=== PATIENT | female | born 1955 | race Caucasian/White ===

== ENCOUNTER 2021-10-13 12:06 | Outpatient (CLI) | payer OTHER, SELFPAY | END 2021-10-13 12:07 | disposition home or self-care (01) | LOC: CHSLAB 12:13 | PROVIDERS: PCP Internal Medicine; Visit Provider Specialist | DX: L81.4 Other melanin hyperpigmentation (principal) | CPT/HCPCS: 88305 ==

== ENCOUNTER 2022-08-26 01:00 | Inpatient (IN) | payer MEDICARE, OTHER, SELFPAY ==
[2022-08-26] VITALS (24 sets, daily range): BP systolic 103–148; BP diastolic 54–97; PULSE 78–119; RESP 16–28; TEMP 36.2–36.6; O2SAT 89–96; BMI 21.8
--- NOTE | ~2022-08-26 | XR_ITS ---
EXAMINATION: XR chest 1V portable DATE: 08/26/2022 01:20 INDICATION: Shortness of breath. TECHNIQUE: A single frontal view of the chest was obtained. COMPARISON: Chest CT 08/26/2022 FINDINGS: The chest demonstrates clear lungs without pneumonia, pleural effusion, or pneumothorax. Th e heart size is normal. IMPRESSION: 1. No acute cardiopulmonary disease. Reviewed, dictated and finalized at location A.
--- NOTE | ~2022-08-26 | CT_ITS ---
EXAMINATION: CTA chest PE protocol DATE: 08/26/2022 02:52 INDICATION: Shortness of breath. TECHNIQUE: Computed tomography angiography (CTA) of the chest was performed with 100 mL Omnipaque-350 intravenous contrast timed to evaluate the pulmonary arteries. Coronal maximum intensity projection 3D-reconstructions were created by the technologist. Automated exposure control and iterative reconst ruction technique were employed. The dose-length product was 183.77 mGy-cm. COMPARISON: Chest single view 08/26/2022 FINDINGS: There is mild emphysema. There is mild scarring at the lung apices. There is mild atelectas is bilaterally. There is material in the bronchi in the inferior lungs. No pleural effusion. The hear t size is normal. No pericardial effusion. There is no pulmonary embolus. There is kyphosis of thorac ic spine with mild chronic anterior wedging of multiple vertebral bodies and severe spondylosis. IMPRESSION: 1. No pulmonary embolus. Sensitivity is moderately decreased by motion artifact. 2. Material in bronchi in the inferior lungs, consistent with mucous plugging versus aspiration. 3. Mild emphysema. Reviewed, dictated and finalized at location A. IMPRESSION: 1. No pulmonary embolus. Sensitivity is moderately decreased by motion artifact . 2. Material in bronchi in the inferior lungs, consistent with mucous plugging v ersus aspiration. 3. Mild emphysema.
--- NOTE | 2022-08-26 01:08 | ECG_ITS ---
Measurements Intervals [place] Rate: 103 P: 76 AL: 171 QRS: 19 QRSD: 84 T: 56 QT: 357 QTc: 468 Interpretive Statements SINUS TACHYCARDIA CANNOT RULE OUT SEPTAL INFARCT, AGE INDETERMINATE BASELINE ARTIFACT- I, II, III, AVR, AVL, AVF, V1-V2, V4-V6 ABNORMAL ECG NO PREVIOUS ECG AVAILABLE FOR COMPARISON Electronically Signed On 08-26-2022 6:42:50 CDT by Ian Reyez D.O.
--- NOTE | 2022-08-26 01:13 | ED.SOB ---
HPI - SOB/Dyspnea General Chief Complaint: Shortness of Breath/Dyspnea Stated Complaint: Sob Source: patient Mode of arrival: EMS Limitations: no limitations History of Present Illness HPI Narrative: PATIENT IS A 67-YEAR-OLD WHITE FEMALE EX-SMOKER WITH EMPHYSEMA IS BROUGHT IN BY EMS COMPLAINING OF WAKING UP AT NIGHT JUST PRIOR TO ADMISSION SHORT OF BREATH WHICH SHE HAS BEEN DOING ON OFF EVERY 3 OR 4 DAYS FOR THE LAST 3 MONTHS SINCE SHE HAD SINUS SURGERY May THAT WAS CAUSING POSTNASAL DRIP AND ACUTE BRONCHITIS. PATIENT WAS BROUGHT BY EMS ROOM AIR AT HOME WAS 85% SINUS TACH ON TELEMETRY AT A RATE OF [address] ELEVATIONS PER EMS PATIENT IS PLACED ON CPAP HER O2 SAT WENT UP TO 96% SHE IS SOMEWHAT HYPERTENSIVE PER EMS SHE WAS PLACED ON A CPAP OF 5 SHE GOT ABOUT HALF OF A ALBUTEROL NEBULIZER TREATMENT AND WAS TRIPODING WHEN EMS ARRIVED AT THE HOME. SHE COMPLAINS OF CHEST PRESSURE RETROSTERNAL NONRADIATING. SHE HAS HAD A CHRONIC COUGH PRODUCTIVE OF CLEAR SPUTUM. SHE DENIES ANY HISTORY OF HEART DISEASE . SHE HAS NOT SMOKED THIS YEAR. SHE SAID YESTERDAY SHE DID FINE DURING THE DAY AND WAS NOT SHORT OF BREATH. PRIVATE MEDICAL DOCTOR IS DR. DOW. Related Data Home Medications Medication Instructions Recorded Confirmed albuterol sulfate 90 mcg/actuation 2 puff inhalation DIRECTED 08/26/22 08/26/22 aerosol inhaler amlodipine 5 mg tablet 5 mg PO DIRECTED 08/26/22 08/26/22 ipratropium 0.5 mg-albuterol 3 mg 3 ml inhalation DIRECTED 08/26/22 08/26/22 (2.5 mg base)/3 mL nebulization soln ipratropium 0.5 mg-albuterol 3 mg 3 ml inhalation QID 08/26/22 08/26/22 (2.5 mg base)/3 mL nebulization soln Allergies Allergy/AdvReac Type Severity Reaction Status Date / Time No Known Allergies Allergy Verified 08/26/22 01:20 Review of Systems Review of Systems: All systems reviewed & are unremarkable except as noted in HPI and below Constitutional: Constitutional: Reports no additional constitutional complaints Eyes: Eyes: Reports no additional eye complaints ENT: Reports system reviewed and no additional complaints, except as documented, Denies epistaxis, Reports nasal congestion and Denies sore throat Cardiovascular: Cardiovascular: Reports no additional cardiovascular complaints and Reports chest pain Respiratory: Respiratory: Reports as per HPI, Reports no additional respiratory complaints, Reports cough, Reports dyspnea and Reports wheezing Comments: ON 2 TYPES OF NEBULIZER TREATMENTS 1 SHE TAKES 4 TIMES A DAY AND ANOTHER SHE TAKES TWICE A DAY. SHE IS ALSO ON A METERED-DOSE INHALER OF ALBUTEROL. Gastrointestinal: Gastrointestinal: Reports no additional gastrointestinal complaints Genitourinary: Genitourinary: Reports no additional female genitourinary complaints Musculoskeletal: Musculoskeletal: Reports no additional musculoskeletal complaints Integumentary/Breasts: Skin/Breast: Reports system reviewed and no additional complaints, except as docu Neurologic: Reports system reviewed and no additional complaints, except as documented Psychiatric: Psychiatric: Reports no additional psychiatric complaints Hematologic/Lymphatic: Hematologic/Lymphatic: Reports no additional hematologic/lymphatic complaints PMFSH Past Medical History Medical History (Updated 08/26/22 @ 03:52 by Dane Pinto MD) Emphysema of lung Hypertension Surgical History Surgical History (Updated 08/26/22 @ 01:21 by Dane Pinto MD) Hx of sinus surgery Social History Social History (Updated 08/26/22 @ 01:43 by Dane Pinto MD) Social History: HISTORY OF SMOKING IN THE PAST Comments PATIENT HAS NOT SMOKED THIS YEAR. Exam Const: Orientation/consciousness: patient oriented x3 Limitations: no limitations Other: PATIENT IS AN ELDERLY WHITE FEMALE SHE APPEARS OLDER THAN HER STATED AGE. EYES CONJUNCTIVA PINK SCLERA NOT ICTERIC OROPHARYNX CLEAR WITH MOIST MUCOUS MEMBRANES NEC
[2022-08-26] MEDS: IPRATROPIUM 0.5 MG/ALBUTEROL SULFATE 2.5 MG AMPUL.NEB 3 ML INHALATION ×3 (01:21→23:19)
[2022-08-26 01:29] LABS: Hematocrit 43.1 % (35.0-42.0); Hemoglobin 14.4 g/dL (11.7-13.8); Mean Corpuscular HGB Conc 33.4 g/dL (32.0-36.0); Mean Corpuscular Hemoglobin 29.8 pg (27.0-31.0); Mean Platelet Volume 10.8 fl (9.2-11.8); Platelet Count Result 245 K/mm3 (150-420); Red Blood Count 4.84 M/mm3 (4.20-5.40); Red Cell Distribution Width 14.6 % (11.6-14.4); White Blood Count 8.5 K/mm3 (4.8-10.8)
[2022-08-26] MEDS: methylPREDNISolone SOD SUCC 125 MG VIAL IV PUSH (01:32)
[2022-08-26 01:44] LABS: INR 1.1; Partial Thromboplastin Time 27.1 SEC (23.90-30.70); Prothrombin Time 11.5 Seconds (9.50-12.10)
[2022-08-26 01:45] LABS: D Dimer 0.88 mg/L (0.19-0.50)
[2022-08-26] MEDS: ALBUTEROL SULFATE NEB 2.5 MG/3 ML INH 10 MG INHALATION (01:50)
[2022-08-26 01:55] LABS: Alanine Aminotransferase 15 U/L (14-59); Albumin Level 3.5 g/dL (3.4-5.0); Alkaline Phosphatase 95 U/L (46-116); Anion Gap 11 mmol/L (8-16); Aspartate Amino Transferase 18 U/L (15-37); Bilirubin,Total 0.5 mg/dL (0.00-1.00); Blood Urea Nitrogen 23 mg/dL (7-18); Carbon Dioxide 24 mmol/L (21-32); Chloride 106 mmol/L (98-108); Estimated Glomerular Filt Rate > 60; Glucose 114 mg/dL (70-99); Osmolality Calculated 296 mOsm/kg (285-295); Sodium 141 mmol/L (136-145); Troponin I 17.2 ng/L (0.00-60.4)
[2022-08-26 02:02] LABS: HCO3 ABG 21.1 mmol/L (23-29); Oxygen Content ABG 19.8 %vol (16.0-22.0); Oxygen Saturation ABG 92.2 % (95-97); Oxyhemoglobin 91.6 % (94-100); PCO2 ABG 32.1 mmHg (35-45); PO2 ABG 61.1 mmHg (75-85); Total Hemoglobin 15.4 g/dL (12.0-18.0); pH ABG 7.44 (7.35-7.45)
[2022-08-26 02:04] LABS: Modified Allen's Test Pass; Site Drawn RIGHT RADIAL
[2022-08-26 02:05] LABS: Device SIMPLE MASK
[2022-08-26 02:06] LABS: NT Pro B Type Natriuretic Pept 37 pg/mL (0-125)
[2022-08-26 02:08] LABS: Influenza A QL RT-PCR Negative (Negative); Influenza B QL RT-PCR Negative (Negative); SARS-CoV-2 RNA PCR Positive (Negative)
[2022-08-26] MEDS: LORazepam INJ (*CRX) 2 MG/ML VIAL 0.5 MG IV PUSH (02:08)
[2022-08-26] MEDS: ENOXAPARIN 100 MG/ML SYRINGE 60 MG SUB-Q (02:08)
[2022-08-26] MEDS: POTASSIUM BICARBONATE 25 MEQ TABEF 50 MEQ PO (03:10)
--- NOTE | 2022-08-26 04:22 | PC.NURSE ---
RN calls to get bed from floor charge nurse. Pt is placed into bed 209. RN also gives RN to RN report to Zara SUAREZ. Pt being prepped for transport upstairs.
--- NOTE | 2022-08-26 04:59 | PC.NURSE ---
Patient admitted to room 209 per wheelchair from the ER, is alert and oriented times 4.
[2022-08-26] MEDS: SALINE LOCK FLUSH 2 ML IV PUSH ×2 (06:07→23:40)
[2022-08-26] MEDS: ALBUTEROL SULFATE (*SP) INHALER 2 PUFF INHALATION ×4 (06:08→22:07)
--- NOTE | 2022-08-26 07:48 | PM.IMHP ---
H&P: HPI History of Present Illness Date/Time: 08/26/22 07:48 Chief Complaint: Shortness of breath, COVID-positive Narrative: This is 67-year-old female with a past medical history of emphysema according to the records show that she was brought in by EMS complaining of waking up the past few days with shortness of breath. According to patient she had nasal surgery 3 to 4 months ago and she has been waking up with postnasal drip and has had acute bronchitis. While patient was in the emergency room and with EMS was requiring CPAP and currently is on high flow oxygen due to shortness of breath. Patient has a past medical history of hypertension is a ex-smoker, acute on chronic back bronchitis. Patient states that she has been febrile she just has not feeling well, denies any nausea nor vomiting only shortness of breath especially when she goes into a coughing spell. According to records patient was tripoding and EMS while she was getting a breathing treatment only received about half. Patient is being admitted for COVID-19 she was slightly hypokalemic at 3.0 sodium 141, BUN 23, creatinine 0.81, WBCs 8.5, hemoglobin 14.4, [place] 43.1, platelet 241. I did order some troponins for patient as well as a CRP just for baseline. Patient does not require oxygen at home and currently is on 5 L nasal cannula satting around 92 to 93% high flow. Past surgical history is nasal surgery, hysterectomy. Currently stable Review of Systems Review of Systems: Shortness of breath All systems reviewed & are unremarkable except as noted in HPI and below PMFSH Past Medical History Medical History Emphysema of lung Hypertension Surgical History Surgical History Hx of sinus surgery Social History Social History Social History: HISTORY OF SMOKING IN THE PAST Smoking status: Former smoker Tobacco type: cigarettes Second hand tobacco smoke exposure: No Alcohol intake: never Substance use: never Spiritual care concerns: No Comments At time as signature, I have reviewed and agree with nursing past medical, social, surgical and family history. Please see nursing chart for further information. There is no relevant family history pertinent to the presenting complaint. Meds Home Medications and Allergies Home Medications Medication Instructions Recorded Confirmed Type albuterol sulfate 90 mcg/actuation 2 puff inhalation DIRECTED 08/26/22 08/26/22 History aerosol inhaler amlodipine 5 mg tablet 5 mg PO DIRECTED 08/26/22 08/26/22 History aspirin 81 mg capsule 81 mg PO DAILY 08/26/22 08/26/22 History famotidine 20 mg tablet 20 mg PO DAILY 08/26/22 08/26/22 History ipratropium 0.5 mg-albuterol 3 mg 3 ml inhalation DIRECTED 08/26/22 08/26/22 History (2.5 mg base)/3 mL nebulization soln ipratropium 0.5 mg-albuterol 3 mg 3 ml inhalation QID 08/26/22 08/26/22 History (2.5 mg base)/3 mL nebulization soln Allergies Allergy/AdvReac Type Severity Reaction Status Date / Time No Known Allergies Allergy Verified 08/26/22 01:20 Vital Signs Vital Signs - 24 hr 08/26/22 01:22 08/26/22 01:12 08/26/22 01:00 Temperature Pulse Rate 107 H 103 H 103 H Respiratory Rate 24 H 28 H Blood Pressure Pulse Oximetry 90 89 L Oxygen Delivery Nasal Cannula Oxygen Flow Rate 5 4 08/26/22 01:00 08/26/22 01:37 08/26/22 01:37 Temperature 97.6 F Pulse Rate 103 H 106 H 106 H Respiratory Rate 28 H 24 H Blood Pressure 120/75 Pulse Oximetry 93 91 91 Oxygen Delivery EMS-CPAP High Flow Nasal Cannula Oxygen Flow Rate 10 9 08/26/22 01:53 08/26/22 02:25 08/26/22 01:45 Temperature Pulse Rate 116 H 100 115 H Respiratory Rate 24 H 20 28 H Blood Pressure Pulse Oximetry 92 92 Oxygen Delivery High Flow Nasal Cannula Oxygen Flow R
[2022-08-26 08:30] LABS: Lactic Acid Reflex 2.2 mmol/L (0.4-2.0)
[2022-08-26 08:31] LABS: CRP < 0.5 mg/dL (0.0-0.9); Troponin I 55.3 ng/L (0.00-60.4)
[2022-08-26] MEDS: amLODIPine BESYLATE 5 MG TABLET PO (09:25)
[2022-08-26] MEDS: ASPIRIN 81 MG ENTERIC TABLET PO (09:25)
[2022-08-26] MEDS: FAMOTIDINE 20 MG TABLET PO ×2 (09:26→20:43)
[2022-08-26] MEDS: HEPARIN SODIUM 5,000 UNITS/ML VIAL 5000 UNITS SUB-Q ×2 (09:26→20:42)
[2022-08-26] MEDS: POTASSIUM CHLORIDE 20 MEQ TABLET PO (09:35)
[2022-08-26 11:10] LABS: Reflex Lactic Acid Yes or No Add Lactic
[2022-08-26 11:52] LABS: Lactic Acid 3.3 mmol/L (0.4-2.0)
--- NOTE | 2022-08-26 20:30 | PC.NURSE ---
IV site to RAC noted to be infiltrated when flush attempted, new IV site to LFA initiated, 22 gauge, by Donald SUAREZ, tolerated well. IV to RAC discontinued.
[2022-08-26] MEDS: ACETAMINOPHEN 325 MG TABLET 650 MG PO (20:43)
[2022-08-27] VITALS (19 sets, daily range): BP systolic 102–136; BP diastolic 46–78; PULSE 74–118; RESP 16–24; TEMP 36.4–36.7; O2SAT 87–99
[2022-08-27] MEDS: IPRATROPIUM 0.5 MG/ALBUTEROL SULFATE 2.5 MG AMPUL.NEB 3 ML INHALATION ×3 (05:32→19:17)
[2022-08-27] MEDS: SALINE LOCK FLUSH 2 ML IV PUSH ×3 (06:02→21:24)
[2022-08-27] MEDS: ALBUTEROL SULFATE (*SP) INHALER 2 PUFF INHALATION ×4 (06:02→21:23)
--- NOTE | 2022-08-27 06:20 | PC.NURSE ---
Venturi mask charted in error, pt utilizing simple O2 mask.
--- NOTE | 2022-08-27 07:16 | PM.IMPN ---
Progress Note: A&P Assessment and Plan (1) COVID-19 virus infection: Code(s): U07.1 - COVID-19 Status: Acute Assessment and Plan: Decadron 6 mg daily Oxygen 5 L high flow Inhalers As needed nebulizer in case patient gets in respiratory distress respiratory therapist will decide if is indicated Azithromycin prophylactically started in the emergency room I-S Cough medicine for cough Treat symptoms Heparin twice daily Troponin level and CRP for baseline Walk Study today (2) Acute exacerbation of emphysema: Code(s): J43.9 - Emphysema, unspecified Status: Acute Assessment and Plan: Decadron 6 mg daily Inhalers Nebulizer see above I-S Cough medicine for cough (3) Acute hypokalemia: Code(s): E87.6 - Hypokalemia Status: Acute Assessment and Plan: 3.0 Will replenish potassium Will monitor labs Patient on telemetry for the next 24 hours Subjective Date/time seen: 08/27/22 07:16 Interval history: Patient still requiring 7 L of oxygen but states she is feeling a lot better than yesterday patient saturations a lot better at 96% when I went in to assess patient. Patient states that she is able to cough up stuff now and feels like she is able to move a lot more air. Patient basically was wanting to go home had a long discussion about not rushing in and is staying for another day inform patient we need to do a walk study to ensure that she does not need oxygen at home especially since she is requiring so much oxygen at this time. We will continue plan of care patient needs to be up in recliner chair and continue using I-S Exam Narrative: GENERAL: Ill appearing, appears older than stated age well-nourished, and in no acute distress. HEAD:Normocephalic EYES: PERRLA ENT: Nares clear, no rhinorrhea or epistaxis. Mucous membranes moist. CHEST: Diminished to auscultation with improvement moving more air. mild distress on 7 L high flow oxygen s. HEART: Tachycardic regular rate and rhythm. . Normal peripheral pulses. ABDOMEN: Soft, nontender, nondistended, normal active bowel sounds. EXTREMITIES: Normal range of motion. No edema. SKIN: Warm, dry, no rash. NEURO: No focal deficits. Alert and oriented x3. Objective Data Vital Signs Vital Signs: Vital Signs - 24 hr 08/26/22 08:00 08/26/22 08:00 08/26/22 08:00 Temperature 97.5 F L Pulse Rate 78 89 89 Respiratory Rate 18 18 Blood Pressure 103/65 Pulse Oximetry 93 93 Oxygen Delivery Nasal Cannula Nasal Cannula Oxygen Flow Rate 5 5 08/26/22 12:00 08/26/22 12:00 08/26/22 16:57 Temperature 97.8 F Pulse Rate 100 89 91 Respiratory Rate 18 18 Blood Pressure 115/78 Pulse Oximetry 89 L 91 Oxygen Delivery High Flow Therapy with Na Oxygen Flow Rate 5 6 08/26/22 17:05 08/26/22 16:00 08/26/22 16:00 Temperature 97.8 F Pulse Rate 92 87 96 Respiratory Rate 18 20 Blood Pressure 115/69 Pulse Oximetry 96 91 Oxygen Delivery Venturi Mask Oxygen Flow Rate 6 6.5 08/26/22 20:00 08/26/22 20:00 08/26/22 20:00 Temperature 97.8 F Pulse Rate 102 H 102 H 102 H Respiratory Rate 24 H 24 H Blood Pressure 148/83 H Pulse Oximetry 93 93 Oxygen Delivery Venturi Mask Venturi Mask Oxygen Flow Rate 7 7 08/27/22 00:00 08/27/22 00:00 08/27/22 04:00 Temperature 97.6 F Pulse Rate 103 H 103 H 74 Respiratory Rate 22 H Blood Pressure 136/78 Pulse Oximetry 93 Oxygen Delivery Venturi Mask Oxygen Flow Rate 7 08/27/22 04:00 08/27/22 05:35 08/27/22 05:38 Temperature 97.5 F L Pulse Rate 74 99 99 Respiratory Rate 20 20 20 Blood Pressure 109/67 Pulse Oximetry 93 93 93 Oxygen Delivery Venturi Mask Simple Face Mask Oxygen Flow Rate 7 7 7 08/27/22 05:44 Temperature Pulse Rate 96 Respiratory Rate 20 Blood Pressure Pulse Oximetry 99 Oxygen Delivery Oxygen Flow Rate 7 Intake/Output Intake/Output: Intake & Output 08/24/22 08/25/22 08/26/22 0
[2022-08-27 07:47] LABS: Mean Corpuscular HGB Conc 33.3 g/dL (32.0-36.0); Mean Corpuscular Hemoglobin 29.9 pg (27.0-31.0); Mean Corpuscular Volume 89.7 fL (78.0-102.0); Mean Platelet Volume 10.9 fl (9.2-11.8); Platelet Count Result 219 K/mm3 (150-420); Red Blood Count 4.35 M/mm3 (4.20-5.40); Red Cell Distribution Width 14.8 % (11.6-14.4); White Blood Count 12.9 K/mm3 (4.8-10.8)
[2022-08-27 08:00] LABS: Anion Gap 6 mmol/L (8-16); Blood Urea Nitrogen 17 mg/dL (7-18); Calcium 8.5 mg/dL (8.5-10.1); Carbon Dioxide 28 mmol/L (21-32); Chloride 111 mmol/L (98-108); Estimated CRCL calculation 60 ml/min; Estimated Glomerular Filt Rate > 60; Glucose 97 mg/dL (70-99); Osmolality Calculated 301 mOsm/kg (285-295); Potassium 3.8 mmol/L (3.5-5.1); Sodium 145 mmol/L (136-145)
[2022-08-27 08:05] LABS: CRP < 0.2 mg/dL (0.0-0.9)
[2022-08-27] MEDS: POTASSIUM CHLORIDE 20 MEQ TABLET PO (08:15)
[2022-08-27] MEDS: amLODIPine BESYLATE 5 MG TABLET PO (09:30)
[2022-08-27] MEDS: HEPARIN SODIUM 5,000 UNITS/ML VIAL 5000 UNITS SUB-Q ×2 (09:34→21:23)
[2022-08-27] MEDS: ASPIRIN 81 MG ENTERIC TABLET PO (09:35)
[2022-08-27] MEDS: FAMOTIDINE 20 MG TABLET PO ×2 (09:36→21:23)
--- NOTE | 2022-08-27 09:40 | HOMEO2EVAL ---
Evaluation was performed at [facility] [place] [facility]: Home Oxygen (O2) Evaluation Start: 08/27/22 07:15 Freq: ONCE Status: Active Protocol: RPE Activity Type Activity Date Activity User E-sign Co-sign Detail Recorded Client Recorded Date Recorded By Document 08/27/22 09:00 STF [id number] 08/27/22 09:40 STF Document 08/27/22 09:02 STF [id number] 08/27/22 09:40 STF Document 08/27/22 09:03 STF [id number] 08/27/22 09:40 STF Document 08/27/22 09:04 STF [id number] 08/27/22 09:40 STF Document 08/27/22 09:08 STF [id number] 08/27/22 09:40 STF 08/27/22 08/27/22 08/27/22 09:00 09:02 09:03 Home O2 Evaluation Test Phase Resting Resting Exercise Oxygen Delivery Room Air Nasal Cannula Nasal Cannula Oxygen Flow Rate (L/min) 2 2 Pulse Oximetry (90-100 %) 87 L 90 87 L Pulse Rate (60-100 beats/min) 92 90 93 Activity Tolerance Fair Rating of Perceived Dyspnea (PD) +2 Mild, Some Difficulty, Noticeable to the Observer Rate of Perceived Exertion (PE) 12 Ambulation Distance (feet) 35 Ambulation Distance (meters) 10.66 Home Oxygen Evaluation Comments Start on 2l NC Will start walk Will increase oxygen on 2l NC O2 3l NC Treatment Charges O2 Evaluation - Inpatient 08/27/22 08/27/22 09:04 09:08 Home O2 Evaluation Test Phase Exercise Exercise Oxygen Delivery Nasal Cannula Oxygen Flow Rate (L/min) 3 4 Pulse Oximetry (90-100 %) 87 L 90 Pulse Rate (60-100 beats/min) 102 H 118 H Activity Tolerance Fair Fair Rating of Perceived Dyspnea (PD) +3 Moderate Difficulty, But Can Continue Rate of Perceived Exertion (PE) 17 Very Hard 15 Hard Ambulation Distance (feet) 40 165 Ambulation Distance (meters) 12.19 50.28 Home Oxygen Evaluation Comments Pt became very pt walked short of breath approx 275 ft with labored total. Pt breathing and stopped a few had to rest for times for 1 min. shortness of Increased O2 4l breath. /m Finished with Sats staying 88 % and above. Treatment Charges
[2022-08-28] VITALS (15 sets, daily range): BP systolic 117–166; BP diastolic 65–76; PULSE 82–104; RESP 16–22; TEMP 36.4–36.7; O2SAT 90–99
[2022-08-28] MEDS: IPRATROPIUM 0.5 MG/ALBUTEROL SULFATE 2.5 MG AMPUL.NEB 3 ML INHALATION ×4 (00:48→22:05)
[2022-08-28 05:56] LABS: Base Excess ABG -0.7 mmol/L (0-2); HCO3 ABG 24.1 mmol/L (23-29); Oxygen Content ABG 19.4 %vol (16.0-22.0); Oxygen Saturation ABG 95.4 % (95-97); Oxyhemoglobin 95.1 % (94-100); PCO2 ABG 40.4 mmHg (35-45); PO2 ABG 75.6 mmHg (75-85); Total Hemoglobin 14.5 g/dL (12.0-18.0); pH ABG 7.39 (7.35-7.45)
[2022-08-28] MEDS: ALBUTEROL SULFATE (*SP) INHALER 2 PUFF INHALATION ×4 (05:57→20:57)
[2022-08-28] MEDS: SALINE LOCK FLUSH 2 ML IV PUSH ×2 (05:58→21:12)
[2022-08-28 06:00] LABS: Basophils Absolute Auto 0.03 K/mm3 (0.00-0.10); Basophils Percent Auto 0.3 % (0.0-1.0); Eosinophils Absolute Auto 0.03 K/mm3 (0.02-0.50); Eosinophils Percent Auto 0.3 % (1.0-6.0); Hematocrit 42.7 % (35.0-42.0); Immature Granulocyte Absolute 0.11 K/mm3 (0.00-0.00); Immature Granulocyte Percent A 1.1 % (0.0-0.0); Lymphocytes Absolute Auto 2.38 K/mm3 (1.10-4.50); Lymphocytes Percent Auto 24.4 % (18.0-42.0); Mean Corpuscular HGB Conc 32.8 g/dL (32.0-36.0); Mean Corpuscular Hemoglobin 29.6 pg (27.0-31.0); Mean Corpuscular Volume 90.3 fL (78.0-102.0); Monocytes Absolute Auto 1.42 K/mm3 (0.10-0.90); Monocytes Percent Auto 14.5 % (2.0-11.0); Neutrophils Absolute Auto 5.8 K/mm3 (1.7-7.2); Neutrophils Percent Auto 59.4 % (50.0-70.0); Platelet Count Result 221 K/mm3 (150-420); Red Blood Count 4.73 M/mm3 (4.20-5.40); Red Cell Distribution Width 15.1 % (11.6-14.4); White Blood Count 9.8 K/mm3 (4.8-10.8)
[2022-08-28 06:04] LABS: Device NASAL CANNULA; Modified Allen's Test Pass; Site Drawn RIGHT RADIAL
[2022-08-28 06:10] LABS: Anion Gap 7 mmol/L (8-16); Blood Urea Nitrogen 15 mg/dL (7-18); Calcium 8.8 mg/dL (8.5-10.1); Carbon Dioxide 28 mmol/L (21-32); Chloride 109 mmol/L (98-108); Estimated CRCL calculation 62 ml/min; Estimated Glomerular Filt Rate > 60; Glucose 91 mg/dL (70-99); Osmolality Calculated 298 mOsm/kg (285-295); Potassium 3.9 mmol/L (3.5-5.1); Sodium 144 mmol/L (136-145)
[2022-08-28 06:12] LABS: CRP < 0.2 mg/dL (0.0-0.9)
[2022-08-28 06:17] LABS: Lactic Acid Reflex 1.1 mmol/L (0.4-2.0)
[2022-08-28] MEDS: ASPIRIN 81 MG ENTERIC TABLET PO (09:35)
[2022-08-28] MEDS: POTASSIUM CHLORIDE 20 MEQ TABLET PO (09:35)
[2022-08-28] MEDS: amLODIPine BESYLATE 5 MG TABLET PO (09:35)
[2022-08-28] MEDS: HEPARIN SODIUM 5,000 UNITS/ML VIAL 5000 UNITS SUB-Q ×2 (09:36→20:58)
[2022-08-28] MEDS: FAMOTIDINE 20 MG TABLET PO ×2 (09:38→20:58)
--- NOTE | 2022-08-28 10:37 | PM.IMPN ---
Progress Note: A&P Assessment and Plan (1) COVID-19 virus infection: Code(s): U07.1 - COVID-19 Status: Acute Assessment and Plan: Decadron 6 mg daily Oxygen 5 L high flow Inhalers As needed nebulizer in case patient gets in respiratory distress respiratory therapist will decide if is indicated Azithromycin prophylactically started in the emergency room I-S Cough medicine for cough Treat symptoms Heparin twice daily Troponin level and CRP for baseline Walk Study today (2) Acute exacerbation of emphysema: Code(s): J43.9 - Emphysema, unspecified Status: Acute Assessment and Plan: Decadron 6 mg daily Inhalers Nebulizer see above I-S Cough medicine for cough (3) Acute hypokalemia: Code(s): E87.6 - Hypokalemia Status: Acute Assessment and Plan: 3.0 Will replenish potassium Will monitor labs Patient on telemetry for the next 24 hours discontinue at this time Subjective Date/time seen: 08/28/22 10:37 Interval history: Patient is greatly improving and looking a lot better at this time she is on 7 L per simple mask not comfortable sending her home at this time we will like for her to be released wean down to 4 L oxygen will go home with them we will keep patient another day plan to continue breathing treatment decrease steroids and plan for discharge tomorrow. Patient is agreement with this decision Review of Systems Review of Systems: Shortness of breath All systems reviewed & are unremarkable except as noted in HPI and below Exam Narrative: GENERAL: well appearing, appears older than stated age well-nourished, and in no acute distress. HEAD:Normocephalic EYES: PERRLA ENT: Nares clear, no rhinorrhea or epistaxis. Mucous membranes moist. CHEST: Diminished to auscultation with improvement moving more air. on 7 L high flow oxygen s. HEART: Tachycardic regular rate and rhythm. . Normal peripheral pulses. ABDOMEN: Soft, nontender, nondistended, normal active bowel sounds. EXTREMITIES: Normal range of motion. No edema. SKIN: Warm, dry, no rash. NEURO: No focal deficits. Alert and oriented x3. Objective Data Vital Signs Vital Signs: Vital Signs - 24 hr 08/27/22 13:04 08/27/22 13:16 08/27/22 12:00 Temperature Pulse Rate 96 98 96 Respiratory Rate 24 H 22 H Blood Pressure Pulse Oximetry 92 95 Oxygen Delivery Oxygen Flow Rate 8 08/27/22 12:00 08/27/22 16:00 08/27/22 16:00 Temperature 97.9 F 98.1 F Pulse Rate 92 90 97 Respiratory Rate 16 20 Blood Pressure 118/70 124/74 Pulse Oximetry 94 96 Oxygen Delivery Simple Face Mask Simple Face Mask Oxygen Flow Rate 7 7 08/27/22 19:17 08/27/22 19:25 08/28/22 00:48 Temperature Pulse Rate 95 97 96 Respiratory Rate 20 19 20 Blood Pressure Pulse Oximetry 96 96 96 Oxygen Delivery Oxygen Flow Rate 7 7 7 08/27/22 20:00 08/27/22 20:00 08/28/22 00:00 Temperature 97.6 F Pulse Rate 93 93 90 Respiratory Rate 20 Blood Pressure 132/62 Pulse Oximetry 93 Oxygen Delivery Simple Face Mask Oxygen Flow Rate 7 08/28/22 00:00 08/28/22 00:58 08/28/22 04:00 Temperature 97.6 F Pulse Rate 90 95 104 H Respiratory Rate 22 H 20 Blood Pressure 166/71 H Pulse Oximetry 92 96 Oxygen Delivery Simple Face Mask Oxygen Flow Rate 7 7 08/28/22 04:00 08/28/22 08:27 08/28/22 08:40 Temperature 98.0 F Pulse Rate 104 H 90 93 Respiratory Rate 20 20 20 Blood Pressure 128/76 Pulse Oximetry 96 92 94 Oxygen Delivery Simple Face Mask Oxygen Flow Rate 7 6 08/28/22 08:00 08/28/22 08:00 Temperature 98 F Pulse Rate 89 89 Respiratory Rate 16 18 Blood Pressure 117/69 Pulse Oximetry 92 92 Oxygen Delivery Simple Face Mask Simple Face Mask Oxygen Flow Rate 7 7 Intake/Output Intake/Output: Intake & Output 08/25/22 08/26/22 08/27/22 08/28/22 23:59 23:59 23:59 23:59 Intake Total 1750 2080 700 Balance 1750 2080 700 Meds/Re
--- NOTE | 2022-08-28 12:00 | PC.NURSE ---
patient's 02 turned down from 7 to 6 lliters on nasal cannula
--- NOTE | 2022-08-28 13:33 | PC.NURSE ---
Patient's 02 was turned up to 7 lliters and patient had put facemask on again. 02 turned down to 5 liters
--- NOTE | 2022-08-28 15:36 | PC.NURSE ---
RT reports patient's O2 was turned up again and patient had face mask on becaude I' a mouth breather when I sleep RT explained need to wean off 02 and removed the mask Patient now down to 3 liters on NC
[2022-08-28] MEDS: ACETAMINOPHEN 325 MG TABLET 650 MG PO (20:58)
[2022-08-29] VITALS: BP 123/75; PULSE 86; RESP 22; TEMP 36.7; O2SAT 91
[2022-08-29 06:01] VITALS: PULSE 82; RESP 20; O2SAT 90
[2022-08-29] MEDS: IPRATROPIUM 0.5 MG/ALBUTEROL SULFATE 2.5 MG AMPUL.NEB 3 ML INHALATION ×2 (06:01→12:10)
[2022-08-29 06:16] VITALS: PULSE 85; RESP 20; O2SAT 95
[2022-08-29] MEDS: ALBUTEROL SULFATE (*SP) INHALER 2 PUFF INHALATION ×2 (06:27→10:07)
[2022-08-29] MEDS: SALINE LOCK FLUSH 2 ML IV PUSH (06:28)
[2022-08-29 08:00] VITALS: BP 137/79; PULSE 89; RESP 16; TEMP 36.6; O2SAT 91
[2022-08-29] MEDS: ASPIRIN 81 MG ENTERIC TABLET PO (09:12)
[2022-08-29] MEDS: FAMOTIDINE 20 MG TABLET PO (09:12)
[2022-08-29] MEDS: POTASSIUM CHLORIDE 20 MEQ TABLET PO (09:12)
[2022-08-29] MEDS: HEPARIN SODIUM 5,000 UNITS/ML VIAL 5000 UNITS SUB-Q (09:13)
[2022-08-29] MEDS: amLODIPine BESYLATE 5 MG TABLET PO (09:13)
--- NOTE | 2022-08-29 10:06 | PM.DS ---
DS: Admitting Diagnosis Discharge Date 08/29/2022 Admitting Diagnosis COVID , Copd Exacerbation DS: Discharge Diagnosis Discharge Diagnosis (1) COVID-19 virus infection: Code(s): U07.1 - COVID-19 Status: Acute Assessment and Plan: Decadron 6 mg daily Oxygen 5 L high flow Inhalers As needed nebulizer in case patient gets in respiratory distress respiratory therapist will decide if is indicated Azithromycin prophylactically started in the emergency room I-S Cough medicine for cough Treat symptoms Heparin twice daily Troponin level and CRP for baseline Walk Study today needs oxygen and will go home on o2 (2) Acute exacerbation of emphysema: Code(s): J43.9 - Emphysema, unspecified Status: Acute Assessment and Plan: Decadron 6 mg daily Inhalers Nebulizer see above I-S Cough medicine for cough (3) Acute hypokalemia: Code(s): E87.6 - Hypokalemia Status: Acute Assessment and Plan: 3.0 Will replenish potassium Will monitor labs Patient on telemetry for the next 24 hours discontinue at this time DS: Summary Hospital Course Reason for hospitalization: COVID, dyspnea Hospital Course: Is a 67-year-old female past medical history of COPD emphysema who was positive for COVID requiring oxygen at 1 point requiring high flow oxygen. While admitted patient received IV steroids, IV antibiotics was initially requiring CPAP and then high flow oxygen due to shortness of breath. Patient had an extended period where she was on high flow oxygen currently after a walk study requiring oxygen at home. Patient still requiring 3 to 4 L with activity. Patient is doing a lot better where she is able to go home on oral antibiotics and steroids will require nebulizer at home and portable oxygen. Patient has an extensive at time as signature, I have reviewed and agree with nursing past medical, social, surgical and family history. Please see nursing chart for further information. There is no relevant family history pertinent to the presenting complaint. Of bronchitis, hypertension, ex-smoker, chronic bronchitis. Patient is feeling a lot better and is ready for discharge vitals have remained stable patient has remained afebrile she is able to eat and drink without any difficulties. Patient's vitals are 137/79, 84, 19, 98.5, 95% on 3 L of nasal cannula. Patient's potassium is 3.9, 144 sodium BUN is 15 creatinine 0.66, glucose is 91, RBCs of 4.73, WBC is 9.8, hemoglobin is 14.0, platelets of 221 patient will discharge home follow-up with her primary care provider oxygen has been delivered stable for discharge at this time Time Spent with Patient Time attestation: Total time spent providing and/or coordinating discharge services: Exam Narrative: GENERAL: well appearing, appears older than stated age well-nourished, and in no acute distress. HEAD:Normocephalic EYES: PERRLA ENT: Nares clear, no rhinorrhea or epistaxis. Mucous membranes moist. CHEST: Diminished to auscultation with improvement moving more air. on 2L nc HEART: regular rate and rhythm. . Normal peripheral pulses. ABDOMEN: Soft, nontender, nondistended, normal active bowel sounds. EXTREMITIES: Normal range of motion. No edema. SKIN: Warm, dry, no rash. NEURO: No focal deficits. Alert and oriented x3. DS: Data Data Completed and Pending Labs on day of discharge: Preliminary micro results at discharge 08/26/22 01:25 Blood Culture - Preliminary Blood 08/26/22 01:25 Blood Culture - Preliminary Blood Discharge Plan Discharge Attending physician on discharge: Pete Fernando Consulting providers: Maria D Landa ; Ian Reyez ; Nehemias Talavera V. Discharging Clinician: Maria D Landa Anticipated Discharge Date/Time: 08/29/22 09:46 Patient Disposition: Home Health Service Activity: may shower Diet: as tolerated, regular and heart healthy Discharge Instructions: Avoid
[2022-08-29 12:10] VITALS: PULSE 83; RESP 20; O2SAT 90
[2022-08-29 12:25] VITALS: PULSE 84; RESP 19; O2SAT 95
--- NOTE | 2022-08-29 13:50 | PC.NURSE ---
Patient IV removed intact. medications and discharge instructions reviewed. reminded to schedule follow up appointment with primary doctor. Reviewed covid and guidelines and use of 02 at home transported to husbands car by wheelchair. Helped transfer to home 02 tank
--- NOTE | 2022-08-30 10:52 | PC.NURSE ---
Spouse states they received and understood the discharge instructions. Has no other comments.
== END 2022-08-29 13:40 | disposition home health service (06) | DRG 179 ==
LOC: CHSED 04:10 → CHS2ND 07:17
PROVIDERS: Nurse Practitioner Family; Admitting Provider Internal Medicine; Emergency Provider Emergency Medicine; PCP Internal Medicine; Visit Provider Internal Medicine
DX: U07.1 COVID-19 (principal); J43.9 Emphysema, unspecified; I10 Essential (primary) hypertension; E87.6 Hypokalemia; R09.02 Hypoxemia; Z87.891 Personal history of nicotine dependence
CPT/HCPCS: 36415; 36600; 71045; 71275; 80048; 80053; 82805; 83605; 83880; 84484; 85025; 85027; 85380; 85610; 85730; 86140; 87040; 87502; 93005; 94618; 94640; 96365; 96367; 96375; 97110; 97161; 97165; 99285; A9270; C9803; J0456; J0696; J1100; J1644; J1650; J2060; J2930; Q9967; U0003; U0005

== ENCOUNTER 2022-09-15 17:19 | Emergency (ER) | payer MEDICARE, OTHER, SELFPAY ==
--- NOTE | ~2022-09-15 | CT_ITS ---
EXAMINATION: CT diagnostic chest wo con DATE: 09/15/2022 19:01 INDICATION: SOB, wheezing TECHNIQUE: Computed tomography (CT) of the chest was performed with 100 mL Omnipaque-350 intravenous contrast. Automated exposure control and iterative reconstruction technique were employed. The dose-l ength product was 138.40 mGy-cm. COMPARISON: 08/26/2022. FINDINGS: CHEST: Thoracic aorta: No significant dilation or calcification. Lung parenchyma and airways: Biapical pleural scarring. Mild emphysematous change. The airways are pa tent. Bibasilar scar/atelectasis. Thoracic inlet, axillae and chest wall: No thyroid or soft tissue mass. No axillary lymphadenopathy. Mediastinum: No mass or lymphadenopathy. Heart and pericardium: Normal heart size. No pericardial effusion. Coronary artery calcifications: Mild. Pleura: No effusion or mass. Upper abdomen: No significant finding. Thoracic bones: No acute osseous finding in the chest. IMPRESSION: No acute thoracic process detected. Reviewed, dictated and finalized at location K.
[2022-09-15 17:39] VITALS: BP 133/83; PULSE 103; RESP 26; TEMP 36.8; O2SAT 93
--- NOTE | 2022-09-15 18:18 | ED.URI ---
HPI - URI/Sore Throat General Chief Complaint: Allergic Reaction Stated Complaint: in 2 weeks covid and breathing problems still havi Time Seen by Provider: 09/15/22 17:23 Source: patient, family and RN notes reviewed Mode of arrival: ambulatory Limitations: no limitations History of Present Illness MD elicited complaint: other (sob, wheezing and mild LANDRY x worse this pm.) Pertinent past history: pneumonia and COPD Onset (ago): day(s) (3) Consistency: progressively worsening Severity: mild Pain scale (0-10): 4 Able to tolerate fluids by mouth: Yes Exacerbating factors: nothing Relieving factors: nothing Associated symptoms: headache, nasal congestion and shortness of breath Treatments prior to arrival: none Related Data Home Medications Medication Instructions Recorded Confirmed amlodipine 5 mg tablet 5 mg PO DAILY 08/26/22 09/15/22 aspirin 81 mg capsule 81 mg PO DAILY 08/26/22 09/15/22 famotidine 20 mg tablet 20 mg PO DAILY 08/26/22 09/15/22 Allergies Allergy/AdvReac Type Severity Reaction Status Date / Time amoxicillin [From Augmentin] Allergy Gastrointestinal Verified 09/15/22 17:36 Upset clavulanic acid Allergy Gastrointestinal Verified 09/15/22 17:36 [From Augmentin] Upset doxycycline Allergy Back Pain Verified 09/15/22 17:36 levofloxacin Allergy Difficulty Verified 09/15/22 17:36 Breathing Review of Systems Review of Systems: All systems reviewed & are unremarkable except as noted in HPI and below Constitutional: Constitutional: Reports no additional constitutional complaints Eyes: Eyes: Reports no additional eye complaints ENT: Reports system reviewed and no additional complaints, except as documented Cardiovascular: Cardiovascular: Reports no additional cardiovascular complaints, Reports irregular heart rhythm and Reports dyspnea Respiratory: Respiratory: Reports no additional respiratory complaints, Reports dyspnea and Reports wheezing Gastrointestinal: Gastrointestinal: Reports no additional gastrointestinal complaints Genitourinary: Genitourinary: Reports no additional female genitourinary complaints Musculoskeletal: Musculoskeletal: Reports no additional musculoskeletal complaints Integumentary/Breasts: Skin/Breast: Reports system reviewed and no additional complaints, except as docu Neurologic: Reports system reviewed and no additional complaints, except as documented Psychiatric: Psychiatric: Reports no additional psychiatric complaints Endocrine: Endocrine: Reports no additional endocrine complaints Hematologic/Lymphatic: Hematologic/Lymphatic: Reports no additional hematologic/lymphatic complaints Allergic/Immunologic: Allergic/Immunologic: Reports no additional allergic/immunologic complaints PMFSH Past Medical History Medical History Acute exacerbation of emphysema Emphysema of lung Hypertension Hypoxia Surgical History Surgical History Hx of sinus surgery Social History Social History Social History: HISTORY OF SMOKING IN THE PAST Smoking status: Former smoker Tobacco type: cigarettes Second hand tobacco smoke exposure: No Alcohol intake: never Substance use: never Spiritual care concerns: No Exam Const: General: healthy appearing, no acute distress and well nourished Nutritional Appearance: well nourished Orientation/consciousness: patient oriented x3 Limitations: no limitations HENMT: Head: normal to inspection Ears: external ears normal, TM's normal bilaterally and EAC's normal Face/Nose/Sinus: Normal external nose present, Normal nares present, normal facial exam and sinuses nontender Face and sinus: normal facial exam and sinuses nontender Mouth: Yes Normal oral and palatal mucosa present and Yes moist mucous membranes Teeth and gingiva: dentition normal Throat: p
[2022-09-15 18:20] VITALS: PULSE 87; RESP 16; O2SAT 93
[2022-09-15] MEDS: IPRATROPIUM 0.5 MG/ALBUTEROL SULFATE 2.5 MG AMPUL.NEB 3 ML INHALATION (18:22)
[2022-09-15 18:31] VITALS: PULSE 86; RESP 18
[2022-09-15 18:35] LABS: Base Excess ABG -1.5 mmol/L (0-2); HCO3 ABG 21.6 mmol/L (23-29); Oxygen Content ABG 20.2 %vol (16.0-22.0); Oxygen Saturation ABG 97.1 % (95-97); Oxyhemoglobin 96.3 % (94-100); PCO2 ABG 32.1 mmHg (35-45); PO2 ABG 87.3 mmHg (75-85); Total Hemoglobin 14.9 g/dL (12.0-18.0); pH ABG 7.45 (7.35-7.45)
[2022-09-15] MEDS: ACETAMINOPHEN 325 MG TABLET 650 MG PO (18:35)
[2022-09-15] MEDS: ONDANSETRON INJ 4 MG/2 ML VIAL IV PUSH (18:35)
[2022-09-15] MEDS: methylPREDNISolone SOD SUCC 125 MG VIAL IV PUSH (18:36)
[2022-09-15] MEDS: MORPHINE SULFATE (*CRX) 2 MG/ML INJ IV PUSH (18:36)
[2022-09-15 18:38] LABS: Device ROOM AIR; Modified Allen's Test Pass; Site Drawn LEFT RADIAL
[2022-09-15 18:39] LABS: Basophils Absolute Auto 0.03 K/mm3 (0.00-0.10); Basophils Percent Auto 0.3 % (0.0-1.0); Eosinophils Absolute Auto 0.81 K/mm3 (0.02-0.50); Eosinophils Percent Auto 9.3 % (1.0-6.0); Hematocrit 42.8 % (35.0-42.0); Hemoglobin 14.3 g/dL (11.7-13.8); Immature Granulocyte Absolute 0.03 K/mm3 (0.00-0.00); Immature Granulocyte Percent A 0.3 % (0.0-0.0); Lymphocytes Absolute Auto 1.74 K/mm3 (1.10-4.50); Mean Corpuscular HGB Conc 33.4 g/dL (32.0-36.0); Mean Corpuscular Volume 89.9 fL (78.0-102.0); Mean Platelet Volume 10.5 fl (9.2-11.8); Monocytes Absolute Auto 0.77 K/mm3 (0.10-0.90); Monocytes Percent Auto 8.8 % (2.0-11.0); Neutrophils Absolute Auto 5.3 K/mm3 (1.7-7.2); Neutrophils Percent Auto 61.3 % (50.0-70.0); Platelet Count Result 256 K/mm3 (150-420); Red Blood Count 4.76 M/mm3 (4.20-5.40); Red Cell Distribution Width 14.6 % (11.6-14.4); White Blood Count 8.7 K/mm3 (4.8-10.8)
--- NOTE | 2022-09-15 18:39 | ECG_ITS ---
Measurements Intervals [place] Rate: 87 P: 78 UT: 168 QRS: 68 QRSD: 84 T: 52 QT: 366 QTc: 441 Interpretive Statements SINUS RHYTHM ANTEROSEPTAL MYOCARDIAL INFARCTION , OF INDETERMINATE AGE [40+ ms Q WAVE IN V1-V4] ABNORMAL ECG COMPARED TO ECG 08/26/2022 01:12:01 SINUS RHYTHM NOW PRESENT Electronically Signed On 09-16-2022 9:33:52 CDT by Dane Vicente M.D.
[2022-09-15 18:53] LABS: Alanine Aminotransferase 16 U/L (14-59); Albumin Level 3.2 g/dL (3.4-5.0); Alkaline Phosphatase 88 U/L (46-116); Anion Gap 12 mmol/L (8-16); Aspartate Amino Transferase 16 U/L (15-37); Bilirubin,Total 0.5 mg/dL (0.00-1.00); Blood Urea Nitrogen 17 mg/dL (7-18); Calcium 9.1 mg/dL (8.5-10.1); Carbon Dioxide 24 mmol/L (21-32); Chloride 104 mmol/L (98-108); Estimated Glomerular Filt Rate > 60; Glucose 90 mg/dL (70-99); Osmolality Calculated 291 mOsm/kg (285-295); Potassium 3.7 mmol/L (3.5-5.1); Sodium 140 mmol/L (136-145); Total Protein 7.5 g/dL (6.4-8.2)
[2022-09-15 19:11] LABS: Strep Group A RT-PCR Negative (Negative)
[2022-09-15 19:13] LABS: Lactic Acid Reflex 0.9 mmol/L (0.4-2.0)
[2022-09-15 19:22] LABS: Influenza A QL RT-PCR Negative (Negative); Influenza B QL RT-PCR Negative (Negative); SARS-CoV-2 RNA PCR Positive (Negative)
[2022-09-15 19:35] VITALS: BP 109/71; PULSE 87; RESP 20; O2SAT 95
--- NOTE | 2022-09-15 19:35 | PC.NURSE ---
Pt sitting in bed, no distress noted, reports breathing easier p neb tx, VSS. Pt watching TV, call parker at side.
[2022-09-15] MEDS: AZITHROMYCIN 250 MG TABLET 500 MG PO (20:35)
[2022-09-15 20:58] VITALS: BP 121/75; PULSE 73; RESP 20; TEMP 36.6; O2SAT 95
== END 2022-09-15 21:10 | disposition home or self-care (01) ==
PROVIDERS: Emergency Provider Emergency Medicine; PCP Internal Medicine
DX: U07.1 COVID-19 (principal); J43.9 Emphysema, unspecified; J40 Bronchitis, not specified as acute or chronic; Z87.891 Personal history of nicotine dependence
CPT/HCPCS: 36415; 36600; 71250; 80053; 82805; 83605; 85025; 87502; 87651; 93005; 94640; 96365; 96375; 99284; A9270; C9803; J0696; J2270; J2405; J2930; U0003; U0005

== ENCOUNTER 2022-11-25 20:55 | Observation (INO) | payer MEDICARE, OTHER, SELFPAY ==
[2022-11-25] VITALS (24 sets, daily range): BP systolic 116–138; BP diastolic 60–110; PULSE 95–127; RESP 16–41; TEMP 37.3; O2SAT 85–96
--- NOTE | ~2022-11-25 | XR_ITS ---
EXAMINATION: XR chest 1V portable DATE: 11/25/2022 21:53 INDICATION: Dyspnea. TECHNIQUE: A single frontal view of the chest was obtained. COMPARISON: Chest single view 08/26/2022, chest CT 09/15/2022 FINDINGS: The lungs are hyperexpanded, consistent with emphysema. There is mild scarring at the lung bases. No pleural effusion or pneumothorax. The heart size is normal. IMPRESSION: 1. Mild scarring at the lung bases. 2. Emphysema. Reviewed, dictated and finalized at location A. CIAN
--- NOTE | ~2022-11-25 | CT_ITS ---
Clinical Indication: Hypoxia, influenza positive CT Scan of the Chest with Contrast: Technique: Contiguous sections were acquired throughout the chest after intravenous administration of 100 cc of Omnipaque 350. Dose reduction technique was used on this scan by utilizing automated expos ure control and iterative reconstruction technique. The dose-length product (DLP) was 195.26 mGy-cm. COMPARISON: 09/15/2022 Findings: There is no evidence of any significant mediastinal, hilar or axillary lymphadenopathy. Timing of the contrast bolus is suboptimal for pulmonary embolus evaluation. No large central pulmonary embolus se en, but evaluation for smaller distal pulmonary emboli is very limited. There is no evidence of aorti c dissection or aneurysm. There is no evidence of pleural or pericardial effusion. Left basilar scarring similar to prior exam. No acute pulmonary consolidation or pulmonary nodule see n. Images through the upper abdomen reveal no abnormalities. Kyphosis of the thoracic spine present. Impression: No large central pulmonary embolus. Evaluation for smaller, more distal pulmonary emboli is limited r elated to timing of the contrast bolus. No significant pulmonary abnormality seen. Reviewed, dictated and finalized at location . T PRODUCTION ASSOCIATE Impression: No large central pulmonary embolus. Evaluation for smaller, more distal pulmona ry emboli is limited related to timing of the contrast bolus. No significant pulmonary abnormality seen.
--- NOTE | 2022-11-25 21:25 | ED.GENADULT ---
HPI - General Adult General Chief complaint: Shortness of Breath/Dyspnea Stated complaint: trouble breathing, positive for the flu Time Seen by Provider: 11/25/22 21:25 History of Present Illness HPI narrative: The patient is a 67-year-old woman with history of COPD on 2 L of oxygen at home as needed, on inhalers and nebulizer treatments. She had previously contacted COVID-19. She also has hypertension. She has had sinus surgery in the past. For the past 3 days, the patient has had upper respiratory tract infection symptoms manifested by low-grade fever, occasional wheezing, sinus drainage and congestion, and a dry cough. she went to urgent care or by testing for influenza revealed influenza A 2 days ago. COVID-19 negative. She was prescribed Tamiflu (and has completed 2 days' worth, 4 tablets), Levaquin (completed only 1 dose today), and Medrol (no doses given yet). She has started the Levaquin and took the 1st dose today. The Medrol has not been started yet, to be started tomorrow. At home, she has increased her oxygen to 3 L, saturations 92%. On arrival here, the room air saturations were 85%, 90% on 2 L, 92% on 4 L. she feels weak and tired but her main complaint is dyspnea. No abdominal pain. No chills or diaphoresis. No chest pain or abdominal pain. No nausea or vomiting. Related Data Home Medications Medication Instructions Recorded Confirmed amlodipine 5 mg tablet 5 mg PO DAILY 08/26/22 11/25/22 aspirin 81 mg capsule 81 mg PO DAILY 08/26/22 11/25/22 famotidine 20 mg tablet 20 mg PO DAILY 08/26/22 11/25/22 Allergies Allergy/AdvReac Type Severity Reaction Status Date / Time amoxicillin [From Augmentin] Allergy Dyspnea / Verified 11/25/22 22:12 SOB clavulanic acid Allergy Dyspnea / Verified 11/25/22 22:12 [From Augmentin] SOB doxycycline Allergy Back Pain Verified 11/25/22 22:12 adhesive tape AdvReac Rash Verified 11/25/22 22:12 Review of Systems Review of Systems: All systems reviewed & are unremarkable except as noted in HPI and below Constitutional: Constitutional: Reports no additional constitutional complaints, Denies anorexia, Reports body ache(s), Reports chills, Denies excessive sweating, Reports fatigue, Reports fever(s), Denies frequent falls, Denies headache(s), Reports malaise and Denies poor appetite Eyes: Eyes: Reports no additional eye complaints, Denies blurry vision, Denies change in vision, Denies irritation, Denies itchy eyes and Denies photophobia ENT: Reports system reviewed and no additional complaints, except as documented, Reports Normal hearing present, Denies change in voice, Denies dysphagia, Denies vertigo, Denies dizziness, Denies ear discharge, Denies headache(s), Denies hearing loss, Denies hoarseness, Denies nasal congestion, Denies neck pain, Reports sinus pressure, Denies sore throat and Denies throat swelling Cardiovascular: Cardiovascular: Reports no additional cardiovascular complaints, Denies chest pain, Denies syncope, Denies rapid heart rate, Denies irregular heart rhythm, Denies leg edema, Denies dyspnea and Denies slow heart rate Respiratory: Respiratory: Reports no additional respiratory complaints, Reports cough, Reports dyspnea, Denies stridor and Reports wheezing Gastrointestinal: Gastrointestinal: Reports no additional gastrointestinal complaints, Denies abdominal pain, Denies melena, Denies hematochezia, Denies dysphagia, Denies diarrhea, Denies nausea and Denies vomiting Genitourinary: Genitourinary: Denies hematuria, Denies urinary frequency, Denies dysuria, Denies flank pain and Denies urinary urgency Musculoskeletal: Musculoskeletal: Reports no additional musculoskeletal complaints, Denies abnormal gait, Denies back pain, Denies myalgias, Denies arthralgias, Denies joint swelling, Denies limited range of motion, Denies muscle cramps, Denies muscle weakness, Denies neck pain and Denies numbness Integumentary/Breasts: Skin/Breast: Reports system reviewed and
--- NOTE | 2022-11-25 21:32 | ECG_ITS ---
Measurements Intervals [place] Rate: 107 P: 71 MN: 132 QRS: 76 QRSD: 74 T: 69 QT: 334 QTc: 446 Interpretive Statements SINUS TACHYCARDIA CONSIDER PREVIOUS ANTEROSEPTAL [place] ABNORMAL RHYTHM ECG COMPARED TO ECG 09/15/2022 18:39:08 NO SIGNIFICANT CHANGE Electronically Signed On 11-26-2022 14:37:10 DATA LEAD by Josh Coppola M.D.
[2022-11-25] MEDS: methylPREDNISolone SOD SUCC 125 MG VIAL IV PUSH (21:45)
[2022-11-25] MEDS: IPRATROPIUM 0.5 MG/ALBUTEROL SULFATE 2.5 MG AMPUL.NEB 3 ML INHALATION (21:50)
--- NOTE | 2022-11-25 22:03 | PC.NURSE ---
PT HAS HAD NEB TX, BEEN PLACED ON HUMIDIFIED O2 PER AUDIO VISUAL DIRECTOR, CXR, LABS WERE OBTAINED, AND EKG COMPLETED. TO AWAIT RESULTS AT THIS TIME. AT BEDSIDE. WILL CONTINUE TO MONITOR.
[2022-11-25 22:05] LABS: Base Excess ABG 0.2 mmol/L (0-2); HCO3 ABG 23.8 mmol/L (23-29); Oxygen Content ABG 20.2 %vol (16.0-22.0); Oxygen Saturation ABG 94.2 % (95-97); Oxyhemoglobin 93.3 % (94-100); PCO2 ABG 35.9 mmHg (35-45); PO2 ABG 65.9 mmHg (75-85); Total Hemoglobin 15.4 g/dL (12.0-18.0); pH ABG 7.44 (7.35-7.45)
[2022-11-25 22:08] LABS: Basophils Absolute Auto 0.07 K/mm3 (0.00-0.10); Basophils Percent Auto 0.9 % (0.0-1.0); Eosinophils Absolute Auto 0.77 K/mm3 (0.02-0.50); Hematocrit 46.1 % (35.0-42.0); Hemoglobin 15.1 g/dL (11.7-13.8); Immature Granulocyte Absolute 0.02 K/mm3 (0.00-0.00); Immature Granulocyte Percent A 0.3 % (0.0-0.0); Lymphocytes Absolute Auto 2.56 K/mm3 (1.10-4.50); Lymphocytes Percent Auto 33.2 % (18.0-42.0); Mean Corpuscular HGB Conc 32.8 g/dL (32.0-36.0); Mean Corpuscular Hemoglobin 29.6 pg (27.0-31.0); Mean Corpuscular Volume 90.4 fL (78.0-102.0); Mean Platelet Volume 10.7 fl (9.2-11.8); Monocytes Absolute Auto 0.66 K/mm3 (0.10-0.90); Monocytes Percent Auto 8.6 % (2.0-11.0); Neutrophils Absolute Auto 3.6 K/mm3 (1.7-7.2); Platelet Count Result 238 K/mm3 (150-420); Red Cell Distribution Width 14.2 % (11.6-14.4); White Blood Count 7.7 K/mm3 (4.8-10.8)
[2022-11-25 22:10] LABS: Device NASAL CANNULA; Modified Allen's Test Pass; Site Drawn LEFT RADIAL
--- NOTE | 2022-11-25 22:16 | PC.NURSE ---
PT IS NOW SITTING BACK ON STRETCHER, TALKING WITH . PT REPORTS SHE IS ABLE TO BREATHE A LITTLE EASIER. WILL CONTINUE TO MONITOR.
[2022-11-25 22:32] LABS: D Dimer 0.81 mg/L (0.19-0.50)
--- NOTE | 2022-11-25 22:34 | PC.NURSE ---
LAB REPORTS ELEVATED D DIMER OF 0.84, ERP NOTIFIED.
[2022-11-25 22:35] LABS: Lactic Acid Reflex 1.2 mmol/L (0.4-2.0)
[2022-11-25 22:36] LABS: Alanine Aminotransferase 20 U/L (14-59); Albumin Level 3.4 g/dL (3.4-5.0); Alkaline Phosphatase 82 U/L (46-116); Anion Gap 7 mmol/L (8-16); Aspartate Amino Transferase 16 U/L (15-37); Bilirubin,Total 0.3 mg/dL (0.00-1.00); Blood Urea Nitrogen 19 mg/dL (7-18); CRP < 0.5 mg/dL (0.0-0.9); Calcium 8.6 mg/dL (8.5-10.1); Carbon Dioxide 28 mmol/L (21-32); Chloride 104 mmol/L (98-108); Estimated CRCL calculation 46 ml/min; Estimated Glomerular Filt Rate > 60; Glucose 105 mg/dL (70-99); Magnesium 1.6 mg/dL (1.8-2.4); NT Pro B Type Natriuretic Pept 29 pg/mL (0-125); Osmolality Calculated 290 mOsm/kg (285-295); Potassium 3.3 mmol/L (3.5-5.1); Sodium 139 mmol/L (136-145); Total Protein 7.7 g/dL (6.4-8.2); Troponin I 5.5 ng/L (0.00-60.4)
[2022-11-25 22:39] LABS: Strep Group A RT-PCR NOT DETECTED (Negative)
[2022-11-25 23:20] LABS: Erythrocyte Sedimentation Rate 19 mm/hr (0-20)
[2022-11-25] MEDS: POTASSIUM BICARBONATE 25 MEQ TABEF 50 MEQ PO (23:44)
[2022-11-25] MEDS: MAGNESIUM SULF 2 GM/WATER 50ML 2 GM/50 ML BAG IVPB (23:45)
--- NOTE | 2022-11-25 23:53 | PC.NURSE ---
PT TO CT AT THIS TIME. PT AND UPDATED ON PT STATUS. NAD NOTED. WILL CONTINUE TO MONITOR.
[2022-11-26] VITALS (24 sets, daily range): BP systolic 116–141; BP diastolic 60–91; PULSE 95–127; RESP 16–40; TEMP 36.1–37.1; O2SAT 91–96; BMI 21.7
--- NOTE | 2022-11-26 00:22 | PC.NURSE ---
PT RETURNS FROM CT, IS AMBULATORY TO WITH PORTABLE OXYGEN WITHOUT DISTRESS. PT REPORTS SHE IS FEELING BETTER. O2 REMAINS AT 6L AT THIS TIME. PT IS AWAITING RESULTS. WILL CONTINUE TO MONITOR.
[2022-11-26 00:31] LABS: Influenza A QL RT-PCR Negative (Negative); Influenza B QL RT-PCR Negative (Negative); SARS-CoV-2 RNA PCR Negative (Negative)
[2022-11-26 00:37] LABS: RSV RNA, RT-PCR Negative (Negative)
--- NOTE | 2022-11-26 01:44 | PC.NURSE ---
Patient admitted to room 204 from the ER, is alert and oriented times 4, no c/o pain at this time.
[2022-11-26] MEDS: IPRATROPIUM 0.5 MG/ALBUTEROL SULFATE 2.5 MG AMPUL.NEB 3 ML INHALATION ×4 (05:07→18:47)
[2022-11-26 05:17] LABS: Hematocrit 43.8 % (35.0-42.0); Hemoglobin 14.2 g/dL (11.7-13.8); Mean Corpuscular HGB Conc 32.4 g/dL (32.0-36.0); Mean Corpuscular Hemoglobin 29.2 pg (27.0-31.0); Mean Corpuscular Volume 90.1 fL (78.0-102.0); Mean Platelet Volume 10.8 fl (9.2-11.8); Platelet Count Result 243 K/mm3 (150-420); Red Blood Count 4.86 M/mm3 (4.20-5.40); White Blood Count 3.8 K/mm3 (4.8-10.8)
[2022-11-26 05:29] LABS: Band Neutrophils Percent 0 % (0-6); Basophils Percent Manual 0 % (0-1); Eosinophils Absolute Manual 0.07 K/mm3 (0.02-0.5); Eosinophils Percent Manual 2 % (1-6); Lymphocytes Absolute Manual 0.76 K/mm3 (1.1-4.5); Lymphocytes Percent Manual 20 % (18-44); Monocytes Absolute Manual 0.11 K/mm3 (0.1-0.90); Monocytes Percent Manual 3 % (3-9); Neutrophils Absolute Manual 2.85 K/mm3 (1.7-7.2); Neutrophils Percent Manual 75 % (46-73); Platelet Estimate Adequate (Adequate)
[2022-11-26 05:34] LABS: Alanine Aminotransferase 20 U/L (14-59); Albumin Level 3.1 g/dL (3.4-5.0); Alkaline Phosphatase 77 U/L (46-116); Anion Gap 6 mmol/L (8-16); Aspartate Amino Transferase 12 U/L (15-37); Bilirubin,Total 0.3 mg/dL (0.00-1.00); Blood Urea Nitrogen 14 mg/dL (7-18); Calcium 8.6 mg/dL (8.5-10.1); Carbon Dioxide 28 mmol/L (21-32); Chloride 105 mmol/L (98-108); Estimated CRCL calculation 53 ml/min; Estimated Glomerular Filt Rate > 60; Glucose 143 mg/dL (70-99); Magnesium 2.2 mg/dL (1.8-2.4); Osmolality Calculated 290 mOsm/kg (285-295); Potassium 4.4 mmol/L (3.5-5.1); Sodium 139 mmol/L (136-145); Total Protein 7.1 g/dL (6.4-8.2)
[2022-11-26] MEDS: methylPREDNISolone SOD SUCC 40 MG VIAL IV PUSH ×3 (05:38→21:08)
[2022-11-26] MEDS: amLODIPine BESYLATE 5 MG TABLET PO (08:49)
[2022-11-26] MEDS: levoFLOXacin TAB 500 MG, levoFLOXacin TAB 250 MG 750 MG PO (08:50)
[2022-11-26] MEDS: FAMOTIDINE 20 MG TABLET PO ×2 (08:50→20:04)
[2022-11-26] MEDS: ASPIRIN 81 MG ENTERIC TABLET PO (08:50)
[2022-11-26] MEDS: OSELTAMIVIR PHOSPHATE 30 MG CAPSULE PO ×2 (08:50→20:05)
--- NOTE | 2022-11-26 09:32 | PM.IMHP ---
H&P: HPI History of Present Illness Date/Time: 11/26/22 09:32 Chief Complaint: worsening shortness of breath Narrative: this is a 67-year-old female who presented to emergency department with complaints of shortness of breath. patient has a past medical history emphysema, hypertension, hypoxia, and history of COVID. According to patient for the last couple days she has had worsening shortness of breath and flu-like symptoms such as a low-grade fever, coughing, postnasal drainage and congestion. Patient notes back in May she had sinus surgery since then she has had multiple rounds of steroids antibiotics. Patient notes that her symptoms resolved within shortly returned. Patient also notes that back in July she was diagnosed with COVID and required 2 L nasal cannula at home. Patient notes that she recently told her physician that she no longer needed the oxygen. she does require 6 L nasal cannula. According to notes on arrival on room air patient sat were 85%, WBC 7.7, hemoglobin 15.1, hematocrit 46.1, platelets 238, sodium 139, potassium 3.3, BUN 19, creatinine 0.92, glucose 105, D-dimer 0.81, total bilirubin 0.3, AST 16, ALT 20, troponin 5.5, CRP less than 0.5, BNP 29, lactic acid 1.2, chest x-ray normal findings, CTA no PE noted, EKG sinus tach with heart rate of 107. patient remained in pea treated for COPD action patient. The patient denies CP, palpitation, extremity numbness, lightheadedness, dizziness, constipation, diarrhea, chills, or fever. Patient continues to complain of an uncontrollable cough with postnasal drainage and shortness of breath. Review of Systems Review of Systems: A 14 organ system Review of Systems was performed and pertinent positives included in the HPI, otherwise remaining ROS is negative. [facility] Past Medical History Medical History (Updated 11/26/22 @ 09:50 by JOSE GUADALUPE Rausch) Acute exacerbation of emphysema Emphysema of lung Hypertension Hypoxia Surgical History Surgical History Hx of sinus surgery Social History Social History Social History: HISTORY OF SMOKING IN THE PAST Smoking status: Former smoker Tobacco type: cigarettes Second hand tobacco smoke exposure: No Alcohol intake: never Substance use: never Lack of Transportation: No Lack of Food: Never True Current Housing: I Have Housing Concerned About Future Housing: No Difficulty Paying Gas/Electric Bills: No Difficulty Paying for Meds: No Currently Unemployed: No Education: Master's Degree or Higher Difficulty w/ Childcare or Family Care: No Spiritual care concerns: No Meds Home Medications and Allergies Home Medications Medication Instructions Recorded Confirmed Type amlodipine 5 mg tablet 5 mg PO DAILY 08/26/22 11/25/22 History aspirin 81 mg capsule 81 mg PO DAILY 08/26/22 11/25/22 History famotidine 20 mg tablet 20 mg PO DAILY 08/26/22 11/25/22 History acetaminophen 325 mg capsule 650 mg PO Q8H PRN pain #20 caps 09/15/22 11/25/22 Rx (Tylenol) albuterol sulfate 90 mcg/actuation 2 puff inhalation QID #8.5 grams 09/15/22 11/25/22 Rx aerosol inhaler (Ventolin HFA) methylprednisolone 4 mg tablets in 4 mg PO DAILY #21 ea 09/15/22 11/25/22 Rx a dose pack (Medrol (Jerson)) Allergies Allergy/AdvReac Type Severity Reaction Status Date / Time amoxicillin [From Augmentin] Allergy Dyspnea / Verified 11/25/22 22:12 SOB clavulanic acid Allergy Dyspnea / Verified 11/25/22 22:12 [From Augmentin] SOB doxycycline Allergy Back Pain Verified 11/25/22 22:12 adhesive tape AdvReac Rash Verified 11/25/22 22:12 Vital Signs Vital Signs - 24 hr 11/25/22 21:40 11/25/22 21:51 11/25/22 21:10 Temperature Pulse Rate 125 H 127 H 100 Respiratory Rate 20 20 Blood Pressure Pulse Oximetry 93 93 Oxygen Delivery Oxygen Flow Rate 6 6 11/25/22
[2022-11-26] MEDS: FLUTICASONE PROPIONATE 0.05% NA SPR 16 GM BTL (*BKC) 1 SPRAY NASAL ×2 (09:55→20:05)
[2022-11-26] MEDS: guaiFENesin 12 HR 600 MG TABCR 1200 MG PO ×2 (09:56→20:04)
[2022-11-26] MEDS: BENZONATATE 100 MG CAPSULE 200 MG PO ×3 (09:56→17:46)
[2022-11-26] MEDS: LORATADINE 10 MG TABLET PO (09:57)
[2022-11-26] MEDS: ALBUTEROL SULFATE (*SP) INHALER 2 PUFF INHALATION (16:04)
--- NOTE | 2022-11-26 16:13 | PC.NURSE ---
Patient used call light and stated that she was very short of breath. Application Architect Manager checked VS and SPO2 was at 90% on 6L via n/c. Application Architect Manager administered PRN albuterol inhaler, and SPO2 came up to 91% and patient's respirations were not as labored. Will continue to monitor.
--- NOTE | 2022-11-26 18:42 | PC.NURSE ---
Decreased O2 to 5L n/c in attempt to wean patient down. SPO2 stayed at 90% on 5L at this time. Patient a/o and will use call light for assistance if SOB returns.
[2022-11-26] MEDS: traZODone HCL 50 MG TABLET PO (21:08)
[2022-11-27] VITALS (8 sets, daily range): BP systolic 121; BP diastolic 59; PULSE 80–94; RESP 16–18; TEMP 36.6; O2SAT 89–92
[2022-11-27] MEDS: ALBUTEROL SULFATE (*SP) INHALER 2 PUFF INHALATION (02:45)
[2022-11-27] MEDS: methylPREDNISolone SOD SUCC 40 MG VIAL IV PUSH (05:03)
[2022-11-27 05:07] LABS: Basophils Absolute Auto 0.02 K/mm3 (0.00-0.10); Basophils Percent Auto 0.2 % (0.0-1.0); Hematocrit 40.4 % (35.0-42.0); Hemoglobin 13.3 g/dL (11.7-13.8); Immature Granulocyte Absolute 0.05 K/mm3 (0.00-0.00); Immature Granulocyte Percent A 0.4 % (0.0-0.0); Lymphocytes Absolute Auto 1.56 K/mm3 (1.10-4.50); Lymphocytes Percent Auto 13.8 % (18.0-42.0); Mean Corpuscular HGB Conc 32.9 g/dL (32.0-36.0); Mean Corpuscular Volume 91.2 fL (78.0-102.0); Mean Platelet Volume 10.8 fl (9.2-11.8); Monocytes Absolute Auto 0.88 K/mm3 (0.10-0.90); Monocytes Percent Auto 7.8 % (2.0-11.0); Neutrophils Absolute Auto 8.8 K/mm3 (1.7-7.2); Neutrophils Percent Auto 77.8 % (50.0-70.0); Platelet Count Result 221 K/mm3 (150-420); Red Blood Count 4.43 M/mm3 (4.20-5.40); Red Cell Distribution Width 14.4 % (11.6-14.4); White Blood Count 11.3 K/mm3 (4.8-10.8)
[2022-11-27 05:22] LABS: Alanine Aminotransferase 17 U/L (14-59); Albumin Level 2.9 g/dL (3.4-5.0); Alkaline Phosphatase 66 U/L (46-116); Anion Gap 5 mmol/L (8-16); Aspartate Amino Transferase 11 U/L (15-37); Bilirubin,Total 0.3 mg/dL (0.00-1.00); Blood Urea Nitrogen 17 mg/dL (7-18); Calcium 8.7 mg/dL (8.5-10.1); Carbon Dioxide 29 mmol/L (21-32); Chloride 108 mmol/L (98-108); Estimated CRCL calculation 53 ml/min; Estimated Glomerular Filt Rate > 60; Glucose 143 mg/dL (70-99); Magnesium 2.2 mg/dL (1.8-2.4); Osmolality Calculated 297 mOsm/kg (285-295); Potassium 4.5 mmol/L (3.5-5.1); Sodium 142 mmol/L (136-145); Total Protein 6.8 g/dL (6.4-8.2)
[2022-11-27] MEDS: IPRATROPIUM 0.5 MG/ALBUTEROL SULFATE 2.5 MG AMPUL.NEB 3 ML INHALATION (06:58)
[2022-11-27] MEDS: levoFLOXacin TAB 500 MG, levoFLOXacin TAB 250 MG 750 MG PO (09:20)
[2022-11-27] MEDS: FAMOTIDINE 20 MG TABLET PO (09:20)
[2022-11-27] MEDS: BENZONATATE 100 MG CAPSULE 200 MG PO (09:20)
[2022-11-27] MEDS: guaiFENesin 12 HR 600 MG TABCR 1200 MG PO (09:20)
[2022-11-27] MEDS: FLUTICASONE PROPIONATE 0.05% NA SPR 16 GM BTL (*BKC) 1 SPRAY NASAL (09:21)
[2022-11-27] MEDS: LORATADINE 10 MG TABLET PO (09:21)
[2022-11-27] MEDS: OSELTAMIVIR PHOSPHATE 30 MG CAPSULE PO (09:21)
[2022-11-27] MEDS: ASPIRIN 81 MG ENTERIC TABLET PO (09:21)
[2022-11-27] MEDS: amLODIPine BESYLATE 5 MG TABLET PO (09:21)
--- NOTE | 2022-11-27 09:27 | PM.DS ---
DS: Admitting Diagnosis Discharge Date 11/27/2022 Admitting Diagnosis COPD exacerbation DS: Discharge Diagnosis Discharge Diagnosis (1) Acute exacerbation of chronic obstructive airways disease: Code(s): J44.1 - Chronic obstructive pulmonary disease with (acute) exacerbation Status: Acute Assessment and Plan: chest x-ray indicate copd will continue duo nebulizer along with Solu-Medrol and Levaquin wbc's , CRPand lactic acid within normal limits continue supplementary oxygen will complete a home oxygen evaluation on discharge Discharge patient will discharge home instructed to use her nebulizer with solution Levaquin, Medrol pack, and supplementary oxygen patient instructed to keep sats above 88% and not to increase her oxygen more than 6 L. (2) Hypoxia: Code(s): R09.02 - Hypoxemia Status: Acute Assessment and Plan: secondary to COPD [place] to COPD patient negative for influenza, RSV and COVID (3) Viral illness: Code(s): B34.9 - Viral infection, unspecified Status: Acute Assessment and Plan: continue supportive care (4) Electrolyte imbalance: Code(s): E87.8 - Other disorders of electrolyte and fluid balance, not elsewhere classified Status: Acute Assessment and Plan: resolved potassium 3.3, magnesium 1.6 replace with supplement BMP in a.m. DS: Summary Hospital Course Reason for hospitalization: shortness breath dyspnea Hospital Course: ?this is a 67-year-old female who presented to? emergency department with complaints of shortness of breath. patient has a past medical history? emphysema, hypertension, hypoxia, and history of COVID.? According to patient for the last couple days she has had worsening shortness of breath and flu-like symptoms such as a low-grade fever, coughing, postnasal? drainage and congestion.? Patient notes back in May she had sinus surgery since then she has had multiple rounds of steroids antibiotics.? Patient notes that her symptoms resolved within shortly returned.? Patient also notes that back in July she was diagnosed with COVID and required 2 L nasal cannula at home.? Patient notes that she recently told her physician that she no longer? needed the oxygen. ? patient has decreased her oxygen use from 6>3 L she will discharge home with oxygen at 3 L. patient explained that is okay for her sats to be between 88 % and that she should not increase her oxygen above 6 L due to her COPD. Patient was prescribed Symbicort in the past unable to pay for prescription will prescribe her Advair hopes that the cause is cheaper. She will also discharge home with a nebulizer along with Tessalon Perles, guaifenesin, Levaquin, Medrol Jerson, and Flonase with nebulizer treatment.. Patient notes that her condition has much improved Discharge instructions reviewed with patient, as well as provided in writing per nursing staff. The instructions also include specific and strict return/GO TO THE ER as well as f/u information. All questions have been answered, and the patient and/or family deny any further questions with discharge and discharge plan. The patient denies CP, palpitation, extremity numbness, lightheadedness, dizziness, constipation, diarrhea, chills, or fever. Time Spent with Patient Time attestation: Total time spent providing and/or coordinating discharge services: Exam Narrative: GENERAL: This is a well-nourished, well-developed patient, in no apparent distress. HEAD: normocephalic, atraumatic. EYES: PERRL. Sclera clear/white. Vision is grossly intact. EARS: External ears normal, auditory canals clear and without drainage, TMs normal without perforation. Hearing grossly intact. NOSE: External nose normal with no obvious nasal discharge, nares without redness, no rhinorrhea. THROAT: Mucous membranes moist, posterior pharynx clear. NECK: Neck supple, non-tender without lymphadenopathy, masses or thyromegal
--- NOTE | 2022-11-27 11:35 | PC.NURSE ---
Patient discharging home. IV site removed, tip intact. Dressing applied to site. All belongings gathered together and sent home with patient. Medication returned. All discharge instructions and education reviewed with patient. Patient states understanding. Patient left floor ambulatory accompanied by . Denies any questions at discharge.
--- NOTE | 2022-12-02 11:10 | PC.NURSE ---
Pt states she received and understood her discharge instructions. Pt also states they gave me great care .
== END 2022-11-27 11:35 | disposition home or self-care (01) ==
LOC: CHSED 11-26 00:53 → CHS2ND 11-26 01:08
PROVIDERS: Admitting Provider Internal Medicine; Emergency Provider Emergency Medicine; Visit Provider Internal Medicine
DX: J44.1 Chronic obstructive pulmonary disease with (acute) exacerbation (principal); J10.1 Influenza due to other identified influenza virus with other respiratory manifestations; R09.02 Hypoxemia; E87.6 Hypokalemia; I10 Essential (primary) hypertension; Z87.891 Personal history of nicotine dependence; Z20.822 Contact with and (suspected) exposure to COVID-19; Z99.81 Dependence on supplemental oxygen
CPT/HCPCS: 36415; 36600; 71045; 71275; 80053; 82805; 83605; 83735; 83880; 84484; 85025; 85380; 85652; 86140; 87637; 87651; 93005; 94640; 96365; 96375; 96376; 99285; A9270; G0378; J2920; J2930; J3475; Q9967

== ENCOUNTER 2023-01-14 17:06 | Emergency (ER) | payer MEDICARE, OTHER, SELFPAY ==
[2023-01-14] VITALS (22 sets, daily range): BP systolic 91–137; BP diastolic 49–77; PULSE 79–113; RESP 22–44; TEMP 36.9; O2SAT 88–99
--- NOTE | ~2023-01-14 | XR_ITS ---
XR chest 1V portable 01/14/2023 18:13 Indication: Shortness of breath Procedure: AP portable chest Comparison: 11/25/2022 Findings: Heart size normal. There is mild interstitial edema. No pleural effusion or pneumothorax. N o acute osseous abnormality. Impression: 1: Mild interstitial edema. Atypical pneumonia less favored. Reviewed, dictated and finalized at location A. AZZO JOURNEYMAN Impression: 1: Mild interstitial edema. Atypical pneumonia less favored.
--- NOTE | 2023-01-14 17:11 | ED.SOB ---
HPI - SOB/Dyspnea General Chief Complaint: Shortness of Breath/Dyspnea Stated Complaint: Resp distress Time Seen by Provider: 01/14/23 17:11 History of Present Illness HPI Narrative: 67-year-old female patient with known history of COPD, home oxygen-dependent is brought to the ER by the EMS with sudden onset of of wheezing and shortness of breath that started after a few hours of patient being outdoors doing some shopping without any supplemental oxygen. She denies any fever or chills. She denies any chest pain. She denies any unusual cough. She is nON SMOKER AT THIS POINT . Related Data Home Medications Medication Instructions Recorded Confirmed amlodipine 5 mg tablet 5 mg PO DAILY 08/26/22 01/14/23 aspirin 81 mg capsule 81 mg PO DAILY 08/26/22 01/14/23 famotidine 20 mg tablet 20 mg PO DAILY 08/26/22 01/14/23 Dupixent Pen 300 mg subcut [id number] 01/14/23 01/14/23 ipratropium 0.5 mg-albuterol 3 mg 3 ml inhalation QID 01/14/23 01/14/23 (2.5 mg base)/3 mL nebulization soln mirtazapine 15 mg tablet 7.5 mg PO HS 01/14/23 01/14/23 Allergies Allergy/AdvReac Type Severity Reaction Status Date / Time amoxicillin [From Augmentin] Allergy Dyspnea / Verified 01/14/23 17:55 SOB clavulanic acid Allergy Dyspnea / Verified 01/14/23 17:55 [From Augmentin] SOB doxycycline Allergy Back Pain Verified 01/14/23 17:55 adhesive tape AdvReac Rash Verified 01/14/23 17:55 Review of Systems Review of Systems: All systems reviewed & are unremarkable except as noted in HPI and below ROS unobtainable: Yes unobtainable due to medical condition [facility] Past Medical History Medical History (Updated 11/26/22 @ 09:50 by JOSE GUADALUPE Rausch) Acute exacerbation of emphysema Emphysema of lung Hypertension Hypoxia Surgical History Surgical History Hx of sinus surgery Social History Social History Social History: HISTORY OF SMOKING IN THE PAST Smoking status: Former smoker Tobacco type: cigarettes Second hand tobacco smoke exposure: No Alcohol intake: never Substance use: never Lack of Transportation: No Lack of Food: Never True Current Housing: I Have Housing Concerned About Future Housing: No Difficulty Paying Gas/Electric Bills: No Difficulty Paying for Meds: No Currently Unemployed: No Education: Master's Degree or Higher Difficulty w/ Childcare or Family Care: No Spiritual care concerns: No Exam Narrative: Alert female patient in acute respiratory distress , sitting mostly in a tripod position, and answering questions in short syllables afebrile with a temperature of 36.9? SpO2 of 92% on non-rebreather mask and post recent DuoNeb treatment via EMS. Blood pressure 137/76. Respiratory rate is 20 2-36 heart rate is 113. HEENT appears acutely unremarkable. Neck is supple. There are no retractions and supraclavicular area. No neck pain distension is noted. Chest shows mild kyphosis. Minimal intercostal retractions are noted. Breath sounds are audible bilaterally under associated with tight wheezes throughout the lung link with some diminished breath sounds in the bases. Heart tones are rapid and regular. Abdomen is acutely benign. Extremities are within normal limits without any obvious pedal edema. Skin is warm and dry. Skin turgor is normal. Neurologic exam is grossly normal. Patient is very anxious. Course Course Emergency Course: 67-year-old female patient with known history of COPD and recent sinus sugery for nasal polyps, is brought to the ER by EMS with the sudden onset of shortness of breath and wheezing 40 minutes prior to arrival here. The patient states that she was taking a nap and felt fine and upon waking up she could not catch her breath. Initially on her arrival she denied any chest discomfort however now that she is feeling zia
[2023-01-14] MEDS: ALBUTEROL SULFATE NEB 2.5 MG/3 ML INH 10 MG INHALATION (17:23)
--- NOTE | 2023-01-14 17:24 | ECG_ITS ---
Measurements Intervals [place] Rate: 106 P: 86 ND: 180 QRS: 14 QRSD: 92 T: 69 QT: 344 QTc: 457 Interpretive Statements SINUS TACHYCARDIA BASELINE ARTIFACT ANTEROSEPTAL MYOCARDIAL INFARCTION, OF INDETERMINATE AGE ABNORMAL ECG COMPARED TO ECG 11/25/2022 21:45:10 NO SIGNIFICANT CHANGES Electronically Signed On 01-15-2023 16:26:59 INDUSTRIAL WASTE INSPECTOR by Taj Vernon M.D.
[2023-01-14] MEDS: MAGNESIUM SULF 2 GM/WATER 50ML 2 GM/50 ML BAG IVPB (17:31)
[2023-01-14] MEDS: SODIUM CHLORIDE 0.9% IV 500 ML 999 ML IV CONT (17:33)
[2023-01-14 17:54] LABS: Base Excess ABG -5.3 mmol/L (0-2); HCO3 ABG 23.4 mmol/L (23-29); Oxygen Content ABG 20.9 %vol (16.0-22.0); Oxygen Saturation ABG 94.7 % (95-97); Oxyhemoglobin 93.8 % (94-100); PCO2 ABG 57.9 mmHg (35-45); PO2 ABG 87.2 mmHg (75-85); Total Hemoglobin 15.8 g/dL (12.0-18.0); pH ABG 7.22 (7.35-7.45)
[2023-01-14 17:55] LABS: Modified Allen's Test Pass; Site Drawn LEFT RADIAL
[2023-01-14 17:56] LABS: Device SIMPLE MASK
[2023-01-14 18:02] LABS: Hematocrit 42.1 % (35.0-42.0); Hemoglobin 13.8 g/dL (11.7-13.8); Mean Corpuscular HGB Conc 32.8 g/dL (32.0-36.0); Mean Corpuscular Hemoglobin 30.1 pg (27.0-31.0); Mean Corpuscular Volume 91.9 fL (78.0-102.0); Mean Platelet Volume 10.8 fl (9.2-11.8); Platelet Count Result 241 K/mm3 (150-420); Red Blood Count 4.58 M/mm3 (4.20-5.40); Red Cell Distribution Width 13.7 % (11.6-14.4); White Blood Count 14.6 K/mm3 (4.8-10.8)
[2023-01-14 18:20] LABS: Band Neutrophils Percent 1 % (0-6); Basophils Percent Manual 0 % (0-1); Eosinophils Absolute Manual 1.31 K/mm3 (0.02-0.5); Eosinophils Percent Manual 9 % (1-6); Lymphocytes Percent Manual 37 % (18-44); Monocytes Absolute Manual 0.58 K/mm3 (0.1-0.90); Monocytes Percent Manual 4 % (3-9); Neutrophils Percent Manual 49 % (46-73); Platelet Estimate Adequate (Adequate); Total Cells Counted 100
[2023-01-14 18:21] LABS: Atypical Lymphocytes Present
[2023-01-14 18:35] LABS: Alanine Aminotransferase 18 U/L (14-59); Albumin Level 3.6 g/dL (3.4-5.0); Alkaline Phosphatase 93 U/L (46-116); Anion Gap 7 mmol/L (8-16); Aspartate Amino Transferase 18 U/L (15-37); Bilirubin,Total 0.3 mg/dL (0.00-1.00); Blood Urea Nitrogen 29 mg/dL (7-18); Calcium 8.2 mg/dL (8.5-10.1); Carbon Dioxide 28 mmol/L (21-32); Chloride 106 mmol/L (98-108); Estimated CRCL calculation 48 ml/min; Estimated Glomerular Filt Rate > 60; Glucose 162 mg/dL (70-99); Magnesium 3.2 mg/dL (1.8-2.4); NT Pro B Type Natriuretic Pept 22 pg/mL (0-125); Osmolality Calculated 301 mOsm/kg (285-295); Potassium 3.5 mmol/L (3.5-5.1); Sodium 141 mmol/L (136-145); Total Protein 7.6 g/dL (6.4-8.2)
[2023-01-14 18:36] LABS: Troponin I 114.4 ng/L (0.00-60.4)
--- NOTE | 2023-01-14 18:42 | ECG_ITS ---
Measurements Intervals [place] Rate: 100 P: 152 WA: 178 QRS: -3 QRSD: 77 T: 147 QT: 346 QTc: 448 Interpretive Statements SINUS TACHYCARDIA WANDERING BASELINE ARTIFACT POSSIBLE LEFT ATRIAL ENLARGEMENT CANNOT RULE OUT SEPTAL INFARCTION, AGE INDETERMINATE ABNORMAL ECG COMPARED TO ECG 01/14/2023 17:59:40 NO SIGNIFICANT CHANGES Electronically Signed On 01-15-2023 16:28:05 FRONTLOAD DRIVER by Taj Vernon M.D.
[2023-01-14 19:52] LABS: Troponin I 881.7 ng/L (0.00-60.4)
[2023-01-14 22:00] LABS: Troponin I 1442.9 ng/L (0.00-60.4)
--- NOTE | 2023-01-14 22:09 | ECG_ITS ---
Measurements Intervals [place] Rate: 91 P: -12 TN: 148 QRS: -6 QRSD: 89 T: 48 QT: 396 QTc: 488 Interpretive Statements SINUS RHYTHM ANTEROSEPTAL MYOCARDIAL INFARCTION, PROBABLY OLD ABNORMAL ECG COMPARED TO ECG 01/14/2023 19:10:53 HEART RATE HAS DECREASED Electronically Signed On 01-15-2023 16:28:22 RETAIL MAINTENANCE TECHNICIAN by Taj Vernon M.D.
[2023-01-14 22:42] LABS: Basophils Absolute Auto 0.04 K/mm3 (0.00-0.10); Basophils Percent Auto 0.5 % (0.0-1.0); Eosinophils Absolute Auto 0.01 K/mm3 (0.02-0.50); Eosinophils Percent Auto 0.1 % (1.0-6.0); Hematocrit 43.9 % (35.0-42.0); Immature Granulocyte Absolute 0.03 K/mm3 (0.00-0.00); Immature Granulocyte Percent A 0.4 % (0.0-0.0); Lymphocytes Absolute Auto 0.53 K/mm3 (1.10-4.50); Mean Corpuscular HGB Conc 31.9 g/dL (32.0-36.0); Mean Corpuscular Hemoglobin 29.4 pg (27.0-31.0); Mean Corpuscular Volume 92.2 fL (78.0-102.0); Mean Platelet Volume 10.5 fl (9.2-11.8); Monocytes Percent Auto 1.3 % (2.0-11.0); Neutrophils Absolute Auto 6.8 K/mm3 (1.7-7.2); Neutrophils Percent Auto 90.7 % (50.0-70.0); Platelet Count Result 228 K/mm3 (150-420); Red Blood Count 4.76 M/mm3 (4.20-5.40); Red Cell Distribution Width 13.8 % (11.6-14.4); White Blood Count 7.5 K/mm3 (4.8-10.8)
[2023-01-14] MEDS: HEPARIN SODIUM 5,000 UNITS/ML VIAL 4000 UNITS IV PUSH (22:46)
[2023-01-14] MEDS: HEPARIN SOD/D5W 100 UNITS/ML 25,000 UNITS/250 ML BAG 8 UNITS IV CONT (22:48)
[2023-01-14 22:55] LABS: Partial Thromboplastin Time 25.9 SEC (23.90-30.70); Prothrombin Time 11.1 Seconds (9.50-12.10)
[2023-01-15] VITALS (95 sets, daily range): BP systolic 82–127; BP diastolic 52–95; PULSE 67–100; RESP 16–39; TEMP 36.7; O2SAT 76–100
[2023-01-15 00:15] LABS: SARS-CoV-2 Ag Negative (Negative)
[2023-01-15] MEDS: ACETAMINOPHEN 325 MG TABLET 650 MG PO (02:49)
[2023-01-15 04:39] LABS: Basophils Absolute Auto 0.03 K/mm3 (0.00-0.10); Basophils Percent Auto 0.7 % (0.0-1.0); Hematocrit 44.7 % (35.0-42.0); Hemoglobin 13.5 g/dL (11.7-13.8); Immature Granulocyte Absolute 0.01 K/mm3 (0.00-0.00); Immature Granulocyte Percent A 0.2 % (0.0-0.0); Lymphocytes Absolute Auto 1.05 K/mm3 (1.10-4.50); Lymphocytes Percent Auto 22.8 % (18.0-42.0); Mean Corpuscular HGB Conc 30.2 g/dL (32.0-36.0); Mean Corpuscular Volume 99.3 fL (78.0-102.0); Mean Platelet Volume 10.7 fl (9.2-11.8); Monocytes Absolute Auto 0.22 K/mm3 (0.10-0.90); Monocytes Percent Auto 4.8 % (2.0-11.0); Neutrophils Absolute Auto 3.3 K/mm3 (1.7-7.2); Neutrophils Percent Auto 71.5 % (50.0-70.0); Platelet Count Result 211 K/mm3 (150-420); Red Cell Distribution Width 14.1 % (11.6-14.4); White Blood Count 4.6 K/mm3 (4.8-10.8)
[2023-01-15 04:52] LABS: Partial Thromboplastin Time 59.5 SEC (23.90-30.70)
[2023-01-15] MEDS: HEPARIN SODIUM 5,000 UNITS/ML VIAL 2500 UNITS IV PUSH (05:13)
[2023-01-15] MEDS: ALBUTEROL SULFATE NEB 2.5 MG/3 ML INH INHALATION ×3 (05:24→14:11)
[2023-01-15 06:42] LABS: Troponin I 1468.6 ng/L (0.00-60.4)
--- NOTE | 2023-01-15 07:50 | PC.NURSE ---
0730 pt placed in hospital bed pt has increased SOB with any exertion pt resting quietly voiced on complaints
[2023-01-15 09:49] LABS: Partial Thromboplastin Time 89.4 SEC (23.90-30.70)
--- NOTE | 2023-01-15 09:50 | PC.NURSE ---
0945 update report given to CNE still awaiting room assignment
[2023-01-15] MEDS: methylPREDNISolone SOD SUCC 40 MG VIAL IV PUSH (10:12)
--- NOTE | 2023-01-15 12:10 | ECG_ITS ---
Measurements Intervals [place] Rate: 88 P: 30 NM: 170 QRS: 13 QRSD: 83 T: 65 QT: 375 QTc: 456 Interpretive Statements SINUS RHYTHM ANTEROSEPTAL MYOCARDIAL INFARCTION, PROBABLY OLD ABNORMAL ECG COMPARED TO ECG 01/14/2023 22:19:49 NO SIGNIFICANT CHANGES Electronically Signed On 01-15-2023 16:30:19 HAMMER SETTER by Taj Vernon M.D.
--- NOTE | 2023-01-15 16:01 | PC.NURSE ---
Addendum entered by Ninoska Junior RN 01/15/23 16:09: NO BED AVAILABLE Original Note: 1600 SPOKE WITH MAHESH AT [facility] FOR STATUS CHECK STILL NOT BED AVAILABLE NURSE PLANT TECH NOTIFIED
--- NOTE | 2023-01-15 16:54 | PC.NURSE ---
1130 lunch given pt at [facility] [address] on N/C 3L 1700 dinner given at bedside
--- NOTE | 2023-01-21 13:22 | PC.NURSE ---
FINAL BLOOD CULTURE: No growth x 5 days, no action needed.
== END 2023-01-15 18:59 | disposition short-term general hospital (02) ==
PROVIDERS: Emergency Medicine; Emergency Provider Emergency Medicine; PCP Internal Medicine
DX: I21.4 Non-ST elevation (NSTEMI) myocardial infarction (principal); J44.1 Chronic obstructive pulmonary disease with (acute) exacerbation; I10 Essential (primary) hypertension; Z99.81 Dependence on supplemental oxygen; Z79.82 Long term (current) use of aspirin; Z20.822 Contact with and (suspected) exposure to COVID-19
CPT/HCPCS: 36415; 36600; 71045; 80053; 82805; 83735; 83880; 84484; 85025; 85380; 85610; 85730; 87040; 87426; 93005; 94640; 96361; 96365; 96366; 96367; 96375; 99285; A9270; C9803; J1644; J2920; J3475; J7040

== ENCOUNTER 2023-04-01 01:25 | Emergency (ER) | payer MEDICARE, OTHER, SELFPAY ==
[2023-04-01] VITALS (8 sets, daily range): BP systolic 139–146; BP diastolic 74–89; PULSE 89–102; RESP 20–24; TEMP 36.9–37; O2SAT 89–96
--- NOTE | ~2023-04-01 | XR_ITS ---
Portable chest x-ray Comparison: 01/14/2023 Clinical History: Shortness of breath Findings: Lungs are clear, without focal consolidation or pleural effusion. Cardiomediastinal silho uette is stable. Bones and soft tissues are unremarkable. Impression: Clear lungs. Reviewed, dictated and finalized at location . Impression: Clear lungs.
--- NOTE | 2023-04-01 01:27 | ECG_ITS ---
Measurements Intervals [place] Rate: 105 P: 33 AR: 168 QRS: 44 QRSD: 69 T: 64 QT: 325 QTc: 431 Interpretive Statements SINUS TACHYCARDIA ANTEROSEPTAL INFARCT, AGE INDETERMINATE BASELINE ARTIFACT- I, II, III, AVR, AVL, AVF ABNORMAL ECG COMPARED TO ECG 01/15/2023 12:10:42 SINUS TACHYCARDIA NOW PRESENT Electronically Signed On 04-01-2023 6:52:07 CDT by Ian Reyez D.O.
--- NOTE | 2023-04-01 01:44 | ED.SOB ---
HPI - SOB/Dyspnea General Chief Complaint: Chest Pain Stated Complaint: CP/SOB Source: patient and family Mode of arrival: ambulatory Limitations: no limitations History of Present Illness HPI Narrative: this is a 67-year-old female presents with increased shortness of breath and chest pressure started earlier this evening, patient has a productive cough with yellow sputum with no fever chills does have history of COPD/ asthma is currently a nonsmoker has a history of CAD, does use oxygen at home as needed. The patient presented with O2 sats around 89% on room air with some chest tightness with no nausea vomiting no diaphoresis. Currently no abdominal pain no diarrhea constipation. MD elicited complaint: shortness of breath, cough, pain with inspiration and chest pain Pertinent past history: COPD and asthma Onset (ago): hour(s) Timing: constant Severity: moderate Known history of: COPD and asthma Associated symptoms: chest pain, cough and wheezing Treatment prior to arrival: oxygen Related Data Home Medications Medication Instructions Recorded Confirmed amlodipine 5 mg tablet 5 mg PO DAILY 08/26/22 04/01/23 aspirin 81 mg capsule 81 mg PO DAILY 08/26/22 04/01/23 famotidine 20 mg tablet 20 mg PO DAILY 08/26/22 04/01/23 ipratropium 0.5 mg-albuterol 3 mg 3 ml inhalation QID 01/14/23 04/01/23 (2.5 mg base)/3 mL nebulization soln guaifenesin 600 mg tablet, 1,200 mg PO Q12HR PRN Cough 04/01/23 04/01/23 extended release 12 hr (Mucus Relief ER) Allergies Allergy/AdvReac Type Severity Reaction Status Date / Time amoxicillin [From Augmentin] Allergy Dyspnea / Verified 01/14/23 17:55 SOB clavulanic acid Allergy Dyspnea / Verified 01/14/23 17:55 [From Augmentin] SOB doxycycline Allergy Back Pain Verified 01/14/23 17:55 adhesive tape AdvReac Rash Verified 01/14/23 17:55 Review of Systems Review of Systems: All systems reviewed & are unremarkable except as noted in HPI and below PMFSH Past Medical History Medical History Acute exacerbation of emphysema Emphysema of lung Hypertension Hypoxia Surgical History Surgical History Hx of sinus surgery Social History Social History Social History: HISTORY OF SMOKING IN THE PAST Smoking status: Former smoker Tobacco type: cigarettes Second hand tobacco smoke exposure: No Alcohol intake: never Substance use: never Lack of Transportation: No Lack of Food: Never True Current Housing: I Have Housing Concerned About Future Housing: No Difficulty Paying Gas/Electric Bills: No Difficulty Paying for Meds: No Currently Unemployed: No Education: Master's Degree or Higher Difficulty w/ Childcare or Family Care: No Spiritual care concerns: No Exam Const: General: ill appearing Nutritional Appearance: well nourished Orientation/consciousness: patient oriented x3 Limitations: no limitations HENMT: Head: normal to inspection Eyes: Conjunctivae: conjunctivae normal Pupils: Equal, round and reactive pupils present EOM: EOMs intact bilaterally Neck: Neck: normal visual inspection Chest: Chest palpation & inspection: normal inspection of the chest Resp: Effort & Inspection: tachypneic Auscultation: wheezes and diminished lung sounds Cardio: Rate: regular rate Rhythm: regular rhythm GI: GI Palp: Yes Soft to palpation Auscultation: normal bowel sounds Skin: General skin exam: normal color Rashes: no rashes Wounds: no wounds Neuro: General: patient oriented x3 and moves all extremities Cranial nerves: Yes Nystagmus not present Speech: normal speech Gait exam (Neuro): Normal gait present Extrem: General: normal to inspection, no clubbing, cyanosis or edema, no pedal edema and edema Psych: Mental Status: mental status grossly normal Affect: normal aff
[2023-04-01] MEDS: MAGNESIUM SULF 2 GM/WATER 50ML 2 GM/50 ML BAG IVPB (01:51)
[2023-04-01] MEDS: IPRATROPIUM 0.5 MG/ALBUTEROL SULFATE 2.5 MG AMPUL.NEB 3 ML INHALATION (01:51)
[2023-04-01] MEDS: methylPREDNISolone SOD SUCC 125 MG VIAL IV PUSH (01:52)
[2023-04-01 02:14] LABS: Hematocrit 42.4 % (35.0-42.0); Hemoglobin 13.8 g/dL (11.7-13.8); Mean Corpuscular HGB Conc 32.5 g/dL (32.0-36.0); Mean Corpuscular Hemoglobin 29.2 pg (27.0-31.0); Mean Corpuscular Volume 89.8 fL (78.0-102.0); Mean Platelet Volume 10.7 fl (9.2-11.8); Platelet Count Result 269 K/mm3 (150-420); Red Blood Count 4.72 M/mm3 (4.20-5.40); Red Cell Distribution Width 14.8 % (11.6-14.4); White Blood Count 8.6 K/mm3 (4.8-10.8)
[2023-04-01 02:22] LABS: D Dimer 0.33 mg/L (0.19-0.50); Partial Thromboplastin Time 28.3 SEC (23.90-30.70); Prothrombin Time 10.9 Seconds (9.50-12.10)
[2023-04-01 02:26] LABS: Lactic Acid Reflex 0.9 mmol/L (0.4-2.0)
[2023-04-01 02:29] LABS: Band Neutrophils Percent 0 % (0-6); Basophils Absolute Manual 0.25 K/mm3 (0-0.1); Basophils Percent Manual 3 % (0-1); Eosinophils Absolute Manual 0.43 K/mm3 (0.02-0.5); Eosinophils Percent Manual 5 % (1-6); Lymphocytes Absolute Manual 3.35 K/mm3 (1.1-4.5); Lymphocytes Percent Manual 39 % (18-44); Monocytes Absolute Manual 0.94 K/mm3 (0.1-0.90); Monocytes Percent Manual 11 % (3-9); Neutrophils Absolute Manual 3.61 K/mm3 (1.7-7.2); Neutrophils Percent Manual 42 % (46-73); Platelet Estimate Adequate (Adequate)
[2023-04-01 02:30] LABS: Alanine Aminotransferase 18 U/L (14-59); Albumin Level 3.6 g/dL (3.4-5.0); Alkaline Phosphatase 77 U/L (46-116); Anion Gap 9 mmol/L (8-16); Aspartate Amino Transferase 17 U/L (15-37); Bilirubin,Total 0.4 mg/dL (0.00-1.00); Blood Urea Nitrogen 22 mg/dL (7-18); Calcium 8.6 mg/dL (8.5-10.1); Carbon Dioxide 27 mmol/L (21-32); Chloride 107 mmol/L (98-108); Estimated CRCL calculation 48 ml/min; Estimated Glomerular Filt Rate > 60; Glucose 100 mg/dL (70-99); Magnesium 2.1 mg/dL (1.8-2.4); NT Pro B Type Natriuretic Pept 48 pg/mL (0-125); Osmolality Calculated 299 mOsm/kg (285-295); Potassium 4.1 mmol/L (3.5-5.1); Sodium 143 mmol/L (136-145); Total Protein 7.5 g/dL (6.4-8.2); Troponin I 7.2 ng/L (0.00-60.4)
[2023-04-01 02:40] LABS: CRP < 0.5 mg/dL (0.0-0.9)
[2023-04-01 02:46] LABS: Influenza A QL RT-PCR Negative (Negative); Influenza B QL RT-PCR Negative (Negative); SARS-CoV-2 RNA PCR Negative (Negative)
[2023-04-01 02:47] LABS: RSV RNA, RT-PCR Negative (Negative)
[2023-04-01 02:59] LABS: Base Excess ABG -1.1 mmol/L (0-2); HCO3 ABG 22.9 mmol/L (23-29); Oxygen Content ABG 18.7 %vol (16.0-22.0); Oxygen Saturation ABG 93.7 % (95-97); Oxyhemoglobin 92.8 % (94-100); PCO2 ABG 36.6 mmHg (35-45); PO2 ABG 67.1 mmHg (75-85); Total Hemoglobin 14.3 g/dL (12.0-18.0); pH ABG 7.42 (7.35-7.45)
[2023-04-01 03:01] LABS: Device NASAL CANNULA; Modified Allen's Test Pass; Site Drawn RIGHT RADIAL
--- NOTE | 2023-04-07 14:06 | PC.NURSE ---
final blood culture reports x2 reviewed. no growth after 5 days no change in plan of care.
== END 2023-04-01 03:26 | disposition home or self-care (01) ==
PROVIDERS: Emergency Provider Emergency Medicine; PCP Internal Medicine
DX: J44.1 Chronic obstructive pulmonary disease with (acute) exacerbation (principal); I10 Essential (primary) hypertension; Z79.82 Long term (current) use of aspirin; Z87.891 Personal history of nicotine dependence; Z20.822 Contact with and (suspected) exposure to COVID-19
CPT/HCPCS: 36415; 36600; 71045; 80053; 82805; 83605; 83735; 83880; 84484; 85025; 85380; 85610; 85730; 86140; 87040; 87637; 93005; 96365; 96375; 99284; J2930; J3475

== ENCOUNTER 2023-04-01 19:42 | Observation (INO) | payer MEDICARE, OTHER, SELFPAY ==
[2023-04-01] VITALS (18 sets, daily range): BP systolic 104–140; BP diastolic 53–88; PULSE 95–117; RESP 16–30; TEMP 36.8–36.9; O2SAT 91–100; BMI 22.2
--- NOTE | ~2023-04-01 | XR_ITS ---
EXAMINATION: XR chest 1V portable Exam Date/Time: 04/01/2023 20:10 CDT HISTORY: COPD exacerbation shortness of breath Comparison: 04/01/2023. RESULT: Lines, tubes, and devices: None. Lungs and pleura: Increased diffuse reticulonodular opacities with stable cuffing. No focal consolid ation Cardiomediastinal silhouette: Stable. Other: No acute osseous or upper abdominal finding. IMPRESSION: Pulmonary opacities may represent respiratory bronchitis versus residual edema. Reviewed, dictated and finalized at location K.
--- NOTE | 2023-04-01 19:50 | ECG_ITS ---
Measurements Intervals [place] Rate: 111 P: 77 TN: 204 QRS: 54 QRSD: 68 T: 61 QT: 322 QTc: 438 Interpretive Statements SINUS TACHYCARDIA CANNOT RULE OUT SEPTAL INFARCT, AGE INDETERMINATE BASELINE ARTIFACT- I, II, III, AVR, AVL, AVF, V1-V6 ABNORMAL ECG COMPARED TO ECG 04/01/2023 01:35:04 NO SIGNIFICANT CHANGES Electronically Signed On 04-01-2023 21:21:01 CDT by Ian Reyez D.O.
[2023-04-01 19:58] LABS: Hematocrit 39.5 % (35.0-42.0); Hemoglobin 12.8 g/dL (11.7-13.8); Mean Corpuscular HGB Conc 32.4 g/dL (32.0-36.0); Mean Corpuscular Hemoglobin 28.9 pg (27.0-31.0); Mean Corpuscular Volume 89.2 fL (78.0-102.0); Mean Platelet Volume 10.8 fl (9.2-11.8); Platelet Count Result 257 K/mm3 (150-420); Red Blood Count 4.43 M/mm3 (4.20-5.40); Red Cell Distribution Width 14.8 % (11.6-14.4); White Blood Count 8.9 K/mm3 (4.8-10.8)
--- NOTE | 2023-04-01 20:02 | ED.GENADULT ---
HPI - General Adult General Chief complaint: Shortness of Breath/Dyspnea Stated complaint: SOB Source: patient and family Mode of arrival: EMS Limitations: no limitations History of Present Illness HPI narrative: patient is a 67-year-old COPD patient with asthma was seen in the emergency room early this morning discharge about 16 hours ago with a diagnosis of COPD exacerbation but she was feeling better since discharge with prednisone and a Z-Jerson she is brought by EMS when she started having more increasing shortness of breath at 6:00 p.m. she when they arrive she had 2 L of oxygen on her sat was 94% sinus tachycardia 120 on the monitor she was given a DuoNeb for her respiratory distress she was tripoding she got better sats 97% blood pressure 143/76 per EMS she had had some left chest pain but now she has no pain. She said she felt fine when she left the hospital this morning. Has had some runny nose nonproductive cough no fever. Related Data Home Medications Medication Instructions Recorded Confirmed amlodipine 5 mg tablet 5 mg PO DAILY 08/26/22 04/01/23 aspirin 81 mg capsule 81 mg PO DAILY 08/26/22 04/01/23 famotidine 20 mg tablet 20 mg PO DAILY 08/26/22 04/01/23 ipratropium 0.5 mg-albuterol 3 mg 3 ml inhalation QID 01/14/23 04/01/23 (2.5 mg base)/3 mL nebulization soln guaifenesin 600 mg tablet, 1,200 mg PO Q12HR PRN Cough 04/01/23 04/01/23 extended release 12 hr (Mucus Relief ER) Allergies Allergy/AdvReac Type Severity Reaction Status Date / Time amoxicillin [From Augmentin] Allergy Dyspnea / Verified 01/14/23 17:55 SOB clavulanic acid Allergy Dyspnea / Verified 01/14/23 17:55 [From Augmentin] SOB doxycycline Allergy Back Pain Verified 01/14/23 17:55 adhesive tape AdvReac Rash Verified 01/14/23 17:55 PMFSH Past Medical History Medical History Acute exacerbation of emphysema Emphysema of lung Hypertension Hypoxia Surgical History Surgical History Hx of sinus surgery Social History Social History Social History: HISTORY OF SMOKING IN THE PAST Smoking status: Former smoker Tobacco type: cigarettes Second hand tobacco smoke exposure: No Alcohol intake: never Substance use: never Lack of Transportation: No Lack of Food: Never True Current Housing: I Have Housing Concerned About Future Housing: No Difficulty Paying Gas/Electric Bills: No Difficulty Paying for Meds: No Currently Unemployed: No Education: Master's Degree or Higher Difficulty w/ Childcare or Family Care: No Spiritual care concerns: No Exam Narrative: White female Moderate distress apparent distress.? she prefers to sit. Normocephalic atraumatic eyes conjunctiva pink sclera nonicteric.? Ears TMs are normal.? Oropharynx is clear with moist mucous membranes no exudates.? Neck is supple no lymphadenopathy nontender full range of motion.? Back is nontender.? Chest nontender.? Lungs Diffuse wheezing with decreased air exchange.? Heart Tachycardic and is regular rate rhythm without murmurs gallops or rubs.? Abdomen soft and nontender no hepatosplenomegaly or masses no CVA tenderness no abdominal bruits.? Extremities no cyanosis clubbing or edema.? Neurological she is alert and oriented x4 motor and sensory grossly intact.? Skin is warm and dry without lesions. Course Vital Signs Vital signs: Vital Signs Temperature 36.8 C 04/01/23 19:48 Pulse Rate 116 H 04/01/23 19:48 Respiratory Rate 30 H 04/01/23 19:48 Blood Pressure 140/88 04/01/23 19:48 Pulse Oximetry 93 04/01/23 19:48 Oxygen Delivery Room Air 04/01/23 19:48 Temperature 36.8 C 04/01/23 19:48 Pulse Rate 109 H 04/01/23 21:15 Respiratory Rate 16 04/01/23 21:15 Blood Pressure 132/65 04/01/23 21:01 Pulse Oximetry 94 04/01/23 21:15 Oxy
[2023-04-01] MEDS: IPRATROPIUM 0.5 MG/ALBUTEROL SULFATE 2.5 MG AMPUL.NEB 3 ML INHALATION ×2 (20:03→20:56)
[2023-04-01] MEDS: methylPREDNISolone SOD SUCC 125 MG VIAL IV PUSH (20:07)
[2023-04-01] MEDS: ALBUTEROL SULFATE NEB 2.5 MG/3 ML INH 5 MG (20:07)
[2023-04-01 20:18] LABS: D Dimer 0.33 mg/L (0.19-0.50); Partial Thromboplastin Time 25.9 SEC (23.90-30.70); Prothrombin Time 10.8 Seconds (9.50-12.10)
[2023-04-01 20:25] LABS: Alanine Aminotransferase 15 U/L (14-59); Albumin Level 3.6 g/dL (3.4-5.0); Alkaline Phosphatase 71 U/L (46-116); Anion Gap 12 mmol/L (8-16); Aspartate Amino Transferase 12 U/L (15-37); Bilirubin,Total 0.3 mg/dL (0.00-1.00); Blood Urea Nitrogen 29 mg/dL (7-18); Calcium 8.3 mg/dL (8.5-10.1); Carbon Dioxide 24 mmol/L (21-32); Chloride 104 mmol/L (98-108); Estimated CRCL calculation 43 ml/min; Estimated Glomerular Filt Rate 57; Glucose 163 mg/dL (70-99); Magnesium 2.3 mg/dL (1.8-2.4); NT Pro B Type Natriuretic Pept 76 pg/mL (0-125); Osmolality Calculated 299 mOsm/kg (285-295); Sodium 140 mmol/L (136-145); Total Protein 7.5 g/dL (6.4-8.2); Troponin I 4.7 ng/L (0.00-60.4)
[2023-04-01] MEDS: ONDANSETRON INJ 4 MG/2 ML VIAL IV PUSH (22:19)
--- NOTE | 2023-04-01 22:34 | ADMGEN ---
This patient, Gabbie Chris, was admitted to 2nd Floor Room 202-1. Patient oriented to hospital policies and general routines including ID bracelet, bed and alarms, visiting hours, pain management, procedures, bathroom and other care routines, personal items, smoking policy, room service/diet, and visiting hours. Information on how to activate the Rapid Response Team has been discussed. Patient are encouraged to report perceived risks to care and to ask questions if they do not understand what they are told or what they should do.
[2023-04-01] MEDS: traZODone HCL 50 MG TABLET PO (22:57)
[2023-04-02] VITALS (7 sets, daily range): BP systolic 108–115; BP diastolic 59–66; PULSE 80–94; RESP 17–19; TEMP 36.6–37.2; O2SAT 91–95
[2023-04-02] MEDS: IPRATROPIUM BR 0.02% INH SOLN 0.5 MG/2.5 ML VIAL INHALATION ×3 (00:46→18:33)
[2023-04-02] MEDS: methylPREDNISolone SOD SUCC 125 MG VIAL 80 MG IV PUSH ×3 (05:40→21:53)
--- NOTE | 2023-04-02 08:46 | PM.IMHP ---
H&P: HPI History of Present Illness Date/Time: 04/02/23 08:46 Chief Complaint: shortness of breath dyspnea Narrative: this is a 67-year-old female that presented to our emergency department due to shortness of breath and chest tightness. Patient has a past medical history of hypertension, COPD, asthma and hypoxia. Patient notes that for the last week she has been feeling tightness to her chest and like she was unable to breathe she did note that her sats has not decreased below 88%. She did come to our emergency department earlier the day of admission and was given prednisone along with azithromycin. Patient notes that she only took her prednisone x1. Later that day she started to experience chest tightness once again and said that her sats did not drop below 88% but she did come to our emergency department. patient did note that her COPD exacerbation has increased within the last 12 months. She has also had COVID which has possibly worsened her COPD along with asthma. Patient's labs were normal. Her blood gas pH 7.42 CO2 [id number] bicarb 22.9. Patient notes that her condition has improved but she still continues to feel slight chest tightness and shortness of breath. Patient wall stay for an additional day due to her history of COPD, asthma and long haul COVID, for monitoring and treatment of IV antibiotics and steroids. She will more than likely be discharged tomorrow. The patient denies , CP, palpitation, extremity numbness, lightheadedness, dizziness, constipation, diarrhea, chills, or fever. Review of Systems Review of Systems: All systems reviewed & are unremarkable except as noted in HPI and below PMFSH Past Medical History Medical History Acute exacerbation of emphysema Emphysema of lung Hypertension Hypoxia Surgical History Surgical History Hx of sinus surgery Social History Social History Social History: HISTORY OF SMOKING IN THE PAST Years smoked: 40 Smoking status: Former smoker Tobacco type: cigarettes Second hand tobacco smoke exposure: No Alcohol intake: current Drinks per week: 1 Substance use: current Substance use type: prescription drug Lack of Transportation: No Lack of Food: Never True Current Housing: I Have Housing Concerned About Future Housing: No Difficulty Paying Gas/Electric Bills: No Difficulty Paying for Meds: No Currently Unemployed: No Education: Bachelor's Degree Difficulty w/ Childcare or Family Care: No Spiritual care concerns: Yes (Vianney) Meds Home Medications and Allergies Home Medications Medication Instructions Recorded Confirmed Type amlodipine 5 mg tablet 5 mg PO DAILY 08/26/22 04/01/23 History aspirin 81 mg capsule 81 mg PO DAILY 08/26/22 04/01/23 History famotidine 20 mg tablet 20 mg PO DAILY 08/26/22 04/01/23 History albuterol sulfate 90 mcg/actuation 2 puff inhalation QID #8.5 grams 09/15/22 04/01/23 Rx aerosol inhaler (Ventolin HFA) benzonatate 100 mg capsule 200 mg PO TID PRN cough 15 days 11/27/22 04/01/23 Rx #30 caps fluticasone 250 mcg-salmeterol 50 1 inh inhalation Q12H #60 ea 11/27/22 04/01/23 Rx mcg/dose blistr powdr for inhalation (Advair Diskus) fluticasone propionate 50 1 spray intranasal Q12HR PRN 11/27/22 04/01/23 Rx mcg/actuation nasal congestion 30 days #1 g spray,suspension ipratropium 0.5 mg-albuterol 3 mg 3 ml inhalation QID 01/14/23 04/01/23 History (2.5 mg base)/3 mL nebulization soln azithromycin 250 mg tablet See Rx Instructions PO .COMPLEX #6 04/01/23 04/01/23 Rx (Zithromax Z-Jerson) tabs guaifenesin 600 mg tablet, 1,200 mg PO Q12HR PRN Cough 04/01/23 04/01/23 History extended release 12 hr (Mucus Relief ER) prednisone 20 mg tablet 20 mg PO DAILY #5 tabs 04/01/23 04/01/23 Rx Allergies All
[2023-04-02] MEDS: ENOXAPARIN 40 MG/0.4 ML SYRINGE SUB-Q (09:23)
[2023-04-02] MEDS: amLODIPine BESYLATE 5 MG TABLET PO (09:23)
[2023-04-02] MEDS: FAMOTIDINE 20 MG TABLET PO (09:23)
[2023-04-02] MEDS: ASPIRIN 81 MG CHEWABLE TABLET PO (09:23)
[2023-04-02 12:00] LABS: Glucose Point of Care 97 mg/dl (65-105)
[2023-04-02] MEDS: ALBUTEROL SULFATE (*SP) INHALER 2 PUFF INHALATION (14:20)
[2023-04-02 16:59] LABS: Glucose Point of Care 112 mg/dl (65-105)
[2023-04-02] MEDS: traZODone HCL 50 MG TABLET PO (21:56)
[2023-04-03] MEDS: IPRATROPIUM BR 0.02% INH SOLN 0.5 MG/2.5 ML VIAL INHALATION ×2 (00:22→06:12)
[2023-04-03 00:23] VITALS: PULSE 80; RESP 17; O2SAT 94
[2023-04-03 00:27] VITALS: PULSE 80; RESP 18; O2SAT 94
[2023-04-03 06:13] VITALS: PULSE 94; RESP 18; O2SAT 90
[2023-04-03] MEDS: methylPREDNISolone SOD SUCC 125 MG VIAL 80 MG IV PUSH (06:15)
[2023-04-03 06:25] VITALS: PULSE 96; RESP 18; O2SAT 90
--- NOTE | 2023-04-03 07:32 | PM.DS ---
DS: Admitting Diagnosis Discharge Date 04/03/2023 Admitting Diagnosis copd exacerbations DS: Discharge Diagnosis Discharge Diagnosis (1) Acute exacerbation of chronic obstructive pulmonary disease: Code(s): J44.1 - Chronic obstructive pulmonary disease with (acute) exacerbation Status: Acute Assessment and Plan: improved patient receiving duo nebulizer along with albuterol, azithromycin Tessalon Perles, guaifenesin and Solu-Medrol continue treatment plan oxygen as needed (2) Hypertension: Code(s): I10 - Essential (primary) hypertension Status: Acute Assessment and Plan: stable continue home medication DS: Summary Hospital Course Reason for hospitalization: copd exacerbation Hospital Course: this is a 67-year-old female that presented to our emergency department due to shortness of breath and chest tightness.? Patient has a past medical history of hypertension, COPD, asthma and hypoxia.? Patient notes that for the last week she has been feeling tightness to her chest and like she was unable to breathe she did note that her sats has not decreased below 88%.? She did come to our emergency department earlier? the day of admission and was given prednisone along with azithromycin.? Patient notes that she only took her prednisone x1.? Later that day she started to experience chest tightness once again and said that her sats did not drop below 88% but she did come to our emergency department.? patient did note that her COPD exacerbation? has increased within the last 12 months.? She has also had COVID which has possibly worsened her COPD along with asthma. Patient's labs were? normal.? Her blood gas pH 7.42 CO2 [id number] bicarb 22.9.? Patient notes that her condition has improved but she still continues to feel slight chest tightness and shortness of breath.The patient denies , CP, palpitation, extremity numbness, lightheadedness, dizziness, constipation, diarrhea, chills, or fever. Time Spent with Patient Time attestation: Total time spent providing and/or coordinating discharge services: Exam Narrative: GENERAL: This is a well-nourished, well-developed patient, in no apparent distress. HEAD: normocephalic, atraumatic. EYES: PERRL. Sclera clear/white. Vision is grossly intact. EARS: External ears normal, auditory canals clear and without drainage, TMs normal without perforation. Hearing grossly intact. NOSE: External nose normal with no obvious nasal discharge, nares without redness, no rhinorrhea. THROAT: Mucous membranes moist, posterior pharynx clear. NECK: Neck supple, non-tender without lymphadenopathy, masses or thyromegaly. CARDIOVASCULAR: Regular rate and rhythm without murmurs, gallops, or rubs. RESPIRATORY: decreased throughout GASTROINTESTINAL: Abdomen soft, non-tender, nondistended. Bowel sounds are active. No hepato-splenomegaly, or palpable masses. No guarding. SKIN: warm, intact with no suspicious lesions or rash, good texture and turgor. NEURO: awake, alert, and oriented to person, place and time. There were no obvious focal neurologic abnormalities. EXTREMITIES: Normal range of motion. No edema. No calf tenderness. DS: Data Data Completed and Pending Labs on day of discharge: Labs from last 24 hours 04/02/23 04/02/23 16:53 11:51 POC Capillary Glucose 112 H 97 Discharge Plan Discharge Attending physician on discharge: Pete Fernando Discharging Clinician: Poppy Chi Anticipated Discharge Date/Time: 04/03/23 07:29 Patient Disposition: Home, Self-Care Activity: as tolerated Diet: low sodium Discharge Instructions: Follow up with primary care physician in 1-2 weeks. Take medication as prescribed. What are the symptoms of COPD? - At first, COPD often causes no symptoms. As it gets worse it can make you: ?Feel short of breath, especially when you are moving around ?Wheeze (make a whistling or squeaking noise as you br
[2023-04-03 08:00] VITALS: BP 126/50; PULSE 77; RESP 17; TEMP 36.6; O2SAT 92
[2023-04-03] MEDS: FAMOTIDINE 20 MG TABLET PO (08:33)
[2023-04-03] MEDS: amLODIPine BESYLATE 5 MG TABLET PO (08:33)
[2023-04-03] MEDS: ASPIRIN 81 MG CHEWABLE TABLET PO (08:33)
--- NOTE | 2023-04-03 09:20 | PC.NURSE ---
Reviewed discharge instructions with patient. All questions answered. Pt sitting on bedside awaiting ride.
--- NOTE | 2023-04-06 11:39 | PC.NURSE ---
Pt states she received and understood her discharge instructions. Pt also states I had great care, the nurses were great.
== END 2023-04-03 09:40 | disposition home or self-care (01) ==
LOC: CHSED 21:53 → CHS2ND 21:59
PROVIDERS: Admitting Provider Internal Medicine; Emergency Provider Emergency Medicine; PCP Internal Medicine; Visit Provider Internal Medicine
DX: J44.1 Chronic obstructive pulmonary disease with (acute) exacerbation (principal); I10 Essential (primary) hypertension; Z79.82 Long term (current) use of aspirin
CPT/HCPCS: 36415; 36600; 71045; 80053; 82805; 82948; 83605; 83735; 83880; 84484; 85025; 85027; 85380; 85610; 85730; 86140; 87040; 87637; 93005; 94640; 96365; 96372; 96374; 96375; 96376; 99285; A9270; G0378; J0456; J1650; J2405; J2930; J3475

== ENCOUNTER 2023-04-10 20:29 | Observation (INO) | payer MEDICARE, OTHER, SELFPAY ==
[2023-04-10] VITALS (16 sets, daily range): BP systolic 106–174; BP diastolic 67–92; PULSE 91–115; RESP 20–34; TEMP 37–37.1; O2SAT 89–97; BMI 21.6
--- NOTE | ~2023-04-10 | XR_ITS ---
EXAMINATION: XR chest 1V portable Exam Date/Time: 04/10/2023 20:50 CDT HISTORY: dyspnea. COPD Comparison: 04/01/2023. RESULT: Lines, tubes, and devices: None. Lungs and pleura: Biapical pleural scarring. Senescent changes. Stable diffuse interstitial opacitie s. Cardiomediastinal silhouette: Stable. Other: No acute osseous or upper abdominal finding. IMPRESSION: Stable pulmonary opacities may represent respiratory bronchiolitis versus mild interstitial edema. Reviewed, dictated and finalized at location [facility].
--- NOTE | 2023-04-10 20:48 | ECG_ITS ---
Measurements Intervals [place] Rate: 112 P: 61 PA: 172 QRS: 57 QRSD: 67 T: 62 QT: 319 QTc: 437 Interpretive Statements SINUS TACHYCARDIA CANNOT RULE OUT SEPTAL INFARCT, AGE INDETERMINATE BASELINE ARTIFACT- I, II, III, AVR, AVL, AVF, V1-V6 ABNORMAL ECG COMPARED TO ECG 04/01/2023 20:04:44 NO SIGNIFICANT CHANGES Electronically Signed On 04-11-2023 6:38:12 CDT by Ian Reyez D.O.
--- NOTE | 2023-04-10 20:50 | ED.GENADULT ---
HPI - General Adult General Chief complaint: Shortness of Breath/Dyspnea Stated complaint: SOB Time Seen by Provider: 04/10/23 20:35 History of Present Illness HPI narrative: The patient is a 67-year-old with history of COPD from cigarette use. He is no longer smoking. She also had COVID which may have exacerbated her COPD events. She does have oxygen at home and uses 2 L as needed, not continuously. History of hypertension and myocardial infarction. She was seen here 04/01/2023 AM with COPD exacerbation; treated with Solumedrol, Duonebs, Magnesium, discharged home on Prednisone 20 mg daily and Z-lester. She re-presented to the ED later that day on 04/01/2023 in the evening, with worsening COPD symptoms. She was admitted here 04/02/2023 until 04/03/2023 with a COPD exacerbation, treated with intravenous steroids during admission. She was discharged home on azithromycin for 5 days as well as prednisone 20 mg daily for 5 days. She completed the antibiotics and steroids 2 days ago. A CXR on 04/01/2023 revealed scarring and COPD without pneumonia. For the last 2 days, the patient had been doing reasonably well. Today, 2:00 p.m., the patient had a coughing spell followed by shortness of breath and wheezing. She applied her oxygen. She took 2 nebulizer treatments. She does have chest discomfort in the substernal region, along with sharp back pain and upper back. Her symptoms have continued. She presents for further evaluation. Her oxygen saturation was 90% on room air on arrival. She denies abdominal pain or nausea or vomiting. No fevers or chills or diaphoresis. No rhinorrhea or nasal congestion. No sore throat. Related Data Home Medications Medication Instructions Recorded Confirmed amlodipine 5 mg tablet 5 mg PO DAILY 08/26/22 04/10/23 aspirin 81 mg capsule 81 mg PO DAILY 08/26/22 04/10/23 famotidine 20 mg tablet 20 mg PO DAILY 08/26/22 04/10/23 ipratropium 0.5 mg-albuterol 3 mg 3 ml inhalation QID 01/14/23 04/10/23 (2.5 mg base)/3 mL nebulization soln guaifenesin 600 mg tablet, 1,200 mg PO Q12HR PRN Cough 04/01/23 04/10/23 extended release 12 hr (Mucus Relief ER) Allergies Allergy/AdvReac Type Severity Reaction Status Date / Time amoxicillin [From Augmentin] Allergy Dyspnea / Verified 04/10/23 20:40 SOB clavulanic acid Allergy Dyspnea / Verified 04/10/23 20:40 [From Augmentin] SOB doxycycline Allergy Back Pain Verified 04/10/23 20:40 adhesive tape AdvReac Rash Verified 04/10/23 20:40 Review of Systems Review of Systems: All systems reviewed & are unremarkable except as noted in HPI and below Constitutional: Constitutional: Denies chills, Denies excessive sweating, Denies fatigue, Denies fever(s), Denies headache(s) and Denies weakness Eyes: Eyes: Denies change in vision and Denies photophobia ENT: Denies dysphagia, Denies dizziness, Denies headache(s), Denies lip swelling, Denies nasal congestion, Denies sore throat and Denies tongue swelling Cardiovascular: Cardiovascular: Reports chest pain, Denies syncope, Denies rapid heart rate and Reports dyspnea Respiratory: Respiratory: Reports cough, Reports dyspnea and Reports wheezing Gastrointestinal: Gastrointestinal: Denies abdominal pain, Denies constipation, Denies dysphagia, Denies diarrhea, Denies nausea and Denies vomiting Genitourinary: Genitourinary: Denies hematuria, Denies urinary frequency, Denies dysuria and Denies urinary urgency Musculoskeletal: Musculoskeletal: Denies back pain, Denies myalgias, Denies arthralgias, Denies joint swelling and Denies numbness Integumentary/Breasts: Skin/Breast: Denies pruritus, Denies erythema and Denies rash Neurologic: Denies confusion, Denies dizziness, Denies syncope, Denies headache(s), Denies focal weakness, Denies numbness and Denies weakness Psychiatric: Psychiatric: Denies anxiety and Denies confusion Endocrine: Endocrine: Denies excessive sweating and Denies fatigue Hematologic/Lymphat
[2023-04-10] MEDS: methylPREDNISolone SOD SUCC 125 MG VIAL IV PUSH (20:55)
[2023-04-10] MEDS: MAGNESIUM SULF 2 GM/WATER 50ML 2 GM/50 ML BAG IVPB (20:55)
[2023-04-10] MEDS: IPRATROPIUM 0.5 MG/ALBUTEROL SULFATE 2.5 MG AMPUL.NEB 3 ML INHALATION ×2 (20:58→23:23)
[2023-04-10 21:13] LABS: Base Excess ABG 0.7 mmol/L (0-2); HCO3 ABG 23.5 mmol/L (23-29); Oxygen Content ABG 18.1 %vol (16.0-22.0); Oxygen Saturation ABG 93.2 % (95-97); Oxyhemoglobin 92.6 % (94-100); PCO2 ABG 32.6 mmHg (35-45); PO2 ABG 66.5 mmHg (75-85); Total Hemoglobin 13.9 g/dL (12.0-18.0); pH ABG 7.48 (7.35-7.45)
[2023-04-10 21:18] LABS: Device NASAL CANNULA; Modified Allen's Test Pass; Site Drawn RIGHT RADIAL
[2023-04-10 21:19] LABS: Hematocrit 43.1 % (35.0-42.0); Hemoglobin 14.2 g/dL (11.7-13.8); Mean Corpuscular HGB Conc 32.9 g/dL (32.0-36.0); Mean Corpuscular Hemoglobin 29.2 pg (27.0-31.0); Mean Corpuscular Volume 88.5 fL (78.0-102.0); Mean Platelet Volume 10.3 fl (9.2-11.8); Platelet Count Result 287 K/mm3 (150-420); Red Blood Count 4.87 M/mm3 (4.20-5.40); White Blood Count 13.8 K/mm3 (4.8-10.8)
[2023-04-10 21:32] LABS: D Dimer 0.32 mg/L (0.19-0.50)
[2023-04-10 21:35] LABS: Lactic Acid Reflex 0.8 mmol/L (0.4-2.0)
[2023-04-10 21:40] LABS: Alanine Aminotransferase 18 U/L (14-59); Albumin Level 3.4 g/dL (3.4-5.0); Alkaline Phosphatase 71 U/L (46-116); Anion Gap 9 mmol/L (8-16); Aspartate Amino Transferase 15 U/L (15-37); Bilirubin,Total 0.4 mg/dL (0.00-1.00); Blood Urea Nitrogen 15 mg/dL (7-18); CRP 0.6 mg/dL (0.0-0.9); Calcium 8.5 mg/dL (8.5-10.1); Carbon Dioxide 27 mmol/L (21-32); Chloride 104 mmol/L (98-108); Estimated CRCL calculation 52 ml/min; Estimated Glomerular Filt Rate > 60; Glucose 109 mg/dL (70-99); Magnesium 3.5 mg/dL (1.8-2.4); NT Pro B Type Natriuretic Pept 40 pg/mL (0-125); Osmolality Calculated 291 mOsm/kg (285-295); Potassium 3.9 mmol/L (3.5-5.1); Sodium 140 mmol/L (136-145); Troponin I 6.9 ng/L (0.00-60.4)
[2023-04-10 22:14] LABS: Influenza A QL RT-PCR Negative (Negative); Influenza B QL RT-PCR Negative (Negative); SARS-CoV-2 RNA PCR Negative (Negative)
[2023-04-10 22:15] LABS: RSV RNA, RT-PCR Negative (Negative)
[2023-04-10 22:36] LABS: Erythrocyte Sedimentation Rate 12 mm/hr (0-20)
[2023-04-10 23:06] LABS: Band Neutrophils Percent 0 % (0-6); Basophils Absolute Manual 0.13 K/mm3 (0-0.1); Basophils Percent Manual 1 % (0-1); Eosinophils Absolute Manual 0.96 K/mm3 (0.02-0.5); Eosinophils Percent Manual 7 % (1-6); Lymphocytes Percent Manual 50 % (18-44); Monocytes Absolute Manual 0.96 K/mm3 (0.1-0.90); Monocytes Percent Manual 7 % (3-9); Neutrophils Absolute Manual 4.83 K/mm3 (1.7-7.2); Neutrophils Percent Manual 35 % (46-73); Platelet Estimate Adequate (Adequate); Schistocytes None Seen (NORMAL); Total Cells Counted 100
[2023-04-11] VITALS (17 sets, daily range): BP systolic 101–118; BP diastolic 58–76; PULSE 64–93; RESP 18–20; TEMP 36–36.6; O2SAT 92–97
[2023-04-11] MEDS: IPRATROPIUM 0.5 MG/ALBUTEROL SULFATE 2.5 MG AMPUL.NEB 3 ML INHALATION ×6 (02:18→21:27)
[2023-04-11] MEDS: methylPREDNISolone SOD SUCC 40 MG VIAL IV PUSH ×3 (06:00→21:29)
--- NOTE | 2023-04-11 07:11 | PM.IMHP ---
H&P: HPI History of Present Illness Date/Time: 04/11/23 07:11 Chief Complaint: Shortness of breath,CoPD exacerbation Narrative: Alessandro is a 67-year-old that presents to the emergency room complaining of increased shortness of breath. Patient is a nonsmoker although she says that she quit some years ago. Patient has had a several days of increased shortness of breath where she had to increase her oxygen states that she goes into these coughing spells not feeling well and seems to become more more hypoxic with inability to talk for the past couple of days. Patient since being here has received some IV steroids and breathing treatments and remained on oxygen although we increased it up for alejandra Espinosa's currently on 2 L patient does seem to have a cough that at times can be continuous. Patient's labs seem to be within normal limits patient urine is clean does not have any infection patient's chest x-ray does not show any pneumonia at this time we will continue to treat patient with some IV steroids and some breathing treatments and oxygen plan for possible discharge tomorrow morning as well keep her today so she does not need to come back to the emergency room. Patient was on antibiotics last week and some oral steroids. Review of Systems Review of Systems: coughing, shortness of breath All systems reviewed & are unremarkable except as noted in HPI and below PMFSH Past Medical History Medical History Acute exacerbation of emphysema Emphysema of lung Hypertension Hypoxia Surgical History Surgical History Hx of sinus surgery Social History Social History Social History: HISTORY OF SMOKING IN THE PAST Years smoked: 40 Smoking status: Former smoker Second hand tobacco smoke exposure: No Alcohol intake: current Drinks per week: 1 Substance use: current Substance use type: prescription drug Lack of Transportation: No Lack of Food: Never True Current Housing: I Have Housing Concerned About Future Housing: No Difficulty Paying Gas/Electric Bills: No Difficulty Paying for Meds: No Currently Unemployed: No Education: Bachelor's Degree Difficulty w/ Childcare or Family Care: No Spiritual care concerns: Yes (Vianney) Meds Home Medications and Allergies Home Medications Medication Instructions Recorded Confirmed Type amlodipine 5 mg tablet 5 mg PO DAILY 08/26/22 04/10/23 History aspirin 81 mg capsule 81 mg PO DAILY 08/26/22 04/10/23 History famotidine 20 mg tablet 20 mg PO DAILY 08/26/22 04/10/23 History albuterol sulfate 90 mcg/actuation 2 puff inhalation QID #8.5 grams 09/15/22 04/10/23 Rx aerosol inhaler (Ventolin HFA) benzonatate 100 mg capsule 200 mg PO TID PRN cough 15 days 11/27/22 04/10/23 Rx #30 caps fluticasone 250 mcg-salmeterol 50 1 inh inhalation Q12H #60 ea 11/27/22 04/10/23 Rx mcg/dose blistr powdr for inhalation (Advair Diskus) fluticasone propionate 50 1 spray intranasal Q12HR PRN 11/27/22 04/10/23 Rx mcg/actuation nasal congestion 30 days #1 g spray,suspension ipratropium 0.5 mg-albuterol 3 mg 3 ml inhalation QID 01/14/23 04/10/23 History (2.5 mg base)/3 mL nebulization soln azithromycin 250 mg tablet See Rx Instructions PO .COMPLEX #6 04/01/23 04/10/23 Rx (Zithromax Z-Jerson) tabs guaifenesin 600 mg tablet, 1,200 mg PO Q12HR PRN Cough 04/01/23 04/10/23 History extended release 12 hr (Mucus Relief ER) Allergies Allergy/AdvReac Type Severity Reaction Status Date / Time amoxicillin [From Augmentin] Allergy Dyspnea / Verified 04/10/23 20:40 SOB clavulanic acid Allergy Dyspnea / Verified 04/10/23 20:40 [From Augmentin] SOB doxycycline Allergy Back Pain Verified 04/10/23 20:40 adhesive tape AdvReac Rash Verified 04/10/23 20:40 Vital Signs Vital
[2023-04-11 08:13] LABS: Basophils Absolute Auto 0.03 K/mm3 (0.00-0.10); Basophils Percent Auto 0.5 % (0.0-1.0); Eosinophils Absolute Auto 0.01 K/mm3 (0.02-0.50); Eosinophils Percent Auto 0.2 % (1.0-6.0); Hematocrit 40.3 % (35.0-42.0); Hemoglobin 13.4 g/dL (11.7-13.8); Immature Granulocyte Absolute 0.05 K/mm3 (0.00-0.00); Immature Granulocyte Percent A 0.8 % (0.0-0.0); Lymphocytes Percent Auto 13.4 % (18.0-42.0); Mean Corpuscular HGB Conc 33.3 g/dL (32.0-36.0); Mean Corpuscular Hemoglobin 29.6 pg (27.0-31.0); Mean Platelet Volume 10.2 fl (9.2-11.8); Monocytes Absolute Auto 0.09 K/mm3 (0.10-0.90); Monocytes Percent Auto 1.5 % (2.0-11.0); Neutrophils Percent Auto 83.6 % (50.0-70.0); Platelet Count Result 248 K/mm3 (150-420); Red Blood Count 4.53 M/mm3 (4.20-5.40); Red Cell Distribution Width 14.9 % (11.6-14.4)
[2023-04-11 08:32] LABS: Alanine Aminotransferase 15 U/L (14-59); Alkaline Phosphatase 59 U/L (46-116); Anion Gap 10 mmol/L (8-16); Aspartate Amino Transferase 13 U/L (15-37); Bilirubin,Total 0.5 mg/dL (0.00-1.00); Blood Urea Nitrogen 16 mg/dL (7-18); Calcium 8.1 mg/dL (8.5-10.1); Carbon Dioxide 27 mmol/L (21-32); Chloride 103 mmol/L (98-108); Estimated CRCL calculation 45 ml/min; Estimated Glomerular Filt Rate 60; Glucose 149 mg/dL (70-99); Osmolality Calculated 294 mOsm/kg (285-295); Potassium 4.2 mmol/L (3.5-5.1); Sodium 140 mmol/L (136-145); Total Protein 6.7 g/dL (6.4-8.2)
--- NOTE | 2023-04-11 08:40 | PM.IMHP ---
H&P: HPI History of Present Illness Date/Time: 04/11/23 08:40 Chief Complaint: COPD exacerbation Narrative: this is a 67-year-old female comes in with a complaint increased shortness of breath patient has chronic obstructive pulmonary disease and has oxygen at home on 2 L. When patient came into the hospital she was requiring 4 L of oxygen and her ABGs were slightly increased with the decreased O2 saturation patient's urine was negative and chest x-ray was negative for pneumonia patient states that she had been sick for the past few days was not able to talk in complete sentences and was just feeling a lot of chest tightness. [facility] Past Medical History Medical History Acute exacerbation of emphysema Emphysema of lung Hypertension Hypoxia Surgical History Surgical History Hx of sinus surgery Social History Social History Social History: HISTORY OF SMOKING IN THE PAST Years smoked: 40 Smoking status: Former smoker Second hand tobacco smoke exposure: No Alcohol intake: current Drinks per week: 1 Substance use: current Substance use type: prescription drug Lack of Transportation: No Lack of Food: Never True Current Housing: I Have Housing Concerned About Future Housing: No Difficulty Paying Gas/Electric Bills: No Difficulty Paying for Meds: No Currently Unemployed: No Education: Bachelor's Degree Difficulty w/ Childcare or Family Care: No Spiritual care concerns: Yes (Mandaen) Meds Home Medications and Allergies Home Medications Medication Instructions Recorded Confirmed Type amlodipine 5 mg tablet 5 mg PO DAILY 08/26/22 04/10/23 History aspirin 81 mg capsule 81 mg PO DAILY 08/26/22 04/10/23 History famotidine 20 mg tablet 20 mg PO DAILY 08/26/22 04/10/23 History albuterol sulfate 90 mcg/actuation 2 puff inhalation QID #8.5 grams 09/15/22 04/10/23 Rx aerosol inhaler (Ventolin HFA) benzonatate 100 mg capsule 200 mg PO TID PRN cough 15 days 11/27/22 04/10/23 Rx #30 caps fluticasone 250 mcg-salmeterol 50 1 inh inhalation Q12H #60 ea 11/27/22 04/10/23 Rx mcg/dose blistr powdr for inhalation (Advair Diskus) fluticasone propionate 50 1 spray intranasal Q12HR PRN 11/27/22 04/10/23 Rx mcg/actuation nasal congestion 30 days #1 g spray,suspension ipratropium 0.5 mg-albuterol 3 mg 3 ml inhalation QID 01/14/23 04/10/23 History (2.5 mg base)/3 mL nebulization soln azithromycin 250 mg tablet See Rx Instructions PO .COMPLEX #6 04/01/23 04/10/23 Rx (Zithromax Z-Jerson) tabs guaifenesin 600 mg tablet, 1,200 mg PO Q12HR PRN Cough 04/01/23 04/10/23 History extended release 12 hr (Mucus Relief ER) Allergies Allergy/AdvReac Type Severity Reaction Status Date / Time amoxicillin [From Augmentin] Allergy Dyspnea / Verified 04/10/23 20:40 SOB clavulanic acid Allergy Dyspnea / Verified 04/10/23 20:40 [From Augmentin] SOB doxycycline Allergy Back Pain Verified 04/10/23 20:40 adhesive tape AdvReac Rash Verified 04/10/23 20:40 Vital Signs Vital Signs - 24 hr 04/10/23 20:30 04/10/23 20:35 04/10/23 20:46 Temperature 98.7 F Pulse Rate 115 H 113 H Respiratory Rate 32 H 34 H Blood Pressure 174/92 H Pulse Oximetry 90 93 92 Oxygen Delivery Room Air Nasal Cannula Nasal Cannula Oxygen Flow Rate 2 2 04/10/23 20:58 04/10/23 21:05 04/10/23 21:13 Temperature Pulse Rate 115 H 112 H 105 H Respiratory Rate 25 H 25 H 26 H Blood Pressure 130/72 Pulse Oximetry 94 97 90 Oxygen Delivery Nasal Cannula Oxygen Flow Rate 2 2 2 04/10/23 21:21 04/10/23 21:23 04/10/23 21:28 Temperature Pulse Rate 112 H Respiratory Rate 28 H 27 H Blood Pressure Pulse Oximetry 89 L 93 90 Oxygen Delivery Nasal Cannula Nasal Cannula Nasal Cannula Oxyg
[2023-04-11] MEDS: guaiFENesin/DEXTROMETHORPHAN 5 ML UDC PO ×2 (08:50→15:03)
[2023-04-11] MEDS: ALBUTEROL SULFATE (*SP) INHALER 2 PUFF INHALATION (17:59)
--- NOTE | 2023-04-11 19:06 | PC.NURSE ---
Ruben Landa, PROJECT ASSOCIATE/Hospitalist, notified that patient felt better after taking Alburerol inhaler.
[2023-04-12] VITALS (8 sets, daily range): BP systolic 103–109; BP diastolic 60–62; PULSE 69–91; RESP 17–20; TEMP 36.3–36.8; O2SAT 93–96
[2023-04-12] MEDS: IPRATROPIUM 0.5 MG/ALBUTEROL SULFATE 2.5 MG AMPUL.NEB 3 ML INHALATION ×3 (01:19→10:20)
[2023-04-12] MEDS: methylPREDNISolone SOD SUCC 40 MG VIAL IV PUSH (06:03)
--- NOTE | 2023-04-12 07:46 | PM.DS ---
DS: Admitting Diagnosis Discharge Date 04/12/2023 Admitting Diagnosis COPD Exacerbation DS: Discharge Diagnosis Discharge Diagnosis (1) Acute exacerbation of chronic obstructive pulmonary disease: Code(s): J44.1 - Chronic obstructive pulmonary disease with (acute) exacerbation Status: Acute Assessment and Plan: breathing treatment Oxygen @home 2l NC wean to 2l IV steroids NO antibiotics indicated at this time (2) Electrolyte imbalance: Code(s): E87.8 - Other disorders of electrolyte and fluid balance, not elsewhere classified Status: Acute Assessment and Plan: Correct Electrolytes as indicated monitor daily labs (3) Viral illness: Code(s): B34.9 - Viral infection, unspecified Status: Acute Assessment and Plan: treat symptoms breathing treatment Cough medication (4) Hypertension: Code(s): I10 - Essential (primary) hypertension Status: Acute Assessment and Plan: stable continue home medication DS: Summary Hospital Course Reason for hospitalization: COPD Exacerbation Hospital Course: This is a 67-year-old that presents to the emergency room complaining of increased shortness of breath.? Patient was admitted to the hospital re-treat her with IV steroids, IV antibiotics, and around the clock breathing treatment. Patient initially we placed some oxygen on a but she was quickly weaned off patient was hypertensive and tachycardic and in respiratory distress when she came in that has since resolved. Patient states she is feeling a lot better able to have a complete sentences without any shortness of breath noted unknown embolism has been ordered for patient as well as nebulizer treatment or solution. Inhaler ordered as patient without a medication as well. Patient had a ready been previously on 1 oral antibiotics that she had taken according to patient she waited too long to come in from being out of medication. Chest x-ray does not indicate any pneumonia we will discharge patient with oral steroids breathing treatments and have a follow-up with primary care provider Time Spent with Patient Time attestation: Total time spent providing and/or coordinating discharge services: Exam Narrative: GENERAL:Well-appearing, well-nourished, and in no acute distress. HEAD:Normocephalic, atraumatic. EYES: PERRLA and EOMI. ENT: Nares clear, no rhinorrhea or epistaxis. Mucous membranes moist. CHEST: Clear to diminished in lower lobes auscultation. No respiratory distress. HEART: Regular rate and rhythm. No murmur heard. Normal peripheral pulses. ABDOMEN: Soft, nontender, nondistended, normal active bowel sounds. EXTREMITIES: Normal range of motion. No edema. SKIN: Warm, dry, no rash. NEURO: No focal deficits. Alert and oriented x3. DS: Data Data Completed and Pending Labs on day of discharge: Labs from last 24 hours 04/11/23 08:07 WBC 6.0 RBC 4.53 Hgb 13.4 Hct 40.3 MCV 89.0 MCH 29.6 MCHC 33.3 RDW 14.9 H Plt Count 248 MPV 10.2 Immature Gran % (Auto) 0.8 H Neut % (Auto) 83.6 H Lymph % (Auto) 13.4 L [place] % (Auto) 1.5 L Eos % (Auto) 0.2 L Baso % (Auto) 0.5 Lymph # (Auto) 0.80 L [place] # (Auto) 0.09 L Eos # (Auto) 0.01 L Baso # (Auto) 0.03 Abs Immat Gran (auto) 0.05 H Absolute Neuts (auto) 5.0 Absolute Nucleated RBC 0.00 Nucleated RBC % 0.0 Sodium 140 Potassium 4.2 Chloride 103 Carbon Dioxide 27 Anion Gap 10 BUN 16 Creatinine 0.93 Estim Creat Clear Calc 45 Estimated GFR 60 Glucose 149 H Calculated Osmolality 294 Calcium 8.1 L Total Bilirubin 0.5 AST 13 L ALT 15 Alkaline Phosphatase 59 Total Protein 6.7 Albumin 3.0 L Discharge Plan Discharge Attending physician on discharge: Pete Fernando Consulting providers: Maria D Landa; Ian Reyez; Hector Richardson Discharging Clinician: Maria D Landa Anticipated Discharge Date/Time:
--- NOTE | 2023-04-12 10:55 | PC.NURSE ---
Discharge instructions reviewed with patient. All questions answered. Pt escorted via wheelchair and assisted into private vehicle.
--- NOTE | 2023-04-19 11:11 | PC.NURSE ---
Unable to contact for discharge call back.
== END 2023-04-12 11:00 | disposition home or self-care (01) ==
LOC: CHSED 22:25 → CHS2ND 22:57
PROVIDERS: Admitting Provider Internal Medicine; Emergency Provider Emergency Medicine; PCP Internal Medicine; Visit Provider Internal Medicine
DX: J44.1 Chronic obstructive pulmonary disease with (acute) exacerbation (principal); B34.9 Viral infection, unspecified; E87.8 Other disorders of electrolyte and fluid balance, not elsewhere classified; I10 Essential (primary) hypertension; I25.2 Old myocardial infarction; Z20.822 Contact with and (suspected) exposure to COVID-19; Z87.891 Personal history of nicotine dependence; Z99.81 Dependence on supplemental oxygen; Z79.82 Long term (current) use of aspirin
CPT/HCPCS: 36415; 36600; 71045; 80053; 82805; 83605; 83735; 83880; 84484; 85025; 85380; 85652; 86140; 87637; 93005; 94640; 96365; 96375; 96376; 99285; A9270; G0378; J2920; J2930; J3475

== ENCOUNTER 2023-05-08 20:32 | Inpatient (IN) | payer MEDICARE, OTHER, SELFPAY ==
[2023-05-08] VITALS (14 sets, daily range): BP systolic 101–120; BP diastolic 58–103; PULSE 88–103; RESP 13–25; TEMP 37.6; O2SAT 92–99
--- NOTE | ~2023-05-08 | XR_ITS ---
XR chest 1V portable DATE: 05/08/2023 21:01 INDICATION: Cough, shortness of breath TECHNIQUE: Portable upright AP chest on 05/08/2023 at 2100 hours COMPARISON: 04/10/2023 portable AP chest FINDINGS: Normal heart size. No hilar or mediastinal enlargement. No pulmonary infiltrate or consolid ation, pleural effusion or pulmonary vascular congestion or pneumothorax is detected. IMPRESSION: No active cardiopulmonary disease Reviewed, dictated and finalized at location A.
--- NOTE | ~2023-05-08 | XR_ITS ---
XR chest 1V portable 05/11/2023 18:18 Indication: Leukocytosis and cough Procedure: AP portable chest Comparison: Comparison to multiple prior studies sequentially, with oldest reviewed study dated 03/2023. Findings: Heart size normal. No focal air space disease, pulmonary edema, pleural effusion or suspect ed pneumothorax. Impression: 1: No acute cardiopulmonary disease. Reviewed, dictated and finalized at location [] Impression: 1: No acute cardiopulmonary disease.
--- NOTE | 2023-05-08 20:42 | ECG_ITS ---
Measurements Intervals Martha Rate: 99 P: -22 AR: 161 QRS: 17 QRSD: 73 T: 58 QT: 329 QTc: 423 Interpretive Statements SINUS RHYTHM BASELINE ARTIFACT CANNOT RULE OUT SEPTAL MYOCARDIAL INFARCTION , PROBABLY OLD ABNORMAL ECG COMPARED TO ECG 04/10/2023 21:06:08 HEART RATE HAS DECREASED Electronically Signed On 05-09-2023 17:24:20 CDT by Taj Vernon M.D.
--- NOTE | 2023-05-08 20:43 | ED.SOB ---
HPI - SOB/Dyspnea General Chief Complaint: Shortness of Breath/Dyspnea Stated Complaint: SOB History of Present Illness HPI Narrative: This is a 67-year-old female with past history of COPD, who presents to the emergency department complaining of wheezing, cough and shortness of breath for the past day. The patient states her symptoms began last night. The cough is productive of mucus without blood. She reports a temperature of 101 ?F prior to arrival. She also complains of sharp right parasternal chest pain, rated 4/10 worse with lying backwards, beginning at the same time. Related Data Home Medications Medication Instructions Recorded Confirmed amlodipine 5 mg tablet 5 mg PO DAILY 08/26/22 05/08/23 aspirin 81 mg capsule 81 mg PO DAILY 08/26/22 05/08/23 famotidine 20 mg tablet 20 mg PO DAILY 08/26/22 05/08/23 Calcium 600 600 mg PO DAILY 05/08/23 05/08/23 dupilumab 300 mg subcut [id number] 05/08/23 05/08/23 formoterol fumarate 20 mcg inhalation DAILY 05/08/23 05/08/23 Allergies Allergy/AdvReac Type Severity Reaction Status Date / Time amoxicillin [From Augmentin] Allergy Dyspnea / Verified 05/08/23 20:54 SOB clavulanic acid Allergy Dyspnea / Verified 05/08/23 20:54 [From Augmentin] SOB doxycycline Allergy Back Pain Verified 05/08/23 20:54 adhesive tape AdvReac Rash Verified 05/08/23 20:54 Review of Systems Review of Systems: CONSTITUTIONAL: Fever denies chills, or sweats. CARDIOVASCULAR: Chest pain denies palpitations, or edema. RESPIRATORY: Productive, nonbloody cough and dyspnea. GASTROINTESTINAL: Denies abdominal pain, nausea, vomiting, or diarrhea. GENITOURINARY: Denies dysuria or hematuria. SKIN: Denies rash or itching. MUSCULOSKELETAL: Denies back pain, joint pain, or myalgia. NEUROLOGIC: Denies headache, numbness, dizziness, or weakness. PSYCHIATRIC: Denies anxiety or depression. [facility] Past Medical History Medical History Acute exacerbation of emphysema Emphysema of lung Hypertension Hypoxia Surgical History Surgical History Hx of sinus surgery Social History Social History Social History: HISTORY OF SMOKING IN THE PAST Years smoked: 40 Smoking status: Former smoker Second hand tobacco smoke exposure: No Alcohol intake: current Drinks per week: 1 Substance use: current Substance use type: prescription drug Lack of Transportation: No Lack of Food: Never True Current Housing: I Have Housing Concerned About Future Housing: No Difficulty Paying Gas/Electric Bills: No Difficulty Paying for Meds: No Currently Unemployed: No Education: Bachelor's Degree Difficulty w/ Childcare or Family Care: No Spiritual care concerns: Yes (Vianney) Exam Narrative: GENERAL: Well-developed, well-nourished, appears uncomfortable HEAD: Normocephalic, atraumatic. EYES: PERRLA and EOMI. ENT: Nares clear, no rhinorrhea or epistaxis. Mucous membranes moist. Oropharynx without tonsillar hypertrophy exudate or other lesions. NECK: Supple. No adenopathy or masses. No carotid bruits or JVD CHEST: Diminished aeration with expiratory wheeze in the posterior lung link the left louder than the right. Mild respiratory distress. The patient speaks in 5-7 words. No rales or rhonchi HEART: Tachycardic with regular rhythm. No murmur heard. Normal peripheral pulses. ABDOMEN: Soft, nontender, nondistended, normal active bowel sounds. EXTREMITIES: Normal range of motion. No edema. SKIN: Warm, dry, no rash. NEURO: No focal deficits. Alert and oriented x3. PSYCH: Normal mood and affect. Course Course Emergency Course: 21:30 - VBG demonstrates mild respiratory alkalosis with pH 7.46 and a PCO2 of 36.6. Bicarb within normal limits. CBC demonstrates white blood cell count elevation 17 (higher than previous) wit
[2023-05-08] MEDS: methylPREDNISolone SOD SUCC 125 MG VIAL IV PUSH (20:47)
[2023-05-08 20:49] LABS: HCO3 VBG 25.4 mEq/l (24.0-30.0); PCO2 VBG 36.6 mmHg (42.0-48.0); PO2 VBG 43.6 mmHg (35.0-45.0); pH VBG 7.46 (7.33-7.43)
[2023-05-08 20:50] LABS: Device ROOM AIR
[2023-05-08] MEDS: MAGNESIUM SULF 2 GM/WATER 50ML 2 GM/50 ML BAG IVPB (20:50)
[2023-05-08 20:56] LABS: Hematocrit 43.8 % (35.0-42.0); Hemoglobin 14.5 g/dL (11.7-13.8); Mean Corpuscular HGB Conc 33.1 g/dL (32.0-36.0); Mean Corpuscular Hemoglobin 29.5 pg (27.0-31.0); Mean Platelet Volume 10.8 fl (9.2-11.8); Platelet Count Result 279 K/mm3 (150-420); Red Blood Count 4.92 M/mm3 (4.20-5.40); Red Cell Distribution Width 14.6 % (11.6-14.4)
[2023-05-08 21:12] LABS: Alanine Aminotransferase 18 U/L (14-59); Albumin Level 3.6 g/dL (3.4-5.0); Alkaline Phosphatase 68 U/L (46-116); Anion Gap 10 mmol/L (8-16); Aspartate Amino Transferase 26 U/L (15-37); Bilirubin,Total 0.3 mg/dL (0.00-1.00); Blood Urea Nitrogen 17 mg/dL (7-18); Calcium 8.9 mg/dL (8.5-10.1); Carbon Dioxide 26 mmol/L (21-32); Chloride 105 mmol/L (98-108); Estimated CRCL calculation 56 ml/min; Estimated Glomerular Filt Rate > 60; Glucose 90 mg/dL (70-99); Osmolality Calculated 293 mOsm/kg (285-295); Potassium 4.1 mmol/L (3.5-5.1); Sodium 141 mmol/L (136-145); Total Protein 7.4 g/dL (6.4-8.2); Troponin I 6.1 ng/L (0.00-60.4)
[2023-05-08] MEDS: IPRATROPIUM BR 0.02% INH SOLN 0.5 MG/2.5 ML VIAL 1.5 MG INHALATION (21:21)
[2023-05-08] MEDS: ALBUTEROL SULFATE NEB 2.5 MG/3 ML INH 10 MG INHALATION ×2 (21:21→23:16)
[2023-05-08 21:25] LABS: Band Neutrophils Percent 0 % (0-6); Neutrophils Absolute Manual 7.48 K/mm3 (1.7-7.2); Neutrophils Percent Manual 44 % (46-73); Total Cells Counted 100
[2023-05-08 21:26] LABS: Basophils Absolute Manual 0.51 K/mm3 (0-0.1); Basophils Percent Manual 3 % (0-1); Eosinophils Absolute Manual 4.25 K/mm3 (0.02-0.5); Eosinophils Percent Manual 25 % (1-6); Lymphocytes Absolute Manual 4.25 K/mm3 (1.1-4.5); Lymphocytes Percent Manual 25 % (18-44); Monocytes Absolute Manual 0.51 K/mm3 (0.1-0.90); Monocytes Percent Manual 3 % (3-9); Platelet Estimate Adequate (Adequate)
[2023-05-08 21:27] LABS: Schistocytes None Seen (NORMAL)
[2023-05-08] MEDS: BENZONATATE 100 MG CAPSULE 200 MG PO (22:46)
[2023-05-09] VITALS (17 sets, daily range): BP systolic 95–115; BP diastolic 53–60; PULSE 76–95; RESP 16–20; TEMP 36.6–37.3; O2SAT 91–96; BMI 21.4
[2023-05-09] MEDS: AZITHROMYCIN 250 MG TABLET 500 MG PO (00:16)
--- NOTE | 2023-05-09 00:30 | ADMGEN ---
This patient, Gabbie Chirs, was admitted to 2nd Floor Room 204-1. Patient oriented to hospital policies and general routines including ID bracelet, bed and alarms, visiting hours, pain management, procedures, bathroom and other care routines, personal items, smoking policy, room service/diet, and visiting hours. Information on how to activate the Rapid Response Team has been discussed. Patient are encouraged to report perceived risks to care and to ask questions if they do not understand what they are told or what they should do.
--- NOTE | 2023-05-09 00:30 | ADMGEN ---
This patient, Gabbie Chris, was admitted to 2nd Floor Room 204-1. Patient/family oriented to hospital policies and general routines including ID bracelet, bed and alarms, visiting hours, pain management, procedures, bathroom and other care routines, personal items, smoking policy, room service/diet, and visiting hours. Information on how to activate the Rapid Response Team has been discussed. Patient/Family are encouraged to report perceived risks to care and to ask questions if they do not understand what they are told or what they should do.
[2023-05-09] MEDS: ALBUTEROL SULFATE NEB 2.5 MG/3 ML INH INHALATION ×6 (01:03→23:21)
[2023-05-09] MEDS: IPRATROPIUM BR 0.02% INH SOLN 0.5 MG/2.5 ML VIAL INHALATION ×5 (01:03→23:21)
--- NOTE | 2023-05-09 04:59 | PC.NURSE ---
On 05/09/23, the SUPERINTENDENT METERS, Paige Abdalla, provided care and [facility] I have reviewed the SUPER[employer]ENDENT [employer]'s documentation and agree with the findings.
[2023-05-09] MEDS: methylPREDNISolone SOD SUCC 125 MG VIAL 60 MG IV PUSH ×3 (06:04→21:21)
[2023-05-09] MEDS: BENZONATATE 100 MG CAPSULE 200 MG PO ×2 (08:20→17:47)
[2023-05-09 10:31] LABS: Basophils Absolute Auto 0.04 K/mm3 (0.00-0.10); Basophils Percent Auto 0.5 % (0.0-1.0); Hematocrit 41.3 % (35.0-42.0); Hemoglobin 13.5 g/dL (11.7-13.8); Immature Granulocyte Absolute 0.04 K/mm3 (0.00-0.00); Immature Granulocyte Percent A 0.5 % (0.0-0.0); Lymphocytes Absolute Auto 1.11 K/mm3 (1.10-4.50); Lymphocytes Percent Auto 13.4 % (18.0-42.0); Mean Corpuscular HGB Conc 32.7 g/dL (32.0-36.0); Mean Corpuscular Hemoglobin 29.3 pg (27.0-31.0); Mean Corpuscular Volume 89.6 fL (78.0-102.0); Mean Platelet Volume 10.7 fl (9.2-11.8); Monocytes Absolute Auto 0.24 K/mm3 (0.10-0.90); Monocytes Percent Auto 2.9 % (2.0-11.0); Neutrophils Absolute Auto 6.9 K/mm3 (1.7-7.2); Neutrophils Percent Auto 82.7 % (50.0-70.0); Platelet Count Result 247 K/mm3 (150-420); Red Blood Count 4.61 M/mm3 (4.20-5.40); Red Cell Distribution Width 14.7 % (11.6-14.4); White Blood Count 8.3 K/mm3 (4.8-10.8)
[2023-05-09] MEDS: guaiFENesin 200 MG/10 ML UDC PO ×3 (10:33→19:55)
[2023-05-09 10:40] LABS: Anion Gap 10 mmol/L (8-16); Blood Urea Nitrogen 19 mg/dL (7-18); Calcium 8.7 mg/dL (8.5-10.1); Carbon Dioxide 26 mmol/L (21-32); Chloride 105 mmol/L (98-108); Estimated CRCL calculation 45 ml/min; Estimated Glomerular Filt Rate 59; Glucose 154 mg/dL (70-99); Magnesium 2.4 mg/dL (1.8-2.4); Osmolality Calculated 297 mOsm/kg (285-295); Potassium 3.9 mmol/L (3.5-5.1); Sodium 141 mmol/L (136-145)
--- NOTE | 2023-05-09 12:23 | PM.IMHP ---
H&P: HPI History of Present Illness Date/Time: 05/09/23 12:23 Chief Complaint: Shortness of breath Narrative: Ms. Chris is a 67-year-old female who presented to the emergency room with complaints of shortness of breath and cough that began Tuesday evening. Patient states she has had sputum production with her cough of yellow and white sputum. Patient states that yesterday she did feel like she may have had a fever and she did check it within infrared the mom and it was approximately 101? F. Patient states that she has been been feeling well since her last hospitalization which was last month. Patient states she has been taking all medications without any difficulty. Patient denies any chest pain, lightheadedness, dizziness, syncopal, or near syncopal episodes. Patient denies wearing oxygen at home Recently, but states she can use it as needed and use at on day of admission. Patient states that her cough feels like she has very thick sputum and she was unable to cough it up at times in this is become very tiring for her. Patient denies any dysuria, hematuria, frequency, or urgency. Upon evaluation emergency room patient was noted to have a leukocytosis. Patient denies having been on steroids recently, except for when she was hospitalized in March. Patient's chest x-ray showed no cardiopulmonary process. It was decided at that point the patient be admitted to the hospital for further treatment. Review of Systems Review of Systems: A 12 point review of systems was completed with patient all pertinent positive and negative per HPI the remainder are unremarkable. [facility] Past Medical History Medical History Acute exacerbation of emphysema Emphysema of lung Hypertension Hypoxia Surgical History Surgical History Hx of sinus surgery Social History Social History Social History: HISTORY OF SMOKING IN THE PAST Smoking packs per day: 1 Smoking cigarettes per day: 20.0 Years smoked: 40 Smoking pack-years: 40.00 Smoking status: Former smoker Second hand tobacco smoke exposure: No Alcohol intake: current Drinks per week: 1 Substance use: current Substance use type: prescription drug Lack of Transportation: No Lack of Food: Never True Current Housing: I Have Housing Concerned About Future Housing: No Difficulty Paying Gas/Electric Bills: No Difficulty Paying for Meds: No Currently Unemployed: No Education: Bachelor's Degree Difficulty w/ Childcare or Family Care: No Spiritual care concerns: Yes (Vianney) Meds Home Medications and Allergies Home Medications Medication Instructions Recorded Confirmed Type amlodipine 5 mg tablet 5 mg PO DAILY 08/26/22 05/08/23 History aspirin 81 mg capsule 81 mg PO DAILY 08/26/22 05/08/23 History famotidine 20 mg tablet 20 mg PO DAILY 08/26/22 05/08/23 History albuterol sulfate 90 mcg/actuation 2 puff inhalation QID #8.5 grams 04/12/23 05/08/23 Rx aerosol inhaler (Ventolin HFA) fluticasone 250 mcg-salmeterol 50 1 inh inhalation Q12H #60 ea 04/12/23 05/08/23 Rx mcg/dose blistr powdr for inhalation (Advair Diskus) ipratropium 0.5 mg-albuterol 3 mg 3 ml inhalation QID #30 vials 04/12/23 05/08/23 Rx (2.5 mg base)/3 mL nebulization soln Calcium 600 600 mg PO DAILY 05/08/23 05/08/23 History dupilumab 300 mg subcut [id number] 05/08/23 05/08/23 History formoterol fumarate 20 mcg inhalation DAILY 05/08/23 05/08/23 History Allergies Allergy/AdvReac Type Severity Reaction Status Date / Time amoxicillin [From Augmentin] Allergy Dyspnea / Verified 05/08/23 20:54 SOB clavulanic acid Allergy Dyspnea / Verified 05/08/23 20:54 [From Augmentin] SOB doxycycline Allergy Back Pain Verified 05/08/23 20:54 adhesive tape AdvReac Rash Verified 05/08/23 20:54 Vit
[2023-05-09 15:09] LABS: Appearance Urine Clear (Clear); Bilirubin Urine Negative (Negative); Blood Urine Negative (Negative); Color Urine Light Yellow (Yellow); Glucose Urine UA Trace (Negative); Ketones Urine Negative (Negative); Leukocyte Esterase Ur Negative (Negative); Nitrate Urine Negative (Negative); Protein Urine Negative (Negative); Urobilinogen Urine 0.2 mg/dL (0.2-1.0); pH Urine 5.5 (5.0-8.0)
[2023-05-09 15:14] LABS: Add Urine Microscopic? YES; Bacteria Urine Trace /hpf; RBC Urine None seen /hpf (0-2); Squamous Epithelial Cell Urine Rare /hpf (Few); WBC Urine None seen /hpf (0-3)
[2023-05-09] MEDS: BUDESONIDE RESPULE NEB 0.5 MG/2 ML AMP INHALATION (17:25)
[2023-05-10] VITALS (16 sets, daily range): BP systolic 114–127; BP diastolic 61–92; PULSE 76–99; RESP 16–20; TEMP 36.7–36.9; O2SAT 89–96
[2023-05-10] MEDS: AZITHROMYCIN 500 MG/NS 250 ML 500 MG/250 ML BAG 250 MG IVPB (00:01)
[2023-05-10] MEDS: BENZONATATE 100 MG CAPSULE 200 MG PO ×2 (00:09→09:13)
[2023-05-10] MEDS: guaiFENesin 200 MG/10 ML UDC PO ×2 (01:13→11:20)
[2023-05-10] MEDS: BUDESONIDE RESPULE NEB 0.5 MG/2 ML AMP INHALATION ×2 (04:53→17:38)
[2023-05-10] MEDS: IPRATROPIUM BR 0.02% INH SOLN 0.5 MG/2.5 ML VIAL INHALATION ×4 (04:54→23:19)
[2023-05-10 05:34] LABS: Hematocrit 40.5 % (35.0-42.0); Hemoglobin 13.3 g/dL (11.7-13.8); Mean Corpuscular HGB Conc 32.8 g/dL (32.0-36.0); Mean Corpuscular Hemoglobin 29.3 pg (27.0-31.0); Mean Corpuscular Volume 89.2 fL (78.0-102.0); Mean Platelet Volume 10.4 fl (9.2-11.8); Platelet Count Result 247 K/mm3 (150-420); Red Blood Count 4.54 M/mm3 (4.20-5.40)
--- NOTE | 2023-05-10 05:40 | PC.NURSE ---
Patient's IV is now occluded. She refused placement of another IV, so we are unable to give the 60 mg dose of solu-medrol due at 0600.
[2023-05-10 05:41] LABS: White Blood Count 24.6 K/mm3 (4.8-10.8)
[2023-05-10 05:43] LABS: Anion Gap 10 mmol/L (8-16); Blood Urea Nitrogen 21 mg/dL (7-18); Calcium 8.6 mg/dL (8.5-10.1); Carbon Dioxide 25 mmol/L (21-32); Chloride 108 mmol/L (98-108); Estimated CRCL calculation 64 ml/min; Estimated Glomerular Filt Rate > 60; Glucose 120 mg/dL (70-99); Magnesium 2.3 mg/dL (1.8-2.4); Osmolality Calculated 300 mOsm/kg (285-295); Potassium 4.1 mmol/L (3.5-5.1); Sodium 143 mmol/L (136-145)
[2023-05-10 05:49] LABS: Band Neutrophils Percent 0 % (0-6); Basophils Percent Manual 0 % (0-1); Eosinophils Percent Manual 0 % (1-6); Lymphocytes Absolute Manual 2.21 K/mm3 (1.1-4.5); Lymphocytes Percent Manual 9 % (18-44); Monocytes Absolute Manual 0.49 K/mm3 (0.1-0.90); Monocytes Percent Manual 2 % (3-9); Neutrophils Absolute Manual 21.89 K/mm3 (1.7-7.2); Neutrophils Percent Manual 89 % (46-73); Platelet Estimate Adequate (Adequate)
[2023-05-10] MEDS: CALCIUM CARBONATE (OSCAL) 500 MG TABLET PO (09:13)
[2023-05-10] MEDS: ASPIRIN 81 MG ENTERIC TABLET PO (09:13)
[2023-05-10] MEDS: FAMOTIDINE 20 MG TABLET PO (09:13)
[2023-05-10] MEDS: amLODIPine BESYLATE 5 MG TABLET PO (09:13)
[2023-05-10] MEDS: ENOXAPARIN 40 MG/0.4 ML SYRINGE SUB-Q (09:14)
[2023-05-10] MEDS: LACTATED RINGERS 1,000 ML 999 ML IV CONT (10:16)
[2023-05-10 12:40] LABS: Hematocrit 41.6 % (35.0-42.0); Hemoglobin 13.5 g/dL (11.7-13.8); Mean Corpuscular HGB Conc 32.5 g/dL (32.0-36.0); Mean Corpuscular Hemoglobin 29.3 pg (27.0-31.0); Mean Corpuscular Volume 90.2 fL (78.0-102.0); Mean Platelet Volume 10.5 fl (9.2-11.8); Platelet Count Result 247 K/mm3 (150-420); Red Blood Count 4.61 M/mm3 (4.20-5.40); Red Cell Distribution Width 15.2 % (11.6-14.4)
[2023-05-10 12:41] LABS: White Blood Count 24.3 K/mm3 (4.8-10.8)
[2023-05-10] MEDS: ALBUTEROL SULFATE NEB 2.5 MG/3 ML INH INHALATION ×3 (12:47→23:19)
[2023-05-10 13:00] LABS: Band Neutrophils Percent 0 % (0-6); Basophils Percent Manual 0 % (0-1); Eosinophils Percent Manual 0 % (1-6); Lymphocytes Absolute Manual 1.21 K/mm3 (1.1-4.5); Lymphocytes Percent Manual 5 % (18-44); Monocytes Absolute Manual 0.72 K/mm3 (0.1-0.90); Monocytes Percent Manual 3 % (3-9); Neutrophils Absolute Manual 22.35 K/mm3 (1.7-7.2); Neutrophils Percent Manual 92 % (46-73); Platelet Estimate Adequate (Adequate); Total Cells Counted 100
--- NOTE | 2023-05-10 13:08 | PM.IMPN ---
Progress Note: A&P Assessment and Plan (1) Acute exacerbation of chronic obstructive pulmonary disease: Code(s): J44.1 - Chronic obstructive pulmonary disease with (acute) exacerbation Status: Acute Assessment and Plan: Patient continues to have dyspnea on exertion and frequent nonproductive cough. At this point time would like to keep patient overnight for frequent steroids, nebulizer treatments, and flutter valve. Will also have chest x-ray in a.m. to ensure that patient has not developed atelectasis. (2) Leukocytosis: Code(s): D72.829 - Elevated white blood cell count, unspecified Status: Acute Assessment and Plan: May be secondary to patient's steroids. Patient's urinalysis showed no infection and chest x-ray initially showed no infection. Patient denies any abdominal pain, nausea, vomiting, constipation, or diarrhea. Patient denies any dysuria, hematuria, frequency, or urgency. Will have laboratory drawn in the a.m. and if she does continue have a leukocytosis that is most likely secondary to steroids and patient will need to have CBC drawn outpatient to be monitored. (3) Hypoxia: Code(s): R09.02 - Hypoxemia Status: Acute Assessment and Plan: Patient does have home oxygen that she can wear as needed. As long as saturations are greater than 88% and patient is comfortable no supplemental oxygen is needed. Subjective Date/time seen: 05/10/23 13:08 Interval history: Discussed with patient this morning possible discharge, but since her white blood cell count had significantly elevated wanted to monitor patient throughout the day to see how she was feeling. Patient states that she was feeling extremely well this morning and wanted to go home. Did give a 1 L bolus of LR x1. This afternoon the patient states that she has been coughing quite a bit and has not had a large amount of sputum production and she does feel fatigued and short of breath with activity. Review of Systems Review of Systems: A 12 point review of systems was completed with patient all pertinent positive and negative per HPI the remainder are unremarkable. Exam Narrative: Constitutional: Patient is a thin 67-year-old female who is resting comfortably in bed and is in no acute distress. Patient is alert and oriented x3 HEENT: Moist mucous membranes. No scleral icterus. No lymphadenopathy. Neck: No carotid bruits noted no JVD noted Lungs: Lung sounds remain decreased, but had better air movement this a.m. with expiratory wheezing noted. This afternoon patient's lung sounds are decreased auscultation bilaterally. No accessory muscle use. No rhonchi or rales noted. Frequent nonproductive cough noted this morning. Cardiovascular: Apical pulse is regular rate and rhythm. S1-S2 noted, no S3 or S4 noted. No gallops, murmurs, or rubs noted. Abdomen: Soft, round, and nontender. No palpable masses. Extremities: No edema. Nontender. Skin: No rashes or lesions. Warm and dry. Skin is intact. Neurological: No focal neurological deficits. Cranial nerves II-XII grossly intact. Psychiatric: Cooperative, appropriate mood, and affect Objective Data Vital Signs Vital Signs: Vital Signs - 24 hr 05/09/23 16:10 05/09/23 16:10 05/09/23 17:25 Temperature 36.8 C Pulse Rate 90 90 92 Respiratory Rate 18 20 Blood Pressure 102/56 L Pulse Oximetry 92 93 Oxygen Delivery Room Air 05/09/23 17:45 05/09/23 20:00 05/10/23 00:00 Temperature Pulse Rate 94 89 99 Respiratory Rate 20 Blood Pressure Pulse Oximetry Oxygen Delivery 05/10/23 00:00 05/09/23 23:21 05/09/23 23:32 Temperature 36.9 C Pulse Rate 89 88 87 Respiratory Rate 18 20 20 Blood Pressure 116/92 H Pulse Oximetry 90 91 Oxygen Delivery Room Air 05/10/23 04:55 05/10/23 05:10 05/10/23 04:00 Temperature Pulse Rate 92 92 77 Respiratory Rate 20 20 Blood Pressure Pulse Oximetry 90
[2023-05-10] MEDS: guaiFENesin/CODEINE 100/10 MG 5 ML SYRUP 10 ML PO ×2 (14:27→19:48)
[2023-05-10] MEDS: methylPREDNISolone SOD SUCC 125 MG VIAL 60 MG IV PUSH ×2 (14:27→21:48)
--- NOTE | 2023-05-11 10:41 | DS_ITS ---
ADMITTING DIAGNOSIS Chronic obstructive pulmonary disease exacerbation. DISCHARGE DIAGNOSES [id number] chronic obstructive pulmonary disease exacerbation.? Leukocytosis.? Hypertension.? Hypoxia.? CONSULTATIONS None. HOSPITAL COURSE The patient is a 67-year-old female who presented to the emergency room with complaints of increasing shortness of breath and cough. ?The patient was noted to be hypoxic as well as had a significant leukocytosis plus chest x-ray read no acute cardiopulmonary process. ?It was decided at that time the patient would be admitted for an acute exacerbation for chronic COPD. ?The patient was given IV steroids and azithromycin in the emergency room and then transferred to the medical surgical unit. ?During her hospitalization, the patient was noted to have a leukocytosis that did improve after IV fluids but then returned and has significantly improved at this time. ?The patient has been receiving IV Solu- Medrol as well as azithromycin 500 mg daily. ?At this point in time, the patient is doing extremely well. ?She has improved significantly and is ambulating without any shortness of breath and is ready for discharge home. ?The patient does have oxygen at home that she wears at night as needed and she can wear during the day as needed also. [facility] White blood cell count 13.1, hemoglobin 11.1, hematocrit 33.8, platelets 333. Sodium 143, potassium 4.0, chloride 109, CO2 of 23, BUN 23, creatinine 0.63, glucose 129. DIAGNOSTICS Chest x-ray shows no acute cardiopulmonary process. CONDITION AT DISCHARGE The patient is in stable and significantly improved condition upon discharge. ?The patient will be discharged home. DISCHARGE INSTRUCTIONS The patient will be discharged on her previous home diet. ?The patient will continue with activity as tolerated and utilize her oxygen as needed. ?The patient will follow up with her primary care provider in the next 1-2 weeks. DISCHARGE MEDICATIONS Advair 250/50 mcg q.12 hours.? DuoNeb 3 mL nebulizer q.i.d. p.r.n.? Albuterol MDI 90 mcg 2 puffs q.i.d. p.r.n.? Calcium 600 mg 1 p.o. daily.? Dupilumab 300 mg subcutaneous q.2 weeks on Tuesdays.? Formoterol MDI 20 mcg once daily.? Amlodipine 5 mg p.o. once daily.? Pepcid 20 mg 1 p.o. once daily.? Aspirin 81 mg p.o. once daily.? Zithromax 500 mg 1 p.o. daily x2 days.? Prednisone 50 mg 1 p.o. daily x3 days.? As already stated, the patient is doing very well and will follow up with her primary care in 1-2 weeks. Thank you for allowing me to care for this patient. ETHAN
[2023-05-12 13:12] LABS: Anion Gap 8 mmol/L (8-16); Blood Urea Nitrogen 23 mg/dL (7-18); Carbon Dioxide 26 mmol/L (21-32); Chloride 109 mmol/L (98-108); Estimated CRCL calculation 65 ml/min; Estimated Glomerular Filt Rate > 60; Glucose 129 mg/dL (70-99); Osmolality Calculated 301 mOsm/kg (285-295); Sodium 143 mmol/L (136-145)
[2023-05-12 13:13] LABS: Calcium 8.2 mg/dL (8.5-10.1)
[2023-05-12 14:06] LABS: Basophils Absolute Auto 0.03 K/mm3 (0.00-0.10); Basophils Percent Auto 0.2 % (0.0-1.0); Eosinophils Absolute Auto 0.01 K/mm3 (0.02-0.50); Eosinophils Percent Auto 0.1 % (1.0-6.0); Hematocrit 33.8 % (35.0-42.0); Hemoglobin 11.1 g/dL (11.7-13.8); Immature Granulocyte Absolute 0.08 K/mm3 (0.00-0.00); Immature Granulocyte Percent A 0.6 % (0.0-0.0); Lymphocytes Percent Auto 8.5 % (18.0-42.0); Mean Corpuscular HGB Conc 32.8 g/dL (32.0-36.0); Mean Corpuscular Hemoglobin 35.2 pg (27.0-31.0); Mean Corpuscular Volume 107.3 fL (78.0-102.0); Mean Platelet Volume 10.4 fl (9.2-11.8); Monocytes Absolute Auto 0.98 K/mm3 (0.10-0.90); Monocytes Percent Auto 7.5 % (2.0-11.0); Neutrophils Absolute Auto 10.8 K/mm3 (1.7-7.2); Neutrophils Percent Auto 83.1 % (50.0-70.0); Platelet Count Result 333 K/mm3 (150-420); Red Blood Count 3.15 M/mm3 (4.20-5.40)
--- NOTE | 2023-05-13 13:58 | PC.NURSE ---
Pt states she received and understood her discharge instructions. Pt states her care was all good.
== END 2023-05-11 11:20 | disposition home or self-care (01) | DRG 192 ==
LOC: CHSED 05-09 00:11 → CHS2ND 05-09 07:17
PROVIDERS: Nurse Practitioner Adult Health; Admitting Provider Internal Medicine; Emergency Provider Preventive Medicine Aerospace Medicine; PCP Internal Medicine; Visit Provider Internal Medicine
DX: J44.1 Chronic obstructive pulmonary disease with (acute) exacerbation (principal); D72.829 Elevated white blood cell count, unspecified; R09.02 Hypoxemia; I10 Essential (primary) hypertension; Z79.82 Long term (current) use of aspirin; Z87.891 Personal history of nicotine dependence
CPT/HCPCS: 36415; 71045; 80048; 80053; 81001; 82803; 83735; 84484; 85025; 93005; 94640; 96365; 96366; 96375; 99285; A9270; J0456; J1650; J2930; J3475; J7120

== ENCOUNTER 2024-10-21 14:59 | Emergency (ER) | payer MEDICARE, OTHER, SELFPAY ==
--- NOTE | ~2024-10-21 | XR_ITS ---
XR hand LT min 3V DATE: 10/21/2024 15:11 INDICATION: Fall. Medial hand pain. TECHNIQUE: 3 views COMPARISON: None FINDINGS: There is a virtually nondisplaced fracture of the distal shaft of the fifth metacarpal bone with approximately 25 degrees apex medial and 45 degrees apex dorsal angulation. There is polyarticular osteoarthritis, involving particularly the first carpometacarpal and the inter phalangeal joints, particularly the distal interphalangeal joints, classic distribution for osteoarth ritis. There is osteopenia. No erosive change or chondrocalcinosis is noted. IMPRESSION: Distal fifth metacarpal shaft fracture Polyarticular osteoarthritis Osteopenia Reviewed, dictated and finalized at location A. TENNIS COACH
--- NOTE | 2024-10-21 15:01 | ED.UPPEXIN ---
HPI - Extremity Injury (Upper) General Chief Complaint: Extremity Injury, Upper Stated Complaint: fall Time Seen by Provider: 10/21/24 15:00 Source: patient Mode of arrival: ambulatory Limitations: no limitations History of Present Illness HPI narrative: patient is a 69-year-old female with a left hand injury falling on an outstretched hand. This happened today. She has pain in the left hand small digit base. MD complaint: injury to: left, hand and finger ( Fifth) Onset (ago): hour(s) Other Extremity Injury: Left: fingers and hand Other injuries: none Handedness: right Place: home and outdoors Severity: moderate Severity scale (1-10): 5 Relieving factors: immobilization Exacerbating factors: movement of extremity Context: fall and direct blow Associated symptoms: denies other symptoms Treatments prior to arrival: cold therapy Related Data Home Medications Medication Instructions Recorded Confirmed amlodipine 5 mg tablet 5 mg PO DAILY 08/26/22 05/08/23 aspirin 81 mg capsule 81 mg PO DAILY 08/26/22 05/08/23 famotidine 20 mg tablet 20 mg PO DAILY 08/26/22 05/08/23 Calcium 600 600 mg PO DAILY 05/08/23 05/08/23 dupilumab 300 mg subcut [id number] 05/08/23 05/08/23 formoterol fumarate 20 mcg inhalation DAILY 05/08/23 05/08/23 Allergies Allergy/AdvReac Type Severity Reaction Status Date / Time amoxicillin [From Augmentin] Allergy Dyspnea / Verified 05/08/23 20:54 SOB clavulanic acid Allergy Dyspnea / Verified 05/08/23 20:54 [From Augmentin] SOB doxycycline Allergy Back Pain Verified 05/08/23 20:54 adhesive tape AdvReac Rash Verified 05/08/23 20:54 Review of Systems Review of Systems: All systems reviewed & are unremarkable except as noted in HPI and below Constitutional: Constitutional: Reports no additional constitutional complaints Eyes: Eyes: Reports no additional eye complaints ENT: Reports system reviewed and no additional complaints, except as documented Cardiovascular: Cardiovascular: Reports no additional cardiovascular complaints Respiratory: Respiratory: Reports no additional respiratory complaints Gastrointestinal: Gastrointestinal: Reports no additional gastrointestinal complaints Genitourinary: Genitourinary: Reports no additional female genitourinary complaints Musculoskeletal: Musculoskeletal: Reports no additional musculoskeletal complaints Integumentary/Breasts: Skin/Breast: Reports system reviewed and no additional complaints, except as docu Neurologic: Reports system reviewed and no additional complaints, except as documented Psychiatric: Psychiatric: Reports no additional psychiatric complaints Endocrine: Endocrine: Reports no additional endocrine complaints Hematologic/Lymphatic: Hematologic/Lymphatic: Reports no additional hematologic/lymphatic complaints Allergic/Immunologic: Allergic/Immunologic: Reports no additional allergic/immunologic complaints PMFSH Past Medical History Medical History Acute exacerbation of emphysema Emphysema of lung Hypertension Hypoxia Surgical History Surgical History Hx of sinus surgery Social History Social History Social History: HISTORY OF SMOKING IN THE PAST Smoking packs per day: 1 Smoking cigarettes per day: 20.0 Years smoked: 40 Smoking pack-years: 40.00 Smoking status: Former smoker Second hand tobacco smoke exposure: No Alcohol intake: current Drinks per week: 1 Substance use: current Substance use type: prescription drug Lack of Transportation: No Lack of Food: Never True Current Housing: I Have Housing Concerned About Future Housing: No Difficulty Paying Gas/Electric Bills: No Difficulty Paying for Meds: No Currently Unemployed: No Education: Bachelor's Degree Difficulty w/ Childcare or Family Care: No Spiritual care concerns: Yes (Vianney) Exam Const: General: healthy appearing Nutritional Appearance: well nourished Orientation/consciousness: patient oriented x3 HENMT: Head: normal to inspection Ears: external ears normal Face/Nose/Sinus: Normal external nose present Eyes: Conjunctivae: conjunctivae normal Pupils: Equal, round and reactive pupils present EOM: EOMs intact bilaterally Neck: Neck: normal visual inspection Chest: Chest palpation & inspection: normal inspection of the chest Resp: Effort & Inspection: normal respiratory effort and not labored Auscultation: clear to auscultation bilaterally and no crackles Cardio: Rate: regular rate Rhythm: regular rhythm Heart sounds: no murmurs GI: Inspection: non-distended GI Palp: Yes Soft to palpation and No Tenderness to palpation present (GI) Auscultation: normal bowel sounds : General: Yes bladder normal to palpation Skin: General skin exam: normal color Rashes: no rashes Wounds: wound noted Other: left hand 5th digit base MCP area extensor surface hematoma formation Neuro: General: patient oriented x3 Cranial nerves: Yes Nystagmus not present Speech: normal speech Gait exam (Neuro): Normal gait present Extrem: General: normal to inspection Psych: Mental Status: mental status grossly normal Affect: normal affect Attitude: cooperative Course Vital Signs Vital signs: Vital Signs Temperature 36.3 C L 10/21/24 15:02 Pulse Rate 94 10/21/24 15:02 Respiratory Rate 20 10/21/24 15:02 Blood Pressure 146/67 H 10/21/24 15:02 Pulse Oximetry 97 10/21/24 15:02 Oxygen Delivery Room Air 10/21/24 15:02 Temperature 36.3 C L 10/21/24 15:02 Pulse Rate 94 10/21/24 15:02 Respiratory Rate 20 10/21/24 15:02 Blood Pressure 146/67 H 10/21/24 15:02 Pulse Oximetry 97 10/21/24 15:02 Oxygen Delivery Room Air 10/21/24 15:02 MDM - Extremity Injury (Upper) MDM Narrative Medical decision making narrative: patient is a 69-year-old female with a left hand fall on outstretched to the left hand injury for prior to arrival today. We will get an x-ray. No head or neck injuries. No other injuries. This was a mechanical fall. Imaging Data Attestation: I personally reviewed and interpreted this imaging study as follows: Radiologist's impression: x-ray left hand shows Distal fifth metacarpal shaft fracture with angulation Discharge Plan Discharge Clinical Impression: Fracture of hand Qualifiers: Encounter type: initial encounter Fracture type: closed Laterality: left Qualified Code(s): S62.92XA - Unspecified fracture of left wrist and hand, initial encounter for closed fracture Patient Disposition: Home, Self-Care Condition: Stable Instructions: Hand Fracture (ED) Additional Instructions: please follow-up with the primary doctor in the next week. You will need to see a hand it support specialist in the next week. This area will need surgery. We will place a temporary cast on the area. Prescriptions: No Action fluticasone propion-salmeterol [Advair Diskus] 250-50 mcg/dose blister with device 1 inh inhalation Q12H Qty: 60 2RF ipratropium-albuterol 0.5 mg-3 mg(2.5 mg base)/3 mL solution for nebulization 3 ml INHALATION QID Qty: 30 0RF albuterol sulfate [Ventolin HFA] 90 mcg/actuation HFA aerosol inhaler 2 puff inhalation QID Qty: 8.5 0RF Calcium 600 600 mg PO DAILY dupilumab 300 mg subcut [id number] formoterol fumarate 20 mcg inhalation DAILY amlodipine 5 mg tablet 5 mg PO DAILY famotidine 20 mg Tablet 20 mg PO DAILY aspirin 81 mg Capsule 81 mg PO DAILY Follow-up/Referrals: UNKNOWN,DOCTOR [Non-Staff] - Time of Disposition: 15:41
[2024-10-21 15:02] VITALS: BP 146/67; PULSE 94; RESP 20; TEMP 36.3; O2SAT 97
[2024-10-21 16:00] VITALS: BP 138/70; PULSE 88; RESP 20; TEMP 36.7; O2SAT 98
== END 2024-10-21 16:00 | disposition home or self-care (01) ==
PROVIDERS: Emergency Provider Emergency Medicine; PCP Internal Medicine
DX: S62.92XA Unspecified fracture of left hand, initial encounter for closed fracture (principal); I10 Essential (primary) hypertension; J43.9 Emphysema, unspecified; Z87.891 Personal history of nicotine dependence; W19.XXXA Unspecified fall, initial encounter
CPT/HCPCS: 29125; 73130; 99284

== ENCOUNTER 2024-11-12 08:27 | Outpatient (CLI) | payer MEDICARE, OTHER, SELFPAY ==
--- NOTE | ~2024-11-12 | XR_ITS ---
XR hand LT min 3V Ordering provider: Huy Liz MD History: . 5th metacarpal fx F/U - 3 weeks, 10/22/24 . Comparison: October 24, 2024 FINDINGS: BONES: Healing fracture in the fifth metacarpal bone. Angulation is noted with No change in alignment . JOINT SPACES: Narrowing of the proximal and distal interphalangeal joints. Osteoarthritic changes of the first carpometacarpal joint. SOFT TISSUES: Unremarkable. IMPRESSION: Healing fracture in the fifth metacarpal bone with no change in alignment. Reviewed, dictated and finalized at location A. LING ASSOCIATE
--- OUTSIDE RECORDS SUMMARY | 2024-11-18 11:32 | XMS_ITS | Encounter Summary ---
Author Organization [facility] Address [address] [place] [address] Phone Care Team Providers Care Director Of Physical Security Name Role Phone Torito Gonzalez MD Primary Care Provider [phone] Guille Collier MD Unavailable Felisa Jacob RN Unavailable Unavailable Reason for Visit * Reason Onset Date Comments Patient Outreach 05/17/2024 Encounter Details Date Type Department Care Team (Late st Contact Info) Description 05/17/2024 Patient Outreach [facility] [employer] [address] [place] [address] Felisa Jacob, RN [place] Patient Outreach Social History Tobacco Use Types Packs/Day Years Used Date Smoking Tobacco: Former Cigarettes Q uit: 12/07/2009 Passive Smoke Exposure: Past Smokeless Tobacco: Never Alcohol Use Standard Drinks/Week Comments Not Currently 0 (1 standard drink = 0.6 oz pur e alcohol) [facility] Utilities Answer Date Recorded In the past 12 months has [employer] gas, oil, or water [employer] threatened to shut off services in your home? Patient declined 11/16/2023 Social Connection and Isolation Panel [NHANES] A nswer Date Recorded In a typical week, how many times do you talk on the phone with family, friends, or neighbors? Patient declined 11/16/2023 How often do you get togethe r with friends or relatives? Patient declined 11/16/2023 How often do you attend hindu or hinduism serv ices? Patient declined 11/16/2023 Do you belong to any clubs o r organizations such as hindu groups, unions, fraternal or athletic groups, or school groups? Patient declined 11/16/2023 How often do you attend meet ings of the clubs or organizations you belong to? Patient declined 11/16/2023 Are you , , di vorced, , never , or living with a partner? Patient declined 11/16/2023 AUDIT-C Answer Date Recorded Q1: How often do you have a drink containing alc ohol? Patient declined 11/16/2023 Q2: How many drinks containi ng alcohol do you have on a typical day when you are drinking? Patient declined 11/16/2023 Q3: How often do you have si x or more drinks on one occasion? Patient declined 11/16/2023 Overall Financial Resource Strain (CARDIA) Answe r Date Recorded How hard is it for you to pa y for the very basics like food, housing, medical care, and heating? Patient declined 11/16/2023 PHQ-2 Answer Date Recorded Total Score - Questions 1-9 0 04/29 [facility] - Occupational Stress Questionnaire Answer Date Recorded Do you feel stress - tense, restless, nervous, or anxious, or unable to sleep at night because your mind is troubled all the time - these days? Patient declined 11/16/2023 Exercise Vital Sign Answer Date Recorde d On average, how many days pe r week do you engage in moderate to strenuous exercise (like a brisk walk)? Patient declined On average, how many minutes do you engage in exercise at this level? Patient declined 11/16/2023 Hunger Vital Sign Answer Date Recorded Within the past 12 months, y ou worried that your food would run out before you got the money to buy more. Patient declined Within the past 12 months, t he food you bought just didn't last and you didn't have money to get more. Patient declined PRAPARE - Transportation Answer Date Re corded In the past 12 months, has l ack of transportation kept you from medical appointments or from getting medications? Patient declined 11/16/2023 In the past 12 months, has l ack of transportation kept you from meetings, work, or from getting things needed for daily living? Patient declined 11/16/2023 Housing Stability Vital Sign Answer Lino e Recorded In the last 12 months, was t here a time when you were not able to pay the mortgage or rent on time? Patient declined 11/16/20 Number of Places Lived in the Last Year Not on f ile 11/16/2023 In the last 12 months, was t here a time when you did not have a steady place to sleep or slept in a nursing home (including now)? Patient declined 11/16/2023 Education Answer Date Recorded What is the highest level of school you have completed or the highest degree you have received? Master's degree (e.g., MA, MS, Nathalia, MEd, OUTGOING INSPECTOR, VANESSA) 02/10/2023 Sexually Active Control Partners Comments Not Currently Comments No Sex and Gender Information Value Date Recorded Sex Assigned at Not on file Legal Sex Female 10:44 PM CDT Gender Identity Not on file Sexual Orientation Not on file documented as of this encounter Functional Status * Question Answer Date of Assessment Author Little interest or pleasure in doing things Not at all 05/17/2024 8:15 AM CDT JacobFebruary Feeling down, depressed, or hopeless Not at all 04/29 8:15 AM CDT JamesFebruary * Over the past 2 weeks, how often have you been bothered by any of the following problems? Question Answer Date of Assessment Author Patient Health Questionnaire-2 Score 0 04/29 8:15 AM CDT February documented as of this encounter Progress Notes * Felisa Jacob RN - 05/17/2024 9:59 AM CDT Gabbie Chris was identified as high risk MSSP on 05/17/24 . CM outreach placed to offer RN care management assistance. Patient was seen in office today. Per provider, patient has no care management needs at this time. documented in this encounter Plan of Treatment Upcoming Encounters Date Type Department Care Team (Late st Contact Info) Description 11/19/2024 8:00 AM BUCKLE STRAP PUNCHER Office Visit [facility] - Internal Medicine - [place] [address] [place] [id number] Torito Gonzalez MD [address] [place] [address] documented as of this encounter Visit Diagnoses Not on filedocumented in this encounter Additional Health Concerns Assessment Noted Time PHQ-9 Depression Total Score: 0 05/17/20 8:15 AM CDT documented as of this encounter Care Teams Director Of Physical Security Relationship Specialty Start Date End Date Torito Gonzalez MD [address] [place] [address] PCP - General Internal Medicine 02/01/20 Guille Collier MD [address] [place] [address] Consulting Physician Pulmonary Disease 12/06/22 Felisa Jacob RN [place] Nurse Frog Or Oyster Farmworker 05/17/24 05/17/24 documented as of this encounter
--- OUTSIDE RECORDS SUMMARY | 2024-11-18 11:32 | XMS_ITS | Encounter Summary ---
Author Organization [facility] Care Team Providers Care Safety Technician Name Role Phone Torito Gonzalez MD Primary Care Provider [phone] Guille Collier MD Unavailable Felisa Jacob RN Unavailable Unavailable Encounter Details Date Type Department Care Team (Latest Contact Info) Description 05/17/2024 Travel Social History Tobacco Use Types Packs/Day Years Used Date Smoking Tobacco: Former Cigarettes Q uit: 12/07/2009 Passive Smoke Exposure: Past Smokeless Tobacco: Never Alcohol Use Standard Drinks/Week Comments Not Currently 0 (1 standard drink = 0.6 oz pur e alcohol) [facility] Utilities Answer Date Recorded In the past 12 months has [employer], gas, oil, or water company threatened to shut off services in your home? Patient declined 11/16/2023 Social Connection and Isolation Panel [NHANES] A nswer Date Recorded In a typical week, how many times do you talk on the phone with family, friends, or neighbors? Patient declined 11/16/2023 How often do you get togethe r with friends or relatives? Patient declined 11/16/2023 How often do you attend voodoo or samaritan serv ices? Patient declined 11/16/2023 Do you belong to any clubs o r organizations such as voodoo groups, unions, fraternal or athletic groups, or [...] Total Score - Questions 1-9 0 04/29 [facility] - Occupational Stress Questionnaire Answer Date Recorded [...] or rent on time? Patient declined 11/16/20 23 Number of Places Lived in the Last Year Not on f ile 11/16/2023 In the last 12 months, was t here a time when you did not have a steady place to sleep or slept in a long-term (including now)? Patient declined 11/16/2023 Education Answer Date Recorded What is the highest level of school you have completed or the highest degree you have received? Master's degree (e.g., MA, MS, Nathalia, MEd, STRATEGIC SOURCING CONSULTANT, VANESSA) 02/10/2023 Sexually Active Control Partners Comments [...] Not at all 05/17/2024 8:15 AM CDT JamesFebruary Feeling down, depressed, or hopeless Not at all 04/29 8:15 AM CDT JamesFebruary * Over the past 2 weeks, how often have you been bothered by any of the following problems? Question Answer Date of Assessment Author Patient Health Questionnaire-2 Score 0 04/29 8:15 AM CDT February documented as of this encounter Plan of Treatment Upcoming Encounters Date Type Department Care Team (Late st Contact Info) Description 11/19/2024 8:00 AM JEWELRY SALES COORDINATOR Office Visit [facility] - Internal Medicine [facility] [address] [place] [phone] Torito Gonzalez MD [address] [place] [address] documented as of this encounter Visit Diagnoses Not on filedocumented in this encounter Additional Health Concerns Assessment Noted Time PHQ-9 Depression Total Score: 0 05/17/20 24 8:15 AM CDT documented as of this encounter Care Teams Safety Technician Relationship Specialty Start Date End Date Torito Gonzalez MD [address] [place] [address] PCP - General Internal Medicine 02/01/20 Guille Collier MD [address] [place] [phone] Consulting Physician Pulmonary Disease 12/06/22 Felisa Jacob, RN [place] Nurse Benefits Technician 05/17/24 05/17/24 documented as of this encounter
--- OUTSIDE RECORDS SUMMARY | 2024-11-18 11:32 | XMS_ITS | Encounter Summary ---
Author Organization [facility] Address [address] [place] [address] Phone Care Team Providers Care J2Ee Programmer Name Role Phone Torito Gonzalez MD Primary Care Provider [phone] Guille Collier MD Unavailable Encounter Details Date Type Department Care Team (Late st Contact Info) Description 11/22/2023 Telephone [facility] - Internal Medicine - [place] [address] [place] [address] Torito Gonzalez MD [address] [facility] [place] [address] Social History Tobacco Use Types Packs/Day Years Used Date Smoking Tobacco: Former Cigarettes Q uit: 12/07/2009 Passive Smoke Exposure: Past Smokeless Tobacco: Never Alcohol Use Standard Drinks/Week Comments Not Currently 0 (1 standard drink = 0.6 oz pur e alcohol) [facility] Utilities Answer Date Recorded In the past 12 months has [employer], gas, oil, or water [employer]iz[employer] threatened to shut off services in your home? Patient declined 11/16/2023 Social Connection and Isolation Panel [NHANES] A nswer Date Recorded In a typical week, how many times do you talk on the phone with family, friends, or neighbors? Patient declined 11/16/2023 How often do you get togethe r with friends or relatives? Patient declined 11/16/2023 How often do you attend anabaptism or church serv ices? Patient declined 11/16/2023 Do you belong to any clubs o r organizations such as anabaptism groups, unions, fraternal or athletic groups, or [...] Date Recorded Total Score - Questions 1-9 6 01/26 [facility] Occupat ional [facility] - Occupational Stress Questionnaire Answer Date Recorded [...] place to sleep or slept in a custodial (including now)? Patient declined 11/16/2023 Education Answer Date Recorded What is the highest level of school you have completed or the highest degree you have received? Master's degree (e.g., MA, MS, Nathalia, MEd, HEALTH AND NUTRITION SPECIALIST, VANESSA) 02/10/2023 Sexually Active Control Partners Comments Not Currently Comments No Sex and Gender Information Value Date Recorded Sex Assigned at Not on file Legal Sex Female 10:44 PM CDT Gender Identity Not on file Sexual Orientation Not on file documented as of this encounter Miscellaneous Notes * Telephone Encounter - Francisca Terrazas CMA - 11/22/2023 4:13 PM SENIOR SAFETY MANAGEMENT CONSULTANT Spoke to patient and gave lab results. OR SAFETY MANAGEMENT CONSULTANT * Telephone Encounter - Francisca Terrazas CMA - 11/22/2023 4:13 PM SENIOR SAFETY MANAGEMENT CONSULTANT ----- Message from Pattie Kidd RN sent at 11/17/2023 1:26 PM SENIOR SAFETY MANAGEMENT CONSULTANT ----- ----- Message ----- From: Torito Gonzalez MD Sent: 11/17/2023 9:54 AM SENIOR SAFETY MANAGEMENT CONSULTANT To: [place] [facility] Nurse Pool CMP, lipid profile-okay. No change in meds. OR SAFETY MANAGEMENT CONSULTANT documented in this encounter Plan of Treatment Upcoming Encounters Date Type Department Care Team (Late st Contact Info) Description 11/19/2024 8:00 AM SENIOR SAFETY MANAGEMENT CONSULTANT Office [facility] - [facility] - [place] [address] [place] [address] Torito Gonzalez MD [address] [place] [address] documented as of this encounter Visit Diagnoses Not on filedocumented in this encounter Additional Health Concerns Assessment Noted Time PHQ-9 Depression Total Score: 6 02/11/20 23 8:00 AM CDT documented as of this encounter Care Teams J2Ee Programmer Relationship Specialty Start Date End Date Torito Gonzalez MD [address] [place] [address] PCP - General Internal Medicine 02/01/20 Guille Collier MD [address] [place] [address] Consulting Physician Pulmonary Disease 12/06/22 documented as of this encounter
--- OUTSIDE RECORDS SUMMARY | 2024-11-18 11:32 | XMS_ITS | Encounter Summary ---
Author Organization [facility] Address [address] [place] [address] Phone Care Team Providers Care Petroleum Products District Supervisor Name Role Phone Torito Gonzalez MD Primary Care Provider [phone] Guille Collier MD Unavailable Reason for Visit * Reason Onset Date Comments Care Management 06/28/2024 Encounter Details Date Type Department Care Team (Late st Contact Info) Description 06/28/2024 Patient Outreach [facility] [address] [place] [address] Kristine Macias PR Care Management Social History Tobacco Use Types Packs/Day Years Used Date Smoking Tobacco: Former Cigarettes Q uit: 12/07/2009 Passive Smoke Exposure: Past Smokeless Tobacco: Never Alcohol Use Standard Drinks/Week Comments Not Currently 0 (1 standard drink = 0.6 oz pur e alcohol) [facility] Utilities Answer Date Recorded In the past 12 months has [employer], gas, oil, or water [employer] threatened to shut off services in your home? Patient declined 11/16/2023 Social Connection and Isolation Panel [NHANES] A nswer Date Recorded In a typical week, how many times do you talk on the phone with family, friends, or neighbors? Patient declined 11/16/2023 How often do you get togethe r with friends or relatives? Patient declined 11/16/2023 How often do you attend anglican or restorationism serv ices? Patient declined 11/16/2023 Do you belong to any clubs o r organizations such as anglican groups, unions, fraternal or athletic groups, or [...] Total Score - Questions 1-9 0 04/29 [facility] - Occupational Stress Questionnaire Answer Date [...] place to sleep or slept in a jail (including now)? Patient declined 11/16/2023 Education Answer Date Recorded What is the highest level of school you have completed or the highest degree you have received? Master's degree (e.g., MA, MS, Nathalia, MEd, MATH PROFESSOR, VANESSA) 02/10/2023 Sexually Active Control Partners Comments Not Currently Comments No Sex and Gender Information Value Date Recorded Sex Assigned at Not on file Legal Sex Female 10:44 PM CDT Gender Identity Not on file Sexual Orientation Not on file documented as of this encounter Progress Notes * Kristine Macias - 06/28/2024 12:36 PM CDT Outbound call placed to Gabbie Chris regarding enrollment to [facility] services with [facility]. Patient answered the phone, who states that patient would not be interested in [facility] Management Services with [facility]. Program marked declined and encounter closed. documented in this encounter Plan of Treatment Upcoming Encounters Date Type Department Care Team (Late st Contact Info) Description 11/19/2024 8:00 AM ANESTHESIOLOGY PHYSICIAN Office Visit [facility] - Internal Medicine - [place] [address] [place] [address] Torito Gonzalez MD [address] [place] [address] documented as of this encounter Visit Diagnoses Not on filedocumented in this encounter Additional Health Concerns Assessment Noted Time PHQ-9 Depression Total Score: 0 05/17/20 24 8:15 AM CDT documented as of this encounter Care Teams Petroleum Products District Supervisor Relationship Specialty Start Date End Date Torito Gonzalez MD [address] [place] [address] PCP - General Internal Medicine 02/01/20 Guille Collier MD [address] [place] [address] Consulting Physician Pulmonary Disease 12/06/22 documented as of this encounter
--- OUTSIDE RECORDS SUMMARY | 2024-11-18 11:32 | XMS_ITS | Encounter Summary ---
Author Organization [facility] Care Team Providers Care Fire Control System Installer Name Role Phone Torito Gonzalez MD Primary Care Provider [phone] Guille Collier MD Unavailable Encounter Details Date Type Department Care Team (Latest Contact Info) Description 11/16/2023 Travel Social History Tobacco Use Types Packs/Day Years Used Date Smoking Tobacco: Former Cigarettes Q uit: 12/07/2009 Passive Smoke Exposure: Past Smokeless Tobacco: Never Alcohol Use Standard Drinks/Week Comments Not Currently 0 (1 standard drink = 0.6 oz pur e alcohol) [facility] Utilities Answer Date Recorded In the past 12 months has [employer] electric, gas, oil, or water company threatened [...] declined 11/16/2023 How often do you attend baptism or roman catholic serv ices? Patient declined 11/16/2023 Do you belong to any clubs o r organizations such as baptism groups, unions, fraternal or athletic groups, or [...] Total Score - Questions 1-9 6 01/26 [facility] - Occupational Stress [...] place to sleep or slept in a half-way (including now)? Patient declined 11/16/2023 Education Answer Date Recorded What is the highest level of school you have completed or the highest degree you have received? Master's degree (e.g., MA, MS, Nathalia, MEd, PIPE FITTER SUPERVISOR MAINTENANCE, VANESSA) 02/10/2023 Sexually Active Control Partners Comments Not Currently Comments No Sex and Gender Information Value Date Recorded Sex Assigned at Not on file Legal Sex Female 10:44 PM CDT Gender Identity Not on file Sexual Orientation Not on file documented as of this encounter Functional Status * Audit-C Score Answer Date of Assessment Author -1 11/16/2023 8:21 AM Francisca Connell CMA * Within the last year, have you been humiliated or emotionally abused in other ways by your partner or ex-partner? Answer Date of Assessment Author Patient declined 11/16/2023 8:21 AM Francisca Connell CMA * Within the last year, have you been afraid of your partner or ex-partner? Answer Date of Assessment Author Patient declined 11/16/2023 8:21 AM Francisca Connell CMA * Within the last year, have you been raped or forced to have any kind of sexual activity by your partner or ex-partner? Answer Date of Assessment Author Patient declined 11/16/2023 8:21 AM Francisca Connell CMA * Within the last year, have you been kicked, hit, slapped, or otherwise physically hurt by your partner or ex-partner? Answer Date of Assessment Author Patient declined 11/16/2023 8:21 AM Francisca Connell CMA * Question Answer Date of Assessment Author Q1: How often do you have a drink containing alcohol? Patient declined 11/16/2023 8:21 AM Francisca Connell CMA Q2: How many drinks containing alcohol do you have on a typical day when you are drinking? Patient declined 11/16/2023 8:21 AM Juan Jose Connell CMA Q3: How often do you have six or more drinks on one occasion? Patient declined 11/16/2023 8:21 AM Francisca Connlel CMA documented as of this encounter Plan of Treatment Upcoming Encounters Date Type Department Care Team (Late st Contact Info) Description 11/19/2024 8:00 AM INSPECTOR TOOL Office Visit [facility] - [facility] - [place] [address] [place] [address] Torito Gonzalez MD [address] [place] [address] documented as of this encounter Visit Diagnoses Not on filedocumented in this encounter Additional Health Concerns Assessment Noted Time PHQ-9 Depression Total Score: 6 02/11/20 23 8:00 AM CDT documented as of this encounter Care Teams Fire Control System Installer Relationship Specialty Start Date End Date Torito Gonzalez MD [address] [place] [address] PCP - General Internal Medicine 02/01/20 Guille Collier MD [address] [place] [address] Consulting Physician Pulmonary Disease 12/06/22 documented as of this encounter
--- OUTSIDE RECORDS SUMMARY | 2024-11-18 11:32 | XMS_ITS | Encounter Summary ---
Author Organization [facility] Address [address] [place] [address] Phone Care Team Providers Care Jewel Bearing Facer Name Role Phone Torito Gonzalez MD Primary Care Provider [phone] Guille Collier MD Unavailable Encounter Details Date Type Department Care Team (Late st Contact Info) Description 04/17/2024 Telephone [facility] - Internal Medicine - [place] [address] [place] [address] Torito Gonzalez MD [address] [address] Social History Tobacco Use Types Packs/Day Years Used Date Smoking Tobacco: Former Cigarettes Q uit: 12/07/2009 Passive Smoke Exposure: Past Smokeless Tobacco: Never Alcohol Use Standard Drinks/Week Comments Not Currently 0 (1 standard drink = 0.6 oz pur e alcohol) [facility] Utilities Answer Date Recorded In the past 12 months has [employer], gas, oil, or water [employer] threatened to shut off services in your home? Patient declined 11/16/2023 Social Connection and Isolation Panel [NHANES] A nswer Date Recorded In a typical week, how many times do you talk on the phone with family, friends, or neighbors? Patient declined 11/16/2023 How often do you get togethe r with friends or relatives? Patient declined 11/16/2023 How often do you attend advent or scientologist serv ices? Patient declined 11/16/2023 Do you belong to any clubs o r organizations such as advent groups, unions, fraternal or athletic groups, or [...] Total Score - Questions 1-9 6 01/26 [facility] Occupat ional [facility] - Occupational Stress Questionnaire Answer Date Recorded [...] Master's degree (e.g., MA, MS, Nathalia, MEd, GRIDDLE COOK, VANESSA) 02/10/2023 Sexually Active Control Partners Comments Not Currently Comments No Sex and Gender Information Value Date Recorded Sex Assigned at Not on file Legal Sex Female 10:44 PM CDT Gender Identity Not on file Sexual Orientation Not on file documented as of this encounter Miscellaneous Notes * Addendum Note - Mk Kidd RN - 04/25/2024 2:38 PM CDTAddended by: MK KIDD on: 04/25/2024 02:38 PM Modules accepted: Orders * Telephone Encounter - Mk Kidd RN - 04/25/2024 2:37 PM CDT faxed * Telephone Encounter - Torito Gonzalez MD - 04/17/2024 3:23 PM CDT Okay to write order * Telephone Encounter - Jacob February - 04/17/2024 1:00 PM CDT Patient asked if you will send an 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 She has not used them in over a year documented in this encounter Plan of Treatment Upcoming Encounters Date Type Department Care Team (Late st Contact Info) Description 11/19/2024 8:00 AM ELECTRICAL INSTRUMENT REPAIRER Office Visit [facility] - Internal Medicine [facility] [address] [place] [address] Torito Gonzalez MD [address] [place] [address] documented as of this encounter Visit Diagnoses Diagnosis COPD with acute exacerbation (HCC)- Primary Obstructive chronic bronchitis with exacerbation Cough, unspecified type documented in this encounter Additional Health Concerns Assessment Noted Time PHQ-9 Depression Total Score: 6 02/11/20 23 8:00 AM CDT documented as of this encounter Care Teams Jewel Bearing Facer Relationship Specialty Start Date End Date Torito Gonzalez MD [address] [place] [address] PCP - General Internal Medicine 02/01/20 Guille Collier MD [address] [place] [address] Consulting Physician Pulmonary Disease 12/06/22 documented as of this encounter
--- OUTSIDE RECORDS SUMMARY | 2024-11-18 11:32 | XMS_ITS | Clinical Summary ---
Author Organization [facility] Address [address] [place] [address] Phone Care Team Providers Care Sustainability Communicator Name Role Phone Torito Gonzalez MD Primary Care Provider Guille Collier MD Unavailable Allergies Active Allergy Reactions Criticality Noted Date Comments Amoxicillin Nausea 01/14/2022 Doxycycline Other (see Comments) 05/17/2023 Severe Back Pain Levofloxacin Palpitations 09/16/2022 Medications amLODIPine (NORVASC) 5 MG Tablet Take 5 mg by mouth daily. Active albuterol 108 (90 Base) MCG/ACT Aerosol Solution take 1-2 Puffs by inhalation every 6 hours as needed for Wheezing. 18 g 2 2 Active aspirin 81 MG Chewable Tablet Baby Aspirin 81 mg chewable tablet Chew 1 tablet every day by oral route. Active famotidine (PEPCID) 20 MG Tablet Take 1 Tablet by mouth 2 times daily. 90 Tablet 2 Active Calcium Carbonate (CALCIUM 500 PO) Take by mouth. Activ e Denosumab (PROLIA) 60 MG/ML Solution Prefilled Syringe 60 mg by Subcutaneous route. 3 Active Dupilumab (Dupixent) 200 MG/1.14ML Solution Pen-injector by Subcutaneous route. Active ipratropium-alb uterol (DUO-NEB) 0.5-2.5 (3) MG/3ML Solution 3 mL by Nebulization route 4 times daily. DX J44.9 COPD 360 mL 5 3 Active Perforomist 20 MCG/2ML Nebulizer Soln USE 1 VIAL IN NEBULIZER ONCE DAILY 3 Active budesonide (PULMICORT) 0.5 MG/2ML Suspension USE 1 VIAL IN NEBULIZER ONCE DAILY 3 Active Active Problems Problem Noted Date Diagnosed Date GERD without esophagitis 05/17/2024 Eczema 11/16/2023 TOOTIE (obstructive sleep apnea) 12/06/2022 Restless legs syndrome (RLS) 12/06/2022 Centrilobular emphysema 10/07/2022 Allergic rhinitis 10/07/2022 Essential (primary) hypertension 10/02/2013 Resolved Problems Problem Noted Date Diagnosed Date Resolved Date Hyperlipidemia 10/02/2013 05/17/2024 Immunizations Immunization Administration Dates Next Due Covid-19, Mrna, Lnp-s, Pf, 30 Mcg/0.3 Ml Dose (P fizer) 02/24/2021,02/03/2021 Influenza Vaccine, Quadrivalent, PF 09/14/2022,1 Influenza, High-dose, Quadrivalent 09/17/2021 Influenza, Quadrivalent, Adjuvanted 08/17/2023 Pneumococcal conjugate PCV20 , polysaccharide [id number] conjugate, adjuvant, PF 10/07/2022 Family History Medical History Relation Name Comments Cancer Father Hypertension Father Relation Name Status Comments Brother 1 Brother 2 Father Alive Mother Social History Tobacco Use Types Packs/Day Years Used Date Smoking Tobacco: Former Cigarettes Q uit: 12/07/2009 Passive Smoke Exposure: Past Smokeless Tobacco: Never Tobacco Cessation:Counseling Given: Not Answered Alcohol Use Standard Drinks/Week Comments Not Currently 0 (1 standard drink = 0.6 oz pur e alcohol) [facility] Utilities Answer Date Recorded In the past 12 months has [employer], [employer], oil, or water [employer] threatened to shut off services in your home? Patient declined 11/16/2023 Social Connection and Isolation Panel [NHANES] A nswer Date Recorded In a typical week, how many times do you talk on the phone with family, friends, or neighbors? Patient declined 11/16/2023 How often do you get togethe r with friends or relatives? Patient declined 11/16/2023 How often do you attend sikhism or baptism serv ices? Patient declined 11/16/2023 Do you belong to any clubs o r organizations such as sikhism groups, unions, fraternal or athletic groups, or [...] Total Score - Questions 1-9 0 04/29 [facility] - Occupational Stress Questionnaire Answer [...] place to sleep or slept in a skilled nursing (including now)? Patient declined 11/16/2023 Education Answer Date Recorded What is the highest level of school you have completed or the highest degree you have received? Master's degree (e.g., MA, MS, Nathalia, MEd, CEMENT PAVER, VANESSA) 02/10/2023 Sexually Active Control Partners Comments Not Currently Comments No Sex and Gender Information Value Date Recorded Sex Assigned at Not on file Legal Sex Female 10:44 PM CDT Gender Identity Not on file Sexual Orientation Not on file Last Filed Vital Signs Vital Sign Reading Time Taken Comments Blood Pressure 106/72 05/17/2024 8:16 AM CDT Pulse 71 05/17/2024 8:16 AM CDT Temperature 36.8 ??C (98.3 ??F) 05/17/2024 8:16 AM CD T Respiratory Rate 12 05/17/2024 8:16 AM CDT Oxygen Saturation 98% 05/17/2024 8:16 AM CDT Inhaled Oxygen Concentration - - Weight 64.5 kg (142 lb 3.2 oz) 05/17/2024 8:16 A M CDT Height 165.1 cm (5' 5 ) 05/17/2024 8:16 AM CDT Body Mass Index 23.66 05/17/2024 8:16 AM CDT Plan of Treatment Upcoming Encounters Date Type Department Care Team (Late st Contact Info) Description 11/19/2024 8:00 AM SENIOR QUALITY MANAGER Office Visit [facility] - Internal Medicine - [place] [address] [place] [address] Torito Gonzalez MD [address] [place] [address] Health Maintenance Due Date Last Done Comments Hepatitis C Virus (HCV) Screening 1955 TdaP Immunization 1955 Cologuard 2003 Respiratory Syncytial Virus (RSV) Immunization (Adult) (1 - Risk 60-74 years 1-dose series) 2013 Immunochemical Fecal Occult Blood 09/01/2022 09/01/2021, 08/13/2020 Influenza Immunization (#1) 07/29/202407/30, 09/14/2022, 09/17/2021, Additional history exists DEXA Bone Density 11/08/2024 11/08/2022, , 06/13/2017, Additional history exists Mammogram 11/08/2024 11/08/2022, 09/29, 10/26/2021, Additional history exists Colonoscopy 04/22/2032 04/22/2022, 03/29, 04/22/2022, Additional history exists Colorectal Cancer Screening 04/22/2032 04/22/2022, 03/29, 04/22/2022, Additional history exists Pneumococcal Immunization (50+ years) Completed 10/07/2022 Pneumococcal Immunization Combined Discontinued 10/07/2022 SARS-COV-2 Immunization Discontinued 11/23/20, 02/22/2023, 11/11/2021, Additional history exists Hepatitis B Immunization Aged Out No longer eligible based on patient's age to complete this topic Meningococcal Immunization (ACWY) Aged Out No longer eligible based on patient's age to complete this topic Rotavirus Immunization Aged Out No lo nger eligible based on patient's age to complete this topic Zoster Immunization Discontinued Procedures Procedure Name Priority Date/Time Associated Diagnosis Comments XR - UPPER EXTREMITY 11/12/2024 12:00 AM SENIOR QUALITY MANAGER XR - UPPER EXTREMITY 10/21/2024 12:00 AM SENIOR QUALITY MANAGER HM COLONOSCOPY 04/22/2022 12:00 AM CDT MAMMOGRAM BILATERAL GENERIC 10/26/2021 12:00 AM SENIOR QUALITY MANAGER from Last 3 Months or Most Recently Relevant to Health Maintenance Results * XR - UPPER EXTREMITY (11/12/2024 12:00 AM SENIOR QUALITY MANAGER) Only the most recent of2 resultswithin the time period is included. 11/12/2024 us Provider Scan IMG DIAGNOSTIC ORDERABLES Final Result SCAN * HM COLONOSCOPY (04/22/2022 12:00 AM CDT) 04/22/2022 us Not On File Provider PROCEDURE/MINOR SURGICAL OR DERABLES Final Result SCAN * MAMMOGRAM BILATERAL MISCELLANEOUS (10/26/2021 12:00 AM SENIOR QUALITY MANAGER) 10/26/2021 us Not On File Provider IMG MAMMO ORDERABLES Final Result SCAN from Last 3 Months or Most Recently Relevant to Health Maintenance Insurance MEDIC[place] [address] Care Teams Sustainability Communicator Relationship Specialty Start Date End Date Torito Gonzalez MD [address] [place] [address] PCP - General Internal Medicine 02/01/20 Guille Collier MD [address] [place] [id number] Consulting Physician Pulmonary Disease 12/06/22
--- OUTSIDE RECORDS SUMMARY | 2024-11-18 11:32 | XMS_ITS | Encounter Summary ---
Author Organization [facility] Address [address] [place] [address] Phone Care Team Providers Care Financial Services Representative Name Role Phone Torito Gonzalez MD Primary Care Provider [phone] Guille Collier MD Unavailable Felisa Jacob RN Unavailable Unavailable Reason for Visit * Reason Comments Hypertension No concerns Encounter Details Date Type Department Care Team ([facility] Contact Info) Description 05/17/2024 8:15 AM CDT Office Visit [facility] - Internal Medicine - [place] [address] [place] [address] Torito Gonzalez MD [address] [place] [address] Essential (primary) hypertension (Primary Dx); Centrilobular emphysema (HCC); GERD without esophagitis Discharge Disposition: Discharged to home or Selfcare Social History Tobacco Use Types Packs/Day Years Used Date Smoking Tobacco: Former Cigarettes Q uit: 12/07/2009 Passive Smoke Exposure: Past Smokeless Tobacco: Never Tobacco Cessation:Counseling Given: Not Answered Alcohol Use Standard Drinks/Week Comments Not Currently 0 (1 standard drink = 0.6 oz pur e alcohol) [facility] Utilities Answer Date Recorded In the past 12 months has th e electric, gas, oil, or water company threatened [...] declined 11/16/2023 How often do you attend scientologist or uatsdin serv ices? Patient declined 11/16/2023 Do you belong to any clubs o r organizations such as scientologist groups, unions, fraternal or athletic groups, or [...] Total Score - Questions 1-9 0 04/29 [facility] of Occupat ional Health - Occupational Stress [...] place to sleep or slept in a snf (including now)? Patient declined 11/16/2023 Education Answer Date Recorded What is the highest level of school you have completed or the highest degree you have received? Master's degree (e.g., MA, MS, Nathalia, MEd, DOUBLE CUT SAWYER, VANESSA) 02/10/2023 Sexually Active Control Partners Comments Not Currently Comments No Sex and Gender Information Value Date Recorded Sex Assigned at Not on file Legal Sex Female 10:44 PM CDT Gender Identity Not on file Sexual Orientation Not on file documented as of this encounter Last Filed Vital Signs Vital Sign Reading [...] Mass Index 23.66 05/17/2024 8:16 AM CDT documented in this encounter Functional Status * Question Answer Date of Assessment Author Little interest or pleasure in doing things Not at all 05/17/2024 8:15 AM CDT Avani James Feeling down, depressed, or hopeless Not at all 04/29 8:15 AM CDT February * Over the past 2 weeks, how often have you been bothered by any of the following problems? Question Answer Date of Assessment Author Patient Health Questionnaire-2 Score 0 04/29 8:15 AM CDT February documented as of this encounter Patient Instructions * Patient Instructions* Torito Gonzalez MD - 05/17/2024 8:15 AM CDT documented in this encounter Progress Notes * February - 05/17/2024 8:15 AM CDT Gabbie Chris, 68 y.o., female is here for Hypertension (No concerns) Medication Refills: Patient reports/denies need for medication refills. Orders Pended: no Requested Prescriptions No prescriptions requested or ordered in this encounter Home Medications Medication Sig Start Date End Date Taking? Authorizing Provider albuterol 108 (90 Base) MCG/ACT Aerosol Solution take 1-2 Puffs by inhalation every 6 hours as needed for Wheezing. 06/21/22 Yes Torito Gonzalez MD amLODIPine (NORVASC) 5 MG Tablet Take 5 mg by mouth daily. Yes Provider, Not On File aspirin 81 MG Chewable Tablet Baby Aspirin 81 mg chewable tablet Chew 1 tablet every day by oral route. Yes Christie Lancaster MD budesonide (PULMICORT) 0.5 MG/2ML Suspension USE 1 VIAL IN NEBULIZER ONCE DAILY 10/17/23 ProviderChristie MD Calcium Carbonate (CALCIUM 500 PO) Take by mouth. Yes Christie Lancaster MD Denosumab (PROLIA) 60 MG/ML Solution Prefilled Syringe 60 mg by Subcutaneous route. 12/21/22 Yes Christie Lancaster MD Dupilumab (Dupixent) 200 MG/1.14ML Solution Pen-injector by Subcutaneous route. Yes Christie Lancaster MD famotidine (PEPCID) 20 MG Tablet Take 1 Tablet by mouth 2 times daily. 09/14/22 Yes Torito Gonzalez MD ipratropium-albuterol (DUO-NEB) 0.5-2.5 (3) MG/3ML Solution 3 mL by Nebulization route 4 times daily. DX J44.9 COPD 06/30/23 Yes Torito Gonzalez MD mupirocin (BACTROBAN) 2 % Ointment Apply. Patient not taking: Reported on 05/17/2024 01/25/23 Provider, MD Christie Perforomist 20 MCG/2ML Nebulizer Soln USE 1 VIAL IN NEBULIZER ONCE DAILY 05/16/23 Yes Provider, MD Christie triamcinolone (KENALOG) 0.1 % Cream Apply to rash bid for 10 days Patient not taking: Reported on 05/17/2024 10/18/23 Torito Gonzalez MD There are no discontinued medications. I have reviewed the home medication list with the patient and have reconciled discrepancies. The list is accurate to the best of my knowledge. Smoking Status: Social History Tobacco Use Smoking status: Former Current packs/day: 0.00 Types: Cigarettes Quit date: 12/07/2009 Years since quittin.4 Passive exposure: Past Smokeless tobacco: Never Vaping Use Vaping status: Never Used Substance Use Topics Alcohol use: Not Currently Drug use: Never Smoking Cessation Counseling Given: no Health Care Maintenance: Health Maintenance Due Topic Date Due Hepatitis C Virus (HCV) Screening Never done TdaP Immunization Never done Zoster Immunization (1 of 2) Never done Respiratory Syncytial Virus (RSV) Immunization (Adult - or age 60+ years) (1 - 1-dose 60+ series) Never done SARS-COV-2 Immunization (2022- season) 2024 Orders Pended: no The following BPA's have been addressed with the patient today: BMI, Depression, Fall Risk, Nutrition, and Advanced Care Planning * Torito Gonzalez MD - 05/17/2024 8:15 AM CDT PROGRESS NOTE [facility] [place] [address] PHONE: [phone] FAX: [phone] 05/17/2024 NAME: Gabbie Chris, : 1955, Assessment ASSESSMENT & PLAN: Return in about 6 months (around 11/16/2024) for htn. Diagnoses and all orders for this visit: Essential (primary) hypertension Comments: Controlled. Continue current medication. Centrilobular emphysema (HCC) Comments: Stable. Continue current medication. GERD without esophagitis Comments: Stable. Continue current medication. Follow-up in 6 months, sooner if needed. Chief Complaint Patient presents with Hypertension No concerns Hypertension Patient is here for follow-up for hypertension other medical problems. Feeling well. Tolerating medications well. ROS Review of systems was negative, except as documented in HPI PHYSICAL EXAM VITALS: Wt Readings from Last 3 Encounters: 05/17/24 142 lb 3.2 oz (64.5 kg) 11/16/23 135 lb (61.2 kg) 10/18/23 138 lb (62.6 kg) Temp Readings from Last 3 Encounters: 05/17/24 98.3 ??F (36.8 ??C) (Temporal) 11/16/23 97.6 ??F (36.4 ??C) (Temporal) 10/18/23 98.4 ??F (36.9 ??C) (Temporal) BP Readings from Last 3 Encounters: 05/17/24 106/72 11/16/23 130/72 10/18/23 122/70 Pulse Readings from Last 3 Encounters: 05/17/24 71 11/16/23 72 10/18/23 76 Physical Exam Vitals and nursing note reviewed. Constitutional: Appearance: Normal appearance. HENT: Head: Normocephalic. Eyes: Extraocular Movements: Extraocular movements intact. Conjunctiva/sclera: Conjunctivae normal. Pupils: Pupils are equal, round, and reactive to light. Cardiovascular: Rate and Rhythm: Normal rate and regular rhythm. Pulses: Normal pulses. Heart sounds: Normal heart sounds. Pulmonary: Effort: Pulmonary effort is normal. Comments: Decreased air entry both lungs. No wheezing or rales. Abdominal: General: Abdomen is flat. Bowel sounds are normal. Palpations: Abdomen is soft. Musculoskeletal: General: Normal range of motion. Cervical back: Normal range of motion and neck supple. Skin: General: Skin is warm and dry. Neurological: General: No focal deficit present. Mental Status: She is alert and oriented to person, place, and time. Psychiatric: Mood and Affect: Mood normal. Behavior: Behavior normal. Past medical, surgical, social and family history has been reviewed and updated as necessary. Medications and allergies has been reviewed and updated. Allergies Allergen Reactions Amoxicillin Nausea Doxycycline Other (see Comments) Severe Back Pain Levaquin [Levofloxacin] Palpitations Current Outpatient Medications: albuterol 108 (90 Base) MCG/ACT Aerosol Solution amLODIPine (NORVASC) 5 MG Tablet aspirin 81 MG Chewable Tablet budesonide (PULMICORT) 0.5 MG/2ML Suspension Calcium Carbonate (CALCIUM 500 PO) Denosumab (PROLIA) 60 MG/ML Solution Prefilled Syringe Dupilumab (Dupixent) 200 MG/1.14ML Solution Pen-injector famotidine (PEPCID) 20 MG Tablet ipratropium-albuterol (DUO-NEB) 0.5-2.5 (3) MG/3ML Solution Perforomist 20 MCG/2ML Nebulizer Syl Marlow educated Gabbie regarding diagnoses and plan of care. She verbalizes understanding and will call the office if situation changes. Voice recognition software was utilized in this dictation. Despite proof reading, typographical errors and/or content errors may have occurred. By: Torito Gonzalez MD 05/17/2024 8:39 AM CDT documented in this encounter Plan of Treatment Upcoming Encounters Date Type Department Care Team (Late st Contact Info) Description 11/19/2024 8:00 AM GROUP FITNESS INSTRUCTOR Office Visit [facility] - Internal Medicine - [place] [address] [place] [address] Torito Gonzalez MD [address] [place] [address] documented as of this encounter Visit Diagnoses Diagnosis Essential (primary) hypertension- Primary Unspecified essential hypertension Centrilobular emphysema (HCC) Other emphysema GERD without esophagitis Esophageal reflux documented in this encounter Additional Health Concerns Assessment Noted Time PHQ-9 Depression Total Score: 0 05/17/20 8:15 AM CDT documented as of this encounter Care Teams Financial Services Representative Relationship Specialty Start Date End Date Torito Gonzalez MD [address] [place] [address] PCP - General Internal Medicine 02/01/20 Guille Collier MD [address] [place] [address] Consulting Physician Pulmonary Disease 12/06/22 Felisa Jacob, RN [place] Nurse Shut Off Worker 05/17/24 05/17/24 documented as of this encounter
--- OUTSIDE RECORDS SUMMARY | 2024-11-18 11:33 | XMS_ITS | Encounter Summary ---
Author Organization [employer] Care Team Providers Care Bookbinder Chief Name Role Phone Torito Gonzalez MD Primary Care Provider [phone] Guille Collier MD Unavailable Encounter Details Date Type Department Care Team (Latest Contact Info) Description 02/10/2023 Travel Social History Tobacco Use Types Packs/Day Years Used Date Smoking Tobacco: Former Cigarettes Q uit: 12/07/2009 Passive Smoke Exposure: Past Smokeless Tobacco: Never Alcohol Use Standard Drinks/Week Comments Not Currently 0 (1 standard drink = 0.6 oz pur e alcohol) PHQ-2 Answer Date Recorded Total Score - Questions 1-9 6 01/26 Education Answer Date Recorded What is the highest level of school you have completed or the highest degree you have received? Master's degree (e.g., MA, MS, Nathalia, MEd, DAIRY TECHNOLOGIST, VANESSA) 02/10/2023 Sexually Active Control Partners Comments Not Currently Comments No Sex and Gender Information Value Date Recorded Sex Assigned at Not on file Legal Sex Female 10:44 PM CDT Gender Identity Not on file Sexual Orientation Not on file COVID-19 Exposure Response Date Recorded In the last 10 days, have yo u been in contact with someone who was confirmed or suspected to have Coronavirus/COVID-19? No / Unsure 02/10/2023 7:55 AM CDT documented as of this encounter Functional Status * Question Answer Date of Assessment Author Little interest or pleasure in doing things Not at all 02/10/2023 8:00 AM CDT Francisca Terrazas CMA Feeling down, depressed, or hopeless Not at all 02/10/2023 8:00 AM CDT Francisca Terrazas CMA * Over the past 2 weeks, how often have you been bothered by any of the following problems? Question Answer Date of Assessment Author Patient Health Questionnaire -2 Score 0 02/10/2023 8:00 AM CDT Francisca Terrazas CMA documented as of this encounter Plan of Treatment Upcoming Encounters Date Type Department Care Team (Late st Contact Info) Description 11/19/2024 8:00 AM ENVIRONMENTAL TECH Office Visit [facility] - Internal Medicine [place] [address] [place] [address] Torito Gonzalez MD [address] [place] [address] documented as of this encounter Visit Diagnoses Not on filedocumented in this encounter Additional Health Concerns Assessment Noted Time PHQ-9 Depression Total Score: 6 02/11/20 8:00 AM CDT documented as of this encounter Care Teams Bookbinder Chief Relationship Specialty Start Date End Date Torito Gonzalez MD [address] [place] [address] PCP - General Internal Medicine 02/01/20 Guille Collier MD [address] [place] [address] Consulting Physician Pulmonary Disease 12/06/22 documented as of this encounter
--- OUTSIDE RECORDS SUMMARY | 2024-11-18 11:33 | XMS_ITS | Encounter Summary ---
Author Organization [facility] Address [address] [place] [address] Phone Care Team Providers Care Pourer Off Name Role Phone Torito Gonzalez MD Primary Care Provider [phone] Guille Collier MD Unavailable Reason for Visit * Reason Onset Date Comments Results 01/14/2023 Encounter Details Date Type Department Care Team ([facility] Contact Info) Description 01/14/2023 Telephone [facility] - [facility] - [place] [address] [place] [address] Torito Gonzalez MD [address] [facility] [place] [address] Results Social History Tobacco Use Types Packs/Day Years Used Date Smoking Tobacco: Former Cigarettes Q uit: 12/07/2009 Smokeless Tobacco: Never Alcohol Use Standard Drinks/Week Comments Not Currently 0 (1 standard drink = 0.6 oz pur e alcohol) PHQ-2 Answer Date Recorded Total Score - Questions 1-9 0 06/28 Sexually Active Control Partners Comments Not Currently [...] suspected to have Coronavirus/COVID-19? No / Unsure 01/13/2023 7:58 AM CONVEYOR WEIGHER OPERATOR documented as of this encounter Miscellaneous Notes * Telephone Encounter - Pattie Kidd RN - 01/14/2023 11:05 AM CST Aware and verbalizes understanding EYOR WEIGHER OPERATOR * Telephone Encounter - Pattie Kidd RN - 01/14/2023 11:05 AM CST ----- Message from Torito Gonzalez MD sent at 01/13/2023 4:17 PM CONVEYOR WEIGHER OPERATOR ----- Thyroid function- NL. Cont. Meds as prescribed EYOR WEIGHER OPERATOR documented in this encounter Plan of Treatment Upcoming Encounters Date Type Department Care Team (Late st Contact Info) Description 11/19/2024 8:00 AM CONVEYOR WEIGHER OPERATOR Office Visit [facility] - Internal Medicine [facility] [address] [place] [address] Torito Gonzalez MD [address] [place] [address] documented as of this encounter Visit Diagnoses Not on filedocumented in this encounter Additional Health Concerns Assessment Noted Time PHQ-9 Depression Total Score: 0 07/14/20 21 8:00 AM CDT documented as of this encounter Care Teams Pourer Off Relationship Specialty Start Date End Date Torito Gonzalez MD [address] [place] [address] PCP - General Internal Medicine 02/01/20 Guille Collier MD [address] [place] [address] Consulting Physician Pulmonary Disease 12/06/22 documented as of this encounter
--- OUTSIDE RECORDS SUMMARY | 2024-11-18 11:33 | XMS_ITS | Encounter Summary ---
Author Organization [employer] Care Team Providers Care Press Operator Meat Name Role Phone Torito Gonzalez MD Primary Care Provider [phone] Guille Collier MD Unavailable Encounter Details Date Type Department Care Team (Latest Contact Info) Description 10/18/2023 Travel Social History Tobacco Use Types Packs/Day [...] Master's degree (e.g., MA, MS, Nathalia, MEd, ROLLER GOLD LEAF, VANESSA) 02/10/2023 Sexually Active Control Partners Comments Not Currently Comments No Sex and Gender Information Value Date Recorded Sex Assigned at Not on file Legal Sex Female 10:44 PM CDT Gender Identity Not on file Sexual Orientation Not on file documented as of this encounter Plan of Treatment Upcoming Encounters Date Type Department Care Team (Late st Contact Info) Description 11/19/2024 8:00 AM GUEST RELATIONS ASSOCIATE Office Visit [facility] - Internal Medicine - [place] [address] [place] [address] Torito Gonzalez MD [address] [place] [address] documented as of this encounter Visit Diagnoses Not on filedocumented in this encounter Additional Health Concerns Assessment Noted Time PHQ-9 Depression Total Score: 6 02/11/20 23 8:00 AM CDT documented as of this encounter Care Teams Press Operator Meat Relationship Specialty Start Date End Date Torito Gonzalez MD [address] [place] [address] PCP - General Internal Medicine 02/01/20 Guille Collier MD [address] [place] [address] Consulting Physician Pulmonary Disease 12/06/22 documented as of this encounter
--- OUTSIDE RECORDS SUMMARY | 2024-11-18 11:33 | XMS_ITS | Encounter Summary ---
Author Organization [facility] Address [address] [place] [address] Phone Care Team Providers Care Salesperson Terrazzo Tiles Name Role Phone Torito Gonzalez MD Primary Care Provider [phone] Guille Collier MD Unavailable Reason for Visit * Reason Comments Patient Outreach High risk identifica tion Encounter Details Date Type Department Care Team (Late st Contact Info) Description 05/23/2023 Care Management [facility] Museum Technician Management [address] [place], [place] [id number] Mirna Lucero Patient Outreach (High risk identification) Social History Tobacco Use Types Packs/Day Years [...] Master's degree (e.g., MA, MS, Nathalia, MEd, GOLD BURNISHER, VANESSA) 02/10/2023 Sexually Active Control Partners Comments [...] suspected to have Coronavirus/COVID-19? No / Unsure 05/17/2023 7:58 AM CDT documented as of this encounter Progress Notes * Mirna Lucero - 05/23/2023 11:34 AM CDT Gabbie Chris was identified as high risk MSSP on 05/23/23 . CM outreach placed to patient today to offer RN (Felisa) Care Management assistance. ACP: No Discussion record completed: No Diagnoses: HTN, hyperlipidemia, [place]OT[place], RLS (PRD) answered. States she is currently out of town. Wrote down my name and # and will haveher call me back. * Mirna Lucero - 05/23/2023 11:34 AM CDT Patient called back - declined CM. States she has ACP completed. Advised patient to bring in a copyat next OV to be scanned into chart. She v/u. documented in this encounter Plan of Treatment Upcoming Encounters Date Type Department Care Team (Late st Contact Info) Description 11/19/2024 8:00 AM CROSS CUT SAW OPERATOR Office Visit [facility] - Internal Medicine [facility] [address] [place] [address] Torito Gonzalez MD [address] [place] [address] documented as of this encounter Visit Diagnoses Not on filedocumented in this encounter Additional Health Concerns Assessment Noted Time PHQ-9 Depression Total Score: 6 02/11/20 23 8:00 AM CDT documented as of this encounter Care Teams Salesperson Terrazzo Tiles Relationship Specialty Start Date End Date Torito Gonzalez MD [address] [place] [address] PCP - General Internal Medicine 02/01/20 Guille Collier MD [address] [place] [address] Consulting Physician Pulmonary Disease 12/06/22 documented as of this encounter
--- OUTSIDE RECORDS SUMMARY | 2024-11-18 11:33 | XMS_ITS | Encounter Summary ---
Author Organization [facility] Care Team Providers Care Operations Representative Name Role Phone Torito Gonzalez MD Primary Care Provider [phone] Guille Collier MD Unavailable Encounter Details Date Type Department Care Team (Latest Contact Info) Description 05/17/2023 Travel Social History Tobacco Use Types Packs/Day [...] Master's degree (e.g., MA, MS, Nathalia, MEd, CONSTRUCTION WORKER, VANESSA) 02/10/2023 Sexually Active Control Partners Comments [...] AM CDT documented as of this encounter Plan of Treatment Upcoming Encounters Date Type Department Care Team ( st Contact Info) Description 11/19/2024 8:00 AM ARMORED MACHINE OPERATOR Office Visit [facility] - Internal Medicine - [place] [address] [place] [address] Torito Gonzalez MD [address] [place] [address] documented as of this encounter Visit Diagnoses Not on filedocumented in this encounter Additional Health Concerns Assessment Noted Time PHQ-9 Depression Total Score: 6 02/11/20 23 8:00 AM CDT documented as of this encounter Care Teams Operations Representative Relationship Specialty Start Date End Date Torito Gonzalez MD [address] [place] [address] PCP - General Internal Medicine 02/01/20 Guille Collier MD [address] [place] [address] Consulting Physician Pulmonary Disease 12/06/22 documented as of this encounter
--- OUTSIDE RECORDS SUMMARY | 2024-11-18 11:33 | XMS_ITS | Encounter Summary ---
Author Organization [facility] Address [address] [place] [address] Phone Care Team Providers Care Moto Mix Operator Name Role Phone Torito Gonzalez MD Primary Care Provider [phone]- [phone] Guille Collier MD Unavailable Reason for Visit * Reason Comments Hypertension 3 mo f/u Encounter Details Date Type Department Care Team (Late st Contact Info) Description 08/17/2023 8:45 AM CDT Office Visit [facility] - Internal [facility] [address] [place] [address] Torito Gonzalez MD [address] [place] [address] Essential (primary) hypertension (Primary Dx); Encounter for immunization; Centrilobular emphysema (HCC) Discharge Disposition: Discharged to home or Selfcare Social History Tobacco Use Types Packs/Day Years Used Date Smoking Tobacco: Former Cigarettes Q uit: 12/07/2009 Passive Smoke Exposure: Past Smokeless Tobacco: Never Tobacco Cessation:Counseling Given: No Alcohol Use Standard Drinks/Week Comments Not Currently 0 (1 standard drink = 0.6 oz pur e alcohol) PHQ-2 Answer Date Recorded Total Score - Questions 1-9 6 01/26 Education Answer Date Recorded What is the highest level of school you have completed or the highest degree you have received? Master's degree (e.g., MA, MS, Nathalia, MEd, STAFF AIR DEFENSE OFFICER, VANESSA) 02/10/2023 Sexually Active Control Partners Comments [...] suspected to have Coronavirus/COVID-19? No / Unsure 08/17/2023 8:25 AM CDT documented as of this encounter Last Filed Vital Signs Vital Sign Reading Time Taken Comments Blood Pressure 118/72 08/17/2023 8:30 AM CDT Pulse 75 08/17/2023 8:30 AM CDT Temperature 36.8 ??C (98.2 ??F) 08/17/2023 8:30 AM CD T Respiratory Rate - - Oxygen Saturation 97% 08/17/2023 8:30 AM CDT Inhaled Oxygen Concentration - - Weight 60.8 kg (134 lb) 08/17/2023 8:30 AM CDT Height 165.1 cm (5' 5 ) 08/17/2023 8:30 AM CDT Body Mass Index 22.3 08/17/2023 8:30 AM CDT documented in this encounter Progress Notes * Francisca Terrazas, TRAFFIC OPERATIONS MANAGER - 08/17/2023 8:45 AM CDT Gabbie Aly Chris, 68 y.o., female is here for Hypertension (3 mo f/u) Medication Refills: Patient reports/denies need for medication [...] tablet every day by oral route. Yes Provider, MD Christie Calcium Carbonate (CALCIUM 500 PO) Take by mouth. Yes Provider, MD Christie Denosumab (PROLIA) 60 MG/ML Solution Prefilled Syringe [...] J44.9 COPD 06/30/23 Yes Torito Gonzalez MD [facility]. Devices [facility] Nebulizer machine with accessories - 1 DX- COPD J44.9 Use as directed to inhale Duoneb q6hrs 06/21/22 Yes Torito Gonzalez MD mupirocin (BACTROBAN) 2 % Ointment Apply. 01/25/23 Yes Christie Lancaster MD Perforomist 20 MCG/2ML Nebulizer Soln USE 1 VIAL IN NEBULIZER ONCE DAILY 05/16/23 Yes Christie Lancaster MD Medications Discontinued During This Encounter Medication Reason ??? aspirin 81 MG Chewable Tablet Duplicate Order ??? fluticasone (FLONASE) 50 MCG/ACT Suspension Med List Clean Up I have reviewed the home medication list with the patient and have reconciled discrepancies. The list is accurate to the best of my knowledge. Smoking Status: Social History Tobacco Use ??? Smoking status: Former Types: Cigarettes Quit date: 12/07/2009 Years since quittin.7 Passive exposure: Past ??? Smokeless tobacco: Never Vaping Use ??? Vaping Use: Never used Substance Use Topics ??? Alcohol use: Not Currently ??? Drug use: Never Smoking Cessation Counseling Given: no Health Care Maintenance: Health Maintenance Due Topic Date Due ??? DEXA Bone Density Never done ??? Hepatitis C Virus (HCV) Screening Never done ??? DTaP/Tdap/Td Immunization (1 - Tdap) Never done ??? Zoster Immunization (1 of 2) Never done ??? SARS-COV-2 Immunization (5 - Pfizer series) 06/24/2023 ??? Influenza Immunization (1) 07/29/2023 ??? Mammogram 10/26/2023 Orders Pended: yes The following BPA's have been addressed with the patient today: BMI, Flu and Smoking * Francisca Terrazas CMA - 08/17/2023 8:45 AM CDT Gabbie presents today for immunization/injection of Influenza, ordered by Dr. Torito Gonzalez on 08/17/2023 was administered without incident. Patient tolerated it well. See immunizations/injections activity. * Torito Gonzalez MD - 08/17/2023 8:45 AM CDT PROGRESS NOTE [facility] - [facility] MEDICINE [address] [place] [address] PHONE: [phone] FAX: [phone] 08/17/2023 NAME: Gabbie Chris, : 1955, Assessment ASSESSMENT & PLAN: Return in about 3 months (around 11/16/2023) for htn. Diagnoses and all orders for this visit: Essential (primary) hypertension Comments: Controlled. Continue current medication Encounter for immunization - INFLUENZA QUADRIVALENT ADJUVANTED VACCINE IM - INFLUENZA IMMUNIZATION QUESTIONS Centrilobular emphysema (HCC) Comments: Stable. Continue current medication Other orders - Discontinue: aspirin 81 MG Chewable Tablet; Baby Aspirin 81 mg chewable tablet Chew 1 tablet every day by oral route. - Perforomist 20 MCG/2ML Nebulizer Soln; USE 1 VIAL IN NEBULIZER ONCE DAILY Will do CMP, lipid profile next office visit Follow-up in 3 months, sooner if needed Chief Complaint Patient presents with ??? Hypertension 3 mo f/u HPI Patient is here for follow-up for hypertension and other medical problems. Feeling well. Chronic sinus infection is better. Tolerating medications well. ROS Review of systems was negative, except as documented in HPI PHYSICAL EXAM VITALS: Wt Readings from Last 3 Encounters: 08/17/23 134 lb (60.8 kg) 05/17/23 130 lb (59 kg) 02/10/23 130 lb (59 kg) Temp Readings from Last 3 Encounters: 08/17/23 98.2 ??F (36.8 ??C) (Temporal) 05/17/23 97.9 ??F (36.6 ??C) (Temporal) 02/10/23 97.9 ??F (36.6 ??C) (Temporal) BP Readings from Last 3 Encounters: 08/17/23 118/72 05/17/23 112/78 02/10/23 110/66 Pulse Readings from Last 3 Encounters: 08/17/23 75 05/17/23 73 02/10/23 62 Physical Exam Vitals and nursing note reviewed. [...] air entry both lungs. No wheezing or rales Musculoskeletal: General: Normal range of motion. Cervical [...] been reviewed and updated. Allergies Allergen Reactions ??? Amoxicillin Nausea ??? Doxycycline Other (see Comments) Severe Back Pain ??? Levaquin [Levofloxacin] Palpitations Current Outpatient Medications: ??? albuterol 108 (90 Base) MCG/ACT Aerosol Solution ??? amLODIPine (NORVASC) 5 MG Tablet ??? aspirin 81 MG Chewable Tablet ??? Calcium Carbonate (CALCIUM 500 PO) ??? Denosumab (PROLIA) 60 MG/ML Solution Prefilled Syringe ??? Dupilumab (Dupixent) 200 MG/1.14ML Solution Pen-injector ??? famotidine (PEPCID) 20 MG Tablet ??? ipratropium-albuterol (DUO-NEB) 0.5-2.5 (3) MG/3ML Solution ??? Misc. Devices Misc ??? mupirocin (BACTROBAN) 2 % Ointment ??? Perforomist 20 MCG/2ML Nebulizer Soln I educated Gabbie regarding diagnoses and plan of care. She verbalizes understanding and will call the office if situation changes. Voice recognition software was utilized in this dictation. Despite proof reading, typographical errors and/or content errors may have occurred. By: Torito Gonzalez MD 08/17/2023 8:54 AM CDT documented in this encounter Plan of Treatment Upcoming Encounters Date Type Department Care Team (Late st Contact Info) Description 11/19/2024 8:00 AM BRAKE ADJUSTER Office Visit [facility] - Internal [facility] [address] [place] [address] Torito Gonzalez MD [address] [place] [address] documented as of this encounter Visit Diagnoses Diagnosis Essential (primary) hypertension- Primary Unspecified essential hypertension Encounter for immunization Need for other specified prophylactic vaccination against single bacterial disease Centrilobular emphysema (HCC) Other emphysema documented in this encounter Additional Health Concerns Assessment Noted Time PHQ-9 Depression Total Score: 6 02/11/20 8:00 AM CDT documented as of this encounter Care Teams Moto Mix Operator Relationship Specialty Start Date End Date Torito Gonzalez MD [address] [place] [address] PCP - General Internal Medicine 02/01/20 Guille Collier MD [address] [place] [address] Consulting Physician Pulmonary Disease 12/06/22 documented as of this encounter
--- OUTSIDE RECORDS SUMMARY | 2024-11-18 11:33 | XMS_ITS | Encounter Summary ---
Author Organization [facility] Address [address] [place] [address] Phone Care Team Providers Care Commercial Administrator Name Role Phone Torito Gonzalez MD Primary Care Provider [phone]- [phone] Guille Collier MD Unavailable Reason for Visit * Reason Onset Date Comments Medication Refill 06/30/2023 Encounter Details Date Type Department Care Team (Late st Contact Info) Description 06/30/2023 Refill [facility] - Internal Medicine - [place] [address] [place] [phone] Torito Gonzalez MD [address] [place] [address] Medication Refill Social History Tobacco Use Types Packs/Day Years [...] Master's degree (e.g., MA, MS, Nathalia, MEd, MIDDLE SCHOOL PE TEACHER, VANESSA) 02/10/2023 Sexually Active Control Partners Comments Not Currently Comments No Sex and Gender Information Value Date Recorded Sex Assigned at Not on file Legal Sex Female 10:44 PM CDT Gender Identity Not on file Sexual Orientation Not on file documented as of this encounter Miscellaneous Notes * Telephone Encounter - Pattie Kidd RN - 06/30/2023 8:25 AM CDT Medication(s) refilled and signed per [facility] Chronic Medication Refill Standing Order for Pediatricand Adult Patients. Requested Prescriptions Pending Prescriptions Disp Refills ??? ipratropium-albuterol (DUO-NEB) 0.5-2.5 (3) MG/3ML Solution 360 mL 5 Si mL by Nebulization route 4 times daily. DX J44.9 COPD Inhaled Combinations Protocol Passed - 06/30/2023 7:36 AM Passed - Visit with relevant provider in past 12 months or upcoming 90 days Recent Visits Date Type Provider Dept 05/17/23 Office Visit Torito Gonzalez MD [facility] [place] 02/10/23 Office Visit Torito Gonzalez MD [facility] [place] 01/13/23 Office Visit Torito Gonzalez MD [facility] [place] 11/04/22 Office Visit Aneta Riley PAC [facility] [place] 10/07/22 Office Visit Torito Gonzalez MD [facility] [place] 09/14/22 Office Visit Torito Gonzalez MD [facility] [place] 07/05/22 Office Visit Torito Gonzalez MD [facility] [place] Showing recent visits within past 365 days and meeting all other requirements Future Appointments Date Type Provider Dept 08/17/23 Appointment Torito Gonzalez MD [facility] [place] Showing future appointments within next 90 days and meeting all other requirements Passed - Active short-acting beta agonist prescription documented in this encounter Plan of Treatment Upcoming Encounters Date Type Department Care Team (Late st Contact Info) Description 11/19/2024 8:00 AM LOGGING SUPERVISOR Office Visit [facility] - Internal Medicine - [place] [address] [place] [id number] Torito Gonzalez MD [address] [place] [address] documented as of this encounter Visit Diagnoses Not on filedocumented in this encounter Additional Health Concerns Assessment Noted Time PHQ-9 Depression Total Score: 6 02/11/20 23 8:00 AM CDT documented as of this encounter Care Teams Commercial Administrator Relationship Specialty Start Date End Date Torito Gonzalez MD [address] [place] [address] PCP - General Internal Medicine 02/01/20 Guille Collier MD [address] [place] [address] Consulting Physician Pulmonary Disease 12/06/22 documented as of this encounter
--- OUTSIDE RECORDS SUMMARY | 2024-11-18 11:33 | XMS_ITS | Encounter Summary ---
Author Organization [facility] Address [address] [place] [address] Phone Care Team Providers Care Fighting Vehicle Infantryman Name Role Phone Torito Gonzalez MD Primary Care Provider [phone]- [phone] Guille Collier MD Unavailable Reason for Visit * Reason Comments Patient Outreach Encounter Details Date Type Department Care Team (Late st Contact Info) Description 10/24/2023 Care Management [facility] Resident Medical Officer Management [address] [place] [address] Felisa Jacob, RN [place] Patient [...] Master's degree (e.g., MA, MS, Nathalia, MEd, ROOM SERVICE RUNNER, VANESSA) 02/10/2023 Sexually Active Control Partners Comments Not Currently Comments No Sex and Gender Information Value Date Recorded Sex Assigned at Not on file Legal Sex Female 10:44 PM CDT Gender Identity Not on file Sexual Orientation Not on file documented as of this encounter Progress Notes * Felisa Jacob RN - 10/24/2023 3:49 PM CST Gabbie Chris was identified as high risk MSSP on 10/24/23 . CM outreach placed to offer RN Care Management assistance. Per provider patient has no care management needs at this time. Engagement status updated: No-per provider ATOLOGY SPECIALIST documented in this encounter Plan of Treatment Upcoming Encounters Date Type Department Care Team (Late st Contact Info) Description 11/19/2024 8:00 AM DERMATOLOGY SPECIALIST [facility] [place] [address] [place] [address] Torito Gonzalez MD [address] [place] [address] documented as of this encounter Visit Diagnoses Not on filedocumented in this encounter Additional Health Concerns Assessment Noted Time PHQ-9 Depression Total Score: 6 02/11/20 23 8:00 AM CDT documented as of this encounter Care Teams Fighting Vehicle Infantryman Relationship Specialty Start Date End Date Torito Gonzalez MD [address] [place] [address] PCP - General Internal Medicine 02/01/20 Guille Collier MD [address] [place] [address] Consulting Physician Pulmonary Disease 12/06/22 documented as of this encounter
--- OUTSIDE RECORDS SUMMARY | 2024-11-18 11:33 | XMS_ITS | Encounter Summary ---
Author Organization [facility] Address [address] [place] [address] Phone Care Team Providers Care Cancer Registry Manager Name Role Phone Torito Gonzalez MD Primary Care Provider [phone]- [phone] Guille Collier MD Unavailable Reason for Visit * Reason Comments Weight Loss 1 mo f/u Medication Refill Encounter Details Date Type Department Care Team (Late st Contact Info) Description 02/10/2023 8:15 AM CDT Office Visit [facility] - Internal Medicine - [place] [address] [place] [address] Torito Gonzalez MD [address] [place] [address] Weight loss, abnormal (Primary Dx); Centrilobular emphysema (HCC); Essential (primary) hypertension Discharge Disposition: Discharged to home or Selfcare [...] Master's degree (e.g., MA, MS, Nathalia, MEd, MOBILE HEALTH VEHICLE OPERATOR, VANESSA) 02/10/2023 Sexually Active Control Partners Comments [...] Sign Reading Time Taken Comments Blood Pressure 110/66 02/10/2023 8:06 AM CDT Pulse 62 02/10/2023 8:06 AM CDT Temperature 36.6 ??C (97.9 ??F) 02/10/2023 8:06 AM CD T Respiratory Rate - - Oxygen Saturation 95% 02/10/2023 8:06 AM CDT Inhaled Oxygen Concentration - - Weight 59 kg (130 lb) 02/10/2023 8:06 AM CDT Height 165.1 cm (5' 5 ) 02/10/2023 8:06 AM CDT Body Mass Index 21.63 02/10/2023 8:06 AM CDT documented in this encounter Functional [...] Terrazas CMA documented as of this encounter Progress Notes * Francisca Terrazas CMA - 02/10/2023 8:15 AM CDT Gabbie screened for Social Determinants of Health and no needs identified. * Francisca Terrazas CMA - 02/10/2023 8:15 AM CDT Gabbie Chris, 67 y.o., female is here for Weight Loss (1 mo f/u) and Medication Refill Medication Refills: Patient reports/denies need for medication [...] Lancaster MD budesonide (PULMICORT) 0.5 MG/2ML Suspension 0.5 mg by Nebulization route 2 times daily. Yes Christie Lancaster MD Calcium Carbonate (CALCIUM 500 PO) Take by mouth. Yes Christie Lancaster MD Cholecalciferol (VITAMIN D-3 PO) Take by mouth. Yes Christie Lancaster MD Denosumab (PROLIA) 60 MG/ML Solution Prefilled Syringe 60 mg by Subcutaneous route. 12/21/22 Yes Christie Lancaster MD famotidine (PEPCID) 20 MG Tablet Take 1 Tablet by mouth 2 times daily. 09/14/22 Yes Torito Gonzalez MD fluticasone (FLONASE) 50 MCG/ACT Suspension 1 Industry by Nasal route 2 times daily. Use in each nostril as directed. 12/16/21 Yes Torito Gonzalez MD Fluticasone Furoate-Vilanterol (BREO ELLIPTA) 200-25 MCG/ACT AEROSOL POWDER, BREATH ACTIVATED take 1 Puff by inhalation. 01/18/23 02/17/23 Yes Christie Lancaster MD fluticasone-salmeterol (ADVAIR) 250-50 MCG/ACT AEROSOL POWDER, BREATH ACTIVATED Advair Diskus 250 mcg-50 mcg/dose powder for inhalation INHALE 1 DOSE BY MOUTH EVERY 12 HOURS Patient not taking: Reported on 02/10/2023 Christie Lancaster MD HYDROcodone-acetaminophen (NORCO) 7.5-325 MG Tablet 01/04/23 Christie Lancaster MD ipratropium-albuterol (DUO-NEB) 0.5-2.5 (3) MG/3ML Solution 3 mL by Nebulization route 4 times daily. DX J44.9 COPD 01/13/23 Yes Torito Gonzalez MD metoprolol Succinate (TOPROL-XL) 25 MG TABLET SR 24 HR metoprolol succinate ER 25 mg tablet,extended release 24 hr TAKE 1 TABLET BY MOUTH ONCE DAILY 01/19/23 Yes Christie Lancaster MD mirtazapine (REMERON) 15 MG Tablet 1/2 tab po at bedtime for 2 weeks then 1 at bedtime Patient not taking: Reported on 02/10/2023 01/13/23 Torito Gonzalez [place] [facility] [facility] Neb[place]izer machine with accessories - 1 DX- COPD J44.9 Use as directed to inhale Duoneb q6hrs 06/21/22 Yes Torito Gonzalez MD mupirocin (BACTROBAN) 2 % Ointment Apply. 01/25/23 Yes ProviderChristie MD rOPINIRole (REQUIP) 0.25 MG Tablet Take 4 Tablets by mouth nightly. Patient not taking: Reported on 02/10/2023 12/06/22 Guille Collier MD There are no discontinued medications. I have reviewed the home medication list with the patient and have reconciled discrepancies. The list is accurate to the best of my knowledge. Smoking Status: Social History Tobacco Use ??? Smoking status: Former Types: Cigarettes Quit date: 12/07/2009 Years since quittin.1 Passive exposure: Past ??? Smokeless tobacco: Never Vaping Use ??? Vaping Use: Never used Substance Use Topics ??? Alcohol use: Not Currently ??? Drug use: Never Smoking Cessation Counseling Given: no Health Care Maintenance: Health Maintenance Due Topic Date Due ??? DEXA Bone Density Never done ??? DTaP/Tdap/Td Immunization (1 - Tdap) Never done ??? Zoster Immunization (1 of 2) Never done ??? SARS-COV-2 Immunization (4 - Booster for Pfizer series) 01/06/2022 Orders Pended: no The following BPA's have been addressed with the patient today: Smoking and Depression * Torito Gonzalez MD - 02/10/2023 8:15 AM CDT PROGRESS NOTE [facility] [address] [place] [address] PHONE: [phone] FAX: [phone] 02/10/2023 NAME: Gabbie Chris, : 1955, Assessment ASSESSMENT & PLAN: Return in about 3 months (around 05/13/2023) for copd. Diagnoses and all orders for this visit: Weight loss, abnormal Comments: Improved. Continue nutritional supplement. Continue to monitor weight Centrilobular emphysema (HCC) Comments: Will add budesonide via nebulizer since patient is still has coughing spell. May increase benzonatate to 200 mg every 8 hours as needed Essential (primary) hypertension Comments: Controlled. Continue current medication Other orders - Fluticasone Furoate-Vilanterol (BREO ELLIPTA) 200-25 MCG/ACT AEROSOL POWDER, BREATH ACTIVATED; take 1 Puff by inhalation. - metoprolol Succinate (TOPROL-XL) 25 MG TABLET SR 24 HR; metoprolol succinate ER 25 mg tablet,extended release 24 hr TAKE 1 TABLET BY MOUTH ONCE DAILY - mupirocin (BACTROBAN) 2 % Ointment; Apply. - ipratropium-albuterol (DUO-NEB) 0.5-2.5 (3) MG/3ML Solution; 3 mL by Nebulization route 4 times daily. DX J44.9 COPD - budesonide (PULMICORT) 0.5 MG/2ML Suspension; 2 mL by Nebulization route 2 times daily. DX COPD J44.9 Follow-up in 3 months, sooner if needed Chief Complaint Patient presents with ??? Weight Loss 1 mo f/u ??? Medication Refill HPI Patient is here for follow-up for weight loss. Feeling better. Appetite is better. Has gain weight since last office visit. Continue have coughing spell especially at nighttime. Continue have postnasal drainage. Being followed by ENT specialist for chronic sinusitis. Recently patient was hospitalized after she had hypoxic episode. At local hospital cardiac enzymes were elevated so she was transferred to [facility]. Cardiac catheterization was done which revealed no evidence of any significant CAD. ROS Review of systems was negative, except as documented in HPI PHYSICAL EXAM VITALS: Wt Readings from Last 3 Encounters: 02/10/23 130 lb (59 kg) 01/13/23 125 lb (56.7 kg) 12/06/22 132 lb 3.2 oz (60 kg) Temp Readings from Last 3 Encounters: 02/10/23 97.9 ??F (36.6 ??C) (Temporal) 01/13/23 98 ??F (36.7 ??C) (Temporal) 12/06/22 97.8 ??F (36.6 ??C) BP Readings from Last 3 Encounters: 02/10/23 110/66 01/13/23 110/68 12/06/22 128/70 Pulse Readings from Last 3 Encounters: 02/10/23 62 01/13/23 92 12/06/22 73 Physical Exam Vitals and nursing note reviewed. [...] entry both lungs. No wheezing or rales. Musculoskeletal: General: Normal range of motion. Cervical back: Normal range of motion and neck supple. Skin: General: Skin is warm and dry. Neurological: General: No focal deficit present. Mental Status: She is alert and oriented to person, place, and time. Psychiatric: Mood and Affect: Mood normal. Behavior: Behavior normal. Catheter site in the right groin looks good. No evidence of any infection. No ecchymosis. Past medical, surgical, social and family history has been reviewed and updated as necessary. Medications and allergies has been reviewed and updated. Allergies Allergen Reactions ??? Amoxicillin Nausea ??? Levaquin [Levofloxacin] Palpitations Current Outpatient Medications: ??? albuterol 108 (90 Base) MCG/ACT Aerosol Solution ??? amLODIPine (NORVASC) 5 MG Tablet ??? aspirin 81 MG Chewable Tablet ??? budesonide (PULMICORT) 0.5 MG/2ML Suspension ??? Calcium Carbonate (CALCIUM 500 PO) ??? Cholecalciferol (VITAMIN D-3 PO) ??? Denosumab (PROLIA) 60 MG/ML Solution Prefilled Syringe ??? famotidine (PEPCID) 20 MG Tablet ??? fluticasone (FLONASE) 50 MCG/ACT Suspension ??? Fluticasone Furoate-Vilanterol (BREO ELLIPTA) 200-25 MCG/ACT AEROSOL POWDER, BREATH ACTIVATED ??? ipratropium-albuterol (DUO-NEB) 0.5-2.5 (3) MG/3ML Solution ??? metoprolol Succinate (TOPROL-XL) 25 MG TABLET SR 24 HR ??? Misc. Devices Misc ??? mupirocin (BACTROBAN) 2 % Ointment I educated Gabbie regarding diagnoses and plan of care. She verbalizes understanding and will call the office if situation changes. Voice recognition software was utilized in this dictation. Despite proof reading, typographical errors and/or content errors may have occurred. By: Torito Gonzalez MD 02/10/2023 8:36 AM CDT documented in this encounter Plan of Treatment Upcoming Encounters Date Type Department Care Team (Late st Contact Info) Description 11/19/2024 8:00 AM REGIONAL TRANSFER LIAISON Office Visit [facility] - Internal Medicine - [place] [address] [place] [phone] Torito Gonzalez MD [address] [place] [address] documented as of this encounter Visit Diagnoses Diagnosis Weight loss, abnormal- Primary Loss of weight Centrilobular emphysema (HCC) Other emphysema Essential (primary) hypertension Unspecified essential hypertension documented in this encounter Additional Health Concerns Assessment Noted Time PHQ-9 Depression Total Score: 6 02/11/20 8:00 AM CDT documented as of this encounter Care Teams Cancer Registry Manager Relationship Specialty Start Date End Date Torito Gonzalez MD [address] [place] [address] PCP - General Internal Medicine 02/01/20 Guille Collier MD [address] [place] [address] Consulting Physician Pulmonary Disease 12/06/22 documented as of this encounter
--- OUTSIDE RECORDS SUMMARY | 2024-11-18 11:33 | XMS_ITS | Encounter Summary ---
Author Organization [facility] Care Team Providers Care Room Attendants Name Role Phone Torito Gonzalez MD Primary Care Provider [phone] Guille Collier MD Unavailable Encounter Details Date Type Department Care Team (Latest Contact Info) Description 08/17/2023 Travel Social History Tobacco Use Types Packs/Day [...] Master's degree (e.g., MA, MS, Nathalia, MEd, COUNTY DEMONSTRATOR, VANESSA) 02/10/2023 Sexually Active Control Partners Comments [...] st Contact Info) Description 11/19/2024 8:00 AM SHAGGER Office Visit [facility] - Internal Medicine - [place] [address] [place] [address] Torito Gonzalez MD [address] [place] [address] documented as of this encounter Visit Diagnoses Not on filedocumented in this encounter Additional Health Concerns Assessment Noted Time PHQ-9 Depression Total Score: 6 02/11/20 23 8:00 AM CDT documented as of this encounter Care Teams Room Attendants Relationship Specialty Start Date End Date Torito Gonzalez MD [address] [place] [address] PCP - General Internal Medicine 02/01/20 Guille Collier MD [address] [place] [address] Consulting Physician Pulmonary Disease 12/06/22 documented as of this encounter
--- OUTSIDE RECORDS SUMMARY | 2024-11-18 11:33 | XMS_ITS | Encounter Summary ---
Author Organization [facility] Address [address] [address] Phone Care Team Providers Care Auditor In Charge Name Role Phone Torito Gonzalez MD Primary Care Provider [phone] Guille Collier MD Unavailable Reason for Visit * Reason Comments Hypertension 3 mo f/u Encounter Details Date Type Department Care Team (Late st Contact Info) Description 11/16/2023 8:30 AM CONSERVATION POLICY ANALYST Office Visit [facility] [address] [place] [id number] Torito Gonzalez MD [address] [place] [address] Essential (primary) hypertension (Primary Dx); Centrilobular emphysema (HCC); Other eczema Discharge Disposition: Discharged to home or Selfcare Social History Tobacco Use Types Packs/Day Years Used Date Smoking Tobacco: Former Cigarettes Q uit: 12/07/2009 Passive Smoke Exposure: Past Smokeless Tobacco: Never Tobacco Cessation:Counseling Given: No Alcohol Use Standard Drinks/Week Comments Not Currently 0 (1 standard drink = 0.6 oz pur e alcohol) [facility] Utilities Answer Date Recorded In the past 12 months has e electric, gas, oil, or water company [...] declined 11/16/2023 How often do you attend catholic or zoroastrian serv ices? Patient declined 11/16/2023 Do you belong to any clubs o r organizations such as catholic groups, unions, fraternal or athletic groups, or [...] Total Score - Questions 1-9 6 01/26 [facility] - Occupational [...] place to sleep or slept in a prison (including now)? Patient declined 11/16/2023 Education Answer Date Recorded What is the highest level of school you have completed or the highest degree you have received? Master's degree (e.g., MA, MS, Nathalia, MEd, METAL CASTER, VANESSA) 02/10/2023 Sexually Active Control Partners Comments Not Currently Comments No Sex and Gender Information Value Date Recorded Sex Assigned at Not on file Legal Sex Female 10:44 PM CDT Gender Identity Not on file Sexual Orientation Not on file documented as of this encounter Last Filed Vital Signs Vital Sign Reading Time Taken Comments Blood Pressure 130/72 11/16/2023 8:18 AM CONSERVATION POLICY ANALYST Pulse 72 11/16/2023 8:18 AM CONSERVATION POLICY ANALYST Temperature 36.4 ??C (97.6 ??F) 11/16/2023 8:18 AM CS T Respiratory Rate - - Oxygen Saturation 97% 11/16/2023 8:18 AM CONSERVATION POLICY ANALYST Inhaled Oxygen Concentration - - Weight 61.2 kg (135 lb) 11/16/2023 8:18 AM CONSERVATION POLICY ANALYST Height 165.1 cm (5' 5 ) 11/16/2023 8:18 AM CONSERVATION POLICY ANALYST Body Mass Index 22.47 11/16/2023 8:18 AM CONSERVATION POLICY ANALYST documented in this encounter Functional Status * Audit-C Score Answer Date of Assessment Author -1 11/16/2023 8:21 AM CONSERVATION POLICY ANALYST Francisca Terrazas, JACOBO * Within the last year, have you [...] occasion? Patient declined 11/16/2023 8:21 AM Francisca Connell CMA documented as of this encounter Patient Instructions * Patient Instructions* Torito Gonzalez MD - 11/16/2023 8:30 AM CONSERVATION POLICY ANALYST RECOMMENDED DURING YOUR VISIT TODAY RSV Vaccine Zoster (Shingles) Vaccine ERVATION POLICY ANALYST documented in this encounter Progress Notes * Francisca Terrazas CMA - 11/16/2023 8:30 AM CST Gabbie screened for Social Determinants of Health and patient declined to answer the questions. ERVATION POLICY ANALYST * Francisca Terrazas CMA - 11/16/2023 8:30 AM CST Gabbie Chris, 68 y.o., female is here [...] 1 VIAL IN NEBULIZER ONCE DAILY 10/17/23 Yes Christie Lancaster MD Calcium Carbonate (CALCIUM 500 PO) Take by mouth. Yes Christie Lancaster MD Denosumab (PROLIA) 60 MG/ML Solution Prefilled Syringe 60 mg by Subcutaneous route. 12/21/22 Yes Christie Lancaster MD Dupilumab (Dupixent) 200 MG/1.14ML Solution Pen-injector by Subcutaneous route. Yes ProviderChristie MD famotidine (PEPCID) 20 MG Tablet Take 1 Tablet by mouth 2 times daily. 09/14/22 Yes Torito Gonzalez MD ipratropium-albuterol (DUO-NEB) 0.5-2.5 (3) MG/3ML Solution 3 mL by Nebulization route 4 times daily. DX J44.9 COPD 06/30/23 Yes Torito Gonzalez MD mupirocin (BACTROBAN) 2 % Ointment Apply. 01/25/23 Yes ProviderChristie MD Perforomist 20 MCG/2ML Nebulizer Soln USE 1 VIAL IN NEBULIZER ONCE DAILY 05/16/23 Yes Christie Lancaster MD triamcinolone (KENALOG) 0.1 % Cream Apply to rash bid for 10 days 10/18/23 Yes Torito Gonzalez MD Medications Discontinued During This Encounter Medication Reason ??? Misc. Devices Misc Med List Clean Up I have reviewed the home medication list with the patient and have reconciled discrepancies. The list is accurate to the best of my knowledge. Smoking Status: Social History Tobacco Use ??? Smoking status: Former Types: Cigarettes Quit date: 12/07/2009 Years since quittin.9 Passive exposure: Past ??? Smokeless tobacco: Never Vaping Use ??? Vaping Use: Never used Substance Use Topics ??? Alcohol use: Not Currently ??? Drug use: Never Smoking Cessation Counseling Given: no Health Care Maintenance: Health Maintenance Due Topic Date Due ??? Hepatitis C Virus (HCV) Screening Never done ??? DTaP/Tdap/Td Immunization (1 - Tdap) Never done ??? Zoster Immunization (1 of 2) Never done ??? Respiratory Syncytial Virus (RSV) Immunization (Adult - or age 60+ years) (1 - 1-dose 60+ series) Never done ??? SARS-COV-2 Immunization (2022- season) 2023 Orders Pended: no The following BPA's have been addressed with the patient today: BMI and Smoking ERVATION POLICY ANALYST * Torito Gonzalez MD - 11/16/2023 8:30 AM CST PROGRESS NOTE [facility] [address] [place] [address] PHONE: [phone] FAX: [phone] 11/16/2023 NAME: Gabbie Chris, : 1955, Assessment ASSESSMENT & PLAN: Return in about 6 months (around 05/17/2024) for htn. Diagnoses and all orders for this visit: Essential (primary) hypertension Comments: Controlled. Continue current medication. Orders: - CMP (COMPREHENSIVE METABOLIC PANEL); Future - LIPID PANEL; Future - CMP (COMPREHENSIVE METABOLIC PANEL) - LIPID PANEL Centrilobular emphysema (HCC) Comments: Stable. Continue current medication. Other eczema Comments: Continue p.r.n. TMC 0.1% cream. Other orders - budesonide (PULMICORT) 0.5 MG/2ML Suspension; USE 1 VIAL IN NEBULIZER ONCE DAILY Check CMP, lipid profile. Zoster and RSV vaccine recommended. Follow-up in 6 months, sooner if needed. Chief Complaint Patient presents with ??? Hypertension 3 mo f/u HPI Patient is here for follow-up for hypertension other medical problems. Feeling well. Tolerating medications well. Breathing stable. Rash on the right ankle better. Using TMC cream as needed. ROS Review of systems was negative, except as documented in HPI PHYSICAL EXAM VITALS: Wt Readings from Last 3 Encounters: 11/16/23 135 lb (61.2 kg) 10/18/23 138 lb (62.6 kg) 08/17/23 134 lb (60.8 kg) Temp Readings from Last 3 Encounters: 11/16/23 97.6 ??F (36.4 ??C) (Temporal) 10/18/23 98.4 ??F (36.9 ??C) (Temporal) 08/17/23 98.2 ??F (36.8 ??C) (Temporal) BP Readings from Last 3 Encounters: 11/16/23 130/72 10/18/23 122/70 08/17/23 118/72 Pulse Readings from Last 3 Encounters: 11/16/23 72 10/18/23 76 08/17/23 75 Physical Exam Vitals and nursing note reviewed. [...] Skin: General: Skin is warm and dry. Comments: Patch of eczematous type rash on the lateral aspect of right ankle. Neurological: General: No focal deficit present. Mental [...] ipratropium-albuterol (DUO-NEB) 0.5-2.5 (3) MG/3ML Solution ??? mupirocin (BACTROBAN) 2 % Ointment ??? Perforomist 20 MCG/2ML Nebulizer Soln ??? triamcinolone (KENALOG) 0.1 % Cream I educated Gabbie regarding diagnoses and plan of care. She verbalizes understanding and will call the office if situation changes. Voice recognition software was utilized in this dictation. Despite proof reading, typographical errors and/or content errors may have occurred. By: Torito Gonzalez MD 11/16/2023 8:38 AM CONSERVATION POLICY ANALYST ERVATION POLICY ANALYST * Francisca Terrazas CMA - 11/16/2023 8:30 AM CST Gabbie presents for lab draw per order of Dr. Torito Gonzalez dated 11/16/2023. Specimen collected from left antecubital without incident. ERVATION POLICY ANALYST documented in this encounter Plan of Treatment Upcoming Encounters Date Type Department Care Team (Late st Contact Info) Description 11/19/2024 8:00 AM CONSERVATION POLICY ANALYST Office Visit [facility] [address] [place] [address] Torito Gonzalez MD [address] [place] [address] documented as of this encounter Procedures Procedure Name Priority Date/Time Associated Diagnosis Comments LIPID PANEL Routine 11/16/2023 8:44 AM CONSERVATION POLICY ANALYST Essential (primary) hypertension CMP (COMPREHENSIVE METABOLIC PANEL) Routine 11/16/2023 8:44 AM CONSERVATION POLICY ANALYST Essential (primary) hypertension documented in this encounter Results * (ABNORMAL) LIPID PANEL (11/16/2023 8:44 AM CONSERVATION POLICY ANALYST) CHOLESTEROL 197 <200 mg/dL 11/16/2023 3:34 PM CONSERVATION POLICY ANALYST [facility] TRIGLYCERIDES 78 <150 mg/dL 11/16/2023 3:34 PM CONSERVATION POLICY ANALYST [facility] HDL CHOLESTEROL 67 >40 mg/dL 3:34 PM CONSERVATION POLICY ANALYST [facility] LDL 114 <130 mg/dL 11/16/2023 3:34 PM CONSERVATION POLICY ANALYST [facility] VLDL 16 10 - 50 mg/dL 11/16/2023 3:34 PM CONSERVATION POLICY ANALYST [facility] CHOL/HDL RATIO 2.9 0.0 - 4.4 11/16/2023 3:34 PM CONSERVATION POLICY ANALYST [facility] NON-HDL CHOLESTEROL 130(H) <130 mg/dL 11/16/2023 3:34 PM CONSERVATION POLICY ANALYST [facility] Blood Venipuncture / Unknown 11/16/2023 8:44 AM CONSERVATION POLICY ANALYST 11/16/2023 8:44 AM CONSERVATION POLICY ANALYST us Torito Gonzalez MD CHEMISTRY ORDERABLES Final Result [facility] [address] [place] [address] * (ABNORMAL) CMP (COMPREHENSIVE METABOLIC PANEL) (11/16/2023 8:44 AM CONSERVATION POLICY ANALYST) SODIUM 143 136 - 145 mmol/L 11/16/2023 3:34 PM CONSERVATION POLICY ANALYST [facility] POTASSIUM 4.2 3.5 - 5.1 mmol/L 11/16/2023 3:34 PM [facility] CHLORIDE 108(H) 98 - 107 mmol/L 11/16/2023 3:34 PM [facility] CO2, VENOUS 26 22 - 30 mmol/L 11/16/2023 3:34 PM [facility] ANION GAP 13.2 <18.0 mmol/L 11/16/2023 3:34 PM [facility] GLUCOSE 70 70 - 99 mg/dL 11/16/2023 3:34 PM [facility] BUN 14 10 - 20 mg/dL 11/16/2023 3:34 PM [facility] CREATININE, BLOOD 0.79 0.60 - 1.00 mg/dL 11/16/2023 3:34 PM [facility] BUN/CREATININE RATIO 18 12 - 20 ratio 11/16/2023 3:34 PM [facility] TOTAL PROTEIN 7.7 6.3 - 8.2 g/dL 11/16/2023 3:34 PM [facility] ALBUMIN 4.1 3.5 - 5.0 g/dL 11/16/2023 3:34 PM [facility] A/G RATIO 1.1 1.0 - 2.2 11/16/2023 3:34 PM [facility] CALCIUM 9.1 8.7 - 10.5 mg/dL 11/16/2023 3:34 PM [facility] T BILI 0.4 0.2 - 1.2 mg/dL 11/16/2023 3:34 PM [facility] SGOT (AST) 22 5 - 34 U/L 11/16/2023 3:34 PM [facility] SGPT (ALT) 15 0 - 55 U/L 11/16/2023 3:34 PM [facility] ALKALINE PHOSPHATASE 50 40 - 150 U/L 11/16/2023 3:34 PM [facility] IS THE PATIENT REQUIRED TO BE FASTING? No 11/16/2023 3:34 PM CONSERVATION POLICY ANALYST [facility] GFR, ESTIMATED >60 >=60 11/16/2023 3:34 PM CONSERVATION POLICY ANALYST [facility] Comment: Creatinine Clearance is the preferred criteria for selecting drug dose adjustments in renally impaired patients. ??The GFR is provided as additional pertinent clinical information. GFR is reported in mL/min/1.73 sq m. Calculation based on the Chronic Kidney Disease Epidemiology Collaboration (CKD- EPI) equation refit without adjustment for race. GFR, EST. >60 >=60 023 3:34 PM CONSERVATION POLICY ANALYST [facility] GFR, EST. NONAFRICAN >60 >=60 11/16/2023 3:34 PM CONSERVATION POLICY ANALYST [facility] Blood Venipuncture / Unknown 11/16/2023 8:44 AM CONSERVATION POLICY ANALYST 11/16/2023 8:44 AM CONSERVATION POLICY ANALYST Torito Gonzalez MD CHEMISTRY ORDERABLES Final Result [facility] [address] [place] [address] documented in this encounter Visit Diagnoses Diagnosis Essential (primary) hypertension- Primary Unspecified essential hypertension Centrilobular emphysema (HCC) Other emphysema Other eczema documented in this encounter Additional Health Concerns Assessment Noted Time PHQ-9 Depression Total Score: 6 02/11/20 23 8:00 AM CDT documented as of this encounter Care Teams Auditor In Charge Relationship Specialty Start Date End Date Torito Gonzalez MD [address] [place] [address] PCP - General Internal Medicine 02/01/20 Guille Collier MD [address] [place] [address] Consulting Physician Pulmonary Disease 12/06/22 documented as of this encounter
--- OUTSIDE RECORDS SUMMARY | 2024-11-18 11:33 | XMS_ITS | Encounter Summary ---
Author Organization [facility] Address [address] [place] [address] Phone Care Team Providers Care Home Fire Alarm Installer Name Role Phone Torito Gonzalez MD Primary Care Provider [phone]- [phone] Guille Collier MD Unavailable Reason for Visit * Reason Comments Blister On right ankle Encounter Details Date Type Department Care Team (Late st Contact Info) Description 10/18/2023 9:45 AM STEAM SETTER Office Visit [facility] - Internal Medicine - [place] [address] [place] [address] Torito Gonzalez MD [address] [place] [address] Cellulitis of foot (Primary Dx) Discharge Disposition: Discharged to home or Selfcare [...] Master's degree (e.g., MA, MS, Nathalia, MEd, WHITE SUGAR BOILER, VANESSA) 02/10/2023 Sexually Active Control Partners Comments Not Currently Comments No Sex and Gender Information Value Date Recorded Sex Assigned at Not on file Legal Sex Female 10:44 PM CDT Gender Identity Not on file Sexual Orientation Not on file documented as of this encounter Last Filed Vital Signs Vital Sign Reading Time Taken Comments Blood Pressure 122/70 10/18/2023 9:38 AM STEAM SETTER Pulse 76 10/18/2023 9:38 AM STEAM SETTER Temperature 36.9 ??C (98.4 ??F) 10/18/2023 9:38 AM CS T Respiratory Rate - - Oxygen Saturation 98% 10/18/2023 9:38 AM STEAM SETTER Inhaled Oxygen Concentration - - Weight 62.6 kg (138 lb) 10/18/2023 9:38 AM STEAM SETTER Height 165.1 cm (5' 5 ) 10/18/2023 9:38 AM STEAM SETTER Body Mass Index 22.96 10/18/2023 9:38 AM STEAM SETTER documented in this encounter Progress Notes * Francisca Terrazas, RESTAURANT OPERATIONS MANAGER - 10/18/2023 9:45 AM CST Gabbie Chris, 68 y.o., female is here for Blister (On right ankle) Medication Refills: Patient reports/denies need for medication [...] tablet every day by oral route. Yes ProviderChristie MD Calcium Carbonate (CALCIUM 500 PO) Take by mouth. Yes ProviderChristie MD Denosumab (PROLIA) 60 MG/ML Solution Prefilled [...] J44.9 COPD 06/30/23 Yes Torito Gonzalez MD [facility]. Devices [facility] Nebulizer machine with accessories - 1 DX- COPD J44.9 Use as directed to inhale Duoneb q6hrs 06/21/22 Yes Torito Gonzalez MD mupirocin (BACTROBAN) 2 % Ointment Apply. 01/25/23 Yes Provider, MD Christie Perforomist 20 MCG/2ML Nebulizer Soln USE 1 VIAL IN NEBULIZER ONCE DAILY 05/16/23 Yes Provider, MD Christie There are no discontinued medications. I have reviewed the home medication list with the patient and have reconciled discrepancies. The list is accurate to the best of my knowledge. Smoking Status: Social History Tobacco Use ??? Smoking status: Former Types: Cigarettes Quit date: 12/07/2009 Years since quittin.8 Passive exposure: Past ??? Smokeless tobacco: Never [...] of 2) Never done ??? SARS-COV-2 Immunization (2022- season) 2023 ??? Mammogram 10/26/2023 Orders Pended: no The following BPA's have been addressed with the patient today: BMI and Smoking M SETTER * Torito Gonzalez MD - 10/18/2023 9:45 AM CST PROGRESS NOTE [facility] [address] [place] [address] PHONE: [phone] FAX: [phone] 10/18/2023 NAME: Gabbie Chris, : 1955, Assessment ASSESSMENT & PLAN: Return for keep 11/16 appt. Diagnoses and all orders for this visit: Cellulitis of foot Comments: Will treat with cephalexin 500 mg t.i.d. for 7 days. Does have contact dermatitis also. TMC 0.1% cream b.i.d. topically for 10 days Other orders - cephALEXin (KEFLEX) 500 MG Capsule; Take 1 Capsule by mouth 3 times daily for 7 days. - triamcinolone (KENALOG) 0.1 % Cream; Apply to rash bid for 10 days Call if symptoms persist or increases. Chief Complaint Patient presents with ??? Blister On right ankle HPI Patient is here with complain of rash on the right ankle area for past 1 week. Had a scratch in thearea for which she has been applying antibiotic cream. Now area is blister every and more red. Itching present. No fever or chills. ROS Review of systems was negative, except as documented in HPI PHYSICAL EXAM VITALS: Wt Readings from Last 3 Encounters: 10/18/23 138 lb (62.6 kg) 08/17/23 134 lb (60.8 kg) 05/17/23 130 lb (59 kg) Temp Readings from Last 3 Encounters: 10/18/23 98.4 ??F (36.9 ??C) (Temporal) 08/17/23 98.2 ??F (36.8 ??C) (Temporal) 05/17/23 97.9 ??F (36.6 ??C) (Temporal) BP Readings from Last 3 Encounters: 10/18/23 122/70 08/17/23 118/72 05/17/23 112/78 Pulse Readings from Last 3 Encounters: 10/18/23 76 08/17/23 75 05/17/23 73 Physical Exam Vitals and nursing note reviewed. Constitutional: Appearance: Normal appearance. HENT: Head: Normocephalic. Eyes: Extraocular Movements: Extraocular movements intact. Cardiovascular: Rate and Rhythm: Normal rate and regular rhythm. Pulses: Normal pulses. Pulmonary: Effort: Pulmonary effort is normal. Musculoskeletal: General: Normal range of motion. Cervical back: Normal range of motion and neck supple. Skin: General: Skin is warm and dry. Comments: Right ankle-patch of erythema with small papular lesions on the right ankle below right lateral malleolus present. No lymphangitis. Probably she has cellulitis along with contact dermatitisdue to antibiotic cream. Neurological: General: No focal deficit present. Mental [...] ??? Calcium Carbonate (CALCIUM 500 PO) ??? cephALEXin (KEFLEX) 500 MG Capsule ??? Denosumab (PROLIA) 60 MG/ML Solution Prefilled [...] may have occurred. By: Torito Gonzalez MD 10/18/2023 9:57 AM STEAM SETTER M SETTER documented in this encounter Plan of Treatment Upcoming Encounters Date Type Department Care Team (Late st Contact Info) Description 11/19/2024 8:00 AM STEAM SETTER Office Visit [facility] - Internal Medicine - [place] [address] [place] [address] Torito Gonzalez MD [address] [place] [address] documented as of this encounter Visit Diagnoses Diagnosis Cellulitis of foot- Primary Cellulitis and abscess of foot, except toes documented in this encounter Additional Health Concerns Assessment Noted Time PHQ-9 Depression Total Score: 6 02/11/20 23 8:00 AM CDT documented as of this encounter Care Teams Home Fire Alarm Installer Relationship Specialty Start Date End Date Torito Gonzalez MD [address] [place] [address] PCP - General Internal Medicine 02/01/20 Guille Collier MD [address] [place] [id number] Consulting Physician Pulmonary Disease 12/06/22 documented as of this encounter
--- OUTSIDE RECORDS SUMMARY | 2024-11-18 11:33 | XMS_ITS | Encounter Summary ---
Author Organization [facility] Address [address] [place] [address] Phone Care Team Providers Care Technology Project Manager Name Role Phone Torito Gonzalez MD Primary Care Provider [phone] Guille Collier MD Unavailable Reason for Visit * Reason Comments COPD 3 MO follow up Encounter Details Date Type Department Care Team (Late st Contact Info) Description 05/17/2023 8:15 AM CDT Office Visit [facility] - Internal Medicine [facility] [address] [place] [id number] Torito Gonzalez MD [address] [place] [address] Acute non-recurrent sinusitis, unspecified location (Primary Dx); Centrilobular emphysema (HCC); Essential (primary) [...] Master's degree (e.g., MA, MS, Nathalia, MEd, INTEGRATION SOLUTION ARCHITECT, VANESSA) 02/10/2023 Sexually Active Control Partners Comments [...] Sign Reading Time Taken Comments Blood Pressure 112/78 05/17/2023 8:14 AM CDT Pulse 73 05/17/2023 8:14 AM CDT Temperature 36.6 ??C (97.9 ??F) 05/17/2023 8:14 AM CD T Respiratory Rate 14 05/17/2023 8:14 AM CDT Oxygen Saturation 96% 05/17/2023 8:14 AM CDT Inhaled Oxygen Concentration - - Weight 59 kg (130 lb) 05/17/2023 8:14 AM CDT Height 165.1 cm (5' 5 ) 05/17/2023 8:14 AM CDT Body Mass Index 21.63 05/17/2023 8:14 AM CDT documented in this encounter Progress Notes * Sol Valle, RMToy - 05/17/2023 8:15 AM CDT Gabbie Chris, 67 y.o., female is here for COPD (3 MO follow up ) Medication Refills: Patient reports/denies need for medication refills. Orders Pended: no Requested Prescriptions No prescriptions requested or ordered in this encounter Home Medications Medication Sig Start Date End Date Taking? Authorizing Provider albuterol 108 (90 Base) MCG/ACT Aerosol Solution take 1-2 Puffs by inhalation every 6 hours as needed for Wheezing. 06/21/22 Torito Gonzalez MD amLODIPine (NORVASC) 5 MG Tablet Take 5 mg by mouth daily. Provider, Not On File aspirin 81 MG Chewable Tablet Baby Aspirin 81 mg chewable tablet Chew 1 tablet every day by oral route. Provider, MD Christie budesonide (PULMICORT) 0.5 MG/2ML Suspension 2 mL by Nebulization route 2 times daily. DX COPD J44.9 02/10/23 Torito Gonzalez MD Calcium Carbonate (CALCIUM 500 PO) Take by mouth. ProviderChristie MD Cholecalciferol (VITAMIN D-3 PO) Take by mouth. Christie Lancaster MD Denosumab (PROLIA) 60 MG/ML Solution Prefilled Syringe 60 mg by Subcutaneous route. 12/21/22 Christie Lancaster MD famotidine (PEPCID) 20 MG Tablet Take 1 Tablet by mouth 2 times daily. 09/14/22 Torito Gonzalez MD fluticasone (FLONASE) 50 MCG/ACT Suspension 1 [place] by Nasal route 2 times daily. Use in each nostril as directed. 12/16/21 Torito Gonzalez MD ipratropium-albuterol (DUO-NEB) 0.5-2.5 (3) MG/3ML Solution 3 mL by Nebulization route 4 times daily. DX J44.9 COPD 02/10/23 Torito Gonzalez MD metoprolol Succinate (TOPROL-XL) 25 MG TABLET SR 24 HR metoprolol succinate ER 25 mg tablet,extended release 24 hr TAKE 1 TABLET BY MOUTH ONCE DAILY 01/19/23 Christie Lancaster MD Mis. Devices Misc Nebulizer machine with accessories - 1 DX- COPD J44.9 Use as directed to inhale Duoneb q6hrs 06/21/22 Torito Gonzalez MD mupirocin (BACTROBAN) 2 % Ointment Apply. 01/25/23 ProviderChristie MD There are no discontinued medications. I have reviewed the home medication list with the patient and have reconciled discrepancies. The list is accurate to the best of my knowledge. Smoking Status: Social History Tobacco Use ??? Smoking status: Former Types: Cigarettes Quit date: 12/07/2009 Years since quittin.4 Passive exposure: Past ??? Smokeless tobacco: Never [...] Zoster Immunization (1 of 2) Never done Orders Pended: no The following BPA's have been addressed with the patient today: BMI * Torito Gonzalez MD - 05/17/2023 8:15 AM CDT PROGRESS NOTE [facility] - INTERNAL MEDICINE [address] [place] [address] PHONE: [phone] FAX: [phone] 05/17/2023 NAME: Gabbie Chris, : 1955, Assessment ASSESSMENT & PLAN: Return in about 3 months (around 08/17/2023) for htn. Diagnoses and all orders for this visit: Acute non-recurrent sinusitis, unspecified location Comments: Will try Septra DS 1 b.i.d. for 10 days. If symptoms persist advised to have follow-up with ENT specialist Centrilobular emphysema (HCC) Comments: Stable. Continue current medication Essential (primary) hypertension Comments: Controlled. Continue current medication Other orders - Dupilumab (Dupixent) 200 MG/1.14ML Solution Pen-injector; by Subcutaneous route. - sulfamethoxazole-trimethoprim DS (BACTRIM DS, SEPTRA DS) 800-160 MG Tablet; Take 1 Tablet by mouth 2 times daily for 10 days. Follow-up in 3 months, sooner if needed Chief Complaint Patient presents with ??? COPD 3 MO follow up HPI Patient is here for follow-up for COPD. Chest congestion cough much better. Recently was hospitalized for COPD exacerbation. Now has sinus congestion with postnasal drainage. On Dupixent for recurrent nasal polyps. ROS Review of systems was negative, except as documented in HPI PHYSICAL EXAM VITALS: Wt Readings from Last 3 Encounters: 05/17/23 130 lb (59 kg) 02/10/23 130 lb (59 kg) 01/13/23 125 lb (56.7 kg) Temp Readings from Last 3 Encounters: 05/17/23 97.9 ??F (36.6 ??C) (Temporal) 02/10/23 97.9 ??F (36.6 ??C) (Temporal) 01/13/23 98 ??F (36.7 ??C) (Temporal) BP Readings from Last 3 Encounters: 05/17/23 112/78 02/10/23 110/66 01/13/23 110/68 Pulse Readings from Last 3 Encounters: 05/17/23 73 02/10/23 62 01/13/23 92 Physical Exam Vitals and nursing note reviewed. Constitutional: Appearance: Normal appearance. HENT: Head: Normocephalic. Mouth/Throat: Mouth: Mucous membranes are moist. Comments: Pharynx is mildly inflamed Eyes: Extraocular Movements: Extraocular movements intact. Conjunctiva/sclera: [...] ??? fluticasone (FLONASE) 50 MCG/ACT Suspension ??? ipratropium-albuterol (DUO-NEB) 0.5-2.5 (3) MG/3ML Solution ??? Misc. Devices Misc ??? mupirocin (BACTROBAN) 2 % Ointment ??? sulfamethoxazole-trimethoprim DS (BACTRIM DS, SEPTRA DS) 800-160 MG Tablet I educated Gabbie regarding diagnoses and plan of care. She verbalizes understanding and will call the office if situation changes. Voice recognition software was utilized in this dictation. Despite proof reading, typographical errors and/or content errors may have occurred. By: Torito Gonzalez MD 05/17/2023 9:38 AM CDT documented in this encounter Plan of Treatment Upcoming Encounters Date Type Department Care Team (Late st Contact Info) Description 11/19/2024 8:00 AM BARK SKINNER [facility] - [facility] Medicine [facility] [address] [place] [address] Torito Gonzalez MD [address] [place] [address] documented as of this encounter Visit Diagnoses Diagnosis Acute non-recurrent sinusitis, unspecified location- Primary Centrilobular emphysema (HCC) Other emphysema Essential (primary) hypertension Unspecified essential hypertension documented in this encounter Additional Health Concerns Assessment Noted Time PHQ-9 Depression Total Score: 6 02/11/20 8:00 AM CDT documented as of this encounter Care Teams Technology Project Manager Relationship Specialty Start Date End Date Torito Gonzalez MD [address] [place] [address] PCP - General Internal Medicine 02/01/20 Guille Collier MD [address] [place] [address] Consulting Physician Pulmonary Disease 12/06/22 documented as of this encounter
--- OUTSIDE RECORDS SUMMARY | 2024-11-18 11:34 | XMS_ITS | Encounter Summary ---
Author Organization [facility] Address [address] [place] [address] Phone Care Team Providers Care Special Projects Coordinator Name Role Phone Torito Gonzalez MD Primary Care Provider [phone] Reason for Visit * Reason Comments COPD Patient went to ER o n 10/30 o2 was 83 could no breath covid FlU Neg Encounter Details Date Type Department Care Team (Late st Contact Info) Description 11/04/2022 9:15 AM POLISHER NUMERAL Office Visit [facility] - Internal Medicine - [place] [address] [place] [id number] Aneta Riley, [facility] [address] [place] [address] Centrilobular emphysema (HCC) (Primary Dx); Cough, unspecified type Discharge Disposition: Discharged to home or Selfcare Social History Tobacco Use Types Packs/Day Years Used Date Smoking Tobacco: Former Cigarettes Q uit: 12/07/2009 Smokeless Tobacco: Never Tobacco Cessation:Counseling Given: No [...] suspected to have Coronavirus/COVID-19? No / Unsure 11/04/2022 8:27 AM POLISHER NUMERAL documented as of this encounter Last Filed Vital Signs Vital Sign Reading Time Taken Comments Blood Pressure 114/78 11/04/2022 8:42 AM POLISHER NUMERAL Pulse 63 11/04/2022 8:42 AM POLISHER NUMERAL Temperature 36.9 ??C (98.5 ??F) 11/04/2022 8:42 AM CS T Respiratory Rate 14 11/04/2022 8:42 AM POLISHER NUMERAL Oxygen Saturation 97% 11/04/2022 8:42 AM POLISHER NUMERAL Inhaled Oxygen Concentration - - Weight 60.7 kg (133 lb 14.4 oz) 11/04/2022 8:42 AM POLISHER NUMERAL Height 165.1 cm (5' 5 ) 11/04/2022 8:42 AM POLISHER NUMERAL Body Mass Index 22.28 11/04/2022 8:42 AM POLISHER NUMERAL documented in this encounter Functional Status * Question Answer Date of Assessment Author Little interest or pleasure in doing things Not at all 11/04/2022 8:00 AM Sol Yan RMA Feeling down, depressed, or hopeless Not at all 11/04/2022 8:00 AM POLISHER NUMERAL Sol Valle RMA * Over the past 2 weeks, how often have you been bothered by any of the following problems? Question Answer Date of Assessment Author Patient Health Questionnaire -2 Score 0 11/04/2022 8:00 AM Sol Yan RMA documented as of this encounter Progress Notes * Sol Valle RMA - 11/04/2022 9:15 AM CST Gabbie Chris, 67 y.o., female is here for COPD (Patient went to ER on 10/30 o2 was 83 could nobreath covid FlU Neg ) Medication Refills: Patient reports/denies need for [...] mouth daily. Yes Provider, Not On File arformoterol tartrate (BROVANA) 15 MCG/2ML Nebulizer Soln 15 mcg by Nebulization route 2 times daily. DX- COPD J44.9 10/07/22 Yes Torito Gonzalez MD aspirin 81 MG Chewable Tablet Baby Aspirin 81 mg chewable tablet Chew 1 tablet every day by oral route. Yes ProviderChristie MD azelastine (ASTELIN) 0.1 % Solution 2 Sprays by Nasal route 2 times daily. Use in each nostril as directed 10/07/22 Yes Torito Gonzalez MD azithromycin (ZITHROMAX) 250 MG Tablet Take 1 Tablet by mouth daily for 5 days. 2 tab(s) daily for 1 day, then 1 tab(s) daily for days 2-5. 10/30/22 11/04/22 Yes Torrey Zuniga MD budesonide (PULMICORT) 0.5 MG/2ML Suspension 0.5 mg by Nebulization route 2 times daily. Yes Provider, MD Christie famotidine (PEPCID) 20 MG Tablet Take 1 Tablet by mouth 2 times daily. 09/14/22 Yes Torito Gonzalez MD fluticasone (FLONASE) 50 MCG/ACT Suspension 1 [place] by Nasal route 2 times daily. Use in each nostril as directed. 12/16/21 Yes Torito Gonzalez MD ipratropium-albuterol (DUO-NEB) 0.5-2.5 (3) MG/3ML Solution 3 mL by Nebulization route 4 times daily for 180 days. DX- COPD J44.9 06/21/22 12/18/22 Yes Torito Gonzalez MD methylPREDNISolone (MEDROL DOSPACK) 4 MG Tablet Therapy Pack See product package insert for dosing schedule 10/30/22 Yes Torrey Zuniga [place] [facility] Nebulizer machine with accessories - 1 DX- COPD J44.9 Use as directed to inhale Duoneb q6hrs 06/21/22 Yes Torito Gonzalez MD predniSONE (DELTASONE) 10 MG Tablet Take 1 Tablet by mouth daily. Patient not taking: Reported on 11/04/2022 10/07/22 Torito Gonzalez MD There are no discontinued medications. I have reviewed the home medication list with the patient and have reconciled discrepancies. The list is accurate to the best of my knowledge. Smoking Status: Social History Tobacco Use ??? Smoking status: Former Types: Cigarettes Quit date: 12/07/2009 Years since quittin.9 ??? Smokeless tobacco: Never Vaping Use ??? [...] addressed with the patient today: BMI and Depression SHER NUMERAL * Aneta Riley PAC - 11/04/2022 9:15 AM CST Chief Complaint: Chief Complaint Patient presents with ??? COPD Patient went to ER on 10/30 o2 was 83 could no breath covid FlU Neg Assessment/Plan: Diagnoses and all orders for this visit: Centrilobular emphysema (HCC) Cough, unspecified type Pt is getting better and back to her baseline She is seeing PULM soon for her COPD dx and her TOOTIE dx Her cough and breathing have improved She is no longer on oxygen and ox sats have been ok No other c/o Exam stable VSS Subjective: Ms. Gabbie Chris is a 67 y.o. female here today for above. ER f/u Had cough and URI and SOB Her COPD had flared up COVID was neg Flu was neg covid positive in chart is an error Pt flare has improved Cough is better No new SOB Not needing oxygen now Seeing PULM soon No other c/o ROS: Review of Systems HENT: Negative for congestion. Respiratory: Negative for cough, sputum production and shortness of breath. VITAL SIGNS: BP Readings from Last 3 Encounters: 11/04/22 114/78 10/30/22 137/79 10/07/22 114/70 Wt Readings from Last 3 Encounters: 11/04/22 133 lb 14.4 oz (60.7 kg) 10/30/22 133 lb (60.3 kg) 10/07/22 133 lb (60.3 kg) Vitals: 11/04/22 0842 BP: 114/78 BP Location: Left Arm BP Position: Sitting BP Cuff Size: Regular Pulse: 63 Resp: 14 Temp: 98.5 ??F (36.9 ??C) TempSrc: Temporal SpO2: 97% Weight: 133 lb 14.4 oz (60.7 kg) Height: 5' 5 (1.651 m) Body mass index is 22.28 kg/m??. PHYSICAL EXAM: Physical Exam Vitals reviewed. HENT: Head: Normocephalic. Mouth/Throat: Mouth: Mucous membranes are moist. Eyes: Extraocular Movements: Extraocular movements intact. Cardiovascular: Rate and Rhythm: Regular rhythm. Heart sounds: Normal heart sounds. Pulmonary: Breath sounds: Normal breath sounds. Abdominal: Palpations: Abdomen is soft. Musculoskeletal: Cervical back: Neck supple. Neurological: General: No focal deficit present. Mental Status: She is alert. Psychiatric: Mood and Affect: Mood normal. Labs/Studies Reviewed: Lab Results Component Value Date WBC 10.14 10/30/2022 HEMOGLOBIN 14.9 10/30/2022 HEMATOCRIT 46.3 10/30/2022 PLATELETCNT 222 10/30/2022 MCV 91.1 10/30/2022 Lab Results Component Value Date SODIUM 137 10/30/2022 POTASSIUM 3.8 10/30/2022 CHLORIDE 103 10/30/2022 CO2VEN 24 10/30/2022 ANIONGAP 13.8 10/30/2022 GLUCOSE 91 10/30/2022 BUN 21 10/30/2022 CREATININE 0.88 10/30/2022 BCRATIO8 24 (H) 10/30/2022 TOTALPROTEIN 8.1 10/30/2022 ALBUMIN 4.2 10/30/2022 CALCIUM 10.2 10/30/2022 TBIL 0.4 10/30/2022 SGOTAST 23 10/30/2022 SGPTALT 15 10/30/2022 ALKALINEPHO 106 (H) 10/30/2022 GFRNA >60 10/30/2022 GFRA >60 10/30/2022 No results found for: TSH No results found for: HGBA1C Lab Results Component Value Date CHOLESTEROL 198 01/14/2022 TRIGLYCRIDES 106 01/14/2022 HDLCHOLESTE 64.6 01/14/2022 LDL 112 01/14/2022 No results found for: PSASCREEN, PSA, PSAFREE, PSAPCNTFREE, PSATOTAL @MAMMOFINDINGS@ EKG 12 LEAD Result Date: 11/01/2022 Normal sinus rhythm Normal ECG No previous ECGs available Confirmed by Chidi Adamson ([id number]) on 11/01/2022 10:22:52 AM Recent Procedure Details No resulted procedures found. FOLLOWUP: Follow-up Information Return in about 3 months (around 02/02/2023) for Follow up with PRIMARY CARE PROVIDER. LOS Today OFFICE/OP EST LVL 3 LOW MDM/20-29 MIN Past medical, surgical, social and family history has been reviewed and updated as necessary. Medications and allergies has been reviewed and updated. I discussed all new medications and potential side effects or risks associated with them. Patient is to contact our office with any concerns. Patient instructions and educational materials were given to the patient. Patient (or patient liability claims representative) demonstrates verbal understanding of instructions given. Patient should follow up with their PCP for general health maintenance needs. Patient should contact our office if their problems persist or call 911/go the to ER if issues become more persistent. If any referrals have been made, patient should contact our office with in 3-5 days if they have not heard anything from our referral team or the referring physician. SHER NUMERAL documented in this encounter Plan of Treatment Upcoming Encounters Date Type Department Care Team (Late st Contact Info) Description 11/19/2024 8:00 AM POLISHER NUMERAL Office Visit [facility] - Internal Medicine - [place] [address] [place] [address] Torito Gonzalez MD [address] [place] [address] documented as of this encounter Visit Diagnoses Diagnosis Centrilobular emphysema (HCC)- Primary Other emphysema Cough, unspecified type documented in this encounter Additional Health Concerns Infection Onset Date Last Indicated Resolved Time COVID - 19 Confirmed 10/30/2022 10/30/2022 022 12:16 AM POLISHER NUMERAL COVID - 19 10/30/2022 10/30/2022 11/09/2022 12:1 6 AM POLISHER NUMERAL Assessment Noted Time PHQ-9 Depression Total Score: 0 07/14/20 21 8:00 AM CDT documented as of this encounter Care Teams Special Projects Coordinator Relationship Specialty Start Date End Date Torito Gonzalez MD [address] [place] [address] PCP - General Internal Medicine 02/01/20 documented as of this encounter
--- OUTSIDE RECORDS SUMMARY | 2024-11-18 11:34 | XMS_ITS | Encounter Summary ---
Author Organization [employer] Care Team Providers Care Center Director Name Role Phone Torito Gonzalez MD Primary Care Provider [phone] Encounter Details Date Type Department Care Team (Latest Contact Info) Description 10/30/2022 Travel Social History Tobacco Use Types Packs/Day [...] suspected to have Coronavirus/COVID-19? No / Unsure 10/30/2022 6:38 PM LAMP SHADES SUPERVISOR documented as of this encounter Plan of Treatment Upcoming Encounters Date Type Department Care Team (Late st Contact Info) Description 11/19/2024 8:00 AM LAMP SHADES SUPERVISOR Office Visit [facility] - Internal Medicine - [place] [address] [place] [address] Torito Gonzalez MD [address] [place] [address] documented as of this encounter Visit Diagnoses Not on filedocumented in this encounter Additional Health Concerns Infection Onset Date Last Indicated Resolved Time COVID - 19 Confirmed 10/30/2022 10/30/2022 022 12:16 AM LAMP SHADES SUPERVISOR COVID - 19 10/30/2022 10/30/2022 11/09/2022 12:1 6 AM LAMP SHADES SUPERVISOR Assessment Noted Time PHQ-9 Depression Total Score: 0 07/14/20 21 8:00 AM CDT documented as of this encounter Care Teams Center Director Relationship Specialty Start Date End Date Torito Gonzalez MD [address] [place] [address] PCP - General Internal Medicine 02/01/20 documented as of this encounter
--- OUTSIDE RECORDS SUMMARY | 2024-11-18 11:34 | XMS_ITS | Encounter Summary ---
Author Organization [facility] Address [address] [place] [address] Phone Care Team Providers Care Toll Relief Operator Name Role Phone Torito Gonzalez MD Primary Care Provider [phone] Reason for Visit * Consult, Test & Initiate Treatment (Routine) - Closed Specialty Diagnoses / Procedures Referred By Contac t Referred To Contact Sleep Center Diagnoses Observed sleep apnea Snoring Torito Gonzalez MD [address] [place] [address] Phone: tel: fax: [facility] [address] [place] [address] Phone: tel: fax: Referral ID Status Reason Start Date Expiration Date Visits Re quested Visits Authorized [id number] Closed 10/07/2022 1 1 Encounter Details Date Type Department Care Team (Late st Contact Info) Description 10/14/2022 8:00 PM PEOPLESOFT DEVELOPER Sleep Lab [facility] [address] [place] [address] Torito Gonzalez MD [address] [place] [address] Observed sleep apnea; Snoring; Observed sleep apnea Discharge Disposition: Discharged to home or Selfcare [...] suspected to have Coronavirus/COVID-19? No / Unsure 10/14/2022 6:52 PM PEOPLESOFT DEVELOPER documented as of this encounter Procedure Notes * Guille Collier MD - 10/14/2022 8:00 PM CST Evaluation Report Gabbie Chris 10/14/2022 Ms. Gabbie Chris, a 67 year old female (1955), was seen at the [facility] for a sleep apnea evaluation. She has a history significant for snoring, witnessed apnea, history of previous supplemental oxygen us and history of Covid. [place] Scale is 10. Her current height is 65 inches and weight is 130 lbs, resulting in a BMI of 21.7. Her neck size is 13 inches. She is referred by Dr. Torito Gonzalez. SUMMARY: ??? Mild obstructive sleep apnea (G47.33). ??? Overall AHI=5.1/hr, Overall SDB index=6.4/hr. ??? Oximetry showed average sleep saturation of 92%, lowest SaO2 was 87% and her saturations were above 90% for 86.2% of the night. ??? Lateral anterior tibialis recording showed moderate periodic limb movements with 6.6 per hour resulting in arousal. recommendations: ??? Consider all night titration of nasal CPAP or evaluation with dental appliance. ??? Recommend evaluation for underlying causes of RLS and PLMD, including serum ferritin and iron. Consider trial with pharmacological agents for treatment for PLMD if symptoms warrant. ??? Obtain and maintain ideal body weight. ??? Avoid alcohol and other [employer] depressants. If daytime sleepiness persists, despite the above recommendations, a reevaluation with daytime somnolence testing may be considered. POLYSOMNOGRAPHY: Nocturnal polysomnography was performed 10/14/2022 (10:17 p.m. to 04:22 a.m.), using standard recording parameters which include Frontal, Central and Occipital EEG,, left and right EOG, submental EMG, EKG, left and right anterior tibialis EMG, abdominal and thoracic respiratory effort, nasal/oral airflow, and oximetry. Data were interpreted following standard AASM criteria utilizing the 30% reduction in airflow resulting in at least a 4% desaturation definition of hypopnea (AASM Rule 1B). SLEEP DATA: Ms. Chris had a total sleep time (TST) of 318.5 minutes out of 365.5 minutes total recording time (TRT) for a sleep efficiency (TST/TRT) of 87.1%. Sleep latency was 6.5 minutes and REM latency was 108.5 minutes. Sleep architecture revealed Stage N1 sleep 8.6% of total sleep time. Stage N2 sleep was 50.1%, Stage N3 sleep was 10.7% and Stage R sleep was 30.6%. There were 14.3 spontaneous arousals per hour of sleep. There was 38 minutes of wake after sleep onset reported. RESPIRATORY MONITORING: Respiratory monitoring revealed 1 obstructive apneas, 0 mixed apneas, 0 central apnea and 26 partial upper airway obstructions (obstructive hypopneas) resulting in an overall apnea and hypopnea index(AHI) of 5.1 per hour of sleep. No supine sleep was noted. Her overall prone AHI was 0.0 events perhour of supine sleep (54.0 minutes total supine sleep) and lateral AHI was 5 events per hour of late ral sleep (264.5 minutes total lateral sleep). There was an average of 1.6 apneas and hypopneas perhour of non-REM sleep and an average of 12.9 apneas and hypopneas per hour of REM sleep. There werean additional 7 respiratory event related arousals (RERAs=hypopneas without a 4% oxygen desaturation) which resulted in an overall sleep disordered breathing (SDB) index of 6.4/hr. Baseline SaO2 was 92% and the lowest SaO2 was 87%. Technicians noted constant quiet snores during sleep. LIMB MOVEMENTS AND ECG: Anterior tibialis EMG monitoring revealed 147 periodic leg movements in sleep (27.7 per hour), 35 of which were associated with unambiguous EEG arousal (6.6 per hour). ECG showed Normal Sinus Rhythm with some sinus arrhythmia noted. Her average heart rate during wakewas 70 beats per minutes and during sleep was 62 beats per minute. PATIENT ASSESSMENT: On the morning post sleep questionnaire, the patient estimated a sleep latency of 30 minutes and a total sleep time of 6 hours. She noted that the sleep in the laboratory was the same as usual. Guille Collier MD LESOFT DEVELOPER LESOFT DEVELOPER LESOFT DEVELOPER Associated attestation - Alhaji Hartman MD - 10/26/2022 5:26 PM PEOPLESOFT DEVELOPER I have read the Sleep Report for this patient and attest that I am in agreement with it. documented in this encounter Plan of Treatment Upcoming Encounters Date Type Department Care Team (Late st Contact Info) Description 11/19/2024 8:00 AM PEOPLESOFT DEVELOPER Office Visit [facility] - Internal Medicine - [place] [address] [place] [address] Torito Gonzalez MD [address] [place] [address] documented as of this encounter Procedures Procedure Name Priority Date/Time Associated Diagnosis Comments SPLIT NIGHT POLYSOMNOGRAPHY - INCLUDES DIAGNOSTIC AND CPAP TITRATION Routine 10/15/2022 12:00 AM PEOPLESOFT DEVELOPER Observed sleep apnea Snoring documented in this encounter Results * SPLIT NIGHT PSG (10/15/2022 12:00 AM PEOPLESOFT DEVELOPER) 10/15/2022 us Torito Gonzalez MD SLEEP CENTER ORDERABLES Fin al Result SCAN documented in this encounter Visit Diagnoses Diagnosis Observed sleep apnea Unspecified sleep apnea Snoring Other dyspnea and respiratory abnormality documented in this encounter Additional Health Concerns Assessment Noted Time PHQ-9 Depression Total Score: 0 07/14/20 21 8:00 AM CDT documented as of this encounter Care Teams Toll Relief Operator Relationship Specialty Start Date End Date Torito Gonzalez MD [address] [place] [address] PCP - General Internal Medicine 02/01/20 documented as of this encounter
--- OUTSIDE RECORDS SUMMARY | 2024-11-18 11:34 | XMS_ITS | Encounter Summary ---
Author Organization [facility] Address [address] [place] [address] Phone Care Team Providers Care Pinion Sorter Name Role Phone Torito Gonzalez MD Primary Care Provider [phone] Guille Collier MD Unavailable Reason for Referral * Other (Routine) - Closed Specialty Diagnoses / Procedures Referred By Contac t Referred To Contact Pulmonology Diagnoses Centrilobular emphysema (HCC) Procedures COMPLETE PFT W + W/O BRONCHODILATOR Guille Collier MD [address] [place] [address] Phone: tel: fax: Referral ID Status Reason Start Date Expiration Date Visits Re quested Visits Authorized [id number] Closed 12/17/2022 1 1 BOARD WORKER Encounter Details Date Type Department Care Team (Late st Contact Info) Description 12/17/2022 [facility]phone [facility] [address] [place] [address] Guille Collier MD [address] [place] [address] Social History Tobacco Use Types Packs/Day Years [...] suspected to have Coronavirus/COVID-19? No / Unsure 12/10/2022 11:59 AM DROP BOARD WORKER documented as of this encounter Miscellaneous Notes * Addendum Note - Nereyda Acevedo - 12/17/2022 11:34 AM CSTAddended by: NEREYDA ACEVEDO on: 12/17/2022 11:34 AM Modules accepted: Orders BOARD WORKER * Telephone Encounter - Nereyda Acevedo - 12/17/2022 11:33 AM CST Patient called and said that her ENT called her with the results and she is scheduled for sinus surgery. Pt is also aware of PFT results. BOARD WORKER * Telephone Encounter - Nereyda Acevedo - 12/17/2022 9:36 AM CST Pt called wanting the results of her ct sinus scan. Please review and give recommendations. BOARD WORKER documented in this encounter Plan of Treatment Upcoming Encounters Date Type Department Care Team (Late st Contact Info) Description 11/19/2024 8:00 AM DROP BOARD WORKER Office Visit [facility] - Internal Medicine - [place] [address] [place] [address] Torito Gonzalez MD [address] [place] [address] Scheduled Orders Name Type Priority Associated Diagnoses Orde r Schedule COMPLETE PFT W + W/O BRONCHODILATOR PFT Routine Centrilobular emphysema (HCC) Expected: 12/17/2023, Expires: 06/16/2024 documented as of this encounter Visit Diagnoses Diagnosis Centrilobular emphysema (HCC)- Primary Other emphysema documented in this encounter Additional Health Concerns Assessment Noted Time PHQ-9 Depression Total Score: 0 07/14/20 21 8:00 AM CDT documented as of this encounter Care Teams Pinion Sorter Relationship Specialty Start Date End Date Torito Gonzalez MD [address] [place] [address] PCP - General Internal Medicine 02/01/20 Guille Collier MD [address] [place] [address] Consulting Physician Pulmonary Disease 12/06/22 documented as of this encounter
--- OUTSIDE RECORDS SUMMARY | 2024-11-18 11:34 | XMS_ITS | Encounter Summary ---
Author Organization [facility] Address [address] [place] [address] Phone Care Team Providers Care Senior Climate Advisor Name Role Phone Torito Gonzalez MD Primary Care Provider Reason for Visit * Reason Comments Shortness of Breath Encounter Details Date Type Department Care Team (Late st Contact Info) Description 10/30/2022 6:40 PM TWISTING MACHINE OPERATOR - 10/30/2022 10:47 PM TWISTING MACHINE OPERATOR Emergency [facility] [address] [place] [address] Torrey Zuniga MD [address] [place] [id number] COPD with acute exacerbation (HCC) Discharge Disposition: Discharged to home or [...] Coronavirus/COVID-19? No / Unsure 10/30/2022 6:38 PM TWISTING MACHINE OPERATOR documented as of this encounter Last Filed Vital Signs Vital Sign Reading Time Taken Comments Blood Pressure 137/79 10/30/2022 10:46 PM TWISTING MACHINE OPERATOR Pulse 92 10/30/2022 10:46 PM TWISTING MACHINE OPERATOR Temperature 37 ??C (98.6 ??F) 10/30/2022 10:46 PM TWISTING MACHINE OPERATOR Respiratory Rate 17 10/30/2022 10:46 PM TWISTING MACHINE OPERATOR Oxygen Saturation 93% 10/30/2022 10:46 PM TWISTING MACHINE OPERATOR Inhaled Oxygen Concentration - - Weight 60.3 kg (133 lb) 10/30/2022 6:38 PM TWISTING MACHINE OPERATOR Height 165.1 cm (5' 5 ) 10/30/2022 6:38 PM TWISTING MACHINE OPERATOR Body Mass Index 22.13 10/30/2022 6:38 PM TWISTING MACHINE OPERATOR documented in this encounter Discharge Instructions * Attachments The following attachments cannot be sent through Care Everywhere. * Chronic Obstructive Pulmonary Disease Exacerbation Uqmo-bg-[id number] (Sinhala) * Acute Bronchitis Adult (Sinhala) documented in this encounter Medications at Time of Discharge albuterol 108 (90 Base) MCG/ACT Aerosol Solution take 1-2 Puffs by inhalation every 6 hours as needed for Wheezing. 18 g 2 06/21/2022 amLODIPine (NORVASC) 5 MG Tablet Take 5 mg by mouth daily. aspirin 81 MG Chewable Tablet Baby Aspirin 81 mg chewable tablet Chew 1 tablet every day by oral route. famotidine (PEPCID) 20 MG Tablet Take 1 Tablet by mouth 2 times daily. 90 Tablet 09/14/2022 arformoterol tartrate (BROVANA) 15 MCG/2ML Nebulizer Soln 15 mcg by Nebulization route 2 times daily. DX- COPD J44.9 120 mL 2 10/07/2022 3 aspirin 81 MG Chewable Tablet Baby Aspirin 81 mg chewable tablet Chew 1 tablet every day by oral route. 06/07/2022 3 azelastine (ASTELIN) 0.1 % Solution 2 Sprays by Nasal route 2 times daily. Use in each nostril as directed 30 mL 3 10/07/2022 3 budesonide (PULMICORT) 0.5 MG/2ML Suspension 0.5 mg by Nebulization route 2 times daily. 3 fluticasone (FLONASE) 50 MCG/ACT Suspension 1 Paige by Nasal route 2 times daily. Use in each nostril as directed. 16 g 5 12/16/2021 3 ipratropium-albu terol (DUO-NEB) 0.5-2.5 (3) MG/3ML Solution 3 mL by Nebulization route 4 times daily for 180 days. DX- COPD J44.9 360 mL 5 06/21/2022 3 methylPREDNISolo ne (MEDROL DOSPACK) 4 MG Tablet Therapy Pack See product package insert for dosing schedule 21 Tablet 10/30/2022 3 Misc. Devices Misc Nebulizer machine with accessories - 1 DX- COPD J44.9 Use as directed to inhale Duoneb q6hrs 1 Each 06/21/2022 3 predniSONE (DELTASONE) 10 MG Tablet Take 1 Tablet by mouth daily. 10 Tablet 10/07/2022 2 documented as of this encounter ED Notes * Tia Raman RN - 10/30/2022 10:47 PM CST Patient discharged. Discharge instructions and patient educational material reviewed with patient; questions and concerns addressed; patient verbalizes understanding, using teach back. Patient was given 2 prescriptions. Patient discharged per ambulatory mode with as responsible constitution party. SL D/C'ed with Jerry cath intact. TING MACHINE OPERATOR * Tia Raman RN - 10/30/2022 10:34 PM CST Patient O2 removed, at rest O2 saturation hovered around 91-93%. Patient stood up and walked aroundand O2 stayed between 92-94% on RA. ERP informed. Patient okay'd to be discharged. TING MACHINE OPERATOR * Tia Raman RN - 10/30/2022 8:48 PM CST Patient to CT TING MACHINE OPERATOR * Tia Raman RN - 10/30/2022 8:06 PM CST Respiratory in with patient. TING MACHINE OPERATOR * Tia Raman RN - 10/30/2022 8:02 PM CST Pt medicated per provider orders. Pt educated on intended effects and side effects of medication and verbalized understanding, able to provide teach back of education. TING MACHINE OPERATOR * Tia Raman RN - 10/30/2022 7:15 PM CST Pt medicated per provider orders. Pt educated on intended effects and side effects of medication and verbalized understanding, able to provide teach back of education. TING MACHINE OPERATOR * Torrey Zuniga MD - 10/30/2022 7:03 PM CST Chief Complaint Patient presents with ??? Shortness of Breath Patient is a 67-year-old female with a history of COPD complaining of shortness of breath accompanied by chest tightness, cough, productive, ???milky?? sputum, that started today. Patient's oxygen saturation upon arrival to the ED was 84- 86% on room air. Patient denies any abdominal pain, nausea, vomiting, diaphoresis, fever or chills. Patient states that she was recently taken off oxygen 3 weeks ago after being on it for almost a year and a half due to COVID, since her oxygen saturation on room air had been in the 95-96%. Current Facility-Administered Medications Medication Dose Route Frequency Provider Last Rate Last Admin ??? lactated ringers infusion Intravenous Continuous Torrey Zuniga MD Stopped at 10/30/22 0660 Current Outpatient Medications Medication Sig Dispense Refill ??? albuterol 108 (90 Base) MCG/ACT Aerosol Solution take 1-2 Puffs by inhalation every 6 hours as needed for Wheezing. 18 g 2 ??? amLODIPine (NORVASC) 5 MG Tablet Take 5 mg by mouth daily. ??? arformoterol tartrate (BROVANA) 15 MCG/2ML Nebulizer Soln 15 mcg by Nebulization route 2 times daily. DX- COPD J44.9 120 mL 2 ??? aspirin 81 MG Chewable Tablet Baby Aspirin 81 mg chewable tablet Chew 1 tablet every day by oral route. ??? azelastine (ASTELIN) 0.1 % Solution 2 Sprays by Nasal route 2 times daily. Use in each nostril as directed 30 mL 3 ??? budesonide (PULMICORT) 0.5 MG/2ML Suspension 0.5 mg by Nebulization route 2 times daily. ??? doxycycline hyclate (VIBRAMYCIN) 100 MG Capsule Take 1 Capsule by mouth 2 times daily for 7 days. 14 Capsule 0 ??? famotidine (PEPCID) 20 MG Tablet Take 1 Tablet by mouth 2 times daily. 90 Tablet ??? fluticasone (FLONASE) 50 MCG/ACT Suspension 1 Paige by Nasal route 2 times daily. Use in each nostril as directed. 16 g 5 ??? ipratropium-albuterol (DUO-NEB) 0.5-2.5 (3) MG/3ML Solution 3 mL by Nebulization route 4 times daily for 180 days. DX- COPD J44.9 360 mL 5 ??? methylPREDNISolone (MEDROL DOSPACK) 4 MG Tablet Therapy Pack See product package insert for dosing schedule 21 Tablet 0 ??? Misc. Devices Mis Nebulizer machine with accessories - 1 DX- COPD J44.9 Use as directed to inhale Duoneb q6hrs 1 Each 0 ??? predniSONE (DELTASONE) 10 MG Tablet Take 1 Tablet by mouth daily. 10 Tablet 0 Allergies Allergen Reactions ??? Amoxicillin Nausea ??? Levaquin [Levofloxacin] Palpitations Past Medical History Positives Diagnosis Date ??? Hypertension Past Surgical History: Procedure Laterality Date ??? COLONOSCOPY 01/04/2011 Social History Socioeconomic History ??? Marital status: Spouse name: Not on file ??? Number of children: Not on file ??? Years of education: Not on file ??? Highest education level: Not on file Occupational History ??? Not on file Tobacco Use ??? Smoking status: Former Types: Cigarettes Quit date: 12/07/2009 Years since quittin.9 ??? Smokeless tobacco: Never Vaping Use ??? Vaping Use: Never used Substance and Sexual Activity ??? Alcohol use: Not Currently ??? Drug use: Never ??? Sexual activity: Not Currently Other Topics Concern ??? Not on file Social History Narrative ??? Not on file BP 127/71 Pulse 95 Temp 98.5 ??F (36.9 ??C) (Tympanic) Resp 26 Ht 5' 5 (1.651 m) Wt 133 lb (60.3 kg) SpO2 92% BMI 22.13 kg/m?? Review of Systems Constitutional: Negative for activity change, appetite change, chills, diaphoresis, fatigue and fever. HENT: Negative for congestion, ear pain, rhinorrhea, sore throat and trouble swallowing. Eyes: Negative for discharge and visual disturbance. Respiratory: Negative for wheezing. Cardiovascular: Negative for chest pain, palpitations and leg swelling. Gastrointestinal: Negative for abdominal distention, abdominal pain, anal bleeding, blood in stool,diarrhea, nausea and vomiting. Endocrine: Negative for polydipsia, polyphagia and polyuria. Genitourinary: Negative for difficulty urinating, dysuria, hematuria and menstrual problem. Musculoskeletal: Negative for arthralgias, back pain, myalgias, neck pain and neck stiffness. Skin: Negative for color change, pallor, rash and wound. Neurological: Negative for dizziness, seizures, syncope, facial asymmetry, speech difficulty, numbness and headaches. Hematological: Does not bruise/bleed easily. Psychiatric/Behavioral: Negative for confusion, hallucinations, self-injury and suicidal ideas. All other systems reviewed and are negative. Physical Exam Vitals and nursing note reviewed. Constitutional: General: She is not in acute distress. Appearance: She is well-developed. She is not ill-appearing, toxic-appearing or diaphoretic. HENT: Head: Normocephalic and atraumatic. Right Ear: External ear normal. Left Ear: External ear normal. Mouth/Throat: Mouth: Mucous membranes are moist. Pharynx: Oropharynx is clear. Eyes: General: No scleral icterus. Extraocular Movements: Extraocular movements intact. Conjunctiva/sclera: Conjunctivae normal. Pupils: Pupils are equal, round, and reactive to light. Neck: Trachea: No tracheal deviation. Cardiovascular: Rate and Rhythm: Regular rhythm. Tachycardia present. Heart sounds: Normal heart sounds. No murmur heard. No friction rub. No gallop. Pulmonary: Effort: Pulmonary effort is normal. No respiratory distress. Breath sounds: Normal breath sounds. No wheezing or rales. Abdominal: General: Abdomen is flat. Bowel sounds are normal. There is no distension. Palpations: Abdomen is soft. Tenderness: There is no abdominal tenderness. There is no guarding or rebound. Musculoskeletal: General: Normal range of motion. Cervical back: Normal range of motion. Skin: General: Skin is warm and dry. Capillary Refill: Capillary refill takes less than 2 seconds. Coloration: Skin is not cyanotic, jaundiced or mottled. Findings: No erythema or rash. Neurological: General: No focal deficit present. Mental Status: She is alert and oriented to person, place, and time. Cranial Nerves: No cranial nerve deficit. Psychiatric: Mood and Affect: Mood normal. Behavior: Behavior normal. Procedures Imaging Results CT ANGIO CHEST W/WO CONTRAST WITH PP (POST PROCESSING) (Final result) Result time 10/30/22 21:21:04 Final result by Gregorio Huang MD (10/30/22 21:21:04) Impression: IMPRESSION: 1. No PE. 2. Mild diffuse bronchial wall thickening and faint scattered bibasilar opacities are evidence for bronchitis. No consolidation. Narrative: EXAM DESCRIPTION: CT ANGIO CHEST W/WO CONTRAST WITH PP (POST PROCESSING) REASON FOR STUDY: Pulmonary embolism (PE) suspected, positive D-dimer TECHNIQUE: CT angiogram of the chest performed with intravenous contrast using helical scanning technique with dynamic intravenous contrast injection. Reconstructed coronal and sagittal MPR images reviewed. All images stored on PACS. 3D MIP images rendered on scanning unit and reviewed at time of interpretation. Automated exposure control was used as a dose optimization technique for this examination. CONTRAST TYPE/DOSE: 100 cc Isovue 370 injected via left antecubital IV COMPARISON: None FINDINGS: VASCULATURE: Bolus timing is adequate and no filling defect is seen in the pulmonary arterial tree. Systemic arterial structures are partially opacified and reveal no acute abnormality. 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 SMA origin widely patent. Renal arteries widely patent. MEDIASTINUM/LUISITO: Heart size normal. No enlarged lymph node. Thyroid gland and thoracic inlet unremarkable. LUNGS: Mild diffuse bronchial wall thickening and bronchiectasis. Faint scattered bibasilar opacities. Trachea and major airways patent. UPPER ABDOMEN: Unremarkable. MUSCULOSKELETAL: Tvce-xy-thpbaith midthoracic disc disease. CHEST WALL: Unremarkable. THIS IS AN ELECTRONICALLY VERIFIED FINAL REPORT 10/30/2022 9:18 PM - Electronically signed by Gregorio Huang M.D. AR: MIRELA Report ID: [id number] Reading Location: [id number] XR CHEST 2 VIEWS (Canceled) Labs Reviewed CMP (COMPREHENSIVE METABOLIC PANEL) - Abnormal; Notable for the following components: Result Value BUN/CREATININE RATIO 24 (*) ALKALINE PHOSPHATASE 106 (*) All other components within normal limits D-DIMER - Abnormal; Notable for the following components: D DIMER 1.47 (*) All other components within normal limits Narrative: The FDA has approved this method to exclude the diagnosis of DVT and/or PE at the cutoff value of <0.50 mcg/mL FEU. BLOOD GASES, ARTERIAL W/ O2 SATURATION - Abnormal; Notable for the following components: PH ARTERIAL 7.46 (*) PC02 (ARTERIAL) 27 (*) BASE ARTERIAL -2.9 (*) BICARBONATE 18.8 (*) All other components within normal limits MANUAL DIFFERENTIAL - Abnormal; Notable for the following components: NEUTROPHILS % 25.0 (*) EOSINOPHILS % 25.0 (*) BASOPHILS % 2.0 (*) LYMPHOCYTES ABSOLUTE 4.06 (*) EOSINOPHILS ABSOLUTE 2.54 (*) BASOPHILS ABSOLUTE 0.20 (*) All other components within normal limits SARS-COV-2 BY MOLECULAR - Normal Narrative: This test has been authorized by the FDA under an Emergency Use Authorization (EUA) only. Negative results should be treated as presumptive and, if inconsistent with clinical signs and symptoms or necessary for patient management, the patient should be tested with an alternative molecularassay. Negative results do not preclude SARS-CoV-2 infection or any other respiratory pathogen. Additional information for Clinicians can be found at: https://www.fda.gov/media/664842/download Additional information for Patients can be found at: https://www.fda.gov/media/644779/download LACTIC ACID (LACTATE) - Normal TROPONIN I (TRP I) - Normal N-TERMINAL- PRO B TYPE NATRIURETIC PEPTIDE - Normal PROTIME (PT) (PROTHROMBIN TIME) - Normal APTT (PTT) - Normal Narrative: Therapeutic range for unfractionated heparin at 0.3-0.7 U/mL is an aPTT value in the range of 71-100 seconds. Critical value for the PTT test is >= 122 seconds. CULTURE, BLOOD CULTURE, BLOOD COMPLETE BLOOD COUNT (CBC) WITH DIFF Narrative: The following orders were created for panel order CBC with Diff. Procedure Abnormality Status --------- ------ CBC with Auto Differential[[id number]] Final result Manual Differential[[id number]] Abnormal Final result Please view results for these tests on the individual orders. POCT INFLUENZA A & B CBC WITH AUTO DIFFERENTIAL MDM Number of Diagnoses or Management Options COPD with acute exacerbation (HCC) Diagnosis management comments: Differential diagnosis: Pulmonary embolism, pneumonia, COVID infection, bronchitis, bronchospasm, COPD Patient re-examined at 10 p.m., states that she is feeling better, denies being short of breath at this time. Oxygen saturation on 2 L is 98%. EKG: October 30, 2022 at 6:46 p.m.: Heart rate 92, normal sinus rhythm, normal ST/T, normal QRS, normal VT interval, normal EKG Patient's oxygen saturation on room air was 86%, she is afebrile, rest of her vital signs stable. Patient's CBC within normal limits, no elevated white count or left shift. BMP within normal limits. Normal BNP. D-dimer elevated, CTA of her chest negative for PE, aneurysm, dissection, edema, pneumonia. Patient was placed on oxygen, 2 L nasal cannula, which brought her oxygen up to 96-98 %. Influenza test negative, COVID test negative. Patient symptoms due to COPD exacerbation. She claims that she does still have her oxygen tank and equipment at home, also has a nebulizer, since she has these equipment I advised her to use her oxygen 2 L continuously, and to give herself nebulizer treatment every 6 hours p.r.n, hence, she can manage her symptoms on an outpatient basis. Patient will be discharged home and advised to follow up with her PCP and assistant news director on Tuesday. Amount and/or Complexity of Data Reviewed Clinical lab tests: reviewed Tests in the radiology section of CPT??: reviewed Risk of Complications, Morbidity, and/or Mortality Presenting problems: moderate Diagnostic procedures: moderate Management options: moderate Patient Progress Patient progress: improved Coding Clinical Impression 1. COPD with acute exacerbation (HCC) 2. Acute bronchitis, unspecified organism TING MACHINE OPERATOR * Yehuda Calloway RN - 10/30/2022 6:46 PM CST Pt to triage with c/o SOB that has been getting worse over the past two days. PT states that she was recently dx with COVID and pneumonia. PT was watching her SPO2 at home and noted that her oxygen saturation was 85-87% at home. TING MACHINE OPERATOR documented in this encounter Miscellaneous Notes * Interdisciplinary - Delvin Wood RN - 10/30/2022 10:31 PM CST OnCall Sepsis Note Sepsis BPA alert received. Chart Reviewed, no action needed due to: Sepsis not suspected at this time TING MACHINE OPERATOR documented in this encounter Plan of Treatment Upcoming Encounters Date Type Department Care Team (Late st Contact Info) Description 11/19/2024 8:00 AM TWISTING MACHINE OPERATOR Office Visit [facility] - [facility] - [place] [address] [place] [address] Torito Gonzalez MD [address] [place] [address] documented as of this encounter Procedures Procedure Name Priority Date/Time Associated Diagnosis Comments SARS-COV-2 BY MOLECULAR STAT 10/30/2022 9:49 PM TWISTING MACHINE OPERATOR POCT INFLUENZA A & B STAT 10/30/2022 9:48 [address]ING M[address]INE OPER[address] CT ANGIO CHEST W/WO CONTRAST WITH PP (POST PROCESSING) Stat with Interpretation 10/30/2022 9:01 PM TWISTING MACHINE OPERATOR BLOOD GASES, ARTERIAL W/ O2 SATURATION STAT 10/30/2022 8:21 PM TWISTING MACHINE OPERATOR N-TERMINAL- PRO B TYPE NATRIURETIC PEPTIDE STAT 10/30/2022 7:22 PM TWISTING MACHINE OPERATOR APTT (PTT) STAT 10/30/2022 7:22 PM TWISTING MACHINE OPERATOR PROTIME (PT) (PROTHROMBIN TIME) STAT 10/30/2022 7:22 PM TWISTING MACHINE OPERATOR D-DIMER STAT 10/30/2022 7:22 PM TWISTING MACHINE OPERATOR MANUAL DIFFERENTIAL STAT 10/30/2022 7:01 PM TWISTING MACHINE OPERATOR CBC WITH AUTO DIFFERENTIAL STAT 10/30/2022 7:01 PM TWISTING MACHINE OPERATOR TROPONIN I (TRP I) STAT 10/30/2022 7: 01 PM TWISTING MACHINE OPERATOR LACTIC ACID (LACTATE) STAT 10/30/2022 7:01 PM TWISTING MACHINE OPERATOR CULTURE, BLOOD STAT 10/30/2022 7:01 PM TWISTING MACHINE OPERATOR CULTURE, BLOOD STAT 10/30/2022 7:01 PM TWISTING MACHINE OPERATOR CMP (COMPREHENSIVE METABOLIC PANEL) STAT 10/30/2022 7:01 PM TWISTING MACHINE OPERATOR COMPLETE BLOOD COUNT (CBC) WITH DIFF STAT 10/30/2022 7:01 PM TWISTING MACHINE OPERATOR EKG 12 LEAD STAT 10/30/2022 6:46 PM TWISTING MACHINE OPERATOR documented in this encounter Results * SARS-COV-2 BY MOLECULAR (10/30/2022 9:49 PM TWISTING MACHINE OPERATOR) SARSCOV2 NOT DETECTED (Referenc e Range for this test is Not Detected) [facility] ID NOW B 10/30/2022 10:06 PM TWISTING MACHINE OPERATOR [facility] Comment:This test was perfor med by a MOLECULAR, NON-PCR method Other NASOPHARYNGEAL STRUCTURE / Unknown Non-Phlebotomy Collection / Unknown 10/30/2022 9:49 PM TWISTING MACHINE OPERATOR 10/30/2022 9:49 PM TWISTING MACHINE OPERATOR Narrative [facility] - 10/30/2022 10:06 PM TWISTING MACHINE OPERATOR This test has been authorized by the FDA under an Emergency Use Authorization (EUA) only. Negative results should be treated as presumptive and, if inconsistent with clinical signs and symptoms or necessary for patient management, the patient should be tested with an alternative molecular assay. Negative results do not preclude SARS-CoV-2 infection or any other respiratory pathogen. Additional information for Clinicians can be found at: https://www.fda.gov/media/970371/download Additional information for Patients can be found at: https://www.fda.gov/media/102743/download us Torrey Zuniga MD MICROBIOLOGY - GENER AL ORDERABLES Final Result [facility] [place] [address] * POCT Influenza A & B (10/30/2022 9:48 PM TWISTING MACHINE OPERATOR) POC INFLU A Presumptive negative Group A Presumptive negative Group A, Invalid POC INFLU B Presumptive negative Group B Presumptive negative Group B, Invalid POC INFLUENZA CONTROL Color Maker [place] 10/30/2022 9:48 PM TWISTING MACHINE OPERATOR us Torrey Zuniga MD POINT OF CARE TESTIN G (MANUAL) Final Result * CT ANGIO CHEST W/WO CONTRAST WITH PP (POST PROCESSING) (10/30/2022 9:01 PM TWISTING MACHINE OPERATOR) Anatomical Region Laterality Modality vascular N/A Computed Tomogra phy 10/30/2022 9:18 PM TWISTING MACHINE OPERATOR Impressions 10/30/2022 9:21 PM TWISTING MACHINE OPERATOR IMPRESSION: 1. ?? No PE. 2. ?? Mild diffuse bronchial wall thickening and faint scattered bibasilar opacities are evidence for bronchitis. ??No consolidation. ?? Narrative 10/30/2022 9:21 PM TWISTING MACHINE OPERATOR EXAM DESCRIPTION: ?? CT ANGIO CHEST W/WO CONTRAST WITH PP (POST PROCESSING) REASON FOR STUDY: ?? Pulmonary embolism (PE) suspected, positive D-dimer TECHNIQUE: CT angiogram of the chest performed with intravenous contrast using helical scanning technique with dynamic intravenous contrast injection. Reconstructed coronal and sagittal MPR images reviewed. All images stored on PACS. ?? 3D MIP images rendered on scanning unit and reviewed at time of interpretation. ??Automated exposure control was used as a dose optimization technique for this examination. CONTRAST TYPE/DOSE: ?? 100 cc Isovue 370 ??injected via ?? left antecubital IV COMPARISON: ?? None FINDINGS: ??VASCULATURE: ??Bolus timing is adequate and no filling defect is seen in the pulmonary arterial tree. ?Systemic arterial structures are partially opacified and reveal no acute abnormality. ?? 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 ??SMA origin widely patent. ??Renal arteries widely patent. MEDIASTINUM/LUISITO: ??Heart size normal. ? No enlarged lymph node. ? Thyroid gland and thoracic inlet unremarkable. LUNGS: ??Mild diffuse bronchial wall thickening and bronchiectasis. ?? Faint scattered bibasilar opacities. ??Trachea and major airways patent. UPPER ABDOMEN: ??Unremarkable. MUSCULOSKELETAL: ??Dcic-zf-wbrbyzex midthoracic disc disease. ?? CHEST WALL: ??Unremarkable. ?? THIS IS AN ELECTRONICALLY VERIFIED FINAL REPORT 10/30/2022 9:18 PM - Electronically signed by ??Gregorio Huang M.D. AR: MIRELA D: ??10/30/2022 9:18 PM T: ??10/30/2022 9:18 PM Report ID: [id number] Reading Location: ??[id number] Procedure Note Gregorio Huang MD - 10/30/2022 EXAM DESCRIPTION: CT ANGIO CHEST W/WO CONTRAST WITH PP (POST PROCESSING) REASON FOR STUDY: Pulmonary embolism (PE) suspected, positive D-dimer TECHNIQUE: CT angiogram of the chest performed with intravenous contrast using helical scanning technique with dynamic intravenous contrast injection. Reconstructed coronal and sagittal MPR images reviewed. All images stored on PACS. 3D MIP images rendered on scanning unit and reviewed at time of interpretation. Automated exposure control was used as a dose optimization technique for this examination. CONTRAST TYPE/DOSE: 100 cc Isovue 370 injected via left antecubital IV COMPARISON: None FINDINGS: VASCULATURE: Bolus timing is adequate and no filling defect is seen in the pulmonary arterial tree. Systemic arterial structures are partially opacified and reveal no acute abnormality. 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 SMA origin widely patent. Renal arteries widely patent. MEDIASTINUM/LUISITO: Heart size normal. No enlarged lymph node. Thyroid gland and thoracic inlet unremarkable. LUNGS: Mild diffuse bronchial wall thickening and bronchiectasis. Faint scattered bibasilar opacities. Trachea and major airways patent. UPPER ABDOMEN: Unremarkable. MUSCULOSKELETAL: Mucs-[id number]-lfpjmqns midthoracic disc disease. CHEST WALL: Unremarkable. THIS IS AN ELECTRONICALLY VERIFIED FINAL REPORT 10/30/2022 9:18 PM - Electronically signed by Gregorio Huang M.D. AR: MIRELA Report ID: [id number] Reading Location: [place] [address] IMPRESSION: 1. No PE. 2. Mild diffuse bronchial wall thickening and faint scattered bibasilar opacities are evidence for bronchitis. No consolidation. Torrey Zuniga MD IMG CT ORDERABLES Fi nal Result * (ABNORMAL) Blood Gas - Arterial (ABG) (10/30/2022 8:21 PM TWISTING MACHINE OPERATOR) O2 STATUS .2L 10/30/2022 8:45 PM TWISTING MACHINE OPERATOR [facility] PH ARTERIAL 7.46(H) 7.35 - 7.45 10/30/2022 8:45 PM TWISTING MACHINE OPERATOR [facility] PC02 (ARTERIAL) 27(L) 35 - 45 mmHg 10/30/2022 8:45 PM TWISTING MACHINE OPERATOR [facility] PO2 (ARTERIAL) 97 75 - 100 mmHg 10/30/2022 8:45 PM TWISTING MACHINE OPERATOR [facility] O2 SAT ART, MEASURED 98 94 - 100 % 10/30/2022 8:45 PM TWISTING MACHINE OPERATOR [facility] BASE ARTERIAL -2.9(L) -2.0 - 2.0 mmol/L 10/30/2022 8:45 PM TWISTING MACHINE OPERATOR [facility] BICARBONATE 18.8(L) 22.0 - 26.0 mmol/L 10/30/2022 8:45 PM TWISTING MACHINE OPERATOR [facility] BOOM'S TEST RESULTS Positive - Left Radial 10/30/2022 8:45 PM TWISTING MACHINE OPERATOR [facility] CARBOXYHEMOGLOBIN 0.4 0.0 - 5.0 % 10/30/2022 8:45 PM TWISTING MACHINE OPERATOR [facility] METHEMOGLOBIN 0.4 0.0 - 1.5 % 10/30/2022 8:45 PM TWISTING MACHINE OPERATOR [facility] ART Blood Gas Arterial Punctur e / Unknown 10/30/2022 8:21 PM TWISTING MACHINE OPERATOR 10/30/2022 8:21 PM TWISTING MACHINE OPERATOR Torrey Zuniga MD CHEMISTRY ORDERABLES Final Result [facility] [address] [place] [address] * PTT (10/30/2022 7:22 PM TWISTING MACHINE OPERATOR) PTT 30 24 - 36 sec 10/30/2022 7:38 PM TWISTING MACHINE OPERATOR [facility] Blood Venipuncture / Unknown 10/30/2022 7:22 PM TWISTING MACHINE OPERATOR 10/30/2022 7:30 PM TWISTING MACHINE OPERATOR Narrative [facility] - 10/30/2022 7:38 PM TWISTING MACHINE OPERATOR Therapeutic range for unfractionated heparin at 0.3-0.7 U/mL is an aPTT value in the range of 71-100 seconds. Critical value for the PTT test is >= 122 seconds. Torrey Zuniga MD HEMATOLOGY ORDERABLE S Final Result [facility] [address] [place] [address] * PT / INR (10/30/2022 7:22 PM TWISTING MACHINE OPERATOR) PROTIME-PATIENT 12.6 11.6 - 14.8 sec 10/30/2022 7:38 PM TWISTING MACHINE OPERATOR [facility] INR 1.0 0.9 - 1.2 10/30/2022 7:38 PM TWISTING MACHINE OPERATOR [facility] Comment: Therapeutic Ranges INR = 2.0-3.0: Venous thromb, atrial fib, pul embolism, tissue heart valve, ami. INR = 2.5-3.5: Mechanical heart valve Critical value for INR is >/= 4.5 Blood Venipuncture / Unknown 10/30/2022 7:22 PM TWISTING MACHINE OPERATOR 10/30/2022 7:30 PM TWISTING MACHINE OPERATOR us Torrey Zuniga MD HEMATOLOGY ORDERABLE S Final Result Performing Organization Address City/[facility]/ZIP Co de Phone Number [facility] [address] [place] [address] * (ABNORMAL) D-Dimer (10/30/2022 7:22 PM TWISTING MACHINE OPERATOR) [facility] D DIMER 1.47(H) <0.50 mcg/mL FEU 10/30/2022 7:40 PM TWISTING MACHINE OPERATOR [facility] Blood Venipuncture / Unknown 10/30/2022 7:22 PM TWISTING MACHINE OPERATOR 10/30/2022 7:30 PM TWISTING MACHINE OPERATOR Narrative [facility] - 10/30/2022 7:40 PM TWISTING MACHINE OPERATOR The FDA has approved this method to exclude the diagnosis of DVT and/or PE at the cutoff value of <0.50 mcg/mL FEU. us Torrey Zuniga MD HEMATOLOGY ORDERABLE S Final Result [facility] [address] [place] [address] * BNP (NT proBNP) (10/30/2022 7:22 PM TWISTING MACHINE OPERATOR) Pathologist [facility] NT PROBNP 43.9 5.0 - 227.0 pg/mL 10/30/2022 8:07 PM TWISTING MACHINE OPERATOR [facility] Comment:NT-proBNP values < 3 00 pg/mL have a 99% negative predictive value for excluding acute congestive heart failure (CHF) in all age groups. In the absence of renal failure, CHF is suggested in adults < 50 years of age with a NT-pro BNP > 450 pg/mL; in adults 50-75 years of age with a NT-proBNP > 900 pg/mL; and in adults > 75 years of age with a NT-proBNP > 1800 pg/mL. For patients with an e-GFR < 60 a NT-proBNP > 1200 pg/mL yields a diagnostic sensitivity and specificity of 89% and 72% for acute CHF. ([facility] data) Blood Venipuncture / Unknown 10/30/2022 7:22 PM TWISTING MACHINE OPERATOR 10/30/2022 7:30 PM TWISTING MACHINE OPERATOR us Torrey Zuniga MD CHEMISTRY ORDERABLES Final Result [facility] [address] [place] [address] * (ABNORMAL) Manual Differential (10/30/2022 7:01 PM TWISTING MACHINE OPERATOR) Pathologist [facility] NEUTROPHILS % 25.0(L) 47.0 - 73.0 % 10/30/2022 7:48 PM TWISTING MACHINE OPERATOR [facility] LYMPHOCYTES % 40.0 18.0 - 42.0 % 10/30/2022 7:48 PM TWISTING MACHINE OPERATOR [facility] MONOCYTES % 8.0 4.0 - 12.0 % 10/30/2022 7:48 PM TWISTING MACHINE OPERATOR [facility] EOSINOPHILS % 25.0(H) 0.0 - 5.0 % 10/30/2022 7:48 PM TWISTING MACHINE OPERATOR [facility] BASOPHILS % 2.0(H) 0.0 - 1.0 % 10/30/2022 7:48 PM TWISTING MACHINE OPERATOR [facility] NEUTROPHILS ABSOLUTE 2.54 1.60 - 7.70 10(3)/mcL 10/30/2022 7:48 PM TWISTING MACHINE OPERATOR [facility] LYMPHOCYTES ABSOLUTE 4.06(H) 1.30 - 3.20 10(3)/[facility] 10/30/2022 7:48 PM TWISTING MACHINE OPERATOR [facility] MONOCYTES ABSOLUTE 0.81 0.20 - 1.00 10(3)/[facility] 10/30/2022 7:48 PM TWISTING MACHINE OPERATOR [facility] EOSINOPHILS ABSOLUTE 2.54(H) 0.00 - 0.40 10(3)/[facility] 10/30/2022 7:48 PM TWISTING MACHINE OPERATOR [facility] BASOPHILS ABSOLUTE 0.20(H) 0.00 - 0.10 10(3)/[facility] 10/30/2022 7:48 PM TWISTING MACHINE OPERATOR [facility] WBC MORPH STATUS Normal 10/30/20 7:48 PM TWISTING MACHINE OPERATOR [facility] RBC MORPH STATUS Normal 10/30/20 7:48 PM TWISTING MACHINE OPERATOR [facility] PLATELET STATUS Normal 7:48 PM TWISTING MACHINE OPERATOR [facility] Blood Venipuncture / Unknown 10/30/2022 7:01 PM TWISTING MACHINE OPERATOR 10/30/2022 7:21 PM TWISTING MACHINE OPERATOR us Torrey Zuniga MD HEMATOLOGY ORDERABLE S Final Result [facility] [address] [place] [address] * CBC with Auto Differential (10/30/2022 7:01 PM TWISTING MACHINE OPERATOR) WBC 10.14 4.00 - 12.00 10(3)/[facility] 10/30/2022 7:48 PM TWISTING MACHINE OPERATOR [facility] RBC 5.08 3.80 - 5.30 10(6)/[facility] 10/30/2022 7:48 PM TWISTING MACHINE OPERATOR [facility] HEMOGLOBIN (HGB) 14.9 12.0 - 15.8 g/dL 10/30/2022 7:48 PM TWISTING MACHINE OPERATOR [facility] HEMATOCRIT (HCT) 46.3 36.0 - 47.0 % 10/30/2022 7:48 PM TWISTING MACHINE OPERATOR [facility] MCV 91.1 82.0 - 96.0 fL 10/30/2022 7:48 PM TWISTING MACHINE OPERATOR [facility] MCH 29.3 26.0 - 34.0 pg 10/30/2022 7:48 PM TWISTING MACHINE OPERATOR [facility] MCHC 32.2 31.0 - 36.0 g/dL 10/30/2022 7:48 PM TWISTING MACHINE OPERATOR [facility] PLATELET COUNT 222 140 - 440 10(3)/mcL 10/30/2022 7:48 PM TWISTING MACHINE OPERATOR [facility] RDW 15.1 11.8 - 15.5 % 10/30/2022 7:48 PM TWISTING MACHINE OPERATOR [facility] MPV 11.2 9.7 - 12.4 fL 10/30/2022 7:48 PM TWISTING MACHINE OPERATOR [facility] NRBC PER 100 WBC 0 10/30/20 7:48 PM TWISTING MACHINE OPERATOR [facility] RESULTS ARE CONSISTENT WITH PERIPHERAL SMEAR REVIEW Yes 10/30/2022 7:48 PM TWISTING MACHINE OPERATOR [facility] POIKILOCYTOSIS 1+ 10/30/2022 7:48 PM TWISTING MACHINE OPERATOR [facility] TARGET Present 10/30/2022 7:48 PM TWISTING MACHINE OPERATOR [facility] OVALOCYTES Present 10/30/2022 7:48 PM TWISTING MACHINE OPERATOR [facility] TEARDROP CELLS Present 10/30/2022 7:48 PM TWISTING MACHINE OPERATOR [facility] LARGE PLATELETS 1+ 7:48 PM TWISTING MACHINE OPERATOR [facility] Blood Venipuncture / Unknown 10/30/2022 7:01 PM TWISTING MACHINE OPERATOR 10/30/2022 7:21 PM TWISTING MACHINE OPERATOR us Torrey Zuniga MD HEMATOLOGY ORDERABLE S Final Result [facility] [address] [place] [address] * Blood Culture - Peripheral #2 (10/30/2022 7:01 PM TWISTING MACHINE OPERATOR) Only the most recent of2 resultswithin the time period is included. CULTURE RESULTS NO GROWTH WITHIN 5 DAYS, FINAL RESULT 11/04/2022 8:01 PM TWISTING MACHINE OPERATOR [facility] Culture BLOOD SPECIMEN / Unknown Venipuncture / Unknown 10/30/2022 7:01 PM TWISTING MACHINE OPERATOR 10/30/2022 7:21 PM TWISTING MACHINE OPERATOR Torrey Zuniga MD MICROBIOLOGY - GENER AL ORDERABLES Final Result [facility] [address] [place] [address], * Troponin I (Trp I) (10/30/2022 7:01 PM TWISTING MACHINE OPERATOR) TROPONIN I <0.300 <=0.300 ng/mL 10/30/2022 7:44 PM TWISTING MACHINE OPERATOR [facility] Blood Venipuncture / Unknown 10/30/2022 7:01 PM TWISTING MACHINE OPERATOR 10/30/2022 7:21 PM TWISTING MACHINE OPERATOR Torrey Zuniga MD CHEMISTRY ORDERABLES Final Result [facility] [address] [place] [address] * (ABNORMAL) Comprehensive Metabolic Panel (CMP) (10/30/2022 7:01 PM TWISTING MACHINE OPERATOR) SODIUM 137 136 - 144 mmol/L 10/30/2022 7:46 PM TWISTING MACHINE OPERATOR [facility] POTASSIUM 3.8 3.5 - 5.1 mmol/L 10/30/2022 7:46 PM TWISTING MACHINE OPERATOR [facility] CHLORIDE 103 100 - 110 mmol/L 10/30/2022 7:46 PM TWISTING MACHINE OPERATOR [facility] CO2, VENOUS 24 22 - 32 mmol/L 10/30/2022 7:46 PM [facility] ANION GAP 13.8 8.0 - 20.0 mmol/L 10/30/2022 7:46 PM [facility] GLUCOSE 91 70 - 99 mg/dL 10/30/2022 7:46 PM [facility] BUN 21 8 - 23 mg/dL 10/30/2022 7:46 PM [facility] CREATININE, BLOOD 0.88 0.60 - 1.10 mg/dL 10/30/2022 7:46 PM [facility] BUN/CREATININE RATIO 24(H) 12 - 20 ratio 10/30/2022 7:46 PM [facility] TOTAL PROTEIN 8.1 6.0 - 8.3 g/dL 10/30/2022 7:46 PM [facility] ALBUMIN 4.2 3.5 - 5.2 g/dL 10/30/2022 7:46 PM [facility] Comment: The colormetric methods used for the determination of Albumin may lead to falsely elevated test results in patients suffering from renal failure or insufficiency due to interference with other proteins. A/G RATIO 1.1 1.0 - 2.0 10/30/2022 7:46 PM [facility] CALCIUM 10.2 8.9 - 10.3 mg/dL 10/30/2022 7:46 PM [facility] T BILI 0.4 <=1.2 mg/dL 10/30/2022 7:46 PM [facility] SGOT (AST) 23 <=32 U/L 10/30/2022 7:46 PM [facility] SGPT (ALT) 15 <=41 U/L 10/30/2022 7:46 PM [facility] ALKALINE PHOSPHATASE 106(H) 35 - 105 U/L 10/30/2022 7:46 PM [facility] GFR, ESTIMATED >60 >=60 10/30/2022 7:46 PM [facility] Comment: Creatinine Clearance is the preferred criteria for selecting drug dose adjustments in renally impaired patients. ??The GFR is provided as additional pertinent clinical information. GFR is reported in mL/min/1.73 sq m. Calculation based on the Chronic Kidney Disease Epidemiology Collaboration (CKD- EPI) equation refit without adjustment for race. GFR, EST. >60 >=60 022 7:46 PM TWISTING MACHINE OPERATOR [facility] GFR, EST. NONAFRICAN >60 >=60 10/30/2022 7:46 PM TWISTING MACHINE OPERATOR [facility] Blood Venipuncture / Unknown 10/30/2022 7:01 PM TWISTING MACHINE OPERATOR 10/30/2022 7:21 PM TWISTING MACHINE OPERATOR Torrey Zuniga MD CHEMISTRY ORDERABLES Final Result Performing Organization Address [facility] Co de Phone Number [facility] [address] [place] [address] * Lactic Acid (Lactate), Serum - Stat (First draw) (10/30/2022 7:01 PM TWISTING MACHINE OPERATOR) Pathologist [facility] LACTIC ACID 1.0 0.5 - 2.0 mmol/L 10/30/2022 7:42 PM TWISTING MACHINE OPERATOR [facility] Comment: Specimen is hemolyzed. In vitro hemolysis could affect results. Clinical correlation advised. Blood Venipuncture / Unknown 10/30/2022 7:01 PM TWISTING MACHINE OPERATOR 10/30/2022 7:21 PM TWISTING MACHINE OPERATOR us Torrey Zuniga MD CHEMISTRY ORDERABLES Final Result Performing Organization Address [facility] Co de Phone Number [facility] [address] [place] [address] * EKG 12 LEAD (10/30/2022 6:46 PM TWISTING MACHINE OPERATOR) Ventricular Rate 92 BPM EXTERNAL EKG Atrial Rate 92 BPM EXTERNAL EKG P-R Interval 182 ms EXTERNAL EKG QRS Duration 66 ms EXTERNAL EKG Q-T Duration 348 ms EXTERNAL EKG QTC CALCULATION 430 ms EXTERNAL EKG P Piffard 77 degrees EXTERNAL EKG R Piffard 37 degrees EXTERNAL EKG T Piffard 57 degrees EXTERNAL EKG 10/30/2022 6:46 PM TWISTING MACHINE OPERATOR Impressions EXTERNAL EKG - 11/01/2022 10:22 AM TWISTING MACHINE OPERATOR Normal sinus rhythm Normal ECG No previous ECGs available Confirmed by Chidi Adamson ([id number]) on 11/01/2022 10:22:52 AM Narrative Procedure Note Chidi Valdivia MD - 11/01/2022 IMPRESSION: Normal sinus rhythm Normal ECG No previous ECGs available Confirmed by Chidi Adamson ([id number]) on 11/01/2022 10:22:52 AM us Torrey Zuniga MD IMG ECG ORDERABLES F inal Result EXTERNAL EKG documented in this encounter Visit Diagnoses Diagnosis COPD with acute exacerbation (HCC)- Primary Obstructive chronic bronchitis with exacerbation Acute bronchitis, unspecified organism documented in this encounter Administered Medications Inactive Administered Medications - up to 3 most recent administrations Medication Order MAR Action Action Date Dose Rate Site dexamethasone (DECADRON) injection 10 mg 10 mg, Intravenous, ONCE, 1 dose, On 10/30/22 at 1930 Given 10/30/2022 7:14 PM TWISTING MACHINE OPERATOR 10 mg iopamidol (ISOVUE-370) 76 % injection 100 mL 100 mL, Intravenous, ONCE, 1 dose, On 10/30/22 at 2130 Given 10/30/2022 8:59 PM TWISTING MACHINE OPERATOR 100 mL ipratropium-albuterol (DUO-NEB) 0.5-2.5 (3) MG/3ML nebulizer solution 3 mL 3 mL, Nebulization, ONCE, 1 dose, On 10/30/22 at 1930 Given 10/30/2022 7:26 PM TWISTING MACHINE OPERATOR 3 mL lactated ringers infusion at 1,000 mL/hr, Intravenous, CONTINUOUS, Starting on 10/30/22 at 2030, Until 10/31/22 at 0047 New Bag 10/30/2022 8:01 PM TWISTING MACHINE OPERATOR 1000 mL/hr documented in this encounter Active and Recently Administered Medications Times are shown in TWISTING MACHINE OPERATOR. Scheduled Medication Order 10/28/2022 10/29/2022 10/30/2022 dexamethasone (DECADRON) injection 10 mg (COMPLETED) 10 mg, Intravenous, ONCE, 1 dose, On 10/30/22 at 1930 1914 (Given - Provid er: Tia Raman, ERICK) iopamidol (ISOVUE-370) 76 % injection 100 mL (COMPLETED) 100 mL, Intravenous, ONCE, 1 dose, On 10/30/22 at 2130 2059 (Given - Provid er: Edwina Reeves, RTR) ipratropium-albuterol (DUO-NEB) 0.5-2.5 (3) MG/3ML nebulizer solution 3 mL (COMPLETED) 3 mL, Nebulization, ONCE, 1 dose, On 10/30/22 at 1930 1926 (Given - Provid er: Melania Barakat, SUPERVISOR ROVING DEPARTMENT) Continuous Medication Order 10/28/2022 10/29/2022 10/30/2022 lactated ringers infusion at 1,000 mL/hr, Intravenous, CONTINUOUS, Starting on 10/30/22 at 2030, Until 10/31/22 at 0047 2000 (New Bag - Prov ider: Tia Raman RN)2105 (Stopped - Provider: Tia Raman RN) documented in this encounter Additional Health Concerns Infection Onset Date Last Indicated Resolved Time COVID - 19 Confirmed 10/30/2022 10/30/2022 022 12:16 AM TWISTING MACHINE OPERATOR COVID - 19 10/30/2022 10/30/2022 11/09/2022 12:1 6 AM TWISTING MACHINE OPERATOR Assessment Noted Time PHQ-9 Depression Total Score: 0 07/14/20 21 8:00 AM CDT documented as of this encounter Care Teams Senior Climate Advisor Relationship Specialty Start Date End Date Torito Gonzalez MD [address] [place] [address] PCP - General Internal Medicine 02/01/20 documented as of this encounter
--- OUTSIDE RECORDS SUMMARY | 2024-11-18 11:34 | XMS_ITS | Encounter Summary ---
Author Organization [facility] Address [address] [place] [address] Phone Care Team Providers Care Veterinary Parasitologist Name Role Phone Torito Gonzalez MD Primary Care Provider [phone] Encounter Details Date Type Department Care Team (Late st Contact Info) Description 10/07/2022 Telephone [facility] - Internal Medicine - [place] [address] [place] [address] Torito Gonzalez MD [address] [place] [address] Social History Tobacco Use Types [...] suspected to have Coronavirus/COVID-19? No / Unsure 10/07/2022 7:47 AM ACCOUNTANT MANAGER documented as of this encounter Miscellaneous Notes * Telephone Encounter - Torito Gonzalez MD - 10/07/2022 1:12 PM ACCOUNTANT MANAGER Brovana rx sent again w ICD UNTANT MANAGER * Telephone Encounter - Dayan Daugherty - 10/07/2022 12:39 PM CST Leonor with [facility] in [place] called to have a script resent Medication - Brovana - Nebulizer solution with ICD - 10 codes Phone - [phone] Fax - [phone] Pharmacy - [facility] [place] UNTANT MANAGER documented in this encounter Plan of Treatment Upcoming Encounters Date Type Department Care Team (Late st Contact Info) Description 11/19/2024 8:00 AM ACCOUNTANT MANAGER Office Visit [facility] - Internal Medicine [facility] [address] [place] [address] Torito Gonzalez MD [address] [place] [address] documented as of this encounter Visit Diagnoses Not on filedocumented in this encounter Additional Health Concerns Assessment Noted Time PHQ-9 Depression Total Score: 0 07/14/20 21 8:00 AM CDT documented as of this encounter Care Teams Veterinary Parasitologist Relationship Specialty Start Date End Date Torito Gonzalez MD [address] [place] [address] PCP - General Internal Medicine 02/01/20 documented as of this encounter
--- OUTSIDE RECORDS SUMMARY | 2024-11-18 11:34 | XMS_ITS | Encounter Summary ---
Author Organization [facility] Care Team Providers Care Documentation Consultant Name Role Phone Torito Gonzalez MD Primary Care Provider [phone] Encounter Details Date Type Department Care Team (Latest Contact Info) Description 11/04/2022 Travel Social History Tobacco Use Types Packs/Day [...] Coronavirus/COVID-19? No / Unsure 11/04/2022 8:27 AM DIRECTOR PERIOPERATIVE documented as of this encounter Functional Status * Question Answer Date of Assessment Author Little interest or pleasure in doing things Not at all 11/04/2022 8:00 AM Sol Yan RMA Feeling down, depressed, or hopeless Not at all 11/04/2022 8:00 AM Sol Yan RMA * Over the past 2 weeks, how often have you been bothered by any of the following problems? Question Answer Date of Assessment Author Patient Health Questionnaire -2 Score 0 11/04/2022 8:00 AM Sol Yan RMA documented as of this encounter Plan of Treatment Upcoming Encounters Date Type Department Care Team (Late st Contact Info) Description 11/19/2024 8:00 AM DIRECTOR PERIOPERATIVE Office Visit [facility] - Internal Medicine - [place] [address] [place] [address] Torito Gonzalez MD [address] [place] [address] documented as of this encounter Visit Diagnoses Not on filedocumented in this encounter Additional Health Concerns Infection Onset Date Last Indicated Resolved Time COVID - 19 Confirmed 10/30/2022 10/30/2022 022 12:16 AM DIRECTOR PERIOPERATIVE COVID - 19 10/30/2022 10/30/2022 11/09/2022 12:1 6 AM DIRECTOR PERIOPERATIVE Assessment Noted Time PHQ-9 Depression Total Score: 0 07/14/20 21 8:00 AM CDT documented as of this encounter Care Teams Documentation Consultant Relationship Specialty Start Date End Date Torito Gonzalez MD [address] [place] [address] PCP - General Internal Medicine 02/01/20 documented as of this encounter
--- OUTSIDE RECORDS SUMMARY | 2024-11-18 11:34 | XMS_ITS | Encounter Summary ---
Author Organization [facility] Address [address] [place] [address] Phone Care Team Providers Care Crop Supervisor Name Role Phone Torito Gonzalez MD Primary Care Provider [phone] Guille Collier MD Unavailable Reason for Referral * Radiology Services (Routine) - Closed Specialty Diagnoses / Procedures Referred By Turner ramirez Referred To Contact Radiology Diagnoses Chronic maxillary sinusitis Procedures CT SINUSES W/O CONTRAST Guille Collier MD [address] [place] [address] Phone: tel: fax: Referral ID Status Reason Start Date Expiration Date Visits Re quested Visits Authorized Closed 12/06/2022 1 1 OF VISUAL MERCHANDISING Reason for Visit * Radiology Services (Routine) - Closed Specialty Diagnoses / Procedures Referred By Turner ramirez Referred To Contact Radiology Diagnoses Chronic maxillary sinusitis Procedures CT SINUSES W/O CONTRAST Guille Collier MD [address] [place] [address] Phone: tel: fax: Referral ID Status Reason Start Date Expiration Date Visits Re quested Visits Authorized [id number] Closed 12/06/2022 1 1 Encounter Details Date Type Department Care Team (Latest Contact Info) Description 12/10/2022 1:35 PM HEAD OF VISUAL MERCHANDISING - 12/10/2022 11:59 PM HEAD OF VISUAL MERCHANDISING Hospital Encounter [facility] [address] [place] [address] Guille Collier MD [address] [facility] [place] [id number] Discharge Disposition: Discharged to home or Selfcare [...] Coronavirus/COVID-19? No / Unsure 12/10/2022 11:59 AM HEAD OF VISUAL MERCHANDISING documented as of this encounter Medications at Time of Discharge albuterol 108 (90 Base) MCG/ACT Aerosol Solution take 1-2 Puffs by inhalation every 6 hours as needed for Wheezing. 18 g 2 06/21/2022 amLODIPine (NORVASC) 5 MG Tablet Take 5 mg by mouth daily. aspirin 81 MG Chewable Tablet Baby Aspirin 81 mg chewable tablet Chew 1 tablet every day by oral route. Calcium Carbonate (CALCIUM 500 PO) Take by mouth. famotidine (PEPCID) 20 MG Tablet Take 1 [...] as directed 30 mL 3 10/07/2022 3 benzonatate (TESSALON) 100 MG Capsule Take 100 mg by mouth 3 times daily as needed. 3 budesonide (PULMICORT) 0.5 MG/2ML Suspension 0.5 mg by Nebulization route 2 times daily. 3 Cholecalciferol (VITAMIN D-3 PO) Take by mouth. 04/29 3 fluticasone (FLONASE) 50 MCG/ACT Suspension 1 [place] by Nasal route 2 times daily. Use in each nostril as directed. 16 g 5 12/16/2021 3 Fluticasone-Salm eterol (ADVAIR DISKUS IN) take by inhalation. 3 ipratropium-albu terol (DUO-NEB) 0.5-2.5 (3) MG/3ML Solution 3 mL by Nebulization route 4 times daily for 180 days. DX- COPD J44.9 360 mL 5 06/21/2022 3 Loratadine 10 MG Capsule Take by mouth. 3 methylPREDNISolo ne (MEDROL DOSPACK) 4 MG Tablet Therapy Pack See product package insert for dosing schedule 21 Tablet 10/30/2022 3 Misc. Devices Misc Nebulizer machine with accessories - 1 DX- COPD J44.9 Use as directed to inhale Duoneb q6hrs 1 Each 06/21/2022 3 rOPINIRole (REQUIP) 0.25 MG Tablet Take 4 Tablets by mouth nightly. 90 Tablet 3 12/06/2022 3 documented as of this encounter Plan of Treatment Upcoming Encounters Date Type Department Care Team (Late st Contact Info) Description 11/19/2024 8:00 AM HEAD OF VISUAL MERCHANDISING Office Visit [facility] - Internal Medicine - [place] [address] [place] [address] Troito Gonzalez MD [address] [place] [address] documented as of this encounter Procedures Procedure Name Priority Date/Time Associated Diagnosis Comments CT SINUSES W/O CONTRAST Routine 12/10/2022 1:53 PM HEAD OF VISUAL MERCHANDISING Chronic maxillary sinusitis documented in this encounter Results * CT SINUSES W/O CONTRAST (12/10/2022 1:53 PM HEAD OF VISUAL MERCHANDISING) Anatomical Region Laterality Modality Head N/A Computed Tomogra phy 12/12/2022 12:2 4 PM HEAD OF VISUAL MERCHANDISING Impressions 12/12/2022 12:27 PM HEAD OF VISUAL MERCHANDISING IMPRESSION: ?? Interval progression with near complete opacification of the sinuses with evidence of a sinha sinusitis. Narrative 12/12/2022 12:27 PM HEAD OF VISUAL MERCHANDISING EXAM DESCRIPTION: ?? CT SINUSES W/O CONTRAST REASON FOR STUDY: ?? Chronic maxillary sinusitis , follow-up. TECHNIQUE: Noncontrast scanning through the paranasal sinuses using bone algorithm. ??Reconstructed MPR images reviewed. All images stored on PACS. ??Automated exposure control was used as a dose optimization technique for this examination. COMPARISON: ?? 02/20/2022. FINDINGS: MAXILLARY SINUSES: ??Interval progression with near complete opacification of the maxillary sinuses including the maxillary sinus ostia. ?? ETHMOID AND FRONTAL SINUSES: ?? Interval progression with complete opacification of the ethmoid air cells and the frontal sinus outflow tracks. ??The frontal sinuses are nearly completely opacified. ?? There is high density in the frontal sinuses which suggests either fungal colonization or inspissation of secretions. SPHENOID SINUS: ?? The sphenoid sinuses are nearly completely opacified. ?? NASAL CAVITY: ?? Slight rightward nasal septal deviation. ORBITS: ?? The orbits are unremarkable. ??There is evidence of bilateral cataract procedure. TMJS: ?? Normal. MASTOIDS: ?? Mastoid air cells are predominantly clear. BRAIN: ?? No significant abnormality within the included brain parenchyma. OTHER: ?? No other significant finding. THIS IS AN ELECTRONICALLY VERIFIED FINAL REPORT 12/12/2022 12:24 PM - Electronically signed by ??Jeremy Quiroz M.D. CH: D: ??12/12/2022 12:24 PM T: ??12/12/2022 12:24 PM Report ID: [id number] Reading Location: ??[id number] Procedure Note Jeremy Quiroz Jr., MD - 12/12/2022 EXAM DESCRIPTION: CT SINUSES W/O CONTRAST REASON FOR STUDY: Chronic maxillary sinusitis , follow-up. TECHNIQUE: Noncontrast scanning through the paranasal sinuses using bone algorithm. Reconstructed MPR images reviewed. All images stored on PACS. Automated exposure control was used as a dose optimization technique for this examination. COMPARISON: 02/20/2022. FINDINGS: MAXILLARY SINUSES: Interval progression with near complete opacification of the maxillary sinuses including the maxillary sinus ostia. ETHMOID AND FRONTAL SINUSES: Interval progression with complete opacification of the ethmoid air cells and the frontal sinus outflow tracks. The frontal sinuses are nearly completely opacified. There is high density in the frontal sinuses which suggests either fungal colonization or inspissation of secretions. SPHENOID SINUS: The sphenoid sinuses are nearly completely opacified. NASAL CAVITY: Slight rightward nasal septal deviation. ORBITS: The orbits are unremarkable. There is evidence of bilateral cataract procedure. TMJS: Normal. MASTOIDS: Mastoid air cells are predominantly clear. BRAIN: No significant abnormality within the included brain parenchyma. OTHER: No other significant finding. THIS IS AN ELECTRONICALLY VERIFIED FINAL REPORT 12/12/2022 12:24 PM - Electronically signed by Jeremy Quiroz M.D. CH: Report ID: [id number] Reading Location: [id number] IMPRESSION: Interval progression with near complete opacification of the sinuses with evidence of a sinha sinusitis. Guille Collier MD IMG CT ORDERABLES Final Result documented in this encounter Visit Diagnoses Diagnosis Chronic maxillary sinusitis documented in this encounter Additional Health Concerns Assessment Noted Time PHQ-9 Depression Total Score: 0 07/14/20 21 8:00 AM CDT documented as of this encounter Care Teams Crop Supervisor Relationship Specialty Start Date End Date Torito Gonzalez MD [address] [place] [address] PCP - General Internal Medicine 02/01/20 Guille Collier MD [address] [place] [address] Consulting Physician Pulmonary Disease 12/06/22 documented as of this encounter
--- OUTSIDE RECORDS SUMMARY | 2024-11-18 11:34 | XMS_ITS | Encounter Summary ---
Author Organization [facility] Address [address] [place] [address] Phone Care Team Providers Care Cooker Meal Name Role Phone Torito Gonzalez MD Primary Care Provider [phone] Guille Collier MD Unavailable Reason for Referral * Other (Routine) - Closed Specialty Diagnoses / Procedures Referred By Turner ramirez Referred To Contact Pulmonology Diagnoses Centrilobular emphysema (HCC) Procedures COMPLETE PFT W + W/O BRONCHODILATOR Guille Collier MD [address] [place] [address] Phone: tel: fax: Referral ID Status Reason Start Date Expiration Date Visits Re quested Visits Authorized [id number] Closed 12/06/2022 1 1 OR PUBLICATIONS SPECIALIST Reason for Visit * Other (Routine) - Closed Specialty Diagnoses / Procedures Referred By Turner ramirez Referred To Contact Pulmonology Diagnoses Centrilobular emphysema (HCC) Procedures COMPLETE PFT W + W/O BRONCHODILATOR Guille Collier MD [address] [place] [address] Phone: tel: fax: Referral ID Status Reason Start Date Expiration Date Visits Re quested Visits Authorized [id number] Closed 12/06/2022 1 1 Encounter Details Date Type Department Care Team (Latest Contact Info) Description 12/10/2022 12:49 PM SENIOR PUBLICATIONS SPECIALIST - 12/10/2022 1:34 PM SENIOR PUBLICATIONS SPECIALIST Hospital Encounter [facility] Respiratory Therapy [facility] [phone] Guille Collier MD [address] [place] [address] Discharge Disposition: Discharged to home or Selfcare [...] Coronavirus/COVID-19? No / Unsure 12/10/2022 11:59 AM SENIOR PUBLICATIONS SPECIALIST documented as of this encounter Medications at [...] 3 fluticasone (FLONASE) 50 MCG/ACT Suspension 1 [place] by Nasal route 2 times daily. Use [...] 12/06/2022 3 documented as of this encounter Procedure Notes * Guille Collier MD - 12/10/2022 1:34 PM CST PULMONARY FUNCTION TEST Admit: 12/10/2022 CSN: [id number] Dictating Provider: [id number] Guille Collier MD DATE OF STUDY: 12/10/2022 FVC is 62% predicted. FEV1 is 39% predicted. FEV1/FVC ratio is 49. There is significant improvement in the flow rates after bronchodilator. Total lung capacity is 103% predicted. There is evidence of hyperinflation and air trapping. Upper airways resistance is increased. Diffusion capacity is minimally reduced. Good patient effort was seen. Flow volume loop is consistent with spirometry. No previous studies to compare. INTERPRETATION: Severe airways obstruction. No evidence of airways restriction. Diffusion capacity is minimally reduced. A significant improvement in the flow rates suggests a reversible airways disease, i.e. asthma. Clinical correlation is indicated. NA/MODL /[id number] OR PUBLICATIONS SPECIALIST documented in this encounter Plan of Treatment Upcoming Encounters Date Type Department Care Team (Late st Contact Info) Description 11/19/2024 8:00 AM SENIOR PUBLICATIONS SPECIALIST Office Visit [facility] - Internal Medicine - [place] [address] [place] [address] Torito Gonzalez MD [address] [place] [address] documented as of this encounter Procedures Procedure Name Priority Date/Time Associated Diagnosis Comments COMPLETE PFT W + W/O BRONCHODILATOR Routine 12/10/2022 Centrilobular emphysema (HCC) documented in this encounter Results * Complete PFT W + W/O Bronchodilator (12/10/2022) FVC 1.82 L FVC %Predicted 62 % FVC Post-Bronchodila tor 1.97 (L) FEV1 0.89 L FEV1 %Predicted 39 % FEV1 Post-Bronchodila tor 1.03 (L) FEV1/FVC 49 % FEF 25-75% 14 L/sec TLC 5.33 L TLC %Predicted 103 (Pleth) (L) RV 3.51 L RV %Predicted 158 ([place]th) (L) Airway Resistance 5.10 cmH2O/L/s DLCO 14.71 ml/min/mmH g DLCO %Predicted 67 (ml/min/mm Hg) Guille Collier MD PFT ORDERABLES Final Result documented in this encounter Visit Diagnoses Diagnosis Centrilobular emphysema (HCC) Other emphysema documented in this encounter Additional Health Concerns Assessment Noted Time PHQ-9 Depression Total Score: 0 07/14/20 21 8:00 AM CDT documented as of this encounter Care Teams Cooker Meal Relationship Specialty Start Date End Date Torito Gonzalez MD [address] [place] [address] PCP - General Internal Medicine 02/01/20 Guille Collier MD [address] [place] [address] Consulting Physician Pulmonary Disease 12/06/22 documented as of this encounter
--- OUTSIDE RECORDS SUMMARY | 2024-11-18 11:34 | XMS_ITS | Encounter Summary ---
Author Organization [facility] Address [address] [place] [address] Phone Care Team Providers Care Violent Crimes Detective Name Role Phone Torito Gonzalez MD Primary Care Provider [phone] Guille Collier MD Unavailable Reason for Visit * Reason Comments COPD 3 mo f/u Medication Refill Surgical Follow-up Had nasal surgery Encounter Details Date Type Department Care Team (Late st Contact Info) Description 01/13/2023 8:15 AM HEEL SEAT POUNDER Office [facility] - Internal Medicine - [place] [address] [place] [address] Torito Gonzalez MD [address] [facility] [place] [address] Essential (primary) hypertension (Primary Dx); Abnormal weight loss; Centrilobular emphysema (HCC) Discharge Disposition: Discharged to home or Selfcare Social History Tobacco Use Types Packs/Day Years Used Date Smoking Tobacco: Former Cigarettes Q uit: 12/07/2009 Smokeless Tobacco: Never Tobacco Cessation:Counseling Given: Not [...] Coronavirus/COVID-19? No / Unsure 01/13/2023 7:58 AM HEEL SEAT POUNDER documented as of this encounter Last Filed Vital Signs Vital Sign Reading Time Taken Comments Blood Pressure 110/68 01/13/2023 8:04 AM HEEL SEAT POUNDER Pulse 92 01/13/2023 8:04 AM HEEL SEAT POUNDER Temperature 36.7 ??C (98 ??F) 01/13/2023 8:04 AM HEEL SEAT POUNDER Respiratory Rate - - Oxygen Saturation 93% 01/13/2023 8:04 AM HEEL SEAT POUNDER Inhaled Oxygen Concentration - - Weight 56.7 kg (125 lb) 01/13/2023 8:04 AM HEEL SEAT POUNDER Height 165.1 cm (5' 5 ) 01/13/2023 8:04 AM HEEL SEAT POUNDER Body Mass Index 20.8 01/13/2023 8:04 AM HEEL SEAT POUNDER documented in this encounter Functional Status * Question Answer Date of Assessment Author Little interest or pleasure in doing things Not at all 01/13/2023 8:00 AM HEEL SEAT POUNDER Francisca Terrazas CMA Feeling down, depressed, or hopeless Not at all 01/13/2023 8:00 AM HEEL SEAT POUNDER Francisca Terrazas CMA * Over the past 2 weeks, how often have you been bothered by any of the following problems? Question Answer Date of Assessment Author Patient Health Questionnaire -2 Score 0 01/13/2023 8:00 AM HEEL SEAT POUNDER Francisca Terrazas CMA documented as of this encounter Progress Notes * Francisca Terrazas CMA - 01/13/2023 8:15 AM CST Gabbie Lu Aries, 67 y.o., female is here for COPD (3 mo f/u) and Medication Refill Medication Refills: Patient reports/denies need for medication refills. Orders Pended: yes Requested Prescriptions Pending Prescriptions Disp Refills ??? ipratropium-albuterol (DUO-NEB) 0.5-2.5 (3) MG/3ML Solution 360 mL Home Medications Medication Sig Start Date End [...] route 2 times daily. DX- COPD J44.9 Patient not taking: Reported on 01/13/2023 10/07/22 Torito Gonzalez MD aspirin 81 MG Chewable Tablet Baby Aspirin 81 mg chewable tablet Chew 1 tablet every day by oral route. Yes Christie Lancaster MD benzonatate (TESSALON) 100 MG Capsule Take 100 mg by mouth 3 times daily as needed. Patient not taking: Reported on 01/13/2023 Christie Lancaster MD budesonide (PULMICORT) 0.5 MG/2ML [...] MD fluticasone (FLONASE) 50 MCG/ACT Suspension 1 [place] by Nasal route 2 times daily. Use in each nostril as directed. 12/16/21 Yes Torito Gonzalez MD Fluticasone-Salmeterol (ADVAIR DISKUS IN) take by inhalation. Patient not taking: Reported on 01/13/2023 Christie Lancaster MD fluticasone-salmeterol (ADVAIR) 250-50 MCG/ACT AEROSOL POWDER, BREATH ACTIVATED Advair Diskus 250 mcg-50 mcg/dose powder for inhalation INHALE 1 DOSE BY MOUTH EVERY 12 HOURS Yes Christie Lancaster MD HYDROcodone-acetaminophen (NORCO) 7.5-325 MG Tablet 01/04/23 Yes Christie Lancaster MD ipratropium-albuterol (DUO-NEB) 0.5-2.5 (3) MG/3ML Solution USE 3 ML IN NEBULIZER 4 TIMES DAILY [id number] DAYS 12/23/22 Yes ProviderChristie MD Loratadine 10 MG Capsule Take by mouth. Patient not taking: Reported on 01/13/2023 ProviderChristie MD Misc. Devices [facility] Nebulizer machine with accessories - 1 DX- COPD J44.9 Use as directed to inhale Duoneb q6hrs 06/21/22 Yes Torito Gonzalez MD rOPINIRole (REQUIP) 0.25 MG Tablet Take 4 Tablets by mouth nightly. 12/06/22 Guille Collier MD Medications Discontinued During This Encounter Medication Reason ??? azelastine (ASTELIN) 0.1 % Solution Med List Clean Up ??? methylPREDNISolone (MEDROL DOSPACK) 4 MG Tablet Therapy Pack Med List Clean Up I have reviewed the home medication list with the patient and have reconciled discrepancies. The list is accurate to the best of my knowledge. Smoking Status: Social History Tobacco Use ??? Smoking status: Former Types: Cigarettes Quit date: 12/07/2009 Years since quittin.1 ??? Smokeless tobacco: Never Vaping Use ??? [...] with the patient today: Smoking and Depression SEAT POUNDER * Torito Gonzalez MD - 01/13/2023 8:15 AM CST PROGRESS NOTE [facility] [place] [address] PHONE: [phone] FAX: [phone] 01/13/2023 NAME: Gabbie Chris, : 1955, Assessment ASSESSMENT & PLAN: Return in about 4 weeks (around 02/10/2023) for weight loss. Diagnoses and all orders for this visit: Essential (primary) hypertension Comments: Controlled. Continue current medication Abnormal weight loss Comments: Check TFT. Meanwhile start mirtazapine Orders: - THYROXINE (T4) FREE; Future - THYROID STIMULATING HORMONE (TSH); Future - THYROXINE (T4) FREE - THYROID STIMULATING HORMONE (TSH) Centrilobular emphysema (HCC) Comments: Stable. Continue current medication Other orders - fluticasone-salmeterol (ADVAIR) 250-50 MCG/ACT AEROSOL POWDER, BREATH ACTIVATED; Advair Diskus 250 mcg-50 mcg/dose powder for inhalation INHALE 1 DOSE BY MOUTH EVERY 12 HOURS - Denosumab (PROLIA) 60 MG/ML Solution Prefilled Syringe; 60 mg by Subcutaneous route. - HYDROcodone-acetaminophen (NORCO) 7.5-325 MG Tablet - Discontinue: ipratropium-albuterol (DUO-NEB) 0.5-2.5 (3) MG/3ML Solution; USE 3 ML IN NEBULIZER 4TIMES DAILY FOR 180 DAYS - ipratropium-albuterol (DUO-NEB) 0.5-2.5 (3) MG/3ML Solution; 3 mL by Nebulization route 4 times daily. DX J44.9 COPD - mirtazapine (REMERON) 15 MG Tablet; 1/2 tab po at bedtime for 2 weeks then 1 at bedtime - Benzonatate 200 MG Capsule; Take 1 Capsule by mouth 3 times daily as needed for Cough for up to 14 days. Follow-up in 1 month, sooner if needed Chief Complaint Patient presents with ??? COPD 3 mo f/u ??? Medication Refill ??? Surgical Follow-up Had nasal surgery HPI Patient is here for follow-up for hypertension other medical problems. Blood pressure remains less than 140/90. Recently had repeat sinus surgery because of recurrence of nasal polyps. Continue to have off and on wheezing along with coughing spell. Also has poor appetite. Has been losing weight. Recent sleep study reveal presence of RLS. Has been prescribed ropinirole but has not started yet. Patient denies any nausea vomiting. No abdominal pain. Had colonoscopy in March 2022 which was unremarkable ROS Review of systems was negative, except as documented in HPI PHYSICAL EXAM VITALS: Wt Readings from Last 3 Encounters: 01/13/23 125 lb (56.7 kg) 12/06/22 132 lb 3.2 oz (60 kg) 11/04/22 133 lb 14.4 oz (60.7 kg) Temp Readings from Last 3 Encounters: 01/13/23 98 ??F (36.7 ??C) (Temporal) 12/06/22 97.8 ??F (36.6 ??C) 11/04/22 98.5 ??F (36.9 ??C) (Temporal) BP Readings from Last 3 Encounters: 01/13/23 110/68 12/06/22 128/70 11/04/22 114/78 Pulse Readings from Last 3 Encounters: 01/13/23 92 12/06/22 73 11/04/22 63 Physical Exam Vitals and nursing note reviewed. Constitutional: Appearance: Normal appearance. HENT: Head: Normocephalic. Eyes: Extraocular Movements: Extraocular movements intact. Conjunctiva/sclera: Conjunctivae normal. Pupils: Pupils are equal, round, and reactive to light. Cardiovascular: Rate and Rhythm: Normal rate and regular rhythm. Pulses: Normal pulses. Heart sounds: Normal heart sounds. Pulmonary: Effort: Pulmonary effort is normal. Comments: Decreased air entry both lungs. Occasional expiratory wheezing. No rales. Abdominal: General: Abdomen is flat. Bowel [...] ??? aspirin 81 MG Chewable Tablet ??? Benzonatate 200 MG Capsule ??? budesonide (PULMICORT) 0.5 MG/2ML Suspension ??? Calcium Carbonate (CALCIUM 500 PO) ??? Cholecalciferol (VITAMIN D-3 PO) ??? Denosumab (PROLIA) 60 MG/ML Solution Prefilled Syringe ??? famotidine (PEPCID) 20 MG Tablet ??? fluticasone (FLONASE) 50 MCG/ACT Suspension ??? fluticasone-salmeterol (ADVAIR) 250-50 MCG/ACT AEROSOL POWDER, BREATH ACTIVATED ??? HYDROcodone-acetaminophen (NORCO) 7.5-325 MG Tablet ??? ipratropium-albuterol (DUO-NEB) 0.5-2.5 (3) MG/3ML Solution ??? mirtazapine (REMERON) 15 MG Tablet ??? Misc. Devices Misc ??? rOPINIRole (REQUIP) 0.25 MG Tablet I educated Gabbie regarding diagnoses and plan of care. She verbalizes understanding and will call the office if situation changes. Voice recognition software was utilized in this dictation. Despite proof reading, typographical errors and/or content errors may have occurred. By: Torito Gonzalez MD 01/13/2023 8:28 AM HEEL SEAT POUNDER SEAT POUNDER * Francisca Terrazas CMA - 01/13/2023 8:15 AM CST Gabbie presents for lab draw per order of Dr. Torito Gonzalez dated 01/13/2023. Specimen collectedfrom right antecubital without incident. SEAT POUNDER documented in this encounter Plan of Treatment Upcoming Encounters Date Type Department Care Team (Late st Contact Info) Description 11/19/2024 8:00 AM HEEL SEAT POUNDER Office Visit [facility] - Internal Medicine [facility] [address] [place] [address] Torito Gonzalez MD [address] [place] [address] documented as of this encounter Procedures Procedure Name Priority Date/Time Associated Diagnosis Comments THYROXINE (T4) FREE Routine 01/13/2023 8 :33 AM HEEL SEAT POUNDER Abnormal weight loss THYROID STIMULATING HORMONE (TSH) Routine 01/13/2023 8:33 AM HEEL SEAT POUNDER Abnormal weight loss documented in this encounter Results * THYROID STIMULATING HORMONE (TSH) (01/13/2023 8:33 AM HEEL SEAT POUNDER) TSH 1.120 0.270 - 4.200 mIU/L 01/13/2023 3:39 PM HEEL SEAT POUNDER [facility] Blood Venipuncture / Unknown 01/13/2023 8:33 AM HEEL SEAT POUNDER 01/13/2023 8:33 AM HEEL SEAT POUNDER Torito Gonzalez MD CHEMISTRY ORDERABLES Final Result Performing Organization Address [facility]/ZIP Co de Phone Number [facility] [address] [place] [address] * THYROXINE (T4) FREE (01/13/2023 8:33 AM HEEL SEAT POUNDER) T4 FREE 1.2 0.9 - 1.7 ng/dL 01/13/2023 3:39 PM HEEL SEAT POUNDER [facility] Blood Venipuncture / Unknown 01/13/2023 8:33 AM HEEL SEAT POUNDER 01/13/2023 8:33 AM HEEL SEAT POUNDER us Torito Gonzalez MD CHEMISTRY ORDERABLES Final Result Performing Organization Address City/[facility]/ZIP Co de Phone Number [facility] [address] [place] [address] documented in this encounter Visit Diagnoses Diagnosis Essential (primary) hypertension- Primary Unspecified essential hypertension Abnormal weight loss Loss of weight Centrilobular emphysema (HCC) Other emphysema documented in this encounter Additional Health Concerns Assessment Noted Time PHQ-9 Depression Total Score: 0 07/14/20 21 8:00 AM CDT documented as of this encounter Care Teams Violent Crimes Detective Relationship Specialty Start Date End Date Torito Gonzalez MD [address] [place] [address] PCP - General Internal Medicine 02/01/20 Guille Collier MD [address] [place] [address] Consulting Physician Pulmonary Disease 12/06/22 documented as of this encounter
--- OUTSIDE RECORDS SUMMARY | 2024-11-18 11:34 | XMS_ITS | Encounter Summary ---
Author Organization [facility] Address [address] [place] [address] Phone Care Team Providers Care Product Marketer Name Role Phone Torito Gonzalez MD Primary Care Provider [phone] Guille Collier MD Unavailable Reason for Referral * Radiology Services (Routine) - Closed Specialty Diagnoses / Procedures Referred By Contac t Referred To Contact Radiology Diagnoses Centrilobular emphysema (HCC) Procedures XR CHEST 2 VIEWS Guille Collier MD [address] [place] [address] Phone: tel: fax: Referral ID Status Reason Start Date Expiration Date Visits Re quested Visits Authorized [id number] Closed 12/06/2022 1 1 ITION PARTNER * Radiology Services (Routine) - Closed Specialty Diagnoses / Procedures Referred By Contconcepcion t Referred To Contact Radiology Diagnoses Chronic maxillary sinusitis Procedures CT SINUSES W/O CONTRAST Guille Collier MD [address] [place] [address] Phone: tel: fax: Referral ID Status Reason Start Date Expiration Date Visits Re quested Visits Authorized [id number] Closed 12/06/2022 1 1 ITION PARTNER * Other (Routine) - Closed Specialty Diagnoses / Procedures Referred By Contac t Referred To Contact Pulmonology Diagnoses Centrilobular emphysema (HCC) Procedures COMPLETE PFT W + W/O BRONCHODILATOR Guille Collier MD [address] [place] [address] Phone: tel: fax: Referral ID Status Reason Start Date Expiration Date Visits Re quested Visits Authorized [id number] Closed 12/06/2022 1 1 ITION PARTNER Reason for Visit * Reason Comments New Patient Referral from Dr Mariana hernandez for emphysema Sleep Apnea * Consult, Test & Initiate Treatment (Routine) - Closed Specialty Diagnoses / Procedures Referred By Turner ramirez Referred To Contact Pulmonology Diagnoses Centrilobular emphysema (HCC) Torito Gonzalez MD [address] [place] [address] Phone: tel: fax: [facility] [address] [place] [address] Phone: tel: fax: Referral ID Status Reason Start Date Expiration Date Visits Re quested Visits Authorized [id number] Closed 10/07/2022 1 1 Encounter Details Date Type Department Care Team (Late st Contact Info) Description 12/06/2022 11:15 AM NUTRITION PARTNER Office Visit [facility] [address] [place] [address] Guille Collier MD [address] [place] [address] TOOTIE (obstructive sleep apnea) (Primary Dx); Centrilobular emphysema (HCC); Hyperlipidemia, unspecified hyperlipidemia type; Essential (primary) hypertension; Restless legs syndrome (RLS); Chronic maxillary sinusitis Discharge Disposition: Discharged to home or Selfcare [...] suspected to have Coronavirus/COVID-19? No / Unsure 12/06/2022 10:34 AM NUTRITION PARTNER documented as of this encounter Last Filed Vital Signs Vital Sign Reading Time Taken Comments Blood Pressure 128/70 12/06/2022 11:32 AM NUTRITION PARTNER Pulse 73 12/06/2022 11:32 AM NUTRITION PARTNER Temperature 36.6 ??C (97.8 ??F) 12/06/2022 11:[address] Respiratory Rate 16 12/06/2022 11:32 AM NUTRITION PARTNER Oxygen Saturation 94% 12/06/2022 11:32 AM NUTRITION PARTNER Inhaled Oxygen Concentration - - Weight 60 kg (132 lb 3.2 oz) 12/06/2022 11:32 AM NUTRITION PARTNER Height 165.1 cm (5' 5 ) 12/06/2022 11:32 AM NUTRITION PARTNER Body Mass Index 22 12/06/2022 11:32 AM NUTRITION PARTNER documented in this encounter Progress Notes * Guille Collier MD - 12/06/2022 11:15 AM CST Images from the original note were not included. Progress Note Subjective: HPI: Gabbie Chris is a 67 y.o. female with referred for COPD Quit tobacco 15 years ago. Smoked about 1/2 PPD Worked at [employer]. Has a cough mainly dry Has SOB and CRISOSTOMO Takes Advair. Sleep study done in September 2022 showed AHI of 5.1 lowest O2 sat was 87% Patient was also found to have restless legs Chest CT done in October 2022 showed mild diffuse bronchial wall thickening no consolidation Was using Proformist and budesonide Had sinus surgery in May 2022 + COVID in 07/2022 Has PND Had FLU A in 10/2022 +GERD Problem List: Patient Active Problem List Diagnosis Date Noted ??? TOOTIE (obstructive sleep apnea) 12/06/2022 ??? Restless legs syndrome (RLS) 12/06/2022 ??? Centrilobular emphysema (HCC) 10/07/2022 ??? Allergic rhinitis 10/07/2022 ??? Essential (primary) hypertension 10/02/2013 ??? Hyperlipidemia 10/02/2013 Past Medical History: has a past medical history of Hypertension and Influenza A (11/23/2022). Past Surgical History: has a past surgical history that includes Colonoscopy (01/04/2011). Family History: family history includes Cancer in her father; Hypertension in her father. Social History: reports that she quit smoking about 13 years ago. Her smoking use included cigarettes. She has never used smokeless tobacco. She reports that she does not currently use alcohol. She reports that she does not use drugs. Allergies: Allergies Description Type Start Date End Date Comment Verified General Surgeon Amoxicillin Allergy 14-Jan-2022 Reactions: Nausea Francisca Terrazas, WOOD FILLER Levofloxacin Intolerance 16-Sep-2022 Reactions: Palpitations Torito Gonzalez MD (Internal Medicine) Medication List: Current Outpatient Medications Medication Sig Dispense Refill [...] daily. Use in each nostril as directed (Patient not taking: Reported on 12/06/2022) 30 mL 3 ??? benzonatate (TESSALON) 100 MG Capsule Take 100 mg by mouth 3 times daily as needed. ??? budesonide (PULMICORT) 0.5 MG/2ML Suspension 0.5 mg by Nebulization route 2 times daily. ??? Calcium Carbonate (CALCIUM 500 PO) Take by mouth. ??? Cholecalciferol (VITAMIN D-3 PO) Take by mouth. ??? famotidine (PEPCID) 20 MG Tablet Take 1 Tablet by mouth 2 times daily. 90 Tablet ??? fluticasone (FLONASE) 50 MCG/ACT Suspension 1 [place] by Nasal route 2 times daily. Use in each nostril as directed. 16 g 5 ??? Fluticasone-Salmeterol (ADVAIR DISKUS IN) take by inhalation. ??? ipratropium-albuterol (DUO-NEB) 0.5-2.5 (3) MG/3ML Solution 3 mL by Nebulization route 4 times daily for 180 days. DX- COPD J44.9 360 mL 5 ??? Loratadine 10 MG Capsule Take by mouth. ??? methylPREDNISolone (MEDROL DOSPACK) 4 MG Tablet Therapy Pack See product package insert for dosing schedule (Patient not taking: Reported on 12/06/2022) 21 Tablet 0 ??? Misc. Devices Misc Nebulizer machine with accessories - 1 DX- COPD J44.9 Use as directed to inhale Duoneb q6hrs 1 Each 0 ??? rOPINIRole (REQUIP) 0.25 MG Tablet Take 4 Tablets by mouth nightly. 90 Tablet 3 No current facility-administered medications for this visit. Review of Systems Constitutional: negative Eyes: negative Ears, nose, mouth, throat, and face: negative Respiratory: negative Cardiovascular: negative Gastrointestinal: negative Genitourinary:negative Integument/breast: negative Hematologic/lymphatic: negative Musculoskeletal:negative Neurological: negative Behvioral/Psych: negative Endocrine: negative Allergic/Immunologic: Allergies Allergen Reactions ??? Amoxicillin Nausea ??? Levaquin [Levofloxacin] Palpitations Objective: Vitals: Blood pressure 128/70, pulse 73, temperature 97.8 ??F (36.6 ??C), resp. rate 16, height 5' 5 (1.651 m), weight 132 lb 3.2 oz (60 kg), SpO2 94 %. Gen/Constitutional: No distress HEENT: Normocephalic, atraumatic. PERRLA, No oropharyngeal lesions or masses, external ears and nose shows no lesions or scars. Pupils reacted to light Neck: Supple, no JVD, no lymphadenopathy, no thyromegaly, no carotid bruits, no stridor, trachea midline Chest: non tender to palpation, without deformity Respiratory: No wheezing Heart: Regular rate and rhythm, no murmurs, clicks, gallops, or rubs, radial pulses bilaterally equal Abd: Soft, nontender, bowel sounds present, no hepatosplenomegaly. Ext: No edema Neuro: Alert, Oriented to person, place and time. Normal mood and affect. Skin: Warm and dry, without lesions Musculoskeletal: Normal gait and station, strength equal and normal and full ROM in all 4 extremities Assessment & Plan: ICD-10-CM 1. TOOTIE (obstructive sleep apnea) G47.33 2. Centrilobular emphysema (HCC) J43.2 PULMONARY REFERRAL COMPLETE PFT W + W/O BRONCHODILATOR XR CHEST 2 VIEWS Patient continue have cough with wheezing. Will add Brovana via nebulizer twice a day. 3. Hyperlipidemia, unspecified hyperlipidemia type E78.5 4. Essential (primary) hypertension I10 5. Restless legs syndrome (RLS) G25.81 6. Chronic maxillary sinusitis J32.0 CT SINUSES W/O CONTRAST Plan: Continue MDI Advair/albuterol MDI teaching Nebulizers Start ropinirole Continue antihypertensives CT sinues PFTs Return in about 3 months (around 03/06/2023). Documentation for this visit on December 06 was completed using a template. I have seen and examined the patient. Everything documented was personally performed at this visit with the necessary additions, deletions and changes made as appropriate. Guille Collier MD 12/06/2022 11:50 AM NUTRITION PARTNER ITION PARTNER documented in this encounter Plan of Treatment Upcoming Encounters Date Type Department Care Team (Late st Contact Info) Description 11/19/2024 8:00 AM NUTRITION PARTNER Office Visit [facility] - Internal Medicine [place] [address] [place] [address] Torito Gonzalez MD [address] [place] [address] documented as of this encounter Results * CT SINUSES W/O CONTRAST (12/10/2022 1:53 PM NUTRITION PARTNER) Anatomical Region Laterality Modality Head N/A Computed Tomogra phy 12/12/2022 12:2 4 PM NUTRITION PARTNER Impressions 12/12/2022 12:27 PM NUTRITION PARTNER IMPRESSION: ?? Interval progression with near complete opacification of the sinuses with evidence of a sinha sinusitis. Narrative 12/12/2022 12:27 PM NUTRITION PARTNER EXAM DESCRIPTION: ?? CT SINUSES W/O CONTRAST [...] Electronically signed by ??Jeremy Quiroz M.D. CH: CH D: ??12/12/2022 12:24 PM T: ??12/12/2022 12:24 PM Report ID: [id number] Reading Location: ??[id number] Procedure Note Jeremy Quiroz Jr., MD - [...] by Jeremy Quiroz M.D. CH: Report ID: [id number] Reading Location: [id number] IMPRESSION: Interval progression with near complete opacification of the sinuses with evidence of a sinha sinusitis. Guille Collier MD [facility] CT ORDERABLES Final Result * XR CHEST 2 VIEWS (12/10/2022 12:42 PM NUTRITION PARTNER) Anatomical Region Laterality Modality Chest N/A Digital Radiogra phy 12/12/2022 12:2 0 PM NUTRITION PARTNER Impressions 12/12/2022 12:23 PM NUTRITION PARTNER IMPRESSION: 1. ?? No evidence of an acute cardiopulmonary abnormality. 2. ?? Emphysema. Narrative 12/12/2022 12:23 PM NUTRITION PARTNER EXAM DESCRIPTION: ?? XR CHEST 2 VIEWS REASON FOR STUDY: ?? Centrilobular emphysema TECHNIQUE: Frontal and lateral ??radiographic views of the chest acquired. COMPARISON: 06/21/2022. FINDINGS: LUNGS/PLEURA: ?? No focal consolidation or pneumothorax. No pleural effusion. ?? The lungs are hyperexpanded with flattened diaphragms evidence of emphysema. HEART/MEDIASTINUM: ?? Heart size is normal. Normal mediastinal and hilar contours. HARDWARE/LINES/TUBES: ?? None. BONES: ?? No acute findings. OTHER: ?? No other significant finding. THIS IS AN ELECTRONICALLY VERIFIED FINAL REPORT 12/12/2022 12:20 PM - Electronically signed by ??Jeremy Quiroz M.D. CH: MISAEL D: ??12/12/2022 12:20 PM T: ??12/12/2022 12:20 PM Report ID: [id number] Reading Location: ??[id number] Procedure Note Jeremy Quiroz Jr., MD - 12/12/2022 EXAM DESCRIPTION: XR CHEST 2 VIEWS REASON FOR STUDY: Centrilobular emphysema TECHNIQUE: Frontal and lateral radiographic views of the chest acquired. COMPARISON: 06/21/2022. FINDINGS: LUNGS/PLEURA: No focal consolidation or pneumothorax. No pleural effusion. The lungs are hyperexpanded with flattened diaphragms evidence of emphysema. HEART/MEDIASTINUM: Heart size is normal. Normal mediastinal and hilar contours. HARDWARE/LINES/TUBES: None. BONES: No acute findings. OTHER: No other significant finding. THIS IS AN ELECTRONICALLY VERIFIED FINAL REPORT 12/12/2022 12:20 PM - Electronically signed by Jeremy Quiroz M.D. CH: MISAEL Report ID: [id number] Reading Location: [id number] IMPRESSION: 1. No evidence of an acute cardiopulmonary abnormality. 2. Emphysema. Guille Collier MD [facility] DIAGNOSTIC ORDERABLES Final Result * Complete PFT W + W/O Bronchodilator [...] documented in this encounter Visit Diagnoses Diagnosis TOOTIE (obstructive sleep apnea)- Primary Obstructive sleep apnea (adult) (pediatric) Centrilobular emphysema (HCC) Other emphysema Hyperlipidemia, unspecified hyperlipidemia type Essential (primary) hypertension Unspecified essential hypertension Restless legs syndrome (RLS) Chronic maxillary sinusitis Chronic maxillary sinusitis Centrilobular emphysema (HCC) Other emphysema documented in this encounter Additional Health Concerns Assessment Noted Time PHQ-9 Depression Total Score: 0 07/14/20 21 8:00 AM CDT documented as of this encounter Care Teams Product Marketer Relationship Specialty Start Date End Date Torito Gonzalez MD [address] [place] [address] PCP - General Internal Medicine 02/01/20 Guille Collier MD [address] [place] [address] Consulting Physician Pulmonary Disease 12/06/22 documented as of this encounter
--- OUTSIDE RECORDS SUMMARY | 2024-11-18 11:34 | XMS_ITS | Encounter Summary ---
Author Organization [facility] Address [address] [place] [address] Phone Care Team Providers Care Biopharmaceutical Rep Name Role Phone Torito Gonzalez MD Primary Care Provider [phone] Encounter Details Date Type Department Care Team (Late Contact Info) Description 10/07/2022 Transcribe Orders [facility] Sleep [facility] [address] [place] [address] Torito Gonzalez MD [address] [place] [address] Observed sleep apnea (Primary Dx); Snoring Social History Tobacco Use Types Packs/Day Years [...] Coronavirus/COVID-19? No / Unsure 10/07/2022 7:47 AM SHEETER WAXER OPERATOR documented as of this encounter Plan of Treatment Upcoming Encounters Date Type Department Care Team (Late Contact Info) Description 11/19/2024 8:00 AM SHEETER WAXER OPERATOR Office Visit [facility] - Internal Medicine - [place] [address] [place] [place] [address] Torito Gonzalez MD [address] [place] [address] documented as of this encounter Results * SPLIT NIGHT PSG (10/15/2022 12:00 AM SHEETER WAXER OPERATOR) 10/15/2022 us Torito Gonzalez MD SLEEP CENTER ORDERABLES Fin al Result SCAN documented in this encounter Visit Diagnoses Diagnosis Observed sleep apnea- Primary Unspecified sleep apnea Snoring Other dyspnea and respiratory abnormality documented in this encounter Additional Health Concerns Assessment Noted Time PHQ-9 Depression Total Score: 0 07/14/20 21 8:00 AM CDT documented as of this encounter Care Teams Biopharmaceutical Rep Relationship Specialty Start Date End Date Torito Gonzalez MD [address] [place] [address] PCP - General Internal Medicine 02/01/20 documented as of this encounter
--- OUTSIDE RECORDS SUMMARY | 2024-11-18 11:34 | XMS_ITS | Encounter Summary ---
Author Organization [facility] [employer] Care Team Providers Care Commercial Loan Administrator Name Role Phone Torito Gonzalez MD Primary Care Provider [phone] Guille Collier MD Unavailable Encounter Details Date Type Department Care Team (Latest Contact Info) Description 12/10/2022 Travel Social History Tobacco Use Types Packs/Day [...] Coronavirus/COVID-19? No / Unsure 12/10/2022 11:59 AM DUST MIXER documented as of this encounter Plan of Treatment Upcoming Encounters Date Type Department Care Team (Late st Contact Info) Description 11/19/2024 8:00 AM DUST MIXER Office Visit [facility] - Internal Medicine - [place] [address] [place] [address] Torito Gonzalez MD [address] [place] [address] documented as of this encounter Visit Diagnoses Not on filedocumented in this encounter Additional Health Concerns Assessment Noted Time PHQ-9 Depression Total Score: 0 07/14/20 21 8:00 AM CDT documented as of this encounter Care Teams Commercial Loan Administrator Relationship Specialty Start Date End Date Torito Gonzalez MD [address] [place] [address] PCP - General Internal Medicine 02/01/20 Guille Collier MD [address] [place] [address] Consulting Physician Pulmonary Disease 12/06/22 documented as of this encounter
--- OUTSIDE RECORDS SUMMARY | 2024-11-18 11:34 | XMS_ITS | Encounter Summary ---
Author Organization [facility] Address [address] [place] [address] Phone Care Team Providers Care Technical Services Librarian Name Role Phone Torito Gonzalez MD Primary Care Provider [phone] Encounter Details Date Type Department Care Team (Late st Contact Info) Description 10/13/2022 Telephone [facility] [place] [address] [place] [address] Torito Gonzalez MD [address] [facility] [place] [address] Social History Tobacco Use Types [...] Coronavirus/COVID-19? No / Unsure 10/14/2022 6:52 PM EMPLOYMENT INSTRUCTIONAL ASSOCIATE documented as of this encounter Miscellaneous Notes * Telephone Encounter - Chantal Randhawa RN - 10/18/2022 11:59 AM EMPLOYMENT INSTRUCTIONAL ASSOCIATE Sent to [facility]. OYMENT INSTRUCTIONAL ASSOCIATE * Telephone Encounter - Torito Gonzalez MD - 10/13/2022 9:50 AM EMPLOYMENT INSTRUCTIONAL ASSOCIATE Okay to send order to dc O2 OYMENT INSTRUCTIONAL ASSOCIATE * Telephone Encounter - Jacob February - 10/13/2022 9:41 AM CST Patient is no longer using oxygen, please send order to [facility] to have them sheepskin pickler OYMENT INSTRUCTIONAL ASSOCIATE documented in this encounter Plan of Treatment Upcoming Encounters Date Type Department Care Team (Late st Contact Info) Description 11/19/2024 8:00 AM EMPLOYMENT INSTRUCTIONAL ASSOCIATE Office Visit [facility] - Internal Medicine [facility] [address] [place] [address] Torito Gonzalez MD [address] [place] [address] documented as of this encounter Visit Diagnoses Diagnosis Centrilobular emphysema (HCC)- Primary Other emphysema documented in this encounter Additional Health Concerns Assessment Noted Time PHQ-9 Depression Total Score: 0 07/14/20 21 8:00 AM CDT documented as of this encounter Care Teams Technical Services Librarian Relationship Specialty Start Date End Date Torito Gonzalez MD [address] [place] [address] PCP - General Internal Medicine 02/01/20 documented as of this encounter
--- OUTSIDE RECORDS SUMMARY | 2024-11-18 11:34 | XMS_ITS | Encounter Summary ---
Author Organization [employer] Care Team Providers Care Biofuels Plant Construction Worker Name Role Phone Torito Gonzalez MD Primary Care Provider [phone] Encounter Details Date Type Department Care Team (Latest Contact Info) Description 10/07/2022 Travel Social History Tobacco Use Types Packs/Day [...] Coronavirus/COVID-19? No / Unsure 10/07/2022 7:47 AM CARETAKER documented as of this encounter Plan of Treatment Upcoming Encounters Date Type Department Care Team (Late st Contact Info) Description 11/19/2024 8:00 AM CARETAKER Office Visit [facility] - Internal Medicine - [place] [address] [place] [place] [address] Torito Gonzalez MD [address] [place] [address] documented as of this encounter Visit Diagnoses Not on filedocumented in this encounter Additional Health Concerns Assessment Noted Time PHQ-9 Depression Total Score: 0 07/14/20 21 8:00 AM CDT documented as of this encounter Care Teams Biofuels Plant Construction Worker Relationship Specialty Start Date End Date Torito Gonzalez MD [address] [place] [address] PCP - General Internal Medicine 02/01/20 documented as of this encounter
--- OUTSIDE RECORDS SUMMARY | 2024-11-18 11:34 | XMS_ITS | Encounter Summary ---
Author Organization [facility] Address [address] [place] [address] Phone Care Team Providers Care Ent Surgeon Name Role Phone Torito Gonzalez MD Primary Care Provider [phone] Reason for Visit * Reason Onset Date Comments Results 11/04/2022 Sleep study Encounter Details Date Type Department Care Team ([facility] st Contact Info) Description 11/04/2022 Telephone [facility] - [place] [address] [facility] [address] Aneta Riley, [facility] [address] [facility] [address] Results (Sleep study) Social History Tobacco Use Types Packs/Day Years [...] Coronavirus/COVID-19? No / Unsure 11/04/2022 8:27 AM DATACAP DEVELOPER documented as of this encounter Functional Status [...] Yan RMA documented as of this encounter Miscellaneous Notes * Telephone Encounter - Chantal Randhawa RN - 11/04/2022 4:30 PM CST Phoned patient with sleep study results. Patient aware and verbalized understanding. CAP DEVELOPER * Telephone Encounter - Chantal Randhawa RN - 11/04/2022 4:15 PM CST Attempted to call patient with results, no answer at this time. Left message to call back. CAP DEVELOPER * Telephone Encounter - Aneta Riley PAC - 11/04/2022 9:11 AM CST Call pt and let her know her sleep study did show mild TOOTIE She has an OV planned with Amira soon; they can discuss it further then; plan of care SUMMARY: ??? Mild obstructive sleep apnea (G47.33). ??? Overall AHI=5.1/hr, Overall SDB index=6.4/hr. ??? Oximetry showed average sleep saturation of 92%, lowest SaO2 was 87% and her saturations were above 90% for 86.2% of the night. ??? Lateral anterior tibialis recording showed moderate periodic limb movements with 6.6 per hour resulting in arousal. ?? RECOMMENDATIONS: ??? Consider all night titration of nasal CPAP or evaluation with dental appliance. ??? Recommend evaluation for underlying causes of RLS and PLMD, including serum ferritin and iron. Consider trial with pharmacological agents for treatment for PLMD if symptoms warrant. ??? Obtain and maintain ideal body weight. ??? Avoid alcohol and other CHROME CLEANER depressants. CAP DEVELOPER documented in this encounter Plan of Treatment Upcoming Encounters Date Type Department Care Team (Late st Contact Info) Description 11/19/2024 8:00 AM DATACAP DEVELOPER Office Visit [facility] - Internal Medicine [place] [address] [place] [address] Torito Gonzalez MD [address] [place] [address] documented as of this encounter Visit Diagnoses Not on filedocumented in this encounter Additional Health Concerns Infection Onset Date Last Indicated Resolved Time COVID - 19 Confirmed 10/30/2022 10/30/2022 022 12:16 AM DATACAP DEVELOPER COVID - 19 10/30/2022 10/30/2022 11/09/2022 12:1 6 AM DATACAP DEVELOPER Assessment Noted Time PHQ-9 Depression Total Score: 0 07/14/20 21 8:00 AM CDT documented as of this encounter Care Teams Ent Surgeon Relationship Specialty Start Date End Date Torito Gonzalez MD [address] [place] [address] PCP - General Internal Medicine 02/01/20 documented as of this encounter
--- OUTSIDE RECORDS SUMMARY | 2024-11-18 11:34 | XMS_ITS | Encounter Summary ---
Author Organization [facility] [employer] Care Team Providers Care Retail Store Assistant Name Role Phone Torito Gonzalez MD Primary Care Provider [phone] Guille Collier MD Unavailable Encounter Details Date Type Department Care Team (Latest Contact Info) Description 12/06/2022 Travel Social History Tobacco Use Types Packs/Day [...] Coronavirus/COVID-19? No / Unsure 12/06/2022 10:34 AM HAND MEXICAN FOOD MAKER documented as of this encounter Plan of Treatment Upcoming Encounters Date Type Department Care Team (Late st Contact Info) Description 11/19/2024 8:00 AM HAND MEXICAN FOOD MAKER Office Visit [facility] Medical Group - Internal Medicine - [place] [address] [place] [address] Torito Gonzalez MD [address] [place] [address] documented as of this encounter Visit Diagnoses Not on filedocumented in this encounter Additional Health Concerns Assessment Noted Time PHQ-9 Depression Total Score: 0 07/14/20 21 8:00 AM CDT documented as of this encounter Care Teams Retail Store Assistant Relationship Specialty Start Date End Date Torito Gonzalez MD [address] [place] [address] PCP - General Internal Medicine 02/01/20 Guille Collier MD [address] [place] [address] Consulting Physician Pulmonary Disease 12/06/22 documented as of this encounter
--- OUTSIDE RECORDS SUMMARY | 2024-11-18 11:34 | XMS_ITS | Encounter Summary ---
Author Organization [employer] Care Team Providers Care Campaign Marketing Manager Name Role Phone Torito Gonzalez MD Primary Care Provider [phone] Encounter Details Date Type Department Care Team (Latest Contact Info) Description 10/14/2022 Travel Social History Tobacco Use Types Packs/Day [...] Coronavirus/COVID-19? No / Unsure 10/14/2022 6:52 PM AUTOMATIC GLOVE FORMER documented as of this encounter Plan of Treatment Upcoming Encounters Date Type Department Care Team (Late st Contact Info) Description 11/19/2024 8:00 AM AUTOMATIC GLOVE FORMER Office Visit [facility] Medical Group - Internal Medicine - [place] [address] [place] [address] Torito Gonzalez MD [address] [place] [address] documented as of this encounter Visit Diagnoses Not on filedocumented in this encounter Additional Health Concerns Assessment Noted Time PHQ-9 Depression Total Score: 0 07/14/20 21 8:00 AM CDT documented as of this encounter Care Teams Campaign Marketing Manager Relationship Specialty Start Date End Date Torito Gonzalez MD [address] [place] [address] PCP - General Internal Medicine 02/01/20 documented as of this encounter
--- OUTSIDE RECORDS SUMMARY | 2024-11-18 11:34 | XMS_ITS | Encounter Summary ---
Author Organization [facility] Address [address] [place] [address] Phone Care Team Providers Care General Hardware Salesperson Name Role Phone Torito Gonzalez MD Primary Care Provider [phone] Guille Collier MD Unavailable Reason for Referral * Radiology Services (Routine) - Closed Specialty Diagnoses / Procedures Referred By Aprilac t Referred To Contact Radiology Diagnoses Centrilobular emphysema (HCC) Procedures XR CHEST 2 VIEWS Guille Collier MD [address] [place] [address] Phone: tel: fax: Referral ID Status Reason Start Date Expiration Date Visits Re quested Visits Authorized Closed 12/06/2022 1 1 SPINNER Reason for Visit * Radiology Services (Routine) - Closed Specialty Diagnoses / Procedures Referred By Turner ramirez Referred To Contact Radiology Diagnoses Centrilobular emphysema (HCC) Procedures XR CHEST 2 VIEWS Guille Collier MD [address] [place] [address] Phone: tel: fax: Referral ID Status Reason Start Date Expiration Date Visits Re quested Visits Authorized Closed 12/06/2022 1 1 Encounter Details Date Type Department Care Team (Latest Contact Info) Description 12/10/2022 12:06 PM RING SPINNER - 12/10/2022 12:48 PM RING SPINNER Hospital Encounter [facility] Diagnostic Radiology [address] [place] [address] Guille Collier MD [address] [place] [id number] Discharge Disposition: Discharged to home or Selfcare [...] Coronavirus/COVID-19? No / Unsure 12/10/2022 11:59 AM RING SPINNER documented as of this encounter Medications at [...] 3 fluticasone (FLONASE) 50 MCG/ACT Suspension 1 [place] by Nasal route 2 times daily. Use [...] st Contact Info) Description 11/19/2024 8:00 AM RING SPINNER Office Visit [facility] - Internal Medicine [place] [address] [place] [address] Torito Gonzalez MD [address] [place] [address] documented as of this encounter Procedures Procedure Name Priority Date/Time Associated Diagnosis Comments XR CHEST 2 VIEWS Routine 12/10/2022 12:4 2 PM RING SPINNER Centrilobular emphysema (HCC) documented in this encounter Results * XR CHEST 2 VIEWS (12/10/2022 12:42 PM RING SPINNER) Anatomical Region Laterality Modality Chest N/A Digital Radiogra phy 12/12/2022 12:2 0 PM RING SPINNER Impressions 12/12/2022 12:23 PM RING SPINNER IMPRESSION: 1. ?? No evidence of an acute cardiopulmonary abnormality. 2. ?? Emphysema. Narrative 12/12/2022 12:23 PM RING SPINNER EXAM DESCRIPTION: ?? XR CHEST 2 VIEWS [...] by ??Jeremy Quiroz M.D. CH: D: ??12/12/2022 12:20 PM T: ??12/12/2022 12:20 PM Report ID: [id number] Reading Location: ??[id number] Procedure Note Jeremy Quiroz Jr., MD - [...] Jeremy Quiroz M.D. CH: MISAEL Report ID: [id number] Reading Location: [place] [address] IMPRESSION: 1. No evidence of an acute cardiopulmonary abnormality. 2. Emphysema. Guille Collier MD IMG DIAGNOSTIC ORDERABLES Final Result documented in this encounter Visit Diagnoses Diagnosis Centrilobular emphysema (HCC) Other emphysema documented in this encounter Additional Health Concerns Assessment Noted Time PHQ-9 Depression Total Score: 0 07/14/20 21 8:00 AM CDT documented as of this encounter Care Teams General Hardware Salesperson Relationship Specialty Start Date End Date Torito Gonzalez MD [address] [place] [address] PCP - General Internal Medicine 02/01/20 Guille Collier MD [address] [place] [address] Consulting Physician Pulmonary Disease 12/06/22 documented as of this encounter
--- OUTSIDE RECORDS SUMMARY | 2024-11-18 11:34 | XMS_ITS | Encounter Summary ---
Author Organization [facility] [place] [address] Phone Care Team Providers Care Farm Appraiser Name Role Phone Torito Gonzalez MD Primary Care Provider [phone] Reason for Visit * Reason Onset Date Comments Results 11/01/2022 Sleep study Encounter Details Date Type Department Care Team (Late st Contact Info) Description 11/01/2022 Telephone [facility] - Pulmonology & Sleep Medicine [facility] [address] [place] [id number] Guille Collier MD [address] [place] [id number] Results (Sleep study ) Social History Tobacco Use Types Packs/Day Years [...] Coronavirus/COVID-19? No / Unsure 10/30/2022 6:38 PM VENDING MACHINE SERVICER documented as of this encounter Miscellaneous Notes * Telephone Encounter - Una Chilel RN - 11/01/2022 8:50 AM VENDING MACHINE SERVICER Sleep study results and referral request faxed to ordering providers office. ING MACHINE SERVICER documented in this encounter Plan of Treatment Upcoming Encounters Date Type Department Care Team (Late st Contact Info) Description 11/19/2024 8:00 AM VENDING MACHINE SERVICER Office Visit [facility] Medical Group - Internal Medicine - [place] [address] [place] [address] Torito Gonzalez MD [address] [place] [address] documented as of this encounter Visit Diagnoses Not on filedocumented in this encounter Additional Health Concerns Infection Onset Date Last Indicated Resolved Time COVID - 19 Confirmed 10/30/2022 10/30/2022 022 12:16 AM VENDING MACHINE SERVICER COVID - 19 10/30/2022 10/30/2022 11/09/2022 12:1 6 AM VENDING MACHINE SERVICER Assessment Noted Time PHQ-9 Depression Total Score: 0 07/14/20 21 8:00 AM CDT documented as of this encounter Care Teams Farm Appraiser Relationship Specialty Start Date End Date Torito Gonzalez MD [address] [place] [address] PCP - General Internal Medicine 02/01/20 documented as of this encounter
--- OUTSIDE RECORDS SUMMARY | 2024-11-18 11:34 | XMS_ITS | Encounter Summary ---
Author Organization [employer] Care Team Providers Care Security Operations Analyst Name Role Phone Torito Gonzalez MD Primary Care Provider [phone] Guille Collier MD Unavailable Encounter Details Date Type Department Care Team (Latest Contact Info) Description 01/13/2023 Travel Social History Tobacco Use Types Packs/Day [...] Coronavirus/COVID-19? No / Unsure 01/13/2023 7:58 AM GARDEN WORKER documented as of this encounter Functional Status * Question Answer Date of Assessment Author Little interest or pleasure in doing things Not at all 01/13/2023 8:00 AM Francisca Connell CMA Feeling down, depressed, or hopeless Not at all 01/13/2023 8:00 AM Francisca Connell CMA * Over the past 2 weeks, how often have you been bothered by any of the following problems? Question Answer Date of Assessment Author Patient Health Questionnaire -2 Score 0 01/13/2023 8:00 AM Francisca Connell CMA documented as of this encounter Plan of Treatment Upcoming Encounters Date Type Department Care Team (Late st Contact Info) Description 11/19/2024 8:00 AM GARDEN WORKER Office Visit [facility] - Internal Medicine [facility] [address] [place] [address] Torito Gonzalez MD [address] [place] [address] documented as of this encounter Visit Diagnoses Not on filedocumented in this encounter Additional Health Concerns Assessment Noted Time PHQ-9 Depression Total Score: 0 07/14/20 21 8:00 AM CDT documented as of this encounter Care Teams Security Operations Analyst Relationship Specialty Start Date End Date Torito Gonzalez MD [address] [place] [address] PCP - General Internal Medicine 02/01/20 Guille Collier MD [address] [place] [address] Consulting Physician Pulmonary Disease 12/06/22 documented as of this encounter
--- OUTSIDE RECORDS SUMMARY | 2024-11-18 11:35 | XMS_ITS | Encounter Summary ---
Author Organization [facility] Address [address] [place] [address] Phone Care Team Providers Care Coal Washer Name Role Phone Torito Gonzalez MD Primary Care Provider [phone] Reason for Visit * Reason Onset Date Comments Advice Only 09/15/2022 Encounter Details Date Type Department Care Team ([facility] st Contact Info) Description 09/15/2022 Telephone [facility] - [facility] - [place] [address] [address] Torito Gonzalez MD [address] [place] [address] Advice Only Social History Tobacco Use Types Packs/Day Years [...] suspected to have Coronavirus/COVID-19? No / Unsure 09/14/2022 8:28 AM CDT documented as of this encounter Miscellaneous Notes * Telephone Encounter - Pattie Kidd RN - 09/16/2022 11:03 AM CDT Pt verbalizes understanding. * Telephone Encounter - Torito Gonzalez MD - 09/16/2022 10:[address] cancel doxycycline rx. Okay to cont. Zithromax and cephalexin * Telephone Encounter - Pattie Kidd RN - 09/16/2022 10:03 AM CDT Pt called and states that she did end up going to the ER last night. States her breathing and headache got much worse. Pt states she is feeling a little better this morning. Only mild headache and nobreathing issues at this time. Pt states that symptoms started on Tuesday evening. Medications prescribed by ER, Albuterol azithromycin cephalexin Methylprednisolone Tramadol * Telephone Encounter - Torito Gonzalez MD - 09/16/2022 8:45 AM CDT Need to stop Levaquin. I will send rx of Doxycycline * Telephone Encounter - Pattie Kidd RN - 09/15/2022 4:09 PM CDT Pt states she is having a headache and rapid heart rate with taking the levofloxacin. Pt took a dose yesterday and today and these symptoms started after taking medication. States she has taken tylenol but has given her no relief from her headache. Pt states heart rate last time she took it was 112. Denies any other symptoms. Pt instructed to go to ER if symptoms worsen through the night, pt verbalizes understanding. Please advise. documented in this encounter Plan of Treatment Upcoming Encounters Date Type Department Care Team (Late st Contact Info) Description 11/19/2024 8:00 AM DIRECTOR AUDIENCE MARKETING Office Visit [facility] - Internal Medicine [facility] [address] [place] [address] Torito Gonzalez MD [address] [place] [address] documented as of this encounter Visit Diagnoses Not on filedocumented in this encounter Additional Health Concerns Assessment Noted Time PHQ-9 Depression Total Score: 0 07/14/20 21 8:00 AM CDT documented as of this encounter Care Teams Coal Washer Relationship Specialty Start Date End Date Torito Gonzalez MD [address] [place] [address] PCP - General Internal Medicine 02/01/20 documented as of this encounter
--- OUTSIDE RECORDS SUMMARY | 2024-11-18 11:35 | XMS_ITS | Encounter Summary ---
Author Organization [employer] Care Team Providers Care Export Clerk Name Role Phone Torito Gonzalez MD Primary Care Provider [phone] Encounter Details Date Type Department Care Team (Latest Contact Info) Description 02/02/2022 Travel Social History Tobacco Use Types Packs/Day [...] Exposure Response Date Recorded In the last month, have you been in contact with someone who was confirmed or suspected to have Coronavirus / COVID-19? No / Unsure 02/02/2022 2:54 PM TECHNICAL SOLUTION ARCHITECT documented as of this encounter Plan of Treatment Upcoming Encounters Date Type Department Care Team (Late st Contact Info) Description 11/19/2024 8:00 AM TECHNICAL SOLUTION ARCHITECT Office Visit [facility] Medical Group - Internal Medicine - [place] [address] [place] [address] Torito Gonzalez MD [address] [place] [address] documented as of this encounter Visit Diagnoses Not on filedocumented in this encounter Additional Health Concerns Assessment Noted Time PHQ-9 Depression Total Score: 0 07/14/20 21 8:00 AM CDT documented as of this encounter Care Teams Export Clerk Relationship Specialty Start Date End Date Torito Gonzalez MD [address] [place] [address] PCP - General Internal Medicine 02/01/20 documented as of this encounter
--- OUTSIDE RECORDS SUMMARY | 2024-11-18 11:35 | XMS_ITS | Encounter Summary ---
Author Organization [employer] Care Team Providers Care Injection Operator Name Role Phone Torito Gonzalez MD Primary Care Provider [phone] Encounter Details Date Type Department Care Team (Latest Contact Info) Description 02/20/2022 Travel Social History Tobacco Use Types Packs/Day [...] suspected to have Coronavirus/COVID-19? No / Unsure 02/20/2022 6:17 AM CDT documented as of this encounter Plan of Treatment Upcoming Encounters Date Type Department Care Team (Late st Contact Info) Description 11/19/2024 8:00 AM GEOTHERMAL OPERATIONS MANAGER Office Visit [facility] Medical Group - Internal Medicine - [place] [address] [place] [address] Torito Gonzalez MD [address] [place] [address] documented as of this encounter Visit Diagnoses Not on filedocumented in this encounter Additional Health Concerns Assessment Noted Time PHQ-9 Depression Total Score: 0 07/14/20 21 8:00 AM CDT documented as of this encounter Care Teams Injection Operator Relationship Specialty Start Date End Date Torito Gonzalez MD [address] [place] [address] PCP - General Internal Medicine 02/01/20 documented as of this encounter
--- OUTSIDE RECORDS SUMMARY | 2024-11-18 11:35 | XMS_ITS | Encounter Summary ---
Author Organization [employer] Care Team Providers Care Carpet Installer Name Role Phone Torito Gonzalez MD Primary Care Provider [phone] Encounter Details Date Type Department Care Team (Latest Contact Info) Description 07/05/2022 Travel Social History Tobacco Use Types Packs/Day [...] suspected to have Coronavirus/COVID-19? No / Unsure 07/05/2022 8:13 AM CDT documented as of this encounter Plan of Treatment Upcoming Encounters Date Type Department Care Team (Late st Contact Info) Description 11/19/2024 8:00 AM HOTHOUSE WORKER Office Visit [facility] Medical Group - Internal Medicine - [place] [address] [place] [address] Torito Gonzalez MD [address] [place] [address] documented as of this encounter Visit Diagnoses Not on filedocumented in this encounter Additional Health Concerns Assessment Noted Time PHQ-9 Depression Total Score: 0 07/14/20 21 8:00 AM CDT documented as of this encounter Care Teams Carpet Installer Relationship Specialty Start Date End Date Torito Gonzalez MD [address] [place] [address] PCP - General Internal Medicine 02/01/20 documented as of this encounter
--- OUTSIDE RECORDS SUMMARY | 2024-11-18 11:35 | XMS_ITS | Encounter Summary ---
Author Organization [facility] Address [address] [place] [address] Phone Care Team Providers Care Director Quality Assurance Name Role Phone Torito Gonzalez MD Primary Care Provider [phone]- [phone] Reason for Visit * Reason Comments Cough Since january Breathing Problem Encounter Details Date Type Department Care Team (Late st Contact Info) Description 05/10/2022 10:00 AM CDT Office Visit [facility] - [facility] - [place] [address] [facility] [place] [id number] Torito Gonzalez MD [address] [place] [address] Acute bronchitis, unspecified organism (Primary Dx); Mild intermittent reactive airway disease without complication Discharge Disposition: Discharged to home or Selfcare [...] suspected to have Coronavirus/COVID-19? No / Unsure 05/10/2022 9:37 AM CDT documented as of this encounter Last Filed Vital Signs Vital Sign Reading Time Taken Comments Blood Pressure 132/80 05/10/2022 9:53 AM CDT Pulse 80 05/10/2022 9:53 AM CDT Temperature 36.4 ??C (97.5 ??F) 05/10/2022 9:53 AM CD T Respiratory Rate - - Oxygen Saturation 95% 05/10/2022 9:53 AM CDT Inhaled Oxygen Concentration - - Weight 63 kg (139 lb) 05/10/2022 9:53 AM CDT Height 165.1 cm (5' 5 ) 05/10/2022 9:53 AM CDT Body Mass Index 23.13 05/10/2022 9:53 AM CDT documented in this encounter Progress Notes * Francisca Terrazas, BROOM MAN - 05/10/2022 10:00 AM CDT Gabbie Chris, 66 y.o., female is here for Cough (Since january) and Breathing Problem Medication Refills: Patient reports/denies need for medication refills. Orders Pended: no Requested Prescriptions No prescriptions requested or ordered in this encounter Home Medications Medication Sig Start Date End Date Taking? Authorizing Provider albuterol 108 (90 Base) MCG/ACT Aerosol Solution take 1-2 Puffs by inhalation every 6 hours as needed for Wheezing. 02/02/22 Yes Torito Gonzalez MD amLODIPine (NORVASC) 5 MG Tablet Take 5 mg by mouth daily. Yes Provider, Not On File ASPIRIN PO Take 81 mg by mouth daily. Yes Provider, Not On File famotidine (PEPCID) 20 MG Tablet Take 20 mg by mouth. Yes Provider, MD Christie fluticasone (FLONASE) 50 MCG/ACT Suspension 1 [place] by Nasal route 2 times daily. Use in each nostril as directed. 12/16/21 Yes Torito Gonzalez MD predniSONE (DELTASONE) 20 MG Tablet Take 1 Tablet by mouth daily. Patient not taking: Reported on 05/10/2022 02/02/22 Torito Gonzalez MD There are no discontinued medications. I have reviewed the home medication list with the patient and have reconciled discrepancies. The list is accurate to the best of my knowledge. Smoking Status: Social History Tobacco Use ??? Smoking status: Former Smoker Types: Cigarettes Quit date: 12/07/2009 Years since quittin.4 ??? Smokeless tobacco: Never Used Vaping Use ??? Vaping Use: Never used Substance Use Topics ??? Alcohol use: Not Currently ??? Drug use: Never Smoking Cessation Counseling Given: no Health Care Maintenance: Health Maintenance Due Topic Date Due ??? DEXA Bone Density Never done ??? DTaP/Tdap/Td Immunization (1 - Tdap) Never done ??? Zoster Immunization (1 of 2) Never done ??? Pneumococcal Immunization (65+ years) (1 - PCV) Never done ??? SARS-COV-2 Immunization (4 - Booster for Pfizer series) 03/12/2022 Orders Pended: no The following BPA's have been addressed with the patient today: Smoking * Torito Gonzalez MD - 05/10/2022 10:00 AM CDT PROGRESS NOTE [facility] - INTERNAL MEDICINE [address] [place] [address] PHONE: [phone] FAX: [phone] 05/10/2022 NAME: Gabbie Chris, : 1955, Assessment ASSESSMENT & PLAN: No follow-ups on file. Diagnoses and all orders for this visit: Acute bronchitis, unspecified organism Mild intermittent reactive airway disease without complication Other orders - clarithromycin (BIAXIN) 500 MG Tablet; Take 1 Tablet by mouth 2 times daily for 10 days. - fluticasone-salmeterol (ADVAIR) 250-50 MCG/ACT AEROSOL POWDER, BREATH ACTIVATED; take 1 Puff by inhalation in the morning and at bedtime. - predniSONE (DELTASONE) 20 MG Tablet; Take 1 Tablet by mouth daily. - albuterol 108 (90 Base) MCG/ACT Aerosol Solution; take 1-2 Puffs by inhalation every 6 hours as needed for Wheezing. Will treat with clarithromycin, prednisone, Advair and p.r.n. albuterol If symptoms persist consider further evaluation Chief Complaint Patient presents with ??? Cough Since january ??? Breathing Problem HPI Patient is here with complain of recurrence of her cough is started about 4 weeks ago. After last visit her cough was resolved completely. Has productive cough. Has postnasal drip drainage. Going forsinus surgery in couple of weeks. No fever chills or rigors. Wheezing present. Does get short of breath on exertion. No chest pain or palpitation. ROS Review of systems was negative, except as documented in HPI PHYSICAL EXAM VITALS: Wt Readings from Last 3 Encounters: 05/10/22 139 lb (63 kg) 02/02/22 144 lb (65.3 kg) 01/14/22 148 lb (67.1 kg) Temp Readings from Last 3 Encounters: 05/10/22 97.5 ??F (36.4 ??C) (Temporal) 02/02/22 97.3 ??F (36.3 ??C) (Temporal) 01/14/22 98.8 ??F (37.1 ??C) (Temporal) BP Readings from Last 3 Encounters: 05/10/22 132/80 02/02/22 130/74 01/14/22 130/76 Pulse Readings from Last 3 Encounters: 05/10/22 80 02/02/22 68 01/14/22 58 Physical Exam Vitals and nursing note reviewed. Constitutional: Appearance: Normal appearance. HENT: Head: Normocephalic. Right Ear: Tympanic membrane and ear canal normal. Left Ear: Tympanic membrane and ear canal normal. Eyes: Extraocular Movements: Extraocular movements intact. Conjunctiva/sclera: Conjunctivae normal. Pupils: Pupils are equal, round, and reactive to light. Cardiovascular: Rate and Rhythm: Normal rate and regular rhythm. Pulses: Normal pulses. Heart sounds: Normal heart sounds. Pulmonary: Effort: Pulmonary effort is normal. Comments: Bilateral rhonchi with mild diffuse expiratory wheezing present. Few rales on the right side present Abdominal: General: Abdomen is flat. Bowel sounds [...] updated. Allergies Allergen Reactions ??? Amoxicillin Nausea Current Outpatient Medications: ??? albuterol 108 (90 Base) MCG/ACT Aerosol Solution ??? amLODIPine (NORVASC) 5 MG Tablet ??? ASPIRIN PO ??? clarithromycin (BIAXIN) 500 MG Tablet ??? famotidine (PEPCID) 20 MG Tablet ??? fluticasone (FLONASE) 50 MCG/ACT Suspension ??? fluticasone-salmeterol (ADVAIR) 250-50 MCG/ACT AEROSOL POWDER, BREATH ACTIVATED ??? predniSONE (DELTASONE) 20 MG Tablet I educated Gabbie regarding diagnoses and plan of care. She verbalizes understanding and will call the office if situation changes. Voice recognition software was utilized in this dictation. Despite proof reading, typographical errors and/or content errors may have occurred. By: Torito Gonzalez MD 05/10/2022 11:45 AM CDT documented in this encounter Plan of Treatment Upcoming Encounters Date Type Department Care Team (Late st Contact Info) Description 11/19/2024 8:00 AM SILVER MINER Office Visit [facility] - Internal Medicine [facility] [address] [place] [address] Torito Gonzalez MD [address] [place] [address] documented as of this encounter Visit Diagnoses Diagnosis Acute bronchitis, unspecified organism- Primary Mild intermittent reactive airway disease without complication documented in this encounter Additional Health Concerns Assessment Noted Time PHQ-9 Depression Total Score: 0 07/14/20 21 8:00 AM CDT documented as of this encounter Care Teams Director Quality Assurance Relationship Specialty Start Date End Date Torito Gonzalez MD [address] [place] [address] PCP - General Internal Medicine 02/01/20 documented as of this encounter
--- OUTSIDE RECORDS SUMMARY | 2024-11-18 11:35 | XMS_ITS | Encounter Summary ---
Author Organization [facility] Address [address] [place] [address] Phone Care Team Providers Care Erp Engineer Name Role Phone Torito Gonzalez MD Primary Care Provider [phone]- [phone] Reason for Visit * Reason Comments COPD 2 week f/u Encounter Details Date Type Department Care Team (Late st Contact Info) Description 07/05/2022 8:15 AM CDT Office Visit [facility] - Internal Medicine - [place] [address] [place] [phone] Torito Gonzalez MD [address] [place] [address] COPD with acute exacerbation (HCC) (Primary Dx) Discharge Disposition: Discharged to home [...] Reading Time Taken Comments Blood Pressure 110/68 07/05/2022 8:22 AM CDT Pulse 82 07/05/2022 8:22 AM CDT Temperature 36.6 ??C (97.8 ??F) 07/05/2022 8:22 AM CD T Respiratory Rate 16 07/05/2022 8:22 AM CDT Oxygen Saturation 97% 07/05/2022 8:22 AM CDT Inhaled Oxygen Concentration - - Weight 62.6 kg (138 lb) 07/05/2022 8:22 AM CDT Height 165.1 cm (5' 5 ) 07/05/2022 8:22 AM CDT Body Mass Index 22.96 07/05/2022 8:22 AM CDT documented in this encounter Progress Notes * QuinteroMarianaBibi, BASSEM - 07/05/2022 8:15 AM CDT Gabbie Chris, 67 y.o., female is here for COPD (2 week f/u) Medication Refills: Patient reports/denies need for [...] by oral route. Yes Provider, MD Christie ASPIRIN PO Take 81 mg by mouth daily. Provider, Not On File budesonide (PULMICORT) 0.5 MG/2ML Suspension 2 mL by Nebulization route 2 times daily. DX J44.9- COPD Patient not taking: Reported on 07/05/2022 06/21/22 Torito Gonzalez MD famotidine (PEPCID) 20 MG Tablet Take 20 mg by mouth. Yes ProviderChristie MD fluticasone (FLONASE) 50 MCG/ACT Suspension 1 [place] by Nasal route 2 times daily. Use in each nostril as directed. 12/16/21 Yes Torito Gonzalez MD ipratropium-albuterol (DUO-NEB) 0.5-2.5 (3) MG/3ML Solution 3 mL by Nebulization route 4 times daily for 180 days. DX- COPD J44.9 06/21/22 12/18/22 Yes Torito Gonzalez MD [facility] Nebulizer machine with accessories - 1 DX- COPD J44.9 Use as directed to inhale Duoneb q6hrs 06/21/22 Yes Torito Gonzalez MD predniSONE (DELTASONE) 20 MG Tablet Take 1 Tablet by mouth daily. Patient not taking: Reported on 07/05/2022 06/21/22 Torito Gonzalez MD There are no discontinued medications. I have reviewed the home medication list with the patient and have reconciled discrepancies. The list is accurate to the best of my knowledge. Smoking Status: Social History Tobacco Use ??? Smoking status: Former Smoker Types: Cigarettes Quit date: 12/07/2009 Years since quittin.5 ??? Smokeless tobacco: Never Used Vaping Use ??? Vaping Use: Never used Substance Use Topics ??? Alcohol use: Not Currently ??? Drug use: Never Smoking Cessation Counseling Given: no Health Care Maintenance: Health Maintenance Due Topic Date Due ??? Hepatitis B Immunization (1 of 3 - 3-dose series) Never done ??? DEXA Bone Density Never done ??? Pneumococcal Immunization (65+ years) (1 - PCV) Never done ??? DTaP/Tdap/Td Immunization (1 - Tdap) Never done ??? Zoster Immunization (1 of 2) Never done ??? SARS-COV-2 Immunization (4 - Booster for Pfizer series) 03/12/2022 Orders Pended: no The following BPA's have been addressed with the patient today: none * Torito Gonzalez MD - 07/05/2022 8:15 AM CDT PROGRESS [facility] - INTERNAL MEDICINE [address] [place] [place] [address] PHONE: [phone] FAX: [phone] 07/05/2022 NAME: Gabbie Chris, : 1955, Assessment ASSESSMENT & PLAN: Return in about 3 months (around 10/05/2022) for cancel 07/15/22 appt. Diagnoses and all orders for this visit: COPD with acute exacerbation (HCC) Comments: Improved. Will continue DuoNeb and Pulmicort via nebulizer. Follow-up in 3 months, sooner if needed Other orders - aspirin 81 MG Chewable Tablet; Baby Aspirin 81 mg chewable tablet Chew 1 tablet every day by oral route. Follow-up in 3 months, sooner if needed Chief Complaint Patient presents with ??? COPD 2 week f/u HPI Patient is here for follow-up for COPD. Chest x-ray unremarkable. Breathing much better. Has cut down nebulizer treatment to twice a day. ROS Review of systems was negative, except as documented in HPI PHYSICAL EXAM VITALS: Wt Readings from Last 3 Encounters: 07/05/22 138 lb (62.6 kg) 06/21/22 134 lb (60.8 kg) 05/10/22 139 lb (63 kg) Temp Readings from Last 3 Encounters: 07/05/22 97.8 ??F (36.6 ??C) (Temporal) 06/21/22 97.2 ??F (36.2 ??C) (Temporal) 05/10/22 97.5 ??F (36.4 ??C) (Temporal) BP Readings from Last 3 Encounters: 07/05/22 110/68 06/21/22 100/66 05/10/22 132/80 Pulse Readings from Last 3 Encounters: 07/05/22 82 06/21/22 76 05/10/22 80 Physical Exam Vitals and nursing note reviewed. [...] ??? aspirin 81 MG Chewable Tablet ??? ASPIRIN PO ??? budesonide (PULMICORT) 0.5 MG/2ML Suspension ??? famotidine (PEPCID) 20 MG Tablet ??? fluticasone (FLONASE) 50 MCG/ACT Suspension ??? ipratropium-albuterol (DUO-NEB) 0.5-2.5 (3) MG/3ML Solution ??? Misc. Devices Misc I educated Gabbie regarding diagnoses and plan of care. She verbalizes understanding and will call the office if situation changes. Voice recognition software was utilized in this dictation. Despite proof reading, typographical errors and/or content errors may have occurred. By: Torito Gonzalez MD 07/05/2022 8:38 AM CDT documented in this encounter Plan of Treatment Upcoming Encounters Date Type Department Care Team (Late st Contact Info) Description 11/19/2024 8:00 AM DIE MAKER ELECTRONIC Office Visit [facility] - Internal Medicine - [place] [address] [place] [phone] Torito Gonzalez MD [address] [place] [address] documented as of this encounter Visit Diagnoses Diagnosis COPD with acute exacerbation (HCC)- Primary Obstructive chronic bronchitis with exacerbation documented in this encounter Additional Health Concerns Assessment Noted Time PHQ-9 Depression Total Score: 0 07/14/20 21 8:00 AM CDT documented as of this encounter Care Teams Erp Engineer Relationship Specialty Start Date End Date Torito Gonzalez MD [address] [place] [address] PCP - General Internal Medicine 02/01/20 documented as of this encounter
--- OUTSIDE RECORDS SUMMARY | 2024-11-18 11:35 | XMS_ITS | Encounter Summary ---
Author Organization [facility] Address [address] [place] [address] Phone Care Team Providers Care Voicer Name Role Phone Torito Gonzalez MD Primary Care Provider [phone]- [phone] Encounter Details Date Type Department Care Team (Late st Contact Info) Description 05/10/2022 Telephone [facility] - [facility] Medicine - [place] [address] [place] [address] Torito Gonzalez MD [address] [place] [address] Social History Tobacco Use Types [...] Telephone Encounter - Torito Gonzalez MD - 05/10/2022 10:50 AM CDT Yes, okay for both meds. Aware of possible interaction * Telephone Encounter - Chantal Randhawa RN - 05/10/2022 10:38 AM CDT ----- Message from [employer] sent at 05/10/2022 10:33 AM CDT ----- Regarding: PT MEDICAL QUESTION [facility] called to say that the e-scribed medicine Clarithromycin that Doctor sent over interacts with the Advair that Gabbie takes. Does Doctor still want Gabbie to have both meds? Call back number:[phone] documented in this encounter Plan of Treatment Upcoming Encounters Date Type Department Care Team (Late st Contact Info) Description 11/19/2024 8:00 AM FUN HOUSE OPERATOR Office Visit [facility] - Internal Medicine [place] [address] [place] [address] Torito Gonzalez MD [address] [place] [address] documented as of this encounter Visit Diagnoses Not on filedocumented in this encounter Additional Health Concerns Assessment Noted Time PHQ-9 Depression Total Score: 0 07/14/20 21 8:00 AM CDT documented as of this encounter Care Teams Voicer Relationship Specialty Start Date End Date Torito Gonzalez MD [address] [place] [address] PCP - General Internal Medicine 02/01/20 documented as of this encounter
--- OUTSIDE RECORDS SUMMARY | 2024-11-18 11:35 | XMS_ITS | Encounter Summary ---
Author Organization [facility] Address [address] [place] [address] Phone Care Team Providers Care Deputy Commonwealth'S Attorney Name Role Phone Torito Gonzalez MD Primary Care Provider Reason for Referral * Radiology Services (Routine) - Closed Specialty Diagnoses / Procedures Referred By Turner ramirez Referred To Contact Radiology Diagnoses Cough Procedures XR CHEST 2 VIEWS Torito Gonzalez MD [address] [place] [address] Phone: tel: fax: Referral ID Status Reason Start Date Expiration Date Visits Re quested Visits Authorized [id number] Closed 06/21/2022 1 1 Reason for Visit * Radiology Services (Routine) - Closed Specialty Diagnoses / Procedures Referred By Turner ramirez Referred To Contact Radiology Diagnoses Cough Procedures XR CHEST 2 VIEWS Torito Gonzalez MD [address] [facility] [place] [address] Phone: tel: fax: Referral ID Status Reason Start Date Expiration Date Visits Re quested Visits Authorized [id number] Closed 06/21/2022 1 1 Encounter Details Date Type Department Care Team ([facility] st Contact Info) Description 06/21/2022 9:09 AM CDT - 06/21/2022 11:59 PM CDT [facility] [address] [place] [phone] Torito Gonzalez MD [address] [place] [address] Discharge Disposition: Discharged to home or Selfcare [...] suspected to have Coronavirus/COVID-19? No / Unsure 06/21/2022 8:12 AM CDT documented as of this encounter Medications at [...] every day by oral route. 06/07/2022 3 ASPIRIN PO Take 81 mg by mouth daily. 2 budesonide (PULMICORT) 0.5 MG/2ML Suspension 2 mL by Nebulization route 2 times daily. DX J44.9- COPD 60 mL 5 06/21/2022 2 famotidine (PEPCID) 20 MG Tablet Take 20 mg by mouth. 2 fluticasone (FLONASE) 50 MCG/ACT Suspension 1 [place] by Nasal route 2 times daily. Use in each nostril as directed. 16 g 5 12/16/2021 3 ipratropium-albu terol (DUO-NEB) 0.5-2.5 (3) MG/3ML Solution 3 mL by Nebulization route 4 times daily for 180 days. DX- COPD J44.9 360 mL 5 06/21/2022 3 Misc. Devices Misc Nebulizer machine with accessories - 1 DX- COPD J44.9 Use as directed to inhale Duoneb q6hrs 1 Each 06/21/2022 3 predniSONE (DELTASONE) 20 MG Tablet Take 1 Tablet by mouth daily. 7 Tablet 06/21/2022 2 documented as of this encounter Plan of Treatment Upcoming Encounters Date Type Department Care Team (Late st Contact Info) Description 11/19/2024 8:00 AM HEALTH POLICY NURSE Office Visit [facility] - Internal Medicine - [place] [address] [place] [address] Torito Gonzalez MD [address] [place] [address] documented as of this encounter Procedures Procedure Name Priority Date/Time Associated Diagnosis Comments XR CHEST 2 VIEWS Routine 06/21/2022 9:19 AM CDT Cough documented in this encounter Results * XR CHEST 2 VIEWS (06/21/2022 9:19 AM CDT) Anatomical Region Laterality Modality Chest N/A Digital Radiogra phy 06/21/2022 3:30 PM CDT Impressions 06/21/2022 3:33 PM CDT IMPRESSION: ?? 1. ?? No acute findings are noted. 2. ?? Chronic changes as described above. Narrative 06/21/2022 3:33 PM CDT EXAM DESCRIPTION: ?? XR CHEST 2 VIEWS REASON FOR STUDY: ?? Cough for 9 months. TECHNIQUE: ?? Frontal ??and lateral radiographic views of the chest acquired. COMPARISON: ?? None available. FINDINGS: LUNGS/PLEURA: ?? The lungs are hyperinflated. ??Mild areas of scarring are noted in the lung apices. ??No focal consolidation. ?? No pleural effusion or pneumothorax. HEART/MEDIASTINUM: ?? The heart size is normal. ??The central pulmonary arteries are enlarged. ??No mediastinal widening. HARDWARE/LINES/TUBES: ?? None. BONES: ?? No acute findings. OTHER: ?? No other significant finding. THIS IS AN ELECTRONICALLY VERIFIED FINAL REPORT 06/21/2022 3:30 PM - Electronically signed by ??Sam Zamora M.D. RL: RL D: ??06/21/2022 3:30 PM T: ??06/21/2022 3:30 PM Report ID: [id number] Reading Location: ??[id number] Procedure Note Sam Zamora MD - 06/21/2022 EXAM DESCRIPTION: XR CHEST 2 VIEWS REASON FOR STUDY: Cough for 9 months. TECHNIQUE: Frontal and lateral radiographic views of the chest acquired. COMPARISON: None available. FINDINGS: LUNGS/PLEURA: The lungs are hyperinflated. Mild areas of scarring are noted in the lung apices. No focal consolidation. No pleural effusion or pneumothorax. HEART/MEDIASTINUM: The heart size is normal. The central pulmonary arteries are enlarged. No mediastinal widening. HARDWARE/LINES/TUBES: None. BONES: No acute findings. OTHER: No other significant finding. THIS IS AN ELECTRONICALLY VERIFIED FINAL REPORT 06/21/2022 3:30 PM - Electronically signed by Sam Zamora M.D. RL: RL Report ID: [id number] Reading Location: [id number] IMPRESSION: 1. No acute findings are noted. 2. Chronic changes as described above. us Torito Gonzalez MD IMG DIAGNOSTIC ORDERABLES F inal Result documented in this encounter Visit Diagnoses Diagnosis Cough documented in this encounter Additional Health Concerns Assessment Noted Time PHQ-9 Depression Total Score: 0 07/14/20 21 8:00 AM CDT documented as of this encounter Care Teams Deputy Commonwealth'S Attorney Relationship Specialty Start Date End Date Torito Gonzalez MD [address] [place] [address] PCP - General Internal Medicine 02/01/20 documented as of this encounter
--- OUTSIDE RECORDS SUMMARY | 2024-11-18 11:35 | XMS_ITS | Encounter Summary ---
Author Organization [facility] Address [address] [place] [address] Phone Care Team Providers Care Account Receivable Clerk Name Role Phone Torito Gonzalez MD Primary Care Provider [phone]- [phone] Encounter Details Date Type Department Care Team (Late st Contact Info) Description 01/14/2022 Telephone [facility] - [place] [address] [place] [address] Torito Gonzalez MD [address] [facility] [place] [address] Social History Tobacco Use Types [...] have Coronavirus / COVID-19? No / Unsure 01/14/2022 8:35 AM MANAGER COST documented as of this encounter Miscellaneous Notes * Telephone Encounter - Sol Barton RMA - 01/19/2022 2:08 PM MANAGER COST Called and spoke to patient gave results she was in full understandings . GER COST * Telephone Encounter - Chantal Randhawa RN - 01/14/2022 1:10 PM CST ----- Message from Torito Gonzalez MD sent at 01/14/2022 12:45 PM MANAGER COST ----- Cmp, lipids- okay. Cont. Current meds GER COST documented in this encounter Plan of Treatment Upcoming Encounters Date Type Department Care Team (Late st Contact Info) Description 11/19/2024 8:00 AM MANAGER COST Office Visit [facility] - Internal Medicine [facility] [address] [place] [address] Torito Gonzalez MD [address] [place] [address] documented as of this encounter Visit Diagnoses Not on filedocumented in this encounter Additional Health Concerns Assessment Noted Time PHQ-9 Depression Total Score: 0 07/14/20 21 8:00 AM CDT documented as of this encounter Care Teams Account Receivable Clerk Relationship Specialty Start Date End Date Torito Gonzalez MD [address] [place] [address] PCP - General Internal Medicine 02/01/20 documented as of this encounter
--- OUTSIDE RECORDS SUMMARY | 2024-11-18 11:35 | XMS_ITS | Encounter Summary ---
Author Organization [facility] Address [address] [place] [address] Phone Care Team Providers Care Polymer Engineer Name Role Phone Torito Gonzalez MD Primary Care Provider [phone] [phone] Reason for Visit * Reason Comments Post-Hospital Follow-up Patient had covi d Encounter Details Date Type Department Care Team ([facility] st Contact Info) Description 09/14/2022 8:45 AM CDT Office Visit [facility] - Internal Medicine - [place] [address] [facility] [id number] Torito Gonzalez MD [address] [address] Post-COVID syndrome (Primary Dx); GERD without esophagitis; Essential (primary) hypertension; Acute recurrent sinusitis, unspecified location Discharge Disposition: Discharged to home or Selfcare [...] Sign Reading Time Taken Comments Blood Pressure 116/70 09/14/2022 8:46 AM CDT Pulse 74 09/14/2022 8:46 AM CDT Temperature 36.5 ??C (97.7 ??F) 09/14/2022 8:46 AM CD T Respiratory Rate - - Oxygen Saturation 95% 09/14/2022 8:46 AM CDT Inhaled Oxygen Concentration - - Weight 59.4 kg (131 lb) 09/14/2022 8:46 AM CDT Height 165.1 cm (5' 5 ) 09/14/2022 8:46 AM CDT Body Mass Index 21.8 09/14/2022 8:46 AM CDT documented in this encounter Progress Notes * Francisca Terrazas CMA - 09/14/2022 8:45 AM CDT Body mass index is 21.8 kg/m??.. A follow-up plan for managing weight loss/underweight condition has been discussed with Gabbie Chris. The plan is as outlined in the providers's assessment and plan. * Francisca Terrazas CMA - 09/14/2022 8:45 AM CDT Gabbie Chris, 67 y.o., female is here for Post-Hospital Follow-up (Patient had covid) Medication Refills: Patient reports/denies need for medication [...] every day by oral route. Yes Provider, Historical, MD ASPIRIN PO Take 81 mg by mouth daily. Patient not taking: Reported on 09/14/2022 Provider, Not On File budesonide (PULMICORT) 0.5 MG/2ML Suspension 2 mL by Nebulization route 2 times daily. DX J44.9- COPD Patient not taking: No sig reported 06/21/22 Torito Gonzalez MD famotidine (PEPCID) 20 MG Tablet Take 20 mg by mouth. Yes Provider, MD Christie fluticasone (FLONASE) 50 MCG/ACT Suspension 1 [place] by Nasal route 2 times daily. Use in each nostril as directed. 12/16/21 Torito Gonzalez MD ipratropium-albuterol (DUO-NEB) 0.5-2.5 (3) MG/3ML Solution 3 mL by Nebulization route 4 times daily for 180 days. DX- COPD J44.9 06/21/22 12/18/22 Yes Torito Gonzalez [place] [facility] [facility] Nebulizer machine with accessories - 1 DX- COPD J44.9 Use as directed to inhale Duoneb q6hrs 06/21/22 Yes Torito Gonzalez MD There are no discontinued medications. I have reviewed the home medication list with the patient and have reconciled discrepancies. The list is accurate to the best of my knowledge. Smoking Status: Social History Tobacco Use ??? Smoking status: Former Smoker Types: Cigarettes Quit date: 12/07/2009 Years since quittin.7 ??? Smokeless tobacco: Never Used Vaping Use [...] (4 - Booster for Pfizer series) 01/06/2022 ??? Influenza Immunization (1) 07/29/2022 Orders Pended: yes The following BPA's have been addressed with the patient today: Flu and Smoking * Francisca Terrazas CMA - 09/14/2022 8:45 AM CDT Gabbie presents today for immunization/injection of Influenza, ordered by Dr. Torito Gonzalez on 09/14/2022 was administered without incident. Patient tolerated it well. See immunizations/injections activity. * Torito Gonzalez MD - 09/14/2022 8:45 AM CDT PROGRESS NOTE [facility] - INTERNAL MEDICINE [facility] [place] [address] PHONE: [phone] FAX: [phone] 09/14/2022 NAME: Gabbie Chris, : 1955, Assessment ASSESSMENT & PLAN: No follow-ups on file. Diagnoses and all orders for this visit: Post-COVID syndrome Comments: May change oxygen to during sleep time only. In gradually wean off. Continue DuoNeb and Pulmicort via nebulizer. GERD without esophagitis Comments: Increase famotidine to 20 mg b.i.d. Essential (primary) hypertension Comments: Stable. Continue current medication Acute recurrent sinusitis, unspecified location Comments: Start Levaquin 500 mg daily for 10 days. Follow-up with ENT specialist Other orders - INFLUENZA VACCINE QUAD IM - INFLUENZA IMMUNIZATION QUESTIONS - budesonide (PULMICORT) 0.5 MG/2ML Suspension; 0.5 mg by Nebulization route 2 times daily. - famotidine (PEPCID) 20 MG Tablet; Take 1 Tablet by mouth 2 times daily. - levoFLOXacin (LEVAQUIN) 500 MG Tablet; Take 1 Tablet by mouth daily for 10 days. Follow-up in 1 month, sooner if needed Chief Complaint Patient presents with ??? Post-Hospital Follow-up Patient had covid HPI Patient is here for follow-up from recent hospitalization for COVID infection. Came home about 2 weeks ago. Patient required oxygen at home. Now using oxygen only during sleep time. Now started have sinus congestion with pressure and postnasal drainage leading to chest tightness. Recently also had sinus surgery. Still feel weak, fatigued and sleepy. Tolerating medications well. Frequent heartburnin spite of taking famotidine every other day ROS Review of systems was negative, except as documented in HPI PHYSICAL EXAM VITALS: Wt Readings from Last 3 Encounters: 09/14/22 131 lb (59.4 kg) 07/05/22 138 lb (62.6 kg) 06/21/22 134 lb (60.8 kg) Temp Readings from Last 3 Encounters: 09/14/22 97.7 ??F (36.5 ??C) (Temporal) 07/05/22 97.8 ??F (36.6 ??C) (Temporal) 06/21/22 97.2 ??F (36.2 ??C) (Temporal) BP Readings from Last 3 Encounters: 09/14/22 116/70 07/05/22 110/68 06/21/22 100/66 Pulse Readings from Last 3 Encounters: 09/14/22 74 07/05/22 82 06/21/22 76 Physical Exam Vitals and nursing note reviewed. Constitutional: Appearance: Normal appearance. HENT: Head: Normocephalic. Nose: Comments: Mild tenderness or sinus area as present Eyes: Extraocular Movements: Extraocular movements intact. Conjunctiva/sclera: Conjunctivae normal. Pupils: Pupils are equal, round, and reactive to light. Cardiovascular: Rate and Rhythm: Normal rate and regular rhythm. Pulses: Normal pulses. Heart sounds: Normal heart sounds. Pulmonary: Effort: Pulmonary effort is normal. Comments: Decreased air entry both lungs. Few left basilar rales present. No wheezing. Abdominal: General: Abdomen is flat. Bowel sounds [...] ipratropium-albuterol (DUO-NEB) 0.5-2.5 (3) MG/3ML Solution ??? levoFLOXacin (LEVAQUIN) 500 MG Tablet ??? Misc. Devices Misc I educated Gabbie regarding diagnoses and plan of care. She verbalizes understanding and will call the office if situation changes. Voice recognition software was utilized in this dictation. Despite proof reading, typographical errors and/or content errors may have occurred. By: Torito Gonzalez MD 09/14/2022 9:34 AM CDT documented in this encounter Plan of Treatment Upcoming Encounters Date Type Department Care Team (Late st Contact Info) Description 11/19/2024 8:00 AM SERVICE ORDER EXPEDITER Office Visit [facility] - Internal Medicine [facility] [address] [place] [address] Torito Gonzalez MD [address] [place] [address] documented as of this encounter Visit Diagnoses Diagnosis Post-COVID syndrome- Primary GERD without esophagitis Esophageal reflux Essential (primary) hypertension Unspecified essential hypertension Acute recurrent sinusitis, unspecified location documented in this encounter Additional Health Concerns Assessment Noted Time PHQ-9 Depression Total Score: 0 07/14/20 21 8:00 AM CDT documented as of this encounter Care Teams Polymer Engineer Relationship Specialty Start Date End Date Torito Gonzalez MD [address] [place] [address] PCP - General Internal Medicine 02/01/20 documented as of this encounter
--- OUTSIDE RECORDS SUMMARY | 2024-11-18 11:35 | XMS_ITS | Encounter Summary ---
Author Organization [employer] Care Team Providers Care Database Design Analyst Name Role Phone Torito Gonzalez MD Primary Care Provider [phone] Encounter Details Date Type Department Care Team (Latest Contact Info) Description 06/21/2022 Travel Social History Tobacco Use Types Packs/Day [...] st Contact Info) Description 11/19/2024 8:00 AM PATRON ATTENDANT Office Visit [facility] - Internal Medicine - [place] [address] [place] [address] Torito Gonzalez MD [address] [place] [address] documented as of this encounter Visit Diagnoses Not on filedocumented in this encounter Additional Health Concerns Assessment Noted Time PHQ-9 Depression Total Score: 0 07/14/20 21 8:00 AM CDT documented as of this encounter Care Teams Database Design Analyst Relationship Specialty Start Date End Date Torito Gonzalez MD [address] [place] [address] PCP - General Internal Medicine 02/01/20 documented as of this encounter
--- OUTSIDE RECORDS SUMMARY | 2024-11-18 11:35 | XMS_ITS | Encounter Summary ---
Author Organization [facility] Address [address] [place] [address] Phone Care Team Providers Care Global Climate Change Analyst Name Role Phone Torito Gonzalez MD Primary Care Provider [phone] Reason for Visit * Reason Onset Date Comments Results 06/21/2022 CXR Encounter Details Date Type Department Care Team ([facility] st Contact Info) Description 06/21/2022 Telephone [facility] - Internal Medicine - [place] [address] [place] [address] Torito Gonzalez MD [address] [place] [address] Results (CXR) Social History Tobacco Use Types Packs/Day Years [...] Telephone Encounter - Chantal Randhawa RN - 06/25/2022 1:37 PM CDT Phoned patient with CXR results. Patient aware and verbalized understanding. * Telephone Encounter - Chantal Randhawa RN - 06/21/2022 4:22 PM CDT ----- Message from Torito Gonzalez MD sent at 06/21/2022 4:00 PM CDT ----- Chest [id number] changes. No nodule or pneumonia documented in this encounter Plan of Treatment Upcoming Encounters Date Type Department Care Team (Late st Contact Info) Description 11/19/2024 8:00 AM BATTER SCALER Office Visit [facility] - Internal Medicine [facility] [address] [place] [address] Torito Gonzalez MD [address] [place] [address] documented as of this encounter Visit Diagnoses Not on filedocumented in this encounter Additional Health Concerns Assessment Noted Time PHQ-9 Depression Total Score: 0 07/14/20 21 8:00 AM CDT documented as of this encounter Care Teams Global Climate Change Analyst Relationship Specialty Start Date End Date Torito Gonzalez MD [address] [place] [address] PCP - General Internal Medicine 02/01/20 documented as of this encounter
--- OUTSIDE RECORDS SUMMARY | 2024-11-18 11:35 | XMS_ITS | Encounter Summary ---
Author Organization [facility] Address [address] [place] [address] Phone Care Team Providers Care Farm Operator Name Role Phone Torito Gonzalez MD Primary Care Provider [phone] Reason for Referral * Radiology Services (Routine) - Closed Specialty Diagnoses / Procedures Referred By Turner ramirez Referred To Contact Radiology Diagnoses Chronic sinusitis, unspecified location Procedures CT SINUSES W/O CONTRAST eNd Philip MD [address] [facility] [address] [address] [place] [address] Phone: tel: fax: Referral ID Status Reason Start Date Expiration Date Visits Re quested Visits Authorized [id number] Closed 02/18/2022 1 1 Reason for Visit * Radiology Services (Routine) - Closed Specialty Diagnoses / Procedures Referred By Turner ramirez Referred To Contact Radiology Diagnoses Chronic sinusitis, unspecified location Procedures CT SINUSES W/O CONTRAST Ned Philip MD [address] [facility] [address] [place] [address] Phone: tel: fax: Referral ID Status Reason Start Date Expiration Date Visits Re quested Visits Authorized [id number] Closed 02/18/2022 1 1 Encounter Details Date Type Department Care Team (Latest Contact Info) Description 02/20/2022 6:23 AM CDT - 02/20/2022 11:59 PM CDT Hospital Encounter [facility] [address] [place] [address] Ned Philip MD [address] [place] [address] Discharge Disposition: Discharged to home or Selfcare [...] this encounter Medications at Time of Discharge amLODIPine (NORVASC) 5 MG Tablet Take 5 mg by mouth daily. albuterol 108 (90 Base) MCG/ACT Aerosol Solution take 1-2 Puffs by inhalation every 6 hours as needed for Wheezing. 8 g 02/02/2022 2 ASPIRIN PO Take 81 mg by mouth daily. 2 famotidine (PEPCID) 20 MG Tablet Take 20 mg by mouth. 2 fluticasone (FLONASE) 50 MCG/ACT Suspension 1 [place] by Nasal route 2 times daily. Use in each nostril as directed. 16 g 5 12/16/2021 3 predniSONE (DELTASONE) 20 MG Tablet Take 1 Tablet by mouth daily. 7 Tablet 02/02/2022 2 documented as of this encounter Plan of Treatment Upcoming Encounters Date Type Department Care Team (Late st Contact Info) Description 11/19/2024 8:00 AM TURNTABLE OPERATOR Office Visit [facility] - Internal Medicine - [place] [address] [place] [address] Torito Gonzalez MD [address] [place] [address] documented as of this encounter Procedures Procedure Name Priority Date/Time Associated Diagnosis Comments CT SINUSES W/O CONTRAST Routine 02/20/2022 6:43 AM CDT Chronic sinusitis, unspecified location documented in this encounter Results * CT SINUSES W/O CONTRAST (02/20/2022 6:43 AM CDT) Anatomical Region Laterality Modality Head N/A Computed Tomogra phy 02/20/2022 11:3 8 AM CDT Impressions 02/20/2022 11:42 AM CDT IMPRESSION: ?? 1. ?? Maxillary, ethmoid, sphenoid and minimally frontal sinus disease. 2. ?? Right temporomandibular joint osteoarthritis. Narrative 02/20/2022 11:42 AM CDT EXAM DESCRIPTION: ?? CT SINUSES W/O CONTRAST REASON FOR STUDY: ?? Chronic sinusitis, unspecified TECHNIQUE: Noncontrast scanning through the paranasal sinuses using bone algorithm. ??Reconstructed MPR images reviewed. All images stored on PACS. ??Automated exposure control was used as a dose optimization technique for this examination. COMPARISON: ?? No available comparison studies FINDINGS: MAXILLARY SINUSES: ??Mucosal thickening circumferentially with polypoid mucosal thickening in the floor the right maxillary sinus. ??There are lace-like strands of mucosal thickening in both maxillary sinuses. ??No air-fluid levels. ?? ETHMOID AND FRONTAL SINUSES: ?? Extensive mucosal thickening in the ethmoid sinuses that extends into the frontal recesses. ??The majority of the frontal sinuses is clear. SPHENOID SINUS: ?? Minimal mucosal thickening in the sphenoid sinuses, right greater than left. ?? NASAL CAVITY: ?? There is a rightward projecting spur with minimal deviation of the septum towards the right without causing substantial airway narrowing. ?? The turbinates are normal. ORBITS: ?? Unremarkable with no mass or inflammatory changes. TMJS: ?? Mild osteoarthritis of the right temporomandibular joint with remodeling and sclerosis and small osteophytes at the mandibular condyle. ??The left temporomandibular joint is nearly normal. MASTOIDS: ?? Well-aerated. IACs symmetric, grossly normal. BRAIN: ?? Limited view. No acute findings. OTHER: ?? No other significant finding. THIS IS AN ELECTRONICALLY VERIFIED FINAL REPORT 02/20/2022 11:38 AM - Electronically signed by ??King ABARCA: TEVIN D: ??02/20/2022 11:38 AM T: ??02/20/2022 11:38 AM Report ID: [id number] Reading Location: ??[id number] Procedure Note King Zhong MD - 02/20/2022 EXAM DESCRIPTION: CT SINUSES W/O CONTRAST REASON FOR STUDY: Chronic sinusitis, unspecified TECHNIQUE: Noncontrast scanning through the paranasal sinuses using bone algorithm. Reconstructed MPR images reviewed. All images stored on PACS. Automated exposure control was used as a dose optimization technique for this examination. COMPARISON: No available comparison studies FINDINGS: MAXILLARY SINUSES: Mucosal thickening circumferentially with polypoid mucosal thickening in the floor the right maxillary sinus. There are lace-like strands of mucosal thickening in both maxillary sinuses. No air-fluid levels. ETHMOID AND FRONTAL SINUSES: Extensive mucosal thickening in the ethmoid sinuses that extends into the frontal recesses. The majority of the frontal sinuses is clear. SPHENOID SINUS: Minimal mucosal thickening in the sphenoid sinuses, right greater than left. NASAL CAVITY: There is a rightward projecting spur with minimal deviation of the septum towards the right without causing substantial airway narrowing. The turbinates are normal. ORBITS: Unremarkable with no mass or inflammatory changes. TMJS: Mild osteoarthritis of the right temporomandibular joint with remodeling and sclerosis and small osteophytes at the mandibular condyle. The left temporomandibular joint is nearly normal. MASTOIDS: Well-aerated. IACs symmetric, grossly normal. BRAIN: Limited view. No acute findings. OTHER: No other significant finding. THIS IS AN ELECTRONICALLY VERIFIED FINAL REPORT 02/20/2022 11:38 AM - Electronically signed by King ABARCA: TEVIN Report ID: [id number] Reading Location: [id number] IMPRESSION: 1. Maxillary, ethmoid, sphenoid and minimally frontal sinus disease. 2. Right temporomandibular joint osteoarthritis. us Ned Philip MD IMG CT ORDERABLES Final Resul t documented in this encounter Visit Diagnoses Diagnosis Chronic sinusitis, unspecified location documented in this encounter Additional Health Concerns Assessment Noted Time PHQ-9 Depression Total Score: 0 07/14/20 21 8:00 AM CDT documented as of this encounter Care Teams Farm Operator Relationship Specialty Start Date End Date Torito Gonzalez MD [address] [place] [address] PCP - General Internal Medicine 02/01/20 documented as of this encounter
--- OUTSIDE RECORDS SUMMARY | 2024-11-18 11:35 | XMS_ITS | Encounter Summary ---
Author Organization [facility] Address [address] [place] [address] Phone Care Team Providers Care Director Of Real Estate Name Role Phone Torito Gonzalez MD Primary Care Provider [phone] Reason for Visit * Reason Onset Date Comments Medication Management 05/11/2022 Encounter Details Date Type Department Care Team (Late st Contact Info) Description 05/11/2022 Telephone [facility] - Internal Medicine - [place] [address] [place] [address] Torito Gonzalez MD [address] [place] [address] Medication Management Social History Tobacco Use Types Packs/Day [...] Telephone Encounter - Pattie Kidd RN - 05/11/2022 10:49 AM CDT Pt aware of Rx sent and verbalizes understanding * Telephone Encounter - Torito Gonzalez MD - 05/11/2022 10:37 AM CDT Symbicort 160-4.5 rx sent to replace Advair * Telephone Encounter - Pattie Kidd RN - 05/11/2022 10:18 AM CDT ----- Message from February sent at 05/11/2022 10:07 AM CDT ----- Regarding: PATIENT MEDICAL QUESTION Please prescribe alternate medication. Patient went to apple picking supervisor the prescription for Advair and it was over $400.00 so she did not get it and asked if there is a generic Pharmacy: [facility] [address] [place] [id number] documented in this encounter Plan of Treatment Upcoming Encounters Date Type Department Care Team (Late st Contact Info) Description 11/19/2024 8:00 AM HEALTHCARE ADMINISTRATION INTERN Office Visit [facility] - Internal Medicine - [place] [address] [place] [id number] Torito Gonzalez MD [address] [place] [address] documented as of this encounter Visit Diagnoses Not on filedocumented in this encounter Additional Health Concerns Assessment Noted Time PHQ-9 Depression Total Score: 0 07/14/20 8:00 AM CDT documented as of this encounter Care Teams Director Of Real Estate Relationship Specialty Start Date End Date Torito Gonzalez MD [address] [place] [address] PCP - General Internal Medicine 02/01/20 documented as of this encounter
--- OUTSIDE RECORDS SUMMARY | 2024-11-18 11:35 | XMS_ITS | Encounter Summary ---
Author Organization [employer] Care Team Providers Care Acid Strength Inspector Name Role Phone Torito Gonzalez MD Primary Care Provider [phone] Encounter Details Date Type Department Care Team (Latest Contact Info) Description 09/14/2022 Travel Social History Tobacco Use Types Packs/Day [...] st Contact Info) Description 11/19/2024 8:00 AM IT COMMUNICATIONS MANAGER Office Visit [facility] - Internal Medicine - [place] [address] [place] [address] Torito Gonzalez MD [address] [place] [address] documented as of this encounter Visit Diagnoses Not on filedocumented in this encounter Additional Health Concerns Assessment Noted Time PHQ-9 Depression Total Score: 0 07/14/20 21 8:00 AM CDT documented as of this encounter Care Teams Acid Strength Inspector Relationship Specialty Start Date End Date Torito Gonzalez MD [address] [place] [address] PCP - General Internal Medicine 02/01/20 documented as of this encounter
--- OUTSIDE RECORDS SUMMARY | 2024-11-18 11:35 | XMS_ITS | Encounter Summary ---
Author Organization [facility] Address [address] [place] [address] Phone Care Team Providers Care Extended Day Teacher Name Role Phone Torito Gonzalez MD Primary Care Provider [phone] Reason for Visit * Reason Comments Cough Heaviness in chest Wheezing Encounter Details Date Type Department Care Team (Late st Contact Info) Description 02/02/2022 3:15 PM STOCKING INSPECTOR Office Visit [facility] - Internal Medicine - [place] [address] [place] [phone] Torito Gonzalez MD [address] [place] [address] Acute bronchitis, unspecified organism (Primary Dx) Discharge Disposition: Discharged to home [...] COVID-19? No / Unsure 02/02/2022 2:54 PM STOCKING INSPECTOR documented as of this encounter Last Filed Vital Signs Vital Sign Reading Time Taken Comments Blood Pressure 130/74 02/02/2022 2:56 PM STOCKING INSPECTOR Pulse 68 02/02/2022 2:56 PM STOCKING INSPECTOR Temperature 36.3 ??C (97.3 ??F) 02/02/2022 2:56 PM CS T Respiratory Rate - - Oxygen Saturation 98% 02/02/2022 2:56 PM STOCKING INSPECTOR Inhaled Oxygen Concentration - - Weight 65.3 kg (144 lb) 02/02/2022 2:56 PM STOCKING INSPECTOR Height 165.1 cm (5' 5 ) 02/02/2022 2:56 PM STOCKING INSPECTOR Body Mass Index 23.96 02/02/2022 2:56 PM STOCKING INSPECTOR documented in this encounter Progress Notes * Francisca Terrazas CMA - 02/02/2022 3:15 PM CST Gabbie Chris, 66 y.o., female is here for Cough (Heaviness in chest) and Wheezing Medication Refills: Patient reports/denies need for medication refills. Orders Pended: no Requested Prescriptions No prescriptions requested or ordered in this encounter Home Medications Medication Sig Start Date End Date Taking? Authorizing Provider amLODIPine (NORVASC) 5 MG Tablet Take 5 mg by mouth daily. Yes Provider, Not On File ASPIRIN PO Take 81 mg by mouth daily. Yes Provider, Not On File famotidine (PEPCID) 20 MG Tablet Take 20 mg by mouth. Yes Provider, MD Christie fluticasone (FLONASE) 50 MCG/ACT Suspension 1 [place] by Nasal route 2 times daily. Use in each nostril as directed. 12/16/21 Yes Torito Gonzalez MD There are no discontinued medications. I have reviewed the home medication list with the patient and have reconciled discrepancies. The list is accurate to the best of my knowledge. Smoking Status: Social History Tobacco Use ??? Smoking status: Former Smoker Types: Cigarettes Quit date: 12/07/2009 Years since quittin.1 ??? Smokeless tobacco: Never Used Vaping Use ??? Vaping Use: Never used Substance Use Topics ??? Alcohol use: Not Currently ??? Drug use: Never Smoking Cessation Counseling Given: no Health Care Maintenance: Health Maintenance Due Topic Date Due ??? DTaP/Tdap/Td Immunization (1 - Tdap) Never done ??? Zoster Immunization (1 of 2) Never done ??? Pneumococcal Immunization (65+ years) (1 of 1 - PPSV23) Never done ??? Colorectal Cancer Screening 09/02/2021 Orders Pended: yes The following BPA's have been addressed with the patient today: Colonoscopy and Smoking KING INSPECTOR * Torito Gonzalez MD - 02/02/2022 3:15 PM CST PROGRESS NOTE [facility] - INTERNAL MEDICINE [address] [place] [address] PHONE: [phone] FAX: [phone] 02/02/2022 NAME: Gabbie Chris, : 1955, Assessment ASSESSMENT & PLAN: Return if symptoms worsen or fail to improve. Diagnoses and all orders for this visit: Acute bronchitis, unspecified organism Other orders - clarithromycin (BIAXIN) 500 MG Tablet; Take 1 Tablet by mouth 2 times daily for 7 days. - predniSONE (DELTASONE) 20 MG Tablet; Take 1 Tablet by mouth daily. - albuterol 108 (90 Base) MCG/ACT Aerosol Solution; take 1-2 Puffs by inhalation every 6 hours as needed for Wheezing. Will treat with clarithromycin, prednisone and p.r.n. albuterol. If no improvement after 1 week will do chest x-ray. If symptoms get worse give us a call or go to ER Chief Complaint Patient presents with ??? Cough Heaviness in chest ??? Wheezing HPI Patient is here with complain of chest congestion cough and heaviness in chest after coughing spells. Symptoms started about 10 days ago. Denies any sore throat, fever chills. Off and on wheezing. Continue have postnasal drainage. OTC medications not helping. ROS Review of systems was negative, except as documented in HPI PHYSICAL EXAM VITALS: Wt Readings from Last 3 Encounters: 02/02/22 144 lb (65.3 kg) 01/14/22 148 lb (67.1 kg) 12/16/21 147 lb 1.6 oz (66.7 kg) Temp Readings from Last 3 Encounters: 02/02/22 97.3 ??F (36.3 ??C) (Temporal) 01/14/22 98.8 ??F (37.1 ??C) (Temporal) 12/16/21 97.6 ??F (36.4 ??C) (Temporal) BP Readings from Last 3 Encounters: 02/02/22 130/74 01/14/22 130/76 12/16/21 114/80 Pulse Readings from Last 3 Encounters: 02/02/22 68 01/14/22 58 12/16/21 75 Physical Exam Vitals and nursing note reviewed. Constitutional: Appearance: Normal appearance. Eyes: Conjunctiva/sclera: Conjunctivae normal. Pupils: Pupils are equal, round, and reactive to light. Cardiovascular: Rate and Rhythm: Normal rate and regular rhythm. Pulses: Normal pulses. Heart sounds: Normal heart sounds. Comments: No peripheral edema Pulmonary: Comments: Bilateral rhonchi present. Mild expiratory wheezing at times. Few rales in the left basalarea present Neurological: Mental Status: She is alert. Past medical, surgical, social and family history [...] ??? fluticasone (FLONASE) 50 MCG/ACT Suspension ??? predniSONE (DELTASONE) 20 MG Tablet I educated Gabbie regarding diagnoses and plan of care. She verbalizes understanding and will call the office if situation changes. Voice recognition software was utilized in this dictation. Despite proof reading, typographical errors and/or content errors may have occurred. By: Torito Gonzalez MD 02/02/2022 3:20 PM STOCKING INSPECTOR KING INSPECTOR documented in this encounter Plan of Treatment Upcoming Encounters Date Type Department Care Team (Late st Contact Info) Description 11/19/2024 8:00 AM STOCKING INSPECTOR Office [facility] - Internal Medicine - [place] [address] [place] [address] Torito Gonzalez MD [address] [place] [address] documented as of this encounter Visit Diagnoses Diagnosis Acute bronchitis, unspecified organism- Primary documented in this encounter Additional Health Concerns Assessment Noted Time PHQ-9 Depression Total Score: 0 07/14/20 21 8:00 AM CDT documented as of this encounter Care Teams Extended Day Teacher Relationship Specialty Start Date End Date Torito Gonzalez MD [address] [place] [address] PCP - General Internal Medicine 02/01/20 documented as of this encounter
--- OUTSIDE RECORDS SUMMARY | 2024-11-18 11:35 | XMS_ITS | Encounter Summary ---
Author Organization [facility] Address [address] [place] [address] Phone Care Team Providers Care Lacquer Shader Name Role Phone Torito Gonzalez MD Primary Care Provider [phone] Reason for Referral * Consult, Test & Initiate Treatment (Routine) - Closed Specialty Diagnoses / Procedures Referred By Turner ramirez Referred To Contact Sleep Center Diagnoses Observed sleep apnea Snoring Torito Gonazlez MD [address] [place] [address] Phone: tel: fax: [facility] [address] [place] [phone] Phone: tel: fax: Referral ID Status Reason Start Date Expiration Date Visits Re quested Visits Authorized [id number] Closed 10/07/2022 1 1 Scheduling Instructions Gabbie is being referred for split sleep study Please contact patient for scheduling questions or concerns. CE ENGINEER * Consult, Test & Initiate Treatment (Routine) - Closed Specialty Diagnoses / Procedures Referred By Turner ramirez Referred To Contact Pulmonology Diagnoses Centrilobular emphysema (HCC) Torito Gonzalez MD [address] [place] [address] Phone: tel: fax: [facility] - Pulmonology & Sleep Medicine [facility] [address] [place] [address] Phone: tel: fax: Referral ID Status Reason Start Date Expiration Date Visits Re quested Visits Authorized [id number] Closed 10/07/2022 1 1 Scheduling Instructions Gabbie is being referred for copd and possible TOOTIE Please contact patient for scheduling questions or concerns. CE ENGINEER Reason for Visit * Reason Comments COPD 3 mo f/u Encounter Details Date Type Department Care Team (Late st Contact Info) Description 10/07/2022 8:15 AM DEVICE ENGINEER Office Visit [facility] - Internal Medicine - [place] [address] [place] [phone] Torito Gonzalez MD [address] [place] [address] Centrilobular emphysema (HCC) (Primary Dx); Observed sleep apnea; Snoring; Encounter for immunization; Allergic rhinitis due to other allergic trigger, unspecified seasonality Discharge Disposition: Discharged to home or Selfcare [...] Coronavirus/COVID-19? No / Unsure 10/07/2022 7:47 AM DEVICE ENGINEER documented as of this encounter Last Filed Vital Signs Vital Sign Reading Time Taken Comments Blood Pressure 114/70 10/07/2022 8:01 AM DEVICE ENGINEER Pulse 80 10/07/2022 8:01 AM DEVICE ENGINEER Temperature 36.5 ??C (97.7 ??F) 10/07/2022 8:01 AM CS T Respiratory Rate - - Oxygen Saturation 96% 10/07/2022 8:01 AM DEVICE ENGINEER Inhaled Oxygen Concentration - - Weight 60.3 kg (133 lb) 10/07/2022 8:01 AM DEVICE ENGINEER Height 165.1 cm (5' 5 ) 10/07/2022 8:01 AM DEVICE ENGINEER Body Mass Index 22.13 10/07/2022 8:01 AM DEVICE ENGINEER documented in this encounter Progress Notes * Francisca Terrazas, JACOBO - 10/07/2022 8:15 AM CST Gabbie Chris, 67 y.o., female is here for COPD (3 mo f/u) Medication Refills: Patient reports/denies [...] by oral route. Yes Provider, MD Christie budesonide (PULMICORT) 0.5 MG/2ML Suspension 0.5 mg by Nebulization route 2 times daily. Yes Provider, MD Christie famotidine (PEPCID) 20 MG Tablet Take 1 Tablet by mouth 2 times daily. 09/14/22 Yes Torito Gonzalez MD fluticasone (FLONASE) 50 MCG/ACT Suspension 1 [place] by Nasal route 2 times daily. Use in each nostril as directed. 12/16/21 Yes Torito Gonzalez MD ipratropium-albuterol (DUO-NEB) 0.5-2.5 (3) MG/3ML Solution 3 mL by Nebulization route 4 times daily for 180 days. DX- COPD J44.9 06/21/22 12/18/22 Yes Torito Gonzalez MD Misc. Devices Misc Nebulizer machine with accessories [...] Cigarettes Quit date: 12/07/2009 Years since quittin.8 ??? Smokeless tobacco: Never Used Vaping Use [...] been addressed with the patient today: Smoking CE ENGINEER * Francisca Terrazas CMA - 10/07/2022 8:15 AM CST Gabbie presents today for immunization/injection of Prevnar 20, ordered by Dr. Torito Gonzalez on 10/07/2022 was administered without incident. Patient tolerated it well. See immunizations/injections activity. CE ENGINEER * Torito Gonzalez MD - 10/07/2022 8:15 AM CST PROGRESS NOTE [facility] - [place] [address] PHONE: [phone] FAX: [phone] 10/07/2022 NAME: Gabbie Chris, : 1955, Assessment ASSESSMENT & PLAN: Return in about 3 months (around 01/07/2023) for copd. Diagnoses and all orders for this visit: Centrilobular emphysema (HCC) Comments: Patient continue have cough with wheezing. Will add Brovana via nebulizer twice a day. Orders: - PULMONARY REFERRAL; Future Observed sleep apnea Comments: Set up for split sleep study Orders: - SLEEP STUDY REFERRAL; Future Snoring - SLEEP STUDY REFERRAL; Future Encounter for immunization - PNEUMOCOCCAL CONJUGATE VACCINE (PCV20) IM - PCV-20 IMMUNIZATION QUESTIONS Allergic rhinitis due to other allergic trigger, unspecified seasonality Comments: Continue fluticasone. Will add azelastine nasal spray. follow-up with ENT specialist Other orders - arformoterol tartrate (BROVANA) 15 MCG/2ML Nebulizer Soln; 15 mcg by Nebulization route 2 times daily. - azelastine (ASTELIN) 0.1 % Solution; 2 Sprays by Nasal route 2 times daily. Use in each nostril as directed - predniSONE (DELTASONE) 10 MG Tablet; Take 1 Tablet by mouth daily. Refer to weight and test bar clerk for COPD Will give Prevnar 20 vaccine today Follow-up in 3 months, sooner if needed Chief Complaint Patient presents with ??? COPD 3 mo f/u HPI Patient is here for follow-up for COPD. Continue have off and on coughing with wheezing. Has been using DuoNeb 4 times a day and Pulmicort via nebulizer twice a day. No chest pain or palpitation. Also concern about sleep apnea. has noticed that patient does stop breathing at times. She also snores loudly. ROS Review of systems was negative, except as documented in HPI PHYSICAL EXAM VITALS: Wt Readings from Last 3 Encounters: 10/07/22 133 lb (60.3 kg) 09/14/22 131 lb (59.4 kg) 07/05/22 138 lb (62.6 kg) Temp Readings from Last 3 Encounters: 10/07/22 97.7 ??F (36.5 ??C) (Temporal) 09/14/22 97.7 ??F (36.5 ??C) (Temporal) 07/05/22 97.8 ??F (36.6 ??C) (Temporal) BP Readings from Last 3 Encounters: 10/07/22 114/70 09/14/22 116/70 07/05/22 110/68 Pulse Readings from Last 3 Encounters: 10/07/22 80 09/14/22 74 07/05/22 82 Physical Exam Vitals and nursing note reviewed. Constitutional: Appearance: Normal appearance. HENT: Head: Normocephalic. Eyes: Extraocular Movements: Extraocular movements intact. Conjunctiva/sclera: Conjunctivae normal. Pupils: Pupils are equal, round, and reactive to light. Cardiovascular: Rate and Rhythm: Normal rate and regular rhythm. Pulses: Normal pulses. Heart sounds: Normal heart sounds. Pulmonary: Effort: Pulmonary effort is normal. Comments: Decreased air entry both lungs. Mild expiratory wheezing at basal areas present Musculoskeletal: General: Normal range of motion. Cervical [...] ??? amLODIPine (NORVASC) 5 MG Tablet ??? arformoterol tartrate (BROVANA) 15 MCG/2ML Nebulizer Soln ??? aspirin 81 MG Chewable Tablet ??? azelastine (ASTELIN) 0.1 % Solution ??? budesonide (PULMICORT) 0.5 MG/2ML Suspension ??? famotidine (PEPCID) 20 MG Tablet ??? fluticasone (FLONASE) 50 MCG/ACT Suspension ??? ipratropium-albuterol (DUO-NEB) 0.5-2.5 (3) MG/3ML Solution ??? Misc. Devices Misc ??? predniSONE (DELTASONE) 10 MG Tablet I educated Gabbie regarding diagnoses and plan of care. She verbalizes understanding and will call the office if situation changes. Voice recognition software was utilized in this dictation. Despite proof reading, typographical errors and/or content errors may have occurred. By: Torito Gonzalez MD 10/07/2022 8:47 AM DEVICE ENGINEER CE ENGINEER documented in this encounter Plan of Treatment Upcoming Encounters Date Type Department Care Team (Late st Contact Info) Description 11/19/2024 8:00 AM DEVICE ENGINEER Office Visit [facility] - Internal Medicine [facility] [address] [place] [address] Torito Gonzalez MD [address] [place] [address] Scheduled Referrals Name Type Priority Associated Diagnoses Orde r Schedule PULMONARY REFERRAL Outpatient Referral Routine Centrilobular emphysema (HCC) Expected: 10/07/2022, Expires: 10/07/2023 SLEEP STUDY REFERRAL Outpatient Referral Routine Observed sleep apnea Snoring Expected: 10/07/2022, Expires: 01/07/2023 documented as of this encounter Visit Diagnoses Diagnosis Centrilobular emphysema (HCC)- Primary Other emphysema Observed sleep apnea Unspecified sleep apnea Snoring Other dyspnea and respiratory abnormality Encounter for immunization Need for other specified prophylactic vaccination against single bacterial disease Allergic rhinitis due to other allergic trigger, unspecified seasonality documented in this encounter Additional Health Concerns Assessment Noted Time PHQ-9 Depression Total Score: 0 07/14/20 21 8:00 AM CDT documented as of this encounter Care Teams Lacquer Shader Relationship Specialty Start Date End Date Torito Gonzalez MD [address] [place] [address] PCP - General Internal Medicine 02/01/20 documented as of this encounter
--- OUTSIDE RECORDS SUMMARY | 2024-11-18 11:35 | XMS_ITS | Encounter Summary ---
Author Organization [employer] Care Team Providers Care Welding Equipment Sales Representative Name Role Phone Torito Gonzalez MD Primary Care Provider [phone] Encounter Details Date Type Department Care Team (Latest Contact Info) Description 05/10/2022 Travel Social History Tobacco Use Types Packs/Day [...] st Contact Info) Description 11/19/2024 8:00 AM CERTIFIED ADAPTIVE PHYSICAL EDUCATOR Office Visit [facility] - Internal Medicine - [place] [address] [place] [address] Torito Gonzalez MD [address] [place] [address] documented as of this encounter Visit Diagnoses Not on filedocumented in this encounter Additional Health Concerns Assessment Noted Time PHQ-9 Depression Total Score: 0 07/14/20 21 8:00 AM CDT documented as of this encounter Care Teams Welding Equipment Sales Representative Relationship Specialty Start Date End Date Torito Gonzalez MD [address] [place] [address] PCP - General Internal Medicine 02/01/20 documented as of this encounter
--- OUTSIDE RECORDS SUMMARY | 2024-11-18 11:35 | XMS_ITS | Encounter Summary ---
Author Organization [facility] Address [address] [place] [address] Phone Care Team Providers Care Collection Systems Modeler Name Role Phone Torito Gonzalez MD Primary Care Provider [phone]- [phone] Reason for Referral * Radiology Services (Routine) - Closed Specialty Diagnoses / Procedures Referred By Contac t Referred To Contact Radiology Diagnoses Cough Procedures XR CHEST 2 VIEWS Torito Gonzalez MD [address] [place] [address] Phone: tel: fax: Referral ID Status Reason Start Date Expiration Date Visits Re quested Visits Authorized [id number] Closed 06/21/2022 1 1 Reason for Visit * Reason Comments Cough Over 2 weeks- no bet ter Encounter Details Date Type Department Care Team (Late st Contact Info) Description 06/21/2022 8:30 AM CDT Office Visit [facility] - Internal Medicine - [place] [address] [place] [id number] Torito Gonzalez MD [address] [place] [address] COPD with acute exacerbation (HCC) (Primary Dx); Cough; Essential (primary) hypertension Discharge Disposition: Discharged to [...] Sign Reading Time Taken Comments Blood Pressure 100/66 06/21/2022 8:15 AM CDT Pulse 76 06/21/2022 8:15 AM CDT Temperature 36.2 ??C (97.2 ??F) 06/21/2022 8:15 AM CD T Respiratory Rate - - Oxygen Saturation 93% 06/21/2022 8:15 AM CDT Inhaled Oxygen Concentration - - Weight 60.8 kg (134 lb) 06/21/2022 8:15 AM CDT Height 165.1 cm (5' 5 ) 06/21/2022 8:15 AM CDT Body Mass Index 22.3 06/21/2022 8:15 AM CDT documented in this encounter Progress Notes * Francisca Trerazas, CREAM CHEESE MAKER - 06/21/2022 8:30 AM CDT Gabbie Chris, 67 y.o., female is here for Cough (Over 2 weeks- no better) Medication Refills: Patient reports/denies need for medication refills. Orders Pended: no Requested Prescriptions No prescriptions requested or ordered in this encounter Home Medications Medication Sig Start Date End Date Taking? Authorizing Provider albuterol 108 (90 Base) MCG/ACT Aerosol Solution take 1-2 Puffs by inhalation every 6 hours as needed for Wheezing. 05/10/22 Yes Torito Gonzalez MD amLODIPine (NORVASC) 5 MG Tablet Take 5 mg by mouth daily. Yes Provider, Not On File ASPIRIN PO Take 81 mg by mouth daily. Yes Provider, Not On File budesonide-formoterol fumarate (Symbicort) 160-4.5 MCG/ACT Aerosol take 2 Puffs by inhalation 2 times daily. Patient not taking: Reported on 06/21/2022 05/11/22 Torito Gonzalez MD famotidine (PEPCID) 20 MG Tablet Take 20 mg by mouth. Yes Provider, MD Christie fluticasone (FLONASE) 50 MCG/ACT Suspension 1 [place] by Nasal route 2 times daily. Use in each nostril as directed. 12/16/21 Yes Torito Gonzalez MD predniSONE (DELTASONE) 20 MG Tablet Take 1 Tablet by mouth daily. 05/10/22 Yes Torito Gonzalez MD There are no [...] today: Smoking * Torito Gonzalez MD - 06/21/2022 8:30 AM CDT PROGRESS NOTE [facility] - INTERNAL MEDICINE [address] [place] [address] PHONE: [phone] FAX: [phone] 06/21/2022 NAME: Gabbie Chris, : 1955, Assessment ASSESSMENT & PLAN: Return in about 2 weeks (around 07/05/2022) for copd. Diagnoses and all orders for this visit: COPD with acute exacerbation (HCC) Comments: Patient could not afford Advair or Symbicort. So will start DuoNeb and Pulmicort via nebulizer. Prednisone 20 mg daily for 7 days. Cough Comments: Will do chest x-ray Orders: - XR CHEST 2 VIEWS; Future Essential (primary) hypertension Comments: Stable. Continue current medication Other orders - Misc. Devices Misc; Nebulizer machine with accessories - 1 DX- COPD J44.9 Use as directed to inhale Duoneb q6hrs - ipratropium-albuterol (DUO-NEB) 0.5-2.5 (3) MG/3ML Solution; 3 mL by Nebulization route 4 times daily for 180 days. DX- COPD J44.9 - budesonide (PULMICORT) 0.5 MG/2ML Suspension; 2 mL by Nebulization route 2 times daily. DX J44.9-COPD - predniSONE (DELTASONE) 20 MG Tablet; Take 1 Tablet by mouth daily. - albuterol 108 (90 Base) MCG/ACT Aerosol Solution; take 1-2 Puffs by inhalation every 6 hours as needed for Wheezing. Follow-up in 2 weeks, sooner if needed Chief Complaint Patient presents with ??? Cough Over 2 weeks- no better HPI Patient is here for follow-up for coughing and shortness of breath. Continue to feel short of breath. Continue have wheezing and coughing spell. Could not afford Symbicort or Advair inhaler. Using albuterol as needed which helps low bed. Feels tired. No abdominal pain nausea vomiting. No fever chills or rigors ROS Review of systems was negative, except as documented in HPI PHYSICAL EXAM VITALS: Wt Readings from Last 3 Encounters: 06/21/22 134 lb (60.8 kg) 05/10/22 139 lb (63 kg) 02/02/22 144 lb (65.3 kg) Temp Readings from Last 3 Encounters: 06/21/22 97.2 ??F (36.2 ??C) (Temporal) 05/10/22 97.5 ??F (36.4 ??C) (Temporal) 02/02/22 97.3 ??F (36.3 ??C) (Temporal) BP Readings from Last 3 Encounters: 06/21/22 100/66 05/10/22 132/80 02/02/22 130/74 Pulse Readings from Last 3 Encounters: 06/21/22 76 05/10/22 80 02/02/22 68 Physical Exam Vitals and nursing note reviewed. Constitutional: Appearance: Normal appearance. HENT: Head: Normocephalic. Eyes: Extraocular Movements: Extraocular movements intact. Conjunctiva/sclera: Conjunctivae normal. Pupils: Pupils are equal, round, and reactive to light. Cardiovascular: Rate and Rhythm: Normal rate and regular rhythm. Pulses: Normal pulses. Heart sounds: Normal heart sounds. Pulmonary: Effort: Pulmonary effort is normal. Comments: Decreased air entry both lungs. Mild diffuse expiratory wheezing present. No rales. Abdominal: General: Abdomen is flat. [...] 5 MG Tablet ??? ASPIRIN PO ??? budesonide (PULMICORT) 0.5 MG/2ML Suspension ??? famotidine (PEPCID) 20 MG Tablet ??? fluticasone (FLONASE) 50 MCG/ACT Suspension ??? ipratropium-albuterol (DUO-NEB) 0.5-2.5 (3) MG/3ML Solution ??? Misc. Devices Misc ??? predniSONE (DELTASONE) 20 MG Tablet I educated Gabbie regarding diagnoses and plan of care. She verbalizes understanding and will call the office if situation changes. Voice recognition software was utilized in this dictation. Despite proof reading, typographical errors and/or content errors may have occurred. By: Torito Gonzalez MD 06/21/2022 8:39 AM CDT documented in this encounter Plan of Treatment Upcoming Encounters Date Type Department Care Team (Late st Contact Info) Description 11/19/2024 8:00 AM FORESTRY SUPPORT SPECIALIST Office [facility] - Internal Medicine - [place] [address] [place] [address] Torito Gonzalez MD [address] [facility] [place] [address] documented as of this encounter Results * XR CHEST 2 [...] Electronically signed by ??Sam Zamora M.D. RL: HARRISON D: ??06/21/2022 3:30 PM T: ??06/21/2022 3:30 PM Report ID: [id number] Reading Location: ??[id number] Procedure Note Sam Zamora MD - 06/21/2022 [...] Sam Zamora M.D. RL: RL Report ID: [id number] Reading Location: [id number] IMPRESSION: 1. No acute findings are noted. 2. Chronic changes as described above. Torito Gonzalez MD IMG DIAGNOSTIC ORDERABLES F inal Result documented in this encounter Visit Diagnoses Diagnosis COPD with acute exacerbation (HCC)- Primary Obstructive chronic bronchitis with exacerbation Cough Essential (primary) hypertension Unspecified essential hypertension Cough documented in this encounter Additional Health Concerns Assessment Noted Time PHQ-9 Depression Total Score: 0 07/14/20 21 8:00 AM CDT documented as of this encounter Care Teams Collection Systems Modeler Relationship Specialty Start Date End Date Torito Gonzalez MD [address] [place] [address] PCP - General Internal Medicine 02/01/20 documented as of this encounter
--- OUTSIDE RECORDS SUMMARY | 2024-11-18 11:35 | XMS_ITS | Encounter Summary ---
Author Organization [facility] Address [address] [place] [address] Phone Care Team Providers Care [employer] Name Role Phone Torito Gonzalez MD Primary Care Provider [phone] Reason for Referral * Radiology Services (Routine) - Closed Specialty Diagnoses / Procedures Referred By Contac t Referred To Contact Radiology Diagnoses Chronic sinusitis, unspecified location Procedures CT SINUSES W/O CONTRAST Ned Philip MD [address] [place] [address] Phone: tel: fax: Referral ID Status Reason Start Date Expiration Date Visits Re quested Visits Authorized [id number] Closed 02/18/2022 1 1 Encounter Details Date Type Department Care Team (Latest Contact Info) Description 02/18/2022 Transcribe Orders [facility] Central Scheduling [address] [place] [phone] Ned Philip MD [address] [place], [place] [id number] Chronic sinusitis, unspecified location (Primary Dx) Social History Tobacco Use Types Packs/Day Years [...] COVID-19? No / Unsure 02/02/2022 2:54 PM DIRECTOR VOLUNTEER SERVICES documented as of this encounter Plan of Treatment Upcoming Encounters Date Type Department Care Team (Late st Contact Info) Description 11/19/2024 8:00 AM DIRECTOR VOLUNTEER SERVICES Office Visit [facility] - Internal Medicine - [place] [address] [place] [address] Torito Gonzalez MD [address] [place] [address] documented as of this encounter Results * [...] 11:38 AM - Electronically signed by ??King Zhong M.D. TEVIN: TEVIN D: ??02/20/2022 11:38 AM T: ??02/20/2022 11:38 AM Report ID: [id number] Reading Location: ??[id number] Procedure Note King Zhong MD - 02/20/2022 [...] 11:38 AM - Electronically signed by King Zhong M.D. TEVIN: TEVIN Report ID: [id number] Reading Location: [id number] IMPRESSION: 1. Maxillary, ethmoid, sphenoid and minimally frontal sinus disease. 2. Right temporomandibular joint osteoarthritis. Ned Philip MD IMG CT ORDERABLES Final Resul t documented in this encounter Visit Diagnoses Diagnosis Chronic sinusitis, unspecified location- Primary Chronic sinusitis, unspecified location documented in this encounter Additional Health Concerns Assessment Noted Time PHQ-9 Depression Total Score: 0 07/14/20 21 8:00 AM CDT documented as of this encounter Care Teams [employer] Relationship Specialty Start Date End Date Torito Gonzalez MD [address] [place] [address] PCP - General Internal Medicine 02/01/20 documented as of this encounter
--- OUTSIDE RECORDS SUMMARY | 2024-11-18 11:36 | XMS_ITS | Encounter Summary ---
Author [email or web address] Preferred Language Paraguayan Marital Status Hinduism Affiliation Unknown Race White Ethnic Group Not or Lati no Author Organization [facility] Address [address] [place] [address] Phone Care Team Providers Care Pasta Maker Name Role Phone Torito Gonzalez MD Primary Care Provider [phone]- [phone] Encounter Details Date Type Department Care Team (Late st Contact Info) Description 12/07/2021 Telephone [facility] - [facility] - [place] [address] [facility] [place] [address] Torito Gonzalez MD [address] [facility] [place] [address] Social History Tobacco Use Types [...] have Coronavirus / COVID-19? No / Unsure 12/01/2021 10:56 AM PHARMACY DISTRICT MANAGER documented as of this encounter Miscellaneous Notes * Telephone Encounter - Torito Gonzalez MD - 12/08/2021 11:10 AM PHARMACY DISTRICT MANAGER Zithromax rx sent [facility] DISTRICT MANAGER * Telephone Encounter - Chantal Randhawa RN - 12/07/2021 10:12 AM PHARMACY DISTRICT MANAGER ----- Message from Dayan Daugherty sent at 12/07/2021 9:53 AM PHARMACY DISTRICT MANAGER ----- Regarding: PT MEDICAL QUESTION Gabbie was in to see Doctor last week, he gave her Amoxicillin and it is making her stomach queasy with indigestion. She is asking for an alternate medicine. Call back number:[phone] [facility] MACY DISTRICT MANAGER documented in this encounter Plan of Treatment Upcoming Encounters Date Type Department Care Team (Late st Contact Info) Description 11/19/2024 8:00 AM PHARMACY DISTRICT MANAGER Office Visit [facility] - Internal Medicine [place] [address] [place] [address] Torito Gonzalez MD [address] [place] [address] documented as of this encounter Visit Diagnoses Not on filedocumented in this encounter Additional Health Concerns Assessment Noted Time PHQ-9 Depression Total Score: 0 07/14/20 21 8:00 AM CDT documented as of this encounter Care Teams Pasta Maker Relationship Specialty Start Date End Date Torito Gonzalez MD [address] [place] [address] PCP - General Internal Medicine 02/01/20 documented as of this encounter
--- OUTSIDE RECORDS SUMMARY | 2024-11-18 11:36 | XMS_ITS | Encounter Summary ---
Author Organization [employer] Care Team Providers Care Client Success Manager Name Role Phone Torito Gonzalez MD Primary Care Provider [phone] Encounter Details Date Type Department Care Team (Latest Contact Info) Description 01/14/2022 Travel Social History Tobacco Use Types Packs/Day [...] COVID-19? No / Unsure 01/14/2022 8:35 AM MOBILE SALES ASSISTANT documented as of this encounter Plan of Treatment Upcoming Encounters Date Type Department Care Team (Late st Contact Info) Description 11/19/2024 8:00 AM MOBILE SALES ASSISTANT Office Visit [facility] - Internal Medicine - [place] [address] [place] [address] Torito Gonzalez MD [address] [place] [address] documented as of this encounter Visit Diagnoses Not on filedocumented in this encounter Additional Health Concerns Assessment Noted Time PHQ-9 Depression Total Score: 0 07/14/20 21 8:00 AM CDT documented as of this encounter Care Teams Client Success Manager Relationship Specialty Start Date End Date Torito Gonzalez MD [address] [place] [address] PCP - General Internal Medicine 02/01/20 documented as of this encounter
--- OUTSIDE RECORDS SUMMARY | 2024-11-18 11:36 | XMS_ITS | Encounter Summary ---
Author Organization [email or web address] Care Team Providers Care Cannery Tender Engineer Name Role Phone Torito Gonzalez MD Primary Care Provider [phone] Encounter Details Date Type Department Care Team (Latest Contact Info) Description 12/01/2021 Travel Social History Tobacco Use Types Packs/Day [...] COVID-19? No / Unsure 12/01/2021 10:56 AM PYRIDINE OPERATOR documented as of this encounter Plan of Treatment Upcoming Encounters Date Type Department Care Team (Late st Contact Info) Description 11/19/2024 8:00 AM PYRIDINE OPERATOR Office Visit [facility] - Internal Medicine - [place] [address] [place] [address] Torito Gonzalez MD [address] [place] [address] documented as of this encounter Visit Diagnoses Not on filedocumented in this encounter Additional Health Concerns Assessment Noted Time PHQ-9 Depression Total Score: 0 07/14/20 21 8:00 AM CDT documented as of this encounter Care Teams Cannery Tender Engineer Relationship Specialty Start Date End Date Torito Gonzalez MD [address] [place] [address] PCP - General Internal Medicine 02/01/20 documented as of this encounter
--- OUTSIDE RECORDS SUMMARY | 2024-11-18 11:36 | XMS_ITS | Encounter Summary ---
Author Organization [facility] Address [address] [place] [address] Phone Care Team Providers Care Metal Grinder Name Role Phone Torito Gonzalez MD Primary Care Provider [phone] Reason for Referral * Consult, Test & Initiate Treatment (Routine) - Closed Specialty Diagnoses / Procedures Referred By Contac t Referred To Contact Diagnoses History of colonic polyps Torito Gonzalez MD [address] [place] [address] Phone: tel: fax: [facility] [place] [address] Phone: tel: fax: Referral ID Status Reason Start Date Expiration Date Visits Re quested Visits Authorized [id number] Closed 01/14/2022 1 1 Scheduling Instructions Gabbie is being referred to Dr. kumari or other specialist in patient's insurance network for fu colonoscopy h/o polyps. See below for Gabbie's current medications, allergies and problem list. CURRENT MEDS: Current Outpatient Medications: amLODIPine (NORVASC) 5 MG Tablet, Take 5 mg by mouth daily., Disp: , Rfl: ASPIRIN PO, Take 81 mg by mouth daily., Disp: , Rfl: famotidine (PEPCID) 20 MG Tablet, Take 20 mg by mouth., Disp: , Rfl: fluticasone (FLONASE) 50 MCG/ACT Suspension, 1 [place] by Nasal route 2 times daily. Use in each nostril as directed., Disp: 16 g, Rfl: 5 No current facility-administered medications for this visit. ALLERGIES: -- Amoxicillin -- Nausea PROBLEM LIST: Patient Active Problem List: Essential (primary) hypertension Hyperlipidemia ECTOR MULTIFOCAL LENS Reason for Visit * Reason Comments Hypertension 6 mo f/u Encounter Details Date Type Department Care Team (Late st Contact Info) Description 01/14/2022 8:45 AM INSPECTOR MULTIFOCAL LENS Office Visit [facility] - Internal Medicine [facility] [address] [place] [address] Torito Gonzalez MD [address] [place] [address] Essential hypertension, benign (Primary Dx); History of colonic polyps Discharge Disposition: Discharged to home or Selfcare [...] COVID-19? No / Unsure 01/14/2022 8:35 AM INSPECTOR MULTIFOCAL LENS documented as of this encounter Last Filed Vital Signs Vital Sign Reading Time Taken Comments Blood Pressure 130/76 01/14/2022 8:42 AM INSPECTOR MULTIFOCAL LENS Pulse 58 01/14/2022 8:42 AM INSPECTOR MULTIFOCAL LENS Temperature 37.1 ??C (98.8 ??F) 01/14/2022 8:42 AM CS T Respiratory Rate - - Oxygen Saturation 97% 01/14/2022 8:42 AM INSPECTOR MULTIFOCAL LENS Inhaled Oxygen Concentration - - Weight 67.1 kg (148 lb) 01/14/2022 8:42 AM INSPECTOR MULTIFOCAL LENS Height 165.1 cm (5' 5 ) 01/14/2022 8:42 AM INSPECTOR MULTIFOCAL LENS Body Mass Index 24.63 01/14/2022 8:42 AM INSPECTOR MULTIFOCAL LENS documented in this encounter Progress Notes * Francisca Terrazas CMA - 01/14/2022 8:45 AM CST Gabbie Chris, 66 y.o., female is here for Hypertension (6 mo f/u) Medication Refills: Patient reports/denies need [...] Christie fluticasone (FLONASE) 50 MCG/ACT Suspension 1 [place] by Nasal route 2 times daily. Use [...] with the patient today: Colonoscopy and Smoking ECTOR MULTIFOCAL LENS * Torito Gonzalez MD - 01/14/2022 8:45 AM CST PROGRESS NOTE [facility] - INTERNAL MEDICINE [address] [place] [address] PHONE: [phone] FAX: [phone] 01/14/2022 NAME: Gabbie Chris, : 1955, Assessment ASSESSMENT & PLAN: Return in about 6 months (around 07/14/2022) for htn. Diagnoses and all orders for this visit: Essential hypertension, benign Comments: Stable. Continue current medication Orders: - CMP (COMPREHENSIVE METABOLIC PANEL); Future - LIPID PANEL; Future History of colonic polyps Comments: Refer for follow-up colonoscopy Orders: - EXTERNAL GASTROENTEROLOGY REFERRAL; Future Check CMP, lipid profile Pneumococcal vaccine advised. Patient was to hold off at this time. Follow-up in 6 months, sooner if needed Chief Complaint Patient presents with ??? Hypertension 6 mo f/u HPI Patient is here for follow-up for hypertension. Feeling well except chronic sinus congestion. Has appointment with ENT specialist in next 2 weeks. Tolerating medications well. ROS Review of systems was negative, except as documented in HPI PHYSICAL EXAM VITALS: Wt Readings from Last 3 Encounters: 01/14/22 148 lb (67.1 kg) 12/16/21 147 lb 1.6 oz (66.7 kg) 12/01/21 148 lb (67.1 kg) Temp Readings from Last 3 Encounters: 01/14/22 98.8 ??F (37.1 ??C) (Temporal) 12/16/21 97.6 ??F (36.4 ??C) (Temporal) 12/01/21 97.6 ??F (36.4 ??C) (Temporal) BP Readings from Last 3 Encounters: 01/14/22 130/76 12/16/21 114/80 12/01/21 114/68 Pulse Readings from Last 3 Encounters: 01/14/22 58 12/16/21 75 12/01/21 92 Physical Exam Vitals and nursing note reviewed. Constitutional: Appearance: Normal appearance. HENT: Head: Normocephalic. Mouth/Throat: Mouth: Mucous membranes are moist. Pharynx: Oropharynx is clear. Eyes: Extraocular Movements: Extraocular movements intact. Conjunctiva/sclera: Conjunctivae normal. Pupils: Pupils are equal, round, and reactive to light. Cardiovascular: Rate and Rhythm: Normal rate and regular rhythm. Pulses: Normal pulses. Heart sounds: Normal heart sounds. Pulmonary: Effort: Pulmonary effort is normal. Breath sounds: Normal breath sounds. Abdominal: General: Abdomen is flat. Bowel sounds [...] ??? Amoxicillin Nausea Current Outpatient Medications: ??? amLODIPine (NORVASC) 5 MG Tablet ??? ASPIRIN PO ??? famotidine (PEPCID) 20 MG Tablet ??? fluticasone (FLONASE) 50 MCG/ACT Suspension I educated Gabbie regarding diagnoses and plan of care. She verbalizes understanding and will call the office if situation changes. Voice recognition software was utilized in this dictation. Despite proof reading, typographical errors and/or content errors may have occurred. By: Torito Gonzalez MD 01/14/2022 8:58 AM INSPECTOR MULTIFOCAL LENS ECTOR MULTIFOCAL LENS * Francisca Terrazas CMA - 01/14/2022 8:45 AM CST Gabbie presents for lab draw per order of Dr. Torito Gonzalez dated 01/14/2022. Specimen collectedfrom left antecubital without incident. ECTOR MULTIFOCAL LENS documented in this encounter Plan of Treatment Upcoming Encounters Date Type Department Care Team (Late st Contact Info) Description 11/19/2024 8:00 AM INSPECTOR MULTIFOCAL LENS Office Visit [facility] - Internal Medicine - [place] [address] [place] [id number] Torito Gonzalez MD [address] [place] [address] Scheduled Referrals Name Type Priority Associated Diagnoses Order Schedule EXTERNAL GASTROENTEROLOGY REFERRAL Outpatient Referral Routine History of colonic polyps Expected: 01/14/2022, Expires: 01/14/2023 documented as of this encounter Procedures Procedure Name Priority Date/Time Associated Diagnosis Comments LIPID PANEL Routine 01/14/2022 9:04 AM INSPECTOR MULTIFOCAL LENS Essential hypertension, benign CMP (COMPREHENSIVE METABOLIC PANEL) Routine 01/14/2022 9:04 AM INSPECTOR MULTIFOCAL LENS Essential hypertension, benign documented in this encounter Results * (ABNORMAL) LIPID PANEL (01/14/2022 9:04 AM INSPECTOR MULTIFOCAL LENS) CHOLESTEROL 198 <=200 mg/dL 01/14/2022 12:40 PM INSPECTOR MULTIFOCAL LENS [facility] TRIGLYCERIDES 106 <150 mg/dL 01/14/2022 12:40 PM INSPECTOR MULTIFOCAL LENS [facility] HDL CHOLESTEROL 64.6 >40 mg/dL 12:40 PM INSPECTOR MULTIFOCAL LENS [facility] LDL 112 5 - 130 mg/dL 01/14/2022 12:40 PM INSPECTOR MULTIFOCAL LENS [facility] VLDL 21 5 - 55 mg/dL 01/14/2022 12:40 PM INSPECTOR MULTIFOCAL LENS [facility] CHOL/HDL RATIO 3.1 0.0 - 4.4 01/14/2022 12:40 PM INSPECTOR MULTIFOCAL LENS [facility] NON-HDL CHOLESTEROL 133.4(H) <130 mg/dL 01/14/2022 12:40 PM INSPECTOR MULTIFOCAL LENS [facility] Blood Venipuncture / Unknown 01/14/2022 9:04 AM INSPECTOR MULTIFOCAL LENS 01/14/2022 9:04 AM INSPECTOR MULTIFOCAL LENS us Torito Gonzalez MD CHEMISTRY ORDERABLES Final Result [facility] [place] [address] * (ABNORMAL) CMP (COMPREHENSIVE METABOLIC PANEL) (01/14/2022 9:04 AM [facility]) SODIUM 139 136 - 144 mmol/L 01/14/2022 12:40 PM [facility] POTASSIUM 3.8 3.5 - 5.1 mmol/L 01/14/2022 12:40 PM [facility] CHLORIDE 104 100 - 110 mmol/L 01/14/2022 12:40 PM [facility] CO2, VENOUS 25 22 - 32 mmol/L 01/14/2022 12:40 PM [facility] ANION GAP 13.8 8.0 - 20.0 mmol/L 01/14/2022 12:40 PM [facility] GLUCOSE 82 70 - 99 mg/dL 01/14/2022 12:40 PM [facility] BUN 18 8 - 23 mg/dL 01/14/2022 12:40 PM [facility] CREATININE, BLOOD 0.88 0.60 - 1.10 mg/dL 01/14/2022 12:40 PM [facility] BUN/CREATININE RATIO 20 12 - 20 ratio 01/14/2022 12:40 PM [facility] TOTAL PROTEIN 7.7 6.0 - 8.3 g/dL 01/14/2022 12:40 PM [facility] ALBUMIN 4.4 3.5 - 5.2 g/dL 01/14/2022 12:40 PM [facility] Comment: The colormetric methods used for the determination of Albumin may lead to falsely elevated test results in patients suffering from renal failure or insufficiency due to interference with other proteins. A/G RATIO 1.3 1.0 - 2.0 01/14/2022 12:40 PM [facility] CALCIUM 9.6 8.9 - 10.3 mg/dL 01/14/2022 12:40 PM [facility] T BILI 0.5 <=1.2 mg/dL 01/14/2022 12:40 PM [facility] SGOT (AST) 25 <=32 U/L 01/14/2022 12:40 PM INSPECTOR MULTIFOCAL LENS [facility] SGPT (ALT) 15 <=41 U/L 01/14/2022 12:40 PM INSPECTOR MULTIFOCAL LENS [facility] ALKALINE PHOSPHATASE 108(H) 35 - 105 U/L 01/14/2022 12:40 PM INSPECTOR MULTIFOCAL LENS [facility] GFR, EST. NONAFRICAN >60 >=60 01/14/2022 12:40 PM INSPECTOR MULTIFOCAL LENS [facility] GFR, EST. >60 >=60 022 12:40 PM INSPECTOR MULTIFOCAL LENS [facility] Comment: Creatinine Clearance is the preferred criteria for selecting drug dose adjustments in renally impaired patients. ??The GFR is provided as additional pertinent clinical information. GFR is reported in mL/min/1.73 sq m. IS THE PATIENT REQUIRED TO BE FASTING? No 01/14/2022 12:40 PM INSPECTOR MULTIFOCAL LENS [facility] Blood Venipuncture / Unknown 01/14/2022 9:04 AM INSPECTOR MULTIFOCAL LENS 01/14/2022 9:04 AM INSPECTOR MULTIFOCAL LENS Torito Gonzalez MD CHEMISTRY ORDERABLES Final Result [facility] [address] [place] [address] documented in this encounter Visit Diagnoses Diagnosis Essential hypertension, benign- Primary History of colonic polyps Personal history of colonic polyps documented in this encounter Additional Health Concerns Assessment Noted Time PHQ-9 Depression Total Score: 0 07/14/20 21 8:00 AM CDT documented as of this encounter Care Teams Metal Grinder Relationship Specialty Start Date End Date Torito Gonzalez MD [address] [place] [address] PCP - General Internal Medicine 02/01/20 documented as of this encounter
--- OUTSIDE RECORDS SUMMARY | 2024-11-18 11:36 | XMS_ITS | Encounter Summary ---
Author Organization [facility] [employer] Care Team Providers Care Medical Secretary Teacher Name Role Phone Torito Gonzalez MD Primary Care Provider [phone] Encounter Details Date Type Department Care Team (Latest Contact Info) Description 12/16/2021 Travel Social History Tobacco Use Types Packs/Day [...] or suspected to have Coronavirus / COVID-19? Yes 12/16/2021 9:22 AM PERMASTONE APPLICATOR documented as of this encounter Plan of Treatment Upcoming Encounters Date Type Department Care Team (Late st Contact Info) Description 11/19/2024 8:00 AM PERMASTONE APPLICATOR Office Visit [facility] - Internal Medicine - [place] [address] [place] [address] Torito Gonzalez MD [address] [place] [address] documented as of this encounter Visit Diagnoses Not on filedocumented in this encounter Additional Health Concerns Assessment Noted Time PHQ-9 Depression Total Score: 0 07/14/20 21 8:00 AM CDT documented as of this encounter Care Teams Medical Secretary Teacher Relationship Specialty Start Date End Date Torito Gonzalez MD [address] [place] [address] PCP - General Internal Medicine 02/01/20 documented as of this encounter
--- OUTSIDE RECORDS SUMMARY | 2024-11-18 11:36 | XMS_ITS | Encounter Summary ---
Author Organization [facility] Address [address] [place] [address] Phone Care Team Providers Care Customer Sales Advisor Name Role Phone Torito Gonzalez MD Primary Care Provider [phone] Reason for Referral * Consult, Test & Initiate Treatment (Routine) - Closed Specialty Diagnoses / Procedures Referred By Contac t Referred To Contact Diagnoses Other chronic sinusitis Torito Gonzalez MD [address] [place] [address] Phone: tel: fax: Ned Philip MD Phone: tel: fax: Referral ID Status Reason Start Date Expiration Date Visits Re quested Visits Authorized [id number] Closed 12/16/2021 1 1 Scheduling Instructions Gabbie is being referred to Dr. Philip or other specialist in patient's insurance network for chronic sinus infection See below for Gabbie's current medications, allergies and problem list. CURRENT MEDS: Current Outpatient Medications: amLODIPine (NORVASC) 5 MG Tablet, Take 5 mg by mouth daily., Disp: , Rfl: ASPIRIN PO, Take 81 mg by mouth daily., Disp: , Rfl: famotidine (PEPCID) 20 MG Tablet, Take 20 mg by mouth., Disp: , Rfl: No current facility-administered medications for this visit. ALLERGIES: No Known Allergies PROBLEM LIST: Patient Active Problem List: Essential (primary) hypertension Hyperlipidemia Y CHECKER Reason for Visit * Reason Comments Sinus Infection follow up Encounter Details Date Type Department Care Team (Late st Contact Info) Description 12/16/2021 9:30 AM RELAY CHECKER Office Visit [facility] - Internal Medicine [facility] [address] [place] [address] Torito Gonzalez MD [address] [place] [address] Other chronic sinusitis (Primary Dx) Discharge Disposition: Discharged to home [...] Coronavirus / COVID-19? Yes 12/16/2021 9:22 AM RELAY CHECKER documented as of this encounter Last Filed Vital Signs Vital Sign Reading Time Taken Comments Blood Pressure 114/80 12/16/2021 9:40 AM RELAY CHECKER Pulse 75 12/16/2021 9:40 AM RELAY CHECKER Temperature 36.4 ??C (97.6 ??F) 12/16/2021 9:40 AM CS T Respiratory Rate 12 12/16/2021 9:40 AM RELAY CHECKER Oxygen Saturation 94% 12/16/2021 9:40 AM RELAY CHECKER Inhaled Oxygen Concentration - - Weight 66.7 kg (147 lb 1.6 oz) 12/16/2021 9:40 A M RELAY CHECKER Height 165.1 cm (5' 5 ) 12/16/2021 9:40 AM RELAY CHECKER Body Mass Index 24.48 12/16/2021 9:40 AM RELAY CHECKER documented in this encounter Patient Instructions * Patient Instructions* Sol Valle RMA - 12/16/2021 9:30 AM RELAY CHECKER Pneumonia is a serious lung infection that can make you very sick. There are now two vaccines recommended by the Center for Disease Control and Prevention (CDC) to protect against pneumonia for all patients who are 65 years and older and patients under 65 with certain conditions that put them at a higher risk. Request your pneumonia vaccines at your Primary Care Physician???s office or your localpharmacy. Y CHECKER documented in this encounter Progress Notes * Torito Gonzalez MD - 12/16/2021 9:30 AM CST PROGRESS NOTE [facility] [address] [place] [address] PHONE: [phone] FAX: [phone] 12/16/2021 NAME: Gabbie Chris, : 1955, Assessment ASSESSMENT & PLAN: No follow-ups on file. Diagnoses and all orders for this visit: Other chronic sinusitis Comments: Refer to ENT specialist for further evaluation and treatment Orders: - EXTERNAL ENT REFERRAL; Future Other orders - fluticasone (FLONASE) 50 MCG/ACT Suspension; 1 [place] by Nasal route 2 times daily. Use in each nostril as directed. Chief Complaint Patient presents with ??? Sinus Infection follow up HPI Patient is here with a complaint of persistent sinus congestion and pressure. Postnasal drainage present. Has been using saline spray along with saline irrigation without much help. No sore throat. Finish the antibiotics without much improvement. Occasional cough. No shortness of breath. ROS Review of systems was negative, except as documented in HPI PHYSICAL EXAM VITALS: Wt Readings from Last 3 Encounters: 12/16/21 147 lb 1.6 oz (66.7 kg) 12/01/21 148 lb (67.1 kg) 07/14/21 150 lb 6.4 oz (68.2 kg) Temp Readings from Last 3 Encounters: 12/16/21 97.6 ??F (36.4 ??C) (Temporal) 12/01/21 97.6 ??F (36.4 ??C) (Temporal) 07/14/21 97.4 ??F (36.3 ??C) (Temporal) BP Readings from Last 3 Encounters: 12/16/21 114/80 12/01/21 114/68 07/14/21 110/74 Pulse Readings from Last 3 Encounters: 12/16/21 75 12/01/21 92 07/14/21 68 Physical Exam Vitals and nursing note reviewed. Constitutional: Appearance: Normal appearance. HENT: Head: Normocephalic. Right Ear: Tympanic membrane and ear canal normal. Left Ear: Tympanic membrane and ear canal normal. Nose: Nose normal. Mouth/Throat: Mouth: Mucous membranes are moist. Pharynx: Oropharynx is clear. Cardiovascular: Rate and Rhythm: Normal rate and regular rhythm. Pulses: Normal pulses. Heart sounds: Normal heart sounds. Pulmonary: Effort: Pulmonary effort is normal. Breath sounds: Normal breath sounds. Neurological: Mental Status: She is alert. Past medical, surgical, social and family history has been reviewed and updated as necessary. Medications and allergies has been reviewed and updated. No Known Allergies Current Outpatient Medications: ??? amLODIPine (NORVASC) 5 [...] may have occurred. By: Torito Gonzalez MD 12/16/2021 10:11 AM RELAY CHECKER Y CHECKER documented in this encounter Plan of Treatment Upcoming Encounters Date Type Department Care Team (Late st Contact Info) Description 11/19/2024 8:00 AM RELAY CHECKER Office Visit [facility] - Internal Medicine - [place] [address] [place] [address] Torito Gonzalez MD [address] [place] [address] documented as of this encounter Procedures Procedure Name Priority Date/Time Associated Diagnosis Comments EXTERNAL ENT REFERRAL Routine 02/18/2022 12:00 AM CDT Other chronic sinusitis documented in this encounter Results * EXTERNAL ENT REFERRAL (02/18/2022 12:00 AM CDT) 02/18/2022 us Torito Gonzalez MD OUTPT REFERRALS EXT/INT Fin al Result SCAN documented in this encounter Visit Diagnoses Diagnosis Other chronic sinusitis- Primary documented in this encounter Additional Health Concerns Assessment Noted Time PHQ-9 Depression Total Score: 0 07/14/20 21 8:00 AM CDT documented as of this encounter Care Teams Customer Sales Advisor Relationship Specialty Start Date End Date Torito Gonzalez MD [address] [place] [address] PCP - General Internal Medicine 02/01/20 documented as of this encounter
--- OUTSIDE RECORDS SUMMARY | 2024-11-18 11:36 | XMS_ITS | Encounter Summary ---
Author Organization [facility] Address [address] [place] [place] [address] Phone Care Team Providers Care Choir Accompanist Name Role Phone Torito Gonzalez MD Primary Care Provider [phone] Reason for Visit * Reason Comments Sinus Infection sinus pressure since august Encounter Details Date Type Department Care Team (Late st Contact Info) Description 12/01/2021 11:00 AM SR. PAYROLL MANAGER Office Visit [facility] - Internal Medicine - [place] [address] [place] [id number] Torito Gonzalez MD [address] [facility] [place] [address] Acute recurrent sinusitis, unspecified location (Primary Dx) Discharge Disposition: Discharged to home [...] COVID-19? No / Unsure 12/01/2021 10:56 AM SR. PAYROLL MANAGER documented as of this encounter Last Filed Vital Signs Vital Sign Reading Time Taken Comments Blood Pressure 114/68 12/01/2021 11:07 AM SR. PAYROLL MANAGER Pulse 92 12/01/2021 11:07 AM SR. PAYROLL MANAGER Temperature 36.4 ??C (97.6 ??F) 12/01/2021 11:[address] Respiratory Rate - - Oxygen Saturation 97% 12/01/2021 11:07 AM SR. PAYROLL MANAGER Inhaled Oxygen Concentration - - Weight 67.1 kg (148 lb) 12/01/2021 11:07 AM SR. PAYROLL MANAGER Height 165.1 cm (5' 5 ) 12/01/2021 11:07 AM SR. PAYROLL MANAGER Body Mass Index 24.63 12/01/2021 11:07 AM SR. PAYROLL MANAGER documented in this encounter Progress Notes * Francisca Terrazas, ROVING DEPARTMENT SUPERVISOR - 12/01/2021 11:00 AM CST Gabbie Chris, 66 y.o., female is here for Sinus Infection (sinus pressure since august) Medication Refills: Patient reports/denies need for medication [...] 20 mg by mouth. Yes ProviderChristie MD polycarbophil calcium (FIBERCON) 625 MG Tablet Take by mouth. Patient not taking: Reported on 12/01/2021 ProviderChristie MD There are no discontinued medications. I have reviewed the home medication list with the patient and have reconciled discrepancies. The list is accurate to the best of my knowledge. Smoking Status: Social History Tobacco Use ??? Smoking status: Former Smoker Types: Cigarettes Quit date: 12/07/2009 Years since quittin.9 ??? Smokeless tobacco: Never Used Vaping Use [...] ??? Colorectal Cancer Screening 09/02/2021 Orders Pended: no The following BPA's have been addressed with the patient today: Smoking and Depression . PAYROLL MANAGER * Torito Gonzalez MD - 12/01/2021 11:00 AM CST PROGRESS NOTE [facility] - INTERNAL MEDICINE [address] [place] [address] PHONE: [phone] FAX: [phone] 12/01/2021 NAME: Gabbie Chris, : 1955, Assessment ASSESSMENT & PLAN: Return if symptoms worsen or fail to improve. Diagnoses and all orders for this visit: Acute recurrent sinusitis, unspecified location Other orders - amoxicillin-clavulanate (AUGMENTIN) 875-125 MG Tablet; Take 1 Tablet by mouth 2 times daily for 10 days. Patient is also advised to use nasal saline spray along with OTC guaifenesin. Chief Complaint Patient presents with ??? Sinus Infection sinus pressure since august [facility] Patient is here with complain of sinus pressure and congestion since August 2021. Symptoms [place]as nasal congestion [place] Has been using OTC medication along with sinus irrigation without much help. Has sinus pressure around nose. Some postnasal drainage present. No sore throat. No fever chills or rigors. No shortness of breath. Occasional cough. ROS Review of systems was negative, except as documented in HPI PHYSICAL EXAM VITALS: Wt Readings from Last 3 Encounters: 12/01/21 148 lb (67.1 kg) 07/14/21 150 lb 6.4 oz (68.2 kg) 11/06/20 155 lb (70.3 kg) Temp Readings from Last 3 Encounters: 12/01/21 97.6 ??F (36.4 ??C) (Temporal) 07/14/21 97.4 ??F (36.3 ??C) (Temporal) 11/06/20 97.6 ??F (36.4 ??C) (Temporal) BP Readings from Last 3 Encounters: 12/01/21 114/68 07/14/21 110/74 11/06/20 116/66 Pulse Readings from Last 3 Encounters: 12/01/21 92 07/14/21 68 11/06/20 70 Physical Exam Vitals and nursing note reviewed. [...] soft. Musculoskeletal: General: Normal range of motion. Skin: General: Skin is warm and dry. Neurological: General: No focal deficit present. Mental Status: She is alert and oriented to person, place, and time. Psychiatric: Mood and Affect: Mood normal. Behavior: Behavior normal. Mild tenderness over maxillary and ethmoid sinus areas present. Past medical, surgical, social and family history has been reviewed and updated as necessary. Medications and allergies has been reviewed and updated. No Known Allergies Current Outpatient Medications: ??? amLODIPine (NORVASC) 5 MG Tablet ??? amoxicillin-clavulanate (AUGMENTIN) 875-125 MG Tablet ??? ASPIRIN PO ??? famotidine (PEPCID) 20 MG Tablet I educated Gabbie regarding diagnoses and plan of care. She verbalizes understanding and will call the office if situation changes. Voice recognition software was utilized in this dictation. Despite proof reading, typographical errors and/or content errors may have occurred. By: Torito Gonzalez MD 12/01/2021 11:57 AM SR. PAYROLL MANAGER . PAYROLL MANAGER documented in this encounter Plan of Treatment Upcoming Encounters Date Type Department Care Team (Late st Contact Info) Description 11/19/2024 8:00 AM SR. PAYROLL MANAGER Office Visit [facility] - Internal Medicine - [place] [address] [place] [address] Torito Gonzalez MD [address] [place] [address] documented as of this encounter Visit Diagnoses Diagnosis Acute recurrent sinusitis, unspecified location- Primary documented in this encounter Additional Health Concerns Assessment Noted Time PHQ-9 Depression Total Score: 0 07/14/20 21 8:00 AM CDT documented as of this encounter Care Teams Choir Accompanist Relationship Specialty Start Date End Date Torito Gonzalez MD [address] [place] [address] PCP - General Internal Medicine 02/01/20 documented as of this encounter
--- OUTSIDE RECORDS SUMMARY | 2024-11-18 11:37 | XMS_ITS | Encounter Summary ---
Author Organization [facility] Address [address] [place] [address] Phone Care Team Providers Care Infantry Weapons Officer Name Role Phone Torito Gonzalez MD Primary Care Provider [phone] Encounter Details Date Type Department Care Team (Late st Contact Info) Description 11/10/2020 Telephone [facility] - [place] [address] [place] [address] Torito Gonzalez MD [address] [facility] [place] [address] Social History Tobacco Use Types Packs/Day Years Used Date Smoking Tobacco: Former Cigarettes Q uit: 12/07/2009 Smokeless Tobacco: Never PHQ-2 Answer Date Recorded Total Score - Questions 1-9 0 10/28 Comments No Sex and Gender Information Value Date Recorded Sex Assigned at Not on file Legal Sex Female 10:44 PM CDT Gender Identity Not on file Sexual Orientation Not on file COVID-19 Exposure Response Date Recorded In the last month, have you been in contact with someone who was confirmed or suspected to have Coronavirus / COVID-19? No / Unsure 11/06/2020 10:29 AM CONTINUOUS ABSORPTION PROCESS OPERATOR documented as of this encounter Miscellaneous Notes * Telephone Encounter - Chantal Randhawa RN - 11/11/2020 12:46 PM CONTINUOUS ABSORPTION PROCESS OPERATOR Attempted to call patient with results, no answer at this time. Will reopen if patient calls back. INUOUS ABSORPTION PROCESS OPERATOR * Telephone Encounter - Chantal Randhawa RN - 11/10/2020 10:49 AM CONTINUOUS ABSORPTION PROCESS OPERATOR Attempted to call patient with results, no answer at this time. Unable to leave message. INUOUS ABSORPTION PROCESS OPERATOR * Telephone Encounter - Torito Gonzalez MD - 11/10/2020 10:45 AM CONTINUOUS ABSORPTION PROCESS OPERATOR Cephalexin 500 mg 1 b.i.d. for 7 days Rx sent. She needs to stop doxycycline. INUOUS ABSORPTION PROCESS OPERATOR * Telephone Encounter - Chantal Randhawa RN - 11/10/2020 10:10 AM CONTINUOUS ABSORPTION PROCESS OPERATOR ----- Message from February sent at 11/10/2020 9:02 AM CONTINUOUS ABSORPTION PROCESS OPERATOR ----- Regarding: PATIENT MEDICAL QUESTION Patient was her last week doctor prescribed Doxycycline ans since she has been taking it she is having a lot of low back pain and nausea, she is taking with food. Will you change Call back # [phone] Pharmacy: [facility] [address] [place] [id number] INUOUS ABSORPTION PROCESS OPERATOR documented in this encounter Plan of Treatment Upcoming Encounters Date Type Department Care Team (Late st Contact Info) Description 11/19/2024 8:00 AM CONTINUOUS ABSORPTION PROCESS OPERATOR [facility] - Internal [facility] - [place] [address] [place] [address] Torito Gonzalez MD [address] [place] [address] documented as of this encounter Visit Diagnoses Not on filedocumented in this encounter Additional Health Concerns Assessment Noted Time PHQ-9 Depression Total Score: 0 11/06/20 20 10:00 AM CONTINUOUS ABSORPTION PROCESS OPERATOR documented as of this encounter Care Teams Infantry Weapons Officer Relationship Specialty Start Date End Date Torito Gonzalez MD [address] [place] [address] PCP - General Internal Medicine 02/01/20 documented as of this encounter
--- OUTSIDE RECORDS SUMMARY | 2024-11-18 11:37 | XMS_ITS ---
Author Organization [facility] [place] Address [address] [facility] [place] [address] Phone Care Team Providers Care Rating Officer Name Role Phone Torito Gonzalez MD Primary Care Provider [phone] Guille Collier MD Unavailable OnCall Chronic Care Management Status:Declined (Declined) Start date:06/19/2024 Enrollment reason:Identified using claims or encounter data End date:06/28/2024 Decline reason:Uninterested Related social drivers of health:Intimate Partner Violence, Social Connections, Alcohol Use, Tobacco Use, Financial Resource Strain,Stress, Physical Activity, Food Insecurity, Transportation Needs, Housing Stability, Utilities Continued Care and Services Coordination
--- OUTSIDE RECORDS SUMMARY | 2024-11-18 11:37 | XMS_ITS | Encounter Summary ---
Author Organization [facility] Address [address] [place] [address] Phone Care Team Providers Care Sheep Or Calf Grader Name Role Phone Torito Gonzalez MD Primary Care Provider [phone] Encounter Details Date Type Department Care Team (Late st Contact Info) Description 12/09/2020 Telephone [facility] - [place] [address] [place] [address] Torito Gonzalez MD [address] [facility] [place] [address] Social History Tobacco Use Types [...] Telephone Encounter - Francisca Terrazas CMA - 12/10/2020 12:55 PM LEATHER FITTER Mail box is full and could not leave message. HER FITTER * Telephone Encounter - Chantal Randhawa RN - 12/09/2020 3:46 PM CST ----- Message from Torito Gonzalez MD sent at 12/09/2020 3:22 PM LEATHER FITTER ----- Labs okay. Continue current medications HER FITTER documented in this encounter Plan of Treatment Upcoming Encounters Date Type Department Care Team (Late st Contact Info) Description 11/19/2024 8:00 AM LEATHER FITTER Office Visit [facility] - Internal Medicine [facility] [address] [place] [address] Torito Gonzalez MD [address] [place] [address] documented as of this encounter Visit Diagnoses Not on filedocumented in this encounter Additional Health Concerns Assessment Noted Time PHQ-9 Depression Total Score: 0 11/06/20 20 10:00 AM LEATHER FITTER documented as of this encounter Care Teams Sheep Or Calf Grader Relationship Specialty Start Date End Date Torito Gonzalez MD [address] [place] [address] PCP - General Internal Medicine 02/01/20 documented as of this encounter
--- OUTSIDE RECORDS SUMMARY | 2024-11-18 11:37 | XMS_ITS | Encounter Summary ---
Author Organization [facility] Address [address] [place] [address] Phone Care Team Providers Care Machine Puller Over Name Role Phone Torito Gonzalez MD Primary Care Provider [phone] Reason for Visit * Reason Onset Date Comments xray 07/15/2021 Encounter Details Date Type Department Care Team ([facility] st Contact Info) Description 07/15/2021 Telephone [facility] - Internal Medicine - [place] [address] [place] [address] Torito Gonzalez MD [address] [facility] [address] xray Social History Tobacco Use Types Packs/Day Years Used Date Smoking Tobacco: Former Cigarettes Q uit: 12/07/2009 Smokeless Tobacco: Never PHQ-2 Answer Date Recorded Total Score - Questions 1-9 0 06/28 Comments No Sex and Gender Information Value Date Recorded Sex Assigned at Not on file Legal Sex Female 10:44 PM CDT Gender Identity Not on file Sexual Orientation Not on file COVID-19 Exposure Response Date Recorded In the last month, have you been in contact with someone who was confirmed or suspected to have Coronavirus / COVID-19? No / Unsure 07/14/2021 8:38 AM CDT documented as of this encounter Miscellaneous Notes * Telephone Encounter - Chantal Randhawa RN - 07/29/2021 3:14 PM CDT Attempted to call patient with results, no answer at this time. Left message to call back. Will close at this time and reopen if patient calls back. * Telephone Encounter - Chantal Randhawa RN - 07/22/2021 3:08 PM CDT Attempted to call patient with results, no answer at this time. Mailbox full * Telephone Encounter - Chantal Randhawa RN - 07/15/2021 1:30 PM CDT Hip xray results received and review by provider and noted to have mild osteoarthritis of the hip joint. Provider stated if pain persists that we will send to orthopedic surgeon. documented in this encounter Plan of Treatment Upcoming Encounters Date Type Department Care Team (Late st Contact Info) Description 11/19/2024 8:00 AM HYDRAULIC TESTER Office Visit [facility] - Internal Medicine [place] [address] [place] [address] Torito Gonzalez MD [address] [place] [address] documented as of this encounter Visit Diagnoses Not on filedocumented in this encounter Additional Health Concerns Assessment Noted Time PHQ-9 Depression Total Score: 0 07/14/20 21 8:00 AM CDT documented as of this encounter Care Teams Machine Puller Over Relationship Specialty Start Date End Date Torito Gonzalez MD [address] [place] [address] PCP - General Internal Medicine 02/01/20 documented as of this encounter
--- OUTSIDE RECORDS SUMMARY | 2024-11-18 11:37 | XMS_ITS | Encounter Summary ---
Author Organization [facility] [employer] [facility] Care Team Providers Care Bmw Service Technician Name Role Phone Torito Gonzalez MD Primary Care Provider [phone] Encounter Details Date Type Department Care Team (Latest Contact Info) Description 07/14/2021 Travel Social History Tobacco Use Types Packs/Day [...] st Contact Info) Description 11/19/2024 8:00 AM CHEMICAL RECOVERY OPERATOR Office Visit [facility] - Internal Medicine - [place] [address] [place] [phone] Torito Gonzalez MD [address] [place] [address] documented as of this encounter Visit Diagnoses Not on filedocumented in this encounter Additional Health Concerns Assessment Noted Time PHQ-9 Depression Total Score: 0 07/14/20 21 8:00 AM CDT documented as of this encounter Care Teams Bmw Service Technician Relationship Specialty Start Date End Date Torito Gonzalez MD [address] [place] [address] PCP - General Internal Medicine 02/01/20 documented as of this encounter
--- OUTSIDE RECORDS SUMMARY | 2024-11-18 11:37 | XMS_ITS | Encounter Summary ---
Author Organization [facility] Address [address] [place] [address] Phone Care Team Providers Care Telephone Lines Repairer Name Role Phone Torito Gonzalez MD Primary Care Provider [phone] Reason for Visit * Reason Comments Skin Lesion sore on left leg Encounter Details Date Type Department Care Team (Late st Contact Info) Description 11/06/2020 10:45 AM DIRECTOR OF CORPORATE MARKETING Office Visit [facility] - Internal Medicine - [place] [address] [facility] [place] [id number] Torito Gonzalez MD [address] [place] [address] Skin ulcer of left lower leg, limited to breakdown of skin (HCC) (Primary Dx); Essential hypertension, benign; Other hyperlipidemia Discharge Disposition: Discharged to home or Selfcare [...] COVID-19? No / Unsure 11/06/2020 10:29 AM DIRECTOR OF CORPORATE MARKETING documented as of this encounter Last Filed Vital Signs Vital Sign Reading Time Taken Comments Blood Pressure 116/66 11/06/2020 10:37 AM DIRECTOR OF CORPORATE MARKETING Pulse 70 11/06/2020 10:37 AM DIRECTOR OF CORPORATE MARKETING Temperature 36.4 ??C (97.6 ??F) 11/06/2020 10:[address] Respiratory Rate - - Oxygen Saturation - - Inhaled Oxygen Concentration - - Weight 70.3 kg (155 lb) 11/06/2020 10:37 AM DIRECTOR OF CORPORATE MARKETING Height 165.1 cm (5' 5 ) 11/06/2020 10:37 AM DIRECTOR OF CORPORATE MARKETING Body Mass Index 25.79 11/06/2020 10:37 AM DIRECTOR OF CORPORATE MARKETING documented in this encounter Progress Notes * Francisca Terrazas, ACCORDION TUNER - 11/06/2020 10:45 AM CST Gabbie Chris, 65 y.o., female is here for Skin Lesion (sore on left leg) Medication Refills: Patient reports/denies need for medication refills. Orders Pended: no Requested Prescriptions No prescriptions requested or ordered in this encounter Home Medications Medication Sig Start Date End Date Taking? Authorizing Provider amLODIPine (NORVASC) 5 MG Tablet Take 5 mg by mouth daily. Yes Provider, Not On File ASPIRIN PO Take 81 mg by mouth daily. Yes Provider, Not On File Cholecalciferol (Vitamin D-3) 125 MCG (5000 UT) Tablet Take 1 Tab by mouth daily. Provider, Not On File famotidine (PEPCID) 20 MG Tablet Take 20 mg by mouth. Yes Provider, MD Christie polycarbophil calcium (FIBERCON) 625 MG Tablet Take by mouth. Yes ProviderChristie MD simvastatin (ZOCOR) 20 MG Tablet Take 20 mg by mouth nightly. Provider, Not On File There are no discontinued medications. I have reviewed the home medication list with the patient and have reconciled discrepancies. The list is accurate to the best of my knowledge. Smoking Status: Social History Tobacco Use ??? Smoking status: Former Smoker Types: Cigarettes Quit date: 12/07/2009 Years since quittin.9 ??? Smokeless tobacco: Never Used Substance Use Topics ??? Alcohol use: Not on file ??? Drug use: Not on file Smoking Cessation Counseling Given: no Health Care Maintenance: Health Maintenance Due Topic Date Due ??? DTaP/Tdap/Td Immunization (1 - Tdap) 1960 ??? Zoster Immunization (1 of 2) 2003 ??? Pneumococcal Immunization (65+ years) (1 of 1 - PPSV23) 2018 ??? Colorectal Cancer Screening 01/04/2021 Orders Pended: no The following BPA's have been addressed with the patient today: Smoking and Depression CTOR OF CORPORATE MARKETING * Torito Gonzalez MD - 11/06/2020 10:45 AM CST PROGRESS NOTE [facility] - INTERNAL MEDICINE [address] [place] [address] 11/06/2020 Gabbie Chris 1955 Chief Complaint Patient presents with ??? Skin Lesion sore on left leg Patient is here with complain of skin lesion on the left leg. Noticed about 1 week ago. Area is open. Using a topical antibiotic cream. Now area is excoriated. Minimal discomfort and itching present.Also here for follow-up for hypertension. ROS Review of Systems Constitutional: Negative. HENT: Negative. Eyes: Negative. Respiratory: Negative. Cardiovascular: Negative. Gastrointestinal: Negative. Endocrine: Negative. Genitourinary: Negative. Musculoskeletal: Negative. Skin: Positive for wound. Allergic/Immunologic: Negative. Neurological: Negative. Hematological: Negative. Psychiatric/Behavioral: Negative. PHYSICAL EXAM Physical Exam Vitals signs and nursing note reviewed. Constitutional: Appearance: Normal appearance. HENT: Head: Normocephalic. Mouth/Throat: Mouth: Mucous membranes are moist. Pharynx: Oropharynx is clear. Eyes: Extraocular Movements: Extraocular movements intact. Conjunctiva/sclera: Conjunctivae normal. Pupils: Pupils are equal, round, and reactive to light. Neck: Musculoskeletal: Normal range of motion and neck supple. Cardiovascular: Rate and Rhythm: Normal rate and regular rhythm. Pulses: Normal pulses. Heart sounds: Normal heart sounds. Pulmonary: Effort: Pulmonary effort is normal. Breath sounds: Normal breath sounds. Abdominal: General: Abdomen is flat. Bowel sounds are normal. Palpations: Abdomen is soft. Musculoskeletal: Normal range of motion. Skin: General: Skin is warm and dry. Neurological: General: No focal deficit present. Mental Status: She is alert and oriented to person, place, and time. Psychiatric: Mood and Affect: Mood normal. Behavior: Behavior normal. Small open area on the lateral aspect of left mid leg present. Surrounding area is mildly inflamed.No drainage. Past medical, surgical, social and family history has been reviewed and updated as necessary. Medications and allergies has been reviewed and updated. No Known Allergies Patient Active Problem List Diagnosis Date Noted ??? Essential (primary) hypertension 10/02/2013 ??? Hyperlipidemia 10/02/2013 Current Outpatient Medications: ??? amLODIPine (NORVASC) 5 MG Tablet ??? ASPIRIN PO ??? doxycycline hyclate (VIBRAMYCIN) 100 MG Capsule ??? famotidine (PEPCID) 20 MG Tablet ??? polycarbophil calcium (FIBERCON) 625 MG Tablet Assessment ASSESSMENT & PLAN: Return in about 6 months (around 05/07/2021) for htn. Diagnoses and all orders for this visit: Skin ulcer of left lower leg, limited to breakdown of skin (HCC) Essential hypertension, benign - CMP (COMPREHENSIVE METABOLIC PANEL); Future Other hyperlipidemia - LIPID PANEL; Future Other orders - polycarbophil calcium (FIBERCON) 625 MG Tablet; Take by mouth. - famotidine (PEPCID) 20 MG Tablet; Take 20 mg by mouth. - doxycycline hyclate (VIBRAMYCIN) 100 MG Capsule; Take 1 Cap by mouth 2 times daily for 10 days. Probably she has mild cellulitis near ulcer area along with contact dermatitis. Will try doxycycline 100 mg b.i.d. for 7 days and advised not to use topical antibiotic cream. Just clean with soap andwater once a day. If no improvement in 1 week will refer to bologna maker since she has history of basal cell CA on the same leg. She is advised to continue amlodipine for hypertension. Advised to get labs done since she is off simvastatin due to elevated LFT. Follow-up in 6 months sooner if needed I educated Gabbie regarding diagnoses and plan of care. She verbalizes understanding and will call the office if situation changes. Voice recognition software was utilized in this dictation. Despite proof reading, typographical errors and/or content errors may have occurred. By: Torito Gonzalez MD 11/06/2020 10:55 AM DIRECTOR OF CORPORATE MARKETING CTOR OF CORPORATE MARKETING documented in this encounter Plan of Treatment Upcoming Encounters Date Type Department Care Team (Late st Contact Info) Description 11/19/2024 8:00 AM DIRECTOR OF CORPORATE MARKETING Office Visit [facility] - Internal Medicine [facility] [address] [place] [address] Torito Gonzalez MD [address] [place] [address] documented as of this encounter Results * LIPID PANEL (12/09/2020) TOTAL CHOLESTEROL 177 HDL 58 mg/dL LDL 97 0 - 130 mg/dL Blood 12/09/2020 Torito Gonzalez MD CHEMISTRY ORDERABLES Final Result * CMP (COMPREHENSIVE METABOLIC PANEL) (12/09/2020) Blood Torito Gonzalez MD CHEMISTRY ORDERABLES Final Result documented in this encounter Visit Diagnoses Diagnosis Skin ulcer of left lower leg, limited to breakdown of skin (HCC)- Primary Essential hypertension, benign Other hyperlipidemia documented in this encounter Additional Health Concerns Assessment Noted Time PHQ-9 Depression Total Score: 0 11/06/20 20 10:00 AM DIRECTOR OF CORPORATE MARKETING documented as of this encounter Care Teams Telephone Lines Repairer Relationship Specialty Start Date End Date Torito Gonzalez MD [address] [place] [address] PCP - General Internal Medicine 02/01/20 documented as of this encounter
--- OUTSIDE RECORDS SUMMARY | 2024-11-18 11:37 | XMS_ITS | Encounter Summary ---
Author Organization [facility] Address [address] [place] [address] Phone Care Team Providers Care Profiling Machine Set Up Operator Name Role Phone Torito Gonzalez MD Primary Care Provider [phone]- [phone] Reason for Referral * Radiology Services (Routine) - Closed Specialty Diagnoses / Procedures Referred By Contac t Referred To Contact Radiology Diagnoses Chronic right hip pain Procedures XR HIP 2 VIEWS BILATERAL WITH AP PELVIS Torito Gonzalez MD [address] [place] [address] Phone: tel: fax: Referral ID Status Reason Start Date Expiration Date Visits Re quested Visits Authorized [id number] Closed 07/14/2021 1 1 Reason for Visit * Reason Comments Follow-up 6 mo f/u Pain Right hip pain runni ng down leg Encounter Details Date Type Department Care Team (Late st Contact Info) Description 07/14/2021 8:45 AM CDT Office Visit [facility] - Internal Medicine - [place] [address] [place] [phone] Torito Gonzalez MD [address] [place] [address] Essential (primary) hypertension (Primary Dx); Chronic right hip pain; Other hyperlipidemia Discharge Disposition: Discharged to home or Selfcare Social History Tobacco Use Types Packs/Day Years Used Date Smoking Tobacco: Former Cigarettes Q uit: 12/07/2009 Smokeless Tobacco: Never Tobacco Cessation:Counseling Given: No PHQ-2 Answer Date Recorded Total Score - [...] Sign Reading Time Taken Comments Blood Pressure 110/74 07/14/2021 8:51 AM CDT Pulse 68 07/14/2021 8:51 AM CDT Temperature 36.3 ??C (97.4 ??F) 07/14/2021 8:51 AM CD T Respiratory Rate 12 07/14/2021 8:51 AM CDT Oxygen Saturation 98% 07/14/2021 8:51 AM CDT Inhaled Oxygen Concentration - - Weight 68.2 kg (150 lb 6.4 oz) 07/14/2021 8:51 A M CDT Height 166.4 cm (5' 5.5 ) 07/14/2021 8:51 AM CDT Body Mass Index 24.65 07/14/2021 8:51 AM CDT documented in this encounter Patient Instructions * Patient Instructions* Sol Valle RMA - 07/14/2021 8:45 AM CDT Pneumonia is a serious lung infection that [...] Primary Care Physician???s office or your localpharmacy. documented in this encounter Progress Notes * Sol Valle RMA - 07/14/2021 8:45 AM CDT Gabbie Chris, 66 y.o., female is here for Follow-up (6 mo f/u ) and Pain (Right hip pain runningdown leg ) Medication Refills: Patient reports/denies need for [...] 625 MG Tablet Take by mouth. Yes Provider, MD Christie There are no discontinued medications. I have reviewed the home medication list with the patient and have reconciled discrepancies. The list is accurate to the best of my knowledge. Smoking Status: Social History Tobacco Use ??? Smoking status: Former Smoker Types: Cigarettes Quit date: 12/07/2009 Years since quittin.6 ??? Smokeless tobacco: Never Used Substance Use [...] PPSV23) Never done ??? Colorectal Cancer Screening 01/04/2021 Orders Pended: no The following BPA's have been addressed with the patient today: TDAP, Pneumonia, Colonoscopy, Depression and Fall Risk * Torito Gonzalez MD - 07/14/2021 8:45 AM CDT PROGRESS NOTE [facility] - [place] [address] PHONE: [phone] FAX: [phone] 07/14/2021 NAME: Gabbie Chris, : 1955, Assessment ASSESSMENT & PLAN: Return in about 6 months (around 01/14/2022) for htn. Diagnoses and all orders for this visit: Essential (primary) hypertension Comments: Stable. Continue current medication Chronic right hip pain Comments: Will get x-ray of right hip for further evaluation. Orders: - XR HIP 2 VIEWS BILATERAL WITH AP PELVIS; Future Other hyperlipidemia Comments: Continue low-cholesterol diet. Follow-up in 6 months, sooner if needed Chief Complaint Patient presents with ??? Follow-up 6 mo f/u ??? Pain Right hip pain running down leg HPI Patient is here for follow-up for hypertension. Feeling well except chronic right hip pain. Gettingworse. Time pain radiates down to right leg. Denies any tingling or numbness of right lower extremity. Denies any back pain. Takes acetaminophen as needed. Tolerating other medications well. ROS Review of systems was negative, except as documented in HPI PHYSICAL EXAM VITALS: Wt Readings from Last 3 Encounters: 07/14/21 150 lb 6.4 oz (68.2 kg) 11/06/20 155 lb (70.3 kg) Temp Readings from Last 3 Encounters: 07/14/21 97.4 ??F (36.3 ??C) (Temporal) 11/06/20 97.6 ??F (36.4 ??C) (Temporal) BP Readings from Last 3 Encounters: 07/14/21 110/74 11/06/20 116/66 Pulse Readings from Last 3 Encounters: 07/14/21 68 11/06/20 70 Physical Exam Vitals [...] Normal range of motion and neck supple. Comments: No tenderness over right hip joint area. Right hip joint movement is mildly painful but not restricted. Skin: General: Skin is warm and dry. [...] ??? polycarbophil calcium (FIBERCON) 625 MG Tablet I educated Gabbie regarding diagnoses and plan of care. She verbalizes understanding and will call the office if situation changes. Voice recognition software was utilized in this dictation. Despite proof reading, typographical errors and/or content errors may have occurred. By: Torito Gonzalez MD 07/14/2021 9:05 AM CDT documented in this encounter Plan of Treatment Upcoming Encounters Date Type Department Care Team (Late st Contact Info) Description 11/19/2024 8:00 AM AUDITOR IN CHARGE Office Visit [facility] - Internal Medicine - [place] [address] [place] [address] Torito Gonzalez MD [address] [place] [address] documented as of this encounter Results * XR HIP 2 VIEWS BILATERAL WITH AP PELVIS (07/14/2021) Anatomical Region Laterality Modality LOWER EXTREMITY, hip, Pelvis Bilateral Oth er us Torito Gonzalez MD IMG DIAGNOSTIC ORDERABLES F inal Result documented in this encounter Visit Diagnoses Diagnosis Essential (primary) hypertension- Primary Unspecified essential hypertension Chronic right hip pain Pain in joint, pelvic region and thigh Other hyperlipidemia documented in this encounter Additional Health Concerns Assessment Noted Time PHQ-9 Depression Total Score: 0 07/14/20 21 8:00 AM CDT documented as of this encounter Care Teams Profiling Machine Set Up Operator Relationship Specialty Start Date End Date Torito Gonzalez MD [address] [place] [address] PCP - General Internal Medicine 02/01/20 documented as of this encounter
--- OUTSIDE RECORDS SUMMARY | 2024-11-18 11:37 | XMS_ITS | Encounter Summary ---
Author Organization [employer] [facility] Care Team Providers Care Brake Mechanic Name Role Phone Torito Gonzalez MD Primary Care Provider [phone] Encounter Details Date Type Department Care Team (Latest Contact Info) Description 11/06/2020 Travel Social History Tobacco Use Types Packs/Day [...] COVID-19? No / Unsure 11/06/2020 10:29 AM CONSUMER SALES REPRESENTATIVE documented as of this encounter Plan of Treatment Upcoming Encounters Date Type Department Care Team (Late st Contact Info) Description 11/19/2024 8:00 AM CONSUMER SALES REPRESENTATIVE Office Visit [facility] - Internal Medicine - [place] [address] [place] [phone] Torito Gonzalez MD [address] [place] [address] documented as of this encounter Visit Diagnoses Not on filedocumented in this encounter Additional Health Concerns Assessment Noted Time PHQ-9 Depression Total Score: 0 11/06/20 20 10:00 AM CONSUMER SALES REPRESENTATIVE documented as of this encounter Care Teams Brake Mechanic Relationship Specialty Start Date End Date Torito Gonzalez MD [address] [place] [address] PCP - General Internal Medicine 02/01/20 documented as of this encounter
--- OUTSIDE RECORDS SUMMARY | 2024-11-18 11:37 | XMS_ITS | Encounter Summary ---
Author Organization [facility] Address [address] [place] [address] Phone Care Team Providers Care Paper Inspector Name Role Phone Torito Gonzalez MD Primary Care Provider [phone] Encounter Details Date Type Department Care Team (Late st Contact Info) Description 10/31/2020 Telephone [facility] - [place] [address] [place] [address] Torito Gonzalez MD [address] [place] [address] Social History Tobacco Use Types Packs/Day Years Used Date Smoking Tobacco: Never Assessed Comments Unknown Sex and Gender Information Value Date Recorded Sex Assigned at Not on file Legal Sex Female 10:44 PM CDT Gender Identity Not on file Sexual Orientation Not on file documented as of this encounter Miscellaneous Notes * Telephone Encounter - Francisca Terrazas CMA - 11/03/2020 9:56 AM FLOOR PRESS OPERATOR Left Message on voice mail that her mammogram was normal. R PRESS OPERATOR * Telephone Encounter - Chantal Randhawa RN - 10/31/2020 4:24 PM CST Received results back from Mammogram and provider reviewed and they are normal. R PRESS OPERATOR documented in this encounter Plan of Treatment Upcoming Encounters Date Type Department Care Team (Late st Contact Info) Description 11/19/2024 8:00 AM FLOOR PRESS OPERATOR Office Visit [facility] - Internal Medicine - [place] [address] [place] [phone] Torito Gonzalez MD [address] [place] [address] documented as of this encounter Visit Diagnoses Not on filedocumented in this encounter Care Teams Paper Inspector Relationship Specialty Start Date End Date Torito Gonzalez MD [address] [place] [address] PCP - General Internal Medicine 02/01/20 documented as of this encounter
--- OUTSIDE RECORDS SUMMARY | 2024-11-18 11:37 | XMS_ITS ---
Author Organization [facility] [place] Address [address] [facility] [place] [address] Phone Care Team Providers Care Store Custodian Name Role Phone Torito Gonzalez MD Primary Care Provider [phone] Guille Collier MD Unavailable Ambulatory Complex Care Management Status:Closed (Closed) Start date:05/17/2024 Enrollment reason:Identified as high-risk End date:05/17/2024 Close reason:Not eligible Related social drivers of health:Intimate Partner Violence, Social Connections, Alcohol Use, Tobacco Use, Financial Resource Strain,Stress, Physical Activity, Food Insecurity, Transportation Needs, Housing Stability, Utilities Overview Complex Care Management Program Continued Care and Services Coordination
--- OUTSIDE RECORDS SUMMARY | 2024-11-18 11:52 | XMS_ITS | Referral Summary ---
Author Organization [facility] Address [address] [place] [address] Care Team Providers Care Arch Cushion Skiving Machine Operator Name Role Phone Torito Gonzalez MD Primary Care Provider [phone] Sol Lincoln MD Unavailable [phone] Encounters Date Type Department Care Team Description 09/25/2024 2:30 PM CDT Office Visit [facility] [address] [facility] [address] [place] [address] Alhaji Payan MD Well woman exam (Primary Dx); Visit for screening mammogram 09/03/2024 Telephone [facility] [address] [facility] [address] [place] [address] Prerna Berg RN 08/30/2024 9:20 AM CDT Office Visit [facility] [address] [facility] Medical Office Building [address] [place] [address] Lydia Rojas MD Chronic pansinusitis (Primary Dx); Polyp of nasal cavity; S/P FESS (functional endoscopic sinus surgery) from Last 3 Months Allergies Active Allergy Reactions Criticality Noted Date Comments Amoxicillin Stomach upset Low 04/16/2022 Doxycycline Other (See comments) Low 05/17/2023 Severe Back Pain Latex Rash Medium 04/16/2024 Levofloxacin Palpitations Low 09/16/2022 Medications aspirin 81 mg tablet take 1 tablet by oral route every day 0 0 05/10/20 16 Active famotidine (PEPCID) 20 mg tablet Take 1 tablet (20 mg total) by mouth every other day Active calcium carbonate (CALCIUM 600 ORAL) Take 1 tablet by mouth daily Active albuterol HFA (PROVENTIL HFA,VENTOLIN HFA,PROAIR HFA) 90 mcg/actuation inhaler albuterol sulfate HFA 90 mcg/actuation aerosol inhaler INHALE 1 TO 2 PUFFS BY MOUTH EVERY 6 HOURS NEEDED FOR WHEEZING Active ipratropium-albut Aamir (DUO-NEB) 0.5-2.5 mg/3 mL nebulizer solutionIndicatio ns:Chronic Obstructive Pulmonary Disease with Bronchospasms Take 3 mL by nebulization every 6 (six) hours as needed for shortness of breath As needed Active fluticasone propionate (FLONASE) 50 mcg/actuation nasal spray Administer 1 spray into each nostril 2 (two) times a day as needed for rhinitis 1 each 01/18/20 23 Active dupilumab (Dupixent Pen) 200 mg/1.14 mL pen injector Inject 200 mg under the skin every 2 (two) weeks Active amLODIPine (NORVASC) 5 mg tablet Take 1 tablet (5 mg total) by mouth daily 90 tablet 3 06/04/20 24 Active denosumab (PROLIA) 60 mg/mL syringe Inject 1 mL (60 mg total) under the skin once for 1 dose 1 mL 07/19/20 24 Active Additional Information Patient taking differently:60 mg subcutaneous Once,Q 6 months for osteoporosis, Reported on 07/24/2024 budesonide (PULMICORT) 0.5 mg/2 mL nebulizer solution Take 2 mL (0.5 mg total) by nebulization daily 07/20/20 24 Active formoterol (PERFOROMIST) 20 mcg/2 mL nebulizer solution Take 2 mL (20 mcg total) by nebulization daily 07/04/20 24 Active HYDROcodone-aceta minophen (NORCO) 5-325 mg per tabletIndications :Pain Take 1 tablet by mouth every 6 (six) hours as needed for pain 15 tablet 08/08/20 24 Active Active Problems Problem Noted Date Diagnosed Date Hypertrophy of both inferior nasal turbinates Chronic sinusitis 04/16/2024 Polyp of nasal cavity 04/16/2024 Obstructive sleep apnea (adult) (pediatric) 12/2023 NSTEMI (non-ST elevated myocardial infarction) ( [facility] 01/15/2023 Age-related osteoporosis wit hout current pathological fracture 12/22/2022 Hx of colonic polyps 04/15/2022 Overview (04/15/2022): Added automatically from request for surgery [id number] Prinzmetal's angina ([facility]) 04/17/2021 Assessment & Plan (08/23/2023 10:01 AM CDT): No recurrence, continue amlodpine. Assessment & Plan (02/15/2023 12:40 PM CDT): Asymptomatic. Continue amlodipine. The patient's recent admission with elevated troponin and cardiac catheterization showing no coronary disease most likely represents hypoxemia induced ischemia from her COVID pneumonia. Assessment & Plan (04/16/2022 9:17 AM CDT): Symptoms well controlled with amlodipine. EKG is unchanged over the last 3 years. Continue same therapy. Prescriptions refilled Assessment & Plan (04/17/2021 9:19 AM CDT): No angina Continue amlodipine RTC 1year CAD (coronary artery disease) 04/18/2020 Assessment & Plan (06/04/2024 2:19 PM CDT): Asymptomatic. Continue aspirin 81 mg daily. Assessment & Plan (04/18/2020 1:20 PM CDT): Doing well with no angina. Recommend same meds and RTC 1 year. Dysphagia 12/18/2018 Overview (12/18/2018): Added automatically from request for surgery [id number] Keratosis, senilis 01/10/2017 Benign neoplasm of soft tissues 01/10/2017 Hypercholesterolemia 04/13/2014 Overview (03/03/2017): Hypercholesterolemia Assessment & Plan (08/23/2023 10:01 AM CDT): Contine Atorvastatin. Assessment & Plan (04/16/2022 9:18 AM CDT): LDL cholesterol is 112. Continue dietary modifications. Assessment & Plan (04/17/2021 9:20 AM CDT): Managed by Dr. Gonzalez. Hypertension Assessment & Plan (06/04/2024 2:20 PM CDT): Well controlled with amlodipine. No changes recommended. Assessment & Plan (08/23/2023 10:02 AM CDT): Continue amlodipine. Assessment & Plan (02/15/2023 12:41 PM CDT): Controlled. Continue amlodipine and metoprolol. Gastroesophageal reflux disease without esophagi tis COPD (chronic obstructive pulmonary disease) Assessment & Plan (02/15/2023 12:41 PM CDT): She is scheduled to see Pulmonary next week. Depression Resolved Problems Problem Noted Date Diagnosed Date Resolved Date Surgical wound infection 01/25/202307/2024 Social History Tobacco Use Types Packs/Day Years Used Date Smoking Tobacco: Former Smokeless Tobacco: Never Tobacco Cessation:Counseling Given: Not Answered Comments:Smoking History Packs/day: 0.25 Packs Alcohol Use Standard Drinks/Week Comments No 0 (1 standard drink = 0.6 oz pur e alcohol) Social Connection and Isolat ion Panel [NHANES] Answer Date Recorded In a typical week, how many times do you talk on the phone with family, friends, or neighbors? More than three times a week 01/18/2023 How often do you get togethe r with friends or relatives? More than three times a week 01/18/2023 How often do you attend chur ch or hoahaoism services? More than 4 times per year 01/18/2023 Do you belong to any clubs o r organizations such as religious groups, unions, fraternal or athletic groups, or school groups? No 01/18/2023 How often do you attend meet ings of the clubs or organizations you belong to? Never 01/18/2023 Are you , , di vorced, , never , or living with a partner? 01/18/2023 AUDIT-C Answer Date Recorded Q1: How often do you have a drink containing alc ohol? Monthly or less 04/21/2022 Q2: How many drinks containi ng alcohol do you have on a typical day when you are drinking? 1 or 2 04/21/2022 Q3: How often do you have si x or more drinks on one occasion? Less than monthly 04/21/2022 Overall Financial Resource Strain (CARDIA) Answe r Date Recorded How hard is it for you to pa y for the very basics like food, housing, medical care, and heating? Not hard at all 01/18/2023 PHQ-2 Answer Date Recorded PHQ-2 Total Score (If total score is 3 or more points, staff should administer the PHQ-9) 0 09/01/2021 Hunger Vital Sign Answer Date Recorded Within the past 12 months, y ou worried that your food would run out before you got the money to buy more. Never true 01/18/20 23 Within the past 12 months, t he food you bought just didn't last and you didn't have money to get more. Never true 01/18/2023 PRAPARE - Transportation Answer Date Re corded In the past 12 months, has l ack of transportation kept you from medical appointments or from getting medications? No 12/30 In the past 12 months, has l ack of transportation kept you from meetings, work, or from getting things needed for daily living? No 01/18/2023 Housing Stability Vital Sign Answer Lino e Recorded In the last 12 months, was t here a time when you were not able to pay the mortgage or rent on time? No 01/18/2023 In the last 12 months, how many places have you lived? 1 01/18/2023 In the last 12 months, was t here a time when you did not have a steady place to sleep or slept in a fpc (including now)? No 01/18/2023 Personal Safety Answer Date Recorded Have you ever been in or are you currently in a harmful physical or emotional relationship or is someone making you feel afraid or unsafe? Denies 08/07/2024 Comments No Sex and Gender Information Value Date Recorded Sex Assigned at Not on file Legal Sex Female 1:11 AM INSURANCE INVESTIGATOR Gender Identity Not on file Sexual Orientation Not on file Last Filed Vital Signs Vital Sign Reading Time Taken Comments Blood Pressure 122/80 09/25/2024 2:12 PM CDT Pulse 65 08/07/2024 6:17 PM CDT Temperature 36.7 ??C (98 ??F) 08/07/2024 5:10 PM CDT Respiratory Rate 18 08/07/2024 6:17 PM CDT Oxygen Saturation 95% 08/07/2024 6:17 PM CDT Inhaled Oxygen Concentration - - Weight 69.4 kg (153 lb) 09/25/2024 2:12 PM CDT Height 165.1 cm (5' 5 ) 09/25/2024 2:12 PM CDT Body Mass Index 25.46 09/25/2024 2:12 PM CDT Plan of Treatment Not on file Procedures Procedure Name Priority Date/Time Associated Diagnosis Comments SCREENING MAMMOGRAM BILATERAL W EARLINE Schedule Routine, Read Routine (OP Routine) 11/08/2022 12:44 PM INSURANCE INVESTIGATOR Encounter for screening mammogram for malignant neoplasm of breast DEXA AXIAL SKELETON BONE DENSITY 1 OR MORE SITES Schedule Routine, Read Routine (OP Routine) 11/08/2022 12:23 PM INSURANCE INVESTIGATOR Osteopenia, unspecified location Asymptomatic menopausal state COLONOSCOPY 04/22/2022 7:32 AM CDT HEPATITIS C ANTIBODY Routine 02/05/2019 7:21 AM CDT from Last 3 Months or Most Recently Relevant to Health Maintenance Results * (ABNORMAL) SCREENING MAMMOGRAM BILATERAL W EARLINE (11/08/2022 12:44 PM INSURANCE INVESTIGATOR) Anatomical Region Laterality Modality Breast Bilateral Mammography 11/09/2022 7:10 AM INSURANCE INVESTIGATOR Impressions 11/09/2022 7:10 AM INSURANCE INVESTIGATOR 1. ??Left breast asymmetry on the MLO view. ??Recommend diagnostic left breast mammogram with possible ultrasound. 2. ??No evidence of malignancy in the right breast. ??Recommend screening right breast mammogram in one year. BI-RADS: 0 - Additional imaging evaluation is necessary. The patient will be contacted. Electronically signed by: Cheng Gibson M.D. Narrative 11/09/2022 7:10 AM INSURANCE INVESTIGATOR EXAMINATION: SCREENING MAMMOGRAM BILATERAL W EARLINE ORDERING HEALTHCARE PROVIDER: ALHAJI PAYAN HISTORY: Routine screening mammography. COMPARISON: ??10/26/2021, 10/20/2020, 09/22/2019, 06/26/2018, 06/13/2017, 05/24/2016 TECHNIQUE: CC and MLO views of the bilateral breasts were obtained with digital technique using breast tomosynthesis with C view. Computer aided detection was utilized. FINDINGS: DENSITY: There are scattered fibroglandular elements in the bilateral breasts. BREASTS: There is a left breast asymmetry central to the nipple on the MLO view at middle depth. ??There are no suspicious masses, suspicious calcifications, or other suspicious findings in the right breast. us Alhaji Payan MD IMG MAMMO PROCEDURES Final Result * Dexa Axial Skeleton Bone Density 1 Or 2 Site (11/08/2022 12:23 PM INSURANCE INVESTIGATOR) Anatomical Region Laterality Modality Body N/A Other 11/08/2022 7:03 PM INSURANCE INVESTIGATOR Narrative 11/08/2022 7:05 PM INSURANCE INVESTIGATOR EXAM DESCRIPTION: ?? DEXA AXIAL SKELETON BONE DENSITY 1 OR MORE SITES REASON FOR STUDY: ?67 y/o ?? year old ?? F ??with given history of screening. ?? Postmenopausal Customer Complaint Clerk/Model: ?? [employer] SL (S/N [id number]) CLINICAL INFORMATION: Current height: ?? 65 ??inches ? Maximum height: 66.5 inches ? Weight: 132 pounds Risk factors: Postmenopausal COMPARISON: 10/20/2020, 06/13/2017. FINDINGS: AP LUMBAR SPINE L1-L4: Total BMD is ?? 0.769 ??g/cm2 T-score is -2.5 Dissimilar scan types or analysis methods precludes assessment for calculating a significant change. LEFT HIP: Total BMD is 0.694 g/cm2 T-score is -2.0 Dissimilar scan types or analysis methods precludes assessment for calculating a significant change. Femoral neck BMD is 0.704 g/cm2 T-score is -1.3 FRAX: FRAX not reported due to T-scores of hip, femoral neck and/or spine being at or below -2.5 (Osteoporosis). IMPRESSION: ??Based on the ??lumbar spine ??bone mineral density (T-score ??-2.5 ) the patient has ??osteoporosis . REFERENCE: Bone mineral density: ? Normal (T-score above or = -1.0) ? Low bone mass ??(T-score between -1.0 and -2.5) replaces the previously used term osteopenia ? Osteoporosis (T-score = or below -2.5) Medical evaluation for secondary causes of low bone mineral density may be appropriate. FRAX is a World Health Organization validated fracture risk assessment tool that calculates a person's 10 year probability of a major osteoporosis related fracture and hip fracture. ??According to the National Osteoporosis Foundation guidelines, postmenopausal women and men age 50 or older with low bone mass and a 10 year probability of a major osteoporosis related fracture = or greater than 20% or a 10 year probability of a hip fracture = or greater than 3% should be considered for treatment. For further information, including treatment recommendations, please refer to the 2013 ISCD Official Positions (http://www.iscd.org) and the NOF's Clinician's Guide to Prevention and Treatment of Osteoporosis (http://www.nof.org/professionals/clinical-guidelines) THIS IS AN ELECTRONICALLY VERIFIED FINAL REPORT 11/08/2022 7:05 PM - Electronically signed by ??Josh Avalos M.D. MF: [email or web address] D: ??11/08/2022 7:05 PM T: ??11/08/2022 7:05 PM Report ID: [id number] Reading Location: ??[id number] Procedure Note Josh Avalos MD - 11/08/2022 EXAM DESCRIPTION: DEXA AXIAL SKELETON BONE DENSITY 1 OR MORE SITES REASON FOR STUDY: 67 y/o year old F with given history ofscreening. Postmenopausal Customer Complaint Clerk/Model: [employer] SL (S/N [id number]) CLINICAL INFORMATION: Current height: 65 inches Maximum height: 66.5 inches Weight: 132 pounds Risk factors: Postmenopausal COMPARISON: 10/20/2020, 06/13/2017. FINDINGS: AP LUMBAR SPINE L1-L4: Total BMD is 0.769 g/cm2 T-score is -2.5 Dissimilar scan types or analysis methods precludes assessment for calculating a significant change. LEFT HIP: Total BMD is 0.694 g/cm2 T-score is -2.0 Dissimilar scan types or analysis methods precludes assessment for calculating a significant change. Femoral neck BMD is 0.704 g/cm2 T-score is -1.3 FRAX: FRAX not reported due to T-scores of hip, femoral neck and/or spine beingat or below -2.5 (Osteoporosis). IMPRESSION: Based on the lumbar spine bone mineral density (T-score -2.5 ) the patient has osteoporosis . REFERENCE: Bone mineral density: Normal (T-score above or = -1.0) Low bone mass (T-score between -1.0 and -2.5) replaces thepreviously used term osteopenia Osteoporosis (T-score = or below -2.5) Medical evaluation for secondary causes of low bone mineral density may be appropriate. FRAX is a World Health Organization validated fracture risk assessmenttool that calculates a person's 10 year probability of a major osteoporosisrelated fracture and hip fracture. According to the National OsteoporosisFoundation guidelines, postmenopausal women and men age 50 or older with low bonemass and a 10 year probability of a major osteoporosis related fracture = or greater than 20% or a 10 year probability of a hip fracture = or greaterthan 3% should be considered for treatment. For further information, including treatment recommendations, please referto the 2013 ISCD Official Positions (http://www.iscd.org) and the NOF's Clinician's Guide to Prevention and Treatment of Osteoporosis (http://www.nof.org/professionals/clinical-guidelines) THIS IS AN ELECTRONICALLY VERIFIED FINAL REPORT 11/08/2022 7:05 PM - Electronically signed by Josh Avalos M.D. MF: ANTOINE Report ID: [id number] Reading Location: [place] [address] Alhaji Payan MD IMG DXA PROCEDURES Final R esult * COLONOSCOPY (04/22/2022 7:32 AM CDT) Anatomical Region Laterality Modality Other Narrative Procedure Note Jaicel Mott MD - 04/22/2022 7:32 AM CDT [facility] Patient Name: Gabbie Chris Procedure Date: 04/22/2022 7:32 AM Date of : 1955 Admit Type: Outpatient Age: 66 Gender: Female Attending MD: Jaciel Mott M.D. Room: [facility] ENDOSCOPY ROOM 2 Note Status: Finalized Patient Profile: Refer to note in patient chart for documentation of history and physical. Procedure: Colonoscopy Indications: High risk colon cancer surveillance: Personalhistory of colonic polyps, Last colonoscopy: November 2016 Referring MD: Torito Gonzalez M.D. Providers: Jaciel Mott M.D. Impression: - Preparation of the colon was poor. - Hemorrhoids found on perianal exam. - Diverticulosis in the sigmoid colon, in the descending colon, in the transverse colon, at the hepatic flexure and in the ascending colon. - The examination was otherwise normal. - No specimens collected. Recommendation: - Discharge patient to home. - Resume previous diet. - Continue present medications. . - Repeat colonoscopy in 5 years for surveillance. - Return to primary care physician. Medicines: Propofol per Anesthesia Complications: No immediate complications. Estimated Blood Loss: Estimated blood loss: none. Procedure: Pre-Anesthesia Assessment: - This assessment was completed [Time ofAssessment] prior to the administration of sedation. The benefits, risks and alternatives of theprocedure and sedation were discussed and informed consentwas obtained. All questions were answered. Please referto the signed informed consent document in the medical record. The bowel preparation used was Miralax via split dose instruction. The bowel preparation usedwas bisacodyl tablets via single dose instruction. The scope was passed under direct vision. TheColonoscope [id number] was introduced through the anus and advanced to the the cecum, identified by appendiceal orifice and ileocecal valve. The colonoscopy was performed with moderate difficultydue to multiple diverticula in the colon and inadequate bowel prep. The patient tolerated the procedurewell. The quality of the bowel preparation was poor. The ileocecal valve, appendiceal orifice, and rectumwere photographed. Findings: Hemorrhoids were found on perianal exam. Multiple small and large-mouthed diverticula were found in thesigmoid colon, descending colon, transverse colon, hepatic flexure andascending colon. The exam was otherwise without abnormality. Electronically signed by Jaciel Mott M.D. Jaciel Mott M.D. 04/22/2022 9:21:50 AM Number of Addenda: 0 Note Initiated On: 04/22/2022 7:32 AM Procedure Code(s): --- Professional --- G0105, Colorectal cancer screening; colonoscopy on individual at high risk Diagnosis Code(s): --- Professional --- K57.30, Diverticulosis of large intestine without perforation orabscess without bleeding K64.9, Unspecified hemorrhoids Z86.010, Personal history of colonic polyps CPT copyright 2021 [employer]. All rights reserved. The codes documented in this report are preliminary and upon professional fee coder reviewmay be revised to meet current compliance requirements. Recognized by the [place] [employer] for promoting quality in endoscopy us Jaciel Mott MD ENDOSCOPY PROCEDURES Final Re sult * Hepatitis C antibody (02/05/2019 7:21 AM CDT) Hep C Ab Negative Negative [facility]ER[facility] LAW ([facility]ONY) Comment:Testing performed by : [facility], [address] [place] [address], [place]., [address] Blood specimen (specimen) 02/05/2019 7:21 AM CDT 02/05/2019 11:10 AM CDT Narrative [facility]ER[facility] ANI ([facility]ICIA) - 02/05/2019 11:58 AM CDT Torito Gonzalez MD LAB MICROBIOLOGY - GENERAL ORDERABLES Final Result [facility]) [address] [facility] [place] [address] from Last 3 Months or Most Recently Relevant to Health Maintenance Insurance MEDICARE [facility] [employer] MEDICARE [employer] Advance Directives For more information, please contact: [phone] * Full Code (Latest Code Status on File) Date Activated Date Inactivated Comments 01/16/2023 12:06 AM 01/18/2023 6:06 PM * Full Code Date Activated Date Inactivated Comments 04/22/2022 7:36 AM 04/22/2022 2:11 PM * Full Code Date Activated Date Inactivated Comments 01/15/2019 10:37 AM 01/15/2019 4:19 PM * Full Code Date Activated Date Inactivated Comments 01/15/2019 10:37 AM 01/15/2019 10:37 AM Care Teams Arch Cushion Skiving Machine Operator Relationship Specialty Start Date End Date Torito Gonzalez MD [address] [place] [address] PCP - General 02/25/17 [place] [address] [address] Consulting Physician Pulmonary Disease 01/30/24
--- OUTSIDE RECORDS SUMMARY | 2024-11-18 11:52 | XMS_ITS | Encounter Summary ---
Author Organization [facility] Address [address] [place] [address] Care Team Providers Care Bill Clerk Name Role Phone Torito Gonzalez MD Primary Care Provider [phone] Sol Lincoln MD Unavailable [phone] Reason for Referral * Diagnostic Imaging (Routine) - Authorized Specialty Diagnoses / Procedures Referred By Turner t Referred To Contact Diagnoses Visit for screening mammogram Procedures Screening Mammogram Bilateral W Alhaji Oneal MD [address] [place] [address] [address] [address] Phone: tel: fax: [facility] [address] [place] [address] Referral ID Status Reason Start Date Expiration Date V isits Requested Visits Authorized [id number] Authorized 09/25/2024 10/25/2025 1 1 Reason for Visit * Reason Comments Gynecologic Exam Annual Encounter Details Date Type Department Care Team (Late st Contact Info) Description 09/25/2024 2:30 PM CDT Office Visit [facility] [address] [facility] [address] [address] Alhaji Payan MD [address] [place] [address] [address] [address] Well woman exam (Primary Dx); Visit for screening mammogram Social History Tobacco Use Types Packs/Day Years [...] often do you attend chur ch or mu-ism services? More than 4 times per year 01/18/2023 Do you belong to any clubs o r organizations such as mandaeism groups, unions, fraternal or athletic groups, or [...] slept in a skilled nursing (including now)? No 01/18/2023 Personal Safety Answer Date Recorded Have you ever been in or are you currently in a harmful physical or emotional relationship or is someone making you feel afraid or unsafe? 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 Gender Identity Not on file Sexual Orientation Not on file documented as of this encounter Last Filed Vital Signs Vital Sign Reading Time Taken Comments Blood Pressure 122/80 09/25/2024 2:12 PM CDT Pulse - - Temperature - - Respiratory Rate - - Oxygen Saturation - - Inhaled Oxygen Concentration - - Weight 69.4 kg (153 lb) 09/25/2024 2:12 PM CDT Height 165.1 cm (5' 5 ) 09/25/2024 2:12 PM CDT Body Mass Index 25.46 09/25/2024 2:12 PM CDT documented in this encounter Progress Notes * Alhaji Payan MD - 09/25/2024 2:30 PM CDT Well Woman Exam Subjective: Pateint presents for: Gynecologic Exam (Annual ) Gabbie Chris is a 69 y.o. year old female who presents for a well woman exam. Gabbiedenies concerns. No pelvic pain. No vaginal bleeding or discharge. She is followed with osteoporosis. Contraception:Menopause. No LMP recorded. Patient has had a hysterectomy. Past Medical History: Diagnosis Date Arthritis Asthma Cataract 2018 Chronic sinusitis, unspecified location COPD (chronic obstructive pulmonary disease) (HCC) Dysphagia GERD (gastroesophageal reflux disease) HX OTHER MEDICAL 1977 ; Outcome: 7 lb(s) 2 oz Male HX OTHER MEDICAL 1970 ; Outcome: 7 lb(s) 4 oz Female Hypertension Hypertrophy of both inferior nasal turbinates Influenza A Lung disease Restless leg syndrome Sleep apnea Past Surgical History: Procedure Laterality Date APPENDECTOMY 1996 Appendectomy CARDIAC CATHETERIZATION 2010 HEART CATH CARDIAC CATHETERIZATION Left 01/17/2023 No stents placed-NSTEMI CATARACT EXTRACTION W/ INTRAOCULAR LENS IMPLANT 2017 COLONOSCOPY 12/06/2016 OTHER SURGICAL HISTORY 1976 : OTHER SURGICAL HISTORY 1970 : POLYPECTOMY SINUS SURGERY 01/05/2023 SINUS SURGERY 07/16/2024 TOTAL ABDOMINAL HYSTERECTOMY W/ BILATERAL SALPINGOOPHORECTOMY 1995 WESLEY/BSO TUBAL LIGATION 1976 Current Outpatient Medications: albuterol HFA (PROVENTIL HFA,VENTOLIN HFA,PROAIR HFA) 90 mcg/actuation inhaler, albuterol sulfate HFA 90 mcg/actuation aerosol inhaler INHALE 1 TO 2 PUFFS BY MOUTH EVERY 6 HOURS NEEDED FOR WHEEZING, Disp: , Rfl: amLODIPine (NORVASC) 5 mg tablet, Take 1 tablet (5 mg total) by mouth daily, Disp: 90 tablet, Rfl: 3 aspirin 81 mg tablet, take 1 tablet by oral route every day, Disp: 0, Rfl: 0 budesonide (PULMICORT) 0.5 mg/2 mL nebulizer solution, Take 2 mL (0.5 mg total) by nebulization daily, Disp: , Rfl: calcium carbonate (CALCIUM 600 ORAL), Take 1 tablet by mouth daily, Disp: , Rfl: denosumab (PROLIA) 60 mg/mL syringe, Inject 1 mL (60 mg total) under the skin once for 1 dose (Patient taking differently: Inject 1 mL (60 mg total) under the skin once Q 6 months for osteoporosis), Disp: 1 mL, Rfl: 0 dupilumab (Dupixent Pen) 200 mg/1.14 mL pen injector, Inject 200 mg under the skin every 2 (two) weeks, Disp: , Rfl: famotidine (PEPCID) 20 mg tablet, Take 1 tablet (20 mg total) by mouth every other day, Disp: , Rfl: fluticasone propionate (FLONASE) 50 mcg/actuation nasal spray, Administer 1 spray into each nostril2 (two) times a day as needed for rhinitis, Disp: 1 each, Rfl: 0 formoterol (PERFOROMIST) 20 mcg/2 mL nebulizer solution, Take 2 mL (20 mcg total) by nebulization daily, Disp: , Rfl: HYDROcodone-acetaminophen (NORCO) 5-325 mg per tablet, Take 1 tablet by mouth every 6 (six) hours as needed for pain, Disp: 15 tablet, Rfl: 0 ipratropium-albuteroL (DUO-NEB) 0.5-2.5 mg/3 mL nebulizer solution, Take 3 mL by nebulization every6 (six) hours as needed for shortness of breath As needed, Disp: , Rfl: Allergies Allergen Reactions Latex Rash Amoxicillin Stomach upset Doxycycline Other (See comments) Severe Back Pain Levofloxacin Palpitations Family History Problem Relation Age of Onset Heart disease Mother Coronary artery disease Mother Coronary artery disease; Hypertension Mother Hypertension; Liver cancer Father Melanoma Father Cancer Father Congenital heart disease Brother Congenital heart disease; Throat cancer Brother HPV Virus Hypertension Brother Diabetes Brother Diabetes mellitus; Heart attack Son 45 Maker No Known Problems Daughter Stroke Maternal Grandmother Diabetes Maternal Grandmother Alcohol abuse Brother Cancer Brother Hypertension Brother Social History Tobacco Use Smoking status: Former Smokeless tobacco: Never Tobacco comments: Smoking History Packs/day: 0.25 Packs Substance and Sexual Activity Drug use: Never Sexual activity: Not Currently Partners: Male Alcohol Use: Patient Declined (11/16/2023) [facility], [facility] AUDIT-C Frequency of Alcohol Consumption: Patient declined Average Number of Drinks: Patient declined Frequency of Binge Drinking: Patient declined Review of Systems Constitutional: Negative for chills, fatigue, fever and unexpected weight change. HENT: Negative for hearing loss, sore throat, tinnitus and trouble swallowing. Eyes: Negative for pain and visual disturbance. Respiratory: Positive for shortness of breath. Negative for cough and wheezing. Asthma Cardiovascular: Negative for chest pain, palpitations and leg swelling. Gastrointestinal: Negative for abdominal pain, blood in stool, constipation, diarrhea, nausea and vomiting. Endocrine: Negative for cold intolerance, heat intolerance and polydipsia. Genitourinary: Negative for dyspareunia, dysuria, frequency, hematuria, menstrual problem, pelvic pain, vaginal bleeding and vaginal discharge. Musculoskeletal: Positive for arthralgias and back pain. Negative for joint swelling and myalgias. Skin: Negative for color change and rash. Neurological: Negative for dizziness, numbness and headaches. Hematological: Does not bruise/bleed easily. Psychiatric/Behavioral: Negative for dysphoric mood, sleep disturbance and suicidal ideas. The patient is not nervous/anxious. Objective: BP 122/80 (BP Location: Right arm) Ht 165.1 cm (5' 5 ) Wt 153 lb (69.4 kg) BMI 25.46 kg/m?? Physical Exam Constitutional: Appearance: Normal appearance. She is well-developed. HENT: Head: Normocephalic. Eyes: Conjunctiva/sclera: Conjunctivae normal. Neck: Thyroid: No thyromegaly. Cardiovascular: Rate and Rhythm: Normal rate and regular rhythm. Pulmonary: Effort: Pulmonary effort is normal. Breath sounds: Normal breath sounds. Chest: Breasts: Right: No mass, nipple discharge, skin change or tenderness. Left: No mass, nipple discharge, skin change or tenderness. Abdominal: Palpations: Abdomen is soft. There is no mass. Tenderness: There is no abdominal tenderness. There is no rebound. Hernia: No hernia is present. Genitourinary: General: Normal vulva. Labia: Right: No lesion. Left: No lesion. Vagina: Normal. No vaginal discharge. Adnexa: Right: No mass or tenderness. Left: No mass or tenderness. Comments: Uterus surgically absent. Musculoskeletal: General: No tenderness. Cervical back: Neck supple. Lymphadenopathy: Cervical: No cervical adenopathy. Upper Body: Right upper body: No supraclavicular adenopathy. Left upper body: No supraclavicular adenopathy. Skin: General: Skin is warm and dry. Neurological: Mental Status: She is alert and oriented to person, place, and time. Psychiatric: Mood and Affect: Mood normal. Behavior: Behavior normal. Assessment and Plan: Normal exam. Diagnoses and all orders for this visit: Well woman exam (Primary) Visit for screening mammogram Comments: Script provided. Orders: - Screening Mammogram Bilateral W Hector; Future Colonoscopy was done in March of 2022 with a history of polyps. Rectal exam was deferred given current recommendations. Recommended screenings and preventive care discussed: Breast Self Exam encouraged. Pap deferred. Calcium and vitamin D BID recommended and cholesterol followed by PCP. Low fat, low carbohydrate diet and exercise encouraged. Return in about 2 years (around 09/25/2026) for annual exam. Alhaji Payan MD 09/25/2024 NING LEAD documented in this encounter Plan of Treatment Scheduled Orders Name Type Priority Associated Diagnoses Orde r Schedule Screening Mammogram Bilateral W Hector Imaging Schedule Routine, Read Routine (OP Routine) Visit for screening mammogram Expected: 09/25/2024, Expires: 11/25/2025 documented as of this encounter Visit Diagnoses Diagnosis Well woman exam- Primary Routine general medical examination at a [facility] Visit for screening mammogram documented in this encounter Care Teams Bill Clerk Relationship Specialty Start Date End Date Torito Gonzalez MD [address] [place] [address] PCP - General 02/25/17 [place] [id number] [address] Consulting Physician Pulmonary Disease 01/30/24 documented as of this encounter
--- OUTSIDE RECORDS SUMMARY | 2024-11-18 11:52 | XMS_ITS | Encounter Summary ---
Author Organization [facility] Address [address] [place] [address] Care Team Providers Care Bottom Precipitator Operator Name Role Phone Torito Gonzalez MD Primary Care Provider [phone] Sol Lincoln MD Unavailable [phone] Encounter Details Date Type Department Care Team (Late st Contact Info) Description 09/03/[address] [place] [phone] Prerna Berg RN Social History Tobacco Use Types Packs/Day Years Used Date Smoking Tobacco: Former Smokeless Tobacco: Never Comments:Smoking History Pac ks/day: 0.25 Packs Alcohol Use Standard Drinks/Week Comments [...] any clubs o r organizations such as congregational groups, unions, fraternal or athletic groups, or [...] place to sleep or slept in a chcf (including now)? No 01/18/2023 Personal Safety Answer Date Recorded Have you ever been in or are you currently in a harmful physical or emotional relationship or is someone making you feel afraid or unsafe? 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 Patient due mid December based on last injection. Patient called and scheduled. She confirmed date and time. documented in this encounter Plan of Treatment Not on file documented as of this encounter Visit Diagnoses Not on filedocumented in this encounter Care Teams Bottom Precipitator Operator Relationship Specialty Start Date End Date Torito Gonzalez MD [address] [place] [address] PCP - General 02/25/17 [place] [id number] [address] Consulting Physician Pulmonary Disease 01/30/24 documented as of this encounter
--- OUTSIDE RECORDS SUMMARY | 2024-11-18 11:52 | XMS_ITS | Encounter Summary ---
Author Organization [facility] Address [address] [place] [address] Phone Care Team Providers Care Rough And Trueing Machine Operator Name Role Phone Torito Gonzalez MD Primary Care Provider [phone] Sol Lincoln MD Unavailable [phone] Reason for Visit * Reason Comments Chronic pansinusitis Encounter Details Date Type Department Care Team (Late st Contact Info) Description 08/30/2024 9:20 AM CDT [facility] Visit [facility] ENT [address] [facility] Medical Office Building [address] [place] [address] [place] [address] [facility] [address] [place] [address] Chronic pansinusitis (Primary Dx); Polyp of nasal cavity; S/P FESS (functional endoscopic sinus surgery) Social History Tobacco Use Types Packs/Day Years [...] week 01/18/2023 How often do you attend [facility] or caodaism services? More than 4 times per year [...] place to sleep or slept in a detention (including now)? No 01/18/2023 Personal Safety Answer Date Recorded Have you ever been in or are you currently in a harmful physical or emotional relationship or is someone making you feel afraid or unsafe? 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 Gender Identity Not on file Sexual Orientation Not on file documented as of this encounter Last Filed Vital Signs Vital Sign Reading Time Taken Comments Blood Pressure - - Pulse - - Temperature - - Respiratory Rate - - Oxygen Saturation - - Inhaled Oxygen Concentration - - Weight 66.7 kg (147 lb) 08/30/2024 9:08 AM CDT Height 165.1 cm (5' 5 ) 08/30/2024 9:08 AM CDT Body Mass Index 24.46 08/30/2024 9:08 AM CDT documented in this encounter Progress Notes * Lydia Rojas MD - 08/30/2024 9:20 AM CDT Otolaryngology - Head & Neck Surgery Clinic Follow up Subjective Initial 04/16/24: Gabbie Chris is a 69 y.o. female who presents with sinus issues. Had 2 balloon-only surgeries in May 2022 and Jan [address] Philip[address] She states she has never had a nasal scope in office at all, had only balloon treatment. Had bad polyposis per Dr. Philip and now is on Dupixent, prescribed by him. Still feels clogged up in nose. Now getting pain behind eye on right--comes and goes. Throat feels that there is something in there, has felt that since the sinuses started being a problem 3 years ago. Used to do nasal rinses but isn't now, very rarely doing with a battery powered one. Not using nasal steroids either. Uses saline mist every once in a while. Sense of s melonie is variable depending on the smell. Had COVID pneumonia in 2021--was hospitalized and lost significant smell and taste that has persisted since that time. Not sure if has nasal allergies, but nasal symptoms are yearround. Has postnasal drip. Nasal congestion worse on right. Has frequent nosebleeds in right nostril at night. She is looking for a different ENT due to the 2 surgeries not seeming to help her and not being told how to use Dupixent. Interval 05/14/2024: having nosebleeds, from right nostril, lasts abut 5 minutes. Has had for some time since balloon sinuplasty. Uses tssues. Has been doing rinses and flonase but is not feeling better. Interval 08/16/2024: postop from full house FESS for CRSwNP on 08/07/24. Mild bleeding, minimal pain. Breathing through her nose well. Interval 08/30/2024: Doing well with her nose. Overall feeling much better. No further pain issues,no nasal obstruction. Has continued to do rinses. Past Medical History: Diagnosis Date Arthritis Asthma Cataract 2017 Chronic sinusitis, unspecified location COPD (chronic obstructive pulmonary disease) ([facility]) Dysphagia GERD (gastroesophageal reflux disease) HX OTHER MEDICAL 1976 ; Outcome: 7 lb(s) 2 oz Male HX OTHER MEDICAL 1970 ; Outcome: 7 lb(s) 4 oz Female Hypertension Hypertrophy of both inferior nasal turbinates Influenza A Lung disease Restless leg syndrome Sleep apnea Patient Active Problem List Diagnosis Hypercholesterolemia Keratosis, senilis Benign neoplasm of soft tissues Dysphagia CAD (coronary artery disease) Prinzmetal's angina ([facility]) ([facility]) Hx of colonic polyps Age-related osteoporosis without current pathological fracture NSTEMI (non-ST elevated myocardial infarction) ([facility]) ([facility]) Hypertension Gastroesophageal reflux disease without esophagitis COPD (chronic obstructive pulmonary disease) ([facility]) Depression Surgical wound infection Obstructive sleep apnea (adult) (pediatric) Chronic sinusitis Polyp of nasal cavity Hypertrophy of both inferior nasal turbinates Past Surgical History: Procedure Laterality Date APPENDECTOMY 1996 Appendectomy CARDIAC CATHETERIZATION 2010 HEART CATH CARDIAC CATHETERIZATION Left 01/17/2023 No stents placed-NSTEMI CATARACT EXTRACTION W/ INTRAOCULAR LENS IMPLANT 2018 COLONOSCOPY 12/06/2016 OTHER SURGICAL HISTORY 1976 : OTHER SURGICAL HISTORY 1970 : POLYPECTOMY SINUS SURGERY 01/05/2023 TOTAL ABDOMINAL HYSTERECTOMY W/ BILATERAL SALPINGOOPHORECTOMY 1995 [place]/BSO TUBAL LIGATION 1976 Social History Tobacco Use Smoking status: Former Smokeless tobacco: Never Tobacco comments: Smoking History Packs/day: 0.25 Packs Substance and Sexual Activity Drug use: Never Sexual activity: Not Currently Partners: Male Alcohol Use: Patient Declined (11/16/2023) Received from [facility], [facility] AUDIT-C Frequency of Alcohol Consumption: Patient declined Average Number of Drinks: Patient declined Frequency of Binge Drinking: Patient declined Family History Problem Relation Age of Onset [...] Alcohol abuse Brother Cancer Brother Hypertension Brother Allergies Allergen Reactions Latex Rash Amoxicillin Stomach upset Doxycycline Other (See comments) Severe Back Pain Levofloxacin Palpitations Current Outpatient Medications Medication Instructions albuterol HFA (PROVENTIL HFA,VENTOLIN HFA,PROAIR HFA) 90 mcg/actuation inhaler albuterol sulfate HFA 90 mcg/actuation aerosol inhaler INHALE 1 TO 2 PUFFS BY MOUTH EVERY 6 HOURS NEEDED FOR WHEEZING amLODIPine (NORVASC) 5 mg, oral, Daily aspirin 81 mg budesonide (PULMICORT) 0.5 mg, nebulization, Daily calcium carbonate (CALCIUM 600 ORAL) 1 tablet, oral, Daily denosumab (PROLIA) 60 mg, subcutaneous, Once Dupixent Pen 200 mg, subcutaneous, Every 2 weeks famotidine (PEPCID) 20 mg, oral, Every other day fluticasone propionate (FLONASE) 50 mcg/actuation nasal spray 1 spray, each nostril, 2 times daily PRN formoterol (PERFOROMIST) 20 mcg/2 mL nebulizer solution 2 mL, nebulization, Daily HYDROcodone-acetaminophen (NORCO) 5-325 mg per tablet 1 tablet, oral, Every 6 hours PRN ipratropium-albuteroL (DUO-NEB) 0.5-2.5 mg/3 mL nebulizer solution 3 mL, nebulization, Every 6 hours PRN, As needed Review of Systems A complete past medical history, family history, social history, and 10 system review of systems was completed by the patient on the Patient History Form and reviewed with the patient during the visit on 08/30/2024. All review of systems not otherwise marked on the form are negative. The Patient History Form can be found in the electronic medical record as a scanned document. Objective Physical Exam: Vitals: 08/30/24 0908 Weight: 66.7 kg (147 lb) Height: 165.1 cm (5' 5 ) General: No apparent distress, well-nourished Head and Face: Normocephalic, atraumatic. Skin: No cutaneous lesions of the face or neck. Eyes: EOMI, PERRL, sclera white, conjunctiva clear Ears: Normal set, no drainage Nose: Dorsum is midline. No drainage or discharge. No bleeding. Septum deviated right. Oral Cavity/Oropharynx: No visible mucosal lesions. Floor of mouth is pink and soft. No bleeding. Tongue is midline. Pharynx is clear. Tonsils equal bilaterally without lesions. Neck: Soft, flat, no lymphadenopathy, salivary glands are soft and non-tender to palpation Cardiovascular: Extremities are warm and well perfused. No cyanosis. Pulmonary: Normal quiet breathing on room air. No respiratory distress, stridor, or wheeze. Neurologic: Alert and oriented, face symmetric, facial sensation intact bilaterally Procedure: Bilateral sinonasal endoscopy with debridement Indication: Postoperative sinus surgery debridement #2 Description: The patient's nose was topically anesthetized and decongested. A rigid 30 degree endoscope was placed in the right nasal cavity. Crusting was debrided using a tucker tip suction and Arnulfo forceps. The scope was advanced to the middle meatus, where crusting was removed with the suction. There was no bleeding, purulence or scarring. The maxillary antrostomy and ethmoidectomy and sphenoidotomy sites were open without polyps or purulence.The frontal outflow tract was clear. The endoscope was then removed and placed in the left nasal cavity. Crusting was debrided with the tucker tip suction and Arnulfo forceps. The scope was advanced to the middle meatus, where crusting was removed with the suction. The maxillary antrostomy and ethmoidectomy and sphenoidotomy sites were openwithout polyps or purulence. The frontal outflow tract is clear. The patient tolerated the procedure well. Pathology 08/07/24: Sinus contents, bilateral, excision: - Mild edema and mild chronic inflammation Radiology: I personally reviewed and independently interpreted the images and report from CT sinus performed 05/14/24. My findings are bilateral partial ethmoidectomy with sinusitis and possible polyps in residual anterior and posterior ethmoids, near-complete opacification of bilateral maxillary sinuses, scarring occluding maxillary sinuses bilaterally, sphenoid sinusitis. Frontal outflow tracts occluded bilaterally wtihout severe frontal sinusitis. Absence of middle turbinate bilaterally. Left inferior turbinate hypertrophy, septum deviated right. Assessment /Plan Assessment and Plan: 69 y.o. year old female with sinusitis w nasal polyposis with prior balloon sinuplasty x 2 with extreme scarring of sinus cavities without view into any sinus, with persistent symptoms and new onset eye pain, as well as nasal congestion, hyposmia, now s/p full house FESS for chronic pansinusitis with polyps - continue rinses BID and flonase BID. If burdensome, can consider cutting rinse back to 1/day, butif symptoms recur should increase to BID again. Continue Dupixent per outside ENT - polypoid edema improved in appearance today. Follow up 3 months. The note in its entirety has been confirmed by me, the attending physician. Parts of the note were initially recorded by my staff. Lydia Rojas M.D. [employer]ains[employer] Department of Otolaryngology-Head and Neck Surgery [facility] Clinic phone: 08/30/2024 documented in this encounter Plan of Treatment Not on file documented as of this encounter Visit Diagnoses Diagnosis Chronic pansinusitis- Primary Other chronic sinusitis Polyp of nasal cavity S/P FESS (functional endoscopic sinus surgery) Other postprocedural status documented in this encounter Care Teams Rough And Trueing Machine Operator Relationship Specialty Start Date End Date Torito Gonzalez MD [address] [place] [address] PCP - General 02/25/17 [place] [address] [address] [facility] [address] [place] [id number] Consulting Physician Pulmonary Disease 01/30/24 documented as of this encounter
--- OUTSIDE RECORDS SUMMARY | 2024-11-18 11:52 | XMS_ITS | Encounter Summary ---
Author Organization [facility] Address [address] [place] [address] Phone Care Team Providers Care Binder Cutter Hand Name Role Phone Torito Gonzalez MD Primary Care Provider [phone] Sol Lincoln MD Unavailable [phone] Reason for Visit * Reason Comments Post-op Encounter Details Date Type Department Care Team (Late st Contact Info) Description 08/16/2024 8:00 AM CDT Office Visit [facility]) - [facility] ENT [address] [facility] Medical Office [address] [place] [address] [place] [address] [facility] [address] [place] [address] Chronic pansinusitis (Primary Dx); Polyp [...] week 01/18/2023 How often do you attend [facility] or mandaeism services? More than 4 times per year 01/18/2023 Do you belong to any clubs o r organizations such as yazdanism groups, unions, fraternal or athletic groups, or [...] place to sleep or slept in a group home (including now)? No 01/18/2023 Personal Safety Answer Date Recorded Have you ever been in or are you currently in a harmful physical or emotional relationship or is someone making you feel afraid or unsafe? Denies 08/07/2024 Comments No Sex and Gender Information Value Date Recorded Sex Assigned at Not on file Legal Sex Female 1:11 AM MAMMOGRAPHER Gender Identity Not on file Sexual Orientation Not on file documented as of this encounter Last Filed Vital Signs Vital Sign Reading Time Taken Comments Blood Pressure - - Pulse - - Temperature - - Respiratory Rate - - Oxygen Saturation - - Inhaled Oxygen Concentration - - Weight 66.7 kg (147 lb) 08/16/2024 7:54 AM CDT Height 165.1 cm (5' 5 ) 08/16/2024 7:54 AM CDT Body Mass Index 24.46 08/16/2024 7:54 AM CDT documented in this encounter Progress Notes * Lydia Rojas MD - 08/16/2024 8:00 AM CDT Otolaryngology - Head & Neck [...] minimal pain. Breathing through her nose well. Past Medical History: Diagnosis Date Arthritis Asthma Cataract 2017 Chronic sinusitis, unspecified location COPD (chronic obstructive pulmonary disease) ([facility]) Dysphagia GERD (gastroesophageal reflux disease) HX OTHER MEDICAL 1976 ; Outcome: 7 lb(s) 2 oz Male HX OTHER MEDICAL 1970 ; Outcome: 7 lb(s) 4 oz Female Hypertension Hypertrophy of both inferior nasal turbinates Influenza A Lung disease Restless leg syndrome Sleep apnea Patient Active Problem List Diagnosis Hypercholesterolemia Keratosis, senilis Benign neoplasm of soft tissues Dysphagia CAD (coronary artery disease) Prinzmetal's angina ([facility] ([facility]) Hx of colonic polyps Age-related osteoporosis without current pathological fracture NSTEMI (non-ST elevated myocardial infarction) ([facility] ([facility]) Hypertension Gastroesophageal reflux disease without esophagitis COPD (chronic obstructive pulmonary disease) ([facility]) Depression Surgical wound infection Obstructive sleep apnea [...] Sexual Activity Drug use: Never Sexual activity: Defer Partners: Male Alcohol Use: Patient Declined (11/16/2023) Re[facility] from [facility], [facility] AUDIT-C Frequency of Alcohol Consumption: Patient [...] No Known Problems Daughter Stroke Maternal Grandmother Alcohol abuse Brother Hypertension Brother Allergies Allergen Reactions Latex [...] with the patient during the visit on 08/16/2024. All review of systems not otherwise marked on the form are negative. The Patient History Form can be found in the electronic medical record as a scanned document. Objective Physical Exam: There were no vitals filed for this visit. General: No apparent distress, well-nourished Head and [...] with debridement Indication: Postoperative sinus surgery debridement #1 Description: The patient's nose was topically anesthetized [...] eye pain, as well as nasal congestion, hyposmia. Also has Now s/p full house FESS for chronic pansinusitis with polyps - continue rinses BID and flonase BID. Continue Dupixent - f/u 2-3 weeks due to polypoid edema of sinuses under clot. If still present then will likely do budesonide rinses The note in its entirety has been confirmed by me, the attending physician. Parts of the note were initially recorded by my staff. Lydia Rojas M.D. [employer] Department of Otolaryngology-Head and Neck Surgery [facility] Clinic phone: 08/16/2024 documented in this encounter Plan of Treatment Not on file documented as of this encounter Visit Diagnoses Diagnosis Chronic pansinusitis- Primary Other chronic sinusitis Polyp of nasal cavity S/P FESS (functional endoscopic sinus surgery) Other postprocedural status documented in this encounter Care Teams Binder Cutter Hand Relationship Specialty Start Date End Date Torito Gonzalez MD [address] [place] [address] PCP - General 02/25/17 [place] [address] [address] Consulting Physician Pulmonary Disease 01/30/24 documented as of this encounter
--- OUTSIDE RECORDS SUMMARY | 2024-11-18 11:52 | XMS_ITS | Clinical Summary ---
Author Organization [facility] Address [address] [place] [address] Care Team Providers Care Vendor Management Consultant Name Role Phone Torito Gonzalez MD Primary Care Provider [phone] Sol Lincoln MD Unavailable [phone] Allergies Active Allergy Reactions Criticality Noted Date [...] 12/2023 NSTEMI (non-ST elevated myocardial infarction) ( [facility]) 01/15/2023 Age-related osteoporosis wit hout current pathological fracture 12/22/2022 Hx of colonic polyps 04/15/2022 Overview (04/15/2022): Added automatically from request for surgery [id number] Prinzmetal's angina ([facility]) 04/17/2021 Assessment & Plan (08/23/2023 10:01 AM [...] (12/18/2018): Added automatically from request for surgery [id number] Keratosis, senilis 01/10/2017 Benign neoplasm of soft [...] Date Resolved Date Surgical wound infection 01/25/202307/2024 Encounters Date Type Department Care Team Description 09/25/2024 2:30 PM CDT Office Visit [facility] [address] [place] [address] Alhaji Payan MD Well woman exam (Primary Dx); Visit for screening mammogram 09/03/2024 Telephone [facility] [address] [place] [address] Prerna Berg RN 08/30/2024 9:20 AM CDT Office Visit [facility] - [facility] [address] [facility] [address] [place] [address] Lydia Rojas MD Chronic pansinusitis (Primary Dx); Polyp of nasal cavity; S/P FESS (functional endoscopic sinus surgery) from Last 3 Months Surgical History Surgery Date Site/Laterality Comments OTHER SURGICAL HISTORY 11/28/1976 - 11/27/1977 : OTHER SURGICAL HISTORY 11/28/1970 - 11/27/1971 : TOTAL ABDOMINAL HYSTERECTOMY W/ BILATERAL SALPINGOOPHORECTOMY 11/28/1995 - 11/27/1996 WELSEY/BSO APPENDECTOMY 11/28/1995 - 11/27/1996 Appendectomy CARDIAC CATHETERIZATION 11/28/2009 - 11/27/2010 HEART CATH CATARACT EXTRACTION W/ INTRAOCULAR LENS IMPLANT 11/28/2017 - 11/27/2018 COLONOSCOPY 12/06/2016 POLYPECTOMY SINUS SURGERY 01/05/2023 CARDIAC CATHETERIZATION 01/17/2023 Left No stents placed-NSTEMI TUBAL LIGATION 1976 SINUS SURGERY 07/16/2024 Medical History Medical History Date Comments Hx Other Medical 1976 ; Outc ome: 7 lb(s) 2 oz Male Hx Other Medical 1970 ; Outc ome: 7 lb(s) 4 oz Female Dysphagia GERD (gastroesophageal reflux disease) Hypertension Influenza A Restless leg syndrome Arthritis Cataract 2018 Sleep apnea Asthma Lung disease COPD (chronic obstructive pu lmonary disease) (HCC) Chronic sinusitis, unspecified location Hypertrophy of both inferior nasal turbinates Family History Medical History Relation Name Comments Congenital heart disease Brother 1 Con genital heart disease; Throat cancer Brother 1 HPV Virus Diabetes Brother 2 Joe Diabetes mellit us; Hypertension Brother 2 Joe Hypertension Brother 3 Joe H Alcohol abuse Brother 4 Gene Cancer Brother 4 Gene No Known Problems Daughter Cancer Father Bucky Liver cancer Father Bucky Melanoma Father Bucky Diabetes Maternal Grandmother Lu Stroke Maternal Grandmother Lu Coronary artery disease Mother Nasreen Karin nary artery disease; Heart disease Mother Nasreen Hypertension Mother Nasreen Hypertension; Heart attack Son Maker Relation Name Status Comments Brother 1 Brother 2 Joe Brother 3 Joe H Brother 4 Gene Daughter Alive Father Bucky Maternal Grandmother Lu Mother Nasreen Son Alive Social History Tobacco Use Types Packs/Day Years [...] week 01/18/2023 How often do you attend [facility] or gnosticism services? More than 4 times per year 01/18/2023 Do you belong to any clubs o r organizations such as tenriism groups, unions, fraternal or athletic groups, or [...] place to sleep or slept in a long term (including now)? No 01/18/2023 Personal Safety Answer Date Recorded Have you ever been in or are you currently in a harmful physical or emotional relationship or is someone making you feel afraid or unsafe? Denies 08/07/2024 Comments No Sex and Gender Information Value Date Recorded Sex Assigned at Not on file Legal Sex Female 1:11 AM MACHINE II COREMAKER Gender Identity Not on file Sexual Orientation Not on file Obstetrics History Para Term AB IAB SAB Ectopic Multiple Livin g Live Births 2 2 2 0 0 0 0 0 0 2 2 Date Outcome GA Total Labor Labor/2nd/3rd Weight Sex Type Anes PTL Marita A1 A5 Name Clin 1 Term F Vag-S pont Living 7 Term M Vag-S pont Living Last Filed Vital Signs Vital Sign Reading [...] 09/25/2024 2:12 PM CDT Plan of Treatment Health Maintenance Due Date Last Done Comments Pneumococcal vaccine 65+ (1 of 2 - PCV) 1959 DTaP/Tdap/Td Vaccine (1 - Tdap) 1964 Hepatitis B Screening 1971 Zoster Vaccine (1 of 2) 2003 Well Visit 65+ 05/28/2020 05/28/2019, 04/29, 05/16/2017 Depression Screening 09/01/2022 09/01/2021, 08/13/2020, 05/28/2019, Additional history exists Breast Cancer Screening-Mammogram 11/08/2023 11/08/2022, 11/08/2022, 10/26/2021, Additional history exists Covid-19 Vaccine (3 - 2023-2 5 season) 2024 02/24/2021, 02/03/2021 Influenza Vaccine (#1) 2024 09/14/2022, 2019 Osteoporosis Screening-Bone Density Scan 11/08/2024 11/08/2022, 11/08/2022, 10/20/2020, Additional history exists Fall Risk Assessment 08/07/2025 08/07/2024 Colon Cancer Screening-Colonoscopy 04/22/2032 04/22/2022, 12/06/2016, 12/06/2016, Additional history exists Hepatitis C Screening Completed 02/05/2019 Colon Cancer Screening-CT Colonography Discontinued 04/22/2022, 12/06/2016, 12/06/2016, Additional history exists Colon Cancer Screening-DNA Stool Discontinued 04/22/2022, 12/06/2016, 12/06/2016, Additional history exists Colon Cancer Screening-FIT Discontinued 04/22, 12/06/2016, 12/06/2016, Additional history exists Colon Cancer Screening-Sigmoidoscopy Discontinued 04/22/2022, 12/06/2016, 12/06/2016, Additional history exists Procedures Procedure Name Priority Date/Time Associated Diagnosis Comments SCREENING MAMMOGRAM BILATERAL W EARLINE Schedule Routine, Read Routine (OP Routine) 11/08/2022 12:44 PM MACHINE II COREMAKER Encounter for screening mammogram for malignant neoplasm of breast DEXA AXIAL SKELETON BONE DENSITY 1 OR MORE SITES Schedule Routine, Read Routine (OP Routine) 11/08/2022 12:23 PM MACHINE II COREMAKER Osteopenia, unspecified location Asymptomatic menopausal state COLONOSCOPY 04/22/2022 7:32 AM CDT HEPATITIS C ANTIBODY Routine 02/05/2019 7:21 AM CDT from Last 3 Months or Most Recently Relevant to Health Maintenance Results * (ABNORMAL) SCREENING MAMMOGRAM BILATERAL W EARLINE (11/08/2022 12:44 PM MACHINE II COREMAKER) Anatomical Region Laterality Modality Breast Bilateral Mammography 11/09/2022 7:10 AM MACHINE II COREMAKER Impressions 11/09/2022 7:10 AM MACHINE II COREMAKER 1. ??Left breast asymmetry on the MLO view. ??Recommend diagnostic left breast mammogram with possible ultrasound. 2. ??No evidence of malignancy in the right breast. ??Recommend screening right breast mammogram in one year. BI-RADS: 0 - Additional imaging evaluation is necessary. The patient will be contacted. Electronically signed by: Cheng Gibson M.D. Narrative 11/09/2022 7:10 AM MACHINE II COREMAKER EXAMINATION: SCREENING MAMMOGRAM BILATERAL W EARLINE ORDERING [...] 1 Or 2 Site (11/08/2022 12:23 PM MACHINE II COREMAKER) Anatomical Region Laterality Modality Body N/A Other 11/08/2022 7:03 PM MACHINE II COREMAKER Narrative 11/08/2022 7:05 PM MACHINE II COREMAKER EXAM DESCRIPTION: ?? DEXA AXIAL SKELETON BONE DENSITY 1 OR MORE SITES REASON FOR STUDY: ?67 y/o ?? year old ?? F ??with given history of screening. ?? Postmenopausal Serologist/Model: ?? [employer] (S/N [id number]) CLINICAL INFORMATION: Current height: ?? 65 ??inches [...] PM T: ??11/08/2022 7:05 PM Report ID: [id number] Reading Location: ??[id number] Procedure Note Josh Avalos MD - 11/08/2022 EXAM DESCRIPTION: DEXA AXIAL SKELETON BONE DENSITY 1 OR MORE SITES REASON FOR STUDY: 67 y/o year old F with given history ofscreening. Postmenopausal Serologist/Model: [employer] (S/N [id number]) CLINICAL INFORMATION: Current height: 65 inches Maximum [...] Josh Avalos M.D. MF: ANTOINE Report ID: [id number] Reading Location: [place] [address] [place] Alhaji Payan MD IMG DXA PROCEDURES Final R esult * COLONOSCOPY (04/22/2022 7:32 AM CDT) Anatomical Region Laterality Modality Other Narrative Procedure Note Jaciel Mott MD - 04/22/2022 7:32 AM CDT [facility] Patient Name: Gabbie Chris Procedure Date: 04/22/2022 7:32 AM Date of : 1955 Admit Type: Outpatient Age: 66 Gender: Female Attending MD: Jaciel Mott M.D. Room: [facility] ENDOSCOPY ROOM 2 Note Status: Finalized Patient [...] scope was passed under direct vision. TheColonoscope [id number] was introduced through the anus and advanced [...] Personal history of colonic polyps CPT copyright 2020 [employer]. All rights reserved. The codes documented in this report are preliminary and upon social sciences professor reviewmay be revised to meet current compliance requirements. Recognized by the [employer] for promoting quality in endoscopy us Jaciel Mott MD ENDOSCOPY PROCEDURES Final Re sult * Hepatitis C antibody (02/05/2019 7:21 AM CDT) Hep C Ab Negative Negative [facility] ([place]) Comment:Testing performed by : [facility], [id number] [place] [address], [place]., [address] Blood specimen (specimen) 02/05/2019 7:21 AM CDT 02/05/2019 11:10 AM CDT Narrative [facility] - 02/05/2019 11:58 AM CDT Torito Gonzalez MD LAB MICROBIOLOGY - GENERAL ORDERABLES Final Result [employer] [address] Department [place] [address] from Last 3 Months or Most Recently Relevant to Health Maintenance Insurance MEDICARE [facility] MEDICARE [employer] [employer] [place] [employer] Advance Directives For more information, please contact: [phone] * Full Code (Latest Code Status on File) Date Activated Date Inactivated Comments 01/16/2023 12:06 AM 01/18/2023 6:06 PM * Full Code Date Activated Date Inactivated Comments 04/22/2022 7:36 AM 04/22/2022 2:11 PM * Full Code Date Activated Date Inactivated Comments 01/15/2019 10:37 AM 01/15/2019 4:19 PM * Full Code Date Activated Date Inactivated Comments 01/15/2019 10:37 AM 01/15/2019 10:37 AM Care Teams Vendor Management Consultant Relationship Specialty Start Date End Date Torito Gonzalez MD [address] [place] [address] PCP - General 02/25/17 [place] [address] [address] Consulting Physician Pulmonary Disease 01/30/24
--- OUTSIDE RECORDS SUMMARY | 2024-11-18 11:52 | XMS_ITS | Data Portability ---
Author Organization [place] [facility] [place], Main Office Address [address] [place] [address] Assessment No assessment recorded. Plan of Treatment Reminders Order Date Submit Date Provider Last Modified By Organization Details Last Modified Time Details Appointments None record ed. Lab None record ed. Referral None record ed. Procedures None record ed. Surgeries None record ed. Imaging None record ed. Medication Orders None record ed. Patient TargetsNo targets recorded. Patient Instructions Encounter Date Encounter Id Patient Instructions Last Modified By Organization Details Last Modified Time 02/17/2023 [id number] we will continue to work on her authorization for her biologic [email or web address] Not available 02/17/2023 11:27:01 Reason for Referral None Reported. Results Created Date Observation Date Name Description Value Unit Range Abnormal Flag Note LastModifiedBy Organization Detail LastModifiedTime 05/28/2005/28/2022 POTAS SIUM potassium 4.4 mmol/ L 3.5-5. 1 Not Available [facility] (Lab) [address] [place], [address], 05/28/2022 09:30:08 05/28/20 22 05/28/2022 PLATE LET COUNT platelets 226 x10'3 /uL 150-40 0 Not Available [facility] (Lab) [address] [place], [address], 05/28/2022 09:18:10 05/28/20 22 05/28/2022 HEMOG LOBIN /ALYCE TOCRI T hemoglobin 15.0 g/dL 12.0-1 5.6 Not Available [facility] (Lab) [address] [place], [address], 05/28/2022 09:18:08 05/28/20 22 05/28/2022 HEMOG LOBIN /ALYCE TOCRI T hematocrit 45.8 % 35.7-4 5.7 high Not Available [facility] (Lab) [address] [place], [address], 05/28/2022 09:18:08 01/05/20 23 01/05/2023 POTAS SIUM potassium 3.6 mmol/ L 3.5-5. 1 Not Available [facility] (Lab) [address] [place], [address], 01/05/2023 08:35:39 01/05/20 23 01/05/2023 PLATE LET COUNT platelets 256 x10'3 /uL 150-40 0 Not Available [facility] (Lab) [address] [place], [address], 01/05/2023 08:35:19 01/05/20 23 01/05/2023 HEMOG LOBIN /ALYCE TOCRI T hemoglobin 15.0 g/dL 12.0-1 5.6 Not Available [facility] (Lab) [address] [place], [address], 01/05/2023 08:33:31 01/05/20 23 01/05/2023 HEMOG LOBIN /ALYCE TOCRI T hematocrit 45.9 % 35.7-4 5.7 high Not Available [facility] (Lab) [address] [place], [address], 01/05/2023 08:33:31 12/12/19 23 12/10/2022 CT, sinus es, w/o contr ast No observ ation record ed. [id number] [facility] [address] [facility], [place], [address], 01/27/2023 00:33:23 12/16/19 23 12/10/2022 CT, sinus es, w/o contr ast No observ ation record ed. [id number] [facility] Podiatry Office [address] [facility], [place], [address], 01/27/2023 00:33:23 Result Notes None recorded. Problems Name Problem SNOMED Code Status Onset Date Resolution Date Notes Provider Name and Address Organization Details Recorded Time Chronic left maxillary sinusitis 5965246239756 9101 Active 2021 Not Available [facility] 3 00:30:14 Postoperat ophelia pain 008745700 Active 2022 Not Available [facility] 3 00:30:14 Chronic maxillary sinusitis 32510192 Active 2022 Not Available [facility] 3 00:30:14 Chronic sphenoidal sinusitis 30225037 Active 2021 Not Available [facility] 3 00:30:14 Chronic sinusitis 07612800 Active 2021 Not Available [facility] 3 00:30:14 Chronic frontal sinusitis 35605447 Active 2021 Not Available [facility] 3 00:30:14 Chronic ethmoidal sinusitis 36283355 Active 2021 Not Available [facility] 3 00:30:14 Chronic pansinusit is 88950144 Active 2022 Not Available [facility] 3 00:30:14 Polyp of nasal sinus 06611944 Active 2022 TRACY Valdovinos [facility] 3 08:51:50 Problem Notes None recorded. Procedures Surgical History Date Name Laterality Status Provider Name and Address Organization Details Recorded Time 01/05/20 23 ENDOSCOPY, NASAL/SINUS, WITH FRONTAL SINUS EXPLORATION (SURG) completed Not Available [facility] 01/27/2023 00:33:17 05/28/20 22 ENDOSCOPY, NASAL/SINUS, W/ MAXILLARY ANTROSTOMY & TISSUE REMOVAL (SURG) completed Not Available [facility] 01/27/2023 00:33:17 Imaging Results Imaging Date Name Status LastModified by [facility] Details LastModified Time 12/10/2022 CT, sinuses, w/o contrast completed [id number] [facility] [address] [place], [address], 01/27/2023 00:33:23 12/10/2022 CT, sinuses, w/o contrast completed [id number] [facility] Podiatry Office [address] [place], [address], 01/27/2023 00:33:23 Procedure Notes None recorded. Medical Equipment None Reported. Allergies Allergen ID Allergen Name Allergen Category Reaction Reaction Severity Criticality Documentation Date Start Date Code Code System Note Provider Name and Address Organization Details Recorded Time 28431 amoxicill in medicatio n Not available Not available Not available 01/27/2023 723 RxNorm Not Available [facility] 00:33:03 Medications Name Sig Start Date Stop Date Status Note LastModified by Organization Details LastModified Time prednisone 10 mg tablet TAKE 1 TABLET BY MOUTH ONCE DAILY 12/13 completed Not Available Not Available Not Available ipratropium 0.5 mg-albutero l 3 mg (2.5 mg base)/3 mL nebulizatio n soln INHALE 3ML BY NEBULIZAT ION 4 TIMES DAILY active Not Available Not Available No t Available famotidine 10 mg tablet Take 1 tablet every day by oral route. 2021 active Not Available Not Available Not Avai lable azithromyci n 250 mg tablet TAKE 2 TABLETS BY MOUTH ON DAY 1, AND THEN TAKE 1 TABLET BY MOUTH ONCE A DAY ON DAY 2 THROUGH DAY 5 12/13 completed Not Available Not Available Not Available benzonatate 200 mg capsule TAKE 1 CAPSULE BY MOUTH THREE TIMES DAILY FOR COUGH FOR UP TO 14 DAYS active Not Available Not Available No t Available clarithromy carolyn 500 mg tablet TAKE 1 TABLET BY MOUTH TWICE DAILY FOR 10 DAYS 07/26 completed Not Available Not Available Not Available prednisone 20 mg tablet TAKE 1 TABLET BY MOUTH ONCE DAILY 07/26 completed Not Available Not Available Not Available amlodipine 5 mg tablet TAKE 1 TABLET BY MOUTH ONCE DAILY active Not Available Not Available No t Available sulfamethox azole 800 mg-trimetho prim 160 mg tablet TAKE 1 TABLET BY MOUTH TWICE DAILY FOR 7 DAYS 02/17 completed Not Available Not Available Not Available tramadol 50 mg tablet TAKE 1 TABLET BY MOUTH TWICE DAILY 02/17 completed Not Available Not Available Not Available ropinirole 0.25 mg tablet TAKE 4 TABLETS BY MOUTH NIGHTLY active Not Available Not Available No t Available benzonatate 100 mg capsule TAKE 2 CAPSULES BY MOUTH THREE TIMES DAILY NEEDED FOR COUGH 02/17 completed Not Available Not Available Not Available hydrocodone 7.5 mg-acetamin ophen 325 mg tablet Take 1 tablet every 6 hours by oral route. 02/17 completed Not Available Not Available Not Available cephalexin 500 mg capsule TAKE 1 CAPSULE BY MOUTH EVERY 6 HOURS 02/17 completed Not Available Not Available Not Available oseltamivir 75 mg capsule TAKE 1 CAPSULE BY MOUTH EVERY 12 HOURS FOR 5 DAYS 02/17 completed Not Available Not Available Not Available triamcinolo ne acetonide 0.1 % topical ointment APPLY OINTMENT TOPICALLY TO AFFECTED AREA OF THE ECZEMA ON HAND TWICE DAILY FOR 21 DAYS 02/18 completed Not Available Not Available Not Available Advair Diskus 250 mcg-50 mcg/dose powder for inhalation INHALE 1 DOSE BY MOUTH EVERY 12 HOURS active Not Available Not Available No t Available budesonide 0.25 mg/2 mL suspension for nebulizatio n Inhale 2 mL twice a day by nebulizat ion route. 2021 active Not Available Not Available Not Avai lable budesonide 0.5 mg/2 mL suspension for nebulizatio n USE 2 ML IN NEBULIZER TWICE DAILY 02/17 completed Not Available Not Available Not Available Baby Aspirin 81 mg chewable tablet Chew 1 tablet every day by oral route. 2021 active Not Available Not Available Not Avai lable mupirocin 2 % topical ointment APPLY OINTMENT TOPICALLY TO AFFECTED AREA THREE TIMES DAILY active Not Available Not Available No t Available mirtazapine 15 mg tablet TAKE 1/2 TABLET BY MOUTH DAILY AT BEDTIME FOR 14 DAYS, THEN TAKE 1 TABLET DAILY AT BEDTIME. active Not Available Not Available No t Available metoprolol succinate ER 25 mg tablet,exte nded release 24 hr TAKE 1 TABLET BY MOUTH ONCE DAILY 02/17 completed Not Available Not Available Not Available azelastine 137 mcg (0.1 %) nasal spray USE 2 SPRAY(S) IN EACH NOSTRIL TWICE DAILY DIRECTED active Not Available Not Available No t Available levofloxaci n 500 mg tablet Take 1 tablet every 24 hours by oral route for 7 days. 02/17 completed Not Available Not Available Not Available levofloxaci n 750 mg tablet TAKE 1 TABLET BY MOUTH ONCE DAILY FOR 5 DAYS 12/13 completed Not Available Not Available Not Available methylpredn isolone 4 mg tablets in a dose pack Take 1 dose pk by oral route as directed. 12/13 completed Not Available Not Available Not Available albuterol sulfate HFA 90 mcg/actuati on aerosol inhaler INHALE 2 PUFFS BY MOUTH 4 TIMES DAILY active Not Available Not Available No t Available ketoconazol e 2 % topical cream APPLY CREAM TOPICALLY TO AFFECTED AREA OF RIGHT LEG TWICE DAILY 06/07 completed Not Available Not Available Not Available fluticasone propionate 50 mcg/actuati on nasal spray,suspe nsion USE 1 SPRAY(S) IN EACH NOSTRIL TWICE DAILY NEEDED FOR RUNNY NOSE active Not Available Not Available No t Available loratadine 10 mg tablet TAKE 1 TABLET BY MOUTH ONCE DAILY IN THE MORNING active Not Available Not Available No t Available amoxicillin 875 mg-potassiu m clavulanate 125 mg tablet TAKE 1 TABLET BY MOUTH TWICE DAILY FOR 10 DAYS 02/18 completed Not Available Not Available Not Available azithromyci n 500 mg tablet TAKE 1 TABLET BY MOUTH ONCE DAILY FOR 5 DAYS 12/13 completed Not Available Not Available Not Available calcium 2021 active Not Available Not Available Not Avai lable amlodipine 07/26 completed Not Available Not Available Not Available arformotero l 15 mcg/2 mL solution for nebulizatio n INHALE 1 AMPULE BY NEBULIZER TWICE DAILY active Not Available Not Available No t Available ipratropium 0.5 mg-albutero l 2.5 mg/2.5 mL solution for nebulizatio n Inhale by inhalatio n route. 2021 active Not Available Not Available Not Avai lable Dupixent 300 mg/2 mL subcutaneou s pen injector inject 300MG (1 injection ) subcutane ously every other week. 2023 active Not Available Not Available Not Avai lable BinaxNOW COVID-19 Ag Self Test kit Use as Directed on the Package active Not Available Not Available No t Available Vitals Date Recorded Body mass index (BMI) Body height Body temperature Body weight Provider Name and Address Organization Details Last Updated DateTime 06/08/2022 2.6 kg/m2 165.1 cm 97.7 [degF] 7212.12 g Not Available [facility] 01/27/2023 00:29:10 Date Recorded Body mass index (BMI) Body height Body temperature Body weight Provider Name and Address Organization Details Last Updated DateTime 07/28/2022 22.8 kg/m2 165.1 cm 96.9 [degF] 31528.87 g Not Available [facility] 01/27/2023 00:29:10 Date Recorded Body mass index (BMI) Body height Body temperature Body weight Provider Name and Address Organization Details Last Updated DateTime 12/14/2022 21.8 kg/m2 165.1 cm 97.9 [degF] 21746.6 g Not Available [facility] 01/27/2023 00:29:10 Date Recorded Body mass index (BMI) Body height Body temperature Body weight Provider Name and Address Organization Details Last Updated DateTime 01/13/2023 20.8 kg/m2 165.1 cm 97.6 [degF] 40164.05 g Not Available [facility] 01/27/2023 00:29:10 Date Recorded Body height Body mass index (BMI) Body weight Body temperature Provider Name and Address Organization Details Last Updated DateTime 02/17/2023 165.1 cm 22.1 kg/m2 06763.79 g 97.7 [degF] Una Kincaid CMA [place] [facility] [place] [facility] [facility] 02/17/2023 11:11:02 Social History Question Answer Notes LastModified by Organizat ion Details LastModified Time Tobacco Smoking Status Never Smoker Not Available [facility] 01/27/2023 00:27:32 What Is Your Level Of Alcohol Consumption? None [id number] Information not available 01/27/2023 In The 14 Days Before Symptom Onset, Have You Had Close Contact With A Laboratory-confirm ed COVID-19 While That Case Was Ill? No [id number] Information not available 01/27/2023 In The 14 Days Before Symptom Onset, Have You Had Close Contact With A Person Who Is Under Investigation For COVID-19 While That Person Was Ill? No [id number] Information not available 01/27/2023 Have You Recently Traveled Abroad? No [id number] Information not available 01/27/2023 Sex: Unknown Functional Status None recorded. Mental Status None recorded. Family History Relationship Description Onset Age of this Age Resolved Age Notes LastModified by Organization Details LastModified Time Father No current problems or disability [id number] Not available 01/27/2023 00:28:02 Mother No current problems or disability [id number] Not available 01/27/2023 00:28:02 Medical History Condition Response MRSA N SLEEP APNEA N ALLERGIES/HAYFEVER N LUNG DISEASE/DISORDER N HISTORY OF DRUG ABUSE N INSOMNIA N COPD N RADIATION / CHEMOTHERAPY N HIGH CHOLESTEROL / HYPERLIPIDEMIA N HYPERTHYROIDISM N BLOOD DISEASES N EAR OR HEARING PROBLEMS N HYPOTHYROIDISM N SHINGLES N DEPRESSION (INCLUDING POST ) N HAVE YOU BEEN HOSPITALIZED OR SEEN IN [facility] ER IN THE PAST YEAR ? N STROKE/TIA N ULCERS N OBESITY N ANEURYSM N HISTORY WITH COMPLICATIONS WITH ANESTHES IA ? N USE OF BLOOD THINNERS N NO SIGNIFICANT PAST MEDICAL HISTORY N DIABETES, TYPE N PARATHYROID DISEASE N ENT N SEASONAL ALLERGIES Y HEARTBURN / REFLUX Y HEPATITIS / LIVER DISEASE N SLEEP DISORDER N SEIZURES/EPILEPSY N HEADACHES/MIGRAINES N CHF N PACEMAKER N DIZZINESS N HEART DISEASE/HEART PROBLEMS N AIDS/HIV N FRACTURES N HYPERTENSION N CANCER: SPECIFY N TOURETTE'S N BLOOD TRANSFUSION N ANEMIA/BLOOD DISORDER N ANESTHESIA COMPLICATIONS N CHRONIC EAR INFECTIONS N TUBERCULOSIS N Gynecological HistoryNo gynecological history recorded. Obstetrics History GPAL:G 0 P 0 0 0 0 Past Encounters Encounter ID Performer Location Encounter Start Date Encounter Closed Date Diagnosis/Indication Diagnosis SNOMED-CT Code Diagnosis ICD10 Code [id number] [facility] [address] [place] [address] 02/18/2022 00:00:00 02/18/2022 12:42:24 [id number] [facility] [address] [place] [address] 04/08/2022 00:00:00 04/08/2022 14:14:39 [id number] [facility] [place] [address] [place] [address] 06/08/2022 00:00:00 06/08/2022 10:26:01 [id number] [facility] [place] [address] [place] [address] 07/28/2022 00:00:00 07/28/2022 14:29:08 [id number] [facility] [place] [address] [place] [address] 12/14/2022 00:00:00 12/14/2022 11:53:49 [id number] [facility] [place] [address] [place] [address] 01/13/2023 00:00:00 01/13/2023 11:12:34 [id number] MD GEOFFREY [facility] [address] [place] [address] 02/17/2023 10:35:51 02/17/2023 11:42:47 Chronic sinusitis 99717334 J32.9 Health Concerns Section Related Observation LastModified by Organization Detai ls LastModified Time None Recorded Concern Status LastModified by Organization Details LastModified Time None Recorded Advance Directives Directive None Recorded Payers Encounter Date Sequence Insurance Name Policy Number Policy Woodard Covered Member ID Woodard Member ID Guarantor Name 02/17/2023 1 [place] Gabbie Chris [id number] Gabbie Chris 02/17/2023 2 [facility] (MEDICARE SUPPLEMENT) Gabbie Chris [id number] Gabbie Chris Notes Date Note Type Note Provider Name and Address Organization Details Recorded Time 02/17/2023 text/html this patient reports thatDupixent is working well and we are working on her pre authorization for permanent prescription. Ned Philip MD [address] [place] [address], [facility] [address], [place], [address], [place] [facility] [employer] 02/17/2023 11:27:23 OBGyn Episode No OBEpisode recorded.
--- OUTSIDE RECORDS SUMMARY | 2024-11-18 11:52 | XMS_ITS | Encounter Summary ---
Author Organization [facility] Address [address] [place] [address] Phone Care Team Providers Care Construction Supervisor/Carpenter Name Role Phone Torito Gonzalez MD Primary Care Provider [phone] Sol Lincoln MD Unavailable [phone] Encounter Details Date Type Department Care Team (Late st Contact Info) Description 08/13/2024 Telephone [facility]) [facility] [address] [facility] [address] [place] [address] [place] [address] [facility] [address] [place] [address] Social History Tobacco Use Types Packs/Day Years [...] 01/18/2023 How often do you attend chur or evangelical services? More than 4 times per year 01/18/2023 Do you belong to any clubs o r organizations such as confucianist groups, unions, fraternal or athletic groups, or [...] place to sleep or slept in a correction (including now)? No 01/18/2023 Personal Safety Answer Date Recorded Have you ever been in or are you currently in a harmful physical or emotional relationship or is someone making you feel afraid or unsafe? 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 Pt would like to try sleeping in her bed/laying down instead of sitting up. Dr Rojas states pt may try sleeping in bed, just to be aware of possiblediscomfort and/or facial pressure. Pt states she is not using her CPAP for two weeks-per post op instruction sheet. Pt verbally states understanding of al discussed and will call our offc with any other questions, concerns, or status change. documented in this encounter Plan of Treatment Not on file documented as of this encounter Visit Diagnoses Not on filedocumented in this encounter Care Teams Construction Supervisor/Carpenter Relationship Specialty Start Date End Date Torito Gonzalez MD [address] [place] [address] PCP - General 02/25/17 [place] [address] [address] Consulting Physician Pulmonary Disease 01/30/24 documented as of this encounter
--- OUTSIDE RECORDS SUMMARY | 2024-11-18 11:53 | XMS_ITS | Encounter Summary ---
Author Organization [facility] Address [address] [place] [address] Care Team Providers Care Salvage Inspector [employer] Name Role Phone Torito Gonzalez MD Primary Care Provider [phone] Sol Lincoln MD Unavailable [phone] Encounter Details Date Type Department Care Team (Late st Contact Info) Description 07/24/[address] [place] [address] Shelbie Saleh RN Social History Tobacco Use Types Packs/Day [...] often do you attend chur ch or taoism services? More than 4 times per year 01/18/2023 Do you belong to any clubs o r organizations such as hinduism groups, unions, fraternal or athletic groups, or [...] place to sleep or slept in a senior care (including now)? 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 Payan's office. Patient was called to schedule injection. No answer, unable to leave message. documented in this encounter Plan of Treatment Not on file documented as of this encounter Visit Diagnoses Not on filedocumented in this encounter Care Teams Salvage Inspector [employer] Relationship Specialty Start Date End Date Torito Gonzalez MD [address] [place] [address] PCP - General 02/25/17 [place] [address] [address] Consulting Physician Pulmonary Disease 01/30/24 documented as of this encounter
--- OUTSIDE RECORDS SUMMARY | 2024-11-18 11:53 | XMS_ITS | Encounter Summary ---
Author Organization [facility] Healthcare Address [address] [place] [address] Care Team Providers Care Issuer Name Role Phone Torito Gonzalez MD Primary Care Provider [phone] Sol Lincoln MD Unavailable [phone] Encounter Details Date Type Department Care Team (Late st Contact Info) Description 06/29/[address] [facility] [address] [facility] [address] [place] [address] Alhaji Payan MD [address] [place] [address] [address] [place] [address] Social History Tobacco Use Types Packs/Day Years [...] any clubs o r organizations such as moravian groups, unions, fraternal or athletic groups, or [...] slept in a nursing home (including now)? 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 Patient confirmed availability and was scheduled. Patient denied need for directions and confirmed she was taking calcium supplements and had no dental issues. No further questions at this time. documented in this encounter Plan of Treatment Not on file documented as of this encounter Visit Diagnoses Not on filedocumented in this encounter Care Teams Issuer Relationship Specialty Start Date End Date Torito Gonzalez MD [address] [place] [address] PCP - General 02/25/17 [place] [address] [address] Consulting Physician Pulmonary Disease 01/30/24 documented as of this encounter
--- OUTSIDE RECORDS SUMMARY | 2024-11-18 11:53 | XMS_ITS | Encounter Summary ---
Author Organization [facility] Healthcare Address [address] [place] [address] Care Team Providers Care Kitchen Hand Name Role Phone Torito Gonzalez MD Primary Care Provider [phone] Sol Lnicoln MD Unavailable [phone] Reason for Visit * Reason Onset Date Comments Due for Prolia 07/19/2024 Encounter Details Date Type Department Care Team ([facility] Contact Info) Description 07/19/2024 Telephone [employer] [address] [place] [address] [address] [place] [address] Leticia Montes De Oca RN Due for Prolia Social History Tobacco Use Types Packs/Day Years [...] often do you attend chur ch or restorationism services? More than 4 times per year [...] on file Legal Sex Female 1:11 AM YARN SIZER Gender Identity Not on file Sexual Orientation Not on file documented as of this encounter Ordered Prescriptions Prescription Sig Dispense Quantity Refills Last Filled Start Date End Date denosumab (PROLIA) 60 mg/mL syringe Inject 1 mL (60 mg total) under the skin once for 1 dose 1 mL 07/19/2024 documented in this encounter Miscellaneous Notes * Telephone Encounter - Leticia Montes De Oca RN - 08/08/2024 10:32 AM CDT Prolia injection given 07-10-24. Pt on reminder list for * Telephone Encounter - Leticia Montes De Oca RN - 07/23/2024 11:47 AM CDT Refaxed to Infusion Center * Telephone Encounter - Leticia Montes De Oca RN - 07/19/2024 9:37 AM CDT Pt was due for her Prolia injection 06-27-24. Summary of Benefits and Prolia Rx faxed to the Infusion Center at [phone]. Will await injection date. documented in this encounter Plan of Treatment Not on file documented as of this encounter Visit Diagnoses Not on filedocumented in this encounter Discontinued Medications Medication Sig Discontinue Reason Start Date End Da te denosumab (PROLIA) 60 mg/mL syringe Inject 1 mL (60 mg total) under the skin once for 1 dose Reorder 06/14/2024 07/19/2024 documented as of this encounter Care Teams Kitchen Hand Relationship Specialty Start Date End Date Torito Gonzalez MD [address] [place] [address] PCP - General 3/31/17 [place] [address] [place] [address] Consulting Physician Pulmonary Disease 01/30/24 documented as of this encounter
--- OUTSIDE RECORDS SUMMARY | 2024-11-18 11:53 | XMS_ITS | Encounter Summary ---
Author Organization [facility] Address [address] [place] [address] Phone Care Team Providers Care Primer Assembler Name Role Phone Torito Gonzalez MD Primary Care Provider [phone] Sol Lincoln MD Unavailable Reason for Referral * MRI/CAT/PET Scan (Routine) - Closed Specialty Diagnoses / Procedures Referred By Turner ramirez Referred To Contact Radiology Diagnoses Chronic sinusitis, unspecified location Procedures CT Sinus Stealth [place] [id number] [address] Phone: tel: fax: [address] [address] Referral ID Status Reason Start Date Expiration Date Visits Re quested Visits Authorized [id number] Closed 04/16/2024 05/16/2025 1 1 Reason for Visit * Reason Comments Sinusitis History 2 sinus surg eries Encounter Details Date Type Department Care Team (Late st Contact Info) Description 04/16/2024 8:40 AM CDT Office Visit [facility]) - [facility] [address] [place] [address] [place] [address] [place] [address] Chronic sinusitis, unspecified location (Primary Dx); Polyp of nasal cavity; Deviated nasal septum Social History Tobacco Use Types Packs/Day Years [...] How often do you attend chur or mormonism services? More than 4 times per year 01/18/2023 Do you belong to any clubs o r organizations such as sikh groups, unions, fraternal or athletic groups, or [...] place to sleep or slept in a mcc (including now)? 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 Gender Identity Not on file Sexual Orientation Not on file documented as of this encounter Last Filed Vital Signs Vital Sign Reading Time Taken Comments Blood Pressure - - Pulse 72 04/16/2024 8:20 AM CDT Temperature 36.6 ??C (97.8 ??F) 04/16/2024 8:20 AM CD T Respiratory Rate - - Oxygen Saturation 99% 04/16/2024 8:20 AM CDT Inhaled Oxygen Concentration - - Weight 64.4 kg (142 lb) 04/16/2024 8:20 AM CDT Height - - Body Mass Index 23.63 08/23/2023 9:16 AM CDT documented in this encounter Progress Notes * Lydia Rojas MD - 04/16/2024 8:40 AM CDT I had the pleasure of seeing Gabbie in self-referral for sinus concerns. Please see my documentation below for details. Otolaryngology - Head & Neck Surgery Clinic New Patient Subjective Gabbie Chris is a 68 y.o. female who presents with sinus issues. [...] very rarely doing with a battery powered one.Not using nasal steroids either. Uses saline mist every once in a while. Sense of smell is variable depending on the smell. Had [...] not being told how to use Dupixent. Past Medical History: Diagnosis Date Dysphagia GERD (gastroesophageal reflux disease) HX OTHER MEDICAL 1976 ; Outcome: 7 lb(s) 2 oz Male HX OTHER MEDICAL 1970 ; Outcome: 7 lb(s) 4 oz Female Hypertension Influenza A Pneumonia due to COVID-19 virus 07/2022 Restless leg syndrome Patient Active Problem List Diagnosis Hypercholesterolemia Keratosis, senilis Benign neoplasm of soft tissues Dysphagia CAD (coronary artery disease) Prinzmetal's angina ([facility]) ([facility]) Hx of colonic polyps Age-related osteoporosis without current pathological fracture NSTEMI (non-ST elevated myocardial infarction) ([facility]) ([facility]) Hypertension Gastroesophageal reflux disease without esophagitis COPD (chronic obstructive pulmonary disease) ([facility]) Depression Surgical wound infection Obstructive sleep apnea (adult) (pediatric) Past Surgical History: Procedure Laterality Date APPENDECTOMY 1995 Appendectomy CARDIAC CATHETERIZATION 2010 HEART CATH CARDIAC CATHETERIZATION Left 01/17/2023 No stents placed-NSTEMI CATARACT EXTRACTION W/ INTRAOCULAR LENS IMPLANT 2018 COLONOSCOPY 12/06/2016 OTHER SURGICAL HISTORY 1976 : OTHER SURGICAL HISTORY 1970 : POLYPECTOMY SINUS SURGERY 01/05/2023 TOTAL ABDOMINAL HYSTERECTOMY W/ BILATERAL SALPINGOOPHORECTOMY 1995 [facility]/BS[facility] Social History Tobacco Use Smoking status: Former Smokeless tobacco: Never Tobacco comments: Smoking History Packs/day: 0.25 Packs Substance and Sexual Activity Drug use: No Sexual activity: Not Currently Alcohol Use: Patient Declined (11/16/2023) [facility] AUDIT-C Frequency of Alcohol Consumption: Patient declined Average Number of Drinks: Patient declined Frequency of Binge Drinking: Patient declined Family History Problem Relation Age of Onset Heart disease Mother Coronary artery disease Mother Coronary artery disease; Hypertension Mother Hypertension; Liver cancer Father Melanoma Father Congenital heart disease Brother Congenital heart disease; Throat cancer Brother HPV Virus Hypertension Brother Diabetes Brother Diabetes mellitus; Heart attack Son 45 Maker No Known Problems Daughter Allergies Allergen Reactions Amoxicillin Stomach upset Current Outpatient Medications Medication Instructions albuterol HFA (PROVENTIL HFA,VENTOLIN HFA,PROAIR HFA) 90 mcg/actuation inhaler albuterol sulfate HFA 90 mcg/actuation aerosol inhaler INHALE 1 TO 2 PUFFS BY MOUTH EVERY 6 HOURS NEEDED FOR WHEEZING amLODIPine (NORVASC) 5 mg tablet Take 1 tablet by mouth once daily aspirin 81 mg calcium carbonate (CALCIUM 600 ORAL) oral denosumab (PROLIA) 60 mg, subcutaneous, Once dupilumab (Dupixent Pen) 200 mg/1.14 mL pen injector subcutaneous famotidine (PEPCID) 20 mg, oral, Daily fluticasone propionate (FLONASE) 50 mcg/actuation nasal spray 1 spray, each nostril, 2 times daily PRN ipratropium-albuteroL (DUO-NEB) 0.5-2.5 mg/3 mL nebulizer solution nebulization, Every 6 hours Review of Systems A complete past medical history, family history, social history, and 10 system review of systems was completed by the patient on the Patient History Form and reviewed with the patient during the visit on 04/16/2024. All review of systems not otherwise marked [...] drainage or discharge. No bleeding. Septum deviated right Oral Cavity/Oropharynx: No visible mucosal lesions. Floor [...] face symmetric, facial sensation intact bilaterally Procedure: Name of Procedure: Sinonasal endoscopy Indication: Inadequate view on anterior rhinoscopy Description: The patient's nose was topically anesthetized and decongested. A rigid 30 degree endoscope was placed to examine bilateral nasal cavities. Findings: Septum was deviated right with large spur to right posteriorly. Mucus in bilateral nasal cavities was thin and clear with exception of thick sticky frothy mucus inposterior left nasal cavity. On the right, the nasal mucosa was edematous throughout. The inferior turbinate was hypertrophied. The middle turbinate was intact. The endoscope was advanced to the middle meatus. There was thick scarring with appearance of possible partial absence of middle turbinate. There was polypoid mucosa onpresumed uncinate. There was no view into maxillary sinus, no evidence of prior antrostomy, severe scarring of ethmoid cavity, no view to sphenoethmoid recess. On the left, the nasal mucosa was edematous throughout. The inferior turbinate was hypertrophied. The middle turbinate was intact. The endoscope was advanced to the middle meatus. There was thick scarring with appearance of possible partial absence of middle turbinate. There was polypoid mucosa on presumed uncinate. There was no view into maxillary sinus, no evidence of prior antrostomy, severe scarring of ethmoid cavity, no view to sphenoethmoid recess. Radiology review I personally reviewed the report from CT sinus from OSH performed 11/2022. My findings are FINDINGS:MAXILLARY SINUSES: Interval progression with near complete opacification [...] included brain parenchyma. OTHER: No other significant finding . Assessment /Plan Assessment and Plan: 68 y.o. 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 Also significantly narrowed right nasal cavity due to deviated septum and spur. - rinses BID - flonase BID after rinses - sinus CT for severe scarring and abnormality of anatomy with sinus symptoms. - see back after The note in its entirety has been confirmed by me, the attending physician. Parts of the note were initially recorded by my staff. Lydia Rojas M.D. [employer] Officer Department of Otolaryngology-Head and Neck Surgery [facility] phone: 04/16/2024 documented in this encounter Plan of Treatment Not on file documented as of this encounter Results * CT Sinus Stealth WO Contrast (05/14/2024 7:38 AM CDT) Anatomical Region Laterality Modality Head N/A Computed Tomogra phy 05/14/2024 9:49 AM CDT Impressions 05/14/2024 9:49 AM CDT Mild right and trace left frontal sinusitis with mild involvement of the bilateral nasofrontal duct. Bilateral partial ethmoidectomy with moderate ethmoid mucosal thickening worse left. Moderate to marked maxillary sinusitis worse left extending to the infundibulum. Mild sphenoid mucosal thickening. Bilateral middle turbinate reduction surgery and left uncinectomy. Rightward nasal septal deviation with septal spurring. Keros type III left olfactory fossa. Electronically signed by: Nadia Arroyo M.D. Narrative 05/14/2024 9:49 AM CDT Examination: ??CT SINUS STEALTH WO CONTRAST Date: 05/14/2024 8:15 AM Clinical History: ?? sinusitis, history of some type of sinus surgery Technique: Noncontrast CT sinuses obtained with Stealth protocol and multiplanar reformatted views was obtained. Comparison:None. Findings: Review of the topogram demonstrates no abnormalities. Mild right and trace left frontal sinus mucosal thickening is noted. There is mild mucosal thickening in the bilateral nasofrontal duct. Partial ethmoidectomy and moderate bilateral ethmoid mucosal thickening is seen worse left. Marked left and moderate to marked right maxillary mucosal thickening is seen with retention cysts on the left.. Mild sphenoid mucosal thickening is present.. Sellar and post sellar pneumatization pattern is present. Bilateral middle turbinate reduction surgery and left uncinectomy is noted with otherwise patent ostiomeatal units. ??However maxillary mucosal thickening extends to the ostium on both sides. Rightward nasal septal deviation and septal spurring is seen.. Mild mucosal thickening at the sphenoethmoidal recesses is seen.The sphenoid septum is seen extending to the medial wall of the right optic canal. Keros type II olfactory recess is seen on the right and type III on the left. No areas of bony erosion are identified. Bilateral intraocular lens replacement is seen.. Limited view of the frontal lobes is normal. No mastoid effusions noted. Procedure Note Nadia Arroyo MD - 05/14/2024 Examination: CT SINUS STEALTH WO CONTRAST Date: 05/14/2024 8:15 AM Clinical History: sinusitis, history of some type of sinus surgery Technique: Noncontrast CT sinuses obtained with Stealth protocol and multiplanar reformatted views was obtained. Comparison:None. Findings: Review of the topogram demonstrates no abnormalities. Mild right and trace left frontal sinus mucosal thickening is noted. There is mild mucosal thickening in the bilateral nasofrontal duct. Partial ethmoidectomy and moderate bilateral ethmoid mucosal thickening is seen worse left. Marked left and moderate to marked right maxillary mucosal thickening is seen with retention cysts on the left.. Mild sphenoid mucosal thickening is present.. Sellar and post sellar pneumatization pattern is present. Bilateral middle turbinate reduction surgery and left uncinectomy is noted with otherwise patent ostiomeatal units. However maxillary mucosal thickening extends to the ostium on both sides. Rightward nasal septal deviation and septal spurring is seen.. Mild mucosal thickening at the sphenoethmoidal recesses is seen.The sphenoid septum is seen extending to the medial wall of the right optic canal. Keros type II olfactory recess is seen on the right and type III on the left. No areas of bony erosion are identified. Bilateral intraocular lens replacement is seen.. Limited view of the frontal lobes is normal. No mastoid effusions noted. IMPRESSION: Mild right and trace left frontal sinusitis with mild involvement of the bilateral nasofrontal duct. Bilateral partial ethmoidectomy with moderate ethmoid mucosal thickening worse left. Moderate to marked maxillary sinusitis worse left extending to the infundibulum. Mild sphenoid mucosal thickening. Bilateral middle turbinate reduction surgery and left uncinectomy. Rightward nasal septal deviation with septal spurring. Keros type III left olfactory fossa. Electronically signed by: Nadia Arroyo M.D. Lydia Rojas MD IMG CT PROCEDURES Estefania l Result documented in this encounter Visit Diagnoses Diagnosis Chronic sinusitis, unspecified location- Primary Polyp of nasal cavity Deviated nasal septum Chronic sinusitis, unspecified location documented in this encounter Care Teams Primer Assembler Relationship Specialty Start Date End Date Torito Gonzalez MD [address] [place] [address] PCP - General 02/25/17 [place] [address] [place] [address] Consulting Physician Pulmonary Disease 01/30/24 documented as of this encounter
--- OUTSIDE RECORDS SUMMARY | 2024-11-18 11:53 | XMS_ITS | Encounter Summary ---
Author Organization [facility] Healthcare Address [address] [place] [address] Care Team Providers Care Supervisor Tellers Name Role Phone Torito Gonzalez MD Primary Care Provider [phone] Sol Lincoln MD Unavailable [phone] Reason for Visit * Auth/Cert (Routine) Specialty Diagnoses / Procedures Referred By Turner ramirez Referred To Contact Diagnoses Chronic sinusitis, unspecified location Hypertrophy of both inferior nasal turbinates Chronic sinusitis, unspecified location [J32.9] Hypertrophy of both inferior nasal turbinates [J34.3] Procedures MD SUBMUCOUS RESCJ INFERIOR TURBINATE PRTL/COMPL MD NSL/SINUS NDSC MAX ANTROST W/RMVL TISS MAX SINUS MD NASAL/SINUS NDSC W/TOTAL ETHOIDECTOMY MD NSL/SINUS NDSC SPHENDT RMVL TISS SPHENOID SINUS MD NASAL/SINUS NDSC W/RMVL TISS FROM FRONTAL SINUS ENDOSCOPIC SINUS SURGERY WITH NAVIGATION (210min) TURBINECTOMY Referral ID Status Reason Start Date Expiration Date Visits Re quested Visits Authorized [id number] 1 1 Encounter Details Date Type Department Care Team (Late st Contact Info) Description 08/07/2024 12:57 PM CDT Anesthesia Event [facility] Operating Room [address] [place] [address] Carmen Haywood MD [address] [place] [address] Javier Ratliff MD [address] [facility] [place] [address] Anesthesia Record Procedure Summary Procedure Name Responsible Anesthesiologist Anesthesia Start Time Anesthesia Stop Time ENDOSCOPIC SINUS SURGERY WITH NAVIGATION (Bilateral: Nose) Carmen Haywood MD 08/07/24 1257 08/07/24 1711 Events Date Time Event Comment 08/07/2024 1139 1257 In Room 1257 An Start 1257 An Start Data 1303 An Induction The patient was reevaluated immediately before moderate or deep sedation use and before anesthesia induction. 1308 An Intubation 1312 Anesthesia Ready 1313 Proc Start 1652 Proc Fin 1659 An Extubation 1703 an stop data 1707 Out of Room 1711 Handoff to RN I completed my handoff to the receiving nurse during which we: 1. Patient identified 2. Responsible provider identified 3. Pertinent medical history reviewed 4. Procedure type and surgical course discussed 5. Intraoperative anesthetic management and any significant issues discussed 6. Expectations and concerns for postop period discussed 7. Questions solicited from receiving nurse 8. Patient disposition at the time of handoff: PACU 1711 An Stop Meds Name Total midazolam 2 mg fentaNYL 100 mcg lidocaine (CARDIAC) syringe 2 % 60 mg propofol 120 mg rocuronium 60 mg ondansetron 4 mg phenylephrine (SAM-SYNEPHRIN E) 25,000 mcg in sodium chloride 0.9% 250 mL (100 mcg/mL) infusion 4.93 mg phenylephrine 200 mcg dexAMETHasone 4 mg/mL 4 mg sugammadex 200 mg Lactated Ringer's (LR) infusion 1,000 mL * Agents Name O2 N2O Air Sevoflurane Inspired Sevoflurane * Blood No blood administrations on file. Lines, Drains, and Airways Type Details Placement Removal Wound 08/07/24; 1344; Non-incision; Nare; Bilateral 08/07/24 1344 by Yoli Glasgow, ERICK RETIRED Wound 01/17/23; 1110; No; Puncture; Anterior, Right; Groin; LHC site; 08/07/24; 182; Removal date unknown/not present on admission 01/17/23 1110 by Mynor Castro RN 08/07/241820 by Una Weir RN Peripheral IV Placement Date: 07/29 ; Placement Time: 1000; Catheter Size: 20 G; Orientation: Left, Posterior; Location: Hand; Technique: Anatomical landmarks; Removal Date: 08/07/24; Removal Time: 1854; Removal Reason: Per protocol 08/07/24 1000 by Lydia Donis RN 08/07/241854 by Una Weir RN ETT Placement Date: 07/29 ; Placement Time: 1328 (created via procedure documentation); Mask Ventilation: 1; Technique: Direct laryngoscopy; Type: ETT - single; Single Lumen Tube Size: 7 mm; Cuffed: Yes; Laryngoscope: Lobito; Blade Size: 3; Location: Oral; Grade View: Grade I; Insertion Attempts: 1; Placement Verification: Auscultation, Capnometry; Airway Comment: Direct laryngoscopy and intubation performed by HEIKE De La Paz under the direct supervision of GAGAN. Teeth and lips in preop condition after intubation. ; Removal Date: 08/07/24; Removal Time: 165808/07/24 1329 by Tamra Norman CRNA 08/07/241658 by Tamra Norman CRNA documented in this encounter Social History Tobacco Use Types Packs/Day Years [...] How often do you attend chur or nondenominational services? More than 4 times per year 01/18/2023 Do you belong to any clubs o r organizations such as episcopal groups, unions, fraternal or athletic groups, or [...] to sleep or slept in a senior living (including now)? No 01/18/2023 Personal Safety Answer Date Recorded Have you ever been in or are you currently in a harmful physical or emotional relationship or is someone making you feel afraid or unsafe? 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 Gender Identity Not on file Sexual Orientation Not on file documented as of this encounter OR Notes * Anesthesia Postprocedure Evaluation - Carmen Haywood MD - 08/08/2024 7:37 AM CDT Patient: Gabbie Chris Procedure Summary Date: 08/07/24 Room / Location: OPERATING ROOM 1 / OPERATING ROOM Anesthesia Start: 1257 Anesthesia Stop: 1711 Procedures: ENDOSCOPIC SINUS SURGERY WITH NAVIGATION (Bilateral: Nose) BILATERAL INFERIOR TURBINATE REDUCTION (Bilateral: Nose) ENDOSCOPIC MAXILLARY ANTROSTOMY NAVIGATION - BILATERAL (Bilateral: Face) ENDOSCOPIC FRONTAL SINUSOTOMY NAVIGATION - BILATERAL (Bilateral: Face) ENDOSCOPIC SPHENOIDOTOMY NAVIGATION - BILATERAL (Bilateral: Face) ENDOSCOPIC ETHMOIDECTOMY NAVIGATION - BILATERAL (Bilateral: Face) Diagnosis: Chronic sinusitis, unspecified location Hypertrophy of both inferior nasal turbinates (Chronic sinusitis, unspecified location [J32.9]) (Hypertrophy of both inferior nasal turbinates [J34.3]) Providers: Lydia Rojas MD Responsible Provider: Carmen Haywood MD Anesthesia Type: general ASA Status: 3 Anesthesia Type: general Last vitals BP 122/74 Pulse 65 Temp 36.7 ??C (98 ??F) (Temporal) Resp 18 SpO2 95% Anesthesia Post Evaluation Patient location during evaluation: PACU Patient participation: complete - patient participated Level of consciousness: fully awake Pain score: 0 Pain management: adequate Airway patency: adequate Evidence of recall: no Cardiovascular status: acceptable Respiratory status: acceptable Hydration status: acceptable Pt is: normothermic Nausea/Vomiting status: none No notable events documented. * Anesthesia Procedure Notes - Tamra Norman CRNA - 08/07/2024 1:28 PM CDTAssociated Order(s): Airway Airway Patient location: OR Urgency: elective Indications for airway management: anesthesia Difficult airway: no Staff: Placed by: TEST HOLE DRILLER: Tamra Norman CRNA Emergent airway documentation: Risks and benefits discussed: yes Consent obtained: yes Consent given by: patient Airway prep: Preoxygenated: yes Patient position: sniffing Mask difficulty assessment: 1 - vent by mask Spontaneous ventilation during airway: absent Sedation level during airway: GA Final airway details: Final airway type: endotracheal airway Tube type: ETT ETT size: 7.0 mm Cuffed: yes Technique used for successful ETT placement: direct laryngoscopy Devices/Methods used in placement: stylet Insertion site: oral Blade type: Lobito Blade size: 3 Cormack-Lehane (direct): grade I - full view of glottis Cuff inflated with: air ETT to teeth: 21 cm Placement verified by: auscultation and CO2 detection Airway secured with: silk tape Number of attempts: 1 Planned trial extubation: yes Additional comments: Direct laryngoscopy and intubation performed by HEIKE De La Paz under the direct supervision of GAGAN. Teeth and lips in preop condition after intubation. * Anesthesia Preprocedure Evaluation - Carmen Haywood MD - 08/03/2024 9:18 AM CDT Images from the original note were not included. Anesthesia Evaluation Gabbie Chris is a 69 y.o. female ENDOSCOPIC SINUS SURGERY WITH NAVIGATION (210min) (Bilateral: Face) TURBINECTOMY (Bilateral: Nose) Pre-Op Diagnosis Codes: * Chronic sinusitis, unspecified location [J32.9] * Hypertrophy of both inferior nasal turbinates [J34.3] HISTORY Past Medical History Information obtained from: patient and chart. Cardiovascular + Hypertension + Hyperlipidemia + CAD (Insignificant CAD) + Systolic or diastolic dysfunction w/o CHF Diastolic dysfunction w/o CHF. Diastolic function: stage I - impaired relaxation LVEF: 50-60%. Pertinent negatives: VT Respiratory + COPD + Sleep apnea ([place]) Pertinent negatives: non-smoker Gastrointestinal + GERD Patient Active Problem List Diagnosis Date Noted Hypertrophy of both inferior nasal turbinates 05/14/2024 Chronic sinusitis 04/16/2024 Polyp of nasal cavity 04/16/2024 Obstructive sleep apnea (adult) (pediatric) 12/30/2023 Surgical wound infection 01/25/2023 Hypertension Gastroesophageal reflux disease without esophagitis COPD (chronic obstructive pulmonary disease) ([facility]) Depression NSTEMI (non-ST elevated myocardial infarction) (CMS/HCC) ([facility]) 01/15/2023 Age-related osteoporosis without current pathological fracture 12/22/2022 Hx of colonic polyps 04/15/2022 Prinzmetal's angina ([facility]) ([facility]) 04/17/2021 CAD (coronary artery disease) 04/18/2020 Dysphagia 12/18/2018 Keratosis, senilis 01/10/2017 Benign neoplasm of soft tissues 01/10/2017 Hypercholesterolemia 04/13/2014 Past Medical History: Diagnosis Date Arthritis Asthma Cataract 2017 Chronic sinusitis, unspecified location COPD (chronic obstructive pulmonary disease) ([facility]) Dysphagia GERD (gastroesophageal reflux disease) HX OTHER MEDICAL 1976 ; Outcome: 7 lb(s) 2 oz Male HX OTHER MEDICAL 1970 ; Outcome: 7 lb(s) 4 oz Female Hypertension Hypertrophy of both inferior nasal turbinates Influenza A Lung disease Restless leg syndrome Sleep apnea Past Surgical History: Procedure Laterality Date APPENDECTOMY 1995 Appendectomy CARDIAC CATHETERIZATION 2009 HEART CATH CARDIAC CATHETERIZATION Left 01/17/2023 No stents placed-NSTEMI CATARACT EXTRACTION W/ INTRAOCULAR LENS IMPLANT 2017 COLONOSCOPY 12/06/2016 OTHER SURGICAL HISTORY 1976 : OTHER SURGICAL HISTORY 1970 : POLYPECTOMY SINUS SURGERY 01/05/2023 TOTAL ABDOMINAL HYSTERECTOMY W/ BILATERAL SALPINGOOPHORECTOMY 1995 WESLEY/BSO TUBAL LIGATION 1976 OB History 2 Para 2 Term 2 0 AB 0 Living 2 SAB 0 IAB 0 Ectopic 0 Multiple 0 Live Births 2 Allergies Allergen Reactions Latex Rash Amoxicillin Stomach upset Doxycycline Other (See comments) Severe Back Pain Levofloxacin Palpitations Med List Status: Nurse Complete Set By: Amparo Avitia RN at 07/24/2024 3:09 PM Taking? Last Dose Start Date End Date Provider albuterol HFA (PROVENTIL HFA,VENTOLIN HFA,PROAIR HFA) 90 mcg/actuation inhaler -- -- -- Christie Lancaster MD amLODIPine (NORVASC) 5 mg tablet -- 06/04/24 -- Jacob Espitia MD Take 1 tablet (5 mg total) by mouth daily aspirin 81 mg tablet -- 05/10/16 -- Alhaji Payan MD take 1 tablet by oral route every day budesonide (PULMICORT) 0.5 mg/2 mL nebulizer solution -- 07/20/24 -- Christie Lancaster MD calcium carbonate (CALCIUM 600 ORAL) -- -- -- Christie Lancaster MD denosumab (PROLIA) 60 mg/mL syringe () 06/28/2024 07/19/24 07/19/24 Alhaji Payan MD Inject 1 mL (60 mg total) under the skin once for 1 dose Patient taking differently: Inject 1 mL (60 mg total) under the skin once Q 6 months for osteoporosis dupilumab (Dupixent Pen) 200 mg/1.14 mL pen injector 07/17/2024 -- -- Christie Lancaster MD famotidine (PEPCID) 20 mg tablet -- -- -- Christie Lancaster MD fluticasone propionate (FLONASE) 50 mcg/actuation nasal spray -- 01/18/23 -- Samra Watt MD Administer 1 spray into each nostril 2 (two) times a day as needed for rhinitis formoterol (PERFOROMIST) 20 mcg/2 mL nebulizer solution -- 07/04/24 -- Chritsie Lancaster MD ipratropium-albuteroL (DUO-NEB) 0.5-2.5 mg/3 mL nebulizer solution -- -- -- Christie Lancaster MD No current facility-administered medications for this encounter. Current Outpatient Medications: budesonide (PULMICORT) 0.5 mg/2 mL nebulizer solution formoterol (PERFOROMIST) 20 mcg/2 mL nebulizer solution albuterol HFA (PROVENTIL HFA,VENTOLIN HFA,PROAIR HFA) 90 mcg/actuation inhaler amLODIPine (NORVASC) 5 mg tablet aspirin 81 mg tablet calcium carbonate (CALCIUM 600 ORAL) denosumab (PROLIA) 60 mg/mL syringe dupilumab (Dupixent Pen) 200 mg/1.14 mL pen injector famotidine (PEPCID) 20 mg tablet fluticasone propionate (FLONASE) 50 mcg/actuation nasal spray ipratropium-albuteroL (DUO-NEB) 0.5-2.5 mg/3 mL nebulizer solution Social History Tobacco Use Smoking Status Former Smokeless Tobacco Never Tobacco Comments Smoking History Packs/day: 0.25 Packs Alcohol Use: Patient Declined (11/16/2023) Re[facility] from [facility], [facility] AUDIT-C Frequency of Alcohol Consumption: Patient declined Average Number of Drinks: Patient declined Frequency of Binge Drinking: Patient declined Substance and Sexual Activity Drug Use Never Family History Problem Relation Age of Onset Heart disease Mother Coronary artery disease Mother Coronary artery disease; Hypertension Mother Hypertension; Liver cancer Father Melanoma Father Cancer Father Congenital heart disease Brother Congenital heart disease; Throat cancer Brother HPV Virus Hypertension Brother Diabetes Brother Diabetes mellitus; Heart attack Son 45 Maker No Known Problems Daughter Stroke Maternal Grandmother Alcohol abuse Brother Hypertension Brother There were no vitals filed for this visit. PT: No results found for requested labs within last 30 days. INR: No results found for requested labs within last 30 days. APTT: No results found for requested labs within last 30 days. Hgb A1C: No results found for requested labs within last 30 days. CBC RBC: No results found for requested labs within last 30 days. RDW: No results found for requested labs within last 30 days. MCHC: No results found for requested labs within last 30 days. MCH: No results found for requested labs within last 30 days. MCV: No results found for requested labs within last 30 days. Hct: No results found for requested labs within last 30 days. Hgb: No results found for requested labs within last 30 days. WBC: No results found for requested labs within last 30 days. MPV: No results found for requested labs within last 30 days. Platelets: No results found for requested labs within last 30 days. RDW CV: No results found for requested labs within last 30 days. RDW Sd: No results found for requested labs within last 30 days. BMP Glucose: No results found for requested labs within last 30 days. Calcium: No results found for requested labs within last 30 days. Sodium: No results found for requested labs within last 30 days. Potassium: No results found for requested labs within last 30 days. CO2: No results found for requested labs within last 30 days. Chloride: No results found for requested labs within last 30 days. BUN: No results found for requested labs within last 30 days. Creatinine: No results found for requested labs within last 30 days. Normal left ventricular systolic function with no focal wall motion abnormalities. Mild global left ventricular systolic dysfunction. Impaired diastolic relaxation Grade I. Ejection fraction is measured at 52 %. These segments of the LV are akinetic mid anterolateral segment. Mild pulmonic regurgitation. Electronically Signed By: Jacob Espitia MD, [facility] 2023-01-17 10:18:09 AIR POLLUTION ANALYST Normal left ventricular ejection fraction with a focal area of anterolateral akinesis. 2. Insignificant coronary artery disease DOS Physical Exam Medical history, medications, and allergies reviewed. Attestation: This PAT evaluation 08/07/2024. Airway Exam: Mallampati: II Cervical ROM: FROM TM distance: normal Cardiovascular Exam: Rate: regular Rhythm: regular Pulmonary Exam: LCTA EENT Exam: trachea midline Dental Exam: Appears intact Skin Exam: Skin is warm. Capillary refill is < 3 seconds. Abdominal Exam: Abdomen is soft. Bowel sounds are present. Current state: Patient's current state is cooperative and interactive. Anesthesia Plan ASA 3 Planned anesthesia: General Team communication plan: oral ET tube Induction: Induction: intravenous. Postoperative Plan: Postoperative administration opioids intended. No postoperative mechanical ventilation intended. Patient's planned disposition post procedure is Outpatient. No trial extubation planned. Informed Consent: Discussed plan with attending and TEST HOLE DRILLER. Consent and Attending signature: I and/or my designee have discussed the anesthesia plan, benefits, possible alternatives, parental presence at time of induction (if indicated), and clinically relevant risks that may include dental injury, unintentional awareness, and/or other complications. The patient and/or parent/legal guardian understand, and agree to proceed. All questions answered. documented in this encounter Plan of Treatment Not on file documented as of this encounter Procedures Procedure Name Priority Date/Time Associated Diagnosis Comments MD AN ELECTIVE ENDOTRACHEAL AIRWAY Routine 08/07/2024 1:28 PM CDT documented in this encounter Results * MD AN ELECTIVE ENDOTRACHEAL AIRWAY (08/07/2024 1:28 PM CDT) Narrative Tamra Norman CRNA - 08/07/2024 1:28 PM CDT Tamra Norman CRNA ? 08/07/2024 ??1:29 PM Airway Patient location: OR Urgency: elective Indications for airway management: anesthesia Difficult airway: no Staff: Placed by: TEST HOLE DRILLER: Tamra Norman CRNA Emergent airway documentation: Risks and benefits discussed: yes Consent obtained: yes Consent given by: patient Airway prep: Preoxygenated: yes Patient position: sniffing Mask difficulty assessment: 1 - vent by mask Spontaneous ventilation during airway: absent Sedation level during airway: GA Final airway details: Final airway type: endotracheal airway Tube type: ETT ETT size: 7.0 mm Cuffed: yes Technique used for successful ETT placement: direct laryngoscopy Devices/Methods used in placement: stylet Insertion site: oral Blade type: Lobito Blade size: 3 Cormack-Lehane (direct): grade I - full view of glottis Cuff inflated with: air ETT to teeth: 21 cm Placement verified by: auscultation and CO2 detection Airway secured with: silk tape Number of attempts: 1 Planned trial extubation: yes Additional comments: Direct laryngoscopy and intubation performed by HEIKE De La Paz under the direct supervision of TEST HOLE DRILLER. Teeth and lips in preop condition after intubation. Carmen Dickens MD ANESTHESIA ORDERABL ES Final Result documented in this encounter Visit Diagnoses Not on filedocumented in this encounter Administered Medications Inactive Administered Medications - up to 3 most recent administrations Medication Order MAR Action Action Date Dose Rate Site dexAMETHasone (DECADRON) 4 mg/mL injection intravenous, Administer over 2 Minutes, As needed, Starting on Tue08/07/24 at 1312, Anesthesia Intra-op Given 08/07/2024 1:12 PM CDT 4 mg fentaNYL (SUBLIMAZE) preservative free injection intravenous, As needed, Starting on Tue08/07/24 at 1259, Anesthesia Intra-op Given 08/07/2024 4:56 PM CDT 25 mcg Given 08/07/2024 4:16 PM CDT 25 mcg Given 08/07/2024 12:59 PM CDT 50 mcg Lactated Ringer's (LR) infusion 30 mL/hr, intravenous, Continuous, Starting on Tue08/07/24 at 1045, Pre-Op New Bag 08/07/2024 4:42 PM CDT New Bag 08/07/2024 12:57 PM CDT lidocaine (cardiac) (XYLOCAINE) preservative free injection intravenous, As needed, Starting on Tue08/07/24 at 1303, Anesthesia Intra-op, Indications: Ventricular ArrhythmiasIndications:Ventricular Arrhythmias Given 08/07/2024 1:03 PM CDT 60 mg midazolam (VERSED) 1 mg/mL preservative free injection intravenous, Administer over 2 Minutes, As needed, Starting on Tue08/07/24 at 1256, Anesthesia Intra-op Given 08/07/2024 12:56 PM CDT 2 mg ondansetron (ZOFRAN) injection intravenous, Administer over 2 Minutes, As needed, Starting on Tue08/07/24 at 1641, Anesthesia Intra-op Given 08/07/2024 4:41 PM CDT 4 mg phenylephrine (SAM-SYNEPHRINE) 1 mg/10 mL (100 mcg/mL) in sodium chloride 0.9% (premix) intravenous, As needed, Starting on Tue08/07/24 at 1321, Anesthesia Intra-op Given 08/07/2024 2:12 PM CDT 100 mcg Given 08/07/2024 1:21 PM CDT 100 mcg phenylephrine (SAM-SYNEPHRINE) 25,000 mcg in sodium chloride 0.9% 250 mL (100 mcg/mL) infusion intravenous, Continuous PRN, Starting on Tue08/07/24 at 1317, Anesthesia Intra-op Rate/Dose Change 08/07/2024 2:54 PM CDT 0.4 mcg/kg/min 16.056 mL/hr Rate/Dose Change 08/07/2024 2:47 PM CDT 0.3 mcg/kg/min 12. 042 mL/hr Rate/Dose Change 08/07/2024 2:13 PM CDT 0.4 mcg/kg/min 16. 056 mL/hr propofoL (DIPRIVAN) 10 mg/mL IV intravenous, As needed, Starting on Tue08/07/24 at 1303, Anesthesia Intra-op Given 08/07/2024 1:03 PM CDT 120 mg rocuronium (ZEMURON) injection intravenous, As needed, Starting on Tue08/07/24 at 1304, Anesthesia Intra-op Given 08/07/2024 3:16 PM CDT 10 mg Given 08/07/2024 2:13 PM CDT 10 mg Given 08/07/2024 1:27 PM CDT 10 mg sugammadex (BRIDION) 100 mg/mL intravenous solution intravenous, As needed, Starting on Tue08/07/24 at 1652, Anesthesia Intra-op Given 08/07/2024 4:52 PM CDT 200 mg documented in this encounter Care Teams Supervisor Tellers Relationship Specialty Start Date End Date Torito Gonzalez MD [address] [place] [address] PCP - General 02/25/17 [place] [id number] [address] Consulting Physician Pulmonary Disease 01/30/24 documented as of this encounter
--- OUTSIDE RECORDS SUMMARY | 2024-11-18 11:53 | XMS_ITS | Encounter Summary ---
Author Organization [facility] Healthcare Address [address] [place] [address] Care Team Providers Care Litigation Examiner Name Role Phone Torito Gonzalez MD Primary Care Provider [phone] Sol Lincoln MD Unavailable [phone] Encounter Details Date Type Department Care Team (Late st Contact Info) Description 06/20/2024 Telephone [employer] [address] [facility] [address] [place] [address] Celena Quiroz MA Social History Tobacco Use Types Packs/Day Years [...] any clubs o r organizations such as anabaptist groups, unions, fraternal or athletic groups, or [...] place to sleep or slept in a care home (including now)? 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 Pt needs current CMP. Order placed. Pt made aware. Pt will call onceshe gets it drawn. documented in this encounter Plan of Treatment Not on file documented as of this encounter Visit Diagnoses Not on filedocumented in this encounter Care Teams Litigation Examiner Relationship Specialty Start Date End Date Torito Gonzalez MD [address] [place] [address] PCP - General 02/25/17 [place] [id number] [address] Consulting Physician Pulmonary Disease 01/30/24 documented as of this encounter
--- OUTSIDE RECORDS SUMMARY | 2024-11-18 11:53 | XMS_ITS | Encounter Summary ---
Author Organization [facility] Healthcare Address [address] [place] [address] Care Team Providers Care 911 Dispatcher Name Role Phone Torito Gonzalez MD Primary Care Provider [phone] Sol Lincoln MD Unavailable [phone] Reason for Referral * MRI/CAT/PET Scan (Routine) - Closed Specialty Diagnoses / Procedures Referred By Turner t Referred To Contact Radiology Diagnoses Chronic sinusitis, unspecified location Procedures [place] Sinus [place] [address] [place] [address] Phone: tel: fax: [address] [address] Referral ID Status Reason Start Date Expiration Date Visits Re quested Visits Authorized [id number] Closed 04/16/2024 05/16/2025 1 1 Reason for Visit * MRI/CAT/PET Scan (Routine) - Closed Specialty Diagnoses / Procedures Referred By Turner t Referred To Contact Radiology Diagnoses Chronic sinusitis, unspecified location Procedures [place] Sinus [place] [address] [place] [id number] Phone: tel: fax: [address] [phone] Referral ID Status Reason Start Date Expiration Date Visits Re quested Visits Authorized [id number] Closed 04/16/2024 05/16/2025 1 1 Encounter Details Date Type Department Care Team (Latest Contact Info) Description 05/14/2024 7:27 AM CDT - 05/14/2024 11:59 PM CDT Hospital Encounter [facility] [id number] [place] [id number] [place] [address] [facility] [address] [place] [address] Chronic sinusitis, unspecified location Discharge Disposition: Discharge to home or self care Social History Tobacco Use Types Packs/Day Years [...] How often do you attend chur or baptism services? More than 4 times per year 01/18/2023 Do you belong to any clubs o r organizations such as adventism groups, unions, fraternal or athletic groups, or [...] place to sleep or slept in a [place] [facility] [place] (including now)? 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 Gender Identity Not on file Sexual Orientation Not on file documented as of this encounter Medications at Time of Discharge albuterol HFA (PROVENTIL HFA,VENTOLIN HFA,PROAIR HFA) 90 mcg/actuation inhaler albuterol sulfate HFA 90 mcg/actuation aerosol inhaler INHALE 1 TO 2 PUFFS BY MOUTH EVERY 6 HOURS NEEDED FOR WHEEZING aspirin 81 mg tablet take 1 tablet by oral route every day 0 0 05/10/2016 budesonide (PULMICORT) 0.5 mg/2 mL nebulizer solution Take 2 mL (0.5 mg total) by nebulization daily 07/20/2024 calcium carbonate (CALCIUM 600 ORAL) Take 1 tablet by mouth daily dupilumab (Dupixent Pen) 200 mg/1.14 mL pen injector Inject 200 mg under the skin every 2 (two) weeks famotidine (PEPCID) 20 mg tablet Take 1 tablet (20 mg total) by mouth every other day fluticasone propionate (FLONASE) 50 mcg/actuation nasal spray Administer 1 spray into each nostril 2 (two) times a day as needed for rhinitis 1 each 01/18/2023 formoterol (PERFOROMIST) 20 mcg/2 mL nebulizer solution Take 2 mL (20 mcg total) by nebulization daily 07/04/2024 ipratropium-albute roL (DUO-NEB) 0.5-2.5 mg/3 mL nebulizer solutionIndication s:Chronic Obstructive Pulmonary Disease with Bronchospasms Take 3 mL by nebulization every 6 (six) hours as needed for shortness of breath As needed methylPREDNISolone (MEDROL DOSEPACK) 4 mg Dosepack Take as directed on package 1 packet 08/07/2024 08/13/20 24 amLODIPine (NORVASC) 5 mg tablet Take 1 tablet by mouth once daily 90 tablet 3 06/27/2023 06/04/20 24 denosumab (PROLIA) 60 mg/mL syringe Inject 1 mL (60 mg total) under the skin once for 1 dose 1 mL 12/27/2023 06/14/20 24 HYDROcodone-acetam inophen (NORCO) 5-325 mg per tabletIndications: Pain Take 1 tablet by mouth every 6 (six) hours as needed for pain 20 tablet 08/07/2024 08/08/20 24 documented as of this encounter Discharge Disposition Disposition Code Departure Means Destination Discharge to home or self care documented in this encounter Plan of Treatment Not on file documented as of this encounter Procedures Procedure Name Priority Date/Time Associated Diagnosis Comments CT SINUS STEALTH WO CONTRAST Schedule Routine, Read Routine (OP Routine) 05/14/2024 7:38 AM CDT Chronic sinusitis, unspecified location documented in this encounter Results * CT Sinus Stealth [...] location documented in this encounter Care Teams 911 Dispatcher Relationship Specialty Start Date End Date Torito Gonzalez MD [address] [place] [address] PCP - General 02/25/17 [place] [address] [address] Consulting Physician Pulmonary Disease 01/30/24 documented as of this encounter
--- OUTSIDE RECORDS SUMMARY | 2024-11-18 11:53 | XMS_ITS | Encounter Summary ---
Author Organization [facility] Address [address] [place] [address] Phone Care Team Providers Care Fire Extinguisher Technician Name Role Phone Torito Gonzalez MD Primary Care Provider [phone] Sol Lincoln MD Unavailable [phone] Reason for Visit * Reason Comments Sinusitis Ct scan done today Encounter Details Date Type Department Care Team (Late st Contact Info) Description 05/14/2024 9:00 AM CDT Office Visit [facility]) - [facility] ENT [address] [facility] Medical Office Building [address] [place] [address] [place] [address] [facility] [address] [place] [id number] Chronic pansinusitis (Primary Dx); Polyp of nasal cavity; Deviated nasal septum; Hypertrophy of both inferior nasal turbinates Social History Tobacco Use Types Packs/Day Years [...] week 01/18/2023 How often do you attend [facility] or yarsanism services? More than 4 times per year 01/18/2023 Do you belong to any clubs o r organizations such as yarsanism groups, unions, fraternal or athletic groups, or [...] place to sleep or slept in a [facility] (including now)? 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 female [...] and flonase but is not feeling better. Past Medical History: Diagnosis Date Dysphagia GERD [...] Dysphagia CAD (coronary artery disease) Prinzmetal's angina ([facility] ([facility]) Hx of colonic polyps Age-related osteoporosis without current pathological fracture NSTEMI (non-ST elevated myocardial infarction) ([facility] ([facility]) Hypertension Gastroesophageal reflux disease without esophagitis COPD (chronic obstructive pulmonary disease) ([facility]) Depression Surgical wound infection Obstructive sleep apnea (adult) (pediatric) Chronic sinusitis Polyp of nasal cavity Past Surgical History: Procedure Laterality Date APPENDECTOMY [...] Alcohol Use: Patient Declined (11/16/2023) Received from [facility] AUDIT-C Frequency of Alcohol Consumption: [...] No Known Problems Daughter Allergies Allergen Reactions Latex Rash Amoxicillin Stomach [...] with the patient during the visit on 05/14/2024. All review of systems not otherwise marked [...] or discharge. No bleeding. Septum deviated right. Left inferior turbinate hypertrophy Oral Cavity/Oropharynx: No visible mucosal lesions. Floor [...] endoscopy Indication: Inadequate view on anterior rhinoscopy with recent nosebleeds Description: The patient's nose was topically anesthetized and decongested. A rigid 30 degree endoscope was placed to examine bilateral nasal cavities. Findings: Septum was deviated right at extreme caudal end of septum, narrowing right nasal cavity significantly, with large spur to right posteriorly. Clot spot from lateral right nasal cavity wall but no active bleeding. Able to enter nasal cavity on right with difficulty. Mucus in bilateral nasal cavities was thin and clear with exception of thick sticky frothy mucus inposterior left nasal cavity. On the right, the nasal mucosa was edematous throughout. The inferior turbinate was hypertrophied. The middle turbinate was intact. The endoscope was advanced to the middle meatus. There was thick scarring with partial absence of middle turbinate. There was [...] middle meatus. There was thick scarring with partial absence of middle turbinate. There was polypoid mucosa on presumed uncinate. There was no view into maxillary sinus, no evidence of prior antrostomy, severe scarring of ethmoid cavity, no view to sphenoethmoid recess. Radiology review I personally reviewed the report from CT sinus from [facility] performed 11/2022. My findings are FINDINGS:MAXILLARY SINUSES: [...] parenchyma. OTHER: No other significant finding . I personally reviewed and independently interpreted the [...] deviated right. Assessment /Plan Assessment and Plan: 68 y.o. 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 Also significantly narrowed right nasal cavity due to deviated septum and spur. No improveement with nasal rinses and flonase. Due to the patient's continued issues with CRSwNP despite appropriate maximal medical therapy, she meets criteria for functional endoscopic sinus surgery. We discussed the risks of surgery, includingpostoperative bleeding; pain; infection; damage to surrounding structures including septum, olfactory nerve, brain, orbit; CSF leak; numbness of central maxillary teeth; and possible need for septoplasty for access. We discussed the importance of postoperative rinsing and postoperative debridementsto decrease scarring of the sinuses. We discussed that a few days of blood dripping from the nose is anticipated, but that she should let us know of any steady stream of bleeding lasting greater than30 minutes postoperatively. If a septoplasty is required, splints will be sutured in place and willbe removed at the 1st postoperative visit. The patient understood and agreed to proceed with surgery. Discussed that rightward deviated septum may need to be addressed if unable to access sinuses, but that full treatment of deviated septum would require OSR due to caudal deviation of septum. Plan for bilateral max, total ethmoids, sphenoids, frontal outflow tracts, ITR, stealth Surgery to be scheduled at [facility], 3.5 hours [id number], general anesthesia. The note in its entirety has been confirmed by me, the attending physician. Parts of the note were initially recorded by my staff. Lydia Rojas M.D. Motor Setter Department of Otolaryngology-Head and Neck Surgery [facility] Clinic phone: 05/14/2024 documented in this encounter Plan of Treatment Not on file documented as of this encounter Visit Diagnoses Diagnosis Chronic pansinusitis- Primary Other chronic sinusitis Polyp of nasal cavity Deviated nasal septum Hypertrophy of both inferior nasal turbinates documented in this encounter Care Teams Fire Extinguisher Technician Relationship Specialty Start Date End Date Torito Gonzalez MD [address] [place] [address] PCP - General 02/25/17 [place] [address] [address] Consulting Physician Pulmonary Disease 01/30/24 documented as of this encounter
--- OUTSIDE RECORDS SUMMARY | 2024-11-18 11:53 | XMS_ITS | Encounter Summary ---
Author Organization [facility] Healthcare Address [address] [place] [address] Care Team Providers Care Table Assembler Name Role Phone Torito Gonzalez MD Primary Care Provider [phone] Sol Lincoln MD Unavailable [phone] Reason for Visit * Auth/Cert (Routine) Specialty Diagnoses / Procedures Referred By Turner ramirez Referred To Contact Diagnoses Chronic sinusitis, unspecified location Hypertrophy of both inferior nasal turbinates Chronic sinusitis, unspecified location [J32.9] Hypertrophy of both inferior nasal turbinates [J34.3] Procedures SD SUBMUCOUS RESCJ INFERIOR TURBINATE PRTL/COMPL SD NSL/SINUS NDSC MAX ANTROST W/RMVL TISS MAX SINUS SD NASAL/SINUS NDSC W/TOTAL ETHOIDECTOMY SD NSL/SINUS NDSC SPHENDT RMVL TISS SPHENOID SINUS SD NASAL/SINUS NDSC W/RMVL TISS FROM FRONTAL SINUS ENDOSCOPIC SINUS SURGERY WITH NAVIGATION (210min) TURBINECTOMY Referral ID Status Reason Start Date Expiration Date Visits Re quested Visits Authorized [id number] 1 1 Encounter Details Date Type Department Care Team (Latest Contact Info) Description 08/07/2024 10:08 AM CDT - 08/07/2024 6:58 PM CDT Hospital Encounter [facility] Operating Room [address] [place] [address] [place] [id number] [address] Chronic sinusitis, unspecified location; Hypertrophy of both inferior nasal turbinates Discharge Disposition: Discharge to home or self [...] often do you attend chur ch or quaker services? More than 4 times per year 01/18/2023 Do you belong to any clubs o r organizations such as rastafari groups, unions, fraternal or athletic groups, or [...] place to sleep or slept in a alf (including now)? No 01/18/2023 Personal Safety Answer Date Recorded Have you ever been in or are you currently in a harmful physical or emotional relationship or is someone making you feel afraid or unsafe? 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 TE[employer] Gender Identity Not on file Sexual Orientation Not on file documented as of this encounter Last Filed Vital Signs Vital Sign Reading Time Taken Comments Blood Pressure 122/74 08/07/2024 6:17 PM CDT Pulse 65 08/07/2024 6:17 PM CDT Temperature 36.7 ??C (98 ??F) 08/07/2024 5:10 PM CDT Respiratory Rate 18 08/07/2024 6:17 PM CDT Oxygen Saturation 95% 08/07/2024 6:17 PM CDT Inhaled Oxygen Concentration - - Weight 66.9 kg (147 lb 8 oz) 08/07/2024 10:33 AM CDT Height 165.1 cm (5' 5 ) 08/07/2024 10:33 AM CDT Body Mass Index 24.55 08/07/2024 10:33 AM CDT documented in this encounter Discharge Instructions * Discharge Instructions* Una Weir RN - 08/07/2024 10:41 AM CDT Discharge Instructions -Endoscopic Sinus Surgery Please Read and Follow These Instructions for the Best Outcomes Following Your Surgery! WHAT TO EXPECT FOLLOWING SURGERY: ? Bleeding - A drip from the nose and into the back of the throat is normal for the first two days following surgery. For flowing blood (like a faucet), contact the ENT Doctor union representative as noted below. ? Nasal congestion, fullness, facial pain, headache, and disrupted sleep are normal for the first week and are an expected part of the healing process. This will improve after the first debridement is performed in clinic about one week following surgery. NASAL IRRIGATIONS: ? Good post-operative irrigation on your part is essential to a successful outcome! ? Instructions: Use the Irrigation bottle/method mixed with a sterile saline solution at least three times per day (1 bottle per nostril). Use distilled, bottled or previously boiled water tap to make up the saline solution according to the instructions. Start rinses the day after surgery. Use 1 packet with distilled water or previously boiled water to make the mixture. ACTIVITY: ? Minimize your activities with only light activity for the first week following surgery. Listen toyour body! If you feel tired over the first few days, you should rest. ? No nose blowing, stooping, straining or heavy lifting > 2 bags of groceries. ? Sneeze with your mouth open. ? Sleeping with your head elevated will reduce bleeding from the nose. ? If you have been prescribed a CPAP machine, do not use until your doctor says it is safe; sleep in a recliner chair with your head elevated in the meantime. MEDICATIONS: ? Resume your home medications ? Do not take any aspirin containing products or blood thinners (Goody???s, BC Powder or Francisco aspirin) for 5 days. ? Do not take any intranasal medicines until told to by your surgeon ? Pain: - Mild to moderate pain: Over the counter Tylenol (Acetaminophen) as per the instructions on the bottle - Severe pain: Take your pain medicine prescription as directed:NEVER DRIVE A VEHICLE OR OPERATE HEAVY MACHINERY WHEN TAKING PRESCRIPTION PAIN MEDICINE! DRIVING: ? Do not drive within 24 hours of receiving anesthesia ? Do not drive while taking prescription pain medication DIET: ? Resume a healthy, balanced, normal diet as you feel up to it. FOLLOW-UP: - You will have important follow-up appointments starting about one week following surgery - If you do not have an appointment, please call the numbers below to schedule a visit. APPOINTMENTS: ? [facility] [employer] ([facility]) Call our office or go to the Emergency Room immediately if you have any of the following: - Any vision problems/changes - Fever over 101.4 - Neck stiffness - Heavy or prolonged bright red bleeding from the nose ? Regular hours: to speak with my nurse, Diane. ? After hours: and ask for the Ear, Nose and Throat (ENT) resident union representative. FOLLOW UP CALLS You may get a couple of follow-up phone calls from us over the next 2 days. For your information, our number may come up as unknown or a random number. We will call you the next day after surgery to follow up with you on pain control and see if you have any questions or concerns. If we areunable to reach you, we will leave a voice message if that is an option and then attempt to reach you again the following day. If we are still unable to reach you on that second day after surgery, we will stop the process of follow up calls. Please reach out to your surgeon if you have any questions or concerns. We want you to be able to say your care was EXCELLENT! If it was not, please let us know! Good and Great are not enough for us, we strive for EXCELLENCE! * Attachments The following attachments cannot be sent through Care Everywhere. * FESS (Functional Endoscopic Sinus Surgery) (Discharge Care) ([place]) * Turbinate Reduction (Discharge Care) ([place]) * General Anesthesia (Discharge Care) ([place]) documented in this encounter Medications at Time of Discharge albuterol HFA (PROVENTIL HFA,VENTOLIN HFA,PROAIR HFA) 90 mcg/actuation inhaler albuterol sulfate HFA 90 mcg/actuation aerosol inhaler INHALE 1 TO 2 PUFFS BY MOUTH EVERY 6 HOURS NEEDED FOR WHEEZING amLODIPine (NORVASC) 5 mg tablet Take 1 tablet (5 mg total) by mouth daily 90 tablet 3 06/04/2024 aspirin 81 mg tablet take 1 tablet by oral route every day 0 0 05/10/2016 budesonide (PULMICORT) 0.5 mg/2 mL nebulizer solution Take 2 mL (0.5 mg total) by nebulization daily 07/20/2024 calcium carbonate (CALCIUM 600 ORAL) Take 1 tablet by mouth daily denosumab (PROLIA) 60 mg/mL syringe Inject 1 mL (60 mg total) under the skin once for 1 dose 1 mL 07/19/2024 dupilumab (Dupixent Pen) 200 mg/1.14 mL pen [...] on package 1 packet 08/07/2024 08/13/20 24 HYDROcodone-acetam inophen (NORCO) 5-325 mg per tabletIndications: Pain Take 1 tablet by mouth every 6 (six) hours as needed for pain 20 tablet 08/07/2024 08/08/20 24 documented as of this encounter Ordered Prescriptions Prescription Sig Dispense Quantity Refills Last Filled Start Date End Date methylPREDNISolone (MEDROL DOSEPACK) 4 mg Dosepack Take as directed on package 1 packet 08/07/2024 4 HYDROcodone-acetam inophen (NORCO) 5-325 mg per tabletIndications: Pain Take 1 tablet by mouth every 6 (six) hours as needed for pain 20 tablet 08/07/2024 4 documented in this encounter Discharge Disposition Disposition Code Departure Means Destination Comment s Discharge to home or self care documented in this encounter H&P Notes * Antonio Colindres MD - 08/07/2024 10:38 AM CDT General H&P Subjective Patient is a 69 y.o. female with chief complaint of sinus issues. HPI: Gabbie Dsouza is a 68 y.o. female who presents [...] frequent nosebleeds in right nostril at night. Past Medical History: Diagnosis Date Arthritis Asthma Cataract 2018 Chronic sinusitis, unspecified location COPD (chronic obstructive pulmonary disease) ([facility]) Dysphagia GERD (gastroesophageal reflux disease) HX [...] BILATERAL SALPINGOOPHORECTOMY 1995 [place]/BSO TUBAL LIGATION 1976 Medications Prior to Admission Medication Sig Dispense Refill Last Dose budesonide (PULMICORT) 0.5 mg/2 mL nebulizer solution Take 2 mL (0.5 mg total) by nebulization daily formoterol (PERFOROMIST) 20 mcg/2 mL nebulizer solution Take 2 mL (20 mcg total) by nebulization daily albuterol HFA (PROVENTIL HFA,VENTOLIN HFA,PROAIR HFA) 90 mcg/actuation inhaler albuterol sulfate HFA 90 mcg/actuation aerosol inhaler INHALE 1 TO 2 PUFFS BY MOUTH EVERY 6 HOURS NEEDED FOR WHEEZING amLODIPine (NORVASC) 5 mg tablet Take 1 tablet (5 mg total) by mouth daily 90 tablet 3 aspirin 81 mg tablet take 1 tablet by oral route every day 0 0 calcium carbonate (CALCIUM 600 ORAL) Take 1 tablet by mouth daily denosumab (PROLIA) 60 mg/mL syringe Inject 1 mL (60 mg total) under the skin once for 1 dose (Patient taking differently: Inject 1 mL (60 mg total) under the skin once Q 6 months for osteoporosis) 1 mL 0 06/28/2024 dupilumab (Dupixent Pen) 200 mg/1.14 mL pen injector Inject 200 mg under the skin every 2 (two) weeks 07/17/2024 famotidine (PEPCID) 20 mg tablet Take 1 tablet (20 mg total) by mouth every other day fluticasone propionate (FLONASE) 50 mcg/actuation nasal spray Administer 1 spray into each nostril 2 (two) times a day as needed for rhinitis 1 each 0 ipratropium-albuteroL (DUO-NEB) 0.5-2.5 mg/3 mL nebulizer solution Take 3 mL by nebulization every 6 (six) hours as needed for shortness of breath As needed Allergies Allergen Reactions Latex Rash Amoxicillin Stomach upset Doxycycline Other (See comments) Severe Back Pain Levofloxacin Palpitations Social History Tobacco Use Smoking status: Former Smokeless tobacco: Never Tobacco comments: Smoking History Packs/day: 0.25 Packs Substance and Sexual Activity Drug use: Never Sexual activity: Defer Partners: Male Alcohol Use: Patient Declined (11/16/2023) Received from [facility], [facility] AUDIT-C Frequency [...] Maternal Grandmother Alcohol abuse Brother Hypertension Brother Review of Systems: Constitutional: Denies any significant weight loss or weight gains. Neuro: Denies headaches, vision changes, vertigo, dizziness, numbness/tingling. HEENT: As noted in HPI CV: Denies chest pain or angina. Pulm: Denies shortness of breath, stridor, wheezing. GI: Denies nausea, vomiting, abdominal pain, diarrhea, or constipation. MSK: Denies muscle/joint swelling. Full range of motion : Denies hematuria or extremity swelling. Objective Vitals: Arrival Vitals [08/07/24 1033] Temp 36.4 ??C (97.6 ??F) Pulse 58 Resp 20 BP 132/82 SpO2 97 % Temp src Oral Heart Rate Source Monitor Patient Position BP Location FiO2 (%) 24hr Min/Max: Temp Min: 36.4 ??C (97.6 ??F) Max: 36.4 ??C (97.6 ??F) Pulse Min: 58 Max: 58 BP Min: 132/82 Max: 132/82 Resp Min: 20 Max: 20 SpO2 Min: 97 % Max: 97 % Most Recent : Vitals: 08/07/24 1033 BP: 132/82 Pulse: 58 Resp: 20 Temp: 36.4 ??C (97.6 ??F) SpO2: 97% No intake/output data recorded. No intake/output data recorded. Physical Exam: Vitals: 08/07/24 1033 BP: 132/82 Pulse: 58 Resp: 20 Temp: 36.4 ??C (97.6 ??F) TempSrc: Oral SpO2: 97% Weight: 66.9 kg (147 lb 8 oz) Height: 165.1 cm (5' 5 ) General: Well-developed, well-nourished in no apparent distress. Appropriate affect. Head and Face: Normocephalic, atraumatic. Skin: No cutaneous lesions of the face or neck. Neurologic: AAOx3, follows commands, V1-V3 intact and symmetric, facial movements symmetric. Eyes: Extraocular muscles are intact. Conjunctiva clear. No scleral icterus or injection. Ears: Normal external ear in appropriate position, mastoids soft, bilateral EAC patent w/o drainage. Nose: Dorsum is midline. No masses or polyps visualized on anterior rhinoscopy. No drainage or discharge. Oral Cavity/Oropharynx: No visible mucosal lesions. Tongue protrudes midline, palate elevates symmetrically. Tonsils are symmetric. Floor of mouth is pink and soft. No palpable abnormalities of the floor of mouth or oral tongue. Neck: Trachea midline, neck flat. No evidence of lymphadenopathy, masses or tenderness. Endocrine: No palpable abnormalities of the thyroid gland. Cardiovascular: Extremities are warm and well perfused. Pulmonary: Normal quiet breathing. No respiratory distress, stridor, or wheeze. Assessment Principal Problem: Hypertrophy of both inferior nasal turbinates Active Problems: Chronic sinusitis Plan OR for ITR and FESS Antonio Colindres MD Otolaryngology PGY-3 Cosigned by Lydia Rojas MD at 08/07/2024 10:42 AM CDT documented in this encounter Miscellaneous Notes * Op Note - Lydia Rojas MD - 08/07/2024 12:30 PM CDT Otolaryngology Operative Report Date of Service: 08/07/2024 Attending Physician: Lydia Rojas MD Resident Surgeon: Surgeons and Role: * Lydia Rojas MD - Primary * Atnonio Colindres MD - Assisting Preoperative Diagnosis: Pre-op Diagnosis * Chronic sinusitis, unspecified location [J32.9] * Hypertrophy of both inferior nasal turbinates [J34.3] Postoperative Diagnosis: Same. Procedure(s) Performed: Bilateral maxillary endoscopy with mucous membrane removal Bilateral nasal endoscopy with total ethmoidectomy and sphenoidotomy with tissue removal Bilateral nasal endoscopy with frontal sinusotomy Bilateral inferior turbinate reduction Stereotactic Computer assisted navigation, extradural Operative Findings: Bilateral preexisting partial surgical resection of middle turbinate Completely scarred over bilateral maxillary antrostomy Thick polyps in bilateral nasal cavities and bilateral maxillary sinuses Thick mucus filling left sphenoid sinus Anesthesia: General with endotracheal tube intubation. Estimated Blood Loss: No blood loss documented. Complications: None. Specimens: ID Type Source Tests Collected by Time Destination A : Bilateral sinus contents Tissue Sinus contents SURGICAL PATHOLOGY Lydia Rojas MD 08/07/2024 [id number] Indications for Surgery: Gabbie Dsouza is a 69 y.o. female with a long- standing history of chronic rhinosinusitis.The patient was evaluated as an outpatient and found to have persistent evidence of sinusitis on nasal endoscopy, with significant scarring from previous procedures with partial abse nce of middle turbinate. The patient underwent a CT preoperatively, confirming the above-mentioned diagnoses. The patient has failed medical management. The patient was instructed on the risks, benefits and possible complications of the procedure and informed consent was then obtained. Procedure: The patient was identified in the pre-operative holding area. The consent for surgery was reaffirmed and all questions were answered. The patient agreed to proceed with surgery. The patient was taken to the operating theater and was placed in the supine position on the operating table. A pre-induction timeout was performed confirming the patient's name, date of , the planned operative procedure, and patient's medication allergies. The patient then underwent induction of general anesthesia and intubation by the Anesthesia staff. The stereotactic CT image guidance system was then brought to the field. The CT data were loaded, reviewed, and an operative plan was finalized. The patient underwent surface match registration that was confirmed accurate in 3 separate planes. The patient was prepped and draped in the standard fashion for endoscopic sinus surgery. The bilateral nasal cavities were prepared with Afrin pledgets. The pre-surgical checklist was then conducted. This included verifying all pertinent sinonasal anatomy, including skull base location, ethmoid artery location, and cell configuration. It was also confirmed with the perioperative staff that all hemostatic agents including suction bovie, bipolar elect rocautery, and hemostatic agents were immediately available or on the surgical field. Next, the 0-degree endoscope was used to visualize each nasal cavity. The procedure began with right maxillary endoscopy with mucous membrane removal. The polyps in the right nasal cavity were debrided. The residual uncinate was identified, medialized and debrided. Themaxillary sinus was then entered with a maxillary sinus ostium seeker. Further debridement of the medial maxillary wall was done to open the antrostomy further. An angled endoscope was used to ensure connection to the natural maxillary sinus os, which was widened circumferentially and mucous membranes were removed. There was noted to be inflammatory changes and polypoid tissues within the maxillary sinus. These were removed with an angled microdebrider. The sinus then was copiously irrigated. There was a large posterior remnant of the horizontal portion of the middle turbinate, which was hanging inferiorly and polypoid. This was divided and removed with a through-cut. Then right nasal endoscopy with total ethmoidectomy was performed. There was a large amount of polyp and residual anterior ethmoid cells, which were taken down with curettes, Blakesley forceps and microdebrider. The posterior ethmoid cells, which were also polypoid degenerated, were then entered and removed. All anterior and posterior ethmoid cells were completely removed with curettes and microdebrider. The skull base and lamina papyracea was identified with image guidance. The anterior and posterior ethmoid cells were meticulously taken off the skull base as well as the lamina papyracea with use of angled instrumentation in a posterior to anterior fashion. The sinus was copiously irrigated. There was a small residual polypoid superior turbinate, which was divided. The sphenoid os was identified and then entered. The anterior face of the sphenoid was then enlarged. A large posterior clivus recess was seen in the sphenoid. The skull base was identified within the sphenoid sinus. The sinus then was copiously irrigated. Next, right nasal endoscopy with frontal sinusotomy was performed. The skull base was then followedanteriorly. The frontal sinus was then entered. Angled instrumentation and angled endoscopes were then used to open the natural frontal sinus outflow tract circumferentially. There was noted to be a Sil type 1 cell that was then connected to the frontal sinus outflow tract. The frontal sinus was noted to be widely patent. The sinus then was copiously irrigated. Next, the 0-degree endoscope was used to visualize the left nasal cavity. Then, left maxillary endoscopy with mucous membrane removal was performed. The polyps in the left nasal cavity were debrided. The residual uncinate was identified, medialized and debrided. The maxillary sinus was then entered with a maxillary sinus ostium seeker. Further debridement of the medial maxillary wall was done to open the antrostomy further. An angled endoscope was used to ensure connection to the natural maxillary sinus os, which was widened circumferentially and mucous membranes were removed. There were noted to be inflammatory changes and thick polypoid tissue within the maxillary sinus. These were removed with an angled microdebrider. The sinus then was copiously irrigated. Then left nasal endoscopy with total ethmoidectomy was performed. There was a large amount of polypand residual anterior ethmoid cells, which were taken down with curettes, Blakesley forceps and microdebrider. The posterior ethmoid cells, which were also polypoid degenerated, were then entered andremoved. All anterior and posterior ethmoid cells were completely removed with curettes and microdebrider. The skull base and lamina papyracea was identified with image guidance. The anterior and posterior ethmoid cells were meticulously taken off the skull base as well as the lamina papyracea withuse of angled instrumentation in a posterior to anterior fashion. The sinus was copiously irrigated. There was a small residual polypoid superior turbinate, which was divided. The sphenoid os was identified and then entered. The anterior face of the sphenoid was then enlarged. There was thick abnormal mucus and tissue within the sphenoid sinus which was removed. The skull base was identified within the sphenoid sinus. The sinus then was copiously irrigated. Next, left nasal endoscopy with frontal sinusotomy was performed. The skull base was then followed anteriorly. The agger nasi cell was divided. The frontal sinus was entered with an ostium seeker easily and was seen to be patent, but despite use of angled endoscopes and instrumentation, the frontalsinus outflow tract could not be widened due to inability to gain purchase on the bone. The frontalsinus was noted to be widely patent. The sinus then was copiously irrigated. Attention was then turned towards the bilateral submucous resection of inferior turbinate portion of the procedure. First the head of the right inferior turbinate was injected with 1% lidocaine with 1 100,000 epinephrine. A 15 blade was utilized to perform a linear stab incision at this site and a Maria elevator was inserted in this region and used to develop a sub-mucoperiosteal plane along thelongitudinal length of the inferior turbinate. With this pocket developed the inferior turbinate microdebrider was subsequently inserted and utilized to progressively debride the submucosa along the length of the turbinate. The turbinate was then outfractured using a Morrison elevator. Attention was then turned to the contralateral side. The head of the left inferior turbinate was injected with 1% lidocaine with 1 100,000 epinephrine. A 15 blade was utilized to perform a linear stab incision at this site and a Maria elevator was inserted in this region and used to develop a sub-mucoperiosteal pl ane along the longitudinal length of the inferior turbinate. With this pocket developed the inferior turbinate microdebrider was subsequently inserted and utilized to progressively debride the submucosa along the length of the turbinate. The turbinate was then outfractured using a Morrison elevator. Next, the bilateral nasal cavities were irrigated and hemostasis was achieved. Hemaderm and Posisepwere applied. The patient was briefly suctioned with an orogastric tube and then turned back to thecare of anesthesia for reversal of general anesthetic and extubation. The patient tolerated the procedure well and there were no immediate postoperative complications. Teaching Surgeon Attestation: Please note that Lydia Rojas MD was present and participated inall portions of this case. * Pre-Procedure Instructions - Amparo Avitia RN - 07/24/2024 3:09 PM CDT We are pleased that you and your doctor have chosen [facility] for your surgery. We hope that the following information will help make your visit a pleasant one. Surgery Date: 08/07/2024 Arrive at 10:30 AM. [facility] (look for sign reading ???EMERGENCY - SURGERY CENTER?? ) [address] [place] [address] Directions: When driving down [address] towards [facility], look for the sign that says Emergency. Take this Entrance, drive straight back following the signs that say Surgery Center. At the 3rd stop sign, the Surgery Center is on the left and parking is on the right. Parking is also straightahead across the road. Before your surgery: Notify your doctor of ANY change in your health such as a cold, sore throat, fever, infection or a change in the problem for which you are having your surgery. Follow any instructions given to you by your doctor or surgeon. Check with your doctor if you need to STOP taking: If you are taking any of these medications, please contact the Surgeon to see if you need to stop it prior to your surgery and if so when. Also, check with the prescribing physician. Aspirin (ordered by your doctor) One week before surgery STOP taking (unless directed otherwise by your physician): All herbal/vitamin supplements Aspirin (not ordered by your doctor) Aleve, Advil, Motrin, Ibuprofen, Excedrin, Naproxen, Meloxicam, Diclofenac (oral & topical) Relafen, Celebrex, Ketorolac (Toradol) or other similar medications (Tylenol is okay unless it is not recommended by your physician). Fish Oil/Echola 3, Co Q 10, Cod Liver Oil, or other similar products. 24 hours before your surgery: No smoking, chew, vaping, alcohol, Marijuana, or recreational drug use. It is best to stop smoking now to improve your health. Hydrate yourself (water) - if no restrictions. Night before your surgery: DO NOT eat or drink anything after midnight including candy, mints, gum, chewable antacids, and cough drops. However, You may have up to 16 ounces of water/Gatorade (Sugar Free if you are diabetic) (no red or purple) until 9:30 AM the morning of your surgery. Follow surgeon's instructions for anti-bacterial shower night before and morning of surgery. Before Surgery your body must be thoroughly cleaned. Shower Instructions Using Chlorhexidine gluconate or CHG (brand name: Hibiclens): CHG helps to reduce the bacteria (germs) from the skins surface. First Clean your hair using your normal shampoo. Do this so the antiseptic soap is not washed off by your shampoo. Wash face with warm water and/or your normal soap Move away from the shower stream. Using a clean washcloth and the CHG soap, thoroughly wash from jawline down (avoid the groin area, buttocks, and open wounds). Using a second clean washcloth and CHG soap, wash your groin area, and buttocks. (Do NOT use CHG onthe genital area.) Use enough soap to thoroughly cover your body. CHG soap does not produce much lather. You may need help if some areas cannot easily be reached, such as your back. Wash with the CHG soap for 2-3 minutes then Rinse thoroughly. Dry with a clean towel. Do not use lotions, powders, creams, Vaseline, makeup, or hair products after either shower. Dress in clean pajamas or clothing. Do not shave below the neck on the night before or day of surgery The night before surgery sleep on clean linen Do Not let pets sleep with you Day of surgery: You may brush your teeth and rinse your mouth out. Repeat shower. ONLY take these pills with a sip of water: Pre-Surgery Instructions: Medication Instructions budesonide (PULMICORT) nebulizer solution Take morning of surgery formoterol (PERFOROMIST) nebulizer solution Take morning of surgery albuterol HFA (PROVENTIL HFA,VENTOLIN HFA,PROAIR HFA) inhaler Take morning of surgery, if needed. amLODIPine (NORVASC) Take morning of surgery aspirin Hold as instructed by your provider calcium carbonate Hold the morning of surgery famotidine (PEPCID) Take morning of surgery fluticasone propionate (FLONASE) Hold the morning of surgery ipratropium-albuteroL (DUO-NEB) nebulizer solution Take morning of surgery, if needed. You Should bring a complete, up-to-date, list of all medications on the day of your surgery/procedure. Including any over the counter medications or supplements. Please note on your medication list the last time you took each medication. The healthcare team will ask for this information. Wear comfortable clothes that will not be tight over the area of your surgery Do Not Glue Dentures or Partials In If you have an implantable device with a remote, bring the remote with you on the day of surgery. Leave all valuables and jewelry, (including all body piercing jewelry), hairpins, false eyelashes, contact lenses at home. If you use a CPAP machine, please bring it with you to wear after your surgery. Please bring your photo ID, insurance cards, and medication list (including all rdhs-gyn-erytrir medications) with you. Prescriptions can be filled onsite prior to discharge. Please have your co-pay available. Check in at the Registration Desk. You may have 2 visitors (visitor must be over the age of 18). When you are discharged: You must have a responsible adult to drive you home, you will not be allowed to drive or take a cabhome. We recommend you have someone stay with you for 24 hours after your surgery. What to bring if you are spending the night with us: Bring toiletry items such as: robe, slippers, toothbrush, toothpaste, brush or comb. Bring contact lens, hearing aids, glass cases and denture container if you use any of these items. The hospital will provide you with a gown. Questions or concerns: If you have any questions or concerns regarding your procedure, or to cancel your surgery/procedure- contact your surgeon as soon as possible. If you have questions regarding your Pre-Admission Screen/Testing, please call at . documented in this encounter Plan of Treatment Not on file documented as of this encounter Procedures Procedure Name Priority Date/Time Associated Diagnosis Comments ENDOSCOPIC ETHMOIDECTOMY NAVIGATION - BILATERAL 08/07/2024 12:57 PM CDT Chronic sinusitis, unspecified location Hypertrophy of both inferior nasal turbinates ENDOSCOPIC SPHENOIDOTOMY NAVIGATION - BILATERAL 08/07/2024 12:57 PM CDT Chronic sinusitis, unspecified location Hypertrophy of both inferior nasal turbinates ENDOSCOPIC FRONTAL SINUSOTOMY FUSION NAVIGATION - BILATERAL 08/07/2024 12:57 PM CDT Chronic sinusitis, unspecified location Hypertrophy of both inferior nasal turbinates ENDOSCOPIC ANTROSTOMY NAVIGATION - BILATERAL 08/07/2024 12:57 PM CDT Chronic sinusitis, unspecified location Hypertrophy of both inferior nasal turbinates TURBINECTOMY 08/07/2024 12:57 PM CDT Chronic sinusitis, unspecified location Hypertrophy of both inferior nasal turbinates ENDOSCOPIC SINUS SURGERY WITH NAVIGATION 08/07/2024 12:57 PM CDT Chronic sinusitis, unspecified location Hypertrophy of both inferior nasal turbinates SURGICAL PATHOLOGY Routine 08/07/2024 12 :37 PM CDT Chronic sinusitis, unspecified location Hypertrophy of both inferior nasal turbinates documented in this encounter Results * Surgical pathology (08/07/2024 12:37 PM CDT) Tissue (Sinus contents) 08/07/2024 4:38 PM CDT Narrative PATHOLOGY CH - 08/09/2024 4:01 PM CDT EPIC results best viewed via link to PDF [facility] Department of Pathology [address] [place], [place] [id number] Note to Patients: This report may contain a detailed description of human tissue sent by a health care provider to the laboratory for pathologic evaluation. The content of this report is essential for diagnosis and may provide important critical findings. This information may be unfamiliar to patients to review without a medical professional present. It is advised that the patient review this report in the presence of a health care provider who can answer questions and explain the details. Final Report Patient Name: ??GABBIE DSOUZA Address: ??[address] [place] [address], ??[place], [place] ??[address]- Gender: ??F : ??1955 (Age: 69) Service: ??Surgery Location: ?? OR Hospital #: ??[id number] Patient Type: ??[facility] Accession # ?[id number] Taken: ??08/07/2024 Received: ??08/08/2024 Accessioned: ??08/08/2024 Reported: ??08/09/2024 Physician(s):Autumn Duran Dr., M.D. Diagnosis: Sinus contents, bilateral, excision: ? - Mild edema and mild chronic inflammation. Mckenzie Quijano M.D. Report Electronically Reviewed and Signed Out By ??Mckenzie Corcoran M.D. ??08/09/2024 16:01:40 Specimen(s) Received: A: Bilateral sinus content Microscopic Description: Microscopic examination of the bilateral sinus contents show fragments of mildly edematous respiratory type mucosa with mild chronic inflammation in a background of hemorrhage (which may be procedural related). ??There is no evidence of dysplasia or malignancy. Clinical History: Chronic sinusitis, hypertrophy of both inferior nasal turbinated Procedure: bilateral inferior turbinate reduction, enoscopic frontal sinusotomy navigation Gross Description: Received in a single formalin filled container labeled with GABBIE DSOUZA and bilateral sinus contents . ??It is an approximate 4 cc aggregate of pink-laguna mucosal tissue fragments and blood. ??Represented in 1 cassette. Karen Casas R.N., P.Toy./Renee Le M.D. REPORT IMAGES AND SCANNED DOCUMENTS, IF INCLUDED, ONLY VIEWABLE IN PDF VERSION OF REPORT The performance characteristics of some immunohistochemical stains, fluorescence in-situ hybridization tests and immunophenotyping by flow cytometry cited in this report (if any) were determined by the Surgical Pathology Department at [facility] as part of an ongoing quality systems manager program and in compliance with federally mandated regulations drawn from the Clinical Laboratory Improvement Act of 1988 (CLIA '88). ??Some of these tests rely on the use of analyte specific reagents and are subject to specific labeling requirements by the US Food and Drug Administration. ??Such diagnostic tests may only be performed in a facility that is certified by the Department of Health and Human Services as a high complexity laboratory under CLIA '88. The FDA has determined that such clearance or approval is not necessary. ??This test is used for clinical purposes. ??It should not be regarded as investigational or for research. ??Nevertheless, federal rules concerning the medical use of analyte specific reagents require that the following disclaimer be attached to the report: This test was developed and its performance characteristics determined by the Surgical Pathology Department [facility]. ??It has not been cleared or approved by the U. S. Food and Drug Administration. Note for decalcified specimens: This assay has not been validated on decalcified tissues. Results should be interpreted with caution given the possibility of false negativity on decalcified specimens us Lydia Rojas MD LAB PATHOLOGY ORDERABL ES Final Result PATHOLOGY [address] [place] [address] documented in this encounter Visit Diagnoses Diagnosis Hypertrophy of both inferior nasal turbinates- Primary Chronic sinusitis, unspecified location documented in this encounter Admitting Diagnoses Diagnosis Chronic sinusitis Unspecified sinusitis (chronic) Hypertrophy of both inferior nasal turbinates documented in this encounter Administered Medications Inactive Administered Medications - up to 3 most recent administrations Medication Order MAR Action Action Date Dose Rate Site acetaminophen (TYLENOL) tablet 1,000 mg 1,000 mg, oral, Once, On Tue08/07/24 at 1045, For 1 dose, Pre-Op, Indications: Pre-Emptive AnalgesiaIndications:Pre-Emptive Analgesia Given 08/07/2024 10:27 AM CDT 1,000 mg HYDROcodone-acetaminophen (NORCO) 5-325 mg per tablet 1 tablet 1 tablet, oral, Once as needed, other, pain management for discharge, Starting on Tue08/07/24 at 1739, For 1 dose, Phase I, Indications: PainIndications:Pain Given 08/07/2024 5:42 PM CDT 1 tablet HYDROmorphone (PF) (DILAUDID) injection 0.2 mg 0.2 mg, intravenous, Administer over 2 Minutes, Every 10 min PRN, 1st line for pain, Starting on Tue08/07/24 at 1715, Phase I, Switch to 2nd line analgesic order if pain is uncontrolled or increasing after ONE dose. Notify Anesthesiologist if total PACU dose reaches 2 mg and pain score 5/10 or more., Indications: PainIndications:Pain Given 08/07/2024 5:17 PM CDT 0.2 mg Lactated Ringer's (LR) infusion 30 mL/hr, intravenous, Continuous, Starting on Tue08/07/24 at 1045, Pre-Op New Bag 08/07/2024 4:42 PM CDT New Bag 08/07/2024 12:57 PM CDT documented in this encounter Historical Medications * This list may reflect changes made after this encounter. formoterol (PERFOROMIST) 20 mcg/2 mL nebulizer solution Take 2 mL (20 mcg total) by nebulization daily 07/04/2024 budesonide (PULMICORT) 0.5 mg/2 mL nebulizer solution Take 2 mL (0.5 mg total) by nebulization daily 07/20/2024 added in this encounter Active and Recently Administered Medications Times are shown in CDT. Scheduled Medication Order 08/05/2024 08/06/2024 08/07/2024 acetaminophen (TYLENOL) tablet 1,000 mg (COMPLETED) 1,000 mg, oral, Once, On Tue08/07/24 at 1045, For 1 dose, Pre-Op, Indications: Pre-Emptive Analgesia 1027 (Given - Provid er: Aspen Ferreira RN) Continuous Medication Order 08/05/2024 08/06/2024 08/07/2024 Lactated Ringer's (LR) infusion 30 mL/hr, intravenous, Continuous, Starting on Tue08/07/24 at 1045, Pre-Op 1257 (New Bag - Prov ider: Tamra Norman CRNA)1642 (New Bag - Provider: Tamra Norman CRNA)2303 (Due: Stopped) PRN Medication Order 08/05/2024 08/06/2024 08/07/2024 HYDROcodone-acetaminophen (NORCO) 5-325 mg per tablet 1 tablet (COMPLETED) 1 tablet, oral, Once as needed, other, pain management for discharge, Starting on Tue08/07/24 at 1739, For 1 dose, Phase I, Indications: Pain 1742 (Given - Provid er: Lydia Donis RN) HYDROmorphone (PF) (DILAUDID) injection 0.2 mg (CANCELED) 0.2 mg, intravenous, Administer over 2 Minutes, Every 10 min PRN, 1st line for pain, Starting on Tue08/07/24 at 1715, Phase I, Switch to 2nd line analgesic order if pain is uncontrolled or increasing after ONE dose. Notify Anesthesiologist if total PACU dose reaches 2 mg and pain score 5/10 or more., Indications: Pain 1717 (Given - Provid er: Lydia Donis RN) oxymetazoline (AFRIN) 0.05 % nasal spray (CANCELED) As needed, Starting on Tue08/07/24 at 1341, Intra-Op 1341 (Given - Provid er: Lydia Rojas MD - Comment: Cottonoids saturated in Afrin placed topically on surgical site) sodium chloride 0.9% infusion (COMPLETED) Continuous PRN, Starting on Tue08/07/24 at 1343, Intra-Op 1343 (New Bag - Prov ider: Lydia Rojas MD - Comment: Used with endoscrub and endoscopic shaver) sodium chloride 0.9% irrigation (CANCELED) As needed, Starting on Tue08/07/24 at 1313, Intra-Op 1313 (Given - Provid er: Lydia Rojas MD - Comment: In basin on sterile field) documented in this encounter Orders Medications Ordered That Krunal ht Not Have Been Administered Count Last Ordered Date First Ordered Date diphenhydrAMINE (BENADRYL) 5 0 mg/mL injection 12.5 mg 1 08/07/2024 HYDROmorphone (PF) (DILAUDID ) 0.2 mg/mL injection - ADS Override Pull 1 08/07/2024 HYDROmorphone (PF) (DILAUDID ) injection 0.4 mg 1 08/07/2024 ipratropium-albuteroL (DUO-N EB) 0.5-2.5 mg/3 mL nebulizer solution 3 mL 1 08/07/2024 Lactated Ringer's (LR) infusion 1 4 lidocaine (XYLOCAINE) 10 mg/ mL (1 %) injection 2-10 mg 1 08/07/2024 naloxone (NARCAN) 0.4 mg/mL injection 0.04-0.4 mg 1 08/07/2024 oxymetazoline (AFRIN) 0.05 % nasal spray 1 08/07/2024 prochlorperazine (COMPAZINE) injection 5 mg 1 08/07/2024 sodium chloride 0.9% flush 0.5-20 mL 2 07/29 sodium chloride 0.9% infusion 1 08/07/2024 sodium chloride 0.9% irrigation 1 4 Discharge Count Last Ordered Date First Orde red Date DISCHARGE PATIENT 1 08/07/2024 documented in this encounter Care Teams Table Assembler Relationship Specialty Start Date End Date Torito Gonzalez MD [address] [place] [address] PCP - General 02/25/17 [place] [address] [place] [address] Consulting Physician Pulmonary Disease 01/30/24 documented as of this encounter
--- OUTSIDE RECORDS SUMMARY | 2024-11-18 11:53 | XMS_ITS | Encounter Summary ---
Author Organization [facility] Healthcare Address [address] [place] [address] Care Team Providers Care High Court Justice Name Role Phone Torito Gonzalez MD Primary Care Provider [phone] Sol Lincoln MD Unavailable [phone] Reason for Visit * Reason Comments Injections * Episode Based Medications (Routine) - Closed Specialty Diagnoses / Procedures Referred By Contconcepcion t Referred To Contact Diagnoses Age-related osteoporosis without current pathological fracture Alhaji Payan MD [address] [place] [address] Phone: tel: fax: [address] [address] Phone: tel: Referral ID Status Reason Start Date Expiration Date Visits Re quested Visits Authorized [id number] Closed 06/29/2024 08/22/2024 1 1 Encounter Details Date Type Department Care Team (Latest Contact Info) Description 07/10/2024 11:30 AM CDT Clinical Support [address] [address] Age-related osteoporosis without current pathological fracture (Primary Dx) Social History Tobacco Use Types [...] often do you attend chur ch or baptist services? 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 Payan for a Prolia injection. The patients vital signs are stable and has no questions or concerns. Labs were done prior and reviewed, ca level within the parameters. The patient confirmed taking Vit. D and Ca supplements, stated no dental issues. The patients Prolia was administered in the left upper arm without complaint. The patient was then given discharge instructions with written information stating when she will be due next and that we will need a new order to schedule her next dose. documented in this encounter Plan of Treatment Not on file documented as of this encounter Visit Diagnoses Diagnosis Age-related osteoporosis without current pathological fracture- Primary documented in this encounter Administered Medications Inactive Administered Medications - up to 3 most recent administrations Medication Order MAR Action Action Date Dose Rate Site denosumab (PROLIA) subcutaneous syringe 60 mg 60 mg, subcutaneous, Once, On Tue07/10/24 at 1200, For 1 dose, Calcium level should be greater than 8 mg/dl. Injection to be given in the upper arm, thigh or abdomen. Refrigerate. Allow to stand 15 to 30 mins prior to useIndications:Age-related osteoporosis without current pathological fracture Given 07/10/2024 11:21 AM CDT 60 mg Left Upper Arm documented in this encounter Orders Medications Ordered That Krunal ht Not Have Been Administered Count Last Ordered Date First Ordered Date denosumab (PROLIA) subcutane ous syringe 60 mg 1 07/10/2024 documented in this encounter Care Teams High Court Justice Relationship Specialty Start Date End Date Torito Gonzalez MD [address] [facility] [address] PCP - General 02/25/17 [place] [address] [address] Consulting Physician Pulmonary Disease 01/30/24 documented as of this encounter
--- OUTSIDE RECORDS SUMMARY | 2024-11-18 11:53 | XMS_ITS | Encounter Summary ---
Author Organization [facility] Healthcare Address [address] [place] [address] Care Team Providers Care Rating Officer Name Role Phone Torito Gonzalez MD Primary Care Provider [phone] Sol Lincoln MD Unavailable [phone] Encounter Details Date Type Department Care Team (Late st Contact Info) Description 05/30/2024 Telephone [employer] [address] [facility] [address] [place] [address] Leticia Montes De Oca RN Social History Tobacco Use Types Packs/Day [...] often do you attend chur ch or christianity services? More than 4 times per year 01/18/2023 Do you belong to any clubs o r organizations such as methodist groups, unions, fraternal or athletic groups, or [...] or slept in a snf (including now)? 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 Gender Identity Not on file Sexual Orientation Not on file documented as of this encounter Miscellaneous Notes * Telephone Encounter - Leticia Montes De Oca, RN - 05/30/2024 10:07 AM CDT Error documented in this encounter Plan of Treatment Not on file documented as of this encounter Visit Diagnoses Not on filedocumented in this encounter Care Teams Rating Officer Relationship Specialty Start Date End Date Torito Gonzalez MD [address] [place] [address] PCP - General 02/25/17 [place] [id number] [address] Consulting Physician Pulmonary Disease 01/30/24 documented as of this encounter
--- OUTSIDE RECORDS SUMMARY | 2024-11-18 11:53 | XMS_ITS | Encounter Summary ---
Author Organization [facility] Healthcare Address [address] [place] [address] Care Team Providers Care Anthropometrist Name Role Phone Torito Gonzalez MD Primary Care Provider [phone] Sol Lincoln MD Unavailable [phone] Encounter Details Date Type Department Care Team (Late st Contact Info) Description 06/19/2024 Telephone [facility] [address] [facility] [address] [place] [address] Alhaji Payan MD [address] [place] [address] [address] [place] [address] Social History Tobacco Use Types Packs/Day Years [...] often do you attend chur ch or episcopal services? More than 4 times per year 01/18/2023 Do you belong to any clubs o r organizations such as congregation groups, unions, fraternal or athletic groups, or [...] place to sleep or slept in a residential (including now)? 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 Message left on machine with callback number. documented in this encounter Plan of Treatment Not on file documented as of this encounter Visit Diagnoses Not on filedocumented in this encounter Care Teams Anthropometrist Relationship Specialty Start Date End Date Torito Gonzalez MD [address] [place] [address] PCP - General 02/25/17 [place] [address] [address] Consulting Physician Pulmonary Disease 01/30/24 documented as of this encounter
--- OUTSIDE RECORDS SUMMARY | 2024-11-18 11:53 | XMS_ITS | Encounter Summary ---
Author Organization [facility] Address [address] [place] [address] Phone Care Team Providers Care Rn Cardiovascular Icu Name Role Phone Torito Gonzalez MD Primary Care Provider [phone]- [phone] Sol Lincoln MD Unavailable [phone] Encounter Details Date Type Department Care Team (Late st Contact Info) Description 08/08/2024 Orders Only [facility]) - [facility] ENT [address] [facility] [address] [place] [address] [place] [address] [facility] [address] [place] [address] Social History Tobacco Use Types [...] How often do you attend chur or buddhism services? More than 4 times per year 01/18/2023 Do you belong to any clubs o r organizations such as buddhist groups, unions, fraternal or athletic groups, or [...] place to sleep or slept in a fdc (including now)? No 01/18/2023 Personal Safety Answer Date Recorded Have you ever been in or are you currently in a harmful physical or emotional relationship or is someone making you feel afraid or unsafe? 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 Sending to [facility] per patient request. documented in this encounter Plan of Treatment Not on file documented as of this encounter Visit Diagnoses Not on filedocumented in this encounter Discontinued Medications Medication Sig Discontinue Reason Start Date End Da te HYDROcodone-acetaminophe n (NORCO) 5-325 mg per tabletIndications:Pain Take 1 tablet by mouth every 6 (six) hours as needed for pain Duplicate order 08/07/2024 08/08/2024 documented as of this encounter Care Teams Rn Cardiovascular Icu Relationship Specialty Start Date End Date Torito Gonzalez MD [address] [place] [address] PCP - General 02/25/17 [place] [address] [address] Consulting Physician Pulmonary Disease 01/30/24 documented as of this encounter
--- OUTSIDE RECORDS SUMMARY | 2024-11-18 11:53 | XMS_ITS | Encounter Summary ---
Author Organization [facility] Address [address] [place] [address] Care Team Providers Care Client Relationship Executive Name Role Phone Torito Gonzalez MD Primary Care Provider [phone] Sol Lincoln MD Unavailable Encounter Details Date Type Department Care Team (Late st Contact Info) Description 06/27/2024 7:50 AM CDT Lab [address] [address] Osteopenia, unspecified location Social History Tobacco Use Types Packs/Day Years [...] often do you attend chur ch or adventist services? More than 4 times per year [...] or slept in a prison (including now)? 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 73 m2 Comment: Interpretive Data Reference Interval Normal ?>/= 90 mL/min/1.73m2 Mildly decreased* ? 60 - 89 mL/min/1.73m2 Mildly to moderately decreased ?45 - 59 mL/min/1.73m2 Moderately to severely decreased ??30 - 44 mL/min/1.73m2 Severely decreased ?15 - 29 mL/min/1.73m2 Kidney Failure ?< 15 ??mL/min/1.73m2 *Relative to young adult level Estimated glomerular filtration rate is determined by the 2020 CKD-EPI equation recommended by the National Kidney Foundation (A Unifying Approach to GFR Estimation: Recommendations of the NKF-ASK Task Force on Reassessing the Inclusion of Race in Diagnosing Kidney Disease, JASN 2020). The CKD-EPI equation should not be used for patients with unstable renal function and has not been validated in children and those over 70. Current interpretive data was last reviewed 2021. Blood 06/27/2024 7:58 AM CDT 06/27/2024 8:07 AM CDT us Alhaji Payan MD LAB BLOOD ORDERABLES Final Result [facility] 1 [facility] Department of Laboratories [place], [place] [id number] * Comprehensive metabolic panel (06/27/2024 7:58 AM CDT) Sodium 140 135 - 145 mmol/L Potassium, pl 4.2 3.3 - 4.9 mmol/L [facility] ([facility]) Chloride 105 97 - 110 mmol/L [facility] ([facility]) CO2 26 22 - 32 mmol/L [facility] ([facility]) Anion gap 9 2 - 15 mmol/L [facility] ([facility]) BUN 17 6 - 25 mg/dL [facility] ([facility]) Creatinine 0.78 0.60 - 1.10 mg/dL [facility] ([facility]) Glucose 83 70 - 199 mg/dL [facility] ([facility]) Comment: Interpretive Data Fasting glucose >/= 126 mg/dl is diagnostic for diabetes. ?? Fasting is defined as no caloric intake for at least 8 hours. Fasting glucose between 100 mg/dl to 125 mg/dl is diagnostic of prediabetes. In a patient with classic symptoms of hyperglycemia or hyperglycemic crisis, a random glucose >/= 200 mg/dl is diagnostic for diabetes. In the absence of unequivocal hyperglycemia, results should be confirmed by repeat testing. The classification and Diagnosis of Diabetes Diabetes Care 202; 46: S19-S40. Current interpretive data was last revised 2022. Calcium 9.0 8.5 - 10.3 mg/dL [facility] ([facility]) Bilirubin, total 0.3 0.1 - 1.2 mg/dL [facility] ([facility]) Protein, pl 6.9 6.5 - 8.5 g/dL [facility] ([facility]) Albumin 4.0 3.5 - 5.0 g/dL [facility] ([facility]) Alk phos 76 40 - 130 Units/L [facility] ([facility]) ALT 18 7 - 45 Units/L [facility] ([facility]) AST 22 10 - 45 Units/L [facility] ([facility]) Blood 06/27/2024 7:58 AM CDT 06/27/2024 8:07 AM CDT us Alhaji Payan MD LAB BLOOD ORDERABLES Final Result [facility] ([facility]) 1 [facility] Department [place] [address] documented in this encounter Visit Diagnoses Diagnosis Osteopenia, unspecified location documented in this encounter Care Teams Client Relationship Executive Relationship Specialty Start Date End Date Torito Gonzalez MD [address] [facility] [place] [address] PCP - General 02/25/17 [place] [address] [address] Consulting Physician Pulmonary Disease 01/30/24 documented as of this encounter
--- OUTSIDE RECORDS SUMMARY | 2024-11-18 11:53 | XMS_ITS | Encounter Summary ---
Author Organization [facility] Address [address] [place] [address] Care Team Providers Care Land Planner Name Role Phone Torito Gonzalez MD Primary Care Provider [phone]- [phone] Sol Lincoln MD Unavailable [phone] Reason for Visit * Auth/Cert (Routine) Specialty Diagnoses / Procedures Referred By Turner ramirez Referred To Contact Diagnoses Chronic sinusitis, unspecified location Hypertrophy of both inferior nasal turbinates Chronic sinusitis, unspecified location [J32.9] Hypertrophy of both inferior nasal turbinates [J34.3] Procedures NV SUBMUCOUS RESCJ INFERIOR TURBINATE PRTL/COMPL NV NSL/SINUS NDSC MAX ANTROST W/RMVL TISS MAX SINUS NV NASAL/SINUS NDSC W/TOTAL ETHOIDECTOMY NV NSL/SINUS NDSC SPHENDT RMVL TISS SPHENOID SINUS NV NASAL/SINUS NDSC W/RMVL TISS FROM FRONTAL SINUS ENDOSCOPIC SINUS SURGERY WITH NAVIGATION (210min) TURBINECTOMY Referral ID Status Reason Start Date Expiration Date Visits Re quested Visits Authorized [id number] 1 1 Encounter Details Date Type Department Care Team (Late st Contact Info) Description 08/07/2024 12:30 PM CDT - 08/07/2024 4:00 PM CDT Surgery [facility] Operating Room [address] [place] [address] [place] [address] [address] ENDOSCOPIC SINUS SURGERY WITH NAVIGATION Surgery Details Date/Time Status Location OR Service Patient Class Case Class Case Type Trauma Case? 08/07/2024 12:30 PM Posted OPERATING ROOM OR Otolaryngology Outpatient Elective Panel 1 Procedure LRB Anes Op Region Wound Class Comments ENDOSCOPIC SINUS SURGERY WITH NAVIGATION Bilateral General Nose Class II - Clean Contaminated BILATERAL INFERIOR TURBINATE REDUCTION Bilateral General Nose Class II - C lean Contaminated ENDOSCOPIC MAXILLARY ANTROSTOMY NAVIGATION - BILATERAL Bilateral General Face Class II - Clean Contaminated ENDOSCOPIC FRONTAL SINUSOTOMY NAVIGATION - BILATERAL Bilateral General Face Class II - Clean Contaminated ENDOSCOPIC SPHENOIDOTOMY NAVIGATION - BILATERAL Bilateral General Face Class II - Clean Contaminated ENDOSCOPIC ETHMOIDECTOMY NAVIGATION - BILATERAL Bilateral General Face Class II - Clean Contaminated Surgeon Surgeon Role Service Panel Lydia Rojas MD Primary Otolaryngolog y 1 Antonio Colindres MD Assisting Minor Proc edures 1 documented in this encounter Social History Tobacco [...] week 01/18/2023 How often do you attend [facility] or catholic services? 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 ? Nasal congestion, fullness, [...] schedule a visit. APPOINTMENTS: ? ENT Tele[employer] ([facility]) Call our office or go to the Emergency Room immediately if you have any of the following: - Any vision problems/changes - Fever over 101.4 - Neck stiffness - Heavy or prolonged bright red bleeding from the nose ? Regular hours: to speak with my nurse, Diane. ? After hours: and ask for the Ear, Nose and Throat (ENT) resident public information officer. FOLLOW UP CALLS You may get a [...] FESS (Functional Endoscopic Sinus Surgery) (Discharge Care) ([place]) * Turbinate Reduction (Discharge Care) ([place]) * General Anesthesia (Discharge Care) ([place]) documented in this encounter Medications at Time [...] unspecified location COPD (chronic obstructive pulmonary disease) ([facility]) Dysphagia GERD (gastroesophageal reflux disease) HX OTHER [...] Alcohol Use: Patient Declined (11/16/2023) Received from [facility], [facility] AUDIT-C Frequency of Alcohol Consumption: Patient [...] * Lydia Rojas MD - Primary * Antonio Colindres MD - Assisting Preoperative Diagnosis: Pre-op [...] contents SURGICAL PATHOLOGY Lydia Rojas MD 08/07/2024 1638 Indications for Surgery: Gabbie Dsouza is a [...] The turbinate was then outfractured using a Mcfarland elevator. Attention was then turned to the [...] The turbinate was then outfractured using a Mcfarland elevator. Next, the bilateral nasal cavities were [...] that you and your doctor have chosen [facility] for your surgery. We hope that the following information will help make your visit a pleasant one. Surgery Date: 08/07/2024 Arrive at 10:30 AM. [facility] Center [facility] (look for sign reading ???EMERGENCY - SURGERY CENTER?? ) [address] [place] [address] Directions: [address] driving down [facility] towards [facility], look for the sign that says Emergency. [...] is not recommended by your physician). Fish Oil/[place] 3, Co Q 10, Cod Liver Oil, [...] insurance cards, and medication list (including all vniq-bbp-rdufjrg medications) with you. Prescriptions can be filled [...] results best viewed via link to PDF [facility] Department of Pathology [address] [place] [address] Note to Patients: This report may contain [...] Final Report Patient Name: ??GABBIE DSOUZA Address: ??[facility], ??[place], [place] ??[address]- Gender: ??F : ??1955 (Age: 69) Service: ??Surgery Location: ??[facility] OR Hospital #: ??[id number] Patient Type: ??[facility] SDS Accession # ?[id number] Taken: ??08/07/2024 Received: ??08/08/2024 Accessioned: ??08/08/2024 Reported: [...] ??Represented in 1 cassette. Karen Casas R.N., P.A./Renee Le M.D. REPORT IMAGES AND SCANNED DOCUMENTS, IF INCLUDED, ONLY VIEWABLE IN PDF VERSION OF REPORT The performance characteristics of some immunohistochemical stains, fluorescence in-situ hybridization tests and immunophenotyping by flow cytometry cited in this report (if any) were determined by the Surgical Pathology Department at [facility] as part of an ongoing food quality tester program and in compliance with federally mandated [...] characteristics determined by the Surgical Pathology Department [facility]. ??It has not been cleared or approved by the U. S. Food and Drug Administration. Note for decalcified specimens: This assay has not been validated on decalcified tissues. Results should be interpreted with caution given the possibility of false negativity on decalcified specimens Lydia Rojas MD LAB PATHOLOGY ORDERABL ES Final Result PATHOLOGY [address] [place] [address] documented in this encounter Visit Diagnoses Diagnosis Hypertrophy of both inferior nasal turbinates- Primary Chronic sinusitis, unspecified location Chronic sinusitis, unspecified location Hypertrophy of both inferior nasal turbinates documented in this encounter Admitting Diagnoses Diagnosis [...] CDT New Bag 08/07/2024 12:57 PM CDT oxymetazoline (AFRIN) 0.05 % nasal spray As needed, Starting on Tue08/07/24 at 1341, Intra-Op Given 08/07/2024 1:41 PM CDT 1 Application Surgical Site sodium chloride 0.9% infusion Continuous PRN, Starting on Tue08/07/24 at 1343, Intra-Op New Bag 08/07/2024 1:43 PM CDT 500 mL/hr 500 mL/hr Surgical Site sodium chloride 0.9% irrigation As needed, Starting on Tue08/07/24 at 1313, Intra-Op Given 08/07/2024 1:13 PM CDT 2,000 mL Surgical Site documented in this encounter Historical Medications * [...] 1 08/07/2024 Lactated Ringer's (LR) infusion 1 lidocaine (XYLOCAINE) 10 mg/ mL (1 %) injection 2-10 mg 1 08/07/2024 naloxone (NARCAN) 0.4 mg/mL injection 0.04-0.4 mg 1 08/07/2024 prochlorperazine (COMPAZINE) injection 5 mg 1 08/07/2024 sodium chloride 0.9% flush 0.5-20 mL 2 07/29 Discharge Count Last Ordered Date First Orde red Date DISCHARGE PATIENT 1 08/07/2024 documented in this encounter Care Teams Land Planner Relationship Specialty Start Date End Date Torito Gonzalez MD [address] [place] [address] PCP - General 02/25/17 [place] [address] [address] Consulting Physician Pulmonary Disease 01/30/24 documented as of this encounter
--- OUTSIDE RECORDS SUMMARY | 2024-11-18 11:53 | XMS_ITS | Encounter Summary ---
Author Organization [facility] Healthcare Address [address] [place] [address] Care Team Providers Care Cotton Feeder Name Role Phone Torito Gonzalez MD Primary Care Provider [phone]- [phone] Sol Lincoln MD Unavailable [phone] Reason for Visit * Reason Onset Date Comments Prolia 06/14/2024 Encounter Details Date Type Department Care Team ([facility] st Contact Info) Description 06/14/2024 Telephone [employer] [address] [place] [address] [address], [place] [address] Celena Quiroz MA Prolia Social History Tobacco Use Types Packs/Day [...] often do you attend chur ch or buddhism services? More than 4 times per year 01/18/2023 Do you belong to any clubs o r organizations such as jehovah's witness groups, unions, fraternal or athletic groups, or [...] place to sleep or slept in a usp (including now)? 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 Gender Identity Not on file Sexual Orientation Not on file documented as of this encounter Ordered Prescriptions Prescription Sig Dispense Quantity Refills Last Filled Start Date End Date denosumab (PROLIA) 60 mg/mL syringe Inject 1 mL (60 mg total) under the skin once for 1 dose 1 mL 06/14/2024 07/19/2024 documented in this encounter Miscellaneous Notes * Addendum Note - Ramon Montes De Oca RN - 06/25/2024 2:24 PM CDTAddended by: RAMON MONTES DE OCA on: 06/25/2024 02:24 PM Modules accepted: Orders * Telephone Encounter - Ramon Montes De Oca RN - 06/25/2024 2:23 PM CDT CMP order placed prior to Prolia injection. * Telephone Encounter - Celena Quiroz MA - 06/14/2024 3:18 PM CDT Summary of Benefits and Prolia prescription faxed to [facility] at [phone]. Will await appt date. documented in this encounter Plan of Treatment Not on file documented as of this encounter Results * Comprehensive metabolic panel (06/27/2024 7:58 AM [...] classification and Diagnosis of Diabetes Diabetes Care 2021; 46: S19-S40. Current interpretive data was last [...] 7:58 AM CDT 06/27/2024 8:07 AM CDT Alhaji Payan MD LAB BLOOD ORDERABLES Final Result [facility] ([facility]) 1 [facility] Department [place] [address] documented in this encounter Visit Diagnoses Diagnosis Osteopenia, unspecified location- Primary documented in this encounter Discontinued Medications Medication Sig Discontinue Reason Start Date End Da te denosumab (PROLIA) 60 mg/mL syringe Inject 1 mL (60 mg total) under the skin once for 1 dose Reorder 12/27/2023 06/14/2024 documented as of this encounter Care Teams Cotton Feeder Relationship Specialty Start Date End Date Torito Gonzalez MD [address] [place] [address] PCP - General 02/25/17 [place] [address] [place] [address] Consulting Physician Pulmonary Disease 01/30/24 documented as of this encounter
--- OUTSIDE RECORDS SUMMARY | 2024-11-18 11:53 | XMS_ITS | Encounter Summary ---
Author Organization [facility] Healthcare Address [address] [place] [address] Care Team Providers Care Carpenter Name Role Phone Torito Gonzalez MD Primary Care Provider [phone] Reason for Visit * Reason Comments Injections * Episode Based Medications (Routine) - Closed Specialty Diagnoses / Procedures Referred By Contac t Referred To Contact Diagnoses Age-related osteoporosis without current pathological fracture Alhaji Payan MD [address] [place] [address] Phone: tel: fax: [address] [place] [address] Phone: tel: Referral ID Status Reason Start Date Expiration Date Visits Re quested Visits Authorized [id number] Closed 12/27/2023 01/25/2025 1 1 Encounter Details Date Type Department Care Team (Latest Contact Info) Description 01/10/2024 9:30 AM WASTEWATER TREATMENT PLANT SUPERVISOR Clinical Support [address] [address] Age-related osteoporosis without current pathological fracture (Primary [...] often do you attend chur ch or mormon services? 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 Gender Identity Not on file Sexual Orientation Not on file documented as of this encounter Last Filed Vital Signs Vital Sign Reading Time Taken Comments Blood Pressure 142/63 01/10/2024 9:25 AM WASTEWATER TREATMENT PLANT SUPERVISOR Pulse 69 01/10/2024 9:25 AM WASTEWATER TREATMENT PLANT SUPERVISOR Temperature 36.4 ??C (97.5 ??F) 01/10/2024 9:25 AM CS T Respiratory Rate 20 01/10/2024 9:25 AM WASTEWATER TREATMENT PLANT SUPERVISOR Oxygen Saturation 98% 01/10/2024 9:25 AM WASTEWATER TREATMENT PLANT SUPERVISOR Inhaled Oxygen Concentration - - Weight - - Height - - Body Mass Index - - documented in this encounter Nursing Notes * Prerna Berg RN - 01/10/2024 9:30 AM CST Patient presented to the infusion center today for an injection of Prolia. Vitals stable. Last calcium level was 9.1. Prolia given in the upper left arm. Patient tolerated well. Patient denies need for AVS. Patient had no further questions and left in stable condition. EWATER TREATMENT PLANT SUPERVISOR EWATER TREATMENT PLANT SUPERVISOR documented in this encounter Plan of Treatment Not on file documented as of this encounter Visit Diagnoses Diagnosis Age-related osteoporosis without current pathological fracture- Primary documented in this encounter Administered Medications Inactive Administered Medications - up to 3 most recent administrations Medication Order MAR Action Action Date Dose Rate Site denosumab (PROLIA) subcutaneous syringe 60 mg 60 mg, subcutaneous, Once, On Tue01/10/24 at 1000, For 1 dose, Calcium level should be greater than 8 mg/dl. Injection to be given in the upper arm, thigh or abdomen. Refrigerate. Allow to stand 15 to 30 mins prior to useIndications:Age-related osteoporosis without current pathological fracture Given 01/10/2024 9:27 AM WASTEWATER TREATMENT PLANT SUPERVISOR 60 mg Left Upper Arm documented in this encounter Orders Medications Ordered That Krunal ht Not Have Been Administered Count Last Ordered Date First Ordered Date denosumab (PROLIA) subcutane ous syringe 60 mg 1 01/10/2024 documented in this encounter Care Teams Carpenter Relationship Specialty Start Date End Date Torito Gonzalez MD [address] [place] [address] PCP - General 02/25/17 documented as of this encounter
--- OUTSIDE RECORDS SUMMARY | 2024-11-18 11:53 | XMS_ITS | Encounter Summary ---
Author Organization [facility] Address [address] [place] [address] Phone Care Team Providers Care Television Schedule Coordinator Name Role Phone Torito Gonzalez MD Primary Care Provider [phone]- [phone] Sol Lincoln MD Unavailable [phone] Reason for Referral * Procedure (Routine) - Pending Review Specialty Diagnoses / Procedures Referred By Turner ramirez Referred To Contact Diagnoses Chronic pansinusitis [place] [id number] [address] [facility] [address] [place] [address] Phone: tel: fax: [facility] (All Locations) Referral ID Status Reason Start Date Expiration Date V isits Requested Visits Authorized [id number] Pending Review 05/14/2024 06/13/2025 1 1 Encounter Details Date Type Department Care Team (Late st Contact Info) Description 05/14/2024 Orders Only [facility]) - [facility] [address] [facility] Medical Office Building [address] [place] [address] [place] [address] [address] [facility] [address] [place], [place] [id number] Chronic pansinusitis (Primary Dx) Social History Tobacco Use Types [...] place to sleep or slept in a penitentiary (including now)? No 01/18/2023 Personal Safety Answer Date Recorded Getting School Help Needed Not on file Comments No Sex and Gender Information Value Date Recorded Sex Assigned at Not on file Legal Sex Female 1:[address]PERVISOR Gender Identity Not on file Sexual Orientation Not on file documented as of this encounter Plan of Treatment Scheduled Orders Name Type Priority Associated Diagnoses Orde r Schedule Debridement Procedures Routine Chronic pansinusitis 1 Occurrences starting 05/14/2024 until 05/14/2025 documented as of this encounter Visit Diagnoses Diagnosis Chronic pansinusitis- Primary Other chronic sinusitis documented in this encounter Care Teams Television Schedule Coordinator Relationship Specialty Start Date End Date Torito Gonzalez MD [address] [place] [address] PCP - General 02/25/17 [place] [address] [address] Consulting Physician Pulmonary Disease 01/30/24 documented as of this encounter
--- OUTSIDE RECORDS SUMMARY | 2024-11-18 11:53 | XMS_ITS | Encounter Summary ---
Author Organization [facility] Healthcare Address [address] [place] [address] Care Team Providers Care Pyridine Operator Name Role Phone Torito Gonzalez MD Primary Care Provider [phone]- [phone] Sol Lincoln MD Unavailable [phone] Encounter Details Date Type Department Care Team (Late st Contact Info) Description 06/04/2024 2:15 PM CDT Office Visit [place] [employer] Dis[employer] [address] [place] [address] Jacob Espitia MD [address] [place] [address] Coronary artery disease, unspecified vessel or lesion type, unspecified whether angina present, unspecified whether [facility] or transplanted heart (Primary Dx); Primary hypertension Social History Tobacco Use Types Packs/Day Years [...] How often do you attend chur or scientologist services? More than 4 times per year 01/18/2023 Do you belong to any clubs o r organizations such as confucianism groups, unions, fraternal or athletic groups, or [...] or slept in a half-way (including now)? 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 Gender Identity Not on file Sexual Orientation Not on file documented as of this encounter Last Filed Vital Signs Vital Sign Reading Time Taken Comments Blood Pressure 121/75 06/04/2024 1:43 PM CDT Pulse 61 06/04/2024 1:43 PM CDT Temperature - - Respiratory Rate 16 06/04/2024 1:43 PM CDT Oxygen Saturation 96% 06/04/2024 1:43 PM CDT Inhaled Oxygen Concentration - - Weight 65.3 kg (144 lb) 06/04/2024 1:43 PM CDT Height - - Body Mass Index 23.96 08/23/2023 9:16 AM CDT documented in this encounter Ordered Prescriptions Prescription Sig Dispense Quantity Refills Last Filled Start Date End Date amLODIPine (NORVASC) 5 mg tablet Take 1 tablet (5 mg total) by mouth daily 90 tablet 3 06/04/2024 documented in this encounter Progress Notes * Jacob Espitia MD - 06/04/2024 2:15 PM CDT Cardiology note Reason for Office Visit: No chief complaint on file. History of Present Illness: Gabbie Chris is a 68 y.o. female seen in follow up for palpitations and probable coronary spasm. She was hospitalized with chest pain, elevated troponin Cardiac Cath 01/17/23: Impression: 1. Normal left ventricular ejection fraction with a focal area of anterolateral akinesis. 2. Insignificant coronary artery disease Recommendations: The patient has no fixed coronary stenosis explain her cardiac enzyme elevation orher wall motion abnormality. These findings may represent a focal area of takotsubo cardiomyopathy.Alternatively there may have been an episode of coronary spasm to this region which has since been relieved. I would continue aspirin 81 mg daily. I would continue amlodipine for her coronary spasm. I would add metoprolol. She is doing well with no chest pain or shortness of breath. She has cough and sinusitus. S/P Sinussurgery. She had Covid pneumonia with recurrent hypoxemia. 08/23/23: Doing well, No angina, Recovered from Covid pneumonia, off oxygen for months. No angina, No syncope, No CHF. 06/04/24: Doing well. She denies angina syncope or congestive heart failure. Past Medical History: Diagnosis Date Arthritis Cataract 2017 Dysphagia GERD (gastroesophageal reflux disease) HX OTHER MEDICAL 1976 ; Outcome: 7 lb(s) 2 oz Male HX OTHER MEDICAL 1970 ; Outcome: 7 lb(s) 4 oz Female Hypertension Influenza A Pneumonia due to COVID-19 virus 07/2022 Restless leg syndrome Review of systems: Review of Systems All other systems reviewed and are negative. Family and Social history Family History Problem Relation Age of Onset Heart disease Mother Coronary artery disease Mother Coronary artery disease; Hypertension Mother Hypertension; Liver cancer Father Melanoma Father Cancer Father Congenital heart disease Brother Congenital heart disease; Throat cancer Brother HPV Virus Hypertension Brother Diabetes Brother Diabetes mellitus; Heart attack Son 45 Maker No Known Problems Daughter Stroke Maternal Grandmother Alcohol abuse Brother Hypertension Brother Social History Tobacco Use Smoking status: Former Smokeless tobacco: Never Tobacco comments: Smoking History Packs/day: 0.25 Packs Substance and Sexual Activity Drug use: No Sexual activity: Not Currently Partners: Male Alcohol Use: Patient Declined (11/16/2023) [facility] AUDIT-C Frequency of Alcohol Consumption: Patient declined Average Number of Drinks: Patient declined Frequency of Binge Drinking: Patient declined Allergies Allergen Reactions Latex Rash Amoxicillin Stomach upset Doxycycline Other (See comments) Severe Back Pain Levofloxacin Palpitations Medications: Current Outpatient Medications Medication Sig Dispense Refill albuterol HFA (PROVENTIL HFA,VENTOLIN HFA,PROAIR HFA) 90 mcg/actuation inhaler albuterol sulfate HFA 90 mcg/actuation aerosol inhaler INHALE 1 TO 2 PUFFS BY MOUTH EVERY 6 HOURS NEEDED FOR WHEEZING amLODIPine (NORVASC) 5 mg tablet Take 1 tablet by mouth once daily 90 tablet 3 aspirin 81 mg tablet take 1 tablet by oral route every day 0 0 calcium carbonate (CALCIUM 600 ORAL) Take by mouth denosumab (PROLIA) 60 mg/mL syringe Inject 1 mL (60 mg total) under the skin once for 1 dose 1 mL 0 dupilumab (Dupixent Pen) 200 mg/1.14 mL pen injector Inject under the skin famotidine (PEPCID) 20 mg tablet Take 1 tablet (20 mg total) by mouth daily fluticasone propionate (FLONASE) 50 mcg/actuation nasal spray Administer 1 spray into each nostril 2 (two) times a day as needed for rhinitis 1 each 0 ipratropium-albuteroL (DUO-NEB) 0.5-2.5 mg/3 mL nebulizer solution Take by nebulization every 6 (six) hours No current facility-administered medications for this visit. Vital Signs: Vitals BP 121/75 (BP Location: Left arm, Patient Position: Sitting) Pulse 61 Resp 16 Wt 65.3 kg (144 lb) SpO2 96% BMI 23.96 kg/m?? Vitals: 06/04/24 1343 BP: 121/75 Pulse: 61 Resp: 16 SpO2: 96% Wt Readings from Last 3 Encounters: 06/04/24 65.3 kg (144 lb) 04/16/24 64.4 kg (142 lb) 08/23/23 59 kg (130 lb) Physical Exam: Physical Exam General appearance: appears stated age and cooperative Head: Normocephalic, without obvious abnormality, atraumatic Eyes: conjunctivae/corneas clear. PERRL, anicteric Neck: no adenopathy, no carotid bruit, no JVD, supple, symmetrical, trachea midline, and thyroid not enlarged, symmetric, no tenderness/mass/nodules Lungs: diminished breath sounds all lobes and prolonged expiratory phase without wheezing Heart: regular rate and rhythm, S1, S2 normal, no murmur, click, rub or gallop Abdomen: soft, non-tender; bowel sounds normal; no masses, no organomegaly Extremities: no edema, redness or tenderness in the calves or thighs Pulses: 2+ and symmetric Skin: Skin color, texture, turgor normal. No rashes or lesions Neurologic: Alert and oriented x4, non-focal Labs: No lab exists for component: KPLASMA No lab exists for component: LABALBU Lab Results Component Value Date CHOL 195 01/16/2023 TRIG 105 01/16/2023 HDL 67 01/16/2023 LDL 110 05/21/2015 No results found for: TSH , T3FREE , FREET4 Testing: No results found. No results found for this or any previous visit.] CARDIOGRAPHICS: ECG: Sinus rhythm, poor R-wave progression can not exclude old anteroseptal AK. unchanged from 01/16/2023 Impression and Plan: Diagnoses and all orders for this visit: Coronary artery disease, unspecified vessel or lesion type, unspecified whether angina present, unspecified whether [facility] ge[place] or transplanted heart (Primary) Assessment & Plan: Asymptomatic. Continue aspirin 81 mg daily. Orders: - ECG 12 lead Primary hypertension Assessment & Plan: Well controlled with amlodipine. No changes recommended. Other orders - amLODIPine (NORVASC) 5 mg tablet; Take 1 tablet (5 mg total) by mouth daily DICTATION DISCLAIMER: This note is transcribed using the [employer] direct voice recognition system without human longshore equipment operator. In an effort to expedite patient care, this note has not been adjusted for typographical, grammatical, and syntax by a trained medical claims processor. Portions of this note have been copied from the medical record, but edited appropriately to accurately reflect the patient's current clinical state. Thank you for the consult. We will be happy to follow in this patient's care. MORELIA Claire@2:20 PM Cc:Torito Gonzalez MD documented in this encounter Miscellaneous Notes * Assessment & Plan Note - Jacob Espitia MD - 06/04/2024 2:20 PM CDT Associated Problem(s): Hypertension Well controlled with amlodipine. No changes recommended. * Assessment & Plan Note - Jacob Espitia MD - 06/04/2024 2:19 PM CDT Associated Problem(s): CAD (coronary artery disease) Asymptomatic. Continue aspirin 81 mg daily. documented in this encounter Plan of Treatment Not on file documented as of this encounter Procedures Procedure Name Priority Date/Time Associated Diagnosis Comments ECG 12-LEAD Routine 06/04/2024 1:43 PM CDT Coronary artery disease, unspecified vessel or lesion type, unspecified whether angina present, unspecified whether [facility] or transplanted heart documented in this encounter Results * ECG 12 lead (06/04/2024 1:43 PM CDT) Jacob Espitia MD ECG ORDERABLES Final Result documented in this encounter Visit Diagnoses Diagnosis Coronary artery disease, unspecified vessel or lesion type, unspecified whether angina present, unspecified whether [facility] ge[place] or transplanted heart- Primary Primary hypertension Unspecified essential hypertension documented in this encounter Discontinued Medications Medication Sig Discontinue Reason Start Date End Da te amLODIPine (NORVASC) 5 mg tablet Take 1 tablet by mouth once daily Reorder 06/27/2023 06/04/2024 documented as of this encounter Care Teams Pyridine Operator Relationship Specialty Start Date End Date Torito Gonzalez MD [address] [place] [address] PCP - General 02/25/17 [place] [id number] [address] Consulting Physician Pulmonary Disease 01/30/24 documented as of this encounter
--- OUTSIDE RECORDS SUMMARY | 2024-11-18 11:54 | XMS_ITS | Encounter Summary ---
Author Organization [facility] Healthcare Address [address] [place] [address] Care Team Providers Care Bread Dumper Name Role Phone Torito Gonzalez MD Primary Care Provider [phone] Encounter Details Date Type Department Care Team (Late st Contact Info) Description 12/27/2023 Telephone [facility] [address] [facility] [address] [place] [address] Alhaji Payan MD [address] [place] [address] [address] [place] [address] Social History Tobacco Use Types Packs/Day Years [...] often do you attend chur ch or moravian services? 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 Patient confirmed availability and was scheduled.Patient denied need for directions and confirmed she had no dental issues and was currently taking calcium supplements. Patient had no further questions at this time. ER CARRIER OPERATOR documented in this encounter Plan of Treatment Not on file documented as of this encounter Visit Diagnoses Not on filedocumented in this encounter Care Teams Bread Dumper Relationship Specialty Start Date End Date Torito Gonzalez MD [address] [place] [address] PCP - General 02/25/17 documented as of this encounter
--- OUTSIDE RECORDS SUMMARY | 2024-11-18 11:54 | XMS_ITS | Encounter Summary ---
Author Organization [facility] Address [address] [facility] [address] [place] [address] Care Team Providers Care Corporate Strategist Name Role Phone Torito Gonzalez MD Primary Care Provider [phone]- [phone] Reason for Visit * Reason Comments Follow-up Encounter Details Date Type Department Care Team (Late st Contact Info) Description 08/23/2023 9:15 AM CDT Office Visit [place] [employer] Repairer [address] [facility] [address] [place] [address] Jacob Espitia MD [address] [place] [address] [address] Prinzmetal's angina (CMS/HCC) (HCC) (Primary Dx); Primary hypertension; Hypercholesterolemia Social History Tobacco Use Types Packs/Day Years [...] often do you attend chur ch or gnosticism services? More than 4 times [...] or slept in a long-term (including now)? 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 Gender Identity Not on file Sexual Orientation Not on file documented as of this encounter Last Filed Vital Signs Vital Sign Reading Time Taken Comments Blood Pressure 130/82 08/23/2023 9:16 AM CDT Pulse 72 08/23/2023 9:16 AM CDT Temperature - - Respiratory Rate 16 08/23/2023 9:16 AM CDT Oxygen Saturation 98% 08/23/2023 9:16 AM CDT Inhaled Oxygen Concentration - - Weight 59 kg (130 lb) 08/23/2023 9:16 AM CDT Height 165.1 cm (5' 5 ) 08/23/2023 9:16 AM CDT Body Mass Index 21.63 08/23/2023 9:16 AM CDT documented in this encounter Progress Notes * Jacob Espitia MD - 08/23/2023 9:15 AM CDT Cardiology note Reason for Office Visit: Chief Complaint Patient presents with Follow-up History of Present Illness: Gabbie Chris is [...] months. No angina, No syncope, No CHF. Past Medical History: Diagnosis Date Dysphagia GERD (gastroesophageal reflux disease) HX OTHER MEDICAL 1976 ; Outcome: 7 lb(s) 2 oz Male HX OTHER MEDICAL 1970 ; Outcome: 7 lb(s) 4 oz Female Hypertension Influenza A Pneumonia due to COVID-19 virus 07/2022 Restless leg syndrome Review of systems: ROS Family and Social history Family History Problem Relation Age of Onset Heart disease Mother Coronary artery disease Mother Coronary artery disease; Hypertension Mother Hypertension; Liver cancer Father Melanoma Father Congenital heart disease Brother Congenital heart disease; Throat cancer Brother HPV Virus Hypertension Brother Diabetes Brother Diabetes mellitus; Heart attack Son 45 Maker No Known Problems Daughter Social History Tobacco Use Smoking status: Former Smokeless tobacco: Never Tobacco comments: Smoking History Packs/day: 0.25 Packs Substance and Sexual Activity Drug use: No Sexual activity: Not Currently Alcohol Use: Not At Risk (04/21/2022) AUDIT-C Frequency of Alcohol Consumption: Monthly or less Average Number of Drinks: 1 or 2 Frequency of Binge Drinking: Less than monthly Allergies Allergen Reactions Amoxicillin Stomach upset Medications: Current Outpatient Medications Medication Sig Dispense [...] Take by nebulization every 6 (six) hours metoprolol XL (TOPROL-XL) 25 mg extended release tablet Take 1 tablet (25 mg total) by mouth daily (Patient not taking: Reported on 08/23/2023) 30 tablet 0 mirtazapine (REMERON) 15 mg tablet Take 1 tablet (15 mg total) by mouth nightly (Patient not taking: Reported on 08/23/2023) 30 tablet 0 mupirocin (BACTROBAN) 2 % ointment Apply topically 3 (three) times a day Collaborating physician Jaciel Aldana MD (Patient not taking: Reported on 02/15/2023) 22 g 0 No current facility-administered medications for this visit. Vital Signs: Vitals BP 130/82 (BP Location: Right arm, Patient Position: Sitting) Pulse 72 Resp 16 Ht 165.1 cm (5' 5 ) Wt 59 kg (130 lb) SpO2 98% BMI 21.63 kg/m?? Vitals: 08/23/23 0916 BP: 130/82 Pulse: 72 Resp: 16 SpO2: 98% Wt Readings from Last 3 Encounters: 08/23/23 59 kg (130 lb) 02/15/23 59.4 kg (131 lb) 01/25/23 56.2 kg (124 lb) Physical Exam: Physical Exam General appearance: [...] for this or any previous visit.] CARDIOGRAPHICS: Impression and Plan: Diagnoses and all orders for this visit: Prinzmetal's angina (CMS/HCC) (HCC) (Primary) Assessment & Plan: No recurrence, continue amlodpine. Primary hypertension Assessment & Plan: Continue amlodipine. Hypercholesterolemia Assessment & Plan: Contine Atorvastatin. DICTATION DISCLAIMER: This note is transcribed using the [employer] direct voice recognition system without human assistant softball coach. In an effort to expedite patient care, this note has not been adjusted for typographical, grammatical, and syntax by a trained general medical practitioner. Portions of this note have been copied from the medical record, but edited appropriately to accurately reflect the patient's current clinical state. Thank you for the consult. We will be happy to follow in this patient's care. MORELIA Calire@10:02 AM Cc:Torito Gonzalez MD documented in this encounter Miscellaneous Notes * Assessment & Plan Note - Jacob Espitia MD - 08/23/2023 10:02 AM CDT Associated Problem(s): Hypertension Continue amlodipine. * Assessment & Plan Note - Jacob Espitia MD - 08/23/2023 10:01 AM CDT Associated Problem(s): Prinzmetal's angina (CMS/HCC) (HCC) No recurrence, continue amlodpine. * Assessment & Plan Note - Jacob Espitia MD - 08/23/2023 10:01 AM CDT Associated Problem(s): Hypercholesterolemia Contine Atorvastatin. documented in this encounter Plan of Treatment Not on file documented as of this encounter Visit Diagnoses Diagnosis Prinzmetal's angina (CMS/HCC) (HCC)- Primary Prinzmetal angina Primary hypertension Unspecified essential hypertension Hypercholesterolemia Pure hypercholesterolemia documented in this encounter Discontinued Medications Medication Sig Discontinue Reason Start Date End Da te metoprolol XL (TOPROL-XL) 25 mg extended release tabletIndications:car diovascular disease Take 1 tablet (25 mg total) by mouth daily Alternate therapy 01/19/2023 08/23/2023 mirtazapine (REMERON) 15 mg tablet Take 1 tablet (15 mg total) by mouth nightly Therapy completed 01/18/2023 08/23/2023 mupirocin (BACTROBAN) 2 % ointment Apply topically 3 (three) times a day Collaborating physician Jaciel Aldana MD Therapy completed 01/25/2023 08/23/2023 documented as of this encounter Care Teams Corporate Strategist Relationship Specialty Start Date End Date Torito Gonzalez MD [address] [place] [address] PCP - General 02/25/17 documented as of this encounter
--- OUTSIDE RECORDS SUMMARY | 2024-11-18 11:54 | XMS_ITS | Encounter Summary ---
Author Organization [facility] Address [address] [place] [address] Care Team Providers Care Leather Cartridge Belt Maker Name Role Phone Torito Gonzalez MD Primary Care Provider +1- [phone] Reason for Referral * Sleep Medicine (Routine) - Closed Specialty Diagnoses / Procedures Referred By Turner ramirez Referred To Contact Diagnoses Obstructive sleep apnea (adult) (pediatric) Chronic obstructive pulmonary disease, unspecified COPD type (HCC) [place] [address] [place] [address] Phone: tel: fax: [address] [phone] Referral ID Status Reason Start Date Expiration Date Visits Re quested Visits Authorized [id number] Closed 12/21/2023 01/19/2025 1 1 IC INFORMATION RELATIONS MANAGER Reason for Visit * Sleep Medicine (Routine) - Closed Specialty Diagnoses / Procedures Referred By Contconcepcion t Referred To Contact Diagnoses Obstructive sleep apnea (adult) (pediatric) Chronic obstructive pulmonary disease, unspecified COPD type (HCC) [place] [address] [address] Phone: tel: fax: [address] [phone] Referral ID Status Reason Start Date Expiration Date Visits Re quested Visits Authorized [id number] Closed 12/21/2023 01/19/2025 1 1 Encounter Details Date Type Department Care Team (Latest Contact Info) Description 12/29/2023 7:15 PM PUBLIC INFORMATION RELATIONS MANAGER - 12/29/2023 11:59 PM PUBLIC INFORMATION RELATIONS MANAGER Hospital Encounter [facility] [address] [place] [id number] Obstructive sleep apnea (adult) (pediatric); Chronic obstructive pulmonary disease, unspecified COPD type (HCC) Discharge Disposition: Discharge to home or self [...] week 01/18/2023 How often do you attend [facility] or anabaptist services? More than 4 times per year 01/18/2023 Do you belong to any clubs o r organizations such as yazidi groups, unions, fraternal or athletic groups, or [...] place to sleep or slept in a halfway (including now)? No 01/18/2023 Personal Safety Answer Date Recorded Getting School Help Needed Denies 11/13 Comments No Sex and Gender Information Value Date Recorded Sex Assigned at Not on file Legal Sex Female 1:11 AM PUBLIC INFORMATION RELATIONS MANAGER Gender Identity Not on file Sexual [...] oral route every day 0 0 05/10/2016 calcium carbonate (CALCIUM 600 ORAL) Take 1 [...] as needed for rhinitis 1 each 01/18/2023 ipratropium-albute roL (DUO-NEB) 0.5-2.5 mg/3 mL nebulizer solutionIndication s:Chronic Obstructive Pulmonary Disease with Bronchospasms Take 3 mL by nebulization every 6 (six) hours as needed for shortness of breath As needed amLODIPine (NORVASC) 5 mg tablet Take 1 tablet by mouth once daily 90 tablet 3 06/27/2023 06/04/20 24 denosumab (PROLIA) 60 mg/mL syringe Inject 1 mL (60 mg total) under the skin once for 1 dose 1 mL 12/27/2023 06/14/20 24 documented as of this encounter Discharge Disposition Disposition Code Departure Means Destination Discharge to home or self care documented in this encounter Progress Notes * Alina Toussaint MD - 12/29/2023 7:15 PM CST Baseline Polysomnogram History: Gabbie Chris is a 68 y.o. female who presents for baseline polysomnogram. Reason for sleep study: snoring, restless sleep, excessive daytime sleepiness [place] sleepiness score: 6 Weight: 130 lbs BMI: 21.63 Procedure: This overnight diagnostic baseline polysomnogram was performed with the generation technologist in attendance. Patient is studied with multiple channel polysomnography to include EEG, sleep stage recording, cardio-respiratory monitoring, monitoring for limb movements as well as videotaping. Central, fron nyla, occipital and temporal EEG, bilateral EOG, submental EMG, oral and nasal airflow, thoracoabdominal motion, bilateral anterior tibialis EMG, one lead EKG, snore sensor, pulse oximetry and transcutaneous CO2 were monitored. Sleep stages, periodic limb movements, EEG arousals and respiratory events were scored according to the criteria from The [place] [employer] (AASM) Manual for the scoring of sleep and associated events - version 2.6. Findings: Baseline parameters: Baseline heart rate =60/m, Oxygen saturation =98% Sleep architecture: Polysomnogram revealed total recording time of 461.2 minutes and total sleep time of 339.5 minutes with sleep efficiency of 73.6%. Sleep onset latency was 12.0 minutes, and REM latency 101.5 minutes. N1 13.8%, N2 60.5%, N3 13.4% and REM 12.2% accounted for the total sleep time. EEG profile: EEG was reviewed. Snoring profile: The patient had mild to moderate snoring. Snoring was not associated with arousals. Respiratory analysis: A total of 1 obstructive apneas, 0 mixed apneas, 0 central apneas and 14 hypopneas were seen with AHI of 2.7 per hour. In addition, 14 Respiratory Effort Related Arousals (RERAs) were seen with AHI+RERA index or respiratory disturbance index (RDI) of 5.1. Respiratory events occurred more during REM sleep with REM AHI 17.3, REM RDI of 30.4, non-REM AHI 0.6 and non-REM RDI of 1.6. Oximetry data: Lowest oxygen saturation was 87%. The patient had an O2 saturation < 88% for 7.7 minutes. Lowest oxygen saturation was associated with a respiratory event. TcCO2 data: Baseline TcCO2 was 41 mmHg and the maximum TcCO2 was 51 mmHg during the study. Limb movement profile: A total of 50 periodic limb movements were noted, of which 14 movements wereassociated with arousal. Total movement index was 8.8 per hour and movement with arousal index was 2.5 per hour. Parasomnia profile: No abnormal behavior to suggest parasomnia was noted. EKG analysis: revealed normal sinus rhythm. Interpretation and Recommendations: This is an abnormal polysomnogram due to the presence of: Mild obstructive sleep apnea per AASM criteria with Respiratory Disturbance Index of 5.1 and AHI of2.7. Respiratory events occurred more during REM sleep with REM AHI 17.3, REM RDI of 30.4, non-REM AHI 0.6 and non-REM RDI of 1.6. And patient was noted to have REM sleep for only 12.2% of total sleep time which might have contributed to the overall low AHI. Multiple factors can be contributory such as obesity, thyroid disease, and structural/obstructive abnormalities in the upper airway. An evaluation and management of these factors associated with sleep apnea would be beneficial. Treatment with Positive Airway Pressure (PAP) devices such as continuous PAP (CPAP), auto-adjustingPAP (APAP), and bi-level PAP (Bi-PAP) is recommended. Consider CPAP titration study to determine the optimal pressure required to alleviate sleep disordered breathing. Use of mandibular advancement device is another treatment option. Hypnotics, sedatives, and related medications have the potential of worsening the apnea and should be avoided. Patients with sleep apnea may have significant daytime hypersomnolence. If that is the case, driving or handling heavy machinery should be avoided until the apnea and excessive sleepiness have resolved. Short sleep latency is suggestive of excessive sleepiness. Patient???s sleep onset latency was 12.0minutes and this could be due to patient???s untreated sleep apnea. Please reevaluate patient clinically after compliant use of PAP therapy. Reduced sleep efficiency: Patient has reduced sleep efficiency of 73.6%. Factors like, psychiatric illness, insomnia or chronic pain may be contributory as well as poor sleep hygiene and/or daytime napping. This could also be due to sleeping in the sleep lab for the first time called ???first nighteffect?? . Clinical correlation is recommended. Alina Toussaint MD [facility] Sleep Medicine IC INFORMATION RELATIONS MANAGER documented in this encounter Plan of Treatment Not on file documented as of this encounter Procedures Procedure Name Priority Date/Time Associated Diagnosis Comments PSG (SIMPLE) Routine 12/30/2023 Obstructive sleep apnea (adult) (pediatric) Chronic obstructive pulmonary disease, unspecified COPD type (HCC) documented in this encounter Results * PSG (12/30/2023) Impressions Alina Toussaint MD - 12/30/2023 Baseline Polysomnogram History: Gabbie Chris is a 68 y.o. female who presents for baseline polysomnogram. Reason for sleep study: snoring, restless sleep, excessive daytime sleepiness [place] sleepiness score: 6 ?? Weight: 130 lbs BMI: 21.63 ? Procedure: This overnight diagnostic baseline polysomnogram was performed with the generation technologist in attendance. Patient is studied with multiple channel polysomnography to include EEG, sleep stage recording, cardio-respiratory monitoring, monitoring for limb movements as well as videotaping. Central, frontal, occipital and temporal EEG, bilateral EOG, submental EMG, oral and nasal airflow, thoracoabdominal motion, bilateral anterior tibialis EMG, one lead EKG, snore sensor, pulse oximetry and transcutaneous CO2 were monitored. Sleep stages, periodic limb movements, EEG arousals and respiratory events were scored according to the criteria from The [place] [employer] (AASM) Manual for the scoring of sleep and associated events - version 2.6. ?? Findings: ?? Baseline parameters: Baseline heart rate =60/m, Oxygen saturation =98% Sleep architecture: Polysomnogram revealed total recording time of 461.2 minutes and total sleep time of 339.5 minutes with sleep efficiency of 73.6%. ??Sleep onset latency was 12.0 minutes, and REM latency 101.5 minutes. ?? N1 13.8%, ??N2 60.5%, N3 13.4% and REM 12.2% accounted for the total sleep time. EEG profile: EEG was reviewed. Snoring profile: The patient had mild to moderate snoring. Snoring was not associated with arousals. Respiratory analysis: A total of 1 obstructive apneas, 0 mixed apneas, 0 central apneas and 14 hypopneas were seen with AHI of 2.7 per hour. In addition, 14 Respiratory Effort Related Arousals (RERAs) were seen with AHI+RERA index or respiratory disturbance index (RDI) of 5.1. Respiratory events occurred more during REM sleep with REM AHI 17.3, REM RDI of 30.4, non-REM AHI 0.6 and non-REM RDI of 1.6. Oximetry data: Lowest oxygen saturation was 87%. The patient had an O2 saturation < 88% for 7.7 minutes. ?? Lowest oxygen saturation was associated with a respiratory event. TcCO2 data: Baseline TcCO2 was 41 mmHg and the maximum TcCO2 was 51 mmHg during the study. Limb movement profile: ??A total of 50 periodic limb movements were noted, of which 14 movements were associated with arousal. Total movement index was 8.8 per hour and movement with arousal index was 2.5 per hour. Parasomnia profile: No abnormal behavior to suggest parasomnia was noted. EKG analysis: revealed normal sinus rhythm. Interpretation and Recommendations: This is an abnormal polysomnogram due to the presence of: ? 1. Mild obstructive sleep apnea per AASM criteria with Respiratory Disturbance Index of 5.1 and AHI of ??2.7. Respiratory events occurred more during REM sleep with REM AHI 17.3, REM RDI of 30.4, non-REM AHI 0.6 and non-REM RDI of 1.6. ??And patient was noted to have REM sleep for only 12.2% of total sleep time which might have contributed to the overall low AHI. Multiple factors can be contributory such as obesity, thyroid disease, and structural/obstructive abnormalities in the upper airway. An evaluation and management of these factors associated with sleep apnea would be beneficial. ?? 2. Treatment with Positive Airway Pressure (PAP) devices such as continuous PAP (CPAP), auto-adjusting PAP (APAP), and bi-level PAP (Bi-PAP) is recommended. Consider CPAP titration study to determine the optimal pressure required to alleviate sleep disordered breathing. 3. Use of mandibular advancement device is another treatment option. 4. Hypnotics, sedatives, and related medications have the potential of worsening the apnea and should be avoided. ? 5. Patients with sleep apnea may have significant daytime hypersomnolence. If that is the case, driving or handling heavy machinery should be avoided until the apnea and excessive sleepiness have resolved. 6. Short sleep latency is suggestive of excessive sleepiness. Patient's sleep onset latency was 12.0 minutes and this could be due to patient's untreated sleep apnea. Please reevaluate patient clinically after compliant use of PAP therapy. 7. Reduced sleep efficiency: Patient has reduced sleep efficiency of 73.6%. Factors like, psychiatric illness, insomnia or chronic pain may be contributory as well as poor sleep hygiene and/or daytime napping. This could also be due to sleeping in the sleep lab for the first time called first night effect . Clinical correlation is recommended. Alina Toussaint MD [facility] Sleep Medicine Narrative Alina Toussaint MD - 12/30/2023 In lab for review us Sol Lincoln MD [facility] ORDERABLES Final Result documented in this encounter Visit Diagnoses Diagnosis Obstructive sleep apnea (adult) (pediatric) Chronic obstructive pulmonary disease, unspecified COPD type (HCC) documented in this encounter Care Teams Leather Cartridge Belt Maker Relationship Specialty Start Date End Date Torito Gonzalez MD [address] [place] [address] PCP - General 02/25/17 documented as of this encounter
--- OUTSIDE RECORDS SUMMARY | 2024-11-18 11:54 | XMS_ITS | Encounter Summary ---
Author Organization [facility] Healthcare Address [address] [place] [address] Care Team Providers Care Logistician Name Role Phone Torito Gonzalez MD Primary Care Provider +1- [phone] Reason for Visit * Reason Onset Date Comments Benefit Verification Form, Prolia 11/02/2023 Encounter Details Date Type Department Care Team ([facility] st Contact Info) Description 11/02/20[address] [facility] [address] [place] [address] [address] [place] [address] Leticia Montes De Oca RN Benefit Verification Form, Prolia Social History Tobacco Use Types Packs/Day [...] often do you attend chur ch or catholic services? More than 4 times per year 01/18/2023 Do you belong to any clubs o r organizations such as buddhism groups, unions, fraternal or athletic groups, or [...] a long term (including now)? No 01/18/2023 Comments No Sex and Gender Information Value Date Recorded Sex Assigned at Not on file Legal Sex Female 1:11 AM TEACHER DRAMATICS Gender Identity Not on file Sexual Orientation Not on file documented as of this encounter Miscellaneous Notes * Telephone Encounter - Leticia Montes De Oca RN - 11/02/2023 3:22 PM TEACHER DRAMATICS Benefit Verification Form for Prolia faxed to [phone]. [employer] documented in this encounter Plan of Treatment Not on file documented as of this encounter Visit Diagnoses Not on filedocumented in this encounter Care Teams Logistician Relationship Specialty Start Date End Date Torito Gonzalez MD [address] [place] [address] PCP - General 02/25/17 documented as of this encounter
--- OUTSIDE RECORDS SUMMARY | 2024-11-18 11:54 | XMS_ITS | Encounter Summary ---
Author Organization [facility] Healthcare Address [address] [place] [address] Care Team Providers Care Retail Pricing Coordinator Name Role Phone Torito Gonzalez MD Primary Care Provider +1- [phone] Reason for Visit * Reason Comments Injections * Episode Based Medications (Routine) - Closed Specialty Diagnoses / Procedures Referred By Contac t Referred To Contact Diagnoses Age-related osteoporosis without current pathological fracture Alhaji Payan MD [address] [place] [address] [address] [address] Phone: tel: fax: [address] [place] [address] Phone: tel: Referral ID Status Reason Start Date Expiration Date Visits Re quested Visits Authorized [id number] Closed 06/02/2023 07/01/2024 1 1 Encounter Details Date Type Department Care Team (Latest Contact Info) Description 07/05/2023 8:30 AM CDT Clinical Support [address] [place] [id number] Age-related osteoporosis without current pathological fracture (Primary [...] often do you attend chur ch or presybeterian services? More than 4 times per year 01/18/2023 Do you belong to any clubs o r organizations such as presybeterian groups, unions, fraternal or athletic groups, or [...] place to sleep or slept in a assisted (including now)? No 01/18/2023 Comments No Sex and Gender Information Value Date Recorded Sex Assigned at Not on file Legal Sex Female 1:11 AM SWITCHER Gender Identity Not on file Sexual Orientation Not on file documented as of this encounter Last Filed Vital Signs Vital Sign Reading Time Taken Comments Blood Pressure 131/81 07/05/2023 8:23 AM CDT Pulse 72 07/05/2023 8:23 AM CDT Temperature 36.3 ??C (97.3 ??F) 07/05/2023 8:23 AM CD T Respiratory Rate 20 07/05/2023 8:23 AM CDT Oxygen Saturation 100% 07/05/2023 8:23 AM CDT Inhaled Oxygen Concentration - - Weight - - Height - - Body Mass Index - - documented in this encounter Nursing Notes * Prerna Berg RN - 07/05/2023 8:30 AM CDT Patient presented to the infusion center today for an injection of Prolia. Vitals stable. Last calcium level was 8.5. Patient denies any dental problems and states they are taking calcium supplements. Prolia given in the upper left arm. Patient tolerated well. AVS printed and reviewed with patient.Patient had no further questions and left in stable condition. documented in this encounter Plan of Treatment Not on file documented as of this encounter Visit Diagnoses Diagnosis Age-related osteoporosis without current pathological fracture- Primary documented in this encounter Administered Medications Inactive Administered Medications - up to 3 most recent administrations Medication Order MAR Action Action Date Dose Rate Site denosumab (PROLIA) subcutaneous syringe 60 mg 60 mg, subcutaneous, Once, On Tue07/05/23 at 0900, For 1 dose, Calcium level should be greater than 8 mg/dl. Injection to be given in the upper arm, thigh or abdomen. Refrigerate. Allow to stand 15 to 30 mins prior to useIndications:Age-related osteoporosis without current pathological fracture Given 07/05/2023 8:25 AM CDT 60 mg Left Upper Arm documented in this encounter Orders Medications Ordered That Krunal ht Not Have Been Administered Count Last Ordered Date First Ordered Date denosumab (PROLIA) subcutane ous syringe 60 mg 1 07/05/2023 documented in this encounter Care Teams Retail Pricing Coordinator Relationship Specialty Start Date End Date Torito Gonzalez MD [address] [place] [address] PCP - General 02/25/17 documented as of this encounter
--- OUTSIDE RECORDS SUMMARY | 2024-11-18 11:54 | XMS_ITS | Encounter Summary ---
Author Organization [facility] Healthcare Address [address] [place] [address] Care Team Providers Care Sheep Or Calf Grader Name Role Phone Torito Gonzalez MD Primary Care Provider +1- [phone] Reason for Visit * Reason Onset Date Comments Prolia Injection Prescription 12/22/2023 Encounter Details Date Type Department Care Team (Late st Contact Info) Description 12/22/2023 Telephone [employer] [address] [place] [address] [address] [place] [address] Leticia Montes De Oca RN Prolia Injection Prescription Social History Tobacco Use Types Packs/Day Years [...] often do you attend chur ch or denominational services? More than 4 times per year [...] on file Legal Sex Female 1:11 AM BUSINESS MANAGEMENT INTERN Gender Identity Not on file Sexual Orientation Not on file documented as of this encounter Ordered Prescriptions Prescription Sig Dispense Quantity Refills Last Filled Start Date End Date denosumab (PROLIA) 60 mg/mL syringe Inject 1 mL (60 mg total) under the skin once for 1 dose 1 mL 12/27/2023 06/14/2024 denosumab (PROLIA) 60 mg/mL syringe Inject 1 mL (60 mg total) under the skin once for 1 dose 1 mL 12/22/2023 12/27/2023 documented in this encounter Miscellaneous Notes * Telephone Encounter - Leticia Montes De Oca RN - 12/22/2023 12:40 PM BUSINESS MANAGEMENT INTERN Summary of Benefits and Prolia prescription faxed to [facility] at [phone]. Will await appt date. NESS MANAGEMENT INTERN documented in this encounter Plan of Treatment Not on file documented as of this encounter Visit Diagnoses Not on filedocumented in this encounter Discontinued Medications Medication Sig Discontinue Reason Start Date End Da te denosumab (PROLIA) 60 mg/mL syringe Inject 1 mL (60 mg total) under the skin once for 1 dose Reorder 06/01/2023 12/22/2023 denosumab (PROLIA) 60 mg/mL syringe Inject 1 mL (60 mg total) under the skin once for 1 dose Reorder 12/22/2023 12/27/2023 documented as of this encounter Care Teams Sheep Or Calf Grader Relationship Specialty Start Date End Date Torito Gonzalez MD [address] [place] [address] PCP - General 02/25/17 documented as of this encounter
--- OUTSIDE RECORDS SUMMARY | 2024-11-18 11:54 | XMS_ITS | Encounter Summary ---
Author Organization [facility] Healthcare Address [address] [place] [address] Care Team Providers Care Sanitary Inspector Name Role Phone Torito Gonzalez MD Primary Care Provider +1- [phone] Encounter Details Date Type Department Care Team (Late st Contact Info) Description 12/27/[address] [place] [address] Angie Peoples RN Social History Tobacco Use Types Packs/Day [...] often do you attend chur ch or restoration services? More than 4 times per year 01/18/2023 Do you belong to any clubs o r organizations such as restorationist groups, unions, fraternal or athletic groups, or [...] on file Legal Sex Female 1:11 AM PRINTED FORMS PROOFREADER Gender Identity Not on file Sexual Orientation Not on file documented as of this encounter Miscellaneous Notes * Telephone Encounter - Angie Peoples RN - 12/27/2023 11:53 AM PRINTED FORMS PROOFREADER Left a message for the pt to schedule her next prolia injection due 01/03/24. TED FORMS PROOFREADER documented in this encounter Plan of Treatment Not on file documented as of this encounter Visit Diagnoses Not on filedocumented in this encounter Care Teams Sanitary Inspector Relationship Specialty Start Date End Date Torito Gonzalez MD [address] [place] [address] PCP - General 02/25/17 documented as of this encounter
--- OUTSIDE RECORDS SUMMARY | 2024-11-18 11:54 | XMS_ITS | Encounter Summary ---
Author Organization [facility] Healthcare Address [address] [place] [address] Care Team Providers Care Loom Fixer Apprentice Name Role Phone Torito Gonzalez MD Primary Care Provider +1- [phone] Encounter Details Date Type Department Care Team (Late st Contact Info) Description 06/02/2023 Telephone [facility] [address] [facility] [address] [place] [address] Alhaji Payan MD [address] [place] [address] [address] [place] [id number] Social History Tobacco Use Types Packs/Day Years [...] often do you attend chur ch or oriental orthodox services? More than 4 times per year [...] place to sleep or slept in a longterm (including now)? No 01/18/2023 Comments No Sex and Gender Information Value Date Recorded Sex Assigned at Not on file Legal Sex Female 1:11 AM DIRECTOR OF AUDIOLOGY Gender Identity Not on file Sexual Orientation Not on file documented as of this encounter Miscellaneous Notes * Telephone Encounter - Prerna Berg RN - 06/02/2023 9:33 AM CDT Received order from Dr Payan for a prolia injection. Patient called at this time and scheduled. She confirmed date and time. documented in this encounter Plan of Treatment Not on file documented as of this encounter Visit Diagnoses Not on filedocumented in this encounter Care Teams Loom Fixer Apprentice Relationship Specialty Start Date End Date Torito Gonzalez MD [address] [place] [address] PCP - General 02/25/17 documented as of this encounter
--- OUTSIDE RECORDS SUMMARY | 2024-11-18 11:55 | XMS_ITS | Encounter Summary ---
Author Organization [facility] Address [address] [place] [address] Care Team Providers Care Electric Motor Analyst Name Role Phone Torito Gonzalez MD Primary Care Provider +1- [phone] Encounter Details Date Type Department Care Team (Late st Contact Info) Description 04/10/2023 Orders Only [facility] [place] Health Information Management [address] [place] [address] Scanning, Provider Social History Tobacco Use Types Packs/Day Years [...] How often do you attend chur or hoahaoism services? More than 4 times [...] in a halfway (including now)? 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 Gender Identity Not on file Sexual Orientation Not on file documented as of this encounter Plan of Treatment Not on file documented as of this encounter Procedures Procedure Name Priority Date/Time Associated Diagnosis Comments SCAN - RADIOLOGY/IMAGING 04/10/2023 SCAN - LABS 04/10/2023 documented in this encounter Results * SCAN - LABS (04/10/2023) us Provider Scanning Final Result * SCAN - RADIOLOGY/IMAGING (04/10/2023) Anatomical Region Laterality Modality Other us Provider Scanning Final Result documented in this encounter Visit Diagnoses Not on filedocumented in this encounter Care Teams Electric Motor Analyst Relationship Specialty Start Date End Date Torito Gonzalez MD [address] [place] [address] PCP - General 02/25/17 documented as of this encounter
--- OUTSIDE RECORDS SUMMARY | 2024-11-18 11:55 | XMS_ITS | Encounter Summary ---
Author Organization [facility] Address [address] [place] [address] Care Team Providers Care Extraction Supervisor Name Role Phone Torito Gonzalez MD Primary Care Provider [phone]- [phone] Reason for Visit * Reason Onset Date Comments [facility] site oozing 01/25/2023 Encounter Details Date Type Department Care Team (Late st Contact Info) Description 01/25/2023 Telephone Howell Chamfering Machine Operator [address] [place] [address] [address] [place] [address] Chelsea Valencia MA [facility] site oozing Social History Tobacco Use Types Packs/Day Years [...] often do you attend chur ch or sikhism services? More than 4 times per year 01/18/2023 Do you belong to any clubs o r organizations such as worship groups, unions, fraternal or athletic groups, or [...] health care facility (including now)? 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 Cath was completed on 01/17/23. Informed patient to go to ER to have it looked at. E TELEVISION INSTALLER documented in this encounter Plan of Treatment Not on file documented as of this encounter Visit Diagnoses Not on filedocumented in this encounter Care Teams Extraction Supervisor Relationship Specialty Start Date End Date Torito Gonzalez MD [address] [place] [address] PCP - General 02/25/17 documented as of this encounter
--- OUTSIDE RECORDS SUMMARY | 2024-11-18 11:55 | XMS_ITS | Encounter Summary ---
Author Organization [facility] Address [address] [place] [address] Care Team Providers Care Radiology Transporter Name Role Phone Torito Gonzalez MD Primary Care Provider +1- [phone] Encounter Details Date Type Department Care Team (Late st Contact Info) Description 05/08/2023 Orders Only [facility] Health Information Management [address] [place] [address] Scanning, Provider Social History Tobacco Use Types [...] How often do you attend chur or latter day services? More than 4 times per year 01/18/2023 Do you belong to any clubs o r organizations such as taoist groups, unions, fraternal or athletic groups, or [...] a nursing home (including now)? No 01/18/2023 Comments No Sex and Gender Information Value Date Recorded Sex Assigned at Not on file Legal Sex Female 1:11 AM MANAGER SIGN Gender Identity Not on file Sexual Orientation Not on file documented as of this encounter Plan of Treatment Not on file documented as of this encounter Procedures Procedure Name Priority Date/Time Associated Diagnosis Comments SCAN - RADIOLOGY/IMAGING 05/08/2023 SCAN - LABS 05/08/2023 documented in this encounter Results * SCAN - LABS (05/08/2023) us Provider Scanning Final Result * SCAN - RADIOLOGY/IMAGING (05/08/2023) Anatomical Region Laterality Modality Other us Provider Scanning Final Result documented in this encounter Visit Diagnoses Not on filedocumented in this encounter Care Teams Radiology Transporter Relationship Specialty Start Date End Date Torito Gonzalez MD [address] [place] [address] PCP - General 02/25/17 documented as of this encounter
--- OUTSIDE RECORDS SUMMARY | 2024-11-18 11:55 | XMS_ITS | Encounter Summary ---
Author Organization [facility] Address [address] [place] [address] Care Team Providers Care Mortgage Loan Computation Clerk Name Role Phone Torito Gonzalez MD Primary Care Provider +1- [phone] Encounter Details Date Type Department Care Team (Late st Contact Info) Description 05/11/2023 Orders Only [facility] [place] Health Information Management [address] [place] [address] Scanning, Provider Social History Tobacco Use Types [...] How often do you attend chur or mandaen services? 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 Gender Identity Not on file Sexual Orientation Not on file documented as of this encounter Plan of Treatment Not on file documented as of this encounter Procedures Procedure Name Priority Date/Time Associated Diagnosis Comments SCAN - RADIOLOGY/IMAGING 05/11/2023 SCAN - PATHOLOGY 05/10/2023 documented in this encounter Results * SCAN - RADIOLOGY/IMAGING (05/11/2023) Anatomical Region Laterality Modality Other us Provider Scanning Final Result * SCAN - PATHOLOGY (05/10/2023) us Provider Scanning Final Result documented in this encounter Visit Diagnoses Not on filedocumented in this encounter Care Teams Mortgage Loan Computation Clerk Relationship Specialty Start Date End Date Torito Gonzalez MD [address] [place] [address] PCP - General 02/25/17 documented as of this encounter
--- OUTSIDE RECORDS SUMMARY | 2024-11-18 11:55 | XMS_ITS | Encounter Summary ---
Author Organization [facility] Healthcare Address [address] [place] [address] Care Team Providers Care Art Handler Name Role Phone Torito Gonzalez MD Primary Care Provider [phone] Reason for Visit * Auth/Cert (Routine) Specialty Diagnoses / Procedures Referred By Contac t Referred To Contact Diagnoses NSTEMI (non-ST elevated myocardial infarction) (CMS/HCC) (HCC) NSTEMI Procedures na Referral ID Status Reason Start Date Expiration Date Visits Re quested Visits Authorized [id number] 1 1 Encounter Details Date Type Department Care Team (Late st Contact Info) Description 01/17/2023 10:00 AM KIDS ACTIVITIES COACH - 01/17/2023 12:00 PM KIDS ACTIVITIES COACH Surgery [facility] Cardiac Catheterization Lab [address] [place] [address] Sabine Espitia MD [address] [place] [id number] LEFT HEART CATHETERIZATION WITH CORONARY ANGIOGRAPHY AND WITH OR WITHOUT LEFT VENTRICULOGRAM [id number] Surgery Details Date/Time Status Location OR Service Patient Class Case Class Case Type Trauma Case? 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 No 01/18/2023 Comments No Sex and Gender Information Value Date Recorded Sex Assigned at Not on file Legal Sex Female 1:11 AM KIDS ACTIVITIES COACH Gender Identity Not on file Sexual Orientation Not on file documented as of this encounter Last Filed Vital Signs Vital Sign Reading Time Taken Comments Blood Pressure 106/72 01/17/2023 11:55 AM KIDS ACTIVITIES COACH Pulse 64 01/17/2023 12:00 PM KIDS ACTIVITIES COACH Temperature 36.7 ??C (98 ??F) 01/17/2023 11:55 AM KIDS ACTIVITIES COACH Respiratory Rate 20 01/17/2023 11:55 AM KIDS ACTIVITIES COACH Oxygen Saturation 95% 01/17/2023 11:55 AM KIDS ACTIVITIES COACH Inhaled Oxygen Concentration - - Weight 56.2 kg (124 lb) 01/15/2023 8:09 PM KIDS ACTIVITIES COACH Height 165 cm (5' 4.96 ) 01/15/2023 8:09 PM KIDS ACTIVITIES COACH Body Mass Index 20.66 01/15/2023 8:09 PM KIDS ACTIVITIES COACH documented in this encounter Discharge Summaries * Samra Watt MD - 01/18/2023 1:21 PM CST Inpatient Discharge Summary Patient Name - Gabbie Dsouza Patient Age - 67 yrs Patient - [id number] CSN - [id number] Document Creation Date: 01/18/2023 Admitting Provider, : Daquan Ragsdale MD Discharge Provider, MD: Samra Watt MD Primary Care Physician at Discharge: Torito Gonzalez MD [phone] Admission Date: 01/15/2023 Discharge Date/time: 01/18/2023 Admission Location: [facility] LOS - LOS: 3 days DETAILS OF HOSPITAL STAY Hospital Problems/Diagnoses Principal Problem: NSTEMI (non-ST elevated myocardial infarction) ([facility] Active Problems: CAD (coronary artery disease) Hypertension Gastroesophageal reflux disease without esophagitis COPD (chronic obstructive pulmonary disease) ([facility] ([facility]) Depression Reason for Hospitalization: 67 y.o. female with a PMHx significant for Dysphagia, GERD and HTN Patient presents to ED [facility] with chief complaint of chest pain and was transferred to [facility] for higher level of care and intervention. HPI: Patient reported she had previously had COVID in July. After discharge she had been on home O2 which she has not been using regularly. One week ago she had sinus surgery and has been very stuffy. Patient has been checking her O2 regularly. A patient reported she had been feeling well Tuesday proximally 1 PM she took a nap. She awoke short of breath she put on her O2 at 2 L, took rescue inhaler and nebulizer treatment. With no improvement she called EMS. EMS gave her another rescue inhaler puff [facility] Patient stated her initial O2 sats were 82% prior to O2 placement. Patient denies chest pain. She reports she has felt some mid chest pressure that makes it difficult for her to breathe but had associated it with shortness of breath. Patient sees Dr. Espitia forCardiology she has a history of coronary spasms, which she reported subsided after she began takingthe amlodipine. Patient is not anticoagulated. Patient follows with cardiology annually. Patient was started on heparin drip ACS, which was discontinued prior to transfer Hospital Course: NSTEMI. Cardiac cath was done on 01/17/23 normal LV EF; with a focal area of anterolateral akinesis.Insignificant CAD. Cardio cleared for d/c continue with norvasc and metoprolol; f/u with cardio in 1 month. Normal echo EF: 52; with g1DD. Asa 81mg Severe COPD. Home oxygen as prn; pulm consulted and monitor; breo; duoneb; resume Dupixent as outpt. F/u with pulm OP; Allergic rhinitis. Flonase. Discharge Details Physical Exam at Discharge: Discharge Condition: stable Pulse: 73 Resp: 18 BP: 104/66 Temp: 36.4 ??C (97.6 ??F) Weight: 56.2 kg (124 lb) Pertinent Exam Findings at Discharge: Constitutional: Awake, alert, of sound mind. Non-distressed on room air. Non- toxic appearing. Thin Eyes: EOMI. Conjunctiva are normal. ENMT: Face, External ears, and Nose are normal appearing. Hearing is intact bilaterally. Cardiovascular: Heart Rate and Rhythm Regular. No Murmur. No Jugular Venous Distention. No Carotid Bruit. Distal pulses are intact in the upper extremity. No edema in the lower extremities. Respiratory: on NC 2L; no wheezes Gastrointestinal: Soft. Non-tender without guarding. Non-distended. No mass Skin: Warm, Dry. Musculoskeletal: No inflamed joints. No significant joint deformities. Neurological: No gross neurological deficits appreciated. Psychiatric: Mood and affect are appropriate. Discharge Disposition: Discharge to home or self care Code Status at Discharge: Full Code Active Issues & Recommended Plan for Follow-up: Allergies: Amoxicillin Discharge Medications: Your medication list START taking these medications Instructions Last Dose Given Next Dose Due fluticasone furoate-vilanteroL 200-25 mcg/dose diskus inhaler Commonly known as: BREO ELLIPTA 1 puff, inhalation, Daily, Rinse mouth with water after use. Do not swallow. fluticasone propionate 50 mcg/actuation nasal spray Commonly known as: FLONASE 1 spray, each nostril, 2 times daily PRN metoprolol XL 25 mg extended release tablet Commonly known as: TOPROL-XL Start taking on: January 19, 2023 25 mg, oral, Daily mirtazapine 15 mg tablet Commonly known as: REMERON 15 mg, oral, Nightly CONTINUE taking these medications Instructions Last Dose Given Next Dose Due albuterol HFA 90 mcg/actuation inhaler Commonly known as: PROVENTIL HFA,VENTOLIN HFA,PROAIR HFA albuterol sulfate HFA 90 mcg/actuation aerosol inhaler INHALE 1 TO 2 PUFFS BY MOUTH EVERY 6 HOURS NEEDED FOR WHEEZING amLODIPine 5 mg tablet Commonly known as: NORVASC 5 mg, oral, Daily aspirin 81 mg enteric coated tablet Doctor's comments: 81 mg CALCIUM 600 ORAL oral famotidine 20 mg tablet Commonly known as: PEPCID 20 mg, oral, Daily ipratropium-albuteroL 0.5-2.5 mg/3 mL nebulizer solution Commonly known as: DUO-NEB nebulization, Every 6 hours ASK your doctor about these medications Instructions Last Dose Given Next Dose Due denosumab 60 mg/mL syringe Commonly known as: PROLIA 60 mg, subcutaneous, Once Where to Get Your Medications These medications were sent to [facility] [address] [place] [address] [address] [facility] [address] [facility] [address] fluticasone furoate-vilanteroL 200-25 mcg/dose diskus inhaler fluticasone propionate 50 mcg/actuation nasal spray metoprolol XL 25 mg extended release tablet mirtazapine 15 mg tablet Time Spent in Discharge Process: I have spent 39 minutes on discharge planning activities. Time spent was on Coordination of care, Follow up , discharge exam, and parent/patient education Test Results Pending at Discharge (If Blank, None Found): Operative Procedures Performed (If Blank, None Found): Procedure(s): LEFT HEART CATHETERIZATION WITH CORONARY ANGIOGRAPHY AND WITH OR WITHOUT LEFT VENTRICULOGRAM [id number] Outpatient Follow-Up: Future Appointments Date Time Provider Department Center 02/15/2023 9:45 AM Sabine Espitia MD [facility] 04/15/2023 9:00 AM Sabine Espitia MD [facility] Contact Information for Follow-ups Torito Gonzalez MD Specialty: Internal Medicine Relationship: [place] [address] Next Steps: Go to Instructions: Patient will go to follow-up PCP appointment as previously scheduled. Please schedule an appointment with the following provider(s): Torito Gonzalez MD [facility] [place] [address] Go to Patient will go to follow-up PCP appointment as previously scheduled. ANCILLARY INFORMATION Other Procedures & Diagnostic Tests: ECG 12 lead Result Date: 01/16/2023 Vent Rate: 78 bpm RR Interval: 765 msec NE Interval: 155 msec QRS Duration: 77 msec QT Interval: 387 msec QTC Interval: 420 msec P-R-T Anza: -4 - 8 - 75 degrees SINUS RHYTHM SEPTAL MYOCARDIAL INFARCTION , PROBABLY OLD [40+ ms Q WAVE IN V1/V2] ABNORMAL ECG No old EKG Electronically Signed By: Dr. Norma Collins [facility] CT Chest PE (CTA) W Contrast Result Date: 01/17/2023 Examination: CT CHEST PE (CTA) W CONTRAST Date: 01/16/2023 3:55 PM Clinical History: Chest pain, PE suspected, high prob Technique: Computed tomographic images were acquired a CT angiographic protocoloptimized for pulmonary embolism. Contrast-enhanced transaxial images were obtained following the intravenous administration of 100 mL Optiray 350, nonionic contrast. Multiplanar reformatted images and 3-dimensional images were obtained on the 3-D workstation and sent to the PACS archival system. Comparison: None. Preliminary report was given by [facility]. Findings: No acute pulmonary embolism is seenin the main, 1st, 2nd, and 3rd order pulmonary arterial (PA) branches. There is no aortic aneurysm or dissection. Normal heart size noted with trace pericardial effusion. There is no CT evidence for right ventricular strain. There are no pathologically enlarged mediastinal or hilar lymph nodes. Thevisualized thyroid is not remarkable. Diffuse bronchial thickening with extensive bilateral lower lobe basal predominant mucoid impaction noted. Bilateral lower lobe basal predominant subsegmental atelectasis is also seen. Thoracic hyperkyphosis with moderate to marked mid lower thoracic disc degeneration is present. The visible portions of the upper abdomen are unremarkable. No evidence of acute pulmonary embolism. Diffuse bronchial thickening with lower lobe basal predominant mucoid impaction and subsegmental atelectasis. Findings could be due to bronchitis acute or chronic or reactive airway disease. Trace pericardial effusion. Electronically signed by: Nadia Arroyo M.D. Recent Labs: Recent Labs Lab Units 01/16/23 0501 01/15/23 2150 WBC K/cumm 15.6* 14.6* HEMOGLOBIN g/dL 13.0 13.2 HEMATOCRIT % 40.8 39.2 PLATELETS K/cumm 247 258 Recent Labs Lab Units 01/16/23 0501 01/15/23 2150 WBC K/cumm 15.6* 14.6* HEMOGLOBIN g/dL 13.0 13.2 HEMATOCRIT % 40.8 39.2 PLATELETS K/cumm 247 258 NEUTROS PCT % 66.6 -- LYMPHS PCT % 23.3 -- MONOS PCT % 9.2 -- EOS PCT % 0.1 -- Recent Labs Lab Units 01/18/23 0550 01/16/23 0501 SODIUM mmol/L 139 143 POTASSIUM PLASMA mmol/L 4.1 4.5 CHLORIDE mmol/L 110 113* CO2 mmol/L 20* 23 BUN SERUM mg/dL 15 17 CREATININE mg/dL 0.65 0.65 [id number] mL/min/1.73 m2 95 95 GLUCOSE mg/dL 84 101 CALCIUM mg/dL 8.1* 8.1* ALBUMIN g/dL -- 3.6 Recent Labs Lab Units 01/18/23 0550 01/16/23 0501 SODIUM mmol/L 139 143 POTASSIUM PLASMA mmol/L 4.1 4.5 CHLORIDE mmol/L 110 113* CO2 mmol/L 20* 23 ANIONGAP mmol/L 9 7 GLUCOSE mg/dL 84 101 BUN SERUM mg/dL 15 17 CREATININE mg/dL 0.65 0.65 CALCIUM mg/dL 8.1* 8.1* ALBUMIN g/dL -- 3.6 ALK PHOS Units/L -- 72 ALT Units/L -- 11 AST Units/L -- 27 BILIRUBIN TOTAL mg/dL -- 0.3 Recent Labs Lab Units 01/16/23 0501 ALK PHOS Units/L 72 BILIRUBIN TOTAL mg/dL 0.3 TOTAL PROTEIN g/dL 6.6 ALT Units/L 11 AST Units/L 27 Recent Labs Lab Units 01/17/23 0705 01/17/23 0122 01/16/23 1814 01/16/23 0501 01/15/23 2150 PROTIME (PT) sec -- -- -- -- 13.1 INR -- -- -- -- 1.2 APTT sec 72* 80* 46* < > 27 < > = values in this interval not displayed. Lab Results Component Value Date GLUCOSE 84 01/18/2023 GLUCOSE 101 01/16/2023 GLUCOSE 85 12/09/2020 Implant: Implants No active implants to display in this view. General Precautions (If Blank, None Found): Isolation Status: No active isolations Nutritional Status and in-house recommendations: Dietary Orders (From admission, onward) Start Ordered 01/17/23 1116 Adult Diet Restricted; Low Fat, Low Chol, Low Na Diet effective now Comments: Heart Healthy Diet Question Answer Comment (CH) Diet type Restricted Fat / Sodium Restriction: Low Fat, Low Chol, Low Na 01/17/23 1115 Anticoagulation Indication: INR: 01/15/2023: 1.2 Warfarin Administrations (last 168 hours) None Oxygen Status: O2 Therapy for the past 12 hrs: O2 Therapy 01/18/23 1214 None (Room air) 01/18/23 0845 None (Room air) 01/18/23 0828 None (Room air) Wound Care Instructions Wound 01/17/23 Puncture Anterior;Right Groin [facility] site (Active) Wound Status Healing 01/18/23 0845 Site Assessment Dry;Intact;Clean 01/18/23 0845 Jennifer-wound Assessment Ecchymosis 01/18/2345 Closure Unable to assess 01/18/23 0845 Drainage Amount None 01/18/23 0845 Dressing Status Clean/Dry/Intact 01/18/23 0845 Dressing Gauze;Transparent film 01/18/23 0845 Other Instructions Call provider for: Call provider for: Temperature -Temperature greater than 101 degrees F Call provider for: difficulty breathing or chest pain Call provider for: extreme fatigue Call provider for: hives Call provider for: persistent dizziness or light-headedness Call provider for: redness, tenderness, or signs of infection (pain, swelling, redness, odor or green/yellow discharge around incision site) Call provider for: severe uncontrolled pain Call provider for: headache, visual disturbances, weakness and speech changes Special Instructions 1. using oxygen as needed; 2. Follow-up with Cardiology outpatient 3. Follow-up with pulmonology outpatient. 4. resume Dupixent as outpt Active LDAs (If Blank, None Found): Patient Emergency Contact: Primary Emergency Contact: Lian Lee Immunization Status at Discharge Immunization History Administered Date(s) Administered Pfizer SARS-CoV-2 Vaccination (12+ yrs) PURPLE 02/03/2021, 02/24/2021 Samra Watt MD ACTIVITIES COACH documented in this encounter Medications at Time [...] ORAL) Take 1 tablet by mouth daily famotidine (PEPCID) 20 mg tablet Take 1 [...] total) by mouth daily 90 tablet 3 04/16/2022 06/27/20 23 denosumab (PROLIA) 60 mg/mL syringe Inject 1 mL (60 mg total) under the skin once for 1 dose 1 mL 12/21/2022 06/01/20 23 fluticasone furoate-vilanteroL (BREO ELLIPTA) 200-25 mcg/dose diskus inhaler Inhale 1 puff daily Rinse mouth with water after use. Do not swallow. 30 each 01/18/2023 02/16/20 23 metoprolol XL (TOPROL-XL) 25 mg extended release tabletIndications: cardiovascular disease Take 1 tablet (25 mg total) by mouth daily 30 tablet 01/19/2023 08/23/20 23 mirtazapine (REMERON) 15 mg tablet Take 1 tablet (15 mg total) by mouth nightly 30 tablet 01/18/2023 08/23/20 23 documented as of this encounter Ordered Prescriptions Prescription Sig Dispense Quantity Refills Last Filled Start Date End Date fluticasone propionate (FLONASE) 50 mcg/actuation nasal spray Administer 1 spray into each nostril 2 (two) times a day as needed for rhinitis 1 each 01/18/2023 mirtazapine (REMERON) 15 mg tablet Take 1 tablet (15 mg total) by mouth nightly 30 tablet 01/18/2023 3 metoprolol XL (TOPROL-XL) 25 mg extended release tabletIndications: cardiovascular disease Take 1 tablet (25 mg total) by mouth daily 30 tablet 01/19/2023 3 fluticasone furoate-vilanteroL (BREO ELLIPTA) 200-25 mcg/dose diskus inhaler Inhale 1 puff daily Rinse mouth with water after use. Do not swallow. 30 each 01/18/2023 3 documented in this encounter Discharge Disposition Disposition Code Departure Means Destination Comment s Discharge to home or self care Car documented in this encounter Progress Notes * Marah Laura RN - 01/18/2023 1:54 PM CST Per completed home O2 eval pt does not require supplementary oxygen at rest or with ambulation. No CM follow-up needed. OZ Rodriguez-RN [facility] [phone] ACTIVITIES COACH * Chantal Johnston RRT - 01/18/2023 12:59 PM CST 01/18/23 1257 Resting Information Resting HR. 76 bpm Resting SPO2 95 % Oxygen Setting Room air Ambulation Trials to Assess Desaturation to 88% Activity 1: Ambulated (feet) 100 feet Oxygen Setting #1 Room air SPO2 (%) #1 93 % Activity 2: Ambulated (feet) 200 feet Oxygen Setting #2 Room air SPO2 (%) #2 94 % Activity 3: Ambulated (feet) 300 feet Oxygen Setting #3 Room air SPO2 (%) #3 92 % Activity 4: Ambulated (feet) 400 feet Oxygen Setting #4 Room air SPO2 % #4 92 % Activity 5: Ambulated (feet) 500 feet Oxygen Setting #5 Room air SPO2 (%) #5 92 % Post Ambulation Assessment HR Post Assessment 82 bpm RR Post Assessment 18 breaths/m Post Assessment Recommendation No oxygen needed at rest or with ambulation. $ Home O2 Assessment Yes ACTIVITIES COACH * Lang Rowe NP - 01/18/2023 11:40 AM CST Cardiology Progress Note 01/18/23 Symptoms: Patient with cardiac catheterization yesterday with no intervention. No chest pain shortness a breath this morning Pulmonary following Okay for discharge per Cardiology with follow-up in 1 month Vital Signs: Patient Vital Signs for the past 24 hrs: BP MAP (mmHg) Temp Temp src Pulse Resp SpO2 01/18/23 0828 100/62 71 36.7 ??C (98 ??F) Oral 86 -- 91 % 01/18/23 0800 -- -- -- -- 81 -- -- 01/18/23 0400 129/65 91 36.5 ??C (97.7 ??F) Oral 77 18 93 % 01/17/23 2253 118/68 85 36.8 ??C (98.2 ??F) Oral 77 18 91 % 01/17/23 1924 94/62 73 36.7 ??C (98 ??F) Oral 73 18 94 % 01/17/23 1621 93/65 74 37.5 ??C (99.5 ??F) Oral 76 -- 92 % 01/17/23 1600 -- -- -- -- 72 -- -- 01/17/23 1425 (!) 89/57 68 36.7 ??C (98 ??F) Oral 78 17 92 % 01/17/23 1300 94/63 74 36.7 ??C (98.1 ??F) Oral 79 16 93 % 01/17/23 1236 109/74 86 36.3 ??C (97.3 ??F) Oral 68 20 95 % 01/17/23 1200 -- -- -- -- 64 -- -- 01/17/23 1155 106/72 83 36.7 ??C (98 ??F) Oral 69 20 95 % Intake/Output Summary (Last 24 hours) at 01/18/2023 1140 Last data filed at 01/18/2023 1012 Gross per 24 hour Intake 754 ml Output 1400 ml Net -646 ml Wt Readings from Last 3 Encounters: 01/15/23 56.2 kg (124 lb) 09/21/22 59.9 kg (132 lb) 04/22/22 64 kg (141 lb 1.5 oz) Physical Exam: Lungs: Clear to auscultation and percussion. Respirations unlabored Cardiac: PMI and JVP normal, S1 and S2 normal, no murmur, no gallop or rub Abd: Soft, nontender, BS active, no hepatosplenomegaly or masses, no abdominal bruit or enlarged aortic pulsation Extremities: No clubbing, cyanosis. No edema. Femoral pulses 2+. Pedal pulses 2+ Current Medications: Current Facility-Administered Medications Medication Dose Route Frequency Provider Last Rate Last Admin acetaminophen (TYLENOL) tablet 650 mg 650 mg oral Q6H PRN Samra Watt MD albuterol HFA (PROVENTIL HFA,VENTOLIN HFA,PROAIR HFA) 90 mcg/actuation inhaler 2 puff 2 puff inhalation Q6H PRN (RT) Manisha Contreras NP amLODIPine (NORVASC) tablet 5 mg 5 mg oral Daily Manisha Contreras PHYSICIAN NEONATOLOGY 5 mg at 01/18/23 0855 aspirin enteric coated tablet 81 mg 81 mg oral Daily Manisha Contreras PHYSICIAN NEONATOLOGY 81 mg at 01/18/23 0855 benzonatate (TESSALON) capsule 200 mg 200 mg oral TID Manisha Contreras PHYSICIAN NEONATOLOGY 200 mg at 01/18/23 0855 calcium carbonate (OS-YVROSE) tablet 1,250 mg 500 mg of elemental calcium oral Daily MarianneG. Ben PHYSICIAN NEONATOLOGY 1,250 mg at 01/18/23 0855 dextromethorphan-guaiFENesin (ROBITUSSIN-DM) 2-20 mg/mL syrup 10 mL 10 mL oral QID PRN Manisha Contreras NP enoxaparin (LOVENOX) syringe 40 mg 40 mg subcutaneous Daily-2099 Sabine Espitia MD famotidine (PEPCID) tablet 20 mg 20 mg oral Daily Manisha Contreras PHYSICIAN NEONATOLOGY 20 mg at 01/18/23 0855 fluticasone furoate-vilanteroL (BREO ELLIPTA) 200-25 mcg/dose inhaler 1 puff 1 puff inhalation Daily (RT) Sol Lincoln MD fluticasone propionate (FLONASE) 50 mcg/actuation nasal spray 1 spray 1 spray each nostril BID PRN Manisha Contreras NP ipratropium-albuteroL (DUO-NEB) 0.5-2.5 mg/3 mL nebulizer solution 3 mL 3 mL nebulization Q4H PRN (RT) Manisha Contreras, PHYSICIAN NEONATOLOGY 3 mL at 01/16/23 1821 metoprolol XL (TOPROL-XL) extended release tablet 25 mg 25 mg oral Daily Sabine Espitia MD 25 mg at 01/18/23 0854 mirtazapine (REMERON) tablet 15 mg 15 mg oral Nightly Manisha Contreras, PHYSICIAN NEONATOLOGY 15 mg at 01/17/23 2147 ondansetron (ZOFRAN) injection 4 mg 4 mg intravenous Q8H PRN Samra Watt MD ramelteon (ROZEREM) tablet 8 mg 8 mg oral Nightly PRN Samra Watt MD Labs: Recent Labs Lab Units 01/18/23 0550 01/16/23 0501 SODIUM mmol/L 139 143 POTASSIUM PLASMA mmol/L 4.1 4.5 CHLORIDE mmol/L 110 113* CO2 mmol/L 20* 23 BUN SERUM mg/dL 15 17 CREATININE mg/dL 0.65 0.65 [id number] mL/min/1.73 m2 95 95 GLUCOSE mg/dL 84 101 CALCIUM mg/dL 8.1* 8.1* ALBUMIN g/dL -- 3.6 Recent Labs Lab Units 01/16/23 0501 ALK PHOS Units/L 72 BILIRUBIN TOTAL mg/dL 0.3 TOTAL PROTEIN g/dL 6.6 ALT Units/L 11 AST Units/L 27 Recent Labs Lab Units 01/16/23 0501 01/15/23 2150 WBC K/cumm 15.6* 14.6* HEMOGLOBIN g/dL 13.0 13.2 HEMATOCRIT % 40.8 39.2 PLATELETS K/cumm 247 258 Recent Labs Lab Units 01/15/23 2150 INR 1.2 No results found for: TSH, T3FREE, FREET4 Lab Results Component Value Date CHOL 195 01/16/2023 TRIG 105 01/16/2023 HDL 67 01/16/2023 LDLCALC 107 01/16/2023 No results found for: TROPONINT Telemetry: Cardiac Rhythm: Normal sinus rhythm (01/18/23 0800) Cardiology Testing: ProBNP: EKG: Echocardiogram: Stress Test: Cardiac Cath: 01/17 Impression: 1. Normal left ventricular ejection fraction with a focal area of anterolateral akinesis. 2. Insignificant coronary artery disease Impression: NSTEMI Hypertension COPD with exacerbation Plan: Catheterization as above Continue Norvasc and metoprolol Okay for discharge per Cardiology with follow-up in 1 month CC: Torito Gonzalez MD Phan, Samra Weller MD ACTIVITIES COACH * Josh Buchanan MD - 01/18/2023 11:09 AM CST Pulmonary Daily Progress Chief complaint/reason for consult: Hx of COPD and TOOTIE on 3 LPM NC . Interval History: Pt had LHC 01/17 showing insignificant CAD with focal anterolateral akinesis Comfortable on RA this am Nocturnal oximetry on RA 01/17: time <88%, 3:10 min Has oxygen at home; self monitors SaO2 and uses prn She is followed by Dr Collier, Pulmonary at [facility]' Had sinus surgery 2 weeks ago; recently started on Dupixent for nasal polyposis, has only received one dose Notes ongoing sinus drainage and occasional cough Presenting History: Mrs. Dsouza is a 67 y/o CF who carries a history of COPD and TOOTIE who presented to an OSH ER with complaints of chest pain and was then transferred to [facility] for higher level of careand intervention. Of note she had a history of COVID in July 2022. After she was discharged home she was on supplemental O2 but had not been using it regularly. She had sinus surgery on 01/05/23, which is her second one, she has nasal polyps and she was started on Dupixent on 01/13/23. She continues to have post nasal drainage. She has been checking her O2 regularly. She had not been on O2 prior to COVID in 07/2022, after that she has intermittently required it. She also had Flu A back in 11/16 22. She had been feeling well until 01/14 around 1 pm when she took a nap and then woke up short of breath. She then placed her O2 at 2 LPM on and used her rescue inhaler and did a breathing treatment. When she had no improvement in symptoms she called EMS. Reportedly her O2 sat was 82% prior to placing O2 on. EMS gave her another breathing treatment. She denied having chest pain but did have somechest pressure that was substernal and made it difficult for her to breath. She has a history of coronary vasospasms. She had a sleep study done at [facility] that showed an AHI 5.1, lowest SpO2 87% and RLS. She is a former smoker. She started smoking at age 10 and quit about 15 years ago. She smoked 1.5 ppd. She had been on Advair however had not refilled due to the cost of the medication. She does have her albuterol and DuoNebs. She only uses when she is short of breath and needs rescue. Reports she never was told she has asthma as a child. She did have some issues though with seasonal allergies but was never diagnosed with asthma. Allergies: Allergies Allergen Reactions Amoxicillin Stomach upset Medications: Scheduled Meds:amLODIPine, 5 mg, oral, Daily aspirin, 81 mg, oral, Daily benzonatate, 200 mg, oral, TID calcium carbonate, 500 mg of elemental calcium, oral, Daily enoxaparin, 40 mg, subcutaneous, Daily-2100 famotidine, 20 mg, oral, Daily fluticasone furoate-vilanteroL, 1 puff, inhalation, Daily (RT) metoprolol XL, 25 mg, oral, Daily mirtazapine, 15 mg, oral, Nightly Continuous Infusions: PRN Meds:. acetaminophen albuterol HFA dextromethorphan-guaiFENesin fluticasone propionate ipratropium-albuteroL ondansetron ramelteon ROS Above review of system reviewed on 01/18/2023 Vitals: Vitals: 01/17/23 2253 01/18/23 0400 01/18/23 0800 01/18/23 0828 BP: 118/68 129/65 100/62 BP Location: Right arm Right arm Right arm Patient Position: Lying Lying Lying;HOB 30 degrees Pulse: 77 77 81 86 Resp: 18 18 Temp: 36.8 ??C (98.2 ??F) 36.5 ??C (97.7 ??F) 36.7 ??C (98 ??F) TempSrc: Oral Oral Oral SpO2: 91% 93% 91% Weight: Height: Temp (24hrs), Av.7 ??C (98 ??F), Min:36.3 ??C (97.3 ??F), Max:37.5 ??C (99.5 ??F) Intake/Output Summary (Last 24 hours) at 01/18/2023 1109 Last data filed at 01/17/2023 2100 Gross per 24 hour Intake 518 ml Output 1400 ml Net -882 ml Physical Exam Constitutional: General: She is not in acute distress. Appearance: She is well-developed. HENT: Head: Normocephalic and atraumatic. Eyes: Conjunctiva/sclera: Conjunctivae normal. Neck: Thyroid: No thyromegaly. Cardiovascular: Rate and Rhythm: Normal rate and regular rhythm. Heart sounds: No murmur heard. No friction rub. Pulmonary: Effort: Pulmonary effort is normal. No respiratory distress. Breath sounds: No stridor. Decreased breath sounds present. No wheezing or rales. Abdominal: General: Bowel sounds are normal. Palpations: Abdomen is soft. Neurological: Mental Status: She is alert and oriented to person, place, and time. Lab/Radiology/Diagnostic Review: Labs: Recent Labs Lab Units 01/16/23 0501 01/15/23 2150 WBC K/cumm 15.6* 14.6* HEMOGLOBIN g/dL 13.0 13.2 HEMATOCRIT % 40.8 39.2 PLATELETS K/cumm 247 258 NEUTROS PCT % 66.6 -- LYMPHS PCT % 23.3 -- MONOS PCT % 9.2 -- EOS PCT % 0.1 -- Recent Labs Lab Units 01/18/23 0550 01/16/23 0501 SODIUM mmol/L 139 143 POTASSIUM PLASMA mmol/L 4.1 4.5 CHLORIDE mmol/L 110 113* CO2 mmol/L 20* 23 ANIONGAP mmol/L 9 7 GLUCOSE mg/dL 84 101 BUN SERUM mg/dL 15 17 CREATININE mg/dL 0.65 0.65 CALCIUM mg/dL 8.1* 8.1* ALBUMIN g/dL -- 3.6 ALK PHOS Units/L -- 72 ALT Units/L -- 11 AST Units/L -- 27 BILIRUBIN TOTAL mg/dL -- 0.3 Imaging: CT Chest PE protocol 01/16/23: No evidence of PE on my read. No infiltrate or consolidation. Some bronchial wall thickening. Other diagnostic tests: Echo 01/17: grade I LVDD, EF 52%, akinetic mid anterolateral segment I have personally reviewed above laboratory findings, chest imaging, and diagnostic tests 01/18/2023 Assessment and Plan: Very severe COPD with possible asthma component Nasal polyps NSTEMI: insignificant CAD on [facility] 01/17 Acute hypoxic respiratory insufficiency Nocturnal hypoxemia Recs: - Increase to Breo 200 - May be better as an outpatient to have on Perforomist and Pulmicort nebs given the cost of the Advair and inability to afford prior to meeting her deductible vs doing the nebs through Medicare partB. Will defer to her outpatient bottom cager. - Hold on systemic steroids at this time - Wean supplemental O2 for SpO2 > 89% - will repeat an overnight nocturnal O2 study: no extended desaturation noted, no nocturnal oxygen required -resume Dupixent as outpt -pt to f/u with Pulmonary and ENT in [place] after d/c ACTIVITIES COACH * Samra Watt MD - 01/17/2023 3:55 PM CST Daily Progress Hospital day: Hospital Day: 3 Patient Information Name: Gabbie Dsouza Date of : 1955 (67 y.o.) Date of Service: 01/17/2023 at 3:55 PM CHIEF COMPLAINT/ HOSPITAL COURSE For note patient was presented in the ED for to outside hospital with shortness of breath; was diagnosed with non STEMI and transferred to [facility] for higher level of care. 01/17: pt is doing well; came back from cardiac catheterization denies any chest pain; sitting up eating lunch; spouse is nearby; patient has no new complaint a question REVIEW OF SYSTEM: Constitutional: Denies fevers, chills. Respiratory: Denies shortness of breath, cough. Cardiovascular: Denies chest pain, palpitations. Gastrointestinal: Denies abdominal pain, loss of appetite, nausea, constipation. Genitourinary: Denies dysuria, frequency, urgency. Musculoskeletal: Denies myalgias, swollen joints. amLODIPine, 5 mg, oral, Daily aspirin, 81 mg, oral, Daily benzonatate, 200 mg, oral, TID calcium carbonate, 500 mg of elemental calcium, oral, Daily enoxaparin, 40 mg, subcutaneous, Daily-2100 famotidine, 20 mg, oral, Daily [START ON 01/18/2023] fluticasone furoate-vilanteroL, 1 puff, inhalation, Daily (RT) metoprolol XL, 25 mg, oral, Daily mirtazapine, 15 mg, oral, Nightly acetaminophen, 650 mg albuterol HFA, 2 puff dextromethorphan-guaiFENesin, 10 mL fluticasone propionate, 1 spray ipratropium-albuteroL, 3 mL, 3 mL at 01/16/23 1821 ondansetron, 4 mg ramelteon, 8 mg OBJECTIVE Vitals: Most Recent : Vitals: 01/17/23 1200 01/17/23 1236 01/17/23 1300 01/17/23 1425 BP: 109/74 94/63 (!) 89/57 BP Location: Right arm Right arm Right arm Patient Position: Lying Lying Lying Pulse: 64 68 79 78 Resp: Temp: 36.3 ??C (97.3 ??F) 36.7 ??C (98.1 ??F) 36.7 ??C (98 ??F) TempSrc: Oral Oral Oral SpO2: 95% 93% 92% Weight: Height: 24hr Min/Max: Temp Min: 36.3 ??C (97.3 ??F) Max: 36.7 ??C (98.1 ??F) Pulse Min: 64 Max: 95 BP Min: 89/57 Max: 127/79 Resp Min: 16 Max: 20 SpO2 Min: 92 % Max: 95 % Intake/Output Summary (Last 24 hours) at 01/17/2023 1555 Last data filed at 01/17/2023 1425 Gross per 24 hour Intake 658 ml Output 2000 ml Net -1342 ml PHYSICAL EXAM: Constitutional: Awake, alert, of sound mind. Non-distressed on room air. Non- toxic appearing. Thin Eyes: EOMI. Conjunctiva are normal. ENMT: Face, External ears, and Nose are normal appearing. Hearing is intact bilaterally. Cardiovascular: Heart Rate and Rhythm Regular. No Murmur. No Jugular Venous Distention. No Carotid Bruit. Distal pulses are intact in the upper extremity. No edema in the lower extremities. Respiratory: Breath sounds are appropriate in all lung link. No wheezing. No rhonchi; on 2L NC intestinal: Soft. Non-tender without guarding. Non-distended. No mass or organomegaly. No hernia appreciated. Skin: Warm, Dry. Capillary refill is brisk. Musculoskeletal: No inflamed joints. No significant joint deformities. Neurological: No gross neurological deficits appreciated. Psychiatric: Mood and affect are appropriate. LDA: Peripheral IV 01/15/23 20 G Right Antecubital (Active) Placement Date/Time: 01/15/231999 Placed by External Staff?: Other hospital Type: Angiocath Size (Gauge): 20 G Location Orientation: Right Location: Antecubital Number of days: 0 Peripheral IV 01/15/23 20 G Left;Proximal;Posterior Forearm (Active) Placement Date/Time: 01/15/232317 IV Change Due: 01/22/23 Type: Angiocath Size (Gauge): 20 G Location Orientation: Left;Proximal;Posterior Location: Forearm Site Prep: Alcohol Technique: Anatomical landmarks Inserted by: marilyn Insertion at... Number of days: 0 Lab/Radiology/Diagnostic Review: I have reviewed the pertinent laboratory, radiographic, and other diagnostic studies. Recent Results (from the past 48 hour(s)) Protime-INR Collection Time: 01/15/23 9:50 PM Result Value Ref Range PT 13.1 9.2 - 13.5 sec INR 1.2 0.9 - 1.2 CBC without differential Collection Time: 01/15/23 9:50 PM Result Value Ref Range WBC 14.6 (H) 3.8 - 9.9 K/cumm Hgb 13.2 11.9 - 15.5 g/dL Hct 39.2 35.6 - 45.5 % Plt 258 150 - 400 K/cumm MPV 10.3 9.1 - 12.3 fL RBC 4.41 3.90 - 5.20 M/cumm MCV 88.9 81.3 - 96.4 fL MCH 29.9 27.1 - 33.3 pg MCHC 33.7 32.3 - 35.7 g/dL RDW CV 13.9 11.1 - 14.9 % RDW SD 45.6 35.7 - 48.1 fL NRBC abs 0.00 0.00 - 0.01 K/cumm aPTT Collection Time: 01/15/23 9:50 PM Result Value Ref Range aPTT 27 27 - 37 sec CBC with auto differential Collection Time: 01/16/23 5:01 AM Result Value Ref Range WBC 15.6 (H) 3.8 - 9.9 K/cumm Hgb 13.0 11.9 - 15.5 g/dL Hct 40.8 35.6 - 45.5 % Plt 247 150 - 400 K/cumm MPV 10.6 9.1 - 12.3 fL RBC 4.43 3.90 - 5.20 M/cumm MCV 92.1 81.3 - 96.4 fL MCH 29.3 27.1 - 33.3 pg MCHC 31.9 (L) 32.3 - 35.7 g/dL RDW CV 14.2 11.1 - 14.9 % RDW SD 48.2 (H) 35.7 - 48.1 fL NRBC abs 0.00 0.00 - 0.01 K/cumm Comprehensive metabolic panel Collection Time: 01/16/23 5:01 AM Result Value Ref Range Sodium 143 135 - 145 mmol/L Potassium, pl 4.5 3.3 - 4.9 mmol/L Chloride 113 (H) 97 - 110 mmol/L CO2 23 22 - 32 mmol/L Anion gap 7 2 - 15 mmol/L BUN 17 8 - 25 mg/dL Creatinine 0.65 0.60 - 1.10 mg/dL Glucose 101 70 - 199 mg/dL Calcium 8.1 (L) 8.5 - 10.3 mg/dL Bilirubin, total 0.3 0.1 - 1.2 mg/dL Protein, pl 6.6 6.5 - 8.5 g/dL Albumin 3.6 3.5 - 5.0 g/dL Alk phos 72 40 - 130 Units/L ALT 11 7 - 45 Units/L AST 27 10 - 45 Units/L aPTT Collection Time: 01/16/23 5:01 AM Result Value Ref Range aPTT 32 27 - 37 sec Troponin T high-sensitivity series (baseline, 2hr, 4hr, 6hr) Collection Time: 01/16/23 5:01 AM Result Value Ref Range Trop T hs 228 (Critical) <=14 ng/L Differential, auto Collection Time: 01/16/23 5:01 AM Result Value Ref Range Neutrophil abs 10.4 (H) 1.7 - 6.5 K/cumm Imm gran abs 0.1 0.0 - 0.1 K/cumm Lymphocyte abs 3.6 (H) 0.8 - 3.3 K/cumm Monocyte abs 1.4 (H) 0.2 - 0.8 K/cumm Eosinophil abs 0.0 0.0 - 0.5 K/cumm Basophil abs 0.1 0.0 - 0.1 K/cumm Neutrophil pct 66.6 % Imm gran pct 0.5 % Lymphocyte pct 23.3 % Monocyte pct 9.2 % Eosinophil pct 0.1 % Basophil pct 0.3 % eGFR Collection Time: 01/16/23 5:01 AM Result Value Ref Range eGFR 95 mL/min/1.73 m2 Urinalysis reflex to microscopic and culture Urine Collection Time: 01/16/23 5:45 AM Specimen: Urine Result Value Ref Range Color, ur Yellow Yellow Clarity, ur Clear Clear Specific gravity, ur 1.012 1.003 - 1.030 pH, urine 6.0 Protein, ur ql Negative Negative Glucose, ur ql Negative Negative Ketones, ur Trace Negative Bilirubin, ur Negative Negative Blood, ur 1+ (A) Negative Urobilinogen, ur <2.0 <2.0 mg/dL Nitrite, ur Negative Negative Leukocyte esterase, ur 1+ (A) Negative UA reflex comment Reflex to microscopic UA will be performed. Urinalysis, microscopic only Collection Time: 01/16/23 5:45 AM Result Value Ref Range WBC, ur 0-5 0 - 5 /HPF RBC, ur 0-2 0 - 2 /HPF Epithelial cells, squamous, ur 1-5 0 - 5 /HPF Bacteria, ur 1+ (A) Culture Reflex Comment Reflex conditions for urine culture (WBC >10) not met. Troponin T high-sensitivity 2-hour Collection Time: 01/16/23 7:31 AM Result Value Ref Range Trop T hs 208 (Critical) <=14 ng/L Trop T hs pct delta -9 % Trop T hs interp Equivocal Troponin T high-sensitivity 4-hour Collection Time: 01/16/23 8:36 AM Result Value Ref Range Trop T hs 207 (Critical) <=14 ng/L Trop T hs pct delta -9 % Trop T hs interp Equivocal Troponin T high-sensitivity 6-hour Collection Time: 01/16/23 11:22 AM Result Value Ref Range Trop T hs 186 (H) <=14 ng/L Trop T hs pct delta -18 % Trop T hs interp Equivocal Lipid panel Collection Time: 01/16/23 11:22 AM Result Value Ref Range Cholesterol 195 30 - 199 mg/dL Triglycerides 105 <=149 mg/dL HDL 67 >=40 mg/dL LDL, calculated 107 <=129 mg/dL Non-HDL Cholesterol 128 mg/dL Chol/HDL ratio 3 aPTT Collection Time: 01/16/23 11:30 AM Result Value Ref Range aPTT 63 (H) 27 - 37 sec aPTT Collection Time: 01/16/23 6:14 PM Result Value Ref Range aPTT 46 (H) 27 - 37 sec aPTT Collection Time: 01/17/23 1:22 AM Result Value Ref Range aPTT 80 (H) 27 - 37 sec aPTT Collection Time: 01/17/23 7:05 AM Result Value Ref Range aPTT 72 (H) 27 - 37 sec ASSESSMENT/PLAN SOB (?) resolved; on NC; on exam doesn't seemed to be due to COPD exacerbation. CT showed no acute PE; diffuse bronchial thickening with the lower lobe base predominant mucoid impaction and subsegmental atelectasis; NSTEMI. (Trops here are elevated no significant delta changes). Cardio consulted; Cardiac catheterization with negative; HTN. BP are stable. HLD. Statin Centrilobular emphysema. On breo; continue with prn; TOOTIE. Patient does not use a CPAP at home; pulmonology consulted Order for nocturnal study for today. Order home oxygen assessment for tomorrow Allergic rhinitis Full Code DVT Prophylaxis with - lovenox D/W patient, family, and RN Medical Decision Making complexity: moderate Discharge disposition:anticipate d/c tomorrow. Samra Watt MD 01/17/23 3:55 PM ACTIVITIES COACH * Marah Laura RN - 01/17/2023 12:40 PM CST CM attempted to meet with pt to complete assessment for initial discharge planning. Pt unavailable with nursing staff at this time. Will re-attempt later as time allows. OZ Rodriguez-RN [facility] [phone] ACTIVITIES COACH * Samra Watt MD - 01/16/2023 1:25 PM CST Daily Progress Hospital day: Hospital Day: 2 Patient Information Name: Gabbie Dsouza Date of : 1955 (67 y.o.) Date of Service: 01/16/2023 at 1:25 PM CHIEF COMPLAINT/ HOSPITAL COURSE For note patient was presented in the ED for to outside hospital with shortness of breath; was diagnosed with non STEMI and transferred to [facility] for higher level of care. 01/16 patient was seen at bedside he is doing okay on 30 L nasal cannula denies any chest pain or shortness of breath today patient had history of COVID in July; to stand she was sent home with some oxygen and use it intermittently; patient was a former smoker; Daughter and son-in-law at bedside. We discussed the case in detail. All of their concerns were addressed at bedside. REVIEW OF SYSTEM: Constitutional: Denies fevers, chills. Respiratory: Denies shortness of breath, cough. Cardiovascular: Denies chest pain, palpitations. Gastrointestinal: Denies abdominal pain, loss of appetite, nausea, constipation. Genitourinary: Denies dysuria, frequency, urgency. Musculoskeletal: Denies myalgias, swollen joints. amLODIPine, 5 mg, oral, Daily aspirin, 81 mg, oral, Daily benzonatate, 200 mg, oral, TID calcium carbonate, 500 mg of elemental calcium, oral, Daily famotidine, 20 mg, oral, Daily fluticasone furoate-vilanteroL, 1 puff, inhalation, Daily (RT) mirtazapine, 15 mg, oral, Nightly albuterol HFA, 2 puff dextromethorphan-guaiFENesin, 10 mL fluticasone propionate, 1 spray heparin, 2,000 Units OR heparin, 3,000 Units, 3,000 Units at 01/16/23 0616 ipratropium-albuteroL, 3 mL, 3 mL at 01/16/23 0833 OBJECTIVE Vitals: Most Recent : Vitals: 01/15/23 2315 01/16/23 0429 01/16/23 0700 01/16/23 0811 BP: 92/63 106/67 104/70 BP Location: Left arm Left arm Right arm Patient Position: Lying Lying Lying Pulse: 104 79 79 78 Resp: 18 18 20 Temp: 36.7 ??C (98.1 ??F) 36.8 ??C (98.2 ??F) 36.4 ??C (97.5 ??F) TempSrc: Oral Oral Oral SpO2: 95% 96% Weight: Height: 24hr Min/Max: Temp Min: 36.4 ??C (97.5 ??F) Max: 37.1 ??C (98.7 ??F) Pulse Min: 78 Max: 104 BP Min: 92/63 Max: 106/67 Resp Min: 18 Max: 20 SpO2 Min: 92 % Max: 96 % Intake/Output Summary (Last 24 hours) at 01/16/2023 1325 Last data filed at 01/16/2023 1244 Gross per 24 hour Intake 240 ml Output 1100 ml Net -860 ml PHYSICAL EXAM: Constitutional: Awake, alert, of sound mind. Non-distressed on room air. Non- toxic appearing. Thin Eyes: EOMI. Conjunctiva are normal. ENMT: Face, External ears, and Nose are normal appearing. Hearing is intact bilaterally. Cardiovascular: Heart Rate and Rhythm Regular. No Murmur. No Jugular Venous Distention. No Carotid Bruit. Distal pulses are intact in the upper extremity. No edema in the lower extremities. Respiratory: Breath sounds are appropriate in all lung link. No wheezing. No rhonchi; on 3L NC intestinal: Soft. Non-tender without guarding. Non-distended. No mass or organomegaly. No hernia appreciated. Skin: Warm, Dry. Capillary refill is brisk. Musculoskeletal: No inflamed joints. No significant joint deformities. Neurological: No gross neurological deficits appreciated. Psychiatric: Mood and affect are appropriate. LDA: Peripheral IV 01/15/23 20 G Right Antecubital (Active) Placement Date/Time: 01/15/231999 Placed by External Staff?: Other hospital Type: Angiocath Size (Gauge): 20 G Location Orientation: Right Location: Antecubital Number of days: 0 Peripheral IV 01/15/23 20 G Left;Proximal;Posterior Forearm (Active) Placement Date/Time: 01/15/232317 IV Change Due: 01/22/23 Type: Angiocath Size (Gauge): 20 G Location Orientation: Left;Proximal;Posterior Location: Forearm Site Prep: Alcohol Technique: Anatomical landmarks Inserted by: marilyn Insertion at... Number of days: 0 Lab/Radiology/Diagnostic Review: I have reviewed the pertinent laboratory, radiographic, and other diagnostic studies. Recent Results (from the past 48 hour(s)) Protime-INR Collection Time: 01/15/23 9:50 PM Result Value Ref Range PT 13.1 9.2 - 13.5 sec INR 1.2 0.9 - 1.2 CBC without differential Collection Time: 01/15/23 9:50 PM Result Value Ref Range WBC 14.6 (H) 3.8 - 9.9 K/cumm Hgb 13.2 11.9 - 15.5 g/dL Hct 39.2 35.6 - 45.5 % Plt 258 150 - 400 K/cumm MPV 10.3 9.1 - 12.3 fL RBC 4.41 3.90 - 5.20 M/cumm MCV 88.9 81.3 - 96.4 fL MCH 29.9 27.1 - 33.3 pg MCHC 33.7 32.3 - 35.7 g/dL RDW CV 13.9 11.1 - 14.9 % RDW SD 45.6 35.7 - 48.1 fL NRBC abs 0.00 0.00 - 0.01 K/cumm aPTT Collection Time: 01/15/23 9:50 PM Result Value Ref Range aPTT 27 27 - 37 sec CBC with auto differential Collection Time: 01/16/23 5:01 AM Result Value Ref Range WBC 15.6 (H) 3.8 - 9.9 K/cumm Hgb 13.0 11.9 - 15.5 g/dL Hct 40.8 35.6 - 45.5 % Plt 247 150 - 400 K/cumm MPV 10.6 9.1 - 12.3 fL RBC 4.43 3.90 - 5.20 M/cumm MCV 92.1 81.3 - 96.4 fL MCH 29.3 27.1 - 33.3 pg MCHC 31.9 (L) 32.3 - 35.7 g/dL RDW CV 14.2 11.1 - 14.9 % RDW SD 48.2 (H) 35.7 - 48.1 fL NRBC abs 0.00 0.00 - 0.01 K/cumm Comprehensive metabolic panel Collection Time: 01/16/23 5:01 AM Result Value Ref Range Sodium 143 135 - 145 mmol/L Potassium, pl 4.5 3.3 - 4.9 mmol/L Chloride 113 (H) 97 - 110 mmol/L CO2 23 22 - 32 mmol/L Anion gap 7 2 - 15 mmol/L BUN 17 8 - 25 mg/dL Creatinine 0.65 0.60 - 1.10 mg/dL Glucose 101 70 - 199 mg/dL Calcium 8.1 (L) 8.5 - 10.3 mg/dL Bilirubin, total 0.3 0.1 - 1.2 mg/dL Protein, pl 6.6 6.5 - 8.5 g/dL Albumin 3.6 3.5 - 5.0 g/dL Alk phos 72 40 - 130 Units/L ALT 11 7 - 45 Units/L AST 27 10 - 45 Units/L aPTT Collection Time: 01/16/23 5:01 AM Result Value Ref Range aPTT 32 27 - 37 sec Troponin T high-sensitivity series (baseline, 2hr, 4hr, 6hr) Collection Time: 01/16/23 5:01 AM Result Value Ref Range Trop T hs 228 (Critical) <=14 ng/L Differential, auto Collection Time: 01/16/23 5:01 AM Result Value Ref Range Neutrophil abs 10.4 (H) 1.7 - 6.5 K/cumm Imm gran abs 0.1 0.0 - 0.1 K/cumm Lymphocyte abs 3.6 (H) 0.8 - 3.3 K/cumm Monocyte abs 1.4 (H) 0.2 - 0.8 K/cumm Eosinophil abs 0.0 0.0 - 0.5 K/cumm Basophil abs 0.1 0.0 - 0.1 K/cumm Neutrophil pct 66.6 % Imm gran pct 0.5 % Lymphocyte pct 23.3 % Monocyte pct 9.2 % Eosinophil pct 0.1 % Basophil pct 0.3 % eGFR Collection Time: 01/16/23 5:01 AM Result Value Ref Range eGFR 95 mL/min/1.73 m2 Urinalysis reflex to microscopic and culture Urine Collection Time: 01/16/23 5:45 AM Specimen: Urine Result Value Ref Range Color, ur Yellow Yellow Clarity, ur Clear Clear Specific gravity, ur 1.012 1.003 - 1.030 pH, urine 6.0 Protein, ur ql Negative Negative Glucose, ur ql Negative Negative Ketones, ur Trace Negative Bilirubin, ur Negative Negative Blood, ur 1+ (A) Negative Urobilinogen, ur <2.0 <2.0 mg/dL Nitrite, ur Negative Negative Leukocyte esterase, ur 1+ (A) Negative UA reflex comment Reflex to microscopic UA will be performed. Urinalysis, microscopic only Collection Time: 01/16/23 5:45 AM Result Value Ref Range WBC, ur 0-5 0 - 5 /HPF RBC, ur 0-2 0 - 2 /HPF Epithelial cells, squamous, ur 1-5 0 - 5 /HPF Bacteria, ur 1+ (A) Culture Reflex Comment Reflex conditions for urine culture (WBC >10) not met. Troponin T high-sensitivity 2-hour Collection Time: 01/16/23 7:31 AM Result Value Ref Range Trop T hs 208 (Critical) <=14 ng/L Trop T hs pct delta -9 % Trop T hs interp Equivocal Troponin T high-sensitivity 4-hour Collection Time: 01/16/23 8:36 AM Result Value Ref Range Trop T hs 207 (Critical) <=14 ng/L Trop T hs pct delta -9 % Trop T hs interp Equivocal Troponin T high-sensitivity 6-hour Collection Time: 01/16/23 11:22 AM Result Value Ref Range Trop T hs 186 (H) <=14 ng/L Trop T hs pct delta -18 % Trop T hs interp Equivocal Lipid panel Collection Time: 01/16/23 11:22 AM Result Value Ref Range Cholesterol 195 30 - 199 mg/dL Triglycerides 105 <=149 mg/dL HDL 67 >=40 mg/dL LDL, calculated 107 <=129 mg/dL Non-HDL Cholesterol 128 mg/dL Chol/HDL ratio 3 aPTT Collection Time: 01/16/23 11:30 AM Result Value Ref Range aPTT 63 (H) 27 - 37 sec ASSESSMENT/PLAN SOB (?) resolved; on NC; on exam doesn't seemed to be due to COPD exacerbation. Will check CT chestto r/o PE. Continue to monitor. NSTEMI. (Trops here are elevated no significant delta changes). Cardio consulted; and planned for cardiac cath in AM; Will order npo after midnight. HTN. BP are stable. HLD. statin Centrilobular emphysema. On breo; continue with prn; TOOTIE. Patient does not use a CPAP at home; will consult pulmonology. Allergic rhinitis Full Code DVT Prophylaxis with - heparin drip D/W patient, family, and RN Medical Decision Making complexity: moderate Discharge disposition:pending hospital stay Samra Watt MD 01/16/23 1:25 PM ACTIVITIES COACH documented in this encounter H&P Notes * Sabine Espitia MD - 01/17/2023 10:21 AM CST I have reviewed the H&P, examined the patient, and endorse the findings as written. Plan of Care : Based on the above findings, I consider Gabbie Dsouza to be an acceptable risk for : Procedure(s): LEFT HEART CATHETERIZATION WITH CORONARY ANGIOGRAPHY AND WITH OR WITHOUT LEFT VENTRICULOGRAM 26604 ACTIVITIES COACH Source Note - Sabine Espitia MD - 01/16/2023 8:43 AM [facility]IDS ACTIVITIES COACH Cardiology Consult Reason for Consult: NSTEMI Requesting Provider: Samra Watt MD Subjective Patient is a 67 y.o. female with chief complaint of shortness of breath. HPI: the patient is a 67-year-old female who I have been following for coronary vasospasm. She had a cardiac catheterization in 2009 at [facility] which showed no significant coronary disease and she has been managed with amlodipine since. I last saw her and March of 2022 where she was doing well without angina. Over the all last 8 months the patient has been having recurrent respiratory issues including COVID pneumonia in July 2022 and influenza a in October of 2022. She had sinus surgery for recurrent polyps 2022 at [facility]. The patient woke from a nap on 01/14/2023 with acute shortness of breath. She placed her oxygen and used her rescue inhaler w ith no relief. She denied any chest pain. She presented to the ER at [facility] where she is found to be in respiratory failure. Her troponin was also elevated compatible with a non ST elevation [place]. her EKG however showed no acute ST-T changes. She is transferred here for further evaluation. This morning the patient feels well with no chest pain. She is wearing oxygen. She also reports a 50 lb weight loss over the last 2 years only partially intentional. She denies orthopnea PND pedal edema palpitations or syncope. Past Medical History: Diagnosis Date Dysphagia GERD (gastroesophageal reflux disease) HX OTHER MEDICAL 1976 ; Outcome: 7 lb(s) 2 oz Male HX OTHER MEDICAL 1970 ; Outcome: 7 lb(s) 4 oz Female Hypertension Past Surgical History: Procedure Laterality Date APPENDECTOMY 1995 Appendectomy CARDIAC CATHETERIZATION 2009 HEART CATH CATARACT EXTRACTION W/ INTRAOCULAR LENS IMPLANT 2017 COLONOSCOPY 12/06/2016 OTHER SURGICAL HISTORY 1976 : OTHER SURGICAL HISTORY 1970 : POLYPECTOMY TOTAL ABDOMINAL HYSTERECTOMY W/ BILATERAL SALPINGOOPHORECTOMY 1995 [facility] Medications Prior to Admission Medication Sig Dispense Refill Last Dose albuterol HFA (PROVENTIL HFA,VENTOLIN HFA,PROAIR HFA) 90 mcg/actuation inhaler albuterol sulfate HFA 90 mcg/actuation aerosol inhaler INHALE 1 TO 2 PUFFS BY MOUTH EVERY 6 HOURS NEEDED FOR WHEEZING 01/14/2023 amLODIPine (NORVASC) 5 mg tablet Take 1 tablet (5 mg total) by mouth daily 90 tablet 3 01/14/2023 aspirin 81 mg tablet take 1 tablet by oral route every day 0 0 01/14/2023 calcium carbonate (CALCIUM 600 ORAL) Take by mouth 01/14/2023 cephalexin (KEFLEX) 500 mg capsule Take 500 mg by mouth every 6 (six) hours Unknown denosumab (PROLIA) 60 mg/mL syringe Inject 1 mL (60 mg total) under the skin once for 1 dose 1 mL 0 famotidine (PEPCID) 20 mg tablet Take 20 mg by mouth daily 01/14/2023 methylPREDNISolone (MEDROL DOSEPACK) 4 mg Dosepack methylprednisolone 4 mg tablets in a dose pack Unknown Current Facility-Administered Medications: albuterol HFA (PROVENTIL HFA,VENTOLIN HFA,PROAIR HFA) 90 mcg/actuation inhaler 2 puff, 2 puff, inhalation, Q6H PRN (RT), Manisha Contreras NP amLODIPine (NORVASC) tablet 5 mg, 5 mg, oral, Daily, Manisha Contreras NP aspirin enteric coated tablet 81 mg, 81 mg, oral, Daily, Manisha Contreras NP benzonatate (TESSALON) capsule 200 mg, 200 mg, oral, TID, Manisha Contreras NP, 200 mg at 01/15/23 2239 calcium carbonate (OS-YVROSE) tablet 1,250 mg, 500 mg of elemental calcium, oral, Daily, Manisha Contreras NP dextromethorphan-guaiFENesin (ROBITUSSIN-DM) 2-20 mg/mL syrup 10 mL, 10 mL, oral, QID PRN, Manisha Contreras NP famotidine (PEPCID) tablet 20 mg, 20 mg, oral, Daily, Manisha Contreras NP fluticasone furoate-vilanteroL (BREO ELLIPTA) 100-25 mcg/dose inhaler 1 puff, 1 puff, inhalation, Daily (RT), Manisha Contreras NP, 1 puff at 01/16/23 0833 fluticasone propionate (FLONASE) 50 mcg/actuation nasal spray 1 spray, 1 spray, each nostril, BID PRN, Manisha Contreras NP heparin 5,000 unit/mL injection 2,000 Units, 2,000 Units, intravenous, Q6H PRN OR heparin 5,000unit/mL injection 3,000 Units, 3,000 Units, intravenous, Q6H PRN, Manisha Contreras NP, 3,000 Units at 01/16/23 0616 heparin in 0.45% sodium chloride 25,000 units/250 mL (100 units/mL) infusion (premix), 0-33 Units/kg/hr, intravenous, Titrated, Manisha Contreras NP, Last Rate: 8.43 mL/hr at 01/16/23 0615, 15 Units/kg/hr at 01/16/23 0615 ipratropium-albuteroL (DUO-NEB) 0.5-2.5 mg/3 mL nebulizer solution 3 mL, 3 mL, nebulization, Q4H PRN (RT), Manisha Contreras, YAHIR, 3 mL at 01/16/23 0833 mirtazapine (REMERON) tablet 15 mg, 15 mg, oral, Nightly, Manisha Contreras, PHYSICIAN NEONATOLOGY, 15 mg at 01/15/23 2239 Allergies Allergen Reactions Amoxicillin Stomach upset Social History Tobacco Use Smoking status: Former Smokeless tobacco: Never Tobacco comments: Smoking History Packs/day: 0.25 Packs Substance and Sexual Activity Drug use: No Sexual activity: Not Currently Alcohol Use: Not At Risk Frequency of Alcohol Consumption: Monthly or less Average Number of Drinks: 1 or 2 Frequency of Binge Drinking: Less than monthly Family History Problem Relation Age of Onset Coronary artery disease Mother Coronary artery disease; Hypertension Mother Hypertension; Congenital heart disease Brother Congenital heart disease; Diabetes Brother Diabetes mellitus; Hypertension Brother Hypertension; Review of Systems: Review of systems per HPI and otherwise all other systems are negative Objective Vitals: 24hr Min/Max: Temp Min: 36.4 ??C (97.5 ??F) Max: 37.1 ??C (98.7 ??F) Pulse Min: 79 Max: 104 BP Min: 92/63 Max: 106/67 Resp Min: 18 Max: 20 SpO2 Min: 92 % Max: 96 % Most Recent: Vitals: 01/16/23 0700 BP: 104/70 Pulse: 79 Resp: 20 Temp: 36.4 ??C (97.5 ??F) SpO2: 96% I/O last 2 completed shifts: In: - Out: 500 [Urine:500] No intake/output data recorded. Physical Exam: General appearance: appears stated age and cooperative [...] lesions Neurologic: Alert and oriented x4, non-focal Lab/Radiology/Diagnostic Review: Laboratory review: Lab results in the last 24 hours: Recent Results (from the past 24 hour(s)) Protime-INR Collection Time: 01/15/23 9:50 PM Result Value Ref Range PT 13.1 9.2 - 13.5 sec INR 1.2 0.9 - 1.2 CBC without differential Collection Time: 01/15/23 9:50 PM Result Value Ref Range WBC 14.6 (H) 3.8 - 9.9 K/cumm Hgb 13.2 11.9 - 15.5 g/dL Hct 39.2 35.6 - 45.5 % Plt 258 150 - 400 K/cumm MPV 10.3 9.1 - 12.3 fL RBC 4.41 3.90 - 5.20 M/cumm MCV 88.9 81.3 - 96.4 fL MCH 29.9 27.1 - 33.3 pg MCHC 33.7 32.3 - 35.7 g/dL RDW CV 13.9 11.1 - 14.9 % RDW SD 45.6 35.7 - 48.1 fL NRBC abs 0.00 0.00 - 0.01 K/cumm aPTT Collection Time: 01/15/23 9:50 PM Result Value Ref Range aPTT 27 27 - 37 sec CBC with auto differential Collection Time: 01/16/23 5:01 AM Result Value Ref Range WBC 15.6 (H) 3.8 - 9.9 K/cumm Hgb 13.0 11.9 - 15.5 g/dL Hct 40.8 35.6 - 45.5 % Plt 247 150 - 400 K/cumm MPV 10.6 9.1 - 12.3 fL RBC 4.43 3.90 - 5.20 M/cumm MCV 92.1 81.3 - 96.4 fL MCH 29.3 27.1 - 33.3 pg MCHC 31.9 (L) 32.3 - 35.7 g/dL RDW CV 14.2 11.1 - 14.9 % RDW SD 48.2 (H) 35.7 - 48.1 fL NRBC abs 0.00 0.00 - 0.01 K/cumm Comprehensive metabolic panel Collection Time: 01/16/23 5:01 AM Result Value Ref Range Sodium 143 135 - 145 mmol/L Potassium, pl 4.5 3.3 - 4.9 mmol/L Chloride 113 (H) 97 - 110 mmol/L CO2 23 22 - 32 mmol/L Anion gap 7 2 - 15 mmol/L BUN 17 8 - 25 mg/dL Creatinine 0.65 0.60 - 1.10 mg/dL Glucose 101 70 - 199 mg/dL Calcium 8.1 (L) 8.5 - 10.3 mg/dL Bilirubin, total 0.3 0.1 - 1.2 mg/dL Protein, pl 6.6 6.5 - 8.5 g/dL Albumin 3.6 3.5 - 5.0 g/dL Alk phos 72 40 - 130 Units/L ALT 11 7 - 45 Units/L AST 27 10 - 45 Units/L aPTT Collection Time: 01/16/23 5:01 AM Result Value Ref Range aPTT 32 27 - 37 sec Troponin T high-sensitivity series (baseline, 2hr, 4hr, 6hr) Collection Time: 01/16/23 5:01 AM Result Value Ref Range Trop T hs 228 (Critical) <=14 ng/L Differential, auto Collection Time: 01/16/23 5:01 AM Result Value Ref Range Neutrophil abs 10.4 (H) 1.7 - 6.5 K/cumm Imm gran abs 0.1 0.0 - 0.1 K/cumm Lymphocyte abs 3.6 (H) 0.8 - 3.3 K/cumm Monocyte abs 1.4 (H) 0.2 - 0.8 K/cumm Eosinophil abs 0.0 0.0 - 0.5 K/cumm Basophil abs 0.1 0.0 - 0.1 K/cumm Neutrophil pct 66.6 % Imm gran pct 0.5 % Lymphocyte pct 23.3 % Monocyte pct 9.2 % Eosinophil pct 0.1 % Basophil pct 0.3 % eGFR Collection Time: 01/16/23 5:01 AM Result Value Ref Range eGFR 95 mL/min/1.73 m2 Urinalysis reflex to microscopic and culture Urine Collection Time: 01/16/23 5:45 AM Specimen: Urine Result Value Ref Range Color, ur Yellow Yellow Clarity, ur Clear Clear Specific gravity, ur 1.012 1.003 - 1.030 pH, urine 6.0 Protein, ur ql Negative Negative Glucose, ur ql Negative Negative Ketones, ur Trace Negative Bilirubin, ur Negative Negative Blood, ur 1+ (A) Negative Urobilinogen, ur <2.0 <2.0 mg/dL Nitrite, ur Negative Negative Leukocyte esterase, ur 1+ (A) Negative UA reflex comment Reflex to microscopic UA will be performed. Urinalysis, microscopic only Collection Time: 01/16/23 5:45 AM Result Value Ref Range WBC, ur 0-5 0 - 5 /HPF RBC, ur 0-2 0 - 2 /HPF Epithelial cells, squamous, ur 1-5 0 - 5 /HPF Bacteria, ur 1+ (A) Culture Reflex Comment Reflex conditions for urine culture (WBC >10) not met. Troponin T high-sensitivity 2-hour Collection Time: 01/16/23 7:31 AM Result Value Ref Range Trop T hs 208 (Critical) <=14 ng/L Trop T hs pct delta -9 % Trop T hs interp Equivocal Lipids: No results found for: CHOL, CHLPL, HDL, LDLCALC, TRIG, CHOLHDL and Cardiac Enzymes: No results found for: CKTOTAL, CKMB, CKMBINDEX, TROPONINT \ The review outside laboratories include a white count of 14.6 hemoglobin 13.8, ABG pH 7.22 pCO2 57.9, PO2 87.2 O2 saturation 94 point 7% oxygen 8 L via mask; D-dimer was normal at 0.50; troponin I elevated to 1468 Pulmonary function tests 12/10/2022 at [facility]: FEV1 0.89 L (39%), FVC 1.82 L (62%), DLCO 67% of predicted CT Chest (10/30/22) from [facility]: 1. No PE. 2. Mild diffuse bronchial wall thickening and faint scattered bibasilar opacities are evidence for bronchitis. No consolidation. ECG: Outside ECG reviewed by me. Sinus rhythm poor R-wave progression consider old anteroseptal myocardial infarction. Compared to EKG from March of 2022 there is a new Q-wave in lead V3. CXR: from [facility] 12/10/22: LUNGS/PLEURA: No focal consolidation or pneumothorax. No pleural effusion. The lungs are hyperexpanded with flattened diaphragms evidence of emphysema. HEART/MEDIASTINUM: Heart size is normal. Normal mediastinal and hilar contours. Assessment /Plan Principal Problem: NSTEMI (non-ST elevated myocardial infarction) ([facility] ([facility]) Active Problems: Hypertension Gastroesophageal reflux disease without esophagitis COPD (chronic obstructive pulmonary disease) ([facility] ([facility]) Depression CAD (coronary artery disease) Impression 1. Non ST elevation myocardial infarction: The patient has no symptoms of angina and her EKG does not reveal acute ST T changes however she does have a pattern of elevated troponin suggestive of non ST elevation myocardial infarction. 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 I have reviewed these findings with the patient and have recommended cardiac catheterization to redefine her anatomy. Continue aspirin and heparin and use p.r.n. nitroglycerin if she develops angina. I will also check a lipid panel. 2. Hypertension : She is normotensive on amlodipine. No changes recommended 3. COPD with exacerbation. Currently she is on DuoNebs p.r.n.. Consider pulmonary consult. 4. Gastroesophageal reflux disease 5. Significant weight loss ACTIVITIES COACH * Mansiha Contreras NP - 01/15/2023 8:24 PM CST History and Physical DATE OF SERVICE: 01/16/2023 12:06 AM Primary Care Physician: Torito Gonzalez MD [phone] SUBJECTIVE: Patient is a 67 y.o. female with a PMHx significant for Dysphagia, GERD and HTN Patient presents to ED [facility] with chief complaint of chest pain and was transferred to [facility] for higher level of care and intervention. HPI: Patient reported she had previously had COVID in July. After discharge she had been on home O2 which she has not been using regularly. One week ago she had sinus surgery and has been very stuffy. Patient has been checking her O2 regularly. A patient reported she had been feeling well Tuesday proximally 1 PM she took a nap. She awoke short of breath she put on her O2 at 2 L, took rescue inhaler and nebulizer treatment. With no improvement she called EMS. EMS gave her another rescue inhaler puff and transferred her to done ER. Patient stated her initial O2 sats were 82% prior to O2 placement. Patient denies chest pain. She reports she has felt some mid chest pressure that makes it difficult for her to breathe but had associated it with shortness of breath. Patient sees Dr. Espitia forCardiology she has a history of coronary spasms, which she reported subsided after she began takingthe amlodipine. Patient is not anticoagulated. Patient follows with cardiology annually. Patient was started on heparin drip ACS, which was discontinued prior to transfer. Past Medical History: Diagnosis Date Dysphagia GERD (gastroesophageal reflux disease) HX OTHER MEDICAL 1976 ; Outcome: 7 lb(s) 2 oz Male HX OTHER MEDICAL 1970 ; Outcome: 7 lb(s) 4 oz Female Hypertension Past Surgical History: Procedure Laterality Date APPENDECTOMY 1995 Appendectomy CARDIAC CATHETERIZATION 2009 HEART CATH CATARACT EXTRACTION W/ INTRAOCULAR LENS IMPLANT 2018 COLONOSCOPY 12/06/2016 OTHER SURGICAL HISTORY 1976 : OTHER SURGICAL HISTORY 1970 : POLYPECTOMY TOTAL ABDOMINAL HYSTERECTOMY W/ BILATERAL SALPINGOOPHORECTOMY 1995 [facility] Medications Prior to Admission Medication Sig Dispense Refill Last Dose albuterol HFA (PROVENTIL HFA,VENTOLIN HFA,PROAIR HFA) 90 mcg/actuation inhaler albuterol sulfate HFA 90 mcg/actuation aerosol inhaler INHALE 1 TO 2 PUFFS BY MOUTH EVERY 6 HOURS NEEDED FOR WHEEZING 01/14/2023 amLODIPine (NORVASC) 5 mg tablet Take 1 tablet (5 mg total) by mouth daily 90 tablet 3 01/14/2023 aspirin 81 mg tablet take 1 tablet by oral route every day 0 0 01/14/2023 calcium carbonate (CALCIUM 600 ORAL) Take by mouth 01/14/2023 cephalexin (KEFLEX) 500 mg capsule Take 500 mg by mouth every 6 (six) hours Unknown denosumab (PROLIA) 60 mg/mL syringe Inject 1 mL (60 mg total) under the skin once for 1 dose 1 mL 0 famotidine (PEPCID) 20 mg tablet Take 20 mg by mouth daily 01/14/2023 methylPREDNISolone (MEDROL DOSEPACK) 4 mg Dosepack methylprednisolone 4 mg tablets in a dose pack Unknown Allergies Allergen Reactions Amoxicillin Stomach upset Social History Tobacco Use Smoking status: Former Smokeless tobacco: Never Tobacco comments: Smoking History Packs/day: 0.25 Packs Substance and Sexual Activity Drug use: No Sexual activity: Not Currently Alcohol Use: Not At Risk Frequency of Alcohol Consumption: Monthly or less Average Number of Drinks: 1 or 2 Frequency of Binge Drinking: Less than monthly Family History Problem Relation Age of Onset Coronary artery disease Mother Coronary artery disease; Hypertension Mother Hypertension; Congenital heart disease Brother Congenital heart disease; Diabetes Brother Diabetes mellitus; Hypertension Brother Hypertension; Review of Systems: Review of Systems Constitutional: Negative for activity change, appetite change, fatigue and fever. HENT: Negative for congestion, facial swelling, rhinorrhea, sinus pressure, sinus pain, sore throatand trouble swallowing. Eyes: Negative for pain, discharge, redness, itching and visual disturbance. Respiratory: Positive for chest tightness and shortness of breath. Negative for wheezing. Cardiovascular: Negative for chest pain, palpitations and leg swelling. Gastrointestinal: Negative for abdominal distention, abdominal pain, constipation, diarrhea, nauseaand vomiting. Endocrine: Negative for cold intolerance. Genitourinary: Negative for dysuria, flank pain, frequency, hematuria, pelvic pain and urgency. Musculoskeletal: Negative for back pain, gait problem and neck pain. Skin: Negative for color change. Neurological: Negative for dizziness, facial asymmetry, speech difficulty, weakness, light-headedness and headaches. Hematological: Negative for adenopathy. Does not bruise/bleed easily. Psychiatric/Behavioral: Negative for agitation, behavioral problems and confusion. OBJECTIVE: Vitals: Arrival Vitals [01/15/232008] Temp 37.1 ??C (98.7 ??F) Pulse 94 Resp 20 BP 106/67 SpO2 92 % Temp src Oral Heart Rate Source Patient Position Sitting BP Location Right arm FiO2 (%) 24hr Min/Max: Temp Min: 36.7 ??C (98.1 ??F) Max: 37.1 ??C (98.7 ??F) Pulse Min: 94 Max: 104 BP Min: 92/63 Max: 106/67 Resp Min: 18 Max: 20 SpO2 Min: 92 % Max: 92 % Most Recent : Vitals: 01/15/23200801/15/23 2315 BP: 106/67 92/63 BP Location: Right arm Left arm Patient Position: Sitting Lying Pulse: 94 104 Resp: 20 18 Temp: 37.1 ??C (98.7 ??F) 36.7 ??C (98.1 ??F) TempSrc: Oral Oral SpO2: 92% Weight: 56.2 kg (124 lb) Height: 165 cm (5' 4.96 ) No intake/output data recorded. No intake/output data recorded. Physical exam: Physical Exam Vitals and nursing note reviewed. Constitutional: General: She is not in acute distress. Appearance: Normal appearance. She is normal weight. HENT: Head: Normocephalic and atraumatic. Right Ear: External ear normal. Left Ear: External ear normal. Nose: Nose normal. No congestion or rhinorrhea. Mouth/Throat: Mouth: Mucous membranes are moist. Pharynx: Oropharynx is clear. No oropharyngeal exudate or posterior oropharyngeal erythema. Eyes: General: Right eye: No discharge. Left eye: No discharge. Extraocular Movements: Extraocular movements intact. Conjunctiva/sclera: Conjunctivae normal. Pupils: Pupils are equal, round, and reactive to light. Cardiovascular: Rate and Rhythm: Normal rate and regular rhythm. Pulses: Normal pulses. Heart sounds: Normal heart sounds. Pulmonary: Effort: Pulmonary effort is normal. No respiratory distress. Breath sounds: Normal breath sounds. No wheezing. Abdominal: General: Bowel sounds are normal. There is no distension. Palpations: Abdomen is soft. Tenderness: There is no abdominal tenderness. Musculoskeletal: General: No swelling or tenderness. Normal range of motion. Cervical back: Normal range of motion and neck supple. No rigidity or tenderness. Right lower leg: No edema. Left lower leg: No edema. Skin: General: Skin is warm and dry. Capillary Refill: Capillary refill takes less than 2 seconds. Neurological: General: No focal deficit present. Mental Status: She is alert and oriented to person, place, and time. Mental status is at baseline. Cranial Nerves: No cranial nerve deficit. Motor: No weakness. Psychiatric: Mood and Affect: Mood normal. Behavior: Behavior normal. Thought Content: Thought content normal. Judgment: Judgment normal. Lab/Radiology/Diagnostic Review: Laboratory review: Lab results in the last 24 hours: Recent Results (from the past 24 hour(s)) Protime-INR Collection Time: 01/15/23 9:50 PM Result Value Ref Range PT 13.1 9.2 - 13.5 sec INR 1.2 0.9 - 1.2 CBC without differential Collection Time: 01/15/23 9:50 PM Result Value Ref Range WBC 14.6 (H) 3.8 - 9.9 K/cumm Hgb 13.2 11.9 - 15.5 g/dL Hct 39.2 35.6 - 45.5 % Plt 258 150 - 400 K/cumm MPV 10.3 9.1 - 12.3 fL RBC 4.41 3.90 - 5.20 M/cumm MCV 88.9 81.3 - 96.4 fL MCH 29.9 27.1 - 33.3 pg MCHC 33.7 32.3 - 35.7 g/dL RDW CV 13.9 11.1 - 14.9 % RDW SD 45.6 35.7 - 48.1 fL NRBC abs 0.00 0.00 - 0.01 K/cumm aPTT Collection Time: 01/15/23 9:50 PM Result Value Ref Range aPTT 27 27 - 37 sec pending Imaging review: I have reviewed the result(s) chest x-ray - from transfer chart Findings: Heart size normal. There is mild interstitial edema. No pleural effusion or pneumothorax.No acute osseous abnormality. Impression: Mild interstitial edema. Atypical pneumonia less favored Electrocardiogram review: I have reviewed the result(s) from transfer chart sinus rhythm Anteroseptal myocardial infarction, probably old Abnormal ECG Vent rate 91 bpm NE int 148 ms QRS dur 89 ms QT/QTC 396/444 ms P-R-T axes -12 -6 48 Assessment /Plan Principal Problem: NSTEMI (non-ST elevated myocardial infarction) ([facility]) ([facility]) Active Problems: CAD (coronary artery disease) Hypertension Gastroesophageal reflux disease without esophagitis COPD (chronic obstructive pulmonary disease) (CMS/HCC) ([facility]) Depression NSTEMI- consult to cardiology, anticoagulation with Heparin drip restarted , NPO after MN for possible intervention, Obtaining follow-up series of cardiac enzymes and EKG HTN- obtain vital signs per floor protocol and adjust medication as needed continue amlodipine 5 mgevery day Leukocytosis- WBC 14.6, patient did receive steroid in ER prior to transfer, Chest x-ray from [facility] negative for infiltration, UA pending CAD- ASA 81 mg every day GERD- Pepcid 20 mg every day COPD- patient has hx of smoking, continue Breo daily, rescue inhaler and nebulizer's PRN Depression- mirtazapine 15 mg QHS DVT prophylaxis- anticoagulated with therapeutic heparin drip Full Code Estimated length of Stay: Inpatient > [address] [facility] Hospitalists [phone] 01/16/2023 12:06 AM My total encounter time 01/16/2023 was 37 minutes which was spent in the activities documented in the note this time includes time spent to the visit and after in direct care of the patient. This timedoes not include time spent in any separately reportable services Cosigned by Daquan Ragsdale MD at 01/16/2023 4:04 AM KIDS ACTIVITIES COACH ACTIVITIES COACH ACTIVITIES COACH Associated attestation - Daquan Ragsdale MD - 01/16/2023 4:04 AM KIDS ACTIVITIES COACH I personally performed a substantive portion of this patient encounter in conjunction with YAHIR Melgar. The patient presents with chest pain and was diagnosed at OSH with NSTEMI. My impression/plan: NSTEMI. H/O coronary spasm in past. NSTEMI dx at outside hospital. Started on IV heparin drip. Willcontinue aspirin. Transferred here for cardiology consultation. Pt followed by Dr. Espitia. Monitor ontelemetry. Check ECG and troponin on admission. NPO for possible intervention in am. Leucocytosis. Noted to have high WBC count of 14.6. She has received steroids. No fever. No obviousinfection noted on CXR from OSH. Check UA. Continue to monitor CBC. HTN. Current BP 106/67. Continue to monitor BP closely. Continue home meds including amlodipine. GERD. Continue Pepcid. COPD. Continue Breo and albuterol prn. Depression. Continue mirtazapine. I spent 38 minutes of non-overlapping time managing the patient independent of Kathy Acevedo. documented in this encounter Consult Notes * Sol Lincoln MD - 01/17/2023 9:14 AM CSTAssociated Order(s): IP CONSULT TO PULMONOLOGY Pulmonary Consult Reason for Consult: Hx of COPD and TOOTIE on 3 LPM NC HPI: Mrs. Dsouza is a 67 y/o CF who carries a history of COPD and TOOTIE who presented to an OSH ER with complaints of chest pain and was then transferred to [facility] for higher level of care and intervention. Of note she had a history of COVID in July 2022. After she was discharged home she was on supplemental O2 but had not been using it regularly. She had sinus surgery on 01/05/23, which is her second one, she has nasal polyps and she was started on Dupixent on 01/13/23. She continues to have post nasal drainage. She has been checking her O2 regularly. She had not been on O2 prior to COVID in 07/2022, after that she has intermittently required it. She also had Flu A back in 10/2022. She had been feeling well until 01/14 around 1 pm when she took a nap and then woke up short of breath. She then placed her O2 at 2 LPM on and used her rescue inhaler and did a breathing treatment. When she had no improvement in symptoms she called EMS. Reportedly her O2 sat was 82% prior to placing O2 on. EMSgave her another breathing treatment. She denied having chest pain but did have some chest pressurethat was substernal and made it difficult for her to breath. She has a history of coronary vasospasms. She had a sleep study done at [facility] that showed an AHI 5.1, lowest SpO2 87% and RLS. She is a former smoker. She started smoking at age 10 and quit about 15 years ago. She smoked 1.5 ppd. She had been on Advair however had not refilled due to the cost of the medication. She does have her albuterol and DuoNebs. She only uses when she is short of breath and needs rescue. Reports she never was told she has asthma as a child. She did have some issues though with seasonal allergies but was never diagnosed with asthma. PFTs at [facility] showed: Pre bronchodilator Post bronchodilator FVC 1.82 L 62% 1.97 L FEV1 0.89 L 39% 1.03 L FEV1/FVC 49 TLC 5.33 L 103% RV 3.51 L 158% DLCO 14.71 ml/min/mmHg 67% Past Medical History: Diagnosis Date Dysphagia GERD (gastroesophageal reflux disease) HX OTHER MEDICAL 1976 ; Outcome: 7 lb(s) 2 oz Male HX OTHER MEDICAL 1970 ; Outcome: 7 lb(s) 4 oz Female Hypertension Past Surgical History: Procedure Laterality Date APPENDECTOMY 1995 Appendectomy CARDIAC CATHETERIZATION 2009 HEART CATH CATARACT EXTRACTION W/ INTRAOCULAR LENS IMPLANT 2017 COLONOSCOPY 12/06/2016 OTHER SURGICAL HISTORY 1976 : OTHER SURGICAL HISTORY 1970 : POLYPECTOMY TOTAL ABDOMINAL HYSTERECTOMY W/ BILATERAL SALPINGOOPHORECTOMY 1995 [facility]/[facility]O Medications Prior to Admission Medication Sig Dispense Refill Last Dose albuterol HFA (PROVENTIL HFA,VENTOLIN HFA,PROAIR HFA) 90 mcg/actuation inhaler albuterol sulfate HFA 90 mcg/actuation aerosol inhaler INHALE 1 TO 2 PUFFS BY MOUTH EVERY 6 HOURS NEEDED FOR WHEEZING 01/14/2023 amLODIPine (NORVASC) 5 mg tablet Take 1 tablet (5 mg total) by mouth daily 90 tablet 3 01/14/2023 aspirin 81 mg tablet take 1 tablet by oral route every day 0 0 01/14/2023 calcium carbonate (CALCIUM 600 ORAL) Take by mouth 01/14/2023 cephalexin (KEFLEX) 500 mg capsule Take 500 mg by mouth every 6 (six) hours Unknown denosumab (PROLIA) 60 mg/mL syringe Inject 1 mL (60 mg total) under the skin once for 1 dose 1 mL 0 famotidine (PEPCID) 20 mg tablet Take 20 mg by mouth daily 01/14/2023 methylPREDNISolone (MEDROL DOSEPACK) 4 mg Dosepack methylprednisolone 4 mg tablets in a dose pack Unknown Scheduled Meds:amLODIPine, 5 mg, oral, Daily aspirin, 81 mg, oral, Daily benzonatate, 200 mg, oral, TID calcium carbonate, 500 mg of elemental calcium, oral, Daily famotidine, 20 mg, oral, Daily fluticasone furoate-vilanteroL, 1 puff, inhalation, Daily (RT) mirtazapine, 15 mg, oral, Nightly Continuous Infusions:heparin, 0-33 Units/kg/hr, Last Rate: 17 Units/kg/hr (01/17/23 0741) sodium chloride 0.9%, 50 mL/hr, Last Rate: 50 mL/hr (01/16/23 1809) PRN Meds:. acetaminophen albuterol HFA dextromethorphan-guaiFENesin fluticasone propionate heparin OR heparin ipratropium-albuteroL ondansetron ramelteon Allergies Allergen Reactions Amoxicillin Stomach upset Social History Tobacco Use Smoking status: Former Smokeless tobacco: Never Tobacco comments: Smoking History Packs/day: 0.25 Packs Substance and Sexual Activity Drug use: No Sexual activity: Not Currently Alcohol Use: Not At Risk Frequency of Alcohol Consumption: Monthly or less Average Number of Drinks: 1 or 2 Frequency of Binge Drinking: Less than monthly Family History Problem Relation Age of Onset Coronary artery disease Mother Coronary artery disease; Hypertension Mother Hypertension; Congenital heart disease Brother Congenital heart disease; Diabetes Brother Diabetes mellitus; Hypertension Brother Hypertension; Review of Systems Constitutional: Negative for chills and fever. HENT: Negative for congestion, hearing loss, nosebleeds and sore throat. Eyes: Negative for blurred vision and pain. Respiratory: Positive for cough and shortness of breath. Negative for hemoptysis, sputum production and wheezing. Cardiovascular: Negative for chest pain, palpitations and leg swelling. Chest pressure Gastrointestinal: Negative for constipation, diarrhea, nausea and vomiting. Genitourinary: Negative for dysuria and hematuria. Musculoskeletal: Negative for joint pain and myalgias. Skin: Negative for itching and rash. Neurological: Negative for seizures and headaches. Endo/Heme/Allergies: Negative for environmental allergies and polydipsia. Psychiatric/Behavioral: Negative for depression and memory loss. Above review of system reviewed on 01/17/2023 Vitals: Vitals: 01/17/23 0400 01/17/23 0445 01/17/23 0800 01/17/23 0812 BP: 127/79 109/60 BP Location: Right arm Left arm Patient Position: Lying Sitting Pulse: 66 73 75 77 Resp: 18 Temp: 36.7 ??C (98 ??F) 36.7 ??C (98 ??F) TempSrc: Oral Oral SpO2: 95% 93% Weight: Height: Temp (24hrs), Av.6 ??C (97.8 ??F), Min:36.3 ??C (97.3 ??F), Max:36.7 ??C (98 ??F) Oxygen Therapy SpO2: 93 % O2 Therapy: Supplemental oxygen O2 Del Method: Nasal cannula O2 Flow Rate (L/min): 3 L/min . Intake/Output Summary (Last 24 hours) at 01/17/2023 0914 Last data filed at 01/17/2023 0715 Gross per 24 hour Intake 1020 ml Output 1800 ml Net -780 ml Physical Exam Vitals and nursing note reviewed. Constitutional: General: She is not in acute distress. Appearance: She is well-developed. HENT: Head: Normocephalic and atraumatic. Nose: Nose normal. Mouth/Throat: Mouth: Mucous membranes are moist. Eyes: General: No scleral icterus. Extraocular Movements: Extraocular movements intact. Conjunctiva/sclera: Conjunctivae normal. Neck: Thyroid: No thyromegaly. Trachea: No tracheal deviation. Cardiovascular: Rate and Rhythm: Normal rate and regular rhythm. Heart sounds: No murmur heard. No friction rub. Pulmonary: Effort: Pulmonary effort is normal. No respiratory distress. Breath sounds: No stridor. Decreased breath sounds present. No wheezing or rales. Chest: Chest wall: No tenderness. Abdominal: General: Bowel sounds are normal. There is no distension. Palpations: Abdomen is soft. Tenderness: There is no abdominal tenderness. Musculoskeletal: General: No tenderness. Cervical back: Normal range of motion. Skin: General: Skin is warm and dry. Neurological: Mental Status: She is alert and oriented to person, place, and time. Psychiatric: Behavior: Behavior normal. Lab/Radiology/Diagnostic Review: Labs: Recent Labs Lab Units 01/16/23 0501 01/15/23 2150 WBC K/cumm 15.6* 14.6* HEMOGLOBIN g/dL 13.0 13.2 HEMATOCRIT % 40.8 39.2 PLATELETS K/cumm 247 258 NEUTROS PCT % 66.6 -- LYMPHS PCT % 23.3 -- MONOS PCT % 9.2 -- EOS PCT % 0.1 -- Recent Labs Lab Units 01/16/23 0501 SODIUM mmol/L 143 POTASSIUM PLASMA mmol/L 4.5 CHLORIDE mmol/L 113* CO2 mmol/L 23 ANIONGAP mmol/L 7 GLUCOSE mg/dL 101 BUN SERUM mg/dL 17 CREATININE mg/dL 0.65 CALCIUM mg/dL 8.1* ALBUMIN g/dL 3.6 ALK PHOS Units/L 72 ALT Units/L 11 AST Units/L 27 BILIRUBIN TOTAL mg/dL 0.3 Imaging: CT Chest PE protocol 01/16/23: No evidence of PE on my read. No infiltrate or consolidation. Some bronchial wall thickening. Other diagnostic tests: I have personally reviewed above laboratory findings, chest imaging, and diagnostic tests. 01/17/2023 Assessment and Plan: Very severe COPD with possible asthma component Nasal polyps NSTEMI Acute hypoxic respiratory insufficiency Nocturnal hypoxemia Recs: - To go for LHC today with cardiology - Increase to Breo 200 - May be better as an outpatient to have on Perforomist and Pulmicort nebs given the cost of the Advair and inability to afford prior to meeting her deductible vs doing the nebs through Medicare partB. Will defer to her outpatient bottom cager. - Hold on systemic steroids at this time - Await results of LHC - Wean supplemental O2 for SpO2 > 89% - will repeat an overnight nocturnal O2 study, she may require O2 at night when sleeping. Chart reviewed ACTIVITIES COACH * Sabine Espitia MD - 01/16/2023 8:43 AM CSTAssociated Order(s): IP CONSULT TO CARDIOLOGY Cardiology Consult Reason for Consult: NSTEMI Requesting Provider: Samra Watt MD Subjective Patient is a 67 y.o. female with chief complaint of shortness of breath. HPI: the patient is a 67-year-old female who I have been following for coronary vasospasm. She had a cardiac catheterization in 2009 at [facility] which showed no significant coronary disease and she has been managed with amlodipine since. I last saw her and March of 2022 where she was doing well without angina. Over the all last 8 months the patient has been having recurrent respiratory issues including COVID pneumonia in July 2022 and influenza a in October of 2022. She had sinus surgery for recurrent polyps 2022 at [facility]. The patient woke from a nap on 01/14/2023 with acute shortness of breath. She placed her oxygen and used her rescue inhaler w ith no relief. She denied any chest pain. She presented to the ER at [facility] where she is found to be in respiratory failure. Her troponin was also elevated compatible with a non ST elevation [place]. her EKG however showed no acute ST-T changes. She is transferred here for further evaluation. This morning the patient feels well with no chest pain. She is wearing oxygen. She also reports a 50 lb weight loss over the last 2 years only partially intentional. She denies orthopnea PND pedal edema palpitations or syncope. Past Medical History: Diagnosis Date Dysphagia GERD (gastroesophageal reflux disease) HX OTHER MEDICAL 1976 ; Outcome: 7 lb(s) 2 oz Male HX OTHER MEDICAL 1970 ; Outcome: 7 lb(s) 4 oz Female Hypertension Past Surgical History: Procedure Laterality Date APPENDECTOMY 1995 Appendectomy CARDIAC CATHETERIZATION 2009 HEART CATH CATARACT EXTRACTION W/ INTRAOCULAR LENS IMPLANT 2017 COLONOSCOPY 12/06/2016 OTHER SURGICAL HISTORY 1976 : OTHER SURGICAL HISTORY 1970 : POLYPECTOMY TOTAL ABDOMINAL HYSTERECTOMY W/ BILATERAL SALPINGOOPHORECTOMY 1995 [place]/BSO Medications Prior to Admission Medication Sig Dispense Refill Last Dose albuterol HFA (PROVENTIL HFA,VENTOLIN HFA,PROAIR HFA) 90 mcg/actuation inhaler albuterol sulfate HFA 90 mcg/actuation aerosol inhaler INHALE 1 TO 2 PUFFS BY MOUTH EVERY 6 HOURS NEEDED FOR WHEEZING 01/14/2023 amLODIPine (NORVASC) 5 mg tablet Take 1 tablet (5 mg total) by mouth daily 90 tablet 3 01/14/2023 aspirin 81 mg tablet take 1 tablet by oral route every day 0 0 01/14/2023 calcium carbonate (CALCIUM 600 ORAL) Take by mouth 01/14/2023 cephalexin (KEFLEX) 500 mg capsule Take 500 mg by mouth every 6 (six) hours Unknown denosumab (PROLIA) 60 mg/mL syringe Inject 1 mL (60 mg total) under the skin once for 1 dose 1 mL 0 famotidine (PEPCID) 20 mg tablet Take 20 mg by mouth daily 01/14/2023 methylPREDNISolone (MEDROL DOSEPACK) 4 mg Dosepack methylprednisolone 4 mg tablets in a dose pack Unknown Current Facility-Administered Medications: albuterol HFA (PROVENTIL HFA,VENTOLIN HFA,PROAIR HFA) 90 mcg/actuation inhaler 2 puff, 2 puff, inhalation, Q6H PRN (RT), Manisha Contreras NP amLODIPine (NORVASC) tablet 5 mg, 5 mg, oral, Daily, Manisha Contreras NP aspirin enteric coated tablet 81 mg, 81 mg, oral, Daily, Manisha Contreras NP benzonatate (TESSALON) capsule 200 mg, 200 mg, oral, TID, Manisha Contreras NP, 200 mg at 01/15/23 2239 calcium carbonate (OS-YVROSE) tablet 1,250 mg, 500 mg of elemental calcium, oral, Daily, Manisha Contreras NP dextromethorphan-guaiFENesin (ROBITUSSIN-DM) 2-20 mg/mL syrup 10 mL, 10 mL, oral, QID PRN, Manisha Contreras NP famotidine (PEPCID) tablet 20 mg, 20 mg, oral, Daily, Manisha Contreras NP fluticasone furoate-vilanteroL (BREO ELLIPTA) 100-25 mcg/dose inhaler 1 puff, 1 puff, inhalation, Daily (RT), Manisha Contreras NP, 1 puff at 01/16/23 0833 fluticasone propionate (FLONASE) 50 mcg/actuation nasal spray 1 spray, 1 spray, each nostril, BID PRN, Manisha Contreras NP heparin 5,000 unit/mL injection 2,000 Units, 2,000 Units, intravenous, Q6H PRN OR heparin 5,000unit/mL injection 3,000 Units, 3,000 Units, intravenous, Q6H PRN, Manisha Contreras NP, 3,000 Units at 01/16/23 0616 heparin in 0.45% sodium chloride 25,000 units/250 mL (100 units/mL) infusion (premix), 0-33 Units/kg/hr, intravenous, Titrated, Manisha Contreras NP, Last Rate: 8.43 mL/hr at 01/16/23 0615, 15 Units/kg/hr at 01/16/23 0615 ipratropium-albuteroL (DUO-NEB) 0.5-2.5 mg/3 mL nebulizer solution 3 mL, 3 mL, nebulization, Q4H PRN (RT), Manisha Contreras, PHYSICIAN NEONATOLOGY, 3 mL at 01/16/23 0833 mirtazapine (REMERON) tablet 15 mg, 15 mg, oral, Nightly, Manisha Contreras, PHYSICIAN NEONATOLOGY, 15 mg at 01/15/23 2239 Allergies Allergen Reactions Amoxicillin Stomach upset Social History Tobacco Use Smoking status: Former Smokeless tobacco: Never Tobacco comments: Smoking History Packs/day: 0.25 Packs Substance and Sexual Activity Drug use: No Sexual activity: Not Currently Alcohol Use: Not At Risk Frequency of Alcohol Consumption: Monthly or less Average Number of Drinks: 1 or 2 Frequency of Binge Drinking: Less than monthly Family History Problem Relation Age of Onset Coronary artery disease Mother Coronary artery disease; Hypertension Mother Hypertension; Congenital heart disease Brother Congenital heart disease; Diabetes Brother Diabetes mellitus; Hypertension Brother Hypertension; Review of Systems: Review of systems per HPI and otherwise all other systems are negative Objective Vitals: 24hr Min/Max: Temp Min: 36.4 ??C (97.5 ??F) Max: 37.1 ??C (98.7 ??F) Pulse Min: 79 Max: 104 BP Min: 92/63 Max: 106/67 Resp Min: 18 Max: 20 SpO2 Min: 92 % Max: 96 % Most Recent: Vitals: 01/16/23 0700 BP: 104/70 Pulse: 79 Resp: 20 Temp: 36.4 ??C (97.5 ??F) SpO2: 96% I/O last 2 completed shifts: In: - Out: 500 [Urine:500] No intake/output data recorded. Physical Exam: General appearance: appears stated age and cooperative [...] lesions Neurologic: Alert and oriented x4, non-focal Lab/Radiology/Diagnostic Review: Laboratory review: Lab results in the last 24 hours: Recent Results (from the past 24 hour(s)) Protime-INR Collection Time: 01/15/23 9:50 PM Result Value Ref Range PT 13.1 9.2 - 13.5 sec INR 1.2 0.9 - 1.2 CBC without differential Collection Time: 01/15/23 9:50 PM Result Value Ref Range WBC 14.6 (H) 3.8 - 9.9 K/cumm Hgb 13.2 11.9 - 15.5 g/dL Hct 39.2 35.6 - 45.5 % Plt 258 150 - 400 K/cumm MPV 10.3 9.1 - 12.3 fL RBC 4.41 3.90 - 5.20 M/cumm MCV 88.9 81.3 - 96.4 fL MCH 29.9 27.1 - 33.3 pg MCHC 33.7 32.3 - 35.7 g/dL RDW CV 13.9 11.1 - 14.9 % RDW SD 45.6 35.7 - 48.1 fL NRBC abs 0.00 0.00 - 0.01 K/cumm aPTT Collection Time: 01/15/23 9:50 PM Result Value Ref Range aPTT 27 27 - 37 sec CBC with auto differential Collection Time: 01/16/23 5:01 AM Result Value Ref Range WBC 15.6 (H) 3.8 - 9.9 K/cumm Hgb 13.0 11.9 - 15.5 g/dL Hct 40.8 35.6 - 45.5 % Plt 247 150 - 400 K/cumm MPV 10.6 9.1 - 12.3 fL RBC 4.43 3.90 - 5.20 M/cumm MCV 92.1 81.3 - 96.4 fL MCH 29.3 27.1 - 33.3 pg MCHC 31.9 (L) 32.3 - 35.7 g/dL RDW CV 14.2 11.1 - 14.9 % RDW SD 48.2 (H) 35.7 - 48.1 fL NRBC abs 0.00 0.00 - 0.01 K/cumm Comprehensive metabolic panel Collection Time: 01/16/23 5:01 AM Result Value Ref Range Sodium 143 135 - 145 mmol/L Potassium, pl 4.5 3.3 - 4.9 mmol/L Chloride 113 (H) 97 - 110 mmol/L CO2 23 22 - 32 mmol/L Anion gap 7 2 - 15 mmol/L BUN 17 8 - 25 mg/dL Creatinine 0.65 0.60 - 1.10 mg/dL Glucose 101 70 - 199 mg/dL Calcium 8.1 (L) 8.5 - 10.3 mg/dL Bilirubin, total 0.3 0.1 - 1.2 mg/dL Protein, pl 6.6 6.5 - 8.5 g/dL Albumin 3.6 3.5 - 5.0 g/dL Alk phos 72 40 - 130 Units/L ALT 11 7 - 45 Units/L AST 27 10 - 45 Units/L aPTT Collection Time: 01/16/23 5:01 AM Result Value Ref Range aPTT 32 27 - 37 sec Troponin T high-sensitivity series (baseline, 2hr, 4hr, 6hr) Collection Time: 01/16/23 5:01 AM Result Value Ref Range Trop T hs 228 (Critical) <=14 ng/L Differential, auto Collection Time: 01/16/23 5:01 AM Result Value Ref Range Neutrophil abs 10.4 (H) 1.7 - 6.5 K/cumm Imm gran abs 0.1 0.0 - 0.1 K/cumm Lymphocyte abs 3.6 (H) 0.8 - 3.3 K/cumm Monocyte abs 1.4 (H) 0.2 - 0.8 K/cumm Eosinophil abs 0.0 0.0 - 0.5 K/cumm Basophil abs 0.1 0.0 - 0.1 K/cumm Neutrophil pct 66.6 % Imm gran pct 0.5 % Lymphocyte pct 23.3 % Monocyte pct 9.2 % Eosinophil pct 0.1 % Basophil pct 0.3 % eGFR Collection Time: 01/16/23 5:01 AM Result Value Ref Range eGFR 95 mL/min/1.73 m2 Urinalysis reflex to microscopic and culture Urine Collection Time: 01/16/23 5:45 AM Specimen: Urine Result Value Ref Range Color, ur Yellow Yellow Clarity, ur Clear Clear Specific gravity, ur 1.012 1.003 - 1.030 pH, urine 6.0 Protein, ur ql Negative Negative Glucose, ur ql Negative Negative Ketones, ur Trace Negative Bilirubin, ur Negative Negative Blood, ur 1+ (A) Negative Urobilinogen, ur <2.0 <2.0 mg/dL Nitrite, ur Negative Negative Leukocyte esterase, ur 1+ (A) Negative UA reflex comment Reflex to microscopic UA will be performed. Urinalysis, microscopic only Collection Time: 01/16/23 5:45 AM Result Value Ref Range WBC, ur 0-5 0 - 5 /HPF RBC, ur 0-2 0 - 2 /HPF Epithelial cells, squamous, ur 1-5 0 - 5 /HPF Bacteria, ur 1+ (A) Culture Reflex Comment Reflex conditions for urine culture (WBC >10) not met. Troponin T high-sensitivity 2-hour Collection Time: 01/16/23 7:31 AM Result Value Ref Range Trop T hs 208 (Critical) <=14 ng/L Trop T hs pct delta -9 % Trop T hs interp Equivocal Lipids: No results found for: CHOL, CHLPL, HDL, LDLCALC, TRIG, CHOLHDL and Cardiac Enzymes: No results found for: CKTOTAL, CKMB, CKMBINDEX, TROPONINT \ The review outside laboratories include a white count of 14.6 hemoglobin 13.8, ABG pH 7.22 pCO2 57.9, PO2 87.2 O2 saturation 94 point 7% oxygen 8 L via mask; D-dimer was normal at 0.50; troponin I elevated to 1468 Pulmonary function tests 12/10/2022 at [facility]: FEV1 0.89 L (39%), FVC 1.82 L (62%), DLCO 67% of predicted CT Chest (10/30/22) from [facility]: 1. No PE. 2. Mild diffuse bronchial wall thickening and faint scattered bibasilar opacities are evidence for bronchitis. No consolidation. ECG: Outside ECG reviewed by me. Sinus rhythm poor R-wave progression consider old anteroseptal myocardial infarction. Compared to EKG from March of 2022 there is a new Q-wave in lead V3. CXR: from [facility] 12/10/22: LUNGS/PLEURA: No focal consolidation or pneumothorax. No pleural effusion. The lungs are hyperexpanded with flattened diaphragms evidence of emphysema. HEART/MEDIASTINUM: Heart size is normal. Normal mediastinal and hilar contours. Assessment /Plan Principal Problem: NSTEMI (non-ST elevated myocardial infarction) ([facility] ([facility]) Active Problems: Hypertension Gastroesophageal reflux disease without esophagitis COPD (chronic obstructive pulmonary disease) (CMS/HCC) ([facility]) Depression CAD (coronary artery disease) Impression 1. Non ST elevation myocardial infarction: The patient has no symptoms of angina and her EKG does not reveal acute ST T changes however she does have a pattern of elevated troponin suggestive of non ST elevation myocardial infarction. 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 I have reviewed these findings with the patient and have recommended cardiac catheterization to redefine her anatomy. Continue aspirin and heparin and use p.r.n. nitroglycerin if she develops angina. I will also check a lipid panel. 2. Hypertension : She is normotensive on amlodipine. No changes recommended 3. COPD with exacerbation. Currently she is on DuoNebs p.r.n.. Consider pulmonary consult. 4. Gastroesophageal reflux disease 5. Significant weight loss ACTIVITIES COACH documented in this encounter Nursing Notes * Mynor Castro RN - 01/18/2023 1:45 PM CST Discharge instructions reviewed with patient and at bedside. ACTIVITIES COACH * Mynor Castro RN - 01/17/2023 11:24 AM CST Patient returned from civil laboratory technician. Assessed right groin site, gauze/tegaderm intact, soft on palpation, no drainage noted. Patient to remain bedrest until 1300. Patient verbalizes no pain at this time. Will monitor vital signs. ACTIVITIES COACH * Mynor Castro RN - 01/17/2023 9:58 AM CST Patient to civil laboratory technician per bed, IV infusing heparin gtt at 17units/hr. ACTIVITIES COACH * Marilyn Blackmon RN - 01/16/2023 6:19 AM CST Heparin drip not therapeutic. Bolus given and rate increased by 3unit/kg/hr per orders. Next PTT lab draw order for six hours after rate change. Dual signoff complete ACTIVITIES COACH * Marilyn Blackmon RN - 01/15/2023 8:43 PM CST Patient arrived with no fluids infusing. Received in report patient was on a heparin drip ACTIVITIES COACH * Marilyn Blackmon RN - 01/15/2023 8:37 PM CST Patient arrived via EMS. Patient able to ambulate to bed unassisted by staff. Oxygen in place NC 3L. Review of hospital policy, orientation to room. Call light in reach. Belongings reviewed. Denies pain ACTIVITIES COACH documented in this encounter Miscellaneous Notes * Plan of Care - Mynor Castro RN - 01/18/2023 1:45 PM CST Goals: Clinical Goals for the Shift: VSS, comfort Summary: Problem: Health Behavior: Goal: Understanding of discharge needs will improve Outcome: Adequate for Discharge Problem: Lack of Knowledge: Goal: Ability to develop a pain control plan will improve Outcome: Adequate for Discharge Goal: Ability to identify pain intensity on a pain scale and rate it consistently will improve Outcome: Adequate for Discharge Goal: Ability to notify healthcare provider of pain before it becomes unmanageable or unbearable will improve Outcome: Adequate for Discharge Problem: Medication: Goal: Satisfaction with pain management regimen will improve Outcome: Adequate for Discharge Problem: Sensory: Goal: Ability to identify factors that increase the pain will improve Outcome: Adequate for Discharge Goal: Pain level will decrease Outcome: Adequate for Discharge Problem: Cardiac: Goal: Postprocedural complications will be avoided or minimized Outcome: Adequate for Discharge Problem: Lack of Knowledge: Goal: Understanding of discharge needs will improve Outcome: Adequate for Discharge Problem: Sensory: Goal: Pain level will decrease Outcome: Adequate for Discharge Problem: Skin Integrity: Goal: Will regain and/or maintain adequate tissue perfusion Outcome: Adequate for Discharge ACTIVITIES COACH * Plan of Care - Marah Laura RN - 01/18/2023 11:33 AM CST CM Initial Assessment Interview Note Information Obtained From: Patient (01/18/231132) Admission Source: Transfer from [facility] Impression: NSTEMI Plan Includes: Cardiology & Pulmonology consulted; s/p cardiac cath, oxygen assessment Primary Source of Transportation: Does the patient need discharge transport arranged?: No (01/18/231132) Health Insurance Coverage: Medicare; [facility] Prescription Coverage: MEDDADV Pharmacy: [facility] [address] [place] [id number] [facility] [address] [address] Primary Care Provider: Torito Gonzalez MD Prior to Admission: Primary Caregiver: Self Who does the patient or legal guardian want to receive education instruction and discharge plans for after care assistance?: Decline Caregiver Name: lian fernandez Relationship to patient: Support System: Spouse/Significant Other Support system contact info (name, phone, availablity): Lian Lee, spouse [phone] Home Care Services: No Durable Medical Equipment: Oxygen (2 L O2 prn -- [employer]) Living Arrangements: Spouse/significant other Type of Residence: Private residence Steps in home? : Yes, Outside of home Number of steps inside:: 4 steps Number of steps outside:: 2 steps (01/15/232008) SDOH: Transportation: In the past 12 months, has lack of transportation kept you from medical appointments or from getting medications?: No In the past 12 months, has lack of transportation kept you from meetings, work, or from getting things needed for daily living?: No (01/18/231132) Financial Resource: How hard is it for you to pay for the very basics like food, housing, medical care, and heating?: Not hard at all (01/18/231132) Housing: In the last 12 months, was there a time when you were not able to pay the mortgage or rent on time?: No In the last 12 months, how many places have you lived?: 1 In the last 12 months, was there a time when you did not have a steady place to sleep or slept in ashelter (including now)?: No (01/18/231132) Social Connections: In a typical week, how many times do you talk on the phone with family, friends, or neighbors?: More than three times a week How often do you get together with friends or relatives?: More than three times a week How often do you attend sikh or hoahaoism services?: More than 4 times per year Do you belong to any clubs or organizations such as sikh groups, unions, fraternal or athletic groups, or school groups?: No How often do you attend meetings of the clubs or organizations you belong to?: Never Are you , , , , never , or living with a partner?: (01/18/231132) Food Insecurity: Within the past 12 months, you worried that your food would run out before you got the money to buymore.: Never true Within the past 12 months, the food you bought just didn't last and you didn't have money to get more.: Never true (01/18/231132) Potential discharge needs include: none Dialysis: n/a Behavioral Health Services: Behavioral Health Services: No (01/18/231132) Patient expects to be Discharged to: Private residence, (02/21/23 1133) Additional Information: CM met with pt at bedside to complete assessment for initial discharge planning, plan of care & goals for discharge. Demographics verified per face sheet. Pt lives at homewith spouse Lian Lee. She is independent, drives, retired, uses 2 L O2 as needed for SOB per [employer]. Goal is to return home with no new needs upon discharge. Pt will states has a PCP follow-up appointment & will use unrival pharmacy [facility]. Spouse to provide ride home upon discharge. Nooxygen required at night per completed nocturnal study. Home O2 Eval ordered & pending. No identified CM needs at this time. Disposition code 01. Patient's Identified Problem/Goal Problem: Ensure acute medical needs are met and that patient has a safe discharge plan. Goal: Secure a discharge plan that patient/family are agreeable with and ensure patient has continuum of care. Case management will follow for discharge planning and send referrals as needed. Goals include: To assure continuity of care, To maximize coping skills, To assure patient is in a safe environment and To assure access to community resources. Plan includes: 1. Collaboration with patient, MD, direct care nurse, Chief Design Engineer, and other members of the health care team to assure needed interventions completed. 2. Return patient to optimal level of self-care post discharge. 3. Financial Analysis Advisor will follow for Discharge Planning - interventions as needed 4. Anticipated level of care at discharge 5. Planned Discharge Disposition OZ Rodriguez-RN [facility] [phone] ACTIVITIES COACH * Plan of Care - Heather Aviles RN - 01/18/2023 3:59 AM CST Goals: Clinical Goals for the Shift: VSS, safety, comfort, nocturnal O2 study tonight Summary: VSS, right groin remains soft, without hematoma. Nocturnal O2 study done ACTIVITIES COACH * Pre-Sedation Documentation - Sabine Espitia MD - 01/17/2023 10:21 AM KIDS ACTIVITIES COACH Sedation Plan ASA 2 - Mild systemic disease Mallampati class: II. Risks, benefits, and alternatives discussed with patient. The procedure of cardiac catheterization and possible PCI was reviewed with the patient including the risks of infection, bleeding, arterial damage, dye allergy, renal failure, CVA, OH, and . The patient understands the procedure and risks and gives informed consent. ACTIVITIES COACH ACTIVITIES COACH * Plan of Care - Jerman Hill RN - 01/17/2023 3:26 AM CST Goals: Clinical Goals for the Shift: stable VS, comfort, and safety Summary: Problem: Health Behavior: Goal: Understanding of discharge needs will improve Outcome: Progressing Problem: Medication: Goal: Satisfaction with pain management regimen will improve Outcome: Progressing Problem: Sensory: Goal: Pain level will decrease Outcome: Progressing ACTIVITIES COACH * Plan of Care - Kim Osborn RN - 01/16/2023 5:57 PM CST Goals: Clinical Goals for the Shift: VSS, comfort and safety, heparin drip, Heart cath preparation Summary: Problem: Health Behavior: Goal: Understanding of discharge needs will improve Outcome: Progressing Problem: Lack of Knowledge: Goal: Ability to notify healthcare provider of pain before it becomes unmanageable or unbearable will improve Outcome: Progressing Problem: Medication: Goal: Satisfaction with pain management regimen will improve Outcome: Progressing Problem: Sensory: Goal: Ability to identify factors that increase the pain will improve Outcome: Progressing ACTIVITIES COACH * Plan of Care - Marilyn Blackmon RN - 01/15/2023 8:35 PM CST Goals: Pain control, respiratory monitoring, vitals comfort Summary: ACTIVITIES COACH documented in this encounter Plan of Treatment Not on file documented as of this encounter Procedures Procedure Name Priority Date/Time Associated Diagnosis Comments HOME O2 EVAL (DESATURATION SCREEN) Routine 01/18/2023 12:01 PM KIDS ACTIVITIES COACH RT COMMUNICATION Routine 01/18/2023 11:1 6 AM KIDS ACTIVITIES COACH EGFR Routine 01/18/2023 5:50 AM KIDS ACTIVITIES COACH BASIC METABOLIC PANEL Routine 01/18/2023 5:50 AM KIDS ACTIVITIES COACH PULSE OXIMETRY STUDY Routine 01/17/2023 9:30 PM KIDS ACTIVITIES COACH LEFT HEART CATHETERIZATION WITH CORONARY ANGIOGRAPHY AND WITH AND WITHOUT LEFT VENTRICULOGRAM Routine 01/17/2023 10:44 AM KIDS ACTIVITIES COACH NSTEMI (non-ST elevated myocardial infarction) (CMS/HCC) (HCC) TRANSTHORACIC ECHO (TTE) COMPLETE W DOPPLER/CF WO CONTRAST Routine 01/17/2023 8:55 AM KIDS ACTIVITIES COACH APTT Timed 01/17/2023 7:05 AM KIDS ACTIVITIES COACH APTT Timed 01/17/2023 1:22 AM KIDS ACTIVITIES COACH APTT Timed 01/16/2023 6:14 [address]IES [address] CT CHEST PE W CONTRAST ED Urgent/IP Urgent 01/16/2023 3:59 PM KIDS ACTIVITIES COACH APTT STAT 01/16/2023 11:30 AM KIDS ACTIVITIES COACH TROPONIN T HIGH-SENSITIVITY 6-HOUR Timed 01/16/2023 11:22 AM KIDS ACTIVITIES COACH LIPID PANEL Routine 01/16/2023 11:22 AM KIDS ACTIVITIES COACH ECG 12-LEAD STAT 01/16/2023 9:16 AM KIDS ACTIVITIES COACH TROPONIN T HIGH-SENSITIVITY 4-HR Timed 01/16/2023 8:36 AM KIDS ACTIVITIES COACH TROPONIN T HIGH-SENSITIVITY 2-HOUR Timed 01/16/2023 7:31 AM KIDS ACTIVITIES COACH URINALYSIS AND REFLEX TO MICROSCOPIC AND CULTURE Routine 01/16/2023 5:45 AM KIDS ACTIVITIES COACH URINALYSIS, MICROSCOPIC ONLY Routine 01/16/2023 5:45 AM KIDS ACTIVITIES COACH TROPONIN T HIGH-SENSITIVITY SERIES (BASELINE, 2HR, 4HR, 6HR) Routine 01/16/2023 5:01 AM KIDS ACTIVITIES COACH EGFR Routine 01/16/2023 5:01 AM KIDS ACTIVITIES COACH DIFFERENTIAL AUTO Routine 01/16/2023 5:0 1 AM KIDS ACTIVITIES COACH CBC WITH AUTO DIFFERENTIAL Routine 01/16/2023 5:01 AM KIDS ACTIVITIES COACH APTT STAT 01/16/2023 5:01 AM KIDS ACTIVITIES COACH COMPREHENSIVE METABOLIC PANEL Routine 01/16/2023 5:01 AM KIDS ACTIVITIES COACH APTT STAT 01/15/2023 9:50 PM KIDS ACTIVITIES COACH PROTIME-INR STAT 01/15/2023 9:50 PM KIDS ACTIVITIES COACH CBC WITHOUT DIFFERENTIAL STAT 01/15/2023 9:50 PM KIDS ACTIVITIES COACH documented in this encounter Results * eGFR (01/18/2023 5:50 AM KIDS ACTIVITIES COACH) [facility] eGFR 95 mL/min/1. 73 m2 [facility] Comment: Interpretive Data Reference Interval Normal ?>/= [...] interpretive data was last reviewed 2021. Blood 01/18/2023 5:50 AM KIDS ACTIVITIES COACH 01/18/2023 6:27 AM KIDS ACTIVITIES COACH us Sabine Espitia MD LAB BLOOD ORDERABLES Final Res ult [facility] [address] Department [place] [address] * (ABNORMAL) Basic metabolic panel (01/18/2023 5:50 AM KIDS ACTIVITIES COACH) Sodium 139 135 - 145 mmol/L [facility] Potassium, pl 4.1 3.3 - 4.9 mmol/L [facility] Chloride 110 97 - 110 mmol/L [facility] CO2 20(L) 22 - 32 mmol/L [facility] Anion gap 9 2 - 15 mmol/L [facility] BUN 15 8 - 25 mg/dL [facility] Creatinine 0.65 0.60 - 1.10 mg/dL [facility] Glucose 84 70 - 199 mg/dL [facility] Comment: Interpretive Data Fasting glucose >/= 126 [...] interpretive data was last revised 2022. Calcium 8.1(L) 8.5 - 10.3 mg/dL [facility] Blood 01/18/2023 5:50 AM KIDS ACTIVITIES COACH 01/18/2023 6:27 AM KIDS ACTIVITIES COACH us Sabine Espitia MD LAB BLOOD ORDERABLES Final Res ult [facility] [address] [facility] Department [place] [address] * LEFT HEART CATHETERIZATION WITH CORONARY ANGIOGRAPHY AND WITH AND WITHOUT LEFT VENTRICULOGRAM (01/17/2023 10:44 AM KIDS ACTIVITIES COACH) Anatomical Region Laterality Modality X-Ray Angiograph y Narrative 01/17/2023 11:13 AM KIDS ACTIVITIES COACH Cardiac Catheterization Operative Report Gabbie Dsouza [id number] 01/17/2023 @PCP@ Indications:: myocardial infarction. History: ??The patient is a 67-year-old female who ruled in for a non ST elevation myocardial infarction. ??She has a past history of coronary artery spasm. ??She is referred for coronary angiography. Procedure: ??1. Left heart catheterization 2. Selective right left coronary angiograms. ??3. Left ventriculogram. ??4. Mynx closure of the right femoral artery. Vascular Access: Location: ??Right femoral artery Sheath: ??5 Tristanian Disposition: ??5 Tristanian Mynx Catheters: ??5 Tristanian sheath, 5 Tristanian JL4, 5 Tristanian JR4, 5 Tristanian pigtail, 5 Tristanian Mynx. Procedure Details The risks, benefits, complications, treatment options, and expected outcomes were discussed with the patient. The patient and/or family concurred with the proposed plan, giving informed consent. Patient was brought to the civil laboratory technician after IV hydration was begun. She was further sedated with fentanyl and midazolam. She was prepped and draped in the usual manner. Using the modified Seldinger access technique, a 5 Tristanian sheath was placed in the right femoral ??artery. A left heart catheterization was done. Angiograms were also done.. Diagnostic Findings: Hemodynamics: AO ??115/58/81 , LV 119/19 Left Ventriculogram: ??The left ventricle is of normal dimension. ??The overall left ventricular ejection fraction was normal however there is an area of the mid anterolateral segment which is akinetic. ??The mitral valve is normal without mitral insufficiency. ??The aortic valve and root were normal. Coronarary Angiogram: ??The left main coronary artery is normal. ??The proximal left anterior descending artery 1st septal 1st diagonal are normal. ??There is a 20-30% mid LAD stenosis. ??More distally the LAD was normal. ??The circumflex artery is non dominant normal throughout. ??The dominant right coronary artery has a 20% proximal stenosis. ??The mid and distal RCA were normal. ??There is a 40-50% stenosis of the posterior LV segment prior to the last posterior LV branch Medication Totals per Nursing record. Anesthesia : ?? Versed. ??2 mg ? Fentanyl ??50mcg Procedure Time: ??Start Time: 1024 ??Stop Time: 1044 The patient was given conscious sedation by a registered nurse (Yoli Vang RN ?? ) with me in attendance. There was continuous monitoring of EKG, blood pressure and pulse oximetry. Contrast Total: 105 ml Estimated Blood Loss: ??Minimal ? Complications: ??None; patient tolerated the procedure well. ? Disposition: ??Readmitted to telemetry ? Condition: stable Impression: ??1. Normal left ventricular ejection fraction with a focal area of anterolateral akinesis. ??2. Insignificant coronary artery disease Recommendations: ??The patient has no fixed coronary stenosis explain her cardiac enzyme elevation or her wall motion abnormality. ??These findings may represent a focal area of takotsubo cardiomyopathy. ??Alternatively there may have been an episode of coronary spasm to this region which has since been relieved. ??I would continue aspirin 81 mg daily. ??I would continue amlodipine for her coronary spasm. ??I would add metoprolol. us Sabine Espitia MD CV CARDIAC CATH PROCEDURES Fin al Result * TRANSTHORACIC ECHO (TTE) COMPLETE W DOPPLER/CF WO CONTRAST (01/17/2023 8:55 AM KIDS ACTIVITIES COACH) Anatomical Region Laterality Modality Ultrasound 01/17/2023 8:32 AM KIDS ACTIVITIES COACH Narrative 01/17/2023 10:18 AM KIDS ACTIVITIES COACH [address], [place] [address] Echocardiogram Report Patient Name: GABBIE DSOUZA E : 1955 Study Date: 01/17/2023 8:32:09 AM Gender: F Tech: Location: [id number] Ref.Provider: SABINE ESPITIA Height(Cm): 165 BSA: Weight(Kg): 56 Heart Rate: 66 BP: 127/79 Quality: Good Order Provider: SABINE ESPITIA Procedures: Echocardiographic Report: Transthoracic echocardiogram with complete 2D, M-Mode, and color Doppler examination. Indications: nstemi. Measurements: 2D/M Mode ?Doppler ? Measurement ?Value ?Normal Range ? Measurement ?Value ?Normal Range ? EF Teich 2D ?41.2 ? [ 55.0 - 70.0 ] percent ?KRYSTINA Vmax ? 3.23 ? [ 2.00 - 4.00 ] cm2 ? EF Mod 4C ?51.7 ? [ 55.0 - 70.0 ] percent ?AV Mean PG ? 2 ?[ 2 - 4 ] mmHg ? LVIDd 2D ? 5.16 ? [ 3.90 - 5.30 ] cm ? AV Peak Kirk ?0.97 ? [ 1.00 - 1.70 ] m/s ? LVIDs 2D ? 4.11 ? [ 2.30 - 3.90 ] cm ? AV VTI ? 19.83 ?cm ? LVPWd 2D ? 1.00 ? [ 0.60 - 1.00 ] cm ? LVOT Diam ?2.03 ? [ 1.70 - 2.10 ] cm ? IVSd 2D ?0.81 ? [ 0.60 - 0.90 ] cm ? LVOT Peak Kirk ?0.96 ? [ 0.70 - 1.10 ] m/s ? LA Dimension MM ?3.06 ? [ 2.70 - 3.80 ] cm ? LVOT VTI ? 18.72 ?[ 20.00 - 30.00 ] cm ? AoR Diam MM ?2.87 ? [ 2.60 - 3.70 ] cm ? MV E Peak Kirk ?0.59 ? [ 0.60 - 1.30 ] m/s ? ACS MM ? 1.77 ? cm ? MV A Peak Kirk ?1.00 ? [ 1.00 - 1.20 ] m/s ? MV PHT ? 74 ? [ 20 - 100 ] msec ? MVA ?2.90 ? MV Decel Time ?252 ?[ 104 - 258 ] msec ? PV Peak Kirk ?0.62 ? [ 0.40 - 0.80 ] m/s ? TR Peak Kirk ?1.44 ? [ 1.00 - 2.80 ] m/s ? TR Peak PG ? 8 ?mmHg ? E' ? 0.04 ? E/E' ? 15.00 ? Measurement ?Value ?Normal Range ? Measurement ?Value ?Normal Range ? 2D/M Mode ?Doppler ? - Findings: Atrial Septum: Normal atrial septum. Left Ventricle: Normal left ventricular systolic function with no focal wall motion abnormalities. Mild global left ventricular systolic dysfunction. Impaired diastolic relaxation Grade I. Ejection fraction is measured at 52 %. These segments of the LV are akinetic mid anterolateral segment. Left Atrium: The left atrium is normal in size. Right Ventricle: Normal right ventricular size. Normal right ventricular systolic function. Right Atrium: The right atrium is normal in size. Aortic Valve: Normal structure of the aortic valve. Mitral Valve: Normal structure of the mitral valve. Pulmonic Valve: Mild pulmonic regurgitation. Tricuspid Valve: Normal structure of the tricuspid valve. Normal right ventricular systolic pressure. Pericardium: Normal pericardium with no significant pericardial effusion. Aorta: Normal aortic root. IVC: Normal size and normal respiratory collapse consistent with normal right atrial pressure (<5 mmHg). Pulmonary Artery: Normal pulmonary artery size. Conclusions: Normal left ventricular systolic function with no focal wall motion abnormalities. Mild global left ventricular systolic dysfunction. Impaired diastolic relaxation Grade I. Ejection fraction is measured at 52 %. These segments of the LV are akinetic mid anterolateral segment. Mild pulmonic regurgitation. Electronically Signed By: Sabine Esptiia MD, [facility] 2023-01-17 10:18:09 KIDS ACTIVITIES COACH CC: CC: Procedure Note Sabine Espitia MD - 01/17/2023 [place] [address] Echocardiogram Report Patient Name: GABBIE DSOUZA EPatient ID: [id number] : [id number] Date: 01/17/2023 8:32:09 AM Gender: FAccession #: [id number] Tech: SMLocation: [id number] Ref.Provider: SABINE ESPITIAHeight(Cm): 165 BSA: Weight(Kg): 56 Heart Rate: 66BP: 127/79 Quality: GoodOrder Provider: SABINE ESPITIA Procedures: Echocardiographic Report: Transthoracic echocardiogram with complete 2D, M-Mode, and color Dopplerexamination. Indications: nstemi. Measurements: 2D/M Mode Doppler Measurement Value Normal Range MeasurementValue Normal Range EF Teich 2D 41.2 [ 55.0 - 70.0 ] percent KRYSTINA Vmax3.23 [ 2.00 - 4.00 ] cm2 EF Mod 4C 51.7 [ 55.0 - 70.0 ] percent AV Mean PG 2[ 2 - 4 ] mmHg LVIDd 2D 5.16 [ 3.90 - 5.30 ] cm AV Peak Vel0.97 [ 1.00 - 1.70 ] m/s LVIDs 2D 4.11 [ 2.30 - 3.90 ] cm AV VTI19.83 cm LVPWd 2D 1.00 [ 0.60 - 1.00 ] cm LVOT Diam2.03 [ 1.70 - 2.10 ] cm IVSd 2D 0.81 [ 0.60 - 0.90 ] cm LVOT Peak Vel0.96 [ 0.70 - 1.10 ] m/s LA Dimension MM 3.06 [ 2.70 - 3.80 ] cm LVOT VTI18.72 [ 20.00 - 30.00 ] cm AoR Diam MM 2.87 [ 2.60 - 3.70 ] cm MV E Peak Vel0.59 [ 0.60 - 1.30 ] m/s ACS MM 1.77 cm MV A Peak Vel1.00 [ 1.00 - 1.20 ] m/s MV PHT 74[ 20 - 100 ] msec MVA2.90 MV Decel Vjoq547 [ 104 - 258 ] msec PV Peak Vel0.62 [ 0.40 - 0.80 ] m/s TR Peak Vel1.44 [ 1.00 - 2.80 ] m/s TR Peak PG 8mmHg E'0.04 E/E'15.00 Measurement Value Normal Range MeasurementValue Normal Range 2D/M Mode Doppler - Findings: Atrial Septum: Normal atrial septum. Left Ventricle: Normal left ventricular systolic function with no focal wall motionabnormalities. Mild global left ventricular systolic dysfunction. Impaired diastolicrelaxation Grade I. Ejection fraction is measured at 52 %. These segments of the LV areakinetic mid anterolateral segment. Left Atrium: The left atrium is normal in size. Right Ventricle: Normal right ventricular size. Normal right ventricular systolicfunction. Right Atrium: The right atrium is normal in size. Aortic Valve: Normal structure of the aortic valve. Mitral Valve: Normal structure of the mitral valve. Pulmonic Valve: Mild pulmonic regurgitation. Tricuspid Valve: Normal structure of the tricuspid valve. Normal right ventricular systolicpressure. Pericardium: Normal pericardium with no significant pericardial effusion. Aorta: Normal aortic root. IVC: Normal size and normal respiratory collapse consistent with normal rightatrial pressure (<5 mmHg). Pulmonary Artery: Normal pulmonary artery size. Conclusions: Normal left ventricular systolic function with no focal wall motionabnormalities. Mild global left ventricular systolic dysfunction. Impaired diastolicrelaxation Grade I. Ejection fraction is measured at 52 %. These segments of the LV areakinetic mid anterolateral segment. Mild pulmonic regurgitation. Electronically Signed By: Sabine Espitia MD, [facility] 2023-01-17 10:18:09 KIDS ACTIVITIES COACH CC: CC: us Sabine Espitia MD CV ECHO PROCEDURES Final Resul t * (ABNORMAL) aPTT (01/17/2023 7:05 AM KIDS ACTIVITIES COACH) aPTT 72(H) 27 - 37 sec [facility] Comment: Interpretive Data Therapeutic heparin range: 60.0 - 94.0 seconds. Based on correlation with therapeutic heparin activity range of 0.3-0.7 Units/mL. Current interpretive data was last revised on 2021. Blood 01/17/2023 7:05 AM KIDS ACTIVITIES COACH 01/17/2023 7:22 AM KIDS ACTIVITIES COACH Samra Watt MD LAB BLOOD ORDERABLES Final Res ult Performing Organization Address [facility] de Phone Number [facility] [id number] [email or web address] [address] * (ABNORMAL) aPTT (01/17/2023 1:22 AM KIDS ACTIVITIES COACH) aPTT 80(H) 27 - 37 sec [facility] Comment: Interpretive Data Therapeutic heparin range: 60.0 - 94.0 seconds. Based on correlation with therapeutic heparin activity range of 0.3-0.7 Units/mL. Current interpretive data was last revised on 2021. Blood 01/17/2023 1:22 AM KIDS ACTIVITIES COACH 01/17/2023 1:26 AM KIDS ACTIVITIES COACH Samra Watt MD LAB BLOOD ORDERABLES Final Res ult Performing Organization Address [facility] de Phone Number [facility] [id number] [email or web address] [address] * (ABNORMAL) aPTT (01/16/2023 6:14 PM KIDS ACTIVITIES COACH) aPTT 46(H) 27 - 37 sec [facility] Comment: Interpretive Data Therapeutic heparin range: 60.0 - 94.0 seconds. Based on correlation with therapeutic heparin activity range of 0.3-0.7 Units/mL. Current interpretive data was last revised on 2021. Blood 01/16/2023 6:14 PM KIDS ACTIVITIES COACH 01/16/2023 6:17 PM KIDS ACTIVITIES COACH us Sabine Espitia MD LAB BLOOD [place] [address] [address] [place] [address] * CT Chest PE (CTA) W Contrast (01/16/2023 3:59 PM KIDS ACTIVITIES COACH) Anatomical Region Laterality Modality Body N/A Computed Tomogra phy 01/16/2023 3:53 PM KIDS ACTIVITIES COACH Impressions 01/17/2023 10:04 AM KIDS ACTIVITIES COACH No evidence of acute pulmonary embolism. Diffuse bronchial thickening with lower lobe basal predominant mucoid impaction and subsegmental atelectasis. ??Findings could be due to bronchitis acute or chronic or reactive airway disease. Trace pericardial effusion. Electronically signed by: Nadia Arroyo M.D. Narrative 01/17/2023 10:04 AM KIDS ACTIVITIES COACH Examination: CT CHEST PE (CTA) W CONTRAST Date: 01/16/2023 3:55 PM Clinical History: Chest pain, PE suspected, high prob Technique: Computed tomographic images were acquired a CT angiographic protocol optimized for pulmonary embolism. Contrast-enhanced transaxial images were obtained following the intravenous administration of 100 mL Optiray 350, nonionic contrast. Multiplanar reformatted images and 3-dimensional images were obtained on the 3-D workstation and sent to the PACS archival system. Comparison: None. Preliminary report was given by [employer]. Findings: ??No acute pulmonary embolism is seen in the main, 1st, 2nd, and 3rd order pulmonary arterial (PA) branches. There is no aortic aneurysm or dissection. Normal heart size noted with trace pericardial effusion. There is no CT evidence for right ventricular strain. There are no pathologically enlarged mediastinal or hilar lymph nodes. ??The visualized thyroid is not remarkable. Diffuse bronchial thickening with extensive bilateral lower lobe basal predominant mucoid impaction noted. ??Bilateral lower lobe basal predominant subsegmental atelectasis is also seen. Thoracic hyperkyphosis with moderate to marked mid lower thoracic disc degeneration is present. The visible portions of the upper abdomen are unremarkable. Procedure Note Nadia Arroyo MD - 01/17/2023 Examination: CT CHEST PE (CTA) W CONTRAST Date: 01/16/2023 3:55 PM Clinical History: Chest pain, PE suspected, high prob Technique: Computed tomographic images were acquired a CT angiographic protocol optimized for pulmonary embolism. Contrast-enhanced transaxial images were obtained following the intravenous administration of 100 mL Optiray 350, nonionic contrast. Multiplanar reformatted images and 3-dimensional images were obtained on the 3-D workstation and sent to the PACS archival system. Comparison: None. Preliminary report was given by [employer]. Findings: No acute pulmonary embolism is seen in the main, 1st, 2nd, and 3rd order pulmonary arterial (PA) branches. There is no aortic aneurysm or dissection. Normal heart size noted with trace pericardial effusion. There is no CT evidence for right ventricular strain. There are no pathologically enlarged mediastinal or hilar lymph nodes. The visualized thyroid is not remarkable. Diffuse bronchial thickening with extensive bilateral lower lobe basal predominant mucoid impaction noted. Bilateral lower lobe basal predominant subsegmental atelectasis is also seen. Thoracic hyperkyphosis with moderate to marked mid lower thoracic disc degeneration is present. The visible portions of the upper abdomen are unremarkable. IMPRESSION: No evidence of acute pulmonary embolism. Diffuse bronchial thickening with lower lobe basal predominant mucoid impaction and subsegmental atelectasis. Findings could be due to bronchitis acute or chronic or reactive airway disease. Trace pericardial effusion. Electronically signed by: Nadia Arroyo M.D. Samra Watt MD IMG CT PROCEDURES Final Result * (ABNORMAL) aPTT (01/16/2023 11:30 AM KIDS ACTIVITIES COACH) aPTT 63(H) 27 - 37 sec [facility] Comment: Interpretive Data Therapeutic heparin range: 60.0 - 94.0 seconds. Based on correlation with therapeutic heparin activity range of 0.3-0.7 Units/mL. Current interpretive data was last revised on 2021. Blood 01/16/2023 11:3 0 AM KIDS ACTIVITIES COACH 01/16/2023 11:34 AM KIDS ACTIVITIES COACH Sabine Espitia MD LAB BLOOD ORDERABLES Final Res ult [facility] [address] [address] Department [place] [address] * Lipid panel (01/16/2023 11:22 AM KIDS ACTIVITIES COACH) Cholesterol 195 30 - 199 mg/dL [facility] Comment: Interpretive Data Ages < or = 19 years ??Acceptable: ? <170 mg/dL ??Borderline high: ??170-199 mg/dL ??High: ? >or= 200 mg/dL Ages > or = 20 years ??Desirable: ?<200 mg/dL ??Borderline high: ??200-239 mg/dL ??High: ? >or= 240 mg/dL Literature References: 1. Expert Panel on Integrated Guidelines for Cardiovascular Health and Risk Reduction in Children and Adolescents. Pediatrics 2011;128:S213 2. NCEP Expert Panel. Circulation 2004;110:227 Current Interpretive Data was last revised on 2018. Triglycerides 105 <=149 mg/dL [facility]OUGL[facility] Comment: Interpretive Data Ages < or = 9 years ??Acceptable: ? <75 mg/dL ??Borderline high: ??75-99 mg/dL ??High: ? >or= 100 mg/dL Ages 10 to 20 years ??Acceptable: ? <90 mg/dL ??Borderline high: ??90-129 mg/dL ??High: ? >or= 130 mg/dL Ages > or = 20 years ??Desirable: ?<150 mg/dL ??Borderline high: ??150-199 mg/dL ??High: ? 200-499 mg/dL ?Very high: ?? >or= 499 mg/dL Literature References: 1. Expert Panel on Integrated Guidelines for Cardiovascular Health and Risk Reduction in Children and Adolescents. Pediatrics 2011;128:S213 2. NCEP Expert Panel. Circulation 2004;110:227 Current Interpretive Data was last revised on 2018. HDL 67 >=40 mg/dL [facility] DOUGLAS Comment: Interpretive Data Ages < or = 19 years ??Acceptable: ? >45 mg/dL ??Borderline low: ?? 40-45 mg/dL ??Low: ? <40 mg/dL Ages > or = 20 years ??Desirable: ?>or= 60 mg/dL ??Low: ? <40 mg/dL Literature References: 1. Expert Panel on Integrated Guidelines for Cardiovascular Health and Risk Reduction in Children and Adolescents. Pediatrics 2011;128:S213 2. NCEP Expert Panel. Circulation 2004;110:227 Current Interpretive Data was last revised on 2018. LDL, calculated 107 <=129 mg/dL [facility] Comment: Interpretive Data Ages < or = 19 years ??Acceptable: ? <110 mg/dL ??Borderline high: ??110-129 mg/dL ??High: ?>or= 130 mg/dL Ages > or = 20 years ??Optimal: ? <100 mg/dL ??Near optimal: ?100-129 mg/dL ??Borderline high: ?? 130-159 mg/dL ??High: ?>160 mg/dL Literature References: 1. Expert Panel on Integrated Guidelines for Cardiovascular Health and Risk Reduction in Children and Adolescents. Pediatrics 2011;128:S213 2. NCEP Expert Panel. Circulation 2004;110:227 Current Interpretive Data was last revised on 2018. Non-HDL Cholesterol 128 mg/dL [facility] Comment: Interpretive Data Ages < or = 19 years ??Acceptable: ?<120 mg/dL ??Borderline high: ??120-144 mg/dL ??High: ?>145 mg/dL Ages > or = 20 years ??When triglycerides are >200 mg/dL, Non-HDL cholesterol is a secondary target of ? therapy with treatment goals that are 30 mg/dL greater than the LDL cholesterol target. ? Literature References: 1. Expert Panel on Integrated Guidelines for Cardiovascular Health and Risk Reduction in Children and Adolescents. Pediatrics 2011;128:S213 2. NCEP Expert Panel. Circulation 2004;110:227 Current Interpretive Data was last revised on 2018. Chol/HDL ratio 3 [facility] Blood 01/16/2023 11:2 2 AM KIDS ACTIVITIES COACH 01/16/2023 11:34 AM KIDS ACTIVITIES COACH Sabine Espitia MD LAB BLOOD ORDERABLES Final Res ult Performing Organization Address [facility] Co de Phone Number [facility] [id number] [address] Department [place] [address] * (ABNORMAL) Troponin T high-sensitivity 6-hour (01/16/2023 11:22 AM KIDS ACTIVITIES COACH) Trop T hs 186(H) <=14 ng/L [facility] Comment: Interpretive Data For further hscTnT resources including the diagnostic algorithm and an aid in interpretation, copy and paste this link: https://nrl.testcatalog.org/show/hsTrop Current Interpretive Data last revised 2020. Trop T hs pct delta -18 % [facility] Trop T hs interp Equivocal [facility] Blood 01/16/2023 11:2 2 AM KIDS ACTIVITIES COACH 01/16/2023 11:34 AM KIDS ACTIVITIES COACH Manisha Contreras NP LAB BLOOD ORDERABLES Estefania l Result Performing Organization Address [facility] Co de Phone Number [facility] [phone] [address] Department of Laboratories [place], [place] [id number] * ECG 12 lead (01/16/2023 9:16 AM KIDS ACTIVITIES COACH) 01/16/2023 9:16 AM KIDS ACTIVITIES COACH Narrative [facility] - 01/16/2023 1:19 PM KIDS ACTIVITIES COACH Vent Rate: 78 bpm RR Interval: 765 msec NE Interval: 155 msec QRS Duration: 77 msec QT Interval: 387 msec QTC Interval: 420 msec P-R-T Anza: -4 - 8 - 75 degrees SINUS RHYTHM SEPTAL MYOCARDIAL INFARCTION , PROBABLY OLD [40+ ms Q WAVE IN V1/V2] ABNORMAL ECG No old EKG Electronically Signed By: Dr. Norma Collins [facility] Manisha Contreras PHYSICIAN NEONATOLOGY ECG ORDERABLES Final Res ult [facility] * (ABNORMAL) Troponin T high-sensitivity 4-hour (01/16/2023 8:36 AM KIDS ACTIVITIES COACH) Trop T hs 207(C) <=14 ng/L [facility] Comment: Critical Result called to and read back by Persistent Abnormal Result, DATE: 2023-01-16 09:16:21 BY: Aimee Garcia Interpretive Data For further hscTnT resources including the diagnostic algorithm and an aid in interpretation, copy and paste this link: [email or web address]/show/[email or web address] Current Interpretive Data last revised 2020. Trop T hs pct delta -9 % [facility] Trop T hs interp Equivocal [facility] Blood 01/16/2023 8:36 AM KIDS ACTIVITIES COACH 01/16/2023 8:44 AM KIDS ACTIVITIES COACH Manisha Contreras NP LAB BLOOD ORDERABLES Estefania l Result Performing Organization Address City/[facility]/ZIP Co de Phone Number [facility] [id number] [address] Department [place] [address] * (ABNORMAL) Troponin T high-sensitivity 2-hour (01/16/2023 7:31 AM KIDS ACTIVITIES COACH) Trop T hs 208(C) <=14 ng/L [facility] Comment: Critical Result called to and read back by Persistent Abnormal Result, DATE: 2023-01-16 08:08:27 BY: Aimee Garcia Interpretive Data For further hscTnT resources including the diagnostic algorithm and an aid in interpretation, copy and paste this link: [email or web address]/show/[email or web address] Current Interpretive Data last revised 2020. Trop T hs pct delta -9 % [facility] Trop T hs interp Equivocal [facility] Blood 01/16/2023 7:31 AM KIDS ACTIVITIES COACH 01/16/2023 7:40 AM KIDS ACTIVITIES COACH Manisha Contreras PHYSICIAN NEONATOLOGY LAB BLOOD ORDERABLES Estefania lopez Result Performing Organization Address [facility] Co de Phone Number [facility] [address] [address] [facility] [employer] [place], [place] [phone] * (ABNORMAL) Urinalysis, microscopic only (01/16/2023 5:45 AM KIDS ACTIVITIES COACH) WBC, ur 0-5 0 - 5 /HPF [facility] RBC, ur 0-2 0 - 2 /HPF [facility] Epithelial cells, squamous, ur 1-5 0 - 5 /HPF [facility] Bacteria, ur 1+(A) [facility] Culture Reflex Comment Reflex conditions for urine culture (WBC >10) not met. [facility] Urine 01/16/2023 5:45 AM KIDS ACTIVITIES COACH 01/16/2023 5:55 AM KIDS ACTIVITIES COACH Manisha Contreras PHYSICIAN NEONATOLOGY LAB URINE ORDERABLES Estefania lopez Result Performing Organization Address [facility] de Phone Number [facility] [address] [address] [facility] [place] [address] * (ABNORMAL) Urinalysis reflex to microscopic and culture Urine (01/16/2023 5:45 AM KIDS ACTIVITIES COACH) Color, ur Yellow Yellow [facility] Clarity, ur Clear Clear [facility] Specific gravity, ur 1.012 1.003 - 1.030 [facility] pH, urine 6.0 [facility] Protein, ur ql Negative Negative [facility] Glucose, ur ql Negative Negative [facility] Ketones, ur Trace Negative [facility] Bilirubin, ur Negative Negative [facility] Blood, ur 1+(A) Negative [facility] Urobilinogen, ur <2.0 <2.0 mg/dL [facility] Nitrite, ur Negative Negative [facility] Leukocyte esterase, ur 1+(A) Negative [facility] UA reflex comment Reflex to microscopic UA will be performed. [facility] Urine 01/16/2023 5:45 AM KIDS ACTIVITIES COACH 01/16/2023 5:55 AM KIDS ACTIVITIES COACH Narrative [facility] - 01/16/2023 6:09 AM KIDS ACTIVITIES COACH ?? Urine pH is affected by diet, medications, systemic acid-base disturbances, and renal tubular function. ??pH may affect urinary stone formation. ??For example, urine pH below 6.0 may help reduce the tendency for calcium phosphate stones and pH greater than 6.0 may reduce the tendency for uric acid stone formation. Source: [employer]. Last revised 12-08-2017 us Manisha Contreras NP LAB MICROBIOLOGY - GENERA L ORDERABLES Final Result [facility] [address] [address] Department [place] [address] * eGFR (01/16/2023 5:01 AM KIDS ACTIVITIES COACH) eGFR 95 mL/min/1. 73 m2 [facility] Comment: Interpretive Data Reference Interval Normal ?>/= [...] interpretive data was last reviewed 2021. Blood 01/16/2023 5:01 AM KIDS ACTIVITIES COACH 01/16/2023 5:14 AM KIDS ACTIVITIES COACH us Manisha Contreras PHYSICIAN NEONATOLOGY LAB BLOOD ORDERABLES Estefania lopez Result [facility] [address] [address] Department [place] [address] * (ABNORMAL) Differential, auto (01/16/2023 5:01 AM KIDS ACTIVITIES COACH) Neutrophil abs 10.4(H) 1.7 - 6.5 K/cumm [facility] Imm gran abs 0.1 0.0 - 0.1 K/cumm [facility] Lymphocyte abs 3.6(H) 0.8 - 3.3 K/cumm [facility] Monocyte abs 1.4(H) 0.2 - 0.8 K/cumm [facility] Eosinophil abs 0.0 0.0 - 0.5 K/cumm [facility] Basophil abs 0.1 0.0 - 0.1 K/cumm [facility] Neutrophil pct 66.6 % [facility] Comment: Interpretive Data Percent cell count reference ranges are not reported, since discordance with absolute values may lead to misinterpretation of CBC data. Current Interpretive Data was last revised on 2018. Imm gran pct 0.5 % [facility] Comment: Interpretive Data Percent cell count reference ranges are not reported, since discordance with absolute values may lead to misinterpretation of CBC data. Current Interpretive Data was last revised on 2018. Lymphocyte pct 23.3 % [facility] Comment: Interpretive Data Percent cell count reference ranges are not reported, since discordance with absolute values may lead to misinterpretation of CBC data. Current Interpretive Data was last revised on 2018. Monocyte pct 9.2 % [facility] Comment: Interpretive Data Percent cell count reference ranges are not reported, since discordance with absolute values may lead to misinterpretation of CBC data. Current Interpretive Data was last revised on 2018. Eosinophil pct 0.1 % [facility] Comment: Interpretive Data Percent cell count reference ranges are not reported, since discordance with absolute values may lead to misinterpretation of CBC data. Current Interpretive Data was last revised on 2018. Basophil pct 0.3 % [facility] Comment: Interpretive Data Percent cell count reference ranges are not reported, since discordance with absolute values may lead to misinterpretation of CBC data. Current Interpretive Data was last revised on 2018. Blood 01/16/2023 5:01 AM KIDS ACTIVITIES COACH 01/16/2023 5:13 AM KIDS ACTIVITIES COACH Manisha Contreras NP LAB BLOOD ORDERABLES Estefania l Result Performing Organization Address [facility] Co de Phone Number [facility] [phone] [email or web address] [address] * (ABNORMAL) Troponin T high-sensitivity series (baseline, 2hr, 4hr, 6hr) (01/16/2023 5:01 AM KIDS ACTIVITIES COACH) Trop T hs 228(C) <=14 ng/L [facility] Comment: Critical Result called to and read back by marilyn blackmon, DATE: 2023-01-16 06:56:29 BY: ayah contreras Interpretive Data For further hscTnT resources including the diagnostic algorithm and an aid in interpretation, copy and paste this link: https://nrl.testcatalog.org/show/[email or web address] Current Interpretive Data last revised 2020. Blood 01/16/2023 5:01 AM KIDS ACTIVITIES COACH 01/16/2023 6:26 AM KIDS ACTIVITIES COACH Manisha Contreras NP LAB BLOOD ORDERABLES Estefania l Result Performing Organization Address [facility] Co de Phone Number [facility] [place] [phone] [email or web address] [address] * aPTT (01/16/2023 5:01 AM KIDS ACTIVITIES COACH) aPTT 32 27 - 37 sec [facility] Comment: Interpretive Data Therapeutic heparin range: 60.0 - 94.0 seconds. Based on correlation with therapeutic heparin activity range of 0.3-0.7 Units/mL. Current interpretive data was last revised on 2021. Blood 01/16/2023 5:01 AM KIDS ACTIVITIES COACH 01/16/2023 5:13 AM KIDS ACTIVITIES COACH us Una Gill Burdick DO LAB BLOOD ORDERABLES Estefania l Result [facility] [address] [address] Department [place] [address] * (ABNORMAL) Comprehensive metabolic panel (01/16/2023 5:01 AM KIDS ACTIVITIES COACH) Sodium 143 135 - 145 mmol/L [facility] Potassium, pl 4.5 3.3 - 4.9 mmol/L [facility] Chloride 113(H) 97 - 110 mmol/L [facility] CO2 23 22 - 32 mmol/L [facility] Anion gap 7 2 - 15 mmol/L [facility] BUN 17 8 - 25 mg/dL [facility] Creatinine 0.65 0.60 - 1.10 mg/dL [facility] Glucose 101 70 - 199 mg/dL [facility] Comment: Interpretive Data Fasting glucose >/= 126 [...] interpretive data was last revised 2022. Calcium 8.1(L) 8.5 - 10.3 mg/dL [facility] Bilirubin, total 0.3 0.1 - 1.2 mg/dL [facility] Protein, pl 6.6 6.5 - 8.5 g/dL [facility] Albumin 3.6 3.5 - 5.0 g/dL [facility] Alk phos 72 40 - 130 Units/L [facility] ALT 11 7 - 45 Units/L [facility] AST 27 10 - 45 Units/L [facility] Blood 01/16/2023 5:01 AM KIDS ACTIVITIES COACH 01/16/2023 5:14 AM KIDS ACTIVITIES COACH Manisha Contreras PHYSICIAN NEONATOLOGY LAB BLOOD ORDERABLES Estefania l Result Performing Organization Address City/[facility]/ZIP Co de Phone Number [facility] [place] [phone] [address] [place] [address] * (ABNORMAL) CBC with auto differential (01/16/2023 5:01 AM KIDS ACTIVITIES COACH) WBC 15.6(H) 3.8 - 9.9 K/cumm [facility] Hgb 13.0 11.9 - 15.5 g/dL [facility] Hct 40.8 35.6 - 45.5 % [facility] Plt 247 150 - 400 K/cumm [facility] MPV 10.6 9.1 - 12.3 fL [facility] RBC 4.43 3.90 - 5.20 M/cumm [facility] MCV 92.1 81.3 - 96.4 fL [facility] MCH 29.3 27.1 - 33.3 pg [facility] MCHC 31.9(L) 32.3 - 35.7 g/dL [facility] RDW CV 14.2 11.1 - 14.9 % [facility] RDW SD 48.2(H) 35.7 - 48.1 fL [facility] NRBC abs 0.00 0.00 - 0.01 K/cumm [facility] Blood 01/16/2023 5:01 AM KIDS ACTIVITIES COACH 01/16/2023 5:13 AM KIDS ACTIVITIES COACH Manisha Contreras PHYSICIAN NEONATOLOGY LAB BLOOD ORDERABLES Estefania l Result Performing Organization Address City/[facility]/ZIP Co de Phone Number [facility] [place] [phone] [address] Department [employer] [place], [place] [id number] * aPTT (01/15/2023 9:50 PM KIDS ACTIVITIES COACH) aPTT 27 27 - 37 sec [facility] Comment: Interpretive Data Therapeutic heparin range: 60.0 - 94.0 seconds. Based on correlation with therapeutic heparin activity range of 0.3-0.7 Units/mL. Current interpretive data was last revised on 2021. Blood 01/15/2023 9:50 PM KIDS ACTIVITIES COACH 01/15/2023 9:53 PM KIDS ACTIVITIES COACH Narrative [facility] - 01/15/2023 10:15 PM KIDS ACTIVITIES COACH Baseline prior to heparin initiation Manisha Contreras PHYSICIAN NEONATOLOGY LAB BLOOD ORDERABLES Estefania l Result Performing Organization Address City/[facility]/ZIP Co de Phone Number [facility] [address] [address] Department [place] [address] * (ABNORMAL) CBC without differential (01/15/2023 9:50 PM KIDS ACTIVITIES COACH) WBC 14.6(H) 3.8 - 9.9 K/cumm [facility] Hgb 13.2 11.9 - 15.5 g/dL [facility] Hct 39.2 35.6 - 45.5 % [facility] Plt 258 150 - 400 K/cumm [facility] MPV 10.3 9.1 - 12.3 fL [facility] RBC 4.41 3.90 - 5.20 M/cumm [facility] MCV 88.9 81.3 - 96.4 fL [facility] MCH 29.9 27.1 - 33.3 pg [facility] MCHC 33.7 32.3 - 35.7 g/dL [facility] RDW CV 13.9 11.1 - 14.9 % [facility] RDW SD 45.6 35.7 - 48.1 fL [facility] NRBC abs 0.00 0.00 - 0.01 K/cumm [facility] Blood 01/15/2023 9:50 PM KIDS ACTIVITIES COACH 01/15/2023 9:53 PM KIDS ACTIVITIES COACH Narrative [facility] - 01/15/2023 9:57 PM KIDS ACTIVITIES COACH Baseline prior to heparin initiation Manisha Contreras PHYSICIAN NEONATOLOGY LAB BLOOD ORDERABLES Estefania l Result Performing Organization Address City/[facility]/ZIP Co de Phone Number [facility] [address] [address] Department [place] [address] * Protime-INR (01/15/2023 9:50 PM KIDS ACTIVITIES COACH) PT 13.1 9.2 - 13.5 sec [facility] INR 1.2 0.9 - 1.2 [facility] Comment: Interpretive data Oral anticoagulant therapeutic ranges: Venous thromboembolism prophylaxis or treatment: 2.0-3.0 CARDIOLOGY Standard range: 2.0-3.0 High-intensity range: 2.5-3.5 Refer to indication-specific guidelines for appropriate target ranges for prosthetic heart valve replacement. Current interpretive data was last revised on 2019. Blood 01/15/2023 9:50 PM KIDS ACTIVITIES COACH 01/15/2023 9:53 PM KIDS ACTIVITIES COACH Narrative [facility] - 01/15/2023 10:12 PM KIDS ACTIVITIES COACH Baseline prior to heparin initiation Manisha Contreras NP LAB BLOOD ORDERABLES Estefania l Result [facility] [address] [place] [address] documented in this encounter Visit Diagnoses Diagnosis NSTEMI (non-ST elevated myocardial infarction) ([facility]/HCC) ([facility])- Primary Acute myocardial infarction, subendocardial infarction, episode of care unspecified NSTEMI (non-ST elevated myocardial infarction) ([facility]) ([facility]) Acute myocardial infarction, subendocardial infarction, episode of care unspecified Hypertension Unspecified essential hypertension CAD (coronary artery disease) Coronary atherosclerosis of unspecified type of vessel, [place] or graft Gastroesophageal reflux disease without esophagitis Esophageal reflux COPD (chronic obstructive pulmonary disease) ([facility]) Chronic airway obstruction, not elsewhere classified Depression Depressive disorder, not elsewhere classified NSTEMI (non-ST elevated myocardial infarction) ([facility]/HCC) ([facility]) Acute myocardial infarction, subendocardial infarction, episode of care unspecified documented in this encounter Admitting Diagnoses Diagnosis NSTEMI (non-ST elevated myocardial infarction) (CMS/HCC) ([facility]) Acute myocardial infarction, subendocardial infarction, episode of care unspecified documented in this encounter Administered Medications Inactive Administered Medications - up to 3 most recent administrations Medication Order MAR Action Action Date Dose Rate Site acetaminophen (TYLENOL) tablet 650 mg 650 mg, oral, Every 6 hours PRN, headaches, fever, Starting on 01/16/23 at 1444 amLODIPine (NORVASC) tablet 5 mg 5 mg, oral, Daily, First dose on 01/16/23 at 0900 Given 01/18/2023 8:55 AM KIDS ACTIVITIES COACH 5 mg Given 01/17/2023 11:30 AM KIDS ACTIVITIES COACH 5 mg Given 01/16/2023 9:33 AM KIDS ACTIVITIES COACH 5 mg aspirin enteric coated tablet 81 mg 81 mg, oral, Daily, First dose on 01/16/23 at 0900, Do not crush, chew, cut, dissolve, open or otherwise manipulate tablet/capsule. Given 01/18/2023 8:55 AM KIDS ACTIVITIES COACH 81 mg Given 01/17/2023 11:30 AM KIDS ACTIVITIES COACH 81 mg Given 01/16/2023 9:33 AM KIDS ACTIVITIES COACH 81 mg benzonatate (TESSALON) capsule 200 mg 200 mg, oral, 3 times daily, First dose on 01/15/23 at 2215, Do not crush, chew, cut, dissolve, open or otherwise manipulate tablet/capsule., Indications: CoughIndications:Cough Given 01/18/2023 8:55 AM KIDS ACTIVITIES COACH 200 mg Given 01/17/2023 9:47 PM KIDS ACTIVITIES COACH 200 mg Given 01/17/2023 6:10 PM KIDS ACTIVITIES COACH 200 mg calcium carbonate (OS-YVROSE) tablet 1,250 mg 1,250 mg (500 mg of elemental calcium), oral, Daily, First dose on 01/16/23 at 0900 Given 01/18/2023 8:55 AM KIDS ACTIVITIES COACH 1,250 mg Given 01/17/2023 11:30 AM KIDS ACTIVITIES COACH 1,250 mg Given 01/16/2023 9:37 AM KIDS ACTIVITIES COACH 1,250 mg dextromethorphan-guaiFENesin (ROBITUSSIN-DM) 2-20 mg/mL syrup 10 mL 10 mL, oral, 4 times daily PRN, cough, Starting on 01/15/23 at 2132 famotidine (PEPCID) tablet 20 mg 20 mg, oral, Daily, First dose on 01/16/23 at 0900 Given 01/18/2023 8:55 AM KIDS ACTIVITIES COACH 20 mg Given 01/17/2023 11:30 AM KIDS ACTIVITIES COACH 20 mg Given 01/16/2023 9:33 AM KIDS ACTIVITIES COACH 20 mg fentaNYL (SUBLIMAZE) preservative free injection Code/trauma/sedation medication, Starting on Tue01/17/23 at 1024, Intra-Procedure (CV) Given 01/17/2023 10:27 AM KIDS ACTIVITIES COACH 2 5 mcg Given 01/17/2023 10:24 AM KIDS ACTIVITIES COACH 25 mcg fluticasone furoate-vilanteroL (BREO ELLIPTA) 200-25 mcg/dose inhaler 1 puff 1 puff, inhalation, Daily (correspondence specialist), First dose on Tue01/18/23 at 0900, Rinse mouth with water after use. Do not swallow. fluticasone propionate (FLONASE) 50 mcg/actuation nasal spray 1 spray 1 spray, each nostril, 2 times daily PRN, rhinitis, Starting on 01/15/23 at 2134 heparin in 0.9% sodium chloride 1,000 units/500 mL (2 unit/mL) infusion (premix) Code/trauma/sedation medication, Starting on Tue01/17/23 at 1015, Intra-Procedure (CV) Given 01/17/2023 10:15 AM KIDS ACTIVITIES COACH 1,000 mL ioversoL (OPTIRAY 350) injection Code/trauma/sedation medication, Starting on Tue01/17/23 at 1042, Intra-Procedure (CV) Given 01/17/2023 10:42 AM KIDS ACTIVITIES COACH 105 mL ipratropium-albuteroL (DUO-NEB) 0.5-2.5 mg/3 mL nebulizer solution 3 mL 3 mL, nebulization, Every 4 hours PRN (correspondence specialist), wheezing, shortness of breath, Starting on 01/15/23 at 2131, Indications: Chronic Obstructive Pulmonary Disease with BronchospasmsIndications:Chronic Obstructive Pulmonary Disease with Bronchospasms Given 01/16/2023 6:21 PM KIDS ACTIVITIES COACH 3 mL Given 01/16/2023 8:33 AM KIDS ACTIVITIES COACH 3 mL lidocaine (XYLOCAINE) 10 mg/mL (1 %) injection Code/trauma/sedation medication, Starting on Tue01/17/23 at 1027, Intra-Procedure (CV), Indications: Administration of Local AnesthesiaIndications:Administratio n of Local Anesthesia Given 01/17/2023 10:27 AM KIDS ACTIVITIES COACH 10 mL Right Groin metoprolol XL (TOPROL-XL) extended release tablet 25 mg 25 mg, oral, Daily, First dose on 01/17/23 at 1200, Hold for SBP < 100 or HR < 60. Tablets that are scored may be split, but do not crush, chew, dissolve, open or otherwise manipulate tablet/capsule., Indications: cardiovascular diseaseIndications:cardiovascular disease Given 01/18/2023 8:54 AM KIDS ACTIVITIES COACH 25 mg Given 01/17/2023 12:36 PM KIDS ACTIVITIES COACH 25 mg midazolam (VERSED) 1 mg/mL preservative free injection Administer over 2 Minutes, Code/trauma/sedation medication, Starting on 01/17/23 at 1025, Intra-Procedure (CV) Given 01/17/2023 10:27 AM KIDS ACTIVITIES COACH 1 mg Given 01/17/2023 10:25 AM KIDS ACTIVITIES COACH 1 mg mirtazapine (REMERON) tablet 15 mg 15 mg, oral, Nightly, First dose on 01/15/23 at 2215 Given 01/17/2023 9:47 PM KIDS ACTIVITIES COACH 15 mg Given 01/16/2023 8:41 PM KIDS ACTIVITIES COACH 15 mg Given 01/15/2023 10:39 PM KIDS ACTIVITIES COACH 15 mg ondansetron (ZOFRAN) injection 4 mg 4 mg, intravenous, Administer over 2 Minutes, Every 8 hours PRN, nausea, vomiting, Starting on 01/16/23 at 1445 ramelteon (ROZEREM) tablet 8 mg 8 mg, oral, Nightly PRN, sleep, Starting on 01/16/23 at 1445, Indications: Sleep-Onset InsomniaIndications:Sleep-Onset Insomnia sodium chloride 0.9% infusion 50 mL/hr, intravenous, Continuous, Starting on 01/16/23 at 1845, Pre-Procedure (CV) New Bag 01/17/2023 10:15 AM KIDS ACTIVITIES COACH 50 mL/hr 50 mL/hr New Bag 01/16/2023 6:09 PM KIDS ACTIVITIES COACH 50 mL/hr 50 mL/hr documented in this encounter Discontinued Medications Medication Sig Discontinue Reason Start Date End Da te cephalexin (KEFLEX) 500 mg capsule Take 500 mg by mouth every 6 (six) hours Therapy completed 09/16/2022 01/18/2023 methylPREDNISolone (MEDROL DOSEPACK) 4 mg Dosepack methylprednisolone 4 mg tablets in a dose pack Therapy completed 01/18/2023 documented as of this encounter Historical Medications * This list may reflect changes made after this encounter. ipratropium-albute roL (DUO-NEB) 0.5-2.5 mg/3 mL nebulizer solutionIndication s:Chronic Obstructive Pulmonary Disease with Bronchospasms Take 3 mL by nebulization every 6 (six) hours as needed for shortness of breath As needed added in this encounter Active and Recently Administered Medications Times are shown in [facility]IDS ACTIVITIES COACH. Scheduled Medication Order 01/16/2023 01/17/2023 01/18/2023 amLODIPine (NORVASC) tablet 5 mg 5 mg, oral, Daily, First dose on 01/16/23 at 0900 0933 (Given - Provider: Kim Osborn RN) 1006 (JAN Hold - Provider: Automatic Transfer Provider - Reason: Patient not available)1101 ([facility] Unhold - Provider: Automatic Transfer Provider)1130 (Given - Provider: Mynor Castro RN - Comment: seed analysis laboratory assistant) 0855 (Given - Provider: Mynor Castro RN) aspirin enteric coated tablet 81 mg 81 mg, oral, Daily, First dose on 01/16/23 at 0900, Do not crush, chew, cut, dissolve, open or otherwise manipulate tablet/capsule. 0933 (Given - Provider: Kim Osborn RN) 1006 ([facility] Hold - Provider: Automatic Transfer Provider - Reason: Patient not available)1101 ([facility] Unhold - Provider: Automatic Transfer Provider)1130 (Given - Provider: Mynor Castro RN - Comment: seed analysis laboratory assistant) 0855 (Given - Provider: Mynor Castro RN) benzonatate (TESSALON) capsule 200 mg 200 mg, oral, 3 times daily, First dose on 01/15/23 at 2215, Do not crush, chew, cut, dissolve, open or otherwise manipulate tablet/capsule., Indications: Cough 0933 (Given - Provider: Kim Osborn RN)1622 (Given - Provider: Kim Osborn RN)204 (Given - Provider: Jerman Hill RN) 1006 ([facility] Hold - Provider: Automatic Transfer Provider - Reason: Patient not available)1101 ([facility] Unhold - Provider: Automatic Transfer Provider)1130 (Given - Provider: Mynor Castro RN - Comment: seed analysis laboratory assistant)1810 (Given - Provider: Mynor Castro, RN)2147 (Given - Provider: Heather Aviles, ERICK) 0855 (Given - Provider: Mynor Castro RN) calcium carbonate (OS-YVROSE) tablet 1,250 mg 1,250 mg (500 mg of elemental calcium), oral, Daily, First dose on 01/16/23 at 0900 0937 (Given - Provider: Kim Osborn RN) 1006 ([facility] Hold - Provider: Automatic Transfer Provider - Reason: Patient not available)1101 ([facility] Unhold - Provider: Automatic Transfer Provider)1130 (Given - Provider: Mynor Castro RN - Comment: seed analysis laboratory assistant) 0855 (Given - Provider: Mynor Castro RN) enoxaparin (LOVENOX) syringe 40 mg 40 mg, subcutaneous, Daily (for enoxaparin), First dose on Tue01/17/23 at 2100, Indications: Deep Vein Thrombosis Prevention 2147 (Not Given - Provider: Heather Aviles RN - Reason: Patient/family refused) famotidine (PEPCID) tablet 20 mg 20 mg, oral, Daily, First dose on 01/16/23 at 0900 0933 (Given - Provider: Kim Osborn RN) 1006 ([facility] Hold - Provider: Automatic Transfer Provider - Reason: Patient not available)1101 ([facility] Unhold - Provider: Automatic Transfer Provider)1130 (Given - Provider: Mynor Castro RN - Comment: seed analysis laboratory assistant) 0855 (Given - Provider: Mynor Castro RN) fluticasone furoate-vilanteroL (BREO ELLIPTA) 100-25 mcg/dose inhaler 1 puff (CANCELED) 1 puff, inhalation, Daily (correspondence specialist), First dose on 01/16/23 at 0900, Rinse mouth with water after use. Do not swallow. 0833 (Given - Provider: Troy Castillo CRTT) 0857 (Given - Provider: Edgar Coyne CRTT)1006 ([facility] Hold - Provider: Automatic Transfer Provider - Reason: Patient not available)1012 ([facility] Unhold - Provider: Sol Lincoln MD) 0852 (Given - Provider: Jg Ruby, CONSOLE MANAGER - Comment: will begin new dose the the am 01/19/23) fluticasone furoate-vilanteroL (BREO ELLIPTA) 200-25 mcg/dose inhaler 1 puff 1 puff, inhalation, Daily (correspondence specialist), First dose on Tue01/18/23 at 0900, Rinse mouth with water after use. Do not swallow. 0853 (Not Given - Provider: Jg Ruby, FARHAT - Reason: Other - Comment: will begin in am 01/19/23) metoprolol XL (TOPROL-XL) extended release tablet 25 mg 25 mg, oral, Daily, First dose on 01/17/23 at 1200, Hold for SBP < 100 or HR < 60. Tablets that are scored may be split, but do not crush, chew, dissolve, open or otherwise manipulate tablet/capsule., Indications: cardiovascular disease 1236 (Given - Provider: Mynor Castro, ERICK) 0854 (Given - Provider: Mynor Castro RN) mirtazapine (REMERON) tablet 15 mg 15 mg, oral, Nightly, First dose on 01/15/23 at 2215 2041 (Given - Provider: Jerman Hill RN) 1006 ([facility] Hold - Provider: Automatic Transfer Provider - Reason: Patient not available)1101 ([facility] Unhold - Provider: Automatic Transfer Provider)2147 (Given - Provider: Heather Aviles RN) Continuous Medication Order 01/16/2023 01/17/2023 01/18/2023 heparin in 0.45% sodium chloride 25,000 units/250 mL (100 units/mL) infusion (premix) (CANCELED) 0-33 Units/kg/hr ? 56.2 kg (0-18.546 mL/hr, rounded to 0-18.55 mL/hr), intravenous, Titrated, Starting on 01/15/23 at 2200, WEIGHT-BASED HEPARIN INFUSION Initial rate:: 12 Units/kg/hr. Max initial rate 1,000 units/hr. Adjust infusion based upon nomogram: PTT less than 40 seconds: Bolus if ordered (see PRN bolus order) , then increase infusion rate 3 units/kg/hour PTT 40 - 50.9 seconds: Bolus if ordered (see PRN bolus order), then increase infusion rate 2 units/kg/hour PTT 51 - 59.9 seconds: No bolus, increase infusion rate 1 unit/kg/hour PTT 60 - 94.9 seconds: No change PTT 95 - 104.9 seconds: No bolus, decrease infusion rate 1 unit/kg/hour PTT 105 - 114.9 seconds: Hold infusion for 30 minutes, then decrease infusion rate 2 units/kg/hour PTT 115 or greater seconds: Hold infusion for 1 hour, then decrease infusion rate 3 units/kg/hour Draw STAT PTT 6 hrs after initiation of heparin infusion, draw STAT PTT 6 hours after each dose/rate change, and every 6 hours until 2 consecutive PTTs are within therapeutic range. Once two consecutive PTT's are therapeutic (60-94.9 seconds), then draw PTT every AM until heparin is discontinued., Indications: Acute Coronary Syndrome 0615 (Rate/Dose Change - Provider: Marilyn Blackmon RN)1244 (Rate/Dose Verify - Provider: Kim Osborn RN - Comment: ptt 63. no change)1919 (Rate/Dose Change - Provider: Kim Osborn RN)1924 (Handoff - Provider: Kim Osborn RN) 0740 (Rate/Dose Verify - Provider: Mynor Castro, RN)0741 (Rate/Dose Verify - Provider: Mynor Castro RN - Comment: Verified by supervisor in charge Dawn)1025 (Stopped - Provider: Jose Guadalupe Layton, RN) sodium chloride 0.9% infusion (CANCELED) 50 mL/hr, intravenous, Continuous, Starting on 01/16/23 at 1845, Pre-Procedure (CV) 1809 (New Bag - Provider: Kim Osborn, ERICK) 1015 (New Bag - Provider: Yoli Vang, RN)1133 (Stopped - Provider: Mynor Castro, RN) PRN Medication Order 01/16/2023 01/17/2023 01/18/2023 acetaminophen (TYLENOL) tablet 650 mg 650 mg, oral, Every 6 hours PRN, headaches, fever, Starting on 01/16/23 at 1444 1006 ([facility] Hold - Provider: Automatic Transfer Provider - Reason: Patient not available)1101 ([facility] Unhold - Provider: Automatic Transfer Provider) albuterol HFA (PROVENTIL HFA,VENTOLIN HFA,PROAIR HFA) 90 mcg/actuation inhaler 2 puff 2 puff, inhalation, Every 6 hours PRN (correspondence specialist), wheezing, Starting on 01/15/23 at 2038 1006 ([facility] Hold - Provider: Automatic Transfer Provider - Reason: Patient not available)1101 ([facility] Unhold - Provider: Automatic Transfer Provider) dextromethorphan-guaiFENesi n (ROBITUSSIN-DM) 2-20 mg/mL syrup 10 mL 10 mL, oral, 4 times daily PRN, cough, Starting on 01/15/23 at 2132 1006 ([facility] Hold - Provider: Automatic Transfer Provider - Reason: Patient not available)1101 ([facility] Unhold - Provider: Automatic Transfer Provider) fentaNYL (SUBLIMAZE) preservative free injection (CANCELED) Code/trauma/sedation medication, Starting on 01/17/23 at 1024, Intra-Procedure (CV) 1024 (Given - Provider: Yoli Vang RN)1027 (Given - Provider: Yoli Vang RN) fluticasone propionate (FLONASE) 50 mcg/actuation nasal spray 1 spray 1 spray, each nostril, 2 times daily PRN, rhinitis, Starting on 01/15/23 at 2134 1006 ([facility] Hold - Provider: Automatic Transfer Provider - Reason: Patient not available)1101 ([facility] Unhold - Provider: Automatic Transfer Provider) heparin 5,000 unit/mL injection 2,000 Units (CANCELED)(Linked Group 1) 2,000 Units, intravenous, Every 6 hours PRN, PTT 40-50.9 seconds, Starting on 01/15/23 at 2127, Subsequent bolus during heparin infusion., Indications: Acute Coronary Syndrome 0616 (See Alternative - Provider: Marilyn Blackmon RN)1919 (Given - Provider: Kim Osborn RN) 1006 ([facility] Hold - Provider: Automatic Transfer Provider - Reason: Patient not available)1101 ([facility] Unhold - Provider: Automatic Transfer Provider) heparin 5,000 unit/mL injection 3,000 Units (CANCELED)(Linked Group 1) 3,000 Units, intravenous, Every 6 hours PRN, PTT less than 40 seconds, Starting on 01/15/23 at 2127, Subsequent bolus during heparin infusion., Indications: Acute Coronary Syndrome 0616 (Given - Provider: Marilyn Blackmon, RN)1919 (See Alternative - Provider: Kim Osborn, ERICK) 1006 ([facility] Hold - Provider: Automatic Transfer Provider - Reason: Patient not available)1101 ([facility] - Provider: Automatic Transfer Provider) heparin in 0.9% sodium chloride 1,000 units/500 mL (2 unit/mL) infusion (premix) (CANCELED) Code/trauma/sedation medication, Starting on Tue01/17/23 at 1015, Intra-Procedure (CV) 1015 (Given - Provider: Sabine Espitia MD) ioversoL (OPTIRAY 350) injection 0.01-500 mL (COMPLETED) 0.01-500 mL, intravenous, Once in imaging, contrast, Starting on Tue01/16/23 at 1552, For 1 dose 1554 (Contrast Given - Provider: Jason Riggs RT) ioversoL (OPTIRAY 350) injection (CANCELED) Code/trauma/sedation medication, Starting on Tue01/17/23 at 1042, Intra-Procedure (CV) 1042 (Given - Provider: Sabine Espitia MD) ipratropium-albuteroL (DUO-NEB) 0.5-2.5 mg/3 mL nebulizer solution 3 mL 3 mL, nebulization, Every 4 hours PRN (correspondence specialist), wheezing, shortness of breath, Starting on 01/15/23 at 2131, Indications: Chronic Obstructive Pulmonary Disease with Bronchospasms 0833 (Given - Provider: Troy Castillo CRTT)1821 (Given - Provider: Troy Castillo CRTT) 1006 ([facility] Hold - Provider: Automatic Transfer Provider - Reason: Patient not available)1101 ([facility] - Provider: Automatic Transfer Provider) lidocaine (XYLOCAINE) 10 mg/mL (1 %) injection (CANCELED) Code/trauma/sedation medication, Starting on Tue01/17/23 at 1027, Intra-Procedure (CV), Indications: Administration of Local Anesthesia 1027 (Given - Provider: Sabine Espitia MD) midazolam (VERSED) 1 mg/mL preservative free injection (CANCELED) Administer over 2 Minutes, Code/trauma/sedation medication, Starting on 2/20/23 at 1025, Intra-Procedure (CV) 1025 (Given - Provider: Yoli Vang, RN)1027 (Given - Provider: Yoli Vang RN) ondansetron (ZOFRAN) injection 4 mg 4 mg, intravenous, Administer over 2 Minutes, Every 8 hours PRN, nausea, vomiting, Starting on 01/16/23 at 1445 1006 ([facility] Hold - Provider: Automatic Transfer Provider - Reason: Patient not available)1101 ([facility] - Provider: Automatic Transfer Provider) ramelteon (ROZEREM) tablet 8 mg 8 mg, oral, Nightly PRN, sleep, Starting on 01/16/23 at 1445, Indications: Sleep-Onset Insomnia 1006 ([facility] Hold - Provider: Automatic Transfer Provider - Reason: Patient not available)1101 ([facility] - Provider: Automatic Transfer Provider) Linked Groups Order Group 1: heparin 5,000 unit/mL injection 2,000 Units (CANCELED)Jump to med 2,000 Units, intravenous, Every 6 hours PRN, PTT 40-50.9 seconds, Starting on 01/15/23 at 2127, Subsequent bolus during heparin infusion., Indications: Acute Coronary Syndrome Or heparin 5,000 unit/mL injection 3,000 Units (CANCELED)Jump to med 3,000 Units, intravenous, Every 6 hours PRN, PTT less than 40 seconds, Starting on 01/15/23 at 2127, Subsequent bolus during heparin infusion., Indications: Acute Coronary Syndrome documented in this encounter Orders Medications Ordered That Krunal ht Not Have Been Administered Count Last Ordered Date First Ordered Date enoxaparin (LOVENOX) syringe 40 mg 1 2022 fluticasone furoate-vilanter oL (BREO ELLIPTA) 200-25 mcg/dose inhaler 1 puff 1 01/17/2023 metoprolol XL (TOPROL-XL) ex tended release tablet 25 mg 1 01/17/2023 acetaminophen (TYLENOL) tablet 650 mg 1 ioversoL (OPTIRAY 350) injec tion 0.01-500 mL 1 01/16/2023 ondansetron (ZOFRAN) injection 4 mg 1 01/16 ramelteon (ROZEREM) tablet 8 mg 1 albuterol HFA (PROVENTIL HFA ,VENTOLIN HFA,PROAIR HFA) 90 mcg/actuation inhaler 2 puff 1 01/15/2023 amLODIPine (NORVASC) tablet 5 mg 1 01/15/20 23 aspirin enteric coated tablet 81 mg 1 01/15 benzonatate (TESSALON) capsule 200 mg 1 calcium carbonate (OS-YVROSE) tablet 1,250 mg 1 01/15/2023 dextromethorphan-guaiFENesin (ROBITUSSIN-DM) 2-20 mg/mL syrup 10 mL 1 01/15/2023 famotidine (PEPCID) tablet 20 mg 1 01/15/20 23 fluticasone furoate-vilanter oL (BREO ELLIPTA) 100-25 mcg/dose inhaler 1 puff 1 01/15/2023 fluticasone propionate (FLON ASE) 50 mcg/actuation nasal spray 1 spray 1 01/15/2023 heparin 5,000 unit/mL inject ion 2,000 Units 1 01/15/2023 heparin 5,000 unit/mL inject ion 3,000 Units 1 01/15/2023 heparin in 0.45% sodium chlo ride 25,000 units/250 mL (100 units/mL) infusion (premix) 1 01/15/2023 ipratropium-albuteroL (DUO-N EB) 0.5-2.5 mg/3 mL nebulizer solution 3 mL 1 01/15/2023 mirtazapine (REMERON) tablet 15 mg 1 2022 Imaging Orders Without Results Count Last Order ed Date First Ordered Date HOME O2 EVAL (DESATURATION SCREEN) 1 2022 RT COMMUNICATION 1 01/18/2023 PULSE OXIMETRY STUDY 1 01/17/2023 Diet Count Last Ordered Date First Orde red Date ADULT DISCHARGE DIET 1 01/18/2023 Nursing Count Last Ordered Date First Orde red Date DISCHARGE ACTIVITY 1 01/18/2023 DISCHARGE CALL PROVIDER 8 01/18/2023 DISCHARGE INSTRUCTIONS 2 01/18/2023 NURSING COMMUNICATION 2 01/17/20232022 TELEMETRY MONITORING 2 01/17/2023 023 Consult Count Last Ordered Date First Orde red Date IP CONSULT TO CARDIOLOGY 1 01/16/2023 IP CONSULT TO PULMONOLOGY 1 01/16/2023 Admission Count Last Ordered Date First Orde red Date ADMIT TO INPATIENT 1 01/15/2023 Discharge Count Last Ordered Date First Orde red Date DISCHARGE PATIENT 1 01/18/2023 Case Request Count Last Ordered Date First Orde red Date 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
--- OUTSIDE RECORDS SUMMARY | 2024-11-18 11:55 | XMS_ITS | Encounter Summary ---
Author Organization [facility] Healthcare Address [address] [place] [address] Care Team Providers Care Home Health Assistant Name Role Phone Torito Gonzalez MD Primary Care Provider [phone] Reason for Visit * Reason Comments Injections PROLIA * Episode Based Medications (Routine) - Closed Specialty Diagnoses / Procedures Referred By Contac t Referred To Contact Diagnoses Age-related osteoporosis without current pathological fracture Alhaji Payan MD [address] [place] [address] [address] [place] [address] Phone: tel: fax: [address] [place] [id number] Phone: tel: Referral ID Status Reason Start Date Expiration Date Visits Re quested Visits Authorized [id number] Closed 12/22/2022 01/21/2024 1 1 Encounter Details Date Type Department Care Team (Latest Contact Info) Description 12/28/2022 2:00 PM UNDERLAY STITCHER Clinical Support [address] [place] [id number] Age-related osteoporosis without current pathological fracture (Primary Dx) Social History Tobacco Use Types Packs/Day Years Used Date Smoking Tobacco: Former Smokeless Tobacco: Never Comments:Smoking History Pac ks/day: 0.25 Packs Alcohol Use Standard Drinks/Week Comments No 0 (1 standard drink = 0.6 oz pur e alcohol) AUDIT-C Answer Date Recorded Q1: How often do you have a drink containing alc ohol? Monthly or less 04/21/2022 Q2: How many drinks containi ng alcohol do you have on a typical day when you are drinking? 1 or 2 04/21/2022 Q3: How often do you have si x or more drinks on one occasion? Less than monthly 04/21/2022 PHQ-2 Answer Date Recorded PHQ-2 Total Score (If total score is 3 or more points, staff should administer the PHQ-9) 0 09/01/2021 Comments No Sex and Gender Information Value Date Recorded Sex Assigned at Not on file Legal Sex Female 1:11 AM UNDERLAY STITCHER Gender Identity Not on file Sexual Orientation Not on file documented as of this encounter Last Filed Vital Signs Vital Sign Reading Time Taken Comments Blood Pressure 105/65 12/28/2022 1:32 PM UNDERLAY STITCHER Pulse 76 12/28/2022 1:32 PM UNDERLAY STITCHER Temperature 36.3 ??C (97.3 ??F) 12/28/2022 1:32 PM CS T Respiratory Rate 18 12/28/2022 1:32 PM UNDERLAY STITCHER Oxygen Saturation 97% 12/28/2022 1:32 PM UNDERLAY STITCHER Inhaled Oxygen Concentration - - Weight - - Height - - Body Mass Index - - documented in this encounter Nursing Notes * Dayan Ross, RN - 12/28/2022 2:00 PM CST PT. HERE FOR PROLIA SHOT ORDERED BY DR. PAYAN. PROLIA GIVEN SUBQ NOTED IN THE MAR. BANDAIDE APPLIED TO INSERTION SITE. NO FURTHER ORDERS NOTED. RLAY STITCHER documented in this encounter Plan of Treatment Not on file documented as of this encounter Visit Diagnoses Diagnosis Age-related osteoporosis without current pathological fracture- Primary documented in this encounter Administered Medications Inactive Administered Medications - up to 3 most recent administrations Medication Order MAR Action Action Date Dose Rate Site denosumab (PROLIA) subcutaneous syringe 60 mg 60 mg, subcutaneous, Once, On Tue12/28/22 at 1415, For 1 dose, Calcium level should be greater than 8 mg/dl. Injection to be given in the upper arm, thigh or abdomen. Refrigerate. Allow to stand 15 to 30 mins prior to useIndications:Age-related osteoporosis without current pathological fracture Given 12/28/2022 1:34 PM UNDERLAY STITCHER 60 mg Left Upper Arm documented in this encounter Orders Medications Ordered That Krunal ht Not Have Been Administered Count Last Ordered Date First Ordered Date denosumab (PROLIA) subcutane ous syringe 60 mg 1 12/28/2022 documented in this encounter Care Teams Home Health Assistant Relationship Specialty Start Date End Date Torito Gonzalez MD [address] [place] [address] PCP - General 02/25/17 documented as of this encounter
--- OUTSIDE RECORDS SUMMARY | 2024-11-18 11:55 | XMS_ITS | Encounter Summary ---
Author Organization [facility] Healthcare Address [address] [place] [address] Care Team Providers Care Icebox Man Name Role Phone Torito Gonzalez MD Primary Care Provider [phone]- [phone] Reason for Visit * Reason Comments Wound Check Encounter Details Date Type Department Care Team ([facility] st Contact Info) Description 01/25/2023 11:23 AM DIRECTOR OF PROPERTY MANAGEMENT - 01/25/2023 12:13 PM [facility] Emergency [facility] Emergency Department [address] [place] [address] Surgical wound infection (Primary Dx) Discharge Disposition: Discharge to home or self [...] often do you attend chur ch or latter-day services? More than 4 times per year [...] in a penitentiary (including now)? No 01/18/2023 Comments No Sex and Gender Information Value Date Recorded Sex Assigned at Not on file Legal Sex Female 1:11 AM DIRECTOR OF PROPERTY MANAGEMENT Gender Identity Not on file Sexual Orientation Not on file documented as of this encounter Last Filed Vital Signs Vital Sign Reading Time Taken Comments Blood Pressure 104/60 01/25/2023 11:01 AM DIRECTOR OF PROPERTY MANAGEMENT Pulse 72 01/25/2023 11:01 AM DIRECTOR OF PROPERTY MANAGEMENT Temperature 37.1 ??C (98.8 ??F) 01/25/2023 11:[address] Respiratory Rate 18 01/25/2023 11:01 AM DIRECTOR OF PROPERTY MANAGEMENT Oxygen Saturation 99% 01/25/2023 11:01 AM DIRECTOR OF PROPERTY MANAGEMENT Inhaled Oxygen Concentration - - Weight 56.2 kg (124 lb) 01/25/2023 11:01 AM DIRECTOR OF PROPERTY MANAGEMENT Height 165.1 cm (5' 5 ) 01/25/2023 11:01 AM DIRECTOR OF PROPERTY MANAGEMENT Body Mass Index 20.63 01/25/2023 11:01 AM DIRECTOR OF PROPERTY MANAGEMENT documented in this encounter Discharge Instructions * Discharge Instructions* Peter Aguilar PA - 01/25/2023 12:10 PM DIRECTOR OF PROPERTY MANAGEMENT Venipuncture Hygiene When you go to a hospital, lab or doctor's office and have blood drawn or testing, there should be very clean conditions. The equipment should be sterilized and surfaces cleaned with alcohol or a commercial medical shirt cleaner. Every needle should come out of a sealed package and screwed on to a new flange, and all Vacutainers that are vacuum-sealed to draw blood should be checked for expiration date. If all this is done correctly, there should be no way for the procedure to cause an infection at the injection site. Hematomas If you look at the injection site and see a small raised bump that is dark bluish in color, this isnot an infection, it is a hematoma. Sometimes when blood is drawn, the needle size might be too small or a vein starts to collapse a bit and blood rushes to the site and gathers where the needle was inserted. A hematoma is like a bruise and needs no further medical attention; it will go away on itsown in a few days. Bruising You may get bruising at the site of a needle injection. It can be very large, seeming to cover the entire inside of your elbow. It might be tender to the touch or even painful. But it is not an infection and it will go away on its own. Redness, Swelling and Fever Even with the best medical practices you can still contract an infection at the site of injection. Small particles of dirt or pathogens can get in and cause redness, swelling and fever. Make sure your seeing eye dog trainer cleans the area with alcohol before injection. If you do see redness and swelling at the site, first try topical antibacterial ointment. It's available over the counter at pharmacies and grocery stores. If you don't see improvement, or if you have a fever of over 101.5 degrees Fahrenheit or above, see a medical professional. You may need oral antibiotics or antibiotics by injection. CTOR OF PROPERTY MANAGEMENT documented in this encounter Medications at Time of Discharge albuterol HFA (PROVENTIL HFA,VENTOLIN HFA,PROAIR HFA) 90 mcg/actuation inhaler albuterol sulfate HFA 90 mcg/actuation aerosol inhaler INHALE 1 TO 2 PUFFS BY MOUTH EVERY 6 HOURS NEEDED FOR WHEEZING aspirin 81 mg tablet take 1 tablet by oral route every day 0 0 6 calcium carbonate (CALCIUM 600 ORAL) Take 1 tablet by mouth daily famotidine (PEPCID) 20 mg tablet Take 1 tablet (20 mg total) by mouth every other day fluticasone propionate (FLONASE) 50 mcg/actuation nasal spray Administer 1 spray into each nostril 2 (two) times a day as needed for rhinitis 1 each 3 ipratropium-albute roL (DUO-NEB) 0.5-2.5 mg/3 mL nebulizer solutionIndication s:Chronic Obstructive Pulmonary Disease with Bronchospasms Take 3 mL by nebulization every 6 (six) hours as needed for shortness of breath As needed sulfamethoxazole-t rimethoprim (BACTRIM DS) 800-160 mg per tablet Take 1 tablet by mouth 2 (two) times a day for 7 days smx-tmp DS (BACTRIM) 800-160 mg tabs. Antibiotic to treat wound infection. Collaborating physician Jaciel Aldana MD 14 tablet 3 02/02/20 23 amLODIPine (NORVASC) 5 mg tablet Take 1 tablet (5 mg total) by mouth daily 90 tablet 3 2 06/27/20 23 denosumab (PROLIA) 60 mg/mL syringe Inject 1 mL (60 mg total) under the skin once for 1 dose 1 mL 3 06/01/20 23 fluticasone furoate-vilanteroL (BREO ELLIPTA) 200-25 mcg/dose diskus inhaler Inhale 1 puff daily Rinse mouth with water after use. Do not swallow. 30 each 3 02/16/20 23 metoprolol XL (TOPROL-XL) 25 mg extended release tabletIndications: cardiovascular disease Take 1 tablet (25 mg total) by mouth daily 30 tablet 3 08/23/20 23 mirtazapine (REMERON) 15 mg tablet Take 1 tablet (15 mg total) by mouth nightly 30 tablet 3 08/23/20 23 mupirocin (BACTROBAN) 2 % ointment Apply topically 3 (three) times a day Collaborating physician Jaciel Aldana MD 22 g 3 08/23/20 23 documented as of this encounter Ordered Prescriptions Prescription Sig Dispense Quantity Refills Last Filled Start Date End Date sulfamethoxazole- trimethoprim (BACTRIM DS) 800-160 mg per tablet Take 1 tablet by mouth 2 (two) times a day for 7 days smx-tmp DS (BACTRIM) 800-160 mg tabs. Antibiotic to treat wound infection. Collaborating physician Jaciel Aldana MD 14 tablet 01/25/2023 02/02/20 23 mupirocin (BACTROBAN) 2 % ointment Apply topically 3 (three) times a day Collaborating physician Jaciel Aldana MD 22 g 01/25/2023 08/23/20 23 documented in this encounter Discharge Disposition Disposition Code Departure Means Destination Comment s Discharge to home or self care documented in this encounter ED Notes * Peter Aguilar PA - 01/25/2023 11:42 AM CST HPI Chief Complaint Patient presents with Wound Check 67-year-old female with past medical history of hypercholesterolemia, CAD, angina, hypertension, GERD, COPD, and depression presents with chief complaint of pain, swelling, and drainage to venipuncture site right inguinal region. Onset today. Patient had a cardiac catheterization at [facility] on 01/17/2023. Denies any complications to the site until today. Complains of mild aching pain aggravated by activity and touch. Denies fever. Patient History: Patient Active Problem List Diagnosis Date Noted Surgical wound infection 01/25/2023 Hypertension Gastroesophageal reflux disease without esophagitis COPD (chronic obstructive pulmonary disease) ([facility]) ([facility]) Depression NSTEMI (non-ST elevated myocardial infarction) ([facility]) ([facility]) 01/15/2023 Age-related osteoporosis without current pathological fracture 12/22/2022 Hx of colonic polyps 04/15/2022 Prinzmetal's angina ([facility]) ([facility]) 04/17/2021 CAD (coronary artery disease) 04/18/2020 Dysphagia 12/18/2018 Keratosis, senilis 01/10/2017 Benign neoplasm of soft tissues 01/10/2017 Hypercholesterolemia 04/13/2014 Past Medical History: Diagnosis Date Dysphagia GERD [...] ABDOMINAL HYSTERECTOMY W/ BILATERAL SALPINGOOPHORECTOMY 1995 [place]/BSO Family History Problem Relation Age of Onset Coronary artery disease Mother Coronary artery disease; Hypertension Mother Hypertension; Congenital heart disease Brother Congenital heart disease; Diabetes Brother Diabetes mellitus; Hypertension Brother Hypertension; Social History Tobacco Use Smoking status: Former Smokeless tobacco: Never Tobacco comments: Smoking History Packs/day: 0.25 Packs Vaping Use Vaping Use: Never used Substance and Sexual Activity Alcohol use: No Drug use: No Sexual activity: Not Currently Social History Social History Narrative Not on file Review of Systems Review of Systems All other systems reviewed negative. All available allergies, past medical history, past surgical history, social history, and medications reviewed from the medical record, nursing notes, and with patient Physical Exam ED Triage Vitals [01/25/23 1101] Temp Pulse Resp BP SpO2 37.1 ??C (98.8 ??F) 72 18 104/60 99 % Temp src Heart Rate Source Patient Position BP Location FiO2 (%) Temporal -- -- -- -- Height Height Method Weight Weight Method 1.651 m (5' 5 ) Stated 56.2 kg (124 lb) Stated Physical Exam Vitals and nursing note reviewed. Constitutional: General: She is not in acute distress. Appearance: Normal appearance. She is not ill-appearing, toxic-appearing or diaphoretic. HENT: Head: Normocephalic. Right Ear: External ear normal. Left Ear: External ear normal. Mouth/Throat: Pharynx: Oropharynx is clear. Cardiovascular: Rate and Rhythm: Normal rate and regular rhythm. Pulses: Normal pulses. Heart sounds: Normal heart sounds. Pulmonary: Effort: Pulmonary effort is normal. Breath sounds: Normal breath sounds. Abdominal: General: Abdomen is flat. Bowel sounds are normal. There is no distension. Palpations: Abdomen is soft. Tenderness: There is no abdominal tenderness. There is no right CVA tenderness, left CVA tendernessor guarding. Musculoskeletal: General: Normal range of motion. Cervical back: Normal range of motion. Skin: General: Skin is warm and dry. Comments: Right inguinal region exam - venipuncture site right inguinal region has small amount of pustular discharge coming from venipuncture. Area of underlying induration 2 cm x 3 cm without fluctuance. Entire area surrounded by ecchymosis. Area is tender to touch. Negative for lymphangitic streaking. Negative for palpable underlying fluid collection. Neurological: General: No focal deficit present. Mental Status: She is alert and oriented to person, place, and time. Psychiatric: Mood and Affect: Mood normal. Behavior: Behavior normal. Thought Content: Thought content normal. Judgment: Judgment normal. Voice recognition software [employer] Direct was used to dictate and transcribe this document. Scientist Propagator variances may occur. Despite proofreading, typographical errors may occur. MDM Medical Decision Making Differential diagnosis of possible causes of patient's skin problem: Fungal or bacterial cellulitis, abscess, folliculitis, trauma, seroma, hematoma. Emergency department plan: Reviewed labs ordered from triage. Culture obtained and sent to lab. Risk Risk Details: Discharge plan: Noted to patient that she has slightly low on protein and needs to increase her protein intake. Also noted elevation in eosinophils. Recommended she follow-up with her license registration examiner regarding this. Prescriptions for Bactrim DS and mupirocin sent to patient's preferred pharmacy. Follow-up with PCP. Return to the emergency department if worse. ED Course as of 01/25/23 1213 Time: 01/25 1145 Value: WBC(!): 10.9 Comment: (Reviewed) By: Peter Aguilar PA Time: 01/25 1146 Value: Monocyte abs(!): 1.1 Comment: (Reviewed) By: Peter Aguilar PA Time: 01/25 114 Value: Eosinophil abs(!): 2.4 Comment: Mild elevation of WBC count. Elevation of eosinophils and monocytes. By: Peter Aguilar PA Time: 01/25 1155 Value: Protein, pl(!): 6.4 Comment: (Reviewed) By: Peter Aguilar PA Time: 01/25 115 Value: Albumin(!): 3.4 Comment: Little low on protein. By: Peter Aguilar PA Time: 01/25 1155 Value: BUN: 14 Comment: (Reviewed) By: Peter Aguilar PA Time: 01/25 1155 Value: Creatinine: 0.74 Comment: (Reviewed) By: Peter Aguilar PA Time: 01/25 1155 Value: eGFR: 88 Comment: Kidney function intact By: Peter Aguilar PA Time: 01/25 1155 Value: Alk phos: 65 Comment: (Reviewed) By: Peter Aguilar PA Time: 01/25 1155 Value: ALT: 9 Comment: (Reviewed) By: Peter Aguilar PA Time: 01/25 1155 Value: AST: 15 Comment: Negative elevation in liver enzymes By: Peter Aguilar PA Time: 01/25 1155 Comment: Rechecked the patient- The patient is resting comfortably and appears in no acute distress. I discussed the results of the diagnostic studies / labs, my clinical impression, and the plan forfurther treatment with the patient. The patient agrees with the plan and discharge at this time, all questions addressed. The patient is medically stable for discharge at this time. I have given the patient instructions regarding their diagnosis, expectations, follow up, and return precautions. I explained to the patient that emergent conditions may arise and to return to the ERfor new, worsening, or any persistent conditions. I've explained the importance of following up with his/her Primary Care Physician- (or the referral physician listed) as instructed. The patient verbalized understanding of the discharge instructions By: Peter Aguilar PA Final diagnoses: Surgical wound infection - Venipuncture site infection right inguinal region Peter Aguilar PA 01/25/23 1213 Cosigned by Robert Montiel MD at 01/25/2023 1:13 PM DIRECTOR OF PROPERTY MANAGEMENT CTOR OF PROPERTY MANAGEMENT CTOR OF PROPERTY MANAGEMENT Associated attestation - Robert Montiel MD - 01/25/2023 1:13 PM DIRECTOR OF PROPERTY MANAGEMENT Based on the medical record, the care appears appropriate. * Sol Pope RN - 01/25/2023 11:00 AM CST Pt to triage for c/o a draining wound. Pt had a cardiac cath 8 days ago. Pt incision in draining and bleeding per pt. CTOR OF PROPERTY MANAGEMENT documented in this encounter Plan of Treatment Not on file documented as of this encounter Procedures Procedure Name Priority Date/Time Associated Diagnosis Comments AEROBIC AND ANAEROBIC CULTURE AND GRAM STAIN Routine 01/25/2023 11:56 AM DIRECTOR OF PROPERTY MANAGEMENT EGFR STAT 01/25/2023 11:26 AM DIRECTOR OF PROPERTY MANAGEMENT DIFFERENTIAL AUTO STAT 01/25/2023 11: 26 AM DIRECTOR OF PROPERTY MANAGEMENT CBC WITH AUTO DIFFERENTIAL STAT 01/25/2023 11:26 AM DIRECTOR OF PROPERTY MANAGEMENT COMPREHENSIVE METABOLIC PANEL STAT 01/25/2023 11:26 AM DIRECTOR OF PROPERTY MANAGEMENT documented in this encounter Results * Aerobic and anaerobic culture and gram stain Wound Inguinal (01/25/2023 11:56 AM DIRECTOR OF PROPERTY MANAGEMENT) Direct Specimen Exam Stain: Few polymorphonuclear leukocytes seen. No organisms seen. [facility] [employer]) Comment:Testing performed by : [facility], [address] [place]., [address] Report Final Report: No growth [facility] ([place]) Comment:Testing performed by : [facility], [address] [place]., [address] Wound (Inguinal) 01/25/2023 11:56 AM DIRECTOR OF PROPERTY MANAGEMENT 01/25/2023 3:45 PM DIRECTOR OF PROPERTY MANAGEMENT Narrative [facility]) - 01/28/2023 10:17 AM DIRECTOR OF PROPERTY MANAGEMENT Culture obtained from cardiac catheterization venipuncture site right inguinal region Testing performed by [facility] ([phone]) Specimens submitted from normally sterile body sites will have all bacterial morphotypes identified. Specimens that contain grossly mixed briana and/or are from body sites that are not normally sterile will be examined for Staphylococcus aureus, Pseudomonas aeruginosa, beta-hemolytic strep, vancomycin-resistant Enterococcus, Bacteroides, Parabacteroides, Clostridium perfringens and fungus. If any of these are isolated, the organism will be reported. Current interpretive data was last revised on 2020. Peter MARCH LAB MICROBIOLOGY - GENERAL O RDERABLES Final Result [facility]) 1 [facility] Department [place] [address] * eGFR (01/25/2023 11:26 AM DIRECTOR OF PROPERTY MANAGEMENT) Pathologist [facility] eGFR 88 mL/min/1. 73 m2 [employer] [employer] [facility]) Comment: Interpretive Data Reference Interval Normal ?>/= [...] interpretive data was last reviewed 2021. Blood 01/25/2023 11:2 6 AM DIRECTOR OF PROPERTY MANAGEMENT 01/25/2023 11:31 AM DIRECTOR OF PROPERTY MANAGEMENT us Raquel Dean MD LAB BLOOD ORDERABLES Estefania lopez Result [facility] 1 [facility] Department [place] [address] * (ABNORMAL) Differential, auto (01/25/2023 11:26 AM DIRECTOR OF PROPERTY MANAGEMENT) [facility] Neutrophil abs 4.5 1.7 - 6.5 K/cumm [facility] Imm gran abs 0.0 0.0 - 0.1 K/cumm [facility] Lymphocyte abs 2.8 0.8 - 3.3 K/cumm [facility]) Monocyte abs 1.1(H) 0.2 - 0.8 K/cumm [facility] Eosinophil abs 2.4(H) 0.0 - 0.5 K/cumm [facility]) Basophil abs 0.1 0.0 - 0.1 K/cumm [facility] Neutrophil pct 41.3 % [facility] Comment: Interpretive Data Percent cell count reference ranges are not reported, since discordance with absolute values may lead to misinterpretation of CBC data. Current Interpretive Data was last revised on 2018. Imm gran pct 0.4 % [facility] Comment: Interpretive Data Percent cell count reference ranges are not reported, since discordance with absolute values may lead to misinterpretation of CBC data. Current Interpretive Data was last revised on 2018. Lymphocyte pct 25.6 % [facility] Comment: Interpretive Data Percent cell count reference ranges are not reported, since discordance with absolute values may lead to misinterpretation of CBC data. Current Interpretive Data was last revised on 2018. Monocyte pct 9.7 % [facility] Comment: Interpretive Data Percent cell count reference ranges are not reported, since discordance with absolute values may lead to misinterpretation of CBC data. Current Interpretive Data was last revised on 2018. Eosinophil pct 22.1 % [facility] Comment: Interpretive Data Percent cell count reference ranges are not reported, since discordance with absolute values may lead to misinterpretation of CBC data. Current Interpretive Data was last revised on 2018. Basophil pct 0.9 % [facility] Comment: Interpretive Data Percent cell count reference ranges are not reported, since discordance with absolute values may lead to misinterpretation of CBC data. Current Interpretive Data was last revised on 2018. Blood 01/25/2023 11:2 6 AM DIRECTOR OF PROPERTY MANAGEMENT 01/25/2023 11:31 AM DIRECTOR OF PROPERTY MANAGEMENT us Raquel Dean MD LAB BLOOD ORDERABLES Estefania lopez Result [facility] 1 [facility] Department [place] [address] * (ABNORMAL) Comprehensive metabolic panel (01/25/2023 11:26 AM DIRECTOR OF PROPERTY MANAGEMENT) Sodium 136 135 - 145 mmol/L [facility] Potassium, pl 4.1 3.3 - 4.9 mmol/L [facility] Chloride 105 97 - 110 mmol/L [facility] CO2 24 22 - 32 mmol/L [facility] Anion gap 8 2 - 15 mmol/L [facility] BUN 14 8 - 25 mg/dL [facility] Creatinine 0.74 0.60 - 1.10 mg/dL [facility] Glucose 99 70 - 199 mg/dL [facility] [...] interpretive data was last revised 2022. Calcium 8.9 8.5 - 10.3 mg/dL [facility] Bilirubin, total 0.2 0.1 - 1.2 mg/dL [facility] Protein, pl 6.4(L) 6.5 - 8.5 g/dL [facility] Albumin 3.4(L) 3.5 - 5.0 g/dL [facility] Alk phos 65 40 - 130 Units/L [facility] ALT 9 7 - 45 Units/L [facility] AST 15 10 - 45 Units/L [facility] Blood 01/25/2023 11:2 6 AM DIRECTOR OF PROPERTY MANAGEMENT 01/25/2023 11:31 AM DIRECTOR OF PROPERTY MANAGEMENT Raquel Dean MD LAB BLOOD ORDERABLES Estefania l Result [facility] 1 [facility] [place] [address] * (ABNORMAL) CBC with auto differential (01/25/2023 11:26 AM DIRECTOR OF PROPERTY MANAGEMENT) WBC 10.9(H) 3.8 - 9.9 K/cumm [facility] Hgb 13.1 11.9 - 15.5 g/dL [facility] Hct 40.3 35.6 - 45.5 % [facility] Plt 270 150 - 400 K/cumm [facility] MPV 10.7 9.1 - 12.3 fL [facility] RBC 4.43 3.90 - 5.20 M/cumm [facility] MCV 91.0 81.3 - 96.4 fL [facility] MCH 29.6 27.1 - 33.3 pg [facility] MCHC 32.5 32.3 - 35.7 g/dL [facility] RDW CV 14.3 11.1 - 14.9 % [facility] RDW SD 47.8 35.7 - 48.1 fL [facility] NRBC abs 0.00 0.00 - 0.01 K/cumm [facility] Blood 01/25/2023 11:2 6 AM DIRECTOR OF PROPERTY MANAGEMENT 01/25/2023 11:31 AM DIRECTOR OF PROPERTY MANAGEMENT Raquel Dean MD LAB BLOOD ORDERABLES Estefania l Result Performing Organization Address City/[facility]/ZIP Co de Phone Number [facility] ([place]) 1 [facility] [place] [address] documented in this encounter Visit Diagnoses Diagnosis Surgical wound infection- Primary Other postoperative infection Surgical wound infection Other postoperative infection documented in this encounter Care Teams Icebox Man Relationship Specialty Start Date End Date Torito Gonzalez MD [address] [place] [address] PCP - General 02/25/17 documented as of this encounter
--- OUTSIDE RECORDS SUMMARY | 2024-11-18 11:55 | XMS_ITS | Encounter Summary ---
Author Organization [facility] Address [address] [facility] [address] [place] [address] Care Team Providers Care Radio Intelligence Operator Name Role Phone Torito Gonzalez MD Primary Care Provider [phone]- [phone] Reason for Visit * Reason Comments Hyperlipidemia Follow-up 6 month Encounter Details Date Type Department Care Team (Latest Contact Info) Description 02/15/2023 9:45 AM CDT Office Visit [facility] [address] [place] [phone] Jacob Espitia MD [address] [place] [id number] Hypercholesterolemia (Primary Dx); Prinzmetal's angina (CMS/HCC) (HCC); Primary hypertension; Panlobular emphysema (CMS/HCC) (HCC) Social History Tobacco Use Types Packs/Day Years [...] week 01/18/2023 How often do you attend [employer] [facility] services? More than 4 times per year [...] in a snf (including now)? 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 Gender Identity Not on file Sexual Orientation Not on file documented as of this encounter Last Filed Vital Signs Vital Sign Reading Time Taken Comments Blood Pressure 106/60 02/15/2023 9:31 AM CDT Lar ge Adult cuff Pulse 65 02/15/2023 9:31 AM CDT Temperature - - Respiratory Rate 16 02/15/2023 9:31 AM CDT Oxygen Saturation 92% 02/15/2023 9:31 AM CDT Inhaled Oxygen Concentration - - Weight 59.4 kg (131 lb) 02/15/2023 9:31 AM CDT Height 165.1 cm (5' 5 ) 02/15/2023 9:31 AM CDT Body Mass Index 21.8 02/15/2023 9:31 AM CDT documented in this encounter Progress Notes * Jacob Espitia MD - 02/15/2023 9:45 AM CDT Cardiology note Reason for Office Visit: Chief Complaint Patient presents with Hyperlipidemia Follow-up 6 month History of Present Illness: Gabbie Chris is a 67 y.o. female seen in follow up for [...] She had Covid pneumonia with recurrent hypoxemia. Past Medical History: Diagnosis Date Dysphagia GERD [...] for 1 dose (Patient taking differently: Inject 60 mg under the skin once Last injection 1 month ago) 1 mL 0 dupilumab (Dupixent Pen) 200 mg/1.14 mL pen injector Inject under the skin famotidine (PEPCID) 20 mg tablet Take 20 mg by mouth daily fluticasone propionate (FLONASE) 50 mcg/actuation nasal spray Administer 1 spray into each nostril 2 (two) times a day as needed for rhinitis 1 each 0 ipratropium-albuteroL (DUO-NEB) 0.5-2.5 mg/3 mL nebulizer solution Take by nebulization every 6 (six) hours mirtazapine (REMERON) 15 mg tablet Take 1 tablet (15 mg total) by mouth nightly 30 tablet 0 metoprolol XL (TOPROL-XL) 25 mg extended release tablet Take 1 tablet (25 mg total) by mouth daily 30 tablet 0 mupirocin (BACTROBAN) 2 % ointment Apply topically 3 (three) times a day Collaborating physician Jaciel Aldana MD (Patient not taking: Reported on 02/15/2023) 22 g 0 No current facility-administered medications for this visit. Vital Signs: Vitals BP 106/60 (BP Location: Right arm, Patient Position: Sitting) Pulse 65 Resp 16 Ht 165.1 cm (5' 5 ) Wt 59.4 kg (131 lb) SpO2 92% BMI 21.80 kg/m?? Vitals: 02/15/23 0931 BP: 106/60 Comment: Large Adult cuff Pulse: 65 Resp: 16 SpO2: 92% Wt Readings from Last 3 Encounters: 02/15/23 59.4 kg (131 lb) 01/25/23 56.2 kg (124 lb) 01/15/23 56.2 kg (124 lb) Physical Exam: Physical [...] LDL 110 05/21/2015 No results found for: TSH, T3FREE, FREET4 Testing: No results found. No results found for this or any previous visit.] CARDIOGRAPHICS: Impression and Plan: Diagnoses and all orders for this visit: Hypercholesterolemia (Primary) Prinzmetal's angina (CMS/HCC) (HCC) Assessment & Plan: Asymptomatic. Continue amlodipine. The patient's recent admission with elevated troponin and cardiac catheterization showing no coronary disease most likely represents hypoxemia induced ischemia from her COVID pneumonia. Primary hypertension Assessment & Plan: Controlled. Continue amlodipine and metoprolol. Panlobular emphysema (CMS/HCC) (HCC) Assessment & Plan: She is scheduled to see Pulmonary next week. DICTATION DISCLAIMER: This note is transcribed using the [employer] direct voice recognition system without human tool and die assembler. In an effort to expedite patient care, this note has not been adjusted for typographical, grammatical, and syntax by a trained resident medical officer. Portions of this note have been copied from the medical record, but edited appropriately to accurately reflect the patient's current clinical state. Thank you for the consult. We will be happy to follow in this patient's care. MORELIA Claire@12:41 PM Cc:Torito Gonzalez MD documented in this encounter Miscellaneous Notes * Assessment & Plan Note - Jacob Espitia MD - 02/15/2023 12:41 PM CDT Associated Problem(s): COPD (chronic obstructive pulmonary disease) (HCC) She is scheduled to see Pulmonary next week. * Assessment & Plan Note - Jacob Espitia MD - 02/15/2023 12:40 PM CDT Associated Problem(s): Hypertension Controlled. Continue amlodipine and metoprolol. * Assessment & Plan Note - Jacob Espitia MD - 02/15/2023 12:39 PM CDT Associated Problem(s): Prinzmetal's angina (CMS/HCC) (HCC) Asymptomatic. Continue amlodipine. The patient's recent admission with elevated troponin and cardiac catheterization showing no coronary disease most likely represents hypoxemia induced ischemia from her COVID pneumonia. documented in this encounter Plan of Treatment Not on file documented as of this encounter Visit Diagnoses Diagnosis Hypercholesterolemia- Primary Pure hypercholesterolemia Prinzmetal's angina (CMS/HCC) (HCC) Prinzmetal angina Primary hypertension Unspecified essential hypertension Panlobular emphysema (HCC) Other emphysema documented in this encounter Discontinued Medications Medication Sig Discontinue Reason Start Date End Da te fluticasone furoate-vilanteroL (BREO ELLIPTA) 200-25 mcg/dose diskus inhaler Inhale 1 puff daily Rinse mouth with water after use. Do not swallow. Cost of medication 01/18/2023 02/15/2023 documented as of this encounter Historical Medications * This list may reflect changes made after this encounter. dupilumab (Dupixent Pen) 200 mg/1.14 mL pen injector Inject 200 mg under the skin every 2 (two) weeks added in this encounter Care Teams Radio Intelligence Operator Relationship Specialty Start Date End Date Torito Gonzalez MD [address] [place] [address] PCP - General 02/25/17 documented as of this encounter
--- OUTSIDE RECORDS SUMMARY | 2024-11-18 11:55 | XMS_ITS | Encounter Summary ---
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 Called patient at this and scheduled her for 12/28/2022. Patient confirmed date and time. ASSEMBLER documented in this encounter Plan of Treatment Not on file documented as of this encounter Visit Diagnoses Not on filedocumented in this encounter Care Teams Credit Representative Relationship Specialty Start Date End Date Torito Gonzalez MD [address] [place] [address] PCP - General 02/25/17 documented as of this encounter
--- OUTSIDE RECORDS SUMMARY | 2024-11-18 11:55 | XMS_ITS | Encounter Summary ---
Author Organization [facility] Healthcare Address [address] [place] [address] Care Team Providers Care Lead Esthetician Name Role Phone Torito Gonzalez MD Primary Care Provider [phone]- [phone] Reason for Visit * Auth/Cert (Routine) Specialty Diagnoses / Procedures Referred By Contac t Referred To Contact Diagnoses NSTEMI (non-ST elevated myocardial infarction) (CMS/HCC) (HCC) NSTEMI Procedures na Referral ID Status Reason Start Date Expiration Date Visits Re quested Visits Authorized [id number] 1 1 Encounter Details Date Type Department Care Team (Latest Contact Info) Description 01/15/2023 7:52 PM CARPORT ERECTOR - 01/18/2023 2:00 PM CARPORT ERECTOR Hospital Encounter [place] [id number] Daquan Ragsdale MD [address] [place] [id number] Una Rod [id number] [place] [id number] [place] [id number] [address] NSTEMI (non-ST elevated myocardial infarction) (CMS/HCC) (HCC) (Primary Dx) Discharge Disposition: Discharge to home [...] any clubs o r organizations such as cheondoism groups, unions, fraternal or athletic groups, or [...] on file Legal Sex Female 1:11 AM CARPORT ERECTOR Gender Identity Not on file Sexual Orientation Not on file documented as of this encounter Last Filed Vital Signs Vital Sign Reading Time Taken Comments Blood Pressure 104/66 01/18/2023 12:14 PM CARPORT ERECTOR Pulse 73 01/18/2023 12:14 PM CARPORT ERECTOR Temperature 36.4 ??C (97.6 ??F) 01/18/2023 12:[address] Respiratory Rate 18 01/18/2023 4:00 AM CARPORT ERECTOR Oxygen Saturation 94% 01/18/2023 12:14 PM CARPORT ERECTOR Inhaled Oxygen Concentration - - Weight 56.2 kg (124 lb) 01/15/2023 8:09 PM CARPORT ERECTOR Height 165 cm (5' 4.96 ) 01/15/2023 8:09 PM CARPORT ERECTOR Body Mass Index 20.66 01/15/2023 8:09 PM CARPORT ERECTOR documented in this encounter Discharge Summaries * Samra Watt MD - 01/18/2023 1:21 PM CST Inpatient Discharge Summary Patient Name - Gabbie Dsouza Patient Age - 67 yrs Patient - [id number] [facility] - [id number] Document Creation Date: 01/18/2023 Admitting Provider, : Daquan Ragsdale MD Discharge Provider, MD: Samra Watt MD Primary Care Physician at Discharge: Torito Gonzalez MD [phone] Admission Date: 01/15/2023 Discharge Date/time: 01/18/2023 Admission Location: [facility] LOS - LOS: 3 days DETAILS OF HOSPITAL STAY Hospital Problems/Diagnoses Principal Problem: NSTEMI (non-ST elevated myocardial infarction) ([facility]) ([facility]) Active Problems: CAD (coronary artery disease) Hypertension Gastroesophageal reflux disease without esophagitis COPD (chronic obstructive pulmonary disease) ([facility]) ([facility]) Depression Reason for Hospitalization: 67 y.o. female with a PMHx significant for Dysphagia, GERD and HTN Patient presents to ED [place] with chief complaint of chest pain and was transferred to [facility] for higher level of care and intervention. [...] rescue inhaler puff and transferred her to [facility] ER. Patient stated her initial O2 sats [...] Your Medications These medications were sent to [facility] [address] [place] [address] 120[address] [facility] 120[address] [facility] [address] fluticasone furoate-vilanteroL 200-25 mcg/dose diskus inhaler fluticasone [...] ANGIOGRAPHY AND WITH OR WITHOUT LEFT VENTRICULOGRAM [id number] Outpatient Follow-Up: Future Appointments Date Time Provider Department Center 02/15/2023 9:45 AM Sabine Espitia MD [facility] 04/15/2023 9:00 AM Sabine Espitia MD [facility] Contact Information for Follow-ups Torito Gonzalez MD Specialty: Internal Medicine Relationship: [place] [address] Next Steps: Go to Instructions: Patient will go to follow-up PCP appointment as previously scheduled. Please schedule an appointment with the following provider(s): Torito Gonzalez MD [address] [place] [address] Go to Patient will go to follow-up PCP appointment as previously scheduled. ANCILLARY INFORMATION Other Procedures & Diagnostic Tests: ECG 12 lead Result Date: 01/16/2023 Vent Rate: 78 bpm RR Interval: 765 msec RI Interval: 155 msec QRS Duration: 77 msec QT Interval: 387 msec QTC Interval: 420 msec P-R-T Steger: -4 - 8 - 75 degrees SINUS RHYTHM SEPTAL MYOCARDIAL INFARCTION , PROBABLY OLD [40+ ms Q WAVE IN V1/V2] ABNORMAL ECG No old EKG Electronically Signed By: Dr. Norma Collins [facility] CT Chest PE (CTA) W Contrast [...] mg/dL 15 17 CREATININE mg/dL 0.65 0.65 CMT-[id number] mL/min/1.73 m2 95 95 GLUCOSE mg/dL 84 [...] Care Instructions Wound 01/17/23 Puncture Anterior;Right Groin [facility] site (Active) Wound Status Healing 01/18/23 0845 Site Assessment Dry;Intact;Clean 01/18/23 0845 Jennifer-wound Assessment Ecchymosis 01/18/23 0845 Closure Unable to assess 01/18/23 0845 Drainage [...] SARS-CoV-2 Vaccination (12+ yrs) PURPLE 02/03/2021, 02/24/2021 Smara Watt MD ORT ERECTOR documented in this encounter Medications at Time [...] ambulation. No CM follow-up needed. OZ Rodriguez-RN [facility] [phone] ORT ERECTOR * Chantal Johnston RRT - 01/18/2023 12:59 [...] with ambulation. $ Home O2 Assessment Yes ORT ERECTOR * Lang Rowe NP - 01/18/2023 11:40 [...] mg 5 mg oral Daily Manisha Contreras NP 5 mg at 01/18/23 0855 aspirin enteric coated tablet 81 mg 81 mg oral Daily Manisha Contreras WEATHERIZATION AND HOUSING INSPECTOR 81 mg at 01/18/23 0855 benzonatate (TESSALON) capsule 200 mg 200 mg oral TID Manisha Contreras WEATHERIZATION AND HOUSING INSPECTOR 200 mg at 01/18/23 0855 calcium carbonate (OS-YVROSE) tablet 1,250 mg 500 mg of elemental calcium oral Daily MarianneG. Ben WEATHERIZATION AND HOUSING INSPECTOR 1,250 mg at 01/18/23 0855 dextromethorphan-guaiFENesin (ROBITUSSIN-DM) 2-20 mg/mL syrup 10 mL 10 mL oral QID PRN Manisha Contreras NP enoxaparin (LOVENOX) syringe 40 mg 40 mg subcutaneous Daily-2100 Sabine Espitia MD famotidine (PEPCID) tablet 20 mg 20 mg oral Daily Manisha Contreras WEATHERIZATION AND HOUSING INSPECTOR 20 mg at 01/18/23 0855 fluticasone furoate-vilanteroL (BREO ELLIPTA) 200-25 mcg/dose inhaler 1 puff 1 puff inhalation Daily (RT) Sol Lincoln MD fluticasone propionate (FLONASE) 50 mcg/actuation nasal spray 1 spray 1 spray each nostril BID PRN Manisha Contreras NP ipratropium-albuteroL (DUO-NEB) 0.5-2.5 mg/3 mL nebulizer solution 3 mL 3 mL nebulization Q4H PRN (RT) Manisha Contreras WEATHERIZATION AND HOUSING INSPECTOR 3 mL at 01/16/23 1821 metoprolol XL (TOPROL-XL) extended release tablet 25 mg 25 mg oral Daily Sabine Espitia MD 25 mg at 01/18/23 0854 mirtazapine (REMERON) tablet 15 mg 15 mg oral Nightly Manisha Contreras, WEATHERIZATION AND HOUSING INSPECTOR 15 mg at 01/17/23 2147 ondansetron (ZOFRAN) [...] mg/dL 15 17 CREATININE mg/dL 0.65 0.65 [id number] mL/min/1.73 m2 95 95 GLUCOSE mg/dL 84 [...] Torito Gonzalez MD Phan, Samra Weller MD ORT ERECTOR * Josh Buchanan MD - 01/18/2023 11:09 [...] is followed by Dr Collier, Pulmonary at [facility] Had sinus surgery 2 weeks ago; recently started on Dupixent for nasal polyposis, has only received one dose Notes ongoing sinus drainage and occasional cough Presenting History: Mrs. Dsouza is a 67 y/o CF who carries a history of COPD and TOOTIE who presented to an OSH ER with complaints of chest pain and was then transferred to [facility] for higher level of careand intervention. Of [...] component Nasal polyps NSTEMI: insignificant CAD on [facility] 01/17 Acute hypoxic respiratory insufficiency Nocturnal hypoxemia Recs: - Increase to Breo 200 - May be better as an outpatient to have on Perforomist and Pulmicort nebs given the cost of the Advair and inability to afford prior to meeting her deductible vs doing the nebs through Medicare partB. Will defer to her outpatient manufacturing plant manager. - Hold on systemic steroids at this time - Wean supplemental O2 for SpO2 > 89% - will repeat an overnight nocturnal O2 study: no extended desaturation noted, no nocturnal oxygen required -resume Dupixent as outpt -pt to f/u with Pulmonary and ENT in [facility] after d/c ORT ERECTOR * Samra Watt MD - 01/17/2023 3:55 PM CST Daily Progress Hospital day: Hospital Day: 3 Patient Information Name: Gabbie Dsouza Date of : 1955 (67 y.o.) Date of Service: 01/17/2023 at 3:55 PM CHIEF COMPLAINT/ HOSPITAL COURSE For note patient was presented in the ED for to outside hospital with shortness of breath; was diagnosed with non STEMI and transferred to [facility] for higher level of care. 01/17: pt [...] tomorrow. Samra Watt MD 01/17/23 3:55 PM ORT ERECTOR * Marah Laura RN - 01/17/2023 12:40 PM CST CM attempted to meet with pt to complete assessment for initial discharge planning. Pt unavailable with nursing staff at this time. Will re-attempt later as time allows. OZ Rodriguez-RN [facility] [phone] ORT ERECTOR * Samra Watt MD - 01/16/2023 1:25 PM CST Daily Progress Hospital day: Hospital Day: 2 Patient Information Name: Gabbie Dsouza Date of : 1955 (67 y.o.) Date of Service: 01/16/2023 at 1:25 PM CHIEF COMPLAINT/ HOSPITAL COURSE For note patient was presented in the ED for to outside hospital with shortness of breath; was diagnosed with non STEMI and transferred to [facility] for higher level of care. 01/16 patient [...] 20 G Left;Proximal;Posterior Forearm (Active) Placement Date/Time: 01/15/236 IV Change Due: 01/22/23 Type: Angiocath Size [...] stay Samra Watt MD 01/16/23 1:25 PM ORT ERECTOR documented in this encounter H&P Notes * Sabine Espitia MD - 01/17/2023 10:21 AM CST I have reviewed the H&P, examined the patient, and endorse the findings as written. Plan of Care : Based on the above findings, I consider Gabbie Dsouza to be an acceptable risk for : Procedure(s): LEFT HEART CATHETERIZATION WITH CORONARY ANGIOGRAPHY AND WITH OR WITHOUT LEFT VENTRICULOGRAM 76821 ORT ERECTOR Source Note - Sabine Espitia MD - 01/16/2023 8:43 AM CARPORT ERECTOR Cardiology Consult Reason for Consult: NSTEMI Requesting Provider: Samra Watt MD Subjective Patient is a 67 y.o. female with chief complaint of shortness of breath. HPI: the patient is a 67-year-old female who I have been following for coronary vasospasm. She had a cardiac catheterization in 2009 at [facility] which showed no significant coronary disease and [...] sinus surgery for recurrent polyps 2022 at [facility]. The patient woke from a nap on 01/14/2023 with acute shortness of breath. She placed her oxygen and used her rescue inhaler w ith no relief. She denied any chest pain. She presented to the ER at [facility] where she is found to be in respiratory failure. Her troponin was also elevated compatible with a non ST elevation OK. her EKG however showed no acute ST-T [...] 3 mL, nebulization, Q4H PRN (RT), Manisha Contreras NP, 3 mL at 01/16/23 0833 mirtazapine (REMERON) tablet 15 mg, 15 mg, oral, Nightly, Manisha Contreras WEATHERIZATION AND HOUSING INSPECTOR, 15 mg at 01/15/23 2239 Allergies Allergen [...] Principal Problem: NSTEMI (non-ST elevated myocardial infarction) ([facility]) ([facility]) Active Problems: Hypertension Gastroesophageal reflux disease without esophagitis COPD (chronic obstructive pulmonary disease) ([facility]) ([facility]) Depression CAD (coronary artery disease) Impression 1. [...] Gastroesophageal reflux disease 5. Significant weight loss ORT ERECTOR * Manisha Contreras NP - 01/15/2023 8:24 PM CST History and Physical DATE OF SERVICE: 01/16/2023 12:06 AM Primary Care Physician: Torito Gonzalez MD [phone] SUBJECTIVE: Patient is a 67 y.o. female with a PMHx significant for Dysphagia, GERD and HTN Patient presents to ED [place] with chief complaint of chest pain and was transferred to [facility] for higher level of care and intervention. HPI: Patient reported she had previously had COVID in July. After discharge she had been on home O2 which she has not been using regularly. One week ago she had sinus surgery and has been very stuffy. Patient has been checking her O2 regularly. A patient reported she had been feeling well Alvin proximally 1 PM she took a nap. [...] old Abnormal ECG Vent rate 91 bpm RI int 148 ms QRS dur 89 ms QT/QTC 396/444 ms P-R-T axes -12 -6 48 Assessment /Plan Principal Problem: NSTEMI (non-ST elevated myocardial infarction) ([facility]/HCC) ([facility]) Active Problems: CAD (coronary artery disease) Hypertension Gastroesophageal reflux disease without esophagitis COPD (chronic obstructive pulmonary disease) (CMS/HCC) ([facility]) Depression NSTEMI- consult to cardiology, anticoagulation with Heparin drip restarted , NPO after MN for possible intervention, Obtaining follow-up series of cardiac enzymes and EKG HTN- obtain vital signs per floor protocol and adjust medication as needed continue amlodipine 5 mgevery day Leukocytosis- WBC 14.6, patient did receive steroid in ER prior to transfer, Chest x-ray from [place] negative for infiltration, UA pending CAD- ASA 81 mg every day GERD- Pepcid 20 mg every day COPD- patient has hx of smoking, continue Breo daily, rescue inhaler and nebulizer's PRN Depression- mirtazapine 15 mg QHS DVT prophylaxis- anticoagulated with therapeutic heparin drip Full Code Estimated length of Stay: Inpatient > 2 midnights Manisha Contreras [facility] Hospitalists [phone] 01/16/2023 12:06 AM My total encounter time 01/16/2023 was 37 minutes which was spent in the activities documented in the note this time includes time spent to the visit and after in direct care of the patient. This timedoes not include time spent in any separately reportable services Cosigned by Daquan Ragsdale MD at 01/16/2023 4:04 AM CARPORT ERECTOR ORT ERECTOR ORT ERECTOR Associated attestation - Daquan Ragsdale MD - 01/16/2023 4:04 AM CARPORT ERECTOR I personally performed a substantive portion of [...] chest pain and was then transferred to [facility] for higher level of care and intervention. [...] shortness of breath. Negative for hemoptysis, sputum productionand wheezing. Cardiovascular: Negative for chest pain, palpitations [...] Medicare partB. Will defer to her outpatient manufacturing plant manager. - Hold on systemic steroids at this time - Await results of LHC - Wean supplemental O2 for SpO2 > 89% - will repeat an overnight nocturnal O2 study, she may require O2 at night when sleeping. Chart reviewed ORT ERECTOR * Sabine Espitia MD - 01/16/2023 8:43 AM CSTAssociated Order(s): IP CONSULT TO CARDIOLOGY Cardiology Consult Reason for Consult: NSTEMI Requesting Provider: Samra Watt MD Subjective Patient is a 67 y.o. female with chief complaint of shortness of breath. HPI: the patient is a 67-year-old female who I have been following for coronary vasospasm. She had a cardiac catheterization in 2009 at [facility] which showed no significant coronary disease and [...] sinus surgery for recurrent polyps 2022 at [facility]. The patient woke from a nap on 01/14/2023 with acute shortness of breath. She placed her oxygen and used her rescue inhaler w ith no relief. She denied any chest pain. She presented to the ER at [facility] where she is found to be in respiratory failure. Her troponin was also elevated compatible with a non ST elevation OK. her EKG however showed no acute ST-T [...] mL, nebulization, Q4H PRN (RT), Manisha Contreras, WEATHERIZATION AND HOUSING INSPECTOR, 3 mL at 01/16/23 0833 mirtazapine (REMERON) tablet 15 mg, 15 mg, oral, Nightly, Manisha Contreras, WEATHERIZATION AND HOUSING INSPECTOR, 15 mg at 01/15/23 2239 Allergies Allergen [...] Principal Problem: NSTEMI (non-ST elevated myocardial infarction) ([facility]) ([facility]) Active Problems: Hypertension Gastroesophageal reflux disease without esophagitis COPD (chronic obstructive pulmonary disease) (CMS/HCC) ([facility]) Depression CAD (coronary artery disease) Impression 1. [...] Gastroesophageal reflux disease 5. Significant weight loss ORT ERECTOR documented in this encounter Nursing Notes * Mynor Castro RN - 01/18/2023 1:45 PM CST Discharge instructions reviewed with patient and at bedside. ORT ERECTOR * Mynor Castro RN - 01/17/2023 11:24 AM CST Patient returned from laborer general. Assessed right groin site, gauze/tegaderm intact, soft on palpation, no drainage noted. Patient to remain bedrest until 1300. Patient verbalizes no pain at this time. Will monitor vital signs. ORT ERECTOR * Mynor Castro RN - 01/17/2023 9:58 AM CST Patient to laborer general per bed, IV infusing heparin gtt at 17units/hr. ORT ERECTOR * Marilyn Blackmon RN - 01/16/2023 6:19 AM CST Heparin drip not therapeutic. Bolus given and rate increased by 3unit/kg/hr per orders. Next PTT lab draw order for six hours after rate change. Dual signoff complete ORT ERECTOR * Marilyn Blackmon RN - 01/15/2023 8:43 PM CST Patient arrived with no fluids infusing. Received in report patient was on a heparin drip ORT ERECTOR * Marilyn Blackmon RN - 01/15/2023 8:37 PM CST Patient arrived via EMS. Patient able to ambulate to bed unassisted by staff. Oxygen in place [place] 3L. Review of hospital policy, orientation to room. Call light in reach. Belongings reviewed. Denies pain ORT ERECTOR documented in this encounter Miscellaneous Notes * [...] adequate tissue perfusion Outcome: Adequate for Discharge ORT ERECTOR * Plan of Care - Marah Laura RN - 01/18/2023 11:33 AM CST CM Initial Assessment Interview Note Information Obtained From: Patient (01/18/23 113) Admission Source: Transfer from [facility] Impression: NSTEMI Plan Includes: Cardiology & Pulmonology consulted; s/p cardiac cath, oxygen assessment Primary Source of Transportation: Does the patient need discharge transport arranged?: No (01/18/23 113) Health Insurance Coverage: Medicare; [facility] Prescription Coverage: MEDDADV Pharmacy: [facility] [address] [place] [address] [facility] [address] [address] Primary Care Provider: Torito Gonzalez MD Prior to Admission: Primary Caregiver: Self Who does the patient or legal guardian want to receive education instruction and discharge plans for after care assistance?: Decline Caregiver Name: lian fernandez Relationship to patient: Support System: Spouse/Significant Other Support system contact info (name, phone, availablity): Lian Lee, spouse [phone] Home Care Services: No Durable Medical Equipment: [...] a week How often do you attend cheondoism or mormon services?: More than 4 times per year Do you belong to any clubs or organizations such as cheondoism groups, unions, fraternal or athletic groups, or [...] L O2 as needed for SOB per [place]. Goal is to return home with no new needs upon discharge. Pt will states has a PCP follow-up appointment & will use [facility] [place]. Spouse to provide ride home upon discharge. [...] Collaboration with patient, MD, direct care nurse, Lining Strap Closer, and other members of the health care team to assure needed interventions completed. 2. Return patient to optimal level of self-care post discharge. 3. Personal Health Coach will follow for Discharge Planning - interventions as needed 4. Anticipated level of care at discharge 5. Planned Discharge Disposition OZ Rodriguez-RN [facility] [phone] ORT ERECTOR * Plan of Care - Heather Aviles RN - 01/18/2023 3:59 AM CST Goals: Clinical Goals for the Shift: VSS, safety, comfort, nocturnal O2 study tonight Summary: VSS, right groin remains soft, without hematoma. Nocturnal O2 study done ORT ERECTOR * Pre-Sedation Documentation - Sabine Espitia MD - 01/17/2023 10:21 AM CARPORT ERECTOR Sedation Plan ASA 2 - Mild systemic disease Mallampati class: II. Risks, benefits, and alternatives discussed with patient. The procedure of cardiac catheterization and possible PCI was reviewed with the patient including the risks of infection, bleeding, arterial damage, dye allergy, renal failure, CVA, OK, and . The patient understands the procedure and risks and gives informed consent. ORT ERECTOR ORT ERECTOR * Plan of Care - Jerman Hill RN - 01/17/2023 3:26 AM CST Goals: Clinical Goals for the Shift: stable VS, comfort, and safety Summary: Problem: Health Behavior: Goal: Understanding of discharge needs will improve Outcome: Progressing Problem: Medication: Goal: Satisfaction with pain management regimen will improve Outcome: Progressing Problem: Sensory: Goal: Pain level will decrease Outcome: Progressing ORT ERECTOR * Plan of Care - Kim Osborn [...] increase the pain will improve Outcome: Progressing ORT ERECTOR * Plan of Care - Marilyn Blackmon RN - 01/15/2023 8:35 PM CST Goals: Pain control, respiratory monitoring, vitals comfort Summary: ORT ERECTOR documented in this encounter Plan of Treatment Not on file documented as of this encounter Procedures Procedure Name Priority Date/Time Associated Diagnosis Comments HOME O2 EVAL (DESATURATION SCREEN) Routine 01/18/2023 12:01 PM CARPORT ERECTOR RT COMMUNICATION Routine 01/18/2023 11:1 6 AM CARPORT ERECTOR EGFR Routine 01/18/2023 5:50 AM CARPORT ERECTOR BASIC METABOLIC PANEL Routine 01/18/2023 5:50 AM CARPORT ERECTOR PULSE OXIMETRY STUDY Routine 01/17/2023 9:30 PM CARPORT ERECTOR LEFT HEART CATHETERIZATION WITH CORONARY ANGIOGRAPHY AND WITH AND WITHOUT LEFT VENTRICULOGRAM Routine 01/17/2023 10:44 AM CARPORT ERECTOR NSTEMI (non-ST elevated myocardial infarction) (CMS/HCC) (HCC) TRANSTHORACIC ECHO (TTE) COMPLETE W DOPPLER/CF WO CONTRAST Routine 01/17/2023 8:55 AM CARPORT ERECTOR APTT Timed 01/17/2023 7:05 AM CARPORT ERECTOR APTT Timed 01/17/2023 1:22 AM CARPORT ERECTOR APTT Timed 01/16/2023 6:[address] CHEST PE W CONTRAST ED Urgent/IP Urgent 01/16/2023 3:59 PM CARPORT ERECTOR APTT STAT 01/16/2023 11:30 AM CARPORT ERECTOR TROPONIN T HIGH-SENSITIVITY 6-HOUR Timed 01/16/2023 11:22 AM CARPORT ERECTOR LIPID PANEL Routine 01/16/2023 11:22 AM CARPORT ERECTOR ECG 12-LEAD STAT 01/16/2023 9:16 AM CARPORT ERECTOR TROPONIN T HIGH-SENSITIVITY 4-HR Timed 01/16/2023 8:36 AM CARPORT ERECTOR TROPONIN T HIGH-SENSITIVITY 2-HOUR Timed 01/16/2023 7:31 AM CARPORT ERECTOR URINALYSIS AND REFLEX TO MICROSCOPIC AND CULTURE Routine 01/16/2023 5:45 AM CARPORT ERECTOR URINALYSIS, MICROSCOPIC ONLY Routine 01/16/2023 5:45 AM CARPORT ERECTOR TROPONIN T HIGH-SENSITIVITY SERIES (BASELINE, 2HR, 4HR, 6HR) Routine 01/16/2023 5:01 AM CARPORT ERECTOR EGFR Routine 01/16/2023 5:01 AM CARPORT ERECTOR DIFFERENTIAL AUTO Routine 01/16/2023 5:0 1 AM CARPORT ERECTOR CBC WITH AUTO DIFFERENTIAL Routine 01/16/2023 5:01 AM CARPORT ERECTOR APTT STAT 01/16/2023 5:01 AM CARPORT ERECTOR COMPREHENSIVE METABOLIC PANEL Routine 01/16/2023 5:01 AM CARPORT ERECTOR APTT STAT 01/15/2023 9:50 PM CARPORT ERECTOR PROTIME-INR STAT 01/15/2023 9:50 PM CARPORT ERECTOR CBC WITHOUT DIFFERENTIAL STAT 01/15/2023 9:50 PM CARPORT ERECTOR documented in this encounter Results * eGFR (01/18/2023 5:50 AM CARPORT ERECTOR) [facility] eGFR 95 mL/min/1. 73 m2 [...] last reviewed 2021. Blood 01/18/2023 5:50 AM CARPORT ERECTOR 01/18/2023 6:27 AM CARPORT ERECTOR us Sabine Espitia MD LAB BLOOD ORDERABLES Final Res ult [facility] [address] [address] [place] [address] * (ABNORMAL) Basic metabolic panel (01/18/2023 5:50 AM CARPORT ERECTOR) Sodium 139 135 - 145 mmol/L CERNER Potassium, pl 4.1 3.3 - 4.9 mmol/L [facility] CH Chloride 110 97 - 110 mmol/L [facility] CO2 20(L) 22 - 32 mmol/L CERN[facility] Anion gap 9 2 - 15 mmol/L [facility] BUN 15 8 - 25 mg/dL [facility] Creatinine 0.65 0.60 - 1.10 mg/dL [facility] Glucose 84 70 - 199 mg/dL [facility] Comment: Interpretive Data Fasting glucose >/= [...] 8.1(L) 8.5 - 10.3 mg/dL [facility] CH Blood 01/18/2023 5:50 AM CARPORT ERECTOR 01/18/2023 6:27 AM CARPORT ERECTOR us Sabine Espitia MD LAB BLOOD ORDERABLES Final Res ult [facility] D[place]GLAS [address] [facility] [place] [address] * LEFT HEART CATHETERIZATION WITH CORONARY ANGIOGRAPHY AND WITH AND WITHOUT LEFT VENTRICULOGRAM (01/17/2023 10:44 AM CARPORT ERECTOR) Anatomical Region Laterality Modality X-Ray Angiograph y Narrative 01/17/2023 11:13 AM CARPORT ERECTOR Cardiac Catheterization Operative Report Gabbie Dsouza [id number] 01/17/2023 @PCP@ Indications:: myocardial infarction. History: ??The [...] Access: Location: ??Right femoral artery Sheath: ??5 Comoran Disposition: ??5 Comoran Mynx Catheters: ??5 [place] sheath, 5 [place] JL4, 5 [place] JR4, 5 [place] pigtail, 5 [place] Mynx. Procedure Details The risks, benefits, complications, treatment options, and expected outcomes were discussed with the patient. The patient and/or family concurred with the proposed plan, giving informed consent. Patient was brought to the laborer general after IV hydration was begun. She was further sedated with fentanyl and midazolam. She was prepped and draped in the usual manner. Using the modified Seldinger access technique, a 5 Comoran sheath was placed in the right femoral [...] W DOPPLER/CF WO CONTRAST (01/17/2023 8:55 AM CARPORT ERECTOR) Anatomical Region Laterality Modality Ultrasound 01/17/2023 8:32 AM CARPORT ERECTOR Narrative 01/17/2023 10:18 AM CARPORT ERECTOR [address], [place] [address] Echocardiogram Report Patient Name: GABBIE DSOUZA E : 1955 Study Date: 01/17/2023 8:32:09 AM Gender: F Tech: Location: [id number] Ref.Provider: SABINE ESPITIA Height(Cm): 165 BSA: Weight(Kg): [...] regurgitation. Electronically Signed By: Sabine Espitia MD, [facility] 2023-01-17 10:18:09 CARPORT ERECTOR CC: CC: Procedure Note Sabine Espitia MD - 01/17/2023 [place] [address] Echocardiogram Report Patient Name: GABBIE DSOUZA EPatient ID: [id number] : [id number] Date: 01/17/2023 8:32:09 AM Gender: FAccession #: [id number] Tech: SMLocation: [id number] Ref.Provider: SABINE ESPITIAHeight(Cm): 165 BSA: Weight(Kg): 56 [...] - 100 ] msec MVA2.90 MV Decel [id number] [ 104 - 258 ] msec PV [...] regurgitation. Electronically Signed By: Sabine Espitia MD, [facility] 2023-01-17 10:18:09 CARPORT ERECTOR CC: CC: us Sabine Espitia MD CV ECHO PROCEDURES Final Resul t * (ABNORMAL) aPTT (01/17/2023 7:05 AM CARPORT ERECTOR) aPTT 72(H) 27 - 37 sec [facility] Comment: Interpretive Data Therapeutic heparin range: 60.0 - 94.0 seconds. Based on correlation with therapeutic heparin activity range of 0.3-0.7 Units/mL. Current interpretive data was last revised on 2021. Blood 01/17/2023 7:05 AM CARPORT ERECTOR 01/17/2023 7:22 AM CARPORT ERECTOR Samra Watt MD LAB BLOOD ORDERABLES Final Res ult Performing Organization Address [facility] de Phone Number [facility] [address] [address] [employer] [address] * (ABNORMAL) aPTT (01/17/2023 1:22 AM CARPORT ERECTOR) aPTT 80(H) 27 - 37 sec [facility] Comment: Interpretive Data Therapeutic heparin range: 60.0 - 94.0 seconds. Based on correlation with therapeutic heparin activity range of 0.3-0.7 Units/mL. Current interpretive data was last revised on 2021. Blood 01/17/2023 1:22 AM CARPORT ERECTOR 01/17/2023 1:26 AM CARPORT ERECTOR Samra Watt MD LAB BLOOD ORDERABLES Final Res ult Performing Organization Address [facility] de Phone Number [facility] [address] [address] [facility] [place] [address] * (ABNORMAL) aPTT (01/16/2023 6:14 PM CARPORT ERECTOR) aPTT 46(H) 27 - 37 sec [facility] Comment: Interpretive Data Therapeutic heparin range: 60.0 - 94.0 seconds. Based on correlation with therapeutic heparin activity range of 0.3-0.7 Units/mL. Current interpretive data was last revised on 2021. Blood 01/16/2023 6:14 PM CARPORT ERECTOR 01/16/2023 6:17 PM CARPORT ERECTOR us Sabine Espitia MD LAB BLOOD ORDERABLES Final Res ult [place] [address] Department [place] [address] * CT Chest PE (CTA) W Contrast (01/16/2023 3:59 PM CARPORT ERECTOR) Anatomical Region Laterality Modality Body N/A Computed Tomogra phy 01/16/2023 3:53 PM CARPORT ERECTOR Impressions 01/17/2023 10:04 AM CARPORT ERECTOR No evidence of acute pulmonary embolism. Diffuse bronchial thickening with lower lobe basal predominant mucoid impaction and subsegmental atelectasis. ??Findings could be due to bronchitis acute or chronic or reactive airway disease. Trace pericardial effusion. Electronically signed by: Nadia Arroyo M.D. Narrative 01/17/2023 10:04 AM CARPORT ERECTOR Examination: CT CHEST PE (CTA) W CONTRAST [...] Comparison: None. Preliminary report was given by ad. Findings: ??No acute pulmonary embolism is seen [...] Result * (ABNORMAL) aPTT (01/16/2023 11:30 AM CARPORT ERECTOR) aPTT 63(H) 27 - 37 sec [facility] Comment: Interpretive Data Therapeutic heparin range: 60.0 - 94.0 seconds. Based on correlation with therapeutic heparin activity range of 0.3-0.7 Units/mL. Current interpretive data was last revised on 2021. Blood 01/16/2023 11:3 0 AM CARPORT ERECTOR 01/16/2023 11:34 AM CARPORT ERECTOR Sabine Espitia MD LAB BLOOD ORDERABLES Final Res ult [place] [address] [facility] Department [place] [address] * Lipid panel (01/16/2023 11:22 AM CARPORT ERECTOR) Cholesterol 195 30 - 199 mg/dL [facility] Comment: Interpretive Data Ages < [...] on 2018. HDL 67 >=40 mg/dL [facility] Comment: Interpretive Data Ages < [...] last revised on 2018. Chol/HDL ratio 3 [facility] Blood 01/16/2023 11:2 2 AM CARPORT ERECTOR 01/16/2023 11:34 AM CARPORT ERECTOR Sabine Espitia MD LAB BLOOD ORDERABLES Final Res ult Performing Organization Address [facility] Co de Phone Number [facility] [address] [place] [address] * (ABNORMAL) Troponin T high-sensitivity 6-hour (01/16/2023 11:22 AM CARPORT ERECTOR) Trop T hs 186(H) <=14 ng/L [facility] Comment: Interpretive Data For further hscTnT resources including the diagnostic algorithm and an aid in interpretation, copy and paste this link: [email or web address].testcatalog.org/show/[email or web address] Current Interpretive Data last revised 2020. Trop T hs pct delta -18 % [facility] Trop T hs interp Equivocal [facility] Blood 01/16/2023 11:2 2 AM CARPORT ERECTOR 01/16/2023 11:34 AM CARPORT ERECTOR Manisha Contreras NP LAB BLOOD ORDERABLES Estefania l Result Performing Organization Address [facility] Co de Phone Number [place] [place] [address] [address] [place] [address] * ECG 12 lead (01/16/2023 9:16 AM CARPORT ERECTOR) 01/16/2023 9:16 AM CARPORT ERECTOR Narrative [facility] - 01/16/2023 1:19 PM CARPORT ERECTOR Vent Rate: 78 bpm RR Interval: 765 msec RI Interval: 155 msec QRS Duration: 77 msec QT Interval: 387 msec QTC Interval: 420 msec P-R-T Steger: -4 - 8 - 75 degrees SINUS RHYTHM SEPTAL MYOCARDIAL INFARCTION , PROBABLY OLD [40+ ms Q WAVE IN V1/V2] ABNORMAL ECG No old EKG Electronically Signed By: Dr. Norma Collins [facility] Manisha Contreras WEATHERIZATION AND HOUSING INSPECTOR ECG ORDERABLES Final Res ult [facility] * (ABNORMAL) Troponin T high-sensitivity 4-hour (01/16/2023 8:36 AM CARPORT ERECTOR) Trop T hs 207(C) <=14 ng/L [facility] Comment: Critical Result called to and read back by Persistent Abnormal Result, DATE: 2023-01-16 09:16:21 BY: Aimee Garcia Interpretive Data For further hscTnT resources including the diagnostic algorithm and an aid in interpretation, copy and paste this link: [email or web address]/show/[email or web address] Current Interpretive Data last revised 2020. Trop T hs pct delta -9 % [facility] Trop T hs interp Equivocal [facility] Blood 01/16/2023 8:36 AM CARPORT ERECTOR 01/16/2023 8:44 AM CARPORT ERECTOR Manisha Contreras NP LAB BLOOD ORDERABLES Estefania l Result Performing Organization Address City/[facility]/ZIP Co de Phone Number [facility] [address] [address] Department [place] [address] * (ABNORMAL) Troponin T high-sensitivity 2-hour (01/16/2023 7:31 AM CARPORT ERECTOR) Trop T hs 208(C) <=14 ng/L [facility] Comment: Critical Result called to and read back by Persistent Abnormal Result, DATE: 2023-01-16 08:08:27 BY: Aimee Garcia Interpretive Data For further hscTnT resources including the diagnostic algorithm and an aid in interpretation, copy and paste this link: [email or web address]/[email or web address] Current Interpretive Data last revised 2020. Trop T hs pct delta -9 % [facility]ER CH Trop T hs interp Equivocal [facility] CH Blood 01/16/2023 7:31 AM CARPORT ERECTOR 01/16/2023 7:40 AM CARPORT ERECTOR Manisha Contreras WEATHERIZATION AND HOUSING INSPECTOR LAB BLOOD ORDERABLES Estefania lopez Result Performing Organization Address [facility] de Phone Number [facility] [address] [address] [facility] [employer] [place], [place] [address] * (ABNORMAL) Urinalysis, microscopic only (01/16/2023 5:45 AM CARPORT ERECTOR) WBC, ur 0-5 0 - 5 /HPF CERNER CH RBC, ur 0-2 0 - 2 /HPF C[facility] CH Epithelial cells, squamous, ur 1-5 0 - 5 /HPF CERNER CH Bacteria, ur 1+(A) CERNER CH Culture Reflex Comment Reflex conditions for urine culture (WBC >10) not met. CERNER CH Urine 01/16/2023 5:45 AM CARPORT ERECTOR 01/16/2023 5:55 AM CARPORT ERECTOR Manisha Contreras WEATHERIZATION AND HOUSING INSPECTOR LAB URINE ORDERABLES Estefania lopez Result Performing Organization Address [facility] Phone Number [facility] [address] [address] [facility] [place] [place] [address] * (ABNORMAL) Urinalysis reflex to microscopic and culture Urine (01/16/2023 5:45 AM CARPORT ERECTOR) Color, ur Yellow Yellow [facility]ER CH Clarity, [...] be performed. [facility] Urine 01/16/2023 5:45 AM CARPORT ERECTOR 01/16/2023 5:55 AM CARPORT ERECTOR Narrative [facility] - 01/16/2023 6:09 AM CARPORT ERECTOR ?? Urine pH is affected by diet, medications, systemic acid-base disturbances, and renal tubular function. ??pH may affect urinary stone formation. ??For example, urine pH below 6.0 may help reduce the tendency for calcium phosphate stones and pH greater than 6.0 may reduce the tendency for uric acid stone formation. Source: [employer]. Last revised 12-08-2017 us Manisha Contreras NP LAB MICROBIOLOGY - GENERA L ORDERABLES Final Result [facility] [address] Department [place] [address] * eGFR (01/16/2023 5:01 AM CARPORT ERECTOR) eGFR 95 mL/min/1. 73 m2 [facility] Comment: [...] last reviewed 2021. Blood 01/16/2023 5:01 AM CARPORT ERECTOR 01/16/2023 5:14 AM CARPORT ERECTOR us Manisha Contreras WEATHERIZATION AND HOUSING INSPECTOR LAB BLOOD ORDERABLES Estefania lopez Result [facility] [address] [address] Department [place] [address] * (ABNORMAL) Differential, auto (01/16/2023 5:01 AM CARPORT ERECTOR) Neutrophil abs 10.4(H) 1.7 - 6.5 K/cumm CERNER Imm gran abs 0.1 0.0 - 0.1 K/cumm [facility] Lymphocyte abs 3.6(H) 0.8 - 3.3 K/cumm [facility] Monocyte abs 1.4(H) 0.2 - 0.8 K/cumm [facility] Eosinophil abs 0.0 0.0 - 0.5 K/cumm [facility] Basophil abs 0.1 0.0 - 0.1 K/cumm [facility] Neutrophil pct 66.6 % [facility] Comment: Interpretive Data Percent cell count reference ranges are not reported, since discordance with absolute values may lead to misinterpretation of CBC data. Current Interpretive Data was last revised on 2018. Imm gran pct 0.5 % [facility] Comment: Interpretive Data Percent cell count reference ranges are not reported, since discordance with absolute values may lead to misinterpretation of CBC data. Current Interpretive Data was last revised on 2018. Lymphocyte pct 23.3 % [facility] Comment: Interpretive Data Percent cell count reference ranges are not reported, since discordance with absolute values may lead to misinterpretation of CBC data. Current Interpretive Data was last revised on 2018. Monocyte pct 9.2 % [facility] Comment: Interpretive Data Percent cell count reference ranges are not reported, since discordance with absolute values may lead to misinterpretation of CBC data. Current Interpretive Data was last revised on 2018. Eosinophil pct 0.1 % [facility] Comment: Interpretive Data Percent cell count [...] revised on 2018. Blood 01/16/2023 5:01 AM CARPORT ERECTOR 01/16/2023 5:13 AM CARPORT ERECTOR Manisha Contreras NP LAB BLOOD ORDERABLES Estefania l Result Performing Organization Address City/[facility] Co de Phone Number [facility] [address] [place] [address] * (ABNORMAL) Troponin T high-sensitivity series (baseline, 2hr, 4hr, 6hr) (01/16/2023 5:01 AM CARPORT ERECTOR) Trop T hs 228(C) <=14 ng/L [facility] Comment: Critical Result called to and read back by marilyn blackmon, DATE: 2023-01-16 06:56:29 BY: ayah contreras Interpretive Data For further hscTnT resources including the diagnostic algorithm and an aid in interpretation, copy and paste this link: https://nrl.testcatalog.org/show/[email or web address] Current Interpretive Data last revised 2020. Blood 01/16/2023 5:01 AM CARPORT ERECTOR 01/16/2023 6:26 AM CARPORT ERECTOR Manisha Contreras NP LAB BLOOD ORDERABLES Estefania l Result Performing Organization Address City/[facility]/ZIP Co de Phone Number [place] DOUGLAS [address] [address] [facility] [place], [place] [address] * aPTT (01/16/2023 5:01 AM CARPORT ERECTOR) aPTT 32 27 - 37 sec [facility] Comment: Interpretive Data Therapeutic heparin range: 60.0 - 94.0 seconds. Based on correlation with therapeutic heparin activity range of 0.3-0.7 Units/mL. Current interpretive data was last revised on 2021. Blood 01/16/2023 5:01 AM CARPORT ERECTOR 01/16/2023 5:13 AM CARPORT ERECTOR us Una Magdalenoshaw DO LAB BLOOD ORDERABLES Estefania l Result [facility] [address] [address] Department [place] [address] * (ABNORMAL) Comprehensive metabolic panel (01/16/2023 5:01 AM CARPORT ERECTOR) Sodium 143 135 - 145 mmol/L CERNER [...] Units/L [facility] CH Blood 01/16/2023 5:01 AM CARPORT ERECTOR 01/16/2023 5:14 AM CARPORT ERECTOR Manisha Contreras WEATHERIZATION AND HOUSING INSPECTOR LAB BLOOD ORDERABLES Estefania l Result Performing Organization Address [facility] Co de Phone Number [facility] [place] [address] [address] [place] [address] * (ABNORMAL) CBC with auto differential (01/16/2023 5:01 AM CARPORT ERECTOR) WBC 15.6(H) 3.8 - 9.9 K/cumm CERNER [...] K/cumm [facility] CH Blood 01/16/2023 5:01 AM CARPORT ERECTOR 01/16/2023 5:13 AM CARPORT ERECTOR Manisha Contreras WEATHERIZATION AND HOUSING INSPECTOR LAB BLOOD ORDERABLES Estefania l Result Performing Organization Address City/[facility]/ZIP Co de Phone Number [facility] [place] [address] [address] [facility] [employer] [place], [place] [id number] * aPTT (01/15/2023 9:50 PM CARPORT ERECTOR) aPTT 27 27 - 37 sec [facility] Comment: Interpretive Data Therapeutic heparin range: 60.0 - 94.0 seconds. Based on correlation with therapeutic heparin activity range of 0.3-0.7 Units/mL. Current interpretive data was last revised on 2021. Blood 01/15/2023 9:50 PM CARPORT ERECTOR 01/15/2023 9:53 PM CARPORT ERECTOR Narrative [facility] - 01/15/2023 10:15 PM CARPORT ERECTOR Baseline prior to heparin initiation Manisha Contreras WEATHERIZATION AND HOUSING INSPECTOR LAB BLOOD ORDERABLES Estefania l Result [facility] [address] [address] [place] [address] * (ABNORMAL) CBC without differential (01/15/2023 9:50 PM CARPORT ERECTOR) [facility] Signature WBC 14.6(H) 3.8 - 9.9 K/cumm [facility] Hgb 13.2 11.9 - 15.5 g/dL CERNER Hct 39.2 35.6 - 45.5 % CERNER Plt 258 150 - 400 K/cumm [facility] MPV 10.3 9.1 - 12.3 fL CERNER RBC 4.41 3.90 - 5.20 M/cumm CERNER CH MCV 88.9 81.3 - 96.4 fL CERNER MCH 29.9 27.1 - 33.3 pg CERNER MCHC 33.7 32.3 - 35.7 g/dL CERNER RDW CV 13.9 11.1 - 14.9 % CERNER CH RDW SD 45.6 35.7 - 48.1 fL CERNER NRBC abs 0.00 0.00 - 0.01 K/cumm CERNER Blood 01/15/2023 9:50 PM CARPORT ERECTOR 01/15/2023 9:53 PM CARPORT ERECTOR Narrative CERNER - 01/15/2023 9:57 PM CARPORT ERECTOR Baseline prior to heparin initiation Manisha Contreras NP LAB BLOOD ORDERABLES Estefania l Result Performing Organization Address City/[facility]/ZIP Co de Phone Number [facility] DOUGL[place] [address] [address] [place] [address] * Protime-INR (01/15/2023 9:50 PM CARPORT ERECTOR) PT 13.1 9.2 - 13.5 sec [facility] INR 1.2 0.9 - 1.2 [facility] Comment: Interpretive data Oral anticoagulant therapeutic ranges: Venous thromboembolism prophylaxis or treatment: 2.0-3.0 CARDIOLOGY Standard range: 2.0-3.0 High-intensity range: 2.5-3.5 Refer to indication-specific guidelines for appropriate target ranges for prosthetic heart valve replacement. Current interpretive data was last revised on 2019. Blood 01/15/2023 9:50 PM CARPORT ERECTOR 01/15/2023 9:53 PM CARPORT ERECTOR Narrative [facility] - 01/15/2023 10:12 PM CARPORT ERECTOR Baseline prior to heparin initiation Manisha Contreras NP LAB BLOOD ORDERABLES Estefania l Result [facility] [place] [address] [place] [address] documented in this encounter Visit Diagnoses Diagnosis NSTEMI (non-ST elevated myocardial infarction) ([facility]) ([facility])- Primary Acute myocardial infarction, subendocardial infarction, episode of care unspecified NSTEMI (non-ST elevated myocardial infarction) ([facility]) ([facility]) Acute myocardial infarction, subendocardial infarction, episode of care unspecified Hypertension Unspecified essential hypertension CAD (coronary artery disease) Coronary atherosclerosis of unspecified type of vessel, sitka or graft Gastroesophageal reflux disease without esophagitis Esophageal reflux COPD (chronic obstructive pulmonary disease) ([facility]) Chronic airway obstruction, not elsewhere classified Depression Depressive disorder, not elsewhere classified NSTEMI (non-ST elevated myocardial infarction) ([facility]) ([facility]) Acute myocardial infarction, subendocardial infarction, episode of care unspecified documented in this encounter Admitting Diagnoses Diagnosis NSTEMI (non-ST elevated myocardial infarction) (CMS/HCC) ([facility]) Acute myocardial infarction, subendocardial infarction, episode of [...] 01/16/23 at 0900 Given 01/18/2023 8:55 AM CARPORT ERECTOR 5 mg Given 01/17/2023 11:30 AM CARPORT ERECTOR 5 mg Given 01/16/2023 9:33 AM CARPORT ERECTOR 5 mg aspirin enteric coated tablet 81 mg 81 mg, oral, Daily, First dose on 01/16/23 at 0900, Do not crush, chew, cut, dissolve, open or otherwise manipulate tablet/capsule. Given 01/18/2023 8:55 AM CARPORT ERECTOR 81 mg Given 01/17/2023 11:30 AM CARPORT ERECTOR 81 mg Given 01/16/2023 9:33 AM CARPORT ERECTOR 81 mg benzonatate (TESSALON) capsule 200 mg 200 mg, oral, 3 times daily, First dose on 01/15/23 at 2215, Do not crush, chew, cut, dissolve, open or otherwise manipulate tablet/capsule., Indications: CoughIndications:Cough Given 01/18/2023 8:55 AM CARPORT ERECTOR 200 mg Given 01/17/2023 9:47 PM CARPORT ERECTOR 200 mg Given 01/17/2023 6:10 PM CARPORT ERECTOR 200 mg calcium carbonate (OS-YVROSE) tablet 1,250 mg 1,250 mg (500 mg of elemental calcium), oral, Daily, First dose on 01/16/23 at 0900 Given 01/18/2023 8:55 AM CARPORT ERECTOR 1,250 mg Given 01/17/2023 11:30 AM CARPORT ERECTOR 1,250 mg Given 01/16/2023 9:37 AM CARPORT ERECTOR 1,250 mg dextromethorphan-guaiFENesin (ROBITUSSIN-DM) 2-20 mg/mL syrup 10 mL 10 mL, oral, 4 times daily PRN, cough, Starting on 01/15/23 at 2132 famotidine (PEPCID) tablet 20 mg 20 mg, oral, Daily, First dose on 01/16/23 at 0900 Given 01/18/2023 8:55 AM CARPORT ERECTOR 20 mg Given 01/17/2023 11:30 AM CARPORT ERECTOR 20 mg Given 01/16/2023 9:33 AM CARPORT ERECTOR 20 mg fluticasone furoate-vilanteroL (BREO ELLIPTA) 100-25 mcg/dose inhaler 1 puff 1 puff, inhalation, Daily (manager respiratory), First dose on Tue01/16/23 at 0900, Rinse mouth with water after use. Do not swallow. Given 01/18/2023 8:52 AM CARPORT ERECTOR 1 puff Given 01/17/2023 8:57 AM CARPORT ERECTOR 1 puff Given 01/16/2023 8:33 AM CARPORT ERECTOR 1 puff fluticasone furoate-vilanteroL (BREO ELLIPTA) 200-25 mcg/dose inhaler 1 puff 1 puff, inhalation, Daily (manager respiratory), First dose on Tue01/18/23 at 0900, Rinse mouth with water after use. Do not swallow. fluticasone propionate (FLONASE) 50 mcg/actuation nasal spray 1 spray 1 spray, each nostril, 2 times daily PRN, rhinitis, Starting on 01/15/23 at 2134 heparin 5,000 unit/mL injection 2,000 Units 2,000 Units, intravenous, Every 6 hours PRN, PTT 40-50.9 seconds, Starting on 01/15/23 at 2127, Subsequent bolus during heparin infusion., Indications: Acute Coronary SyndromeIndications:Acut e Coronary Syndrome Given 01/16/2023 7:19 PM CARPORT ERECTOR 2,000 Units heparin 5,000 unit/mL injection 3,000 Units 3,000 Units, intravenous, Every 6 hours PRN, PTT less than 40 seconds, Starting on 01/15/23 at 7, Subsequent bolus during heparin infusion., Indications: Acute Coronary SyndromeIndications:Acut e Coronary Syndrome Given 01/16/2023 6:16 AM CARPORT ERECTOR 3,000 Units heparin in 0.45% sodium chloride 25,000 units/250 mL (100 units/mL) infusion (premix) 0-33 Units/kg/hr ? 56.2 kg (0-18.546 mL/hr, [...] until heparin is discontinued., Indications: Acute Coronary SyndromeIndications:Acut e Coronary Syndrome Rate/Dose Verify 01/17/2023 7:41 AM CARPORT ERECTOR 17 Units/kg/hr 9.55 mL/hr Rate/Dose Verify 01/17/2023 7:40 AM CARPORT ERECTOR 17 Units/kg/hr 9.5 5 mL/hr Rate/Dose Change 01/16/2023 7:19 PM CARPORT ERECTOR 17 Units/kg/hr 9.5 5 mL/hr ioversoL (OPTIRAY 350) injection 0.01-500 mL 0.01-500 mL, intravenous, Once in imaging, contrast, Starting on 01/16/23 at 1552, For 1 dose Contrast Given 01/16/2023 3:54 PM CARPORT ERECTOR 100 mL ipratropium-albuteroL (DUO-NEB) 0.5-2.5 mg/3 mL nebulizer solution 3 mL 3 mL, nebulization, Every 4 hours PRN (manager respiratory), wheezing, shortness of breath, Starting on 01/15/23 at 2131, Indications: Chronic Obstructive Pulmonary Disease with BronchospasmsIndications:Chronic Obstructive Pulmonary Disease with Bronchospasms Given 01/16/2023 6:21 PM CARPORT ERECTOR 3 mL Given 01/16/2023 8:33 AM CARPORT ERECTOR 3 mL metoprolol XL (TOPROL-XL) extended release tablet 25 mg 25 mg, oral, Daily, First dose on 01/17/23 at 1200, Hold for SBP < 100 or HR < 60. Tablets that are scored may be split, but do not crush, chew, dissolve, open or otherwise manipulate tablet/capsule., Indications: cardiovascular diseaseIndications:cardiovascular disease Given 01/18/2023 8:54 AM CARPORT ERECTOR 25 mg Given 01/17/2023 12:36 PM CARPORT ERECTOR 25 mg mirtazapine (REMERON) tablet 15 mg 15 mg, oral, Nightly, First dose on 01/15/23 at 2215 Given 01/17/2023 9:47 PM CARPORT ERECTOR 15 mg Given 01/16/2023 8:41 PM CARPORT ERECTOR 15 mg Given 01/15/2023 10:39 PM CARPORT ERECTOR 15 mg ondansetron (ZOFRAN) injection 4 mg [...] Pre-Procedure (CV) New Bag 01/17/2023 10:15 AM CARPORT ERECTOR 50 mL/hr 50 mL/hr New Bag 01/16/2023 6:09 PM CARPORT ERECTOR 50 mL/hr 50 mL/hr documented in this [...] Recently Administered Medications Times are shown in CARPORT ERECTOR. Scheduled Medication Order 01/16/2023 01/17/2023 01/18/2023 amLODIPine (NORVASC) tablet 5 mg 5 mg, oral, Daily, First dose on 01/16/23 at 0900 0933 (Given - Provider: Kim Osborn RN) 1006 ([facility] Hold - Provider: Automatic Transfer Provider - Reason: Patient not available)1101 ([facility] Unhold - Provider: Automatic Transfer Provider)1130 (Given - Provider: Mynor Castro RN - Comment: blood bank laboratory professional) 0855 (Given - Provider: Mynor Castro RN) aspirin enteric coated tablet 81 mg 81 mg, oral, Daily, First dose on 01/16/23 at 0900, Do not crush, chew, cut, dissolve, open or otherwise manipulate tablet/capsule. 0933 (Given - Provider: Kim Osborn RN) 1006 ([facility] Hold - Provider: Automatic Transfer Provider - Reason: Patient not available)1101 ([facility] Unhold - Provider: Automatic Transfer Provider)1130 (Given - Provider: Mynor Castro RN - Comment: blood bank laboratory professional) 0855 (Given - Provider: Mynor Castro RN) benzonatate (TESSALON) capsule 200 mg 200 mg, oral, 3 times daily, First dose on 01/15/23 at 2215, Do not crush, chew, cut, dissolve, open or otherwise manipulate tablet/capsule., Indications: Cough 0933 (Given - Provider: Kim Osborn RN)1622 (Given - Provider: Kim Osborn RN)204 (Given - Provider: Jerman Hill RN) 1006 ([facility] Hold - Provider: Automatic Transfer Provider - Reason: Patient not available)1101 ([facility] Unhold - Provider: Automatic Transfer Provider)1130 (Given - Provider: Mynor Castro RN - Comment: blood bank laboratory professional)1810 (Given - Provider: Mynor Castro RN)2147 (Given - Provider: Heather Aviles RN) 0855 (Given - Provider: Mynor Castro RN) calcium carbonate (OS-YVROSE) tablet 1,250 mg 1,250 mg (500 mg of elemental calcium), oral, Daily, First dose on 01/16/23 at 0900 0937 (Given - Provider: Kim Osborn RN) 1006 ([facility] Hold - Provider: Automatic Transfer Provider - Reason: Patient not available)1101 ([facility] Unhold - Provider: Automatic Transfer Provider)1130 (Given - Provider: Mynor Castro, ERICK - Comment: blood bank laboratory professional) 0855 (Given - Provider: Mynor Castro RN) enoxaparin (LOVENOX) syringe 40 mg 40 mg, subcutaneous, Daily (for enoxaparin), First dose on 01/17/23 at 2100, Indications: Deep Vein Thrombosis Prevention 2148 (Not Given - Provider: Heather Aviles RN - Reason: Patient/family refused) famotidine (PEPCID) tablet 20 mg 20 mg, oral, Daily, First dose on 01/16/23 at 0900 0933 (Given - Provider: Kim Osborn RN) 1006 ([facility] Hold - Provider: Automatic Transfer Provider - Reason: Patient not available)1101 ([facility] Unhold - Provider: Automatic Transfer Provider)1130 (Given - Provider: Mynor Castro RN - Comment: blood bank laboratory professional) 0855 (Given - Provider: Mynor Castro RN) fluticasone furoate-vilanteroL (BREO ELLIPTA) 100-25 mcg/dose inhaler 1 puff (CANCELED) 1 puff, inhalation, Daily (manager respiratory), First dose on 01/16/23 at 0900, Rinse mouth with water after use. Do not swallow. 0833 (Given - Provider: Troy Castillo CRTT) 0857 (Given - Provider: Edgar Coyne CRTT)1006 ([facility] Hold - Provider: Automatic Transfer Provider - Reason: Patient not available)1012 ([facility] Unhold - Provider: Sol Lincoln MD) 0852 (Given - Provider: Jg Ruby RRT - Comment: will begin new dose the the am 01/19/23) fluticasone furoate-vilanteroL (BREO ELLIPTA) 200-25 mcg/dose inhaler 1 puff 1 puff, inhalation, Daily (manager respiratory), First dose on Tue01/18/23 at 0900, Rinse mouth with water after use. Do not swallow. 0853 (Not Given - Provider: Jg Ruby RRT - Reason: Other - Comment: will begin [...] disease 1236 (Given - Provider: Mynor Castro, RN) 0854 (Given - Provider: Mynor Castro, ERICK) mirtazapine (REMERON) tablet 15 mg 15 mg, oral, Nightly, First dose on 01/15/23 at 2215 2041 (Given - Provider: Jerman Hill RN) 1006 ([facility] Hold - Provider: Automatic Transfer Provider - Reason: Patient not available)1101 ([facility] Unhold - Provider: Automatic Transfer Provider)2147 (Given - Provider: Heather Aviles, ERICK) Continuous Medication Order 01/16/2023 01/17/2023 01/18/2023 heparin [...] RN) 0740 (Rate/Dose Verify - Provider: Mynor Castro RN)0741 (Rate/Dose Verify - Provider: Mynor Castro RN - Comment: Verified by mechanics handyman Dawn)1025 (Stopped - Provider: Jose Guadalupe Layton, RN) sodium chloride 0.9% infusion (CANCELED) 50 mL/hr, intravenous, Continuous, Starting on 01/16/23 at 1845, Pre-Procedure (CV) 1809 (New Bag - Provider: Kim Osborn RN) 1015 (New Bag - Provider: Yoli Vang RN)1133 (Stopped - Provider: Mynor Castro, ERICK) PRN Medication Order 01/16/2023 01/17/2023 01/18/2023 acetaminophen (TYLENOL) tablet 650 mg 650 mg, oral, Every 6 hours PRN, headaches, fever, Starting on 01/16/23 at 1444 1006 ([facility] Hold - Provider: Automatic Transfer Provider - Reason: Patient not available)1101 ([facility] Unhold - Provider: Automatic Transfer Provider) albuterol HFA (PROVENTIL HFA,VENTOLIN HFA,PROAIR HFA) 90 mcg/actuation inhaler 2 puff 2 puff, inhalation, Every 6 hours PRN (manager respiratory), wheezing, Starting on 01/15/23 at 2038 1006 ([facility] Hold - Provider: Automatic Transfer Provider - Reason: Patient not available)1101 ([facility] Unhold - Provider: Automatic Transfer Provider) dextromethorphan-guaiFENesi n (ROBITUSSIN-DM) 2-20 mg/mL syrup 10 mL 10 mL, oral, 4 times daily PRN, cough, Starting on 01/15/23 at 2132 1006 ([facility] Hold - Provider: Automatic Transfer Provider - Reason: Patient not available)1101 ([facility] Unhold - Provider: Automatic Transfer Provider) fentaNYL (SUBLIMAZE) preservative free injection (CANCELED) Code/trauma/sedation medication, Starting on 01/17/23 at 1024, Intra-Procedure (CV) 1024 (Given - Provider: Yoli Vang, ERICK)1027 (Given - Provider: Yoli Vang, RN) fluticasone propionate (FLONASE) 50 mcg/actuation nasal spray 1 spray 1 spray, each nostril, 2 times daily PRN, rhinitis, Starting on 01/15/23 at 2134 1006 ([facility] Hold - Provider: Automatic Transfer Provider - Reason: Patient not available)1101 ([facility] Unhold - Provider: Automatic Transfer Provider) heparin 5,000 unit/mL injection 2,000 Units (CANCELED)(Linked Group 1) 2,000 Units, intravenous, Every 6 hours PRN, PTT 40-50.9 seconds, Starting on 01/15/23 at 2127, Subsequent bolus during heparin infusion., Indications: Acute Coronary Syndrome 0616 (See Alternative - Provider: Marilyn Blackmon RN)1918 (Given - Provider: Kim Osborn, RN) 1006 ([facility] Hold - Provider: Automatic Transfer Provider - Reason: Patient not available)1101 ([facility] Unhold - Provider: Automatic Transfer Provider) heparin 5,000 unit/mL injection 3,000 Units (CANCELED)(Linked Group 1) 3,000 Units, intravenous, Every 6 hours PRN, PTT less than 40 seconds, Starting on 01/15/23 at 2127, Subsequent bolus during heparin infusion., Indications: Acute Coronary Syndrome 0616 (Given - Provider: Marilyn Blackmon, RN)1918 (See Alternative - Provider: Kim Osborn, RN) 1006 ([facility] Hold - Provider: Automatic Transfer Provider - Reason: Patient not available)1101 ([facility] Unhold - Provider: Automatic Transfer Provider) heparin in 0.9% sodium chloride 1,000 units/500 mL (2 unit/mL) infusion (premix) (CANCELED) Code/trauma/sedation medication, Starting on 01/17/23 at 1015, Intra-Procedure (CV) 1015 (Given - Provider: Sabine Espitia MD) ioversoL (OPTIRAY 350) injection 0.01-500 mL (COMPLETED) 0.01-500 mL, intravenous, Once in imaging, contrast, Starting on 01/16/23 at 1552, For 1 dose 1554 (Contrast Given - Provider: Jason Riggs, RT) ioversoL (OPTIRAY 350) injection (CANCELED) Code/trauma/sedation medication, Starting on 01/17/23 at 1042, Intra-Procedure (CV) 1042 (Given - Provider: Sabine Espitia MD) ipratropium-albuteroL (DUO-NEB) 0.5-2.5 mg/3 mL nebulizer solution 3 mL 3 mL, nebulization, Every 4 hours PRN (manager respiratory), wheezing, shortness of breath, Starting on 01/15/23 at 2131, Indications: Chronic Obstructive Pulmonary Disease with Bronchospasms 0833 (Given - Provider: Troy Castillo CRTT)1821 (Given - Provider: Troy Catsillo CRTT) 1006 ([facility] Hold - Provider: Automatic Transfer Provider - Reason: Patient not available)1101 ([facility] Unhold - Provider: Automatic Transfer Provider) lidocaine (XYLOCAINE) 10 mg/mL (1 %) injection (CANCELED) Code/trauma/sedation medication, Starting on Tue01/17/23 at 1027, Intra-Procedure (CV), Indications: Administration of Local Anesthesia 1027 (Given - Provider: Sabine Espitia MD) midazolam (VERSED) 1 mg/mL preservative free injection (CANCELED) Administer over 2 Minutes, Code/trauma/sedation medication, Starting on 01/17/23 at 1025, Intra-Procedure (CV) 1025 (Given - Provider: Yoli Vang RN)1027 (Given [...] enoxaparin (LOVENOX) syringe 40 mg 1 2022 fentaNYL (SUBLIMAZE) preserv ative free injection 01/17/2023 fluticasone furoate-vilanter oL (BREO ELLIPTA) 200-25 mcg/dose inhaler 1 puff 1 01/17/2023 heparin in 0.9% sodium chlor krystle 1,000 units/500 mL (2 unit/mL) infusion (premix) 1 01/17/2023 ioversoL (OPTIRAY 350) injection 1 01/17/20 lidocaine (XYLOCAINE) 10 mg/ mL (1 %) injection 1 01/17/2023 midazolam (VERSED) 1 mg/mL p reservative free injection 01/17/2023 acetaminophen (TYLENOL) tablet 650 mg 1 ondansetron (ZOFRAN) injection 4 mg 1 01/16 ramelteon (ROZEREM) tablet 8 mg 1 albuterol HFA (PROVENTIL HFA ,VENTOLIN HFA,PROAIR HFA) 90 mcg/actuation inhaler 2 puff 1 01/15/2023 dextromethorphan-guaiFENesin (ROBITUSSIN-DM) 2-20 mg/mL syrup 10 mL 1 01/15/2023 fluticasone propionate (FLON ASE) 50 mcg/actuation nasal spray 1 spray 1 01/15/2023 Imaging Orders Without Results Count Last Order [...] Date First Orde red Date CASE REQUEST PROGRAM DIR 1 01/16/2023 documented in this encounter Care Teams Lead Esthetician Relationship Specialty Start Date End Date Torito Gonzalez MD [address] [place] [address] PCP - General 02/25/17 documented as of this encounter
--- OUTSIDE RECORDS SUMMARY | 2024-11-18 11:55 | XMS_ITS | Encounter Summary ---
Author Organization [facility] Medical [facility] Address [address] [place] [address] Care Team Providers Care Recoverer Name Role Phone Torito Gonzalez MD Primary Care Provider [phone]- [phone] Reason for Visit * Reason Onset Date Comments Prolia Benefit Verification 06/01/2023 Encounter Details Date Type Department Care Team (Late st Contact Info) Description 06/01/2023 Telephone [facility] [address] [place] [address] Leticia Montes De Oca RN Prolia Benefit Verification Social History Tobacco Use Types Packs/Day Years [...] in a usp (including now)? 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 * Telephone Encounter - Leticia Montes De Oca RN - 06/01/2023 3:48 PM CDT Prolia benefit verification form and Prolia script faxed to [facility] at [phone]. documented in this encounter Plan of Treatment Not on file documented as of this encounter Visit Diagnoses Not on filedocumented in this encounter Discontinued Medications Medication Sig Discontinue Reason Start Date End Da te denosumab (PROLIA) 60 mg/mL syringe Inject 1 mL (60 mg total) under the skin once for 1 dose Reorder 12/21/2022 06/01/2023 documented as of this encounter Care Teams Recoverer Relationship Specialty Start Date End Date Torito Gonzalez MD [address] [place] [address] PCP - General 02/25/17 documented as of this encounter
--- OUTSIDE RECORDS SUMMARY | 2024-11-18 11:56 | XMS_ITS | Encounter Summary ---
Author Organization [facility] Address [address] [place] [address] Care Team Providers Care English Language Arts Teacher Name Role Phone Torito Gonzalez MD Primary Care Provider [phone]- [phone] Reason for Referral * Diagnostic Imaging (Routine) - Closed Specialty Diagnoses / Procedures Referred By Contac t Referred To Contact Diagnoses Osteopenia, unspecified location Asymptomatic menopausal state Procedures Dexa Axial Skeleton Bone Density 1 Or 2 Site Alhaji Payan MD [address] [place] [address] [address] [place] [address] Phone: tel: fax: [facility] Referral ID Status Reason Start Date Expiration Date Visits Re quested Visits Authorized [id number] Closed 09/21/2022 10/21/2023 1 1 MENTATION ENGINEER Reason for Visit * Diagnostic Imaging (Routine) - Closed Specialty Diagnoses / Procedures Referred By Contac t Referred To Contact Diagnoses Osteopenia, unspecified location Asymptomatic menopausal state Procedures Dexa Axial Skeleton Bone Density 1 Or 2 Site Alhaji Payan MD [address] [place] [address] [address] [place] [address] Phone: tel: fax: [facility] Referral ID Status Reason Start Date Expiration Date Visits Re quested Visits Authorized [id number] Closed 09/21/2022 10/21/2023 1 1 Encounter Details Date Type Department Care Team (Latest Contact Info) Description 11/08/2022 12:12 PM DOCUMENTATION ENGINEER - 11/08/2022 11:59 PM DOCUMENTATION ENGINEER Hospital Encounter [facility] [address] [place] [address] Osteopenia, unspecified location; Asymptomatic menopausal state Discharge Disposition: Discharge to home or self [...] on file Legal Sex Female 1:11 AM DOCUMENTATION ENGINEER Gender Identity Not on file Sexual Orientation [...] mg total) by mouth every other day amLODIPine (NORVASC) 5 mg tablet Take 1 tablet (5 mg total) by mouth daily 90 tablet 3 2 06/27/20 23 cephalexin (KEFLEX) 500 mg capsule Take 500 mg by mouth every 6 (six) hours 2 01/18/20 23 methylPREDNISol one (MEDROL DOSEPACK) 4 mg Dosepack methylprednisolone 4 mg tablets in a dose pack 01/18 23 documented as of this encounter Discharge Disposition Disposition Code Departure Means Destination Discharge to home or self care documented in this encounter Miscellaneous Notes * Result Encounter Note - Alhaji Payan MD - 11/08/2022 11:59 PM DOCUMENTATION ENGINEER Please call patient with results. I spoke with patient. Her bone density at her spine is worse, nowosteoporosis. Her hip is also worse, low bone density. She was on Prolia for 1-2 years several years ago. Let us restart the Prolia at the infusion center. Her calcium was recently normal in October. MENTATION ENGINEER documented in this encounter Plan of Treatment Not on file documented as of this encounter Procedures Procedure Name Priority Date/Time Associated Diagnosis Comments DEXA AXIAL SKELETON BONE DENSITY 1 OR MORE SITES Schedule Routine, Read Routine (OP Routine) 11/08/2022 12:23 PM DOCUMENTATION ENGINEER Osteopenia, unspecified location Asymptomatic menopausal state documented in this encounter Results * Dexa Axial Skeleton Bone Density 1 Or 2 Site (11/08/2022 12:23 PM DOCUMENTATION ENGINEER) Anatomical Region Laterality Modality Body N/A Other 11/08/2022 7:03 PM DOCUMENTATION ENGINEER Narrative 11/08/2022 7:05 PM DOCUMENTATION ENGINEER EXAM DESCRIPTION: ?? DEXA AXIAL SKELETON BONE DENSITY 1 OR MORE SITES REASON FOR STUDY: ?67 y/o ?? year old ?? F ??with given history of screening. ?? Postmenopausal Audit Consultant/Model: ?? [employer] [place] (S/N [id number]) CLINICAL INFORMATION: Current height: ?? 65 ??inches [...] PM T: ??11/08/2022 7:05 PM Report ID: [id number] Reading Location: ??[id number] Procedure Note Josh Avalos MD - 11/08/2022 EXAM DESCRIPTION: DEXA AXIAL SKELETON BONE DENSITY 1 OR MORE SITES REASON FOR STUDY: 67 y/o year old F with given history ofscreening. Postmenopausal Audit Consultant/Model: [employer] (S/N [id number]) CLINICAL INFORMATION: Current height: 65 inches Maximum [...] Josh Avalos M.D. MF: ANTOINE Report ID: [id number] Reading Location: [place] [address] Alhaji Payan MD IMG DXA PROCEDURES Final R esult documented in this encounter Visit Diagnoses Diagnosis Osteopenia, unspecified location Asymptomatic menopausal state documented in this encounter Care Teams English Language Arts Teacher Relationship Specialty Start Date End Date Torito Gonzalez MD [address] [place] [address] PCP - General 02/25/17 documented as of this encounter
--- OUTSIDE RECORDS SUMMARY | 2024-11-18 11:56 | XMS_ITS | Encounter Summary ---
Author Organization [facility] Address [address] [place] [address] Care Team Providers Care Flatwork Tier Name Role Phone Torito Gonzalez MD Primary Care Provider [phone]- [phone] Reason for Referral * Diagnostic Imaging (Routine) - Closed Specialty Diagnoses / Procedures Referred By Turner ramirez Referred To Contact Diagnoses Abnormal mammogram of left breast Procedures Diagnostic Mammogram Left W Alhaji Oneal MD [address] [place] [address] DR [address] [place] [address] Phone: tel: fax: [address] [phone] Referral ID Status Reason Start Date Expiration Date Visits Re quested Visits Authorized [id number] Closed 11/10/2022 12/10/2023 1 1 WORKER Reason for Visit * Diagnostic Imaging (Routine) - Closed Specialty Diagnoses / Procedures Referred By Turner ramirez Referred To Contact Diagnoses Abnormal mammogram of left breast Procedures Diagnostic Mammogram Left W Alhaji Oneal MD [address] [place] [address] [address] [place] [address] Phone: tel: fax: [address] [phone] Referral ID Status Reason Start Date Expiration Date Visits Re quested Visits Authorized [id number] Closed 11/10/2022 12/10/2023 1 1 Encounter Details Date Type Department Care Team (Latest Contact Info) Description 12/08/2022 11:58 AM POND WORKER Hospital Encounter [facility] [address] [place] [address] Abnormal mammogram of left breast Discharge Disposition: Discharge to home or self [...] on file Legal Sex Female 1:11 AM POND WORKER Gender Identity Not on file Sexual Orientation [...] Procedure Name Priority Date/Time Associated Diagnosis Comments DIAGNOSTIC MAMMOGRAM LEFT W HECTOR Schedule Routine, Read Routine (OP Routine) 12/08/2022 12:40 PM POND WORKER Abnormal mammogram of left breast documented in this encounter Results * Diagnostic Mammogram Left W Hector (12/08/2022 12:40 PM POND WORKER) Anatomical Region Laterality Modality Breast Left Mammography 12/08/2022 12:4 9 PM POND WORKER Impressions 12/08/2022 12:49 PM POND WORKER 1. ??No suspicious finding is confirmed in the left breast. ??The asymmetry of concern does not persist on spot compression. ??Continued monthly breast self-examination is recommended, and return to annual screening mammography schedule. BI-RADS: 1 - Negative. The patient was notified of the results and recommendations on the time of the examination. Electronically signed by: ANDREA Perry 12/08/2022 12:49 PM POND WORKER EXAMINATION: DIAGNOSTIC MAMMOGRAM LEFT W HECTOR ORDERING HEALTHCARE PROVIDER: ALHAJI PAYAN HISTORY: 67-year-old woman comes in today for evaluation of a left breast asymmetry seen in the mammogram. COMPARISON: ??Screening mammogram dated 11/08/2022, 10/26/2021. TECHNIQUE: MLO, spot compression MLO, and ML views of the left breast were obtained with digital technique using digital breast tomosynthesis with C view. FINDINGS: The breast tissue is heterogeneously dense, which may obscure small masses. On spot compression views the asymmetry of concern seen in the central left breast on MLO view only does not persist. ??Digital breast tomosynthesis demonstrates only benign overlapping fibroglandular densities. us Alhaji Payan MD IMG MAMMO PROCEDURES Final Result documented in this encounter Visit Diagnoses Diagnosis Abnormal mammogram of left breast documented in this encounter Care Teams Flatwork Tier Relationship Specialty Start Date End Date Torito Gonzalez MD [address] [place] [address] PCP - General 02/25/17 documented as of this encounter
--- OUTSIDE RECORDS SUMMARY | 2024-11-18 11:56 | XMS_ITS | Encounter Summary ---
Author Organization [facility] Address [address] [place] [address] Care Team Providers Care Bottom Polisher Name Role Phone Torito Gonzalez MD Primary Care Provider +1- [phone] Reason for Referral * Diagnostic Imaging (Routine) - Closed Specialty Diagnoses / Procedures Referred By Turner ramirez Referred To Contact Diagnoses Encounter for screening mammogram for malignant neoplasm of breast Procedures SCREENING MAMMOGRAM BILATERAL W Alhaji Francis MD [address] [place] [address] [address] [place] [address] Phone: tel: fax: [address] [phone] Referral ID Status Reason Start Date Expiration Date Visits Re quested Visits Authorized [id number] Closed 09/21/2022 10/21/2023 1 1 [employer]IE[employer]RIAL [employer]ANT Reason for Visit * Diagnostic Imaging (Routine) - Closed Specialty Diagnoses / Procedures Referred By Turner ramirez Referred To Contact Diagnoses Encounter for screening mammogram for malignant neoplasm of breast Procedures SCREENING MAMMOGRAM BILATERAL W Alhaji Francis MD [address] [place] [address] DR [address] [place] [address] Phone: tel: fax: [address] [phone] Referral ID Status Reason Start Date Expiration Date Visits Re quested Visits Authorized [id number] Closed 09/21/2022 10/21/2023 1 1 Encounter Details Date Type Department Care Team (Latest Contact Info) Description 11/08/2022 12:12 PM [employer]OTE[employer]IE[employer] - 11/08/2022 11:59 PM [employer]OTECTION [employer]AL [employer] Hospital Encounter [facility] [address] [place] [address] Encounter for screening mammogram for malignant neoplasm of breast Discharge Disposition: Discharge to home or [...] on file Legal Sex Female 1:11 AM PROTECTION CHIEF [employer]RIAL [employer]ANT Gender Identity Not on file Sexual Orientation [...] Alhaji Payan MD - 11/08/2022 11:59 PM [employer]OTECTION [employer]IE[employer]RIAL [employer]ANT Please call patient and inform her of MMG results and arrange extra MMG views and ultrasound if needed. Thank you. [employer] documented in this encounter Plan of Treatment Not on file documented as of this encounter Procedures Procedure Name Priority Date/Time Associated Diagnosis Comments SCREENING MAMMOGRAM BILATERAL W EARLINE Schedule Routine, Read Routine (OP Routine) 11/08/2022 12:44 PM [employer]OTECTION [employer]IE[employer] Encounter for screening mammogram for malignant neoplasm of breast documented in this encounter Results * (ABNORMAL) SCREENING MAMMOGRAM BILATERAL W EARLINE (11/08/2022 12:44 PM PROTECTION [employer]IE[employer]ANT) Anatomical Region Laterality Modality Breast Bilateral Mammography 11/09/2022 7:10 AM PROTECTION CHIEF [employer]USTRIAL [employer]ANT Impressions 11/09/2022 7:10 AM PROTECTION CHIEF [employer]RIAL [employer]ANT 1. ??Left breast asymmetry on the MLO view. ??Recommend diagnostic left breast mammogram with possible ultrasound. 2. ??No evidence of malignancy in the right breast. ??Recommend screening right breast mammogram in one year. BI-RADS: 0 - Additional imaging evaluation is necessary. The patient will be contacted. Electronically signed by: Cheng Gibson M.D. Narrative 11/09/2022 7:10 AM [employer]OTE[employer]IE[employer]ANT EXAMINATION: SCREENING MAMMOGRAM BILATERAL W EARLINE ORDERING [...] other suspicious findings in the right breast. Alhaji Payan MD IMG MAMMO PROCEDURES Final Result documented in this encounter Visit Diagnoses Diagnosis Encounter for screening mammogram for malignant neoplasm of breast documented in this encounter Care Teams Bottom Polisher Relationship Specialty Start Date End Date Torito Gonzalez MD [address] [place] [address] PCP - General 02/25/17 documented as of this encounter
--- OUTSIDE RECORDS SUMMARY | 2024-11-18 11:56 | XMS_ITS | Encounter Summary ---
Author Organization [facility] Address [address] [address] Care Team Providers Care Cloth Finishing Range Back Tender Name Role Phone Torito Gonzalez MD Primary Care Provider [phone]- [phone] Reason for Referral * Diagnostic Imaging (Routine) - Closed Specialty Diagnoses / Procedures Referred By Contac t Referred To Contact Diagnoses Osteopenia, unspecified location Asymptomatic menopausal state Procedures Dexa Axial Skeleton Bone Density 1 Or 2 Site Alhaji Payan MD [address] [place] [address] [address] [facility] [place] [address] Phone: tel: fax: [facility] Referral ID Status Reason Start Date Expiration Date Visits Re quested Visits Authorized [id number] Closed 09/21/2022 10/21/2023 1 1 * Diagnostic Imaging (Routine) - Closed Specialty Diagnoses / Procedures Referred By Contac t Referred To Contact Diagnoses Encounter for screening mammogram for malignant neoplasm of breast Procedures SCREENING MAMMOGRAM BILATERAL W EARLINE Alhaji Payan MD [address] [place] [address] [address] [facility] [place] [address] Phone: tel: fax: [address] [phone] Referral ID Status Reason Start Date Expiration Date Visits Re quested Visits Authorized [id number] Closed 09/21/2022 10/21/2023 1 1 Reason for Visit * Reason Comments Gynecologic Exam wwe Encounter Details Date Type Department Care Team (Late st Contact Info) Description 09/21/2022 9:15 AM CDT Office Visit [facility] [address] [facility] [address] [place] [address] Alhaji Payan MD [address] [place] [address] [address] [place] [address] Well woman exam (Primary Dx); Encounter for screening mammogram for malignant neoplasm of breast; Osteopenia, unspecified location; Asymptomatic menopausal state Social History Tobacco Use Types Packs/Day Years [...] on file Legal Sex Female 1:11 AM SENIOR MARKETING ENGINEER Gender Identity Not on file Sexual Orientation Not on file documented as of this encounter Last Filed Vital Signs Vital Sign Reading Time Taken Comments Blood Pressure 120/72 09/21/2022 9:27 AM CDT Pulse - - Temperature - - Respiratory Rate - - Oxygen Saturation - - Inhaled Oxygen Concentration - - Weight 59.9 kg (132 lb) 09/21/2022 9:27 AM CDT Height 163.2 cm (5' 4.25 ) 09/21/2022 9:27 AM CD T Body Mass Index 22.48 09/21/2022 9:27 AM CDT documented in this encounter Progress Notes * Alhaji Payan MD - 09/21/2022 9:15 AM CDT Well Woman Exam Subjective: Pateint presents for: Gynecologic Exam (wwe) Gabbie Chris is a 67 y.o. year old female who presents for a well woman exam. She denies c/os. She had Covid 3 times this year. No pelvic pain or vaginal discharge or bleeding. No stressincontinence. Contraception:Menopause. No LMP recorded. Patient has had a hysterectomy. Past Medical History: Diagnosis Date Dysphagia GERD [...] ABDOMINAL HYSTERECTOMY W/ BILATERAL SALPINGOOPHORECTOMY 1995 [place]/BSO Current Outpatient Medications: albuterol HFA (PROVENTIL HFA,VENTOLIN [...] route every day, Disp: 0, Rfl: 0 calcium carbonate (CALCIUM 600 ORAL), Take by mouth, Disp: , Rfl: cephalexin (KEFLEX) 500 mg capsule, Take 500 mg by mouth every 6 (six) hours, Disp: , Rfl: famotidine (PEPCID) 20 mg tablet, Take 20 mg by mouth daily, Disp: , Rfl: methylPREDNISolone (MEDROL DOSEPACK) 4 mg Dosepack, methylprednisolone 4 mg tablets in a dose pack,Disp: , Rfl: Allergies Allergen Reactions Amoxicillin Stomach upset Family History Problem Relation Age of Onset [...] Frequency of Binge Drinking: Less than monthly Review of Systems Constitutional: Positive for unexpected weight change (loss). Negative for chills, fatigue and fever. HENT: Negative for hearing loss, sore throat, tinnitus and trouble swallowing. Eyes: Negative for pain and visual disturbance. Respiratory: Positive for shortness of breath and wheezing. Negative for cough. Cardiovascular: Negative for chest pain, palpitations and leg swelling. Gastrointestinal: Negative for abdominal pain, blood in stool, constipation, diarrhea, nausea and vomiting. Decreased appetite Endocrine: Negative for cold intolerance, heat intolerance and polydipsia. Genitourinary: Negative for dyspareunia, dysuria, frequency, hematuria, menstrual problem, pelvic pain, vaginal bleeding and vaginal discharge. Musculoskeletal: Negative for arthralgias, back pain, joint swelling and myalgias. Skin: Negative for color change and rash. Neurological: Negative for dizziness, numbness and headaches. Hematological: Does not bruise/bleed easily. Psychiatric/Behavioral: Negative for dysphoric mood, sleep disturbance and suicidal ideas. The patient is not nervous/anxious. Objective: BP 120/72 (BP Location: Right arm) Ht 163.2 cm (5' 4.25 ) Wt 132 lb (59.9 kg) BMI 22.48 kg/m?? Physical Exam Constitutional: Appearance: She is well-developed. HENT: Head: Normocephalic. Eyes: [...] rebound. Hernia: No hernia is present. Genitourinary: Labia: Right: No lesion. Left: No lesion. Vagina: Normal. No vaginal discharge. Adnexa: Right: No mass or tenderness. Left: No mass or tenderness. Comments: Uterus surgically absent. Rectal exam deferred with normal colonoscopy Mar, 2022. Musculoskeletal: General: No tenderness. Cervical back: Neck supple. Lymphadenopathy: Cervical: No cervical adenopathy. Upper Body: Right upper body: No supraclavicular adenopathy. Left upper body: No supraclavicular adenopathy. Skin: General: Skin is warm and dry. Neurological: Mental Status: She is alert and oriented to person, place, and time. Assessment and Plan: Normal exam. Diagnoses and all orders for this visit: Well woman exam (Primary) Encounter for screening mammogram for malignant neoplasm of breast Comments: Script provided. Orders: - SCREENING MAMMOGRAM BILATERAL W EARLINE; Future Osteopenia, unspecified location Comments: Re-check Dexa. Orders: - Dexa Axial Skeleton Bone Density 1 Or 2 Site; Future Asymptomatic menopausal state - Dexa Axial Skeleton Bone Density 1 Or 2 Site; Future Recommended screenings and preventive care discussed: Breast cancer: Breast Self Exam encouraged. Pap deferred. Calcium and vitamin D BID recommended and cholesterol followed by PCP. Low fat, low carbohydrate diet and exercise encouraged. Return in about 2 years (around 09/21/2024) for annual exam. Alhaji Payan MD 09/21/2022 documented in this encounter Plan of Treatment Not on file documented as of this encounter Results * (ABNORMAL) SCREENING MAMMOGRAM BILATERAL W EARLINE (11/08/2022 12:44 PM SENIOR MARKETING ENGINEER) Anatomical Region Laterality Modality Breast Bilateral Mammography 11/09/2022 7:10 AM SENIOR MARKETING ENGINEER Impressions 11/09/2022 7:10 AM SENIOR MARKETING ENGINEER 1. ??Left breast asymmetry on the MLO view. ??Recommend diagnostic left breast mammogram with possible ultrasound. 2. ??No evidence of malignancy in the right breast. ??Recommend screening right breast mammogram in one year. BI-RADS: 0 - Additional imaging evaluation is necessary. The patient will be contacted. Electronically signed by: Cheng Gibson M.D. Narrative 11/09/2022 7:10 AM SENIOR MARKETING ENGINEER EXAMINATION: SCREENING MAMMOGRAM BILATERAL W EARLINE ORDERING [...] 1 Or 2 Site (11/08/2022 12:23 PM SENIOR MARKETING ENGINEER) Anatomical Region Laterality Modality Body N/A Other 11/08/2022 7:03 PM SENIOR MARKETING ENGINEER Narrative 11/08/2022 7:05 PM SENIOR MARKETING ENGINEER EXAM DESCRIPTION: ?? DEXA AXIAL SKELETON BONE DENSITY 1 OR MORE SITES REASON FOR STUDY: ?67 y/o ?? year old ?? F ??with given history of screening. ?? Postmenopausal Counseling Services Director/Model: ?? [employer] ([id number]/N [id number]) CLINICAL INFORMATION: Current height: ?? 65 ??inches [...] PM T: ??11/08/2022 7:05 PM Report ID: [id number] Reading Location: ??[id number] Procedure Note Josh Avalos MD - 11/08/2022 EXAM DESCRIPTION: DEXA AXIAL SKELETON BONE DENSITY 1 OR MORE SITES REASON FOR STUDY: 67 y/o year old F with given history ofscreening. Postmenopausal Counseling Services Director/Model: [employer] ([id number]/N [id number]) CLINICAL INFORMATION: Current height: 65 inches Maximum [...] Josh Avalos M.D. MF: ANTOINE Report ID: [id number] Reading Location: [place] [address] Alhaji Payan MD IMG DXA PROCEDURES Final R esult documented in this encounter Visit Diagnoses Diagnosis Well woman exam- Primary Routine general medical examination at a health care facility Encounter for screening mammogram for malignant neoplasm of breast Osteopenia, unspecified location Asymptomatic menopausal state Osteopenia, unspecified location Asymptomatic menopausal state Encounter for screening mammogram for malignant neoplasm of breast documented in this encounter Discontinued Medications Medication Sig Discontinue Reason Start Date End Da te azithromycin (ZITHROMAX) 500 mg tablet TAKE 1 TABLET BY MOUTH ONCE DAILY FOR 5 DAYS Duplicate order 09/16/2022 09/21/2022 documented as of this encounter Historical Medications * This list may reflect changes made after this encounter. albuterol HFA (PROVENTIL HFA,VENTOLIN HFA,PROAIR HFA) 90 mcg/actuation inhaler albuterol sulfate HFA 90 mcg/actuation aerosol inhaler INHALE 1 TO 2 PUFFS BY MOUTH EVERY 6 HOURS NEEDED FOR WHEEZING azithromycin (ZITHROMAX) 500 mg tablet TAKE 1 TABLET BY MOUTH ONCE DAILY FOR 5 DAYS 2 09/21/20 22 methylPREDNISol one (MEDROL DOSEPACK) 4 mg Dosepack methylprednisolone 4 mg tablets in a dose pack 01/18 23 cephalexin (KEFLEX) 500 mg capsule Take 500 mg by mouth every 6 (six) hours 2 01/18/20 23 added in this encounter Care Teams Cloth Finishing Range Back Tender Relationship Specialty Start Date End Date Torito Gonzalez MD [address] [place] [address] PCP - General 02/25/17 documented as of this encounter
--- OUTSIDE RECORDS SUMMARY | 2024-11-18 11:56 | XMS_ITS | Encounter Summary ---
Author Organization [facility] Address [address] [facility] [address] [place] [address] Care Team Providers Care Coater Smoking Pipe Name Role Phone Torito Gonzalez MD Primary Care Provider +1- [phone] Reason for Referral * Diagnostic Imaging (Routine) - Closed Specialty Diagnoses / Procedures Referred By Turner ramirez Referred To Contact Diagnoses Abnormal mammogram of left breast Procedures Diagnostic Mammogram Left W Alhaji Oneal MD [address] [place] [address], [place] [address] Phone: tel: fax: [address] [phone] Referral ID Status Reason Start Date Expiration Date Visits Re quested Visits Authorized [id number] Closed 11/10/2022 12/10/2023 1 1 ESSOR OF EARLY CHILDHOOD EDUCATION Reason for Visit * Reason Onset Date Comments Abnormal Mammogram, Left Breast, Bi Rads 0 11/10 Encounter Details Date Type Department Care Team (Late st Contact Info) Description 11/10/2022 Telephone [facility] [address] [address] Leticia Montes De Oca RN Abnormal Mammogram, Left Breast, Bi Rads 0 Social History Tobacco Use Types Packs/Day Years [...] on file Legal Sex Female 1:11 AM PROFESSOR OF 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 Bi rads 1. ESSOR OF EARLY CHILDHOOD EDUCATION * Telephone Encounter - Leticia Montes De Oca RN - 11/15/2022 10:25 AM PROFESSOR OF EARLY CHILDHOOD EDUCATION Pt scheduled for 12-08-22. ESSOR OF EARLY CHILDHOOD EDUCATION * Telephone Encounter - Leticia Montes De Oca RN - 11/12/2022 9:32 AM PROFESSOR OF EARLY CHILDHOOD EDUCATION Pt was scheduled per scheduling for 01-06-23. Enc to call MMG Dept for sooner appt. Will await appt date. ESSOR OF EARLY CHILDHOOD EDUCATION * Telephone Encounter - Leticia Montes De Oca RN - 11/10/2022 3:31 PM PROFESSOR OF EARLY CHILDHOOD EDUCATION Pt aware. Will await appt date. ESSOR OF EARLY CHILDHOOD EDUCATION * Telephone Encounter - Leticia Montes De Oca RN - 11/10/2022 11:03 AM PROFESSOR OF EARLY CHILDHOOD EDUCATION Order placed for Left Diagnostic MMG and US. LM with pts for pt to call back. ESSOR OF EARLY CHILDHOOD EDUCATION * Telephone Encounter - Leticia Montes De Oca RN - 11/10/2022 11:01 AM PROFESSOR OF EARLY CHILDHOOD EDUCATION ----- Message from Alhaji Payan MD sent at 11/10/2022 10:47 AM PROFESSOR OF EARLY CHILDHOOD EDUCATION ----- Please call patient and inform her of MMG results and arrange extra MMG views and ultrasound if needed. Thank you. ESSOR OF EARLY CHILDHOOD EDUCATION documented in this encounter Plan of Treatment Not on file documented as of this encounter Results * Diagnostic Mammogram Left W Hector (12/08/2022 12:40 PM PROFESSOR OF EARLY CHILDHOOD EDUCATION) Anatomical Region Laterality Modality Breast Left Mammography 12/08/2022 12:4 9 PM PROFESSOR OF EARLY CHILDHOOD EDUCATION Impressions 12/08/2022 12:49 PM PROFESSOR OF EARLY CHILDHOOD EDUCATION 1. ??No suspicious finding is confirmed in the left breast. ??The asymmetry of concern does not persist on spot compression. ??Continued monthly breast self-examination is recommended, and return to annual screening mammography schedule. BI-RADS: 1 - Negative. The patient was notified of the results and recommendations on the time of the examination. Electronically signed by: ANDREA Perry 12/08/2022 12:49 PM PROFESSOR OF EARLY CHILDHOOD EDUCATION EXAMINATION: DIAGNOSTIC MAMMOGRAM LEFT W HECTOR ORDERING [...] tomosynthesis demonstrates only benign overlapping fibroglandular densities. Alhaji Payan MD IMG MAMMO PROCEDURES Final Result documented in this encounter Visit Diagnoses Diagnosis Abnormal mammogram of left breast- Primary Abnormal mammogram of left breast documented in this encounter Care Teams Coater Smoking Pipe Relationship Specialty Start Date End Date Torito Gonzalez MD [address] [place] [address] PCP - General 02/25/17 documented as of this encounter
--- OUTSIDE RECORDS SUMMARY | 2024-11-18 11:57 | XMS_ITS | Encounter Summary ---
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 Faxed and scanned into media with fax confirmation. documented in this encounter Plan of Treatment Not on file documented as of this encounter Visit Diagnoses Not on filedocumented in this encounter Care Teams Assembly Inspector Helper Relationship Specialty Start Date End Date Torito Gonzalez MD [address] [place] [address] PCP - General 02/25/17 documented as of this encounter
--- OUTSIDE RECORDS SUMMARY | 2024-11-18 11:57 | XMS_ITS | Encounter Summary ---
Author Organization [facility] Healthcare Address [address] [place] [address] Care Team Providers Care Stretcher Helper Name Role Phone Torito Gonzalez MD Primary Care Provider +1- [phone] Encounter Details Date Type Department Care Team (Late st Contact Info) Description 04/22/2022 9:00 AM CDT - 04/22/2022 9:30 AM CDT Surgery [facility] [address] [place] [address] Jaciel Mott MD [address] [place] [address] [address] [place] [address] COLONOSCOPY Surgery Details Date/Time Status Location OR Service Patient Class Case Class Case Type Trauma Case? 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 Gender Identity Not on file Sexual Orientation Not on file documented as of this encounter Last Filed Vital Signs Vital Sign Reading Time Taken Comments Blood Pressure 112/78 04/22/2022 9:21 AM CDT Pulse 79 04/22/2022 9:21 AM CDT Temperature 37.3 ??C (99.1 ??F) 04/22/2022 7:42 AM CD T Respiratory Rate 20 04/22/2022 9:21 AM CDT Oxygen Saturation 97% 04/22/2022 9:21 AM CDT Inhaled Oxygen Concentration - - Weight 64 kg (141 lb 1.5 oz) 04/22/2022 7:42 AM CDT Height 165.1 cm (5' 5 ) 04/22/2022 7:42 AM CDT Body Mass Index 23.48 04/22/2022 7:42 AM CDT documented in this encounter Medications at Time of Discharge aspirin 81 mg tablet take 1 tablet by oral route every day 0 0 05/10/2016 calcium carbonate (CALCIUM 600 ORAL) Take 1 tablet by mouth daily famotidine (PEPCID) 20 mg tablet Take 1 tablet (20 mg total) by mouth every other day amLODIPine (NORVASC) 5 mg tablet Take 1 tablet (5 mg total) by mouth daily 90 tablet 3 04/16/2022 06/27/2023 documented as of this encounter Discharge Disposition Disposition Code Departure Means Destination Discharge to home or self care documented in this encounter H&P Notes * Jaciel Mott MD - 04/22/2022 9:00 AM CDT Plan of Care : Based on the above findings, I consider Gabbie Chris to be an acceptable risk for : Procedure(s): COLONOSCOPY Source Note - Carmen Haywood MD - 04/22/2022 8:05 AM CDT Images from the original note were not included. Anesthesia Evaluation Gabbie Chris is a 66 y.o. female Procedure(s): COLONOSCOPY Pre-Op Diagnosis Codes: * Hx of colonic polyps [Z86.010] HISTORY Past Medical History Cardiovascular + Hypertension + Hyperlipidemia Gastrointestinal + GERD Patient Active Problem List Diagnosis ??? Hypercholesterolemia ??? Keratosis, senilis ??? Benign neoplasm of soft tissues ??? Dysphagia ??? Coronary artery disease involving [place] coronary artery of [place] heart without angina pectoris ??? Prinzmetal's angina (CMS/HCC) (HCC) ??? Hx of colonic polyps Past Medical History: Diagnosis Date ??? Dysphagia ??? GERD (gastroesophageal reflux disease) ??? HX OTHER MEDICAL 1976 ; Outcome: 7 lb(s) 2 oz Male ??? HX OTHER MEDICAL 1970 ; Outcome: 7 lb(s) 4 oz Female ??? Hypertension Past Surgical History: Procedure Laterality Date ??? APPENDECTOMY 1995 Appendectomy ??? CARDIAC CATHETERIZATION 2009 HEART CATH ??? CATARACT EXTRACTION W/ INTRAOCULAR LENS IMPLANT 2017 ??? COLONOSCOPY 12/06/2016 ??? OTHER SURGICAL HISTORY 1976 : ??? OTHER SURGICAL HISTORY 1970 : ??? POLYPECTOMY ??? TOTAL ABDOMINAL HYSTERECTOMY W/ BILATERAL SALPINGOOPHORECTOMY 1995 [facility]/BSO OB History 2 Para 2 Term 2 0 AB 0 Living 2 SAB 0 IAB 0 Ectopic 0 Multiple 0 Live Births 2 Allergies Allergen Reactions ??? Amoxicillin Stomach upset Taking? Last Dose Start Date End Date Provider amLODIPine (NORVASC) 5 mg tablet 04/21/2022 04/16/22 04/16/23 Jacob Espitia MD Take 1 tablet (5 mg total) by mouth daily aspirin 81 mg tablet 04/20/2022 05/10/16 -- Alhaji Payan MD take 1 tablet by oral route every day calcium carbonate (CALCIUM 600 ORAL) 04/20/2022 -- -- ProviderChristie MD famotidine (PEPCID) 20 mg tablet Past Week -- -- ProviderChristie MD Current Facility-Administered Medications: ??? [MAR Hold] ondansetron (ZOFRAN) injection 4 mg, 4 mg, intravenous, Q30 Min PRN ??? [MAR Hold] sodium chloride 0.9% flush 0.5-20 mL, 0.5-20 mL, intra-catheter, Q8H SAIMA ??? [MAR Hold] sodium chloride 0.9% flush 0.5-20 mL, 0.5-20 mL, intra-catheter, PRN ??? sodium chloride 0.9% infusion, 30 mL/hr, intravenous, Continuous, Last Rate: 30 mL/hr at 04/22/22 0803, 30 mL/hr at 04/22/22 0803 ??? sodium chloride 0.9% infusion, 125 mL/hr, intravenous, Continuous Social History Tobacco Use Smoking Status Former Smoker Smokeless Tobacco Never Used Tobacco Comment Smoking History Packs/day: 0.25 Packs Substance and Sexual Activity Alcohol Use No Substance and Sexual Activity Drug Use No Family History Problem Relation Age of Onset ??? Coronary artery disease Mother Coronary artery disease; ??? Hypertension Mother Hypertension; ??? Congenital heart disease Brother Congenital heart disease; ??? Diabetes Brother Diabetes mellitus; ??? Hypertension Brother Hypertension; Vitals: 04/22/22 0742 BP: 119/76 Pulse: 60 Resp: 16 Temp: 37.3 ??C (99.1 ??F) SpO2: 96% PT: No results found for requested labs within last 720 hours. INR: No results found for requested labs within last 720 hours. APTT: No results found for requested labs within last 720 hours. Hgb A1C: No results found for requested labs within last 720 hours. CBC RBC: No results found for requested labs within last 720 hours. RDW: No results found for requested labs within last 720 hours. MCHC: No results found for requested labs within last 720 hours. MCH: No results found for requested labs within last 720 hours. MCV: No results found for requested labs within last 720 hours. Hct: No results found for requested labs within last 720 hours. Hgb: No results found for requested labs within last 720 hours. WBC: No results found for requested labs within last 720 hours. MPV: No results found for requested labs within last 720 hours. Platelets: No results found for requested labs within last 720 hours. RDW CV: No results found for requested labs within last 720 hours. RDW Sd: No results found for requested labs within last 720 hours. BMP Glucose: No results found for requested labs within last 720 hours. Calcium: No results found for requested labs within last 720 hours. Sodium: No results found for requested labs within last 720 hours. Potassium: No results found for requested labs within last 720 hours. CO2: No results found for requested labs within last 720 hours. Chloride: No results found for requested labs within last 720 hours. BUN: No results found for requested labs within last 720 hours. Creatinine: No results found for requested labs within last 720 hours. DOS Physical Exam Medical history, medications, and allergies reviewed. Attestation: This PAT evaluation 04/22/2022. Airway Exam: Mallampati: II TM distance: >4 Upper lip bite test class: 1 Cardiovascular Exam: Rate: regular Pulmonary Exam: LCTA EENT Exam: trachea midline Dental Exam: Appears intact Skin Exam: Skin is warm. Abdominal Exam: Abdomen is soft. Bowel sounds are present. Anesthesia Plan ASA 2 Planned anesthesia: MAC Induction: Induction: intravenous. Postoperative Plan: No plan for postoperative opioid use. No postoperative mechanical ventilation intended. Patient's planned disposition post procedure is Outpatient. No trial extubation planned. Informed Consent: Discussed plan with attending. Anesthesia plan and risks discussed with patient. Consent and Attending signature: I and/or my designee have discussed the anesthesia plan, benefits, possible alternatives, parental presence at time of induction (if indicated), and clinically relevant risks that may include dental injury, unintentional awareness, and/or other complications. The patient and/or parent/legal guardian understand, and agree to proceed. All questions answered. documented in this encounter Procedure Notes * Jaciel Mott MD - 04/22/2022 7:32 AM CDTAssociated Order(s): COLONOSCOPY [facility] Patient Name: Gabbie Chris Procedure Date: 04/22/2022 7:32 AM Date of : 1955 Admit Type: Outpatient Age: 66 Gender: Female Attending MD: Jaciel Mott M.D. Room: [facility] ENDOSCOPY ROOM 2 Note Status: Finalized Patient Profile: Refer to note in patient chart for documentation of history and physical. Procedure: Colonoscopy Indications: High risk colon cancer surveillance: Personal history of colonic polyps, Last colonoscopy: November 2016 [...] Assessment: - This assessment was completed [Time of Assessment] prior to the administration of sedation. The benefits, risks and alternatives of the procedure and sedation were discussed and informed consent was obtained. All questions were answered. Please refer to the signed informed consent document in the medical record. The bowel preparation used was Miralax via split dose instruction. The bowel preparation used was bisacodyl tablets via single dose instruction. The scope was passed under direct vision. The Colonoscope [id number] was introduced through the anus and advanced to the the cecum, identified by appendiceal orifice and ileocecal valve. The colonoscopy was performed with moderate difficulty due to multiple diverticula in the colon and inadequate bowel prep. The patient tolerated the procedure well. The quality of the bowel preparation was poor. The ileocecal valve, appendiceal orifice, and rectum were photographed. Findings: Hemorrhoids were found on perianal exam. Multiple small and large-mouthed diverticula were found in the sigmoid colon, descending colon, transverse colon, hepatic flexure and ascending colon. The exam was otherwise without abnormality. Electronically signed by Jaciel Mott M.D. Jaciel Mott M.D. 04/22/2022 9:21:50 AM Number of Addenda: 0 Note Initiated On: 04/22/2022 7:32 AM Procedure Code(s): --- Professional --- G0105, Colorectal cancer screening; colonoscopy on individual at high risk Diagnosis Code(s): --- Professional --- K57.30, Diverticulosis of large intestine without perforation or abscess without bleeding K64.9, Unspecified hemorrhoids Z86.010, Personal history of colonic polyps CPT copyright 2020 [employer]. All rights reserved. The codes documented in this report are preliminary and upon fast food team member review may be revised to meet current compliance requirements. Recognized by the [employer] for promoting quality in endoscopy documented in this encounter Miscellaneous Notes * Perioperative Nursing Note - Alice Rosario, RN - 04/22/2022 10:[address] Mott was here and talked to the pt and her about the procedure and to repeat her colonoscopy in 5 years. Gave pt a handout on diverticulosis. documented in this encounter Plan of Treatment Not on file documented as of this encounter Procedures Procedure Name Priority Date/Time Associated Diagnosis Comments COLONOSCOPY 04/22/2022 8:40 AM CDT Hx of colonic polyps COLONOSCOPY 04/22/2022 7:32 AM CDT documented in this encounter Results * COLONOSCOPY (04/22/2022 7:32 AM CDT) Anatomical Region Laterality Modality Other Narrative Procedure Note Jaciel Mott MD - 04/22/2022 7:32 AM CDT [facility] Patient Name: Gabbie Chris Procedure Date: 04/22/2022 7:32 AM Date of : 1955 Admit Type: Outpatient Age: 66 Gender: Female Attending MD: Jaciel Mott M.D. Room: [facility] ENDOSCOPY ROOM 2 Note Status: Finalized Patient [...] scope was passed under direct vision. TheColonoscope [id number] was introduced through the anus and advanced [...] history of colonic polyps CPT copyright 2020 [employer]. All rights reserved. The codes documented in this report are preliminary and upon fast food team member reviewmay be revised to meet current compliance requirements. Recognized by the [employer] for promoting quality in endoscopy Jaciel Mott MD ENDOSCOPY PROCEDURES Final Re sult documented in this encounter Visit Diagnoses Diagnosis Hx of colonic polyps- Primary Personal history of colonic polyps Hx of colonic polyps Personal history of colonic polyps documented in this encounter Admitting Diagnoses Diagnosis Hx of colonic polyps Personal history of colonic polyps documented in this encounter Administered Medications Inactive Administered Medications - up to 3 most recent administrations Medication Order MAR Action Action Date Dose Rate Site ondansetron (ZOFRAN) injection 4 mg 4 mg, intravenous, Administer over 2 Minutes, Every 30 min PRN, nausea, vomiting, Starting on Mildred 04/22/22 at 0736, For 2 doses, Recovery (GI), Indications: Nausea and VomitingIndications:Nausea and Vomiting sodium chloride 0.9% flush 0.5-20 mL 0.5-20 mL, intra-catheter, Every 8 hours scheduled, First dose on Mildred 04/22/22 at 0815, Pre-Procedure (GI), Flush volume based on line type and size. sodium chloride 0.9% flush 0.5-20 mL 0.5-20 mL, intra-catheter, As needed, line care, Starting on Mildred 04/22/22 at 0736, Pre-Procedure (GI), Flush volume based on line type and size. Flush before and after each use. sodium chloride 0.9% infusion 30 mL/hr, intravenous, Continuous, Starting on Mildred 04/22/22 at 0815, Pre-Procedure (GI) New Bag 04/22/2022 8:03 AM CDT 30 mL/hr 30 mL/hr sodium chloride 0.9% infusion 125 mL/hr, intravenous, Continuous, Starting on Mildred 04/22/22 at 0815, Recovery (GI) documented in this encounter Active and Recently Administered Medications Times are shown in CDT. Scheduled Medication Order 04/20/2022 04/21/2022 04/22/2022 sodium chloride 0.9% flush 0.5-20 mL 0.5-20 mL, intra-catheter, Every 8 hours scheduled, First dose on Mildred 04/22/22 at 0815, Pre-Procedure (GI), Flush volume based on line type and size. 0737 (MAR Hold - Pro vider: Automatic Transfer Provider - Reason: Patient not available)0815 (Dose Auto Held - Provider: Automatic Transfer Provider)1411 (MAR Unhold - Provider: Automatic Discharge Provider) Continuous Medication Order 04/20/2022 04/21/2022 04/22/2022 sodium chloride 0.9% infusion 30 mL/hr, intravenous, Continuous, Starting on Mildred 04/22/22 at 0815, Pre-Procedure (GI) 0803 (New Bag - Prov ider: Alice Rosario RN)1411 (Due: Stopped) sodium chloride 0.9% infusion 125 mL/hr, intravenous, Continuous, Starting on Mildred 04/22/22 at 0815, Recovery (GI) 0815 (Due) PRN Medication Order 04/20/2022 04/21/2022 04/22/2022 ondansetron (ZOFRAN) injection 4 mg 4 mg, intravenous, Administer over 2 Minutes, Every 30 min PRN, nausea, vomiting, Starting on Mildred 04/22/22 at 0736, For 2 doses, Recovery (GI), Indications: Nausea and Vomiting 0737 (MAR Hold - Pro vider: Automatic Transfer Provider - Reason: Patient not available)1411 ([facility] Unhold - Provider: Automatic Discharge Provider) sodium chloride 0.9% flush 0.5-20 mL 0.5-20 mL, intra-catheter, As needed, line care, Starting on Mildred 04/22/22 at 0736, Pre-Procedure (GI), Flush volume based on line type and size. Flush before and after each use. 0737 ([facility] Hold - Pro vider: Automatic Transfer Provider - Reason: Patient not available)1411 (MAR Unhold - Provider: Automatic Discharge Provider) documented in this encounter Orders Medications Ordered That Krunal ht Not Have Been Administered Count Last Ordered Date First Ordered Date ondansetron (ZOFRAN) injection 4 mg 1 04/22 sodium chloride 0.9% flush 0.5-20 mL 2 03/29 sodium chloride 0.9% infusion 1 04/22/2022 documented in this encounter Care Teams Stretcher Helper Relationship Specialty Start Date End Date Torito Gonzalez MD [address] [place] [address] PCP - General 02/25/17 documented as of this encounter
--- OUTSIDE RECORDS SUMMARY | 2024-11-18 11:57 | XMS_ITS | Encounter Summary ---
Author Organization [facility] Address [address] [place] [address] Care Team Providers Care Fitness Club Manager Name Role Phone Torito Gonzalez MD Primary Care Provider +1- [phone] Encounter Details Date Type Department Care Team (Late st Contact Info) Description 04/22/2022 8:47 AM CDT Anesthesia Event [address] [address] Carmen Haywood MD [address] [facility] [address] [place] [address] Anesthesia Record Procedure Summary Procedure Name Responsible Anesthesiologist Anesthesia Start Time Anesthesia Stop Time COLONOSCOPY (Colon) Cramen Haywood MD 04/22/22 0847 04/22/22 0923 Events Date Time Event Comment 04/22/2022 0845 In Room 0847 An Start 0848 0850 An Start Data 0851 Start Supplemental O2 0851 Patient Positioned Laterally 0851 An Induction The patient was reevaluated immediately before moderate or deep sedation use and before anesthesia induction. 0851 Proc Start 0852 Anesthesia Ready 0916 Proc Fin 0918 an stop data 0919 Out of Room 0923 An Stop Meds Name Total lidocaine (cardiac) syringe 2 % 10 mg propofol 200 mg phenylephrine 200 mcg * Agents No agents on file. * Blood No blood administrations on file. 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 Gender Identity Not on file Sexual Orientation Not on file documented as of this encounter OR Notes * Anesthesia Postprocedure Evaluation - Carmen Haywood MD - 04/22/2022 9:23 AM CDT Patient: Gabbie Chris Procedure Summary Date: 04/22/22 Room / Location: [facility] ENDOSCOPY ROOM 2 / [facility] ENDOSCOPY Anesthesia Start: 846 Anesthesia Stop: 922 Procedure: COLONOSCOPY (N/A Colon) Diagnosis: Hx of colonic polyps (Hx of colonic polyps [Z86.010]) Providers: Jaciel Mott MD Responsible Provider: Carmen Haywood MD Anesthesia Type: MAC ASA Status: 2 Anesthesia Type: MAC Last vitals BP 119/76 Pulse 60 Temp 37.3 ??C (99.1 ??F) (Temporal) Resp 16 SpO2 96% Anesthesia Post Evaluation Patient location during evaluation: PACU Patient participation: complete - patient participated Level of consciousness: fully awake Pain score: 0 Pain management: adequate Airway patency: adequate Evidence of recall: no Cardiovascular status: acceptable Respiratory status: acceptable Hydration status: acceptable Pt is: normothermic Nausea/Vomiting status: none No complications documented. * Anesthesia Preprocedure Evaluation - Carmen Haywood MD - 04/22/2022 8:05 [...] ??? Dysphagia ??? Coronary artery disease involving [place] coronary artery of [place] heart without angina pectoris ??? Prinzmetal's angina [...] MAR Action Action Date Dose Rate Site lidocaine (XYLOCAINE) 20 mg/mL (2 %) preservative free injection intravenous, As needed, Starting on Mildred 04/22/22 at 0851, Anesthesia Intra-op Given 04/22/2022 8:51 AM CDT 10 mg phenylephrine (SAM-SYNEPHRINE) injection intravenous, As needed, Starting on Mildred 04/22/22 at 0905, Anesthesia Intra-op Given 04/22/2022 9:06 AM CDT 100 mcg Given 04/22/2022 9:05 AM CDT 100 mcg propofoL (DIPRIVAN) 10 mg/mL IV intravenous, As needed, Starting on Mildred 04/22/22 at 0851, Anesthesia Intra-op Given 04/22/2022 8:58 AM CDT 100 mg Given 04/22/2022 8:51 AM CDT 100 mg documented in this encounter Care Teams Fitness Club Manager Relationship Specialty Start Date End Date Torito Gonzalez MD [address] [place] [address] PCP - General 02/25/17 documented as of this encounter
--- OUTSIDE RECORDS SUMMARY | 2024-11-18 11:57 | XMS_ITS | Encounter Summary ---
Author Organization [facility] Address [address] [place] [address] Care Team Providers Care Senior Patient Account Representative Name Role Phone Torito Gonzalez MD Primary Care Provider +1- [phone] Reason for Visit * Reason Onset Date Comments schedule colonoscopy 04/15/2022 Encounter Details Date Type Department Care Team (Late st Contact Info) Description 04/15/2022 Telephone [facility] Gastroenterology at [address] [place] [id number] Fiordaliza Mcgregor MA schedule colonoscopy Social History Tobacco Use Types Packs/Day Years Used Date Smoking Tobacco: Former Smokeless Tobacco: Never Comments:Smoking History Pac ks/day: 0.25 Packs Alcohol Use Standard Drinks/Week Comments No 0 (1 standard drink = 0.6 oz pur e alcohol) PHQ-2 Answer Date Recorded PHQ-2 Total Score (If total score is 3 or more points, staff should administer the PHQ-9) 0 09/01/2021 Comments No Sex and Gender Information Value Date Recorded Sex Assigned at Not on file 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 Gender Identity Not on file Sexual Orientation Not on file documented as of this encounter Miscellaneous Notes * Telephone Encounter - Fiordaliza Mcgregor MA - 04/15/2022 3:43 PM CDT Pt is scheduled for a colonoscopy with dr kumari on 04-22-22 at 2 pm, verbal instructions given and sent in [employer] Last colonoscopy: 2016 Family history colon cancer (if yes, relationship to pt): no Personal history colon polyps or colon cancer: polyps Pt on blood thinner (if yes, list medication and reason for taking): no Has pt had recent stent placement within the last year: no Pt have pacemaker/defibrillator: no Pt diabetic (if yes, insulin or oral meds): no Pt have kidney disease or on dialysis: no Pt on iron: no Hx of Constipation: no Mechanical Heart valve: no Instructed pt to call with any medical changes and/or medications/insurance. documented in this encounter Plan of Treatment Not on file documented as of this encounter Visit Diagnoses Diagnosis Hx of colonic polyps- Primary Personal history of colonic polyps documented in this encounter Orders Case Request Count Last Ordered Date First Orde red Date CASE REQUEST GI 1 04/15/2022 documented in this encounter Care Teams Senior Patient Account Representative Relationship Specialty Start Date End Date Torito Gonzalez MD [address] [place] [address] PCP - General 02/25/17 documented as of this encounter
--- OUTSIDE RECORDS SUMMARY | 2024-11-18 11:57 | XMS_ITS | Encounter Summary ---
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 Gender Identity Not on file Sexual Orientation Not on file documented as of this encounter Last Filed Vital Signs Vital Sign Reading Time Taken Comments Blood Pressure 100/54 04/22/2022 9:50 AM CDT Pulse 53 04/22/2022 9:50 AM CDT Temperature 36.8 ??C (98.2 ??F) 04/22/2022 9:50 AM CD T Respiratory Rate 20 04/22/2022 9:50 AM CDT Oxygen Saturation 98% 04/22/2022 9:50 AM CDT Inhaled Oxygen Concentration - - Weight 64 kg (141 lb 1.5 oz) 04/22/2022 7:42 AM CDT Height 165.1 cm (5' 5 ) 04/22/2022 7:42 AM CDT Body Mass Index 23.48 04/22/2022 7:42 AM CDT documented in this encounter Discharge Diagnoses Diagnosis Encounter for screening for malignant neoplasm of colon - ENCOUNTER FOR SCREENING FOR MALIGNANT NEOPLASM OF COLON Diverticulosis of large intestine without perforation or abscess without bleeding - DIVERTICULOSIS OF LARGE INTESTINE WITHOUT PERFORATION OR ABSCESS WITHOUT BLEEDING Unspecified hemorrhoids - UNSPECIFIED HEMORRHOIDS Gastro-esophageal reflux disease without esophagitis - GASTRO-ESOPHAGEAL REFLUX DISEASE WITHOUT ESOPHAGITIS Essential (primary) hypertension - ESSENTIAL (PRIMARY) HYPERTENSION Unspecified essential hypertension Hyperlipidemia, unspecified - HYPERLIPIDEMIA, UNSPECIFIED Pure hypercholesterolemia, unspecified - PURE HYPERCHOLESTEROLEMIA, UNSPECIFIED 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 (CMS/HCC) (HCC) - ATHEROSCLEROTIC HEART DISEASE OF [place] CORONARY ARTERY WITH ANGINA PECTORIS WITH DOCUMENTED SPASM Family history of ischemic heart disease and other diseases of the circulatory system - FAMILY HISTORY OF ISCHEMIC HEART DISEASE AND OTHER DISEASES OF THE CIRCULATORY SYSTEM Family history of diabetes mellitus - FAMILY HISTORY OF DIABETES MELLITUS Personal history of other diseases of the digestive system - PERSONAL HISTORY OF OTHER DISEASES OF THE DIGESTIVE SYSTEM Personal history of nicotine dependence - PERSONAL HISTORY OF NICOTINE DEPENDENCE Allergy status to penicillin - ALLERGY STATUS TO PENICILLIN Allergy status to analgesic agent - ALLERGY STATUS TO ANALGESIC AGENT Allergy status to other drugs, medicaments and biological substances - ALLERGY STATUS TO OTHER DRUGS, MEDICAMENTS AND BIOLOGICAL SUBSTANCES Acquired absence of other specified parts of digestive tract - ACQUIRED ABSENCE OF OTHER SPECIFIED PARTS OF DIGESTIVE TRACT Acquired absence of ovaries, bilateral - ACQUIRED ABSENCE OF OVARIES, BILATERAL documented in this encounter Medications at Time [...] ??? Dysphagia ??? Coronary artery disease involving [place] coronary artery of [place] heart without angina pectoris ??? Prinzmetal's angina (CMS/HCC) (HCC) ??? Hx of colonic polyps Past Medical History: Diagnosis Date ??? Dysphagia ??? GERD (gastroesophageal reflux disease) ??? HX OTHER MEDICAL 1976 ; Outcome: 7 lb(s) 2 oz Male ??? HX OTHER MEDICAL 1970 ; Outcome: 7 lb(s) 4 oz Female ??? Hypertension Past Surgical History: Procedure Laterality Date ??? APPENDECTOMY 1996 Appendectomy ??? CARDIAC CATHETERIZATION 2010 HEART CATH ??? CATARACT EXTRACTION W/ INTRAOCULAR [...] - 04/22/2022 7:32 AM CDTAssociated Order(s): COLONOSCOPY [facility] Patient Name: Gabbie Chris Procedure Date: 04/22/2022 7:32 AM Date of : 1955 Admit Type: Outpatient Age: 66 Gender: Female Attending MD: Jaciel Mott M.D. Room: [facility] 2 Note Status: Finalized Patient Profile: Refer to note in patient chart for documentation of history and physical. Procedure: Colonoscopy Indications: High risk colon cancer surveillance: Personal history of colonic polyps, Last colonoscopy: November 2016 Referring MD: Toirto Gonzalez M.D. Providers: Jaciel Mott M.D. Impression: [...] was passed under direct vision. The Colonoscope [id number] was introduced through the anus and advanced [...] history of colonic polyps CPT copyright 2020 [employer]. All rights reserved. The codes documented in this report are preliminary and upon slate mixer review may be revised to meet current compliance requirements. Recognized by the [employer] for promoting quality [...] MD - 04/22/2022 7:32 AM CDT [facility]estive [facility] Patient Name: Gabbie Chris Procedure Date: 04/22/2022 7:32 AM Date of : 1955 Admit Type: Outpatient Age: 66 Gender: Female Attending MD: Jaciel Mott M.D. Room: [facility] 2 Note Status: Finalized [...] scope was passed under direct vision. TheColonoscope [id number] was introduced through the anus and advanced [...] history of colonic polyps CPT copyright 2020 [employer]. All rights reserved. The codes documented in this report are preliminary and upon slate mixer reviewmay be revised to meet current compliance requirements. Recognized by the [employer] for promoting quality [...] infusion 125 mL/hr, intravenous, Continuous, Starting on Mildrde 04/22/22 at 0815, Recovery (GI) 0815 (Due) PRN Medication Order 04/20/2022 04/21/2022 04/22/2022 ondansetron (ZOFRAN) injection 4 mg 4 mg, intravenous, Administer over 2 Minutes, Every 30 min PRN, nausea, vomiting, Starting on Mildred 04/22/22 at 0736, For 2 doses, Recovery (GI), Indications: Nausea and Vomiting 0737 (JAN Hold - Pro vider: Automatic Transfer Provider - Reason: Patient not available)1411 ([facility] Unhold - Provider: Automatic Discharge Provider) sodium chloride 0.9% flush 0.5-20 mL 0.5-20 mL, intra-catheter, As needed, line care, Starting on Mildred 04/22/22 at 0736, Pre-Procedure (GI), Flush volume based on line type and size. Flush before and after each use. 0737 (JAN Hold - Pro vider: Automatic Transfer Provider - Reason: Patient not available)1411 ([facility] Unhold - Provider: Automatic Discharge Provider) documented in this encounter Orders Medications Ordered That Krunal ht Not Have Been Administered Count Last Ordered Date First Ordered Date ondansetron (ZOFRAN) injection 4 mg 1 04/22 sodium chloride 0.9% flush 0.5-20 mL 2 03/29 sodium chloride 0.9% infusion 1 04/22/2022 documented in this encounter Care Teams Way Inspector Relationship Specialty Start Date End Date Torito Gonzalez MD [address] [place] [address] PCP - General 02/25/17 documented as of this encounter
--- OUTSIDE RECORDS SUMMARY | 2024-11-18 11:57 | XMS_ITS | Encounter Summary ---
Author Organization [facility] Address [address] [place] [address] Care Team Providers Care Rubber Attacher Name Role Phone Torito Gonzalez MD Primary Care Provider +1- [phone] Reason for Referral * Diagnostic Imaging (Routine) - Closed Specialty Diagnoses / Procedures Referred By Turner ramirez Referred To Contact Diagnoses Visit for screening mammogram Procedures Screening Mammogram Bilateral W Alhaji Oneal MD [address] [place] [address] [address] [place] [address] Phone: tel: fax: [address] [phone] Referral ID Status Reason Start Date Expiration Date Visits Re quested Visits Authorized [id number] Closed 09/01/2021 10/01/2022 1 1 MOLD TESTER Reason for Visit * Diagnostic Imaging (Routine) - Closed Specialty Diagnoses / Procedures Referred By Turner ramirez Referred To Contact Diagnoses Visit for screening mammogram Procedures Screening Mammogram Bilateral W Alhaji Oneal MD [address] [place] [address] [address] [place] [address] Phone: tel: fax: [address] [phone] Referral ID Status Reason Start Date Expiration Date Visits Re quested Visits Authorized [id number] Closed 09/01/2021 10/01/2022 1 1 Encounter Details Date Type Department Care Team (Latest Contact Info) Description 10/26/2021 7:40 AM 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 - 10/26/2021 11:59 PM 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 Hospital Encounter [facility] [address] [place] [address] Alhaji Payan MD [address] [place] [address] [address] [place] [address] Visit for screening mammogram Discharge Disposition: Discharge to home or self [...] on file Legal Sex Female 1:11 AM 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 Gender Identity Not on file Sexual Orientation [...] total) by mouth daily 90 tablet 3 04/17/2021 04/16/2022 documented as of this encounter Discharge Disposition Disposition Code Departure Means Destination Discharge to home or self care documented in this encounter Plan of Treatment Not on file documented as of this encounter Procedures Procedure Name Priority Date/Time Associated Diagnosis Comments SCREENING MAMMOGRAM BILATERAL W HECTOR Schedule Routine, Read Routine (OP Routine) 10/26/2021 8:04 AM 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 Visit for screening mammogram documented in this encounter Results * Screening Mammogram Bilateral W Hector (10/26/2021 8:04 AM 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) Anatomical Region Laterality Modality Breast Bilateral Mammography 10/26/2021 9:29 AM 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 Impressions 10/26/2021 9:29 AM 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 There is no mammographic evidence of malignancy. A 1 year screening mammogram is recommended. BI-RADS: 1 - Negative. The patient will be entered into a reminder system with a target due date of 1 year for her next mammogram. Electronically signed by: Orly Lopez MD Narrative 10/26/2021 9:29 AM 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 EXAMINATION: SCREENING MAMMOGRAM BILATERAL W HECTOR ORDERING HEALTHCARE PROVIDER: ALHAJI PAYAN HISTORY: Routine screening mammography. COMPARISON: ??10/20/2020, 09/22/2019, 06/26/2018, 06/13/2017, 05/24/2016 and 05/21/2015 TECHNIQUE: CC and MLO views of the bilateral breasts were obtained with digital technique using breast tomosynthesis with C view. Computer aided detection was utilized. FINDINGS: DENSITY: There are scattered fibroglandular elements in the bilateral breasts. BREASTS: There are no suspicious masses, suspicious calcifications, or other suspicious findings in either breast. There has been no suspicious interval change. us Alahji Payan MD IMG MAMMO PROCEDURES Final Result documented in this encounter Visit Diagnoses Diagnosis Visit for screening mammogram documented in this encounter Care Teams Rubber Attacher Relationship Specialty Start Date End Date Torito Gonzalez MD [address] [place] [address] PCP - General 02/25/17 documented as of this encounter
--- OUTSIDE RECORDS SUMMARY | 2024-11-18 11:57 | XMS_ITS | Encounter Summary ---
Author Organization [facility] Address [address] [facility] [address] [place] [address] Care Team Providers Care Journalism Instructor Name Role Phone Torito Gonzalez MD Primary Care Provider +1- [phone] Reason for Visit * Reason Comments Coronary Artery Disease Follow-up Yearly Encounter Details Date Type Department Care Team (Late st Contact Info) Description 04/16/2022 9:00 AM CDT Office Visit [facility] [address] [place] [phone] Jacob Espiita MD [address] [place] [id number] Prinzmetal's angina (CMS/HCC) (HCC) (Primary Dx); Hypercholesterolemia ; Coronary artery disease involving [place] coronary artery of 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 Gender Identity Not on file Sexual Orientation Not on file documented as of this encounter Last Filed Vital Signs Vital Sign Reading Time Taken Comments Blood Pressure 112/80 04/16/2022 8:52 AM CDT Large Adult Cuff Pulse 66 04/16/2022 8:52 AM CDT Temperature - - Respiratory Rate 16 04/16/2022 8:52 AM CDT Oxygen Saturation 96% 04/16/2022 8:5 2 AM CDT Inhaled Oxygen Concentration - - Weight 65 kg (143 lb 3.2 oz) 04/16/2022 8:52 AM CDT Height 165.1 cm (5' 5 ) 04/16/2022 8:52 AM CDT Body Mass Index 23.83 04/16/2022 8:52 AM CDT documented in this encounter Ordered Prescriptions Prescription Sig Dispense Quantity Refills Last Filled Start Date End Date amLODIPine (NORVASC) 5 mg tablet Take 1 tablet (5 mg total) by mouth daily 90 tablet 3 04/16/2022 06/27/2023 documented in this encounter Progress Notes * Jacob Espitia MD - 04/16/2022 9:00 AM CDT Cardiology note Reason for Office Visit: Chief Complaint Patient presents with ??? Coronary Artery Disease ??? Follow-up Yearly History of Present Illness: Gabbie Chris is a 66 y.o. female female seen in follow up for palpitations and probable coronary spasm. Labs from 01/14/22; Chol 198, LDL 112 She has rare palpitations though no syncope. No symptoms of angina or congestive heart failure. Past Medical History: Diagnosis Date ??? Dysphagia ??? GERD (gastroesophageal reflux disease) ??? HX OTHER MEDICAL 1976 ; Outcome: 7 lb(s) 2 oz Male ??? HX OTHER MEDICAL 1970 ; Outcome: 7 lb(s) 4 oz Female ??? Hypertension Review of systems: ROS Family and Social history Family History Problem Relation Age of Onset ??? Coronary artery disease Mother Coronary artery disease; ??? Hypertension Mother Hypertension; ??? Congenital heart disease Brother Congenital heart disease; ??? Diabetes Brother Diabetes mellitus; ??? Hypertension Brother Hypertension; Social History Tobacco Use ??? Smoking status: Former Smoker ??? Smokeless tobacco: Never Used ??? Tobacco comment: Smoking History Packs/day: 0.25 Packs Vaping Use ??? Vaping Use: Never used Substance Use Topics ??? Alcohol use: No ??? Drug use: No Allergies Allergen Reactions ??? Amoxicillin Stomach upset Medications: Current Outpatient Medications Medication Sig Dispense Refill ??? amLODIPine (NORVASC) 5 mg tablet Take 1 tablet (5 mg total) by mouth daily 90 tablet 3 ??? aspirin 81 mg tablet take 1 tablet by oral route every day 0 0 ??? calcium carbonate (CALCIUM 600 ORAL) Take by mouth ??? famotidine (PEPCID) 20 mg tablet Take 20 mg by mouth daily No current facility-administered medications for this visit. Vital Signs: Vitals BP 112/80 (BP Location: Left arm, Patient Position: Sitting) Pulse 66 Resp 16 Ht 165.1 cm (5' 5 ) Wt 65 kg (143 lb 3.2 oz) SpO2 96% BMI 23.83 kg/m?? Vitals: 04/16/22 0852 BP: 112/80 Comment: Large Adult Cuff Pulse: 66 Resp: 16 SpO2: 96% Wt Readings from Last 3 Encounters: 04/16/22 65 kg (143 lb 3.2 oz) 09/01/21 68.5 kg (151 lb) 04/17/21 69.4 kg (153 lb) Physical Exam: Physical Exam Constitutional: She is??oriented to person, place, and time. She appears??well- developed??and well-nourished. HENT: Head:??Normocephalic??and atraumatic. Eyes:??No scleral icterus. Neck:??No JVD??present. No thyromegaly??present. Cardiovascular:??Normal rate,??regular rhythm??and normal heart sounds. Pulmonary/Chest:??Effort normal??and breath sounds normal. Abdominal:??Soft. Musculoskeletal:??Normal range of motion. ?General: No edema. Neurological: She is??alert??and oriented to person, place, and time. Skin: Skin is??warm??and dry. Labs: No lab exists for component: KPLASMA No lab exists for component: LABALBU Lab Results Component Value Date CHOL 177 12/09/2020 TRIG 109 12/09/2020 HDL 58 12/09/2020 LDL 110 05/21/2015 No results found for: TSH, T3FREE, FREET4 Testing: No results found. No results found for this or any previous visit.] CARDIOGRAPHICS: ECG: SR, PRWP cannot exclude old ASMI, unchanged from 12/19/18 Impression and Plan: Diagnoses and all orders for this visit: Prinzmetal's angina (CMS/HCC) (HCC) (Primary) Assessment & Plan: Symptoms well controlled with amlodipine. EKG is unchanged over the last 3 years. Continue same therapy. Prescriptions refilled Hypercholesterolemia Assessment & Plan: LDL cholesterol is 112. Continue dietary modifications. Coronary artery disease involving [place] coronary artery of [place] heart without angina pectoris - ECG 12 lead Other orders - amLODIPine (NORVASC) 5 mg tablet; Take 1 tablet (5 mg total) by mouth daily Thank you for the consult. We will be happy to follow in this patient's care. MORELIA Claire@9:18 AM Cc:Torito Gonzalez MD documented in this encounter Miscellaneous Notes * Assessment & Plan Note - Jacob Espitia MD - 04/16/2022 9:18 AM CDT Associated Problem(s): Hypercholesterolemia LDL cholesterol is 112. Continue dietary modifications. * Assessment & Plan Note - Jacob Espitia MD - 04/16/2022 9:16 AM CDT Associated Problem(s): Prinzmetal's angina (CMS/HCC) (HCC) Symptoms well controlled with amlodipine. EKG is unchanged over the last 3 years. Continue same therapy. Prescriptions refilled documented in this encounter Plan of Treatment Not on file documented as of this encounter Procedures Procedure Name Priority Date/Time Associated Diagnosis Comments ECG 12-LEAD Routine 04/16/2022 Coronary artery disease involving [place] coronary artery of [place] heart without angina pectoris documented in this encounter Results * ECG 12 lead (04/16/2022) Jacob Espitia MD ECG ORDERABLES Edited Result - Final documented in this encounter Visit Diagnoses Diagnosis Prinzmetal's angina (CMS/HCC) (HCC)- Primary Prinzmetal angina Hypercholesterolemia Pure hypercholesterolemia Coronary artery disease involving [place] coronary artery of [place] heart without angina pectoris documented in this encounter Discontinued Medications Medication Sig Discontinue Reason Start Date End Da te amLODIPine (NORVASC) 5 mg tablet Take 1 tablet (5 mg total) by mouth daily 04/17/2021 04/16/2022 documented as of this encounter Care Teams Journalism Instructor Relationship Specialty Start Date End Date Torito Gonzalez MD [address] [place] [address] PCP - General 02/25/17 documented as of this encounter
--- OUTSIDE RECORDS SUMMARY | 2024-11-18 11:58 | XMS_ITS | Encounter Summary ---
Author Organization [facility] Address [address] [place] [address] Care Team Providers Care Reporting Specialist Name Role Phone Torito Gonzalez MD Primary Care Provider +1- [phone] Reason for Visit * Diagnostic Imaging (Routine) - Closed Specialty Diagnoses / Procedures Referred By Turner t Referred To Contact Diagnoses Pain in right hip Procedures XR Hips Bilateral 5 or More Views W Pelvis XR Hips Bilateral 2 Views W Pelvis Torito Gonzalez MD [address] [place] [address] Phone: tel: fax: [address] [phone] Referral ID Status Reason Start Date Expiration Date Visits Re quested Visits Authorized [id number] Closed 07/14/2021 08/13/2022 1 1 Encounter Details Date Type Department Care Team (Late st Contact Info) Description 07/14/2021 10:00 AM CDT - 07/14/2021 11:59 PM CDT Hospital Encounter [facility] [address] [place] [id number] Torito Gonzalez MD [address] [place] [address] Pain in right hip Discharge Disposition: Discharge to home or self [...] points, staff should administer the PHQ-9) 0 08/13/2020 Comments No Sex and Gender Information Value Date Recorded Sex Assigned at Not on file 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 XR HIPS BILATERAL 5 OR MORE VIEWS W PELVIS REASON FOR STUDY: ?? CHRONIC RIGHT HIP PAIN ??Bilateral hip pain for past year. Pt stated her pain has recently gotten worse within the past six months. No known injuries. ?? TECHNIQUE: ?? Frog-leg and AP views of the bilateral hips with AP pelvis. COMPARISON: ?? None FINDINGS: There is no definite evidence of acute fracture or dislocation. ??There are mild degenerative changes bilateral hips with joint space narrowing, mild sclerosis, and minimal spurring. ??There are degenerative changes visualized lower lumbar spine. ??There are mild degenerative changes bilateral sacroiliac joints with mild joint space narrowing and minimal sclerosis. ??There are multiple phleboliths noted overlying the pelvis. IMPRESSION: ?? 1. ??Mild degenerative changes of the bilateral hips without definite evidence of acute displaced fracture or dislocation. THIS IS AN ELECTRONICALLY VERIFIED FINAL REPORT 07/14/2021 11:00 AM - Electronically signed by Haily Palomares D.O. PS: PS D: ??07/14/2021 11:00 AM T: ??07/14/2021 11:00 AM Report ID: [id number] Reading Location: ??[id number] Procedure Note Marielle Haily Higinio, DO - 07/14/2021 EXAM DESCRIPTION: XR HIPS BILATERAL 5 OR MORE VIEWS W PELVIS REASON FOR STUDY: CHRONIC RIGHT HIP PAIN Bilateral hip pain for pastyear. Pt stated her pain has recently gotten worse within the past six months.No known injuries. TECHNIQUE: Frog-leg and AP views of the bilateral hips with AP pelvis. COMPARISON: None FINDINGS: There is no definite evidence of acute fracture or dislocation. There are mild degenerative changes bilateral hips with joint space narrowing, mild sclerosis, and minimal spurring. There are degenerative changesvisualized lower lumbar spine. There are mild degenerative changes bilateralsacroiliac joints with mild joint space narrowing and minimal sclerosis. There are multiple phleboliths noted overlying the pelvis. IMPRESSION: 1. Mild degenerative changes of the bilateral hips without definiteevidence of acute displaced fracture or dislocation. THIS IS AN ELECTRONICALLY VERIFIED FINAL REPORT 07/14/2021 11:00 AM - Electronically signed by Haily Palomares D.O. PS: PS Report ID: [id number] Reading Location: [id number] us Torito Gonzalez MD IMG XR PROCEDURES Final Re sult documented in this encounter Visit Diagnoses Diagnosis Pain in right hip documented in this encounter Care Teams Reporting Specialist Relationship Specialty Start Date End Date Torito Gonzalez MD [address] [place] [address] PCP - General 02/25/17 documented as of this encounter
--- OUTSIDE RECORDS SUMMARY | 2024-11-18 11:58 | XMS_ITS | Encounter Summary ---
Author Organization [facility] Medical [facility] Address [address] [place] [address] Care Team Providers Care Vaccines Solutions Specialist Name Role Phone Torito Gonzalez MD Primary Care Provider [phone]- [phone] Reason for Visit * Reason Onset Date Comments DEXA, Labs 10/28/2020 Encounter Details Date Type Department Care Team (Late st Contact Info) Description 10/28/2020 Telephone [facility] [address] [place] [address] Leticia Montes De Oca RN DEXA, Labs Social History Tobacco Use Types Packs/Day Years [...] on file Legal Sex Female 1:11 AM GEOPHYSICAL ENGINEER Gender Identity Not on file Sexual Orientation Not on file documented as of this encounter Miscellaneous Notes * Telephone Encounter - Leticia Montes De Oca RN - 10/28/2020 9:08 AM GEOPHYSICAL ENGINEER Pt aware. Labs entered in [employer]. HYSICAL ENGINEER * Telephone Encounter - Leticia Montes De Oca RN - 10/28/2020 9:06 AM GEOPHYSICAL ENGINEER ----- Message from Alhaji Payan MD sent at 10/24/2020 12:11 PM GEOPHYSICAL ENGINEER ----- Please call patient with results. Osteopenia of the lumbar spine. The hip was normal. Let's check aPTH, vit. D and calcium. Thanks. HYSICAL ENGINEER documented in this encounter Plan of Treatment Not on file documented as of this encounter Results * Calcium level (11/06/2020 9:38 AM GEOPHYSICAL ENGINEER) Calcium 9.3 8.5 - 10.3 mg/dL [facility] ([place]) Blood specimen (specimen) 11/06/2020 9:38 AM GEOPHYSICAL ENGINEER 11/06/2020 10:39 AM GEOPHYSICAL ENGINEER us Alhaji Payan MD LAB BLOOD ORDERABLES Final Result Performing Organization Address City/[facility]/ZIP Co de Phone Number [facility] ([place]) [address] [place] [address] * Vitamin D 25 hydroxy (11/06/2020 9:38 AM GEOPHYSICAL ENGINEER) Vitamin D 25-OH 35 30 - 80 ng/mL [facility] ([place]) Blood specimen (specimen) 11/06/2020 9:38 AM GEOPHYSICAL ENGINEER 11/06/2020 10:39 AM GEOPHYSICAL ENGINEER us Alhaji Payan MD LAB BLOOD ORDERABLES Final Result [facility] [address] [place] [address] * PTH (11/06/2020 9:38 AM GEOPHYSICAL ENGINEER) PTH 24 15 - 65 pg/mL [facility] ([place]) Blood specimen (specimen) 11/06/2020 9:38 AM GEOPHYSICAL ENGINEER 11/06/2020 10:39 AM GEOPHYSICAL ENGINEER us Alhaji Payan MD LAB BLOOD ORDERABLES Final Result [facility] [address] [place] [address] documented in this encounter Visit Diagnoses Diagnosis Osteopenia of lumbar spine- Primary documented in this encounter Care Teams Vaccines Solutions Specialist Relationship Specialty Start Date End Date Torito Gonzalez MD [address] [place] [address] PCP - General 02/25/17 documented as of this encounter
--- OUTSIDE RECORDS SUMMARY | 2024-11-18 11:58 | XMS_ITS | Encounter Summary ---
Author Organization [facility] Medical [facility] Address [address] [facility] [address] [place] [address] Care Team Providers Care Administrative Office Assistant Name Role Phone Torito Gonzalez MD Primary Care Provider [phone]- [phone] Reason for Visit * Reason Comments Coronary Artery Disease Hyperlipidemia Follow-up Encounter Details Date Type Department Care Team (Late st Contact Info) Description 04/17/2021 9:00 AM CDT Office Visit [place] [facility] [employer] [address] [place] [phone] Jacob Espitia MD [address] [place] [phone] Prinzmetal's angina (CMS/HCC) (Primary Dx); 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; Hypercholesterolemia Social History Tobacco Use Types Packs/Day [...] on file 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 Gender Identity Not on file Sexual Orientation Not on file documented as of this encounter Last Filed Vital Signs Vital Sign Reading Time Taken Comments Blood Pressure 110/76 04/17/2021 8:47 AM CDT Pulse 65 04/17/2021 8:47 AM CDT Temperature - - Respiratory Rate 18 04/17/2021 8:47 AM CDT Oxygen Saturation 97% 04/17/2021 8:47 AM CDT Inhaled Oxygen Concentration - - Weight 69.4 kg (153 lb) 04/17/2021 8:47 AM CDT Height 165.1 cm (5' 5 ) 04/17/2021 8:47 AM CDT Body Mass Index 25.46 04/17/2021 8:47 AM CDT documented in this encounter Ordered Prescriptions Prescription Sig Dispense Quantity Refills Last Filled Start Date End Date amLODIPine (NORVASC) 5 mg tablet Take 1 tablet (5 mg total) by mouth daily 90 tablet 3 04/17/2021 04/16/2022 documented in this encounter Progress Notes * Jacob Espitia MD - 04/17/2021 9:00 AM CDT Cardiology note Reason for Office Visit: Chief Complaint Patient presents with ??? Coronary Artery Disease ??? Hyperlipidemia ??? Follow-up History of Present Illness: Gabbie Chris is a 65 y.o. female seen in follow up for palpitations and probable coronary spasm. No angina, No syncope or CHF. Rare palpitations ( flutters) Past Medical History: Diagnosis Date ??? Dysphagia ??? GERD (gastroesophageal reflux disease) ??? HX OTHER MEDICAL 1976 ; Outcome: 7 lb(s) 2 oz Male ??? HX OTHER MEDICAL 1970 ; Outcome: 7 lb(s) 4 oz Female ??? Hypertension Review of systems: Review of Systems All [...] Tobacco comment: Smoking History Packs/day: 0.25 Packs Substance Use Topics ??? Alcohol use: No ??? Drug use: No No Known Allergies Medications: Current Outpatient Medications Medication Sig Dispense Refill ??? amLODIPine (NORVASC) 5 mg tablet Take 1 tablet (5 mg total) by mouth daily 30 tablet 0 ??? aspirin 81 mg tablet take 1 tablet by oral route every day 0 0 ??? calcium carbonate (CALCIUM 600 ORAL) Take by mouth ??? famotidine (PEPCID) 20 mg tablet Take 20 mg by mouth daily No current facility-administered medications for this visit. Vital Signs: Vitals BP 110/76 Pulse 65 Resp 18 Ht 165.1 cm (5' 5 ) Wt 69.4 kg (153 lb) SpO2 97% BMI 25.46 kg/m?? Vitals: 04/17/21 0847 BP: 110/76 Pulse: 65 Resp: 18 SpO2: 97% Wt Readings from Last 3 Encounters: 04/17/21 69.4 kg (153 lb) 10/20/20 68 kg (150 lb) 08/13/20 68.9 kg (152 lb) Physical Exam: Physical Exam Constitutional: She is oriented to person, place, and time. She appears well- developed and well-nourished. HENT: Head: Normocephalic and atraumatic. Eyes: No scleral icterus. Neck: No JVD present. No thyromegaly present. Cardiovascular: Normal rate, regular rhythm and normal heart sounds. Pulmonary/Chest: Effort normal and breath sounds normal. Abdominal: Soft. Musculoskeletal: Normal range of motion. General: No edema. Neurological: She is alert and oriented to person, place, and time. Skin: Skin is warm and dry. Labs: No lab exists for component: KPLASMA No lab exists for component: LABALBU Lab Results Component Value Date CHOL 177 12/09/2020 TRIG 109 12/09/2020 HDL 58 12/09/2020 LDL 110 05/21/2015 No results found for: TSH, T3FREE, FREET4 Testing: No results found. 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 Gonzalez. Other orders - amLODIPine (NORVASC) 5 mg tablet; Take 1 tablet (5 mg total) by mouth daily Thank you for the consult. We will be happy to follow in this patient's care. Jacob Espitia, MDDATE@9:20 AM Cc:Torito Gonzalez MD documented in this encounter Miscellaneous Notes * Assessment & Plan Note - Jacob Espitia MD - 04/17/2021 9:19 AM CDT Associated Problem(s): Hypercholesterolemia Managed by Dr. Gonzalez. 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
--- OUTSIDE RECORDS SUMMARY | 2024-11-18 11:58 | XMS_ITS | Encounter Summary ---
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
--- OUTSIDE RECORDS SUMMARY | 2024-11-18 11:58 | XMS_ITS | Encounter Summary ---
Author Organization [facility] Healthcare Address [address] [place] [address] Care Team Providers Care Agricultural Education Instructor Name Role Phone Torito Gonzalez MD Primary Care Provider +1- [phone] Encounter Details Date Type Department Care Team (Late st Contact Info) Description 12/09/2020 7:50 AM CATTLE DRIVER Lab [address] [address] Torito Gonzalez MD [address] [place] [address] Discharge Disposition: Discharge to home or self [...] file Legal Sex Female 1:11 AM CATTLE DRIVER Gender Identity Not on file Sexual Orientation Not on file documented as of this encounter Discharge Disposition Disposition Code Departure Means Destination Discharge to home or self care documented in this encounter Plan of Treatment Not on file documented as of this encounter Procedures Procedure Name Priority Date/Time Associated Diagnosis Comments EGFR Routine 12/09/2020 7:46 AM CATTLE DRIVER LIPID PANEL Routine 12/09/2020 7:46 AM CATTLE DRIVER COMPREHENSIVE METABOLIC PANEL Routine 12/09/2020 7:46 AM CATTLE DRIVER documented in this encounter Results * eGFR (12/09/2020 7:46 AM CATTLE DRIVER) eGFR 76 mL/min/1.7 3 m2 [facility] ([place]) Comment: Interpretive Data Reference Interval Normal ?>/= 90 mL/min/1.73m2 Mildly decreased* ? 60 - 89 mL/min/1.73m2 Mildly to moderately decreased ?45 - 59 mL/min/1.73m2 Moderately to severely decreased ??30 - 44 mL/min/1.73m2 Severely decreased ?15 - 29 mL/min/1.73m2 Kidney Failure ?< 15 ??mL/min/1.73m2 *Relative to young adult level Estimated glomerular filtration rate is determined by the CKD-EPI equation recommended by the National Kidney Foundation (KDIGO 2012 Clinical Practice Guideline for the Evaluation and Management of Chronic Kidney Disease. Kidney Intnl Suppl Nov 2012;3:1). The CKD-EPI equation should not be used for patients with unstable renal function and has not been validated in children and those over 70. Current interpretive data was last reviewed 2020 Blood specimen (specimen) 12/09/2020 7:46 AM CATTLE DRIVER 12/09/2020 8:11 AM CATTLE DRIVER us Torito Gonzalez MD LAB BLOOD ORDERABLES Final Result [facility] ([place]) 1 [facility] Department [place] [address] * Lipid panel (12/09/2020 7:46 AM CATTLE DRIVER) Pathologist [facility] Cholesterol 177 30 - 199 mg/dL [facility] ([place]) Comment: Interpretive Data Ages < or = [...] Data was last revised on 2018. Triglycerides 109 <=149 mg/dL [facility]) Comment: Interpretive Data Ages < or = [...] Data was last revised on 2018. HDL 58 >=40 mg/dL [facility]) Comment: Interpretive Data Ages < or = [...] was last revised on 2018. LDL, calculated 97 <=129 mg/dL [facility] ([place]) Comment: Interpretive Data Ages < or = [...] was last revised on 2018. Non-HDL Cholesterol 119 mg/dL [facility] ([place]) Comment: Interpretive Data Ages < or = [...] last revised on 2018. Chol/HDL ratio 3 [facility] ([place]) Blood specimen (specimen) 12/09/2020 7:46 AM CATTLE DRIVER 12/09/2020 8:11 AM CATTLE DRIVER us Torito Gonzalez MD LAB BLOOD ORDERABLES Final Result [facility] ([place]) 1 [facility] Department [place] [address] * Comprehensive metabolic panel (12/09/2020 7:46 AM CATTLE DRIVER) Sodium 140 135 - 145 mmol/L [facility] ([place]) Potassium, pl 3.9 3.3 - 4.9 mmol/L [facility] ([place]) Chloride 105 97 - 110 mmol/L [facility]) CO2 28 22 - 32 mmol/L [facility] ([place]) Anion gap 7 2 - 15 mmol/L [facility] ([place]) BUN 17 8 - 25 mg/dL [facility] ([place]) Creatinine 0.80 0.60 - 1.10 mg/dL [facility] ([place]) Glucose 85 70 - 199 mg/dL [facility] ([place]) [...] classification and Diagnosis of Diabetes Diabetes Care 2017;40 (Suppl. 1):S11. Current interpretive data was last revised 2017. Calcium 9.3 8.5 - 10.3 mg/dL [facility] ([place]) Bilirubin, total 0.3 0.1 - 1.2 mg/dL [facility] ([place]) Protein, pl 6.8 6.5 - 8.5 g/dL [facility] ([place]) Albumin 3.8 3.5 - 5.0 g/dL [facility] ([place]) Alk phos 87 40 - 130 Units/L [facility] ([place]) ALT 17 7 - 45 Units/L [facility] ([place]) AST 20 10 - 45 Units/L [facility] ([place]) Blood specimen (specimen) 12/09/2020 7:46 AM CATTLE DRIVER 12/09/2020 8:11 AM CATTLE DRIVER us Torito Gonzalez MD LAB BLOOD ORDERABLES Final Result [facility] ([place] 1 [facility] Department [place] [address] documented in this encounter Visit Diagnoses Not on filedocumented in this encounter Care Teams Agricultural Education Instructor Relationship Specialty Start Date End Date Torito Gonzalez MD [address] [place] [address] PCP - General 02/25/17 documented as of this encounter
--- OUTSIDE RECORDS SUMMARY | 2024-11-18 11:58 | XMS_ITS | Encounter Summary ---
Author Organization [facility] Address [address] [place] [address] Care Team Providers Care Screen Cleaner Name Role Phone Torito Gonzalez MD Primary Care Provider +1- [phone] Reason for Referral * Diagnostic Imaging (Routine) - Closed Specialty Diagnoses / Procedures Referred By Contac t Referred To Contact Diagnoses Osteopenia, unspecified location Procedures Dexa Axial Skeleton Bone Density 1 Or 2 Site Alhaji Payan MD [address] [place] [address] [address] [place] [address] Phone: tel: fax: [address] [phone] Referral ID Status Reason Start Date Expiration Date Visits Re quested Visits Authorized [id number] Closed 08/13/2020 09/12/2021 1 1 ET MACHINE OPERATOR Reason for Visit * Diagnostic Imaging (Routine) - Closed Specialty Diagnoses / Procedures Referred By Contac t Referred To Contact Diagnoses Osteopenia, unspecified location Procedures Dexa Axial Skeleton Bone Density 1 Or 2 Site Alhaji Payan MD [address] [place] [address] [address] [place] [address] Phone: tel: fax: [address] [phone] Referral ID Status Reason Start Date Expiration Date Visits Re quested Visits Authorized [id number] Closed 08/13/2020 09/12/2021 1 1 Encounter Details Date Type Department Care Team (Latest Contact Info) Description 10/20/2020 7:18 AM BASKET MACHINE OPERATOR - 10/20/2020 11:59 PM BASKET MACHINE OPERATOR Hospital Encounter [facility] [address] [place] [address] Alhaji Payan MD [address] [facility] [address] [place] [address] Osteopenia, unspecified location Discharge Disposition: Discharge to home [...] on file Legal Sex Female 1:11 AM BASKET MACHINE OPERATOR Gender Identity Not on file Sexual [...] other day amLODIPine (NORVASC) 5 mg tablet TAKE 1 TABLET DAILY 90 tablet 3 05/27/2020 04/13/2021 documented as of this encounter Discharge Disposition Disposition Code Departure Means Destination Discharge to home or self care documented in this encounter Miscellaneous Notes * Result Encounter Note - Alhaji Payan MD - 10/20/2020 11:59 PM BASKET MACHINE OPERATOR Please call patient with results. Osteopenia of the lumbar spine. The hip was normal. Let's check aPTH, vit. D and calcium. Thanks. ET MACHINE OPERATOR documented in this encounter Plan of Treatment Not on file documented as of this encounter Procedures Procedure Name Priority Date/Time Associated Diagnosis Comments DEXA AXIAL SKELETON BONE DENSITY 1 OR MORE SITES Schedule Routine, Read Routine (OP Routine) 10/20/2020 7:53 AM BASKET MACHINE OPERATOR Osteopenia, unspecified location documented in this encounter Results * Dexa Axial Skeleton Bone Density 1 Or 2 Site (10/20/2020 7:53 AM BASKET MACHINE OPERATOR) Anatomical Region Laterality Modality Body N/A Other 10/20/2020 8:02 AM BASKET MACHINE OPERATOR Impressions 10/20/2020 8:03 AM BASKET MACHINE OPERATOR According to the World Health Organization criteria, based upon the lumbar spine bone mineral density (T score value of -2.0), the patient has low bone mass (osteopenia). In this patient with low bone mass not currently on biphosphonate therapy, the 10 year probability for major osteoporotic fracture is 7.6% and for hip fracture is 0.4%. According to the World Health Organization, biphosphonate therapy is indicated if 10 year risk for a major osteoporotic fracture is greater than or equal to 20% or the 10 year risk for hip fracture is greater than or equal to 3%. General Recommendations: ?? 1. Consider an evaluation for secondary causes of osteoporosis in patients with low bone density. ?? 2. All patients should be counseled on adequate intake of calcium (1200 mg/day), vitamin D (600-800 IU daily) and exercise. ?? 3. The National Osteoporosis Foundation (NOF) guidelines recommend initiating pharmacological therapy, in addition to calcium, vitamin D and exercise, to reduce fracture risk when: ?? a. T-score less than or equal to -2.5 after secondary causes excluded. ?? b. T-score between -1.0 and -2.5 with secondary causes associated with high risk of fracture. ?? c. 10-year probability of hip fracture more than or equal to 3% (based on FRAX score). ?? d. 10-year probability of major osteoporosis related fracture more than or equal to 20% (based on FRAX score). ?? Followup: ?? People with diagnosed cases of osteoporosis or at high risk for fracture should have regular bone mineral density tests. ??For patients eligible for Medicare, routine testing is allowed once every 2 years. The testing frequency can be increased to one year for patients who have rapidly progressive disease or those who are receiving long-term steroid therapy. ?? Electronically signed by: Josh Avalos M.D. Narrative 10/20/2020 8:03 AM BASKET MACHINE OPERATOR STUDY DESCRIPTION: DEXA AXIAL SKELETON BONE DENSITY 1 OR MORE SITES CLINICAL INDICATIONS: Osteopenia. COMPARISON: 06/13/2017, 06/12/2015, 04/05/2013 TECHNIQUE: Dual x-ray absorptiometry (DEXA) was performed using [employer] system. GENERAL GUIDELINES: According to WHO guidelines, a T score of -1.0 or greater is normal, between -1.0 to -2.4 is osteopenia, and -2.5 or less is osteoporosis. Z score (instead of T score) is preferred for pediatric, young adults, premenopausal women and men under age of 50 years. ??In these patients, a Z score greater than or equal to -2.0 is considered to be in the expected range. FINDINGS: LEFT FEMORAL NECK: T-score -0.4. Bone mineral density 0.804 g/sq/cm. LEFT TOTAL HIP: T-score -0.4. Bone mineral density 0.899 g/sq/cm. LUMBAR SPINE: T-score -2.0. Bone mineral density 0.826 g/sq/cm. This is a statistically significant decrease from prior exam. Procedure Note Josh Avalos MD - 10/20/2020 STUDY DESCRIPTION: DEXA AXIAL SKELETON BONE DENSITY 1 OR MORE SITES CLINICAL INDICATIONS: Osteopenia. COMPARISON: 06/13/2017, 06/12/2015, 04/05/2013 TECHNIQUE: Dual x-ray absorptiometry (DEXA) was performed using [employer] system. GENERAL GUIDELINES: According to WHO guidelines, a T score of -1.0 or greater is normal, between -1.0 to -2.4 is osteopenia, and -2.5 or less is osteoporosis. Z score (instead of T score) is preferred for pediatric, young adults, premenopausal women and men under age of 50 years. In these patients, a Z score greater than or equal to -2.0 is considered to be in the expected range. FINDINGS: LEFT FEMORAL NECK: T-score -0.4. Bone mineral density 0.804 g/sq/cm. LEFT TOTAL HIP: T-score -0.4. Bone mineral density 0.899 g/sq/cm. LUMBAR SPINE: T-score -2.0. Bone mineral density 0.826 g/sq/cm. This is a statistically significant decrease from prior exam. IMPRESSION: According to the World Health Organization criteria, based upon the lumbar spine bone mineral density (T score value of -2.0), the patient has low bone mass (osteopenia). In this patient with low bone mass not currently on biphosphonate therapy, the 10 year probability for major osteoporotic fracture is 7.6% and for hip fracture is 0.4%. According to the World Health Organization, biphosphonate therapy is indicated if 10 year risk for a major osteoporotic fracture is greater than or equal to 20% or the 10 year risk for hip fracture is greater than or equal to 3%. General Recommendations: 1. Consider an evaluation for secondary causes of osteoporosis in patients with low bone density. 2. All patients should be counseled on adequate intake of calcium (1200 mg/day), vitamin D (600-800 IU daily) and exercise. 3. The National Osteoporosis Foundation (NOF) guidelines recommend initiating pharmacological therapy, in addition to calcium, vitamin D and exercise, to reduce fracture risk when: a. T-score less than or equal to -2.5 after secondary causes excluded. b. T-score between -1.0 and -2.5 with secondary causes associated with high risk of fracture. c. 10-year probability of hip fracture more than or equal to 3% (based on FRAX score). d. 10-year probability of major osteoporosis related fracture more than or equal to 20% (based on FRAX score). Followup: People with diagnosed cases of osteoporosis or at high risk for fracture should have regular bone mineral density tests. For patients eligible for Medicare, routine testing is allowed once every 2 years. The testing frequency can be increased to one year for patients who have rapidly progressive disease or those who are receiving long-term steroid therapy. Electronically signed by: Josh Avalos M.D. Alhaji Payan MD IMG DXA PROCEDURES Final R esult documented in this encounter Visit Diagnoses Diagnosis Osteopenia, unspecified location documented in this encounter Care Teams Screen Cleaner Relationship Specialty Start Date End Date Torito Gonzalez MD [address] [place] [address] PCP - General 02/25/17 documented as of this encounter
--- OUTSIDE RECORDS SUMMARY | 2024-11-18 11:58 | XMS_ITS | Encounter Summary ---
Author Organization [facility] Address [address] [place] [address] Care Team Providers Care Video Game Repair Technician Name Role Phone Torito Gonzalez MD Primary Care Provider +1- [phone] Reason for Referral * Diagnostic Imaging (Routine) - Closed Specialty Diagnoses / Procedures Referred By Turner ramirez Referred To Contact Diagnoses Visit for screening mammogram Procedures Screening Mammogram Bilateral W Alhaji Oneal MD [address] [place] [address] [address] [place] [address] Phone: tel: fax: [address] [phone] Referral ID Status Reason Start Date Expiration Date Visits Re quested Visits Authorized [id number] Closed 08/13/2020 09/12/2021 1 1 ER UP Reason for Visit * Diagnostic Imaging (Routine) - Closed Specialty Diagnoses / Procedures Referred By Turner ramirez Referred To Contact Diagnoses Visit for screening mammogram Procedures Screening Mammogram Bilateral W Alhaji Oneal MD [address] [place] [address] [address] [place] [address] Phone: tel: fax: [address] [phone] Referral ID Status Reason Start Date Expiration Date Visits Re quested Visits Authorized [id number] Closed 08/13/2020 09/12/2021 1 1 Encounter Details Date Type Department Care Team (Latest Contact Info) Description 10/20/2020 7:17 AM KNIFER UP Hospital Encounter [facility] [address] [place] [id number] Alhaji Payan MD [address] [place] [address] Visit for screening mammogram Discharge Disposition: Discharge [...] on file Legal Sex Female 1:11 AM KNIFER UP Gender Identity Not on file Sexual Orientation [...] HECTOR Schedule Routine, Read Routine (OP Routine) 10/20/2020 7:42 AM KNIFER UP Visit for screening mammogram documented in this encounter Results * Screening Mammogram Bilateral W Hector (10/20/2020 7:42 AM KNIFER UP) Anatomical Region Laterality Modality Breast Bilateral Mammography 10/21/2020 9:16 AM KNIFER UP Impressions 10/21/2020 9:22 AM KNIFER UP There is no mammographic evidence of malignancy. A 1 year screening mammogram is recommended. BI-RADS: 1 - Negative. The patient will be entered into a reminder system with a target due date of 1 year for her next mammogram. Electronically signed by: Seth Lacey M.D. Narrative 10/21/2020 9:22 AM KNIFER UP EXAMINATION: SCREENING MAMMOGRAM BILATERAL W HECTOR ORDERING HEALTHCARE PROVIDER: ALHAJI PAYAN HISTORY: Routine screening mammography. COMPARISON: ??09/22/2019, 06/26/2018, 06/13/2017, 05/24/2016. TECHNIQUE: CC and MLO views of the bilateral breasts were obtained with digital technique using breast tomosynthesis with C view. Computer aided detection was utilized. FINDINGS: DENSITY: There are scattered fibroglandular elements in the bilateral breasts. BREASTS: There are no suspicious masses, suspicious calcifications, or other suspicious findings in either breast. There has been no suspicious interval change. us Alhaji Payan MD IMG MAMMO PROCEDURES Final Result documented in this encounter Visit Diagnoses Diagnosis Visit for screening mammogram documented in this encounter Care Teams Video Game Repair Technician Relationship Specialty Start Date End Date Torito Gonzalez MD [address] [place] [address] PCP - General 02/25/17 documented as of this encounter
--- OUTSIDE RECORDS SUMMARY | 2024-11-18 11:58 | XMS_ITS | Encounter Summary ---
Author Organization [facility] Address [address] [place] [address] Care Team Providers Care Glass Wool Blanket Machine Feeder Name Role Phone Torito Gonzalez MD Primary Care Provider +1- [phone] Reason for Referral * Diagnostic Imaging (Routine) - Closed Specialty Diagnoses / Procedures Referred By Turner ramirez Referred To Contact Diagnoses Visit for screening mammogram Procedures Screening Mammogram Bilateral W Alhaji Oneal MD [address] [place] [address] [address] [place] [address] Phone: tel: fax: [facility] [address] [place] [address] Referral ID Status Reason Start Date Expiration Date Visits Re quested Visits Authorized [id number] Closed 09/01/2021 10/01/2022 1 1 Reason for Visit * Reason Comments Gynecologic Exam Annual Encounter Details Date Type Department Care Team (Late st Contact Info) Description 09/01/2021 9:00 AM CDT Office Visit [facility] [address] [facility] [address] [place] [id number] Alhaji Payan MD [address] [place] [address] [address] [place] [address] Well woman exam (Primary Dx); Visit for screening mammogram; Screening for colon cancer; Osteopenia of lumbar spine Social History Tobacco Use Types Packs/Day Years [...] on file Legal Sex Female 1:11 AM BAT BOY/GIRL Gender Identity Not on file Sexual Orientation Not on file documented as of this encounter Last Filed Vital Signs Vital Sign Reading Time Taken Comments Blood Pressure 136/78 09/01/2021 8:49 AM CDT Pulse - - Temperature - - Respiratory Rate - - Oxygen Saturation - - Inhaled Oxygen Concentration - - Weight 68.5 kg (151 lb) 09/01/2021 8:49 AM CDT Height 165.1 cm (5' 5 ) 09/01/2021 8:49 AM CDT Body Mass Index 25.13 09/01/2021 8:49 AM CDT documented in this encounter Progress Notes * Alhaji Payan MD - 09/01/2021 9:00 AM CDT Well Woman Exam Subjective: Pateint presents for: Gynecologic Exam (Annual) Gabbie Chris is a 66 y.o. year old female who presents for a well woman exam. She denies c/os. No pelvic pain or vaginal discharge. Contraception:Menopause. No LMP recorded. Patient has had a hysterectomy. Past Medical History: Diagnosis Date ??? Dysphagia [...] BILATERAL SALPINGOOPHORECTOMY 1995 [place]/BSO Current Outpatient Medications: ??? amLODIPine (NORVASC) 5 mg tablet, Take 1 tablet (5 mg total) by mouth daily, Disp: 90 tablet, Rfl: 3 ??? aspirin 81 mg tablet, take 1 tablet by oral route every day, Disp: 0, Rfl: 0 ??? calcium carbonate (CALCIUM 600 ORAL), Take by mouth, Disp: , Rfl: ??? famotidine (PEPCID) 20 mg tablet, Take 20 mg by mouth daily, Disp: , Rfl: No Known Allergies Family History Problem Relation Age of Onset ??? Coronary artery disease Mother Coronary artery disease; ??? Hypertension Mother Hypertension; ??? Congenital heart disease Brother Congenital heart disease; ??? Diabetes Brother Diabetes mellitus; ??? Hypertension Brother Hypertension; Social History Socioeconomic History ??? Marital status: Spouse name: None ??? Number of children: 2 ??? Years of education: None ??? Highest education level: None Occupational History ??? None Tobacco Use ??? Smoking status: Former Smoker ??? Smokeless tobacco: Never Used ??? Tobacco comment: Smoking History Packs/day: 0.25 Packs Substance and Sexual Activity ??? Alcohol use: No ??? Drug use: No ??? Sexual activity: Not Currently Other Topics Concern ??? None Social History Narrative ??? None Social Determinants of Health Financial Resource Strain: ??? Difficulty of Paying Living Expenses: Not on file Food Insecurity: ??? Worried About Running Out of Food in the Last Year: Not on file ??? Ran Out of Food in the Last Year: Not on file Transportation Needs: ??? Lack of Transportation (Medical): Not on file ??? Lack of Transportation (Non-Medical): Not on file Physical Activity: ??? Days of Exercise per Week: Not on file ??? Minutes of Exercise per Session: Not on file Stress: ??? Feeling of Stress : Not on file Social Connections: ??? Frequency of Communication with Friends and Family: Not on file ??? Frequency of Social Gatherings with Friends and Family: Not on file ??? Attends Yarsani Services: Not on file ??? Active Member of Clubs or Organizations: Not on file ??? Attends Club or Organization Meetings: Not on file ??? Marital Status: Not on file Intimate Partner Violence: ??? Fear of Current or Ex-Partner: Not on file ??? Emotionally Abused: Not on file ??? Physically Abused: Not on file ??? Sexually Abused: Not on file Review of Systems Constitutional: Negative for chills, fatigue, fever and unexpected weight change. HENT: Negative for hearing loss, sore throat, tinnitus and trouble swallowing. Eyes: Negative for pain and visual disturbance. Respiratory: Negative for cough, shortness of breath and wheezing. Cardiovascular: Negative for chest pain, [...] The patient is not nervous/anxious. Objective: BP 136/78 (BP Location: Right arm) Ht 165.1 cm (5' 5 ) Wt 151 lb (68.5 kg) BMI 25.13 kg/m?? Physical Exam Constitutional: Appearance: She is [...] or tenderness. Left: No mass or tenderness. Rectum: Normal. Guaiac result negative. Comments: Uterus surgically absent. Musculoskeletal: General: No [...] (Primary) Visit for screening mammogram Comments: Script given. Orders: - Screening Mammogram Bilateral W Hector; Future Screening for colon cancer - POCT fecal occult blood Osteopenia of lumbar spine Comments: Continue calcium and vit. D BID. Recommended screenings and preventive care discussed: Breast cancer: Breast Self Exam encouraged. Pap deferred. Calcium and vitamin D BID recommended and cholesterol followed by PCP. Low fat, low carbohydrate diet and exercise encouraged. Return in about 1 year (around 09/01/2022) for annual exam. Alhaji Payan MD 09/01/2021 documented in this encounter Plan of Treatment Not on file documented as of this encounter Procedures Procedure Name Priority Date/Time Associated Diagnosis Comments POCT FECAL OCCULT BLOOD, NOT FOR NEOPLASM SCREENING Routine 09/01/2021 9:24 AM CDT Screening for colon cancer documented in this encounter Results * Screening Mammogram Bilateral W Hector (10/26/2021 8:04 AM BAT BOY/GIRL) Anatomical Region Laterality Modality Breast Bilateral Mammography 10/26/2021 9:29 AM BAT BOY/GIRL Impressions 10/26/2021 9:29 AM BAT BOY/GIRL There is no mammographic evidence of malignancy. A 1 year screening mammogram is recommended. BI-RADS: 1 - Negative. The patient will be entered into a reminder system with a target due date of 1 year for her next mammogram. Electronically signed by: Orly Lopez MD Narrative 10/26/2021 9:29 AM BAT BOY/GIRL EXAMINATION: SCREENING MAMMOGRAM BILATERAL W HECTOR ORDERING [...] MD IMG MAMMO PROCEDURES Final Result * POCT fecal occult blood (09/01/2021 9:24 AM CDT) Fecal Globin, POC Negative Rectum 09/01/2021 9:24 AM CDT us Alhaji Payan MD POINT OF CARE TEST ORDERAB LES Final Result documented in this encounter Visit Diagnoses Diagnosis Well woman exam- Primary Routine general medical examination at a health care facility Visit for screening mammogram Screening for colon cancer Special screening for malignant neoplasms, colon Osteopenia of lumbar spine Visit for screening mammogram documented in this encounter Care Teams Glass Wool Blanket Machine Feeder Relationship Specialty Start Date End Date Torito Gonzalez MD [address] [place] [address] PCP - General 02/25/17 documented as of this encounter
--- OUTSIDE RECORDS SUMMARY | 2024-11-18 11:58 | XMS_ITS | Encounter Summary ---
Author Organization [facility] Address [address] [place] [address] Care Team Providers Care Motor Equipment Lieutenant Name Role Phone Torito Gonzalez MD Primary Care Provider +1- [phone] Encounter Details Date Type Department Care Team (Late st Contact Info) Description 11/06/2020 9:35 AM DIRECTOR CHEMISTRY Lab [facility] [address] [place] [address] Alhaji Payan MD [address] [place] [address] Osteopenia of lumbar spine Discharge Disposition: Discharge to home or self [...] file Legal Sex Female 1:11 AM DIRECTOR CHEMISTRY Gender Identity Not on file Sexual Orientation Not on file documented as of this encounter Discharge Disposition Disposition Code Departure Means Destination Discharge to home or self care documented in this encounter Plan of Treatment Not on file documented as of this encounter Procedures Procedure Name Priority Date/Time Associated Diagnosis Comments VITAMIN D 25 HYDROXY Routine 11/06/2020 9:38 AM DIRECTOR CHEMISTRY Osteopenia of lumbar spine PTH Routine 11/06/2020 9:38 AM DIRECTOR CHEMISTRY Osteopenia of lumbar spine CALCIUM LEVEL Routine 11/06/2020 9:38 AM DIRECTOR CHEMISTRY Osteopenia of lumbar spine documented in this encounter Results * PTH (11/06/2020 9:38 AM DIRECTOR CHEMISTRY) PTH 24 15 - 65 pg/mL [facility] ([place]) Blood specimen (specimen) 11/06/2020 9:38 AM DIRECTOR CHEMISTRY 11/06/2020 10:39 AM DIRECTOR CHEMISTRY Alhaji Payan MD LAB BLOOD ORDERABLES Final Result [facility] ([place]) [address] [facility] [place] [address] * Vitamin D 25 hydroxy (11/06/2020 9:38 AM DIRECTOR CHEMISTRY) Vitamin D 25-OH 35 30 - 80 ng/mL [facility] ([place]) Blood specimen (specimen) 11/06/2020 9:38 AM DIRECTOR CHEMISTRY 11/06/2020 10:39 AM DIRECTOR CHEMISTRY Alhaji Payan MD LAB BLOOD ORDERABLES Final Result [facility] ([place] [address] [facility] [place] [address] * Calcium level (11/06/2020 9:38 AM DIRECTOR CHEMISTRY) Calcium 9.3 8.5 - 10.3 mg/dL [facility] ([place]) Blood specimen (specimen) 11/06/2020 9:38 AM DIRECTOR CHEMISTRY 11/06/2020 10:39 AM DIRECTOR CHEMISTRY Alhaji Payan MD LAB BLOOD ORDERABLES Final Result [facility] ([place]) [address] [facility] [place] [address] documented in this encounter Visit Diagnoses Diagnosis Osteopenia of lumbar spine documented in this encounter Care Teams Motor Equipment Lieutenant Relationship Specialty Start Date End Date Torito Gonzalez MD [address] [place] [address] PCP - General 02/25/17 documented as of this encounter
--- OUTSIDE RECORDS SUMMARY | 2024-11-18 11:59 | XMS_ITS | Encounter Summary ---
Author Organization [facility] Address [address] [place] [address] Care Team Providers Care Fibre Optics Jointer Name Role Phone Torito Gonzalez MD Primary Care Provider +1- [phone] Reason for Visit * Reason Comments Hyperlipidemia Follow-up Encounter Details Date Type Department Care Team (Late st Contact Info) Description 04/18/2020 1:15 PM CDT Office Visit [place] [address] [facility] [address] [place] [address] Jacob Espitia MD [address] [place] [address] [address] 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 (Primary Dx) Social History Tobacco Use Types Packs/Day Years Used Date Smoking Tobacco: Former Smokeless Tobacco: Never Comments:Smoking History Pac ks/day: 0.25 Packs Alcohol Use Standard Drinks/Week Comments No 0 (1 standard drink = 0.6 oz pur e alcohol) PHQ-2 Answer Date Recorded PHQ-2 Score 0 07/21/2019 Comments No Sex and Gender Information Value Date Recorded Sex Assigned at Not on file Legal Sex Female 1:11 AM BARK SCALER Gender Identity Not on file Sexual Orientation Not on file documented as of this encounter Last Filed Vital Signs Vital Sign Reading Time Taken Comments Blood Pressure 110/80 04/18/2020 12:53 PM CDT Pulse 60 04/18/2020 12:53 PM CDT Temperature 36.7 ??C (98 ??F) 04/18/2020 12:53 PM CDT Respiratory Rate 18 04/18/2020 12:53 PM CDT Oxygen Saturation 97% 04/18/2020 12:53 PM CDT Inhaled Oxygen Concentration - - Weight 70.3 kg (155 lb) 04/18/2020 12:53 PM CDT Height 165.1 cm (5' 5 ) 04/18/2020 12:53 PM CDT Body Mass Index 25.79 04/18/2020 12:53 PM CDT documented in this encounter Progress Notes * Jacob Espitia MD - 04/18/2020 1:15 PM CDT Cardiology note Reason for Office Visit: Chief Complaint Patient presents with ??? Hyperlipidemia ??? Follow-up History of Present Illness: Gabbie Chris is a 64 y.o. female seen in follow up. She has rare brief palpitations. No angina. No syncope or no CHF. Past Medical History: Diagnosis Date ??? Dysphagia ??? GERD (gastroesophageal reflux disease) ??? HX OTHER MEDICAL 1977 ; Outcome: 7 lb(s) 2 oz Male ??? HX OTHER MEDICAL 1971 ; Outcome: 7 lb(s) 4 oz Female [...] Medication Sig Dispense Refill ??? amLODIPine (NORVASC) 2.5 mg tablet take 1 tablet by oral route every day 0 ??? amLODIPine (NORVASC) 5 mg tablet TAKE 1 TABLET DAILY 90 tablet 0 ??? aspirin 81 mg tablet take 1 tablet by oral route every day 0 0 ??? cholecalciferol (VITAMIN D-3) 2,000 unit tablet Take 1 tablet (2,000 Units total) by mouth daily. 30 tablet 5 ??? multivitamin tablet tablet take 1 tablet by oral route every day with food 0 0 No current facility-administered medications for this visit. Vital Signs: Vitals BP 110/80 Pulse 60 Temp 36.7 ??C (98 ??F) Resp 18 Ht 165.1 cm (5' 5 ) Wt 70.3 kg (155 lb) SpO2 97% BMI 25.79 kg/m?? Vitals: 04/18/20 1253 BP: 110/80 Pulse: 60 Resp: 18 Temp: 36.7 ??C (98 ??F) SpO2: 97% Wt Readings from Last 3 Encounters: 04/18/20 70.3 kg (155 lb) 09/22/19 74.8 kg (165 lb) 05/28/19 73.5 kg (162 lb) Physical Exam: Physical Exam Constitutional: She [...] LABALBU Lab Results Component Value Date CHOL 207 (H) 05/18/2019 TRIG 94 05/18/2019 HDL 57 05/18/2019 LDL 110 05/21/2015 No results found for: TSH, T3FREE, FREET4 Testing: No results found. No results found for this or any previous visit.] ECG: Sinus Rhythm, poor Rwave progression, probably normal ECG, unchanged from 12/19/18. 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 Recommend same meds and RTC 1 year. Thank you for the consult. We will be happy to follow in this patient's care. MORELIA Claire@1:20 PM Cc:Torito Gonzalez MD documented in this encounter Miscellaneous Notes * Assessment & Plan Note - Jacob Espitia MD - 04/18/2020 1:20 PM CDT Associated Problem(s): CAD (coronary artery disease) Doing well with no angina. Recommend same meds and RTC 1 year. 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 famotidine (PEPCID) 20 mg tablet Take 1 tablet (20 mg total) by mouth every other day added in this encounter Care Teams Fibre Optics Jointer Relationship Specialty Start Date End Date Torito Gonzalez MD [address] [place] [address] PCP - General 02/25/17 documented as of this encounter
--- OUTSIDE RECORDS SUMMARY | 2024-11-18 11:59 | XMS_ITS | Encounter Summary ---
Author Organization [facility] Care Team Providers Care Gaming Pit Boss Name Role Phone oTrito Gonzalez MD Primary Care Provider +1- [phone] Encounter Details Date Type Department Care Team (Latest Contact Info) Description 02/21/2020 Travel Social History Tobacco Use Types Packs/Day [...] on file Legal Sex Female 1:11 AM SOYBE[employer] COOK Gender Identity Not on file Sexual Orientation Not on file COVID-19 Exposure Response Date Recorded In the last month, have you been in contact with someone who was confirmed or suspected to have Coronavirus / COVID-19? No / Unsure 02/21/2020 10:47 AM CDT documented as of this encounter Plan of Treatment Not on file documented as of this encounter Visit Diagnoses Not on filedocumented in this encounter Care Teams Gaming Pit Boss Relationship Specialty Start Date End Date Torito Gonzalez MD [address] [place] [address] PCP - General 02/25/17 documented as of this encounter
--- OUTSIDE RECORDS SUMMARY | 2024-11-18 12:00 | XMS_ITS | Encounter Summary ---
Author Organization [facility] Address [address] [place] [address] Care Team Providers Care Pail Bailer Name Role Phone Torito Gonzalez MD Primary Care Provider [phone]- [phone] Reason for Referral * Diagnostic Imaging (Routine) - Closed Specialty Diagnoses / Procedures Referred By Turner ramirez Referred To Contact Diagnoses Screening for breast cancer Procedures SCREENING MAMMOGRAM BILATERAL W Alhaji Francis MD Phone: tel: fax: [address] [phone] Referral ID Status Reason Start Date Expiration Date Visits Re quested Visits Authorized [id number] Closed 05/22/2018 12/01/2019 1 1 Reason for Visit * Diagnostic Imaging (Routine) - Closed Specialty Diagnoses / Procedures Referred By Turner ramirez Referred To Contact Diagnoses Screening for breast cancer Procedures SCREENING MAMMOGRAM BILATERAL W Alhaji Francis MD Phone: tel: fax: [address] [phone] Referral ID Status Reason Start Date Expiration Date Visits Re quested Visits Authorized [id number] Closed 05/22/2018 12/01/2019 1 1 Encounter Details Date Type Department Care Team (Latest Contact Info) Description 06/26/2018 7:28 AM CDT - 06/26/2018 11:59 PM CDT Hospital Encounter [facility] [address] [place] [id number] Alhaji Payan MD [address] [place] [address] [address] [place] [address] Screening for breast cancer Discharge Disposition: Discharge to home or self care Social History Tobacco Use Types Packs/Day Years Used Date Smoking Tobacco: Former Smokeless Tobacco: Never Comments:Smoking History Pac ks/day: 0.25 Packs Alcohol Use Standard Drinks/Week Comments No 0 (1 standard drink = 0.6 oz pur e alcohol) Comments No Sex and Gender Information Value Date Recorded Sex Assigned at Not on file Legal Sex Female 1:11 AM RUSTIC FENCE BUILDER Gender Identity Not on file Sexual Orientation Not on file documented as of this encounter Last Filed Vital Signs Vital Sign Reading Time Taken Comments Blood Pressure - - Pulse - - Temperature - - Respiratory Rate - - Oxygen Saturation - - Inhaled Oxygen Concentration - - Weight 77.1 kg (170 lb) 06/26/2018 7:51 AM CDT Height 165.1 cm (5' 5 ) 06/26/2018 7:51 AM CDT Body Mass Index 28.29 06/26/2018 7:51 AM CDT documented in this encounter Medications at Time of Discharge aspirin 81 mg tablet take 1 tablet by oral route every day 0 0 05/10/2016 amLODIPine (NORVASC) 2.5 mg tablet take 1 tablet by oral route every day 0 05/10/2016 04/18/2020 cholecalciferol (VITAMIN D-3) 2,000 unit tablet Take 1 tablet (2,000 Units total) by mouth daily. 30 tablet 5 06/14/2017 08/13/2020 multivitamin tablet tablet take 1 tablet by oral route every day with food 0 0 05/10/2016 08/13/2020 naproxen sodium (ALEVE) 220 mg capsule 220 mg. 0 0 05/06/2015 05/28/2019 simvastatin (ZOCOR) 5 mg tablet take 1 tablet by oral route every day in the evening 0 02/16/2011 01/15/2019 documented as of this encounter Discharge Disposition Disposition Code Departure Means Destination Discharge to home or self care documented in this encounter Plan of Treatment Not on file documented as of this encounter Procedures Procedure Name Priority Date/Time Associated Diagnosis Comments SCREENING MAMMOGRAM BILATERAL W EARLINE Schedule Routine, Read Routine (OP Routine) 06/26/2018 7:56 AM CDT Screening for breast cancer documented in this encounter Results * SCREENING MAMMOGRAM BILATERAL W EARLINE (06/26/2018 7:56 AM CDT) Anatomical Region Laterality Modality Breast Bilateral Mammography 06/26/2018 7:57 AM CDT Impressions 06/26/2018 7:58 AM CDT BIRADS Category 2: Benign finding(s). Digital technology was employed plus computer-aided detection software (R2) was utilized in interpretation of these images. This facility utilizes a reminder system to notify patients of yearly mammograms. Electronically signed by: Sj Pierre M.D. Narrative 06/26/2018 7:58 AM CDT EXAMINATION: Digital screening mammogram with tomosynthesis. HISTORY: Breast cancer screening PRIOR: 06/13/2017 and 05/24/2016 DENSITY: Heterogeneously dense which could obscure small masses FINDINGS: Little change is noted. ??No new dominant mass, architectural distortion, nipple retraction, skin thickening, or suspicious calcifications are seen. Scattered benign bilateral breast calcifications are again seen. ??A 7 mm nodular density in the left upper inner breast is stable. Alhaji Payan MD IMG MAMMO PROCEDURES Final Result documented in this encounter Visit Diagnoses Diagnosis Screening for breast cancer Breast screening, unspecified documented in this encounter Care Teams Pail Bailer Relationship Specialty Start Date End Date Torito Gonzalez MD [address] [place] [address] PCP - General 02/25/17 documented as of this encounter
--- OUTSIDE RECORDS SUMMARY | 2024-11-18 12:00 | XMS_ITS | Encounter Summary ---
Author Organization [facility] Address [address] [address] Care Team Providers Care Grout Machine Tender Name Role Phone Torito Gonzalez MD Primary Care Provider [phone]- [phone] Reason for Visit * Reason Onset Date Comments orders 06/10/2017 Encounter Details Date Type Department Care Team (Late st Contact Info) Description 06/10/2017 Telephone [email or web address] [address] [place] [address] Alize Dean MA orders Social History Tobacco Use Types Packs/Day Years Used Date Smoking Tobacco: Former Smokeless Tobacco: Never Comments:Smoking History Pac ks/day: 0.25 Packs Alcohol Use Standard Drinks/Week Comments No 0 (1 standard drink = 0.6 oz pur e alcohol) Comments No Sex and Gender Information Value Date Recorded Sex Assigned at Not on file Legal Sex Female 1:11 AM 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 Faxed to [phone] documented in this encounter Plan of Treatment Not on file documented as of this encounter Visit Diagnoses Diagnosis Osteoporosis screening- Primary Special screening for osteoporosis documented in this encounter Care Teams Grout Machine Tender Relationship Specialty Start Date End Date Torito Gonzalez MD [address] [place] [address] PCP - General 02/25/17 documented as of this encounter
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
--- OUTSIDE RECORDS SUMMARY | 2024-11-18 12:00 | XMS_ITS | Encounter Summary ---
Author Organization [facility] Healthcare Address [address] [place] [address] Care Team Providers Care Virtual Classroom Manager Name Role Phone Torito Gonzalez MD Primary Care Provider +1- [phone] Encounter Details Date Type Department Care Team (Late st Contact Info) Description 01/15/2019 11:45 AM COMPUTER ENGINEERING TECHNICIAN - 01/15/2019 12:15 PM COMPUTER ENGINEERING TECHNICIAN Surgery [facility] [address] [place] [address] Jaciel Mott MD [address] [place] [address] [address] [place] [address] ESOPHAGOGASTRODUODENOSCOPY Surgery Details Date/Time Status Location OR Service Patient Class Case Class Case Type Trauma Case? 01/15/2019 11:45 AM Posted [facility] GI 02 Gastroenterology Outpatient Elective Panel 1 Procedure LRB Anes Op Region Wound Class Comments ESOPHAGOGASTRODUODENOSCOPY N/A Monitor Anesthesia Care Surgeon Surgeon Role Service Panel Jaciel Mott [...] on file Legal Sex Female 1:11 AM COMPUTER ENGINEERING TECHNICIAN Gender Identity Not on file Sexual Orientation Not on file documented as of this encounter Last Filed Vital Signs Vital Sign Reading Time Taken Comments Blood Pressure 113/78 01/15/2019 11:50 AM COMPUTER ENGINEERING TECHNICIAN Pulse 61 01/15/2019 11:50 AM COMPUTER ENGINEERING TECHNICIAN Temperature 36.3 ??C (97.4 ??F) 01/15/2019 11:[address] Respiratory Rate 18 01/15/2019 11:50 AM COMPUTER ENGINEERING TECHNICIAN Oxygen Saturation 98% 01/15/2019 11:50 AM COMPUTER ENGINEERING TECHNICIAN Inhaled Oxygen Concentration - - Weight 74.8 kg (165 lb) 01/15/2019 10:41 AM COMPUTER ENGINEERING TECHNICIAN Height 165.1 cm (5' 5 ) 01/15/2019 10:41 AM COMPUTER ENGINEERING TECHNICIAN Body Mass Index 27.46 01/15/2019 10:41 AM COMPUTER ENGINEERING TECHNICIAN documented in this encounter Medications at Time [...] H&P Notes * Jaciel Mott MD - 01/15/2019 11:03 AM CST Plan of Care : Based on the above findings, I consider Gabbie Chris to be an acceptable risk for : Procedure(s): ESOPHAGOGASTRODUODENOSCOPY UTER ENGINEERING TECHNICIAN Source Note - Andres Chilel MD - 01/15/2019 10:33 AM COMPUTER ENGINEERING TECHNICIAN Anesthesia Evaluation Gabbie Chris is a 63 y.o. female Procedure(s): ESOPHAGOGASTRODUODENOSCOPY HISTORY Past Medical History Information obtained from: patient and chart. Neurological Neuro/Psych system: negative Cardiovascular + Hypertension + Hyperlipidemia Respiratory Respiratory system: negative Hepatic / Heme Hepatic/Heme system: negative Gastrointestinal + GERD - does not use medication. Renal / Renal/ system: negative Musculoskeletal/Pain + Osteoarthritis Endocrine / Other Endocrine/Other system: negative Review of Systems + heartburn + dysphagia Patient Active Problem List Diagnosis ??? Hypercholesterolemia ??? Keratosis, senilis ??? Benign neoplasm of soft tissues ??? Dysphagia Past Medical History: Diagnosis Date ??? Dysphagia [...] W/ BILATERAL SALPINGOOPHORECTOMY 1995 [place]/BSO OB History Para Term AB Living 2 2 2 2 SAB TAB Ectopic Multiple Live Births 2 No Known Allergies HOME MEDICATIONS : amLODIPine (NORVASC) 2.5 mg tablet aspirin 81 mg tablet cholecalciferol (VITAMIN D-3) 2,000 unit tablet multivitamin tablet tablet naproxen sodium (ALEVE) 220 mg capsule simvastatin (ZOCOR) 5 mg tablet Current Facility-Administered Medications: ??? [MAR Hold] ondansetron (ZOFRAN) injection 4 mg, 4 mg, intravenous, Q30 Min PRN ??? [MAR Hold] sodium chloride 0.9% flush 0.5-20 mL, 0.5-20 mL, intra-catheter, Q8H SAIMA ??? [MAR Hold] sodium chloride 0.9% flush 0.5-20 mL, 0.5-20 mL, intra-catheter, PRN ??? sodium chloride 0.9% infusion, 30 mL/hr, intravenous, Continuous ??? sodium chloride 0.9% infusion, 125 mL/hr, intravenous, Continuous Social History Smoking Status ??? Current Some Day Smoker Smokeless Tobacco ??? Never Used Comment: Smoking History Packs/day: 0.25 Packs Alcohol Use No Drug Use No Family History Problem Relation Age of Onset ??? Coronary artery disease Mother Coronary artery disease; ??? Hypertension Mother Hypertension; ??? Congenital heart disease Brother Congenital heart disease; ??? Diabetes Brother Diabetes mellitus; ??? Hypertension Brother Hypertension; PAT Physical Exam Vitals: 01/15/19 1041 BP: 139/77 Pulse: 56 Resp: 18 Temp: (!) 35.8 ??C (96.5 ??F) SpO2: 98% PT: No results found for requested labs [...] Medical history, medications, and allergies reviewed. Attestation: I endorse the findings of the anesthesia pre-evaluation assessment dated: 01/15/2019. Airway Exam: Mallampati: III Cervical ROM: FROM TM distance: >4 Jaw ROM: full Cardiovascular Exam: Rate: regular Rhythm: regular Pulmonary Exam: LCTA, bilat Dental Exam: Missing Current state: Patient's current state is cooperative and interactive. Anesthesia Plan ASA 2 My patient is approved for the Anesthesia Controlled Medication protocol when under care of a MANAGER ARCHITECTURE Planned anesthesia: General/TIVA Induction: Induction: intravenous. Postoperative Plan: No plan for postoperative opioid use. No postoperative mechanical ventilation intended. Patient's planned disposition post procedure is Outpatient. Informed Consent: Discussed plan with attending and MANAGER ARCHITECTURE. Anesthesia plan and risks discussed with patient. Consent and Attending signature: I and/or my designee have discussed the anesthesia plan, benefits, possible alternatives, parental presence at time of induction (if indicated), and clinically relevant risks that may include dental injury, unintentional awareness, and/or other complications. The patient and/or parent/legal guardian understand, and agree to proceed. All questions answered. UTER ENGINEERING TECHNICIAN documented in this encounter Procedure Notes * Jaciel Mott MD - 01/15/2019 10:28 AM CSTAssociated Order(s): EGD [facility] Patient Name: Gabbie Chris Procedure Date: 01/15/2019 10:28 AM Date of : 1955 Admit Type: Outpatient Age: 63 Gender: Female Attending MD: Jaciel Mott M.D. Room: [facility] ENDOSCOPY ROOM 2 Note Status: Finalized Procedure: Upper GI endoscopy Indications: Dysphagia, Heartburn Referring MD: Torito Gonzalez M.D. Providers: Jaciel Mott M.D. Impression: - LA Grade A reflux esophagitis. - Gastritis. - Congested duodenal mucosa. - Duodenal erosions without bleeding. - No specimens collected. Recommendation: - Discharge patient to home. - Resume previous diet. - Continue present medications. - Return to primary care physician as previously scheduled. Medicines: Propofol per Anesthesia Complications: No immediate complications. Estimated Blood Loss: Estimated blood loss: none. Procedure: The benefits, risks, and alternatives to the procedure and sedation were discussed and informed consent was obtained. The scope was passed under direct vision. The Endoscope GIF-H190 [id number] was introduced through the mouth, and advanced to the second part of duodenum. The upper GI endoscopy was accomplished without difficulty. The patient tolerated the procedure well. Findings: LA Grade A (one or more mucosal breaks less than 5 mm, not extending between tops of 2 mucosal folds) esophagitis with no bleeding was found 38 cm from the incisors. Diffuse mild inflammation characterized by congestion (edema), erythema and granularity was found in the entire examined stomach. Diffuse severely congested mucosa without active bleeding and with no stigmata of bleeding was found in the duodenal bulb. Multiple erosions without bleeding were found in the duodenal bulb. Electronically signed by Jaciel Mott M.D. Jaciel Mott M.D. 01/15/2019 11:17:46 AM Number of Addenda: 0 Note Initiated On: 01/15/2019 10:28 AM Procedure Code(s): --- Professional --- 76750, Esophagogastroduodenoscopy, flexible, transoral; diagnostic, including collection of specimen(s) by brushing or washing, when performed (separate procedure) Diagnosis Code(s): --- Professional --- R12, Heartburn R13.10, Dysphagia, unspecified K26.9, Duodenal ulcer, unspecified as acute or chronic, without hemorrhage or perforation K31.89, Other diseases of stomach and duodenum K29.70, Gastritis, unspecified, without bleeding K21.0, Gastro-esophageal reflux disease with esophagitis CPT copyright 2017 [employer]. All rights reserved. The codes documented in this report are preliminary and upon certified medical coder review may be revised to meet current compliance requirements. Recognized by the [employer] [employer] for promoting quality in endoscopy UTER ENGINEERING TECHNICIAN documented in this encounter Miscellaneous Notes * Perioperative Nursing Note - Meli Cooper RN - 01/15/2019 12:15 PM COMPUTER ENGINEERING TECHNICIAN 1130 here to speak w/pt. Instructed pt to avoid NSAIDs and to take her pantoprazole or ppi she has at home daily. Pt reports only took prn. UTER ENGINEERING TECHNICIAN documented in this encounter Plan of Treatment Not on file documented as of this encounter Procedures Procedure Name Priority Date/Time Associated Diagnosis Comments ESOPHAGOGASTRODUODENOSCOPY 01/15 11:01 AM COMPUTER ENGINEERING TECHNICIAN Dysphagia, unspecified type EGD 01/15/2019 10:28 AM COMPUTER ENGINEERING TECHNICIAN documented in this encounter Results * EGD (01/15/2019 10:28 AM COMPUTER ENGINEERING TECHNICIAN) Anatomical Region Laterality Modality Other Narrative Procedure Note Jaciel Mott MD - 01/15/2019 10:28 AM CST [facility] Patient Name: Gabbie Chris Procedure Date: 01/15/2019 10:28 AM Date of : 1955 Admit Type: Outpatient Age: 63 Gender: Female Attending MD: Jaciel Mott M.D. Room: [facility] END[facility]COPY ROOM 2 Note Status: Finalized Procedure: Upper GI endoscopy Indications: Dysphagia, Heartburn Referring MD: Torito Gonzalez M.D. Providers: Jaciel Mott M.D. Impression: - LA Grade A reflux esophagitis. - Gastritis. - Congested duodenal mucosa. - Duodenal erosions without bleeding. - No specimens collected. Recommendation: - Discharge patient to home. - Resume previous diet. - Continue present medications. - Return to primary care physician as previously scheduled. Medicines: Propofol per Anesthesia Complications: No immediate complications. Estimated Blood Loss: Estimated blood loss: none. Procedure: The benefits, risks, and alternatives to theprocedure and sedation were discussed and informed consent was obtained. The scope was passed under direct vision.The Endoscope GIF-H190 [id number] was introduced throughthe mouth, and advanced to the second part of duodenum.The upper GI endoscopy was accomplished withoutdifficulty. The patient tolerated the procedure well. Findings: LA Grade A (one or more mucosal breaks less than 5 mm, not extending between tops of 2 mucosal folds) esophagitis with no bleeding wasfound 38 cm from the incisors. Diffuse mild inflammation characterized by congestion (edema),erythema and granularity was found in the entire examined stomach. Diffuse severely congested mucosa without active bleeding and with no stigmata of bleeding was found in the duodenal bulb. Multiple erosions without bleeding were found in the duodenal bulb. Electronically signed by Jaciel Mott M.D. Jaciel Mott M.D. 01/15/2019 11:17:46 AM Number of Addenda: 0 Note Initiated On: 01/15/2019 10:28 AM Procedure Code(s): --- Professional --- 25115, Esophagogastroduodenoscopy, flexible, transoral; diagnostic, including collection of specimen(s) by brushing or washing, when performed (separate procedure) Diagnosis Code(s): --- Professional --- R12, Heartburn R13.10, Dysphagia, unspecified K26.9, Duodenal ulcer, unspecified as acute or chronic, without hemorrhage or perforation K31.89, Other diseases of stomach and duodenum K29.70, Gastritis, unspecified, without bleeding K21.0, Gastro-esophageal reflux disease with esophagitis CPT copyright 2017 [employer]. All rights reserved. The codes documented in this report are preliminary and upon certified medical coder reviewmay be revised to meet current compliance requirements. Recognized by the [employer] for promoting quality in endoscopy Jaciel Mott MD ENDOSCOPY PROCEDURES Final Re sult documented in this encounter Visit Diagnoses Diagnosis Dysphagia- Primary Dysphagia, unspecified type documented in this encounter Admitting Diagnoses Diagnosis Dysphagia documented in this encounter Administered Medications Inactive Administered Medications - up to 3 most recent administrations Medication Order MAR Action Action Date Dose Rate Site ondansetron (ZOFRAN) injection 4 mg 4 mg, intravenous, Administer over 2 Minutes, Every 30 min PRN, nausea, vomiting, Starting on Tue01/15/19 at 1037, For 2 doses, Recovery (GI), Indications: Nausea and VomitingIndications:Nausea and Vomiting sodium chloride 0.9% flush 0.5-20 mL 0.5-20 mL, intra-catheter, Every 8 hours scheduled, First dose on Tue01/15/19 at 1400, Pre-Procedure (GI), Flush volume based on line type and size. sodium chloride 0.9% flush 0.5-20 mL 0.5-20 mL, intra-catheter, As needed, line care, Starting on Tue01/15/19 at 1037, Pre-Procedure (GI), Flush volume based on line type and size. Flush before and after each use. sodium chloride 0.9% infusion 30 mL/hr, intravenous, Continuous, Starting on Tue01/15/19 at 1115, Pre-Procedure (GI) Rate/Dose Verify 01/15/2019 11:05 AM COMPUTER ENGINEERING TECHNICIAN New Bag 01/15/2019 11:03 AM COMPUTER ENGINEERING TECHNICIAN 30 mL/hr 30 mL/hr sodium chloride 0.9% infusion 125 mL/hr, intravenous, Continuous, Starting on Tue01/15/19 at 1115, Recovery (GI) documented in this encounter Discontinued Medications Medication Sig Discontinue Reason Start Date End Da te simvastatin (ZOCOR) 5 mg tablet take 1 tablet by oral route every day in the evening Therapy completed 02/16/2011 01/15/2019 documented as of this encounter Active and Recently Administered Medications Times are shown in COMPUTER ENGINEERING TECHNICIAN. Scheduled Medication Order 01/13/2019 01/14/2019 01/15/2019 sodium chloride 0.9% flush 0.5-20 mL 0.5-20 mL, intra-catheter, Every 8 hours scheduled, First dose on Tue01/15/19 at 1400, Pre-Procedure (GI), Flush volume based on line type and size. 1038 (MAR Hold - Pro vider: Automatic Transfer Provider - Reason: Patient not available)1619 ([facility] Unhold - Provider: User Epic) Continuous Medication Order 01/13/2019 01/14/2019 01/15/2019 sodium chloride 0.9% infusion 30 mL/hr, intravenous, Continuous, Starting on Tue01/15/19 at 1115, Pre-Procedure (GI) 1103 (New Bag - Prov ider: Meli Cooper RN)1105 (Rate/Dose Verify - Provider: Karla Henley CRNA)1115 (Anesthesia Volume Adjustment - Provider: Karla Henley CRNA)1135 (Stopped - Provider: Meli Cooper RN) sodium chloride 0.9% infusion 125 mL/hr, intravenous, Continuous, Starting on Tue01/15/19 at 1115, Recovery (GI) 1115 (Due) PRN Medication Order 01/13/2019 01/14/2019 01/15/2019 ondansetron (ZOFRAN) injection 4 mg 4 mg, intravenous, Administer over 2 Minutes, Every 30 min PRN, nausea, vomiting, Starting on Tue01/15/19 at 1037, For 2 doses, Recovery (GI), Indications: Nausea and Vomiting 1038 (JAN Hold - Pro vider: Automatic Transfer Provider - Reason: Patient not available)1619 ([facility] Unhold - Provider: User Epic) sodium chloride 0.9% flush 0.5-20 mL 0.5-20 mL, intra-catheter, As needed, line care, Starting on Tue01/15/19 at 1037, Pre-Procedure (GI), Flush volume based on line type and size. Flush before and after each use. 1038 (JAN Hold - Pro vider: Automatic Transfer Provider - Reason: Patient not available)1619 ([facility] Unhold - Provider: User Epic) documented in this encounter Orders Medications Ordered That Krunal ht Not Have Been Administered Count Last Ordered Date First Ordered Date ondansetron (ZOFRAN) injection 4 mg 1 01/15 sodium chloride 0.9% flush 0.5-20 mL 2 12/29 sodium chloride 0.9% infusion 1 01/15/2019 documented in this encounter Care Teams Virtual Classroom Manager Relationship Specialty Start Date End Date Torito Gonzalez MD [address] [place] [address] PCP - General 02/25/17 documented as of this encounter
--- OUTSIDE RECORDS SUMMARY | 2024-11-18 12:00 | XMS_ITS | Encounter Summary ---
Author Organization [facility] Healthcare Address [address] [place] [address] Care Team Providers Care Sales Representative Printing Name Role Phone Torito Gonzalez MD Primary Care Provider +1- [phone] Encounter Details Date Type Department Care Team (Late st Contact Info) Description 12/11/2018 7:35 AM LAW TUTOR [address] [phone] Torito Gonzalez MD [address] [place] [address] Discharge Disposition: Discharge to home or self [...] on file Legal Sex Female 1:11 AM LAW TUTOR Gender Identity Not on file Sexual Orientation Not on file documented as of this encounter Discharge Disposition Disposition Code Departure Means Destination Discharge to home or self care documented in this encounter Plan of Treatment Not on file documented as of this encounter Procedures Procedure Name Priority Date/Time Associated Diagnosis Comments EGFR Routine 12/11/2018 6:20 AM LAW TUTOR LIPID PANEL Routine 12/11/2018 6:20 AM LAW TUTOR COMPREHENSIVE METABOLIC PANEL Routine 12/11/2018 6:20 AM LAW TUTOR documented in this encounter Results * eGFR (12/11/2018 6:20 AM LAW TUTOR) eGFR 89 mL/min/1.7 3 m2 [facility] ([facility]) Comment: Interpretive Data Reference Interval Normal ?>/= 90 mL/min/1.73m2 Mildly decreased* ? 60 - 89 mL/min/1.73m2 Mildly to moderately decreased ?45 - 59 mL/min/1.73m2 Moderately to severely decreased ??30 - 44 mL/min/1.73m2 Severely decreased ?15 - 29 mL/min/1.73m2 Kidney Failure ?< 15 ??mL/min/1.73m2 *Relative to young adult level If -[place] multiply value by 1.16. Estimated glomerular filtration rate is determined by [...] 70. Current interpretive data was last reviewed 2016. Blood specimen (specimen) 12/11/2018 6:20 AM LAW TUTOR 12/11/2018 7:44 AM LAW TUTOR Narrative [facility]) - 12/11/2018 8:40 AM LAW TUTOR us Torito Gonzalez MD LAB BLOOD ORDERABLES Final Result [facility] ([facility]) [address] [facility] [place] [address] * Lipid panel (12/11/2018 6:20 AM LAW TUTOR) Cholesterol 154 30 - 199 mg/dL [facility] ([facility]) Comment: Interpretive Data [...] Data was last revised on 2018. Triglycerides 119 <=149 mg/dL [facility]) Comment: Interpretive Data [...] Data was last revised on 2018. HDL 42 >=40 mg/dL [facility]) Comment: Interpretive Data [...] was last revised on 2018. LDL, calculated 88 <=129 mg/dL [facility] ([facility]) Comment: Interpretive [...] was last revised on 2018. Non-HDL Cholesterol 112 mg/dL [facility] ([facility]) Comment: Interpretive Data [...] was last revised on 2018. Chol/HDL ratio 4 [facility] ([facility]) Blood specimen (specimen) 12/11/2018 6:20 AM LAW TUTOR 12/11/2018 7:44 AM LAW TUTOR Narrative [facility] ([facility]) - 12/11/2018 8:40 AM LAW TUTOR us Torito Gonzalez MD LAB BLOOD ORDERABLES Final Result [facility] ([facility]) 1 [facility] [place] [address] * (ABNORMAL) Comprehensive metabolic panel (12/11/2018 6:20 AM LAW TUTOR) Sodium 140 135 - 145 mmol/L [facility] ([facility]) Potassium, pl 4.0 3.3 - 4.9 mmol/L [facility] ([facility]) Chloride 105 97 - 110 mmol/L [facility] ([facility]) CO2 25 22 - 32 mmol/L [facility]) Anion gap 11 2 - 15 mmol/L [facility]) BUN 15 8 - 25 mg/dL [facility] Creatinine 0.71 0.60 - 1.10 mg/dL [facility] Comment:Icteric sample, test results may be affected. Glucose 91 70 - 199 mg/dL [facility] Comment: Interpretive Data Fasting glucose [...] interpretive data was last revised 2017. Calcium 9.6 8.5 - 10.3 mg/dL [facility] ([facility]) Bilirubin, total 2.1(H) 0.1 - 1.2 mg/dL [facility] ([facility]) Protein, pl 7.8 6.5 - 8.5 g/dL [facility] ([facility]) Albumin 4.0 3.5 - 5.0 g/dL [facility] ([facility]) Alk phos 264(H) 40 - 130 Units/L [facility] ([facility]) ALT 696(H) 7 - 45 Units/L [facility]) AST 486(H) 10 - 45 Units/L [facility]) Blood specimen (specimen) 12/11/2018 6:20 AM LAW TUTOR 12/11/2018 7:44 AM LAW TUTOR Narrative [facility] ([facility] - 12/11/2018 8:40 AM LAW TUTOR us Torito Gonzalez MD LAB BLOOD ORDERABLES Final Result [facility] [address] [facility] [place] [address] documented in this encounter Visit Diagnoses Not on filedocumented in this encounter Care Teams Sales Representative Printing Relationship Specialty Start Date End Date Torito Gonzalez MD [address] [place] [address] PCP - General 02/25/17 documented as of this encounter
--- OUTSIDE RECORDS SUMMARY | 2024-11-18 12:00 | XMS_ITS | Encounter Summary ---
Author Organization [facility] Address [address] [place] [address] Care Team Providers Care Lawn Mower Operator Name Role Phone Torito Gonzalez MD Primary Care Provider [phone]- [phone] Reason for Visit * Reason Onset Date Comments appointment 04/25/2019 Encounter Details Date Type Department Care Team (Late st Contact Info) Description 04/25/2019 Telephone [facility] Orthopedics and Sports Medicine [address] [place] [phone] Yehuda Ching MD [address] [place] [address] [address]ED[address] [address] appointment Social History Tobacco Use Types Packs/Day Years Used Date Smoking Tobacco: Some Days Smokeless Tobacco: Never Comments:Smoking History Pac ks/day: 0.25 Packs Alcohol Use Standard Drinks/Week Comments No 0 (1 standard drink = 0.6 oz pur e alcohol) Comments No Sex and Gender Information Value Date Recorded Sex Assigned at Not on file Legal Sex Female 1:11 AM ACTING SECTION CHIEF Gender Identity Not on file Sexual Orientation Not on file documented as of this encounter Miscellaneous Notes * Telephone Encounter - Yolanda Kline - 04/25/2019 2:53 PM CDT Called and spoke with Gabbie on 04-25-19. Followed up with her after her ER visit on 04-23-19 for left arm pain. Per Dr. Ching to schedule her with Dr. Melton for follow up. Patient states at thistime she does not want to follow up. She wants to see if it gets better on its own. If she feels itis not improving or getting worse she will call us and schedule. documented in this encounter Plan of Treatment Not on file documented as of this encounter Visit Diagnoses Not on filedocumented in this encounter Care Teams Lawn Mower Operator Relationship Specialty Start Date End Date Torito Gonzalez MD [address] [place] [address] PCP - General 02/25/17 documented as of this encounter
--- OUTSIDE RECORDS SUMMARY | 2024-11-18 12:00 | XMS_ITS | Encounter Summary ---
Author Organization [facility] Address [address] [place] [address] Care Team Providers Care Ceramic Sprayer Name Role Phone Torito Gonzalez MD Primary Care Provider +1- [phone] Reason for Visit * Reason Comments Annual Exam Encounter Details Date Type Department Care Team ([facility] st Contact Info) Description 05/28/2019 10:00 AM CDT Office Visit [facility] [address] [place] [address] Alhaji Payan MD [address] [place] [address] [address] [place] [address] Well woman exam (Primary Dx); Colon cancer screening; Osteopenia, unspecified location; Breast cancer screening by mammogram Social History Tobacco Use Types Packs/Day Years Used Date Smoking Tobacco: Former Smokeless Tobacco: Never Comments:Smoking History Pac ks/day: 0.25 Packs Alcohol Use Standard Drinks/Week Comments No 0 (1 standard drink = 0.6 oz pur e alcohol) Comments No Sex and Gender Information Value Date Recorded Sex Assigned at Not on file Legal Sex Female 1:11 AM 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 Gender Identity Not on file Sexual Orientation Not on file documented as of this encounter Last Filed Vital Signs Vital Sign Reading Time Taken Comments Blood Pressure 108/72 05/28/2019 10:03 AM CDT Pulse - - Temperature - - Respiratory Rate - - Oxygen Saturation - - Inhaled Oxygen Concentration - - Weight 73.5 kg (162 lb) 05/28/2019 10:03 AM CDT Height 165.1 cm (5' 5 ) 05/28/2019 10:03 AM CDT Body Mass Index 26.96 05/28/2019 10:03 AM CDT documented in this encounter Progress Notes * Alhaji Payan MD - 05/28/2019 10:00 AM CDT Well Woman Exam Subjective: Pateint presents for: Annual Exam Gabbie Chris is a 63 y.o. year old female who presents for a well woman exam. She denies c/os. No pelvic pain or bleeding. Contraception:Menopause. No LMP recorded. Patient has had [...] WESLEY/BSO Current Outpatient Medications: ??? amLODIPine (NORVASC) 2.5 mg tablet, take 1 tablet by oral route every day, Disp: , Rfl: 0 ??? aspirin 81 mg tablet, take 1 tablet by oral route every day, Disp: 0, Rfl: 0 ??? cholecalciferol (VITAMIN D-3) 2,000 unit tablet, Take 1 tablet (2,000 Units total) by mouth daily., Disp: 30 tablet, Rfl: 5 ??? multivitamin tablet tablet, take 1 tablet by oral route every day with food, Disp: 0, Rfl: 0 No Known Allergies Family History Problem Relation [...] education level: None Occupational History ??? None Social Needs ??? Financial resource strain: None ??? Food insecurity: Worry: None Inability: None ??? Transportation needs: Medical: None Non-medical: None Tobacco Use ??? Smoking status: Former Smoker ??? Smokeless tobacco: Never Used ??? Tobacco comment: Smoking History Packs/day: 0.25 Packs Substance and Sexual Activity ??? Alcohol use: No ??? Drug use: No ??? Sexual activity: Not Currently Lifestyle ??? Physical activity: Days per week: None Minutes per session: None ??? Stress: None Relationships ??? Social connections: Talks on phone: None Gets together: None Attends latter day service: None Active member of club or organization: None Attends meetings of clubs or organizations: None Relationship status: None ??? Intimate partner violence: Fear of current or ex partner: None Emotionally abused: None Physically abused: None Forced sexual activity: None Other Topics Concern ??? None Social History Narrative ??? None Review of Systems Constitutional: Negative for chills, [...] The patient is not nervous/anxious. Objective: BP 108/72 (BP Location: Right arm, Patient Position: Sitting) Ht 165.1 cm (5' 5 ) Wt 162 lb (73.5 kg) BMI 26.96 kg/m?? Physical Exam Constitutional: She is oriented to person, place, and time. She appears well- developed and well-nourished. HENT: Head: Normocephalic. Eyes: Conjunctivae are normal. Neck: Neck supple. No thyromegaly present. Cardiovascular: Normal rate and regular rhythm. Pulmonary/Chest: Effort normal and breath sounds normal. Right breast exhibits no mass, no nipple discharge, no skin change and no tenderness. Left breast exhibits no mass, no nipple discharge, no skin change and no tenderness. Abdominal: Soft. She exhibits no mass. There is no tenderness. There is no rebound. No hernia. Genitourinary: Rectum normal and vagina normal. Rectal exam shows guaiac negative stool. There is no lesion on the right labia. There is no lesion on the left labia. Right adnexum displays no mass and no tenderness. Left adnexum displays no mass and no tenderness. No vaginal discharge found. Genitourinary Comments: Uterus surgically absent. Musculoskeletal: She exhibits no edema or tenderness. Lymphadenopathy: She has no cervical adenopathy. She has no axillary adenopathy. Right: No inguinal and no supraclavicular adenopathy present. Left: No inguinal and no supraclavicular adenopathy present. Neurological: She is alert and oriented to person, place, and time. Skin: Skin is warm and dry. Psychiatric: She has a normal mood and affect. Assessment and Plan: Normal exam. Diagnoses and all orders for this visit: Well woman exam (Primary) Colon cancer screening Comments: Hemasure is negative. Colonoscopy was negative 2016. Orders: - POCT fecal occult blood Osteopenia, unspecified location Comments: Recheck DEXA. Orders: - Dexa Axial Skeleton Bone Density 1 Or 2 Site; Future Breast cancer screening by mammogram Comments: script given. Orders: - SCREENING MAMMOGRAM BILATERAL W EARLINE; Future Recommended screenings and preventive care discussed: Breast cancer: Breast Self Exam encouraged. Pap deferred. Calcium and vitamin D BID recommended and cholesterol followed by PCP. Low fat, low carbohydrate diet and exercise encouraged. Return in about 1 year (around 05/28/2020) for annual exam. Alhaji Payan MD 05/28/2019 documented in this encounter Plan of Treatment Not on file documented as of this encounter Procedures Procedure Name Priority Date/Time Associated Diagnosis Comments POCT FECAL OCCULT BLOOD, NOT FOR NEOPLASM SCREENING Routine 05/28/2019 10:57 AM CDT Colon cancer screening documented in this encounter Results * POCT fecal occult blood (05/28/2019 10:57 AM CDT) Fecal Globin, POC Negative Comment:Lot # [id number] Rectum 05/28/2019 10:5 7 AM CDT Alhaji Payan MD POINT OF CARE TEST ORDERAB LES Final Result documented in this encounter Visit Diagnoses Diagnosis Well woman exam- Primary Routine general medical examination at a health care facility Colon cancer screening Special screening for malignant neoplasms, colon Osteopenia, unspecified location Breast cancer screening by mammogram documented in this encounter Discontinued Medications Medication Sig Discontinue Reason Start Date End Da te naproxen sodium (ALEVE) 220 mg capsule 220 mg. Therapy completed 05/06/2015 05/28/2019 documented as of this encounter Care Teams Ceramic Sprayer Relationship Specialty Start Date End Date Torito Gonzalez MD [address] [place] [address] PCP - General 02/25/17 documented as of this encounter
--- OUTSIDE RECORDS SUMMARY | 2024-11-18 12:00 | XMS_ITS | Encounter Summary ---
Author Organization [facility] Address [address] [place] [address] Care Team Providers Care Plane Runner Name Role Phone Torito Gonzalez MD Primary Care Provider +1- [phone] Encounter Details Date Type Department Care Team (Latest Contact Info) Description 01/15/2019 10:26 AM FIREPERSON - 01/15/2019 12:05 PM FIREPERSON Hospital Encounter [facility] [address] [place] [address] Jaciel Mott MD [address] [place] [address] [address] [place] [address] Discharge Disposition: Discharge to home or self [...] on file Legal Sex Female 1:11 AM FIREPERSON Gender Identity Not on file Sexual Orientation Not on file documented as of this encounter Last Filed Vital Signs Vital Sign Reading Time Taken Comments Blood Pressure 113/78 01/15/2019 11:50 AM FIREPERSON Pulse 61 01/15/2019 11:50 AM FIREPERSON Temperature 36.3 ??C (97.4 ??F) 01/15/2019 11:[address] Respiratory Rate 18 01/15/2019 11:50 AM FIREPERSON Oxygen Saturation 98% 01/15/2019 11:50 AM FIREPERSON Inhaled Oxygen Concentration - - Weight 74.8 kg (165 lb) 01/15/2019 10:41 AM FIREPERSON Height 165.1 cm (5' 5 ) 01/15/2019 10:41 AM FIREPERSON Body Mass Index 27.46 01/15/2019 10:41 AM FIREPERSON documented in this encounter Medications at Time [...] an acceptable risk for : Procedure(s): ESOPHAGOGASTRODUODENOSCOPY PERSON Source Note - Andres Chilel MD - 01/15/2019 10:33 AM FIREPERSON Anesthesia Evaluation Gabbie Chris is a 63 [...] Medication protocol when under care of a DEMURRAGE MAN Planned anesthesia: General/TIVA Induction: Induction: intravenous. Postoperative Plan: No plan for postoperative opioid use. No postoperative mechanical ventilation intended. Patient's planned disposition post procedure is Outpatient. Informed Consent: Discussed plan with attending and DEMURRAGE MAN. Anesthesia plan and risks discussed with patient. Consent and Attending signature: I and/or my designee have discussed the anesthesia plan, benefits, possible alternatives, parental presence at time of induction (if indicated), and clinically relevant risks that may include dental injury, unintentional awareness, and/or other complications. The patient and/or parent/legal guardian understand, and agree to proceed. All questions answered. PERSON documented in this encounter Procedure Notes * Jaciel Mott MD - 01/15/2019 10:28 AM CSTAssociated Order(s): EGD [facility] Patient Name: Gabbie Chris Procedure [...] passed under direct vision. The Endoscope GIF-H190 [id number] was introduced through the mouth, and advanced [...] 10:28 AM Procedure Code(s): --- Professional --- 62608, Esophagogastroduodenoscopy, flexible, transoral; diagnostic, including collection of specimen(s) by brushing or washing, when performed (separate procedure) Diagnosis Code(s): --- Professional --- R12, Heartburn R13.10, Dysphagia, unspecified K26.9, Duodenal ulcer, unspecified as acute or chronic, without hemorrhage or perforation K31.89, Other diseases of stomach and duodenum K29.70, Gastritis, unspecified, without bleeding K21.0, Gastro-esophageal reflux disease with esophagitis CPT copyright 2017 [employer]. All rights reserved. The codes documented in this report are preliminary and upon mva reactor operator head review may be revised to meet current compliance requirements. Recognized by the [employer] for promoting quality in endoscopy PERSON documented in this encounter Miscellaneous Notes * Perioperative Nursing Note - Meli Cooper, RN - 01/15/2019 12:15 PM FIREPERSON 1130 here to speak w/pt. Instructed pt to avoid NSAIDs and to take her pantoprazole or ppi she has at home daily. Pt reports only took prn. PERSON documented in this encounter Plan of Treatment Not on file documented as of this encounter Procedures Procedure Name Priority Date/Time Associated Diagnosis Comments ESOPHAGOGASTRODUODENOSCOPY 01/15 11:01 AM FIREPERSON Dysphagia, unspecified type EGD 01/15/2019 10:28 AM FIREPERSON documented in this encounter Results * EGD (01/15/2019 10:28 AM FIREPERSON) Anatomical Region Laterality Modality Other Narrative Procedure Note Jaciel Mott MD - 01/15/2019 10:28 AM CST [facility] Patient Name: Gabbie Chris Procedure Date: [...] was passed under direct vision.The Endoscope GIF-H190 [id number] was introduced throughthe mouth, and advanced to [...] 10:28 AM Procedure Code(s): --- Professional --- 89844, Esophagogastroduodenoscopy, flexible, transoral; diagnostic, including collection of specimen(s) by brushing or washing, when performed (separate procedure) Diagnosis Code(s): --- Professional --- R12, Heartburn R13.10, Dysphagia, unspecified K26.9, Duodenal ulcer, unspecified as acute or chronic, without hemorrhage or perforation K31.89, Other diseases of stomach and duodenum K29.70, Gastritis, unspecified, without bleeding K21.0, Gastro-esophageal reflux disease with esophagitis CPT copyright 2017 [employer]. All rights reserved. The codes documented in this report are preliminary and upon mva reactor operator head reviewmay be revised to meet current compliance requirements. Recognized by the [employer] for promoting quality in endoscopy Jaciel Mott MD ENDOSCOPY PROCEDURES Final Re sult documented in this encounter Visit Diagnoses Diagnosis Dysphagia- Primary documented in this encounter Admitting Diagnoses Diagnosis [...] Pre-Procedure (GI) Rate/Dose Verify 01/15/2019 11:05 AM FIREPERSON New Bag 01/15/2019 11:03 AM FIREPERSON 30 mL/hr 30 mL/hr sodium chloride 0.9% [...] Recently Administered Medications Times are shown in FIREPERSON. Scheduled Medication Order 01/13/2019 01/14/2019 01/15/2019 sodium chloride 0.9% flush 0.5-20 mL 0.5-20 mL, intra-catheter, Every 8 hours scheduled, First dose on Tue01/15/19 at 1400, Pre-Procedure (GI), Flush volume based on line type and size. 1038 ([facility] Hold - Pro vider: Automatic Transfer Provider - Reason: Patient not available)1619 ([facility] Unhold - Provider: User [...] Recovery (GI), Indications: Nausea and Vomiting 1038 ([facility] Hold - Pro vider: Automatic Transfer Provider - Reason: Patient not available)1619 ([facility] Unhold - Provider: User Epic) sodium chloride 0.9% flush 0.5-20 mL 0.5-20 mL, intra-catheter, As needed, line care, Starting on 01/15/19 at 1037, Pre-Procedure (GI), Flush volume based on line type and size. Flush before and after each use. 1038 ([facility] Hold - Pro vider: Automatic Transfer Provider - Reason: Patient not available)1619 ([facility] Unhold - Provider: User Epic) documented in this encounter Orders Medications Ordered That Krunal ht Not Have Been Administered Count Last Ordered Date First Ordered Date ondansetron (ZOFRAN) injection 4 mg 1 01/15 sodium chloride 0.9% flush 0.5-20 mL 2 12/29 sodium chloride 0.9% infusion 1 01/15/2019 documented in this encounter Care Teams Plane Runner Relationship Specialty Start Date End Date Torito Gonzalez MD [address] [place] [address] PCP - General 02/25/17 documented as of this encounter
--- OUTSIDE RECORDS SUMMARY | 2024-11-18 12:00 | XMS_ITS | Encounter Summary ---
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 FLP, FBS and vit. D are all normal. documented in this encounter Plan of Treatment Not on file documented as of this encounter Procedures Procedure Name Priority Date/Time Associated Diagnosis Comments VITAMIN D 25 HYDROXY Routine 05/29/2018 7:18 AM CDT Well woman exam GLUCOSE, FASTING Routine 05/29/2018 7:18 AM CDT Well woman exam LIPID PANEL Routine 05/29/2018 7:18 AM CDT Well woman exam documented in this encounter Results * Vitamin D 25 hydroxy (05/29/2018 7:18 AM CDT) Vitamin D 25-OH 65 30 - 80 ng/mL [facility] ([place]) Comment:Testing performed by : [facility], [address] [place] [address], [place]., [address] Blood specimen (specimen) 05/29/2018 7:18 AM CDT 05/29/2018 7:41 AM CDT Narrative [facility] - 05/30/2018 3:19 PM CDT Alhaji Payan MD LAB BLOOD ORDERABLES Final Result [facility] ([place]) [address] [facility] Department of Laboratories [place], [place] [address] * Lipid panel (05/29/2018 7:18 AM CDT) Pathologist [facility] Cholesterol 164 40 - 199 mg/dL [facility] ([place]) Comment: Interpretive Data Desirable: ??Less than 200 mg/dl ? Borderline High: ?200 - 239 mg/dl ? High: ??Greater than ?? 239 mg/dl Current interpretive data was last revised on 2015. Triglycerides 125.0 <=150.0 mg/dL [facility] ([place]) Comment: Interpretive Data Normal: ? Less than 150 mg/dl Borderline high: ??150-199 mg/dl ?? High: ? 200-499 mg/dl ? Very high: ??Greater than or equal to 500 mg/dl Current interpretive data was last revised on 2017. HDL 58 40 - 60 mg/dL [facility] ([place]) Comment: Interpretive Data Low HDL Cholesterol: ? Less than 40 mg/dl Normal HDL Cholesterol: ??40-60 mg/dl High HDL Cholesterol: ?Greater than 60 mg/dl Current interpretive data was last revised on 2015. LDL, calculated 81 mg/dL [facility] ([place]) Comment: Interpretive Data Optimal ? Less than 100 mg/dL ? Near optimal/Above optimal ??100 - 129 mg/dL ? Borderline high ? 130 - 159 mg/dL ? High ?160 - 189 mg/dL ? Very high ? Greater than or = 190 mg/dL ? LDL values are not valid when the total Triglyceride is greater than 300 mg/dL. Current interpretive data was last revised on 2015. Non-HDL Cholesterol 106 mg/dL [facility] ([place]) Comment: Interpretive Data Optimal ? Less than 130 mg/dL Low Risk ?130 - 159 mg/dL Moderate Risk ? 160 - 189 mg/dL High Risk ? Greater than or equal to 190 mg/dL Current interpretive data was last revised on 2015. Blood specimen (specimen) 05/29/2018 7:18 AM CDT 05/29/2018 7:41 AM CDT Narrative [facility]) - 05/29/2018 8:20 AM CDT us Alhaji Payan MD LAB BLOOD ORDERABLES Final Result Performing Organization Address City/[facility]/ZIP Co de Phone Number [facility] ([place]) [address] [facility] [place] [address] * Glucose, fasting (05/29/2018 7:18 AM CDT) Glucose, fasting 92 70 - 99 mg/dL [facility] ([place]) Blood specimen (specimen) 05/29/2018 7:18 AM CDT 05/29/2018 7:41 AM CDT Narrative [facility] ([place]) - 05/29/2018 8:20 AM CDT Alhaji Payan MD LAB BLOOD ORDERABLES Final Result Performing Organization Address [facility] Co de Phone Number [facility] ([place]) [address] [place] [address] documented in this encounter Visit Diagnoses Diagnosis Well woman exam Routine general medical examination at a health care facility documented in this encounter Care Teams Ice Puller Relationship Specialty Start Date End Date Torito Gonzalez MD [address] [place] [address] PCP - General 02/25/17 documented as of this encounter
--- OUTSIDE RECORDS SUMMARY | 2024-11-18 12:00 | XMS_ITS | Encounter Summary ---
Author Organization [facility] Care Team Providers Care Merchandising Professor Name Role Phone Torito Gonzalez MD Primary Care Provider +1- [phone] Encounter Details Date Type Department Care Team (Latest Contact Info) Description 04/23/2019 Travel Social History Tobacco Use Types Packs/Day Years Used Date Smoking Tobacco: Some Days Smokeless Tobacco: Never Comments:Smoking History Pac ks/day: 0.25 Packs Alcohol Use Standard Drinks/Week Comments No 0 (1 standard drink = 0.6 oz pur e alcohol) Comments No Sex and Gender Information Value Date Recorded Sex Assigned at Not on file Legal Sex Female 1:11 AM PRE BILLING SPECIALIST Gender Identity Not on file Sexual Orientation Not on file documented as of this encounter Plan of Treatment Not on file documented as of this encounter Visit Diagnoses Not on filedocumented in this encounter Care Teams Merchandising Professor Relationship Specialty Start Date End Date Torito Gonzalez MD [address] [place] [address] PCP - General 02/25/17 documented as of this encounter
--- OUTSIDE RECORDS SUMMARY | 2024-11-18 12:00 | XMS_ITS | Encounter Summary ---
Author Organization [facility] Address [address] [place] [address] Care Team Providers Care Animal Husbandry Manager Name Role Phone Torito Gonzalez MD Primary Care Provider +1- [phone] Reason for Referral * Diagnostic Imaging (Routine) - Closed Specialty Diagnoses / Procedures Referred By Turner ramirez Referred To Contact Diagnoses Back pain, unspecified back location, unspecified back pain laterality, unspecified chronicity Procedures XR Spine Thoracic 3 Vw Torito Gonzalez MD Phone: tel: fax: [address] [address] Referral ID Status Reason Start Date Expiration Date Visits Re quested Visits Authorized [id number] Closed 09/08/2018 03/19/2020 1 1 Reason for Visit * Diagnostic Imaging (Routine) - Closed Specialty Diagnoses / Procedures Referred By Turner ramirez Referred To Contact Diagnoses Back pain, unspecified back location, unspecified back pain laterality, unspecified chronicity Procedures XR Spine Thoracic 3 Vw Torito Gonzalez MD Phone: tel: fax: [address] [address] Referral ID Status Reason Start Date Expiration Date Visits Re quested Visits Authorized [id number] Closed 09/08/2018 03/19/2020 1 1 Encounter Details Date Type Department Care Team (Latest Contact Info) Description 09/08/2018 7:22 AM CDT - 09/08/2018 11:59 PM CDT Hospital Encounter [facility] [address] [place] [id number] Torito Gonzalez MD [address] [address] [place] [address] Back pain, unspecified back location, unspecified back pain laterality, unspecified chronicity Discharge Disposition: Discharge to home or self [...] file Legal 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 ??NO THORACIC COMPRESSION FRACTURE. 2. MULTILEVEL OVERALL MILD TO MODERATE OSTEOARTHRITIS OF THE THORACIC SPINE. Electronically signed by: Aly James M.D. Narrative 09/08/2018 8:40 AM CDT XR SPINE THORACIC 3 VIEWS HISTORY: ??Chronic thoracic pain COMPARISON: 10/08/2014 FINDINGS: AP and lateral views of the thoracic spine demonstrate anatomic alignment. ??There is no thoracic compression fracture. There is mild multilevel degenerative endplate spur formation in the mid and lower thoracic spine. ??At T11-T12 and T8-T9 there are endplate sclerotic changes. ??Multilevel disc space narrowing is seen in the mid to lower thoracic spine. ??Moderate osteoarthritic changes are visualized in the lower half of the cervical spine as well. Procedure Note Aly James MD - 09/08/2018 XR SPINE THORACIC 3 VIEWS HISTORY: Chronic thoracic pain COMPARISON: 10/08/2014 FINDINGS: AP and lateral views of the thoracic spine demonstrate anatomic alignment. There is no thoracic compression fracture. There is mild multilevel degenerative endplate spur formation in the mid and lower thoracic spine. At T11-T12 and T8-T9 there are endplate sclerotic changes. Multilevel disc space narrowing is seen in the mid to lower thoracic spine. Moderate osteoarthritic changes are visualized in the lower half of the cervical spine as well. IMPRESSION: 1. NO THORACIC COMPRESSION FRACTURE. 2. MULTILEVEL OVERALL MILD TO MODERATE OSTEOARTHRITIS OF THE THORACIC SPINE. Electronically signed by: Aly James M.D. Torito Gonzalez MD IMG XR PROCEDURES Final Resul t documented in this encounter Visit Diagnoses Diagnosis Back pain, unspecified back location, unspecified back pain laterality, unspecified chronicity documented in this encounter Care Teams Animal Husbandry Manager Relationship Specialty Start Date End Date Torito Gonzalez MD [address] [place] [address] PCP - General 02/25/17 documented as of this encounter
--- OUTSIDE RECORDS SUMMARY | 2024-11-18 12:00 | XMS_ITS | Encounter Summary ---
Author Organization [facility] Care Team Providers Care Etl Informatica Developer Name Role Phone Torito Gonzalez MD Primary Care Provider +1- [phone] Encounter Details Date Type Department Care Team (Latest Contact Info) Description 05/28/2019 Travel Social History Tobacco Use Types Packs/Day Years Used Date Smoking Tobacco: Former Smokeless Tobacco: Never Comments:Smoking History Pac ks/day: 0.25 Packs Alcohol Use Standard Drinks/Week Comments No 0 (1 standard drink = 0.6 oz pur e alcohol) Comments No Sex and Gender Information Value Date Recorded Sex Assigned at Not on file Legal Sex Female 1:11 AM [place] Gender Identity Not on file Sexual Orientation Not on file documented as of this encounter Plan of Treatment Not on file documented as of this encounter Visit Diagnoses Not on filedocumented in this encounter Care Teams Etl Informatica Developer Relationship Specialty Start Date End Date Torito Gonzalez MD [address] [place] [address] PCP - General 02/25/17 documented as of this encounter
--- OUTSIDE RECORDS SUMMARY | 2024-11-18 12:00 | XMS_ITS | Encounter Summary ---
Author Organization [facility] Address [address] [place] [address] Care Team Providers Care Scraper Hand Name Role Phone Torito Gonzalez MD Primary Care Provider +1- [phone] Reason for Referral * Diagnostic Imaging (Routine) - Closed Specialty Diagnoses / Procedures Referred By Turner t Referred To Contact Diagnoses Screening for breast cancer Procedures SCREENING MAMMOGRAM BILATERAL W Alhaji Francis MD Phone: tel: fax: [facility] [address] [place] [address] Referral ID Status Reason Start Date Expiration Date Visits Re quested Visits Authorized [id number] Closed 05/22/2018 12/01/2019 1 1 Reason for Visit * Reason Comments Gynecologic Exam Encounter Details Date Type Department Care Team (Late st Contact Info) Description 05/22/2018 10:00 AM CDT Office Visit [facility] [address] [facility] [address] [place] [address] Alhaji Payan MD [address] [place] [address] [address] [place], [place] [id number] Well woman exam (Primary Dx); Hypovitaminosis D; Screening for breast cancer Social History Tobacco Use Types Packs/Day Years Used Date Smoking Tobacco: Former Smokeless Tobacco: Never Comments:Smoking History Pac ks/day: 0.25 Packs Alcohol Use Standard Drinks/Week Comments No 0 (1 standard drink = 0.6 oz pur e alcohol) Comments No Sex and Gender Information Value Date Recorded Sex Assigned at Not on file 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 Gender Identity Not on file Sexual Orientation Not on file documented as of this encounter Last Filed Vital Signs Vital Sign Reading Time Taken Comments Blood Pressure 130/82 05/22/2018 10:07 AM CDT Pulse - - Temperature - - Respiratory Rate - - Oxygen Saturation - - Inhaled Oxygen Concentration - - Weight 76.7 kg (169 lb) 05/22/2018 10:07 AM CDT Height 165.1 cm (5' 5 ) 05/22/2018 10:07 AM CDT Body Mass Index 28.12 05/22/2018 10:07 AM CDT documented in this encounter Progress Notes * Alhaji Payan MD - 05/22/2018 10:00 AM CDT Well Woman Exam Subjective: Pateint presents for: Gynecologic Exam Gabbie Chris is a 62 y.o. year old female who presents for a well woman exam. She denies c/os. Colonoscopy was normal last year. Contraception:Hysterectomy. No LMP recorded. Patient has had a hysterectomy. Past Medical History: Diagnosis Date ??? HX OTHER MEDICAL 1976 ; Outcome: 7 lb(s) 2 oz Male ??? HX OTHER MEDICAL 1970 ; Outcome: 7 lb(s) 4 oz Female Past Surgical History: Procedure Laterality Date ??? APPENDECTOMY 1995 Appendectomy ??? CARDIAC CATHETERIZATION 2009 HEART CATH ??? CATARACT EXTRACTION W/ INTRAOCULAR LENS IMPLANT 2017 ??? OTHER SURGICAL HISTORY 1976 : ??? OTHER SURGICAL HISTORY 1970 : ??? TOTAL ABDOMINAL HYSTERECTOMY W/ BILATERAL SALPINGOOPHORECTOMY 1995 [place]/BSO Current Outpatient Prescriptions: ??? amLODIPine (NORVASC) 2.5 mg tablet, take [...] day with food, Disp: 0, Rfl: 0 ??? naproxen sodium (ALEVE) 220 mg capsule, 220 mg., Disp: 0, Rfl: 0 ??? simvastatin (ZOCOR) 5 mg tablet, take 1 tablet by oral route every day in the evening, Disp: , Rfl: 0 No Known Allergies Family History Problem Relation Age of Onset ??? Coronary artery disease Mother Coronary artery disease; ??? Hypertension Mother Hypertension; ??? Congenital heart disease Brother Congenital heart disease; ??? Diabetes Brother Diabetes mellitus; ??? Hypertension Brother Hypertension; Social History Social History ??? Marital status: Spouse name: N/A ??? Number of children: N/A ??? Years of education: N/A Social History Main Topics ??? Smoking status: Former Smoker ??? Smokeless tobacco: Never Used Comment: Smoking History Packs/day: 0.25 Packs ??? Alcohol use No ??? Drug use: No ??? Sexual activity: Not Currently Partners: Male control/ protection: Hysterectomy Other Topics Concern ??? None Social History [...] stool, constipation, diarrhea, nausea and vomiting. Endocrine: Positive for heat intolerance. Negative for cold intolerance and polydipsia. Genitourinary: Negative for dyspareunia, [...] The patient is not nervous/anxious. Objective: BP 130/82 (BP Location: Right arm, Patient Position: Sitting) Ht 165.1 cm (5' 5 ) Wt 169 lb (76.7 kg) BMI 28.12 kg/m?? Physical Exam Constitutional: She is oriented [...] There is no rebound. No hernia. Genitourinary: Vagina normal. There is no lesion on the right labia. There is no lesion on the leftlabia. Right adnexum displays no mass and no tenderness. Left adnexum displays no mass and no tenderness. No vaginal discharge found. Genitourinary Comments: Uterus surgically absent. RV exam deferred with colonoscopy done last year. Musculoskeletal: She exhibits no edema or tenderness. [...] for this visit: Well woman exam (Primary) Comments: Will check FLP and FBS for screening. Orders: - Glucose, fasting; Future - Lipid panel; Future - Vitamin D 25 hydroxy; Future Hypovitaminosis D Comments: Recheck vit. D Screening for breast cancer Comments: MMG script given. Recommended screenings and preventive care discussed: Breast cancer: Breast Self Exam encouraged. Pap deferred. Calcium and vitamin D BID recommended and cholesterol screening discussed. Will check FLP, FBS and vit. D. Low fat, low carbohydrate diet and exercise encouraged. Return in about 1 year (around 05/22/2019) for annual exam. Alhaji Payan MD 05/22/2018 documented in this encounter Miscellaneous Notes * Addendum Note - Alize Wick MA - 05/22/2018 10:00 AM CDTAddended by: ALIZE WICK on: 05/22/2018 10:48 AM Modules accepted: Orders documented in this encounter Plan of Treatment Not on file documented as of this encounter Results * SCREENING MAMMOGRAM BILATERAL [...] MD IMG MAMMO PROCEDURES Final Result * Vitamin D 25 hydroxy (05/29/2018 7:18 AM CDT) Vitamin D 25-OH 65 30 - 80 ng/mL ESPERANZA [facility] ([place]) Comment:Testing performed by : [facility], [address] [place] [address], [place]., [address] Blood specimen (specimen) 05/29/2018 7:18 AM CDT 05/29/2018 7:41 AM CDT Narrative [facility] ([place]) - 05/30/2018 3:19 PM CDT Alhaji Payan MD LAB BLOOD ORDERABLES Final Result [facility] ([place]) [address] [facility] Department [place] [address] * Lipid panel (05/29/2018 7:18 AM CDT) Cholesterol 164 40 - 199 mg/dL ESPERANZA [...] BLOOD ORDERABLES Final Result Performing Organization Address [facility] Co de Phone Number ESPERANZA [facility] (TRIC[place]) 1 [facility] [place] [address] * Glucose, fasting (05/29/2018 7:18 AM CDT) Glucose, fasting 92 70 - 99 mg/dL [facility] ([place]) Blood specimen (specimen) 05/29/2018 7:18 AM CDT 05/29/2018 7:41 AM CDT Narrative [facility] ([place]) - 05/29/2018 8:20 AM CDT us Alhaji Payan MD LAB BLOOD ORDERABLES Final Result Performing Organization Address [facility] Co de Phone Number ESPERANZA [facility] (TRIC[place]) 1 [facility] [place] [address] documented in this encounter Visit Diagnoses Diagnosis Well woman exam- Primary Routine general medical examination at a health care facility Hypovitaminosis D Unspecified vitamin D deficiency Well woman exam Routine general medical examination at a health care facility Screening for breast cancer Breast screening, unspecified documented in this encounter Discontinued Medications Medication Sig Discontinue Reason Start Date End Da te BIOTIN ORAL Take 1,000 mcg by mouth 3 (three) times a day. Therapy completed 05/22/2018 calcium carbonate-vitamin D3 (CALCIUM 500 + D) 1,250mg (500mg elemental) - 200 units per tablet take 2 Tablet by Oral route every day Duplicate order 05/10/2016 05/22/2018 estrogens, conjugated, (PREMARIN) 0.3 mg tablet TAKE 1 TABLET DAILY Therapy completed 03/25/2014 05/22/2018 omeprazole (PriLOSEC) 20 mg capsule take 1 capsule (20MG) by oral route every day before a meal Therapy completed 02/21/2012 05/22/2018 documented as of this encounter Care Teams Scraper Hand Relationship Specialty Start Date End Date Torito Gonzalez MD [address] [place] [address] PCP - General 02/25/17 documented as of this encounter
--- OUTSIDE RECORDS SUMMARY | 2024-11-18 12:00 | XMS_ITS | Encounter Summary ---
Author Organization [facility] Address [address] [place] [address] Care Team Providers Care Elementary Substitute Teacher Name Role Phone Torito Gonzalez MD Primary Care Provider +1- [phone] Reason for Visit * Reason Onset Date Comments Test Results 06/01/2018 normal Encounter Details Date Type Department Care Team ([facility] st Contact Info) Description 06/01/2018 Telephone [facility] [address] [facility] [address] [place] [address] Samia Carter LPN Test Results (normal) Social History Tobacco Use Types Packs/Day Years Used Date Smoking Tobacco: Former Smokeless Tobacco: Never Comments:Smoking History Pac ks/day: 0.25 Packs Alcohol Use Standard Drinks/Week Comments No 0 (1 standard drink = 0.6 oz pur e alcohol) Comments No Sex and Gender Information Value Date Recorded Sex Assigned at Not on file 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 FLP, FBS and vit. D are all normal. documented in this encounter Plan of Treatment Not on file documented as of this encounter Visit Diagnoses Not on filedocumented in this encounter Care Teams Elementary Substitute Teacher Relationship Specialty Start Date End Date Torito Gonzalez MD [address] [place] [address] PCP - General 02/25/17 documented as of this encounter
--- OUTSIDE RECORDS SUMMARY | 2024-11-18 12:00 | XMS_ITS | Encounter Summary ---
Author Organization [facility] Address [address] [place] [address] Care Team Providers Care Professor Of Law Name Role Phone Torito Gonzalez MD Primary Care Provider +1- [phone] Reason for Visit * Reason Onset Date Comments Repeat Vitamin D level 11/14/2017 Encounter Details Date Type Department Care Team (Late st Contact Info) Description 11/14/2017 Telephone [facility] [address] [facility] [address] [place] [address] Leticia Montes De Oca RN Repeat Vitamin D level Social History Tobacco Use Types Packs/Day Years Used Date Smoking Tobacco: Former Smokeless Tobacco: Never Comments:Smoking History Pac ks/day: 0.25 Packs Alcohol Use Standard Drinks/Week Comments No 0 (1 standard drink = 0.6 oz pur e alcohol) Comments No Sex and Gender Information Value Date Recorded Sex Assigned at Not on file Legal 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 Ordered for [facility]. OR MARKETING MANAGER documented in this encounter Plan of Treatment Not on file documented as of this encounter Visit Diagnoses Diagnosis Vitamin D deficiency- Primary documented in this encounter Care Teams Professor Of Law Relationship Specialty Start Date End Date Torito Gonzalez MD [address] [place] [address] PCP - General 02/25/17 documented as of this encounter
--- OUTSIDE RECORDS SUMMARY | 2024-11-18 12:00 | XMS_ITS | Encounter Summary ---
Author Organization [facility] Address [address] [place] [address] Care Team Providers Care Call Centre Supervisor Name Role Phone Torito Gonzalez MD Primary Care Provider +1- [phone] Reason for Visit * Reason Onset Date Comments Vitamin D 06/14/2017 Encounter Details Date Type Department Care Team (Late st Contact Info) Description 06/14/2017 Telephone [employer] [facility] [address] [facility] [address] [place] [address] Leticia Montes De Oca RN Vitamin D Social History Tobacco Use Types Packs/Day Years Used Date Smoking Tobacco: Former Smokeless Tobacco: Never Comments:Smoking History Pac ks/day: 0.25 Packs Alcohol Use Standard Drinks/Week Comments No 0 (1 standard drink = 0.6 oz pur e alcohol) Comments No Sex and Gender Information Value Date Recorded Sex Assigned at Not on file 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 30 tablet 5 06/14/2017 08/13/2020 documented in this encounter Miscellaneous Notes * Telephone Encounter - Alize Dean MA - 06/14/2017 3:44 PM CDT Patient returned call, informed patient that her Vitamin D was low. Recommended that patient take 5000 IU daily with 5 refills sent prescription to pharmacy. Patient advised to finish medication and contact office when completed with treatment to have Vitamin D level rechecked. * Telephone Encounter - Leticia Montes De Oca, RN - 06/14/2017 3:34 PM CDT LMOM (OK per HIPPA) to let pt know her Vitamin D was 21, Vitamin D 5,000, erx'ed with 5 refills. [facility] to call when refills are gone to repeat level. documented in this encounter Plan of Treatment Not on file documented as of this encounter Visit Diagnoses Not on filedocumented in this encounter Care Teams Call Centre Supervisor Relationship Specialty Start Date End Date Torito Gonzalez MD [address] [place] [address] PCP - General 02/25/17 documented as of this encounter
--- OUTSIDE RECORDS SUMMARY | 2024-11-18 12:00 | XMS_ITS | Encounter Summary ---
Author Organization [facility] Address [address] [place] [address] Care Team Providers Care Fly Tier Name Role Phone Torito Gonzalez MD Primary Care Provider +1- [phone] Encounter Details Date Type Department Care Team (Late st Contact Info) Description 04/17/2018 3:36 PM CDT - 04/17/2018 11:59 PM CDT Hospital Encounter [facility] [address] [place] [address] Torito Gonzalez MD [address] [place] [address] Foot swelling Discharge Disposition: Discharge to home or self [...] on file Legal Sex Female 1:11 AM PSYCHOLOGIST EDUCATIONAL Gender Identity Not on file Sexual Orientation Not on file documented as of this encounter Medications at Time of Discharge aspirin 81 mg tablet take 1 tablet by oral route every day 0 0 05/10/2016 amLODIPine (NORVASC) 2.5 mg tablet take 1 tablet by oral route every day 0 05/10/2016 04/18/2020 BIOTIN ORAL Take 1,000 mcg by mouth 3 (three) times a day. 05/22/2018 calcium carbonate-vitamin D3 (CALCIUM 500 + D) 1,250mg (500mg elemental) - 200 units per tablet take 2 Tablet by Oral route every day 0 0 05/10/2016 05/22/2018 cholecalciferol (VITAMIN D-3) 2,000 unit tablet Take 1 tablet (2,000 Units total) by mouth daily. 30 tablet 5 06/14/2017 08/13/2020 estrogens, conjugated, (PREMARIN) 0.3 mg tablet TAKE 1 TABLET DAILY 90 1 03/25/2014 05/22/2018 multivitamin tablet tablet take 1 tablet by oral route every day with food 0 0 05/10/2016 08/13/2020 naproxen sodium (ALEVE) 220 mg capsule 220 mg. 0 0 05/06/2015 05/28/2019 omeprazole (PriLOSEC) 20 mg capsule take 1 capsule (20MG) by oral route every day before a meal 0 02/21/2012 05/22/2018 simvastatin (ZOCOR) 5 mg tablet take 1 tablet by oral route every day in the evening 0 02/16/2011 01/15/2019 documented as of this encounter Discharge Disposition Disposition Code Departure Means Destination Discharge to home or self care documented in this encounter Plan of Treatment Not on file documented as of this encounter Procedures Procedure Name Priority Date/Time Associated Diagnosis Comments XR FOOT RIGHT 3 OR MORE VIEWS Schedule Routine, Read Routine (OP Routine) 04/17/2018 3:59 PM CDT Foot swelling documented in this encounter Results * XR Foot Right 3 or More Views (04/17/2018 3:59 PM CDT) Anatomical Region Laterality Modality Lower Extremities, Foot Right Computed Radiography Impressions 04/17/2018 4:46 PM CDT 1. ??NO ACUTE FRACTURE IDENTIFIED. 2. ??DEGENERATIVE CHANGES. Electronically signed by: Shazia Luque 04/17/2018 4:46 PM CDT XR FOOT RIGHT 3 OR MORE VIEWS HISTORY: Right foot injury, right foot pain.. TECHNIQUE: 3 views are obtained. COMPARISON: None available. FINDINGS: No acute fracture or dislocation identified. ??Mild degenerative osteoarthritic changes. ??A tiny plantar calcaneal spur. Procedure Note Peter Sheriff MD - 04/17/2018 XR FOOT RIGHT 3 OR MORE VIEWS HISTORY: Right foot injury, right foot pain.. TECHNIQUE: 3 views are obtained. COMPARISON: None available. FINDINGS: No acute fracture or dislocation identified. Mild degenerative osteoarthritic changes. A tiny plantar calcaneal spur. IMPRESSION: 1. NO ACUTE FRACTURE IDENTIFIED. 2. DEGENERATIVE CHANGES. Electronically signed by: Peter Sheriff M.D us Provider Transcribed Order IMG XR PROCEDURES Fin al Result documented in this encounter Visit Diagnoses Diagnosis Foot swelling Swelling of limb documented in this encounter Care Teams Fly Tier Relationship Specialty Start Date End Date Torito Gonzalez MD [address] [place] [address] PCP - General 02/25/17 documented as of this encounter
--- OUTSIDE RECORDS SUMMARY | 2024-11-18 12:00 | XMS_ITS | Encounter Summary ---
Author Organization [facility] Address [address] [place] [address] Care Team Providers Care Assistant Teacher Primary Name Role Phone Torito Gonzalez MD Primary Care Provider +1- [phone] Reason for Visit * Reason Onset Date Comments EGD 12/18/2018 Encounter Details Date Type Department Care Team ([facility] st Contact Info) Description 12/18/2018 Telephone [facility] Gastroenterology at [address] [place] [address] Kathryn Neumann EGD Social History Tobacco Use Types Packs/Day Years Used Date Smoking Tobacco: Former Smokeless Tobacco: Never Comments:Smoking History Pac ks/day: 0.25 Packs Alcohol Use Standard Drinks/Week Comments No 0 (1 standard drink = 0.6 oz pur e alcohol) Comments No Sex and Gender Information Value Date Recorded Sex Assigned at Not on file Legal 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 Female 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 Gender Identity Not on file Sexual Orientation Not on file documented as of this encounter Miscellaneous Notes * Telephone Encounter - Kathryn Neumann - 12/18/2018 2:31 PM CST Schedule EGD Dr Mott, 01-15-19 @ 11:00, verbal prep given and mailed, verified address KEEPING CLERK documented in this encounter Plan of Treatment Not on file documented as of this encounter Visit Diagnoses Diagnosis Dysphagia, unspecified type- Primary documented in this encounter Orders Case Request Count Last Ordered Date First Orde red Date CASE REQUEST GI 1 12/18/2018 documented in this encounter Care Teams Assistant Teacher Primary Relationship Specialty Start Date End Date Gonzalez, Torito K., MD [address] [place] [address] PCP - General 02/25/17 documented as of this encounter
--- OUTSIDE RECORDS SUMMARY | 2024-11-18 12:00 | XMS_ITS | Encounter Summary ---
Author Organization [facility] Address [address] [place] [address] Care Team Providers Care Child And Family Services Worker Name Role Phone Torito Gonzalez MD Primary Care Provider +1- [phone] Encounter Details Date Type Department Care Team (Late st Contact Info) Description 01/15/2019 11:05 AM VEST PRESSER Anesthesia Event [facility] [address] [place] [address] Andres Chilel MD [address] [place] [id number] Anesthesia Record Procedure Summary Procedure Name Responsible Anesthesiologist Anesthesia Start Time Anesthesia Stop Time ESOPHAGOGASTRODUODENOSCOPY Ting Chilel MD 01/15/19 1105 01/15/19 1114 Events Date Time Event Comment 01/15/2019 1103 1105 An Start 1105 An Start Data 1106 In Room 1106 Start Supplemental O2 1108 Patient Positioned Laterally 1108 An Induction The patient was reevaluated immediately before moderate or deep sedation use and before anesthesia induction. 1108 Proc Start 1109 Anesthesia Ready 1113 Proc Fin 1113 Out of Room 1113 an stop data 1114 Handoff to RN I completed my handoff [...] disposition at the time of handoff: PACU 1114 An Stop 1115 Release from care Meds Name Total propofol 140 mg lidocaine 2 % PF 60 mg sodium chloride 0.9% infusion 350 mL * Agents Name O2 * Blood No blood administrations on file. Lines, Drains, and Airways Type Details Placement Removal Peripheral IV Placement Date: 12/29 07/16; Placement Time: 1100; Catheter Size: 20 G; Orientation: Left; Location: Antecubital; Site Prep: Chlorhexidine; Removal Date: 01/15/19; Removal Time: 1135 01/15/19 1100 by Meli Cooper RN 01/15/19 1135 by Meli Cooper RN documented in this encounter Social History Tobacco Use Types Packs/Day Years Used Date Smoking Tobacco: Some Days Smokeless Tobacco: Never Comments:Smoking History Pac ks/day: 0.25 Packs Alcohol Use Standard Drinks/Week Comments No 0 (1 standard drink = 0.6 oz pur e alcohol) Comments No Sex and Gender Information Value Date Recorded Sex Assigned at Not on file Legal Sex Female 1:11 AM VEST PRESSER Gender Identity Not on file Sexual Orientation Not on file documented as of this encounter OR Notes * Anesthesia Postprocedure Evaluation - Karla Henley CRNA - 01/15/2019 11:15 AM CST Patient: Gabbie Chris Procedure Summary Date: 01/15/19 Room / Location: [facility] ROOM 2 / [facility] Anesthesia Start: 1105 Anesthesia Stop: 111 Procedure: ESOPHAGOGASTRODUODENOSCOPY (N/A ) Diagnosis: Dysphagia, unspecified type (Dysphagia, unspecified type [R13.10]) Provider: Jaciel Mott MD Responsible Provider: Andres Chilel MD Anesthesia Type: general/TIVA ASA Status: 2 Anesthesia Type: general/TIVA Last vitals BP 119/69 Pulse 73 Temp (!) 35.8 ??C (96.5 ??F) (Oral) Resp 15 SpO2 93% Anesthesia Post Evaluation Patient location during evaluation: PACU Patient participation: complete - patient participated Level 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 Postoperative Plan: No plan for postoperative opioid use. No postoperative mechanical ventilation intended. Patient's planned disposition post procedure is Outpatient. Informed Consent: Discussed plan with attending and CONTACT CENTER PROFESSIONAL. Anesthesia plan and risks discussed with patient. Consent and Attending signature: I and/or my designee have discussed the anesthesia plan, benefits, possible alternatives, parental presence at time of induction (if indicated), and clinically relevant risks that may include dental injury, unintentional awareness, and/or other complications. The patient and/or parent/legal guardian understand, and agree to proceed. All questions answered. PRESSER documented in this encounter Plan of Treatment Not on file documented as of this encounter Visit Diagnoses Not on filedocumented in this encounter Administered Medications Inactive Administered Medications - up to 3 most recent administrations Medication Order MAR Action Action Date Dose Rate Site lidocaine (XYLOCAINE) 20 mg/mL (2 %) preservative free injection As needed, Starting on Tue01/15/19 at 1108, Anesthesia Intra-op Given 01/15/2019 11:08 AM VEST PRESSER 60 mg propofol (DIPRIVAN) IV intravenous, As needed, Starting on Tue01/15/19 at 1108, Anesthesia Intra-op Given 01/15/2019 11:10 AM VEST PRESSER 40 mg Given 01/15/2019 11:08 AM VEST PRESSER 100 mg sodium chloride 0.9% infusion 30 mL/hr, intravenous, Continuous, Starting on Tue01/15/19 at 1115, Pre-Procedure (GI) Rate/Dose Verify 01/15/2019 11:05 AM VEST PRESSER New Bag 01/15/2019 11:03 AM VEST PRESSER 30 mL/hr 30 mL/hr documented in this encounter Care Teams Child And Family Services Worker Relationship Specialty Start Date End Date Torito Gonzalez MD [address] [place] [address] PCP - General 02/25/17 documented as of this encounter
--- OUTSIDE RECORDS SUMMARY | 2024-11-18 12:00 | XMS_ITS | Encounter Summary ---
Author Organization [facility] Address [address] [place] [address] Care Team Providers Care Open Winder Name Role Phone Torito Gonzalez MD Primary Care Provider +1- [phone] Encounter Details Date Type Department Care Team (Late st Contact Info) Description 05/18/2019 6:15 AM CDT [address] [address] Torito Gonzalez MD [address] [place] [address] Discharge Disposition: Discharge to home or self [...] on file Legal Sex Female 1:11 AM SHAPER AND PRESSER Gender Identity Not on file Sexual Orientation Not on file documented as of this encounter Discharge Disposition Disposition Code Departure Means Destination Discharge to home or self care documented in this encounter Plan of Treatment Not on file documented as of this encounter Procedures Procedure Name Priority Date/Time Associated Diagnosis Comments EGFR Routine 05/18/2019 6:18 AM CDT LIPID PANEL Routine 05/18/2019 6:18 AM CDT COMPREHENSIVE METABOLIC PANEL Routine 05/18/2019 6:18 AM CDT documented in this encounter Results * eGFR (05/18/2019 6:18 AM CDT) eGFR 88 mL/min/1.7 3 m2 [facility] Comment: Interpretive Data Reference Interval Normal ?>/= 90 mL/min/1.73m2 Mildly decreased* ? 60 - 89 mL/min/1.73m2 Mildly to moderately decreased ?45 - 59 mL/min/1.73m2 Moderately to severely decreased ??30 - 44 mL/min/1.73m2 Severely decreased ?15 - 29 mL/min/1.73m2 Kidney Failure ?< 15 ??mL/min/1.73m2 *Relative to young adult level If -[place] multiply value by 1.16. Estimated glomerular filtration [...] was last reviewed 2016. Blood specimen (specimen) 05/18/2019 6:18 AM CDT 05/18/2019 7:49 AM CDT us Torito Gonzalez MD LAB BLOOD ORDERABLES Final Result [facility] ([place]) 1 [facility] Department of Laboratories [place], [place] [id number] * (ABNORMAL) Lipid panel (05/18/2019 6:18 AM CDT) Cholesterol 207(H) 30 - 199 mg/dL [facility] ([place] [...] Data was last revised on 2018. Triglycerides 94 <=149 mg/dL [facility]) Comment: Interpretive Data [...] Data was last revised on 2018. HDL 57 >=40 mg/dL [facility]) Comment: Interpretive Data [...] was last revised on 2018. LDL, calculated 131(H) <=129 mg/dL [facility] ([place]) Comment: Interpretive [...] was last revised on 2018. Non-HDL Cholesterol 150 mg/dL [facility] ([place]) Comment: Interpretive Data [...] 4 [facility] ([facility]) Blood specimen (specimen) 05/18/2019 6:18 AM CDT 05/18/2019 7:49 AM CDT us Torito Gonzalez MD LAB BLOOD ORDERABLES Final Result [facility] 1 [facility] Department [place] [address] * Comprehensive metabolic panel (05/18/2019 6:18 AM CDT) Sodium 143 135 - 145 mmol/L [facility] ([facility]) Potassium, pl 4.4 3.3 - 4.9 mmol/L [facility]) Chloride 108 97 - 110 mmol/L [facility]) CO2 25 22 - 32 mmol/L [facility]) Anion gap 10 2 - 15 mmol/L [facility]) BUN 19 8 - 25 mg/dL [facility]) Creatinine 0.72 0.60 - 1.10 mg/dL [facility]) Glucose 87 70 - 199 mg/dL [facility] [...] interpretive data was last revised 2017. Calcium 9.7 8.5 - 10.3 mg/dL [facility]) Bilirubin, total 0.2 0.1 - 1.2 mg/dL [facility] ([facility]) Protein, pl 7.6 6.5 - 8.5 g/dL [facility]) Albumin 4.0 3.5 - 5.0 g/dL [facility]) Alk phos 128 40 - 130 Units/L [facility]) ALT 14 7 - 45 Units/L [facility]) AST 20 10 - 45 Units/L [facility]) Comment:Slightly Hemolyzed S pecimen Blood specimen (specimen) 05/18/2019 6:18 AM CDT 05/18/2019 7:49 AM CDT Narrative [facility] - 05/18/2019 8:32 AM CDT fax results to [phone] us Torito Gonzalez MD LAB BLOOD ORDERABLES Final Result [facility] 1 [facility] Department [place] [address] documented in this encounter Visit Diagnoses Not on filedocumented in this encounter Care Teams Open Winder Relationship Specialty Start Date End Date Torito Gonzalez MD [address] [place] [address] PCP - General 02/25/17 documented as of this encounter
--- OUTSIDE RECORDS SUMMARY | 2024-11-18 12:00 | XMS_ITS | Encounter Summary ---
Author Organization [facility] Address [address] [place] [address] Care Team Providers Care Lens Coating Technician Name Role Phone Torito Gonzalez MD Primary Care Provider +1- [phone] Reason for Referral * Diagnostic Imaging (Routine) - Closed Specialty Diagnoses / Procedures Referred By Turner ramirez Referred To Contact Diagnoses Encounter for screening mammogram for malignant neoplasm of breast Procedures Screening Mammogram Bilateral W Alhaji Oneal MD Phone: tel: fax: [address] [address] Referral ID Status Reason Start Date Expiration Date Visits Re quested Visits Authorized [id number] Closed 08/08/2019 02/16/2021 1 1 Reason for Visit * Diagnostic Imaging (Routine) - Closed Specialty Diagnoses / Procedures Referred By Turner ramirez Referred To Contact Diagnoses Encounter for screening mammogram for malignant neoplasm of breast Procedures Screening Mammogram Bilateral W Alhaji Oneal MD Phone: tel: fax: [address] [address] Referral ID Status Reason Start Date Expiration Date Visits Re quested Visits Authorized [id number] Closed 08/08/2019 02/16/2021 1 1 Encounter Details Date Type Department Care Team (Latest Contact Info) Description 09/22/2019 9:46 AM CDT - 09/22/2019 11:59 PM CDT Hospital Encounter [facility] [address] [place] [id number] Alhaji Payan MD [address] [place] [address] Encounter for screening mammogram for malignant neoplasm [...] on file Legal Sex Female 1:11 AM WRAPPER SELECTOR Gender Identity Not on file Sexual Orientation Not on file documented as of this encounter Last Filed Vital Signs Vital Sign Reading Time Taken Comments Blood Pressure - - Pulse - - Temperature - - Respiratory Rate - - Oxygen Saturation - - Inhaled Oxygen Concentration - - Weight 74.8 kg (165 lb) 09/22/2019 9:53 AM CDT Height 165.1 cm (5' 5 ) 09/22/2019 9:53 AM CDT Body Mass Index 27.46 09/22/2019 9:53 AM CDT documented in this encounter Medications [...] day with food 0 0 05/10/2016 08/13/2020 documented as of this encounter Discharge Disposition Disposition Code Departure Means Destination Discharge to home or self care documented in this encounter Plan of Treatment Not on file documented as of this encounter Procedures Procedure Name Priority Date/Time Associated Diagnosis Comments SCREENING MAMMOGRAM BILATERAL W HECTOR Schedule Routine, Read Routine (OP Routine) 09/22/2019 10:00 AM CDT Encounter for screening mammogram for malignant neoplasm of breast documented in this encounter Results * Screening Mammogram Bilateral W Hector (09/22/2019 10:00 AM CDT) Anatomical Region Laterality Modality Breast Bilateral Mammography 09/22/2019 10:0 2 AM CDT Impressions 09/22/2019 10:05 AM CDT 1. NO DEFINITIVE MAMMOGRAPHIC EVIDENCE OF MALIGNANCY 2. ??ANNUAL FOLLOW-UP RECOMMENDED BI-RADS 2 Electronically signed by: Aly James M.D. Narrative 09/22/2019 10:05 AM CDT SCREENING MAMMOGRAM BILATERAL W HECTOR HISTORY: Encounter for screening mammogram for malignant neoplasm of breast TECHNIQUE: 2 views of each breast were obtained with bilateral breast tomosynthesis. COMPARISON: Dating back to 05/21/2015 FINDINGS: The breasts are heterogeneously dense. No suspicious mass or calcification is seen to suggest mammographic evidence of malignancy. There are bilateral benign breast calcifications. Digital technology was employed plus computer aided detection software (R2) was utilized in interpretation of these images. ??This facility utilizes a reminder system to notify patient's of yearly mammograms. Alhaji Payan MD IMG MAMMO PROCEDURES Final Result documented in this encounter Visit Diagnoses Diagnosis Encounter for screening mammogram for malignant neoplasm of breast documented in this encounter Care Teams Lens Coating Technician Relationship Specialty Start Date End Date Torito Gonzalez MD [address] [place] [address] PCP - General 02/25/17 documented as of this encounter
--- OUTSIDE RECORDS SUMMARY | 2024-11-18 12:00 | XMS_ITS | Encounter Summary ---
Author Organization [facility] Address [address] [place] [address] Care Team Providers Care Vp Human Resources Name Role Phone Torito Gonzalez MD Primary Care Provider +1- [phone] Encounter Details Date Type Department Care Team (Late st Contact Info) Description 02/05/2019 7:15 AM CDT [address] [address] Torito Gonzalez MD [address] [place] [address] Discharge Disposition: Discharge to home or self [...] on file Legal Sex Female 1:11 AM MEDIA INTERN Gender Identity Not on file Sexual Orientation Not on file documented as of this encounter Discharge Disposition Disposition Code Departure Means Destination Discharge to home or self care documented in this encounter Plan of Treatment Not on file documented as of this encounter Procedures Procedure Name Priority Date/Time Associated Diagnosis Comments HEPATITIS C ANTIBODY Routine 02/05/2019 7:21 AM CDT HEPATITIS B SURFACE ANTIBODY (IMMUNE STATUS) Routine 02/05/2019 7:21 AM CDT HEPATITIS B SURFACE ANTIGEN Routine 02/05/2019 7:21 AM CDT HEPATIC FUNCTION PANEL Routine 02/05/2019 7:21 AM CDT documented in this encounter Results * Hepatitis B Surface Antigen (02/05/2019 7:21 AM CDT) HepBsAg Nonreactive Nonreactive [facility] ([place]) Comment:Testing performed by : [facility], [address] [place] [address]., [id number] Blood specimen (specimen) 02/05/2019 7:21 AM CDT 02/05/2019 11:10 AM CDT Narrative [facility] ([place]) - 02/05/2019 11:58 AM CDT Torito Gonzalez MD LAB MICROBIOLOGY - GENERAL ORDERABLES Final Result Performing Organization Address [facility] Co de Phone Number [facility] ([place]) 1 [facility] [place] [address] * Hepatitis C antibody (02/05/2019 7:21 AM CDT) Pathologist [facility] Hep C Ab Negative Negative [facility] ([place]) Comment:Testing performed by : [facility], [address] [place] [address]., [id number] Blood specimen (specimen) 02/05/2019 7:21 AM CDT 02/05/2019 11:10 AM CDT Narrative [facility] ([place]) - 02/05/2019 11:58 AM CDT Torito Gonzalez MD LAB MICROBIOLOGY - GENERAL ORDERABLES Final Result Performing Organization Address City/[facility] Co de Phone Number [facility] ([place]) 1 [facility] [place] [address] * Hepatitis B surface antibody (02/05/2019 7:21 AM CDT) HBsAb qn <8 mIUnits/m L [facility] ([place]) Comment: Interpretive Data <8 ? Negative (nonimmune) 8-11.9 Trent zone (presence of antibody and immunity indeterminate-see comment) > 12 ?? Positive (consistent with immunity if vaccinated or from past Hepatitis B infection) Per assay stopper maker? s instructions for use, positive results, defined as anti-HBs levels of 12.0 mIU/mL or greater, indicate adequate immunity to hepatitis B from past hepatitis B or HBV vaccination. ??However, per current CDC guidance, individuals with anti-HBs levels of 10 mIU/mL or greater after completing an HBV vaccination series are considered protected from hepatitis B. Negative results, defined as anti-HBs levels of <8.0 mIU/mL, indicate a lack of recovery from acute or chronic hepatitis B or inadequate immune response to HBV vaccination. ??The [place] Advisory Committee on Immunization Practices does not recommend more than 2 HBV vaccine series in nonresponders. Indeterminate results, defined as anti-HBs levels in the range from 8-11.9 mIU/mL, indicate inability to determine if anti-HBs is present at levels consistent with recovery or immunity. ??Repeat testing is recommended in 1 to 3 months. This test includes interpretations for both qualitative and quantitative testing. Current Interpretive Data was last revised on 2018. Testing performed by: [facility], [address] [place] [address]., [id number] Blood specimen (specimen) 02/05/2019 7:21 AM CDT 02/05/2019 11:10 AM CDT Narrative [facility] ([facility] - 02/05/2019 11:56 AM CDT Torito Gonzalez MD LAB MICROBIOLOGY - GENERAL ORDERABLES Final Result [facility] 1 [facility] [place] [address] * Hepatic function panel (02/05/2019 7:21 AM CDT) Bilirubin, total 0.4 0.1 - 1.2 mg/dL [facility] ([place]) Bilirubin, direct <0.2 0.1 - 0.3 mg/dL [facility] ([place]) Protein, pl 8.0 6.5 - 8.5 g/dL [facility] ([facility]) Albumin 4.2 3.5 - 5.0 g/dL [facility] ([facility]) Alk phos 127 40 - 130 Units/L [facility]) ALT 43 7 - 45 Units/L [facility] AST 42 10 - 45 Units/L [facility]) Blood specimen (specimen) 02/05/2019 7:21 AM CDT 02/05/2019 8:10 AM CDT Narrative [facility] ([facility]) - 02/05/2019 8:58 AM CDT us Torito Gonzalez MD LAB BLOOD ORDERABLES Final Result [facility] 1 [facility] [place] [address] documented in this encounter Visit Diagnoses Not on filedocumented in this encounter Care Teams Vp Human Resources Relationship Specialty Start Date End Date Torito Gonzalez MD [address] [facility] [place] [address] PCP - General 02/25/17 documented as of this encounter
--- OUTSIDE RECORDS SUMMARY | 2024-11-18 12:00 | XMS_ITS | Encounter Summary ---
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 Bone density of the hip is normal and of the spine shows improvement; continue present therapy. documented in this encounter Plan of Treatment Not on file documented as of this encounter Procedures Procedure Name Priority Date/Time Associated Diagnosis Comments DISCHARGE LABORATORY CUMULATIVE REPORT 06/14/2017 12:00 AM CDT SCREENING MAMMOGRAM 2D BILATERAL Schedule Routine, Read Routine (OP Routine) 06/13/2017 7:02 PM CDT Visit for screening mammogram DEXA AXIAL SKELETON BONE DENSITY 1 OR MORE SITES Schedule Routine, Read Routine (OP Routine) 06/13/2017 6:38 PM CDT VITAMIN D 25 HYDROXY New Adm-Reg 06/13/2017 1:00 PM CDT documented in this encounter Results * DISCHARGE LABORATORY CUMULATIVE REPORT (06/14/2017 12:00 AM CDT) Narrative 06/14/2017 12:00 AM CDT Ordered by an unspecified provider. us Historical Provider LAB BLOOD ORDERABLES Estefania lopez Result * Screening Mammogram bilateral (06/13/2017 7:02 PM CDT) Anatomical Region Laterality Modality Breast Bilateral Mammography 06/13/2017 7:02 PM CDT Narrative 06/13/2017 7:02 PM CDT SCREENING MAMM W EARLINE BI ??Acc#: ??[id number] DATE OF EXAM: ??Jun 13 2017 ?? SCREENING MAMM W EARLINE BI HISTORY: SCREENING MAMMOGRAM. TECHNIQUE: 2 views of each breast were obtained with bilateral breast tomosynthesis. COMPARISON: 05/24/2016 and 05/21/2015. FINDINGS: The breasts are heterogeneously dense. No suspicious mass or calcification is seen to suggest mammographic evidence of malignancy. ??A few benign calcifications. Digital technology was employed plus computer aided detection software (R2) was utilized in interpretation of these images. ??This facility utilizes a reminder system to notify patient's of yearly mammograms. IMPRESSION: 1. ??BENIGN FINDINGS. 2. ??ANNUAL FOLLOW-UP RECOMMENDED. BI-RADS 2 Electronically signed by: Betty Hernandez M.D Interpreting Physician: ??BETTY HERNANDEZ M.D. ??Read on: ??Jun 13 2017 ??2:03P Transcribed by: ??[facility] ??On: Jun 13 2017 ??2:01P Approved Electronically by: ??BETTY HERNANDEZ M.D. ??on: ??Jun 13 2017 ??2:01P Ordering DR: DR ALHAJI PAYAN Attending DR: DR ALHAJI PAYAN Attending: ??DR ALHAJI PAYAN Requesting: ??DR ALHAJI PAYAN Requesting Fax: ??[phone] Attending Fax: ??[phone] Attending ID: ??[id number] Requesting ID: ??[id number] Report To 1 ID: ??[id number] Report To 1 Name: ??DR ALHAJI PAYAN Report To 1 FAX: ??[phone] [facility] Order #: ??[id number] Procedure Note Miscellaneous, Not In File / Provider, Christie, - 06/15/2017 SCREENING MAMM W EARLINE BI Acc#: [id number] DATE OF EXAM: Jun 13 2017 SCREENING MAMM W EARLINE BI HISTORY: SCREENING MAMMOGRAM. TECHNIQUE: 2 views of each breast were obtained with bilateral breast tomosynthesis. COMPARISON: 05/24/2016 and 05/21/2015. FINDINGS: The breasts are heterogeneously dense. No suspicious mass or calcification is seen to suggest mammographic evidence of malignancy. A few benign calcifications. Digital technology was employed plus computer aided detection software (R2) was utilized in interpretation of these images. This facility utilizes a reminder system to notify patient's of yearly mammograms. IMPRESSION: 1. BENIGN FINDINGS. 2. ANNUAL FOLLOW-UP RECOMMENDED. BI-RADS 2 Electronically signed by: Betty Hernandez M.D Interpreting Physician: BETTY HERNANDEZ M.D. Read on: Jun 13 2017 2:03P Transcribed by: LIEN On: Jun 13 2017 2:01P Approved Electronically by: BETTY HERNANDEZ M.D. on: Jun 13 2017 2:01P Ordering DR: DR ALHAJI PAYAN Attending DR: DR ALHAJI PAYAN Attending: DR ALHAJI PAYAN Requesting: DR ALHAJI PAYAN Requesting Attending Attending ID: [id number] Requesting ID: [id number] Report To 1 ID: [id number] Report To 1 Name: DR ALHAJI PAYAN Report To 1 FAX: [phone] [facility] Order #: [id number] Alhaji Payan MD IMG MAMMO PROCEDURES Final Result * Dexa Axial Skeleton Bone Density 1 or 2 Site (06/13/2017 6:38 PM CDT) Anatomical Region Laterality Modality Body N/A Radiographic Angeline ging 06/13/2017 6:38 PM CDT Narrative 06/13/2017 6:38 PM CDT DEXA Bone Density Axial ??Acc#: ??[id number] DATE OF EXAM: ??Jun 13 2017 ?? EXAM: DEXA Bone Density Axial HISTORY: SCREENING FOR OSTEOPOROSIS 62-year-old postmenopausal female who states a history of hysterectomy and hormone replacement therapy. FINDINGS: LUMBAR SPINE: Mean bone mineral content is 0.873 g/cm2. The T-score is -1.6. LEFT HIP: Mean bone mineral content is 0.874 g/cm2. The neck T-score is -0.8. ?? The total T-score is -0.6. IMPRESSION: 1. ??OSTEOPENIA OF THE LUMBAR SPINE. ??COMPARED TO THE BASELINE STUDY OF 04/05/2013, THERE IS BEEN A STATISTICALLY SIGNIFICANT INCREASE IN BONE MINERAL DENSITY. 2. ??NORMAL BONE MINERAL DENSITY OF THE LEFT HIP. ??COMPARED TO THE BASELINE STUDY OF 04/05/2013, THERE IS BEEN NO STATISTICALLY SIGNIFICANT CHANGE IN BONE MINERAL DENSITY. X09 COMMENT: W.H.O. defines the T-score of between -1 and -2.5 as osteopenia, the level at which there may be an increased risk of developing osteoporosis and fractures in the future. ??Osteoporosis is defined as T-score lower than -2.5 (significantly increased risk of fracture due to osteoporosis). ??T-score is a comparison to peak bone mineral density of young adult reference population. ??Z-score is a comparison to bone mineral density of sex and age group population. ?? Electronically signed by: Cullen Ruiz M.D. Interpreting Physician: ??DR JOSE RAUL BAL M.D. ??Read on: ??Jun 13 2017 ?? 1:45P Transcribed by: ??PSC ??On: Jun 13 2017 ??1:43P Approved Electronically by: ??VALERIANO Leyva, DR BLUNT ??on: ??Jun 13 2017 ?? 1:43P Ordering DR: DR ALHAJI PAYAN Attending DR: DR ALHAJI PAYAN Attending: ??DR ALHAJI PAYAN Requesting: ??DR ALHAJI PAYAN Requesting Fax: ??[phone] Attending Fax: ??[phone] Attending ID: ??[id number] Requesting ID: ??[id number] Report To 1 ID: ??[id number] Report To 1 Name: ??DR ALHAJI PAYAN Report To 1 FAX: ??[phone] [facility] #: ??[id number] Procedure Note Miscellaneous, Not In File / Provider, MD Christie - 06/28/2017 DEXA Bone Density Axial Acc#: [id number] DATE OF EXAM: Jun 13 2017 EXAM: DEXA Bone Density Axial HISTORY: SCREENING FOR OSTEOPOROSIS 62-year-old postmenopausal female who states a history of hysterectomy and hormone replacement therapy. FINDINGS: LUMBAR SPINE: Mean bone mineral content is 0.873 g/cm2. The T-score is -1.6. LEFT HIP: Mean bone mineral content is 0.874 g/cm2. The neck T-score is -0.8. The total T-score is -0.6. IMPRESSION: 1. OSTEOPENIA OF THE LUMBAR SPINE. COMPARED TO THE BASELINE STUDY OF 04/05/2013, THERE IS BEEN A STATISTICALLY SIGNIFICANT INCREASE IN BONE MINERAL DENSITY. 2. NORMAL BONE MINERAL DENSITY OF THE LEFT HIP. COMPARED TO THE BASELINE STUDY OF 04/05/2013, THERE IS BEEN NO STATISTICALLY SIGNIFICANT CHANGE IN BONE MINERAL DENSITY. X09 COMMENT: W.H.O. defines the T-score of between -1 and -2.5 as osteopenia, the level at which there may be an increased risk of developing osteoporosis and fractures in the future. Osteoporosis is defined as T-score lower than -2.5 (significantly increased risk of fracture due to osteoporosis). T-score is a comparison to peak bone mineral density of young adult reference population. Z-score is a comparison to bone mineral density of sex and age group population. Electronically signed by: Cullen Ruiz M.D. Interpreting Physician: DR JOSE RAUL BAL M.D. Read on: Jun 13 2017 1:45P Transcribed by: [facility] On: Jun 13 2017 1:43P Approved Electronically by: VALERIANO Leyva, DR BLUNT on: Jun 13 2017 1:43P Ordering DR: DR ALHAJI PAYAN Attending DR: DR ALHAJI PAYAN Attending: DR ALHAJI PAYAN Requesting: DR ALHAJI PAYAN Requesting Attending Attending ID: [id number] Requesting ID: [id number] Report To 1 ID: [id number] Report To 1 Name: DR ALHAJI PAYAN Report To 1 FAX: [phone] [facility] Order #: [id number] Alhaji Payan MD IMG DXA PROCEDURES Final R esult * (ABNORMAL) Vitamin D 25 hydroxy (06/13/2017 1:00 PM CDT) Vitamin D 25-OH 21(L) 30 - 80 ng/mL [place] ([place]) Blood specimen (specimen) 06/13/2017 1:00 PM CDT 06/13/2017 1:19 PM CDT Alhaji Payan MD LAB BLOOD ORDERABLES Final Result [place] ([place]) 1 [facility] Department [place] [address] documented in this encounter Visit Diagnoses Diagnosis Visit for screening mammogram Screening for osteoporosis Special screening for osteoporosis documented in this encounter Care Teams Manager Baby Relationship Specialty Start Date End Date Torito Gonzalez MD [address] [place] [address] PCP - General 02/25/17 documented as of this encounter
--- OUTSIDE RECORDS SUMMARY | 2024-11-18 12:01 | XMS_ITS | Encounter Summary ---
Author Organization [facility] Healthcare Address [address] [place] [address] Care Team Providers Care Escape Wheel Tooth Cutter Name Role Phone Torito Gonzalez MD Primary Care Provider +1- [phone] Encounter Details Date Type Department Care Team (Late st Contact Info) Description 05/21/2015 8:38 AM CDT - 05/21/2015 11:59 PM CDT Hospital Encounter [facility] Alhaji Wilhelm MD [address] [place] [address] [address] Disorder of bone and cartilage Social History Tobacco Use Types Packs/Day Years Used Date Smoking Tobacco: Never Assessed Comments Unknown Sex and Gender Information Value Date Recorded Sex Assigned at Not on file 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 0 0 05/06/2015 05/28/2019 omeprazole (PriLOSEC) 20 mg capsule take 1 capsule (20MG) by oral route every day before a meal 0 02/21/2012 05/22/2018 simvastatin (ZOCOR) 5 mg tablet take 1 tablet by oral route every day in the evening 0 02/16/2011 01/15/2019 documented as of this encounter Plan of Treatment Not on file documented as of this encounter Procedures Procedure Name Priority Date/Time Associated Diagnosis Comments SERUM ANTINUCLEAR AB ([facility]) Routine 05/21/2015 6:45 AM CDT DISCHARGE LABORATORY CUMULATIVE REPORT 05/21/2015 documented in this encounter Results * (ABNORMAL) Serum antinuclear ab ([facility]ASH[facility]) (05/21/2015 6:45 AM CDT) LASHON, quant 1:80(A) Negative titer HISTORICAL RESULTS Comment: Added to LASHON accession # [id number] per faxed request. 05/23/2015 [id number] Test performed at [facility], [address] [place] [address]., [id number] LASHON, interp Nucleolar nuclear fluorescence( A) HISTORICAL RESULTS Serum 05/21/2015 6:45 AM CDT Historical Provider LAB BLOOD ORDERABLES Estefania l Result HISTORICAL RESULTS * DISCHARGE LABORATORY CUMULATIVE REPORT (05/21/2015) Narrative 05/21/2015 Ordered by an unspecified provider. us Historical Provider MD LAB BLOOD ORDERABLES Estefania l Result documented in this encounter Visit Diagnoses Diagnosis Disorder of bone and cartilage Disorder of bone and cartilage, unspecified documented in this encounter Care Teams Escape Wheel Tooth Cutter Relationship Specialty Start Date End Date Torito Gonzalez MD [address] [place] [address] PCP - General 02/21/12 02/24/17 documented as of this encounter
--- OUTSIDE RECORDS SUMMARY | 2024-11-18 12:01 | XMS_ITS | Encounter Summary ---
Author Organization [facility] Healthcare Address [address] [place] [address] Care Team Providers Care Tool Crib Manager Name Role Phone Torito Gonzalez MD Primary Care Provider +1- [phone] Encounter Details Date Type Department Care Team (Late st Contact Info) Description 06/12/2015 7:40 AM CDT - 06/12/2015 11:59 PM CDT Hospital Encounter [facility] Alhaji Wilhelm MD [address] [place] [address] [address] Disorder of bone and cartilage; Osteoporosis Social History Tobacco Use Types Packs/Day Years Used Date Smoking Tobacco: Never Assessed Comments Unknown Sex and Gender Information Value Date Recorded Sex Assigned at Not on file 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 RESULT: DXA LEFT HIP RESULTS SUMMARY: BMD (g/cm'b2) T-score ??Z-score Neck 0.789 ??-0.5 ??0.8 Total 0.946 ?? 0.0 ??1.1 DXA L-SPINE RESULTS SUMMARY: BMD (g/cm'b2) T-score ??Z-score L1 0.937 ??-0.5 ?? 0.9 L2 0.931 ??-0.9 ?? 0.6 L3 0.854 ??-2.1 ??-0.5 L4 0.965 ??-0.9 ?? 0.8 Total 0.923 ??-1.1 ?? 0.4 IMPRESSION: 1. NORMAL BONE MINERAL DENSITY IN THE LEFT HIP REGION. 2. OSTEOPENIA IN THE LUMBAR SPINE REGION. COMMENT: W.H.O. defines the T-score of between [...] density of sex and age group population. Interpreting Physician: ??CAMDEN AVILA M.D. ??Read on: ??Jun 12 2015 9:50A Transcribed by: ??ramez ?? On: Jun 12 2015 ??2:45P Approved Electronically by: ??CAMDEN AVILA M.D. ??on: ??Jun 12 2015 2:51P Attending: ??ALHAJI PATEL Requesting: ??DR ALHAJI PATEL Requesting Fax: ??-- Attending Fax: ??-- Attending ID: ??[id number] Requesting ID: ??[id number] Report To 1 ID: ??[id number] Report To 1 Name: ??ALHAJI PATEL Report To 1 FAX: ??-- [facility] Order #: Procedure Note Provider, MD Christie - 03/23/2017 RAMEZ DEXA Bone Density Axial Acc#: [id number] DATE OF EXAM: Jun 12 2015 CLINICAL HISTORY: Osteoporosis. RESULT: DXA LEFT HIP RESULTS SUMMARY: BMD (g/cm'b2) T-score Z-score Neck 0.789 -0.5 0.8 Total 0.946 0.01.1 DXA L-SPINE RESULTS SUMMARY: BMD (g/cm'b2) T-score Z-score L1 0.937 -0.5 0.9 L2 0.931 -0.9 0.6L3 0.854 -2.1 - 0.5 L4 0.965 -0.9 0.8 Total 0.923 -1.1 0.4 IMPRESSION: 1. NORMAL BONE MINERAL DENSITY IN THE LEFT HIP REGION. 2. OSTEOPENIA IN THE LUMBAR SPINE REGION. COMMENT: W.H.O. defines the T-score of between -1 and -2.5 as osteopenia, thelevel at which there may be an increased risk of developing osteoporosisand fractures in the future. Osteoporosis is defined as T-score lowerthan -2.5 (significantly increased risk of fracture due to osteoporosis).T-score is a comparison to peak bone mineral density of young adultreference population. Z-score is a comparison to bone mineral density ofsex and age group population. Interpreting Physician: CAMDEN AVILA M.D. Read on: Jun 12 20159:50A Transcribed by: ramez On: Jun 12 2015 2:45P Approved Electronically by: CAMDEN AVILA M.D. on: Jun 12 20152:51P Attending: ALHAJI PATEL Requesting: DR ALHAJI PATEL Requesting Fax: -- Attending Fax: -- Attending ID: [id number] Requesting ID: [id number] Report To 1 ID: [id number] Report To 1 Name: ALHAJI PATEL Report To 1 FAX: -- [facility] Order #: us Historical Provider MD OBANDO DXA PROCEDURES Final Result documented in this encounter Visit Diagnoses Diagnosis Disorder of bone and cartilage Disorder of bone and cartilage, unspecified Osteoporosis Unspecified osteoporosis documented in this encounter Care Teams Tool Crib Manager Relationship Specialty Start Date End Date Torito Gonzalez MD [address] [place] [address] PCP - General 02/21/12 02/24/17 documented as of this encounter
--- OUTSIDE RECORDS SUMMARY | 2024-11-18 12:01 | XMS_ITS | Encounter Summary ---
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 Gender Identity Not on file Sexual [...] Procedure Name Priority Date/Time Associated Diagnosis Comments PLASMA LUPUS ANTICOAGULANT Routine 05/21/2015 1:46 AM CDT documented in this encounter Results * (ABNORMAL) Plasma lupus anticoagulant (05/21/2015 1:46 AM CDT) Lupus anticoagulant, DRVVT, screen ratio 1 0.0 - 1.1 ratio HISTORICAL RESULTS APTT 33 26 - 36 seconds HISTORICAL RESULTS Comment:The value 33 was bonifacio nged by IF on 05/23/2015 14:42 from: no value Prothrombin time (PT) 10.0(L) 10.3 - 12.8 seconds HISTORICAL RESULTS Comment:The value 10 was bonifacio nged by IF on 05/23/2015 14:58 from: no value INR 1 HISTORICAL RESULTS Comment:The value 1 was child ged by IF on 05/23/2015 14:58 from: no value Lupus anticoagulant, phospholipid neutralization See Below HISTORICAL RESULTS Comment: No evidence of a lupus-like anticoagulant based on results of Prothrombin Time (PT), Activated Partial Thromboplastin Time (APTT), and Dilute Russ[place] Viper Venom Time (DRVVT). Interpretation not reviewed by physician. The value See Below was changed by IF on 05/23/2015 15:11 from: no value Plasma 05/21/2015 1:46 AM CDT Narrative HISTORICAL RESULTS - 05/23/2015 10:11 AM CDT Test performed at [facility] Dept of Lab Medicine and Pathology, [address] [place] [address], [facility], [id number]. us Historical Provider LAB BLOOD ORDERABLES Estefania lopez Result HISTORICAL RESULTS documented in this encounter Visit Diagnoses Not on filedocumented in this encounter Care Teams Inset Cutter Relationship Specialty Start Date End Date Torito Gonzalez MD [address] [place] [address] PCP - General 02/21/12 02/24/17 documented as of this encounter
--- OUTSIDE RECORDS SUMMARY | 2024-11-18 12:01 | XMS_ITS | Encounter Summary ---
Author Organization [facility] Healthcare Address [address] [place] [address] Care Team Providers Care Audiovisual Aids Technician Name Role Phone Torito Gonzalez MD Primary Care Provider [phone]- [phone] Encounter Details Date Type Department Care Team (Late st Contact Info) Description 12/06/2016 7:47 AM GLUING PRESSMAN - 12/06/2016 10:25 AM [facility] Hospital Encounter [facility] Jaciel Espinoza MD [address] [place] [address] [address] Encounter for screening for malignant neoplasm of colon; Third degree hemorrhoids; Diverticulosis of large intestine without perforation or abscess without bleeding; Pure hypercholesterolemia ; Osteoarthritis; Essential (primary) hypertension; Gastro-esophageal reflux disease without esophagitis; History of colonic polyps; Personal history of nicotine dependence; senior living current use of non-steroidal anti-inflammatories (NSAID) Social History Tobacco Use Types Packs/Day Years Used Date Smoking Tobacco: Former Comments:Smoking History Pac ks/day: 0.25 Packs Alcohol Use Standard Drinks/Week Comments No 0 (1 standard drink = 0.6 oz pur e alcohol) Comments Unknown Sex and Gender Information Value Date Recorded Sex Assigned at Not on file 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 Gender Identity Not on file Sexual Orientation Not on file documented as of this encounter Medications at Time of Discharge aspirin 81 mg tablet take 1 tablet by oral route every day 0 0 05/10/2016 amLODIPine (NORVASC) 2.5 mg tablet take 1 tablet by oral route every day 0 05/10/2016 04/18/2020 calcium carbonate-vitamin D3 (CALCIUM 500 + D) [...] 02/16/2011 01/15/2019 documented as of this encounter Procedure Notes * Provider, MD Christie - 12/06/2016 12:00 AM CSTAssociated Order(s): COLONOSCOPY PROCEDURE REPORT Patient: CATALINO CHRIS Service Date: 12/06/2016 Account: [id number] Room No: : 1955 Patient Type: [facility] Attend.: Jaciel Mott M.D. Admit Date: 12/06/2016 Dict.: Jaciel Mott M.D. Disch. Date: SURGEON Jaciel Mott MD HISTORY A 61-year-old female with a prior history of colonic polyps presents for screening for malignant neoplasm. PHYSICAL EXAM Well-developed female. Lungs: Clear. Cardiovascular Exam: Unremarkable. PROCEDURE Colonoscopy was performed with the Olympus video endoscope. Patient was premedicated by Anesthesia. On digital exam, she has got grade 2-3 hemorrhoids. We inserted the endoscope and advanced it to the cecum. Colonic prep was adequate. She has diverticular disease involving the entire colon, however no evidence of inflammation or neoplasia was able to be demonstrated. Patient tolerated procedure without difficulty. POSTOPERATIVE DIAGNOSES Diffuse diverticulosis, hemorrhoidal disease. PLAN Surveillance 5 years in light of past history. Electronically Authenticated and Edited by: Jaciel Mott MD On 12/06/2016 11:09 AM GLUING PRESSMAN Jaciel Mott M.D. /nannette TD: 12/06/2016 10:52 documented in this encounter Plan of Treatment Not on file documented as of this encounter Procedures Procedure Name Priority Date/Time Associated Diagnosis Comments COLONOSCOPY IMAGES 12/06/2016 COLONOSCOPY 12/06/2016 12:00 AM GLUING PRESSMAN documented in this encounter Results * COLONOSCOPY (12/06/2016 12:00 AM GLUING PRESSMAN) Anatomical Region Laterality Modality Other Narrative 12/06/2016 12:00 AM GLUING PRESSMAN Ordered by an unspecified provider. Procedure Note Provider, MD Christie - 12/06/2016 12:00 AM CST PROCEDURE REPORT Patient: CATALINO CHRIS Service Date: 12/06/2016 Account: [id number] Room No: : 1955 Patient Type: [facility] Attend.: Jaciel Mott M.D. Admit Date: 12/06/2016 Dict.: Jaciel Mott M.D. Disch. Date: SURGEON Jaciel Mott MD HISTORY A 61-year-old female with a prior history of colonic polyps presents for screening for malignant neoplasm. PHYSICAL EXAM Well-developed female. Lungs: Clear. Cardiovascular Exam: Unremarkable. PROCEDURE Colonoscopy was performed with the Olympus video endoscope. Patient was premedicated by Anesthesia. On digital exam, she has got grade 2-3 hemorrhoids. We inserted the endoscope and advanced it to the cecum. Colonic prep was adequate. She has diverticular disease involving theentire colon, however no evidence of inflammation or neoplasia was able to be demonstrated. Patient tolerated procedure without difficulty. POSTOPERATIVE DIAGNOSES Diffuse diverticulosis, hemorrhoidal disease. PLAN Surveillance 5 years in light of past history. Electronically Authenticated and Edited by: Jaciel Mott MD On 12/06/2016 11:09 AM GLUING PRESSMAN Jaciel Mott M.D. /nannette TD: 12/06/2016 10:52 us Historical Provider ENDOSCOPY PROCEDURES Estefania l Result * COLONOSCOPY IMAGES (12/06/2016) Anatomical Region Laterality Modality Other Narrative 12/06/2016 Ordered by an unspecified provider. us Historical Provider GI PROCEDURE ORDERABLES F inal Result documented in this encounter Visit Diagnoses Diagnosis Encounter for screening for malignant neoplasm of colon Third degree hemorrhoids Diverticulosis of large intestine without perforation or abscess without bleeding Pure hypercholesterolemia Osteoarthritis Osteoarthrosis, unspecified whether generalized or localized, unspecified site Essential (primary) hypertension Unspecified essential hypertension Gastro-esophageal reflux disease without esophagitis History of colonic polyps Personal history of colonic polyps Personal history of nicotine dependence 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
--- OUTSIDE RECORDS SUMMARY | 2024-11-18 12:01 | XMS_ITS | Encounter Summary ---
Author Organization [facility] Healthcare Address [address] [place] [address] Care Team Providers Care After School Teacher Name Role Phone Torito Gonzalez MD Primary Care Provider [phone]- [phone] Encounter Details Date Type Department Care Team (Late st Contact Info) Description 05/24/2016 1:49 PM CDT - 05/24/2016 11:59 PM CDT Hospital Encounter [facility] JANIE Payan, Alhaji Orozco MD [address] [place] [address] [address] Encounter for screening mammogram for malignant neoplasm of breast Social History Tobacco Use Types Packs/Day Years Used Date Smoking Tobacco: Former Comments:Smoking History Pac ks/day: 0.25 Packs Alcohol Use Standard Drinks/Week Comments No 0 (1 standard drink = 0.6 oz pur e alcohol) Comments Unknown Sex and Gender Information Value Date Recorded Sex Assigned at Not on file 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 RESULT: Craniocaudal and mediolateral oblique views to include tomosynthesis demonstrate heterogeneously dense parenchyma in the breasts bilaterally. No dominant mass, skin thickening, nipple retraction or suspicious cluster of microcalcifications is seen. ??Scattered benign calcifications are again observed bilaterally. ??Faintly opaque nevus on the medial surface of the left breast is noted. Digital technology was employed plus computer-aided detection software (R2) was utilized in interpretation of these images. ??This facility utilizes a reminder system to notify patients of yearly mammograms. IMPRESSION: 1. NO FINDINGS SUSPICIOUS FOR MALIGNANCY. 2. NO SIGNIFICANT CHANGE SINCE MAY 12 OR APRIL 10. 3. RECOMMEND RESCREENING IN ONE YEAR. BI RADS CATEGORY 2 ??BENIGN FINDING. Interpreting Physician: ??DR VERNA GALVEZ M.D. ??Read on: ??May 24 2016 2:17P Transcribed by: ??ileana ??On: May 24 2016 ??6:57P Approved Electronically by: ??LEONOR Leyva, DR GILLESPIE ??on: ??May 25 2016 5:11P Attending: ??DR ALHAJI PAYAN Requesting: ??DR ALHAJI PAYAN Requesting Fax: ??[phone] Attending Fax: ??[phone] Attending ID: ??[id number] Requesting ID: ??[id number] Report To 1 ID: ??[id number] Report To 1 Name: ??DR ALHAJI PAYAN Report To 1 FAX: ??[phone] NextGen Order #: Procedure Note Provider, MD Christie - 03/23/2017 Vm Mammogram Performed by: KAEL SCREENING MAMM W EARLINE BI Acc#: [id number] Screening Mamm Bi Acc#: [id number] DATE OF EXAM: May 24 2016 CLINICAL HISTORY: Screening. RESULT: Craniocaudal and mediolateral oblique views to include tomosynthesisdemonstrate heterogeneously dense parenchyma in the breasts bilaterally.No dominant mass, skin thickening, nipple retraction or suspicious clusterof microcalcifications is seen. Scattered benign calcifications are againobserved bilaterally. Faintly opaque nevus on the medial surface of theleft breast is noted. Digital technology was employed plus computer-aideddetection software (R2) was utilized in interpretation of these images.This facility utilizes a reminder system to notify patients of yearlymammograms. IMPRESSION: 1. NO FINDINGS SUSPICIOUS FOR MALIGNANCY. 2. NO SIGNIFICANT CHANGE SINCE MAY 12 OR APRIL 10. 3. RECOMMEND RESCREENING IN ONE YEAR. BI RADS CATEGORY 2 BENIGNFINDING. Interpreting Physician: DR VERNA GALVEZ M.D. Read on: May 24 20162:17P Transcribed by: [email or web address] On: May 24 2016 6:57P Approved Electronically by: DR VERNA GALVEZ M.D. on: May 25 20165:11P Attending: DR ALHAJI PAYAN Requesting: DR ALHAJI PAYAN Requesting Attending Attending ID: [id number] Requesting ID: [id number] Report To 1 ID: [id number] Report To 1 Name: DR ALHAJI PAYAN Report To 1 FAX: [phone] NextGen Order #: Historical Provider MD OBANDO MAMMO PROCEDURES Estefania l Result documented in this encounter Visit Diagnoses Diagnosis Encounter for screening mammogram for malignant neoplasm of breast documented in this encounter Care Teams After School Teacher Relationship Specialty Start Date End Date Torito Gonzalez MD [address] [place] [address] PCP - General 02/21/12 02/24/17 documented as of this encounter
--- OUTSIDE RECORDS SUMMARY | 2024-11-18 12:01 | XMS_ITS | Encounter Summary ---
Author Organization [facility] Healthcare Address [address] [place] [address] Care Team Providers Care Cooperage Shop Supervisor Name Role Phone Torito Gonzalez MD Primary Care Provider +1- [phone] Encounter Details Date Type Department Care Team (Late st Contact Info) Description 05/21/2015 6:34 AM CDT - 05/21/2015 11:59 PM CDT Hospital Encounter [facility] Alhaji Wilhelm MD [address] [place] [address] [address] Other screening mammogram; Pure hypercholesterolemia ; Pain in joint; Laboratory exam ordered as part of routine general medical examination Social History Tobacco Use Types Packs/Day Years Used Date Smoking Tobacco: Never Assessed Comments Unknown Sex and Gender Information Value Date Recorded Sex Assigned at Not on file 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 Gender Identity Not on file Sexual [...] Comments DIAGNOSTIC MAMMOGRAM BILATERAL W EARLINE Routine 05/21/2015 8:36 AM CDT SERUM LIPID PANEL Routine 05/21/2015 6:4 5 AM CDT SERUM GLUCOSE, FASTING Routine 05/21/2015 6:45 AM CDT SERUM ANTINUCLEAR AB (LASHON) Routine 05/21/2015 6:45 AM CDT SERUM RHEUMATOID FACTOR Routine 05/21/2015 6:40 AM CDT DISCHARGE LABORATORY CUMULATIVE REPORT 05/21/2015 documented in this encounter Results * DIAGNOSTIC MAMMOGRAM BILATERAL W EARLINE (05/21/2015 8:36 AM CDT) Anatomical Region Laterality Modality Breast Bilateral Mammography 05/21/2015 8:36 AM CDT Narrative 05/21/2015 10:23 PM CDT MB Performed by: ?? SCREENING MAMM W EARLINE BI ??Acc#: ??[id number] DATE OF EXAM: ??May 21 2015 CLINICAL HISTORY: Screening. ??Moderately dense parenchyma described on previous mammogram. Mole medial left breast. RESULT: Craniocaudal and mediolateral oblique views to include tomosynthesis demonstrate heterogeneously dense parenchyma in the breasts bilaterally. No dominant mass, skin thickening, nipple retraction or suspicious cluster of microcalcifications is seen. ??There are scattered benign calcifications bilaterally. ??A nevus is present on the medial surface of the left breast, as before. Digital technology was employed plus computer-aided detection software (R2) was utilized in interpretation of these images. ??This facility utilizes a reminder system to notify patients of yearly mammograms. IMPRESSION: 1. NO FINDING SUSPICIOUS FOR MALIGNANCY. 2. NO SIGNIFICANT CHANGE SINCE 04/11/14 OR 04/05/13. BI-RADS CATEGORY 2 - BENIGN Interpreting Physician: ??DR VERNA GALVEZ M.D. ??Read on: ??May 21 2015 8:37A Transcribed by: ??[email or web address] ?? On: May 21 2015 10:51A Approved Electronically by: ??DR VERNA GALVEZ M.D. ??on: ??May 21 2015 10:23P Attending: ??ALHAJI PATEL Requesting: ??DR ALHAJI PATEL Requesting Fax: ??-- Attending Fax: ??-- Attending ID: ??[id number] Requesting ID: ??[id number] Report To 1 ID: ??[id number] Report To 1 Name: ??ALHAJI PATEL Report To 1 FAX: ??-- NextGen Order #: Procedure Note Provider, MD Christie - 03/23/2017 MB Performed by: SCREENING MAMM W EARLINE BI Acc#: [id number] DATE OF EXAM: May 21 2015 CLINICAL HISTORY: Screening. Moderately dense parenchyma described on previous mammogram.Mole medial left breast. RESULT: Craniocaudal and mediolateral oblique views to include tomosynthesisdemonstrate heterogeneously dense parenchyma in the breasts bilaterally.No dominant mass, skin thickening, nipple retraction or suspicious clusterof microcalcifications is seen. There are scattered benign calcificationsbilaterally. A nevus is present on the medial surface of the left breast,as before. Digital technology was employed plus computer-aided detectionsoftware (R2) was utilized in interpretation of these images. Thisfacility utilizes a reminder system to notify patients of yearlymammograms. IMPRESSION: 1. NO FINDING SUSPICIOUS FOR MALIGNANCY. 2. NO SIGNIFICANT CHANGE SINCE 04/11/14 OR 04/05/13. BI-RADS CATEGORY 2 -BENIGN Interpreting Physician: DR VERNA GALVEZ M.D. Read on: May 21 20158:37A Transcribed by: [email or web address] On: May 21 2015 10:51A Approved Electronically by: DR VERNA GALVEZ M.D. on: May 21 201510:23P Attending: ALHAJI PATEL Requesting: DR ALHAJI PATEL Requesting Fax: -- Attending Fax: -- Attending ID: [id number] Requesting ID: [id number] Report To 1 ID: [id number] Report To 1 Name: ALHAJI PATEL Report To 1 FAX: -- NextGen Order #: Historical Provider MD OBANDO MAMMO PROCEDURES Estefania l Result * (ABNORMAL) Serum antinuclear ab (LASHON) (05/21/2015 6:45 AM CDT) LASHON, qual Positive(A ) Negative HISTORICAL RESULTS Comment:Test performed at [facility], [address] [place] [address], [place]., [address] Serum 05/21/2015 6:45 AM CDT us Historical Provider LAB BLOOD ORDERABLES Estefania lopez Result HISTORICAL RESULTS * Serum lipid panel (05/21/2015 6:45 AM CDT) Cholesterol 195 40 - 199 mg/dl HISTORICAL RESULTS Comment: Interpretive Data Desirable: ??Less than 200 mg/dl ? Borderline High: ?200 - 239 mg/dl ? High: ??Greater than ?? 239 mg/dl Current interpretive data was last revised on 2015. Triglycerides 138.0 <=150.0 mg/dl HISTORICAL RESULTS Comment: Interpretive Data Normal: ? Less than 150 mg/dl Borderline high: ??105-199 mg/dl ?? High: ? 200-499 mg/dl ? Very high: ??Greater than or equal to 500 mg/dl Current interpretive data was last revised on 2015. HDL 57 40 - 60 mg/dl HISTORICAL RESULTS Comment: Interpretive Data Low HDL Cholesterol: ? Less than 40 mg/dl Normal HDL Cholesterol: ??40-60 mg/dl High HDL Cholesterol: ?Greater than 60 mg/dl Current interpretive data was last revised on 2015. LDL 110 mg/dl HISTORICAL RESULTS Comment: Interpretive Data Optimal ? Less than [...] data was last revised on 2015. Non-HDL cholesterol, calculated 138 mg/dl HISTORICAL RESULTS Comment: Interpretive Data Optimal ? Less than 130 mg/dL Low Risk ?130 - 159 mg/dL Moderate Risk ? 160 - 189 mg/dL High Risk ? Greater than or equal to 190 mg/dL Current interpretive data was last revised on 2015. Serum 05/21/2015 6:45 AM CDT Historical Provider MD LAB BLOOD ORDERABLES Estefania l Result Performing Organization Address [facility] de Phone Number HISTORICAL RESULTS * Serum glucose, fasting (05/21/2015 6:45 AM CDT) Glucose, fasting 92 70 - 99 mg/dl HISTORICAL RESULTS Serum 05/21/2015 6:45 AM CDT Historical Provider MD LAB BLOOD ORDERABLES Estefania l Result Performing Organization Address [facility] de Phone Number HISTORICAL RESULTS * Serum rheumatoid factor (05/21/2015 6:40 AM CDT) Rheumatoid factor, quant <20 0 - 19 IUnits/ml HISTORICAL RESULTS Comment:Test performed at [facility], [address] [place] [address], [place]., [address] Serum 05/21/2015 6:40 AM CDT us Historical Provider LAB BLOOD ORDERABLES Estefania l Result HISTORICAL RESULTS * DISCHARGE LABORATORY CUMULATIVE REPORT (05/21/2015) Narrative 05/21/2015 Ordered by an unspecified provider. Historical Provider LAB BLOOD ORDERABLES Estefania l Result documented in this encounter Visit Diagnoses Diagnosis Other screening mammogram Pure hypercholesterolemia Pain in joint Laboratory exam ordered as part of routine general medical examination Laboratory examination ordered as part of a routine general medical examination documented in this encounter Care Teams Cooperage Shop Supervisor Relationship Specialty Start Date End Date Torito Gonzalez MD [address] [place] [address] PCP - General 02/21/12 02/24/17 documented as of this encounter
--- OUTSIDE RECORDS SUMMARY | 2024-11-18 12:01 | XMS_ITS | Encounter Summary ---
Author Organization [facility] Address [address] [place] [address] Care Team Providers Care Associate Professor Of Violin Name Role Phone Torito Gonzalez MD Primary Care Provider +1- [phone] Reason for Referral * OBGYN (Routine) - Closed Specialty Diagnoses / Procedures Referred By Contac t Referred To Contact Diagnoses Screening for osteoporosis Procedures Dexa Axial Skeleton Bone Density 1 Or 2 Site Alhaji Payan MD Phone: tel: fax: Referral ID Status Reason Start Date Expiration Date Visits Re quested Visits Authorized [id number] Closed 06/27/2017 12/24/2017 1 1 Reason for Visit * Reason Comments Gynecologic Exam Other Perineal lump Encounter Details Date Type Department Care Team (Late st Contact Info) Description 05/16/2017 1:30 PM CDT Office Visit [facility] [address] [place] [address] Alhaji Payan MD [address] [place] [address] [address] [place] [address] Well woman exam (Primary Dx); Visit for screening mammogram; Screening for osteoporosis; Osteopenia of spine; Chronic idiopathic constipation Social History Tobacco Use Types Packs/Day Years Used Date Smoking Tobacco: Former Smokeless Tobacco: Never Comments:Smoking History Pac ks/day: 0.25 Packs Alcohol Use Standard Drinks/Week Comments No 0 (1 standard drink = 0.6 oz pur e alcohol) Comments No Sex and Gender Information Value Date Recorded Sex Assigned at Not on file 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 Gender Identity Not on file Sexual Orientation Not on file documented as of this encounter Last Filed Vital Signs Vital Sign Reading Time Taken Comments Blood Pressure 122/82 05/16/2017 1:26 PM CDT Pulse - - Temperature - - Respiratory Rate - - Oxygen Saturation - - Inhaled Oxygen Concentration - - Weight 76.2 kg (168 lb) 05/16/2017 1:26 PM CDT Height 165.1 cm (5' 5 ) 05/16/2017 1:26 PM CDT Body Mass Index 27.96 05/16/2017 1:26 PM CDT documented in this encounter Progress Notes * Alhaji Payan MD - 05/16/2017 1:30 PM CDT Well Woman Exam Subjective: Pateint presents for: Gynecologic Exam and Other (Perineal lump) Gabbie Chris is a 61 y.o. year old female who presents for a well woman exam. She states that she feels a blockage at her vagina. No bleeding or discharge. Contraception:Menopause. No LMP recorded. Patient has had a hysterectomy. Past Medical History: Diagnosis Date ??? HX OTHER MEDICAL 1976 ; Outcome: 7 lb(s) 2 oz Male ??? HX OTHER MEDICAL 1970 ; Outcome: 7 lb(s) 4 oz Female Past Surgical History: Procedure Laterality Date ??? APPENDECTOMY 1995 Appendectomy ??? CARDIAC CATHETERIZATION 2009 HEART CATH ??? OTHER SURGICAL HISTORY 1976 : ??? OTHER SURGICAL HISTORY 1970 : ??? TOTAL ABDOMINAL HYSTERECTOMY W/ BILATERAL SALPINGOOPHORECTOMY 1995 [place]/BSO Current Outpatient Prescriptions: ??? amLODIPine (NORVASC) 2.5 mg tablet, take 1 tablet by oral route every day, Disp: , Rfl: 0 ??? aspirin 81 mg tablet, take 1 tablet by oral route every day, Disp: 0, Rfl: 0 ??? BIOTIN ORAL, Take 1,000 mcg by mouth 3 (three) times a day., Disp: , Rfl: ??? calcium carbonate-vitamin D3 (CALCIUM 500 + D) 1,250mg (500mg elemental) - 200 units per tablet, take 2 Tablet by Oral route every day, Disp: 0, Rfl: 0 ??? multivitamin tablet tablet, take 1 tablet by oral route every day with food, Disp: 0, Rfl: 0 ??? naproxen sodium (ALEVE) 220 mg capsule, 220 mg., Disp: 0, Rfl: 0 ??? simvastatin (ZOCOR) 5 mg tablet, take 1 tablet by oral route every day in the evening, Disp: , Rfl: 0 ??? estrogens, conjugated, (PREMARIN) 0.3 mg tablet, TAKE 1 TABLET DAILY (Patient not taking: Reported on 05/16/2017 ), Disp: 90, Rfl: 1 ??? omeprazole (PriLOSEC) 20 mg capsule, take 1 capsule (20MG) by oral route every day before a meal (Patient not taking: Reported on 05/16/2017 ), Disp: , Rfl: 0 No Known Allergies [...] chest pain, palpitations and leg swelling. Gastrointestinal: Positive for constipation. Negative for abdominal pain, blood in stool, diarrhea,nausea and vomiting. Endocrine: Negative for cold intolerance, heat intolerance and polydipsia. Genitourinary: Negative for dyspareunia, dysuria, frequency, hematuria, menstrual problem, pelvic pain, vaginal bleeding and vaginal discharge. Musculoskeletal: Positive for back pain and joint swelling. Negative for arthralgias and myalgias. Skin: Negative for color change and rash. Neurological: Positive for headaches. Negative for dizziness and numbness. Hematological: Does not bruise/bleed easily. Psychiatric/Behavioral: Negative for dysphoric mood, sleep disturbance and suicidal ideas. The patient is not nervous/anxious. Objective: BP 122/82 (BP Location: Left arm) Ht 165.1 cm (5' 5 ) Wt 76.2 kg (168 lb) BMI 27.96 kg/m?? Physical Exam Constitutional: She is oriented to person, place, and time. She appears well- developed and well-nourished. HENT: Head: Normocephalic. Eyes: Conjunctivae are normal. Neck: Neck supple. No thyromegaly present. Cardiovascular: Normal rate and regular rhythm. Pulmonary/Chest: Effort normal and breath sounds normal. Abdominal: Soft. She exhibits no mass. There is no tenderness. There is no rebound. No hernia. Genitourinary: Vagina normal. There is no lesion on the right labia. There is no lesion on the leftlabia. Right adnexum displays no mass and no tenderness. Left adnexum displays no mass and no tenderness. No vaginal discharge found. Genitourinary Comments: Uterus surgically absent. RV deferred secondary to colonoscopy done this year. Musculoskeletal: She exhibits no edema or [...] Diagnoses and all orders for this visit: 1. Well woman exam (Primary) 2. Visit for screening mammogram - Screening Mammogram bilateral; Future 3. Screening for osteoporosis - Dexa Axial Skeleton Bone Density 1 Or 2 Site; Future 4. Osteopenia of spine Comments: repeat Dexa and check Vit. D. 5. Chronic idiopathic constipation Comments: with stool bulging into vagina; will begin Linzess 145mg daily with food; call if desires script. Reassurance that no lesion. Other orders - MAMMOGRAPHY - DEXA SCAN - COLONOSCOPY - MAMMOGRAPHY - PAP SMEAR Recommended screenings and preventive care discussed: Breast cancer: Breast Self Exam encouraged. Pap deferred. Calcium and vitamin D BID recommended and cholesterol followed by PCP. Low fat, low carbohydrate diet and exercise encouraged. Return in about 1 year (around 05/16/2018) for annual exam. Alhaji Payan MD 05/16/2017 documented in this encounter Plan of Treatment Not on file documented as of this encounter Procedures Procedure Name Priority Date/Time Associated Diagnosis Comments COLONOSCOPY Routine 12/06/2016 MAMMOGRAPHY Routine 04/22/2016 MAMMOGRAPHY Routine 04/22/2016 DEXA SCAN Routine 06/12/2015 PAP SMEAR Routine 02/16/2011 documented in this encounter Results * Screening Mammogram bilateral (06/13/2017 7:02 PM CDT) Anatomical Region Laterality Modality Breast Bilateral Mammography 06/13/2017 7:02 PM CDT Narrative 06/13/2017 7:02 PM CDT SCREENING MAMM W EARLINE BI ??Acc#: ??[id number] DATE OF EXAM: ??Jun 13 2017 ?? [...] on: ??Jun 13 2017 ??2:03P Transcribed by: ??PSC ??On: Jun 13 2017 ??2:01P Approved Electronically by: ??BETTY HERNANDEZ M.D. ??on: ??Jun 13 2017 ??2:01P Ordering DR: DR ALHAJI PAYAN Attending DR: DR ALHAJI PAYAN Attending: ??DR ALHAJI PAYAN Requesting: ??DR ALHAJI PAYAN Requesting Fax: ??[phone] Attending Fax: ??[phone] Attending ID: ??[id number] Requesting ID: ??[id number] Report To 1 ID: ??[id number] Report To 1 Name: ??DR ALHAJI PAYAN Report To 1 FAX: ??[phone] [employer] Order #: ??[id number] Procedure Note Miscellaneous, Not In File / Provider, MD Christie - 06/15/2017 SCREENING MAMM W EARLINE BI Acc#: [id number] DATE OF EXAM: Jun 13 2017 SCREENING [...] DR ALHAJI PAYAN Requesting Attending Attending ID: [id number] Requesting ID: [id number] Report To 1 ID: [id number] Report To 1 Name: DR ALHAJI PAYAN Report To 1 FAX: [phone] [employer] Order #: [id number] Result [facility] Alhaji Payan MD IMG MAMMO PROCEDURES Final Result * COLONOSCOPY (12/06/2016) Colonoscopy Unknown Anatomical Region Laterality Modality Other Result [facility] Provider HEALTH MAINTENANCE Final Result * MAMMOGRAPHY (04/22/2016) Pathologist [facility] SCRIBED BI-RADS 2 Anatomical Region Laterality Modality Other Result [facility] HEALTH MAINTENANCE Final Result * MAMMOGRAPHY (04/22/2016) Mammogram Normal Anatomical Region Laterality Modality Other Result [facility] HEALTH MAINTENANCE Final Result * DEXA SCAN (06/12/2015) DEXA Scan Abnormal Comment:Osteopenia of the sp ine, normal hip Anatomical Region Laterality Modality Other Result [facility] HEALTH MAINTENANCE Final Result * PAP SMEAR (02/16/2011) Pap smear Normal Comment:WNL, negative HPV Result [facility] Provider HEALTH MAINTENANCE Final Result documented in this encounter Visit Diagnoses Diagnosis Well woman exam- Primary Routine general medical examination at a health care facility Visit for screening mammogram Screening for osteoporosis Special screening for osteoporosis Osteopenia of spine Chronic idiopathic constipation Unspecified constipation Visit for screening mammogram Screening for osteoporosis Special screening for osteoporosis documented in this encounter Historical Medications * This list may reflect changes made after this encounter. BIOTIN ORAL Take 1,000 mcg by mouth 3 (three) times a day. 05/22/2018 added in this encounter Orders Imaging Orders Without Results Count Last Order ed Date First Ordered Date DEXA AXIAL SKELETON BONE DEN SITY 1 OR MORE SITES 1 05/16/2017 documented in this encounter Care Teams Associate Professor Of Violin Relationship Specialty Start Date End Date Gonzalez, Torito K., MD [address] [place] [address] PCP - General 02/25/17 documented as of this encounter
--- OUTSIDE RECORDS SUMMARY | 2024-11-18 12:01 | XMS_ITS | Encounter Summary ---
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
--- OUTSIDE RECORDS SUMMARY | 2024-11-18 12:02 | XMS_ITS | Encounter Summary ---
Author Organization [facility] Address [address] [place] [address] Care Team Providers Care Procurement Professional Logistics Name Role Phone Ventura Gonzalez MD Primary Care Provider +1- [phone] Encounter Details Date Type Department Care Team (Late st Contact Info) Description 10/08/2014 6:00 AM CITY COUNCIL MEMBER - 10/08/2014 11:59 PM CITY COUNCIL MEMBER Hospital Encounter [facility] Ventura Gonzalez MD [address] [place] [address] Backache; Chest pain; Other symptoms involving respiratory system and chest; Thoracic spondylosis without myelopathy; Scoliosis (and kyphoscoliosis), idiopathic Social History Tobacco Use Types Packs/Day Years Used Date Smoking Tobacco: Never Assessed Comments Unknown Sex and Gender Information Value Date Recorded Sex Assigned at Not on file Legal Sex Female 1:11 AM CITY COUNCIL MEMBER Gender Identity Not on file Sexual Orientation Not on file documented as of this encounter Medications at Time of Discharge estrogens, conjugated, (PREMARIN) 0.3 mg tablet TAKE 1 TABLET DAILY 90 1 03/25/2014 05/22/2018 omeprazole (PriLOSEC) 20 mg capsule [...] Diagnosis Comments XR SPINE THORACIC 3 VIEWS Routine 10/08/2014 6:47 AM CITY COUNCIL MEMBER XR CHEST PA LATERAL 2 VIEWS Routine 10/08/2014 6:47 AM CITY COUNCIL MEMBER documented in this encounter Results * XR Spine Thoracic 3 View (10/08/2014 6:47 AM CITY COUNCIL MEMBER) Anatomical Region Laterality Modality Spine N/A Radiographic Angeline ging 10/08/2014 6:47 AM CITY COUNCIL MEMBER Narrative 10/08/2014 10:54 PM CITY COUNCIL MEMBER XR Thoracic Spine Routine [id number] ??Acc#: ??[id number] DATE OF EXAM: ??Oct 08 2014 CLINICAL HISTORY: Back pain. RESULT: AP and lateral views obtained, compared with 10/04/13. ??Mild spurring is once again noted. ??Vertebral body heights are maintained. ??No acute fracture or subluxation is identified. ??Some accentuation of thoracic kyphosis, as previously. ??Minimal thoracic dextroscoliosis, as previously. IMPRESSION: 1. ??DEGENERATIVE CHANGES. ??SIMILAR APPEARANCE TO 10/04/13. 2. ??MINIMAL THORACIC SCOLIOSIS. Interpreting Physician: ??BETTY HERNANDEZ M.D. ??Read on: ??Oct 08 2014 ??8:10A Transcribed by: ??[facility] ??On: Oct 08 2014 12:17P Approved Electronically by: ??BETTY HERNANDEZ M.D. ??on: ??Oct 08 2014 10:54P Ordering DR: DR VENTURA GONZALEZ Attending DR: DR VENTURA GONZALEZ Procedure Note Provider, MD Christie - 03/23/2017 XR Thoracic Spine Routine [id number] Acc#: [id number] DATE OF EXAM: Oct 08 2014 CLINICAL HISTORY: Back pain. RESULT: AP and lateral views obtained, compared with 10/04/13. Mild spurring isonce again noted. Vertebral body heights are maintained. No acutefracture or subluxation is identified. Some accentuation of thoracickyphosis, as previously. Minimal thoracic dextroscoliosis, aspreviously. IMPRESSION: 1. DEGENERATIVE CHANGES. SIMILAR APPEARANCE TO 10/04/13. 2. MINIMAL THORACIC SCOLIOSIS. Interpreting Physician: BETTY HERNANDEZ M.D. Read on: Oct 08 2014 8:10A Transcribed by: sandra On: Oct 08 2014 12:17P Approved Electronically by: BETTY HERNANDEZ M.D. on: Oct 08 2014 10:54P Ordering DR: DR VENTURA GONZALEZ Attending DR: DR VENTURA GONZALEZ us Historical Provider MD OBANDO XR PROCEDURES Final R esult * XR Chest PA Lateral 2 View (10/08/2014 6:47 AM CITY COUNCIL MEMBER) Anatomical Region Laterality Modality Body, Chest N/A Radiographic Angeline ging 10/08/2014 6:47 AM CITY COUNCIL MEMBER Narrative 10/08/2014 10:54 PM CITY COUNCIL MEMBER XR Chest 2 Views ?[id number] ??Acc#: ??[id number] DATE OF EXAM: ??Oct 08 2014 CLINICAL HISTORY: Chest pain and congestion. RESULT: PA and lateral projections obtained, compared with 03/25/11. ??Cardiac size and pulmonary vascularity are within the range of normal. ??Lungs are free of confluent infiltrates. ??Costophrenic angles are sharp. Arteriosclerotic changes of the aorta. ??Degenerative changes of the thoracic spine with spurring. ??Some accentuation of thoracic kyphosis. IMPRESSION: NO ACUTE PULMONARY DISEASE. Interpreting Physician: ??BETTY HERNANDEZ M.D. ??Read on: ??Oct 08 2014 12:18P Transcribed by: ??sandra ??On: Oct 08 2014 12:18P Approved Electronically by: ??BETTY HERNANDEZ M.D. ??on: ??Oct 08 2014 10:54P Ordering DR: DR VENTURA GONZALEZ Attending DR: DR VENTURA GONZALEZ Procedure Note Provider, MD Christie - 03/23/2017 XR Chest 2 Views [id number] Acc#: [id number] DATE OF EXAM: Oct 08 2014 CLINICAL HISTORY: Chest pain and congestion. RESULT: PA and lateral projections obtained, compared with 03/25/11. Cardiac sizeand pulmonary vascularity are within the range of normal. Lungs are freeof confluent infiltrates. Costophrenic angles are sharp. Arterioscleroticchanges of the aorta. Degenerative changes of the thoracic spine withspurring. Some accentuation of thoracic kyphosis. IMPRESSION: NO ACUTE PULMONARY DISEASE. Interpreting Physician: BETTY HERNANDEZ M.D. Read on: Oct 08 2014 12:18P Transcribed by: sandra On: Oct 08 2014 12:18P Approved Electronically by: BETTY HERNANDEZ M.D. on: Oct 08 2014 10:54P Ordering DR: DR VENTURA GONZALEZ Attending DR: DR VENTURA GONZALEZ us Historical Provider MD OBANDO XR PROCEDURES Final R esult documented in this encounter Visit Diagnoses Diagnosis Backache Unspecified backache Chest pain Unspecified chest pain Other symptoms involving respiratory system and chest Thoracic spondylosis without myelopathy Scoliosis (and kyphoscoliosis), idiopathic documented in this encounter Care Teams Procurement Professional Logistics Relationship Specialty Start Date End Date Ventura Gonzalez MD [address] [place] [address] PCP - General 02/21/12 02/24/17 documented as of this encounter
--- OUTSIDE RECORDS SUMMARY | 2024-11-18 12:02 | XMS_ITS | Encounter Summary ---
Author Organization [facility] Healthcare Address [address] [place] [address] Care Team Providers Care Hat And Cap Parts Cutter Hand Name Role Phone Torito Gonzalez MD Primary Care Provider +1- [phone] Encounter Details Date Type Department Care Team ([facility] st Contact Info) Description 05/06/2014 1:35 PM CDT - 05/06/2014 11:59 PM CDT Hospital Encounter [facility] Alhaji Wilhelm MD [address] [place] [address] [address] Osteoporosis Social History Tobacco Use Types Packs/Day Years Used Date Smoking Tobacco: Never Assessed Comments Unknown Sex and Gender Information Value Date Recorded Sex Assigned at Not on file Legal Sex Female 1:11 AM LOG WASHER Gender Identity Not on file Sexual Orientation [...] of this encounter Visit Diagnoses Diagnosis Osteoporosis Unspecified osteoporosis documented in this encounter Care Teams Hat And Cap Parts Cutter Hand Relationship Specialty Start Date End Date Torito Gonzalez MD [address] [place] [address] PCP - General 02/21/12 02/24/17 documented as of this encounter
--- OUTSIDE RECORDS SUMMARY | 2024-11-18 12:02 | XMS_ITS | Encounter Summary ---
Author Organization [facility] Healthcare Address [address] [place] [address] Care Team Providers Care Crystal Growing Technician Name Role Phone Torito Gonzalez MD Primary Care Provider +1- [phone] Encounter Details Date Type Department Care Team ([facility] st Contact Info) Description 11/15/2014 7:44 AM WALL TAPER - 11/15/2014 11:59 PM WALL TAPER Hospital Encounter [facility] JANIE Payan, Alhaji Orozco MD [address] [place] [address] [address] Osteoporosis Social History Tobacco Use Types Packs/Day Years Used Date Smoking Tobacco: Never Assessed Comments Unknown Sex and Gender Information Value Date Recorded Sex Assigned at Not on file Legal Sex Female 1:11 AM WALL TAPER Gender Identity Not on file Sexual Orientation [...] osteoporosis documented in this encounter Care Teams Crystal Growing Technician Relationship Specialty Start Date End Date Torito Gonzalez MD [address] [place] [address] PCP - General 02/21/12 02/24/17 documented as of this encounter
--- OUTSIDE RECORDS SUMMARY | 2024-11-18 12:02 | XMS_ITS | Encounter Summary ---
Author Organization [facility] Healthcare Address [address] [place] [address] Care Team Providers Care Director Emergency Department Name Role Phone Torito Gonzalez MD Primary Care Provider +1- [phone] Encounter Details Date Type Department Care Team ([facility] st Contact Info) Description 04/11/2014 7:19 AM CDT - 04/11/2014 11:59 PM CDT Hospital Encounter [facility] Alhaji Wilhelm MD [address] [place] [address] [address] Other screening mammogram; Other abnormal findings on radiological examination of breast Social History Tobacco Use Types Packs/Day Years Used Date Smoking Tobacco: Never Assessed Comments Unknown Sex and Gender Information Value Date Recorded Sex Assigned at Not on file Legal Sex Female 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 DATE OF EXAM: ??Apr 11 2014 CLINICAL HISTORY: Screen. RESULT: Two views of each breast correlated to the studies dating back through 03/29/11 demonstrate a moderately dense fibroglandular ??pattern bilaterally. ??There are benign breast calcifications, but no suspicious calcification or mass is seen to suggest mammographic evidence of malignancy. ??A small benign appearing well circumscribed nodular density in the medial posterior aspect of the left breast on the craniocaudal view measuring 6 mm is unchanged as well. Digital technology was employed plus computer-aided detection software (R2) was utilized in interpretation of these images. This facility utilizes a reminder system to notify patients of yearly mammograms. IMPRESSION: 1. NO DEFINITIVE MAMMOGRAPHIC EVIDENCE OF MALIGNANCY. 2. ANNUAL FOLLOW UP RECOMMENDED. BI-RADS CATEGORY 2: BENIGN FINDINGS. Interpreting Physician: ??ELLIE LAMAR M.D. ??Read on: ??Apr 11 2014 ??7:52A Transcribed by: ??VLDesirae ??On: Apr 11 2014 12:07P Approved Electronically by: ??ELLIE LAMAR M.D. ??on: ??Apr 11 2014 ??3:58P Ordering DR: DR ALHAJI PATEL Attending DR: DR ALHAJI PATEL Procedure Note Provider, MD Christie - 03/23/2017 Vrl Screening Mamm Bi Acc#: [id number] Performed by: DATE OF EXAM: Apr 11 2014 CLINICAL HISTORY: Screen. RESULT: Two views of each breast correlated to the studies dating back through03/29/11 demonstrate a moderately dense fibroglandular pattern bilaterally.There are benign breast calcifications, but no suspicious calcificationor mass is seen to suggest mammographic evidence of malignancy. A smallbenign appearing well circumscribed nodular density in the medialposterior aspect of the left breast on the craniocaudal view measuring 6mm is unchanged as well. Digital technology was employed pluscomputer-aided detection software (R2) was utilized in interpretation ofthese images. This facility utilizes a reminder system to notify patientsof yearly mammograms. IMPRESSION: 1. NO DEFINITIVE MAMMOGRAPHIC EVIDENCE OF MALIGNANCY. 2. ANNUAL FOLLOW UP RECOMMENDED. BI-RADS CATEGORY 2: BENIGN FINDINGS. Interpreting Physician: ELLIE LAMAR M.D. Read on: Apr 11 2014 7:52A Transcribed by: LESTER On: Apr 11 2014 12:07P Approved Electronically by: ELLIE LAMAR M.D. on: Apr 11 2014 3:58P Ordering DR: DR ALHAJI PATEL Attending DR: DR ALHAJI PATEL us Historical Provider MD OBANDO MAMMO PROCEDURES Estefania l Result documented in this encounter Visit Diagnoses Diagnosis Other screening mammogram Other abnormal findings on radiological examination of breast documented in this encounter Care Teams Director Emergency Department Relationship Specialty Start Date End Date Torito Gonzalez MD [address] [place] [address] PCP - General 02/21/12 02/24/17 documented as of this encounter
--- OUTSIDE RECORDS SUMMARY | 2024-11-18 12:03 | XMS_ITS | Encounter Summary ---
Author Organization [facility] Healthcare Address [address] [place] [address] Care Team Providers Care Sales Representative Graphic Art Name Role Phone Torito Gonzalez MD Primary Care Provider +1- [phone] Encounter Details Date Type Department Care Team (Late st Contact Info) Description 03/29/2011 12:01 AM CDT - 03/29/2011 11:59 PM CDT Hospital Encounter [facility] Alhaji Wilhelm MD [address] [place] [address] [address] Other screening mammogram Social History Tobacco Use Types Packs/Day Years Used Date Smoking Tobacco: Never Assessed Comments Unknown Sex and Gender Information Value Date Recorded Sex Assigned at Not on file Legal Sex Female 1:11 AM AFTER SCHOOL CAREGIVER Gender Identity Not on file Sexual Orientation Not on file documented as of this encounter Medications at Time of Discharge simvastatin (ZOCOR) 5 mg tablet take 1 tablet by oral route every day in the evening 0 02/16/2011 01/15/2019 documented as of this encounter Plan of Treatment Not on file documented as of this encounter Visit Diagnoses Diagnosis Other screening mammogram documented in this encounter Care Teams Sales Representative Graphic Art Relationship Specialty Start Date End Date Torito Gonzalez MD [address] [place] [address] PCP - General 09/30/09 02/20/12 documented as of this encounter
--- OUTSIDE RECORDS SUMMARY | 2024-11-18 12:03 | XMS_ITS | Encounter Summary ---
Author Organization [facility] Healthcare Address [address] [place] [address] Care Team Providers Care Marketing Technology Specialist Name Role Phone Unavailable Primary Care Provider Unavailabl e Encounter Details Date Type Department Care Team (Late st Contact Info) Description 03/24/2009 12:01 AM CDT - 03/24/2009 11:59 PM CDT Hospital Encounter [facility] Alhaji Wilhelm MD [address] [place] [address] [address] Other screening mammogram Social History Tobacco Use Types Packs/Day Years Used Date Smoking Tobacco: Never Assessed Comments Unknown Sex and Gender Information Value Date Recorded Sex Assigned at Not on file Legal Sex Female 1:11 AM WAREHOUSE RECORD CLERK Gender Identity Not on file Sexual Orientation Not on file documented as of this encounter Plan of Treatment Not on file documented as of this encounter Visit Diagnoses Diagnosis Other screening mammogram documented in this encounter
--- OUTSIDE RECORDS SUMMARY | 2024-11-18 12:03 | XMS_ITS | Encounter Summary ---
Author Organization [facility] Healthcare Address [address] [place] [address] Care Team Providers Care Glass Technician Name Role Phone Unavailable Primary Care Provider Unavailabl e Encounter Details Date Type Department Care Team ([facility] st Contact Info) Description 07/17/2007 11:00 AM CDT - 07/17/2007 11:59 PM CDT Hospital Encounter [facility] Torito Reynoso MD [address] [place] [address] Social History Tobacco Use Types Packs/Day Years Used Date Smoking Tobacco: Never Assessed Comments Unknown Sex and Gender Information Value Date Recorded Sex Assigned at Not on file Legal Sex Female 1:11 AM GREEN MEAT PACKER Gender Identity Not on file Sexual Orientation Not on file documented as of this encounter Plan of Treatment Not on file documented as of this encounter Visit Diagnoses Not on filedocumented in this encounter
--- OUTSIDE RECORDS SUMMARY | 2024-11-18 12:03 | XMS_ITS | Encounter Summary ---
Author Organization [facility] Healthcare Address [address] [place] [address] Care Team Providers Care Traffic Survey Technician Name Role Phone Torito Gonzalez MD Primary Care Provider +1- [phone] Encounter Details Date Type Department Care Team (Late st Contact Info) Description 02/13/2010 12:44 PM CDT - 02/13/2010 11:59 PM CDT Hospital Encounter [facility] Torrey Floyd MD [address] [place] [address] [address] Other chest pain; Encounter for long-term (current) use of other medications; Benign essential hypertension Social History Tobacco Use Types Packs/Day Years Used Date Smoking Tobacco: Never Assessed Comments Unknown Sex and Gender Information Value Date Recorded Sex Assigned at Not on file Legal Sex Female 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
--- OUTSIDE RECORDS SUMMARY | 2024-11-18 12:03 | XMS_ITS | Encounter Summary ---
Author Organization [facility] Healthcare Address [address] [place] [address] Care Team Providers Care Relocation Manager Name Role Phone Torito Gonzalez MD Primary Care Provider +1- [phone] Encounter Details Date Type Department Care Team (Latest Contact Info) Description 01/10/2014 6:01 AM DATA MINER - 01/10/2014 11:59 PM DATA MINER Hospital Encounter [facility] Janice Chavez Benign essential hypertension; Pure hypercholesterolemia Social History Tobacco Use Types Packs/Day Years Used Date Smoking Tobacco: Never Assessed Comments Unknown Sex and Gender Information Value Date Recorded Sex Assigned at Not on file Legal Sex Female 1:11 AM DATA MINER Gender Identity Not on file Sexual Orientation Not on file documented as of this encounter Medications at Time of Discharge omeprazole (PriLOSEC) 20 mg capsule take 1 [...] Name Priority Date/Time Associated Diagnosis Comments SERUM LIPID PANEL Routine 01/10/2014 6:0 5 AM DATA MINER DISCHARGE LABORATORY CUMULATIVE REPORT Routine 01/10/2014 12:00 AM DATA MINER documented in this encounter Results * Serum lipid panel (01/10/2014 6:05 AM DATA MINER) Cholesterol 147 mg/dl HISTORIC AL RESULTS Comment: DESIRABLE = LESS THAN 200 MG/DL BORDERLINE HIGH = 200-239 MG/DL HIGH= GREATER THAN 239 MG/DL Triglycerides 83 mg/dl HISTOR ICAL RESULTS Comment: Current guidelines recommend that lipid screen be performed on fasting blood samples for heart risk stratification. NORMAL = LESS THAN 150 MG/DL BORDERLINE HIGH = 150-199 MG/DL HIGH = 200-499 MG/DL VERY HIGH = GREATER THAN OR EQUAL TO 500 MG/DL HDL 53 mg/dl HISTORICAL RESULTS Comment: LOW HDL CHOLESTEROL = Less than 40 mg/dL NORMAL HDL CHOLESTEROL = 40-59 mg/dL HIGH HDL CHOLESTEROL = Greater than 59 mg/dL Non-HDL cholesterol, calculated 94 mg/dl HISTORICAL RESULTS Comment: OPTIMAL LESS THAN 130 LOW RISK 130 -159 MODERATE RISK 160 - 189 HIGH RISK GREATER THAN OR EQUAL TO 190 LDL, calculated 77 HIST ORICAL RESULTS Comment: LESS THAN 100 MG/DL OPTIMAL 100 - 129 MG/DL NEAR OPTIMAL / ABOVE OPTIMAL 130 - 159 MG/DL BORDERLINE HIGH 160 - 189 MG/DL HIGH GREATER THAN OR = 190 MG/DL VERY HIGH LDL VALUES ARE NOT VALID WHEN THE TOTAL TRIGLYCERIDE IS GREATER THAN 300 MG/DL. Serum 01/10/2014 6:05 AM DATA MINER us Janice Waldrop LAB BLOOD ORDERABLES Final Resul t HISTORICAL RESULTS * Discharge Laboratory Cumulative Report (01/10/2014 12:00 AM DATA MINER) 01/10/2014 Narrative HISTORICAL RESULTS - 01/12/2014 2:39 AM DATA MINER Patient No: [id number] ? [facility] Patient Name: CATALINO DSOUZA ? [facility] Age: 58 YRS ?: 1955 ?Sex:F ?[address] )[phone] ?? Adm Dt: 01/10/2014 ?[place] ??[id number] Created: 01/12/2014 ??0239 ?? Pt. Type: R ? Discharge Dt: 01/10/2014 ? Pathologists: Teetee Lai MD Admit Attend Dr: JANICE WALDROP MD ?LIPIDS ?Collection Date: ?01/10/14 ?Collection Time: ?0605 ? Ref Range: ?? Units: ? MG/DL ?CHOLESTEROL ?147 f ? MG/DL ?HDL CHOLESTEROL ? 53 f ? MG/DL ?TRIGLYCERIDES ? 83 f ?01/10/14 0605 Current guidelines recommend that lipid screen be ??performed on fasting blood samples for heart risk stratification. FOOTNOTE ADDED ON ?? 01/10/14 ?? AT 0720 BY 999 ? MG/DL ?NON HDL CALC ?94 f Footnotes and Symbols: f = Footnote CHOLESTEROL (12/10/10 -- Current) DESIRABLE = LESS THAN 200 MG/DL BORDERLINE HIGH = 200-239 MG/DL HIGH= GREATER THAN 239 MG/DL HDL CHOLESTEROL (12/10/10 -- Current) LOW HDL CHOLESTEROL = Less than 40 mg/dL NORMAL HDL CHOLESTEROL = 40-59 mg/dL HIGH HDL CHOLESTEROL = Greater than 59 mg/dL TRIGLYCERIDES (03/14/13 -- Current) NORMAL = LESS THAN 150 MG/DL BORDERLINE HIGH = 150-199 MG/DL HIGH = 200-499 MG/DL VERY HIGH = GREATER THAN OR EQUAL TO 500 MG/DL NON HDL CALC (03/05/13 -- Current) OPTIMAL LESS THAN 130 LOW RISK 130 -159 MODERATE RISK 160 - 189 HIGH RISK GREATER THAN OR EQUAL TO 190 ?? CONTINUED ?Page: ?? 1 Patient No: [id number] ? [facility] Patient Name: CATALINO DSOUZA ? [facility] Age: 58 YRS ?: 1955 ?Sex:F ?[address] )[phone] ?? Adm Dt: 01/10/2014 ?[place] ??[id number] Created: 01/12/2014 ??0239 ?? Pt. Type: R ? Discharge Dt: 01/10/2014 ? Pathologists: Teetee Lai MD Admit Attend Dr: JANICE WALDROP MD ?LIPIDS ?Collection Date: ?01/10/14 ?Collection Time: ?06 ? Ref Range: ?? Units: ?LDL CHOL CALC ? 77 f Footnotes and Symbols: f = Footnote LDL CHOL CALC (03/15/13 -- Current) LESS THAN 100 MG/DL OPTIMAL 100 - 129 MG/DL NEAR OPTIMAL / ABOVE OPTIMAL 130 - 159 MG/DL BORDERLINE HIGH 160 - 189 MG/DL HIGH GREATER THAN OR = 190 MG/DL VERY HIGH LDL VALUES ARE NOT VALID WHEN THE TOTAL TRIGLYCERIDE IS GREATER THAN 300 MG/DL. ?? END OF CHART ? Page: ?? 2 us Historical Provider LAB BLOOD ORDERABLES Estefania l Result HISTORICAL RESULTS documented in this encounter Visit Diagnoses Diagnosis Benign essential hypertension Essential hypertension, benign Pure hypercholesterolemia documented in this encounter Care Teams Relocation Manager Relationship Specialty Start Date End Date Torito Gonzalez MD [address] [place] [address] PCP - General 02/21/12 02/24/17 documented as of this encounter
--- OUTSIDE RECORDS SUMMARY | 2024-11-18 12:03 | XMS_ITS | Encounter Summary ---
Author Organization [facility] Healthcare Address [address] [place] [address] Care Team Providers Care Records Custodian Name Role Phone Torito Gonzalez MD Primary Care Provider +1- [phone] Encounter Details Date Type Department Care Team (Late st Contact Info) Description 12/24/2010 7:02 AM SNOW REMOVING SUPERVISOR - 12/24/2010 11:59 PM SNOW REMOVING SUPERVISOR Hospital Encounter [facility] Troy Chavez Essential hypertension; Pure hypercholesterolemia ; Chest pain Social History Tobacco Use Types Packs/Day Years Used Date Smoking Tobacco: Never Assessed Comments Unknown Sex and Gender Information Value Date Recorded Sex Assigned at Not on file Legal Sex Female 1:11 AM SNOW REMOVING SUPERVISOR Gender Identity Not on file Sexual Orientation Not on file documented as of this encounter Plan of Treatment Not on file documented as of this encounter Visit Diagnoses Diagnosis Essential hypertension Unspecified essential hypertension Pure hypercholesterolemia Chest pain Unspecified chest pain documented in this encounter Care Teams Records Custodian Relationship Specialty Start Date End Date Torito Gonzalez MD [address] [place] [address] PCP - General 09/30/09 02/20/12 documented as of this encounter
--- OUTSIDE RECORDS SUMMARY | 2024-11-18 12:03 | XMS_ITS | Encounter Summary ---
Author Organization [facility] Healthcare Address [address] [place] [address] Care Team Providers Care Delivery Driver/Customer Service Name Role Phone Torito Gonzalez MD Primary Care Provider +1- [phone] Encounter Details Date Type Department Care Team (Late st Contact Info) Description 12/25/2012 6:02 AM REFURBISH TECHNICIAN - 12/25/2012 11:59 PM REFURBISH TECHNICIAN Hospital Encounter [facility] Janice Chavez Other and unspecified hyperlipidemia; Chest pain Social History Tobacco Use Types Packs/Day Years Used Date Smoking Tobacco: Never Assessed Comments Unknown Sex and Gender Information Value Date Recorded Sex Assigned at Not on file Legal Sex Female 1:11 AM REFURBISH TECHNICIAN Gender Identity Not on file Sexual [...] Associated Diagnosis Comments SERUM LIPID PANEL Routine 12/25/2012 6:1 2 AM REFURBISH TECHNICIAN DISCHARGE LABORATORY CUMULATIVE REPORT Routine 12/25/2012 12:00 AM REFURBISH TECHNICIAN documented in this encounter Results * Serum lipid panel (12/25/2012 6:12 AM REFURBISH TECHNICIAN) Cholesterol 155 mg/dl HISTORIC AL RESULTS Comment: DESIRABLE = LESS THAN 200 MG/DL BORDERLINE HIGH = 200-239 MG/DL HIGH= GREATER THAN 239 MG/DL Triglycerides 133 mg/dl HISTOR ICAL RESULTS Comment: NORMAL = LESS THAN 150 MG/DL BORDERLINE HIGH = 150-199 MG/DL HIGH = 200-499 MG/DL VERY HIGH = GREATER THAN OR EQUAL TO 500 MG/DL HDL 57 mg/dl HISTORICAL RESULTS Comment: LOW HDL CHOLESTEROL = Less than 40 mg/dL NORMAL HDL CHOLESTEROL = 40-59 mg/dL HIGH HDL CHOLESTEROL = Greater than 59 mg/dL LDL, direct 82 mg/dl HISTORIC AL RESULTS Comment: OPTIMAL = Less than 100 mg/dl NEAR OPTIMAL/ABOVE OPTIMAL = 100-129 mg/dl BORDERLINE HIGH = 130-159 mg/dl HIGH = 160-189 mg/dl VERY HIGH = Greater than 189 mg/dl Serum 12/25/2012 6:12 AM REFURBISH TECHNICIAN us Janice Waldrop LAB BLOOD ORDERABLES Final Resul t HISTORICAL RESULTS * Discharge Laboratory Cumulative Report (12/25/2012 12:00 AM REFURBISH TECHNICIAN) 12/25/2012 Narrative HISTORICAL RESULTS - 12/27/2012 12:24 AM REFURBISH TECHNICIAN Patient No: [id number] ? [facility] Patient Name: CATALINO DSOUZA ? [facility] Age: 57 YRS ?: 1955 ?Sex:F ?[address] )[phone] ?? Adm Dt: 12/25/2012 ?[place] ??[id number] Created: 12/27/2012 ??0024 ?? Pt. Type: R ? Discharge Dt: 12/25/2012 ? Pathologists: Teetee Lai MD Admit Attend Dr: JANICE WALDROP MD ?LIPIDS ?Collection Date: ?12/25/12 ?Collection Time: ?0612 ? Ref Range: ?? Units: ? MG/DL ?LDL DIRECT ?82 f ? MG/DL ?CHOLESTEROL ?155 f ? MG/DL ?HDL CHOLESTEROL ? 57 f ? MG/DL ?TRIGLYCERIDES ?133 f Footnotes and Symbols: f = Footnote LDL DIRECT (12/10/10 -- Current) OPTIMAL = Less than 100 mg/dl NEAR OPTIMAL/ABOVE OPTIMAL = 100-129 mg/dl BORDERLINE HIGH = 130-159 mg/dl HIGH = 160-189 mg/dl VERY HIGH = Greater than 189 mg/dl CHOLESTEROL (12/10/10 -- Current) DESIRABLE = LESS THAN 200 MG/DL BORDERLINE HIGH = 200-239 MG/DL HIGH= GREATER THAN 239 MG/DL HDL CHOLESTEROL (12/10/10 -- Current) LOW HDL CHOLESTEROL = Less than 40 mg/dL NORMAL HDL CHOLESTEROL = 40-59 mg/dL HIGH HDL CHOLESTEROL = Greater than 59 mg/dL TRIGLYCERIDES (02/03/07 -- Current) NORMAL = LESS THAN 150 MG/DL BORDERLINE HIGH = 150-199 MG/DL HIGH = 200-499 MG/DL VERY HIGH = GREATER THAN OR EQUAL TO 500 MG/DL ?? END OF CHART ? Page: ?? 1 us Historical Provider LAB BLOOD ORDERABLES Estefania l Result HISTORICAL RESULTS documented in this encounter Visit Diagnoses Diagnosis Other and unspecified hyperlipidemia Chest pain Unspecified chest pain documented in this encounter Care Teams Delivery Driver/Customer Service Relationship Specialty Start Date End Date Torito Gonzalez MD [address] [place] [address] PCP - General 02/21/12 02/24/17 documented as of this encounter
--- OUTSIDE RECORDS SUMMARY | 2024-11-18 12:03 | XMS_ITS | Encounter Summary ---
Author Organization [facility] Healthcare Address [address] [place] [address] Care Team Providers Care Scale Balancer Name Role Phone Torito Gonzalez MD Primary Care Provider +1- [phone] Encounter Details Date Type Department Care Team (Latest Contact Info) Description 02/09/2010 6:42 AM CDT - 02/09/2010 11:59 PM CDT Hospital Encounter [facility] CLINTroy King Pure hypercholesterolemia; Essential hypertension Social History Tobacco Use Types Packs/Day Years Used Date Smoking Tobacco: Never Assessed Comments Unknown Sex and Gender Information Value Date Recorded Sex Assigned at Not on file Legal Sex Female 1:11 AM TEST ENGINEERING MANAGER Gender Identity Not on file Sexual Orientation Not on file documented as of this encounter Plan of Treatment Not on file documented as of this encounter Visit Diagnoses Diagnosis Pure hypercholesterolemia Essential hypertension Unspecified essential hypertension documented in this encounter Care Teams Scale Balancer Relationship Specialty Start Date End Date Torito Gonzalez MD [address] [place] [address] PCP - General 09/30/09 02/20/12 documented as of this encounter
--- OUTSIDE RECORDS SUMMARY | 2024-11-18 12:03 | XMS_ITS | Encounter Summary ---
Author Organization [facility] Healthcare Address [address] [place] [address] Care Team Providers Care Recreation Facility Manager Name Role Phone Unavailable Primary Care Provider Unavailabl e Encounter Details Date Type Department Care Team (Late st Contact Info) Description 02/16/2007 12:01 AM CDT - 02/16/2007 11:59 PM CDT Hospital Encounter [facility] Alhaji Wilhelm MD [address] [place] [address] [address] Social History Tobacco Use Types Packs/Day Years Used Date Smoking Tobacco: Never Assessed Comments Unknown Sex and Gender Information Value Date Recorded Sex Assigned at Not on file Legal Sex Female 1:11 AM LOAN INTERVIEWER MORTGAGE Gender Identity Not on file Sexual Orientation Not on file documented as of this encounter Plan of Treatment Not on file documented as of this encounter Visit Diagnoses Not on filedocumented in this encounter
--- OUTSIDE RECORDS SUMMARY | 2024-11-18 12:03 | XMS_ITS | Encounter Summary ---
Author Organization [facility] Healthcare Address [address] [place] [address] Care Team Providers Care Marketing Operations Analyst Name Role Phone Ventura Gonzalez MD Primary Care Provider +1- [phone] Encounter Details Date Type Department Care Team (Late st Contact Info) Description 04/05/2013 7:23 AM CDT - 04/05/2013 11:59 PM CDT Hospital Encounter [facility] Alhaji Wilhelm MD [address] [place] [address] [address] Other screening mammogram; Screening for osteoporosis; Asymptomatic postmenopausal status; Disorder of bone and cartilage Social History Tobacco Use Types Packs/Day Years Used Date Smoking Tobacco: Never Assessed Comments Unknown Sex and Gender Information Value Date Recorded Sex Assigned at Not on file Legal Sex Female 1:11 AM ELECTRICIAN APPRENTICE 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 No current complaints. Performed by: RESULT: Four view screening mammogram is compared to a prior exam dated 03/30/12. There has been no interval change. The breasts are heterogeneously dense. ??There are no new masses or suspicious microcalcifications. Digital technology was employed plus computer-aided detection software (R2) was utilized in interpretation of these images. ??This facility utilizes a reminder system to notify patients of yearly mammograms. IMPRESSION: BI RADS CATEGORY 1 - NEGATIVE EXAM RECOMMEND ROUTINE ??FOLLOWUP. Interpreting Physician: ??DR JOSE RAUL BAL M.D. ??Read on: ??May ??2012 8:01A Transcribed by: ??[facility] ??On: May ??2012 10:52A Approved Electronically by: ??VALREIANO Leyva, DR BLUNT ??on: ??May ??2012 3:22P Ordering DR: DR ALHAJI PATEL Attending DR: DR ALHAJI PATEL Procedure Note Provider, MD Christie - 03/23/2017 CC: DR VENTURA GONZALEZ Screening Mamm Bi Acc#: [id number] DATE OF EXAM: Apr 05 2013 CLINICAL HISTORY: Routine screening. No current complaints. Performed by: RESULT: Four view screening mammogram is compared to a prior exam dated 03/30/12.There has been no interval change. The breasts are heterogeneously dense.There are no new masses or suspicious microcalcifications. Digitaltechnology was employed plus computer- aided detection software (R2) wasutilized in interpretation of these images. This facility utilizes flaregames system to notify patients of yearly mammograms. IMPRESSION: BI RADS CATEGORY 1 - NEGATIVE EXAM RECOMMEND ROUTINE FOLLOWUP. Interpreting Physician: DR JOSE ARUL BAL M.D. Read on: Apr 05 20138:01A Transcribed by: [email or web address] On: Apr 05 2013 10:52A Approved Electronically by: VALERIANO Leyva, DR BLUNT on: Apr 05 20133:22P Ordering DR: DR ALHAJI PATEL Attending DR: DR ALHAJI PATEL us Historical Provider MD OBANDO MAMMO PROCEDURES Estefania l Result * Dexa Axial Skeleton Bone Density 1 or 2 Site (04/05/2013 7:42 AM CDT) Anatomical Region Laterality Modality Body N/A Radiographic Angeline ging 04/05/2013 7:42 AM CDT Narrative 04/05/2013 3:22 PM CDT CC: ??DR VENTURA GONZALEZ DEXA Bone Density Axial ??Acc#: ??[id number] DATE OF EXAM: ??March ??2012 CLINICAL HISTORY: 57 year old postmenopausal female who states a prior history of smoking and hysterectomy. ??The patient currently takes hormone replacement therapy, vitamin D and calcium. RESULT: DXA LEFT HIP RESULTS SUMMARY: BMD (g/cm2) T-score ??Z-score Neck 0.764 ??-0.8 ??0.5 Total 0.876 ??-0.5 ??0.4 DXA L-SPINE RESULTS SUMMARY: BMD (g/cm2) T-score ??Z-score L1 0.857 ??-1.2 ?? 0.0 L2 0.863 ??-1.5 ??-0.1 L3 0.772 ??-2.8 ??-1.4 L4 0.882 ??-1.6 ??-0.1 Total 0.843 ??-1.9 ??-0.5 IMPRESSION: 1. BONE MINERAL DENSITY OF THE LUMBAR SPINE IS MILDLY DECREASED AND INDICATIVE OF OSTEOPENIA BY WORLD HEALTH ORGANIZATION CRITERIA. 2. BONE MINERAL DENSITY OF THE LEFT FEMORAL NECK IS WITHIN NORMAL LIMITS. CALCULATED 10 YEAR FRACTURE RISK FOR MAJOR OSTEOPOROTIC FRACTURE IS 6.6% AND HIP FRACTURE IS 0.5%. COMMENT: W.H.O. defines the T-score of between [...] sex and age group population. Interpreting Physician: ??DR JOSE RAUL BAL M.D. ??Read on: ??May ??2012 9:32A Transcribed by: ??ylc ??On: May ??2012 10:16A Approved Electronically by: ??VALERIANO Leyva, DR BLUNT ??on: ??May ??2012 3:22P Ordering DR: DR ALHAJI PATEL Attending DR: DR ALHAJI PATEL Procedure Note Provider, MD Christie - 03/23/2017 CC: DR VENTURA GONZALEZ DEXA Bone Density Axial Acc#: [id number] DATE OF EXAM: Apr 05 2013 CLINICAL HISTORY: 57 year old postmenopausal female who states a prior history of smokingand hysterectomy. The patient currently takes hormone replacementtherapy, vitamin D and calcium. RESULT: DXA LEFT HIP RESULTS SUMMARY: BMD (g/cm2) T-score Z-score Neck 0.764 -0.8 0.5 Total 0.876 -0.50.4 DXA L-SPINE RESULTS SUMMARY: BMD (g/cm2) T-score Z-score L1 0.857 -1.2 0.0 L2 0.863 -1.5 -0.1 L30.772 -2.8 - 1.4 L4 0.882 -1.6 -0.1 Total 0.843 -1.9 -0.5 IMPRESSION: 1. BONE MINERAL DENSITY OF THE LUMBAR SPINE IS MILDLY DECREASED ANDINDICATIVE OF OSTEOPENIA BY WORLD HEALTH ORGANIZATION CRITERIA. 2. BONE MINERAL DENSITY OF THE LEFT FEMORAL NECK IS WITHIN NORMAL LIMITS.CALCULATED 10 YEAR FRACTURE RISK FOR MAJOR OSTEOPOROTIC FRACTURE IS 6.6%AND HIP FRACTURE IS 0.5%. COMMENT: W.H.O. defines the T-score of between [...] ofsex and age group population. Interpreting Physician: DR JOSE RAUL BAL M.D. Read on: Apr 05 20139:32A Transcribed by: [facility] On: Apr 05 2013 10:16A Approved Electronically by: VALERIANO Leyva, DR BLUNT on: Apr 05 20133:22P Ordering DR: DR ALHAJI PATEL Attending DR: DR ALHAJI PATEL us Historical Provider MD OBANDO DXA PROCEDURES Final Result documented in this encounter Visit Diagnoses Diagnosis Other screening mammogram Screening for osteoporosis Special screening for osteoporosis Asymptomatic postmenopausal status Disorder of bone and cartilage Disorder of bone and cartilage, unspecified documented in this encounter Care Teams Marketing Operations Analyst Relationship Specialty Start Date End Date Ventura Gonzalez MD [address] [place] [address] PCP - General 02/21/12 02/24/17 documented as of this encounter
--- OUTSIDE RECORDS SUMMARY | 2024-11-18 12:03 | XMS_ITS | Encounter Summary ---
Author Organization [facility] Address [address] [place] [address] Care Team Providers Care Inner Tube Tuber Machine Operator Name Role Phone Torito Gonzalez MD Primary Care Provider +1- [phone] Encounter Details Date Type Department Care Team (Late st Contact Info) Description 01/04/2011 12:01 AM MANUSCRIPTS CURATOR - 01/04/2011 11:59 PM MANUSCRIPTS CURATOR Hospital Encounter [facility] Jaciel Espinoza MD [address] [place] [address] [address] Follow-up examination, following other surgery; Diverticulosis of colon; Hemorrhoids; Essential hypertension; Other and unspecified angina pectoris; Tobacco use disorder Social History Tobacco Use Types Packs/Day Years Used Date Smoking Tobacco: Never Assessed Comments Unknown Sex and Gender Information Value Date Recorded Sex Assigned at Not on file Legal Sex Female 1:11 AM MANUSCRIPTS CURATOR Gender Identity Not on file Sexual Orientation Not on file documented as of this encounter Procedure Notes * ProviderChristie MD - 01/04/2011 12:00 AM CSTAssociated Order(s): COLONOSCOPY PROCEDURE REPORT Patient: CATALINO CHRIS Account: [id number] Room No: : 1955 Patient Type: OPA Attend.: Jaciel Mott M.D. Admit Date: 01/04/2011 Dict.: Jaciel Mott M.D. Disch. Date: NAME OF PROCEDURE: COLONOSCOPY HISTORY A 55-year-old female with a prior history of colonic polyps. PHYSICAL EXAMINATION Well-developed female. Lungs are clear. Cardiovascular examination was unremarkable. PROCEDURE Colonoscopy was performed with the Fujinon video endoscope. The patient was premedicated by anesthesia. On digital exam, she has small grade 3 hemorrhoids. We inserted the endoscope and advanced it to the cecum. The colon was well prepped and visualized. She has diffuse diverticulosis involving the right as well as the left colon but no evidence of inflammation or neoplasia anywhere through the length of the bowel. The patient tolerated the procedure without difficulty. POSTOPERATIVE DIAGNOSIS Diffuse diverticulosis. Hemorrhoidal disease. PLAN Surveillance in five years in light of past history. Autumn Contreras TD: 01/04/2011 09:26 CC: Dr. Gonzalez PROCEDURE REPORT Authenticated by Jaciel Mott MD On 01/05/2011 01:42:34 PM documented in this encounter Plan of Treatment Not on file documented as of this encounter Procedures Procedure Name Priority Date/Time Associated Diagnosis Comments COLONOSCOPY 01/04/2011 12:00 AM MANUSCRIPTS CURATOR documented in this encounter Results * COLONOSCOPY (01/04/2011 12:00 AM MANUSCRIPTS CURATOR) Anatomical Region Laterality Modality Other Narrative 01/04/2011 12:00 AM MANUSCRIPTS CURATOR Ordered by an unspecified provider. Procedure Note Provider, MD Christie - 01/04/2011 12:00 AM CST PROCEDURE REPORT Patient: CATALINO CHRIS Account: [id number] Room No: : 1955 Patient Type: [facility] Attend.: Jaciel Mott M.D. Admit Date: 01/04/2011 Dict.: Jaciel Mott M.D. Disch. Date: NAME OF PROCEDURE: COLONOSCOPY HISTORY A 55-year-old female with a prior history of colonic polyps. PHYSICAL EXAMINATION Well-developed female. Lungs are clear. Cardiovascular examination was unremarkable. PROCEDURE Colonoscopy was performed with the Fujinon video endoscope. The patientwas premedicated by anesthesia. On digital exam, she has small grade 3 hemorrhoids. We inserted the endoscope and advanced it to the cecum.The colon was well prepped and visualized. She has diffuse diverticulosis involving the right as well as the left colon but no evidence ofinflammation or neoplasia anywhere through the length of the bowel. The patienttolerated the procedure without difficulty. POSTOPERATIVE DIAGNOSIS Diffuse diverticulosis. Hemorrhoidal disease. PLAN Surveillance in five years in light of past history. Jaciel Mott M.D. Marisela TD: 01/04/2011 09:26 CC: Dr. Gonzalez PROCEDURE REPORT Authenticated by Jaciel Mott MD On 01/05/2011 01:42:34 PM us Historical Provider ENDOSCOPY PROCEDURES Estefania l Result documented in this encounter Visit Diagnoses Diagnosis Follow-up examination, following other surgery Diverticulosis of colon Diverticulosis of colon (without mention of hemorrhage) Hemorrhoids Essential hypertension Unspecified essential hypertension Other and unspecified angina pectoris Tobacco use disorder documented in this encounter Care Teams Inner Tube Tuber Machine Operator Relationship Specialty Start Date End Date Torito Gonzalez MD [address] [place] [address] PCP - General 09/30/09 02/20/12 documented as of this encounter
--- OUTSIDE RECORDS SUMMARY | 2024-11-18 12:03 | XMS_ITS | Encounter Summary ---
Author Organization [facility] Healthcare Address [address] [place] [address] Care Team Providers Care Title Attorney Name Role Phone Torito Gonzalez MD Primary Care Provider +1- [phone] Encounter Details Date Type Department Care Team (Late st Contact Info) Description 03/26/2010 12:01 AM CDT - 03/26/2010 11:59 PM CDT Hospital Encounter [facility] Alhaji Wilhelm MD [address] [place] [address] [address] Other screening mammogram Social History Tobacco Use Types Packs/Day Years Used Date Smoking Tobacco: Never Assessed Comments Unknown Sex and Gender Information Value Date Recorded Sex Assigned at Not on file Legal Sex Female 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
--- OUTSIDE RECORDS SUMMARY | 2024-11-18 12:03 | XMS_ITS | Encounter Summary ---
Author Organization [facility] Healthcare Address [address] [place] [address] Care Team Providers Care Production Maintenance Mechanic Name Role Phone Torito Gonzalez MD Primary Care Provider +1- [phone] Encounter Details Date Type Department Care Team (Late st Contact Info) Description 04/25/2013 6:28 AM CDT - 04/25/2013 11:59 PM CDT Hospital Encounter [facility] Alhaji Wilhelm MD [address] [place] [address] [address] Disorder of bone and cartilage Social History Tobacco Use Types Packs/Day Years Used Date Smoking Tobacco: Never Assessed Comments Unknown Sex and Gender Information Value Date Recorded Sex Assigned at Not on file Legal Sex Female 1:11 AM RIP AND GROOVE MACHINE OPERATOR Gender Identity Not on file [...] Name Priority Date/Time Associated Diagnosis Comments SERUM CALCIUM Routine 04/25/2013 6:31 AM CDT DISCHARGE LABORATORY CUMULATIVE REPORT Routine 04/25/2013 12:00 AM CDT documented in this encounter Results * Serum calcium (04/25/2013 6:31 AM CDT) Calcium 9.0 8.6 - 9.8 mg/dl HISTORICAL RESULTS Serum 04/25/2013 6:31 AM CDT Alhaji Payan MD LAB BLOOD ORDERABLES Final Result HISTORICAL RESULTS * Discharge Laboratory Cumulative Report (04/25/2013 12:00 AM CDT) 04/25/2013 Narrative HISTORICAL RESULTS - 04/27/2013 12:25 AM CDT Patient No: [id number] ? [facility] Patient Name: CATALINO DSOUZA ? [facility] Healthcare Age: 57 YRS ?: 1955 ?Sex:F ?[facility] )[id number] ?? Adm Dt: 04/25/2013 ?[place], [place] ??[address] Created: 04/27/2013 ??0025 ?? Pt. Type: R ? Discharge Dt: 04/25/2013 ? Pathologists: Teetee Lai MD Admit DrBarbara Attend Dr: ALHAJI PAYAN MD ? GENERAL CHEMISTRY ?Collection Date: ?04/25/13 ?Collection Time: ?0631 ? Ref Range: ?? Units: [8.6-9.8] ?? MG/DL ?CALCIUM ?9.0 ?? END OF CHART ? Page: ?? 1 us Historical Provider MD LAB BLOOD ORDERABLES Estefania l Result HISTORICAL RESULTS documented in this encounter Visit Diagnoses Diagnosis Disorder of bone and cartilage Disorder of bone and cartilage, unspecified documented in this encounter Care Teams Production Maintenance Mechanic Relationship Specialty Start Date End Date Torito Gonzalez MD [address] [place] [address] PCP - General 02/21/12 02/24/17 documented as of this encounter
--- OUTSIDE RECORDS SUMMARY | 2024-11-18 12:03 | XMS_ITS | Encounter Summary ---
Author Organization [facility] Healthcare Address [address] [place] [address] Care Team Providers Care Bathhouse Keeper Name Role Phone Unavailable Primary Care Provider Unavailabl e Encounter Details Date Type Department Care Team (Late st Contact Info) Description 03/22/2008 12:01 AM CDT - 03/22/2008 11:59 PM CDT Hospital Encounter [facility] Alhaji Wilhelm MD [address] [place] [address] [place] [address] [address] Social History Tobacco Use Types Packs/Day Years Used Date Smoking Tobacco: Never Assessed Comments Unknown Sex and Gender Information Value Date Recorded Sex Assigned at Not on file Legal Sex Female 1:11 AM CASH POSTER Gender Identity Not on file Sexual Orientation Not on file documented as of this encounter Plan of Treatment Not on file documented as of this encounter Visit Diagnoses Not on filedocumented in this encounter
--- OUTSIDE RECORDS SUMMARY | 2024-11-18 12:03 | XMS_ITS | Encounter Summary ---
Author Organization [facility] Healthcare Address [address] [place] [address] Care Team Providers Care Medical Lab Tech Instructor Name Role Phone Torito Gonzalez MD Primary Care Provider +1- [phone] Encounter Details Date Type Department Care Team (Late st Contact Info) Description 12/30/2009 7:45 AM PAINT STRIPPER - 12/30/2009 11:59 PM PAINT STRIPPER Hospital Encounter [facility] Troy Chavez Chest pain; Disorder of lipid metabolism Social History Tobacco Use Types Packs/Day Years Used Date Smoking Tobacco: Never Assessed Comments Unknown Sex and Gender Information Value Date Recorded Sex Assigned at Not on file Legal Sex Female 1:11 AM PAINT STRIPPER Gender Identity Not on file Sexual Orientation Not on file documented as of this encounter Plan of Treatment Not on file documented as of this encounter Visit Diagnoses Diagnosis Chest pain Unspecified chest pain Disorder of lipid metabolism Unspecified disorder of lipoid metabolism documented in this encounter Care Teams Medical Lab Tech Instructor Relationship Specialty Start Date End Date Torito Gonzalez MD [address] [place] [address] PCP - General 09/30/09 02/20/12 documented as of this encounter
--- OUTSIDE RECORDS SUMMARY | 2024-11-18 12:03 | XMS_ITS | Encounter Summary ---
Author Organization [facility] Care Team Providers Care Milk Route Deliverer Name Role Phone Unavailable Primary Care Provider Unavailabl e Encounter Details Date Type Department Care Team (Late st Contact Info) Description 12/27/2006 - 12/27/2006 11:59 PM NARROW GAUGE OPERATOR Hospital Encounter [facility] CLINCONTwila Taylor Social History Tobacco Use Types Packs/Day Years Used Date Smoking Tobacco: Never Assessed Comments Unknown Sex and Gender Information Value Date Recorded Sex Assigned at Not on file Legal Sex Female 1:11 AM NARROW GAUGE OPERATOR Gender Identity Not on file Sexual Orientation Not on file documented as of this encounter Plan of Treatment Not on file documented as of this encounter Visit Diagnoses Not on filedocumented in this encounter
--- OUTSIDE RECORDS SUMMARY | 2024-11-18 12:03 | XMS_ITS | Encounter Summary ---
Author Organization [facility] Healthcare Address [address] [place] [address] Care Team Providers Care Transformer Repairer Name Role Phone Torito Gonzalez MD Primary Care Provider +1- [phone] Encounter Details Date Type Department Care Team (Late st Contact Info) Description 02/18/2010 12:01 AM CDT - 02/18/2010 11:59 PM CDT Hospital Encounter [facility] Torrey Floyd MD [address] [place] [address] [address] Chest pain; Other and unspecified hyperlipidemia; Tobacco use disorder; Family history of ischemic heart disease; Essential hypertension Social History Tobacco Use Types Packs/Day Years Used Date Smoking Tobacco: Never Assessed Comments Unknown Sex and Gender Information Value Date Recorded Sex Assigned at Not on file Legal Sex Female 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 CLAY 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
--- OUTSIDE RECORDS SUMMARY | 2024-11-18 12:03 | XMS_ITS | Encounter Summary ---
Author Organization [facility] Healthcare Address [address] [place] [address] Care Team Providers Care Health Companion Name Role Phone Torito Gonzalez MD Primary Care Provider +1- [phone] Encounter Details Date Type Department Care Team (Late st Contact Info) Description 11/05/2013 1:30 PM CAMERA ASSEMBLER - 11/05/2013 11:59 PM CAMERA ASSEMBLER Hospital Encounter [facility] JANIE Payan, Alhaji Orozco MD [address] [place] [address] [address] Osteoporosis Social History Tobacco Use Types Packs/Day Years Used Date Smoking Tobacco: Never Assessed Comments Unknown Sex and Gender Information Value Date Recorded Sex Assigned at Not on file Legal Sex Female 1:11 AM CAMERA ASSEMBLER Gender Identity Not on file Sexual [...] osteoporosis documented in this encounter Care Teams Health Companion Relationship Specialty Start Date End Date Torito Gonzalez MD [address] [place] [address] PCP - General 02/21/12 02/24/17 documented as of this encounter
--- OUTSIDE RECORDS SUMMARY | 2024-11-18 12:03 | XMS_ITS | Encounter Summary ---
Author Organization [facility] Healthcare Address [address] [place] [address] Care Team Providers Care Die Turner Name Role Phone Ventura Gonzalez MD Primary Care Provider +1- [phone] Encounter Details Date Type Department Care Team (Late st Contact Info) Description 10/04/2013 6:51 AM HOUSING MANAGEMENT REPRESENTATIVE - 10/04/2013 11:59 PM HOUSING MANAGEMENT REPRESENTATIVE Hospital Encounter [facility] CLINCONV eVntura Gonzalez MD [address] [place] [address] Lumbosacral spondylosis without myelopathy; Acquired spondylolisthesis; Thoracic spondylosis without myelopathy Social History Tobacco Use Types Packs/Day Years Used Date Smoking Tobacco: Never Assessed Comments Unknown Sex and Gender Information Value Date Recorded Sex Assigned at Not on file Legal Sex Female 1:11 AM HOUSING MANAGEMENT REPRESENTATIVE Gender Identity Not on file Sexual Orientation [...] Priority Date/Time Associated Diagnosis Comments XR SPINE LUMBAR ROUTINE Routine 10/04/2013 7:22 AM HOUSING MANAGEMENT REPRESENTATIVE XR SPINE THORACIC 3 VIEWS Routine 10/04/2013 7:22 AM HOUSING MANAGEMENT REPRESENTATIVE documented in this encounter Results * XR Lumbar Spine Routine (10/04/2013 7:22 AM HOUSING MANAGEMENT REPRESENTATIVE) Anatomical Region Laterality Modality L-spine N/A Radiographic Angeline ging 10/04/2013 7:22 AM HOUSING MANAGEMENT REPRESENTATIVE Narrative 10/05/2013 7:05 AM HOUSING MANAGEMENT REPRESENTATIVE XR Lumbar Spine Routine ??[id number] ??Acc#: ??[id number] DATE OF EXAM: ??Nov ??2012 CLINICAL HISTORY: Back pain. RESULT: AP, lateral and oblique views of the lumbar spine obtained. There are five lumbar type vertebral bodies in anatomic alignment on the AP film. ??On the lateral radiograph, there is a grade 1 anterior spondylolisthesis of L4 relative to L5 and a grade 1 posterior spondylolisthesis of L5 relative to S1. ??Disc space heights still appear to be normally maintained. ??There is no compression fracture. ??There are degenerative facet changes appearing moderate in degree at L4-L5 and L5-S1. IMPRESSION: 1. DEGENERATIVE OSTEOARTHRITIS OF THE LUMBAR SPINE MAINLY MANIFESTED BY FACET OSTEOARTHRITIS OF MODERATE DEGREE AT L4-L5 AND L5-S1. 2. NO LUMBAR COMPRESSION FRACTURE. 3. GRADE 1 POSTERIOR SPONDYLOLISTHESIS L5 RELATIVE TO S1 AND A GRADE 1 ANTERIOR SPONDYLOLISTHESIS OF L4 RELATIVE TO L5. Interpreting Physician: ??DR JOSE RAUL BAL M.D. ??Read on: ??Nov ??2012 8:02A Transcribed by: ??mrr ??On: Nov ??2012 10:39A Approved Electronically by: ??VALERIANO Leyva, DR BLUNT ??on: ??Nov ??8 2012 7:05A Ordering DR: DR VENTURA GONZALEZ Attending DR: DR VENTURA GONZALEZ Procedure Note Provider, MD Christie - 03/23/2017 XR Lumbar Spine Routine [id number] Acc#: [id number] DATE OF EXAM: Oct 04 2013 CLINICAL HISTORY: Back pain. RESULT: AP, lateral and oblique views of the lumbar spine obtained. There arefive lumbar type vertebral bodies in anatomic alignment on the AP film.On the lateral radiograph, there is a grade 1 anterior spondylolisthesisof L4 relative to L5 and a grade 1 posterior spondylolisthesis of [id number] to S1. Disc space heights still appear to be normallymaintained. There is no compression fracture. There are degenerativefacet changes appearing moderate in degree at L4-L5 and L5-S1. IMPRESSION: 1. DEGENERATIVE OSTEOARTHRITIS OF THE LUMBAR SPINE MAINLY MANIFESTED BYFACET OSTEOARTHRITIS OF MODERATE DEGREE AT L4-L5 AND L5-S1. 2. NO LUMBAR COMPRESSION FRACTURE. 3. GRADE 1 POSTERIOR SPONDYLOLISTHESIS L5 RELATIVE TO S1 AND A GRADE 1ANTERIOR SPONDYLOLISTHESIS OF L4 RELATIVE TO L5. Interpreting Physician: DR JOSE RAUL BAL M.D. Read on: Oct 04 20138:02A Transcribed by: mrr On: Oct 04 2013 10:39A Approved Electronically by: VALERIANO Leyva, DR BLUNT on: Oct 05 20137:05A Ordering DR: DR VENTURA GONZALEZ Attending DR: DR VENTURA GONZALEZ us Historical Provider MD IMG XR PROCEDURES Final R esult * XR Spine Thoracic 3 View (10/04/2013 7:22 AM HOUSING MANAGEMENT REPRESENTATIVE) Anatomical Region Laterality Modality Spine N/A Radiographic Angeline ging 10/04/2013 7:22 AM HOUSING MANAGEMENT REPRESENTATIVE Narrative 10/05/2013 12:27 PM HOUSING MANAGEMENT REPRESENTATIVE XR Thoracic Spine Routine [id number] ??Acc#: ??[id number] DATE OF EXAM: ??Nov ??2012 CLINICAL HISTORY: Back pain. RESULT: AP and lateral views of the thoracic spine were obtained. There is exaggeration of the normal thoracic kyphotic curvature. ??There is no thoracic compression fracture. ??Mild degenerative spur formation is noted at multiple mid and lower thoracic levels. ??There is minimal scoliosis on the AP radiograph. IMPRESSION: 1. ??DEGENERATIVE OSTEOARTHRITIS OF THE THORACIC SPINE. 2. ??NO THORACIC COMPRESSION FRACTURE. 3. ??MINIMAL THORACIC SCOLIOSIS. Interpreting Physician: ??ELLIE LAMAR M.D. ??Read on: ??Nov ??7 2012 10:42A Transcribed by: ??vida ??On: Nov ??2012 10:42A Approved Electronically by: ??ELLIE LAMAR M.D. ??on: ??Nov ??8 2012 12:27P Ordering DR: DR VENTURA GONZALEZ Attending DR: DR VENTURA GONZALEZ Procedure Note Provider, MD Christie - 03/23/2017 XR Thoracic Spine Routine [id number] Acc#: [id number] DATE OF EXAM: Oct 04 2013 CLINICAL HISTORY: Back pain. RESULT: AP and lateral views of the thoracic spine were obtained. There isexaggeration of the normal thoracic kyphotic curvature. There is nothoracic compression fracture. Mild degenerative spur formation is notedat multiple mid and lower thoracic levels. There is minimal scoliosis onthe AP radiograph. IMPRESSION: 1. DEGENERATIVE OSTEOARTHRITIS OF THE THORACIC SPINE. 2. NO THORACIC COMPRESSION FRACTURE. 3. MINIMAL THORACIC SCOLIOSIS. Interpreting Physician: ELLIE LAMAR M.D. Read on: Oct 04 2013 10:42A Transcribed by: vida On: Oct 04 2013 10:42A Approved Electronically by: ELLIE LAMAR M.D. on: Oct 05 2013 12:27P Ordering DR: DR VENTURA GONZALEZ Attending DR: DR VENTURA GONZALEZ us Historical Provider IMG XR PROCEDURES Final R esult documented in this encounter Visit Diagnoses Diagnosis Lumbosacral spondylosis without myelopathy Acquired spondylolisthesis Thoracic spondylosis without myelopathy documented in this encounter Care Teams Die Turner Relationship Specialty Start Date End Date Ventura Gonzalez MD [address] [place] [address] PCP - General 02/21/12 02/24/17 documented as of this encounter
--- OUTSIDE RECORDS SUMMARY | 2024-11-18 12:03 | XMS_ITS | Encounter Summary ---
Author Organization [facility] Healthcare Address [address] [place] [address] Care Team Providers Care Director Of Gift Planning Name Role Phone Torito Gonzalez MD Primary Care Provider +1- [phone] Encounter Details Date Type Department Care Team (Late st Contact Info) Description 10/09/2009 12:01 AM RAIL SIGNAL WORKER - 10/09/2009 11:59 PM RAIL SIGNAL WORKER Hospital Encounter [facility] CLINTroy King Other and unspecified angina pectoris Social History Tobacco Use Types Packs/Day Years Used Date Smoking Tobacco: Never Assessed Comments Unknown Sex and Gender Information Value Date Recorded Sex Assigned at Not on file Legal Sex Female 1:11 AM RAIL SIGNAL WORKER Gender Identity Not on file Sexual Orientation Not on file documented as of this encounter Plan of Treatment Not on file documented as of this encounter Visit Diagnoses Diagnosis Other and unspecified angina pectoris documented in this encounter Care Teams Director Of Gift Planning Relationship Specialty Start Date End Date Torito Gonzalez MD [address] [place] [address] PCP - General 09/30/09 02/20/12 documented as of this encounter
--- OUTSIDE RECORDS SUMMARY | 2024-11-18 12:03 | XMS_ITS | Encounter Summary ---
Author Organization [facility] Healthcare Address [address] [place] [address] Care Team Providers Care Director Of Placement Name Role Phone Torito Gonzalez MD Primary Care Provider +1- [phone] Encounter Details Date Type Department Care Team (Late st Contact Info) Description 03/25/2011 11:17 AM CDT - 03/25/2011 11:59 PM CDT Hospital Encounter [facility] CLINCONV Torito Gonzalez MD [address] [place] [address] Chest pain; Personal history of tobacco use, presenting hazards to health Social History Tobacco Use Types Packs/Day Years Used Date Smoking Tobacco: Never Assessed Comments Unknown Sex and Gender Information Value Date Recorded Sex Assigned at Not on file Legal 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
--- OUTSIDE RECORDS SUMMARY | 2024-11-18 12:03 | XMS_ITS | Encounter Summary ---
Author Organization [facility] Healthcare Address [address] [place] [address] Care Team Providers Care Appliance Sales Associate Name Role Phone Torito Gonzalez MD Primary Care Provider +1- [phone] Encounter Details Date Type Department Care Team ([facility] st Contact Info) Description 03/30/2012 7:15 AM CDT - 03/30/2012 11:59 PM CDT Hospital Encounter [facility] Alhaji Wilhelm MD [address] [place] [address] [address] Other screening mammogram Social History Tobacco Use Types Packs/Day Years Used Date Smoking Tobacco: Never Assessed Comments Unknown Sex and Gender Information Value Date Recorded Sex Assigned at Not on file Legal Sex Female 1:11 AM YARN SPOOLER Gender Identity Not on file Sexual Orientation [...] mammogram documented in this encounter Care Teams Appliance Sales Associate Relationship Specialty Start Date End Date Torito Gonzalez MD [address] [place] [address] PCP - General 02/21/12 02/24/17 documented as of this encounter
--- OUTSIDE RECORDS SUMMARY | 2024-11-18 12:03 | XMS_ITS | Encounter Summary ---
Author Organization [facility] Healthcare Address [address] [place] [address] Care Team Providers Care Senior Accounting Manager Name Role Phone Torito Gonzalez MD Primary Care Provider [phone] Encounter Details Date Type Department Care Team (Late st Contact Info) Description 05/04/2013 1:20 PM CDT - 05/04/2013 11:59 PM CDT Hospital Encounter [facility] Alhaji Wilhelm MD [address] [place] [address] [address] Osteoporosis Social History Tobacco Use Types Packs/Day Years Used Date Smoking Tobacco: Never Assessed Comments Unknown Sex and Gender Information Value Date Recorded Sex Assigned at Not on file Legal Sex Female 1:11 AM COUNCILPERSON Gender Identity Not on file Sexual Orientation [...] osteoporosis documented in this encounter Care Teams Senior Accounting Manager Relationship Specialty Start Date End Date Torito Gonzalez MD [address] [place] [address] PCP - General 3/26/12 3/30/17 documented as of this encounter
--- OUTSIDE RECORDS SUMMARY | 2024-11-18 12:03 | XMS_ITS | Encounter Summary ---
Author Organization [facility] Healthcare Address [address] [place] [address] Care Team Providers Care Watch Dial Printer Name Role Phone Unavailable Primary Care Provider Unavailabl e Encounter Details Date Type Department Care Team ([facility] st Contact Info) Description 09/08/2007 7:02 AM CDT - 09/08/2007 11:59 PM CDT Hospital Encounter [facility] Torito Reynoso MD [address] [place] [address] Social History Tobacco Use Types Packs/Day Years Used Date Smoking Tobacco: Never Assessed Comments Unknown Sex and Gender Information Value Date Recorded Sex Assigned at Not on file Legal Sex Female 1:11 AM BROODMARE BARN GROOM Gender Identity Not on file Sexual Orientation Not on file documented as of this encounter Plan of Treatment Not on file documented as of this encounter Visit Diagnoses Not on filedocumented in this encounter
--- OUTSIDE RECORDS SUMMARY | 2024-11-18 12:17 | XMS_ITS | Continuity of Care Document ---
Author Organization [facility] Address [address]ang [address] [place] [address] Phone Care Team Providers Care Site Medical Director Name Role Phone Luis M OD, Ayesha [...] Diagnoses Date Provider Providers Copied on Encounter [facility], [address] [place] [address] [address], [place], [place], [address], [place] tel:[phone] SEC [place] Professional Complete Exam (chief complaint) Presence of intraocular lensOther secondary cataract, bilateralVitre ous degeneration, bilateralOcula r hypertension, bilateral Nov- 3 Luis M OD Ayesha. [address] [place] [address] [address], [address], [place], [place], [address], [place]. tel:[phone] Referring Provider: Ayesha Asencio OD K, [address] [place] [address] [address], [place], [address] . tel:[phone] [facility], [address] [place] [address] [address], [place], [place], [address], [place] tel:[phone] SEC [place] Professional Complete Exam (chief complaint) Presence of intraocular lensOther secondary cataract, bilateralVitre ous degeneration, bilateral Nov- 2 Wilber Malik. [address] [facility], [address], [place], [place], [address], [place]. tel:[phone] Referring Provider: King Rajan, [address] [facility] [address], [place], [address] . tel:[phone] [facility], [address], [place], [place], [address], [place] tel:[phone] SEC [place] Professional Complete Exam (chief complaint) Presence of intraocular lensOther secondary cataract, bilateralPVD (posterior vitreous detachment), right eyeVitreous syneresis of both eyes 1 Wilber Malik. [address] [facility], [address], [place], [place], [address], [place]. tel:[phone] Referring Provider: King Rajan, [address] [facility] [address], [place], [address] . tel:[phone] Office/outpa tient Visit, [facility], [address], [place], [place], [address], [place] tel:[phone] SEC Arsenio QUINTERO Professional 1 month PVD f/u (chief complaint) PVD (posterior vitreous detachment), right eye 0 Avel OD Michael. [address] [facility], [address] [facility], [place], [address], [place]. tel:[phone] Referring Provider: King Rajan, [address], [place], [address] . tel:[phone] Office/outpa tient Visit, [facility], [address], [place], [place], [address], [place] tel:[phone] SEC [place]sen[place] QUINTERO Professional Floater/co bweb in vision (chief complaint) PVD (posterior vitreous detachment), right eye 0 Avel OD Michael. [address] [facility], 6th Floor, [place], [address], [place]. tel:[phone] Referring Provider: King Rajan [address], [place], [address] . tel:[phone] [facility], [address], [place], [place], [address], [place] tel:[phone] SEC Arsen[place] QUINTERO Professional PCIOL Post OP (chief complaint) Encounter for examination following surgery 8 Myron OD Sarah. [address] [facility], [address], [place], [address], [place]. tel:[phone] Referring Provider: King Rajan, [address] [facility] [address], [place], [address] . tel:[phone] [facility], [address], [place], [place], [address], [place] tel:[phone] SEC [place] Professional Post-Op (chief complaint) Encounter for examination following surgery Jan- 8 Myron OD Sarah. [address] [facility], [facility] [address], [place], [address], [place]. tel:[phone] Referring Provider: King Rajan, [address] [facility] [address], [place], [address] . tel:[phone] [facility], [address], [place], [place], [address], [place] tel:[phone] SEC [place] Professional Post-Op (chief complaint) Encounter for examination following surgery 8 Cardenas Lenora. [address] [facility], [place], [address], [place]. tel:[phone] Referring Provider: King Rajan, [address] [facility] [address], [place], [address] . tel:[phone] [facility], [address], [place], [place], [address], [place] tel:[phone] [facility] No Information 8 Wilber Malik. [address] [facility], [facility] [address], [place], [place], [address], [place]. tel:[phone] Referring Provider: King Rajan, [address] [facility] [address], [place], [address] . tel:[phone] [facility], [address], [place], [place], [address], [place] tel:[phone] [place] Professional Post-Op (chief complaint) Encounter for examination following surgery 8 Myron OD Sarah. [address] [facility], [address], [place], [address], . tel:[phone] Referring Provider: King Rajan, [address] [facility] [address], [place], [address] . tel:[phone] [facility], [address], [place], [place], [address], [place] tel:[phone] SEC [place] Professional Post-Op (chief complaint) Encounter for examination following surgery 8 Myron OD Sarah. [address] [facility], [facility] [address], [place], [address], [place]. tel:[phone] Referring Provider: King Rajan, [address] [facility] [address], [place], [address] . tel:[phone] [facility], [address], [place], [place], [address], [place] tel:[phone] SEC [place] Professional Post-Op (chief complaint) Encounter for examination following surgery 8 Theresa Cooley. [address] [facility], [place], [address], [place]. tel:[phone] Referring Provider: King Rajan, [address] [facility] [address], [place], [address] . tel:[phone] [facility], [address], [place], [place], [address], [place] tel:[phone] [facility] No Information 8 Wilber Malik. [address] [facility], [address], [place], [place], [address], . tel:[phone] Referring Provider: King Rajan, [address] [facility] [address], [place], [address] . tel:[phone] [facility], [address], [place], [place], [address], [place] tel:[phone] SEC [place] Professional Testing only (chief complaint) Combined forms of age-related cataract, left eyeAge-related nuclear cataract, right eye Wilber Malik. [address] [facility], [address], [address], . tel:[phone] Referring Provider: King Rajan, [address] [facility] [address], [place], [address] . tel:[phone] [facility], [address], [place], [place], [address], [place] tel:[phone] SEC [place] Professional Complete Exam (chief complaint) Age-related nuclear cataract, right eyeCombined forms of age-related cataract, left eye Wilber Malik. [address] [facility], [address], [address], . tel:[phone] Referring Provider: King Rajan, [address] [facility] [address], [place], [address] . tel:[phone] [facility], [address], [place], [place], [address], [place] tel:[phone] SEC [place] Professional No Information Wilber Malik. [address] [facility], [address], [place], [address], [place]. tel:[phone] Family History Family Member Type Diagnosis Age At Onset Brother Problem (finding) Diabetes mellitus Problem (finding) Family history of Diabe sandi mellitus Payers Payer name Insurance type Covered democrat ID Ade schwartz(s) [place] DONNA [id number] [facility] Delio [id number] Social History Type Description Quantity Date Captured [...] CE OD with Standard IOL for distance. Impression/Plan - Ca taracts OU- Visually significant- [...] + Pentacam, CE video, and talk to JMN Combined forms of ag e-related cataract, left eye - Surgical risks, alts and benefits discussed Related to Combined forms of age-related cataract, left eye Follow up - Return i n 2 weeks for IOL master + Pentacam, CE video, and talk to JMN Assessments Type Assessment Date assessment Presence of intraocular lens Sep assessment Other secondary cataract, bilate ral assessment Vitreous degeneration, bilateral assessment Ocular hypertension, bilateral N Patient Care Teams Name Effective Dates (start - stop) Status Members No Information
== END 2024-11-12 08:28 | disposition home or self-care (01) ==
LOC: CHSIMG 08:29
PROVIDERS: PCP Internal Medicine; Visit Provider Orthopaedic Surgery
DX: M79.642 Pain in left hand (principal)
CPT/HCPCS: 73130

== ENCOUNTER 2025-04-11 02:49 | Emergency (ER) | payer MEDICARE, OTHER, SELFPAY ==
[2025-04-11] VITALS (10 sets, daily range): BP systolic 91–138; BP diastolic 53–116; PULSE 74–93; RESP 14–25; TEMP 36.6; O2SAT 86–92
--- NOTE | ~2025-04-11 | XR_ITS ---
Portable chest x-ray Comparison: 05/11/2023 Clinical History: Shortness of breath Findings: Questionable focal retrocardiac airspace opacity. Right lung clear. Cardiomediastinal maggy houette is stable. Bones and soft tissues are unremarkable. Impression: Questionable focal left lower lobe atelectasis or pneumonia. Reviewed, dictated and finalized at [facility]. Impression: Questionable focal left lower lobe atelectasis or pneumonia.
--- NOTE | ~2025-04-11 | CT_ITS ---
Clinical Indication: Shortness of breath CT Scan of the Chest with Contrast: Technique: Contiguous sections were acquired throughout the chest after intravenous administration of 100 cc of Omnipaque 350. Dose reduction technique was used on this scan by utilizing automated expos ure control and iterative reconstruction technique. The dose-length product (DLP) was 235.16 mGy-cm. COMPARISON: 11/26/2022 Findings: There is no evidence of any significant mediastinal, hilar or axillary lymphadenopathy. There is no f illing defect in the pulmonary arterial tree to suggest pulmonary embolus. There is no evidence of ao rtic dissection or aneurysm. There is no evidence of pleural or pericardial effusion. The lungs are clear, aside from mild biapical scarring. Images through the upper abdomen reveal no abnormalities. Impression: No evidence of pulmonary embolus, aortic dissection, or aortic aneurysm. No significant pulmonary abnormality. Reviewed, dictated and finalized at [facility]. Impression: No evidence of pulmonary embolus, aortic dissection, or aortic aneurysm. No significant pulmonary abnormality.
--- OUTSIDE RECORDS SUMMARY | 2025-04-11 02:53 | XMS_ITS | Referral Summary ---
Author Organization [facility] Address [address] [place] [address] Care Team Providers Care Journeyman Powerhouse Operator Name Role Phone Torito Gonzalez MD Primary Care Provider [phone] Sol [place] MD Unavailable [phone] Encounters Date Type Department Care Team Description 02/28/2025 9:00 AM CDT Office Visit [facility]) [facility] [address] [facility] Medical Office Building [address] [place] [address] Lydia Rojas MD S/P FESS (functional endoscopic sinus surgery) (Primary Dx); Chronic pansinusitis 01/15/2025 8:00 AM EXTENSION SERVICE SUPERVISOR Clinical Support [facility] [address] [facility] [address] [place] [address] Age-related osteoporosis without current pathological fracture (Primary Dx) from Last 3 Months Allergies Active Allergy [...] cavity 04/16/2024 Obstructive sleep apnea (adult) (pediatric) 0 12/2023 NSTEMI (non-ST elevated myocardial infarction) 0 01/15/2023 Age-related osteoporosis wit hout current pathological fracture 12/22/2022 Hx of colonic polyps 04/15/2022 Overview (04/15/2022): Added automatically from request for surgery [id number] Amaya's angina 04/17/2021 Assessment & Plan (08/23/2023 10:01 AM [...] (12/18/2018): Added automatically from request for surgery [id number] Keratosis, senilis 01/10/2017 Benign neoplasm of soft [...] or slept in a custodial (including now)? No 01/18/2023 Personal Safety Answer Date Recorded Have you ever been in or are you currently in a harmful physical or emotional relationship or is someone making you feel afraid or unsafe? Denies 08/07/2024 Comments No Sex and Gender Information Value Date Recorded Sex Assigned at Not on file Legal Sex Female 1:11 AM EXTENSION SERVICE SUPERVISOR Gender Identity Not on file Sexual Orientation Not on file Last Filed Vital Signs Vital Sign Reading Time Taken Comments Blood Pressure 134/85 01/15/2025 8:09 AM EXTENSION SERVICE SUPERVISOR Pulse 66 01/15/2025 8:09 AM EXTENSION SERVICE SUPERVISOR Temperature 36.3 C (97.3 F) 01/15/2025 8:09 AM EXTENSION SERVICE SUPERVISOR Respiratory Rate 18 01/15/2025 8:09 AM EXTENSION SERVICE SUPERVISOR Oxygen Saturation 100% 01/15/2025 8:09 AM EXTENSION SERVICE SUPERVISOR Inhaled Oxygen Concentration - - Weight 69.4 kg (153 lb) 02/28/2025 8:47 AM CDT Height 165.1 cm (5' 5 ) 02/28/2025 8:47 AM CDT Body Mass Index 25.46 02/28/2025 8:47 AM CDT Plan of Treatment Not on file Procedures Procedure Name Priority Date/Time Associated Diagnosis Comments SCREENING MAMMOGRAM BILATERAL W HECTOR Schedule Routine, Read Routine (OP Routine) 12/26/2024 7:47 AM EXTENSION SERVICE SUPERVISOR Visit for screening mammogram DEXA AXIAL SKELETON BONE DENSITY 1 OR MORE SITES Schedule Routine, Read Routine (OP Routine) 11/08/2022 12:23 PM EXTENSION SERVICE SUPERVISOR Osteopenia, unspecified location Asymptomatic menopausal state COLONOSCOPY 04/22/2022 7:32 AM CDT HEPATITIS C ANTIBODY Routine 02/05/2019 7:21 AM CDT from Last 3 Months or Most Recently Relevant to Health Maintenance Results * Screening Mammogram Bilateral W Hector (12/26/2024 7:47 AM EXTENSION SERVICE SUPERVISOR) Anatomical Region Laterality Modality Breast Bilateral Mammography 12/26/2024 8:36 AM EXTENSION SERVICE SUPERVISOR Impressions 12/26/2024 8:36 AM EXTENSION SERVICE SUPERVISOR No evidence of malignancy in either breast. FINAL ASSESSMENT: BI-RADS Category 2: Benign. RECOMMENDATION: Recommend return for annual screening mammogram in 12 months. Electronically signed by: Dane Purdy M.D. Narrative 12/26/2024 8:36 AM EXTENSION SERVICE SUPERVISOR EXAMINATION: BILATERAL SCREENING MAMMOGRAM COMPARISON: 12/08/2022, 11/08/2022, 10/26/2021, 10/20/2020 TECHNIQUE: Full-field 2D and digital breast tomosynthesis (DBT) images were obtained. CAD was utilized. BREAST PARENCHYMAL COMPOSITION: There are scattered areas of fibroglandular density. FINDINGS: There are benign bilateral breast calcifications. There is no suspicious mass, calcification, or distortion in either breast. There has been no suspicious interval change. us Alhaji Payan MD IMG MAMMO PROCEDURES Final Result * Dexa Axial Skeleton Bone Density 1 Or 2 Site (11/08/2022 12:23 PM EXTENSION SERVICE SUPERVISOR) Anatomical Region Laterality Modality Body N/A Other 11/08/2022 7:03 PM EXTENSION SERVICE SUPERVISOR Narrative 11/08/2022 7:05 PM EXTENSION SERVICE SUPERVISOR EXAM DESCRIPTION: DEXA AXIAL SKELETON BONE DENSITY 1 OR MORE SITES REASON FOR STUDY: 67 y/o year old F with given history of screening. Postmenopausal Clinical Research Director/Model: [employer] SL ([id number]/N [id number]) CLINICAL INFORMATION: Current height: 65 inches Maximum [...] being at or below -2.5 (Osteoporosis). IMPRESSION: Based on the lumbar spine bone mineral density (T-score -2.5 ) the patient has osteoporosis . REFERENCE: Bone mineral density: Normal (T-score above or = -1.0) Low bone mass (T-score between -1.0 and -2.5) replaces the previously used term osteopenia Osteoporosis (T-score = or below -2.5) Medical evaluation for secondary causes of low bone mineral density may be appropriate. FRAX is a World Health Organization validated fracture risk assessment tool that calculates a person's 10 year probability of a major osteoporosis related fracture and hip fracture. According to the National Osteoporosis Foundation guidelines, postmenopausal [...] Josh Avalos M.D. MF: ANTOINE Report ID: [id number] Reading Location: [id number] Procedure Note Josh Avalos MD - 11/08/2022 EXAM DESCRIPTION: DEXA AXIAL SKELETON BONE DENSITY 1 OR MORE SITES REASON FOR STUDY: 67 y/o year old F with given history ofscreening. Postmenopausal Clinical Research Director/Model: [employer] SL (S/N [id number]) CLINICAL INFORMATION: Current height: 65 inches Maximum [...] Josh Avalos M.D. MF: ANTOINE Report ID: [id number] Reading Location: [id number] us Alhaji Payan MD IMG DXA PROCEDURES Final R esult * COLONOSCOPY (04/22/2022 7:32 AM CDT) Anatomical Region Laterality Modality Other Narrative Procedure Note Jaciel Mott MD - 04/22/2022 7:32 AM CDT [facility] Patient Name: Gabbie Chris Procedure Date: 04/22/2022 7:32 AM Date of : 1955 Admit Type: Outpatient Age: 66 Gender: Female Attending MD: Jaciel Mott M.D. Room: [facility] ENDOSCOPY ROOM 2 Note Status: Finalized Patient [...] scope was passed under direct vision. TheColonoscope [id number] was introduced through the anus and advanced [...] history of colonic polyps CPT copyright 2020 [employer]. All rights reserved. The codes documented in this report are preliminary and upon garment looper reviewmay be revised to meet current compliance requirements. Recognized by the [employer] for promoting quality in endoscopy us Jaciel Mott MD ENDOSCOPY PROCEDURES Final Re sult * Hepatitis C antibody (02/05/2019 7:21 AM CDT) Hep C Ab Negative Negative [facility] ([place]) Comment:Testing performed by : [facility], [address] [place] [address], [place]., [address] Blood specimen (specimen) 02/05/2019 7:21 AM CDT 02/05/2019 11:10 AM CDT Narrative [facility] - 02/05/2019 11:58 AM CDT us Torito Gonzalez MD LAB MICROBIOLOGY - GENERAL ORDERABLES Final Result [facility] ([place]) [address] [facility] [id number] from Last 3 Months or Most Recently Relevant to Health Maintenance Insurance [facility]ICARE [facility] MEDICARE [facility] Advance Directives For more information, please contact: [phone] * Full Code (Latest Code Status on File) Date Activated Date Inactivated Comments 01/16/2023 12:06 AM 01/18/2023 6:06 PM * Full Code Date Activated Date Inactivated Comments 04/22/2022 7:36 AM 04/22/2022 2:11 PM * Full Code Date Activated Date Inactivated Comments 01/15/2019 10:37 AM 01/15/2019 4:19 PM * Full Code Date Activated Date Inactivated Comments 01/15/2019 10:37 AM 01/15/2019 10:37 AM Care Teams Journeyman Powerhouse Operator Relationship Specialty Start Date End Date Torito Gonzalez MD [address] [place] [address] PCP - General 02/25/17 [place] [address] [address] Consulting Physician Pulmonary Disease 01/30/24
--- OUTSIDE RECORDS SUMMARY | 2025-04-11 02:53 | XMS_ITS | Continuity of Care Document ---
Author Organization [employer] Address [address] [facility] [address] Giang [address] [place] [address] Phone Care Team Providers Care Transcript Evaluator Name Role Phone Luis M OD, Ayesha [...] Diagnoses Date Provider Providers Copied on Encounter [facility], [address] [place] [address] [address], [place], [place], [id number], [place] tel:[phone] SEC Arsenio [place] Professional Complete Exam (chief complaint) Presence of intraocular lensOther secondary cataract, bilateralVitre ous degeneration, bilateralOcula r hypertension, bilateral Nov- 3 Luis M OD Ayesha. [address] [place] [address] [address], [address], [place], [place], [address], [place]. tel:[phone] Referring Provider: Ayesha Asencio OD K, [address] [place] [address] [address], [place], [address] . tel:[phone] [facility], [id number] [place] [address] [address], [place], [place], [address], [place] tel:[phone] SEC Chapin [place] Professional Complete Exam (chief complaint) Presence of intraocular lensOther secondary cataract, bilateralVitre ous degeneration, bilateral Nov- 2 Wilber Malik. [address] [facility], [address], [place], [place], [address], [place]. tel:[phone] Referring Provider: King Rajan, [address] [facility] [address], [place], [address] . tel:[phone] [facility], [address], [place], [place], [id number], [place] tel:[phone] SEC Chap[place] Professional Complete Exam (chief complaint) Presence of intraocular lensOther secondary cataract, bilateralPVD (posterior vitreous detachment), right eyeVitreous syneresis of both eyes 1 Wilber Malik. [address] [facility], [address], [place], [place], [address], [place]. tel:[phone] Referring Provider: King Rajan, [address] [facility] [address], [place], [address] . tel:[phone] Office/outpa tient Visit, [facility], [address], [place], [place], [address], [place] tel:[phone] SEC Arsenio QUINTERO Professional 1 month PVD f/u (chief complaint) PVD (posterior vitreous detachment), right eye 0 Avel OD Michael. [address] [facility], [address] [facility], [place], [address], [place]. tel:[phone] Referring Provider: King Rajan, [address] [employer] [address], [place], [address] . tel:[phone] Office/outpa tient Visit, [facility], [address], [place], [place], [address], [place] tel:[phone] SEC Arsenio QUINTERO Professional Floater/co bweb in vision (chief complaint) PVD (posterior vitreous detachment), right eye 0 Avel OD Michael. [address] [facility], 6th Floor, [place], [address], [place]. tel:[phone] Referring Provider: King Rajan [address] [employer] [address], [place], [address] . tel:[phone] [facility], [address], [place], [place], [address], [place] tel:[phone] SEC Arsenio QUINTERO Professional PCIOL Post OP (chief complaint) Encounter for examination following surgery 8 Myron OD Sarah. [address] [facility], [address], [place], [address], [place]. tel:[phone] Referring Provider: King Rajan, [address] [facility] [address], [place], [address] . tel:[phone] [facility], [address], [place], [place], [address], [place] tel:[phone] SEC Arsenio [place] Professional Post-Op (chief complaint) Encounter for examination following surgery Jan- 8 Myron OD Sarah. [address] [facility], [facility] [address], [place], [address], [place]. tel:[phone] Referring Provider: King Rajan, [address] [facility] [address], [place], [address] . tel:[phone] [facility], [address], [place], [place], [address], [place] tel:[phone] SEC Arsenio [place] Professional Post-Op (chief complaint) Encounter for examination following surgery 8 Cardenas Lenora. [address] [facility], [place], [address], [place]. tel:[phone] Referring Provider: King Rajan, [address] [facility] [address], [place], [address] . tel:[phone] [facility], [address], [place], [place], [address], [place] tel:[phone] [facility] No Information 8 Wilber Malik. [address] [facility], [facility] [address], [place], [place], [address], [place]. tel:[phone] Referring Provider: King Rajan, [address] [facility] [address], [place], [address] . tel:[phone] [facility], [address], [place], [place], [address], [place] tel:[phone] SEC Chapin [place] Professional Post-Op (chief complaint) Encounter for examination following surgery 8 Myron OD Sarah. [address] [facility], [address], [place], [address], . tel:[phone] Referring Provider: King Rajan, [address] [facility] [address], [place], [address] . tel:[phone] [facility], [address], [place], [place], [address], [place] tel:[phone] SEC Chap[place] Professional Post-Op (chief complaint) Encounter for examination following surgery 8 Myron OD Sarah. [address] [facility], [facility] [address], [place], [address], [place]. tel:[phone] Referring Provider: King Rajan, [address] [facility] [address], [place], [address] . tel:[phone] [facility], [address], [place], [place], [address], [place] tel:[phone] SEC Arsenio [place] Professional Post-Op (chief complaint) Encounter for examination following surgery 8 Theresa Cooley. [address] [facility], [place], [address], [place]. tel:[phone] Referring Provider: King Rajan, [address] [facility] [address], [place], [address] . tel:[phone] [facility], [address], [place], [place], [address], [place] tel:[phone] [facility] No Information 8 Wilber Malik. [address] [facility], [address], [place], [place], [address], . tel:[phone] Referring Provider: King Rajan, [address] [facility] [address], [place], [address] . tel:[phone] [facility], [address], [place], [place], [address], [place] tel:[phone] SEC Arsenio [place] Professional Testing only (chief complaint) Combined forms of age-related cataract, left eyeAge-related nuclear cataract, right eye Wilber Malik. [address] [facility], [place], [address], . tel:[phone] Referring Provider: King Rajan, [address] [facility] [address], [place], [address] . tel:[phone] [facility], [address], [place], [place], [address], [place] tel:[phone] SEC [place] Professional Complete Exam (chief complaint) Age-related nuclear cataract, right eyeCombined forms of age-related cataract, left eye Wilber Malik. [address] [facility], [place], [address], . tel:[phone] Referring Provider: King Rajan, [address] [facility] [address], [place], [address] . tel:[phone] [facility], [address], [place], [place], [address], [place] tel:[phone] SEC Arsenio [place] Professional No Information Wilber Malik. [address] [facility], [place], [address], [place]. tel:[phone] Family History Family Member Type Diagnosis Age At Onset Brother Problem (finding) Diabetes mellitus Problem (finding) Family history of Diabe sandi mellitus Payers Payer name Insurance type Covered democrat ID Ade schwartz(s) [place] DON[place] [id number] [facility] Delio [id number] Social History Type Description Quantity Date Captured [...] Related to Encounter for examination following surgery Follow up - Patient will return as [...]
--- OUTSIDE RECORDS SUMMARY | 2025-04-11 02:53 | XMS_ITS | Clinical Summary ---
Author Organization [facility] Address [address] [place] [address] Phone Care Team Providers Care Rib Stiffener And Heel Dipper Name Role Phone Torito Gonzalez MD Primary [...] daily. DX J44.9 COPD 360 mL 5 08/03/202 3 Active Perforomist 20 MCG/2ML Nebulizer Soln USE 1 VIAL IN NEBULIZER ONCE DAILY 3 Active budesonide (PULMICORT) 0.5 MG/2ML Suspension USE 1 VIAL IN NEBULIZER ONCE DAILY 3 Active methylPREDNISol one (MEDROL DOSPACK) 4 MG Tablet Therapy Pack Use as per instructions on package. 21 Tablet 5 Active meloxicam (MOBIC) 7.5 MG Tablet Take 1 Tablet by mouth daily as needed for Mild or more severe pain. 30 Tablet 3 5 Active Active Problems Problem Noted Date Diagnosed Date Age-related osteoporosis wit hout current pathological fracture 11/19/2024 Dyspepsia 11/19/2024 GERD without esophagitis 05/17/2024 Eczema 11/16/2023 TOOTIE (obstructive sleep apnea) 12/06/2022 Centrilobular emphysema 10/07/2022 Allergic rhinitis 10/07/2022 Essential (primary) hypertension 10/02/2013 Resolved Problems Problem Noted Date Diagnosed Date Resolved Date Hyperlipidemia 10/02/2013 05/17/2024 Encounters Date Type Department Care Team Description 03/11/2025 10:30 AM CDT Office Visit [facility] Internal Medicine [facility] [address] [place] [address] Torito Gonzalez MD Acute bilateral low back pain with right-sided sciatica (Primary Dx) Discharge Disposition: Discharged to home or Selfcare 03/11/2025 Travel 03/04/2025 Results Follow-Up [facility] Internal Medicine [facility] [place] [address] Torito Gonzalez MD XR LUMBAR SPINE MINIMUM 4 VIEWS 02/25/2025 9:15 AM CDT - 02/25/2025 11:59 PM CDT Hospital Encounter [facility] Diagnostic Radiology [address] [place] [address] Torito Gonzalez MD Discharge Disposition: Discharged to home or Selfcare 02/25/2025 9:14 AM CDT [facility] [place] [address] Torito Gonzalez MD Discharge Disposition: Discharged to home or Selfcare 02/25/2025 8:30 AM CDT Office [facility] [address] [place] [address] Torito Gonzalez MD Acute bilateral low back pain with right-sided sciatica (Primary Dx); Acute pain of right hip Discharge Disposition: Discharged to home or Selfcare 02/25/2025 Travel from Last 3 Months Immunizations Immunization Administration Dates Next Due Covid-19, Mrna, Lnp-s, Pf, 30 Mcg/0.3 Ml Dose (P fizer) 02/24/2021,02/03/2021 Influenza Vaccine greater than 3 yrs 09/11/2024 Influenza Vaccine, Quadrivalent, PF 09/14/2022,1 Influenza, High-dose, Quadrivalent 09/17/2021 Influenza, Quadrivalent, Adjuvanted 08/17/2023 Pneumococcal conjugate PCV20 , polysaccharide DAQ134 conjugate, adjuvant, PF 10/07/2022 Family History Medical [...] drink = 0.6 oz pur e alcohol) [facility] Utilities Answer Date Recorded In the past 12 months has [employer], gas, oil, or water [employer] threatened to shut off services in your home? No 02/25/2025 Social Connection and Isolat ion Panel [NHANES] Answer Date Recorded In a typical week, how many times do you talk on the phone with family, friends, or neighbors? More than three times a week 02/25/2025 How often do you get togethe r with friends or relatives? Twice a week 02/25/2025 How often do you attend [facility] or [facility] services? More than 4 times per year 02/25/2025 Do you belong to any clubs o r organizations such as mandaen groups, unions, fraternal or athletic groups, or school groups? Yes 02/25/2025 How often do you attend meet ings of the clubs or organizations you belong to? More than 4 times per year 02/25/2025 Are you , , di vorced, , never , or living with a partner? 02/25/2025 AUDIT-C Answer Date Recorded Q1: How often do you have a drink containing alc ohol? Monthly or less 02/25/2025 Q2: How many drinks containi ng alcohol do you have on a typical day when you are drinking? 1 or 2 02/25/2025 Q3: How often do you have si x or more drinks on one occasion? Never 02/25/2025 Overall Financial Resource Strain (CARDIA) Answe r Date Recorded How hard is it for you to pa y for the very basics like food, housing, medical care, and heating? Not hard at all 02/25/2025 PHQ-2 Answer Date Recorded Total Score - Questions 1-9 0 01/28 [facility] - Occupational Stress Questionnaire Answer Date Recorded Do you feel stress - tense, restless, nervous, or anxious, or unable to sleep at night because your mind is troubled all the time - these days? Not at all 02/25/2025 Exercise Vital Sign Answer Date Recorde d On average, how many days pe r week do you engage in moderate to strenuous exercise (like a brisk walk)? 5 days 02/25/2025 On average, how many minutes do you engage in exercise at this level? 30 min 02/25/2025 Hunger Vital Sign Answer Date Recorded Within the past 12 months, y ou worried that your food would run out before you got the money to buy more. Never true 02/26/20 25 Within the past 12 months, t he food you bought just didn't last and you didn't have money to get more. Never true 02/25/2025 PRAPARE - Transportation Answer Date Re corded In the past 12 months, has l ack of transportation kept you from medical appointments or from getting medications? No 01/28 In the past 12 months, has l ack of transportation kept you from meetings, work, or from getting things needed for daily living? No 02/25/2025 Housing Stability Vital Sign Answer Lino e [...] place to sleep or slept in a intermediate (including now)? Patient declined 11/16/2023 Housing Stability Vital Sign Answer Lino e Recorded In the last 12 months, was t here a time when you were not able to pay the mortgage or rent on time? No 02/25/2025 In the past 12 months, how m any times have you moved where you were living? 0 02/25/2025 At any time in the past 12 m ont, were you homeless or living in a intermediate (including now)? No 02/25/2025 Education Answer Date Recorded What is the highest level of school you have completed or the highest degree you have received? Master's degree (e.g., MA, MS, Nathalia, MEd, MASTER WELDER, VANESSA) 02/10/2023 Sexually Active Control Partners Comments Not Currently Comments No Sex and Gender Information Value Date Recorded Sex Assigned at Not on file Legal Sex Female 10:44 PM CDT Gender Identity Not on file Sexual Orientation Not on file Last Filed Vital Signs Vital Sign Reading Time Taken Comments Blood Pressure 114/68 03/11/2025 10:20 AM CDT Pulse 56 03/11/2025 10:20 AM CDT Temperature 36.1 C (97 F) 03/11/2025 10:20 AM CDT Respiratory Rate 12 05/17/2024 8:16 AM CDT Oxygen Saturation 97% 03/11/2025 10:20 AM CDT Inhaled Oxygen Concentration - - Weight 74.8 kg (165 lb) 03/11/2025 10:20 AM CDT Height 165.1 cm (5' 5 ) 03/11/2025 10:20 AM CDT Body Mass Index 27.46 03/11/2025 10:20 AM CDT Plan of Treatment Upcoming Encounters Date Type Department Care Team (Late st Contact Info) Description 05/20/2025 8:00 AM CDT Office Visit [facility] [address] [place] [id number] Torito Gonzalez MD [address] [place] [address] Health Maintenance Due Date Last Done Comments Hepatitis C Virus (HCV) Screening 1955 TdaP Immunization 1955 Cologuard 2003 Immunochemical Fecal Occult Blood 09/01/2022 09/01/2021, 08/13/2020 DEXA Bone Density 11/08/2024 11/08/2022, , 06/13/2017, Additional history exists Mammogram 12/26/2025 12/26/2024, 10/28, 10/26/2021, Additional history exists Colonoscopy 04/22/2032 04/22/2022, 03/29, 04/22/2022, Additional history exists Colorectal Cancer Screening 04/22/2032 04/22/2022, 03/29, 04/22/2022, Additional history exists Pneumococcal Immunization (50+ years) Completed 10/07/2022 Pneumococcal Immunization Combined Discontinued 10/07/2022 Respiratory Syncytial Virus (RSV) Immunization (Adult) Completed 11/23/2023 SARS-COV-2 Immunization Discontinued 11/23/20 23, 02/22/2023, 11/11/2021, Additional history exists Influenza Immunization Completed 4, 08/17/2023, 09/14/2022, Additional history exists Hepatitis B Immunization Aged Out No longer eligible based on patient's age to complete this topic Meningococcal Immunization (ACWY) Aged Out No longer eligible based on patient's age to complete this topic Rotavirus Immunization Aged Out No lo nger eligible based on patient's age to complete this topic Zoster Immunization Discontinued Procedures Procedure Name Priority Date/Time Associated Diagnosis Comments PULMONOLOGY CONSULT 03/01/2025 1 2:00 AM CDT XR LUMBAR SPINE MINIMUM 4 VIEWS Routine 02/25/2025 9:32 AM CDT Acute bilateral low back pain with right-sided sciatica XR HIP 2 VIEWS UNILATERAL RIGHT Routine 02/25/2025 9:31 AM CDT Acute pain of right hip HM COLONOSCOPY 04/22/2022 12:00 AM CDT MAMMOGRAM BILATERAL GENERIC 10/26/2021 12:00 AM TRANSITION SOCIAL WORKER from Last 3 Months or Most Recently Relevant to Health Maintenance Results * PULMONOLOGY CONSULT (03/01/2025 12:00 AM CDT) 03/01/2025 us Provider Scan GENERIC SCAN ORDERS CONSULT Estefania l Result SCAN * XR LUMBAR SPINE MINIMUM 4 VIEWS (02/25/2025 9:32 AM CDT) Anatomical Region Laterality Modality Spine, L-spine N/A Digital Radiogra phy 03/01/2025 9:23 AM CDT Impressions 03/01/2025 9:25 AM CDT IMPRESSION: Normal right hip radiographs. Multilevel lumbar spine degenerative disc disease greatest and moderate at L4-L5, L5-S1 and T11-T12. Narrative 03/01/2025 9:25 AM CDT EXAM DESCRIPTION: XR HIP 2 VIEWS UNILATERAL RIGHT; XR LUMBAR SPINE MINIMUM 4 VIEWS REASON FOR STUDY: right hip pain worseing x 1 month. no trauma. no surgery. ; right low back pain radiates down right leg. pain worsening x 1 month. no trauma. no surgery. FINDINGS: Two views of the right hip are submitted for interpretation. No prior examination is available for comparison. The alignment of the right hip is anatomic. The right hip joint space is normal. No fracture. Five views of the lumbar spine are submitted for interpretation without comparison. Grade 1 anterolisthesis at L4-L5. Bilateral multilevel facet osteoarthritis. Multilevel lumbar spine degenerative disc disease is greatest and moderate at L4-L5, L5-S1 and T11-T12. No compression fracture. THIS IS AN ELECTRONICALLY VERIFIED FINAL REPORT 03/01/2025 9:23 AM - Electronically signed by Damien Lugo M.D. TH: Report ID: [id number] Reading Location: [id number] Procedure Note Damien Lugo MD - 03/01/2025 EXAM DESCRIPTION: XR HIP 2 VIEWS UNILATERAL RIGHT; XR LUMBAR SPINE MINIMUM 4 VIEWS REASON FOR STUDY: right hip pain worseing x 1 month. no trauma. no surgery. ; right low back pain radiates down right leg. pain worsening x 1 month. no trauma. no surgery. FINDINGS: Two views of the right hip are submitted for interpretation. No prior examination is available for comparison. The alignment of the right hip is anatomic. The right hip joint space is normal. No fracture. Five views of the lumbar spine are submitted for interpretation without comparison. Grade 1 anterolisthesis at L4-L5. Bilateral multilevel facet osteoarthritis. Multilevel lumbar spine degenerative disc disease is greatest and moderate at L4-L5, L5-S1 and T11-T12. No compression fracture. THIS IS AN ELECTRONICALLY VERIFIED FINAL REPORT 03/01/2025 9:23 AM - Electronically signed by Damien Lugo M.D. TH: TH Report ID: [id number] Reading Location: [id number] IMPRESSION: Normal right hip radiographs. Multilevel lumbar spine degenerative disc disease greatest and moderate at L4-L5, L5-S1 and T11-T12. Torito Gonzalez MD IM DIAGNOSTIC ORDERABLES F inal Result * XR HIP 2 VIEWS UNILATERAL RIGHT (02/25/2025 9:31 AM CDT) Anatomical Region Laterality Modality LOWER EXTREMITY, hip Right Digital Rad iography 03/01/2025 9:23 AM CDT Impressions 03/01/2025 9:25 AM CDT IMPRESSION: Normal right hip radiographs. Multilevel lumbar spine degenerative disc disease greatest and moderate at L4-L5, L5-S1 and T11-T12. Narrative 03/01/2025 9:25 AM CDT EXAM DESCRIPTION: XR HIP 2 VIEWS UNILATERAL RIGHT; XR LUMBAR SPINE MINIMUM 4 VIEWS REASON FOR STUDY: right hip pain worseing x 1 month. no trauma. no surgery. ; right low back pain radiates down right leg. pain worsening x 1 month. no trauma. no surgery. FINDINGS: Two views of the right hip are submitted for interpretation. No prior examination is available for comparison. The alignment of the right hip is anatomic. The right hip joint space is normal. No fracture. Five views of the lumbar spine are submitted for interpretation without comparison. Grade 1 anterolisthesis at L4-L5. Bilateral multilevel facet osteoarthritis. Multilevel lumbar spine degenerative disc disease is greatest and moderate at L4-L5, L5-S1 and T11-T12. No compression fracture. THIS IS AN ELECTRONICALLY VERIFIED FINAL REPORT 03/01/2025 9:23 AM - Electronically signed by Damien Lugo M.D. TH: TH Report ID: [id number] Reading Location: [id number] Procedure Note Damien Lugo MD - 03/01/2025 EXAM DESCRIPTION: XR HIP 2 VIEWS UNILATERAL RIGHT; XR LUMBAR SPINE MINIMUM 4 VIEWS REASON FOR STUDY: right hip pain worseing x 1 month. no trauma. no surgery. ; right low back pain radiates down right leg. pain worsening x 1 month. no trauma. no surgery. FINDINGS: Two views of the right hip are submitted for interpretation. No prior examination is available for comparison. The alignment of the right hip is anatomic. The right hip joint space is normal. No fracture. Five views of the lumbar spine are submitted for interpretation without comparison. Grade 1 anterolisthesis at L4-L5. Bilateral multilevel facet osteoarthritis. Multilevel lumbar spine degenerative disc disease is greatest and moderate at L4-L5, L5-S1 and T11-T12. No compression fracture. THIS IS AN ELECTRONICALLY VERIFIED FINAL REPORT 03/01/2025 9:23 AM - Electronically signed by Damien Lugo M.D. TH: TH Report ID: [id number] Reading Location: [id number] IMPRESSION: Normal right hip radiographs. Multilevel lumbar spine degenerative disc disease greatest and moderate at L4-L5, L5-S1 and T11-T12. us Torito Gonzalez MD IMG DIAGNOSTIC ORDERABLES F inal Result * HM COLONOSCOPY (04/22/2022 12:00 AM CDT) 04/22/2022 us Not On File Provider PROCEDURE/MINOR SURGICAL OR DERABLES Final Result SCAN * MAMMOGRAM BILATERAL MISCELLANEOUS (10/26/2021 12:00 AM TRANSITION SOCIAL WORKER) 10/26/2021 us Not On File Provider IMG MAMMO ORDERABLES Final Result SCAN from Last 3 Months or Most Recently Relevant to Health Maintenance Insurance MEDIC[place] [address] Care Teams Rib Stiffener And Heel Dipper Relationship Specialty Start Date End Date Torito Gonzalez MD [address] [place] [address] PCP - General Internal Medicine 02/01/20 Guille Collier MD [address] [place] [address] Consulting Physician Pulmonary Disease 12/06/22
--- OUTSIDE RECORDS SUMMARY | 2025-04-11 02:53 | XMS_ITS | Encounter Summary ---
Author Organization [facility] Address [address] [place] [address] Phone Care Team Providers Care Slot Machine Repairer Name Role Phone Torito Gonzalez MD Primary Care Provider [phone] Guille Collier MD Unavailable Encounter Details Date Type Department Care Team (Late st Contact Info) Description 03/04/2025 Results Follow-Up [facility] - Internal Medicine - [place] [address] [place] [address] Torito Gonzalez MD [address] [place] [address] XR LUMBAR SPINE MINIMUM 4 VIEWS Social History Tobacco Use Types Packs/Day Years Used Date Smoking Tobacco: Former Cigarettes Q uit: 12/07/2009 Passive Smoke Exposure: Past Smokeless Tobacco: Never Alcohol Use Standard Drinks/Week Comments Not Currently 0 (1 standard drink = 0.6 oz pur e alcohol) [facility] Utilities Answer Date Recorded In the past 12 months has [employer] electric, gas, oil, or water company threatened [...] week 02/25/2025 How often do you attend chur ch or jainism services? More than 4 times per year 02/25/2025 Do you belong to any clubs o r organizations such as judaism groups, unions, fraternal or athletic groups, or [...] Total Score - Questions 1-9 0 01/28 [facility] - Occupational [...] a prison (including now)? Patient declined 11/16/2023 Housing Stability [...] any time in the past 12 m [facility], were you homeless or living in a prison (including now)? No 02/25/2025 Education Answer Date Recorded What is the highest level of school you have completed or the highest degree you have received? Master's degree (e.g., MA, MS, Nathalia, MEd, [employer], VANESSA) 02/10/2023 Sexually Active Control Partners Comments [...] - [place] [address] [place] [address] Torito Gonzalez MD [address] [place] [address] documented as of this encounter Visit Diagnoses Not on filedocumented in this encounter Additional Health Concerns Assessment Noted Time PHQ-9 Depression Total Score: 0 02/26/20 25 8:15 AM CDT documented as of this encounter Care Teams Slot Machine Repairer Relationship Specialty Start Date End Date Torito Gonzalez MD [address] [place] [address] PCP - General Internal Medicine 02/01/20 Guille Collier MD [address] [place] [address] Consulting Physician Pulmonary Disease 12/06/22 documented as of this encounter
--- OUTSIDE RECORDS SUMMARY | 2025-04-11 02:53 | XMS_ITS | Encounter Summary ---
Author Organization [facility] Healthcare Address [address] [place] [address] Care Team Providers Care Carbonator Name Role Phone Torito Gonzalez MD Primary Care Provider [phone] Sol Lincoln MD Unavailable [phone] Reason for Visit * Reason Onset Date Comments Scheduling Appointments 10/23/2021 no answe r to confirm mamm appointment Encounter Details Date Type Department Care Team ([facility] st Contact Info) Description 10/23/2021 Telephone [facility] [address] [place] [address] Maryanne Das RT Scheduling Appointments (no answer to confirm mamm appointment ) Social History Tobacco Use Types Packs/Day [...] on file Legal Sex Female 1:11 AM EMERGENCY MEDCL EMT Gender Identity Not on file Sexual Orientation Not on file documented as of this encounter Plan of Treatment Not on file documented as of this encounter Visit Diagnoses Not on filedocumented in this encounter Care Teams Carbonator Relationship Specialty Start Date End Date Torito Gonzalez MD [address] [place] [address] PCP - General 02/25/17 [place] [address] [place] [address] Consulting Physician Pulmonary Disease 01/30/24 documented as of this encounter
--- OUTSIDE RECORDS SUMMARY | 2025-04-11 02:53 | XMS_ITS | Data Portability ---
Author Organization [place] [facility], Main Office Address [address] [place] [address] Assessment No assessment recorded. Plan of Treatment Reminders Order Date Submit Date Provider Last Modified By Organization Details Last Modified Time Details Appointments None recorded. Lab None recorded. Referral None recorded. Procedures None recorded. Surgeries endoscopy, nasal/sinus , with frontal sinus exploration (SURG) 2022 023 [id number] [id number] Not available 00:33:17 Imaging None recorded. Medication Orders None recorded. Patient TargetsNo targets recorded. Patient Instructions Encounter Date Encounter Id Patient Instructions Last Modified By Organization Details Last Modified Time 02/17/2023 [id number] we will continue to work on her authorization for her biologic [email or web address] Not available 02/17/2023 11:27:01 Reason for Referral None Reported. Results Created Date Observation Date Name Description Value Unit Range Abnormal Flag Note LastModifiedBy Organization Detail LastModifiedTime 05/28/20 22 05/28/2022 POTAS SIUM potassium 4.4 mmol/ L 3.5-5. 1 Not Available [facility] (Lab) [address] [place], [address], 05/28/2022 09:30:08 05/28/20 22 05/28/2022 PLATE LET COUNT platelets 226 x10'3 /uL 150-40 0 Not Available [facility] (Lab) [address] [place], [address], 05/28/2022 09:18:10 05/28/20 22 05/28/2022 HEMOG LOBIN /ALYCE TOCRI T hemoglobin 15.0 g/dL 12.0-1 5.6 Not Available [facility] (Lab) [address] [place], [address], 05/28/2022 09:18:08 05/28/20 22 05/28/2022 HEMOG LOBIN /ALYCE TOCRI T hematocrit 45.8 % 35.7-4 5.7 high Not Available [facility] (Lab) [address] [place], [address], 05/28/2022 09:18:08 01/05/20 23 01/05/2023 POTAS SIUM potassium 3.6 mmol/ L 3.5-5. 1 Not Available [facility] (Lab) [address] [place], [address], 01/05/2023 08:35:39 01/05/20 23 01/05/2023 PLATE LET COUNT platelets 256 x10'3 /uL 150-40 0 Not Available [facility] (Lab) [address] [place], [address], 01/05/2023 08:35:19 01/05/20 23 01/05/2023 HEMOG LOBIN /ALYCE TOCRI T hemoglobin 15.0 g/dL 12.0-1 5.6 Not Available [facility] (Lab) [address] [place], [address], 01/05/2023 08:33:31 01/05/20 23 01/05/2023 HEMOG LOBIN /ALYCE TOCRI T hematocrit 45.9 % 35.7-4 5.7 high Not Available [facility] (Lab) [address] [place], [address], 01/05/2023 08:33:31 12/12/19 23 12/10/2022 CT, sinus es, w/o contr ast No observ ation record ed. [id number] [facility] [address] [place], [address], 01/27/2023 00:33:23 12/16/19 23 12/10/2022 CT, sinus es, w/o contr ast No observ ation record ed. [id number] [facility] Podiatry Office 1 [facility], [place], [address], 01/27/2023 00:33:23 Result Notes None recorded. Problems Name Problem SNOMED Code Status Onset Date Resolution Date Notes Provider Name and Address Organization Details Recorded Time Chronic left maxillary sinusitis 3719172179203 9101 Active 2021 Not Available [facility] 3 00:30:14 Postoperat ophelia pain 349590078 Active 2022 Not Available [facility] 3 00:30:14 Chronic maxillary sinusitis 71815082 Active 2022 Not Available [facility] 3 00:30:14 Chronic sphenoidal sinusitis 35380956 Active 2021 Not Available [facility] 3 00:30:14 Chronic sinusitis 45105762 Active 2021 Not Available [facility] 3 00:30:14 Chronic frontal sinusitis 78599022 Active 2021 Not Available [facility] 3 00:30:14 Chronic ethmoidal sinusitis 23206606 Active 2021 Not Available [facility] 3 00:30:14 Chronic pansinusit is 28991315 Active 2022 Not Available [facility] 3 00:30:14 Polyp of nasal sinus 16730187 Active 2022 TRACY Valdovinos [facility] 3 08:51:50 Problem Notes None recorded. Procedures Surgical History Date Name Laterality Status Provider Name and Address Organization Details Recorded Time 01/05/20 23 ENDOSCOPY, NASAL/SINUS, WITH FRONTAL SINUS EXPLORATION (SURG) completed Not Available [facility] 01/27/2023 00:33:17 05/28/20 22 ENDOSCOPY, NASAL/SINUS, W/ MAXILLARY ANTROSTOMY & TISSUE REMOVAL (SURG) completed Not Available [facility] 01/27/2023 00:33:17 Imaging Results Imaging Date Name Status LastModified by Organiz ation Details LastModified Time 12/10/2022 CT, sinuses, w/o contrast completed [id number] [facility] [address] [place], [address], 01/27/2023 00:33:23 12/10/2022 CT, sinuses, w/o contrast completed [id number] 026 [facility] Podiatry Office 1 [place], [address], 01/27/2023 00:33:23 Procedure Notes None recorded. Medical Equipment None Reported. Allergies Allergen ID Allergen Name Allergen Category Reaction Reaction Severity Criticality Documentation Date Start Date Code Code System Note Provider Name and Address Organization Details Recorded Time 03884 amoxicill in medicatio n Not available Not available Not available 01/27/2023 723 RxNorm Not Available [facility] 00:33:03 Medications Name Sig Start Date Stop [...] 2023 active Not Available Not Available Not Christine luther IanTAMIKO COVID-19 Ag Self Test kit Use as Directed on the Package active Not Available Not Available No t Available Vitals Date Recorded Body mass index (BMI) Body height Body temperature Body weight Provider Name and Address Organization Details Last Updated DateTime 06/08/2022 2.6 kg/m2 165.1 cm 97.7 [degF] 7212.12 g Not Available [facility] 01/27/2023 00:29:10 Date Recorded Body mass index (BMI) Body height Body temperature Body weight Provider Name and Address Organization Details Last Updated DateTime 07/28/2022 22.8 kg/m2 165.1 cm 96.9 [degF] 09360.87 g Not Available [facility] 01/27/2023 00:29:10 Date Recorded Body mass index (BMI) Body height Body temperature Body weight Provider Name and Address Organization Details Last Updated DateTime 12/14/2022 21.8 kg/m2 165.1 cm 97.9 [degF] 32961.6 g Not Available [facility] 01/27/2023 00:29:10 Date Recorded Body mass index (BMI) Body height Body temperature Body weight Provider Name and Address Organization Details Last Updated DateTime 01/13/2023 20.8 kg/m2 165.1 cm 97.6 [degF] 09524.05 g Not Available [facility] 01/27/2023 00:29:10 Date Recorded Body height Body mass index (BMI) Body weight Body temperature Provider Name and Address Organization Details Last Updated DateTime 02/17/2023 165.1 cm 22.1 kg/m2 25959.79 g 97.7 [degF] Una Kincaid CMA [place] [facility] [employer] 02/17/2023 11:11:02 Social History Question Answer Notes LastModified by Organizat ion Details LastModified Time Tobacco Smoking Status Never Smoker Not Available [facility] 01/27/2023 00:27:32 In The 14 Days Before Symptom Onset, Have You Had Close Contact With A Laboratory-confirm ed COVID-19 While That Case Was Ill? No [id number] Information not available 01/27/2023 In The 14 Days Before Symptom Onset, Have You Had Close Contact With A Person Who Is Under Investigation For COVID-19 While That Person Was Ill? No [id number] Information not available 01/27/2023 Have You Recently Traveled Abroad? No [id number] Information not available 01/27/2023 Sex: Unknown Functional Status Question Answer Note LastModified by Organizat ion Details LastModified Time What is your level of alcohol consumption? None [id number] Information not available 01/27/2023 Mental Status None recorded. Family History Relationship Description Onset Age of this Age Resolved Age Notes LastModified by Organization Details LastModified Time Father No current problems or disability [id number] Not available 01/27/2023 00:28:02 Mother No current problems or disability [id number] Not available 01/27/2023 00:28:02 Medical History Condition Response MRSA N SLEEP APNEA N ALLERGIES/HAYFEVER N LUNG DISEASE/DISORDER N HISTORY OF DRUG ABUSE N INSOMNIA N COPD N RADIATION / CHEMOTHERAPY N HIGH CHOLESTEROL / HYPERLIPIDEMIA N HYPERTHYROIDISM N BLOOD DISEASES N EAR OR HEARING PROBLEMS N HYPOTHYROIDISM N SHINGLES N DEPRESSION (INCLUDING POST ) N HAVE YOU BEEN HOSPITALIZED OR SEEN IN [facility] ER IN THE PAST YEAR ? [...] Diagnosis/Indication Diagnosis SNOMED-CT Code Diagnosis ICD10 Code Diagnosis Note [id number] MD GEOFFREY White_[facility] [place] [address] [place] [address] 02/18/2022 00:00:00 02/18/2022 12:42:24 [id number] Ned Tamera, MD [facility] [place] [address] [place] [address] 04/08/2022 00:00:00 04/08/2022 14:14:39 [id number] MD GEOFFREY [facility] [place] [address] [place] [address] 06/08/2022 00:00:00 06/08/2022 10:26:01 [id number] MD TIMMY [facility] [place] [address] [place] [address] 07/28/2022 00:00:00 07/28/2022 14:29:08 [id number] MD TIMMY [facility] [place] [address] [place] [address] 12/14/2022 00:00:00 12/14/2022 11:53:49 [id number] MD GEOFFREY [facility] [place] [address] [place] [address] 01/13/2023 00:00:00 01/13/2023 11:12:34 [id number] MD GEOFFREY [facility] [place] [address] [place] [address] 02/17/2023 10:35:51 02/17/2023 11:42:47 Chronic sinusitis 24624669 J32.9 Health Concerns Section Related Observation LastModified by Organization Detai ls LastModified Time None Recorded Concern Status LastModified by Organization Details LastModified Time None Recorded Advance Directives Directive None Recorded Payers Encounter Date Sequence Insurance Name Policy Number Policy Woodard Covered Member ID Woodadr Member ID Guarantor Name 02/17/2023 1 MEDICARE-[place] (MEDICARE[place] Gabbie Chris [id number] Gabbie Chris 02/17/2023 2 [facility] (MEDICARE SUPPLEMENT) Gabbie Chris [id number] Gabbie Chris Notes Date Note Type Note Provider Name and Address Organization Details Recorded Time 02/17/2023 text/html this patient reports thatDupixent is working well and we are working on her pre authorization for permanent prescription. Ned Philip MD [address] [place] [address], [place] [address], [place], [address], [place] [email or web address] [facility] 02/17/2023 11:27:23 OBGyn Episode No OBEpisode recorded.
--- OUTSIDE RECORDS SUMMARY | 2025-04-11 02:53 | XMS_ITS | Clinical Summary ---
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 Name Role Phone Torito Gonzalez MD Primary Care Provider [phone] Sol Lincoln MD Unavailable [phone] Allergies Active Allergy Reactions Criticality Noted Date [...] (pediatric) 12/2023 NSTEMI (non-ST elevated myocardial infarction) 0 01/15/2023 Age-related osteoporosis wit hout current pathological fracture 12/22/2022 Hx of colonic polyps 04/15/2022 Overview (04/15/2022): Added automatically from request for surgery [id number] Prinzmetal's angina 04/17/2021 Assessment & Plan (08/23/2023 10:01 [...] (12/18/2018): Added automatically from request for surgery [id number] Keratosis, senilis 01/10/2017 Benign neoplasm of soft [...] Description 02/28/2025 9:00 AM CDT Office Visit [facility]) - [facility] [address] [facility] [address] [place] [address] Lydia Rojas MD S/P FESS (functional endoscopic sinus surgery) (Primary Dx); Chronic pansinusitis 01/15/2025 8:00 AM PHYSICIAN GENERAL INTERNAL MEDICINE Clinical Support [facility] [address] [facility] [address] [place] [address] Age-related osteoporosis without current pathological fracture (Primary Dx) from Last 3 Months Surgical History Surgery Date Site/Laterality Comments OTHER SURGICAL HISTORY 11/28/1976 - 11/27/1977 : OTHER SURGICAL HISTORY 11/28/1970 - 11/27/1971 : TOTAL ABDOMINAL HYSTERECTOMY W/ BILATERAL SALPINGOOPHORECTOMY 11/28/1995 - 11/27/1996 WESLEY/BSO APPENDECTOMY 11/28/1995 - 11/27/1996 Appendectomy CARDIAC CATHETERIZATION [...] Influenza A Restless leg syndrome Arthritis Cataract 2017 Sleep apnea Asthma Lung disease COPD (chronic obstructive pu lmonary disease) (HCC) Chronic sinusitis, unspecified location Hypertrophy of both inferior nasal turbinates Family History Medical History Relation Name Comments Congenital heart disease Brother 1 Con genital heart disease; Throat cancer Brother 1 HPV Virus Diabetes Brother 2 Joe Diabetes mellit ; Hypertension Brother 2 Joe Hypertension Brother 3 [...] How often do you attend chur or moravian services? More than 4 times [...] on file Legal Sex Female 1:11 AM PHYSICIAN GENERAL INTERNAL MEDICINE Gender Identity Not on file Sexual Orientation [...] Comments Blood Pressure 134/85 01/15/2025 8:09 AM PHYSICIAN GENERAL INTERNAL MEDICINE Pulse 66 01/15/2025 8:09 AM PHYSICIAN GENERAL INTERNAL MEDICINE Temperature 36.3 C (97.3 F) 01/15/2025 8:09 AM PHYSICIAN GENERAL INTERNAL MEDICINE Respiratory Rate 18 01/15/2025 8:09 AM PHYSICIAN GENERAL INTERNAL MEDICINE Oxygen Saturation 100% 01/15/2025 8:09 AM PHYSICIAN GENERAL INTERNAL MEDICINE Inhaled Oxygen Concentration - - Weight 69.4 kg (153 lb) 02/28/2025 8:47 AM CDT Height 165.1 cm (5' 5 ) 02/28/2025 8:47 AM CDT Body Mass Index 25.46 02/28/2025 8:47 AM CDT Plan of Treatment Health Maintenance Due Date Last Done Comments DTaP/Tdap/Td Vaccine (1 - Tdap) 1964 Hepatitis B Screening 1971 Pneumococcal vaccine 65+ (1 of 2 - PCV) 1972 Zoster Vaccine (1 of 2) 2003 Well Visit 65+ 05/28/2020 05/28/2019, 04/29, 05/16/2017 Depression Screening 09/01/2022 09/01/2021, 08/13/2020, 05/28/2019, Additional history exists Covid-19 Vaccine (3 2023-2 5 season) 2024 02/24/2021, 02/03/2021 Osteoporosis Screening-Bone Density Scan 11/08/2024 11/08/2022, 11/08/2022, 10/20/2020, Additional history exists Fall Risk Assessment 08/07/2025 08/07/2024 Breast Cancer Screening-Mammogram 12/26/2025 12/26/2024, 11/08/2022, 11/08/2022, Additional history exists Colon Cancer Screening-Colonoscopy 04/22/2032 04/22/2022, 12/06/2016, 12/06/2016, Additional history exists Hepatitis C Screening Completed 02/05/2019 Colon Cancer Screening-CT Colonography Discontinued 04/22/2022, 12/06/2016, 12/06/2016, Additional history exists Colon Cancer Screening-DNA Stool Discontinued 04/22/2022, 12/06/2016, 12/06/2016, Additional history exists Colon Cancer Screening-FIT Discontinued 04/22, 12/06/2016, 12/06/2016, Additional history exists Colon Cancer Screening-Sigmoidoscopy Discontinued 04/22/2022, 12/06/2016, 12/06/2016, Additional history exists Influenza Vaccine Completed 09/11/2024, , 09/11/2020 Procedures Procedure Name Priority Date/Time Associated Diagnosis Comments SCREENING MAMMOGRAM BILATERAL W HECTOR Schedule Routine, Read Routine (OP Routine) 12/26/2024 7:47 AM PHYSICIAN GENERAL INTERNAL MEDICINE Visit for screening mammogram DEXA AXIAL SKELETON BONE DENSITY 1 OR MORE SITES Schedule Routine, Read Routine (OP Routine) 11/08/2022 12:23 PM PHYSICIAN GENERAL INTERNAL MEDICINE Osteopenia, unspecified location Asymptomatic menopausal state COLONOSCOPY 04/22/2022 7:32 AM CDT HEPATITIS C ANTIBODY Routine 02/05/2019 7:21 AM CDT from Last 3 Months or Most Recently Relevant to Health Maintenance Results * Screening Mammogram Bilateral W Hector (12/26/2024 7:47 AM PHYSICIAN GENERAL INTERNAL MEDICINE) Anatomical Region Laterality Modality Breast Bilateral Mammography 12/26/2024 8:36 AM PHYSICIAN GENERAL INTERNAL MEDICINE Impressions 12/26/2024 8:36 AM PHYSICIAN GENERAL INTERNAL MEDICINE No evidence of malignancy in either breast. FINAL ASSESSMENT: BI-RADS Category 2: Benign. RECOMMENDATION: Recommend return for annual screening mammogram in 12 months. Electronically signed by: Dane Purdy M.D. Narrative 12/26/2024 8:36 AM PHYSICIAN GENERAL INTERNAL MEDICINE EXAMINATION: BILATERAL SCREENING MAMMOGRAM COMPARISON: 12/08/2022, 11/08/2022, [...] 1 Or 2 Site (11/08/2022 12:23 PM PHYSICIAN GENERAL INTERNAL MEDICINE) Anatomical Region Laterality Modality Body N/A Other 11/08/2022 7:03 PM PHYSICIAN GENERAL INTERNAL MEDICINE Narrative 11/08/2022 7:05 PM PHYSICIAN GENERAL INTERNAL MEDICINE EXAM DESCRIPTION: DEXA AXIAL SKELETON BONE DENSITY 1 OR MORE SITES REASON FOR STUDY: 67 y/o year old F with given history of screening. 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 MF: ANTOINE Report ID: [id number] Reading Location: [place] [address] Procedure Note Josh Avalos MD - 11/08/2022 EXAM DESCRIPTION: DEXA AXIAL SKELETON BONE DENSITY 1 OR MORE SITES REASON FOR STUDY: 67 y/o year old F with given history ofscreening. 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 MF: ANTOINE Report ID: [id number] Reading Location: [id number] Alhaji Payan MD IMG DXA PROCEDURES Final [...] MD: Jaciel Mott M.D. Room: [facility] ENDOSCOPY ROOM 2 Note Status: Finalized Patient [...] scope was passed under direct vision. TheColonoscope [id number] was introduced through the anus and advanced [...] history of colonic polyps CPT copyright 2020 [employer]. All rights reserved. The codes documented in this report are preliminary and upon manager integrity reviewmay be revised to meet current compliance requirements. Recognized by the [employer] for promoting quality in endoscopy us Jaciel Mott MD ENDOSCOPY PROCEDURES Final Re sult * Hepatitis C antibody (02/05/2019 7:21 AM CDT) Hep C Ab Negative Negative [facility]) Comment:Testing performed by : [facility], [address] [place] [address], [place]., [address] Blood specimen (specimen) 02/05/2019 7:21 AM CDT 02/05/2019 11:10 AM CDT Narrative [facility] ([facility]) - 02/05/2019 11:58 AM CDT us Torito Gonzalez MD LAB MICROBIOLOGY - GENERAL ORDERABLES Final Result [facility] [address] [facility] [place] [address] from Last 3 Months or Most Recently Relevant to Health Maintenance Insurance MEDICARE [place] [place] MEDICARE [facility] [place] [address] MEDICARE [facility] Address: [address] [address] Advance Directives For more information, please contact: [phone] * Full Code (Latest Code Status on File) Date Activated Date Inactivated Comments 01/16/2023 12:06 AM 01/18/2023 6:06 PM * Full Code Date Activated Date Inactivated Comments 04/22/2022 7:36 AM 04/22/2022 2:11 PM * Full Code Date Activated Date Inactivated Comments 01/15/2019 10:37 AM 01/15/2019 4:19 PM * Full Code Date Activated Date Inactivated Comments 01/15/2019 10:37 AM 01/15/2019 10:37 AM Care Teams Woven Blind Loom Tender Relationship Specialty Start Date End Date Torito Gonzalez MD [address] [place] [address] PCP - General 02/25/17 [place] [address] [facility] [address] [place] [address] Consulting Physician Pulmonary Disease 01/30/24
--- NOTE | 2025-04-11 03:04 | ECG_ITS ---
Test Date: 2025-04-11 03:14:04 Measurements Intervals Ola Rate: 87 P: -18 SD: 151 QRS: -17 QRSD: 90 T: 31 QT: 375 QTc: 452 Interpretive Statements SINUS RHYTHM No previous ECG available for comparison Electronically Signed On 04-11-2025 15:59:11 CDT by Jeremi Martinez M.D.
--- NOTE | 2025-04-11 03:06 | ED_ITS ---
HPI - SOB/Dyspnea General Chief Complaint: Upper Respiratory Infection Stated Complaint: difficulty breathing Time Seen by Provider: 04/11/25 02:58 Source: patient Mode of arrival: ambulatory Limitations: no limitations History of Present Illness HPI Narrative: 69-year-old female a history of hypertension, COPD, sinusitis presents to the ED with a 3 day history of -- worsening shortness of breath -- cough with production of mucopurulent sputum -- bilateral wheezing -- nasal congestion and drainage no fever or chills. no chest pain MD elicited complaint: shortness of breath and cough Pertinent past history: COPD Onset (ago): day(s) ( 3 days) Context: other ( recent sinus infection) Timing: constant Severity: moderate Exacerbating factors: exertion Relieving factors: bronchodilators Known history of: COPD Associated symptoms: denies other symptoms, cough, wheezing and sputum production Treatment prior to arrival: bronchodilator Related Data Home oxygen amount: none Home Medications ?Medication ?Instructions ?Recorded ?Confirmed ?Last Taken ?Type amlodipine 5 mg tablet 5 mg PO DAILY 08/26/22 11/12/24 04/01/23 History aspirin 81 mg capsule 81 mg PO DAILY 08/26/22 11/12/24 04/01/23 History famotidine 20 mg tablet 20 mg PO DAILY 08/26/22 11/12/24 04/01/23 History Calcium 600 600 mg PO DAILY 05/08/23 11/12/24 Unknown History dupilumab 300 mg subcut [id number] 05/08/23 11/12/24 Unknown History formoterol fumarate 20 mcg inhalation DAILY 05/08/23 11/12/24 Unknown History Allergies Allergy/AdvReac Type Severity Reaction Status Date / Time amoxicillin (From Augmentin) Allergy Dyspnea / Verified 04/11/25 03:03 SOB clavulanic acid (From Allergy Dyspnea / Verified 04/11/25 03:03 Augmentin) SOB doxycycline Allergy Back Pain Verified 04/11/25 03:03 adhesive tape AdvReac Rash Verified 04/11/25 03:03 Review of Systems 2 Review of Systems: All systems reviewed & are unremarkable except as noted in HPI and below Constitutional: Constitutional: Reports as per HPI and Reports no additional constitutional complaints Eyes: Eyes: Reports as per HPI and Reports no additional eye complaints ENT: Reports system reviewed and no additional complaints, except as documented, Reports as per HPI and Reports nasal congestion Comments: nasal congestion /sinus fullness Cardiovascular: Cardiovascular: Reports as per HPI and Reports no additional cardiovascular complaints Respiratory: Respiratory: Reports as per HPI, Reports no additional respiratory complaints, Reports chest congestion, Reports cough, Reports dyspnea and Reports wheezing Gastrointestinal: Gastrointestinal: Reports as per HPI and Reports no additional gastrointestinal complaints Genitourinary: Genitourinary: Reports no additional female genitourinary complaints and Reports as per HPI Musculoskeletal: Musculoskeletal: Reports no additional musculoskeletal complaints and Reports as per HPI Integumentary/Breasts: Skin/Breast: Reports system reviewed and no additional complaints, except as docu and Reports as per HPI Neurologic: Reports system reviewed and no additional complaints, except as documented and Reports as per HPI Psychiatric: Psychiatric: Reports no additional psychiatric complaints and Reports as per HPI Endocrine: Endocrine: Reports no additional endocrine complaints and Reports as per HPI Hematologic/Lymphatic: Hematologic/Lymphatic: Reports no additional hematologic/lymphatic complaints and Reports as per HPI Allergic/Immunologic: Allergic/Immunologic: Reports no additional allergic/immunologic complaints and Reports as per HPI [facility] Past Medical History Medical History Closed fracture of metacarpal of left hand Hypoxia Acute exacerbation of emphysema Hypertension Emphysema of lung Surgical History Surgical History History of hysterectomy Hx of sinus surgery Family History Family History Unknown Asthma Hypertension Heart disease Diabetes mellitus Neuropathy Liver cancer Throat cancer Social History Social History Social History: HISTORY OF SMOKING IN THE PAST Smoking packs per day: 1 Smoking cigarettes per day: 20.0 Years smoked: 40 Smoking pack-years: 40.00 Smoking status: Former smoker Second hand tobacco smoke exposure: No Alcohol intake: current Drinks per week: 1 Substance use: current Substance use type: prescription drug Lack of Transportation: No Lack of Food: Never True Current Housing: I Have Housing Concerned About Future Housing: No Difficulty Paying Gas/Electric Bills: No Difficulty Paying for Meds: No Currently Unemployed: No Education: Bachelor's Degree Difficulty w/ Childcare or Family Care: No Occupation/Education: retired Gender identity (if verbalized by the patient): Female Spiritual care concerns: Yes (Tenriism) Exam 2 Narrative: afebrile. Oxygen saturation of 86-90% on room air Const: General: no acute distress Nutritional Appearance: well nourished Orientation/consciousness: patient oriented x3 Limitations: no limitations HENMT: Head: normal to inspection Ears: external ears normal F geri/Nose/Sinus: Normal external nose present Face and sinus: normal facial exam Mouth: Yes Normal oral and palatal mucosa present Throat: posterior oropharynx normal Eyes: Conjunctivae: conjunctivae normal Pupils: Equal, round and reactive pupils present EOM: EOMs intact bilaterally Direct Ophthalmoscopy: no photophobia Neck: Neck: normal visual inspection, no lymphadenopathy and no meningeal signs Chest: Chest palpation & inspection: normal inspection of the chest Resp: Effort & Inspection: tachypneic Auscultation: wheezes and diminished lung sounds Cardio: Rate: regular rate Rhythm: regular rhythm GI: GI Palp: Yes Soft to palpation Auscultation: normal bowel sounds O ther: no tenderness/rigidity /rebound : General: Yes no CVA tenderness Back/Spine/Pelvis: Back: no CVA tenderness Skin: General skin exam: normal color Rashes: no rashes Wounds: no wounds Neuro: General: patient oriented x3, moves all extremities, no meningeal signs, no focal motor deficits and CN's II-XI intact bilaterally Cranial nerves: Yes Nystagmus not present Speech: normal speech Gait exam (Neuro): Normal gait present Extrem: General: normal to inspection and no clubbing, cyanosis or edema Psych: Mental Status: mental status grossly normal Affect: normal affect Attitude: cooperative Course Course Emergency Course: acute sinusitis COPD exacerbation-- will treat with DuoNeb, Solu-Medrol and antibiotics chest x-ray and CTA of the chest did not show any lung infiltrates. No evidence of PE. Vital Signs Vital signs: Vital Signs Pulse Oximetry 86 L 04/11/25 02:49 Oxygen Delivery Room Air 04/11/25 02:49 Temperature 36.6 C 04/11/25 02:51 Pulse Rate 74 04/11/25 05:30 Respiratory Rate 18 04/11/25 05:30 Blood Pressure 129/83 04/11/25 05:30 Pulse Oximetry 90 04/11/25 05:30 Oxygen Delivery Room Air 04/11/25 02:51 MDM - SOB/Dyspnea MDM Narrative Medical decision making narrative: acute sinusitis COPD exacerbation Differential Diagnosis Differential diagnosis: Likely congestive heart failure and community acquired pneumonia Medical Records Attestation: I reviewed the patient's medical records. Lab Data Attestation: I reviewed the patient's lab results. 04/11/25 03:19 04/11/25 03:19 Labs: Lab Results 04/11/25 04/11/25 Range/Units 03:19 03:29 WBC 9.4 (4.8-10.8) K/mm3 RBC 4.97 (4.20-5.40) M/mm3 Hgb 14.6 H (11.7-13.8) g/dL Hct 44.5 H (35.0-42.0) % MCV 89.5 (78.0-102.0) fL MCH 29.4 (27.0-31.0) pg MCHC 32.8 (32-36) g/dL RDW 15.1 H (11.6-14.4) % Plt Count 249 (150-420) K/mm3 MPV 10.2 (9.2-11.8) fl Immature Gran % (Auto) Not Reportable Neut % (Auto) Not Reportable Lymph % (Auto) Not Reportable [place] % (Auto) Not Reportable Eos % (Auto) Not Reportable Baso % (Auto) Not Reportable Lymph # (Auto) Not Reportable [place] # (Auto) Not Reportable Eos # (Auto) Not Reportable Baso # (Auto) Not Reportable Abs Immat Gran (auto) Not Reportable Absolute Neuts (auto) Not Reportable Absolute Nucleated RBC Not Reportable Total Counted 10 Neutrophils % (Manual) 36 L (46-73) % Band Neutrophils % 0 (0-6) % Lymphocytes % (Manual) 40 (18-44) % Monocytes % (Manual) 8 (3-9) % Eosinophils % (Manual) 16 H (1-6) % Basophils % (Manual) 0 (0-1) % Nucleated RBC % Not Reportable Abs Neuts (Manual) 3.38 (1.7-7.2) K/mm3 Abs Lymphs (Manual) 3.76 (1.1-4.5) K/mm3 Abs Monocytes (Manual) 0.75 (0.1-0.90) K/mm3 Absolute Eos (Manual) 1.50 H (0.02-0.50) K/mm3 Abs Basophils (Manual) 0.00 (0-0.1) K/mm3 Platelet Estimate Adequate (Adequate) Schistocytes Not Reportable D-Dimer 0.80 H* (0.19-0.50) mg/L Sodium 139 (137-145) mmol/L Potassium 3.7 (3.4-5.0) mmol/L Chloride 110 H (98-107) mmol/L Carbon Dioxide 23 (22-30) mmol/L Anion Gap 6 (4-12) mmol/L BUN 17 (7-17) mg/dL Creatinine 0.79 (0.7-1.0) mg/dL Estim Creat Clear Calc 51 ml/min Estimated GFR > 60 (59 - ) Glucose 103 (65-110) mg/dL Calculated Osmolality 289 (285-295) mOsm/kg Lactic Acid 1.2 (0.4-2.0) mmol/L Calcium 8.6 (8.4-10.2) mg/dL Total Bilirubin 0.6 (0.2-1.3) mg/dL AST 32 (14-36) U/L ALT 18 (6-35) U/L Alkaline Phosphatase 79 (38-126) U/L Troponin I < 0.012 (0.000-0.034) ng/mL NT-Pro-B Natriuret Pep < 20 (19.9-100) pg/mL Total Protein 7.6 (6.3-8.2) g/dL Albumin 4.2 (3.5-5.1) g/dL Influenza A (RT-PCR) Negative (Negative) Influenza B (RT-PCR) Negative (Negative) RSV (RT-PCR) Negative (Negative) SARS-CoV-2 RNA (RT-PCR) Negative (Negative) Imaging Data Attestation: I personally reviewed and interpreted this imaging study as follows: My impression: no infiltrates or evidence of CHF. ECG Data EKG #1: ECG completion date: 04/11/25 ECG completion time: 03:14 Interpretation: Normal sinus rhythm. Left axis deviation. No ST elevation. Poor R-wave progression in anterior leads. Discharge Plan Discharge Clinical Impression: Acute exacerbation of chronic obstructive airways disease Patient Disposition: Home Condition: Stable Instructions: Antibiotic Form, COPD (Chronic Obstructive Pulmonary Disease) (ED) Patient Language: Azeri Prescriptions: New azithromycin [Zithromax] 250 mg tablet 250 mg PO DAILY 4 Days Qty: 4 0RF Rx Instructions: start on day 2 of therapy prednisone 20 mg tablet 20 mg PO BID Qty: 10 0RF No Action fluticasone propion-salmeterol [Advair Diskus] 250-50 mcg/dose blister with device 1 inh inhalation Q12H Qty: 60 2RF ipratropium-albuterol 0.5 mg-3 mg(2.5 mg base)/3 mL solution for nebulization 3 ml INHALATION QID Qty: 30 0RF albuterol sulfate [Ventolin HFA] 90 mcg/actuation HFA aerosol inhaler 2 puff inhalation QID Qty: 8.5 0RF Calcium 600 600 mg PO DAILY dupilumab 300 mg subcut [id number] formoterol fumarate 20 mcg inhalation DAILY amlodipine 5 mg tablet 5 mg PO DAILY famotidine 20 mg Tablet 20 mg PO DAILY aspirin 81 mg Capsule 81 mg PO DAILY Follow-up/Referrals: Carlos,Torito Holley MD [Primary Care Provider] -
[2025-04-11] MEDS: IPRATROPIUM 0.5 MG/ALBUTEROL SULFATE 2.5 MG AMPUL.NEB 3 ML INHALATION (03:14)
[2025-04-11] MEDS: methylPREDNISolone SOD SUCC 125 MG VIAL IM (03:16)
[2025-04-11 03:26] LABS: Hematocrit 44.5 % (35.0-42.0); Hemoglobin 14.6 g/dL (11.7-13.8); Mean Corpuscular HGB Conc 32.8 g/dL (32-36); Mean Corpuscular Hemoglobin 29.4 pg (27.0-31.0); Mean Corpuscular Volume 89.5 fL (78.0-102.0); Mean Platelet Volume 10.2 fl (9.2-11.8); Platelet Count Result 249 K/mm3 (150-420); Red Blood Count 4.97 M/mm3 (4.20-5.40); Red Cell Distribution Width 15.1 % (11.6-14.4); White Blood Count 9.4 K/mm3 (4.8-10.8)
--- OUTSIDE RECORDS SUMMARY | 2025-04-11 03:35 | XMS_ITS | Clinical Summary ---
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 Medical Office Building [address] [place] [address] Lydia Rojas MD S/P FESS (functional endoscopic sinus surgery) (Primary Dx); Chronic pansinusitis 01/15/2025 8:00 AM SOCKET PULLER Clinical Support [facility] [address] [facility] [address] [place] [address] Age-related osteoporosis without current pathological fracture (Primary [...] How often do you attend chur or adventist services? More than 4 times [...] on file Legal Sex Female 1:11 AM SOCKET PULLER Gender Identity Not on file Sexual Orientation [...] Comments Blood Pressure 134/85 01/15/2025 8:09 AM SOCKET PULLER Pulse 66 01/15/2025 8:09 AM SOCKET PULLER Temperature 36.3 C (97.3 F) 01/15/2025 8:09 AM SOCKET PULLER Respiratory Rate 18 01/15/2025 8:09 AM SOCKET PULLER Oxygen Saturation 100% 01/15/2025 8:09 AM SOCKET PULLER Inhaled Oxygen Concentration - - Weight 69.4 [...] Read Routine (OP Routine) 12/26/2024 7:47 AM SOCKET PULLER Visit for screening mammogram DEXA AXIAL SKELETON BONE DENSITY 1 OR MORE SITES Schedule Routine, Read Routine (OP Routine) 11/08/2022 12:23 PM SOCKET PULLER Osteopenia, unspecified location Asymptomatic menopausal state COLONOSCOPY 04/22/2022 7:32 AM CDT HEPATITIS C ANTIBODY Routine 02/05/2019 7:21 AM CDT from Last 3 Months or Most Recently Relevant to Health Maintenance Results * Screening Mammogram Bilateral W Hector (12/26/2024 7:47 AM SOCKET PULLER) Anatomical Region Laterality Modality Breast Bilateral Mammography 12/26/2024 8:36 AM SOCKET PULLER Impressions 12/26/2024 8:36 AM SOCKET PULLER No evidence of malignancy in either breast. FINAL ASSESSMENT: BI-RADS Category 2: Benign. RECOMMENDATION: Recommend return for annual screening mammogram in 12 months. Electronically signed by: Dane Purdy M.D. Narrative 12/26/2024 8:36 AM SOCKET PULLER EXAMINATION: BILATERAL SCREENING MAMMOGRAM COMPARISON: 12/08/2022, 11/08/2022, [...] 1 Or 2 Site (11/08/2022 12:23 PM SOCKET PULLER) Anatomical Region Laterality Modality Body N/A Other 11/08/2022 7:03 PM SOCKET PULLER Narrative 11/08/2022 7:05 PM SOCKET PULLER EXAM DESCRIPTION: DEXA AXIAL SKELETON BONE DENSITY 1 OR MORE SITES REASON FOR STUDY: 67 y/o year old F with given history of screening. 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 MF: ANTOINE Report ID: [id number] Reading Location: [place] [address] Procedure Note Josh Avalos MD - 11/08/2022 EXAM DESCRIPTION: DEXA AXIAL SKELETON BONE DENSITY 1 OR MORE SITES REASON FOR STUDY: 67 y/o year old F with given history ofscreening. 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 MF: ANTOINE Report ID: [id number] Reading Location: [id number] Alhaji Payan MD IMG DXA PROCEDURES Final R esult * COLONOSCOPY (04/22/2022 7:32 AM CDT) Anatomical Region Laterality Modality Other Narrative Procedure Note Jaciel Mott MD - 04/22/2022 7:32 AM CDT [facility] Patient Name: Gabbei Chris Procedure Date: 04/22/2022 7:32 AM Date of : 1955 Admit Type: Outpatient Age: 66 Gender: Female Attending MD: Jaciel Mott M.D. Room: [facility] ENDOSCOPY ROOM 2 Note Status: Finalized Patient [...] scope was passed under direct vision. TheColonoscope [id number] was introduced through the anus and advanced [...] history of colonic polyps CPT copyright 2020 [employer]. All rights reserved. The codes documented in this report are preliminary and upon fish bailer reviewmay be revised to meet current compliance requirements. Recognized by the [employer] for promoting quality in endoscopy us Jaciel Mott MD ENDOSCOPY PROCEDURES Final Re sult * Hepatitis C antibody (02/05/2019 7:21 AM CDT) Hep C Ab Negative Negative [facility] Comment:Testing performed by : [facility], [address] [place] [address], [place]., [address] Blood specimen (specimen) 02/05/2019 7:21 AM CDT 02/05/2019 11:10 AM CDT Narrative [facility] - 02/05/2019 11:58 AM CDT us Torito Gonzalez MD LAB MICROBIOLOGY - GENERAL ORDERABLES Final Result [facility] [address] [facility] [place] [address] from Last 3 Months or Most Recently Relevant to Health Maintenance Insurance [facility]ICARE [facility] [place] [address] MEDICARE [facility] Address: [address] [address] Advance Directives For more information, please contact: [phone] * Full Code (Latest Code Status on File) Date Activated Date Inactivated Comments 01/16/2023 12:06 AM 01/18/2023 6:06 PM * Full Code Date Activated Date Inactivated Comments 04/22/2022 7:36 AM 04/22/2022 2:11 PM * Full Code Date Activated Date Inactivated Comments 01/15/2019 10:37 AM 01/15/2019 4:19 PM * Full Code Date Activated Date Inactivated Comments 01/15/2019 10:37 AM 01/15/2019 10:37 AM Care Teams Overnight Houseperson Relationship Specialty Start Date End Date Torito Gonzalez MD [address] [place] [address] PCP - General 02/25/17 [place] [address] [facility] [address] [place] [address] Consulting Physician Pulmonary Disease 01/30/24
--- OUTSIDE RECORDS SUMMARY | 2025-04-11 03:35 | XMS_ITS | Encounter Summary ---
Author Organization [facility] Healthcare Address [address] [place] [address] Care Team Providers Care Department Clerk Name Role Phone Torito Gonzalez MD Primary Care Provider [phone] Sol Lincoln MD Unavailable [phone] Reason for Visit * Reason Onset Date Comments Scheduling Appointments 10/23/2021 no answe r to confirm mamm appointment Encounter Details Date Type Department Care Team ([facility] st Contact Info) Description 10/23/2021 Telephone [facility] [address] [place] [address] Maryanne Das RT Scheduling Appointments (no answer [...] on file Legal Sex Female 1:11 AM CHANGE LEAD Gender Identity Not on file Sexual Orientation Not on file documented as of this encounter Plan of Treatment Not on file documented as of this encounter Visit Diagnoses Not on filedocumented in this encounter Care Teams Department Clerk Relationship Specialty Start Date End Date Torito Gonzalez MD [address] [place] [address] PCP - General 02/25/17 [place] [address] [place] [address] Consulting Physician Pulmonary Disease 01/30/24 documented as of this encounter
--- OUTSIDE RECORDS SUMMARY | 2025-04-11 03:35 | XMS_ITS | Continuity of Care Document ---
Author Organization [facility] [place], operated by [facility] Address [address] [facility] [address] Giang [address] [place] [address] Phone Care Team Providers Care Tobacco Stripper Name Role Phone Luis M OD, Ayesha [...] Diagnoses Date Provider Providers Copied on Encounter [facility], [address] [place] [address] [address], [place], [place], [address], [place] tel:[phone] SEC [place] Professional Complete Exam (chief complaint) Presence of intraocular lensOther secondary cataract, bilateralVitre ous degeneration, bilateralOcula r hypertension, bilateral Nov- 3 Luis M OD Ayesha. [address] [place] [address] [address], [address], [place], [place], [address], [place]. tel:[phone] Referring Provider: Ayesha Asencio OD K, [address] [place] [address] [address], [place], [address] . tel:[phone] [facility], [id number] [place] [address] [address], [place], [place], [address], [place] tel:[phone] SEC [place] Professional Complete Exam (chief complaint) Presence of intraocular lensOther secondary cataract, bilateralVitre ous degeneration, bilateral Nov- 2 Wilber Malik. [address] [facility], [address], [place], [place], [address], [place]. tel:[phone] Referring Provider: King Rajan, [address] [facility] [address], [place], [address] . tel:[phone] [facility], [address], [place], [place], [address], [place] tel:[phone] [place] Professional Complete Exam (chief complaint) Presence of intraocular lensOther secondary cataract, bilateralPVD (posterior vitreous detachment), right eyeVitreous syneresis of both eyes 1 Wilber Malik. [address] [facility], [address], [place], [place], [address], [place]. tel:[phone] Referring Provider: King Rajan, [address] [facility] [address], [place], [address] . tel:[phone] Office/outpa tient Visit, [facility], [address], [place], [place], [address], [place] tel:[phone] SEC Arsenio QUINTERO Professional 1 month PVD f/u (chief complaint) PVD (posterior vitreous detachment), right eye 0 Avel OD Michael. [address] [facility], [address] [facility], [place], [address], [place]. tel:[phone] Referring Provider: King Rajan, [address], [place], [address] . tel:[phone] Office/outpa tient Visit, [facility], [address], [place], [place], [address], [place] tel:[phone] SEC Arsenio QUINTERO Professional Floater/co bweb in vision (chief complaint) PVD (posterior vitreous detachment), right eye 0 Avel OD Michael. [address] [facility], 6th Floor, [place], [address], [place]. tel:[phone] Referring Provider: King Rajan [address], [place], [address] . tel:[phone] [facility], [address], [place], [place], [address], [place] tel:[phone] SEC Arsenio QUINTERO Professional PCIOL Post OP (chief complaint) Encounter for examination following surgery 8 Myron OD Sarah. [address] [facility], [address], [place], [address], [place]. tel:[phone] Referring Provider: King Rajan, [address] [facility] [address], [place], [address] . tel:[phone] [facility], [address], [place], [place], [address], [place] tel:[phone] SEC [place] Professional Post-Op (chief complaint) Encounter for examination following surgery Jan- 8 Myron OD Sarah. [address] [facility], [facility] A, [place], [address], [place]. tel:[phone] Referring Provider: King Rajan, [address] [facility] [address], [place], [address] . tel:[phone] [facility], [address], [place], [place], [address], [place] tel:[phone] SEC [place] Professional Post-Op (chief complaint) Encounter for examination following surgery 8 Cardenas Lenora. [address] [facility], [place], [address], [place]. tel:[phone] Referring Provider: King Rajan, [address] [facility] [address], [place], [address] . tel:[phone] [facility], [address], [place], [place], [address], [place] tel:[phone] [facility] No Information 8 Wilber Malik. [address] [facility], [facility] [address], [place], [place], [address], [place]. tel:[phone] Referring Provider: King Rajan, [address] [facility] [address], [place], [address] . tel:[phone] [facility], [address], [place], [place], [address], [place] tel:[phone] [place] Professional Post-Op (chief complaint) Encounter for examination following surgery 8 Myron OD Sarah. [address] [facility], [address], [place], [address], . tel:[phone] Referring Provider: King Rajan, [address] [facility] [address], [place], [address] . tel:[phone] [facility], [address], [place], [place], [address], [place] tel:[phone] [place] Professional Post-Op (chief complaint) Encounter for examination following surgery 8 Myron OD Sarah. [address] [facility], [facility] A, [place], [address], [place]. tel:[phone] Referring Provider: King Rajan, [address] [facility] [address], [place], [address] . tel:[phone] [facility], [address], [place], [place], [address], [place] tel:[phone] [place] Professional Post-Op (chief complaint) Encounter for examination following surgery 8 Theresa Cooley. [address] [facility], [place], [address], [place]. tel:[phone] Referring Provider: King Rajan, [address] [facility] [address], [place], [address] . tel:[phone] [facility], [address], [place], [place], [address], [place] tel:[phone] [facility] No Information 8 Wilber Malik. [address] [facility], [address], [place], [place], [address], . tel:[phone] Referring Provider: King Rajan, [address] [facility] [address], [place], [address] . tel:[phone] [facility], [address], [place], [place], [address], [place] tel:[phone] SEC [place] Professional Testing only (chief complaint) Combined forms of age-related cataract, left eyeAge-related nuclear cataract, right eye Wilber Malik. [address] [facility], [place], [address], . tel:[phone] Referring Provider: King Rajan, [address] [facility] [address], [place], [address] . tel:[phone] [facility], [address], [place], [place], [address], [place] tel:[phone] [place] Professional Complete Exam (chief complaint) Age-related nuclear cataract, right eyeCombined forms of age-related cataract, left eye Wilber Malik. [address] [facility], [place], [address], . tel:[phone] Referring Provider: King Rajan, [address] [facility] [address], [place], [address] . tel:[phone] [facility], [address], [place], [place], [address], [place] tel:[phone] SEC [place] Professional No Information Wilber Malik. [address] [facility], [place], [address], [place]. tel:[phone] Family History Family Member Type Diagnosis Age At Onset Brother Problem (finding) Diabetes mellitus Problem (finding) Family history of Diabe sandi mellitus Payers Payer name Insurance type Covered green party ID Ade schwartz(s) [place] DON[place] [id number] [facility] Delio [id number] Social History Type Description Quantity Date Captured [...] scheduled, sooner if any problems Impression/Plan - 1 Week Post-Op s/p phaco [...] for examination following surgery Follow up - as scheduled Impression/Plan - PO D 1 s/p CE/PCIOL OSDoing well. IOP well controlled. Post op med instructions reviewed with pt, and post op instructions discussed. Discussed warning signs and symptoms and need for immediate exam should these occur. Pt understands shield use, return to clinic for post op exam as scheduled. Follow up - Schedule CE OS with Standard IOL for distance, followed by CE OD with Standard IOL for distance. Impression/Plan - Mo derate Cataracts OU- Cataracts [...]
--- OUTSIDE RECORDS SUMMARY | 2025-04-11 03:35 | XMS_ITS | Encounter Summary ---
Author Organization [facility] Address [address] [place] [address] Phone Care Team Providers Care Forklift Mechanic Name Role Phone Torito Gonzalez MD Primary Care Provider Guille Collier MD Unavailable Encounter Details Date Type Department Care Team (Late st Contact Info) Description 03/04/2025 Results Follow-Up [facility] - Internal Medicine - [place] [address] [place] [address] Torito Gonzalez MD [address] [place] [address] XR LUMBAR SPINE MINIMUM 4 VIEWS Social History Tobacco Use Types Packs/Day Years Used Date Smoking Tobacco: Former Cigarettes Q uit: 12/07/2009 Passive Smoke Exposure: Past Smokeless Tobacco: Never Alcohol Use Standard Drinks/Week Comments Not Currently 0 (1 standard drink = 0.6 oz pur e alcohol) [facility] Utilities Answer Date Recorded In the past 12 months has [employer], gas, oil, or water company threatened [...] often do you attend chur ch or muslim services? More than 4 times per year [...] Total Score - Questions 1-9 0 01/28 [facility] - [...] or slept in a fpc (including now)? Patient declined 11/16/2023 Housing Stability [...] any time in the past 12 m [facility], were you homeless or living in a fpc (including now)? No 02/25/2025 Education Answer Date Recorded What is the highest level of school you have completed or the highest degree you have received? Master's degree (e.g., MA, MS, Nathalia, MEd, NAVAL AIRCREWMAN OPERATOR, VANESSA) 02/10/2023 Sexually Active Control Partners [...] Gonzalez MD [address] [place] [address] documented as of this encounter Visit Diagnoses Not on filedocumented in this encounter Additional Health Concerns Assessment Noted Time PHQ-9 Depression Total Score: 0 02/26/20 25 8:15 AM CDT documented as of this encounter Care Teams Forklift Mechanic Relationship Specialty Start Date End Date Torito Gonzalez MD [address] [place] [address] PCP - General Internal Medicine 02/01/20 Guille Collier MD [address] [place] [address] Consulting Physician Pulmonary Disease 12/06/22 documented as of this encounter
--- OUTSIDE RECORDS SUMMARY | 2025-04-11 03:35 | XMS_ITS | Clinical Summary ---
Author Organization [facility] [place] Address [address] [place] [address] Phone Care Team Providers Care Tiger Machine Operator Name Role Phone Torito Gonzalez MD Primary Care Provider [phone] Guille Collier MD Unavailable Allergies Active Allergy [...] Description 03/11/2025 10:30 AM CDT Office Visit [facility] Internal Medicine [facility] [address] [place] [address] Torito Gonzalez MD Acute bilateral low back pain with right-sided sciatica (Primary Dx) Discharge Disposition: Discharged to home or Selfcare 03/11/2025 Travel 03/04/2025 Results Follow-Up [facility] Internal Medicine [facility] [place] [address] Torito Gonzalez MD XR LUMBAR SPINE MINIMUM 4 VIEWS 02/25/2025 9:15 AM CDT - 02/25/2025 11:59 PM CDT Hospital Encounter [facility] Diagnostic Radiology [address] [place] [address] Torito Gonzalez MD Discharge Disposition: Discharged to home or Selfcare 02/25/2025 9:14 AM CDT [facility] [address] [facility] [place] [address] Torito Gonzalez MD Discharge Disposition: Discharged to home or Selfcare 02/25/2025 8:30 AM CDT Office [facility] [place] [address] [place] [address] Torito Gonzalez MD Acute bilateral low back [...] Adjuvanted 08/17/2023 Pneumococcal conjugate PCV20 , polysaccharide DIM144 conjugate, adjuvant, PF 10/07/2022 Family History Medical [...] drink = 0.6 oz pur e alcohol) [facility] Utilities Answer Date Recorded In the past 12 months has [employer], gas, oil, or water [employer] threatened to shut off services in your [...] week 02/25/2025 How often do you attend [facility] or religion services? More than 4 times per year [...] Total Score - Questions 1-9 0 01/28 [facility] - Occupational [...] or slept in a fdc (including now)? Patient declined 11/16/2023 Housing Stability [...] were you homeless or living in a fdc (including now)? No 02/25/2025 Education Answer Date Recorded What is the highest level of school you have completed or the highest degree you have received? Master's degree (e.g., MA, MS, Nathalia, MEd, THREADER OPERATOR, VANESSA) 02/10/2023 Sexually Active [employer] [...] [facility] [place] [address] [place] [address] Torito Gonzalez MD [address] [place] [address] Health Maintenance Due Date Last Done Comments [...] CDT MAMMOGRAM BILATERAL GENERIC 10/26/2021 12:00 AM AIR CONDITIONING SERVICE TECHNICIAN from Last 3 Months or Most Recently [...] by Damien Lugo M.D. TH: Report ID: [id number] Reading Location: [id number] Procedure Note Damien Lugo MD - 03/01/2025 [...] Damien Lugo M.D. TH: TH Report ID: [id number] Reading Location: [id number] IMPRESSION: Normal right hip radiographs. Multilevel lumbar [...] Damien Lugo M.D. TH: TH Report ID: [id number] Reading Location: [id number] Procedure Note Damien Lugo MD - 03/01/2025 [...] Damien Lugo M.D. TH: TH Report ID: [id number] Reading Location: [id number] IMPRESSION: Normal right hip radiographs. Multilevel lumbar spine degenerative disc disease greatest and moderate at L4-L5, L5-S1 and T11-T12. us Torito Gonzalez MD IMG DIAGNOSTIC ORDERABLES F inal Result * HM COLONOSCOPY (04/22/2022 12:00 AM CDT) 04/22/2022 us Not On File Provider PROCEDURE/MINOR SURGICAL OR DERABLES Final Result SCAN * MAMMOGRAM BILATERAL MISCELLANEOUS (10/26/2021 12:00 AM AIR CONDITIONING SERVICE TECHNICIAN) 10/26/2021 us Not On File Provider IMG MAMMO ORDERABLES Final Result SCAN from Last 3 Months or Most Recently Relevant to Health Maintenance Insurance MED[place] [address] Care Teams Tiger Machine Operator Relationship Specialty Start Date End Date Torito Gonzalez MD [address] [place] [address] PCP - General Internal Medicine 02/01/20 Guille Collier MD [address] [place] [address] Consulting Physician Pulmonary Disease 12/06/22
--- OUTSIDE RECORDS SUMMARY | 2025-04-11 03:35 | XMS_ITS | Referral Summary ---
Author Organization [facility] Address [address] [place] [address] Care Team Providers Care Manager Pharmaceutical Name Role Phone Torito Gonzalez MD Primary Care Provider [phone] Sol Lincoln MD Unavailable [phone] Encounters Date Type Department Care Team Description 02/28/2025 9:00 AM CDT Office Visit [facility] ENT [address] [facility] [address] [place] [address] Lydia Rojas MD S/P FESS (functional endoscopic sinus surgery) (Primary Dx); Chronic pansinusitis 01/15/2025 8:00 AM BOWLING ALLEY ATTENDANT Clinical Support [facility] [address] [facility] [address] [place] [address] Age-related osteoporosis without current pathological fracture (Primary [...] (04/15/2022): Added automatically from request for surgery [id number] 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 More than 4 times per year 01/18/2023 Do you belong to any clubs o r organizations such as temple groups, unions, fraternal or athletic groups, or [...] or slept in a jail (including now)? No 01/18/2023 Personal Safety Answer Date Recorded Have you ever been in or are you currently in a harmful physical or emotional relationship or is someone making you feel afraid or unsafe? Denies 08/07/2024 Comments No Sex and Gender Information Value Date Recorded Sex Assigned at Not on file Legal Sex Female 1:11 AM BOWLING ALLEY ATTENDANT Gender Identity Not on file Sexual Orientation Not on file Last Filed Vital Signs Vital Sign Reading Time Taken Comments Blood Pressure 134/85 01/15/2025 8:09 AM BOWLING ALLEY ATTENDANT Pulse 66 01/15/2025 8:09 AM BOWLING ALLEY ATTENDANT Temperature 36.3 C (97.3 F) 01/15/2025 8:09 AM BOWLING ALLEY ATTENDANT Respiratory Rate 18 01/15/2025 8:09 AM BOWLING ALLEY ATTENDANT Oxygen Saturation 100% 01/15/2025 8:09 AM BOWLING ALLEY ATTENDANT Inhaled Oxygen Concentration - - Weight 69.4 kg (153 lb) 02/28/2025 8:47 AM CDT Height 165.1 cm (5' 5 ) 02/28/2025 8:47 AM CDT Body Mass Index 25.46 02/28/2025 8:47 AM CDT Plan of Treatment Not on file Procedures Procedure Name Priority Date/Time Associated Diagnosis Comments SCREENING MAMMOGRAM BILATERAL W HECTOR Schedule Routine, Read Routine (OP Routine) 12/26/2024 7:47 AM BOWLING ALLEY ATTENDANT Visit for screening mammogram DEXA AXIAL SKELETON BONE DENSITY 1 OR MORE SITES Schedule Routine, Read Routine (OP Routine) 11/08/2022 12:23 PM BOWLING ALLEY ATTENDANT Osteopenia, unspecified location Asymptomatic menopausal state COLONOSCOPY 04/22/2022 7:32 AM CDT HEPATITIS C ANTIBODY Routine 02/05/2019 7:21 AM CDT from Last 3 Months or Most Recently Relevant to Health Maintenance Results * Screening Mammogram Bilateral W Hector (12/26/2024 7:47 AM BOWLING ALLEY ATTENDANT) Anatomical Region Laterality Modality Breast Bilateral Mammography 12/26/2024 8:36 AM BOWLING ALLEY ATTENDANT Impressions 12/26/2024 8:36 AM BOWLING ALLEY ATTENDANT No evidence of malignancy in either breast. FINAL ASSESSMENT: BI-RADS Category 2: Benign. RECOMMENDATION: Recommend return for annual screening mammogram in 12 months. Electronically signed by: Dane Purdy M.D. Narrative 12/26/2024 8:36 AM BOWLING ALLEY ATTENDANT EXAMINATION: BILATERAL SCREENING MAMMOGRAM COMPARISON: 12/08/2022, 11/08/2022, [...] 1 Or 2 Site (11/08/2022 12:23 PM BOWLING ALLEY ATTENDANT) Anatomical Region Laterality Modality Body N/A Other 11/08/2022 7:03 PM BOWLING ALLEY ATTENDANT Narrative 11/08/2022 7:05 PM BOWLING ALLEY ATTENDANT EXAM DESCRIPTION: DEXA AXIAL SKELETON BONE DENSITY 1 OR MORE SITES REASON FOR STUDY: 67 y/o year old F with given history of screening. 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 MF: ANTOINE Report ID: [id number] Reading Location: [id number] Procedure Note Josh Avalos MD - 11/08/2022 EXAM DESCRIPTION: DEXA AXIAL SKELETON BONE DENSITY 1 OR MORE SITES REASON FOR STUDY: 67 y/o year old F with given history ofscreening. 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 MF: ANTOINE Report ID: [id number] Reading Location: [id number] us Alhaji Payan MD IMG DXA PROCEDURES Final R esult * COLONOSCOPY (04/22/2022 7:32 AM CDT) Anatomical Region Laterality Modality Other Narrative Procedure Note Jaciel Mott MD - 04/22/2022 7:32 AM CDT [facility] Patient Name: Gabbie Chris Procedure Date: 04/22/2022 7:32 AM Date of : 1955 Admit Type: Outpatient Age: 66 Gender: Female Attending MD: Jaciel Mott M.D. Room: [facility] ENDOSCOPY ROOM 2 Note Status: [...] scope was passed under direct vision. TheColonoscope [id number] was introduced through the anus and advanced [...] history of colonic polyps CPT copyright 2020 [employer]. All rights reserved. The codes documented in this report are preliminary and upon operations vocational instructor reviewmay be revised to meet current compliance requirements. Recognized by the [employer] for promoting quality in endoscopy us Jaciel Mott MD ENDOSCOPY PROCEDURES Final Re sult * Hepatitis C antibody (02/05/2019 7:21 AM CDT) Hep C Ab Negative Negative [facility] ([place]) Comment:Testing performed by : [facility], [address] [place] [address], [place]., [address] Blood specimen (specimen) 02/05/2019 7:21 AM CDT 02/05/2019 11:10 AM CDT Narrative [facility] ([place]) - 02/05/2019 11:58 AM CDT us Torito Gonzalez MD LAB MICROBIOLOGY - GENERAL ORDERABLES Final Result [facility] ([place]) [address] [facility] [place] [id number] from Last 3 Months or Most Recently Relevant to Health Maintenance Insurance MEDICARE [facility] MEDICARE [facility] MEDIC[facility] Advance Directives For more information, please contact: [phone] * Full Code (Latest Code Status on File) Date Activated Date Inactivated Comments 01/16/2023 12:06 AM 01/18/2023 6:06 PM * Full Code Date Activated Date Inactivated Comments 04/22/2022 7:36 AM 04/22/2022 2:11 PM * Full Code Date Activated Date Inactivated Comments 01/15/2019 10:37 AM 01/15/2019 4:19 PM * Full Code Date Activated Date Inactivated Comments 01/15/2019 10:37 AM 01/15/2019 10:37 AM Care Teams Manager Pharmaceutical Relationship Specialty Start Date End Date Torito Gonzalez MD [address] [place] [address] PCP - General 02/25/17 [place] [address] [address] Consulting Physician Pulmonary Disease 01/30/24
[2025-04-11 03:42] LABS: Alanine Aminotransferase 18 U/L (6-35); Albumin Level 4.2 g/dL (3.5-5.1); Alkaline Phosphatase 79 U/L (38-126); Anion Gap 6 mmol/L (4-12); Aspartate Amino Transferase 32 U/L (14-36); Bilirubin,Total 0.6 mg/dL (0.2-1.3); Blood Urea Nitrogen 17 mg/dL (7-17); Calcium 8.6 mg/dL (8.4-10.2); Carbon Dioxide 23 mmol/L (22-30); Chloride 110 mmol/L (98-107); Estimated CRCL calculation 51 ml/min; Estimated Glomerular Filt Rate > 60; Glucose 103 mg/dL (65-110); Lactic Acid Reflex 1.2 mmol/L (0.4-2.0); Osmolality Calculated 289 mOsm/kg (285-295); Potassium 3.7 mmol/L (3.4-5.0); Sodium 139 mmol/L (137-145); Total Protein 7.6 g/dL (6.3-8.2)
[2025-04-11] MEDS: AZITHROMYCIN 250 MG TABLET 500 MG PO (03:42)
[2025-04-11 03:49] LABS: Band Neutrophils Percent 0 % (0-6); Basophils Percent Manual 0 % (0-1); Eosinophils Percent Manual 16 % (1-6); Lymphocytes Absolute Manual 3.76 K/mm3 (1.1-4.5); Lymphocytes Percent Manual 40 % (18-44); Monocytes Absolute Manual 0.75 K/mm3 (0.1-0.90); Monocytes Percent Manual 8 % (3-9); Neutrophils Absolute Manual 3.38 K/mm3 (1.7-7.2); Neutrophils Percent Manual 36 % (46-73); Platelet Estimate Adequate (Adequate); Total Cells Counted 10
[2025-04-11 03:54] LABS: NT Pro B Type Natriuretic Pept < 20 pg/mL (19.9-100); Troponin I < 0.012 ng/mL (0.000-0.034)
[2025-04-11 04:10] LABS: Influenza A QL RT-PCR Negative (Negative); Influenza B QL RT-PCR Negative (Negative); RSV RNA, RT-PCR Negative (Negative); SARS-CoV-2 RNA PCR Negative (Negative)
[2025-04-11] MEDS: LACTATED RINGERS 1,000 ML 999 ML IV CONT (04:13)
== END 2025-04-11 04:56 | disposition home or self-care (01) ==
PROVIDERS: Emergency Provider Internal Medicine Critical Care Medicine; PCP Internal Medicine
DX: J44.1 Chronic obstructive pulmonary disease with (acute) exacerbation (principal); I10 Essential (primary) hypertension; Z87.891 Personal history of nicotine dependence; Z23 Encounter for immunization
CPT/HCPCS: 36415; 71045; 71275; 80053; 83605; 83880; 84484; 85025; 85380; 87637; 90471; 93005; 96360; 99284; A9270; J2919; J7120; Q9967

== ENCOUNTER 2025-04-18 17:51 | Emergency (ER) | payer MEDICARE, OTHER, SELFPAY ==
[2025-04-18] VITALS (8 sets, daily range): BP systolic 105–153; BP diastolic 51–77; PULSE 70–91; RESP 16–18; TEMP 36.9; O2SAT 88–92
--- NOTE | ~2025-04-18 | CT_ITS ---
EXAMINATION: CTA chest PE protocol DATE: 04/18/2025 21:26 CDT INDICATION: Shortness of breath TECHNIQUE: Computed tomographic angiography (CTA) of the chest was performed with 100 mL Omnipaque-35 0 intravenous contrast. The dose-length product was 566.68 mGy-cm. Maximum intensity projection 3D-re constructions of the aorta and other arteries were constructed by the technologist on a separate work station. COMPARISON: 04/11/2025 FINDINGS/OBSERVATIONS: PULMONARY ARTERIES: No filling defect is identified within the main or proximal pulmonary artery. The main pulmonary artery is not enlarged. THORACIC AORTA: No aneurysmal dilatation or dissection is present. The great vessels are intact LUNGS: The lungs are clear. MEDIASTINUM: No morphologically suspicious or pathologically enlarged lymph nodes are identified with in the mediastinum or bilateral axilla. Moderate hiatal hernia, with thickening of the distal esophagus. BONES OF THE CHEST: No acute fracture. No significant degenerative disease. No lytic or blastic lesions. HEART: The heart is of normal size, without pericardial effusion. IMPRESSION: No pulmonary embolus. No thoracic aortic dissection. The lungs are clear. Moderate hiatal hernia with thickening of the distal esophagus and proximal stomach. Reviewed, dictated and finalized at location A. IMPRESSION: No pulmonary embolus. No thoracic aortic dissection. The lungs are clear. Moderate hiatal hernia with thickening of the distal esophagus and proximal sto mach.
--- NOTE | ~2025-04-18 | XR_ITS ---
CHEST RADIOGRAPH CLINICAL HISTORY: dyspnea, hx copd . COMPARISON: 04/11/2025 TECHNIQUE: Single portable view of the chest. FINDINGS The cardiomediastinal silhouette is unremarkable. Interstitial thickening is identified in a bibasilar distribution. IMPRESSION: Bibasilar interstitial thickening, without focal infiltrate or effusion. Reviewed, dictated and finalized at location A.
--- OUTSIDE RECORDS SUMMARY | 2025-04-18 17:54 | XMS_ITS | Referral Summary ---
Author Organization [facility] Address [address] [place] [address] Care Team Providers Care Redrawer Name Role Phone Torito Gonzalez MD Primary Care Provider [phone] Sol Lincoln MD Unavailable [phone] Encounters Date Type Department Care Team Description 02/28/2025 9:00 AM CDT Office Visit [facility] [id number] [place] [address] Medical Office [address] [place] [phone] Lydia Rojas MD S/P FESS (functional endoscopic sinus surgery) (Primary Dx); Chronic pansinusitis from Last 3 Months Allergies Active Allergy [...] cavity 04/16/2024 Obstructive sleep apnea (adult) (pediatric) 020 12/2023 NSTEMI (non-ST elevated myocardial infarction) 0 01/15/2023 Age-related osteoporosis wit hout current pathological fracture 12/22/2022 Hx of colonic polyps 04/15/2022 Overview (04/15/2022): Added automatically from request for surgery [id number] Prinzmetal's angina 04/17/2021 Assessment & Plan (08/23/2023 [...] (12/18/2018): Added automatically from request for surgery [id number] Keratosis, senilis 01/10/2017 Benign neoplasm of soft [...] How often do you attend chur or holiness services? More than 4 times per year 01/18/2023 Do you belong to any clubs o r organizations such as evangelical groups, unions, fraternal or athletic groups, or [...] place to sleep or slept in a retirement (including now)? No 01/18/2023 Personal Safety Answer Date Recorded Have you ever been in or are you currently in a harmful physical or emotional relationship or is someone making you feel afraid or unsafe? Denies 08/07/2024 Comments No Sex and Gender Information Value Date Recorded Sex Assigned at Not on file Legal Sex Female 1:11 AM GRAIN THRESHER Gender Identity Not on file Sexual Orientation Not on file Last Filed Vital Signs Vital Sign Reading Time Taken Comments Blood Pressure 134/85 01/15/2025 8:09 AM GRAIN THRESHER Pulse 66 01/15/2025 8:09 AM GRAIN THRESHER Temperature 36.3 C (97.3 F) 01/15/2025 8:09 AM GRAIN THRESHER Respiratory Rate 18 01/15/2025 8:09 AM GRAIN THRESHER Oxygen Saturation 100% 01/15/2025 8:09 AM GRAIN THRESHER Inhaled Oxygen Concentration - - Weight 69.4 kg (153 lb) 02/28/2025 8:47 AM CDT Height 165.1 cm (5' 5 ) 02/28/2025 8:47 AM CDT Body Mass Index 25.46 02/28/2025 8:47 AM CDT Plan of Treatment Not on file Procedures Procedure Name Priority Date/Time Associated Diagnosis Comments SCREENING MAMMOGRAM BILATERAL W HECTOR Schedule Routine, Read Routine (OP Routine) 12/26/2024 7:47 AM GRAIN THRESHER Visit for screening mammogram DEXA AXIAL SKELETON BONE DENSITY 1 OR MORE SITES Schedule Routine, Read Routine (OP Routine) 11/08/2022 12:23 PM GRAIN THRESHER Osteopenia, unspecified location Asymptomatic menopausal state COLONOSCOPY 04/22/2022 7:32 AM CDT HEPATITIS C ANTIBODY Routine 02/05/2019 7:21 AM CDT from Last 3 Months or Most Recently Relevant to Health Maintenance Results * Screening Mammogram Bilateral W Hector (12/26/2024 7:47 AM GRAIN THRESHER) Anatomical Region Laterality Modality Breast Bilateral Mammography 12/26/2024 8:36 AM GRAIN THRESHER Impressions 12/26/2024 8:36 AM GRAIN THRESHER No evidence of malignancy in either breast. FINAL ASSESSMENT: BI-RADS Category 2: Benign. RECOMMENDATION: Recommend return for annual screening mammogram in 12 months. Electronically signed by: Dane Purdy M.D. Narrative 12/26/2024 8:36 AM GRAIN THRESHER EXAMINATION: BILATERAL SCREENING MAMMOGRAM COMPARISON: 12/08/2022, 11/08/2022, [...] 1 Or 2 Site (11/08/2022 12:23 PM GRAIN THRESHER) Anatomical Region Laterality Modality Body N/A Other 11/08/2022 7:03 PM GRAIN THRESHER Narrative 11/08/2022 7:05 PM GRAIN THRESHER EXAM DESCRIPTION: DEXA AXIAL SKELETON BONE DENSITY 1 OR MORE SITES REASON FOR STUDY: 67 y/o year old F with given history of screening. Postmenopausal Toll Service Observer/Model: Quikey (S/N [id number]) CLINICAL INFORMATION: Current height: 65 inches Maximum [...] Josh Avalos M.D. MF: ANTOINE Report ID: [id number] Reading Location: [place] [address] Procedure Note Josh Avalos MD - 11/08/2022 EXAM DESCRIPTION: DEXA AXIAL SKELETON BONE DENSITY 1 OR MORE SITES REASON FOR STUDY: 67 y/o year old F with given history ofscreening. Postmenopausal Toll Service Observer/Model: Myfacepage Discovery SL (S/N [id number]) CLINICAL INFORMATION: Current height: 65 inches Maximum [...] Josh Avalos M.D. MF: ANTOINE Report ID: [id number] Reading Location: [id number] us Alhaji Payan MD IMG DXA PROCEDURES [...] scope was passed under direct vision. TheColonoscope [id number] was introduced through the anus and advanced [...] history of colonic polyps CPT copyright 2020 [employer]. All rights reserved. The codes documented in this report are preliminary and upon home demonstration agent reviewmay be revised to meet current compliance requirements. Recognized by the [employer] for promoting quality in endoscopy us Jaciel Mott MD ENDOSCOPY PROCEDURES Final Re sult * Hepatitis C antibody (02/05/2019 7:21 AM CDT) Hep C Ab Negative Negative ESPERANZA LAW (TRICIA) Comment:Testing performed by : [facility], [address] [place] [address]., [id number] Blood specimen (specimen) 02/05/2019 7:21 AM CDT 02/05/2019 11:10 AM CDT Narrative ESPERANZA LAW (TRICIA) - 02/05/2019 11:58 AM CDT us Torito Gonzalez MD LAB MICROBIOLOGY - GENERAL ORDERABLES Final Result ESPERANZA ANI (TRICIA) 1 [facility] Department [place] [address] from Last 3 Months or Most Recently Relevant to Health Maintenance Insurance MEDICARE [facility] [place] [facility] [place] MEDICARE [facility] Address: [facility] [address] [place] [address] Advance Directives For more information, please contact: [phone] * Full Code (Latest Code Status on File) Date Activated Date Inactivated Comments 01/16/2023 12:06 AM 01/18/2023 6:06 PM * Full Code Date Activated Date Inactivated Comments 04/22/2022 7:36 AM 04/22/2022 2:11 PM * Full Code Date Activated Date Inactivated Comments 01/15/2019 10:37 AM 01/15/2019 4:19 PM * Full Code Date Activated Date Inactivated Comments 01/15/2019 10:37 AM 01/15/2019 10:37 AM Care Teams Redrawer Relationship Specialty Start Date End Date Torito Gonzalez MD [address] [place] [address] PCP - General 02/25/17 [place] [id number] [address] Consulting Physician Pulmonary Disease 01/30/24
--- OUTSIDE RECORDS SUMMARY | 2025-04-18 17:54 | XMS_ITS | Clinical Summary ---
Author Organization [facility] Address [address] [place] [address] Phone Care Team Providers Care Gate Agent Name Role Phone Torito Gonzalez MD Primary Care Provider [phone] Guille Collier MD Unavailable Allergies Active Allergy [...] Description 03/11/2025 10:30 AM CDT Office Visit [facility] Internal Medicine [facility] [address] [place] [address] Torito Gonzalez MD Acute bilateral low back pain with right-sided sciatica (Primary Dx) Discharge Disposition: Discharged to home or Selfcare 03/11/2025 Travel 03/04/2025 Results Follow-Up [facility] Internal Medicine [facility] [address] [place] [address] Torito Gonzalez MD XR LUMBAR SPINE MINIMUM 4 VIEWS 02/25/2025 9:15 AM CDT - 02/25/2025 11:59 PM CDT Hospital Encounter [facility] Diagnostic Radiology [address] [place] [address] Torito Gonzalez MD Discharge Disposition: Discharged to home or Selfcare 02/25/2025 9:14 AM CDT [facility] 1 [facility] [address] Torito Gonzalez MD Discharge Disposition: Discharged to home or Selfcare 02/25/2025 8:30 AM CDT [facility] Visit [facility] [place] [address] [place] [address] Torito Gonzalez MD Acute bilateral low back [...] Adjuvanted 08/17/2023 Pneumococcal conjugate PCV20 , polysaccharide SAF213 conjugate, adjuvant, PF 10/07/2022 Family History Medical [...] 0.6 oz pur e alcohol) [facility] Utilities Answer Date Recorded In the past 12 months has [employer], gas, oil, or water [employer] threatened to shut off services in your [...] week 02/25/2025 How often do you attend [facility] or tenriism services? More than 4 times per year 02/25/2025 Do you belong to any clubs o r organizations such as hoahaoism groups, unions, fraternal or athletic groups, or [...] Total Score - Questions 1-9 0 01/28 [facility] - Occupational [...] or slept in a correction (including now)? Patient declined 11/16/2023 Housing Stability [...] were you homeless or living in a correction (including now)? No 02/25/2025 Education Answer Date Recorded What is the highest level of school you have completed or the highest degree you have received? Master's degree (e.g., MA, MS, Nathalia, MEd, HYDRO PNEUMATIC TESTER, VANESSA) 02/10/2023 Sexually Active Control Partners Comments [...] [facility] [place] [address] [place] [id number] Torito Gonzalez MD [address] [place] [address] Health Maintenance Due Date Last Done Comments [...] on patient's age to complete this topic Human Papillomavirus (HPV) Immunization Aged Out No longer eligible based on patient's age to complete this topic Meningococcal Immunization (ACWY) Aged Out No longer eligible based on patient's age to complete this topic Rotavirus Immunization Aged Out No lo nger eligible based on patient's age to complete this topic Zoster Immunization Discontinued Procedures Procedure Name Priority Date/Time Associated Diagnosis Comments COMPLETE BLOOD COUNT (CBC) WITH DIFF 04/11/2025 12:00 AM CDT D-DIMER 04/11/2025 12:00 AM CDT LACTIC ACID (LACTATE) 04/11/2025 12:00 AM CDT B-TYPE NATRIURETIC PEPTIDE (BNP) 04/11/2025 12:00 AM CDT TROPONIN I (TRP I) 04/11/2025 12 :00 AM CDT CMP (COMPREHENSIVE METABOLIC PANEL) 04/11/2025 12:00 AM CDT XR - CHEST 04/11/2025 12:[address] - CHEST 04/11/2025 12:00 AM CDT RESPIRATORY SYNCYTIAL VIRUS BY MOLECULAR 04/11/2025 12:00 AM CDT INFLUENZA TEST 04/11/2025 12:00 AM CDT SARS-COV-2 BY MOLECULAR 04/11/2025 12:00 AM CDT PULMONOLOGY CONSULT 03/01/2025 1 2:00 AM CDT XR LUMBAR SPINE MINIMUM 4 VIEWS Routine 02/25/2025 9:32 AM CDT Acute bilateral low back pain with right-sided sciatica XR HIP 2 VIEWS UNILATERAL RIGHT Routine 02/25/2025 9:31 AM CDT Acute pain of right hip HM COLONOSCOPY 04/22/2022 12:00 AM CDT MAMMOGRAM BILATERAL GENERIC 10/26/2021 12:00 AM FISH CUTTER from Last 3 Months or Most Recently Relevant to Health Maintenance Results * RESPIRATORY SYNCYTIAL VIRUS BY MOLECULAR (04/11/2025 12:00 AM CDT) 04/11/2025 us Provider Scan MICROBIOLOGY - GENERAL ORDERABLE S Final Result SCAN * INFLUENZA TEST (04/11/2025 12:00 AM CDT) 04/11/2025 us Provider Scan MICROBIOLOGY - GENERAL ORDERABLE S Final Result SCAN * XR - CHEST (04/11/2025 12:00 AM CDT) 04/11/2025 us Provider Scan IMG DIAGNOSTIC ORDERABLES Final Result Performing Organization Address [facility] de Phone Number SCAN * CT - CHEST (04/11/2025 12:00 AM CDT) 04/11/2025 us Provider Scan IMG CT ORDERABLES Final Result Performing Organization Address [facility] de Phone Number SCAN * SARS-COV-2 BY MOLECULAR (04/11/2025 12:00 AM CDT) 04/11/2025 us Provider Scan MICROBIOLOGY - GENERAL ORDERABLE S Final Result Performing Organization Address [facility] de Phone Number SCAN * TROPONIN I (TRP I) (04/11/2025 12:00 AM CDT) 04/11/2025 us Provider Scan CHEMISTRY ORDERABLES Final Resul t Performing Organization Address [facility] de Phone Number SCAN * LACTIC ACID (LACTATE) (04/11/2025 12:00 AM CDT) 04/11/2025 us Provider Scan CHEMISTRY ORDERABLES Final Resul t Performing Organization Address [facility] de Phone Number SCAN * D-DIMER (04/11/2025 12:00 AM CDT) 04/11/2025 us Provider Scan HEMATOLOGY ORDERABLES Final Resu lt Performing Organization Address [facility] de Phone Number SCAN * CMP (COMPREHENSIVE METABOLIC PANEL) (04/11/2025 12:00 AM CDT) 04/11/2025 us Provider Scan CHEMISTRY ORDERABLES Final Resul t Performing Organization Address [facility] de Phone Number SCAN * COMPLETE BLOOD COUNT (CBC) WITH DIFF (04/11/2025 12:00 AM CDT) 04/11/2025 us Provider Scan HEMATOLOGY ORDERABLES Final Resu lt Performing Organization Address [facility] de Phone Number SCAN * B-TYPE NATRIURETIC PEPTIDE (BNP) (04/11/2025 12:00 AM CDT) 04/11/2025 us Provider Scan CHEMISTRY ORDERABLES Final Resul t Performing Organization Address [facility] de Phone Number SCAN * PULMONOLOGY CONSULT (03/01/2025 12:00 AM CDT) 03/01/2025 us Provider Scan GENERIC SCAN ORDERS CONSULT Estefania l Result Performing Organization Address [facility] de Phone Number SCAN * XR LUMBAR SPINE MINIMUM 4 [...] Damien Lugo M.D. TH: TH Report ID: [id number] Reading Location: [id number] Procedure Note Damien Lugo MD - 03/01/2025 [...] by Damien Lugo M.D. TH: Report ID: [id number] Reading Location: [id number] IMPRESSION: Normal right hip radiographs. Multilevel lumbar spine degenerative disc disease greatest and moderate at L4-L5, L5-S1 and T11-T12. Torito Gonzalez MD IMG DIAGNOSTIC ORDERABLES F inal Result * XR [...] Damien Lugo M.D. TH: TH Report ID: [id number] Reading Location: [id number] Procedure Note Damien Lugo MD - 03/01/2025 [...] Damien Lugo M.D. TH: TH Report ID: [id number] Reading Location: [id number] IMPRESSION: Normal right hip radiographs. Multilevel lumbar spine degenerative disc disease greatest and moderate at L4-L5, L5-S1 and T11-T12. us Torito Gonzalez MD IMG DIAGNOSTIC ORDERABLES F inal Result * HM COLONOSCOPY (04/22/2022 12:00 AM CDT) 04/22/2022 us Not On File Provider PROCEDURE/MINOR SURGICAL OR DERABLES Final Result SCAN * MAMMOGRAM BILATERAL MISCELLANEOUS (10/26/2021 12:00 AM FISH CUTTER) 10/26/2021 us Not On File Provider IMG MAMMO ORDERABLES Final Result SCAN from Last 3 Months or Most Recently Relevant to Health Maintenance Insurance MEDICARE [employer] Care Teams Gate Agent Relationship Specialty Start Date End Date Torito Gonzalez MD [address] [place] [address] PCP - General Internal Medicine 02/01/20 Guille Collier MD [address] [place] [id number] Consulting Physician Pulmonary Disease 12/06/22
--- OUTSIDE RECORDS SUMMARY | 2025-04-18 17:54 | XMS_ITS | Encounter Summary ---
Author Organization [facility] Healthcare Address [address] [place] [address] Care Team Providers Care Aerial Hurricane Hunter Name Role Phone Torito Gonzalez MD Primary Care Provider [phone] Sol Lincoln MD Unavailable [phone] Reason for Visit * Reason Onset Date Comments Scheduling Appointments 10/23/2021 no answe r to confirm mamm appointment Encounter Details Date Type Department Care Team ([facility] st Contact Info) Description 10/23/2021 Telephone [facility] [address] [place] [address] Maryanne Das RT Scheduling Appointments (no answer [...] on file Legal Sex Female 1:11 AM CAR DESIGNER Gender Identity Not on file Sexual Orientation Not on file documented as of this encounter Plan of Treatment Not on file documented as of this encounter Visit Diagnoses Not on filedocumented in this encounter Care Teams Aerial Hurricane Hunter Relationship Specialty Start Date End Date Torito Gonzalez MD [address] [place] [address] PCP - General 02/25/17 [place] [address] [place] [address] Consulting Physician Pulmonary Disease 01/30/24 documented as of this encounter
--- OUTSIDE RECORDS SUMMARY | 2025-04-18 17:54 | XMS_ITS | Encounter Summary ---
Author Organization [facility] Address [address] [place] [address] Phone Care Team Providers Care Ase Master Mechanic Name Role Phone Torito Gonzalez MD Primary Care Provider Guille Collier MD Unavailable Encounter Details Date Type Department Care Team (Late st Contact Info) Description 03/04/2025 Results Follow-Up [facility] - [facility] - [place] [address] [place] [address] Torito Gonzalez MD [address] [place] [address] XR LUMBAR SPINE MINIMUM 4 VIEWS Social History Tobacco Use Types Packs/Day Years Used Date Smoking Tobacco: Former Cigarettes Q uit: 12/07/2009 Passive Smoke Exposure: Past Smokeless Tobacco: Never Alcohol Use Standard Drinks/Week Comments Not Currently 0 (1 standard drink = 0.6 oz pur e alcohol) [facility] Utilities Answer Date Recorded In the past 12 months has [id number], gas, oil, or water company threatened [...] often do you attend chur ch or protestant services? More than 4 times per year [...] Total Score - Questions 1-9 0 01/28 [facility] - Occupational [...] or slept in a mcc (including now)? Patient declined 11/16/2023 Housing Stability [...] any time in the past 12 m [facility], were you homeless or living in a mcc (including now)? No 02/25/2025 Education Answer Date Recorded What is the highest level of school you have completed or the highest degree you have received? Master's degree (e.g., MA, MS, Nathalia, MEd, CONSUMER LOAN PROCESSOR, VANESSA) 02/10/2023 Sexually Active Control Partners Comments [...] - [place] [address] [place] [id number] Torito Gonzalez MD [address] [place] [address] documented as of this encounter Visit Diagnoses Not on filedocumented in this encounter Additional Health Concerns Infection Onset Date Last Indicated Resolved Time Respiratory Rule-Out 04/11/2025 04/11/2025 025 7:19 AM CDT Assessment Noted Time PHQ-9 Depression Total Score: 0 02/26/20 25 8:15 AM CDT documented as of this encounter Care Teams Ase Master Mechanic Relationship Specialty Start Date End Date Torito Gonzalez MD [address] [place] [address] PCP - General Internal Medicine 02/01/20 Guille Collier MD [address] [place] [address] Consulting Physician Pulmonary Disease 12/06/22 documented as of this encounter
--- OUTSIDE RECORDS SUMMARY | 2025-04-18 17:54 | XMS_ITS | Continuity of Care Document ---
Author Organization [facility] [place] [facility] Address [address] [facility] [address] Giang [address] [place] [address] Phone Care Team Providers Care Marine Mammal Trainer Name Role Phone Luis M OD, Ayesha [...] Diagnoses Date Provider Providers Copied on Encounter [facility], [address] [place] [address] [address], [place], [place], [address], [place] tel:[phone] SEC [place] Professional Complete Exam (chief complaint) Presence of intraocular lensOther secondary cataract, bilateralVitre ous degeneration, bilateralOcula r hypertension, bilateral Nov- 3 Luis M OD Ayesha. [address] [place] [address] [address], [address], [place], [place], [address], [place]. tel:[phone] Referring Provider: Ayesha Asencio OD K, [address] [place] [address] [address], [place], [address] . tel:[phone] [facility], [address] [place] [address] [address], [place], [place], [address], [place] tel:[phone] SEC [place] Professional Complete Exam (chief complaint) Presence of intraocular lensOther secondary cataract, bilateralVitre ous degeneration, bilateral Nov- 2 Wilber Malik. [address] [facility], [address], [place], [place], [address], [place]. tel:[phone] Referring Provider: King Rajan, [address] [facility] [address], [place], [address] . tel:[phone] [facility], [address], [place], [place], [address], [place] tel:[phone] SEC [place] Professional Complete Exam (chief complaint) Presence of intraocular lensOther secondary cataract, bilateralPVD (posterior vitreous detachment), right eyeVitreous syneresis of both eyes 1 Wilber Malik. [address] [facility], [address], [place], [place], [address], [place]. tel:[phone] Referring Provider: King Rajan, [address] [facility] [email or web address], [place], [address] . tel:[phone] Office/outpa tient Visit, [facility], [address], [place], [place], [address], [place] tel:[phone] SEC Arsenio QUINTER[place] Professional 1 month PVD f/u (chief complaint) PVD (posterior vitreous detachment), right eye 0 Avel OD Michael. [address] [facility], [address] [facility], [place], [address], [place]. tel:[phone] Referring Provider: King Rajan, [email or web address], [place], [address] . tel:[phone] Office/outpa tient Visit, [facility], [address], [place], [place], [address], [place] tel:[phone] SEC Arsenio QUINTERO Professional Floater/co bweb in vision (chief complaint) PVD (posterior vitreous detachment), right eye 0 Avel OD Michael. [address] [facility], 6th Floor, [place], [address], [place]. tel:[phone] Referring Provider: King Rajan [email or web address], [place], [address] . tel:[phone] [facility], [address], [place], [place], [address], [place] tel:[phone] SEC [place] QU[place] Professional PCIOL Post OP (chief complaint) Encounter for examination following surgery 8 Myron OD Sarah. [address] [facility], [address], [place], [address], [place]. tel:[phone] Referring Provider: King Rajan, [address] [facility] [address], [place], [address] . tel:[phone] [facility], [address], [place], [place], [address], [place] tel:[phone] SEC [place] Professional Post-Op (chief complaint) Encounter for examination following surgery Jan- 8 Myron OD Sarah. [address] [facility], [facility] A, [place], [address], [place]. tel:[phone] Referring Provider: King Rajan, [address] [facility] [address], [place], [address] . tel:[phone] [facility], [address], [place], [place], [address], [place] tel:[phone] SEC [place] Professional Post-Op (chief complaint) Encounter for examination following surgery 8 Cardenas Lenora. [address] [facility], [place], [address], [place]. tel:[phone] Referring Provider: King Rajan, [address] [facility] [address], [place], [address] . tel:[phone] [facility], [address], [place], [place], [address], [place] tel:[phone] [facility] No Information 8 Wilber Malik. [address] [facility], [facility] A, [place], [place], [address], [place]. tel:[phone] Referring Provider: King Rajan, [address] [facility] [address], [place], [address] . tel:[phone] [facility], [address], [place], [place], [address], [place] tel:[phone] SEC [place] Professional Post-Op (chief complaint) Encounter for examination following surgery 8 Myron OD Sarah. [address] [facility], [address], [place], [address], . tel:[phone] Referring Provider: King Rajan, [address] [facility] [address], [place], [address] . tel:[phone] [facility], [address], [place], [place], [address], [place] tel:[phone] SEC [place] Professional Post-Op (chief complaint) Encounter for examination following surgery 8 Myron OD Sarah. [address] [facility], [facility] A, [place], [address], [place]. tel:[phone] Referring Provider: King Rajan, [address] [facility] [address], [place], [address] . tel:[phone] [facility], [address], [place], [place], [address], [place] tel:[phone] [place] Professional Post-Op (chief complaint) Encounter for examination following surgery 8 Theresa Cooley. [address] [facility], [place], [address], [place]. tel:[phone] Referring Provider: King Rajan, [address] [facility] [address], [place], [address] . tel:[phone] [facility], [address], [place], [place], [address], [place] tel:[phone] [facility] No Information 8 Wilber Malik. [address] [facility], [address], [place], [place], [address], . tel:[phone] Referring Provider: King Rajan, [address] [facility] [address], [place], [address] . tel:[phone] [facility], [address], [place], [place], [address], [place] tel:[phone] [place] Professional Testing only (chief complaint) Combined forms of age-related cataract, left eyeAge-related nuclear cataract, right eye Wilber Malik. [address] [facility], [address], [address], . tel:[phone] Referring Provider: King Rajan, [address] [facility] [address], [place], [address] . tel:[phone] [facility], [address], [place], [place], [address], [place] tel:[phone] [place] Professional Complete Exam (chief complaint) Age-related nuclear cataract, right eyeCombined forms of age-related cataract, left eye Wilber Malik. [address] [facility], [address], [address], . tel:[phone] Referring Provider: King Rajan, [address] [facility] [address], [place], [address] . tel:[phone] [facility], [address], [place], [place], [address], [place] tel:[phone] [place] Professional No Information Wilber Malik. [address] [facility], [address], [address], [place]. tel:[phone] Family History Family Member Type Diagnosis Age At Onset Brother Problem (finding) Diabetes mellitus Problem (finding) Family history of Diabe sandi mellitus Payers Payer name Insurance type Covered alliance party ID Ade schwartz(s) [place] DONNA [id number] [facility] Delio [id number] Social History Type Description Quantity Date Captured [...] Impression/Plan Impression/Plan Impression/Plan Impression/Plan Impression/Plan Impression/Plan Impression/Plan Encounter for examin ation following surgery - Post op instructions reviewed and understood by patient Related to Encounter for examination following surgery Impression/Plan - 2 Week Post-Op s/p phaco [...] sooner if any problems Follow up - as scheduled Impression/Plan - [...]
--- OUTSIDE RECORDS SUMMARY | 2025-04-18 17:54 | XMS_ITS | Data Portability ---
Author Organization [place] [facility], Main Office Address [address] [place] [address] Assessment No assessment recorded. Plan of Treatment Reminders Order Date Submit Date Provider Last Modified By Organization Details Last Modified Time Details Appointments None recorded. Lab None recorded. Referral None recorded. Procedures None recorded. Surgeries endoscopy, nasal/sinus , with frontal sinus exploration (SURG) 2022 023 MIGRATION [id number] Not available 00:33:17 Imaging None recorded. Medication Orders None recorded. Patient TargetsNo targets recorded. Patient Instructions Encounter Date Encounter Id Patient Instructions Last Modified By Organization Details Last Modified Time 02/17/2023 [id number] we will continue to work on her authorization for her biologic [email or web address] Not available 02/17/2023 11:27:01 Reason for Referral None Reported. Results Created Date Observation Date Name Description Value Unit Range Abnormal Flag Note LastModifiedBy Organization Detail LastModifiedTime 05/28/20 22 05/28/2022 POTAS SIUM potassium 4.4 mmol/ L 3.5-5. 1 Not Available [facility] (Lab) [address] [place], [address], 05/28/2022 09:30:08 05/28/20 22 05/28/2022 PLATE LET COUNT platelets 226 x10'3 /uL 150-40 0 Not Available [facility] (Lab) [address] [place], [address], 05/28/2022 09:18:10 05/28/20 22 05/28/2022 HEMOG LOBIN /ALYCE TOCRI T hemoglobin 15.0 g/dL 12.0-1 5.6 Not Available [facility] (Lab) [address] [place], [address], 05/28/2022 09:18:08 05/28/20 22 05/28/2022 HEMOG LOBIN /ALYCE TOCRI T hematocrit 45.8 % 35.7-4 5.7 high Not Available [facility] (Lab) [address] [place], [address], 05/28/2022 09:18:08 01/05/20 23 01/05/2023 POTAS SIUM potassium 3.6 mmol/ L 3.5-5. 1 Not Available [facility] (Lab) [address] [place], [address], 01/05/2023 08:35:39 01/05/20 23 01/05/2023 PLATE LET COUNT platelets 256 x10'3 /uL 150-40 0 Not Available [facility] (Lab) [address] [place], [address], 01/05/2023 08:35:19 01/05/20 23 01/05/2023 HEMOG LOBIN /ALYCE TOCRI T hemoglobin 15.0 g/dL 12.0-1 5.6 Not Available [facility] (Lab) [address] [place], [address], 01/05/2023 08:33:31 01/05/20 23 01/05/2023 HEMOG LOBIN /ALYCE TOCRI T hematocrit 45.9 % 35.7-4 5.7 high Not Available [facility] (Lab) [address] [place], [address], 01/05/2023 08:33:31 12/12/19 23 12/10/2022 CT, sinus es, w/o contr ast No observ ation record ed. [id number] [facility] [address] [place], [address], 01/27/2023 00:33:23 12/16/19 23 12/10/2022 CT, sinus es, w/o contr ast No observ ation record ed. [id number] [facility] [address] [facility], [place], [address], 01/27/2023 00:33:23 Result Notes None recorded. Problems Name Problem SNOMED Code Status Onset Date Resolution Date Notes Provider Name and Address Organization Details Recorded Time Chronic left maxillary sinusitis 9593362483309 9101 Active 2021 Not Available [facility] 3 00:30:14 Postoperat ophelia pain 782261431 Active 2022 Not Available [facility] 3 00:30:14 Chronic maxillary sinusitis 19466171 Active 2022 Not Available [facility] 3 00:30:14 Chronic sphenoidal sinusitis 57397948 Active 2021 Not Available [facility] 3 00:30:14 Chronic sinusitis 48309966 Active 2021 Not Available [facility] 3 00:30:14 Chronic frontal sinusitis 58710674 Active 2021 Not Available [facility] 3 00:30:14 Chronic ethmoidal sinusitis 34497198 Active 2021 Not Available [facility] 3 00:30:14 Chronic pansinusit is 81525487 Active 2022 Not Available [facility] 3 00:30:14 Polyp of nasal sinus 95029575 Active 2022 TRACY Valdovinos [facility] 3 08:51:50 Problem Notes None recorded. Procedures Surgical History Date Name Laterality Status Provider Name and Address Organization Details Recorded Time 01/05/20 23 ENDOSCOPY, NASAL/SINUS, WITH FRONTAL SINUS EXPLORATION (SURG) completed Not Available [facility] 01/27/2023 00:33:17 05/28/20 22 ENDOSCOPY, NASAL/SINUS, W/ MAXILLARY ANTROSTOMY & TISSUE REMOVAL (SURG) completed Not Available [facility] 01/27/2023 00:33:17 Imaging Results Imaging Date Name Status LastModified by Organiz ation Details LastModified Time 12/10/2022 CT, sinuses, w/o contrast completed [id number] [facility] [address] [place], [address], 01/27/2023 00:33:23 12/10/2022 CT, sinuses, w/o contrast completed [id number] [facility] [address] [place], [address], 01/27/2023 00:33:23 Procedure Notes None recorded. Medical Equipment None Reported. Allergies Allergen ID Allergen Name Allergen Category Reaction Reaction Severity Criticality Documentation Date Start Date Code Code System Note Provider Name and Address Organization Details Recorded Time 25534 amoxicill in medicatio n Not available Not available Not available 01/27/2023 723 RxNorm Not Available [facility] 00:33:03 Medications Name Sig Start Date Stop [...] cm 97.7 [degF] 7212.12 g Not Available [facility] 01/27/2023 00:29:10 Date Recorded Body mass index (BMI) Body height Body temperature Body weight Provider Name and Address Organization Details Last Updated DateTime 07/28/2022 22.8 kg/m2 165.1 cm 96.9 [degF] 53861.87 g Not Available [facility] 01/27/2023 00:29:10 Date Recorded Body mass index (BMI) Body height Body temperature Body weight Provider Name and Address Organization Details Last Updated DateTime 12/14/2022 21.8 kg/m2 165.1 cm 97.9 [degF] 17008.6 g Not Available [facility] 01/27/2023 00:29:10 Date Recorded Body mass index (BMI) Body height Body temperature Body weight Provider Name and Address Organization Details Last Updated DateTime 01/13/2023 20.8 kg/m2 165.1 cm 97.6 [degF] 87163.05 g Not Available [facility] 01/27/2023 00:29:10 Date Recorded Body height Body mass index (BMI) Body weight Body temperature Provider Name and Address Organization Details Last Updated DateTime 02/17/2023 165.1 cm 22.1 kg/m2 12058.79 g 97.7 [degF] Una Kincaid CMA [place] [facility] 02/17/2023 11:11:02 Social History Question Answer Notes LastModified by Organizat ion Details LastModified Time Tobacco Smoking Status Never Smoker Not Available [facility] 01/27/2023 00:27:32 In The 14 Days Before Symptom Onset, Have You Had Close Contact With A Laboratory-confirm ed COVID-19 While That Case Was Ill? No [id number] Information not available 01/27/2023 In The 14 Days Before Symptom Onset, Have You Had Close Contact With A Person Who Is Under Investigation For COVID-19 While That Person Was Ill? No [id number] Information not available 01/27/2023 Have You Recently Traveled Abroad? No [id number] Information not available 01/27/2023 Sex: Unknown Functional Status Question Answer Note LastModified by Organizat ion Details LastModified Time What is your level of alcohol consumption? None [id number] Information not available 01/27/2023 Mental Status None recorded. Family History Relationship Description Onset Age of this Age Resolved Age Notes LastModified by Organization Details LastModified Time Father No current problems or disability [id number] Not available 01/27/2023 00:28:02 Mother No current problems or disability [id number] Not available 01/27/2023 00:28:02 Medical History Condition Response MRSA N SLEEP APNEA N ALLERGIES/HAYFEVER N LUNG DISEASE/DISORDER N HISTORY OF DRUG ABUSE N INSOMNIA N COPD N RADIATION / CHEMOTHERAPY N HIGH CHOLESTEROL / HYPERLIPIDEMIA N HYPERTHYROIDISM N BLOOD DISEASES N EAR OR HEARING PROBLEMS N HYPOTHYROIDISM N SHINGLES N DEPRESSION (INCLUDING POST ) N HAVE YOU BEEN HOSPITALIZED OR SEEN IN [facility] ER IN THE PAST YEAR ? N STROKE/TIA N ULCERS N OBESITY N HISTORY WITH COMPLICATIONS WITH ANESTHES IA ? N ANEURYSM N USE OF BLOOD THINNERS N NO SIGNIFICANT PAST MEDICAL HISTORY N DIABETES, TYPE N PARATHYROID DISEASE N ENT N SEASONAL ALLERGIES Y HEARTBURN / REFLUX Y HEPATITIS / LIVER DISEASE N SLEEP DISORDER N HEADACHES/MIGRAINES N SEIZURES/EPILEPSY N CHF N PACEMAKER N DIZZINESS N HEART DISEASE/HEART PROBLEMS N AIDS/HIV N FRACTURES N HYPERTENSION N CANCER: SPECIFY N TOURETTE'S N BLOOD TRANSFUSION N ANESTHESIA COMPLICATIONS N ANEMIA/BLOOD DISORDER N CHRONIC EAR INFECTIONS N TUBERCULOSIS N Gynecological HistoryNo gynecological history recorded. Obstetrics History GPAL:G 0 P 0 0 0 0 Past Encounters Encounter ID Performer Location Encounter Start Date Encounter Closed Date Diagnosis/Indication Diagnosis SNOMED-CT Code Diagnosis ICD10 Code Diagnosis Note [id number] MD GEOFFREY White_[facility] [place] [address] [place] [address] 02/18/2022 00:00:00 02/18/2022 12:42:24 [id number] Ned Tamera, MD [facility] [place] [address] [place] [address] 04/08/2022 00:00:00 04/08/2022 14:14:39 [id number] MD GEOFFREY [facility] [place] [address] [place] [address] 06/08/2022 00:00:00 06/08/2022 10:26:01 [id number] MD TIMMY [facility] [place] [address] [place] [address] 07/28/2022 00:00:00 07/28/2022 14:29:08 [id number] MD TIMMY [facility] [place] [address] [place] [address] 12/14/2022 00:00:00 12/14/2022 11:53:49 [id number] MD GEOFFREY [facility] [place] [address] [place] [address] 01/13/2023 00:00:00 01/13/2023 11:12:34 [id number] MD GEOFFREY [facility] [place] [address] [place] [address] 02/17/2023 10:35:51 02/17/2023 11:42:47 Chronic sinusitis 95229448 J32.9 Health Concerns Section Related Observation LastModified by Organization Detai ls LastModified Time None Recorded Concern Status LastModified by Organization Details LastModified Time None Recorded Advance Directives Directive None Recorded Payers Encounter Date Sequence Insurance Name Policy Number Policy Woodard Covered Member ID Woodard Member ID Guarantor Name 02/17/2023 1 [place] Gabbie Chris [id number] Gabbie Chris 02/17/2023 2 [facility] (MEDICARE SUPPLEMENT) Gabbie Chris [id number] Gabbie Chris Notes Date Note Type Note Provider Name and Address Organization Details Recorded Time 02/17/2023 text/html this patient reports thatDupixent is working well and we are working on her pre authorization for permanent prescription. Ned Philip MD [address] [place] [address], [place] [address], [place], [address], [place] [facility] [place] [facility] [facility] 02/17/2023 11:27:23 OBGyn Episode No OBEpisode recorded.
--- OUTSIDE RECORDS SUMMARY | 2025-04-18 17:54 | XMS_ITS | Clinical Summary ---
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) - [facility] ENT [address] [facility] [address] [place] [address] Lydia Rojas MD S/P FESS (functional endoscopic sinus surgery) (Primary Dx); Chronic pansinusitis from Last 3 Months Surgical History Surgery [...] Grandmother Lu Coronary artery disease Mother Nasreen Frazier nary artery disease; Heart disease Mother Nasreen [...] week 01/18/2023 How often do you attend [facility] or scientology services? More than 4 times per year 01/18/2023 Do you belong to any clubs o r organizations such as religion groups, unions, fraternal or athletic groups, or [...] on file Legal Sex Female 1:11 AM GENERAL MACHINE OPERATOR Gender Identity Not on file [...] Comments Blood Pressure 134/85 01/15/2025 8:09 AM GENERAL MACHINE OPERATOR Pulse 66 01/15/2025 8:09 AM GENERAL MACHINE OPERATOR Temperature 36.3 C (97.3 F) 01/15/2025 8:09 AM GENERAL MACHINE OPERATOR Respiratory Rate 18 01/15/2025 8:09 AM GENERAL MACHINE OPERATOR Oxygen Saturation 100% 01/15/2025 8:09 AM GENERAL MACHINE OPERATOR Inhaled Oxygen Concentration - - Weight 69.4 [...] 08/13/2020, 05/28/2019, Additional history exists Covid-19 Vaccine (2023-2 5 season) 2024 02/24/2021, 02/03/2021 Osteoporosis Screening-Bone [...] Read Routine (OP Routine) 12/26/2024 7:47 AM GENERAL MACHINE OPERATOR Visit for screening mammogram DEXA AXIAL SKELETON BONE DENSITY 1 OR MORE SITES Schedule Routine, Read Routine (OP Routine) 11/08/2022 12:23 PM GENERAL MACHINE OPERATOR Osteopenia, unspecified location Asymptomatic menopausal state COLONOSCOPY 04/22/2022 7:32 AM CDT HEPATITIS C ANTIBODY Routine 02/05/2019 7:21 AM CDT from Last 3 Months or Most Recently Relevant to Health Maintenance Results * Screening Mammogram Bilateral W Hector (12/26/2024 7:47 AM GENERAL MACHINE OPERATOR) Anatomical Region Laterality Modality Breast Bilateral Mammography 12/26/2024 8:36 AM GENERAL MACHINE OPERATOR Impressions 12/26/2024 8:36 AM GENERAL MACHINE OPERATOR No evidence of malignancy in either breast. FINAL ASSESSMENT: BI-RADS Category 2: Benign. RECOMMENDATION: Recommend return for annual screening mammogram in 12 months. Electronically signed by: Dane Purdy M.D. Narrative 12/26/2024 8:36 AM GENERAL MACHINE OPERATOR EXAMINATION: BILATERAL SCREENING MAMMOGRAM COMPARISON: 12/08/2022, 11/08/2022, [...] 1 Or 2 Site (11/08/2022 12:23 PM GENERAL MACHINE OPERATOR) Anatomical Region Laterality Modality Body N/A Other 11/08/2022 7:03 PM GENERAL MACHINE OPERATOR Narrative 11/08/2022 7:05 PM GENERAL MACHINE OPERATOR EXAM DESCRIPTION: DEXA AXIAL SKELETON BONE DENSITY 1 OR MORE SITES REASON FOR STUDY: 67 y/o year old F with given history of screening. Postmenopausal Public Relations Representative/Model: MaintenanceNet Discovery SL (S/N [id number]) CLINICAL INFORMATION: Current height: 65 inches Maximum [...] Josh Avalos M.D. MF: ANTOINE Report ID: [id number] Reading Location: [id number] Procedure Note Josh Avalos MD - 11/08/2022 EXAM DESCRIPTION: DEXA AXIAL SKELETON BONE DENSITY 1 OR MORE SITES REASON FOR STUDY: 67 y/o year old F with given history ofscreening. Postmenopausal Public Relations Representative/Model: MaintenanceNet Discovery SL (S/N [id number]) CLINICAL INFORMATION: Current height: 65 inches Maximum [...] Josh Avalos M.D. MF: ANTOINE Report ID: [id number] Reading Location: [place] [address] Alhaji Payan MD IMG DXA PROCEDURES Final R esult * COLONOSCOPY (04/22/2022 7:32 AM CDT) Anatomical Region Laterality Modality Other Narrative Procedure Note Jaciel Mott MD - 04/22/2022 7:32 AM CDT [facility] Patient Name: Gabbie Chris Procedure Date: 04/22/2022 7:32 AM Date of : 1955 Admit Type: Outpatient Age: 66 Gender: Female Attending MD: Jaciel Mott M.D. Room: [facility] ENDOSCOPY ROOM 2 Note Status: Finalized Patient [...] scope was passed under direct vision. TheColonoscope [id number] was introduced through the anus and advanced [...] history of colonic polyps CPT copyright 2020 [employer]. All rights reserved. The codes documented in this report are preliminary and upon hostel manager reviewmay be revised to meet current compliance requirements. Recognized by the [place] [employer] for promoting quality in endoscopy us Jaciel Mott MD ENDOSCOPY PROCEDURES Final Re sult * Hepatitis C antibody (02/05/2019 7:21 AM CDT) Hep C Ab Negative Negative [facility] ([place]) Comment:Testing performed by : [facility], [address] [place] [address], [address] Blood specimen (specimen) 02/05/2019 7:21 AM CDT 02/05/2019 11:10 AM CDT Narrative [facility] [place]) - 02/05/2019 11:58 AM CDT us Torito Gonzalez MD LAB MICROBIOLOGY - GENERAL ORDERABLES Final Result [facility] [employer] [facility]) 1 [facility] Department [place] [address] from Last 3 Months or Most Recently Relevant to Health Maintenance Insurance MEDICARE [facility] MEDICARE [facility] [employer] ROEL KEBEDE MEDICARE Advance Directives For more information, please contact: [phone] * Full Code (Latest Code Status on [...] AM 01/15/2019 10:37 AM Care Teams Manager Services Relationship Specialty Start Date End Date Torito Gonzalez MD [address] [place] [address] PCP - General 02/25/17 [place] [address] [facility] [address] [place] [address] Consulting Physician Pulmonary Disease 01/30/24
--- NOTE | 2025-04-18 18:02 | ECG_ITS ---
Test Date: 2025-04-18 18:50:23 Measurements Intervals [place] Rate: 79 P: -8 [place]: 128 QRS: -16 QRSD: 90 T: 31 QT: 379 QTc: 435 Interpretive Statements SINUS RHYTHM POSSIBLE RIGHT VENTRICULAR CONDUCTION DELAY [RSR (QR) IN V1/V2] Compared to ECG 04/11/2025 03:14:04 NO SIGNIFICANT CHANGES Electronically Signed On 04-19-2025 12:34:43 CDT by Amber Gonzalez M.D.
[2025-04-18] MEDS: IPRATROPIUM 0.5 MG/ALBUTEROL SULFATE 2.5 MG AMPUL.NEB 3 ML INHALATION (18:14)
[2025-04-18] MEDS: methylPREDNISolone SOD SUCC 125 MG VIAL IV PUSH (18:14)
[2025-04-18] MEDS: MAGNESIUM SULF 2 GM/WATER 50ML 2 GM/50 ML BAG IVPB (18:15)
[2025-04-18 18:28] LABS: Base Excess ABG -0.4 mmol/L (0-2); HCO3 ABG 21.7 mmol/L (23-29); Oxygen Saturation ABG 95.4 % (95-97); Oxyhemoglobin 94.6 % (94-100); PCO2 ABG 29.6 mmHg (35-45); PO2 ABG 75.3 mmHg (75-85); pH ABG 7.48 (7.35-7.45)
[2025-04-18 18:31] LABS: Basophils Absolute Auto 0.05 K/mm3 (0.00-0.10); Basophils Percent Auto 0.4 % (0.0-1.0); Eosinophils Percent Auto 6.1 % (1.0-6.0); Hematocrit 45.6 % (35.0-42.0); Immature Granulocyte Absolute 0.14 K/mm3 (0.00-0.00); Immature Granulocyte Percent A 1.2 % (0.0-0.0); Lymphocytes Absolute Auto 4.09 K/mm3 (1.10-4.50); Lymphocytes Percent Auto 35.4 % (18.0-42.0); Mean Corpuscular HGB Conc 32.9 g/dL (32-36); Mean Corpuscular Hemoglobin 29.5 pg (27.0-31.0); Mean Corpuscular Volume 89.8 fL (78.0-102.0); Mean Platelet Volume 11.6 fl (9.2-11.8); Monocytes Absolute Auto 1.11 K/mm3 (0.10-0.90); Monocytes Percent Auto 9.6 % (2.0-11.0); Neutrophils Absolute Auto 5.47 K/mm3 (1.70-7.20); Neutrophils Percent Auto 47.3 % (50.0-70.0); Platelet Count Result 293 K/mm3 (150-420); Red Blood Count 5.08 M/mm3 (4.20-5.40); Red Cell Distribution Width 15.4 % (11.6-14.4); White Blood Count 11.6 K/mm3 (4.8-10.8)
--- OUTSIDE RECORDS SUMMARY | 2025-04-18 18:31 | XMS_ITS | Clinical Summary ---
Author Organization [facility] Address [address] [place] [address] Phone Care Team Providers Care Critical Care Registered Nurse Name Role Phone Torito Gonzalez MD Primary [...] Description 03/11/2025 10:30 AM CDT Office Visit [facility] [address] [place] [address] Torito Gonzalez MD Acute bilateral low back pain with right-sided sciatica (Primary Dx) Discharge Disposition: Discharged to home or Selfcare 03/11/2025 Travel 03/04/2025 Results Follow-Up [facility] [place] [address] Torito Gonzalez MD XR LUMBAR SPINE MINIMUM 4 VIEWS 02/25/2025 9:15 AM CDT - 02/25/2025 11:59 PM CDT Hospital Encounter [facility] Diagnostic Radiology [address] [place] [address] Torito Gonzalez MD Discharge Disposition: Discharged to home or Selfcare 02/25/2025 9:14 AM CDT [facility] 1 [facility] [place] [address] Torito Gonzalez MD Discharge Disposition: Discharged to home or Selfcare 02/25/2025 8:30 AM CDT [facility] [place] [address] [place] [address] Torito Gonzalez MD Acute bilateral low back [...] Adjuvanted 08/17/2023 Pneumococcal conjugate PCV20 , polysaccharide [id number] conjugate, adjuvant, PF 10/07/2022 Family History Medical [...] = 0.6 oz pur e alcohol) [facility] Utilities Answer Date Recorded In the past 12 months has [employer], gas, oil, or water [employer] threatened to shut off services in your [...] week 02/25/2025 How often do you attend [facility] or gnosticism services? More than 4 times per year 02/25/2025 Do you belong to any clubs o r organizations such as faith groups, unions, fraternal or athletic groups, or [...] Total Score - Questions 1-9 0 01/28 [facility] - Occupational [...] or slept in a chcf (including now)? Patient declined 11/16/2023 Housing Stability [...] were you homeless or living in a chcf (including now)? No 02/25/2025 Education Answer Date Recorded What is the highest level of school you have completed or the highest degree you have received? Master's degree (e.g., MA, MS, Nathalia, MEd, SALES SUPPORT ENGINEER, VANESSA) 02/10/2023 Sexually Active Control Partners Comments [...] [facility] [place] [address] [place] [id number] Torito Gonzalez MD [address] [place] [address] Health Maintenance Due Date Last Done Comments [...] CDT MAMMOGRAM BILATERAL GENERIC 10/26/2021 12:00 AM GYRO COMPASS TESTER from Last 3 Months or Most Recently [...] DIAGNOSTIC ORDERABLES Final Result Performing Organization Address [facility] de Phone Number SCAN * CT - CHEST (04/11/2025 12:00 AM CDT) 04/11/2025 us Provider Scan IMG CT ORDERABLES Final Result Performing Organization Address [facility] de Phone Number SCAN * SARS-COV-2 BY MOLECULAR (04/11/2025 12:00 AM CDT) 04/11/2025 us Provider Scan MICROBIOLOGY - GENERAL ORDERABLE S Final Result Performing Organization Address [facility] de Phone Number SCAN * TROPONIN I (TRP I) (04/11/2025 12:00 AM CDT) 04/11/2025 us Provider Scan CHEMISTRY ORDERABLES Final Resul t Performing Organization Address [facility] de Phone Number SCAN * LACTIC ACID (LACTATE) (04/11/2025 12:00 AM CDT) 04/11/2025 us Provider Scan CHEMISTRY ORDERABLES Final Resul t Performing Organization Address [facility] de Phone Number SCAN * D-DIMER (04/11/2025 12:00 AM CDT) 04/11/2025 us Provider Scan HEMATOLOGY ORDERABLES Final Resu lt Performing Organization Address [facility] de Phone Number SCAN * CMP (COMPREHENSIVE METABOLIC PANEL) (04/11/2025 12:00 AM CDT) 04/11/2025 us Provider Scan CHEMISTRY ORDERABLES Final Resul t Performing Organization Address [facility] de Phone Number SCAN * COMPLETE BLOOD COUNT (CBC) WITH DIFF (04/11/2025 12:00 AM CDT) 04/11/2025 us Provider Scan HEMATOLOGY ORDERABLES Final Resu lt Performing Organization Address [facility] de Phone Number SCAN * B-TYPE NATRIURETIC PEPTIDE (BNP) (04/11/2025 12:00 AM CDT) 04/11/2025 us Provider Scan CHEMISTRY ORDERABLES Final Resul t Performing Organization Address [facility] de Phone Number SCAN * PULMONOLOGY CONSULT (03/01/2025 12:00 AM CDT) 03/01/2025 us Provider Scan GENERIC SCAN ORDERS CONSULT Estefania l Result Performing Organization Address [facility] de Phone Number SCAN * XR LUMBAR [...] Damien Lugo M.D. TH: TH Report ID: [id number] Reading Location: [id number] Procedure Note Damien Lugo MD - 03/01/2025 [...] by Damien Lugo M.D. TH: Report ID: [id number] Reading Location: [id number] IMPRESSION: Normal right hip radiographs. Multilevel lumbar [...] Damien Lugo M.D. TH: TH Report ID: [id number] Reading Location: [id number] Procedure Note Damien Lugo MD - 03/01/2025 [...] Damien Lugo M.D. TH: TH Report ID: [id number] Reading Location: [id number] IMPRESSION: Normal right hip radiographs. Multilevel lumbar spine degenerative disc disease greatest and moderate at L4-L5, L5-S1 and T11-T12. us Torito Gonzalez MD IMG DIAGNOSTIC ORDERABLES F inal Result * HM COLONOSCOPY (04/22/2022 12:00 AM CDT) 04/22/2022 us Not On File Provider PROCEDURE/MINOR SURGICAL OR DERABLES Final Result SCAN * MAMMOGRAM BILATERAL MISCELLANEOUS (10/26/2021 12:00 AM GYRO COMPASS TESTER) 10/26/2021 us Not On File Provider IMG MAMMO ORDERABLES Final Result SCAN from Last 3 Months or Most Recently Relevant to Health Maintenance Insurance MEDICARE [employer] Care Teams Critical Care Registered Nurse Relationship Specialty Start Date End Date Torito Gonzalez MD [address] [place] [address] PCP - General Internal Medicine 02/01/20 Guille Collier MD [address] [place] [id number] Consulting Physician Pulmonary Disease 12/06/22
--- OUTSIDE RECORDS SUMMARY | 2025-04-18 18:31 | XMS_ITS | Encounter Summary ---
Author Organization [facility] Address [address] [place] [address] Phone Care Team Providers Care High Speed Printer Operator Name Role Phone Torito Gonzalez MD Primary Care Provider Guille Collier MD Unavailable Encounter Details Date Type Department Care Team (Late st Contact Info) Description 03/04/2025 Results Follow-Up [facility] - Internal Medicine - [place] [address] [place] [address] Torito Gonzalez MD [address] [address] XR LUMBAR SPINE MINIMUM 4 VIEWS Social History Tobacco Use Types Packs/Day Years Used Date Smoking Tobacco: Former Cigarettes Q uit: 12/07/2009 Passive Smoke Exposure: Past Smokeless Tobacco: Never Alcohol Use Standard Drinks/Week Comments Not Currently 0 (1 standard drink = 0.6 oz pur e alcohol) [facility] Utilities Answer Date Recorded In the past 12 months has [employer], gas, oil, or water company threatened [...] often do you attend chur ch or worship services? More than 4 times per year 02/25/2025 Do you belong to any clubs o r organizations such as amish groups, unions, fraternal or athletic groups, or [...] Total Score - Questions 1-9 0 01/28 [facility] - Occupational [...] a half-way (including now)? Patient declined 11/16/2023 Housing Stability [...] any time in the past 12 m [employer], were you homeless or living in a half-way (including now)? No 02/25/2025 Education Answer Date Recorded What is the highest level of school you have completed or the highest degree you have received? Master's degree (e.g., MA, MS, Nathalia, MEd, PROFESSIONAL CASTER, VANESSA) 02/10/2023 Sexually Active Control Partners [...] - [place] [address] [place] [id number] Torito Gonzalez MD [address] [place] [address] documented as of this encounter Visit Diagnoses Not on filedocumented in this encounter Additional Health Concerns Infection Onset Date Last Indicated Resolved Time Respiratory Rule-Out 04/11/2025 04/11/2025 025 7:19 AM CDT Assessment Noted Time PHQ-9 Depression Total Score: 0 02/26/20 25 8:15 AM CDT documented as of this encounter Care Teams High Speed Printer Operator Relationship Specialty Start Date End Date Torito Gonzalez MD [address] [place] [address] PCP - General Internal Medicine 02/01/20 Guille Collier MD [address] [place] [address] Consulting Physician Pulmonary Disease 12/06/22 documented as of this encounter
--- OUTSIDE RECORDS SUMMARY | 2025-04-18 18:31 | XMS_ITS | Continuity of Care Document ---
Author Organization [facility] Address [address] [place] [address] Phone Care Team Providers Care Filing Machine Operator Name Role Phone Lui sM OD, Ayesha Unavailable Unavailable Allergies, Adverse Reactions, [...] Diagnoses Date Provider Providers Copied on Encounter [facility], [address] [place] [address] [address], [place], [place], [id number], [place] tel:[phone] SEC [place] Professional Complete Exam (chief complaint) Presence of intraocular lensOther secondary cataract, bilateralVitre ous degeneration, bilateralOcula r hypertension, bilateral Nov- 3 Luis M OD Ayesha. [address] [place] [address] [address], [address], [place], [place], [address], [place]. tel:[phone] Referring Provider: Ayesha Asencio OD K, [address] [place] [address] [address], [place], [address] . tel:[phone] [facility], [address] [place] [address] [address], [place], [place], [address], [place] tel:[phone] SEC [place] Professional Complete Exam (chief complaint) Presence of intraocular lensOther secondary cataract, bilateralVitre ous degeneration, bilateral Nov- 2 Wilber Malik. [address] [facility], [address], [place], [place], [address], [place]. tel:[phone] Referring Provider: King Rajan, [address] [facility] [address], [place], [address] . tel:[phone] [facility], [address], [place], [place], [address], [place] tel:[phone] SEC [place] Professional Complete Exam (chief complaint) Presence of intraocular lensOther secondary cataract, bilateralPVD (posterior vitreous detachment), right eyeVitreous syneresis of both eyes 1 Wilber Malik. [address] [facility], [address], [place], [place], [address], [place]. tel:[phone] Referring Provider: King Rajan, [address] [facility] [address], [place], [address] . tel:[phone] Office/outpa tient Visit, [facility], [address], [place], [place], [address], [place] tel:[phone] SEC Arsenio QUINTERO Professional 1 month PVD f/u (chief complaint) PVD (posterior vitreous detachment), right eye 0 Avel OD Michael. [address] [facility], [address] [facility], [place], [address], [place]. tel:[phone] Referring Provider: King Rajan, [address] [facility] [address], [place], [address] . tel:[phone] Office/outpa tient Visit, [facility], [address], [place], [place], [address], [place] tel:[phone] SEC Arsenio QUINTERO Professional Floater/co bweb in vision (chief complaint) PVD (posterior vitreous detachment), right eye 0 Avel OD Michael. [address] [facility], 6th Floor, [place], [address], [place]. tel:[phone] Referring Provider: King Rajan [address] [facility] [address], [place], [address] . tel:[phone] [facility], [address], [place], [place], [address], [place] tel:[phone] SEC Arsenio QUINTERO Professional PCIOL Post OP (chief complaint) Encounter for examination following surgery 8 Myron OD Sarah. [address] [facility], [address], [place], [address], [place]. tel:[phone] Referring Provider: King Rajan, [address] [facility] [address], [place], [address] . tel:[phone] [facility], [address], [place], [place], [address], [place] tel:[phone] SEC Ar[place] Professional Post-Op (chief complaint) Encounter for examination following surgery Jan- 8 Myron OD Sarah. [address] [facility], [facility] A, [place], [address], [place]. tel:[phone] Referring Provider: King Rajan, [address] [facility] [address], [place], [address] . tel:[phone] [facility], [address], [place], [place], [address], [place] tel:[phone] SEC [place] Professional Post-Op (chief complaint) Encounter for examination following surgery 8 Cardenas Lenora. [address] [facility], [place], [address], [place]. tel:[phone] Referring Provider: King Rajan, [address] [facility] [address], [place], [address] . tel:[phone] [facility], [address], [place], [place], [address], [place] tel:[phone] [facility] No Information 8 Wilber Malik. [address] [facility], [facility] A, [place], [place], [address], [place]. tel:[phone] Referring Provider: King Rajan, [address] [facility] [address], [place], [address] . tel:[phone] [facility], [address], [place], [place], [address], [place] tel:[phone] SEC [place] Professional Post-Op (chief complaint) Encounter for examination following surgery 8 Myron OD Sarah. [address] [facility], [address], [place], [address], . tel:[phone] Referring Provider: King Rajan, [address] [facility] [address], [place], [address] . tel:[phone] [facility], [address], [place], [place], [address], [place] tel:[phone] SEC [place] Professional Post-Op (chief complaint) Encounter for examination following surgery 8 Myron OD Sarah. [address] [facility], [facility] A, [place], [address], [place]. tel:[phone] Referring Provider: King Rajan, [address] [facility] [address], [place], [address] . tel:[phone] [facility], [address], [place], [place], [address], [place] tel:[phone] SEC [place] Professional Post-Op (chief complaint) Encounter for examination following surgery 8 Theresa Cooley. [address] [facility], [place], [address], [place]. tel:[phone] Referring Provider: King Rajan, [address] [facility] [address], [place], [address] . tel:[phone] [facility], [address], [place], [place], [address], [place] tel:[phone] [facility] No Information 8 Wilber Malik. [address] [facility], [address], [place], [place], [address], . tel:[phone] Referring Provider: King Rajan, [address] [facility] [address], [place], [address] . tel:[phone] [facility], [address], [place], [place], [address], [place] tel:[phone] SEC [place] Professional Testing only (chief complaint) Combined forms of age-related cataract, left eyeAge-related nuclear cataract, right eye Wilber Malik. [address] [facility], [address] [place], [address], . tel:[phone] Referring Provider: King Rajan, [address] [facility] [address], [place], [address] . tel:[phone] [facility], [address], [place], [place], [address], [place] tel:[phone] SEC [place] Professional Complete Exam (chief complaint) Age-related nuclear cataract, right eyeCombined forms of age-related cataract, left eye Wilber Malik. [address] [facility] [facility], [address], [place], [address], . tel:[phone] Referring Provider: King Rajan, [address] [facility] [address], [place], [address] . tel:[phone] [facility], [address], [place], [place], [address], [place] tel:[phone] SEC [place] Professional No Information Wilebr Malik. [address] [facility], [address], [address], [place]. tel:[phone] Family History Family Member Type Diagnosis Age At Onset Brother Problem (finding) Diabetes mellitus Problem (finding) Family history of Diabe sandi mellitus Payers Payer name Insurance type Covered republican ID Ade schwartz(s) [place] DONNA [id number] [facility] [employer] [id number] Social History Type Description Quantity Date Captured [...]
[2025-04-18 18:35] LABS: Modified Allen's Test Pass; Site Drawn LEFT RADIAL
[2025-04-18 18:36] LABS: Device OTHER DEVICE
[2025-04-18 18:48] LABS: Lactic Acid Reflex 1.2 mmol/L (0.4-2.0)
[2025-04-18 18:57] LABS: Alanine Aminotransferase 21 U/L (6-35); Albumin Level 4.2 g/dL (3.5-5.1); Alkaline Phosphatase 38 U/L (38-126); Anion Gap 8 mmol/L (4-12); Aspartate Amino Transferase 59 U/L (14-36); Bilirubin,Total 1.7 mg/dL (0.2-1.3); Blood Urea Nitrogen 19 mg/dL (7-17); Calcium 8.5 mg/dL (8.4-10.2); Carbon Dioxide 21 mmol/L (22-30); Chloride 108 mmol/L (98-107); Estimated CRCL calculation 54 ml/min; Estimated Glomerular Filt Rate > 60; Glucose 86 mg/dL (65-110); INR 0.9; Magnesium 2.2 mg/dL (1.6-2.3); Osmolality Calculated 285 mOsm/kg (285-295); Partial Thromboplastin Time 25.7 Sec (23.9-30.70); Prothrombin Time 10.3 Seconds (9.50-12.1); Sodium 137 mmol/L (137-145)
[2025-04-18 18:59] LABS: D Dimer 0.77 mg/L (0.19-0.50); Potassium 5.2 mmol/L (3.4-5.0)
--- NOTE | 2025-04-18 19:04 | PC.NURSE ---
Report given to ERICK Horton
[2025-04-18 19:09] LABS: NT Pro B Type Natriuretic Pept 22 pg/mL (19.9-100); Troponin I 0.025 ng/mL (0.000-0.034)
[2025-04-18 19:19] LABS: Influenza A QL RT-PCR Negative (Negative); Influenza B QL RT-PCR Negative (Negative); RSV RNA, RT-PCR Negative (Negative); SARS-CoV-2 RNA PCR Negative (Negative)
--- NOTE | 2025-04-18 19:21 | PC.NURSE ---
PATIENT RESTING ON STRETCHER. WARM BLANKET GIVEN. CALL LIGHT IN REACH. AT HER SIDE. DENIES ANY NEEDS AT THIS TIME
--- NOTE | 2025-04-18 19:41 | PC.NURSE ---
PATIENT BEING TRANSPORTED TO CT VIA WHEELCHAIR.
--- NOTE | 2025-04-18 20:44 | ED_ITS ---
HPI - SOB/Dyspnea General Chief Complaint: Shortness of Breath/Dyspnea Stated Complaint: SOB Time Seen by Provider: 04/18/25 17:52 Source: patient and family Mode of arrival: ambulatory Limitations: no limitations History of Present Illness HPI Narrative: this is a 69-year-old female with a history of COPD presents with shortness of breath with some no chest pain patient states she has been having some chest tightness with no radiation of her pain no nausea vomiting no fever chills no abdominal pain no dysuria no hematuria no flank pain. MD elicited complaint: shortness of breath Pertinent past history: COPD Onset (ago): day(s) Timing: constant Severity: moderate Related Data Home Medications ?Medication ?Instructions ?Recorded ?Confirmed ?Last Taken ?Type amlodipine 5 mg tablet 5 mg PO DAILY 08/26/22 04/18/25 04/01/23 History aspirin 81 mg capsule 81 mg PO DAILY 08/26/22 04/18/25 04/01/23 History famotidine 20 mg tablet 20 mg PO DAILY 08/26/22 04/18/25 04/01/23 History Calcium 600 600 mg PO DAILY 05/08/23 04/18/25 Unknown History dupilumab 300 mg subcut [id number] 05/08/23 04/18/25 Unknown History formoterol fumarate 20 mcg inhalation DAILY 05/08/23 04/18/25 Unknown History budesonide 0.5 mg/2 mL suspension mg 04/18/25 Unknown History for nebulization meloxicam 7.5 mg tablet mg 04/18/25 Unknown History Allergies Allergy/AdvReac Type Severity Reaction Status Date / Time amoxicillin (From Augmentin) Allergy Dyspnea / Verified 04/18/25 18:36 SOB clavulanic acid (From Allergy Dyspnea / Verified 04/18/25 18:36 Augmentin) SOB doxycycline Allergy Back Pain Verified 04/18/25 18:36 adhesive tape AdvReac Rash Verified 04/18/25 18:36 Review of Systems 2 Review of Systems: All systems reviewed & are unremarkable except as noted in HPI and below PMFSH Past Medical History Medical History Closed fracture of metacarpal of left hand Hypoxia Acute exacerbation of emphysema Hypertension Emphysema of lung Surgical History Surgical History History of hysterectomy Hx of sinus surgery Family History Family History Unknown Asthma Hypertension Heart disease Diabetes mellitus Neuropathy Liver cancer Throat cancer Social History Social History Social History: HISTORY OF SMOKING IN THE PAST Smoking packs per day: 1 Smoking cigarettes per day: 20.0 Years smoked: 40 Smoking pack-years: 40.00 Smoking status: Former smoker Second hand tobacco smoke exposure: No Alcohol intake: current Drinks per week: 1 Substance use: current Substance use type: prescription drug Lack of Transportation: No Lack of Food: Never True Current Housing: I Have Housing Concerned About Future Housing: No Difficulty Paying Gas/Electric Bills: No Difficulty Paying for Meds: No Currently Unemployed: No Education: Bachelor's Degree Difficulty w/ Childcare or Family Care: No Occupation/Education: retired Gender identity (if verbalized by the patient): Female Spiritual care concerns: Yes (Scientology) Exam 2 Const: General: healthy appearing, no acute distress and alert Nutritional Appearance: well nourished Orientation/consciousness: patient oriented x3 Limitations: no limitations HENMT: Head: normal to inspection Neck: Neck: normal visual inspection, no lymphadenopathy and no meningeal signs Chest: Chest palpation & inspection: normal inspection of the chest Resp: Effort & Inspection: normal respiratory effort Auscultation: d iminished lung sounds Cardio: Rate: regular rate Rhythm: regular rhythm GI: GI Palp: Yes Soft to palpation Auscultation: normal bowel sounds : General: Yes bladder normal to palpation Skin: General skin exam: normal color Rashes: no rashes Wounds: no wounds Neuro: General: patient oriented x3, moves all extremities, no meningeal signs and no focal motor deficits Extrem: General: normal to inspection, no clubbing, cyanosis or edema and no pedal edema Course Course Emergency Course: Patient received DuoNebs, magnesium 2g IV and 125 IV Solu-Medrol reassessment of patient's symptoms have improved and breathing much easier. Chest x-ray shows no acute cardiopulmonary abnormality with no infiltrates, her blood work was unremarkable except D-dimer was elevated and CTA performed. Patient had an EKG which showed normal sinus rhythm. Vital Signs Vital signs: Vital Signs Temperature 36.9 C 04/18/25 17:53 Pulse Rate 91 04/18/25 17:53 Respiratory Rate 18 04/18/25 17:53 Blood Pressure 153/77 H 04/18/25 17:53 Pulse Oximetry 92 04/18/25 17:53 Oxygen Delivery Room Air 04/18/25 17:53 Temperature 36.9 C 04/18/25 17:53 Pulse Rate 70 04/18/25 19:32 Respiratory Rate 18 04/18/25 19:32 Blood Pressure 119/61 04/18/25 19:32 Pulse Oximetry 92 04/18/25 19:32 Oxygen Delivery Room Air 04/18/25 19:32 MDM - SOB/Dyspnea Lab Data 04/18/25 18:25 04/18/25 18:25 Labs: Lab Results 04/18/25 Range/Units 18:25 WBC 11.6 H (4.8-10.8) K/mm3 RBC 5.08 (4.20-5.40) M/mm3 Hgb 15.0 H (11.7-13.8) g/dL Hct 45.6 H (35.0-42.0) % MCV 89.8 (78.0-102.0) fL MCH 29.5 (27.0-31.0) pg MCHC 32.9 (32-36) g/dL RDW 15.4 H (11.6-14.4) % Plt Count 293 (150-420) K/mm3 MPV 11.6 (9.2-11.8) fl Immature Gran % (Auto) 1.2 H (0.0-0.0) % Neut % (Auto) 47.3 L (50.0-70.0) % Lymph % (Auto) 35.4 (18.0-42.0) % Fallon % (Auto) 9.6 (2.0-11.0) % Eos % (Auto) 6.1 H (1.0-6.0) % Baso % (Auto) 0.4 (0.0-1.0) % Lymph # (Auto) 4.09 (1.10-4.50) K/mm3 Fallon # (Auto) 1.11 H (0.10-0.90) K/mm3 Eos # (Auto) 0.70 H (0.02-0.50) K/mm3 Baso # (Auto) 0.05 (0.00-0.10) K/mm3 Abs Immat Gran (auto) 0.14 H (0.00-0.00) K/mm3 Absolute Neuts (auto) 5.47 (1.70-7.20) K/mm3 Absolute Nucleated RBC 0.00 (0.00-0.00) K/mm3 Nucleated RBC % 0.0 (0-0.0) % PT 10.3 (9.50-12.1) Seconds INR 0.9 APTT 25.7 (23.9-30.70) Sec D-Dimer 0.77 H* (0.19-0.50) mg/L Sodium 137 (137-145) mmol/L Potassium 5.2 H (3.4-5.0) mmol/L Chloride 108 H (98-107) mmol/L Carbon Dioxide 21 L (22-30) mmol/L Anion Gap 8 (4-12) mmol/L BUN 19 H (7-17) mg/dL Creatinine 0.75 (0.7-1.0) mg/dL Estim Creat Clear Calc 54 ml/min Estimated GFR > 60 (59 - ) Glucose 86 (65-110) mg/dL Calculated Osmolality 285 (285-295) mOsm/kg Lactic Acid 1.2 (0.4-2.0) mmol/L Calcium 8.5 (8.4-10.2) mg/dL Magnesium 2.2 (1.6-2.3) mg/dL Total Bilirubin 1.7 H (0.2-1.3) mg/dL AST 59 H (14-36) U/L ALT 21 (6-35) U/L Alkaline Phosphatase 38 (38-126) U/L Troponin I 0.025 (0.000-0.034) ng/mL NT-Pro-B Natriuret Pep 22 (19.9-100) pg/mL Total Protein 8.0 (6.3-8.2) g/dL Albumin 4.2 (3.5-5.1) g/dL Influenza A (RT-PCR) Negative (Negative) Influenza B (RT-PCR) Negative (Negative) RSV (RT-PCR) Negative (Negative) SARS-CoV-2 RNA (RT-PCR) Negative (Negative) ABG Data ABG results: 04/18/25 18:25 Puncture Site Left radial ABG pH 7.48 H ABG pCO2 29.6 L ABG pO2 75.3 ABG HCO3 21.7 L ABG O2 Saturation 95.4 ABG Base Excess -0.4 L Oxyhemoglobin 94.6 O2 Delivery Device Other device O2 Liters/Min Not Reportable Critical Care Time Critical Care Time Critical Care Time: No Discharge Plan Discharge Clinical Impression: COPD (chronic obstructive pulmonary disease) Qualifiers: COPD type: unspecified COPD Qualified Code(s): J44.9 - Chronic obstructive pulmonary disease, unspecified Acute bronchitis Qualifiers: Bronchitis organism: unspecified organism Qualified Code(s): J20.9 - Acute bronchitis, unspecified Patient Disposition: Home Condition: Stable Instructions: Antibiotic Form, Acute Bronchitis (ED), COPD (Chronic Obstructive Pulmonary Disease) (ED) Additional Instructions: advised patient to take medication as prescribed and follow with primary care physician within the next 3 to 5 days further evaluation and treatment. Patient Language: Trinidadian Prescriptions: New azithromycin [Zithromax Z-Jerson] 250 mg tablet See Rx Instructions .ROUTE .COMPLEX Qty: 6 0RF Rx Instructions: For 250 mg dose pack: take 500 mg today (day 1), then 250 mg for 4 days (days 2-5) prednisone 20 mg tablet 20 mg PO DAILY 5 Days Qty: 5 0RF No Action fluticasone propion-salmeterol [Advair Diskus] 250-50 mcg/dose blister with device 1 inh inhalation Q12H Qty: 60 2RF ipratropium-albuterol 0.5 mg-3 mg(2.5 mg base)/3 mL solution for nebulization 3 ml INHALATION QID Qty: 30 0RF albuterol sulfate [Ventolin HFA] 90 mcg/actuation HFA aerosol inhaler 2 puff inhalation QID Qty: 8.5 0RF Calcium 600 600 mg PO DAILY dupilumab 300 mg subcut [id number] formoterol fumarate 20 mcg inhalation DAILY azithromycin [Zithromax] 250 mg tablet 250 mg PO DAILY 4 Days Qty: 4 0RF Rx Instructions: start on day 2 of therapy prednisone 20 mg tablet 20 mg PO BID Qty: 10 0RF amlodipine 5 mg tablet 5 mg PO DAILY famotidine 20 mg Tablet 20 mg PO DAILY aspirin 81 mg Capsule 81 mg PO DAILY meloxicam 7.5 mg tablet budesonide 0.5 mg/2 mL suspension for nebulization Follow-up/Referrals: Carlos,Torito Holley MD [Primary Care Provider] - Time of Disposition: 21:39
--- NOTE | 2025-04-18 21:37 | PC.NURSE ---
DR CASIANO AT THE BEDSIDE
[2025-04-18] MEDS: AZITHROMYCIN 250 MG TABLET 500 MG PO (21:47)
--- NOTE | 2025-04-21 13:58 | PC.NURSE ---
PRELIMINARY BLOOD CULTURE REPORT; NO GROWTH TO DATE.
--- NOTE | 2025-04-25 13:33 | PC.NURSE ---
final blood cultures x2 reviewed. no growth after 5 days. no change in plan of care
== END 2025-04-18 22:02 | disposition home or self-care (01) ==
PROVIDERS: Emergency Provider Emergency Medicine; PCP Internal Medicine
DX: J44.0 Chronic obstructive pulmonary disease with (acute) lower respiratory infection (principal); J20.9 Acute bronchitis, unspecified; Z87.891 Personal history of nicotine dependence; Z20.822 Contact with and (suspected) exposure to COVID-19
CPT/HCPCS: 36415; 36600; 71045; 71275; 80053; 82805; 83605; 83735; 83880; 84484; 85025; 85380; 85610; 85730; 87040; 87637; 93005; 96365; 96375; 99284; A9270; J2919; J3475; Q9967

== ENCOUNTER 2025-08-05 21:26 | Observation (INO) | payer MEDICARE, OTHER, SELFPAY ==
--- OUTSIDE RECORDS SUMMARY | 2023-10-17 06:00 | XMS_ITS | Continuity of Care Document ---
Author Organization [employer] [facility] Address [address]ang [address] [place] [phone] Phone Care Team Providers Care Analytical Chemistry Teacher Name Role Phone Luis M OD, Ayesha Unavailable Unavailable Allergies, Adverse Reactions, Alerts Substance Reaction Status Criticality latex Active No Information Medications Medication Instructions Dosage Effective Dates (start - stop) Status Comments famotidine 20 mg tablet take 1 tablet by oral route 2 times every day 20 MG - Active Calcium 600 600 mg calcium (1,500 mg) tablet take 1 tablet by oral route every day 1 tablet - Active amlodipine 5 mg tablet take 1 tablet by oral route every day 5 MG - Active aspirin 81 mg tablet,delayed release take 1 tablet by oral route every day 81 MG - Active Procedures Procedure Date No Charge Optomap Fundus Photos 023 Eye Exam & Treatment Refraction No Charge Optomap Fundus Photos 022 Eye Exam & Treatment Fundus Photography W/ Report Eye Exam & Treatment Fundus Photography W/ Report Office/outpatient Visit, Est Fundus Photography W/ Report Office/outpatient Visit, Est No Charge Refraction Post-op Follow-up Visit Post-op Follow-up Visit Post-op Follow-up Visit Remove Cataract, Insert Lens No Charge Refraction Post-op Follow-up Visit Post-op Follow-up Visit Post-op Follow-up Visit Remove Cataract, Insert Lens IOLMaster No Charge Orbscan IOLMaster No Charge Refraction Eye Exam, New Patient Advance Directives Directive Yes / No Effective Date File Name No Information Encounters Encounter Description Practice Location Reason(s) For Visit Diagnoses Date Provider Providers Copied on Encounter [facility], [address] [place] [address] [address], [place], [place], [id number], [place] tel:[phone] SEC [place] Professional Complete Exam (chief complaint) Presence of intraocular lensOther secondary cataract, bilateralVitre ous degeneration, bilateralOcula r hypertension, bilateral Nov- 3 Luis M OD Ayesha. [address] [place] [address] [address], [address], [place], [place], [address], [place]. tel:[phone] Referring Provider: Ayesha Asencio OD K, [address] [place] [address] [address], [place], [address] . tel:[phone] [facility], [address] [place] [address] [address], [place], [place], [address], [place] tel:[phone] [place] Professional Complete Exam (chief complaint) Presence of intraocular lensOther secondary cataract, bilateralVitre ous degeneration, bilateral Nov- 2 Wilber Malik. [address] [facility], [address], [place], [place], [address], [place]. tel:[phone] Referring Provider: King Rajan, [address] [facility] [address], [place], [address] . tel:[phone] [facility], [address], [place], [place], [address], [place] tel:[phone] [place] Complete Exam (chief complaint) Presence of intraocular lensOther secondary cataract, bilateralPVD (posterior vitreous detachment), right eyeVitreous syneresis of both eyes 1 Wilber Malik. [address] [facility], [place], [place], [address], [place]. tel:[phone] Referring Provider: King Rajan, [address] [facility] [address], [place], [address] . tel:[phone] [place] [facility] [place] [address], [place], [place], [address], [place] tel:[phone] SEC Arsenio QUINTERO Professional 1 month PVD f/u (chief complaint) PVD (posterior vitreous detachment), right eye 0 Avel OD Michael. [address] [facility], [address] [facility], [place], [address], [place]. tel:[phone] Referring Provider: King Rajan, [address] [employer] [address], [place], [address] . tel:[phone] [place]pa [place]ient [place] [facility] [place] [address], [place], [place], [address], [place] tel:[phone] SEC Arsenio QUINTERO Professional Floater/co bweb in vision (chief complaint) PVD (posterior vitreous detachment), right eye 0 Avel OD Michael. [address] [facility], 6th Floor, [place], [address], [place]. tel:[phone] Referring Provider: King Rajan [address], [place], [address] . tel:[phone] [facility], [address], [place], [place], [address], [place] tel:[phone] SEC Arsenio QUINTERO Professional PCIOL Post OP (chief complaint) Encounter for examination following surgery 8 Myron OD Sarah. [address] [facility], [address], [place], [address], [place]. tel:[phone] Referring Provider: King Rajan, [address] [facility] [address], [place], [address] . tel:[phone] [facility], [address], [place], [place], [address], [place] tel:[phone] SEC [place] Professional Post-Op (chief complaint) Encounter for examination following surgery Jan- 8 Myron OD Sarah. [address] [facility], [facility] [address], [place], [address], [place]. tel:[phone] Referring Provider: King Rajan, [address] [facility] [address], [place], [address] . tel:[phone] [facility], [address], [place], [place], [address], [place] tel:[phone] [place] Professional Post-Op (chief complaint) Encounter for examination following surgery 8 Cardenas Lenora. [address] [facility], [place], [address], [place]. tel:[phone] Referring Provider: King Rajan, [address] [facility] [address], [place], [address] . tel:[phone] [facility], [address], [place], [place], [address], [place] tel:[phone] [facility] No Information 8 Wilber Malik. [address] [facility], [facility] [address], [place], [place], [address], [place]. tel:[phone] Referring Provider: King Rajan, [address] [facility] [address], [place], [address] . tel:[phone] [facility], [address], [place], [place], [address], [place] tel:[phone] [place] Professional Post-Op (chief complaint) Encounter for examination following surgery 8 Myron OD Sarah. [address] [facility], [address], [place], [address], . tel:[phone] Referring Provider: King Rajan, [address] [facility] [address], [place], [address] . tel:[phone] [facility], [address], [place], [place], [address], [place] tel:[phone] [place] Professional Post-Op (chief complaint) Encounter for examination following surgery 8 Myron OD Sarah. [address] [facility], [facility] [address], [place], [address], [place]. tel:[phone] Referring Provider: King Rajan, [address] [facility] [address], [place], [address] . tel:[phone] [facility], [address], [place], [place], [address], [place] tel:[phone] [place] Professional Post-Op (chief complaint) Encounter for examination following surgery 8 Theresa Cooley. [address] [facility], [place], [address], [place]. tel:[phone] Referring Provider: King Rajan, [address] [facility] [address], [place], [address] . tel:[phone] [facility], [address], [place], [place], [address], [place] tel:[phone] [facility] No Information 8 Wilber Malik. [address] [facility], [address], [place], [place], [address], . tel:[phone] Referring Provider: King Rajan, [address] [facility] [address], [place], [address] . tel:[phone] [facility], [address], [place], [place], [address], [place] tel:[phone] [place] Testing only (chief complaint) Combined forms of age-related cataract, left eyeAge-related nuclear cataract, right eye Wilber Malik. [address] [facility], [address] [place], [address], . tel:[phone] Referring Provider: King Rajan, [address] [facility] [address], [place], [address] . tel:[phone] [facility], [address], [place], [place], [address], [place] tel:[phone] [place] Professional Complete Exam (chief complaint) Age-related nuclear cataract, right eyeCombined forms of age-related cataract, left eye Wilber Malik. [address] [facility], [address] [place], [address], . tel:[phone] Referring Provider: King Rajan, [address] [facility] [address], [place], [address] . tel:[phone] [facility], [address], [place], [place], [address], [place] tel:[phone] [place] Professional No Information Wilber Malik. [address] [facility], [address] [place], [address], [place]. tel:[phone] Family History Family Member Type Diagnosis Age At Onset Brother Problem (finding) Diabetes mellitus Problem (finding) Family history of Diabe sandi mellitus Payers Payer name Insurance type Covered republican ID Ade schwartz(s) [place] DON[place] [id number] [facility] Delio [id number] Social History Type Description Quantity Date Captured Comments Alcohol Use Details No Caffeine Use Details Tobacco Use Status Ex-cigarette smoker 023 Smoking Status Former smoker Smoking Tobacco Use Details Cigarette: Age Started: 14, Age Stopped: 42, Years Used 28 Cigarette: 1 Packs per day, Pack Year: 28 Sex Female Gender Identity Female Chief Complaint And Reason For Visit From encounter dated '10/17/2023 11:00'. Complete Exam (chief complaint). Description: The 68 year old patient presents for evaluation of Complete Exam in the right eye and left eye. Pt states no changes in vision since last visit. Pt does state that OD does alvarez every now and then and it itches as well. Reason For Referral Reason For Referral No Information Plan Of Treatment Date Type Action Status Patient Education Learning About YAG Lase r Capsulotomy completed Patient Education Learning About Vitreous Detachment completed History Of Present Illness Encounter Date Complaint History Of Prese nt Illness Complete Exam The 68 year old patient presents for evaluation of Complete Exam in the right eye and left eye. Pt states no changes in vision since last visit. Pt does state that OD does alvarez every now and then and it itches as well. Complete Exam The 67 year old patient presents for evaluation of Complete Exam in the right eye and left eye. Pt reports stable VA, OU, DV and NV, since last appt. Pt reports she doesn't use any gtts, OU. Pt states she would like to get new gls. Complete Exam The 66 year old female presents for evaluation of Complete Exam in the right eye and left eye. Hx PCIOL OU. Pt reports stable vision in current spec Rx since last visit. Pt reports tearing OD. Pt reports floaters OD, she denies flashes and dark curtains OD. 1 month PVD f/u The 64 year old female presents for evaluation of 1 month PVD f/u in the right eye. Hx of PCIOL OU, Pinguicula OD, and PVD OD. Patient states the floater is still there in the right eye. Patient states she has an occasional flash of light out of the temporal side of right eye VA. Floater/cobweb in vision The 64 year old female presents for evaluation of Floater/cobweb in vision in the right eye. Hx of PCIOL OU. Pt c/o floater and cobweb in VA, OD, constant, since last . Pt denies any flashes of light and no pain, OU. Pt reports she used a AFT but normally doesn't use any gtts, OU. PCIOL Post OP The 62 year old female presents for 2 Wk PCIOL Post OP in the right eye. Pt currently using Vig, ketorolac TID OD, and Pred BID OD. Pt states vision OD is a lot better than it was after sx. Pt denies any new flashers, floaters, pain or discomfort at this time. Post-Op The 62 year old female presents for a 1 week post op CE OD. Patient is using Pred and Vigamox and Ketorolac tid OD. Patient states OD is doing good. Patient states OD is doing good. Post-Op The 62 year old female presents for a 1 day post op CE OD. Patient is using Pred, Vigamox and Diclofenac qid OD. Patient denies any pain or discomfort. Post-Op The 62 year old female presents for a 2 week post op CE OS. Patient is using Pred, Vigamox and Ketorolac tid OS. Patient states OS is doing good. Patient wishes to proceed with CE OD because of decreased vision and patient notices a difference between eyes. Post-Op The 62 year old female presents for a 1 week post op CE OS. Patient is using Pred qid, Ketorolac tid and Vigamox tid OS. Patient states OS is doing good. Post-Op The 62 year old female presents for a 1 day post op CE OS. Patient is using Pred and Vigamox qid OS and Ketorolac tid OS. Patient denies any pain or discomfort. Patient thinks she is seeing a small curve/edge of the lens. Testing only The 62 year old female presents for Testing only in the right eye and left eye. IOL Master and Pentacam Complete Exam The 62 year old female presents for Complete Exam in the right eye and left eye. No past Ocular Hx. Py not currently using any gtts. Pt states about 3-4 months ago vision became blurry and at night seeing double lights, and halos around them. Vision issues are present in both eyes, but worst in OS. Patient also reports intermittent sharp pain over OS. Pt seen by Dr Chow informed pt of a freckle OS. Pt denies any pain or discomfort a this time. Functional Status Date Functional Assessmen t No Information Instructions Date Instruction Additional Infor mila Impression/Plan Impression/Plan Impression/Plan Impression/Plan Impression/Plan Impression/Plan Impression/Plan Impression/Plan Follow up - Patient will return as scheduled, sooner if any problems Impression/Plan - 2 Week Post-Op s/p phaco with PCIOL OS- IOL in great position; healing well OS- IOP well controlled- Activities restrictions and shield use reviewed- Medication instillation and post op instructions reviewed- Continue pred TID then taper as scheduled, Vigamox TID until empty, and ketorolac TID until empty- Okay to continue with CE OD on 02/08- Patient will return as scheduled, sooner if any problems Encounter for examin ation following surgery - Post op instructions reviewed and understood by patient Related to Encounter for examination following surgery Encounter for examin ation following surgery - Medication use reviewed Related to Encounter for examination following surgery Encounter for examin ation following surgery - Medication use reviewed Related to Encounter for examination following surgery Encounter for examin ation following surgery - Post op instructions reviewed and understood by patient Related to Encounter for examination following surgery Impression/Plan - 1 Week Post-Op s/p phaco with PCIOL OS- IOL in great position; healing well- IOP well controlled- Activities restrictions and shield use reviewed- Medication instillation and post op instructions reviewed- Patient will return as scheduled, sooner if any problems Follow up - Patient will return as scheduled, sooner if any problems Impression/Plan - PO D 1 s/p CE/PCIOL OSDoing well. IOP well controlled. Post op med instructions reviewed with pt, and post op instructions discussed. Discussed warning signs and symptoms and need for immediate exam should these occur. Pt understands shield use, return to clinic for post op exam as scheduled. Follow up - as scheduled Impression/Plan - Mo derate Cataracts OU- Cataracts OU account for patient's visual complaints.- Discussed all R/B/A pertaining to cataract surgery.- The procedure and recovery from cataract extraction were discussed.- Recommend phacoemulsification with intraocular lens implant.- Lifestyle lenses discussed- The possibility that patient may still need to wear glasses to correct astigmatism and/or for reading vision following surgery reviewed and understood by patient.- Schedule CE OS with Standard IOL for distance, followed by CE OD with Standard IOL for distance. Follow up - Schedule CE OS with Standard IOL for distance, followed by CE OD with Standard IOL for distance. Follow up - Return i n 2 weeks for IOL master + Pentacam, CE video, and talk to TOSIN Impression/Plan - Ca taracts OU- Visually significant- Educated on cataracts, signs, symptoms, and treatment- Discussed CE vs updated MRx- Discussed overall health of eyes, no signs of AMD or glaucoma- The procedure and recovery from cataract extraction were discussed.- Discussed all R/B/A pertaining to cataract surgery.- Recommend phacoemulsification with intraocular lens implant.- Lifestyle lenses discussed- Plan for CE OS followed by OD- Return in 2 weeks for IOL master + Pentacam, CE video, and talk to TOSIN Combined forms of ag e-related cataract, left eye - Surgical risks, alts and benefits discussed Related to Combined 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
[2025-08-05] VITALS (12 sets, daily range): BP systolic 105–137; BP diastolic 63–92; PULSE 71–104; RESP 16–28; TEMP 36.6; O2SAT 88–95
--- NOTE | ~2025-08-05 | XR_ITS ---
EXAMINATION: XR chest 1V portable 08/05/2025 21:49 INDICATION: Shortness of breath. COPD. PROCEDURE: AP portable chest COMPARISON: Comparison to multiple prior studies sequentially, with oldest reviewed study dated 07/08/2023. FINDINGS: The lungs are clear. The lungs are hyperinflated which is consistent with, but not diagnostic of chronic obstructive pulmonary disease. The cardiomediastinal silhouette is within normal limits. There are no pleural effusions. There is no pneumothorax suspected. IMPRESSION: 1: NO ACUTE CARDIOPULMONARY DISEASE. Reviewed, dictated and finalized at location O.
--- NOTE | ~2025-08-05 | CT_ITS ---
EXAMINATION: CTA chest PE protocol, 08/05/2025 23:10 CDT HISTORY: elev dimer/cp/sob COMPARISON: No comparisons available. TECHNIQUE: CTA examination is obtained with contrast CTA examination technique is performed with arterial phase of contrast-enhancement. 3-D reconstruction with thin MIP axial and MPR coronal imaging is provided Isovue 300, 92cc injected IV. One or more of the following dose reduction techniques were used: automated exposure control, adjustment of the mA and/or kV according to patient size, use of iterative reconstruction technique. FINDINGS: LUNGS: Moderate emphysematous changes. No bullous formation. Mild pulmonary fibrotic changes, no honeycombing. There is no tracheomalacia or bronchiectasis. There are bilateral areas of bronchial wall thickening noted with basilar areas of linear atelectasis. Apical scarring noted bilaterally. COPD changes are noted with hyperexpansion of the lungs. HEART AND PERICARDIUM: Within normal limits. AORTA: Normal caliber aorta.. PULMONARY ARTERIES: No pulmonary embolism ADENOPATHY/MEDIASTINUM: None. LIMITED VIEWS OF THE ABDOMEN: Within normal limits. OSSEOUS STRUCTURES: No sclerotic or lytic lesions. No acute fractures are identified. Moderate loss of vertebral heights and disc heights throughout, no acute fracture. OVERLYING SOFT TISSUES: Unremarkable. THYROID: The thyroid is unremarkable. IMPRESSION: Negative for pulmonary embolism. Bilateral probable bronchitis. Reviewed, dictated and finalized at location A.
--- OUTSIDE RECORDS SUMMARY | 2025-08-05 21:28 | XMS_ITS | Encounter Summary ---
Author Organization [facility] Address [address] [place] [address] Phone Care Team Providers Care Cyber Systems Administrator Name Role Phone Torito Gonzalez MD Primary Care Provider [phone] Sol Lincoln MD Unavailable [phone] Vitaly Esquivel MD Unavailable [phone] Encounter Details Date Type Department Care Team (Late st Contact Info) Description 06/14/2025 Results Follow-Up [facility] Medicine Allergy and Immunology [address] [place] [address] Giana Joshi MD [address] [facility] [address] [place] [address] Differential, auto Social History Tobacco Use Types Packs/Day Years Used Date Smoking Tobacco: Former Cigarettes 0.5 40 Q uit: 11/28/2009 Smokeless Tobacco: Never Comments:Smoking History Pac ks/day: 0.25 Packs Alcohol Use Standard Drinks/Week Comments No 0 (1 standard drink = 0.6 oz pur e alcohol) Social Connection and Isolation Panel Answer Date Recorded In a typical week, how many times do you talk on the phone with family, friends, or neighbors? More than three times a week 01/18/2023 How often do you get togethe r with friends or relatives? More than three times a week 01/18/2023 How often do you attend [facility] or christian services? 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 Gender Identity Not on file Sexual Orientation Not on file documented as of this encounter Plan of Treatment Not on file documented as of this encounter Visit Diagnoses Not on filedocumented in this encounter Additional Health Concerns Infection Onset Date Last Indicated Resolved Time COVID: Suspected 07/08/2025 07/08/2025 07/08/2025 5:02 PM CDT documented as of this encounter Care Teams Cyber Systems Administrator Relationship Specialty Start Date End Date Torito Gonzalez MD [address] [place] [address] PCP - General 02/25/17 [place] [id number] [address] Consulting Physician Pulmonary Disease 01/30/24 Vitaly Esquivel MD [address] [place] [address] Consulting Physician Family Medicine 07/11/25 documented as of this encounter
--- OUTSIDE RECORDS SUMMARY | 2025-08-05 21:28 | XMS_ITS | Clinical Summary ---
Author Organization [facility] Address [address] [place] [address] Phone Care Team Providers Care Personal Attendant Name Role Phone Torito Gonzalez MD Primary Care Provider [phone] Guille Collier MD Unavailable Allergies Active Allergy Reactions Criticality Noted Date Comments Amoxicillin Nausea 01/14/2022 Doxycycline Other (see Comments) 05/17/2023 Severe Back Pain Levofloxacin Palpitations 09/16/2022 Medications amLODIPine (NORVASC) 5 MG Tablet Take 5 mg by mouth daily. Active aspirin 81 MG Chewable Tablet Baby Aspirin 81 mg chewable tablet Chew 1 tablet every day by oral route. Active famotidine (PEPCID) 20 MG Tablet Take 1 Tablet by mouth 2 times daily. 90 Tablet 09/14/20 22 Active Calcium Carbonate (CALCIUM 500 PO) Take by mouth. Activ e Denosumab (PROLIA) 60 MG/ML Solution Prefilled Syringe 60 mg by Subcutaneous route. 12/21/19 23 Active Dupilumab (Dupixent) 200 MG/1.14ML Solution Pen-injector by Subcutaneous route. Active ipratropium-a lbuterol (DUO-NEB) 0.5-2.5 (3) MG/3ML Solution 3 mL by Nebulization route 4 times daily. DX J44.9 COPD 360 mL 5 06/30/20 23 Active Perforomist 20 MCG/2ML Nebulizer Soln USE 1 VIAL IN NEBULIZER ONCE DAILY 05/16/20 23 Active budesonide (PULMICORT) 0.5 MG/2ML Suspension USE 1 VIAL IN NEBULIZER ONCE DAILY 10/17/20 Active meloxicam (MOBIC) 7.5 MG Tablet TAKE 1 TABLET BY MOUTH ONCE DAILY NEEDED FOR MILD OR MORE SEVERE PAIN 90 Tablet 06/10/20 Active mometasone (ELOCON) 0.1 % Solution Apply daily. Active albuterol 108 (90 Base) MCG/ACT Aerosol Solution INHALE 1 TO 2 PUFFS BY MOUTH EVERY 6 HOURS NEEDED FOR WHEEZING 18 g 07/30/20 25 Active albuterol 108 (90 Base) MCG/ACT Aerosol Solution take 1-2 Puffs by inhalation every 6 hours as needed for Wheezing. 18 g 2 05/20/20 25 025 Discontinued predniSONE (DELTASONE) 20 MG Tablet Take 1 Tablet by mouth daily. 7 Tablet 05/20/20 25 025 Discontinued( ed List Clean Up) amoxicillin-c lavulanate (AUGMENTIN) 875-125 MG Tablet Take 1 Tablet by mouth 2 times daily for 10 days. 20 Tablet 07/19/20 25 025 Active Problems Problem Noted Date Diagnosed Date Age-related osteoporosis wit hout current pathological fracture 11/19/2024 Dyspepsia 11/19/2024 GERD without esophagitis 05/17/2024 Eczema 11/16/2023 TOOTIE (obstructive sleep apnea) 12/06/2022 Centrilobular emphysema 10/07/2022 Allergic rhinitis 10/07/2022 Essential (primary) hypertension 10/02/2013 Resolved Problems Problem Noted Date Diagnosed Date Resolved Date Hyperlipidemia 10/02/2013 05/17/2024 Encounters Date Type Department Care Team Description 07/30/2025 Refill [facility] [place] [address] [place] [address] Torito Gonzalez MD Medication Refill 07/24/2025 Patient Outreach [facility] [address] Amina James Care Management 07/19/2025 2:00 PM CDT Office Visit [facility] [place] [address] [place] [address] Torito Gonzalez MD Chronic sinusitis, unspecified location (Primary Dx); COPD exacerbation (HCC); Essential (primary) hypertension Discharge Disposition: Discharged to home or Selfcare 07/19/2025 Travel 07/16/20[facility] [address] [place] [phone] Torito Gonzalez MD Follow-up 06/08/2025 [facility] [address] [place] [phone] Torito Gonzalez MD Medication Refill 05/22/2025 Patient Outreach [facility] Managing Member Management [address] [place] [id number] Felisa Jacob RN Patient Outreach (High Risk MSSP ) 05/20/2025 8:00 AM CDT Office Visit [facility] [address] [place] [address] Torito Gonzalez MD Acute non-recurrent sinusitis, unspecified location (Primary Dx); Centrilobular emphysema (HCC); Essential (primary) hypertension; Chronic pain of right hip Discharge Disposition: Discharged to home or Selfcare 05/20/2025 Travel from Last 3 Months Immunizations Immunization Administration Dates Next Due Covid-19, Mrna, Lnp-s, Pf, 30 Mcg/0.3 Ml Dose (P fizer) 02/24/2021,02/03/2021 Influenza Vaccine greater than 3 yrs 09/11/2024 Influenza Vaccine, Quadrivalent, PF 09/14/2022,1 Influenza, High-dose, Quadrivalent 09/17/2021 Influenza, Quadrivalent, Adjuvanted 08/17/2023 Pneumococcal conjugate PCV20 , polysaccharide [id number] conjugate, adjuvant, PF 10/07/2022 Family History Medical [...] your home? No 02/25/2025 Social Connection and Isolation Panel Answer Date Recorded In a typical week, how many times do you talk on the phone with family, friends, or neighbors? More than three times a week 02/25/2025 How often do you get togethe r with friends or relatives? Twice a week 02/25/2025 How often do you attend chur ch or scientology services? More than 4 times [...] Total Score - Questions 1-9 0 01/28 [facility] Occupat ional Health - Occupational Stress [...] time in the past 12 m [facility], were you homeless or living in a chcf (including now)? No 02/25/2025 Education Answer Date Recorded What is the highest level of school you have completed or the highest degree you have received? Master's degree (e.g., MA, MS, Nathalia, MEd, [employer], [employer]ANESSA) 02/10/2023 Sexually Active Control Partners Comments Not Currently Comments No Sex and Gender Information Value Date Recorded Sex Assigned at Not on file Legal Sex Female 10:44 PM CDT Gender Identity Not on file Sexual Orientation Not on file Last Filed Vital Signs Vital Sign Reading Time Taken Comments Blood Pressure 108/66 07/19/2025 1:38 PM CDT Pulse 88 07/19/2025 1:38 PM CDT Temperature 36.6 C (97.9 F) 07/19/2025 1:38 PM CDT Respiratory Rate 12 05/17/2024 8:16 AM CDT Oxygen Saturation 92% 07/19/2025 1:38 PM CDT Inhaled Oxygen Concentration - - Weight 68 kg (150 lb) 07/19/2025 1:38 PM CDT Height 165.1 cm (5' 5) 07/19/2025 1:38 PM CDT Body Mass Index 24.96 07/19/2025 1:38 PM CDT Plan of Treatment Upcoming Encounters Date Type Department Care Team (Late st Contact Info) Description 08/20/2025 8:00 AM CDT Office Visit [facility] [place] [address] [place] [phone] Torito Gonzalez MD [address] [place] [address] Health Maintenance Due Date Last Done Comments Hepatitis C Virus (HCV) Screening 1955 TdaP Immunization 1955 Cologuard 1998 Immunochemical Fecal Occult Blood 09/01/2022 09/01/2021, 08/13/2020 DEXA Bone Density 11/08/2024 11/08/2022, , 06/13/2017, Additional history exists Influenza Immunization (#1) 07/29/202508/28, 08/17/2023, 09/14/2022, Additional history exists Mammogram 12/26/2025 12/26/2024, 10/28, 10/26/2021, Additional history exists Colonoscopy 04/22/2032 04/22/2022, 03/29, 04/22/2022, Additional history exists Colorectal Cancer Screening 04/22/2032 Pneumococcal Immunization (50+ years) Completed 10/07/2022 Pneumococcal Immunization Combined Discontinued 10/07/2022 Respiratory Syncytial Virus (RSV) Immunization (Adult) Completed 11/23/2023 SARS-COV-2 Immunization Discontinued 11/23/20 23, 02/22/2023, 11/11/2021, Additional history exists Hepatitis B [...] Procedure Name Priority Date/Time Associated Diagnosis Comments HM COLONOSCOPY 04/22/2022 12:00 AM CDT MAMMOGRAM BILATERAL GENERIC 10/26/2021 12:00 AM ANALYTICS DIRECTOR from Last 3 Months or Most Recently Relevant to Health Maintenance Results * HM COLONOSCOPY (04/22/2022 12:00 AM CDT) 04/22/2022 us Not On File Provider PROCEDURE/MINOR SURGICAL OR DERABLES Final Result SCAN * MAMMOGRAM BILATERAL MISCELLANEOUS (10/26/2021 12:00 AM ANALYTICS DIRECTOR) 10/26/2021 us Not On File Provider IMG MAMMO ORDERABLES Final Result Performing Organization Address City/[facility]/ZIP Co de Phone Number SCAN from Last 3 Months or Most Recently Relevant to Health Maintenance [place] [address] Care Teams Personal Attendant Relationship Specialty Start Date End Date Torito Gonzalez MD PCP - General Internal Medicine 02/01/20 Guille Collier MD [address] [place] [address] Consulting Physician Pulmonary Disease 12/06/22
--- OUTSIDE RECORDS SUMMARY | 2025-08-05 21:28 | XMS_ITS | Clinical Summary ---
Author Organization [facility] Address [address] [place] [address] Care Team Providers Care Pan Devulcanizer Name Role Phone Torito Gonzalez MD Primary Care Provider [phone] Sol Lincoln MD Unavailable [phone] Vitaly Esquivel MD Unavailable [phone] Allergies Active Allergy Reactions Criticality Noted Date Comments Amoxicillin Stomach upset Low 04/16/2022 Doxycycline Other (See comments) Low 05/17/2023 Severe Back Pain Latex Rash Medium 04/16/2024 Levofloxacin Palpitations Low 09/16/2022 Medications famotidine (PEPCID) 20 mg tablet Take 1 [...] for rhinitis 1 each 01/18/20 23 Active denosumab (PROLIA) 60 mg/mL syringe Inject 1 mL (60 mg total) under the skin once for 1 dose 1 mL 07/19/20 24 Active Additional Information Patient taking differently:60 mg subcutaneous Once,Last dose 6 months ago, Reported on 07/09/2025 budesonide (PULMICORT) 0.5 mg/2 mL nebulizer solution Take 2 mL (0.5 mg total) by nebulization daily 07/20/20 24 Active formoterol (PERFOROMIST) 20 mcg/2 mL nebulizer solution Take 2 mL (20 mcg total) by nebulization daily 07/04/20 24 Active amLODIPine (NORVASC) 5 mg tablet Take 1 tablet (5 mg total) by mouth daily 90 tablet 3 06/10/20 25 Active EPINEPHrine 0.3 mg/0.3 mL auto-injection syringeIndication s:Anaphylaxis Inject 0.3 mL (0.3 mg total) into the muscle as instructed as needed for anaphylaxis Call 911 after use. 2 each 1 07/02/20 25 026 Active mometasone furoate, bulk, 100 % powder Apply 1.2 mg intranasally 2 (two) times a day Mix 1.2 mg into 240 mL nasal rinse bottle and rinse each nostril with 1/2 bottle twice a day 0.216 g 3 07/08/20 25 026 Active omalizumab (XOLAIR) 150 mg injection Inject 1.2 mL (150 mg total) under the skin once Has not started Active dextromethorphan- guaiFENesin (ROBITUSSIN-DM) 2-20 mg/mL liquid Take 10 mL by mouth 4 (four) times a day as needed for cough 118 mL 07/11/20 25 Active aspirin 81 mg tablet take 1 tablet by oral route every day 0 0 05/10/20 16 025 Discontinu ed(Stop Taking at Discharge) meloxicam (MOBIC) 7.5 mg tablet Take 1 tablet (7.5 mg total) by mouth daily as needed 03/11/20 25 025 Discontinu ed(Error) budesonide (PULMICORT) 0.5 mg/2 mL nebulizer solution Mix 1 capsule/ampule in 250 mL of saline irrigations (NeilMed Sinus Rinse Bottle) and irrigate each nostril with half of the bottle twice daily. Total of 2ampules used for irrigation daily 200 mL 3 06/17/20 25 025 Discontinu ed(Error) mepolizumab (NUCALA) 100 mg/mL auto-injector Inject 1 mL (100 mg total) under the skin every 28 (twenty-eight) days 1 mL 11 06/21/20 25 025 Discontinu ed(Error) predniSONE (DELTASONE) 10 mg tablet Take 4 tablets (40 mg) by mouth daily for 5 days 15 tablet 07/08/20 25 025 Active Problems Problem Noted Date Diagnosed Date COPD exacerbation 07/08/2025 Hypertrophy of both inferior nasal turbinates Chronic sinusitis 04/16/2024 Polyp, nasal 04/16/2024 Obstructive sleep apnea (adult) (pediatric) 12/2023 NSTEMI (non-ST elevated myocardial infarction) 0 01/15/2023 Age-related osteoporosis wit hout current pathological fracture 12/22/2022 Hx of colonic polyps 04/15/2022 Overview (04/15/2022): Added automatically from request for surgery [id number] Prinzmetal's angina 04/17/2021 Assessment & Plan (06/10/2025 9:09 AM CDT): No signs or symptoms of recurrent chest pain. Continue amlodipine and aspirin. Assessment & Plan (08/23/2023 10:01 AM CDT): [...] (12/18/2018): Added automatically from request for surgery [id number] Keratosis, senilis 01/10/2017 Benign neoplasm of soft tissues 01/10/2017 Hypercholesterolemia 04/13/2014 Overview (03/03/2017): Hypercholesterolemia Assessment & Plan (08/23/2023 10:01 AM CDT): Contine Atorvastatin. Assessment & Plan (04/16/2022 9:18 AM CDT): LDL cholesterol is 112. Continue dietary modifications. Assessment & Plan (04/17/2021 9:20 AM CDT): Managed by Dr. Gonzalez. Hypertension Assessment & Plan (06/10/2025 9:09 AM CDT): Well controlled with amlodipine. No changes. Assessment & Plan (06/04/2024 2:20 PM CDT): [...] Encounters Date Type Department Care Team Description 07/26/2025 8:50 AM CDT Clinical Support [facility] Allergy and Immunology [address] [facility] [address] [place] [phone] Polyp, nasal (Primary Dx) 07/26/2025 Telephone [place] [employer] [address] [facility] [address] [place] [address] Leticia Montes De Oca RN DEXA/Prolia 07/24/2025 12:07 PM CDT - 07/24/2025 11:59 PM CDT Hospital Encounter [facility] [address] [place] [address] Osteoporosis without current pathological fracture, unspecified osteoporosis type Discharge Disposition: Discharge to home or self care 07/19/2025 [facility] Post Discharge Follow up phone call [facility] Non-Oncology Infusion [address] [place] [address] Cheryl Vallejo, ERICK 07/17/2025 [facility] Post Discharge Follow up phone call [facility] Non-Oncology Infusion [address] [place] [address] Cheryl Vallejo, ERICK 07/08/2025 3:49 PM CDT - 07/11/2025 3:24 PM CDT Hospital Encounter [address] [address] Zion Dowling III, MD Onaghise, Jude, MD Rudomiotov, Olga, MD COPD exacerbation (HCC) (Primary Dx) Discharge Disposition: Discharge to home or self care 07/08/2025 2:20 PM CDT Office Visit [facility]) - [facility] Medicine ENT [address] [facility] Medical Office Building [address] [place] [address] Lydia Rojas MD COPD exacerbation (HCC) (Primary Dx); Polyp of nasal cavity; Chronic pansinusitis 07/02/2025 Telephone [facility] Medicine Allergy and Immunology [address] [facility] [address] [place] [id number] Jyoti Dorantes RN [employer] New Start 06/17/2025 Orders Only [facility] - [facility] Medicine ENT [id number] [place] [address] Medical Office Building [address] [place] [phone] Lydia Rojas MD 06/14/2025 Results Follow-Up [facility] Medicine Allergy and Immunology [address] [facility] [address] [place] [address] Giana Joshi MD Differential, auto 06/10/2025 1:30 PM CDT Lab [facility] Medicine Infectious Diseases [address] [facility] [address] [place] [address] 06/10/2025 1:26 PM CDT - 06/10/2025 11:59 PM CDT Hospital Encounter [address] [address] Nasal polyps; Chronic sinusitis, unspecified location Discharge Disposition: Discharge to home or self care 06/10/2025 1:00 PM CDT Office Visit [facility] Allergy and Immunology [address] [facility] [address] [place] [address] Giana Joshi MD Nasal polyps (Primary Dx); Chronic sinusitis, unspecified location; Persistent asthma without complication, unspecified asthma severity; Panlobular emphysema (HCC) 06/10/2025 9:15 AM CDT Office Visit [facility] [address] [place] [address] [address] [place] [address] Jacob Espitia MD Primary hypertension (Primary Dx); Prinzmetal's angina 06/05/[address] [place] [address] Leticia Montes De Oca RN DEXA Scan 05/30/2025 11:40 AM CDT Office Visit [facility]) - [facility] Medicine ENT [id number] [place] [address] Medical Office Building [address] [place] [address] Lydia Rojas MD Nasal polyps (Primary Dx); Seasonal allergic rhinitis, unspecified trigger; Chronic pansinusitis; History of sinus surgery; Intermittent asthma without complication, unspecified asthma severity from Last 3 Months Surgical History Surgery [...] oz Female Dysphagia GERD (gastroesophageal reflux disease) 2014 Hypertension 2014 Influenza A Restless leg syndrome Arthritis Cataract 2017 Sleep apnea 2020 Asthma 2020 Lung disease COPD (chronic obstructive pu lmonary disease) 2020 Chronic sinusitis, unspecified location Hypertrophy of both [...] 40 Q uit: 11/28/2009 Smokeless Tobacco: Never Tobacco Cessation:Counseling Given: Not [...] any clubs o r organizations such as orthodox groups, unions, fraternal or athletic groups, or [...] staff should administer the PHQ-9) 0 09/01/2021 PRAPARE - Transportation Answer Date Re corded [...] place to sleep or slept in a fci (including now)? No 01/18/2023 Social Connection and Isolation Panel Answer Date Recorded In a typical week, how many times do you talk on the phone with family, friends, or neighbors? More than three times a week 07/09/2025 How often do you get togethe r with friends or relatives? More than three times a week 07/09/2025 How often do you attend chur ch or gnosticism services? More than 4 times per year 07/09/2025 Do you belong to any clubs o r organizations such as orthodox groups, unions, fraternal or athletic groups, or school groups? No 07/09/2025 How often do you attend meet ings of the clubs or organizations you belong to? Never 07/09/2025 Are you , , di vorced, , never , or living with a partner? 07/09/2025 Overall Financial Resource Strain (CARDIA) Answe r Date Recorded How hard is it for you to pa y for the very basics like food, housing, medical care, and heating? Not hard at all 07/09/2025 Hunger Vital Sign Answer Date Recorded Within the past 12 months, y ou worried that your food would run out before you got the money to buy more. Never true 07/09/20 25 Within the past 12 months, t he food you bought just didn't last and you didn't have money to get more. Never true 07/09/2025 PRAPARE - Transportation Answer Date Re corded In the past 12 months, has l ack of transportation kept you from medical appointments or from getting medications? No 06/28 In the past 12 months, has l ack of transportation kept you from meetings, work, or from getting things needed for daily living? No 07/09/2025 Housing Stability Vital Sign Answer Lino e Recorded In the last 12 months, was t here a time when you were not able to pay the mortgage or rent on time? No 07/09/2025 In the past 12 months, how m any times have you moved where you were living? 0 07/09/2025 At any time in the past 12 [facility], were you homeless or living in a fci (including now)? No 07/09/2025 [facility] Utilities Answer Date Recorded In the past 12 months has e [employer], gas, oil, or water company threatened to shut off services in your home? No 07/09/2025 Personal Safety Answer Date Recorded Have you ever been in or are you currently in a harmful physical or emotional relationship or is someone making you feel afraid or unsafe? 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 Gender Identity Not on file Sexual Orientation [...] Sign Reading Time Taken Comments Blood Pressure 116/58 07/11/2025 12:07 PM CDT Pulse 76 07/11/2025 12:07 PM CDT Temperature 36.6 C (97.9 F) 07/11/2025 12:07 PM CDT Respiratory Rate 18 07/11/2025 12:07 PM CDT Oxygen Saturation 91% 07/11/2025 12:07 PM CDT Inhaled Oxygen Concentration - - Weight 66 kg (145 lb 8.1 oz) 07/10/2025 5:29 AM CDT Height 165.1 cm (5' 5) 07/10/2025 5:29 AM CDT Body Mass Index 24.21 07/10/2025 5:29 AM CDT Plan of Treatment Health Maintenance Due Date Last Done Comments DTaP/Tdap/Td Vaccine (1 - Tdap) 1964 Hepatitis B Screening 1971 Pneumococcal vaccine 65+ (1 of 2 - PCV) 1972 Zoster Vaccine (1 of 2) 2003 Well Visit 65+ 05/28/2020 05/28/2019, 04/29, 05/16/2017 Covid-19 Vaccine (3 - Pfizer risk series) 03/24/2021 02/24/2021, 02/03/2021 Depression Screening 09/01/2022 09/01/2021, 08/13/2020, 05/28/2019, Additional history exists Influenza Vaccine (#1) 2025 , 09/14/2022, 09/11/2020 Breast Cancer Screening-Mammogram 12/26/2025 12/26/2024, 11/08/2022, 10/26/2021, Additional history exists Fall Risk Assessment 07/11/2026 07/11/2025 Osteoporosis Screening-Bone Density Scan 07/24/2027 07/24/2025, 11/08/2022, 10/20/2020, Additional history exists Colon Cancer Screening-Colonoscopy 04/22/2032 [...] SITES Schedule Routine, Read Routine (OP Routine) 07/24/2025 12:17 PM CDT Osteoporosis without current pathological fracture, unspecified osteoporosis type HOME O2 EVAL (DESATURATION SCREEN) Routine 07/11/2025 9:43 AM CDT EGFR Routine 07/11/2025 4:00 AM CDT BASIC METABOLIC PANEL Routine 07/11/2025 4:00 AM CDT CBC WITHOUT DIFFERENTIAL Routine 07/11/2025 4:00 AM CDT EGFR Routine 07/10/2025 4:39 AM CDT BASIC METABOLIC PANEL Routine 07/10/2025 4:39 AM CDT CBC WITHOUT DIFFERENTIAL Routine 07/10/2025 4:[address] CHEST PE W CONTRAST IP Routine 12:10 PM CDT EGFR Routine 07/09/2025 4:34 AM CDT BASIC METABOLIC PANEL Routine 07/09/2025 4:34 AM CDT CBC WITHOUT DIFFERENTIAL Routine 07/09/2025 4:34 AM CDT TROPONIN T HIGH-SENSITIVITY 6-HOUR Timed 07/08/2025 11:30 PM CDT BLOOD GAS, VENOUS Routine 07/08/2025 7:4 0 PM CDT D-DIMER, QUANTITATIVE STAT 07/08/2025 7:40 PM CDT TROPONIN T HIGH-SENSITIVITY 2-HOUR Timed 07/08/2025 7:40 PM CDT EGFR STAT 07/08/2025 4:51 PM CDT DIFFERENTIAL AUTO STAT 07/08/2025 4:5 1 PM CDT TROPONIN T HIGH-SENSITIVITY SERIES (BASELINE, 2HR, 4HR, 6HR) STAT 07/08/2025 4:51 PM CDT CBC WITH AUTO DIFFERENTIAL STAT 07/08/2025 4:51 PM CDT COMPREHENSIVE METABOLIC PANEL STAT 07/08/2025 4:51 PM CDT XR CHEST PA LATERAL 2 VIEWS ED 07/08/2025 3:30 PM CDT RESPIRATORY PATHOGEN PANEL STAT 07/08/2025 3:14 PM CDT ECG 12-LEAD STAT 07/08/2025 3:13 PM CDT DIFFERENTIAL AUTO Routine 06/10/2025 1:2 6 PM CDT Nasal polyps Chronic sinusitis, unspecified location IGE Routine 06/10/2025 1:26 PM CDT Nasal polyps Chronic sinusitis, unspecified location ALLERGEN BIRCH COMMON SILVER (TREE) IGE Routine 06/10/2025 1:26 PM CDT Nasal polyps Chronic sinusitis, unspecified location ALLERGEN ELM (TREE) IGE Routine 06/10/2025 1:26 PM CDT Nasal polyps Chronic sinusitis, unspecified location ALLERGEN MAPLE/BOX ELDER (TREE) IGE Routine 06/10/2025 1:26 PM CDT Nasal polyps Chronic sinusitis, unspecified location ALLERGEN MOUNTAIN JUNIPER (TREE) IGE Routine 06/10/2025 1:26 PM CDT Nasal polyps Chronic sinusitis, unspecified location ALLERGEN MULBERRY (TREE) IGE Routine 06/10/2025 1:26 PM CDT Nasal polyps Chronic sinusitis, unspecified location ALLERGEN OAK RED (TREE) IGE Routine 06/10/2025 1:26 PM CDT Nasal polyps Chronic sinusitis, unspecified location ALLERGEN SYCAMORE POLISH (TREE) IGE Routine 06/10/2025 1:26 PM CDT Nasal polyps Chronic sinusitis, unspecified location ALLERGEN WALNUT (TREE) IGE Routine 06/10/2025 1:26 PM CDT Nasal polyps Chronic sinusitis, unspecified location ALLERGEN BERMUDA GRASS (GRASS) IGE Routine 06/10/2025 1:26 PM CDT Nasal polyps Chronic sinusitis, unspecified location ALLERGEN ALON GRASS (GRASS) IGE Routine 06/10/2025 1:26 PM CDT Nasal polyps Chronic sinusitis, unspecified location ALLERGEN ROBERT GRASS (GRASS) IGE Routine 06/10/2025 1:26 PM CDT Nasal polyps Chronic sinusitis, unspecified location ALLERGEN PLANTAIN WELSH (WEED) IGE Routine 06/10/2025 1:26 PM CDT Nasal polyps Chronic sinusitis, unspecified location ALLERGEN SEYMOUR'S QUARTER (WEED) IGE Routine 06/10/2025 1:26 PM CDT Nasal polyps Chronic sinusitis, unspecified location ALLERGEN RAGWEED SHORT/COMMON (WEED) IGE Routine 06/10/2025 1:26 PM CDT Nasal polyps Chronic sinusitis, unspecified location ALLERGEN NETTLE (WEED) IGE Routine 06/10/2025 1:26 PM CDT Nasal polyps Chronic sinusitis, unspecified location ALLERGEN ALTERNARIA TENUIS (MOLD) IGE Routine 06/10/2025 1:26 PM CDT Nasal polyps Chronic sinusitis, unspecified location ALLERGEN ASPERGILLUS FUMIGATUS (MOLD) IGE Routine 06/10/2025 1:26 PM CDT Nasal polyps Chronic sinusitis, unspecified location ALLERGEN CLADOSPORIUM HERBARUM (MOLD) IGE Routine 06/10/2025 1:26 PM CDT Nasal polyps Chronic sinusitis, unspecified location ALLERGEN PENICILLIUM CHRYSOGENUM (MOLD) IGE Routine 06/10/2025 1:26 PM CDT Nasal polyps Chronic sinusitis, unspecified location ALLERGEN EPITHELIA/DANDER CAT (ANIMAL) IGE Routine 06/10/2025 1:26 PM CDT Nasal polyps Chronic sinusitis, unspecified location ALLERGEN COCKROACH POLISH (INSECT) IGE Routine 06/10/2025 1:26 PM CDT Nasal polyps Chronic sinusitis, unspecified location ALLERGEN DERMATOPHAGOIDES FARINAE (INSECT) IGE Routine 06/10/2025 1:26 PM CDT Nasal polyps Chronic sinusitis, unspecified location ALLERGEN DERMATOPHAGOIDES PTERONYSSINUS (INSECT) IGE Routine 06/10/2025 1:26 PM CDT Nasal polyps Chronic sinusitis, unspecified location ALLERGEN EPITHELIA/DANDER DOG (ANIMAL) IGE Routine 06/10/2025 1:26 PM CDT Nasal polyps Chronic sinusitis, unspecified location ALLERGEN MOUSE MIX (ANIMAL) IGE Routine 06/10/2025 1:26 PM CDT Nasal polyps Chronic sinusitis, unspecified location ALLERGEN RAT MIX (ANIMAL) IGE Routine 06/10/2025 1:26 PM CDT Nasal polyps Chronic sinusitis, unspecified location CBC WITH AUTO DIFFERENTIAL Routine 06/10/2025 1:26 PM CDT Nasal polyps Chronic sinusitis, unspecified location ALLERGEN PIGWEED ROUGH (WEED) IGE Routine 06/10/2025 1:26 PM CDT Nasal polyps Chronic sinusitis, unspecified location SCREENING MAMMOGRAM BILATERAL W HECTOR Schedule Routine, Read Routine (OP Routine) 12/26/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 for screening mammogram COLONOSCOPY 04/22/2022 7:32 AM CDT HEPATITIS C ANTIBODY Routine 02/05/2019 7:21 AM CDT from Last 3 Months or Most Recently Relevant to Health Maintenance Results * Dexa Axial Skeleton Bone Density 1 Or 2 Site (07/24/2025 12:17 PM CDT) Anatomical Region Laterality Modality Body N/A Other 07/24/2025 10:1 6 PM CDT Narrative 07/24/2025 10:17 PM CDT EXAM DESCRIPTION: DEXA AXIAL SKELETON BONE DENSITY 1 OR MORE SITES REASON FOR STUDY: 70 y/o year old F with given history of: 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 CLINICAL INFORMATION: Current height: 65 inches Maximum height: 66.5 inches Weight: 145 pounds Risk factors: Postmenopausal COMPARISON: 11/08/2022 FINDINGS: AP LUMBAR SPINE L1-L4: Total BMD is 0.797 g/cm2 T-score is -2.3 This is increased in comparison to prior exam which is statistically significant. LEFT HIP: Total BMD is 0.750 g/cm2 T-score is -1.6 This is increased in comparison to prior exam which is statistically significant. Femoral neck BMD is 0.700 g/cm2 T-score is -1.3 FRAX: FRAX tool cannot be utilized due to current treatment for osteoporosis. IMPRESSION: 1. Low Bone Mass. REFERENCE: Bone mineral density: T-Score: Normal (T-score above or = -1.0) Low bone mass (T-score between -1.0 and -2.5) replaces the previously used term osteopenia Osteoporosis (T-score = or below -2.5) Z-Score: Within the expected range for age (Z-score above -2.0) Below the expected range for age (Z-score is -2.0 or below) Please see below follow up recommendations. Medical evaluation for secondary causes of low [...] greater than 3% should be considered for pharmacological treatment for the prevention of osteoporosis. For further information, including treatment recommendations, please refer to the 2019 ISCD Official Positions (http://www.iscd.org) and the NOF's Clinician's Guide to Prevention and Treatment of Osteoporosis (http://www.nof.org/professionals/clinical-guidelines) THIS IS AN ELECTRONICALLY VERIFIED FINAL REPORT 07/24/2025 10:17 PM - Electronically signed by Josh Avalos M.D. 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 CLINICAL INFORMATION: Current height: 65 inches Maximum height: 66.5 inches Weight: 145 pounds Risk factors: Postmenopausal COMPARISON: 11/08/2022 FINDINGS: AP LUMBAR SPINE L1-L4: Total BMD is 0.797 g/cm2 T-score is -2.3 This is increased in comparison to prior exam which is statistically significant. LEFT HIP: Total BMD is 0.750 g/cm2 T-score is -1.6 This is increased in comparison to prior exam which is statistically significant. Femoral neck BMD is 0.700 g/cm2 T-score is -1.3 FRAX: FRAX tool cannot be utilized due to current treatment for osteoporosis. IMPRESSION: 1. Low Bone Mass. REFERENCE: Bone mineral density: T-Score: Normal (T-score above or = -1.0) Low bone mass (T-score between -1.0 and -2.5) replaces thepreviously used term osteopenia Osteoporosis (T-score = or below -2.5) Z-Score: Within the expected range for age (Z-score above -2.0) Below the expected range for age (Z-score is -2.0 or below) Please see below follow up recommendations. Medical evaluation forsecondary causes of low bone mineral density may [...] or greaterthan 3% should be considered for pharmacological treatment for the preventionof osteoporosis. For further information, including treatment recommendations, please referto the 2019 ISCD Official Positions (http://www.iscd.org) and the NOF's Clinician's Guide to Prevention and Treatment of Osteoporosis (http://www.nof.org/professionals/clinical-guidelines) THIS IS AN ELECTRONICALLY VERIFIED FINAL REPORT 07/24/2025 10:17 PM - Electronically signed by Josh Avalos M.D. MF: ANTOINE Report ID: [id number] Reading Location: [place] [address] Alhaji Payan MD IMG DXA PROCEDURES Final R esult * eGFR (07/11/2025 4:00 AM CDT) eGFR >90 >=60 mL/min/1. 73 m2 Comment: Interpretive Data Reference Interval Normal >/= 90 mL/min/1.73m2 Mildly decreased* 60 - 89 mL/min/1.73m2 Mildly to moderately decreased 45 - 59 mL/min/1.73m2 Moderately to severely decreased 30 - 44 mL/min/1.73m2 Severely decreased 15 - 29 mL/min/1.73m2 Kidney Failure < 15 mL/min/1.73m2 *Relative to young adult level Estimated glomerular [...] interpretive data was last reviewed 2021. Blood 07/11/2025 4:00 AM CDT 07/11/2025 5:42 AM CDT Brit Mccormack MD LAB BLOOD ORDERABLES Final Re sult Performing Organization Address [facility]/ZIP Co de Phone Number [facility] [address] Department of [employer] [place] [address] * (ABNORMAL) CBC without differential (07/11/2025 4:00 AM CDT) WBC 12.33(H) 3.80 - 9.90 K/cumm Hgb 13.2 11.9 - 15.5 g/dL [facility] Hct 41.1 35.6 - 45.5 % [facility] Plt 249 150 - 400 K/cumm [facility] MPV 11.5 9.1 - 12.3 fL [facility] RBC 4.47 3.90 - 5.20 M/cumm [facility] MCV 91.9 81.3 - 96.4 fL [facility] MCH 29.5 27.1 - 33.3 pg [facility] MCHC 32.1(L) 32.3 - 35.7 g/dL [facility] RDW CV 14.9 11.1 - 14.9 % [facility] RDW SD 50.5(H) 35.7 - 48.1 fL [facility] NRBC abs 0.00 0.00 - 0.01 K/cumm [facility] Blood 07/11/2025 4:00 AM CDT 07/11/2025 5:40 AM CDT Brit Mccormack MD LAB BLOOD ORDERABLES Final Re sult Performing Organization Address City/[facility]/ZIP Co de Phone Number [place] [place] [address] Department [employer] [place] [address] * (ABNORMAL) Basic metabolic panel (07/11/2025 4:00 AM CDT) Sodium 139 135 - 145 mmol/L Potassium, pl 4.0 3.3 - 4.9 mmol/L [facility] Chloride 105 97 - 110 mmol/L [facility] CO2 20(L) 22 - 32 mmol/L [facility] Anion gap 14 2 - 15 mmol/L [facility] BUN 18 6 - 25 mg/dL [facility] Creatinine 0.65 0.60 - 1.10 mg/dL [facility] Glucose 127 70 - 199 mg/dL [facility] Comment: Interpretive Data Fasting glucose >/= 126 mg/dl is diagnostic for diabetes. Fasting is defined as no caloric intake [...] interpretive data was last revised 2022. Calcium 9.4 8.5 - 10.3 mg/dL [facility] Blood 07/11/2025 4:00 AM CDT 07/11/2025 5:42 AM CDT us Brit Mccormack MD LAB BLOOD ORDERABLES Final Re sult [facility] [address] Department [place] [address] * eGFR (07/10/2025 4:39 AM CDT) eGFR 78 >=60 mL/min/1. 73 m2 Comment: Interpretive Data Reference Interval Normal >/= 90 mL/min/1.73m2 Mildly decreased* 60 - 89 mL/min/1.73m2 Mildly to moderately decreased 45 - 59 mL/min/1.73m2 Moderately to severely decreased 30 - 44 mL/min/1.73m2 Severely decreased 15 - 29 mL/min/1.73m2 Kidney Failure < 15 mL/min/1.73m2 *Relative to young adult level Estimated glomerular filtration rate is determined by the 2020 CKD-EPI equation recommended by the National Kidney Foundation (A Unifying Approach to GFR Estimation: Recommendations of the NKF-ASK Task Force on Reassessing the Inclusion of Race in Diagnosing Kidney Disease, MANISHASN 2020). The CKD-EPI equation should not be used for patients with unstable renal function and has not been validated in children and those over 70. Current interpretive data was last reviewed 2021. Blood 07/10/2025 4:39 AM CDT 07/10/2025 4:49 AM CDT Brit Mccormack MD LAB BLOOD ORDERABLES Final Re sult Performing Organization Address [facility] Co de Phone Number [facility] [id number] [place] [address] * (ABNORMAL) CBC without differential (07/10/2025 4:39 AM CDT) WBC 17.92(H) 3.80 - 9.90 K/cumm Hgb 13.6 11.9 - 15.5 g/dL [facility] Hct 41.1 35.6 - 45.5 % [facility] Plt 253 150 - 400 K/cumm [facility] MPV 10.5 9.1 - 12.3 fL [facility] CH RBC 4.58 3.90 - 5.20 M/cumm [facility] CH MCV 89.7 81.3 - 96.4 fL [facility] CH MCH 29.7 27.1 - 33.3 pg [facility] CH MCHC 33.1 32.3 - 35.7 g/dL [facility] RDW CV 14.6 11.1 - 14.9 % [facility] CH RDW SD 47.8 35.7 - 48.1 fL [facility] NRBC abs 0.00 0.00 - 0.01 K/cumm [facility] Blood 07/10/2025 4:39 AM CDT 07/10/2025 4:48 AM CDT Brit Mccormack MD LAB BLOOD ORDERABLES Final Re sult Performing Organization Address [facility] Co de Phone Number [facility] [place] [phone] [place] [address] * (ABNORMAL) Basic metabolic panel (07/10/2025 4:39 AM CDT) Sodium 138 135 - 145 mmol/L Potassium, pl 3.9 3.3 - 4.9 mmol/L [facility] Chloride 104 97 - 110 mmol/L [facility] CO2 20(L) 22 - 32 mmol/L [facility] Anion gap 14 2 - 15 mmol/L [facility] BUN 23 6 - 25 mg/dL [facility] Creatinine 0.80 0.60 - 1.10 mg/dL [facility] Glucose 120 70 - 199 mg/dL [facility] Comment: Interpretive Data Fasting glucose >/= 126 mg/dl is diagnostic for diabetes. Fasting is defined as no caloric intake [...] interpretive data was last revised 2022. Calcium 9.5 8.5 - 10.3 mg/dL [facility] Blood 07/10/2025 4:39 AM CDT 07/10/2025 4:49 AM CDT us Brit Mccormack MD LAB BLOOD ORDERABLES Final Re sult [facility] [address] Department [place] [address] * CT Chest PE (CTA) W Contrast (07/09/2025 12:10 PM CDT) Anatomical Region Laterality Modality Body N/A Computed Tomogra phy 07/09/2025 12:5 5 PM CDT Impressions 07/09/2025 12:55 PM CDT No pulmonary embolus or acute findings. Electronically signed by: Jaciel Richardson II, D.O. Narrative 07/09/2025 12:55 PM CDT EXAMINATION: CT CHEST PE (CTA) W CONTRAST HISTORY: Suspected PE TECHNIQUE: Computed tomographic images were acquired using a chest angiographic protocol optimized for pulmonary embolism. Contrast enhanced transaxial images were obtained following the intravenous administration of 67 ml of nonionic contrast. Multiplanar reformatted images and three-dimensional images were obtained on the 3-D workstation and sent to the PACS archival system. COMPARISON: 01/16/2023. Findings: No pulmonary embolus. Mild atherosclerotic calcifications in the aorta and branch vessels. Thyroid is heterogeneous. No mediastinal or hilar lymphadenopathy. Upper abdominal structures are unremarkable. No acute osseous abnormality. No suspicious lytic or sclerotic lesions. There is accentuation of the thoracic kyphosis. No pleural effusion or pneumothorax. No pulmonary nodules. Procedure Note Jaciel Richardson II, DO - 07/09/2025 EXAMINATION: CT CHEST PE (CTA) W CONTRAST HISTORY: Suspected PE TECHNIQUE: Computed tomographic images were acquired using a chest angiographic protocol optimized for pulmonary embolism. Contrast enhanced transaxial images were obtained following the intravenous administration of 67 ml of nonionic contrast. Multiplanar reformatted images and three-dimensional images were obtained on the 3-D workstation and sent to the PACS archival system. COMPARISON: 01/16/2023. Findings: No pulmonary embolus. Mild atherosclerotic calcifications in the aorta and branch vessels. Thyroid is heterogeneous. No mediastinal or hilar lymphadenopathy. Upper abdominal structures are unremarkable. No acute osseous abnormality. No suspicious lytic or sclerotic lesions. There is accentuation of the thoracic kyphosis. No pleural effusion or pneumothorax. No pulmonary nodules. IMPRESSION: No pulmonary embolus or acute findings. Electronically signed by: Jaciel Richardson II, D.OBarbara Jose Lucero NP IMKellee CT PROCEDURES Final R esult * eGFR (07/09/2025 4:34 AM CDT) eGFR >90 >=60 mL/min/1. 73 m2 Comment: Interpretive Data Reference Interval Normal >/= 90 mL/min/1.73m2 Mildly decreased* 60 - 89 mL/min/1.73m2 Mildly to moderately decreased 45 - 59 mL/min/1.73m2 Moderately to severely decreased 30 - 44 mL/min/1.73m2 Severely decreased 15 - 29 mL/min/1.73m2 Kidney Failure < 15 mL/min/1.73m2 *Relative to young adult level Estimated glomerular filtration rate is determined by the 2020 CKD-EPI equation recommended by the National Kidney Foundation (A Unifying Approach to GFR Estimation: Recommendations of the NKF-ASK Task Force on Reassessing the Inclusion of Race in Diagnosing Kidney Disease, JASN 202). The CKD-EPI equation should not be used for patients with unstable renal function and has not been validated in children and those over 70. Current interpretive data was last reviewed 2021. Blood 07/09/2025 4:34 AM CDT 07/09/2025 4:53 AM CDT us Brit Mccormack MD LAB BLOOD ORDERABLES Final Re sult [facility] [address] Department [place] [address] * (ABNORMAL) CBC without differential (07/09/2025 4:34 AM CDT) WBC 5.33 3.80 - 9.90 K/cumm Hgb 14.3 11.9 - 15.5 g/dL [facility] Hct 43.0 35.6 - 45.5 % [facility] Plt 258 150 - 400 K/cumm [facility] MPV 10.8 9.1 - 12.3 fL [facility] RBC 4.76 3.90 - 5.20 M/cumm [facility] MCV 90.3 81.3 - 96.4 fL [facility] MCH 30.0 27.1 - 33.3 pg [facility] MCHC 33.3 32.3 - 35.7 g/dL [facility] RDW CV 14.6 11.1 - 14.9 % [facility] CH RDW SD 48.9(H) 35.7 - 48.1 fL [facility] NRBC abs 0.00 0.00 - 0.01 K/cumm [facility] Blood 07/09/2025 4:34 AM CDT 07/09/2025 4:53 AM CDT Brit Mccormack MD LAB BLOOD ORDERABLES Final Re sult [facility] [address] Department [place] [address] * Basic metabolic panel (07/09/2025 4:34 AM CDT) Sodium 139 135 - 145 mmol/L Potassium, pl 4.4 3.3 - 4.9 mmol/L [facility] Chloride 106 97 - 110 mmol/L [facility] CO2 22 22 - 32 mmol/L [facility] Anion gap 11 2 - 15 mmol/L [facility] BUN 16 6 - 25 mg/dL [facility] Creatinine 0.70 0.60 - 1.10 mg/dL [facility] Glucose 145 70 - 199 mg/dL [facility] Comment: Interpretive Data Fasting glucose >/= 126 mg/dl is diagnostic for diabetes. Fasting is defined as no caloric intake [...] interpretive data was last revised 2022. Calcium 9.6 8.5 - 10.3 mg/dL [facility] Blood 07/09/2025 4:34 AM CDT 07/09/2025 4:53 AM CDT Brit Mccormack MD LAB BLOOD ORDERABLES Final Re sult [facility] [address] Department [place] [address] * Troponin T high-sensitivity 6-hour (07/08/2025 11:30 PM CDT) Trop T hs 7 <=14 ng/L Comment: Interpretive Data For further hscTnT resources including the diagnostic algorithm and an aid in interpretation, copy and paste this link: [email or web address]/[email or web address] Current Interpretive Data last revised 2020. Trop T hs delta 0 ng/L [facility] Trop T hs interp Insignificant [facility] Blood 07/08/2025 11:3 0 PM CDT 07/08/2025 11:33 PM CDT Chloe Humphries MD LAB BLOOD ORDERABLES Final Result Performing Organization Address [facility] Co de Phone Number [place] [place] [address] [place] [address] * Troponin T high-sensitivity 2-hour (07/08/2025 7:40 PM CDT) Trop T hs 8 <=14 ng/L Comment: Interpretive Data For further hscTnT resources including the diagnostic algorithm and an aid in interpretation, copy and paste this link: [email or web address] Current Interpretive Data last revised 2020. Trop T hs delta 1 ng/L [facility] CH Trop T hs interp Insignificant [facility] Blood 07/08/2025 7:40 PM CDT 07/08/2025 8:03 PM CDT Chloe Humphries MD LAB BLOOD ORDERABLES Final Result Performing Organization Address [facility] Co de Phone Number [place] [place] [address] [place] [address] * (ABNORMAL) D-dimer, quantitative (07/08/2025 7:40 PM CDT) D-Dimer 643(H) <=499 ng/mL FEU Comment: Interpretive data FDA approved the D-dimer, in conjunction with a low or moderate pretest probability score, to exclude venous thromboembolic events (VTE) (PE and DVT) in outpatients when the D-dimer result is < 500 ng/ml FEU. Evidence supports using an age-adjusted D-dimer cut-off for outpatients older than 50 (age x 10) to improve specificity without sacrificing sensitivity. Example: age 68, VTE cut-off 680 ng/ml FEU. References; Schouten HT et al. Brit Med J. 2013;346:f2492. Eric et al. Annals Int Med. 2015;163:701-11. Current interpretive data was last revised on 2019. Blood 07/08/2025 7:40 PM CDT 07/08/2025 8:04 PM CDT Zion Dowling III, MD LAB BLOOD ORDER BHUMIKA Final Result Performing Organization Address [facility] de Phone Number [facility] [place] [phone] [place] [address] * Blood gas, venous (07/08/2025 7:40 PM CDT) pH, Venous 7.41 7.32 - 7.43 PCO2, Venous 40 40 - 50 mmHg [facility] PO2, Venous 34 mmHg [facility] Comment: Interpretive Data No Reference Range Established Current Interpretive Data was last revised on 2018. HCO3 Venous, Calculated 24 20 - 30 mmol/L [facility] BE, venous 1 mmol/L [facility] Comment: Interpretive Data No Reference Range Established Current Interpretive Data was last revised on 2018. Blood 07/08/2025 7:40 PM CDT 07/08/2025 8:03 PM CDT Zion Dowling III, MD LAB BLOOD ORDER BHUMIKA Final Result Performing Organization Address [facility] Co de Phone Number [facility] MISAEL [address] [place] [address] * Troponin T high-sensitivity series (baseline, 2hr, 4hr, 6hr) (07/08/2025 4:51 PM CDT) Trop T hs 7 <=14 ng/L Comment: Interpretive Data For further hscTnT resources including the diagnostic algorithm and an aid in interpretation, copy and paste this link: [email or web address].[email or web address]/[email or web address] Current Interpretive Data last revised 2020. Blood 07/08/2025 4:51 PM CDT 07/08/2025 5:29 PM CDT us Zion Dowling III, MD LAB BLOOD ORDER BHUMIKA Edited Result - Final Performing Organization Address [facility]/ZIP Co de Phone Number [place] [place] [phone] [place] [address] * eGFR (07/08/2025 4:51 PM CDT) eGFR 86 >=60 mL/min/1. 73 m2 Comment: Interpretive Data Reference Interval Normal >/= 90 mL/min/1.73m2 Mildly decreased* 60 - 89 mL/min/1.73m2 Mildly to moderately decreased 45 - 59 mL/min/1.73m2 Moderately to severely decreased 30 - 44 mL/min/1.73m2 Severely decreased 15 - 29 mL/min/1.73m2 Kidney Failure < 15 mL/min/1.73m2 *Relative to young adult level Estimated glomerular filtration rate is determined by the 2020 CKD-EPI equation recommended by the National Kidney Foundation (A Unifying Approach to GFR Estimation: Recommendations of the NKF-ASK Task Force on Reassessing the Inclusion of Race in Diagnosing Kidney Disease, JASN 202). The CKD-EPI equation should not be used for patients with unstable renal function and has not been validated in children and those over 70. Current interpretive data was last reviewed 2021. Blood 07/08/2025 4:51 PM CDT 07/08/2025 5:29 PM CDT us Chloe Humphries MD LAB BLOOD ORDERABLES Final Result Performing Organization Address [facility]/[place] [address] [employer] [place], [place] [id number] * (ABNORMAL) Differential, auto (07/08/2025 4:51 PM CDT) Neutrophil abs 3.29 1.50 - 6.50 K/cumm Imm gran abs 0.01 0.00 - 0.10 K/cumm [facility] Lymphocyte abs 3.17 0.80 - 3.30 K/cumm [facility] Monocyte abs 0.90(H) 0.20 - 0.80 K/cumm [facility] Eosinophil abs 1.94(H) 0.00 - 0.50 K/cumm [facility] Basophil abs 0.10 0.00 - 0.10 K/cumm [facility] Neutrophil pct 34.9 % [facility] Comment: Interpretive Data Percent cell count reference ranges are not reported, since discordance with absolute values may lead to misinterpretation of CBC data. Current Interpretive Data was last revised on 2018. Imm gran pct 0.1 % [facility] Comment: Interpretive Data Percent cell count reference ranges are not reported, since discordance with absolute values may lead to misinterpretation of CBC data. Current Interpretive Data was last revised on 2018. Lymphocyte pct 33.7 % [facility] Comment: Interpretive Data Percent cell count reference ranges are not reported, since discordance with absolute values may lead to misinterpretation of CBC data. Current Interpretive Data was last revised on 2018. Monocyte pct 9.6 % [facility] Comment: Interpretive Data Percent cell count reference ranges are not reported, since discordance with absolute values may lead to misinterpretation of CBC data. Current Interpretive Data was last revised on 2018. Eosinophil pct 20.6 % [facility] Comment: Interpretive Data Percent cell count reference ranges are not reported, since discordance with absolute values may lead to misinterpretation of CBC data. Current Interpretive Data was last revised on 2018. Basophil pct 1.1 % [facility] Comment: Interpretive Data Percent cell count reference ranges are not reported, since discordance with absolute values may lead to misinterpretation of CBC data. Current Interpretive Data was last revised on 2018. Blood 07/08/2025 4:51 PM CDT 07/08/2025 5:29 PM CDT Chloe Humphries MD LAB BLOOD ORDERABLES Final Result Performing Organization Address [facility] Co de Phone Number [facility] [address] Department [place] [address] * (ABNORMAL) CBC with auto differential (07/08/2025 4:51 PM CDT) WBC 9.41 3.80 - 9.90 K/cumm Hgb 16.0(H) 11.9 - 15.5 g/dL [facility] Hct 49.2(H) 35.6 - 45.5 % [facility] Plt 277 150 - 400 K/cumm [facility] MPV 11.6 9.1 - 12.3 fL [facility] RBC 5.37(H) 3.90 - 5.20 M/cumm [facility] MCV 91.6 81.3 - 96.4 fL [facility] MCH 29.8 27.1 - 33.3 pg [facility] CH MCHC 32.5 32.3 - 35.7 g/dL [facility] CH RDW CV 14.8 11.1 - 14.9 % [facility] CH RDW SD 49.8(H) 35.7 - 48.1 fL [facility] NRBC abs 0.00 0.00 - 0.01 K/cumm [facility] Blood 07/08/2025 4:51 PM CDT 07/08/2025 5:29 PM CDT us Zion Dowling III, MD LAB BLOOD ORDER BHUMIKA Final Result Performing Organization Address [facility] Co de Phone Number [facility] [address] Department [place] [address] * (ABNORMAL) Comprehensive metabolic panel (07/08/2025 4:51 PM CDT) Sodium 141 135 - 145 mmol/L Potassium, pl 4.5 3.3 - 4.9 mmol/L [facility] Chloride 103 97 - 110 mmol/L [facility] CO2 24 22 - 32 mmol/L [facility] Anion gap 14 2 - 15 mmol/L [facility] BUN 15 6 - 25 mg/dL [facility] Creatinine 0.74 0.60 - 1.10 mg/dL [facility] Glucose 90 70 - 199 mg/dL [facility] Comment: Interpretive Data Fasting glucose >/= 126 mg/dl is diagnostic for diabetes. Fasting is defined as no caloric intake [...] interpretive data was last revised 2022. Calcium 10.4(H) 8.5 - 10.3 mg/dL [facility] Bilirubin, total 0.3 0.1 - 1.2 mg/dL [facility] Protein, pl 7.9 6.5 - 8.5 g/dL [facility] Albumin 4.2 3.5 - 5.0 g/dL [facility] Alk phos 89 40 - 130 Units/L [facility] ALT 19 7 - 45 Units/L [facility] AST 28 10 - 45 Units/L [facility] Blood 07/08/2025 4:51 PM CDT 07/08/2025 5:29 PM CDT us Zion Dowling III, MD LAB BLOOD ORDER BHUMIKA Final Result [facility] [address] Department [place] [address] * XR Chest PA Lateral 2 Views (If patient hemodynamically stable and ambulatory) (07/08/2025 3:30 PM CDT) Anatomical Region Laterality Modality Body, Chest N/A Computed Radiogr aphy 07/08/2025 3:33 PM CDT Impressions 07/08/2025 3:33 PM CDT Suspicion of very mild vascular congestion. Electronically signed by: Eddie Enriquez M.D. Narrative 07/08/2025 3:33 PM CDT EXAMINATION: XR CHEST PA LATERAL 2 VIEWS HISTORY: The patient is a 70-year-old female who presents with shortness of breath. TECHNIQUE: PA and lateral view of the chest. FINDINGS: Lungs clear. Slight haziness of the vascular markings. Heart not enlarged. Procedure Note Eddie Enriquez MD - 07/08/2025 EXAMINATION: XR CHEST PA LATERAL 2 VIEWS HISTORY: The patient is a 70-year-old female who presents with shortness of breath. TECHNIQUE: PA and lateral view of the chest. FINDINGS: Lungs clear. Slight haziness of the vascular markings. Heart not enlarged. IMPRESSION: Suspicion of very mild vascular congestion. Electronically signed by: Eddie Enriquez M.D. Zion Dowling III, MD IMG XR PROCEDUR ES Final Result * Respiratory pathogen panel Nasopharyngeal (07/08/2025 3:14 PM CDT) Influenza A RNA Not Detected Not Detected CH Influenza B RNA Not Detected Not Detected [facility] RSV RNA Not Detected Not Detected [facility] COVID-19 RNA Not Detected Not Detected [facility] Coronavirus 229E RNA Not Detected Not Detected [facility] Coronavirus HKU1 RNA Not Detected Not Detected [facility] Coronavirus NL63 RNA Not Detected Not Detected [facility] Coronavirus OC43 RNA Not Detected Not Detected [facility] Adenovirus DNA Not Detected Not Detected [facility] Metapneumovirus RNA Not Detected Not Detected [facility] Rhinovirus/Enterov irus RNA Not Detected Not Detected [facility] Parainfluenza 1 RNA Not Detected Not Detected [facility] Parainfluenza 2 RNA Not Detected Not Detected [facility] Parainfluenza 3 RNA Not Detected Not Detected [facility] Parainfluenza 4 RNA Not Detected Not Detected [facility] B. pertussis DNA Not Detected Not Detected [facility] B. parapertussis DNA Not Detected Not Detected [facility] C. pneumoniae DNA Not Detected Not Detected [facility] M. pneumoniae DNA Not Detected Not Detected [facility] Comment: Interpretive Data The [employer]et[employer] FilmArray Respiratory Panel (RP2.1) assay is a multiplexed real-time PCR based nucleic acid test capable of simultaneous qualitative detection and identification of multiple respiratory viral and bacterial nucleic acids, including SARS Coronavirus 2 (the causative agent of COVID-19). The following bacteria, viruses and virus subtypes can be identified using the FilmArray RP2.1 assay: Bordetella pertussis, Bordetella parapertussis, Chlamydia pneumoniae, Mycoplasma pneumoniae, Adenovirus, SARS Coronavirus 2, seasonal coronaviruses (Coronavirus HKU1, Coronavirus NL63, Coronavirus 229E, and Coronavirus OC43), Influenza A, Influenza A subtype H1, Influenza A subtype H3, Influenza A subtype 2009 H1, Influenza B, Metapneumovirus, Parainfluenza 1, Parainfluenza 2, Parainfluenza 3, Parainfluenza 4, RSV, Rhinovirus/Enterovirus. Due to the genetic similarity between human Rhinovirus and Enterovirus, the FilmArray RP2.1 assay cannot reliably differentiate them. Coronavirus OC43 may cross-react with some isolates of Coronavirus HKU1. A dual positive result may be due to cross-reactivity or may indicate a co- infection. The detection and identification of specific viral and bacterial nucleic acids from individuals exhibiting signs and symptoms of a respiratory infection aids in the diagnosis of respiratory infection if used in conjunction with other clinical and epidemiological information. The results of this test should not be used as the sole basis for diagnosis, treatment, or other management decisions. Negative results in the setting of a respiratory illness may be due to infection with pathogens that are not detected by this test. Positive results do not rule out infection/co-infection with other organisms. The agent(s) detected by the FilmArray RP2.1 may not be the definite cause of disease. Additional testing (lab, imaging, etc.) may be necessary when evaluating a patient with possible respiratory tract infection. The FilmArray RP2.1 assay has FDA clearance for testing of MULTIMEDIA COORDINATOR swabs. The performance characteristics of this assay have been determined by [facility]. Current interpretive data was last revised on 2021. Nasopharyngeal 07/08/2025 3: 14 PM CDT 07/08/2025 3:31 PM CDT Orlando MATA - 07/08/2025 5:01 PM CDT Is the Patient experiencing symptoms consistent with COVID?->Yes Surveillance testing for transplant patient?->No Zion Dowling III, MD LAB MICROBIOLOG Y - GENERAL ORDERABLES Final Result Performing Organization Address [facility] [place] [address] [address] Department [place] [address] CH * ECG 12 lead (07/08/2025 3:13 PM CDT) 07/08/2025 3:13 PM CDT Narrative [facility] - 07/09/2025 8:56 AM CDT Vent Rate: 90 bpm RR Interval: 661 msec GA Interval: 156 msec QRS Duration: 82 msec QT Interval: 340 msec QTC Interval: 388 msec P-R-T Lawrence: 30 - 1 - 63 degrees IMPRESSION: SINUS RHYTHM ANTEROSEPTAL MYOCARDIAL INFARCTION , OF INDETERMINATE AGE [40+ ms Q WAVE IN V1- V4] ABNORMAL ECG Electronically Signed By: Dav Cid MD us Zion Dowling III, MD ECG ORDERABLES Final Result Performing Organization Address [facility] de Phone Number [facility] Hologic [facility] * Allergen Rat mix (animal) IgE (06/10/2025 1:26 PM CDT) Rat mix IgE <0.10 0.00 - 0.34 kUnits/L Comment:Testing performed by : [facility], [address] [place] [address]., [id number] Blood 06/10/2025 1:26 PM CDT 06/11/2025 11:52 AM CDT us Giana Joshi MD LAB BLOOD ORDERABLES Final Result Performing Organization Address [facility] [place] [address] Department [place] [address] * Allergen Mouse mix (animal) IgE (06/10/2025 1:26 PM CDT) Mouse mix IgE <0.10 0.00 - 0.34 kUnits/L Comment:Testing performed by : [facility], [address] [place] [address], [place]., [address] Blood 06/10/2025 1:26 PM CDT 06/11/2025 11:52 AM CDT Giana Joshi MD LAB BLOOD ORDERABLES Final Result [facility] [address] Department of [place] [address] * (ABNORMAL) Differential, auto (06/10/2025 1:26 PM CDT) Neutrophil abs 3.67 1.50 - 6.50 K/cumm Imm gran abs 0.02 0.00 - 0.10 K/cumm [facility] Lymphocyte abs 2.49 0.80 - 3.30 K/cumm [facility] Monocyte abs 0.82(H) 0.20 - 0.80 K/cumm [facility] Eosinophil abs 1.30(H) 0.00 - 0.50 K/cumm [facility] Basophil abs 0.11(H) 0.00 - 0.10 K/cumm [facility] Neutrophil pct 43.6 % [facility] Comment: Interpretive Data Percent cell count reference ranges are not reported, since discordance with absolute values may lead to misinterpretation of CBC data. Current Interpretive Data was last revised on 2018. Imm gran pct 0.2 % [facility] Comment: Interpretive Data Percent cell count reference ranges are not reported, since discordance with absolute values may lead to misinterpretation of CBC data. Current Interpretive Data was last revised on 2018. Lymphocyte pct 29.6 % [facility] Comment: Interpretive Data Percent cell count reference ranges are not reported, since discordance with absolute values may lead to misinterpretation of CBC data. Current Interpretive Data was last revised on 2018. Monocyte pct 9.8 % [facility] Comment: Interpretive Data Percent cell count reference ranges are not reported, since discordance with absolute values may lead to misinterpretation of CBC data. Current Interpretive Data was last revised on 2018. Eosinophil pct 15.5 % [facility] Comment: Interpretive Data Percent cell count reference ranges are not reported, since discordance with absolute values may lead to misinterpretation of CBC data. Current Interpretive Data was last revised on 2018. Basophil pct 1.3 % [facility] Comment: Interpretive Data Percent cell count reference ranges are not reported, since discordance with absolute values may lead to misinterpretation of CBC data. Current Interpretive Data was last revised on 2018. Blood 06/10/2025 1:26 PM CDT 06/10/2025 10:15 PM CDT Giana Joshi MD LAB BLOOD ORDERABLES Final Result Performing Organization Address City/[facility] Co de Phone Number [facility] [address] [address] [facility] [employer] [place] [address] * Allergen Penicillium chrysogenum (mold) IgE (06/10/2025 1:26 PM CDT) Penicillium chrysogenum IgE <0.10 0.00 - 0.34 kUnits/L Comment:Testing performed by : [facility], [address] [place] [address]., [id number] Blood 06/10/2025 1:26 PM CDT 06/11/2025 11:52 AM CDT Result [facility] Giana Joshi MD LAB BLOOD ORDERABLES Final Result Performing Organization Address City/[facility] Co de Phone Number [facility] [address] [place] [address] * Allergen Alborn (tree) IgE (06/10/2025 1:26 PM CDT) Alborn IgE <0.10 0.00 - 0.34 kUnits/L Comment:Testing performed by : [facility], [address] [place] [address]., [id number] Blood 06/10/2025 1:26 PM CDT 06/11/2025 11:52 AM CDT Result [facility] Giana Joshi MD LAB BLOOD ORDERABLES Final Result [facility] [address] [address] Department [place] [address] * Allergen Mountain junangel (tree) IgE (06/10/2025 1:26 PM CDT) [facility] kendra IgE <0.10 0.00 - 0.34 kUnits/L Comment:Testing performed by : [facility], [address] [place]., [id number] Blood 06/10/2025 1:26 PM CDT 06/11/2025 11:52 AM CDT Giana Joshi MD LAB BLOOD ORDERABLES Final Result Performing Organization Address [facility] Co de Phone Number [facility] DOUGLAS [address] [address] Department [place] [address] * (ABNORMAL) CBC with auto differential (06/10/2025 1:26 PM CDT) [facility] WBC 8.41 3.80 - 9.90 K/cumm Hgb 15.0 11.9 - 15.5 g/dL [facility] Hct 47.8(H) 35.6 - 45.5 % [facility] Plt 297 150 - 400 K/cumm [facility] MPV 11.7 9.1 - 12.3 fL [facility] RBC 4.95 3.90 - 5.20 M/cumm [facility] MCV 96.6(H) 81.3 - 96.4 fL [facility] MCH 30.3 27.1 - 33.3 pg [facility] MCHC 31.4(L) 32.3 - 35.7 g/dL [facility] RDW CV 15.6(H) 11.1 - 14.9 % [facility] RDW SD 55.8(H) 35.7 - 48.1 fL [facility] NRBC abs 0.00 0.00 - 0.01 K/cumm [facility] Blood 06/10/2025 1:26 PM CDT 06/10/2025 10:15 PM CDT Giana Joshi MD LAB BLOOD ORDERABLES Final Result Performing Organization Address City/[facility]/ZIP Co de Phone Number [facility] DOUGLAS [address] [address] [facility] [employer] [place] [address] * Allergen Bermuda grass (grass) IgE (06/10/2025 1:26 PM CDT) Bermuda grass IgE <0.10 0.00 - 0.34 kUnits/L Comment:Testing performed by : [facility], [address] [place] [address]., [id number] Blood 06/10/2025 1:26 PM CDT 06/11/2025 11:52 AM CDT Giana Joshi MD LAB BLOOD ORDERABLES Final Result Performing Organization Address City/[facility] Co de Phone Number [facility] DOUGLAS [address] [address] [facility] [employer] [place] [address] * Allergen Plantain icelandic (weed) IgE (06/10/2025 1:26 PM CDT) [facility] Plantain icelandic IgE <0.10 0.00 - 0.34 kUnits/L Comment:Testing performed by : [facility], [address] [place] [address]., [id number] Blood 06/10/2025 1:26 PM CDT 06/11/2025 11:52 AM CDT Giana Joshi MD LAB BLOOD ORDERABLES Final Result [facility] [address] [address] [facility] [employer] [place] [address] * Allergen Elm (tree) IgE (06/10/2025 1:26 PM CDT) Elm IgE <0.10 0.00 - 0.34 kUnits/L Comment:Testing performed by : [facility], [address] [place] [address]., [id number] Blood 06/10/2025 1:26 PM CDT 06/11/2025 11:52 AM CDT Giana Joshi MD LAB BLOOD ORDERABLES Final Result Performing Organization Address [facility] Co de Phone Number ESP[facility] [address] Jose [address] [facility] [employer] [place] [address] * Allergen Cladosporium herbarum (mold) IgE (06/10/2025 1:26 PM CDT) Cladosporium herbarum IgE <0.10 0.00 - 0.34 kUnits/L Comment:Testing performed by : [facility], [address] [place] [address]., [id number] Blood 06/10/2025 1:26 PM CDT 06/11/2025 11:52 AM CDT Giana Joshi MD LAB BLOOD ORDERABLES Final Result Performing Organization Address [facility] Co de Phone Number [facility] [address] Jose [address] [facility] [employer] [place] [address] * Allergen Birch common silver (tree) IgE (06/10/2025 1:26 PM CDT) Birch common silver IgE <0.10 0.00 - 0.34 kUnits/L Comment:Testing performed by : [facility], [address] [place] [address]., [id number] Blood 06/10/2025 1:26 PM CDT 06/11/2025 11:52 AM CDT Giana Joshi MD LAB BLOOD ORDERABLES Final Result Performing Organization Address City/[facility]/ZIP Co de Phone Number [facility] [address] [address] [facility] [employer] [place] [address] * Allergen Alternaria tenuis (mold) IgE (06/10/2025 1:26 PM CDT) Alternaria tenius IgE <0.10 0.00 - 0.34 kUnits/L Comment:Testing performed by : [facility], [address] [place] [address]., [id number] Blood 06/10/2025 1:26 PM CDT 06/11/2025 11:52 AM CDT Giana Joshi MD LAB BLOOD ORDERABLES Final Result Performing Organization Address City/[facility]/ZIP Co de Phone Number [facility] [address] [address] [facility] [employer] [place] [address] * Allergen Aspergillus fumigatus (mold) IgE (06/10/2025 1:26 PM CDT) Aspergillus fumigatus IgE <0.10 0.00 - 0.34 kUnits/L Comment:Testing performed by : [facility], [address] [place] [address]., [id number] Blood 06/10/2025 1:26 PM CDT 06/11/2025 11:52 AM CDT Giana Joshi MD LAB BLOOD ORDERABLES Final Result Performing Organization Address City/[facility]/ZIP Co de Phone Number [facility] [address] [address] [facility] [place] [address] * Allergen Dermatophagoides pteronyssinus (insect) IgE (06/10/2025 1:26 PM CDT) Dermatophyton pteronyssinus IgE <0.10 0.00 - 0.34 kUnits/L Comment:Testing performed by : [facility], [address] [place] [address]., [id number] Blood 06/10/2025 1:26 PM CDT 06/11/2025 11:52 AM CDT Giana Joshi MD LAB BLOOD ORDERABLES Final Result Performing Organization Address City/[facility] Co de Phone Number [facility] DOUGLAS [address] [address] [facility] [employer] [place] [address] * Allergen Dermatophagoides farniae (insect) IgE (06/10/2025 1:26 PM CDT) Dermatophyton farinae IgE <0.10 0.00 - 0.34 kUnits/L Comment:Testing performed by : [facility], [address] [place] [address]., [id number] Blood 06/10/2025 1:26 PM CDT 06/11/2025 11:52 AM CDT Giana Joshi MD LAB BLOOD ORDERABLES Final Result Performing Organization Address [facility] Co de Phone Number [facility] DOUGL[facility] [address] [address] [facility] [employer] [place] [address] * Allergen Epithelia/dander dog (animal) IgE (06/10/2025 1:26 PM CDT) Dog dander IgE <0.10 0.00 - 0.34 kUnits/L Comment:Testing performed by : [facility], [address] [place] [address]., [id number] Blood 06/10/2025 1:26 PM CDT 06/11/2025 11:52 AM CDT Giana Joshi MD LAB BLOOD ORDERABLES Final Result Performing Organization Address City/[facility]/ZIP Co de Phone Number [facility] DOUGLAS [address] Jose [address] [facility] [employer] [place], [place] [address] * Allergen Cockroach ecuadorean (insect) IgE (06/10/2025 1:26 PM CDT) Cockroach IgE <0.10 0.00 - 0.34 kUnits/L Comment:Testing performed by : [facility], [address] [place]., [id number] Blood 06/10/2025 1:26 PM CDT 06/11/2025 11:52 AM CDT Giana Joshi MD LAB BLOOD ORDERABLES Final Result Performing Organization Address [facility] Co de Phone Number PEEKEANU [address] Jose [address] [facility] [employer] [place] [address] * Allergen Epithelia/dander cat (animal) IgE (06/10/2025 1:26 PM CDT) Cat dander IgE <0.10 0.00 - 0.34 kUnits/L Comment:Testing performed by : [facility], [address] [place] [address]., [id number] Blood 06/10/2025 1:26 PM CDT 06/11/2025 11:52 AM CDT Giana Joshi MD LAB BLOOD ORDERABLES Final Result Performing Organization Address [facility] Co de Phone Number ESP[facility] [address] Jose [address] [facility] [employer] [place] [address] * Allergen Ragweed short/common (weed) IgE (06/10/2025 1:26 PM CDT) Ragweed common IgE <0.10 0.00 - 0.34 kUnits/L Comment:Testing performed by : [facility], [address] [place] [address]., [id number] Blood 06/10/2025 1:26 PM CDT 06/11/2025 11:52 AM CDT Giana Joshi MD LAB BLOOD ORDERABLES Final Result Performing Organization Address City/[facility]/ZIP Co de Phone Number [facility] [address] [address] [facility] [employer] [place] [address] * Allergen Pigweed, rough (weed) IgE (06/10/2025 1:26 PM CDT) Pathologist [facility] Pigweed rough IgE <0.10 0.00 - 0.34 kUnits/L Comment:Testing performed by : [facility], [address] [place] [address]., [id number] Blood 06/10/2025 1:26 PM CDT 06/11/2025 11:52 AM CDT Giana Joshi MD LAB BLOOD ORDERABLES Final Result [facility] [address] [address] Department [employer] [place] [address] * Allergen Nettle (weed) IgE (06/10/2025 1:26 PM CDT) [facility] Nettle IgE <0.10 0.00 - 0.34 kUnits/L Comment:Testing performed by : [facility], [address] [place] [address]., [id number] Blood 06/10/2025 1:26 PM CDT 06/11/2025 11:52 AM CDT Giana Joshi MD LAB BLOOD ORDERABLES Final Result [facility] [address] [address] [facility] Department of [employer] [place] [address] * Allergen Seymour's quarter (weed) IgE (06/10/2025 1:26 PM CDT) Seymour's quarters IgE <0.10 0.00 - 0.34 kUnits/L Comment:Testing performed by : [facility], [address] [place] [address], [place]., [address] Blood 06/10/2025 1:26 PM CDT 06/11/2025 11:52 AM CDT Giana Joshi MD LAB BLOOD ORDERABLES Final Result Performing Organization Address City/[facility]/ZIP Co de Phone Number [facility] DOUGLAS [address] Jose [address] [facility] [employer] [place] [address] * Allergen Robert grass (grass) IgE (06/10/2025 1:26 PM CDT) Robert grass IgE <0.10 0.00 - 0.34 kUnits/L Comment:Testing performed by : [facility], [address] [place] [address]., [id number] Blood 06/10/2025 1:26 PM CDT 06/11/2025 11:52 AM CDT Giana Joshi MD LAB BLOOD ORDERABLES Final Result Performing Organization Address [facility] Co de Phone Number PEEKEANU DOUGLAS [address] Jose [address] [facility] [employer] [place] [address] * Allergen Alon grass (grass) IgE (06/10/2025 1:26 PM CDT) Alon grass IgE <0.10 0.00 - 0.34 kUnits/L Comment:Testing performed by : [facility], [address] [place] [address]., [id number] Blood 06/10/2025 1:26 PM CDT 06/11/2025 11:52 AM CDT Giana Joshi MD LAB BLOOD ORDERABLES Final Result P[facility] DOUGLAS [address] Jose [address] [facility] [employer] [place] [address] * Allergen Dry Run (tree) IgE (06/10/2025 1:26 PM CDT) Dry Run (tree) IgE <0.10 0.00 - 0.34 kUnits/L Comment:Testing performed by : [facility], [address] [place] [address]., [id number] Blood 06/10/2025 1:26 PM CDT 06/11/2025 11:52 AM CDT Giana Joshi MD LAB BLOOD ORDERABLES Final Result [facility] [address] Jose [address] [facility] Department [employer] [place] [address] * Allergen Lanham ecuadorean (tree) IgE (06/10/2025 1:26 PM CDT) Lanham IgE <0.10 0.00 - 0.34 kUnits/L Comment:Testing performed by : [facility], [address] [place] [address]., [id number] Blood 06/10/2025 1:26 PM CDT 06/11/2025 11:52 AM CDT Giana Joshi MD LAB BLOOD ORDERABLES Final Result Performing Organization Address City/[facility]/ZIP Co de Phone Number [facility] [address] Jose [address] [facility] [employer] [place] [address] * Allergen Maple/Box elder (tree) IgE (06/10/2025 1:26 PM CDT) Maple/box elder IgE <0.10 0.00 - 0.34 kUnits/L Comment:Testing performed by : [facility], [address] [place] [address], [place]., [address] Blood 06/10/2025 1:26 PM CDT 06/11/2025 11:52 AM CDT Giana Joshi MD LAB BLOOD ORDERABLES Final Result [facility] [address] Jose [address] Montoya Department [employer] [place] [address] * Allergen Wabasso red (tree) IgE (06/10/2025 1:26 PM CDT) [place] IgE <0.10 0.00 - 0.34 kUnits/L Comment:Testing performed by : [facility], [address] [place]., [address] Blood 06/10/2025 1:26 PM CDT 06/11/2025 11:52 AM CDT Giana Joshi MD LAB BLOOD ORDERABLES Final Result Performing Organization Address [facility] Co de Phone Number ESPER[facility] [address] Jose E Department [employer] [place] [address] * IgE (06/10/2025 1:26 PM CDT) Pathologist [facility] IgE 66 <=100 IUnits/mL Comment:Testing performed by : [facility], [address] [place]., [address] Blood 06/10/2025 1:26 PM CDT 06/11/2025 10:19 AM CDT Giana Joshi MD LAB BLOOD ORDERABLES Final Result Performing Organization Address [facility] Co de Phone Number ESPERAN[facility] DOUGLAS [address] Jose E [place] [address] * Screening Mammogram Bilateral W Hector (12/26/2024 7:47 AM MACHINIST AUTOMOTIVE) Anatomical Region Laterality Modality Breast Bilateral Mammography 12/26/2024 8:36 AM MACHINIST AUTOMOTIVE Impressions 12/26/2024 8:36 AM MACHINIST AUTOMOTIVE No evidence of malignancy in either breast. FINAL ASSESSMENT: BI-RADS Category 2: Benign. RECOMMENDATION: Recommend return for annual screening mammogram in 12 months. Electronically signed by: Dane Purdy M.D. Narrative 12/26/2024 8:36 AM MACHINIST AUTOMOTIVE EXAMINATION: BILATERAL SCREENING MAMMOGRAM COMPARISON: 12/08/2022, 11/08/2022, 10/26/2021, 10/20/2020 TECHNIQUE: Full-field 2D and digital breast tomosynthesis (DBT) images were obtained. CAD was utilized. BREAST PARENCHYMAL COMPOSITION: There are scattered areas of fibroglandular density. FINDINGS: There are benign bilateral breast calcifications. There is no suspicious mass, calcification, or distortion in either breast. There has been no suspicious interval change. us Alhaji Payan MD IM MAMMO PROCEDURES Final Result * COLONOSCOPY (04/22/2022 7:32 AM CDT) Anatomical Region Laterality Modality Other Narrative Procedure Note Jaciel Mott MD - 04/22/2022 7:32 AM CDT [facility] Patient Name: Gabbie Chris Procedure Date: 04/22/2022 7:32 AM Date of : 1955 Admit Type: Outpatient Age: 66 Gender: Female Attending MD: Jaciel Mott M.D. Room: [facility] ENDOSCOPY ROOM 2 Note Status: Finalized Patient [...] scope was passed under direct vision. TheColonoscope [id number] was introduced through the anus and advanced [...] history of colonic polyps CPT copyright 2020 [employer]. All rights reserved. The codes documented in this report are preliminary and upon animal care attendant reviewmay be revised to meet current compliance requirements. Recognized by the [employer] for promoting quality in endoscopy us Jaciel Mott MD ENDOSCOPY PROCEDURES Final Re sult * Hepatitis C antibody (02/05/2019 7:21 AM CDT) Hep C Ab Negative Negative [facility] (TRICIA) Comment:Testing performed by : [facility], [address] [place] [address]., [id number] Blood specimen (specimen) 02/05/2019 7:21 AM CDT 02/05/2019 11:10 AM CDT Narrative [facility] ([place]) - 02/05/2019 11:58 AM CDT us Torito Gonzalez MD LAB MICROBIOLOGY - GENERAL ORDERABLES Final Result [facility] (TRICIA) 1 [facility] [place] [address] from Last 3 Months or Most Recently Relevant to Health Maintenance Insurance MEDIC[employer] [facility] [employer] MEDIC[employer] Advance Directives For more information, please contact: [phone] * Full Code (Latest Code Status on File) Date Activated Date Inactivated Comments 07/08/2025 7:46 PM 07/11/2025 7:24 PM * Full Code Date Activated Date Inactivated Comments 01/16/2023 12:06 AM 01/18/2023 6:06 PM * Full Code Date Activated Date Inactivated Comments 04/22/2022 7:36 AM 04/22/2022 2:11 PM * Full Code Date Activated Date Inactivated Comments 01/15/2019 10:37 AM 01/15/2019 4:19 PM * Full Code Date Activated Date Inactivated Comments 01/15/2019 10:37 AM 01/15/2019 10:37 AM Care Teams Pan Devulcanizer Relationship Specialty Start Date End Date Torito Gonzalez MD [address] [place] [address] PCP - General 02/25/17 [place] [address] [address] Consulting Physician Pulmonary Disease 01/30/24 Vitaly Esquivel MD [address] [place] [address] Consulting Physician Family Medicine 07/11/25
--- OUTSIDE RECORDS SUMMARY | 2025-08-05 21:28 | XMS_ITS | Encounter Summary ---
Author Organization [facility] Healthcare Address [address] [place] [address] Care Team Providers Care Email Marketing Intern Name Role Phone Torito Gonzalez MD Primary Care Provider [phone] Sol Lincoln MD Unavailable [phone] Vitaly Esquivel MD Unavailable [phone] Reason for Visit * Reason Onset Date Comments DEXA/Prolia 07/26/2025 Encounter Details Date Type Department Care Team (Late st Contact Info) Description 07/26/2025 Telephone [facility] [address] [place] [address] Leticia Montes De Oca RN DEXA/Prolia Social History Tobacco Use Types Packs/Day Years [...] any clubs o r organizations such as synagogue groups, unions, fraternal or athletic groups, or [...] in a halfway (including now)? No 01/18/2023 Social Connection and Isolation Panel Answer Date Recorded In a typical week, how many times do you talk on the phone with family, friends, or neighbors? More than three times a week 07/09/2025 How often do you get togethe r with friends or relatives? More than three times a week 07/09/2025 How often do you attend chur or protestant services? More than 4 times per year 07/09/2025 Do you belong to any clubs o r organizations such as synagogue groups, unions, fraternal or athletic groups, or [...] any time in the past 12 m [facility], were you homeless or living in a halfway (including now)? 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 She is due any time for her next Prolia injection. Does she need to continue the Prolia? Please advise. Thanks! documented in this encounter Plan of Treatment Not on file documented as of this encounter Visit Diagnoses Not on filedocumented in this encounter Care Teams Email Marketing Intern Relationship Specialty Start Date End Date Torito Gonzalez MD [address] [place] [address] PCP - General 02/25/17 [place] [address] [address] Consulting Physician Pulmonary Disease 01/30/24 Vitaly Esquivel MD [address] [place] [address] Consulting Physician Family Medicine 07/11/25 documented as of this encounter
--- OUTSIDE RECORDS SUMMARY | 2025-08-05 21:28 | XMS_ITS | Encounter Summary ---
Author Organization [facility] Healthcare Address [address] [place] [address] Care Team Providers Care User Experience Lead Name Role Phone Torito Gonzalez MD Primary Care Provider [phone] Sol Lincoln MD Unavailable [phone] Vitaly Esquivel MD Unavailable Reason for Visit * Reason Onset Date Comments Scheduling Appointments 10/23/2021 no answe r to confirm mamm appointment Encounter Details Date Type Department Care Team (Late st Contact Info) Description 10/23/2021 Telephone 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 Gender Identity Not on file Sexual Orientation Not on file documented as of this encounter Plan of Treatment Not on file documented as of this encounter Visit Diagnoses Not on filedocumented in this encounter Additional Health Concerns Infection Onset Date Last Indicated Resolved Time COVID: Suspected 07/08/2025 07/08/2025 07/08/2025 5:02 PM CDT documented as of this encounter Care Teams User Experience Lead Relationship Specialty Start Date End Date Torito Gonzalez MD [address] [place] [address] PCP - General 02/25/17 [place] [id number] [address] Consulting Physician Pulmonary Disease 01/30/24 Vitaly Esquivel MD [address] [place] [address] Consulting Physician Family Medicine 07/11/25 documented as of this encounter
--- NOTE | 2025-08-05 21:29 | ECG_ITS ---
Test Date: 2025-08-05 21:33:59 Measurements Intervals [place] Rate: 79 P: -1 DC: 154 QRS: -13 QRSD: 93 T: 38 QT: 380 QTc: 436 Interpretive Statements SINUS RHYTHM ANTEROSEPTAL MYOCARDIAL INFARCTION , OF INDETERMINATE AGE [40+ ms Q WAVE IN V1-V4] ABNORMAL ECG Compared to ECG 04/18/2025 18:50:23 Myocardial infarct finding now present, SUSPECT ALTERED PRECORDIAL LEAD POSITION Electronically Signed On 08-07-2025 16:32:57 CDT by Josh Coppola M.D.
--- NOTE | 2025-08-05 21:32 | ED.SOB ---
HPI - SOB/Dyspnea General Chief Complaint: Shortness of Breath/Dyspnea Stated Complaint: shortness of breath Time Seen by Provider: 08/05/25 21:28 Source: patient Mode of arrival: ambulatory Limitations: no limitations History of Present Illness HPI Narrative: Patient is a 70-year-old female with cough and phlegm with congestion and shortness of breath over the past week. She has had some anorexia and lack of dietary intake as well as itching. She has started a new respiratory drug once a month injection and feels this could be side effects of that medication. COPD baseline. No home oxygen. MD elicited complaint: shortness of breath and cough Pertinent past history: COPD, asthma and other (Hypertension) Onset (ago): week(s) (1) Context: occurred during exertion Timing: intermittent Severity: similar to previous episodes Exacerbating factors: lying flat, exertion, recent new medication, coughing, inspiration and allergies Relieving factors: oxygen, rest and other (Steroids) Known history of: COPD and asthma Associated symptoms: cough, wheezing, sputum production and chest congestion Treatment prior to arrival: none Related Data Home oxygen amount: none Home Medications ?Medication ?Instructions ?Recorded ?Confirmed ?Last Taken ?Type amlodipine 5 mg tablet 5 mg PO DAILY 08/26/22 04/18/25 04/01/23 History aspirin 81 mg capsule 81 mg PO DAILY 08/26/22 04/18/25 04/01/23 History famotidine 20 mg tablet 20 mg PO DAILY 08/26/22 04/18/25 04/01/23 History Calcium 600 600 mg PO DAILY 05/08/23 04/18/25 Unknown History dupilumab 300 mg subcut [id number] 05/08/23 04/18/25 Unknown History formoterol fumarate 20 mcg inhalation DAILY 05/08/23 04/18/25 Unknown History budesonide 0.5 mg/2 mL suspension mg 04/18/25 Unknown History for nebulization meloxicam 7.5 mg tablet mg 04/18/25 Unknown History Allergies Allergy/AdvReac Type Severity Reaction Status Date / Time amoxicillin (From Augmentin) Allergy Dyspnea / Verified 08/06/25 00:26 SOB clavulanic acid (From Allergy Dyspnea / Verified 08/06/25 00:26 Augmentin) SOB doxycycline Allergy Back Pain Verified 08/06/25 00:26 adhesive tape AdvReac Rash Verified 08/06/25 00:26 Review of Systems Review of Systems: All systems reviewed & are unremarkable except as noted in HPI and below Constitutional: Constitutional: Reports no additional constitutional complaints Eyes: Eyes: Reports no additional eye complaints ENT: Reports system reviewed and no additional complaints, except as documented Cardiovascular: Cardiovascular: Reports no additional cardiovascular complaints Respiratory: Respiratory: Reports no additional respiratory complaints Gastrointestinal: Gastrointestinal: Reports no additional gastrointestinal complaints Genitourinary: Genitourinary: Reports no additional female genitourinary complaints Musculoskeletal: Musculoskeletal: Reports no additional musculoskeletal complaints Integumentary/Breasts: Skin/Breast: Reports system reviewed and no additional complaints, except as docu Neurologic: Reports system reviewed and no additional complaints, except as documented Psychiatric: Psychiatric: Reports no additional psychiatric complaints Endocrine: Endocrine: Reports no additional endocrine complaints Hematologic/Lymphatic: Hematologic/Lymphatic: Reports no additional hematologic/lymphatic complaints Allergic/Immunologic: Allergic/Immunologic: Reports no additional allergic/immunologic complaints PMFSH Past Medical History Medical History Closed fracture of metacarpal of left hand Hypoxia Acute exacerbation of emphysema Hypertension Emphysema of lung Surgical History Surgical History History of hysterectomy Hx of sinus surgery Family History Family History Unknown Asthma Hypertension Heart disease Diabetes mellitus Neuropathy Liver cancer Throat cancer Social History Social History Social History: HISTORY OF SMOKING IN THE PAST Smoking packs per day: 1 Smoking cigarettes per day: 20.0 Years smoked: 40 Smoking pack-years: 40.00 Smoking status: Former smoker Second hand tobacco smoke exposure: No Alcohol intake: current Drinks per week: 1 Substance use: current Substance use type: prescription drug Lack of Transportation: No Lack of Food: Never True Current Housing: I Have Housing Concerned About Future Housing: No Difficulty Paying Gas/Electric Bills: No Difficulty Paying for Meds: No Currently Unemployed: No Education: Bachelor's Degree Difficulty w/ Childcare or Family Care: No Occupation/Education: retired Gender identity (if verbalized by the patient): Female 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) Exam Const: General: healthy appearing Nutritional Appearance: well nourished Orientation/consciousness: patient oriented x3 Limitations: no limitations HENMT: Head: normal to inspection Ears: external ears normal Face/Nose/Sinus: Normal external nose present Eyes: Conjunctivae: conjunctivae normal Pupils: Equal, round and reactive pupils present EOM: EOMs intact bilaterally Neck: Neck: normal visual inspection Chest: Chest palpation & inspection: normal inspection of the chest Resp: Effort & Inspection: normal respiratory effort and not labored Auscultation: clear to auscultation bilaterally, no crackles, no rales, rhonchi, no wheezes, breath sounds present and diminished lung sounds Cardio: Rate: regular rate Rhythm: regular rhythm Heart sounds: Murmur heart sound present GI: Inspection: non-distended GI Palp: Yes Soft to palpation, No Tenderness to palpation present (GI), No Guarding due to palpation present (GI), No Rigid due to palpation, No Hernia present, No Palpable mass present and No Rebound tenderness present Auscultation: normal bowel sounds : General: Yes bladder normal to palpation Back/Spine/Pelvis: Back: no CVA tenderness Skin: General skin exam: normal color Rashes: no rashes Wounds: no wounds Neuro: General: patient oriented x3, moves all extremities and no meningeal signs Cranial nerves: Yes Nystagmus not present Speech: normal speech Gait exam (Neuro): Normal gait present Extrem: General: normal to inspection Psych: Mental Status: mental status grossly normal Affect: normal affect Attitude: cooperative Course Vital Signs Vital signs: Vital Signs Temperature 36.6 C 08/05/25 21:27 Pulse Rate 89 08/05/25 21:27 Respiratory Rate 16 08/05/25 21:27 Blood Pressure 137/76 08/05/25 21:27 Pulse Oximetry 88 L 08/05/25 21:27 Oxygen Delivery Room Air 08/05/25 21:27 Temperature 36.6 C 08/05/25 21:27 Pulse Rate 85 08/06/25 01:57 Respiratory Rate 22 H 08/06/25 01:57 Blood Pressure 120/75 08/06/25 01:40 Pulse Oximetry 93 08/06/25 01:57 Oxygen Delivery Nasal Cannula 08/06/25 01:40 Oxygen Flow Rate 2 08/06/25 01:57 MDM - SOB/Dyspnea MDM Narrative Medical decision making narrative: Patient is a 70-year-old female with COPD exacerbation and a flare this evening. She is concerned for the Xolair causing side effects such as this taken for the 1st time a week ago. I explained we will just have to let that medicine wear off over time and talk to the primary/specialist about this medication before giving it again. Lab Data Attestation: I reviewed the patient's lab results. 08/05/25 21:43 08/05/25 21:43 Labs: Lab Results 08/05/25 08/05/25 08/05/25 Range/Units 21:43 21:44 22:32 WBC 7.8 (4.8-10.8) K/mm3 RBC 4.90 (4.20-5.40) M/mm3 Hgb 14.4 H (11.7-13.8) g/dL Hct 44.1 H (35.0-42.0) % MCV 90.0 (78.0-102.0) fL MCH 29.4 (27.0-31.0) pg MCHC 32.7 (32-36) g/dL RDW 14.6 H (11.6-14.4) % Plt Count 331 (150-420) K/mm3 MPV 10.2 (9.2-11.8) fl Immature Gran % (Auto) 0.5 H (0.0-0.0) % Neut % (Auto) 33.7 L (50.0-70.0) % Lymph % (Auto) 44.9 H (18.0-42.0) % [place] % (Auto) 11.7 H (2.0-11.0) % Eos % (Auto) 8.0 H (1.0-6.0) % Baso % (Auto) 1.2 H (0.0-1.0) % Lymph # (Auto) 3.48 (1.10-4.50) K/mm3 [place] # (Auto) 0.91 H (0.10-0.90) K/mm3 Eos # (Auto) 0.62 H (0.02-0.50) K/mm3 Baso # (Auto) 0.09 (0.00-0.10) K/mm3 Abs Immat Gran (auto) 0.04 H (0.00-0.00) K/mm3 Absolute Neuts (auto) 2.61 (1.70-7.20) K/mm3 Absolute Nucleated RBC 0.00 (0.00-0.00) K/mm3 Nucleated RBC % 0.0 (0-0.0) % D-Dimer 0.84 H (0.19-0.50) mg/L Sodium 142 (137-145) mmol/L Potassium 3.6 (3.4-5.0) mmol/L Chloride 108 H (98-107) mmol/L Carbon Dioxide 23 (22-30) mmol/L Anion Gap 11 (4-12) mmol/L BUN 20 H (7-17) mg/dL Creatinine 0.81 (0.7-1.0) mg/dL Estim Creat Clear Calc 49 ml/min Estimated GFR > 60 (59 - ) Glucose 94 (65-110) mg/dL Calculated Osmolality 296 H (285-295) mOsm/kg Lactic Acid 1.1 (0.4-2.0) mmol/L Calcium 10.1 (8.4-10.2) mg/dL Total Bilirubin 0.6 (0.2-1.3) mg/dL AST 36 (14-36) U/L ALT 23 (6-35) U/L Alkaline Phosphatase 107 (38-126) U/L Troponin I < 0.012 (0.000-0.034) ng/mL NT-Pro-B Natriuret Pep 21 (19.9-100) pg/mL Total Protein 7.6 (6.3-8.2) g/dL Albumin 4.4 (3.5-5.1) g/dL Influenza A (RT-PCR) Negative (Negative) Influenza B (RT-PCR) Negative (Negative) RSV (RT-PCR) Negative (Negative) SARS-CoV-2 RNA (RT-PCR) Negative (Negative) Imaging Data Attestation: I personally reviewed and interpreted this imaging study as follows: Radiologist's impression: Chest x-ray is negative for acute process CT chest PE study shows negative for PE ECG Data EKG #1: Attestation: I personally reviewed and interpreted this ECG as follows: ECG completion date: 08/05/25 ECG completion time: 21:58 EKG Interpretation: normal rate, sinus rhythm, no ectopy, non-specific ST changes, normal QRS, normal QT, left axis and NL axis Discharge Plan Discharge Clinical Impression: Acute exacerbation of chronic obstructive pulmonary disease, Hypoxia Patient Disposition: Acute Care Hospital [facility] Condition: Stable Patient Language: Palauan Prescriptions: No Action fluticasone propion-salmeterol [Advair Diskus] 250-50 mcg/dose blister with device 1 inh inhalation Q12H Qty: 60 2RF ipratropium-albuterol 0.5 mg-3 mg(2.5 mg base)/3 mL solution for nebulization 3 ml INHALATION QID Qty: 30 0RF albuterol sulfate [Ventolin HFA] 90 mcg/actuation HFA aerosol inhaler 2 puff inhalation QID Qty: 8.5 0RF Calcium 600 600 mg PO DAILY dupilumab 300 mg subcut [id number] formoterol fumarate 20 mcg inhalation DAILY azithromycin [Zithromax] 250 mg tablet 250 mg PO DAILY 4 Days Qty: 4 0RF Rx Instructions: start on day 2 of therapy amlodipine 5 mg tablet 5 mg PO DAILY famotidine 20 mg Tablet 20 mg PO DAILY aspirin 81 mg Capsule 81 mg PO DAILY meloxicam 7.5 mg tablet budesonide 0.5 mg/2 mL suspension for nebulization azithromycin [Zithromax Z-Jerson] 250 mg tablet See Rx Instructions .ROUTE .COMPLEX Qty: 6 0RF Rx Instructions: For 250 mg dose pack: take 500 mg today (day 1), then 250 mg for 4 days (days 2-5) Follow-up/Referrals: Carlos,Torito Holley MD [Primary Care Provider, Unknown] Time of Disposition: 02:11
[2025-08-05 21:47] LABS: Hematocrit 44.1 % (35.0-42.0); Hemoglobin 14.4 g/dL (11.7-13.8); Immature Granulocyte Percent A 0.5 % (0.0-0.0); Lymphocytes Absolute Auto 3.48 K/mm3 (1.10-4.50); Mean Corpuscular HGB Conc 32.7 g/dL (32-36); Mean Corpuscular Hemoglobin 29.4 pg (27.0-31.0); Mean Corpuscular Volume 90.0 fL (78.0-102.0); Nucleated Red Blood Cells Absolute Auto 0.00 K/mm3 (0.00-0.00); Nucleated Red Blood Cells Perc 0.0 % (0-0.0); Platelet Count Result 331 K/mm3 (150-420); Red Blood Count 4.90 M/mm3 (4.20-5.40); White Blood Count 7.8 K/mm3 (4.8-10.8)
[2025-08-05] MEDS: IPRATROPIUM 0.5 MG/ALBUTEROL SULFATE 2.5 MG AMPUL.NEB 3 ML INHALATION (21:50)
[2025-08-05 21:59] LABS: Alanine Aminotransferase 23 U/L (6-35); Albumin Level 4.4 g/dL (3.5-5.1); Alkaline Phosphatase 107 U/L (38-126); Anion Gap 11 mmol/L (4-12); Aspartate Amino Transferase 36 U/L (14-36); Bilirubin,Total 0.6 mg/dL (0.2-1.3); Blood Urea Nitrogen 20 mg/dL (7-17); Calcium 10.1 mg/dL (8.4-10.2); Carbon Dioxide 23 mmol/L (22-30); Chloride 108 mmol/L (98-107); Estimated CRCL calculation 49 ml/min; Estimated Glomerular Filt Rate > 60; Glucose 94 mg/dL (65-110); Osmolality Calculated 296 mOsm/kg (285-295); Potassium 3.6 mmol/L (3.4-5.0); Sodium 142 mmol/L (137-145); Total Protein 7.6 g/dL (6.3-8.2)
[2025-08-05 22:11] LABS: NT Pro B Type Natriuretic Pept 21 pg/mL (19.9-100); Troponin I < 0.012 ng/mL (0.000-0.034)
[2025-08-05 22:23] LABS: Influenza A QL RT-PCR Negative (Negative); Influenza B QL RT-PCR Negative (Negative); RSV RNA, RT-PCR Negative (Negative); SARS-CoV-2 RNA PCR Negative (Negative)
--- NOTE | 2025-08-05 23:07 | PC.NURSE ---
Pt resting, she has dry hacking cough, Pt informed on need for chest CTA for PE study due to elevated Ddimer. VSS.
--- NOTE | 2025-08-05 23:10 | PC.NURSE ---
Pt taken to CT.
[2025-08-06] VITALS (17 sets, daily range): BP systolic 91–120; BP diastolic 50–75; PULSE 66–107; RESP 15–36; TEMP 36.4–36.6; O2SAT 89–96; BMI 23.8
--- NOTE | 2025-08-06 | PC.NURSE ---
Pt sleeping, RR even and nonlabored, VSS continuing to monitor and await CT results.
--- NOTE | 2025-08-06 01:39 | PC.NURSE ---
Pt sitting up in bed, coughing, states she is having trouble breathing again. Lungs noted w/ bilat wheezing, pt tachypneic w/ RR 34. Spo2 at 90% on 2L NC. Order obtained for breathing tx.
[2025-08-06] MEDS: IPRATROPIUM 0.5 MG/ALBUTEROL SULFATE 2.5 MG AMPUL.NEB 3 ML INHALATION ×3 (01:43→10:30)
--- NOTE | 2025-08-06 02:08 | PC.NURSE ---
Discussed POC for admit for 23 hr obs. Pt agreeable to staying for obs. Pt VSS and reports feeling some better after neb tx.
--- NOTE | 2025-08-06 02:23 | PC.NURSE ---
Pt will go to RM 210, report given to ERICK Steiner
[2025-08-06] MEDS: SODIUM CHLORIDE 0.9% IV 1,000 ML 100 ML IV CONT (02:30)
[2025-08-06] MEDS: BENZONATATE 100 MG CAPSULE 200 MG PO (03:54)
--- NOTE | 2025-08-06 04:23 | ADMGEN ---
This patient, Gabbie Chris, was admitted to 2nd Floor Room 210-1. Patient/family oriented to hospital policies and general routines including ID bracelet, bed and alarms, pain management, procedures, bathroom and other care routines, personal items, smoking policy, room service/diet, and visiting hours. Information on how to activate the Rapid Response Team has been discussed. Patient/Family are encouraged to report perceived risks to care and to ask questions if they do not understand what they are told or what they should do.
[2025-08-06 05:56] LABS: Hematocrit 41.2 % (35.0-42.0); Hemoglobin 13.4 g/dL (11.7-13.8); Immature Granulocyte Percent A 0.9 % (0.0-0.0); Lymphocytes Absolute Auto 0.90 K/mm3 (1.10-4.50); Mean Corpuscular HGB Conc 32.5 g/dL (32-36); Mean Corpuscular Hemoglobin 29.5 pg (27.0-31.0); Mean Corpuscular Volume 90.7 fL (78.0-102.0); Nucleated Red Blood Cells Absolute Auto 0.00 K/mm3 (0.00-0.00); Nucleated Red Blood Cells Perc 0.0 % (0-0.0); Platelet Count Result 316 K/mm3 (150-420); Red Blood Count 4.54 M/mm3 (4.20-5.40); White Blood Count 6.3 K/mm3 (4.8-10.8)
[2025-08-06 06:12] LABS: Alanine Aminotransferase 21 U/L (6-35); Albumin Level 3.8 g/dL (3.5-5.1); Alkaline Phosphatase 82 U/L (38-126); Anion Gap 10 mmol/L (4-12); Aspartate Amino Transferase 26 U/L (14-36); Bilirubin,Total 0.4 mg/dL (0.2-1.3); Blood Urea Nitrogen 16 mg/dL (7-17); Calcium 9.4 mg/dL (8.4-10.2); Carbon Dioxide 22 mmol/L (22-30); Chloride 111 mmol/L (98-107); Estimated CRCL calculation 63 ml/min; Estimated Glomerular Filt Rate > 60; Glucose 125 mg/dL (65-110); Osmolality Calculated 298 mOsm/kg (285-295); Potassium 4.1 mmol/L (3.4-5.0); Sodium 143 mmol/L (137-145); Total Protein 6.7 g/dL (6.3-8.2)
--- OUTSIDE RECORDS SUMMARY | 2025-08-06 07:42 | XMS_ITS | Clinical Summary ---
Author Organization [facility] Address [address] [place] [address] Phone Care Team Providers Care Proj Mgr Name Role Phone Torito Gonzalez MD Primary Care Provider [phone] Guille Collier MD Unavailable Allergies Active Allergy [...] Medicine - [place] [address] [place] [address] Torito Gonzalez MD Medication Refill 07/24/2025 Patient Outreach [facility] [phone] Amina James Care Management 07/19/2025 2:00 PM CDT Office Visit [facility] - [place] [address] [place] [address] Torito Gonzalez MD Chronic sinusitis, unspecified location (Primary Dx); COPD exacerbation (HCC); Essential (primary) hypertension Discharge Disposition: Discharged to home or Selfcare 07/19/2025 Travel 07/16/2025 [facility] [address] [place] [phone] Torito Gonzalez MD Follow-up 06/08/2025 [facility] [address] [place] [phone] Torito Gonzalez MD Medication Refill 05/22/2025 Patient Outreach [facility] [employer] [facility] [address] [place] [id number] Felisa Jacob RN Patient Outreach (High Risk MSSP ) 05/20/2025 8:00 AM CDT Office Visit [facility] [address] [place] [address] Torito Gonzalez MD Acute non-recurrent sinusitis, unspecified [...] Adjuvanted 08/17/2023 Pneumococcal conjugate PCV20 , polysaccharide AVE847 conjugate, adjuvant, PF 10/07/2022 Family History Medical [...] 0.6 oz pur e alcohol) [facility] Utilities Answer Date Recorded In the [...] any clubs o r organizations such as roman catholic groups, unions, fraternal or athletic groups, [...] Total Score - Questions 1-9 0 01/28 [facility] [place] of Occupat ional Health - Occupational Stress [...] slept in a care home (including now)? Patient declined 11/16/2023 Housing Stability [...] in the past 12 m [facility], were you homeless or living in a care home (including now)? No 02/25/2025 Education Answer Date Recorded What is the highest level of school you have completed or the highest degree you have received? Master's degree (e.g., MA, MS, Nathalia, MEd, HOG RINGER, VANESSA) 02/10/2023 Sexually Active Control Partners Comments [...] Primary Care - [place] [address] [place] [phone] Torito Gonzalez MD [address] [place] [address] Health Maintenance Due Date Last Done Comments [...] CDT MAMMOGRAM BILATERAL GENERIC 10/26/2021 12:00 AM UPHOLSTERY CUTTER from Last 3 Months or Most Recently Relevant to Health Maintenance Results * HM COLONOSCOPY (04/22/2022 12:00 AM CDT) 04/22/2022 us Not On File Provider PROCEDURE/MINOR SURGICAL OR DERABLES Final Result SCAN * MAMMOGRAM BILATERAL MISCELLANEOUS (10/26/2021 12:00 AM UPHOLSTERY CUTTER) 10/26/2021 us Not On File Provider IMG MAMMO ORDERABLES Final Result Performing Organization Address City/[facility]/ZIP Co de Phone Number SCAN from Last 3 Months or Most Recently Relevant to Health Maintenance [place] [address] Care Teams Proj Mgr Relationship Specialty Start Date End Date Torito Gonzalez MD PCP - General Internal Medicine 02/01/20 Guille Collier MD [address] [place] [address] Consulting Physician Pulmonary Disease 12/06/22
--- OUTSIDE RECORDS SUMMARY | 2025-08-06 07:42 | XMS_ITS | Encounter Summary ---
Author Organization [facility] Address [address] [place] [address] Phone Care Team Providers Care Kennel Operator Name Role Phone Torito Gonzalez MD Primary Care Provider [phone] Sol Lincoln MD Unavailable [phone] Vitaly Esquivel MD Unavailable [phone] Encounter Details Date Type Department Care Team (Late st Contact Info) Description 06/14/2025 Results Follow-Up [facility] Medicine Allergy and Immunology [address] [place] [address] Giana Joshi MD [address] [facility] [address] [place] [address] Differential, auto Social History Tobacco Use Types [...] week 01/18/2023 How often do you attend [facility] or mormonism services? 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 Gender Identity Not on file Sexual Orientation Not on file documented as of this encounter Plan of Treatment Not on file documented as of this encounter Visit Diagnoses Not on filedocumented in this encounter Additional Health Concerns Infection Onset Date Last Indicated Resolved Time COVID: Suspected 07/08/2025 07/08/2025 07/08/2025 5:02 PM CDT documented as of this encounter Care Teams Kennel Operator Relationship Specialty Start Date End Date Torito Gonzalez MD [address] [place] [address] PCP - General 02/25/17 [place] [address] [address] Consulting Physician Pulmonary Disease 01/30/24 Vitaly Esquivel MD [address] [place] [address] Consulting Physician Family Medicine 07/11/25 documented as of this encounter
--- OUTSIDE RECORDS SUMMARY | 2025-08-06 07:43 | XMS_ITS | Encounter Summary ---
Author Organization [facility] Healthcare Address [address] [place] [address] Care Team Providers Care Wire Repairer Name Role Phone Torito Gonzalez MD Primary Care Provider [phone] Sol Lincoln MD Unavailable [phone] Vitaly Esquivel MD Unavailable [phone] Reason for Visit * Reason Onset Date Comments DEXA/Prolia 07/26/2025 Encounter Details Date Type Department Care Team (Late st Contact Info) Description 07/26/2025 Telephone [facility] [address] [facility] [address] [place] [address] eLticia Montes De Oca RN DEXA/Prolia Social History [...] often do you attend chur ch or orthodox services? More than 4 times per [...] or slept in a intermediate (including now)? No 01/18/2023 Social Connection and Isolation Panel Answer Date Recorded In a typical week, how many times do you talk on the phone with family, friends, or neighbors? More than three times a week 07/09/2025 How often do you get togethe r with friends or relatives? More than three times a week 07/09/2025 How often do you attend chur or orthodox services? More than 4 times per [...] any time in the past 12 m [facility], were you homeless or living in a intermediate (including now)? 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
--- OUTSIDE RECORDS SUMMARY | 2025-08-06 07:43 | XMS_ITS | Encounter Summary ---
Author Organization [facility] Healthcare Address [address] [place] [address] Care Team Providers Care Web Development Manager Name Role Phone Torito Gonzalez MD Primary Care Provider [phone] Sol Lincoln MD Unavailable [phone] Vitaly Esquivel MD Unavailable [phone] Reason for Visit * Reason Onset Date Comments Scheduling Appointments 10/23/2021 no answe r to confirm mamm appointment Encounter Details Date Type Department Care Team (Late st Contact Info) Description 10/23/2021 Telephone [facility] [address] [place] [address] Maryanne Das RT Scheduling Appointments (no answer [...] on file Legal Sex Female 1:11 AM [facility] Gender Identity Not on file Sexual Orientation Not on file documented as of this encounter Plan of Treatment Not on file documented as of this encounter Visit Diagnoses Not on filedocumented in this encounter Additional Health Concerns Infection Onset Date Last Indicated Resolved Time COVID: Suspected 07/08/2025 07/08/2025 07/08/2025 5:02 PM CDT documented as of this encounter Care Teams Web Development Manager Relationship Specialty Start Date End Date Torito Gonzalez MD [address] [place] [address] PCP - General 02/25/17 [place] [id number] [address] Consulting Physician Pulmonary Disease 01/30/24 Vitaly Esquivel MD [address] [place] [address] Consulting Physician Family Medicine 07/11/25 documented as of this encounter
--- OUTSIDE RECORDS SUMMARY | 2025-08-06 07:43 | XMS_ITS | Clinical Summary ---
Author Organization [facility] Address [address] [place] [address] Care Team Providers Care Language Arts Teacher Name Role Phone Torito Gonzalez MD Primary Care Provider [phone] Sol Lincoln MD Unavailable Vitaly Esquivel MD Unavailable [phone] Allergies Active Allergy Reactions Criticality Noted Date [...] (04/15/2022): Added automatically from request for surgery [id number] Prinzmetal's angina 04/17/2021 Assessment & Plan (06/10/2025 [...] (12/18/2018): Added automatically from request for surgery [id number] Keratosis, senilis 01/10/2017 Benign neoplasm of soft [...] Description 07/26/2025 8:50 AM CDT Clinical Support [facility]ology [address] [facility] [address] [place] [phone] Polyp, nasal (Primary Dx) 07/26/2025 Telephone Eldridge makemoji [address] [facility] [address] [place] [address] Leticia Montes De Oca RN DEXA/Prolia 07/24/2025 12:07 PM CDT - 07/24/2025 11:59 PM CDT Hospital Encounter [facility] [address] [place] [address] Osteoporosis without current pathological fracture, unspecified osteoporosis type Discharge Disposition: Discharge to home or self care 07/19/2025 [facility] Post Discharge Follow up phone call [facility] Non-Oncology Infusion [address] [place] [address] Cheryl Vallejo, ERICK 07/17/2025 [facility] Post Discharge Follow up phone call [facility] Non-Oncology Infusion [address] [place] [address] Cheryl Vallejo, ERICK 07/08/2025 3:49 PM CDT - 07/11/2025 3:24 PM CDT Hospital Encounter [address] [address] Zion Dowling III, MD Onaghise, Jude, MD Rudomiotov, Olga, MD COPD exacerbation (HCC) (Primary Dx) Discharge Disposition: Discharge to home or self care 07/08/2025 2:20 PM CDT Office Visit [facility]) - [facility] Medicine ENT [address] [facility] Medical Office Building [address] [place] [address] Lydia Rojas MD COPD exacerbation (HCC) (Primary Dx); Polyp of nasal cavity; Chronic pansinusitis 07/02/2025 Telephone [facility] Medicine Allergy and Immunology [address] [facility] [address] [place] [phone] Jyoti Dorantes RN [employer]olair New Start 06/17/2025 Orders Only [facility] Medicine ENT [id number] [place] [address] Medical Office Building [address] [place] [address] Lydia Rojas MD 06/14/2025 Results Follow-Up [facility] Medicine Allergy and Immunology [address] [facility] [address] [place] [address] Giana Joshi MD Differential, auto 06/10/2025 1:30 PM CDT Lab [facility] Medicine Infectious Diseases [address] [facility] [address] [place] [address] 06/10/2025 1:26 PM CDT - 06/10/2025 11:59 PM CDT Hospital Encounter [address] [address] Nasal polyps; Chronic sinusitis, unspecified location Discharge Disposition: Discharge to home or self care 06/10/2025 1:00 PM CDT Office Visit [facility] All[facility] [address] [facility] [address] [place] [address] Giana Joshi MD Nasal polyps (Primary Dx); Chronic sinusitis, unspecified location; Persistent asthma without complication, unspecified asthma severity; Panlobular emphysema (HCC) 06/10/2025 9:15 AM CDT Office Visit [place] [facility] [address] [place] [address] [address] [place] [address] Jacob Espitia MD Primary hypertension (Primary Dx); Prinzmetal's angina 06/05/[address] [place] [address] Leticia Montes De Oca RN DEXA Scan 05/30/2025 11:40 AM CDT Office Visit [facility]) - [facility] Medicine ENT [address] [place] [address] Medical Office Building [address] [place] [address] Lydia Rojas MD Nasal polyps [...] any clubs o r organizations such as oriental orthodox groups, unions, fraternal or athletic groups, [...] in a jail (including now)? No 01/18/2023 Social Connection and [...] any clubs o r organizations such as oriental orthodox groups, unions, fraternal or athletic groups, [...] any time in the past 12 [facility], were you homeless or living in a jail (including now)? No 07/09/2025 [facility] Utilities Answer Date Recorded In the past 12 months has e [employer], gas, oil, or water company threatened to [...] on file Legal Sex Female 1:11 AM NECK FITTER Gender Identity Not on file Sexual Orientation [...] polyps Chronic sinusitis, unspecified location ALLERGEN SYCAMORE GEORGIAN (TREE) IGE Routine 06/10/2025 1:26 PM CDT [...] polyps Chronic sinusitis, unspecified location ALLERGEN PLANTAIN CAMEROONIAN (WEED) IGE Routine 06/10/2025 1:26 PM CDT [...] polyps Chronic sinusitis, unspecified location ALLERGEN COCKROACH GEORGIAN (INSECT) IGE Routine 06/10/2025 1:26 PM CDT [...] Read Routine (OP Routine) 12/26/2024 7:47 AM NECK FITTER Visit for screening mammogram COLONOSCOPY 04/22/2022 7:32 [...] F with given history of: Osteoporosis screening Catch [place] Cleaner/Model: [employer]annon[employer] Discovery SL (S/N [id number]) Facility LSC value of 0.022 for the [...] Josh Avalos M.D. MF: ANTOINE Report ID: [id number] Reading Location: [place] [address] Procedure Note Josh Avalos MD - 07/24/2025 EXAM DESCRIPTION: DEXA AXIAL SKELETON BONE DENSITY 1 OR MORE SITES REASON FOR STUDY: 70 y/o year old F with given history of:Osteoporosis screening [place]atch Basin Cleaner/Model: [employer] SL (S/N [id number]) Facility LSC value of 0.022 for the [...] Josh Avalos M.D. MF: ANTOINE Report ID: [id number] Reading Location: [place] [address] Alhaji Payan MD IMG DXA PROCEDURES Final [...] ORDERABLES Final Re sult Performing Organization Address [facility]/ZIP Co de Phone Number ESPERANZA DOUGLAS [address] Department [place] [place] [address] * (ABNORMAL) CBC without differential [...] ORDERABLES Final Re sult Performing Organization Address City/[facility]/ZIP Co de Phone Number ESPERANZA DOUGLAS [address] [place] [address] * (ABNORMAL) Basic metabolic panel (07/11/2025 4:00 AM CDT) Sodium 139 135 - 145 mmol/L Potassium, pl 4.0 3.3 - 4.9 mmol/L [facility] Chloride 105 97 - 110 mmol/L [facility] CO2 20(L) 22 - 32 mmol/L [facility] Anion gap 14 2 - 15 mmol/L [facility] BUN 18 6 - 25 mg/dL [facility] Creatinine 0.65 0.60 - 1.10 mg/dL [facility] Glucose 127 70 - 199 mg/dL [facility] Comment: Interpretive Data Fasting glucose >/= [...] 2022. Calcium 9.4 8.5 - 10.3 mg/dL [facility] Blood 07/11/2025 4:00 AM CDT 07/11/2025 5:42 AM CDT us Brit Mccormack MD LAB BLOOD ORDERABLES Final Re sult [facility] [address] Department [place] [address] * eGFR (07/10/2025 4:39 AM CDT) eGFR [...] ORDERABLES Final Re sult Performing Organization Address [facility] Co de Phone Number ESPERANZA DOUGLAS [address] [place] [address] * (ABNORMAL) CBC without differential [...] ORDERABLES Final Re sult Performing Organization Address [facility] Co de Phone Number ESPERANZA DOUGLAS [address] [place] [address] * (ABNORMAL) Basic metabolic panel (07/10/2025 4:39 AM CDT) Sodium 138 135 - 145 mmol/L Potassium, pl 3.9 3.3 - 4.9 mmol/L [facility] Chloride 104 97 - 110 mmol/L [facility] CO2 20(L) 22 - 32 mmol/L [facility] Anion gap 14 2 - 15 mmol/L [facility] BUN 23 6 - 25 mg/dL [facility] Creatinine 0.80 0.60 - 1.10 mg/dL [facility] Glucose 120 70 - 199 mg/dL [facility] Comment: Interpretive Data Fasting glucose >/= [...] 2022. Calcium 9.5 8.5 - 10.3 mg/dL [facility] Blood 07/10/2025 4:39 AM CDT 07/10/2025 4:49 AM CDT us Brit Mccormack MD LAB BLOOD ORDERABLES Final Re sult [facility] [address] Department [place] [address] * CT Chest PE (CTA) W Contrast [...] MD LAB BLOOD ORDERABLES Final Re sult [facility] [address] Department [place] [address] * (ABNORMAL) CBC without differential (07/09/2025 4:34 AM CDT) WBC 5.33 3.80 - 9.90 K/cumm Hgb 14.3 11.9 - 15.5 g/dL [facility] Hct 43.0 35.6 - 45.5 % [facility] Plt 258 150 - 400 K/cumm [facility] MPV 10.8 9.1 - 12.3 fL [facility] RBC 4.76 3.90 - 5.20 M/cumm [...] BLOOD ORDERABLES Final Re sult [facility] DOUGLAS [address] Department [place] [address] * Basic metabolic panel (07/09/2025 4:34 AM CDT) Sodium 139 135 - 145 mmol/L Potassium, pl 4.4 3.3 - 4.9 mmol/L [facility] Chloride 106 97 - 110 mmol/L [facility] CO2 22 22 - 32 mmol/L [facility] Anion gap 11 2 - 15 mmol/L [facility] BUN 16 6 - 25 mg/dL [facility] Creatinine 0.70 0.60 - 1.10 mg/dL [facility] Glucose 145 70 - 199 mg/dL [facility] Comment: Interpretive Data Fasting glucose >/= [...] 2022. Calcium 9.6 8.5 - 10.3 mg/dL [facility] Blood 07/09/2025 4:34 AM CDT 07/09/2025 4:53 AM CDT Brit Mccormack MD LAB BLOOD ORDERABLES Final Re sult [facility]GL[facility] [address] Department [place] [address] * Troponin T high-sensitivity 6-hour (07/08/2025 11:30 PM CDT) Trop T hs 7 <=14 ng/L Comment: Interpretive Data For further hscTnT resources including the diagnostic algorithm and an aid in interpretation, copy and paste this link: https://nrl.testEarlyShares.org/show/hsTrop Current Interpretive Data last revised 2020. Trop T hs delta 0 ng/L [facility] Trop T hs interp Insignificant [facility] Blood 07/08/2025 11:3 0 PM CDT 07/08/2025 11:33 PM CDT Chloe Humphries MD LAB BLOOD ORDERABLES Final Result Performing Organization Address [facility] Co de Phone Number ESPERANZA DOUGLAS [address] [place] [address] * Troponin T high-sensitivity 2-hour (07/08/2025 7:40 PM CDT) Trop T hs 8 <=14 ng/L Comment: Interpretive Data For further hscTnT resources including the diagnostic algorithm and an aid in interpretation, copy and paste this link: https://nrl.testEarlyShares.org/show/hsTrop Current Interpretive Data last revised 2020. Trop T hs delta 1 ng/L [facility] Trop T hs interp Insignificant [facility] Blood 07/08/2025 7:40 PM CDT 07/08/2025 8:03 PM CDT Chloe Humphries MD LAB BLOOD ORDERABLES Final Result Performing Organization Address [facility] Co de Phone Number ESPERANZA DOUGLAS [address] [place] [address] * (ABNORMAL) D-dimer, quantitative (07/08/2025 7:40 PM [...] ORDER BHUMIKA Final Result Performing Organization Address [facility] de Phone Number ESPERANZA DOUGLAS [address] [place] [employer] [place] [address] * Blood gas, venous (07/08/2025 [...] ORDER BHUMIKA Final Result Performing Organization Address [facility] Co de Phone Number ESPERANZA MISAEL [address] [place] [employer] [place] [address] * Troponin T high-sensitivity series [...] Edited Result - Final Performing Organization Address City/[facility]/ZIP Co de Phone Number ESPERANZA DOUGLAS [address] [address] * eGFR (07/08/2025 4:51 PM [...] BLOOD ORDERABLES Final Result Performing Organization Address City/[facility]/[place] [address] Department [employer] [place], [place] [address] * (ABNORMAL) Differential, auto (07/08/2025 4:51 PM CDT) Neutrophil abs 3.29 1.50 - 6.50 K/cumm Imm gran abs 0.01 0.00 - 0.10 K/cumm [facility] Lymphocyte abs 3.17 0.80 - 3.30 K/cumm [facility] Monocyte abs 0.90(H) 0.20 - 0.80 K/cumm [facility] Eosinophil abs 1.94(H) 0.00 - 0.50 K/cumm [facility] Basophil abs 0.10 0.00 - 0.10 K/cumm [facility] Neutrophil pct 34.9 % [facility] Comment: Interpretive Data Percent cell count reference ranges are not reported, since discordance with absolute values may lead to misinterpretation of CBC data. Current Interpretive Data was last revised on 2018. Imm gran pct 0.1 % [facility] Comment: Interpretive Data Percent cell count reference ranges are not reported, since discordance with absolute values may lead to misinterpretation of CBC data. Current Interpretive Data was last revised on 2018. Lymphocyte pct 33.7 % [facility] Comment: Interpretive Data Percent cell count reference ranges are not reported, since discordance with absolute values may lead to misinterpretation of CBC data. Current Interpretive Data was last revised on 2018. Monocyte pct 9.6 % [facility] Comment: Interpretive Data Percent cell count reference ranges are not reported, since discordance with absolute values may lead to misinterpretation of CBC data. Current Interpretive Data was last revised on 2018. Eosinophil pct 20.6 % [facility] Comment: Interpretive Data Percent cell count reference ranges are not reported, since discordance with absolute values may lead to misinterpretation of CBC data. Current Interpretive Data was last revised on 2018. Basophil pct 1.1 % [facility] Comment: Interpretive Data Percent cell count reference ranges are not reported, since discordance with absolute values may lead to misinterpretation of CBC data. Current Interpretive Data was last revised on 2018. Blood 07/08/2025 4:51 PM CDT 07/08/2025 5:29 PM CDT Chloe Humphries MD LAB BLOOD ORDERABLES Final Result Performing Organization Address City/[facility] Co de Phone Number ESPERANZA DOUGLAS [address] Department [place] [address] * (ABNORMAL) CBC with auto [...] ORDER BHUMIKA Final Result Performing Organization Address City/[facility] Co de Phone Number ESPERANZA DOUGLAS [address] Department [place] [address] * (ABNORMAL) Comprehensive metabolic panel (07/08/2025 4:51 [...] MD LAB BLOOD ORDER BHUMIKA Final Result [facility] [address] Department [place] [address] * XR Chest PA Lateral 2 Views [...] [facility] COVID-19 RNA Not Detected Not Detected [facility] Coronavirus 229E RNA Not Detected Not Detected [facility] Coronavirus HKU1 RNA Not Detected Not Detected [facility] Coronavirus NL63 RNA Not Detected Not Detected [facility] Coronavirus OC43 RNA Not Detected Not Detected [facility] Adenovirus DNA Not Detected Not Detected [facility] Metapneumovirus RNA Not Detected Not Detected [facility] Rhinovirus/Enterov irus RNA Not Detected Not Detected [facility] Parainfluenza 1 RNA Not Detected Not Detected [facility] Parainfluenza 2 RNA Not Detected Not Detected [facility] Parainfluenza 3 RNA Not Detected Not Detected [facility] Parainfluenza 4 RNA Not Detected Not Detected [facility] B. pertussis DNA Not Detected Not Detected [facility] B. parapertussis DNA Not Detected Not Detected [facility] C. pneumoniae DNA Not Detected Not Detected [facility] M. pneumoniae DNA Not Detected Not Detected [facility] Comment: Interpretive Data The OnBeep FilmArray Respiratory Panel (RP2.1) assay is a [...] assay has FDA clearance for testing of [employer] swabs. The performance characteristics of this assay have been determined by [facility]. Current interpretive data was last revised on 2021. Nasopharyngeal 07/08/2025 3: 14 PM CDT 07/08/2025 3:31 PM CDT Orlando MATA - 07/08/2025 5:01 PM CDT Is the Patient experiencing symptoms consistent with COVID?->Yes Surveillance testing for transplant patient?->No Zion Dowling III, MD LAB MICROBIOLOG Y - GENERAL ORDERABLES Final Result Performing Organization Address [facility] [place] [address] [address] Department [place] [address] CH * ECG 12 lead (07/08/2025 3:13 PM CDT) 07/08/2025 3:13 PM CDT Narrative [facility] - 07/09/2025 8:56 AM CDT Vent Rate: 90 bpm RR Interval: 661 msec MT Interval: 156 msec QRS Duration: 82 msec QT Interval: 340 msec QTC Interval: 388 msec P-R-T Emerado: 30 - 1 - 63 degrees IMPRESSION: SINUS RHYTHM ANTEROSEPTAL MYOCARDIAL INFARCTION , OF INDETERMINATE AGE [40+ ms Q WAVE IN V1- V4] ABNORMAL ECG Electronically Signed By: Dav Cid MD us Zion Dowling III, MD ECG ORDERABLES Final Result Performing Organization Address [facility] de Phone Number [facility] flo.do [facility] * Allergen Rat mix (animal) IgE (06/10/2025 1:26 PM CDT) Rat mix IgE <0.10 0.00 - 0.34 kUnits/L Comment:Testing performed by : [facility], [address] [place] [address]., [id number] Blood 06/10/2025 1:26 PM CDT 06/11/2025 11:52 AM CDT us Giana Joshi MD LAB BLOOD ORDERABLES Final Result Performing Organization Address [facility] [place] [address] Department [place] [address] * Allergen Mouse mix (animal) IgE (06/10/2025 1:26 PM CDT) Mouse mix IgE <0.10 0.00 - 0.34 kUnits/L Comment:Testing performed by : [facility], [address] [place] [address], [place]., [id number] Blood 06/10/2025 1:26 PM CDT 06/11/2025 11:52 AM CDT Giana Joshi MD LAB BLOOD ORDERABLES Final Result [facility] [address] Department [place] [address] * (ABNORMAL) Differential, auto (06/10/2025 1:26 PM CDT) Neutrophil abs 3.67 1.50 - 6.50 K/cumm Imm gran abs 0.02 0.00 - 0.10 K/cumm [facility] Lymphocyte abs 2.49 0.80 - 3.30 K/cumm [facility] Monocyte abs 0.82(H) 0.20 - 0.80 K/cumm [facility] Eosinophil abs 1.30(H) 0.00 - 0.50 K/cumm [facility] Basophil abs 0.11(H) 0.00 - 0.10 K/cumm [facility] Neutrophil pct 43.6 % [facility] Comment: Interpretive Data Percent cell count reference ranges are not reported, since discordance with absolute values may lead to misinterpretation of CBC data. Current Interpretive Data was last revised on 2018. Imm gran pct 0.2 % [facility] Comment: Interpretive Data Percent cell count reference ranges are not reported, since discordance with absolute values may lead to misinterpretation of CBC data. Current Interpretive Data was last revised on 2018. Lymphocyte pct 29.6 % [facility] Comment: Interpretive Data Percent cell count reference ranges are not reported, since discordance with absolute values may lead to misinterpretation of CBC data. Current Interpretive Data was last revised on 2018. Monocyte pct 9.8 % [facility] Comment: Interpretive Data Percent cell count reference ranges are not reported, since discordance with absolute values may lead to misinterpretation of CBC data. Current Interpretive Data was last revised on 2018. Eosinophil pct 15.5 % [facility] Comment: Interpretive Data Percent cell count [...] BLOOD ORDERABLES Final Result Performing Organization Address City/[facility] Co de Phone Number ESPERANZA [address] [facility] [place] [address] * Allergen Penicillium chrysogenum (mold) IgE (06/10/2025 1:26 PM CDT) Penicillium chrysogenum IgE <0.10 0.00 - 0.34 kUnits/L Comment:Testing performed by : [facility], [address] [place] [address]., [id number] Blood 06/10/2025 1:26 PM CDT 06/11/2025 11:52 AM CDT Result [facility] Giana Joshi MD LAB BLOOD ORDERABLES Final Result Performing Organization Address City/[facility] Co de Phone Number [facility] [address] [place] [address] * Allergen Lexington (tree) IgE (06/10/2025 1:26 PM CDT) Lexington IgE <0.10 0.00 - 0.34 kUnits/L Comment:Testing performed by : [facility], [address] [place] [address]., [id number] Blood 06/10/2025 1:26 PM CDT 06/11/2025 11:52 AM CDT Result [facility] Giana Joshi MD LAB BLOOD ORDERABLES Final Result ESPERANZA DOUGLAS [address] Department [place] [address] * Allergen Mountain junangel (tree) IgE (06/10/2025 1:26 PM CDT) [facility] kendra IgE <0.10 0.00 - 0.34 kUnits/L Comment:Testing performed by : [facility], [address] [place]., [address] Blood 06/10/2025 1:26 PM CDT 06/11/2025 11:52 AM CDT Giana Joshi MD LAB BLOOD ORDERABLES Final Result Performing Organization Address [facility] Co de Phone Number ESPERANZA DOUGLAS [address] Department [place] [address] * (ABNORMAL) CBC with auto differential (06/10/2025 1:26 PM CDT) [facility] WBC 8.41 3.80 - 9.90 K/cumm Hgb [...] BLOOD ORDERABLES Final Result Performing Organization Address City/[facility]/ZIP Co de Phone Number ESPERANZA DOUGLAS [address] [facility] [place] [address] * Allergen Bermuda grass (grass) IgE (06/10/2025 1:26 PM CDT) Bermuda grass IgE <0.10 0.00 - 0.34 kUnits/L Comment:Testing performed by : [facility], [address] [place] [address]., [id number] Blood 06/10/2025 1:26 PM CDT 06/11/2025 11:52 AM CDT Giana Joshi MD LAB BLOOD ORDERABLES Final Result Performing Organization Address City/[facility] Co de Phone Number ESPERANZA DUOGLAS [address] [facility] [place] [address] * Allergen Plantain uzbek (weed) IgE (06/10/2025 1:26 PM CDT) [facility] Plantain uzbek IgE <0.10 0.00 - 0.34 kUnits/L Comment:Testing performed by : [facility], [address] [place] [address]., [id number] Blood 06/10/2025 1:26 PM CDT 06/11/2025 11:52 AM CDT Giana Joshi MD LAB BLOOD ORDERABLES Final Result ESPERAN[facility] DOUGLAS [address] [facility] [place] [address] * Allergen Elm (tree) IgE (06/10/2025 1:26 PM CDT) Elm IgE <0.10 0.00 - 0.34 kUnits/L Comment:Testing performed by : [facility], [address] [place] [address]., [id number] Blood 06/10/2025 1:26 PM CDT 06/11/2025 11:52 AM CDT Giana Joshi MD LAB BLOOD ORDERABLES Final Result Performing Organization Address [facility] Co de Phone Number ESPERANZA [address] Jose E [facility] [place] [address] * Allergen Cladosporium herbarum (mold) IgE (06/10/2025 1:26 PM CDT) Cladosporium herbarum IgE <0.10 0.00 - 0.34 kUnits/L Comment:Testing performed by : [facility], [address] [place] [address]., [id number] Blood 06/10/2025 1:26 PM CDT 06/11/2025 11:52 AM CDT Giana Joshi MD LAB BLOOD ORDERABLES Final Result Performing Organization Address [facility] Co de Phone Number [facility] [address] Jose E [facility] [place] [address] * Allergen Birch common silver (tree) IgE (06/10/2025 1:26 PM CDT) Birch common silver IgE <0.10 0.00 - 0.34 kUnits/L Comment:Testing performed by : [facility], [address] [place] [address]., [id number] Blood 06/10/2025 1:26 PM CDT 06/11/2025 11:52 AM CDT Giana Joshi MD LAB BLOOD ORDERABLES Final Result Performing Organization Address City/[facility]/ZIP Co de Phone Number [facility] [address] Jose E Mont[facility] [place] [address] * Allergen Alternaria tenuis (mold) IgE (06/10/2025 1:26 PM CDT) Alternaria tenius IgE <0.10 0.00 - 0.34 kUnits/L Comment:Testing performed by : [facility], [address] [place] [address]., [id number] Blood 06/10/2025 1:26 PM CDT 06/11/2025 11:52 AM CDT Giana Joshi MD LAB BLOOD ORDERABLES Final Result Performing Organization Address City/[facility]/ZIP Co de Phone Number ESPERANZA [address] Jose E Mont[facility] [place] [address] * Allergen Aspergillus fumigatus (mold) IgE (06/10/2025 1:26 PM CDT) Aspergillus fumigatus IgE <0.10 0.00 - 0.34 kUnits/L Comment:Testing performed by : [facility], [address] [place] [address]., [id number] Blood 06/10/2025 1:26 PM CDT 06/11/2025 11:52 AM CDT Giana Joshi MD LAB BLOOD ORDERABLES Final Result Performing Organization Address City/[facility]/ZIP Co de Phone Number ESPERANZA [phone] Jose E Montoya [place] [address] * Allergen Dermatophagoides pteronyssinus (insect) IgE (06/10/2025 1:26 PM CDT) Dermatophyton pteronyssinus IgE <0.10 0.00 - 0.34 kUnits/L Comment:Testing performed by : [facility], [address] [place] [address]., [id number] Blood 06/10/2025 1:26 PM CDT 06/11/2025 11:52 AM CDT Giana Joshi MD LAB BLOOD ORDERABLES Final Result Performing Organization Address City/[facility] Co de Phone Number ESPERANZA DOUGLAS [address] Jose E [facility] [place] [address] * Allergen Dermatophagoides farniae (insect) IgE (06/10/2025 1:26 PM CDT) Dermatophyton farinae IgE <0.10 0.00 - 0.34 kUnits/L Comment:Testing performed by : [facility], [address] [place] [address]., [id number] Blood 06/10/2025 1:26 PM CDT 06/11/2025 11:52 AM CDT Giana Joshi MD LAB BLOOD ORDERABLES Final Result Performing Organization Address [facility] Co de Phone Number ESPERANZA DOUGLAS [address] Jose E [facility] [place] [place] [address] * Allergen Epithelia/dander dog (animal) IgE (06/10/2025 1:26 PM CDT) Dog dander IgE <0.10 0.00 - 0.34 kUnits/L Comment:Testing performed by : [facility], [address] [place] [address]., [id number] Blood 06/10/2025 1:26 PM CDT 06/11/2025 11:52 AM CDT Giana Joshi MD LAB BLOOD ORDERABLES Final Result Performing Organization Address City/[facility]/ZIP Co de Phone Number ESPERANZA DOUGLAS [address] Jose E [facility] [employer] [place], [place] [id number] * Allergen Cockroach english (insect) IgE (06/10/2025 1:26 PM CDT) Cockroach IgE <0.10 0.00 - 0.34 kUnits/L Comment:Testing performed by : [facility], [address] [place]., [id number] Blood 06/10/2025 1:26 PM CDT 06/11/2025 11:52 AM CDT Giana Joshi MD LAB BLOOD ORDERABLES Final Result Performing Organization Address [facility] Co de Phone Number PEEKEANU [address] Jose E [facility] [place] [address] * Allergen Epithelia/dander cat (animal) IgE (06/10/2025 1:26 PM CDT) Cat dander IgE <0.10 0.00 - 0.34 kUnits/L Comment:Testing performed by : [facility], [address] [place] [address]., [id number] Blood 06/10/2025 1:26 PM CDT 06/11/2025 11:52 AM CDT Giana Joshi MD LAB BLOOD ORDERABLES Final Result Performing Organization Address [facility] Co de Phone Number ESPERANZA [phone] Jose E [facility] [place] [address] * Allergen Ragweed short/common (weed) IgE (06/10/2025 1:26 PM CDT) Ragweed common IgE <0.10 0.00 - 0.34 kUnits/L Comment:Testing performed by : [facility], [address] [place] [address]., [id number] Blood 06/10/2025 1:26 PM CDT 06/11/2025 11:52 AM CDT Giana Joshi MD LAB BLOOD ORDERABLES Final Result Performing Organization Address City/[facility]/ZIP Co de Phone Number ESPERANZA [address] Jose E Montoya [facility] [place] [address] * Allergen Pigweed, rough (weed) IgE (06/10/2025 1:26 PM CDT) Pathologist [facility] Pigweed rough IgE <0.10 0.00 - 0.34 kUnits/L Comment:Testing performed by : [facility], [address] [place] [address]., [id number] Blood 06/10/2025 1:26 PM CDT 06/11/2025 11:52 AM CDT Giana Joshi MD LAB BLOOD ORDERABLES Final Result ESPERAZNA [address] Jose E Department [place] [address] * Allergen Nettle (weed) IgE (06/10/2025 1:26 PM CDT) [facility] Nettle IgE <0.10 0.00 - 0.34 kUnits/L Comment:Testing performed by : [facility], [address] [place] [address]., [id number] Blood 06/10/2025 1:26 PM CDT 06/11/2025 11:52 AM CDT Giana Joshi MD LAB BLOOD ORDERABLES Final Result ESPERANZA [address] Jose E Montoya Department [place] [address] * Allergen Seymour's quarter (weed) IgE (06/10/2025 1:26 PM CDT) Seymour's quarters IgE <0.10 0.00 - 0.34 kUnits/L Comment:Testing performed by : [facility], [address] [place] [address], [place]., [id number] Blood 06/10/2025 1:26 PM CDT 06/11/2025 11:52 AM CDT Giana Joshi MD LAB BLOOD ORDERABLES Final Result Performing Organization Address City/[facility]/ZIP Co de Phone Number ESPERANZA DOUGLAS [address] Jose E Montoya [facility] [place] [address] * Allergen Robert grass (grass) IgE (06/10/2025 1:26 PM CDT) Robert grass IgE <0.10 0.00 - 0.34 kUnits/L Comment:Testing performed by : [facility], [address] [place] [address]., [id number] Blood 06/10/2025 1:26 PM CDT 06/11/2025 11:52 AM CDT Giana Joshi MD LAB BLOOD ORDERABLES Final Result Performing Organization Address [facility] Co de Phone Number PEEKEANU DOUGLAS [address] Jose E Montoya [facility] [place] [address] * Allergen Alon grass (grass) IgE (06/10/2025 1:26 PM CDT) Alon grass IgE <0.10 0.00 - 0.34 kUnits/L Comment:Testing performed by : [facility], [address] [place] [address]., [id number] Blood 06/10/2025 1:26 PM CDT 06/11/2025 11:52 AM CDT Giana Joshi MD LAB BLOOD ORDERABLES Final Result PEEKEANU DOUGLAS [address] Jose E Montoya [facility] [place] [address] * Allergen Leonard (tree) IgE (06/10/2025 1:26 PM CDT) Leonard (tree) IgE <0.10 0.00 - 0.34 kUnits/L Comment:Testing performed by : [facility], [address] [place] [address]., [id number] Blood 06/10/2025 1:26 PM CDT 06/11/2025 11:52 AM CDT Giana Joshi MD LAB BLOOD ORDERABLES Final Result ESPERANZA [address] Jose E Montoya Department [place] [address] * Allergen Defiance english (tree) IgE (06/10/2025 1:26 PM CDT) Defiance IgE <0.10 0.00 - 0.34 kUnits/L Comment:Testing performed by : [facility], [address] [place] [address]., [id number] Blood 06/10/2025 1:26 PM CDT 06/11/2025 11:52 AM CDT Giana Joshi MD LAB BLOOD ORDERABLES Final Result Performing Organization Address City/[facility]/ZIP Co de Phone Number ESPERANZA [address] Jose E Montoya [facility] [place] [address] * Allergen Maple/Box elder (tree) IgE (06/10/2025 1:26 PM CDT) Maple/box elder IgE <0.10 0.00 - 0.34 kUnits/L Comment:Testing performed by : [facility], [address] [place] [address], [place]., [id number] Blood 06/10/2025 1:26 PM CDT 06/11/2025 11:52 AM CDT Giana Joshi MD LAB BLOOD ORDERABLES Final Result ESPERANZA [address] Jose E Montoya Department [place] [address] * Allergen [place] red (tree) IgE (06/10/2025 1:26 PM CDT) [place] IgE <0.10 0.00 - 0.34 kUnits/L Comment:Testing performed by : [facility], [address] [place]., [address] Blood 06/10/2025 1:26 PM CDT 06/11/2025 11:52 AM CDT Giana Joshi MD LAB BLOOD ORDERABLES Final Result Performing Organization Address [facility] Co de Phone Number ESPREANZA [address] Jose E Department [place] [address] * IgE (06/10/2025 1:26 PM CDT) Pathologist [facility] IgE 66 <=100 IUnits/mL Comment:Testing performed by : [facility], [address] [place]., [id number] Blood 06/10/2025 1:26 PM CDT 06/11/2025 10:19 AM CDT Giana Joshi MD LAB BLOOD ORDERABLES Final Result Performing Organization Address [facility] Co de Phone Number ESPERANZA DOUGLAS [address] Jose [place] [address] * Screening Mammogram Bilateral W Hector (12/26/2024 7:47 AM NECK FITTER) Anatomical Region Laterality Modality Breast Bilateral Mammography 12/26/2024 8:36 AM NECK FITTER Impressions 12/26/2024 8:36 AM NECK FITTER No evidence of malignancy in either breast. FINAL ASSESSMENT: BI-RADS Category 2: Benign. RECOMMENDATION: Recommend return for annual screening mammogram in 12 months. Electronically signed by: Dane Purdy M.D. Narrative 12/26/2024 8:36 AM NECK FITTER EXAMINATION: BILATERAL SCREENING MAMMOGRAM COMPARISON: 12/08/2022, 11/08/2022, [...] Mott MD - 04/22/2022 7:32 AM CDT [facility] Patient Name: Gabbie Chris Procedure Date: 04/22/2022 7:32 AM Date of : 1955 Admit Type: Outpatient Age: 66 Gender: Female Attending MD: Jaciel Mott M.D. Room: [facility] END[facility]COPY ROOM 2 Note Status: Finalized Patient [...] scope was passed under direct vision. TheColonoscope [id number] was introduced through the anus and advanced [...] history of colonic polyps CPT copyright 2020 [employer]. All rights reserved. The codes documented in this report are preliminary and upon distance learning program coordinator reviewmay be revised to meet current compliance requirements. Recognized by the [employer] for promoting quality in endoscopy us Jaciel Mott MD ENDOSCOPY PROCEDURES Final Re sult * Hepatitis C antibody (02/05/2019 7:21 AM CDT) Hep C Ab Negative Negative ESPERANZA LAW (TRICIA) Comment:Testing performed by : [facility], [address] [place] [address]., [id number] Blood specimen (specimen) 02/05/2019 7:21 AM CDT 02/05/2019 11:10 AM CDT Narrative ESPERANZA LAW (TRICIA) - 02/05/2019 11:58 AM CDT us Torito Gonzalez MD LAB MICROBIOLOGY - GENERAL ORDERABLES Final Result ESPERANZA LAW (TRICIA) [address] [facility] Department [place] [address] from Last 3 Months or Most Recently Relevant to Health Maintenance Insurance MEDICARE [employer] [facility] [employer] MEDICARE Advance Directives For more information, please contact: [phone] * Full Code (Latest Code Status on [...] 10:37 AM 01/15/2019 10:37 AM Care Teams Language Arts Teacher Relationship Specialty Start Date End Date Torito Gonzalez MD [address] [place] [address] PCP - General 02/25/17 [place] [address] [address] Consulting Physician Pulmonary Disease 01/30/24 Vitaly Esquivel MD [address] [place] [address] Consulting Physician Family Medicine 07/11/25
[2025-08-06] MEDS: ENOXAPARIN 40 MG/0.4 ML SYRINGE SUB-Q (08:34)
--- NOTE | 2025-08-06 08:36 | PC.NURSE ---
Report received and this RN assumed care of pt at this time. Pt resting in hospital bed with even and unlabored respirations. VS updated and WNL. Pt denies any pain, needs, or concerns. Hospital bed remains in low locked position and call light within pt's reach.
--- NOTE | 2025-08-06 09:46 | PM.SD2 ---
Same Day Admit/Disch: HPI History of Present Illness Chief complaint: COPD EXCERBATION HYPOXIA Narrative: Gabbie Chris is a 70 year old female HPI Narrative: Patient is a 70-year-old female with cough and phlegm with congestion and shortness of breath over the past week. She has had some anorexia and lack of dietary intake as well as itching. She has started a new respiratory drug once a month injection and feels this could be side effects of that medication. COPD baseline. No home oxygen. MD elicited complaint: shortness of breath and cough Pertinent past history: COPD, asthma and other (Hypertension) Onset (ago): week(s) (1) Context: occurred during exertion Timing: intermittent Severity: similar to previous episodes Exacerbating factors: lying flat, exertion, recent new medication, coughing, inspiration and allergies Relieving factors: oxygen, rest and other (Steroids) Known history of: COPD and asthma Associated symptoms: cough, wheezing, sputum production and chest congestion Treatment prior to arrival: none Related Data PMFSH Past Medical History Medical History Closed fracture of metacarpal of left hand Hypoxia Acute exacerbation of emphysema Hypertension Emphysema of lung Surgical History Surgical History History of hysterectomy Hx of sinus surgery Family History Family History Unknown Asthma Hypertension Heart disease Diabetes mellitus Neuropathy Liver cancer Throat cancer Social History Social History Social History: HISTORY OF SMOKING IN THE PAST Smoking packs per day: 0.75 Smoking cigarettes per day: 15.0 Years smoked: 30 Smoking pack-years: 22.50 Smoking status: Former smoker Tobacco type: cigarettes Second hand tobacco smoke exposure: Yes Alcohol intake: never Drinks per week: 1 Substance use: never Substance use type: prescription drug Lack of Transportation: No Lack of Food: Never True Current Housing: I Have Housing Concerned About Future Housing: No Difficulty Paying Gas/Electric Bills: No Difficulty Paying for Meds: No Currently Unemployed: No Education: Master's Degree or Higher Difficulty w/ Childcare or Family Care: No Occupation/Education: retired Gender identity (if verbalized by the patient): Female Spiritual care concerns: No Same Day Admit/Disch: Med Pre-admit Medications Home Medications ?Medication ?Instructions ?Recorded ?Confirmed ?Type amlodipine 5 mg tablet 5 mg PO DAILY 08/26/22 08/06/25 History aspirin 81 mg capsule 81 mg PO DAILY 08/26/22 08/06/25 History famotidine 20 mg tablet 20 mg PO DAILY 08/26/22 08/06/25 History albuterol sulfate 90 mcg/actuation 2 puff inhalation QID #8.5 grams 04/12/23 08/06/25 Rx aerosol inhaler (Ventolin HFA) ipratropium 0.5 mg-albuterol 3 mg 3 ml inhalation QID #30 vials 04/12/23 08/06/25 Rx (2.5 mg base)/3 mL nebulization soln Calcium 600 600 mg PO DAILY 05/08/23 08/06/25 History formoterol fumarate 20 mcg inhalation DAILY 05/08/23 08/06/25 History budesonide 0.5 mg/2 mL suspension 0.5 mg inhalation Q12H 04/18/25 08/06/25 History for nebulization benzonatate 100 mg capsule 200 mg (2 x 100 mg) PO Q8H PRN 08/06/25 Rx Cough #30 caps levofloxacin 250 mg tablet 250 mg PO DAILY #4 tabs 08/06/25 Rx methylprednisolone 4 mg tablets in See Rx Instructions PO .COMPLEX 08/06/25 Rx a dose pack (Medrol (Jerson)) #21 ea Review of Systems Review of Systems shortness of breath All systems reviewed & are unremarkable except as noted in HPI and below Exam Const: General: cooperative, healthy appearing, alert, awake and Physically active HENMT: Head: normal to inspection Eyes: General: appearance normal, both eyes and all related structures Chest: Chest palpation & inspection: normal inspection of the chest Resp: Effort & Inspection: able to speak in complete sentences Auscultation: wheezes (bilateral lower lobes ) Cardio: Rate: regular rate GI: Inspection: normal to inspection Back/Spine/Pelvis: Back: no CVA tenderness Skin: General skin exam: normal color Neuro: General: oriented to person, oriented to place, oriented to time, patient oriented x3 and gait normal Extrem: General: normal to inspection and full ROM Psych: Appearance: grossly normal and well kempt DS: Data Data Completed and Pending Labs on day of discharge: Labs from last 24 hours 08/06/25 08/05/25 08/05/25 05:51 22:32 21:44 WBC 6.3 RBC 4.54 Hgb 13.4 Hct 41.2 MCV 90.7 MCH 29.5 MCHC 32.5 RDW 14.6 H Plt Count 316 MPV 10.1 Immature Gran % (Auto) 0.9 H Neut % (Auto) 83.0 H Lymph % (Auto) 14.2 L [place] % (Auto) 1.1 L Eos % (Auto) 0.2 L Baso % (Auto) 0.6 Lymph # (Auto) 0.90 L [place] # (Auto) 0.07 L Eos # (Auto) 0.01 L Baso # (Auto) 0.04 Abs Immat Gran (auto) 0.06 H Absolute Neuts (auto) 5.25 Absolute Nucleated RBC 0.00 Nucleated RBC % 0.0 D-Dimer 0.84 H Sodium 143 Potassium 4.1 Chloride 111 H Carbon Dioxide 22 Anion Gap 10 BUN 16 Creatinine 0.62 L Estim Creat Clear Calc 63 Estimated GFR > 60 Glucose 125 H Calculated Osmolality 298 H Lactic Acid Calcium 9.4 Total Bilirubin 0.4 AST 26 ALT 21 Alkaline Phosphatase 82 Troponin I NT-Pro-B Natriuret Pep Total Protein 6.7 Albumin 3.8 Influenza A (RT-PCR) Negative Influenza B (RT-PCR) Negative RSV (RT-PCR) Negative SARS-CoV-2 RNA (RT-PCR) Negative 08/05/25 21:43 WBC 7.8 RBC 4.90 Hgb 14.4 H Hct 44.1 H MCV 90.0 MCH 29.4 MCHC 32.7 RDW 14.6 H Plt Count 331 MPV 10.2 Immature Gran % (Auto) 0.5 H Neut % (Auto) 33.7 L Lymph % (Auto) 44.9 H [place] % (Auto) 11.7 H Eos % (Auto) 8.0 H Baso % (Auto) 1.2 H Lymph # (Auto) 3.48 [place] # (Auto) 0.91 H Eos # (Auto) 0.62 H Baso # (Auto) 0.09 Abs Immat Gran (auto) 0.04 H Absolute Neuts (auto) 2.61 Absolute Nucleated RBC 0.00 Nucleated RBC % 0.0 D-Dimer Sodium 142 Potassium 3.6 Chloride 108 H Carbon Dioxide 23 Anion Gap 11 BUN 20 H Creatinine 0.81 Estim Creat Clear Calc 49 Estimated GFR > 60 Glucose 94 Calculated Osmolality 296 H Lactic Acid 1.1 Calcium 10.1 Total Bilirubin 0.6 AST 36 ALT 23 Alkaline Phosphatase 107 Troponin I < 0.012 NT-Pro-B Natriuret Pep 21 Total Protein 7.6 Albumin 4.4 Influenza A (RT-PCR) Influenza B (RT-PCR) RSV (RT-PCR) SARS-CoV-2 RNA (RT-PCR) DS: Summary Hospital Course Reason for hospitalization: COPD Exacerbation Hospital Course: This is a 70 year old that comes in shortness of breath and hypoxic . Patient was treated with IV steroids and breathing treatment as well as antibiotics . Patient was placed on oxygen for comfort. She is currently off of oxygen and has a walk study that showed she did not require any oxygen for home. Patient lungs are clear but scattered wheezes noted in lower lobe. I have instructed patient on avoid being around large crowds and smoke. Spoke with her about using inhaler and nebulizer. At this time she will be discharge home and follow up with her primary car provider. Time Spent with Patient Time attestation: Total time spent providing and/or coordinating discharge services: DS: Admitting Diagnosis Discharge Date 08/06/25 Admitting Diagnosis COPD Exacerbation , Sepsis DS: Discharge Diagnosis Discharge Diagnosis (1) Hypoxia: Code(s): R09.02 - Hypoxemia Status: Acute Assessment and Plan: no oxygen required resolved (2) Acute exacerbation of chronic obstructive pulmonary disease: Code(s): J44.1 - Chronic obstructive pulmonary disease with (acute) exacerbation Status: Acute Assessment and Plan: Medrol dose pack Levofloxacin 4 days\ continue with your breathing treatments at home follow up with your primary care provider Maki Kelly Discharge Plan Discharge Attending physician on discharge: Pete Fernando Discharging Clinician: Maria D Landa Anticipated Discharge Date/Time: 08/06/25 11:14 Patient Disposition: Home Activity: march shower Diet: regular Wound Care Instructions: follow printed instructions Patient Instructions: Antibiotic Form, COPD (Chronic Obstructive Pulmonary Disease) (DC), Chronic Lung Disease and Infection Prevention (DC) Patient Language: Qatari Stand Alone Forms: General Discharge Information Follow-up/Referrals: Carlos,Torito Holley MD [Primary Care Provider, Unknown] Referral Note: call and schedule post hospital appointment Discharge Medications: New benzonatate 100 mg Capsule 200 mg PO Q8H PRN (Reason: Cough) Qty: 30 0RF levofloxacin 250 mg tablet 250 mg PO DAILY Qty: 4 0RF methylprednisolone [Medrol (Jerson)] 4 mg tablets,dose pack See Rx Instructions .ROUTE .COMPLEX Qty: 21 0RF Rx Instructions: orally per package directions Continued ipratropium-albuterol 0.5 mg-3 mg(2.5 mg base)/3 mL solution for nebulization 3 ml INHALATION QID Qty: 30 0RF albuterol sulfate [Ventolin HFA] 90 mcg/actuation HFA aerosol inhaler 2 puff inhalation QID Qty: 8.5 0RF Calcium 600 600 mg PO DAILY formoterol fumarate 20 mcg inhalation DAILY amlodipine 5 mg tablet 5 mg PO DAILY famotidine 20 mg Tablet 20 mg PO DAILY aspirin 81 mg Capsule 81 mg PO DAILY budesonide 0.5 mg/2 mL suspension for nebulization 0.5 mg inhalation Q12H Date of admission: 08/06/25 02:13 Primary Care Provider: Carlos,Torito Holley Admitting Provider: Pete Fernando Attending physician on admission: Pete Fernando Condition: Stable
--- NOTE | 2025-08-06 10:17 | PCDIET ---
Pt ambulating in hallway with therapy and cardiopulmonary. Pt wearing a gait belt and oxygen and maintaining steady gait and even and unlabored respirations.
[2025-08-06] MEDS: ASPIRIN 81 MG ENTERIC TABLET PO (10:45)
--- NOTE | 2025-08-06 10:52 | PCRCNOTE ---
Home oxygen evaluation: Pt was able to ambulate 375ft on room air and also don and doff socks upon return to room. Spo2 levels ranged from 90-93% on room air. Heart rate 102-107. Mild sob with activity promptly recovering upon return to room. No oxygen needs appreciated at this time. Unable to determine needs at [facility].
--- NOTE | 2025-08-06 11:04 | HOMEO2EVAL ---
Evaluation was performed at [facility] Home Oxygen Evaluation RC: Home Oxygen (O2) Evaluation Start: 08/06/25 09:39 Freq: ONCE Status: Active Protocol: RPE Activity Type Activity Date Activity User E-sign Co-sign Detail Recorded Client Recorded Date Recorded By Document 08/06/25 10:10 [facility] [id number] 08/06/25 10:51 [facility] Document 08/06/25 10:48 [facility] [id number] 08/06/25 10:51 [facility] Document 08/06/25 10:50 [facility] [id number] 08/06/25 10:51 [facility] 08/06/25 08/06/25 08/06/25 10:10 10:48 10:50 Home O2 Evaluation [Oxygen] -Test Phase Resting Exercise Resting -Oxygen Delivery Room Air Room Air Room Air [Pulse Oximetry] -Pulse Oximetry (90-100 %) 91 91 93 [Pulse Rate] -Pulse Rate (60-100 beats/min) 98 107 H 102 H [Evaluation] -Activity Tolerance Excellent Excellent -Rating of Perceived Dyspnea (PD) +1 Mild, Noticeable to the Participant but Not to an Observer -Rate of Perceived Exertion (PE) 6 Very, very 11 Fairly light 9 Very light Query Text:Click the Protocol Button light to View the RPE Scale [Exercise] -Ambulation Distance (feet) 0 375 -Ambulation Distance (meters) 0 114.29 [Comments] -Home Oxygen Evaluation Comments resting Pt sits at end No oxygen needs of ambulation appreciated at and dons and this time. doffs socks as Unable to well. 92-93% determine needs at noc. [Charges] -Evaluation Charges O2 Evaluation Charge
--- NOTE | 2025-08-06 12:04 | PC.NURSE ---
This RN reviewed d/c paperwork with pt who verbalized understanding. All questions answered prior to d/c. Pt taken to front entrance via wheelchair by this RN and pt's spouse picked her up. Pt maintained steady gait and even and unlabored respirations upon d/c.
== END 2025-08-06 11:40 | disposition home or self-care (01) ==
LOC: CHSED 08-06 02:11 → CHS2ND 08-06 07:21
PROVIDERS: Admitting Provider Internal Medicine; Emergency Provider Emergency Medicine; PCP Internal Medicine; Visit Provider Internal Medicine
DX: J44.1 Chronic obstructive pulmonary disease with (acute) exacerbation (principal); R09.02 Hypoxemia; I10 Essential (primary) hypertension; Z87.891 Personal history of nicotine dependence; Z20.822 Contact with and (suspected) exposure to COVID-19
CPT/HCPCS: 36415; 71045; 71275; 80053; 83605; 83880; 84484; 85025; 85380; 87040; 87637; 93005; 94618; 94640; 96361; 96372; 96374; 96375; 96376; 97161; 99285; A9270; G0378; J1200; J1650; J2919; J7030; Q9967

== ENCOUNTER 2025-10-27 21:57 | Emergency (ER) | payer MEDICARE, OTHER, SELFPAY ==
--- NOTE | ~2025-10-27 | CT_ITS ---
EXAMINATION: CTA chest PE protocol DATE: 10/27/2025 23:58 INDICATION: Shortness of breath. TECHNIQUE: Computed tomography angiography (CTA) of the chest was performed with 100 mL Omnipaque-350 intravenous contrast timed to evaluate the pulmonary arteries. Coronal maximum intensity projection 3D-reconstructions were created by the technologist. Automated exposure control and iterative reconstruction technique were employed. The dose-length product was 205.02 mGy-cm. COMPARISON: Chest CT 08/05/2025 FINDINGS: There is mild scarring at the lung apices. There is mild atelectasis bilaterally. No pleural effusion. The heart size is normal. No pericardial effusion. There is no pulmonary embolus. Material in the bronchi in the lower lobes may be mucous plugging or aspirated material. There is kyphosis of thoracic spine. There is mild chronic anterior wedging of multiple vertebral bodies. There is severe thoracic spondylosis. IMPRESSION: 1. No pulmonary embolus. 2. Material in the bronchi in the lower lobes may be mucous plugging or aspirated material. Reviewed, dictated and finalized at location E. B DEPARTMENT MANAGER IMPRESSION: 1. No pulmonary embolus. 2. Material in the bronchi in the lower lobes may be mucous plugging or aspirat ed material.
--- NOTE | ~2025-10-27 | XR_ITS ---
EXAM/PROCEDURE: XR chest 2V HISTORY: SOB/Hx of COPD COMPARISON: August 05 TECHNIQUE: Two view(s) of the chest. FINDINGS: LUNGS: Clear of acute processes. There is hyperinflation, consistent with COPD. PLEURAL SPACES: Clear. No evidence of fluid or pneumothorax. HEART/ MEDIASTINUM: Normal in appearance. SOFT TISSUES: No significant findings. BONES: No acute osseous abnormality. Multiple wedging deformities in the thoracic spine, causing accentuated thoracic kyphosis. IMPRESSION: No acute findings. Findings consistent with COPD in the appropriate clinical setting. Reviewed, dictated and finalized at location C. TRIMMER MECHANIC IMPRESSION: No acute findings. Findings consistent with COPD in the appropriate clinical se tting.
[2025-10-27 21:57] VITALS: BP 161/82; PULSE 84; RESP 26; TEMP 36.4; O2SAT 95
--- NOTE | 2025-10-27 22:01 | ECG_ITS ---
Test Date: 2025-10-27 22:06:36 Measurements Intervals [place] Rate: 73 P: -6 MN: 156 QRS: -9 QRSD: 82 T: 27 QT: 379 QTc: 420 Interpretive Statements SINUS RHYTHM CANNOT R/O SEPTAL INFARCT, AGE INDETERMINATE CONSIDER INFERIOR INFARCT, AGE INDETERMINATE ABNORMAL ECG Compared to ECG 08/05/2025 21:33:59 No significant changes Electronically Signed On 10-28-2025 06:03:08 [employer] by Ian Reyez D.O.
--- NOTE | 2025-10-27 22:02 | ED.SOB ---
HPI - SOB/Dyspnea General Chief Complaint: Shortness of Breath/Dyspnea Stated Complaint: SHORTNESS OF BREATH Time Seen by Provider: 10/27/25 22:01 Source: patient Mode of arrival: ambulatory Limitations: no limitations History of Present Illness HPI Narrative: Patient is a 70-year-old female with shortness of breath and some chest pain this evening. She went bowling and found herself to be acutely short of breath and some chest pain. She has COPD and asthma. MD elicited complaint: shortness of breath and chest pain Pertinent past history: COPD and asthma Onset (ago): hour(s) (One) Context: other (Patient having chest pain and shortness of breath this evening) Timing: intermittent Severity: moderate Exacerbating factors: nothing Relieving factors: nothing Known history of: COPD and asthma Associated symptoms: chest pain and chest congestion Treatment prior to arrival: none Related Data Home oxygen amount: none Home Medications ?Medication ?Instructions ?Recorded ?Confirmed ?Last Taken ?Type amlodipine 5 mg tablet 5 mg PO DAILY 08/26/22 08/06/25 08/05/25 History aspirin 81 mg capsule 81 mg PO DAILY 08/26/22 08/06/25 08/05/25 History famotidine 20 mg tablet 20 mg PO DAILY 08/26/22 08/06/25 08/05/25 History Calcium 600 600 mg PO DAILY 05/08/23 08/06/25 08/05/25 History formoterol fumarate 20 mcg inhalation DAILY 05/08/23 08/06/25 08/05/25 History budesonide 0.5 mg/2 mL suspension 0.5 mg inhalation Q12H 04/18/25 08/06/25 08/05/25 History for nebulization Allergies Allergy/AdvReac Type Severity Reaction Status Date / Time amoxicillin (From Augmentin) Allergy Dyspnea / Verified 10/27/25 22:28 SOB clavulanic acid (From Allergy Dyspnea / Verified 10/27/25 22:28 Augmentin) SOB doxycycline Allergy Back Pain Verified 10/27/25 22:28 adhesive tape AdvReac Rash Verified 10/27/25 22:28 Review of Systems Review of Systems: All systems reviewed & are unremarkable except as noted in HPI and below Constitutional: Constitutional: Reports no additional constitutional complaints Eyes: Eyes: Reports no additional eye complaints ENT: Reports system reviewed and no additional complaints, except as documented Cardiovascular: Cardiovascular: Reports no additional cardiovascular complaints Respiratory: Respiratory: Reports no additional respiratory complaints Gastrointestinal: Gastrointestinal: Reports no additional gastrointestinal complaints Genitourinary: Genitourinary: Reports no additional female genitourinary complaints Musculoskeletal: Musculoskeletal: Reports no additional musculoskeletal complaints Integumentary/Breasts: Skin/Breast: Reports system reviewed and no additional complaints, except as docu Neurologic: Reports system reviewed and no additional complaints, except as documented Psychiatric: Psychiatric: Reports no additional psychiatric complaints Endocrine: Endocrine: Reports no additional endocrine complaints Hematologic/Lymphatic: Hematologic/Lymphatic: Reports no additional hematologic/lymphatic complaints Allergic/Immunologic: Allergic/Immunologic: Reports no additional allergic/immunologic complaints PMFSH Past Medical History Medical History Closed fracture of metacarpal of left hand Hypoxia Acute exacerbation of emphysema Hypertension Emphysema of lung Surgical History Surgical History History of hysterectomy Hx of sinus surgery Family History Family History Unknown Asthma Hypertension Heart disease Diabetes mellitus Neuropathy Liver cancer Throat cancer Social History Social History Social History: HISTORY OF SMOKING IN THE PAST Smoking packs per day: 0.75 Smoking cigarettes per day: 15.0 Years smoked: 30 Smoking pack-years: 22.50 Smoking status: Former smoker Tobacco type: cigarettes Second hand tobacco smoke exposure: Yes Alcohol intake: never Drinks per week: 1 Substance use: never Substance use type: prescription drug Lack of Transportation: No Lack of Food: Never True Current Housing: I Have Housing Concerned About Future Housing: No Difficulty Paying Gas/Electric Bills: No Difficulty Paying for Meds: No Currently Unemployed: No Education: Master's Degree or Higher Difficulty w/ Childcare or Family Care: No Occupation/Education: retired Gender identity (if verbalized by the patient): Female Spiritual care concerns: No Exam Const: General: healthy appearing Nutritional Appearance: well nourished Orientation/consciousness: patient oriented x3 Limitations: no limitations HENMT: Head: normal to inspection Ears: external ears normal Face/Nose/Sinus: Normal external nose present Eyes: Conjunctivae: conjunctivae normal Pupils: Equal, round and reactive pupils present EOM: EOMs intact bilaterally Neck: Neck: normal visual inspection Chest: Chest palpation & inspection: normal inspection of the chest Resp: Effort & Inspection: normal respiratory effort, not labored, no retractions, not tachypneic and no use of accessory muscles Auscultation: not clear to auscultation bilaterally, no crackles, no rales, rhonchi, no wheezes, breath sounds present and diminished lung sounds Cardio: Rate: regular rate Rhythm: regular rhythm Heart sounds: no murmurs GI: Inspection: non-distended GI Palp: Yes Soft to palpation and No Tenderness to palpation present (GI) Auscultation: normal bowel sounds : General: Yes bladder normal to palpation Skin: General skin exam: normal color Rashes: no rashes Wounds: no wounds Neuro: General: patient oriented x3, moves all extremities and no meningeal signs Extrem: General: normal to inspection, no clubbing, cyanosis or edema and no pedal edema Psych: Mental Status: mental status grossly normal Affect: normal affect Attitude: cooperative Course Vital Signs Vital signs: Vital Signs Temperature 36.4 C 10/27/25 21:57 Pulse Rate 84 10/27/25 21:57 Respiratory Rate 26 H 10/27/25 21:57 Blood Pressure 161/82 H 10/27/25 21:57 Pulse Oximetry 95 10/27/25 21:57 Oxygen Delivery Room Air 10/27/25 21:57 Temperature 36.4 C 10/27/25 21:57 Pulse Rate 92 10/28/25 04:00 Respiratory Rate 29 H 10/28/25 04:00 Blood Pressure 132/121 H 10/28/25 04:00 Pulse Oximetry 95 10/28/25 04:00 Oxygen Delivery Room Air 10/28/25 04:00 MDM - SOB/Dyspnea MDM Narrative Medical decision making narrative: Patient is a 70-year-old female with chest congestion/shortness of breath and chest pain today. Will do a cardiopulmonary workup at this time. Nebulized treatment. Steroids. Lab Data Attestation: I reviewed the patient's lab results. 10/27/25 22:55 10/27/25 22:55 Labs: Lab Results 10/27/25 10/27/25 Range/Units 22:32 22:55 WBC 9.4 (4.8-10.8) K/mm3 RBC 4.65 (4.20-5.40) M/mm3 Hgb 13.9 H (11.7-13.8) g/dL Hct 42.2 H (35.0-42.0) % MCV 90.8 (78.0-102.0) fL MCH 29.9 (27.0-31.0) pg MCHC 32.9 (32-36) g/dL RDW 14.6 H (11.6-14.4) % Plt Count 235 (150-420) K/mm3 MPV 10.5 (9.2-11.8) fl Immature Gran % (Auto) 0.3 H (0.0-0.0) % Neut % (Auto) 51.5 (50.0-70.0) % Lymph % (Auto) 35.5 (18.0-42.0) % Giles % (Auto) 12.0 H (2.0-11.0) % Eos % (Auto) 0.3 L (1.0-6.0) % Baso % (Auto) 0.4 (0.0-1.0) % Lymph # (Auto) 3.35 (1.10-4.50) K/mm3 Giles # (Auto) 1.13 H (0.10-0.90) K/mm3 Eos # (Auto) 0.03 (0.02-0.50) K/mm3 Baso # (Auto) 0.04 (0.00-0.10) K/mm3 Abs Immat Gran (auto) 0.03 H (0.00-0.00) K/mm3 Absolute Neuts (auto) 4.86 (1.70-7.20) K/mm3 Absolute Nucleated RBC 0.00 (0.00-0.00) K/mm3 Nucleated RBC % 0.0 (0-0.0) % PT 10.4 (9.50-12.1) Seconds INR 0.9 APTT 27.1 (23.9-30.70) Sec D-Dimer 0.71 H (0.19-0.50) mg/L Sodium 143 (137-145) mmol/L Potassium 3.6 (3.4-5.0) mmol/L Chloride 108 H (98-107) mmol/L Carbon Dioxide 25 (22-30) mmol/L Anion Gap 10 (4-12) mmol/L BUN 23 H (7-17) mg/dL Creatinine 0.72 (0.7-1.0) mg/dL Estim Creat Clear Calc 55 ml/min Estimated GFR > 60 (59 - ) Glucose 101 (65-110) mg/dL Calculated Osmolality 299 H (285-295) mOsm/kg Calcium 9.3 (8.4-10.2) mg/dL Total Bilirubin 0.3 (0.2-1.3) mg/dL AST 38 H (14-36) U/L ALT 32 (6-35) U/L Alkaline Phosphatase 84 (38-126) U/L Troponin I < 0.012 (0.000-0.034) ng/mL NT-Pro-B Natriuret Pep 25 (19.9-100) pg/mL Total Protein 7.7 (6.3-8.2) g/dL Albumin 4.6 (3.5-5.1) g/dL Lipase 68 (23-300) U/L Influenza A (RT-PCR) Negative (Negative) Influenza B (RT-PCR) Negative (Negative) RSV (RT-PCR) Negative (Negative) SARS-CoV-2 RNA (RT-PCR) Negative (Negative) Imaging Data Attestation: I personally reviewed and interpreted this imaging study as follows: Radiologist's impression: Chest x-ray pending final reading by radiologist shows no acute process with COPD changes CTA of the chest was negative for PE but positive for bronchiolitis and no pneumonia ECG Data EKG #1: Attestation: I personally reviewed and interpreted this ECG as follows: ECG completion date: 10/27/25 ECG completion time: 22:55 EKG Interpretation: normal rate, sinus rhythm, no ectopy, non-specific ST changes, normal QRS, normal QT and left axis Discharge Plan Discharge Clinical Impression: Asthma exacerbation in COPD, Bronchiolitis Patient Disposition: Home Condition: Stable Instructions: Bronchiolitis (ED), COPD (Chronic Obstructive Pulmonary Disease) (DC) Additional Instructions: Please follow-up with primary doctor in the next week. Please come back to the emergency room with any worse symptoms. Patient Language: Azeri Prescriptions: New methylprednisolone [Medrol (Jerson)] 4 mg tablets,dose pack See Rx Instructions .ROUTE .COMPLEX Qty: 21 0RF Rx Instructions: orally per package directions levofloxacin 500 mg tablet 500 mg PO DAILY Qty: 7 0RF No Action ipratropium-albuterol 0.5 mg-3 mg(2.5 mg base)/3 mL solution for nebulization 3 ml INHALATION QID Qty: 30 0RF albuterol sulfate [Ventolin HFA] 90 mcg/actuation HFA aerosol inhaler 2 puff inhalation QID Qty: 8.5 0RF Calcium 600 600 mg PO DAILY formoterol fumarate 20 mcg inhalation DAILY benzonatate 100 mg Capsule 200 mg PO Q8H PRN (Reason: Cough) Qty: 30 0RF levofloxacin 250 mg tablet 250 mg PO DAILY Qty: 4 0RF methylprednisolone [Medrol (Jerson)] 4 mg tablets,dose pack See Rx Instructions .ROUTE .COMPLEX Qty: 21 0RF Rx Instructions: orally per package directions amlodipine 5 mg tablet 5 mg PO DAILY famotidine 20 mg Tablet 20 mg PO DAILY aspirin 81 mg Capsule 81 mg PO DAILY budesonide 0.5 mg/2 mL suspension for nebulization 0.5 mg inhalation Q12H Follow-up/Referrals: UNKNOWN,DOCTOR [Non-Staff] Time of Disposition: 05:23
--- OUTSIDE RECORDS SUMMARY | 2025-10-27 22:22 | XMS_ITS | Encounter Summary ---
Author Organization [facility] Address [address] [place] [address] Phone Care Team Providers Care Deportation Officer Name Role Phone Torito Gonzalez MD Primary Care Provider Guille Collier MD Unavailable Encounter Details Date Type Department Care Team (Late st Contact Info) Description 08/29/2025 Results Follow-Up [facility] - [facility] - [place] [address] [place] [address] Torito Gonzalez MD [address] [place] [address] XR ESOPHAGRAM Social History Tobacco Use Types Packs/Day Years Used Date Smoking Tobacco: Former Cigarettes 0 Q uit: 12/07/2009 Passive Smoke Exposure: Past Smokeless Tobacco: Never Alcohol Use Standard Drinks/Week Comments Not Currently 0 (1 standard drink = 0.6 oz pur e alcohol) [facility] Utilities Answer Date Recorded In the past 12 months has [employer] electric, gas, oil, or water company threatened [...] week 02/25/2025 How often do you attend [facility] or confucianist services? More than 4 times per year 02/25/2025 Do you belong to any clubs o r organizations such as jewish groups, unions, fraternal or athletic groups, or [...] Total Score - Questions 1-9 0 01/28 [facility]at ional [facility] - Occupational Stress Questionnaire Answer Date [...] or slept in a longterm (including now)? Patient declined 11/16/2023 Housing Stability [...] were you homeless or living in a longterm (including now)? No 02/25/2025 Education Answer Date Recorded What is the highest level of school you have completed or the highest degree you have received? Master's degree (e.g., MA, MS, Nathalia, MEd, [employer], [employer]) 02/10/2023 Sexually Active Control Partners Comments Not Currently Comments No Sex and Gender Information Value Date Recorded Sex Assigned at Not on file Legal Sex Female 10:44 PM CDT Gender Identity Not on file Sexual Orientation Not on file documented as of this encounter Plan of Treatment Upcoming Encounters Date Type Department Care Team (Late st Contact Info) Description 01/15/2026 8:40 AM [employer] [facility] - [place] [address] [place] [id number] Torito Gonzalez MD [address] [place] [id number] documented as of this encounter Visit Diagnoses Not on filedocumented in this encounter Additional Health Concerns Assessment Noted Time PHQ-9 Depression Total Score: 0 02/26/20 25 8:15 AM CDT documented as of this encounter Care Teams Deportation Officer Relationship Specialty Start Date End Date Torito Gonzalez MD PCP - General Internal Medicine 02/01/20 Guille Collier MD [address] [place] [address] Consulting Physician Pulmonary Disease 12/06/22 documented as of this encounter
--- OUTSIDE RECORDS SUMMARY | 2025-10-27 22:22 | XMS_ITS | Clinical Summary ---
Author Organization [facility] Address [address] [place] [address] Phone Care Team Providers Care Assembler Truck Trailer Name Role Phone Torito Gonzalez MD Primary Care Provider [phone] Guille Collier MD Unavailable Allergies Active Allergy Reactions Criticality Noted Date Comments Amoxicillin Nausea 01/14/2022 Doxycycline Other (see Comments) 05/17/2023 Severe Back Pain Levofloxacin Palpitations 09/16/2022 Omalizumab Itching 08/20/2025 Medications amLODIPine (NORVASC) 5 MG Tablet Take 5 mg by mouth daily. Active aspirin 81 MG Chewable Tablet Baby Aspirin 81 mg chewable tablet Chew 1 tablet every day by oral route. Active Calcium Carbonate (CALCIUM 500 PO) Take by mouth. Activ e Denosumab (PROLIA) 60 MG/ML Solution Prefilled Syringe 60 mg by Subcutaneous route. 3 Active ipratropium-alb uterol (DUO-NEB) 0.5-2.5 (3) MG/3ML Solution 3 mL by Nebulization route 4 times daily. DX J44.9 COPD 360 mL 5 3 Active Perforomist 20 MCG/2ML Nebulizer Soln USE 1 VIAL IN NEBULIZER ONCE DAILY 3 Active budesonide (PULMICORT) 0.5 MG/2ML Suspension USE 1 VIAL IN NEBULIZER ONCE DAILY 3 Active mometasone (ELOCON) 0.1 % Solution Apply daily. Active omeprazole (PriLOSEC) 20 MG CAPSULE DELAYED RELEASE Take 1 Capsule by mouth daily. 90 Capsule 1 Active Mepolizumab (NUCALA SC) by Subcutaneous route. Active albuterol 108 (90 Base) MCG/ACT Aerosol Solution INHALE 1 TO 2 PUFFS BY MOUTH EVERY 6 HOURS NEEDED FOR WHEEZING 18 g 2 Active Active Problems Problem Noted Date Diagnosed Date Age-related osteoporosis wit hout current pathological fracture 11/19/2024 Dyspepsia 11/19/2024 GERD without esophagitis 05/17/2024 Eczema 11/16/2023 TOOTIE (obstructive sleep apnea) 12/06/2022 Centrilobular emphysema 10/07/2022 Allergic rhinitis 10/07/2022 Essential (primary) hypertension 10/02/2013 Resolved Problems Problem Noted Date Diagnosed Date Resolved Date Hyperlipidemia 10/02/2013 05/17/2024 Encounters Date Type Department Care Team Description 09/19/2025 9:00 AM CDT Office Visit [facility] [address] [place] [address] Torito Gonzalez MD Sciatica of right side (Primary Dx); Dysphagia, unspecified type Discharge Disposition: Discharged to home or Selfcare 09/19/2025 Travel 09/11/2025 Refill [facility] - Internal Medicine [facility] [address] [place] [address] Aneta Riley, [facility] Medication Refill 08/29/2025 8:01 AM CDT - 08/29/2025 11:59 PM CDT Hospital Encounter [facility] Diagnostic Radiology [address] [place] [address] Torito Gonzalez MD Discharge Disposition: Discharged to home or Selfcare 08/29/2025 Results Follow-Up [facility] [address] [place] [address] Torito Gonzalez MD XR ESOPHAGRAM 08/27/2025 Travel 08/22/2025 Refill [facility] Internal [facility] [address] [place] [address] Aneta Riley PAC Medication Refill 08/20/2025 8:00 AM CDT Office Visit [facility] [address] [place] [address] Torito Gonzalez MD Essential (primary) hypertension (Primary Dx); Dysphagia, unspecified type; Chronic right hip pain; Chronic right-sided low back pain without sciatica Discharge Disposition: Discharged to home or Selfcare 08/20/2025 Travel 08/07/2025 Telephone [facility] [address] [place] [address] Torito Gonzalez MD Results 07/30/2025 Refill [facility] [address] [place] [address] Torito Gonzalez MD Medication Refill from Last 3 Months Immunizations Immunization Administration Dates Next Due Covid-19, Mrna, Lnp-s, Pf, 30 Mcg/0.3 Ml Dose (P fizer) 02/24/2021,02/03/2021 Influenza Vaccine greater than 3 yrs 09/11/2024 Influenza Vaccine, Quadrivalent, PF 09/14/2022,1 Influenza, High-dose, Quadrivalent 09/17/2021 Influenza, Quadrivalent, Adjuvanted 08/17/2023 Pneumococcal conjugate PCV20 , polysaccharide [id number] conjugate, adjuvant, PF 10/07/2022 Family History Medical [...] drink = 0.6 oz pur e alcohol) [facility] Utilities Answer Date Recorded In the past 12 months has th e electric, gas, oil, or water [employer] threatened to shut off services in your [...] 02/25/2025 How often do you attend chur or [...] Total Score - Questions 1-9 0 01/28 [facility] - [facility] [...] money to buy more. Never true 02/26/20 Within the past 12 months, t he [...] nursing home (including now)? Patient declined 11/16/2023 Housing [...] any time in the past 12 m onths, were you homeless or living in a nursing home (including now)? No 02/25/2025 Education Answer Date Recorded What is the highest level of school you have completed or the highest degree you have received? Master's degree (e.g., MA, MS, Nathalia, MEd, PROMOTIONAL MARKETING AGENT, VANESSA) 02/10/2023 Sexually Active Control Partners Comments Not Currently Comments No Sex and Gender Information Value Date Recorded Sex Assigned at Not on file Legal Sex Female 10:44 PM CDT Gender Identity Not on file Sexual Orientation Not on file Last Filed Vital Signs Vital Sign Reading Time Taken Comments Blood Pressure 128/70 09/19/2025 8:52 AM CDT Pulse 62 09/19/2025 8:52 AM CDT Temperature 36.5 C (97.7 F) 09/19/2025 8:52 AM CDT Respiratory Rate 12 05/17/2024 8:16 AM CDT Oxygen Saturation 95% 09/19/2025 8:52 AM CDT Inhaled Oxygen Concentration - - Weight 66.2 kg (146 lb) 09/19/2025 8:52 AM CDT Height 165.1 cm (5' 5) 09/19/2025 8:52 AM CDT Body Mass Index 24.3 09/19/2025 8:52 AM CDT Plan of Treatment Upcoming Encounters Date Type Department Care Team (Late st Contact Info) Description 01/15/2026 8:40 AM CLARK DRIVER Office Visit [facility] [place] [address] [place] [address] Torito Gonzalez MD [address] [place] [address] Health Maintenance Due Date Last Done Comments Hepatitis C Virus (HCV) Screening 1955 TdaP Immunization 1955 Cologuard 1998 Immunochemical Fecal Occult Blood 09/01/2022 09/01/2021, 08/13/2020 Influenza Immunization (#1) 07/29/202508/28, 08/17/2023, 09/14/2022, Additional history exists Mammogram 12/26/2025 12/26/2024, 10/28, 10/26/2021, Additional history exists DEXA Bone Density 07/24/2027 07/24/2025, , 10/20/2020, Additional history exists Colonoscopy 04/22/2032 04/22/2022, 03/29, 04/22/2022, Additional history exists Colorectal Cancer Screening 04/22/2032 Pneumococcal Immunization (50+ years) Completed 10/07/2022 Pneumococcal Immunization Combined Discontinued 10/07/2022 Respiratory Syncytial Virus (RSV) Immunization (Adult) Completed 11/23/2023 SARS-COV-2 Immunization Discontinued 11/23/20, 02/22/2023, 11/11/2021, Additional history exists Hepatitis B Immunization Aged Out No longer eligible based on patient's age to complete this topic Human Papillomavirus (HPV) Immunization Aged Out No longer eligible based on patient's age to complete this topic Medicare Initial AWV [id number] Discontinued Meningococcal Immunization (ACWY) Aged Out No longer eligible based on patient's age to complete this topic Rotavirus Immunization Aged Out No lo nger eligible based on patient's age to complete this topic Zoster Immunization Discontinued Procedures Procedure Name Priority Date/Time Associated Diagnosis Comments EXTERNAL PAIN REFERRAL Routine 10/15/2025 12:00 AM CLARK DRIVER XR ESOPHAGRAM Routine 08/29/2025 8:48 AM CDT Dysphagia, unspecified type COMPLETE BLOOD COUNT (CBC) WITH DIFF 08/05/2025 12:00 AM CDT CTA GENERIC 08/05/2025 12:00 AM CDT XR - CHEST 08/05/2025 12:00 AM CDT HM COLONOSCOPY 04/22/2022 12:00 AM CDT MAMMOGRAM BILATERAL GENERIC 10/26/2021 12:00 AM CLARK DRIVER from Last 3 Months or Most Recently Relevant to Health Maintenance Results * EXTERNAL PAIN REFERRAL (10/15/2025 12:00 AM CLARK DRIVER) 10/15/2025 us Torito Gonzalez MD OUTPT REFERRALS EXT/INT Fin al Result SCAN * XR ESOPHAGRAM (08/29/2025 8:48 AM CDT) Anatomical Region Laterality Modality GI, Abdomen N/A Digital Radiogra phy Narrative 08/29/2025 11:07 AM CDT Exam: Esophagram Indication: Difficulty swallowing. Pain lower chest. Comparison: CT examination 10/30/2022 chest Findings: Presbyesophagus. The proximal cervical esophagus was normal. Presbyesophageal waves when the patient was prone. Small hiatal hernia. Small amount of gastroesophageal reflux was present spontaneously and with Valsalva to the level of the brijesh. Impression: Presbyesophagus. Small hiatal hernia. Mild gastroesophageal reflux. No constricting mass lesion evident. Dictated and Signed By: Omar Vee MD, 08/29/2025, 10:53 AM CDT us Torito Gonzalez MD IMG FLUOROSCOPY ORDERABLES Final Result * XR - CHEST (08/05/2025 12:00 AM CDT) 08/05/2025 us Provider Scan IMG DIAGNOSTIC ORDERABLES Final Result Performing Organization Address City/[facility] de Phone Number SCAN * CTA GENERIC (08/05/2025 12:00 AM CDT) 08/05/2025 us Provider Scan IMG CT ORDERABLES Final Result Performing Organization Address City/[facility] Co de Phone Number SCAN * COMPLETE BLOOD COUNT (CBC) WITH DIFF (08/05/2025 12:00 AM CDT) 08/05/2025 us Provider Scan HEMATOLOGY ORDERABLES Final Resu lt Performing Organization Address City/[facility] Co de Phone Number SCAN * HM COLONOSCOPY (04/22/2022 12:00 AM CDT) 04/22/2022 us Not On File Provider PROCEDURE/MINOR SURGICAL OR DERABLES Final Result Performing Organization Address City/[facility] Co de Phone Number SCAN * MAMMOGRAM BILATERAL MISCELLANEOUS (10/26/2021 12:00 AM CLARK DRIVER) 10/26/2021 us Not On File Provider IMG MAMMO ORDERABLES Final Result Performing Organization Address City/[facility] de Phone Number SCAN from Last 3 Months or Most Recently Relevant to Health Maintenance Insurance MEDICARE [facility] [place] [address] Care Teams Assembler Truck Trailer Relationship Specialty Start Date End Date Torito Gonzalez MD PCP - General Internal Medicine 02/01/20 Guille Collier MD [address] [place] [address] Consulting Physician Pulmonary Disease 12/06/22
--- OUTSIDE RECORDS SUMMARY | 2025-10-27 22:22 | XMS_ITS | Clinical Summary ---
Author Organization [facility] Address [address] [place] [address] Care Team Providers Care Inspector Balance Bridge Name Role Phone Torito Gonzalez MD Primary Care Provider [phone] Sol Lincoln MD Unavailable [phone] Vitaly Esquivel MD Unavailable [phone] Allergies Active Allergy Reactions Criticality Noted Date [...] for shortness of breath As needed Active budesonide (PULMICORT) 0.5 mg/2 mL nebulizer solution [...] 0.216 g 3 07/08/20 25 026 Active dextromethorphan- guaiFENesin (ROBITUSSIN-DM) 2-20 mg/mL liquid Take 10 mL by mouth 4 (four) times a day as needed for cough 118 mL 07/11/20 25 Active mepolizumab (NUCALA) 100 mg/mL auto-injector Inject 1 mL (100 mg total) under the skin every 28 (twenty-eight) days 1 mL 11 08/07/20 25 Active denosumab (PROLIA) 60 mg/mL syringe Inject 1 mL (60 mg total) under the skin once for 1 dose 1 mL 08/19/20 25 Active Active Problems Problem Noted Date Diagnosed Date COPD exacerbation 07/08/2025 Hypertrophy of both inferior nasal turbinates Chronic sinusitis 04/16/2024 Polyp, nasal 04/16/2024 Obstructive sleep apnea (adult) (pediatric) 12/2023 NSTEMI (non-ST elevated myocardial infarction) 0 01/15/2023 Age-related osteoporosis wit hout current pathological fracture 12/22/2022 Hx of colonic polyps 04/15/2022 Overview (04/15/2022): Added automatically from request for surgery [id number] Prinzmetal's angina 04/17/2021 Assessment & Plan (06/10/2025 [...] (12/18/2018): Added automatically from request for surgery [id number] Keratosis, senilis 01/10/2017 Benign neoplasm of soft [...] Encounters Date Type Department Care Team Description 09/23/2025 3:00 PM CDT Office Visit [facility] Medicine Allergy and Immunology [address] [place] [address] [address] [place] [address] Giana Joshi MD Chronic sinusitis, unspecified location (Primary Dx); Nasal polyps; Persistent asthma without complication, unspecified asthma severity 09/02/2025 1:00 PM CDT Infusion [facility] Cancer Infusion [address] [place] [address] Age-related osteoporosis without current pathological fracture (Primary Dx) 08/19/[address] [place] [address] Esther Gao RN 08/12/2025 Results Follow-Up [address] [place] [address] Alhaji Payan MD Dexa Axial Skeleton Bone Density 1 Or 2 Site 08/12/2025 Telephone [facility] [address] [place] [address] Jerman Santos RPh 08/09/2025 Telephone [facility] [address] [place] [address] Leticia Montes De Oca RN DEXA/Prolia 08/07/2025 3:00 PM CDT Office Visit [facility] Medicine Allergy and Immunology [address] [place] [address] Carmelita Byrne, YAHIR Nasal polyps (Primary Dx); Wheezing; Chronic sinusitis, unspecified location; Moderate persistent asthma with acute exacerbation from Last 3 Months Immunizations Immunization Administration Dates Next Due Influenza, Quad, Adjuvantated, Intramuscular Influenza, Quadrivalent, Hig h Dose, Preservative Free, Intrr 09/17/2021 Influenza, Quadrivalent, Spl it, Preservative Free, Intramuscular 09/14/2022,09/11/2020 Influenza, Trivalent, IM (MDV) 09/11/2024 Pneumococcal Conjugate Pcv20 10/07/2022 Surgical History Surgery Date Site/Laterality Comments OTHER [...] week 01/18/2023 How often do you attend [facility] or jainism services? More than 4 times per year 01/18/2023 Do you belong to any clubs o r organizations such as samaritan groups, unions, fraternal or athletic groups, or [...] in a correction (including now)? No 01/18/2023 Social Connection and [...] any clubs o r organizations such as samaritan groups, unions, fraternal or athletic groups, or [...] any time in the past 12 m [facility], were you homeless or living in a correction (including now)? No 07/09/2025 [facility] Utilities Answer Date Recorded In the [...] on file Legal Sex Female 1:11 AM CRYPTOLOGIC TECHNICIAN TECHNICAL Gender Identity Not on file Sexual Orientation [...] Sign Reading Time Taken Comments Blood Pressure 127/79 09/23/2025 3:06 PM CDT Pulse 72 09/23/2025 3:06 PM CDT Temperature 36.3 C (97.3 F) 09/02/2025 12:48 PM CDT Respiratory Rate 18 09/02/2025 12:48 PM CDT Oxygen Saturation 97% 09/23/2025 3:06 PM CDT Inhaled Oxygen Concentration - - Weight 67 kg (147 lb 9.6 oz) 09/23/2025 3:06 PM CDT Height 165.1 cm (5' 5) 09/23/2025 3:06 PM CDT Body Mass Index 24.56 09/23/2025 3:06 PM CDT Plan of Treatment Health Maintenance Due Date Last Done Comments DTaP/Tdap/Td Vaccine (1 - Tdap) 1966 Hepatitis B Screening 1971 Zoster Vaccine (1 of 2) 2003 Well Visit 65+ 05/28/2020 05/28/2019, 06/2 03/2018, 05/16/2017 Covid-19 Vaccine (3 - Pfizer risk series) 03/24/2021 02/24/2021, 02/03/2021 Depression Screening 09/01/2022 09/01/2021, 08/13/2020, 05/28/2019, Additional history exists Influenza Vaccine (#1) 2025 , 08/17/2023, 09/14/2022, Additional history exists Breast Cancer Screening-Mammogram 12/26/2025 12/26/2024, 11/08/2022, 10/26/2021, [...] Discontinued 04/22/2022, 12/06/2016, 12/06/2016, Additional history exists Pneumococcal vaccine 65+ Completed 10/07/2022 Procedures Procedure Name Priority Date/Time Associated Diagnosis Comments DEXA AXIAL SKELETON BONE DENSITY 1 OR MORE SITES Schedule Routine, Read Routine (OP Routine) 07/24/2025 12:17 PM CDT Osteoporosis without current pathological fracture, unspecified osteoporosis type SCREENING MAMMOGRAM BILATERAL W HECTOR Schedule Routine, Read Routine (OP Routine) 12/26/2024 7:47 AM CRYPTOLOGIC TECHNICIAN TECHNICAL Visit for screening mammogram COLONOSCOPY 04/22/2022 7:32 [...] F with given history of: Osteoporosis screening 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 MF: ANTOINE Report ID: [id number] Reading Location: [id number] Alhaji Payan MD [facility] DXA PROCEDURES Final R esult * Screening Mammogram Bilateral W Hector (12/26/2024 7:47 AM CRYPTOLOGIC TECHNICIAN TECHNICAL) Anatomical Region Laterality Modality Breast Bilateral Mammography 12/26/2024 8:36 AM CRYPTOLOGIC TECHNICIAN TECHNICAL Impressions 12/26/2024 8:36 AM CRYPTOLOGIC TECHNICIAN TECHNICAL No evidence of malignancy in either breast. FINAL ASSESSMENT: BI-RADS Category 2: Benign. RECOMMENDATION: Recommend return for annual screening mammogram in 12 months. Electronically signed by: Dane Purdy M.D. Narrative 12/26/2024 8:36 AM CRYPTOLOGIC TECHNICIAN TECHNICAL EXAMINATION: BILATERAL SCREENING MAMMOGRAM COMPARISON: 12/08/2022, 11/08/2022, 10/26/2021, 10/20/2020 TECHNIQUE: Full-field 2D and digital breast tomosynthesis (DBT) images were obtained. CAD was utilized. BREAST PARENCHYMAL COMPOSITION: There are scattered areas of fibroglandular density. FINDINGS: There are benign bilateral breast calcifications. There is no suspicious mass, calcification, or distortion in either breast. There has been no suspicious interval change. Alhaji Payan MD [facility] MAMMO PROCEDURES Final Result * COLONOSCOPY (04/22/2022 7:32 AM CDT) Anatomical Region Laterality Modality Other Narrative Procedure Note Jaciel Mott MD - 04/22/2022 7:32 AM CDT [facility] Patient Name: Gabbie Chris Procedure Date: 04/22/2022 7:32 AM Date of : 1955 Admit Type: Outpatient Age: 66 Gender: Female Attending MD: Jaciel Mott M.D. Room: [facility] ENDOSCOPY ROOM 2 Note Status: [...] scope was passed under direct vision. TheColonoscope [id number] was introduced through the anus and advanced [...] history of colonic polyps CPT copyright 2020 [employer]. All rights reserved. The codes documented in this report are preliminary and upon postmaster reviewmay be revised to meet current compliance requirements. Recognized by the [employer] for promoting quality in endoscopy us Jaciel Mott MD ENDOSCOPY PROCEDURES Final Re sult * Hepatitis C antibody (02/05/2019 7:21 AM CDT) Hep C Ab Negative Negative [facility] ([place]) Comment:Testing performed by : [facility], [address] [place] [address], [place]., [address] Blood specimen (specimen) 02/05/2019 7:21 AM CDT 02/05/2019 11:10 AM CDT Narrative [facility] ([place]) - 02/05/2019 11:58 AM CDT us Torito Gonzalez MD LAB MICROBIOLOGY - GENERAL ORDERABLES Final Result [facility] [address] [place] [id number] from Last 3 Months or Most Recently Relevant to Health Maintenance Insurance MEDICARE [facility] MEDICARE [place] MEDICARE [facility] Address: [address] [address] [place] [address] Advance Directives For more information, please contact: [phone] * Full Code (Latest Code Status on [...] 10:37 AM 01/15/2019 10:37 AM Care Teams Inspector Balance Bridge Relationship Specialty Start Date End Date Torito Gonzalez MD [address] [place] [address] PCP - General 02/25/17 [place] [address] [address] Consulting Physician Pulmonary Disease 01/30/24 Vitaly Esquivel MD [address] [place] [address] Consulting Physician Family Medicine 07/11/25
--- OUTSIDE RECORDS SUMMARY | 2025-10-27 22:22 | XMS_ITS | Encounter Summary ---
Author Organization [facility] Healthcare Address [address] [place] [address] Care Team Providers Care Gambling Floor Supervisor Name Role Phone Torito Gonzalez MD Primary Care Provider [phone] Sol Lincoln MD Unavailable [phone] Vitaly Esquivel MD Unavailable [phone] Reason for Visit * Reason Onset Date Comments Scheduling Appointments 10/23/2021 no answe r to confirm mamm appointment Encounter Details Date Type Department Care Team (Late st Contact Info) Description 10/23/2021 Telephone [facility] [address] [place] [address] Maryanne Das RT Scheduling Appointments (no answer [...] on file Legal 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 Gender Identity Not on file Sexual Orientation Not on file documented as of this encounter Plan of Treatment Not on file documented as of this encounter Visit Diagnoses Not on filedocumented in this encounter Additional Health Concerns Infection Onset Date Last Indicated Resolved Time COVID: Suspected 07/08/2025 07/08/2025 07/08/2025 5:02 PM CDT documented as of this encounter Care Teams Gambling Floor Supervisor Relationship Specialty Start Date End Date Torito Gonzalez MD [address] [place] [address] PCP - General 02/25/17 [place] [id number] [address] Consulting Physician Pulmonary Disease 01/30/24 Vitaly Esquivel MD [address] [place] [address] Consulting Physician Family Medicine 07/11/25 documented as of this encounter
--- OUTSIDE RECORDS SUMMARY | 2025-10-27 22:22 | XMS_ITS | Data Portability ---
Author Organization [place] [facility] [place], Main Office Address [address] [place] [address] Assessment No assessment recorded. Plan of Treatment Reminders Order Date Submit Date Provider Last Modified By Organization Details Last Modified Time Details Appointments None recorded. Lab None recorded. Referral None recorded. Procedures None recorded. Surgeries endoscopy, nasal/sinus , with frontal sinus exploration (SURG) 2022 023 [id number] Not available 00:33:17 Imaging None recorded. Medication Orders None recorded. Patient TargetsNo targets recorded. Patient Instructions Encounter Date Encounter Id Patient Instructions Last Modified By Organization Details Last Modified Time 02/17/2023 [id number] we will continue to work on her authorization for her biologic [email or web address] Not available 02/17/2023 11:27:01 Reason for Referral None Reported. Results Created Date Observation Date Name Description Value Unit Range Abnormal Flag Note LastModifiedBy Organization Detail LastModifiedTime 05/28/20 22 05/28/2022 POTAS SIUM potassium 4.4 mmol/ L 3.5-5. 1 Not Available [facility] (Lab) [address] [place], [address], 05/28/2022 09:30:08 05/28/20 22 05/28/2022 PLATE LET COUNT platelets 226 x10'3 /uL 150-40 0 Not Available [facility] (Lab) [address] [place], [address], 05/28/2022 09:18:10 05/28/20 22 05/28/2022 HEMOG LOBIN /ALYCE TOCRI T hemoglobin 15.0 g/dL 12.0-1 5.6 Not Available [facility] (Lab) [address] [place], [address], 05/28/2022 09:18:08 05/28/20 22 05/28/2022 HEMOG LOBIN /ALYCE TOCRI T hematocrit 45.8 % 35.7-4 5.7 high Not Available [facility] (Lab) [address] [place], [address], 05/28/2022 09:18:08 01/05/20 23 01/05/2023 POTAS SIUM potassium 3.6 mmol/ L 3.5-5. 1 Not Available [facility] (Lab) [address] [place], [address], 01/05/2023 08:35:39 01/05/20 23 01/05/2023 PLATE LET COUNT platelets 256 x10'3 /uL 150-40 0 Not Available [facility] (Lab) [address] [place], [address], 01/05/2023 08:35:19 01/05/20 23 01/05/2023 HEMOG LOBIN /ALYCE TOCRI T hemoglobin 15.0 g/dL 12.0-1 5.6 Not Available [facility] (Lab) [address] [place], [address], 01/05/2023 08:33:31 01/05/20 23 01/05/2023 HEMOG LOBIN /ALYCE TOCRI T hematocrit 45.9 % 35.7-4 5.7 high Not Available [facility] (Lab) [address] [place], [address], 01/05/2023 08:33:31 12/12/19 23 12/10/2022 CT, sinus es, w/o contr ast No observ ation record ed. [id number] [facility] [address] [place], [address], 01/27/2023 00:33:23 12/16/19 23 12/10/2022 CT, sinus es, w/o contr ast No observ ation record ed. [id number] [facility] Pod[facility]ry Office [address] [facility], [place], [address], 01/27/2023 00:33:23 Result Notes None recorded. Problems Name Problem SNOMED Code Status Onset Date Resolution Date Notes Provider Name and Address Organization Details Recorded Time Chronic sinusitis 71383620 Active 2021 Not Available [facility] 3 00:30:14 Chronic left maxillary sinusitis 4319312105791 9101 Active 2021 Not Available [facility] 3 00:30:14 Chronic sphenoidal sinusitis 24912004 Active 2021 Not Available [facility] 3 00:30:14 Chronic frontal sinusitis 16682784 Active 2021 Not Available [facility] 3 00:30:14 Chronic ethmoidal sinusitis 80921096 Active 2021 Not Available [facility] 3 00:30:14 Chronic maxillary sinusitis 49913299 Active 2022 Not Available [facility] 3 00:30:14 Postoperat ophelia pain 458253475 Active 2022 Not Available [facility] 3 00:30:14 Chronic pansinusit is 06930479 Active 2022 Not Available [facility] 3 00:30:14 Polyp of nasal sinus 11426082 Active 2022 Yoly calderon, [place] [facility] 3 08:51:50 Problem Notes None recorded. Procedures Surgical History Date Name Laterality Status Provider Name and Address Organization Details Recorded Time 01/05/20 23 ENDOSCOPY, NASAL/SINUS, WITH FRONTAL SINUS EXPLORATION (SURG) completed Not Available [facility] 01/27/2023 00:33:17 05/28/20 22 ENDOSCOPY, NASAL/SINUS, W/ MAXILLARY ANTROSTOMY & TISSUE REMOVAL (SURG) completed Not Available [facility] 01/27/2023 00:33:17 Imaging Results None recorded. Procedure Notes None recorded. Medical Equipment None Reported. Allergies Allergen ID Allergen Name Allergen Category Reaction Reaction Severity Criticality Documentation Date Start Date Code Code System Note Provider Name and Address Organization Details Recorded Time 85486 amoxicill in medicatio n Not available Not available Not available 01/27/2023 723 RxNorm Not Available [facility] 3 00:33:03 Medications Name Sig Start Date Stop [...] 12/14/2022 21.8 kg/m2 165.1 cm 97.9 [degF] 01895.6 g Not Available [facility] 01/27/2023 00:29:10 Date Recorded Body mass index (BMI) Body height Body temperature Body weight Provider Name and Address Organization Details Last Updated DateTime 01/13/2023 20.8 kg/m2 165.1 cm 97.6 [degF] 31583.05 g Not Available [facility] 01/27/2023 00:29:10 Date Recorded Body height Body mass index (BMI) Body weight Body temperature Provider Name and Address Organization Details Last Updated DateTime 02/17/2023 165.1 cm 22.1 kg/m2 54821.79 g 97.7 [degF] Una Kincaid [facility] [place] [facility] 02/17/2023 11:11:02 Date Recorded Body mass index (BMI) Body height Body temperature Body weight Provider Name and Address Organization Details Last Updated DateTime 06/08/2022 2.6 kg/m2 165.1 cm 97.7 [degF] 7212.12 g Not Available [facility] 01/27/2023 00:29:10 Date Recorded Body mass index (BMI) Body height Body temperature Body weight Provider Name and Address Organization Details Last Updated DateTime 07/28/2022 22.8 kg/m2 165.1 cm 96.9 [degF] 90268.87 g Not Available [facility] 01/27/2023 00:29:10 Social History Question Answer Notes LastModified by [employer] Details LastModified Time Tobacco Smoking Status Never Smoker Not Available [facility] 01/27/2023 00:27:32 In The 14 Days Before Symptom Onset, Have You Had Close Contact With A Laboratory-confirm ed COVID-19 While That Case Was Ill? No [id number] Information not available 01/27/2023 In The 14 Days Before Symptom Onset, Have You Had Close Contact With A Person Who Is Under Investigation For COVID-19 While That Person Was Ill? No [id number] Information not available 01/27/2023 Have You Recently Traveled Abroad? No [id number] Information not available 01/27/2023 Sex: Unknown Functional Status Question Answer Note LastModified by [employer] Details LastModified Time What is your level of alcohol consumption? None [id number] Information not available 01/27/2023 Mental Status None recorded. Family History Relationship Description Onset Age of this Age Resolved Age Notes LastModified by Organization Details LastModified Time Father No current problems or disability [id number] Not available 01/27/2023 00:28:02 Mother No current problems or disability [id number] Not available 01/27/2023 00:28:02 Medical History Condition Response MRSA N SLEEP APNEA N ALLERGIES/HAYFEVER N LUNG DISEASE/DISORDER N HISTORY OF DRUG ABUSE N INSOMNIA N COPD N RADIATION / CHEMOTHERAPY N HIGH CHOLESTEROL / HYPERLIPIDEMIA N HYPERTHYROIDISM N BLOOD DISEASES N EAR OR HEARING PROBLEMS N HYPOTHYROIDISM N SHINGLES N DEPRESSION (INCLUDING POST ) N HAVE YOU BEEN HOSPITALIZED OR SEEN IN [facility] IN THE PAST YEAR ? N [...] Diagnosis SNOMED-CT Code Diagnosis ICD10 Code Diagnosis IMO Codes Diagnosis Note [id number] MD [facility] [place] [address] [place] [address] 02/18/2022 00:00:00 02/18/2022 12:42:24 [id number] MD CANDIE [facility] [place] [address] [place] [address] 04/08/2022 00:00:00 04/08/2022 14:14:39 [id number] MD [facility]IE [facility] [place] [address] [place] [address] 06/08/2022 00:00:00 06/08/2022 10:26:01 [id number] MD [facility] [place] [address] [place] [address] 07/28/2022 00:00:00 07/28/2022 14:29:08 [id number] MD GEOFFREY [facility] [place] [address] [place] [address] 12/14/2022 00:00:00 12/14/2022 11:53:49 [id number] MD GEOFFREY [facility] [place] [address] [place] [address] 01/13/2023 00:00:00 01/13/2023 11:12:34 [id number] MD GEOFFREY [facility] [place] [address] [place] [address] 02/17/2023 10:35:51 02/17/2023 11:42:47 Chronic sinusitis 15249995 J32.9 Health Concerns Section Related Observation LastModified by Organization Detai ls LastModified Time None Recorded Concern Status LastModified by Organization Details LastModified Time None Recorded Advance Directives Directive None Recorded Payers Insurance Date Sequence Insurance Name Policy Number Policy Woodard Covered Member ID Woodard Member ID Guarantor Name 02/22/2023 1 [place] Gabbie Chris [id number] Gabbie Chris 02/22/2023 2 [facility] (MEDICARE SUPPLEMENT) Gabbie Chris [id number] Gabbie Chris Notes Date Note Type Note Provider Name and Address Organization Details Recorded Time 02/17/2023 text/html this patient reports thatDupixent is working well and we are working on her pre authorization for permanent prescription. Ned Philip MD [address] [place] [address], [facility] [address], [place], [address], [place] [facility] [employer] [facility] 02/17/2023 11:27:23 OBGyn Episode No OBEpisode recorded.
[2025-10-27] MEDS: IPRATROPIUM 0.5 MG/ALBUTEROL SULFATE 2.5 MG (BASE) AMPUL.NEB 3 ML INHALATION (22:38)
[2025-10-27 22:54] VITALS: BP 139/75; PULSE 78; RESP 28; O2SAT 94
[2025-10-27 23:00] VITALS: BP 134/76; PULSE 72; RESP 25; O2SAT 94
--- NOTE | 2025-10-27 23:00 | PC.NURSE ---
RESTING QUIETLY ON STRETCHER. SITTING IN CHAIR. REPORTS THAT NEB TREATMENT HELPED. CONTINUES TO HAVE DYSPNEA WITH EXERTION. LAB HAS FINISHED BLOOD DRAW. WAITING ON TEST RESULTS. PATIENT HAS CALL LIGHT IN REACH.
[2025-10-27 23:10] LABS: Hematocrit 42.2 % (35.0-42.0); Hemoglobin 13.9 g/dL (11.7-13.8); Immature Granulocyte Percent A 0.3 % (0.0-0.0); Lymphocytes Absolute Auto 3.35 K/mm3 (1.10-4.50); Mean Corpuscular HGB Conc 32.9 g/dL (32-36); Mean Corpuscular Hemoglobin 29.9 pg (27.0-31.0); Mean Corpuscular Volume 90.8 fL (78.0-102.0); Nucleated Red Blood Cells Absolute Auto 0.00 K/mm3 (0.00-0.00); Nucleated Red Blood Cells Perc 0.0 % (0-0.0); Platelet Count Result 235 K/mm3 (150-420); Red Blood Count 4.65 M/mm3 (4.20-5.40); White Blood Count 9.4 K/mm3 (4.8-10.8)
[2025-10-27 23:15] VITALS: BP 126/72; PULSE 69; RESP 17; O2SAT 95
[2025-10-27 23:21] LABS: Alanine Aminotransferase 32 U/L (6-35); Albumin Level 4.6 g/dL (3.5-5.1); Alkaline Phosphatase 84 U/L (38-126); Anion Gap 10 mmol/L (4-12); Aspartate Amino Transferase 38 U/L (14-36); Bilirubin,Total 0.3 mg/dL (0.2-1.3); Blood Urea Nitrogen 23 mg/dL (7-17); Calcium 9.3 mg/dL (8.4-10.2); Carbon Dioxide 25 mmol/L (22-30); Chloride 108 mmol/L (98-107); Estimated CRCL calculation 55 ml/min; Estimated Glomerular Filt Rate > 60; Glucose 101 mg/dL (65-110); Osmolality Calculated 299 mOsm/kg (285-295); Potassium 3.6 mmol/L (3.4-5.0); Sodium 143 mmol/L (137-145); Total Protein 7.7 g/dL (6.3-8.2)
[2025-10-27 23:25] LABS: INR 0.9; Partial Thromboplastin Time 27.1 Sec (23.9-30.70); Prothrombin Time 10.4 Seconds (9.50-12.1)
--- NOTE | 2025-10-27 23:26 | PC.NURSE ---
NOTIFIED PATIENT THAT NOT ALL LABS HAVE POSTED JUST YET. PATIENT CURRENTLY DENIES ANY NEEDS. CALL LIGHT IN REACH
[2025-10-27 23:30] VITALS: BP 125/75; PULSE 75; RESP 22; O2SAT 94
[2025-10-27 23:33] LABS: NT Pro B Type Natriuretic Pept 25 pg/mL (19.9-100)
[2025-10-27 23:34] LABS: Lipase 68 U/L (23-300); Troponin I < 0.012 ng/mL (0.000-0.034)
[2025-10-27 23:45] VITALS: BP 125/81; PULSE 74; RESP 20; O2SAT 94
--- NOTE | 2025-10-27 23:50 | PC.NURSE ---
PATIENT TRANSPORTED TO CT VIA WHEEL CHAIR
[2025-10-28] VITALS (12 sets, daily range): BP systolic 105–136; BP diastolic 52–121; PULSE 73–92; RESP 18–29; O2SAT 91–95
[2025-10-28 00:09] LABS: Influenza A QL RT-PCR Negative (Negative); Influenza B QL RT-PCR Negative (Negative); RSV RNA, RT-PCR Negative (Negative); SARS-CoV-2 RNA PCR Negative (Negative)
--- NOTE | 2025-10-28 00:23 | PC.NURSE ---
PATIENT AND HUSBAD NOTIFIED THAT IT WILL BE SEVERAL HOURS BEFORE CT RESULTS WILL BE FAXED TO [facility]. LOWERED HEAD OF BED FOR PATIENT SO SHE COULD LAY DOWN. OFFERED PILLOW AND BLANKET TO . DOES NOT WANT ONE AT THIS TIME. CALL LIGHT IN REACH. LIGHTS TURNED OFF
--- NOTE | 2025-10-28 01:13 | PC.NURSE ---
PATIENT APPEARS TO BE SLEEPING. RESP EVEN AND UNLABORED. SLEEPING IN CHAIR. CALL LIGHT IN REACH
--- NOTE | 2025-10-28 02:06 | PC.NURSE ---
PATIENT APPEARS TO BE SLEEPING. RESP EVEN AND UNLABORED. CALL LIGHT IN REACH. CONTINUE TO WAIT ON CT RESULTS.
--- NOTE | 2025-10-28 02:45 | PC.NURSE ---
PATIENT AMBULATED DOWN TO THE BATHROOM AND BACK TO ROOM WITHOUT DIFFICULTY. WOB NON LABORED. PLACED BACK ON BLANKER OPERATOR. CALL LIGHT IN REACH.
--- NOTE | 2025-10-28 04:00 | PC.NURSE ---
PATIENT RESTING ON STRETCHER WITH HERE EYES CLOSED. RESP EVEN AND UNLABORED. CALL LIGHT IN REACH. CONTINUE TO WAIT ON CT TO RESULT.
--- NOTE | 2025-10-28 05:00 | PC.NURSE ---
PATIENT CALLED OUT. REQUESTED TO GO TO THE BATHROOM. PATIENT AMBULATED TO THE BATHROOM WITHOUT DIFFICULTY.
--- NOTE | 2025-10-28 05:23 | PC.NURSE ---
PATIENT CALLING HER TO COME AND PICK HER UP
== END 2025-10-28 05:34 | disposition home or self-care (01) ==
PROVIDERS: Emergency Provider Emergency Medicine; PCP Internal Medicine
DX: J21.9 Acute bronchiolitis, unspecified (principal); J44.1 Chronic obstructive pulmonary disease with (acute) exacerbation; J45.901 Unspecified asthma with (acute) exacerbation; J43.9 Emphysema, unspecified; I10 Essential (primary) hypertension; Z87.891 Personal history of nicotine dependence; Z20.822 Contact with and (suspected) exposure to COVID-19
CPT/HCPCS: 36415; 71046; 71275; 80053; 83690; 83880; 84484; 85025; 85380; 85610; 85730; 87637; 93005; 96374; 99284; A9270; J2919; Q9967

== ENCOUNTER 2025-11-07 15:27 | Outpatient (CLI) | payer MEDICARE, OTHER, SELFPAY ==
--- NOTE | ~2025-11-07 | MR_ITS ---
EXAMINATION: MRI lumbosacral spine without contrast: DATE: 11/07/2025 INDICATION: 20-year-old with history of chronic low back pain and radiculopathy to right lower extremity. TECHNIQUE: Axial, coronal and sagittal images spine as per protocol. COMPARISON: None. FINDINGS: No acute bony lesions of lumbar vertebrae. Conus terminates at L1-2 level. Cauda equina structures are unremarkable At L1-2 level no focal disc lesions. At L2-3 level, mild degenerative disc disease and facet arthropathy causing mild to moderate compromise of lateral recesses, left more prominent than right At L3-4 level, degenerative disc disease with bulging annulus and facet arthropathy with hypertrophy of the ligaments causing moderate compromise of both lateral recesses and minimal compromise of thecal sac in the midline, AP diameter measuring 13 mm. At L4-5 level, severe bilateral facet arthropathy is noted right worse than the left with significant hypertrophy of the ligaments and small synovial cyst from the right facet joint impinging on the right lateral recess and neural foramen to a significant degree. Moderate compromise of left lateral recess and significant compromise of thecal sac with AP diameter in the midline measuring 8.2 mm. Mild anterolisthesis of L4 on L5. At L5-S1 level, degenerative disc disease with bulging annulus and facet arthropathy are causing significant left foraminal narrowing. Paravertebral soft tissues are unremarkable. IMPRESSION: 1. No acute or focal bone changes of lumbar vertebrae. 2.At L4-5 level, severe bilateral facet arthropathy is noted right worse than the left with significant hypertrophy of the ligaments and small synovial cyst from the right facet joint impinging on the right lateral recess and neural foramen to a significant degree. Moderate compromise of left lateral recess and significant compromise of thecal sac with AP diameter in the midline measuring 8.2 mm. Mild anterolisthesis of L4 on L5. 3. At L5-S1 level, degenerative disc disease with bulging annulus and facet arthropathy are causing significant left foraminal narrowing. 4. Findings at other levels are described above in detail. Reviewed, dictated and finalized at location T. F SECURITY AND SAFETY OFFICER IMPRESSION: 1. No acute or focal bone changes of lumbar vertebrae. 2.At L4-5 level, severe bilateral facet arthropathy is noted right worse than t he left with significant hypertrophy of the ligaments and small synovial cyst f rom the right facet joint impinging on the right lateral recess and neural fora men to a significant degree. Moderate compromise of left lateral recess and si gnificant compromise of thecal sac with AP diameter in the midline measuring 8. 2 mm. Mild anterolisthesis of L4 on L5. 3. At L5-S1 level, degenerative disc disease with bulging annulus and facet art hropathy are causing significant left foraminal narrowing. 4. Findings at other levels are described above in detail.
== END 2025-11-07 15:28 | disposition home or self-care (01) ==
LOC: CHSIMG 15:30
PROVIDERS: PCP Internal Medicine; Visit Provider Nurse Practitioner Family
DX: M54.16 Radiculopathy, lumbar region (principal); M47.896 Other spondylosis, lumbar region; M51.369 Other intervertebral disc degeneration, lumbar region without mention of lumbar back pain or lower extremity pain
CPT/HCPCS: 72148

== ENCOUNTER 2025-11-12 17:16 | Emergency (ER) | payer MEDICARE, OTHER, SELFPAY ==
[2025-11-12] VITALS (17 sets, daily range): BP systolic 104–157; BP diastolic 55–86; PULSE 65–93; RESP 16–32; TEMP 36.7; O2SAT 91–98
--- NOTE | ~2025-11-12 | XR_ITS ---
XR chest 1V portable INDICATION:sob . REFERENCE: None FINDINGS: A single AP of the chest demonstrates normal heart size. The lungs are clear. There is no evidence of pneumothorax or pleural effusion. IMPRESSION: No acute pulmonary findings. Reviewed, dictated and finalized at location S. T SCHOOL TEACHER
--- NOTE | ~2025-11-12 | CT_ITS ---
CTA chest PE protocol HISTORY:elev dimer . COMPARISON: None. TECHNIQUE: Following the noncontrasted player development manager, axial images of the thorax were obtained following infusion of 100 cc of Isovue 370. Post-processing on an independent workstation was performed to reconstruct MIP images for evaluation of the thoracic vasculature. FINDINGS: There is no pulmonary embolism, aortic dissection, thoracic aneurysm or pericardial fluid. The lung parenchyma is clear. No pleural effusion or pneumothorax is noted. There is no axillary, mediastinal or hilar adenopathy. Limited evaluation of the upper abdomen demonstrates no gross abnormalities. Review of bone windows demonstrates no osteoblastic or lytic lesions. IMPRESSION: There is no pulmonary embolism, aortic dissection, pericardial fluid or thoracic aneurysm. No acute lung findings. All CT scans at this facility are performed using low dose modulation techniques as appropriate to perform exam including the following: automated exposure control; use of iterative reconstruction technique; adjustment of the mA and/or kV according to patient size (this includes techniques or standardized protocols for targeted exams where dose is matched to indication/reason for exam). Reviewed, dictated and finalized at location S. EADER IMPRESSION: There is no pulmonary embolism, aortic dissection, pericardial fluid or thoraci c aneurysm. No acute lung findings. All CT scans at this facility are performed using low dose modulation techniqu es as appropriate to perform exam including the following: automated exposure c ontrol; use of iterative reconstruction technique; adjustment of the mA and/or kV according to patient size (this includes techniques or standardized protocol s for targeted exams where dose is matched to indication/reason for exam).
--- NOTE | 2025-11-12 17:17 | ECG_ITS ---
Test Date: 2025-11-12 17:24:02 Measurements Intervals [place] Rate: 79 P: -4 NM: 161 QRS: 3 QRSD: 70 T: 52 QT: 355 QTc: 409 Interpretive Statements SINUS RHYTHM BASELINE ARTIFACT- I, II, III, AVR, AVL, AVF, V1-V6 NORMAL ECG Compared to ECG 10/27/2025 22:06:36 NO SIGNIFICANT CHANGE Electronically Signed On 11-12-2025 20:51:06 BOIL OFF WORKER by Ian Reyez D.O.
--- NOTE | 2025-11-12 17:18 | ED.SOB ---
HPI - SOB/Dyspnea General Chief Complaint: Shortness of Breath/Dyspnea Stated Complaint: SOB Time Seen by Provider: 11/12/25 17:17 Source: patient Mode of arrival: ambulatory Limitations: no limitations History of Present Illness HPI Narrative: Patient is 70-year-old female with shortness of breath. She has recently seen in the emergency room for COPD exacerbation and bronchitis and was discharged home. She was doing fine after the steroids had still been used and then as they diminished off who is time to consider further treatment. MD elicited complaint: shortness of breath Pertinent past history: COPD Onset (ago): week(s) (One) Context: recent illness Timing: constant Severity: similar to previous episodes Exacerbating factors: coughing and inspiration Relieving factors: nothing Known history of: COPD Associated symptoms: chest pain and chest congestion Treatment prior to arrival: none Related Data Home oxygen amount: none Home Medications ?Medication ?Instructions ?Recorded ?Confirmed ?Last Taken ?Type amlodipine 5 mg tablet 5 mg PO DAILY 08/26/22 08/06/25 08/05/25 History aspirin 81 mg capsule 81 mg PO DAILY 08/26/22 08/06/25 08/05/25 History famotidine 20 mg tablet 20 mg PO DAILY 08/26/22 08/06/25 08/05/25 History Calcium 600 600 mg PO DAILY 05/08/23 08/06/25 08/05/25 History formoterol fumarate 20 mcg inhalation DAILY 05/08/23 08/06/25 08/05/25 History budesonide 0.5 mg/2 mL suspension 0.5 mg inhalation Q12H 04/18/25 08/06/25 08/05/25 History for nebulization Allergies Allergy/AdvReac Type Severity Reaction Status Date / Time omalizumab (From Xolair) Allergy Unknown Unknown Verified 11/12/25 17:23 amoxicillin (From Augmentin) Allergy Dyspnea / Verified 11/12/25 17:23 SOB clavulanic acid (From Allergy Dyspnea / Verified 11/12/25 17:23 Augmentin) SOB doxycycline Allergy Back Pain Verified 11/12/25 17:23 adhesive tape AdvReac Rash Verified 11/12/25 17:23 Review of Systems Review of Systems: All systems reviewed & are unremarkable except as noted in HPI and below Constitutional: Constitutional: Reports no additional constitutional complaints Eyes: Eyes: Reports no additional eye complaints ENT: Reports system reviewed and no additional complaints, except as documented Cardiovascular: Cardiovascular: Reports no additional cardiovascular complaints Respiratory: Respiratory: Reports no additional respiratory complaints Gastrointestinal: Gastrointestinal: Reports no additional gastrointestinal complaints Genitourinary: Genitourinary: Reports no additional female genitourinary complaints Musculoskeletal: Musculoskeletal: Reports no additional musculoskeletal complaints Integumentary/Breasts: Skin/Breast: Reports system reviewed and no additional complaints, except as docu Neurologic: Reports system reviewed and no additional complaints, except as documented Psychiatric: Psychiatric: Reports no additional psychiatric complaints Endocrine: Endocrine: Reports no additional endocrine complaints Hematologic/Lymphatic: Hematologic/Lymphatic: Reports no additional hematologic/lymphatic complaints Allergic/Immunologic: Allergic/Immunologic: Reports no additional allergic/immunologic complaints PMFSH Past Medical History Medical History Closed fracture of metacarpal of left hand Hypoxia Acute exacerbation of emphysema Hypertension Emphysema of lung Surgical History Surgical History History of hysterectomy Hx of sinus surgery Family History Family History Unknown Asthma Hypertension Heart disease Diabetes mellitus Neuropathy Liver cancer Throat cancer Social History Social History Social History: HISTORY OF SMOKING IN THE PAST Smoking packs per day: 0.75 Smoking cigarettes per day: 15.0 Years smoked: 30 Smoking pack-years: 22.50 Smoking status: Former smoker Tobacco type: cigarettes Second hand tobacco smoke exposure: Yes Alcohol intake: never Drinks per week: 1 Substance use: never Substance use type: prescription drug Lack of Transportation: No Lack of Food: Never True Current Housing: I Have Housing Concerned About Future Housing: No Difficulty Paying Gas/Electric Bills: No Difficulty Paying for Meds: No Currently Unemployed: No Education: Master's Degree or Higher Difficulty w/ Childcare or Family Care: No Occupation/Education: retired Gender identity (if verbalized by the patient): Female Spiritual care concerns: No Exam Const: General: healthy appearing Nutritional Appearance: well nourished Orientation/consciousness: patient oriented x3 Limitations: no limitations HENMT: Head: normal to inspection Ears: external ears normal Face/Nose/Sinus: Normal external nose present Eyes: Conjunctivae: conjunctivae normal Pupils: Equal, round and reactive pupils present EOM: EOMs intact bilaterally Neck: Neck: normal visual inspection, no lymphadenopathy and no meningeal signs Chest: Chest palpation & inspection: normal inspection of the chest Resp: Effort & Inspection: normal respiratory effort, not labored, no retractions, tachypneic and no use of accessory muscles Auscultation: clear to auscultation bilaterally, no crackles, no rales, no rhonchi, no wheezes, breath sounds present and diminished lung sounds Cardio: Rate: regular rate Rhythm: regular rhythm Heart sounds: no murmurs GI: Inspection: non-distended GI Palp: Yes Soft to palpation, Yes Tenderness to palpation present (GI), No Guarding due to palpation present (GI), No Rigid due to palpation, No Hernia present, No Palpable mass present and No Rebound tenderness present Auscultation: normal bowel sounds, bowel sounds present, no hyperactive bowel sounds and Hypoactive bowel sounds present : General: Yes bladder normal to palpation Back/Spine/Pelvis: Back: no CVA tenderness Skin: General skin exam: normal color Rashes: no rashes Wounds: no wounds Neuro: General: patient oriented x3, moves all extremities, no meningeal signs, no focal motor deficits and CN's II-XI intact bilaterally Extrem: General: normal to inspection, no clubbing, cyanosis or edema and no pedal edema Psych: Mental Status: mental status grossly normal Affect: normal affect Attitude: cooperative Course Vital Signs Vital signs: Vital Signs Temperature 36.7 C 11/12/25 17:16 Pulse Rate 80 11/12/25 17:16 Respiratory Rate 18 11/12/25 17:16 Blood Pressure 125/86 11/12/25 17:16 Pulse Oximetry 93 11/12/25 17:16 Oxygen Delivery Room Air 11/12/25 17:16 Temperature 36.7 C 11/12/25 17:16 Pulse Rate 74 11/12/25 19:40 Respiratory Rate 22 H 11/12/25 19:40 Blood Pressure 114/71 11/12/25 18:30 Pulse Oximetry 95 11/12/25 19:40 Oxygen Delivery Room Air 11/12/25 17:16 [facility] MDM Narrative Medical decision making narrative: Patient is a 70-year-old female with COPD and having a flare at this time. DuoNeb and Solu-Medrol. Review labs and x-rays. CTA chest for PE. Continue steroid and antibiotics in the morning from pharmacy. Differential Diagnosis Differential Diagnosis: COPD exacerbation, pneumonia Lab Data MDM Lab Attestation statement: I personally reviewed the patient's lab results. 11/12/25 18:04 11/12/25 18:04 Labs: Lab Results 11/12/25 Range/Units 18:04 WBC 8.8 (4.8-10.8) K/mm3 RBC 4.97 (4.20-5.40) M/mm3 Hgb 14.6 H (11.7-13.8) g/dL Hct 45.5 H (35.0-42.0) % MCV 91.5 (78.0-102.0) fL MCH 29.4 (27.0-31.0) pg MCHC 32.1 (32-36) g/dL RDW 14.6 H (11.6-14.4) % Plt Count 286 (150-420) K/mm3 MPV 10.0 (9.2-11.8) fl Immature Gran % (Auto) 0.3 H (0.0-0.0) % Neut % (Auto) 57.1 (50.0-70.0) % Lymph % (Auto) 31.8 (18.0-42.0) % [place] % (Auto) 9.9 (2.0-11.0) % Eos % (Auto) 0.6 L (1.0-6.0) % Baso % (Auto) 0.3 (0.0-1.0) % Lymph # (Auto) 2.79 (1.10-4.50) K/mm3 [place] # (Auto) 0.87 (0.10-0.90) K/mm3 Eos # (Auto) 0.05 (0.02-0.50) K/mm3 Baso # (Auto) 0.03 (0.00-0.10) K/mm3 Abs Immat Gran (auto) 0.03 H (0.00-0.00) K/mm3 Absolute Neuts (auto) 5.00 (1.70-7.20) K/mm3 Absolute Nucleated RBC 0.00 (0.00-0.00) K/mm3 Nucleated RBC % 0.0 (0-0.0) % D-Dimer 0.53 H (0.19-0.50) mg/L Sodium 144 (137-145) mmol/L Potassium 3.7 (3.4-5.0) mmol/L Chloride 109 H (98-107) mmol/L Carbon Dioxide 23 (22-30) mmol/L Anion Gap 12 (4-12) mmol/L BUN 24 H (7-17) mg/dL Creatinine 0.88 (0.7-1.0) mg/dL Estim Creat Clear Calc Not Reportable Estimated GFR > 60 (59 - ) Glucose 98 (65-110) mg/dL Calculated Osmolality 302 H (285-295) mOsm/kg Lactic Acid 1.9 (0.7-2.0) mmol/L Calcium 9.5 (8.4-10.2) mg/dL Total Bilirubin 0.3 (0.2-1.3) mg/dL AST 41 H (14-36) U/L ALT 28 (6-35) U/L Alkaline Phosphatase 92 (38-126) U/L Troponin I < 0.012 (0.000-0.034) ng/mL NT-Pro-B Natriuret Pep < 20 (19.9-100) pg/mL Total Protein 8.1 (6.3-8.2) g/dL Albumin 4.7 (3.5-5.1) g/dL Imaging Data Attestation: I personally reviewed and interpreted this imaging study as follows: Radiologist's impression: ITS Impressions Chest X-Ray 11/12/25 19:14 IMPRESSION: No acute pulmonary findings. Chest CTA 11/12/25 20:24 IMPRESSION: There is no pulmonary embolism, aortic dissection, pericardial fluid or thoracic aneurysm. No acute lung findings. All CT scans at this facility are performed using low dose modulation techniques as appropriate to perform exam including the following: automated exposure control; use of iterative reconstruction technique; adjustment of the mA and/or kV according to patient size (this includes techniques or standardized protocols for targeted exams where dose is matched to indication/reason for exam). Discharge Plan Discharge Clinical Impression: Acute exacerbation of chronic obstructive pulmonary disease Patient Disposition: Home Condition: Stable Instructions: Antibiotic Form, COPD (Chronic Obstructive Pulmonary Disease) (DC) Patient Language: Icelandic Prescriptions: New methylprednisolone [Medrol (Jerson)] 4 mg tablets,dose pack See Rx Instructions .ROUTE .COMPLEX Qty: 21 0RF Rx Instructions: orally per package directions azithromycin 250 mg tablet See Rx Instructions .ROUTE .COMPLEX Qty: 6 0RF Rx Instructions: For 250 mg dose pack: take 500 mg today (day 1), then 250 mg for 4 days (days 2-5) albuterol sulfate [Ventolin HFA] 90 mcg/actuation HFA aerosol inhaler 2 inh inhalation QID PRN (Reason: shortness of breath or wheezing) Qty: 6.7 0RF No Action ipratropium-albuterol 0.5 mg-3 mg(2.5 mg base)/3 mL solution for nebulization 3 ml INHALATION QID Qty: 30 0RF albuterol sulfate [Ventolin HFA] 90 mcg/actuation HFA aerosol inhaler 2 puff inhalation QID Qty: 8.5 0RF Calcium 600 600 mg PO DAILY formoterol fumarate 20 mcg inhalation DAILY benzonatate 100 mg Capsule 200 mg PO Q8H PRN (Reason: Cough) Qty: 30 0RF levofloxacin 250 mg tablet 250 mg PO DAILY Qty: 4 0RF methylprednisolone [Medrol (Jerson)] 4 mg tablets,dose pack See Rx Instructions .ROUTE .COMPLEX Qty: 21 0RF Rx Instructions: orally per package directions amlodipine 5 mg tablet 5 mg PO DAILY famotidine 20 mg Tablet 20 mg PO DAILY aspirin 81 mg Capsule 81 mg PO DAILY budesonide 0.5 mg/2 mL suspension for nebulization 0.5 mg inhalation Q12H methylprednisolone [Medrol (Jerson)] 4 mg tablets,dose pack See Rx Instructions .ROUTE .COMPLEX Qty: 21 0RF Rx Instructions: orally per package directions levofloxacin 500 mg tablet 500 mg PO DAILY Qty: 7 0RF Follow-up/Referrals: Carlos,Torito Holley MD [Primary Care Provider, Unknown] Time of Disposition: 20:31
[2025-11-12 18:14] LABS: Hematocrit 45.5 % (35.0-42.0); Hemoglobin 14.6 g/dL (11.7-13.8); Immature Granulocyte Percent A 0.3 % (0.0-0.0); Lymphocytes Absolute Auto 2.79 K/mm3 (1.10-4.50); Mean Corpuscular HGB Conc 32.1 g/dL (32-36); Mean Corpuscular Hemoglobin 29.4 pg (27.0-31.0); Mean Corpuscular Volume 91.5 fL (78.0-102.0); Nucleated Red Blood Cells Absolute Auto 0.00 K/mm3 (0.00-0.00); Nucleated Red Blood Cells Perc 0.0 % (0-0.0); Platelet Count Result 286 K/mm3 (150-420); Red Blood Count 4.97 M/mm3 (4.20-5.40); White Blood Count 8.8 K/mm3 (4.8-10.8)
--- OUTSIDE RECORDS SUMMARY | 2025-11-12 18:19 | XMS_ITS | Clinical Summary ---
Author Organization [facility] Address [address] [place] [address] Care Team Providers Care Obstetrics Nurse Practitioner Name Role Phone Torito Gonzalez MD Primary Care Provider [phone] Sol Lincoln MD Unavailable [phone] Vitaly Esquivel MD Unavailable [phone] Allergies Active Allergy Reactions Criticality Noted Date [...] 2 each 1 07/02/20 25 026 Active dextromethorphan- guaiFENesin (ROBITUSSIN-DM) 2-20 [...] 1 dose 1 mL 08/19/20 25 Active mometasone furoate, bulk, 100 % powder Apply 1.2 mg intranasally 2 (two) times a day Mix 1.2 mg into 240 mL nasal rinse bottle and rinse each nostril with 1/2 bottle twice a day 0.216 g 6 11/05/20 25 026 Active mometasone furoate, bulk, 100 % powder Apply 1.2 mg intranasally 2 (two) times a day Mix 1.2 mg into 240 mL nasal rinse bottle and rinse each nostril with 1/2 bottle twice a day 0.216 g 3 07/08/20 25 025 Discontin ued(Reord er) mometasone furoate, bulk, 100 % powder Apply 1.2 mg intranasally 2 (two) times a day Mix 1.2 mg into 240 mL nasal rinse bottle and rinse each nostril with 1/2 bottle twice a day 0.216 g 6 11/05/20 25 025 Discontin ued(Reord er) Active Problems Problem Noted Date Diagnosed Date COPD exacerbation 07/08/2025 Hypertrophy of both inferior nasal turbinates Chronic sinusitis 04/16/2024 Polyp, nasal 04/16/2024 Obstructive sleep apnea (adult) (pediatric) 02/0 12/2023 NSTEMI (non-ST elevated myocardial infarction) 0 01/15/2023 Age-related osteoporosis wit hout current pathological fracture 12/22/2022 Hx of colonic polyps 04/15/2022 Overview (04/15/2022): Added automatically from request for surgery [id number] Prinzmetal's angina 04/17/2021 Assessment & Plan (06/10/2025 [...] (12/18/2018): Added automatically from request for surgery [id number] Keratosis, senilis 01/10/2017 Benign neoplasm of soft [...] Encounters Date Type Department Care Team Description 11/05/2025 Orders Only [facility]) - [facility] Medicine ENT [address] [facility] Medical Office Building [address] [place] [address] Lydia Rojas MD 11/05/2025 Telephone [facility] [address] [place] [address] Shahla Kwan MS 11/05/2025 Orders Only [facility] - [facility] Medicine ENT [address] [facility] Medical Office Building [address] [place] [address] Lydia Rojas MD 09/23/2025 3:00 PM CDT Office Visit [facility] Medicine Allergy and Immunology [address] [place] [address] [address] [place] [address] Giana Joshi MD Chronic sinusitis, unspecified location (Primary Dx); Nasal polyps; Persistent asthma without complication, unspecified asthma severity 09/02/2025 1:00 PM CDT Infusion [facility] [address] [facility] [address] [place] [address] Age-related osteoporosis without current pathological fracture (Primary Dx) 08/19/2025 Telephone [facility] [address] [facility] [address] [place] [address] Esther Gao RN from Last 3 Months Immunizations Immunization Administration [...] lb(s) 2 oz Male Hx Other Medical 1971 ; Outc ome: 7 lb(s) 4 oz Female Dysphagia GERD (gastroesophageal reflux disease) 2015 Hypertension 2015 Influenza A Restless leg syndrome Arthritis Cataract 2018 Sleep apnea 2020 Asthma 2020 Lung disease [...] How often do you attend chur or latter-day services? More than 4 times per year 01/18/2023 Do you belong to any clubs o r organizations such as yarsani groups, unions, fraternal or athletic groups, or [...] a skilled nursing (including now)? No 01/18/2023 Social Connection and [...] any clubs o r organizations such as yarsani groups, unions, fraternal or athletic groups, or [...] any time in the past 12 m [facility], were you homeless or living in a skilled nursing (including now)? No 07/09/2025 [facility] Utilities Answer Date Recorded In the past 12 months has th e [employer], gas, oil, or water company threatened to [...] on file Legal Sex Female 1:[address] SUPERVISOR Gender Identity Not on file [...] Read Routine (OP Routine) 12/26/2024 7:47 AM [address] SUPERVISOR Visit for screening mammogram COLONOSCOPY 04/22/2022 7:32 [...] F with given history of: Osteoporosis screening [employer] Developer/Model: [employer] (S/N 27517) Facility LSC value of 0.022 for the [...] Josh Avalos M.D. MF: ANTOINE Report ID: [id number] Reading Location: [address] Note Josh Avalos MD - 07/24/2025 EXAM DESCRIPTION: DEXA AXIAL SKELETON BONE DENSITY 1 OR MORE SITES REASON FOR STUDY: 70 y/o year old F with given history of:Osteoporosis screening [employer] Developer/Model: [employer] Discovery SL (S/N 40688) Facility LSC value of 0.022 for the [...] Josh Avalos M.D. MF: ANTOINE Report ID: [id number] Reading Location: [place] [address] Alhaji Payan MD [facility] DXA PROCEDURES Final R esult * Screening Mammogram Bilateral W Hector (12/26/2024 7:47 AM [address]PERATOR [address] SUPERVISOR) Anatomical Region Laterality Modality Breast Bilateral Mammography 12/26/2024 8:[address] SUPERVISOR Impressions 12/26/2024 8:[address] SUPERVISOR No evidence of malignancy in either breast. FINAL ASSESSMENT: BI-RADS Category 2: Benign. RECOMMENDATION: Recommend return for annual screening mammogram in 12 months. Electronically signed by: Dane Purdy M.D. Narrative 12/26/2024 8:[address] SUPERVISOR EXAMINATION: BILATERAL SCREENING MAMMOGRAM COMPARISON: 12/08/2022, 11/08/2022, 10/26/2021, 10/20/2020 TECHNIQUE: Full-field 2D and digital breast tomosynthesis (DBT) images were obtained. CAD was utilized. BREAST PARENCHYMAL COMPOSITION: There are scattered areas of fibroglandular density. FINDINGS: There are benign bilateral breast calcifications. There is no suspicious mass, calcification, or distortion in either breast. There has been no suspicious interval change. Alhaji Payan MD [facility] MAMMO PROCEDURES Final Result * COLONOSCOPY (04/22/2022 7:32 AM CDT) Anatomical Region Laterality Modality Other Narrative Procedure Note Jaciel Mott MD - 04/22/2022 7:32 AM CDT [facility] Patient Name: Gabbie Chris Procedure Date: 04/22/2022 7:32 AM Date of : 1955 Admit Type: Outpatient Age: 66 Gender: Female Attending MD: Jaciel Mott M.D. Room: [facility] ENDOSCOPY ROOM 2 Note Status: [...] scope was passed under direct vision. TheColonoscope CF-[id number] was introduced through the anus and advanced [...] history of colonic polyps CPT copyright 2020 [employer]. All rights reserved. The codes documented in this report are preliminary and upon toll testboard worker reviewmay be revised to meet current compliance requirements. Recognized by the [employer] for promoting quality in endoscopy us Jaciel Mott MD ENDOSCOPY PROCEDURES Final Re sult * Hepatitis C antibody (02/05/2019 7:21 AM CDT) Hep C Ab Negative Negative [facility] ([place]) Comment:Testing performed by : [facility], [address] [place] [address], [place]., [address] Blood specimen (specimen) 02/05/2019 7:21 AM CDT 02/05/2019 11:10 AM CDT Narrative [facility] - 02/05/2019 11:58 AM CDT Torito Gonzalez MD LAB MICROBIOLOGY - GENERAL ORDERABLES Final Result [facility]) [address] [facility] Department [place] [address] from Last 3 Months or Most Recently Relevant to Health Maintenance Insurance MEDICARE [facility] MEDICARE [place] [facility] [place] MEDICARE Advance Directives For more information, please contact: [phone] * Full Code (Latest Code Status on [...] 10:37 AM 01/15/2019 10:37 AM Care Teams Obstetrics Nurse Practitioner Relationship Specialty Start Date End Date Torito Gonzalez MD PCP - General 02/25/17 [place] [id number] [address] Consulting Physician Pulmonary Disease 01/30/24 Vitaly Esquivel MD [address] [place] [address] Consulting Physician Family Medicine 07/11/25
--- OUTSIDE RECORDS SUMMARY | 2025-11-12 18:19 | XMS_ITS | Encounter Summary ---
Author Organization [facility] Address [address] [place] [address] Care Team Providers Care Regional Engineer Name Role Phone Torito Gonzalez MD Primary Care Provider [phone] Sol Lincoln MD Unavailable [phone] Vitaly Esquivel MD Unavailable [phone] Reason for Visit * Reason Onset Date Comments Scheduling Appointments 10/23/2021 no answe r to confirm mamm appointment Encounter Details Date Type Department Care Team (Late st Contact Info) Description 10/23/2021 Telephone [facility] [address] [place] [address] Maryanne Das RT Scheduling Appointments (no answer [...] on file Legal Sex Female 1:11 AM COMMUNICATIONS ANALYST Gender Identity Not on file Sexual Orientation Not on file documented as of this encounter Plan of Treatment Not on file documented as of this encounter Visit Diagnoses Not on filedocumented in this encounter Additional Health Concerns Infection Onset Date Last Indicated Resolved Time COVID: Suspected 07/08/2025 07/08/2025 07/08/2025 5:02 PM CDT documented as of this encounter Care Teams Regional Engineer Relationship Specialty Start Date End Date Torito Gonzalez MD PCP - General 02/25/17 [place] [id number] [address] Consulting Physician Pulmonary Disease 01/30/24 Vitaly Esquivel MD [address] [place] [address] Consulting Physician Family Medicine 07/11/25 documented as of this encounter
--- OUTSIDE RECORDS SUMMARY | 2025-11-12 18:19 | XMS_ITS | Clinical Summary ---
Author Organization [facility] [place] Address [address] [place] [address] Phone Care Team Providers Care Stuffed Casing Tier Name Role Phone Torito Gonzalez MD [...] Encounters Date Type Department Care Team Description 11/12/2025 Nurse Triage [facility] Call [facility] [address] [place] [address] Torito Gonzalez MD Advice Only; Shortness of Breath 09/19/2025 9:00 AM CDT Office Visit [facility] [place] [address] [place] [address] Torito Gonzalez MD Sciatica of right side (Primary Dx); Dysphagia, unspecified type Discharge Disposition: Discharged to home or Selfcare 09/19/2025 Travel 09/11/2025 Refill [facility] - [facility] [place] [address] [place] [phone] Aneta Riley, ZANDRA Medication Refill 08/29/2025 8:01 AM CDT - 08/29/2025 11:59 PM CDT Hospital Encounter [facility] Diagnostic Radiology [address] [place] [address] Torito Gonzalez MD Discharge Disposition: Discharged to home or Selfcare 08/29/2025 Results Follow-Up [facility] [place] [address] [place] [address] Torito Gonzalez MD XR ESOPHAGRAM 08/27/2025 Travel 08/22/2025 Refill [facility] [place] [address] [place] [address] Aneta Riley, [facility] Medication Refill 08/20/2025 8:00 AM CDT Office Visit [facility] [place] [address] [place] [address] Torito Gonzalez MD Essential (primary) hypertension (Primary Dx); Dysphagia, unspecified type; Chronic right hip pain; Chronic right-sided low back pain without sciatica Discharge Disposition: Discharged to home or Selfcare 08/20/2025 Travel from Last 3 Months Immunizations Immunization Administration Dates Next Due Covid-19, Mrna, Lnp-s, Pf, 30 Mcg/0.3 Ml Dose (P fizer) 02/24/2021,02/03/2021 Influenza Vaccine greater than 3 yrs 09/11/2024 Influenza Vaccine, Quadrivalent, PF 09/14/2022,1 Influenza, High-dose, Quadrivalent 09/17/2021 Influenza, Quadrivalent, Adjuvanted 08/17/2023 Pneumococcal conjugate PCV20 , polysaccharide [id number] conjugate, adjuvant, PF 10/07/2022 Family History Medical [...] drink = 0.6 oz pur e alcohol) [facility] Utilities Answer Date Recorded In the past 12 months has [email or web address], gas, oil, or water [employer] threatened to shut off services in your [...] How often do you attend chur or denominational services? More than 4 times [...] Total Score - Questions 1-9 0 01/28 [facility] Occupat ional Health - Occupational [...] a long-term (including now)? Patient declined 11/16/2023 Housing Stability [...] any time in the past 12 m [facility], were you homeless or living in a long-term (including now)? No 02/25/2025 Education Answer Date Recorded What is the highest level of school you have completed or the highest degree you have received? Master's degree (e.g., MA, MS, Nathalia, MEd, DRILLING INSPECTOR, VANESSA) 02/10/2023 Sexually Active Control Partners [...] st Contact Info) Description 01/15/2026 8:40 AM SQUASH CENTRE MANAGER Office Visit [facility] [place] [address] [place] [phone] Torito Gonzalez MD [address] [place] [address] Health Maintenance Due Date Last Done Comments [...] complete this topic Human Papillomavirus (HPV) Immunization (No Doses Required) Completed Medicare Initial AWV [id number] Discontinued Meningococcal Immunization (ACWY) Aged Out No longer eligible based on patient's age to complete this topic Rotavirus Immunization Aged Out No lo nger eligible based on patient's age to complete this topic Zoster Immunization Discontinued Procedures Procedure Name Priority Date/Time Associated Diagnosis Comments PROTIME (PT) (PROTHROMBIN TIME) 10/27/2025 12:00 AM SQUASH CENTRE MANAGER APTT (PTT) 10/27/2025 12:00 AM SQUASH CENTRE MANAGER LIPASE 10/27/2025 12:00 AM SQUASH CENTRE MANAGER TROPONIN I (TRP I) 10/27/2025 12 :00 AM SQUASH CENTRE MANAGER COMPLETE BLOOD COUNT (CBC) WITH DIFF 10/27/2025 12:00 AM SQUASH CENTRE MANAGER D-DIMER 10/27/2025 12:00 AM SQUASH CENTRE MANAGER CMP (COMPREHENSIVE METABOLIC PANEL) 10/27/2025 12:00 AM SQUASH CENTRE MANAGER CTA GENERIC 10/27/2025 12:00 AM SQUASH CENTRE MANAGER XR - CHEST 10/27/2025 12:00 AM SQUASH CENTRE MANAGER RESPIRATORY SYNCYTIAL VIRUS BY MOLECULAR 10/27/2025 12:00 AM SQUASH CENTRE MANAGER INFLUENZA TEST 10/27/2025 12:00 AM SQUASH CENTRE MANAGER SARS-COV-2 BY MOLECULAR 10/27/2025 12:00 AM SQUASH CENTRE MANAGER HM DILATED EYE EXAM 10/16/2025 1 2:00 AM SQUASH CENTRE MANAGER EXTERNAL PAIN REFERRAL Routine 10/15/2025 12:00 AM SQUASH CENTRE MANAGER XR ESOPHAGRAM Routine 08/29/2025 8:48 AM CDT Dysphagia, unspecified type HM COLONOSCOPY 04/22/2022 12:00 AM CDT MAMMOGRAM BILATERAL GENERIC 10/26/2021 12:00 AM SQUASH CENTRE MANAGER from Last 3 Months or Most Recently Relevant to Health Maintenance Results * RESPIRATORY SYNCYTIAL VIRUS BY MOLECULAR (10/27/2025 12:00 AM SQUASH CENTRE MANAGER) 10/27/2025 us Provider Scan MICROBIOLOGY - GENERAL ORDERABLE S Final Result SCAN * INFLUENZA TEST (10/27/2025 12:00 AM SQUASH CENTRE MANAGER) 10/27/2025 us Provider Scan MICROBIOLOGY - GENERAL ORDERABLE S Final Result SCAN * XR - CHEST (10/27/2025 12:00 AM SQUASH CENTRE MANAGER) 10/27/2025 us Provider Scan IMG DIAGNOSTIC ORDERABLES Final Result Performing Organization Address [facility] de Phone Number SCAN * CTA GENERIC (10/27/2025 12:00 AM SQUASH CENTRE MANAGER) 10/27/2025 us Provider Scan IMG CT ORDERABLES Final Result Performing Organization Address [facility] de Phone Number SCAN * SARS-COV-2 BY MOLECULAR (10/27/2025 12:00 AM SQUASH CENTRE MANAGER) 10/27/2025 us Provider Scan MICROBIOLOGY - GENERAL ORDERABLE S Final Result Performing Organization Address [facility] de Phone Number SCAN * TROPONIN I (TRP I) (10/27/2025 12:00 AM SQUASH CENTRE MANAGER) 10/27/2025 us Provider Scan CHEMISTRY ORDERABLES Final Resul t Performing Organization Address [facility] de Phone Number SCAN * APTT (PTT) (10/27/2025 12:00 AM SQUASH CENTRE MANAGER) 10/27/2025 us Provider Scan HEMATOLOGY ORDERABLES Final Resu lt Performing Organization Address [facility] de Phone Number SCAN * PROTIME (PT) (PROTHROMBIN TIME) (10/27/2025 12:00 AM SQUASH CENTRE MANAGER) INR 0.9 SCAN 10/27/2025 us Provider Scan HEMATOLOGY ORDERABLES Final Resu lt Performing Organization Address [facility] de Phone Number SCAN * LIPASE (10/27/2025 12:00 AM SQUASH CENTRE MANAGER) 10/27/2025 us Provider Scan CHEMISTRY ORDERABLES Final Resul t Performing Organization Address [facility] de Phone Number SCAN * D-DIMER (10/27/2025 12:00 AM SQUASH CENTRE MANAGER) 10/27/2025 us Provider Scan HEMATOLOGY ORDERABLES Final Resu lt Performing Organization [facility] de Phone Number SCAN * CMP (COMPREHENSIVE METABOLIC PANEL) (10/27/2025 12:00 AM SQUASH CENTRE MANAGER) 10/27/2025 us Provider Scan CHEMISTRY ORDERABLES Final Resul t Performing Organization [facility] de Phone Number SCAN * COMPLETE BLOOD COUNT (CBC) WITH DIFF (10/27/2025 12:00 AM SQUASH CENTRE MANAGER) 10/27/2025 us Provider Scan HEMATOLOGY ORDERABLES Final Resu lt Performing Organization [facility] de Phone Number SCAN * HM DILATED EYE EXAM (10/16/2025 12:00 AM SQUASH CENTRE MANAGER) 10/16/2025 us Provider Scan PROCEDURE/MINOR SURGICAL ORDERAB LES Final Result Performing Organization [facility] de Phone Number SCAN * EXTERNAL PAIN REFERRAL (10/15/2025 12:00 AM SQUASH CENTRE MANAGER) 10/15/2025 us Torito Gonzalez MD OUTPT REFERRALS EXT/INT Fin al Result Performing Organization [facility] de Phone Number SCAN * XR ESOPHAGRAM (08/29/2025 8:48 AM [...] MD IMG FLUOROSCOPY ORDERABLES Final Result * HM COLONOSCOPY (04/22/2022 12:00 AM CDT) 04/22/2022 us Not On File Provider PROCEDURE/MINOR SURGICAL OR DERABLES Final Result SCAN * MAMMOGRAM BILATERAL MISCELLANEOUS (10/26/2021 12:00 AM SQUASH CENTRE MANAGER) 10/26/2021 us Not On File Provider IMG MAMMO ORDERABLES Final Result Performing Organization Address City/State/[facility] Co de Phone Number SCAN from Last 3 Months or Most Recently Relevant to Health Maintenance Insurance MEDICARE [facility] Care Teams Stuffed Casing Tier Relationship Specialty Start Date End Date Torito Gonzalez MD PCP - General Internal Medicine 02/01/20 Guille Collier MD [address] [place] [address] Consulting Physician Pulmonary Disease 12/06/22
--- OUTSIDE RECORDS SUMMARY | 2025-11-12 18:19 | XMS_ITS | Encounter Summary ---
Author Organization [facility] Address [address] [place] [address] Phone Care Team Providers Care Body Trimmer Name Role Phone Torito Gonzalez MD Primary Care Provider [phone] Guille Collier MD Unavailable Reason for Visit * Reason Onset Date Comments Advice Only 11/12/2025 Shortness of Breath 11/12/2025 Encounter Details Date Type Department Care Team (Late st Contact Info) Description 11/12/2025 Nurse Triage [facility] [address] [place] [address] Torito Gonzalez MD [address] [place] [address] Advice Only; Shortness of Breath Social History Tobacco Use Types Packs/Day Years Used Date Smoking Tobacco: Former Cigarettes 0 Q uit: 12/07/2009 Passive Smoke Exposure: Past Smokeless Tobacco: Never Alcohol Use Standard Drinks/Week Comments Not Currently 0 (1 standard drink = 0.6 oz pur e alcohol) [facility] Utilities Answer Date Recorded In the past 12 months has [employer], gas, oil, or water company threatened to [...] often do you attend chur ch or mormonism services? More than 4 times [...] Score - Questions 1-9 0 01/28 [facility] of Occupat ional Health - Occupational Stress [...] any time in the past 12 m [facility], were you homeless or living in a correction (including now)? No 02/25/2025 Education Answer Date Recorded What is the highest level of school you have completed or the highest degree you have received? Master's degree (e.g., MA, MS, Nathalia, MEd, PROCEDURE MANAGER, VANESSA) 02/10/2023 Sexually Active Control Partners Comments Not Currently Comments No Sex and Gender Information Value Date Recorded Sex Assigned at Not on file Legal Sex Female 10:44 PM CDT Gender Identity Not on file Sexual Orientation Not on file documented as of this encounter Miscellaneous Notes * Telephone Encounter - Beverly Avilez RN - 11/12/2025 12:15 PM CST SITUATION: 70 y.o. with shortness of breath BACKGROUND: patient contacting PCP office. Per chart review, last office visit 09/19/25 ED bronchitis 7 days Levaquin, steroids 10/27/25 ASSESSMENT: Symptom Description / Location: Shortness of breath-moderate Audible wheezing over phone Oxygen level 88-93% via pulse ox History of asthma and copd Rattle in chest Productive cough-thick milky white Pressure between breast-constant mild. This pressure did clear up while on steroids, but returned after medication was completed. Treatment / Response: slightly improved the pressure in her chest while on steroids, but has returned now completing medications. with some relief. RECOMMENDATION: Caller agreeable to highest disposition listed: Go To ED/UCC Now (or to office now per Practice Policy), See More Appropriate Guideline, Go to ED Now. Care advice provided per triage guideline. Caller verbalized understanding. Reason for Disposition: MODERATE difficulty breathing (e.g., speaks in phrases, SOB even at rest, pulse 100-120) of new-onset or worse than normal HIstory of COPD and breathing decreased from baseline MODERATE difficulty breathing (e.g., speaks in phrases, SOB even at rest) and worse than normal . Protocols Used: COPD Oxygen Monitoring and Mdadcmb-R-FC Breathing [id number] See care advice and disposition for Guideline. First positive answer recorded, all responses to prior questions were negative. If symptoms increase, change or if new symptoms develop, call your health care provider or call back. Recommendations were based on caller information and is not a diagnosis. Verified and reviewed all triage information with caller. CHBOARD WIRE WORKER HELPER * Telephone Encounter - Bibi Merino - 11/12/2025 12:14 PM CST Symptom: Breathing Trouble Outcome: Warm transfer to an emergent RN NOW! Reason: Trouble breathing through the mouth The caller accepted this outcome. CHBOARD WIRE WORKER HELPER documented in this encounter Plan of Treatment Upcoming Encounters Date Type Department Care Team (Late st Contact Info) Description 01/15/2026 8:40 AM SWITCHBOARD WIRE WORKER HELPER Office Visit [facility] - [facility] - [place] [address] [place] [phone] Torito Gonzalez MD [address] [place] [address] documented as of this encounter Visit Diagnoses Not on filedocumented in this encounter Additional Health Concerns Assessment Noted Time PHQ-9 Depression Total Score: 0 02/26/20 25 8:15 AM CDT documented as of this encounter Care Teams Body Trimmer Relationship Specialty Start Date End Date Torito Gonzalez MD PCP - General Internal Medicine 02/01/20 Guille Collier MD [address] [place] [phone] Consulting Physician Pulmonary Disease 12/06/22 documented as of this encounter
[2025-11-12 18:27] LABS: Alanine Aminotransferase 28 U/L (6-35); Albumin Level 4.7 g/dL (3.5-5.1); Alkaline Phosphatase 92 U/L (38-126); Anion Gap 12 mmol/L (4-12); Aspartate Amino Transferase 41 U/L (14-36); Bilirubin,Total 0.3 mg/dL (0.2-1.3); Blood Urea Nitrogen 24 mg/dL (7-17); Calcium 9.5 mg/dL (8.4-10.2); Carbon Dioxide 23 mmol/L (22-30); Chloride 109 mmol/L (98-107); Estimated Glomerular Filt Rate > 60; Glucose 98 mg/dL (65-110); Osmolality Calculated 302 mOsm/kg (285-295); Potassium 3.7 mmol/L (3.4-5.0); Sodium 144 mmol/L (137-145); Total Protein 8.1 g/dL (6.3-8.2)
[2025-11-12 18:36] LABS: NT Pro B Type Natriuretic Pept < 20 pg/mL (19.9-100)
[2025-11-12 18:39] LABS: Troponin I < 0.012 ng/mL (0.000-0.034)
--- NOTE | 2025-11-12 19:10 | PC.NURSE ---
This RN called in room by patient requesting update. Patient was updated on CT order and needing an IV placed. Patient stated that she just had a CT done 10/28 here and wasnt sure if it was completely necessary to have another one. Patient was educated on process and on different causes for her current condition. Patient requesting ERP at this time. ERP updated and will speak with patient.
[2025-11-12] MEDS: IPRATROPIUM 0.5 MG/ALBUTEROL SULFATE 2.5 MG (BASE) AMPUL.NEB 3 ML INHALATION (19:30)
== END 2025-11-12 21:02 | disposition home or self-care (01) ==
PROVIDERS: Emergency Provider Emergency Medicine; PCP Internal Medicine
DX: J44.1 Chronic obstructive pulmonary disease with (acute) exacerbation (principal); I10 Essential (primary) hypertension; Z87.891 Personal history of nicotine dependence
CPT/HCPCS: 36415; 71045; 71275; 80053; 83605; 83880; 84484; 85025; 85380; 93005; 94640; 96374; 99284; J2919; Q9967